=== PATIENT | male | born 1955 | race Caucasian/White ===

== ENCOUNTER 2025-09-23 20:44 | Outpatient (BNV) | payer MEDICARE, MEDICAID, SELFPAY | END 2025-09-26 14:52 | PROVIDERS: Admitting Provider Psychiatry & Neurology Psychiatry; PCP Internal Medicine; Visit Provider Internal Medicine Cardiovascular Disease | DX: Z13.6 Encounter for screening for cardiovascular disorders (principal); Z86.79 Personal history of other diseases of the circulatory system | CPT/HCPCS: 93010 ==

== ENCOUNTER 2025-09-23 20:44 | Outpatient (BNV) | payer MEDICARE, MEDICAID, SELFPAY | END 2025-09-25 08:00 | PROVIDERS: Admitting Provider Psychiatry & Neurology Psychiatry; Visit Provider Radiology Diagnostic Radiology | DX: R09.89 Other specified symptoms and signs involving the circulatory and respiratory systems (principal) | CPT/HCPCS: 71046 ==

== ENCOUNTER 2025-09-23 20:44 | Inpatient (IN) | payer MEDICARE, MEDICAID, SELFPAY ==
--- OUTSIDE RECORDS SUMMARY | 2025-02-27 17:30 | XMS_ITS ---
Author Organization [facility] Address [address] [place], [place] [phone] Care Team Providers Care Blow Machine Tender Starch Spraying Name Role Phone DR Ilya Gusman Primary Care Provider Mitzi Amado, Anit Unavailable [phone] REASON FOR VISIT SS NO PA NEEDED [...] Active Encounters Encounter Location Date Provider Diagnosis [facility] [address] [place], [place] [phone] 02/27/2025 Nataliit Aneudy Hypersomnia, unspecified G47.10 ; [...] Adolfo HANNON JDOB:[birth year] (70 yo M)Acc No.[id number]:02/27/2025 Progress Notes Patient: Adolfo MORIN Provider: Leonel Amado MD, LUIS ARMANDO, FACS :1955 A ge:69 Y S ex:Male Date:02/27/2025 Address:[address] [place] [address] Pcp:DR Ilya Gusman Subjective: * Chief Complaints: [...] Electronic signature of Aaron Amado MD on 09/23/2025 at 09:01 PM EDT Sign off status: Pending * Provider: Leonel Amado MD, LUIS ARMANDO, FACS Date: 0 02/27/2025 Generated for Hialry davis/Ayo/Juanis on: 1 09:01 PM EDT
--- OUTSIDE RECORDS SUMMARY | 2025-05-07 17:30 | XMS_ITS ---
Author Organization [facility] Address [address] [place], [place] [phone] Care Team Providers Care Medical Educator Name Role Phone DR Ilya Gusman Primary Care Provider Aaron Ponce Unavailable [phone] REASON FOR VISIT CPAP INTO BIPAP NO PA NEEDED Encounters Encounter Location Date Provider Diagnosis [facility] [address] [place], [place] [phone] 05/07/2025 Aaron Amado Plan Of Treatment No Information Progress Notes * Adolfo HANNONDOB:[birth year] (70 yo M)Acc No.[id number]:05/07/2025 Progress Notes Patient: Adolfo MORIN Eliza Provider: Leonel Amado MD, LUIS ARMANDO, FACS :1955 A ge:69 Y S ex:Male Date:05/07/2025 Address:[address] [place], [place] [phone] Pcp:DR Ilya Gusman Subjective: * Chief Complaints: * 1 . CPAP INTO BIPAP NO PA NEEDED. * Medical History: Objective: * Vitals: Assessment: Plan: * Treatment: * Images: * Electronic signature of Aaron Amado MD on 09/23/2025 at 08:51 PM EDT Sign off status: Pending * Provider: Leonel Amado MD, LUIS ARMANDO, FACS Date: 0 05/07/2025 Generated for Printi ng/Fachrystalg/eTransmitting on: 1 08:51 PM EDT
--- OUTSIDE RECORDS SUMMARY | 2025-06-18 16:30 | XMS_ITS ---
Author Organization [facility] Address [address] [place], [place] [phone] Care Team Providers Care Airline Transport Pilot Name Role Phone DR Ilya Gusman Primary Care Provider Mitzi Amado, Anit Unavailable [phone] REASON FOR VISIT CPAP INTO BIPAP NO [...] Active Encounters Encounter Location Date Provider Diagnosis [facility] [address] [place], [place] [phone] 06/18/2025 Nataliit Aneuyd Obstructive sleep ap chinyere (adult) (pediatric) G47.33 [...] Adolfo HANNON JDOB:[birth year] (70 yo M)Acc No.[id number]:06/18/2025 Progress Notes Patient: Adolfo MORIN Provider: Leonel Amado MD, LUIS ARMANDO, FACS :1955 A ge:69 Y S ex:Male Date:06/18/2025 Address:[address] [place] [address] Pcp:DR Ilya Gusman Subjective: * Chief Complaints: [...] of Aaron Amado MD on 09/23/2025 at 08:54 PM EDT Sign off status: Pending * Provider: Leonel Amado MD, LUIS ARMANDO, FACS Date: 0 06/18/2025 Generated for Hilary davis/Ayo/Devanitting on: 1 08:54 PM EDT
--- OUTSIDE RECORDS SUMMARY | 2025-07-07 07:10 | XMS_ITS ---
Author Organization [facility] Address [address] [place] [phone] Care Team Providers Care Test Operator Name Role Phone DR Ilya Gusman Primary Care Provider Aaron Ponce Unavailable [phone] REEVES RESULTS Encounters Encounter Location Date Provider Diagnosis [facility] [address] [phone] 07/07/2025 Aaron Amado Plan Of Treatment No Information Progress Notes * Adolfo HANNONDOB:[birth year] (70 yo M)Acc No.[id number]:07/07/2025 Progress Notes Patient: Adolfo MORIN Provider: Leonel Amado MD, LUIS ARMANDO, FACS :1955 A ge:69 Y S ex:Male Date:07/07/2025 Address:[address] [place], [place] [phone] Pcp:DR Ilya Gusman Subjective: * Chief Complaints: * [address] REEVES RESULTS. * Medical History: Objective: * Vitals: Assessment: Plan: * Treatment: * Images: * Electronic signature of Aaron Amado MD on 09/23/2025 at 08:55 PM EDT Sign off status: Pending * Provider: Leonel Amado MD, LUIS ARMANDO, FACS Date: 0 07/07/2025 Generated for Printi ng/Fachrystalg/eTransmitting on: 1 08:55 PM EDT
--- OUTSIDE RECORDS SUMMARY | 2025-08-26 17:30 | XMS_ITS ---
Author Organization [facility] Address [address] [place], [place] [phone] Care Team Providers Care Pca Name Role Phone DR Ilya Gusman Primary Care Provider Mitzi Amado, Anit Unavailable [phone] REASON FOR VISIT ASV SS Encounters Encounter Location Date Provider Diagnosis [facility] [address] [place], [place] [phone] 08/26/2025 Nataliit Aneudy Primary central slee p apnea G47.31 Assessments Encounter Date Diagnosis (ICD Code) Assessment Notes Treatment Notes Treatment Clinical Notes Section Notes 08/26/2025 Primary central sleep apnea (ICD-10 - G47.31) Plan Of Treatment No Information Progress Notes * Adolfo HANNONDOB:[birth year] (70 yo M)Acc No.[id number]:08/26/2025 Progress Notes Patient: [place] ORELLANA Adolfo Kay Provider: Leonel Amado MD, LUIS ARMANDO, FACS :1955 A ge:70 Y S ex:Male Date:08/26/2025 Address:[address] [place] [address] Pcp:DR Ilya Gusman Subjective: * Chief Complaints: * 1 . ASV SS. * Medical History: Objective: * Vitals: Assessment: * Assessment: 1. P rimary central sleep apnea - G47.31 (Primary) Plan: * Treatment: * Procedure Codes: 9 5811 POLYSOMNOGRAPHY W/CPAP, Modifiers: 52 * Images: * Electronic signature of Aaron Amado MD on 09/23/2025 at 08:56 PM EDT Sign off status: Pending * Provider: Leonel Amado MD, LUIS ARMANDO, FACS Date: Generated for Hilary davis/Ayo/Devanitting on: 08:56 PM EDT
--- OUTSIDE RECORDS SUMMARY | 2025-09-08 06:10 | XMS_ITS ---
Author Organization [facility] Address [address] [place], [place] [id number] Care Team Providers Care Security Expert Name Role Phone DR Ilya Gusman Primary Care Provider Mitzi Amado, Anit Unavailable [phone] Allergies Allergen (clinical drug ingredient) Drug/Non Drug [...] 09/08/2025 Encounters Encounter Location Date Provider Diagnosis [facility] [address] [phone] 09/08/2025 Aaron Amado Obstructive sleep apnea (adult) [...] 40.5 I will review with our sleep tanbark laborer if this patient would qualify for remede procedure versus inspire. Dictated by Misael Gill PA-C 09/08/2025 Primary central sleep apnea (ICD-10 - G47.31) The patient's recent ASV titration was Inconclusive as the patient was unable to tolerate the titration. Given the patient had mixed apnea on his original polysomnogram with a central index of 40.5 I will review with our sleep tanbark laborer if this patient would qualify for remede procedure versus inspire. Dictated by Misael Gill PA-C 09/08/2025 Other insomnia (ICD-10 - G47.09) The patient's recent ASV titration was Inconclusive as the patient was unable to tolerate the titration. Given the patient had mixed apnea on his original polysomnogram with a central index of 40.5 I will review with our sleep tanbark laborer if this patient would qualify for remede procedure versus inspire. Dictated by Misael Gill PA-C 09/08/2025 Other heart failure (ICD-10 - I50.89) The patient's recent ASV titration was Inconclusive as the patient was unable to tolerate the titration. Given the patient had mixed apnea on his original polysomnogram with a central index of 40.5 I will review with our sleep tanbark laborer if this patient would qualify for remede procedure versus inspire. Dictated by Misael Jairo PA-C Plan Of Treatment Next Appt Details Follow Up: prn, Reason: Progress Notes * Adolfo HANNON JDOB:[birth year] (70 yo M)Acc No.[id number]:09/08/2025 Progress Notes Patient: Adolfo MORIN Provider: Leonel Amado MD, LUIS ARMANDO, FACS :1955 A ge:70 Y S ex:Male Date:09/08/2025 Address:[address] [place] [address] Pcp:DR Ilya Gusman Subjective: * Chief Complaints: [...] 40.5 I will review with our sleep tanbark laborer if this patient would qualify for [...] FACS Date: Generated for Hilary davis/Ayo/eTransmitting on: 08:54 PM EDT History and Physical Notes * HPI (History [...]
--- OUTSIDE RECORDS SUMMARY | 2025-09-22 10:28 | XMS_ITS | Encounter Summary ---
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 Discontinued Start Date/Time: 09/23/25 1325 Number of Occurrences: Until Specified Order Questions: Select Supplements: Glucerna Shake Vanilla Supplement Frequency 2 times per day at breakfast and lunch Nutrition supplements NSA Magic Cup Vanilla; 1 time per day at dinner: Until Discontinued Frequency: Until Discontinued Start Date/Time: 09/23/25 1326 Number of Occurrences: Until Specified Order Questions: Select Supplements: NSA Magic Cup Vanilla Supplement Frequency 1 time per day at dinner Allergies[1] PMH: Past Medical History[2] Last TPN Order: TPN Medication Recent History (Show up to 1 orders; newest on the left.) None Anthropometrics: Height: 175.3 cm (5' 9.02 ) Actual Weight: 81.6 kg (179 lb 14.3 oz) Weight Method: (unknown method) BMI (Calculated): 26.6 [place] Body Weight (Calc): 72.6 % IBW: 112 % Weight Change: Per EMR, weight down 5.6 kg/6% unintentional weight loss from 03/11/25 to 09/23/25 (6months). Usual Body Weight: (Pt reports was 225 lb (111.3 kg) in 11/2023. Pt reports lost 45 lb, dropping to 180 lb (81.8 kg).) Weight Tax Economist Admission: 0 % Weight (Last 10) 09/22/2025 1004 Weight: 81.6 kg (180 lb) Wt Readings from Last 3 Encounters: 09/23/25 81.6 kg (179 lb 14.3 oz) 09/03/25 81.6 kg (180 lb) 08/16/25 81.6 kg (180 lb) Per EMR 05/04/25: 86.6 kg (190 lb 14.7 oz--hosp admission) 03/11/25: 87.2 kg (190 lb--ED) 09/21/24: 88.5 kg (195 lb--ED) 12/11/23: 102 kg (224 lb--clinical encounter) Per BI OMR: 09/08/20: 93.1 kg (205 lb) Estimated Nutrition Needs: Estimated Energy Needs Energy Equation: kcal/kg (range) Weight Used for Energy Calculation: 81.6 kg (179 lb 14.3 oz) (Actual BW) Calorie Ranges (kcal/kg): 25-30 (weight loss history) Calorie Low End (kcal/day): 2039 Calorie High End (kcal/day): [address] Equation (Overweight or Obese Patients): 1577 Estimated Protein Needs Weight Used for Protein Calculation: 72.8 kg (160 lb 6.9 oz) ([place] BW) Protein Single Value: 1.3 Protein Single Calc (g/day): 95 g/day Fluid Needs Weight Used for Fluid Calculation: 75 kg (165 lb 4.5 oz) (Adjusted BW due to overweight) Fluid Single Value: 30 Fluid Single Calc (mL/day): 2249 Pertinent Labs: Lab Results Component Value Date NA 140 09/23/2025 K 3.5 09/23/2025 CL 108 09/23/2025 CO2 23 (L) 09/23/2025 BUN 16 09/23/2025 CREATININE 0.70 09/23/2025 GLUCOSE 99 09/23/2025 CALCIUM 8.6 09/23/2025 PHOS 3.7 08/17/2025 MG 2.0 09/22/2025 HGBA1C 5.5 09/23/2025 TRIG 86 08/17/2025 Scheduled Medications: Scheduled Meds:Scheduled Medications[3] Continuous Infusions:Infusions Meds[4] PRN Meds:.PRN Medications[5] GI: Last BM Date: 09/22/25 Gastrointestinal (WDL): Within Defined Limits Skin: 09/23/25: No documented pressure injuries on flowsheet. Edema: Peripheral Vascular Peripheral Vascular (WDL): Within Defined Limits Peripheral Vascular (WDL): Within Defined Limits Nutrition History: Diet Recall?: Yes This commercial lines underwriter met with patient at bedside. Pt reports a very poor appetite for greater than a year, some times not eating at all. Pt reports he has been enjoying fruit. Pt reports 45 lb weight loss since November 2023. Pt denies any food allergies. Pt does not add salt to foods. Reports lost 100 lbs several years ago and has been off Metformin for the past 10 years for his diabetes. Reports his mostrecent HGBA1C at 5.5. Pt does not check Glucose at home. Breakfast: skips Lunch: 1 Ensure or Protein drink Snack: peaches, apple, banana Dinner: (will only consume 3-4 times/wk) frozen meal or frozen pizza Beverages: Ensure, water, cranberry juice, does not drink milk Home Nutrition Support?: None Based on diet recall suspect pt's PO intake has met less than 50% of estimated needs for greater than 1 month prior to admission. Inpatient Data: General Intake: Other (Comment) (Incomplete meal data. Pt reports consumed 100% of cheese omelet, Beninese muffin and coffee at breakfast this morning, 09/23.) Dentition: Dentition: Adequate Nutrition Focused Physical Exam: (Per visual finding, remainder of pt's body covered at the time of this commercial lines underwriter's visit.) Muscle Depletion Moravian region (Temporalis muscle): Well Nourished Fat Depletion Orbital Region (Orbital Fat Pads): Well Nourished Cheek Region (Buccal Fat Pads): Well Nourished PES Statement: Diagnosis 1: Problem (1): Predicted inadequate energy intake Related to: acute illness, chronic illness, poor appetite as evidenced by: diet recall/history, other (comment) (Pt reports very poor PO intake for greater than 1 year, some times not eating at all. Suspect pt has met less than 50% of estimated energy needsfor greater than 1 month.) Diagnosis 2: Problem (2): Unintended weight loss Related to: poor appetite, chronic illness as evidenced by: other (comment) (Pt reports poor PO intake with 45 lb weight loss since November 2023.) Diagnosis 3: Interventions and Coordination of Care: Meals and Snacks: Encourage oral intake as able, Encourage high protein/high calorie foods, Other (comment) (Consider adding 2 gram Sodium diet to currrent diet order given hx of CHF. Pt does not addsalt to his foods.) Vitamin and Mineral Recommendations: other (comment) (Pt receiving Iron, Folic Acid, Thiamine and Vitamin D3. Consider MVI with minerals due to very poor PO intake prior to admission.) Coordination of Care: Recommend obtain daily weights, Discussed with nursing Supplements Recommended Oral Nutrition Supplement (1): 237 ml Vanilla Glucerna--10g protein, 100 calories per serving Oral Nutrition Supplement Frequency (1): Lunch, Dinner Recommended Oral Nutrition Supplement (2): Vanilla No Sugar Added Magic Cup ice cream--9g protein, 280 calories per serving Oral Nutrition Supplement Frequency (2): Dinner Recommended Oral Nutrition Supplement (3): Sugar-Free Grape Gelaten--20g protein, 80 calories per serving Oral Nutrition Supplement Frequency (3): Dinner Monitoring/Evaluation: PO intake, supplement intake, weight, skin status, electrolyte and renal profile, glucose, acceptance of supplementation Follow up Date: 09/29/25 Signed by: Pao Lopez RD 09/23/25 1:31 PM [1] Allergies Allergen Reactions Sulfa (Sulfonamide Antibiotics) Hives Bee Venom Protein (Honey Bee) Swelling Fluoxetine Hallucinations and Mental Status Change Identified As: From Prozac Hallucinating Sulfamethoxazole-Trimethoprim Hives and Unknown Venom-Yellow Jacket Swelling [2] Past Medical History: Diagnosis Date Alcohol abuse, uncomplicated 04/19/2021 Atrial fibrillation ([facility]) Bipolar disorder, unspecified ([facility]) 06/27/2021 Cancer ([facility]) PROSTATE Chronic back pain Colitis Colon polyp Coronary artery disease Hemorrhage of anus and rectum 05/10/2024 Hyperlipidemia, unspecified 10/24/2020 Hypertension Opioid dependence with current use ([facility]) 04/18/2021 Opioid dependence, uncomplicated ([facility]) 02/25/2023 Other psychoactive substance use, unspecified with withdrawal, unspecified ([facility]) 01/09/2024 Other pulmonary embolism without acute cor pulmonale ([facility]) 04/06/2024 ICD-10 Qualified Code(s): I26.99 - Other pulmonary embolism without acute cor pulmonale; Acute cor pulmonale presence - without acute cor pulmonale; Chronicity - acute; Pulmonary embolism type - unspecified; Pulmonary edema with congestive heart failure ([facility]) 03/09/2025 RLS (restless legs syndrome) Sleep apnea, unspecified 10/03/2020 Supraventricular tachycardia 10/03/2020 Type 2 diabetes mellitus without complications ([facility]) 09/15/2020 [3] acetaminophen, 650 mg, Oral, Q6H NEDA apixaban, 5 mg, Oral, BID atorvaSTATin, 40 mg, Oral, QHS baclofen, 5 mg, Oral, TID cholecalciferol, 1,000 Units, Oral, Daily diltiazem, 240 mg, Oral, QAM DULoxetine, 60 mg, Oral, BID ferrous sulfate, 325 mg, Oral, Daily with breakfast folic acid, 1 mg, Oral, Daily insulin lispro, 0-10 Units, Subcutaneous, QHS (2200) insulin lispro, 0-12 Units, Subcutaneous, TID (0800,1200,1700) isosorbide mononitrate ER, 30 mg, Oral, Daily lidocaine, 1 patch, Topical, Q24H pantoprazole, 40 mg, Oral, Daily before breakfast sodium chloride, 3 mL, Intravenous, Q12H NEDA QUEtiapine, 200 mg, Oral, BID thiamine, 100 mg, Oral, Daily [4] [5] polyethylene glycol OR bisacodyl OR bisacodyl dextrose oral gel OR dextrose 50% OR dextrose 50% OR glucagon (human recombinant) [] diazePAM FOLLOWED BY diazePAM fluticasone propionate HYDROmorphone HYDROmorphone melatonin naloxone ondansetron OR ondansetron Insert and Maintain Peripheral IV AND sodium chloride AND sodium chloride * Jade Clara [facility] - 09/22/2025 1:15 PM EDTAssociated Order(s): BEHAVIORAL HEALTH CRISIS EVALUATION Behavioral Health Crisis Consult - Initial Assessment Patient: Adolfo Zaragoza : 1955 Admit Date: 09/22/2025 Date of Consult: 09/22/2025 Time of Consult: 1:15 PM Consult Requested by: Kg Mccollum MD Reason for Consult: Reason for Consult: depression and alcohol use Chief Complaint Patient presents with Dizziness History of Present Illness: Patient is a 70 y.o. male with past medical and psychiatric history as listed who presented to the hospital on 09/22/2025 for Dizziness. Behavioral Health is consulted forassessment. Adolfo reports that he came to the hospital because he has been thinking about suicide and because he knows when he needs help. He reports that main precipitant for his distress is the loss of a friend (his cousin's ) to suicide two days ago. This person reportedly ended her life while she was in a hospital in [place] and it was very unexpected. Mahendra goes on to say that he has had [place] otherdeaths in [place] over the last two months. Its hitting me more and more. I have lost a lot of people. Last night, it hit me and took me out of nowhere. Mahendra says he has attempted suicide twice in the past. I am only still here because they have caught me in time. Mahendra says that he has overdosed on meds once and he says that he hung self in a shower in a hospital around 2-3 years ago while medically admitted. When asked about a current plan for suicide, Mahendra says he has so many plans . He says that he was most recently thinking about overdosing. He says he has a lot of pills and could easily end his life. Mahendra reports that alcohol use has not been a recent problem for him and he says that he does not need a detox now. He admits that he has been drinking over the last couple of days since getting the bad news. I didn't drink a lot, but I was drinking. Normally, I don't drink or use drugs now. He says that drinking was a past problem, but not now. Medical History: has a past medical history of Alcohol abuse, uncomplicated (04/19/2021), Atrial fibrillation, Bipolar disorder, unspecified (06/27/2021), Cancer, Chronic back pain, Colitis, Colon polyp, Coronary artery disease, Hemorrhage of anus and rectum (05/10/2024), Hyperlipidemia, unspecified (10/24/2020), Hypertension, Opioid dependence with current use (04/18/2021), Opioid dependence, uncomplicated (02/25/2023), Other psychoactive substance use, unspecified with withdrawal, unspecified(01/09/2024), Other pulmonary embolism without acute cor pulmonale (HCC) (04/06/2024), Pulmonary edema with congestive heart failure (03/09/2025), RLS (restless legs syndrome), Sleep apnea, unspecified (10/03/2020), Supraventricular tachycardia (10/03/2020), and Type 2 diabetes mellitus without complications (HCC) (09/15/2020). has a past surgical history that includes Back surgery (Bilateral); Shoulder surgery; left ankle surgery; Tonsillectomy; Appendectomy; Colonoscopy (07/21/2025); and Brain surgery. Psychiatric History: Adolfo has been diagnosed with PTSD. Adolfo has been hospitalized many times in his life; he says he is not sure how many. Most recenttime was around ten years ago. Mahendra says that he takes Seroquel and Cymbalta prescribed by his psychiatrist at an agency he cannot recall the name of in [place]. He also has therapist, Aleida Willis, at this unknown agency in [place]. Home Medications: Prescriptions Prior to Admission[1] Seroquel and Cymbalta Current Medications: Scheduled Medications[2] Seroquel and Cymbalta Current PRN: PRN Medications[3] None now Allergies: Sulfa (sulfonamide antibiotics), Bee venom protein (honey bee), Fluoxetine, Sulfamethoxazole-trimethoprim, and Venom-yellow jacket Substance Use History Alcohol: Substance and Sexual Activity Alcohol Use Not Currently Alcohol Details Questions Responses Alcohol frequency Past regular use Alcohol method Drink Adolfo reports hx of alcohol dependence. He denies a drinking problem now, though he says that hehas been drinking over the last two days. Tobacco: reports that he has never smoked. He has never used smokeless tobacco. E-Cigarettes/Vaping Questions Responses E-Cigarette/Vaping Use Never User Passive Exposure No Counseling Given No E-Cigarette/Vaping Substances Questions Responses Nicotine No THC No CBD No Flavoring No Other No E-Cigarette/Vaping Devices Questions Responses Disposable No Pre-filled or Refillable Cartridge No Refillable Tank No Pre-filled Pod No Other: reports no history of drug use. Adolfo denies substance use. Prescription Medications: Adolfo denies abuse of prescription medications. Substances: Adolfo denies substance use. Amphetamine Details Questions Responses Amphetamine frequency Never used Barbituate Details Questions Responses Barbiturate frequency Never used Benzodiazepine Details Questions Responses Benzodiazepine frequency Never used Cannabis Details Questions Responses Cannabis frequency Never used Cocaine Details Questions Responses Cocaine frequency Never used Ecstasy Details Questions Responses Ecstasy frequency Never used Hallucinogen Details Questions Responses Hallucinogen frequency Never used Heroin Details Questions Responses Heroin frequency Never used Inhalent Details Questions Responses Inhalant frequency Never used Narcotic Details Questions Responses Narcotic frequency Never used Opiate Details Questions Responses Opiate frequency Never used PCP Details Questions Responses PCP frequency Never used Sedative Details Questions Responses Sedative frequency Never used Other Drug Details Questions Responses Other drug frequency Never used Medical and Psychiatric Consequences: Psychosocial Consequences: Social History: Mahendra lives in [place] by himself. He has no current partner. He says that his of cancer five years ago. Mahendra has two children and four grandchildren; they all live nearby. Mahendra says he is retired and not working now. 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 Mahendra says he graduated high school, and he also did some college. He denies any legal issues. No hx for Mahendra. Socioeconomic History Marital status: Adolfo is presently single. His of cancer five years ago. Employment Status: Retired Adolfo is not working now and says he is retired. History: History status: No No hx for Adolfo. Personal History: has no history on file for sexual activity. Family History: Family History[4] Did not discuss family hx with Mahendra. Physical Exam: Patient Vitals for the past 24 hrs: BP Temp Temp src Pulse Resp SpO2 Height Weight 09/22/25 1230 (!) 174/97 97.8 ??F (36.6 ??C) Oral 78 16 98 % -- -- 09/22/25 1004 (!) 173/105 99.4 ??F (37.4 ??C) Oral (!) 93 18 97 % 1.753 m (5' 9 ) 81.6 kg (180 lb) Mental Status Exam: Mental Status Exam General Appearance: Appears stated age, well-developed, appropriately groomed and no apparent distress. Level of Consciousness: Alert. Orientation: Oriented to person, place, time and situation. Attitude and Behavior: Cooperative and friendly. Eye Contact: Good eye contact. Psychomotor Activity: Normal. Speech: Normal rate, volume, rhythm, coherence and articulation. Language: Normal. Mood: Patient description of mood: depressed. Affect: Full range. Thought Process and Associations: Logical. Thought Content: Positive for suicidal ideation, suicidal plan and suicidal means. No self- injurious ideation, no homicidal ideation and not actively hallucinating. Attention Span: Appropriate. Memory: Intact recall, intact short-term and intact long-term. Fund of Knowledge: Normal. Cognition: Normal. Insight: Poor. Judgment: Poor. Labs, Imaging & Other Studies: Laboratory: Recent lab results have been reviewed by others. Results for orders placed or performed during the hospital encounter of 09/22/25 (from the past 24 hours) Comprehensive Metabolic Panel Result Value Ref Range Sodium 144 135 - 146 mmol/L Potassium 3.6 3.4 - 5.2 mmol/L Chloride 108 98 - 110 mmol/L Total CO2/Bicarbonate 21 (L) 24 - 32 mmol/L Anion Gap 15 2 - 15 mmol/L BUN 10 7 - 24 mg/dL Creatinine, Blood 0.80 0.60 - 1.30 mg/dL Glucose, Blood 117 (H) 50 - 100 mg/dL Calcium 9.5 8.5 - 10.5 mg/dL Total Protein 7.7 6.2 - 8.2 g/dL Albumin, Blood 4.6 3.4 - 5.2 g/dL AST (SGOT) 24 11 - 40 U/L ALT (SGPT) 16 7 - 40 U/L Alkaline Phosphatase 54 40 - 130 U/L Total Bilirubin 0.4 0.2 - 1.2 mg/dL Estimated GFR(CKD-EPI) 96 mL/min/BSA CBC and Differential Result Value Ref Range WBC 4.50 3.90 - 10.80 K/uL RBC 4.69 4.42 - 5.73 M/uL Hemoglobin 14.5 14.0 - 17.3 g/dL Hematocrit 41.7 40.1 - 51.0 % MCH 30.9 25.6 - 32.2 pg MCHC 34.8 32.0 - 36.0 g/dL MCV 89 83 - 96 fL RDW 14.5 (H) 11.5 - 14.0 % Platelet Count 260 154 - 369 K/uL Neutrophil 58.0 % Lymphocyte 29.8 % Monocyte 7.6 % Eosinophil 3.1 % Basophil 1.3 % Immature Granulocyte ([place], Myelo, Promyelocyte) 0.2 % Absolute Neutrophil Count 2.61 1.68 - 7.99 K/uL Absolute Immature Granulocyte ([place], Myelo, Promyelocyte) 0.01 0.00 - 0.09 K/uL Absolute Lymphocyte Count 1.34 0.66 - 4.75 K/uL Absolute Monocyte Count 0.34 0.16 - 1.40 K/uL Absolute Eosinophil Count 0.14 0.00 - 0.60 K/uL Absolute Basophil Count 0.06 0.00 - 0.32 K/uL Gold Top Result Value Ref Range Gold Top Tube Received Magnesium Result Value Ref Range Magnesium, Blood 2.0 1.6 - 2.6 mg/dL Lipase Result Value Ref Range Lipase 18 3 - 68 U/L Troponin (once) Result Value Ref Range Troponin T HS 14 <=19 ng/L NT-proBNP Result Value Ref Range NT-ProBNP 488 <900 pg/mL PT-INR Result Value Ref Range Prothrombin Time 14.0 12.1 - 14.6 s INR 1.0 <5.0 APTT Result Value Ref Range PTT 26 23 - 36 s Ethanol Result Value Ref Range Alcohol 210 (H) <10 mg/dL TSH Result Value Ref Range TSH 0.54 0.30 - 4.50 uIU/mL Beta-Hydroxybutyrate Result Value Ref Range Beta-hydroxybutrate <0.20 0.05 - 6.00 mmol/L Lactic Acid with 3 Hour Reflex Result Value Ref Range Lactic Acid, Venous, Peripheral 2.9 (H) 0.5 - 2.0 mmol/L Covid/Flu/RSV (Rapid) Result Value Ref Range Coronavirus SARS-CoV-2 Negative Negative Influenza A Negative Negative Influenza B Negative Negative RSV by PCR Negative Negative Blood Gas, Venous Result Value Ref Range pH, Venous 7.53 (H) 7.33 - 7.43 pCO2, Venous 26 (L) 38 - 50 mmHg pO2, Venous 47 30 - 50 mmHg HCO3, Venous 22 22 - 29 mmol/L Total CO2, Venous 23 22 - 27 mmol/L O2 Saturation, Venous 82.2 60 - 85 % Base Excess, Venous -0.6 -2.0 - 2.0 mmol/L EKG: No studies were reviewed. C-SSRS Screener and SAFE-T: Management of Suicide Risk: Because the risks of inpatient hospitalization outweighs its benefits, the patient is actively suicidal, and the patient is unwilling to maintain his/her safety in the community, the patient will be further assessed for psychiatric inpatient level of care Assessment: Adolfo is 70yo male who was seen for telehealth assessment in the emergency room at [facility] where he presented due to depression, alcohol use, and +SI with multiple plans and hx of attempts. He reports that recent deaths in his friend [place], along with the suicide of cousin's two days ago, have really made him feel depressed and like he just doesn't want to live any more. Hereports having providers and he reports medication compliance, but these do not seem to be meeting his needs now. Adolfo reports that current mood is depressed. He talks about suicide euphoria and the beautiful terrible feeling that comes when you are about to end your life. He reports wanting to experience that again, and he says he has written about it in a book. Mahendra denies HI now and ever. He denies AH and VH. Mahendra reports recent poor sleep and recent decreased appetite. Adolfo is dressed in hospital clothing and appears clean. He has long hair and facial hair. He isalert and oriented. He appears sad and depressed throughout interaction. He is tearful and cries attimes. Affect is full range. Thought content includes SI with plans. Thought process is clear now. No psychosis reported nor noted. No issues with memory or concentration. Insight is poor. Judgment is impaired. Adolfo meets criteria for Section 12 and requires IPLOC placement for safety and stabilization due to +SI with multiples plans and means. He is aware that plan is for psychiatric placement and is agreeable to the same. Recommendations: Pursue [facility] placement for Mahendra Intervention and Stabilization Services Requested: None now. Disposition Recommendation: [facility] Behavioral Health Diagnosis: F43.10 PTSD Duration: 90 minutes Discussed with Program Specialist: No Discussed with Medical Team: Yes . Dr Chun MD in ED Signed by: ROBERTO Knapp [1] (Not in a hospital admission) [2] [3] [4] Family History Problem Relation Name Age of Onset Colon cancer Neg Hx documented in this encounter ED Notes * Kamilah Smith RN - 09/22/2025 10:02 AM EDT Pt to the ER with c/o dizziness and nausea since yesterday, states its worse today. States feels like the room is spinning. No other complaints * Kg Mccollum MD - 09/22/2025 10:00 AM EDT [facility] ED Provider Note Arrival Date: 09/22/2025 HISTORY OF PRESENT ILLNESS Weak History provided by: Patient physician scribe used: No PAST MEDICAL HISTORY Past Medical History[1] SOCIAL HISTORY Social History[2] FAMILY HISTORY Family History[3] SURGICAL HISTORY Past Surgical History[4] CURRENT MEDICATIONS Patient Medication List Previous Medications APIXABAN (ELIQUIS) 5 MG TAB ATORVASTATIN (LIPITOR) 40 MG TABLET CHOLECALCIFEROL, VITAMIN D3, 25 MCG (1,000 UNIT) CAPSULE DILTIAZEM (CARDIZEM CD) 240 MG 24 HR CAPSULE DULOXETINE (CYMBALTA) [address] CAPSULE FERROUS SULFATE 325 (65 FE) MG TABLET FLUTICASONE PROPIONATE (FLONASE) 50 MCG/ACTUATION NASAL SPRAY FOLIC ACID (FOLVITE) 1 MG TABLET FUROSEMIDE (LASIX) 40 MG TABLET HYDROMORPHONE (DILAUDID) 8 MG TABLET ISOSORBIDE MONONITRATE ER (IMDUR) 30 MG 24 HR TABLET NALOXONE (NARCAN) 4 MG/ACTUATION SPRY NASAL SPRAY OMEPRAZOLE (PRILOSEC) [address] CAPSULE QUETIAPINE (SEROQUEL) 200 MG TABLET SENNOSIDES (SENOKOT) 8.6 MG TABLET THIAMINE (VITAMIN B-1) 100 MG TABLET ALLERGIES Allergies[5] PHYSICAL EXAM ED Triage Vitals [09/22/25 1004] BP Heart Rate Resp Temp SpO2 (!) 173/105 (!) 93 18 99.4 ??F (37.4 ??C) 97 % General: Alert. HEENT: EOMI. Neck: Supple. Respiratory: No Respiratory Distress. Cardiovascular/Chest: Chest non-tender Abdomen: Soft Back: No midline tenderness. Extremity: No edema Neurological: Oriented, without focal deficits Physical Exam Vitals and nursing note reviewed. DATA Labs URINALYSIS WITH URINE CULTURE REFLEX - Abnormal Result Value Ref Range Color, Urine Yellow Yellow Clarity, Urine Clear Clear pH, Urine 7.0 (*) 5.0 - 6.0 Protein, Urine 1+ Negative, 1+ Glucose, Urine Negative Negative Ketone, Urine Negative Negative, Trace Bilirubin, Urine Negative Negative Urobilinogen, Urine Negative 0.2-1.0 mg/dL Blood, Urine Negative Negative Leukocyte Esterase, Urine Negative Negative Nitrite, Urine Negative Negative Specific [place], Urine 1.019 1.005 - 1.030 White Blood Cells, Urine 0-2 <5 cells/HPF Red Blood Cell, Urine 0-2 <2 cells/HPF Bacteria Urine None Seen None Seen Mucous Threads Trace None Seen, Trace COMPREHENSIVE METABOLIC PANEL - Abnormal Sodium 144 135 - 146 mmol/L Potassium 3.6 3.4 - 5.2 mmol/L Comment: Samples tested in serum may exhibit a higher potassium value than those tested on plasma. Our current range is based on plasma testing. Chloride 108 98 - 110 mmol/L Total CO2/Bicarbonate 21 (*) 24 - 32 mmol/L Anion Gap 15 2 - 15 mmol/L BUN 10 7 - 24 mg/dL Creatinine, Blood 0.80 0.60 - 1.30 mg/dL Glucose, Blood 117 (*) 50 - 100 mg/dL Calcium 9.5 8.5 - 10.5 mg/dL Total Protein 7.7 6.2 - 8.2 g/dL Albumin, Blood 4.6 3.4 - 5.2 g/dL AST (SGOT) 24 11 - 40 U/L ALT (SGPT) 16 7 - 40 U/L Alkaline Phosphatase 54 40 - 130 U/L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 Glucose (09/22/2025 6:06 PM EDT) Glucose, POC 82 75 - 140 mg/dL 09/22/2025 6:07 PM EDT [facility] Comment: @Serial Sdwkhl=[id number] @Digital Content Manager [id number] Blood 09/22/2025 6:06 PM EDT 09/22/2025 6:07 PM EDT us Kameron Braswell MD POCT ORDERABLES - DEVICE Final R esult Performing Organization Address [facility] Co de Phone Number [facility] [address] [place] [phone], [place] * Drug Screen, Urine (09/22/2025 5:01 PM EDT) Amphetamines Screen, Urine Negative Negative 09/22/2025 5:44 PM EDT [facility] Barbiturates Screen, Urine Negative Negative 09/22/2025 5:44 PM EDT [facility] Benzodiazepine Screen, Urine Negative Negative 09/22/2025 5:44 PM [facility] Buprenorphine Screen, Urine Negative Negative 09/22/2025 5:44 PM EDT [facility] Cannabinoids Screen, Urine Negative Negative 09/22/2025 5:44 PM [facility] Cocaine Metabolite Screen, Urine Negative Negative 09/22/2025 5:44 PM EDT [facility] Fentanyl Screen, Urine Negative Negative 09/22/2025 5:44 PM EDT [facility] Methadone Screen, Urine Negative Negative 09/22/2025 5:44 PM EDT [facility] Opiates Screen, Urine Negative Negative 09/22/2025 5:44 PM EDT [facility] Oxycodone Screen, Urine Negative Negative 09/22/2025 5:44 PM EDT [facility] Propoxyphene Screen, Urine Negative Negative 09/22/2025 5:44 PM EDT [facility] Tricyclics Screen Negative Negative 025 5:44 PM EDT [facility] Comment 09/22/2025 5:44 PM EDT [facility] Comment: The cut-off concentration for a positive result for each drug is listed below: Drug Cut-off value Amphetamines >1000 ng/mL Barbiturates >200 ng/mL Benzodiazepines >300 ng/mL Buprenorphine >5 ng/mL Cannabinoids >50 ng/mL Cocaine >300 ng/mL Fentanyl >5.0 ng/mL Opiates >300 ng/mL Methadone >300 ng/mL Oxycodone >100 ng/mL This is only a screening; positive results are not confirmed by a second method; The results must be used for medical purposes only. Urine URINE SPECIMEN / Unknown Collection / Unknown 09/22/2025 5:01 PM EDT 09/22/2025 5:05 PM EDT us Kameron Braswell MD URINE ORDERABLES Final Result Performing Organization Address City/[facility] Co de Phone Number [facility] [address] [place] [phone], [place] * hs-Troponin T (09/22/2025 3:39 PM EDT) Troponin T HS 12 <=19 ng/L 09/22/2025 4:18 PM EDT [facility] Blood PERIPHERAL BLOOD SPECIMEN / Unknown Venipuncture / Unknown 09/22/2025 3:39 PM EDT 09/22/2025 3:52 PM EDT us Kameron Braswell MD LAB BLOOD ORDERABLES Final Resul t Performing Organization Address [facility] Co de Phone Number [facility] [address] [place] [phone], * (ABNORMAL) Lactic Acid with 3 Hour Reflex (09/22/2025 3:37 PM EDT) Lactic Acid, Venous, Peripheral 3.4(H) 0.5 - 2.0 mmol/L 09/22/2025 4:16 PM EDT [facility] Blood PERIPHERAL BLOOD SPECIMEN / Unknown Venipuncture / Unknown 09/22/2025 3:37 PM EDT 09/22/2025 3:53 PM EDT Kg Mccollum MD LAB BLOOD ORDERABLES Final Result Performing Organization Address [facility] Co de Phone Number [facility] [address] [place] [address], [place] * (ABNORMAL) Lactic Acid, Reflexed (09/22/2025 1:31 PM EDT) Lactic Acid, Venous, Peripheral 3.2(H) 0.5 - 2.0 mmol/L 09/22/2025 2:08 PM EDT [facility] Blood Venipuncture / Unknown 09/22/2025 1:31 PM EDT 09/22/2025 1:34 PM EDT us Kg Mccollum MD LAB BLOOD ORDERABLES Final Result Performing Organization Address [facility] Phone Number [facility] [address] [place] [phone], [place] * (ABNORMAL) Urinalysis with Reflex to Urine Culture (09/22/2025 1:05 PM EDT) Color, Urine Yellow Yellow 09/22/2025 1:20 PM EDT [facility] Clarity, Urine Clear Clear 09/22/2025 1:20 PM EDT [facility] pH, Urine 7.0(H) 5.0 - 6.0 09/22/2025 1:20 PM EDT [facility] Protein, Urine 1+ Negative, 1+ 09/22/2025 1:20 PM EDT [facility] Glucose, Urine Negative Negative 09/22/2025 1:20 PM EDT [facility] Ketone, Urine Negative Negative, Trace 09/22/2025 1:20 PM T [facility] Bilirubin, Urine Negative Negative 09/22/2025 1:20 PM EDT [facility] Urobilinogen, Urine Negative 0.2-1.0 mg/dL 09/22/2025 1:20 PM EDT [facility] Blood, Urine Negative Negative 09/22/2025 1:20 PM EDT [facility] Leukocyte Esterase, Urine Negative Negative 09/22/2025 1:20 PM EDT [facility] Nitrite, Urine Negative Negative 09/22/2025 1:20 PM EDT [facility] Specific [place], Urine 1.019 1.005 - 1.030 09/22/2025 1:20 PM EDT [facility] White Blood Cells, Urine 0-2 <5 cells/HPF 09/22/2025 1:20 PM EDT [facility] Red Blood Cell, Urine 0-2 <2 cells/HPF 09/22/2025 1:[facility] Bacteria Urine None Seen None Seen 09/22/2025 1:20 PM [facility] Mucous Threads Trace None Seen, Trace 09/22/2025 1:20 PM [facility] Urine MID-STREAM URINE SPECIMEN / Unknown Collection / Unknown 09/22/2025 1:05 PM EDT 09/22/2025 1:12 PM EDT us Kg Mccollum MD URINE ORDERABLES Final Res ult Performing Organization Address City/State/[facility] Co de Phone Number [facility] [address] [place] [phone], [place] * CT Head WO IV Contrast (09/22/2025 11:15 AM EDT) Anatomical Region Laterality Modality Head Computed Tomogra phy 09/22/2025 11:1 5 AM EDT Impressions 09/22/2025 11:18 AM EDT 1. No evidence of acute intracranial pathology. 2. Similar generalized atrophy and chronic small vessel disease. 3. Mild to moderate chronic paranasal sinusitis. Signed By: Hector Figueroa on 09/22/2025 11:18 AM on [id number] Narrative 09/22/2025 11:18 AM EDT EXAM: CT HEAD WO CONTRAST INDICATION: weakness, AMS. TECHNIQUE: Axial CT imaging of the head/brain was performed without intravenous contrast. Coronal and sagittal reformatted images were produced from the axial data set. All CT scans at this facility utilize one or more dose reduction techniques such as automated exposure control, ma/kV adjustment per patient size, or iterative reconstruction technique. COMPARISON: MRI brain dated 08/17/2025. FINDINGS: CEREBRAL PARENCHYMA: No evidence of hemorrhage, mass effect or acute territorial infarction. There is diffuse parenchymal atrophy. Bilateral periventricular and subcortical white matter hypodensities are nonspecific but frequently sequelae of chronic small vessel ischemic change (microangiopathy). CEREBELLUM AND BRAINSTEM: Within normal limits. VENTRICLES: Within normal limits. EXTRA-AXIAL SPACES: No abnormal collection. VISUALIZED PARANASAL SINUSES: There is scattered mucus thickening throughout the paranasal sinuses. No air-fluid levels visualized. MASTOIDS: Predominantly clear. VISUALIZED ORBITS: Within normal limits. CALVARIUM: No evidence of acute fracture. No suspicious lesion. OTHER: Intracranial arterial calcifications are noted. Procedure Note Hector Figueroa MD - 09/22/2025 EXAM: CT HEAD WO CONTRAST INDICATION: weakness, AMS. TECHNIQUE: Axial CT imaging of the head/brain was performed without intravenous contrast. Coronal and sagittal reformatted images were produced from the axial data set. All CT scans at this facility utilize one or more dose reduction techniques such as automated exposure control, ma/kV adjustment per patient size, or iterative reconstruction technique. COMPARISON: MRI brain dated 08/17/2025. FINDINGS: CEREBRAL PARENCHYMA: No evidence of hemorrhage, mass effect or acute territorial infarction. There is diffuse parenchymal atrophy. Bilateral periventricular and subcortical white matter hypodensities are nonspecific but frequently sequelae of chronic small vessel ischemic change (microangiopathy). CEREBELLUM AND BRAINSTEM: Within normal limits. VENTRICLES: Within normal limits. EXTRA-AXIAL SPACES: No abnormal collection. VISUALIZED PARANASAL SINUSES: There is scattered mucus thickening throughout the paranasal sinuses. No air-fluid levels visualized. MASTOIDS: Predominantly clear. VISUALIZED ORBITS: Within normal limits. CALVARIUM: No evidence of acute fracture. No suspicious lesion. OTHER: Intracranial arterial calcifications are noted. IMPRESSION: 1.No evidence of acute intracranial pathology. 2.Similar generalized atrophy and chronic small vessel disease. 3.Mild to moderate chronic paranasal sinusitis. Signed By: Hector Figueroa on 09/22/2025 11:18 AM on [id number] Kg Mccollum MD IMG CT ORDERABLES Final Re sult * (ABNORMAL) Blood Gas, Venous (09/22/2025 10:49 AM EDT) pH, Venous 7.53(H) 7.33 - 7.43 09/22/2025 10:56 AM EDT [facility] pCO2, Venous 26(L) 38 - 50 mmHg 09/22/2025 10:56 AM EDT [facility] pO2, Venous 47 30 - 50 mmHg 09/22/2025 10:56 AM EDT [facility] HCO3, Venous 22 22 - 29 mmol/L 09/22/2025 10:56 AM EDT [facility] Total CO2, Venous 23 22 - 27 mmol/L 09/22/2025 10:56 AM [facility] O2 Saturation, Venous 82.2 60 - 85 % 09/22/2025 10:56 AM [facility] Base Excess, Venous -0.6 -2.0 - 2.0 mmol/L 09/22/2025 10:56 AM [facility] Blood Venipuncture / Unknown 09/22/2025 10:49 AM EDT 09/22/2025 10:53 AM EDT us Kg Mccollum MD LAB BLOOD ORDERABLES Final Result Performing Organization Address City/State/[facility] Co de Phone Number [facility] [address] [place] [address], * Covid/Flu/RSV (Rapid) (09/22/2025 10:49 AM EDT) Coronavirus SARS-CoV-2 Negative Negative 09/22/2025 11:36 AM EDT [facility] Influenza A Negative Negative 09/22/2025 11:36 AM T [facility] Influenza B Negative Negative 09/22/2025 11:36 AM [facility] RSV by PCR Negative Negative 09/22/2025 11:36 AM T [facility] Respiratory NASOPHARYNGEAL SWAB / Unknown Collection / Unknown 09/22/2025 10:49 AM EDT 09/22/2025 10:52 AM EDT Narrative [facility] - 09/22/2025 11:36 AM EDT Test performed with [employer] GeneXpert SARS-CoV-2 PCR assay, which has received emergency use authorization (EUA) by the U.S. Food and Drug Administration. Negative results do not preclude SARS-CoV-2 infection and should not be used as the sole basis for treatment or other patient management decisions. us Kg Mccollum MD BODY FLUIDS AND STOOLS ORD ERABLES Final Result Performing Organization Address [facility] Co de Phone Number [facility] [address] [place] [phone], [place] * (ABNORMAL) Lactic Acid with 3 Hour Reflex (09/22/2025 10:49 AM EDT) Lactic Acid, Venous, Peripheral 2.9(H) 0.5 - 2.0 mmol/L 09/22/2025 11:24 AM EDT [facility] Blood PERIPHERAL BLOOD SPECIMEN / Unknown Venipuncture / Unknown 09/22/2025 10:49 AM EDT 09/22/2025 10:52 AM EDT us Kg Mccollum MD LAB BLOOD ORDERABLES Final Result Performing Organization Address [facility] Co de Phone Number [facility] [address] [place] [phone], [place] * XR Chest 2 Vw (09/22/2025 10:37 AM EDT) Anatomical Region Laterality Modality Chest Digital Radiogra phy 09/22/2025 10:3 9 AM EDT Impressions 09/22/2025 10:47 AM EDT NO ACUTE PROCESS DEMONSTRATED. Signed By: Mayank Dumont on 09/22/2025 10:47 AM on [id number] Narrative 09/22/2025 10:47 AM EDT EXAMINATION: XR CHEST 2 VW CLINICAL HISTORY: Weakness and change mental status COMPARISON: July 23 radiograph, May 06 CT FINDINGS: The lungs are clear. There is no pleural effusion or pneumothorax demonstrated. Mediastinal structures are within normal limits. The osseous structures are intact. There are spinal rods with pedicle screws upper thoracic spine. Procedure Note Mayank Dumont MD - 09/22/2025 EXAMINATION: XR CHEST 2 VW CLINICAL HISTORY: Weakness and change mental status COMPARISON: July 23 radiograph, May 06 CT FINDINGS: The lungs are clear. There is no pleural effusion or pneumothorax demonstrated. Mediastinal structures are within normal limits. The osseous structures are intact. There are spinal rods with pedicle screws upper thoracic spine. IMPRESSION: NO ACUTE PROCESS DEMONSTRATED. Signed By: Mayank Dumont on 09/22/2025 10:47 AM on [id number] Kg Mccollum MD IMG DIAGNOSTIC IMAGING ORD ERABLES Final Result * Salicylate Level (09/22/2025 10:18 AM EDT) Salicylate Level, Blood <1 <30 mg/dL 09/22/2025 2:46 PM EDT [facility] Blood PERIPHERAL BLOOD SPECIMEN / Unknown Venipuncture / Unknown 09/22/2025 10:18 AM EDT 09/22/2025 10:22 AM EDT Kg Mccollum MD LAB BLOOD ORDERABLES Final Result Performing Organization Address [facility] de Phone Number [facility] [address] [place] [phone], * (ABNORMAL) Acetaminophen Level (09/22/2025 10:18 AM EDT) Acetaminophen Result,Blood <5(L) 10 - 30 ug/mL 09/22/2025 2:46 PM EDT [facility] Blood PERIPHERAL BLOOD SPECIMEN / Unknown Venipuncture / Unknown 09/22/2025 10:18 AM EDT 09/22/2025 10:22 AM EDT Kg Mccollum MD LAB BLOOD ORDERABLES Final Result Performing Organization Address [facility] Co de Phone Number [facility] [address] [place] [phone], [place] * Procalcitonin (09/22/2025 10:18 AM EDT) Procalcitonin 0.05 <0.15 ng/mL 09/22/2025 3:04 PM EDT [facility] Blood PERIPHERAL BLOOD SPECIMEN / Unknown Venipuncture / Unknown 09/22/2025 10:18 AM EDT 09/22/2025 10:22 AM EDT us Kg Mccollum MD LAB BLOOD ORDERABLES Final Result Performing Organization Address [facility]/ZIP Co de Phone Number [facility] [address] [place] [phone], [place] * Beta-Hydroxybutyrate (09/22/2025 10:18 AM EDT) Beta-hydroxybu trate <0.20 0.05 - 6.00 mmol/L 09/22/2025 11:31 AM EDT [facility] Blood PERIPHERAL BLOOD SPECIMEN / Unknown Venipuncture / Unknown 09/22/2025 10:18 AM EDT 09/22/2025 10:22 AM EDT us Kg Mccollum MD LAB BLOOD ORDERABLES Final Result Performing Organization Address [facility] Phone Number [facility] [address] [place] [phone], [place] * TSH (09/22/2025 10:18 AM EDT) TSH 0.54 0.30 - 4.50 uIU/mL 09/22/2025 10:56 AM EDT [facility] Blood PERIPHERAL BLOOD SPECIMEN / Unknown Venipuncture / Unknown 09/22/2025 10:18 AM EDT 09/22/2025 10:22 AM EDT Kg Mccollum MD LAB BLOOD ORDERABLES Final Result Performing Organization Address [facility] Co de Phone Number [facility] [address] [place] [phone], [place] * (ABNORMAL) Ethanol (09/22/2025 10:18 AM EDT) Alcohol 210(H) <10 mg/dL 09/22/2025 11:31 AM EDT [facility] Blood PERIPHERAL BLOOD SPECIMEN / Unknown Venipuncture / Unknown 09/22/2025 10:18 AM EDT 09/22/2025 10:22 AM EDT us Kg Mccollum MD LAB BLOOD ORDERABLES Final Result Performing Organization Address [facility] de Phone Number [facility] [address] [place] [phone], [place] * APTT (09/22/2025 10:18 AM EDT) PTT 26 23 - 36 s 09/22/2025 10:36 AM EDT [facility] Comment: Unfractionated heparin therapeutic range for hospitalized patients: [id number] 60 to 80 seconds Blood PERIPHERAL BLOOD SPECIMEN / Unknown Venipuncture / Unknown 09/22/2025 10:18 AM EDT 09/22/2025 10:22 AM EDT us Kg Mccollum MD LAB BLOOD ORDERABLES Final Result Performing Organization Address [facility] Number [facility] [address] [place] [phone], [place] * PT-INR (09/22/2025 10:18 AM EDT) Prothrombin Time 14.0 12.1 - 14.6 s 09/22/2025 10:36 AM EDT [facility] INR 1.0 <5.0 09/22/2025 10:36 AM EDT [facility] Blood PERIPHERAL BLOOD SPECIMEN / Unknown Venipuncture / Unknown 09/22/2025 10:18 AM EDT 09/22/2025 10:22 AM EDT us Kg Mccollum MD LAB BLOOD ORDERABLES Final Result Performing Organization Address [facility] Phone Number [facility] [address] [place] [phone], [place] * NT-proBNP (09/22/2025 10:18 AM EDT) Pathologist [facility] NT-ProBNP 488 <900 pg/mL 09/22/2025 10:56 AM EDT [facility] Blood PERIPHERAL BLOOD SPECIMEN / Unknown Venipuncture / Unknown 09/22/2025 10:18 AM EDT 09/22/2025 10:22 AM EDT Kg Mccollum MD LAB BLOOD ORDERABLES Final Result [facility] [address] [place] [phone], [place] * Troponin (once) (09/22/2025 10:18 AM EDT) [facility] Troponin T HS 14 <=19 ng/L 09/22/2025 10:56 AM EDT [facility] Blood PERIPHERAL BLOOD SPECIMEN / Unknown Venipuncture / Unknown 09/22/2025 10:18 AM EDT 09/22/2025 10:22 AM EDT Kg Mccollum MD LAB BLOOD ORDERABLES Final Result Performing Organization Address [facility]/ZIP Co de Phone Number [facility] [address] [place] [address], [place] * Lipase (09/22/2025 10:18 AM EDT) [facility] Lipase 18 3 - 68 U/L 09/22/2025 11:31 AM EDT [facility] Blood PERIPHERAL BLOOD SPECIMEN / Unknown Venipuncture / Unknown 09/22/2025 10:18 AM EDT 09/22/2025 10:22 AM EDT Kg Mccollum MD LAB BLOOD ORDERABLES Final Result Performing Organization Address City/[facility]/ZIP Co de Phone Number [facility] [address] [place] [phone], [place] * Magnesium (09/22/2025 10:18 AM EDT) Pathologist [facility] Magnesium, Blood 2.0 1.6 - 2.6 mg/dL 09/22/2025 10:56 AM EDT [facility] Blood PERIPHERAL BLOOD SPECIMEN / Unknown Venipuncture / Unknown 09/22/2025 10:18 AM EDT 09/22/2025 10:22 AM EDT us Kg Mccollum MD LAB BLOOD ORDERABLES Final Result [facility] [address] [place] [phone], [place] * Gold Top (09/22/2025 10:18 AM EDT) [facility] Gold Top Tube Received 09/22/2025 11:09 AM EDT [facility] Blood PERIPHERAL BLOOD SPECIMEN / Unknown Venipuncture / Unknown 09/22/2025 10:18 AM EDT 09/22/2025 10:22 AM EDT us Kg Mccollum MD LAB BLOOD ORDERABLES Final Result [facility] [address] [place] [phone], [place] * (ABNORMAL) CBC and Differential (09/22/2025 10:18 AM EDT) [facility] WBC 4.50 3.90 - 10.80 K/uL 09/22/2025 10:27 AM [facility] RBC 4.69 4.42 - 5.73 M/uL 09/22/2025 10:27 AM [facility] Hemoglobin 14.5 14.0 - 17.3 g/dL 09/22/2025 10:27 AM [facility] Hematocrit 41.7 40.1 - 51.0 % 09/22/2025 10:27 AM [facility] MCH 30.9 25.6 - 32.2 pg 09/22/2025 10:27 AM [facility] MCHC 34.8 32.0 - 36.0 g/dL 09/22/2025 10:27 AM [facility] MCV 89 83 - 96 fL 09/22/2025 10:27 AM [facility] RDW 14.5(H) 11.5 - 14.0 % 09/22/2025 10:27 AM [facility] Platelet Count 260 154 - 369 K/uL 09/22/2025 10:27 AM [facility] Neutrophil 58.0 % 09/22/2025 10:27 AM [facility] Lymphocyte 29.8 % 09/22/2025 10:27 AM [facility] Monocyte 7.6 % 09/22/2025 10:27 AM [facility] Eosinophil 3.1 % 09/22/2025 10:27 AM [facility] Basophil 1.3 % 09/22/2025 10:27 AM [facility] Immature Granulocyte ([place], Myelo, Promyelocyte) 0.2 % 09/22/2025 10:27 AM [facility] Absolute Neutrophil Count 2.61 1.68 - 7.99 K/uL 09/22/2025 10:27 AM [facility] Absolute Immature Granulocyte ([place], Myelo, Promyelocyte) 0.01 0.00 - 0.09 K/uL 09/22/2025 10:27 AM [facility] Absolute Lymphocyte Count 1.34 0.66 - 4.75 K/uL 09/22/2025 10:27 AM [facility] Absolute Monocyte Count 0.34 0.16 - 1.40 K/uL 09/22/2025 10:27 AM [facility] Absolute Eosinophil Count 0.14 0.00 - 0.60 K/uL 09/22/2025 10:27 AM [facility] Absolute Basophil Count 0.06 0.00 - 0.32 K/uL 09/22/2025 10:27 AM [facility] Blood PERIPHERAL BLOOD SPECIMEN / Unknown Venipuncture / Unknown 09/22/2025 10:18 AM EDT 09/22/2025 10:22 AM EDT us Kg Mccollum MD LAB BLOOD ORDERABLES Final Result [facility] [address] [place] [address], [place] * (ABNORMAL) Comprehensive Metabolic Panel (09/22/2025 10:18 AM EDT) Sodium 144 135 - 146 mmol/L 09/22/2025 10:56 AM [facility] Potassium 3.6 3.4 - 5.2 mmol/L 09/22/2025 10:56 AM [facility] Comment:Samples tested in se rum may exhibit a higher potassium value than those tested on plasma. Our current range is based on plasma testing. Chloride 108 98 - 110 mmol/L 09/22/2025 10:56 AM [facility] Total CO2/Bicarbonate 21(L) 24 - 32 mmol/L 09/22/2025 10:56 AM [facility] Anion Gap 15 2 - 15 mmol/L 09/22/2025 10:56 AM [facility] BUN 10 7 - 24 mg/dL 09/22/2025 10:56 AM [facility] Creatinine, Blood 0.80 0.60 - 1.30 mg/dL 09/22/2025 10:56 AM [facility] Glucose, Blood 117(H) 50 - 100 mg/dL 09/22/2025 10:56 AM [facility] Calcium 9.5 8.5 - 10.5 mg/dL 09/22/2025 10:56 AM [facility] Total Protein 7.7 6.2 - 8.2 g/dL 09/22/2025 10:56 AM [facility] Albumin, Blood 4.6 3.4 - 5.2 g/dL 09/22/2025 10:56 AM [facility] AST (SGOT) 24 11 - 40 U/L 09/22/2025 10:56 AM [facility] ALT (SGPT) 16 7 - 40 U/L 09/22/2025 10:56 AM [facility] Alkaline Phosphatase 54 40 - 130 U/L 09/22/2025 10:56 AM [facility] Total Bilirubin 0.4 0.2 - 1.2 mg/dL 09/22/2025 10:56 AM EDT [facility] Estimated GFR(CKD-EPI) 96 mL/min/BSA 09/22/2025 10:56 AM EDT [facility] Blood PERIPHERAL BLOOD SPECIMEN / Unknown Venipuncture / Unknown 09/22/2025 10:18 AM EDT 09/22/2025 10:22 AM EDT us Kg Mccollum MD LAB BLOOD ORDERABLES Final Result [facility] [address] [place] [address], documented in this encounter Visit Diagnoses Diagnosis Suicidal ideation- Primary Alcoholic intoxication without complication Weakness Other malaise and fatigue Depression, unspecified depression type Alcohol withdrawal syndrome without complication (CMS-HCC) Suicidal ideation Elevated lactic acid level Post traumatic stress disorder (PTSD) [F43.10] Alcohol use, unspecified with intoxication, unspecified [F10.929] documented in this encounter Admitting Diagnoses Diagnosis Suicidal ideation documented in this encounter Administered Medications Inactive Administered Medications - up to 3 most recent administrations Medication Order MAR Action Action Date Dose Rate Site 0.9% sodium chloride (NS) BOLUS 1,000 mL 1,000 mL, Intravenous, Once, On Emmanuelle 09/22/25 at 1026, For 1 dose, STAT, Administer over 1 Hours New Bag 09/22/2025 11:29 AM EDT 1,000 mL 1000 mL/hr 0.9% sodium chloride (NS) BOLUS 1,000 mL 1,000 mL, Intravenous, Once, On Emmanuelle 09/22/25 at 1417, For 1 dose, STAT, Administer over 1 Hours New Bag 09/22/2025 2:30 PM EDT 1,000 mL 1000 mL/hr 0.9% sodium chloride (NS) BOLUS 1,000 mL 1,000 mL, Intravenous, Once, On Emmanuelle 09/22/25 at 1533, For 1 dose, STAT, Administer over 1 Hours New Bag 09/22/2025 4:21 PM EDT 1,000 mL 1000 mL/hr acetaminophen (TYLENOL) tablet 650 mg 650 mg, Oral, Every 6 hours scheduled, First dose on Emmanuelle 09/22/25 at 1800, Until Discontinued Given 09/23/2025 5:57 PM EDT 650 mg Given 09/23/2025 11:20 AM EDT 650 mg Given 09/23/2025 6:26 AM EDT 650 mg apixaban (ELIQUIS) tablet 5 mg 5 mg, Oral, 2 times daily, First dose on Emmanuelle 09/22/25 at 2100, Indications: NonValvular Atrial FibrillationIndications:NonValvular Atrial Fibrillation Given 09/23/2025 8:17 AM EDT 5 mg Given 09/22/2025 9:58 PM EDT 5 mg atorvaSTATin (LIPITOR) tablet 40 mg 40 mg, Oral, At bedtime, First dose on Emmanuelle 09/22/25 at 2100, Until Discontinued Given 09/22/2025 9:58 PM EDT 40 mg baclofen (LIORESAL) tablet 5 mg 5 mg, Oral, 3 times daily, First dose on Emmanuelle 09/22/25 at 2200, Until Discontinued Given 09/23/2025 3:09 PM EDT 5 mg Given 09/23/2025 8:17 AM EDT 5 mg Given 09/22/2025 9:58 PM EDT 5 mg bisacodyl (DULCOLAX) EC tablet 10 mg 10 mg, Oral, Daily PRN, Starting on Fri09/22/25 at 1558, Until Fri09/23/25 at 2033, constipation, 2nd line; Give 12 hours after polyethylene glycol for unrelieved constipation. bisacodyl (DULCOLAX) suppository 10 mg 10 mg, Rectal, Daily PRN, Starting on Fri09/22/25 at 1558, Until Fri09/23/25 at 2033, constipation, To be used if patient NOT tolerating PO cholecalciferol (VITAMIN D3) tablet 1,000 Units 1,000 Units, Oral, Daily, First dose on Emmanuelle 09/22/25 at 1559, Until Discontinued Given 09/23/2025 8:17 AM EDT 1,000 Units Given 09/22/2025 4:18 PM EDT 1,000 Units dextrose (GLUTOSE) 40 % oral gel 15 g of carbohydrates 15 g of carbohydrates, Oral, Every 15 min PRN, Starting on Fri09/22/25 at 1558, Until Fri09/23/25 at 2033, low blood sugar, Use if patient does NOT have an altered level of consciousness, is tolerating PO, and blood glucose is 70 mg/dL or less. Repeat until blood glucose is above 70 mg/dL, up to two times. If blood glucose remains 70 mg/dL or less, proceed to IV dextrose. May substitute 4 oz of fruit juice/non-diet soda based on patient's preference. dextrose 50% (D50W) injection 12.5 g 25 mL (12.5 g), Intravenous, As needed, Starting on Emmanuelle 09/22/25 at 1558, Until Fri09/23/25 at 2033, Use if patient is NPO, has IV access, does NOT have an altered level of consciousness, and blood glucose is 70 mg/dL or less. Admin every 15 min PRN. Repeat until blood glucose is above 70 mg/dL. dextrose 50% (D50W) injection 25 g 50 mL (25 g), Intravenous, As needed, Starting on Emmanuelle 09/22/25 at 1558, Until Fri09/23/25 at 2033, Use if patient is NPO, has IV access, WITH an altered level of consciousness, and blood glucose is 70 mg/dL or less. Admin every 15 min PRN. Repeat until blood glucose is above 70 mg/dL. diazePAM (VALIUM) tablet 10 mg 10 mg, Oral, Every 2 hour PRN, Starting on Emmanuelle 09/22/25 at 1413, Until Emmanuelle 09/22/25 at 2012, CIWA > 10, Do not give if lethargic, SBP less than 90, MAP less than or equal to 65, or RR less than 10. Given 09/22/2025 5:32 PM EDT 10 mg diazePAM (VALIUM) tablet 10 mg 10 mg, Oral, Every 4 hours PRN, Starting on Emmanuelle 09/22/25 at 2013, Until Fri09/23/25 at 2033, CIWA > 10, Do not give if lethargic, SBP less than 90, MAP less than or equal to 65, or RR less than 10. Given 09/23/2025 3:35 PM EDT 10 mg Given 09/23/2025 6:35 AM EDT 10 mg Given 09/22/2025 9:58 PM EDT 10 mg dilTIAZem (CARDIZEM CD) 24 hr capsule 240 mg 240 mg, Oral, Every morning, First dose on Fri09/22/25 at 1559, Until Discontinued Given 09/23/2025 8:17 AM EDT 240 mg Given 09/22/2025 4:17 PM EDT 240 mg DULoxetine (CYMBALTA) DR capsule 60 mg 60 mg, Oral, 2 times daily, First dose on Fri09/22/25 at 2100, Until Discontinued Given 09/23/2025 8:17 AM EDT 60 mg Given 09/22/2025 9:58 PM EDT 60 mg ferrous sulfate tablet 325 mg 325 mg, Oral, Daily with breakfast, First dose on Fri09/23/25 at 0800, Until Discontinued Given 09/23/2025 8:17 AM EDT 325 mg folic acid (FOLVITE) tablet 1 mg 1 mg, Oral, Daily, First dose on Emmanuelle 09/22/25 at 1559, Until Discontinued Given 09/23/2025 8:17 AM EDT 1 mg Given 09/22/2025 4:17 PM EDT 1 mg glucagon injection 1 mg 1 mg, Intramuscular, As needed, Starting on Emmanuelle 09/22/25 at 1558, Until Fri09/23/25 at 2033, Use if patient is NPO, does NOT have IV access, and blood glucose is 70 mg/dL or less. Admin every 15 min PRN. Repeat until blood glucose is above 70 mg/dL, up to two times. Caution: glucagon can cause nausea and vomiting. Roll patient on their side when administering to prevent aspiration. HYDROmorphone (DILAUDID) injection 0.5 mg 0.5 mg, Intravenous, Every 3 hours PRN, Starting on Emmanuelle 09/22/25 at 1812, Until Fri09/23/25 at 2033, Rescue Pain - same or higher score 60 min after last PRN opioid dose Given 09/23/2025 12:15 PM EDT 0.5 mg Given 09/23/2025 8:23 AM EDT 0.5 mg Given 09/22/2025 9:48 PM EDT 0.5 mg HYDROmorphone (DILAUDID) tablet 8 mg 8 mg, Oral, Every 8 hours PRN, Starting on Emmanuelle 09/22/25 at 1558, Until Fri09/23/25 at 2033, severe (7-10) pain Given 09/23/2025 3:13 PM EDT 8 mg Given 09/23/2025 6:26 AM EDT 8 mg Given 09/22/2025 4:18 PM EDT 8 mg insulin lispro (HUMALOG KWIKPEN) 100 unit/mL pen 0-10 Units 0-10 Units, Subcutaneous, At bedtime (insulin), First dose on Fri09/22/25 at 2200, Until Discontinued insulin lispro (HUMALOG KWIKPEN) 100 unit/mL pen 0-12 Units 0-12 Units, Subcutaneous, 3 times daily (insulin), First dose on Fri09/22/25 at 1700, Until Discontinued Given 09/23/2025 8:23 AM EDT 2 Units isosorbide mononitrate ER (IMDUR) 24 hr tablet 30 mg 30 mg, Oral, Daily, First dose on Fri09/22/25 at 1559, Until Discontinued Given 09/23/2025 8:17 AM EDT 30 mg Given 09/22/2025 6:07 PM EDT 30 mg lidocaine 4 % patch 1 patch 1 patch, Topical, Administer over 12 Hours, Every 24 hours, First dose on Fri09/22/25 at 1551, Patch should be applied for 12 hours on and 12 hours off. Location(s) to be applied to: back Patch Applied 09/22/2025 4:19 PM EDT 1 patc h Back ondansetron (ZOFRAN) injection 4 mg 4 mg, Intravenous, Every 8 hours PRN, nausea, vomiting, if NOT tolerating PO, Starting on Fri09/22/25 at 1558 Given 09/22/2025 6:22 PM EDT 4 mg ondansetron (ZOFRAN-ODT) disintegrating tablet 4 mg 4 mg, Oral, Every 8 hours PRN, Starting on Fri09/22/25 at 1558, Until Fri09/23/25 at 2033, nausea, vomiting, if tolerating PO pantoprazole (PROTONIX) DR tablet 40 mg 40 mg, Oral, Daily before breakfast, First dose on Fri09/23/25 at 0700, Until Discontinued Given 09/23/2025 6:26 AM EDT 40 mg peripheral line: sodium chloride (NS) 0.9% flush 3 mL, Intravenous, Every 12 hours scheduled, First dose on Emmanuelle 09/22/25 at 2100, Until Discontinued Given 09/23/2025 8:18 AM EDT 3 mL Given 09/22/2025 9:51 PM EDT 3 mL peripheral line: sodium chloride 0.9 % (NS) flush 3 mL, Intravenous, Every 1 min PRN, Starting on Emmanuelle 09/22/25 at 1558, Until Fri09/23/25 at 203, line care polyethylene glycol (MIRALAX) packet 17 g 17 g, Oral, Daily PRN, Starting on Emmanuelle 09/22/25 at 1558, Until Fri09/23/25 at 2033, constipation, 1st line potassium chloride ER (Klor-Con M) ER tablet 40 mEq 40 mEq, Oral, Once, 1 dose, On Emmanuelle 09/22/25 at 1605 Given 09/22/2025 4:17 PM EDT 40 mEq QUEtiapine (SEROquel) tablet 200 mg 200 mg, Oral, 2 times daily, First dose on Emmanuelle 09/22/25 at 2100, Until Discontinued Given 09/23/2025 8:17 AM EDT 200 mg Given 09/22/2025 9:58 PM EDT 200 mg thiamine tablet 100 mg 100 mg, Oral, Daily, First dose on Emmanuelle 09/22/25 at 1559, Until Discontinued Given 09/23/2025 8:17 AM EDT 100 mg Given 09/22/2025 4:18 PM EDT 100 mg documented in this encounter Active and Recently Administered Medications Times are shown in EDT. Scheduled Medication Order 09/21/2025 09/22/2025 09/23/2025 0.9% sodium chloride (NS) BOLUS 1,000 mL (COMPLETED) 1,000 mL, Intravenous, Once, On Emmanuelle 09/22/25 at 1026, For 1 dose, STAT, Administer over 1 Hours 1129 (New Bag - Provider: Rhoda Kimble, DOMINGA)1325 (Stopped - Provider: Rhoda Kimble RN) 0.9% sodium chloride (NS) BOLUS 1,000 mL (COMPLETED) 1,000 mL, Intravenous, Once, On Emmanuelle 09/22/25 at 1417, For 1 dose, STAT, Administer over 1 Hours 1430 (New Bag - Provider: Rhoda Kimble RN)1537 (Stopped - Provider: Ilya Cruz RN) 0.9% sodium chloride (NS) BOLUS 1,000 mL (COMPLETED) 1,000 mL, Intravenous, Once, On Emmanuelle 09/22/25 at 1533, For 1 dose, STAT, Administer over 1 Hours 1621 (New Bag - Provider: Ilya Cruz, DOMINGA)1727 (Stopped - Provider: Ilya Cruz RN) acetaminophen (TYLENOL) tablet 650 mg 650 mg, Oral, Every 6 hours scheduled, First dose on Emmanuelle 09/22/25 at 1800, Until Discontinued 1808 (Not Given - Provider: Magnolia Doe RN - Reason: Patient Refused)2334 (Given - Provider: Angela Horvath RN) 0626 (Given - Provider: Angela Horvath RN)1120 (Given - Provider: Magnolia Doe RN)1757 (Given - Provider: Magnolia Doe RN) apixaban (ELIQUIS) tablet 5 mg 5 mg, Oral, 2 times daily, First dose on Fri09/22/25 at 2100, Indications: NonValvular Atrial Fibrillation 2157 (Given - Provider: Angela Horvath RN) 0817 (Given - Provider: Magnolia Doe RN) atorvaSTATin (LIPITOR) tablet 40 mg 40 mg, Oral, At bedtime, First dose on Fri09/22/25 at 2100, Until Discontinued 2157 (Given - Provider: Angela Horvath RN) baclofen (LIORESAL) tablet 5 mg 5 mg, Oral, 3 times daily, First dose on Fri09/22/25 at 2200, Until Discontinued 2157 (Given - Provider: Angela Horvath RN) 0817 (Given - Provider: Magnolia Doe RN)1509 (Given - Provider: Magnolia Doe RN) cholecalciferol (VITAMIN D3) tablet 1,000 Units 1,000 Units, Oral, Daily, First dose on Fri09/22/25 at 1559, Until Discontinued 1618 (Given - Provider: Ilya Cruz RN) 0817 (Given - Provider: Magnolia Doe RN) dilTIAZem (CARDIZEM CD) 24 hr capsule 240 mg 240 mg, Oral, Every morning, First dose on Fri09/22/25 at 1559, Until Discontinued 1616 (Given - Provider: Ilya Cruz RN) 08 (Given - Provider: Magnolia Doe RN) DULoxetine (CYMBALTA) DR capsule 60 mg 60 mg, Oral, 2 times daily, First dose on Fri09/22/25 at 2100, Until Discontinued 2157 (Given - Provider: Angela Horvath RN) 816 (Given - Provider: Magnolia Doe RN) ferrous sulfate tablet 325 mg 325 mg, Oral, Daily with breakfast, First dose on Fri09/23/25 at 0800, Until Discontinued 816 (Given - Provid er: Magnolia Doe RN) folic acid (FOLVITE) tablet 1 mg 1 mg, Oral, Daily, First dose on Fri09/22/25 at 1559, Until Discontinued 1616 (Given - Provider: Ilya Cruz RN) 816 (Given - Provider: Magnolia Doe RN) insulin lispro (HUMALOG KWIKPEN) 100 unit/mL pen 0-10 Units 0-10 Units, Subcutaneous, At bedtime (insulin), First dose on Fri09/22/25 at 2200, Until Discontinued 2158 (Not Given - Provider: Angela Horvath RN - Reason: Order parameters not met) insulin lispro (HUMALOG KWIKPEN) 100 unit/mL pen 0-12 Units 0-12 Units, Subcutaneous, 3 times daily (insulin), First dose on Fri09/22/25 at 1700, Until Discontinued 1807 (Not Given - Provider: Magnolia Doe RN - Reason: Order parameters not met) 0823 (Given - Provider: Magnolia Doe RN)1208 (Not Given - Provider: Magnolia Doe RN - Reason: Order parameters not met)1756 (Not Given - Provider: Magnolia Doe RN - Reason: Order parameters not met) isosorbide mononitrate ER (IMDUR) 24 hr tablet 30 mg 30 mg, Oral, Daily, First dose on Fri09/22/25 at 1559, Until Discontinued 1806 (Given - Provider: Magnolia Doe RN) 08 (Given - Provider: Magnolia Doe RN) lidocaine 4 % patch 1 patch 1 patch, Topical, Administer over 12 Hours, Every 24 hours, First dose on Emmanuelle 09/22/25 at 1551, Patch should be applied for 12 hours on and 12 hours off. Location(s) to be applied to: back 1619 (Patch Applied - Provider: Ilya Cruz RN) 0429 (Patch Removed - Provider: Angela Horvath RN)1517 (Not Given - Provider: Magnolia Doe, DOMINGA - Reason: Patient Refused) pantoprazole (PROTONIX) DR tablet 40 mg 40 mg, Oral, Daily before breakfast, First dose on Fri09/23/25 at 0700, Until Discontinued 06 (Given - Provid er: Angela Horvath RN) peripheral line: sodium chloride (NS) 0.9% flush(Linked Group 1) 3 mL, Intravenous, Every 12 hours scheduled, First dose on Fri09/22/25 at 2100, Until Discontinued 2150 (Given - Provider: Angela Horvath RN) 0818 (Given - Provider: Magnolia Doe, DOMING[place]) potassium chloride ER (Klor-Con M) ER tablet 40 mEq (COMPLETED) 40 mEq, Oral, Once, 1 dose, On Fri09/22/25 at 1605 1617 (Given - Provider: Ilya Cruz RN) QUEtiapine (SEROquel) tablet 200 mg 200 mg, Oral, 2 times daily, First dose on Fri09/22/25 at 2100, Until Discontinued 2157 (Given - Provider: Angela Horvath RN) 0817 (Given - Provider: Magnolia Doe, DOMINGA) thiamine tablet 100 mg 100 mg, Oral, Daily, First dose on Fri09/22/25 at 1559, Until Discontinued 161 (Given - Provider: Ilya Cruz RN) 0817 (Given - Provider: Magnolia Doe, DOMING[place]) PRN Medication Order 09/21/2025 09/22/2025 09/23/2025 bisacodyl (DULCOLAX) EC tablet 10 mg(Linked Group 2) 10 mg, Oral, Daily PRN, Starting on Emmanuelle 09/22/25 at 1558, Until Fri09/23/25 at 2034, constipation, 2nd line; Give 12 hours after polyethylene glycol for unrelieved constipation. bisacodyl (DULCOLAX) suppository 10 mg(Linked Group 2) 10 mg, Rectal, Daily PRN, Starting on Emmanuelle 09/22/25 at 1558, Until Fri09/23/25 at 2033, constipation, To be used if patient NOT tolerating PO dextrose (GLUTOSE) 40 % oral gel 15 g of carbohydrates(Linked Group 3) 15 g of carbohydrates, Oral, Every 15 min PRN, Starting on Emmanuelle 09/22/25 at 1558, Until Fri09/23/25 at 2033, low blood sugar, Use if patient does NOT have an altered level of consciousness, is tolerating PO, and blood glucose is 70 mg/dL or less. Repeat until blood glucose is above 70 mg/dL, up to two times. If blood glucose remains 70 mg/dL or less, proceed to IV dextrose. May substitute 4 oz of fruit juice/non-diet soda based on patient's preference. dextrose 50% (D50W) injection 12.5 g(Linked Group 3) 25 mL (12.5 g), Intravenous, As needed, Starting on Fri09/22/25 at 1558, Until Fri09/23/25 at 2033, Use if patient is NPO, has IV access, does NOT have an altered level of consciousness, and blood glucose is 70 mg/dL or less. Admin every 15 min PRN. Repeat until blood glucose is above 70 mg/dL. dextrose 50% (D50W) injection 25 g(Linked Group 3) 50 mL (25 g), Intravenous, As needed, Starting on Emmanuelle 09/22/25 at 1558, Until Fri09/23/25 at 2033, Use if patient is NPO, has IV access, WITH an altered level of consciousness, and blood glucose is 70 mg/dL or less. Admin every 15 min PRN. Repeat until blood glucose is above 70 mg/dL. diazePAM (VALIUM) tablet 10 mg ()(Linked Group 4) 10 mg, Oral, Every 2 hour PRN, Starting on Fri09/22/25 at 1413, Until Fri09/22/25 at 2011, CIWA > 10, Do not give if lethargic, SBP less than 90, MAP less than or equal to 65, or RR less than 10. 1732 (Given - Provider: Ilya Cruz RN)2221 (Not Given - Provider: Angela Horvath RN - Reason: Other - Indicate below - Comment: duplicate order, given for Q4hr PRN) diazePAM (VALIUM) tablet 10 mg(Linked Group 4) 10 mg, Oral, Every 4 hours PRN, Starting on Emmanuelle 09/22/25 at 2012, Until Fri09/23/25 at 2033, CIWA > 10, Do not give if lethargic, SBP less than 90, MAP less than or equal to 65, or RR less than 10. 2158 (Given - Provider: Angela Horvath RN) 0635 (Given - Provider: Angela Horvath RN)1535 (Given - Provider: Magnolia Doe, DOM[place]) fluticasone propionate (FLONASE) 50 mcg/actuation nasal spray 1 spray 1 spray, Nasal, Daily PRN, Starting on Emmanuelle 09/22/25 at 1558, Until Fri09/23/25 at 2033, allergies glucagon injection 1 mg(Linked Group 3) 1 mg, Intramuscular, As needed, Starting on Emmanuelle 09/22/25 at 1558, Until Fri09/23/25 at 2033, Use if patient is NPO, does NOT have IV access, and blood glucose is 70 mg/dL or less. Admin every 15 min PRN. Repeat until blood glucose is above 70 mg/dL, up to two times. Caution: glucagon can cause nausea and vomiting. Roll patient on their side when administering to prevent aspiration. HYDROmorphone (DILAUDID) injection 0.5 mg 0.5 mg, Intravenous, Every 3 hours PRN, Starting on Emmanuelle 09/22/25 at 1812, Until Fri09/23/25 at 2033, Rescue Pain - same or higher score 60 min after last PRN opioid dose 1821 (Given - Provider: Magnolia Doe RN)2148 (Given - Provider: Angela Horvath RN) 0823 (Given - Provider: Magnolia Doe, DOMINGA)1215 (Given - Provider: Magnolia Doe, DOMING[place]) HYDROmorphone (DILAUDID) tablet 8 mg 8 mg, Oral, Every 8 hours PRN, Starting on Emmanuelle 09/22/25 at 1558, Until Fri09/23/25 at 2033, severe (7-10) pain 1618 (Given - Provider: Ilya Cruz RN) 0626 (Given - Provider: Angela Horvath RN)1513 (Given - Provider: Magnolia Doe, DOM[place]) melatonin tablet 3 mg 3 mg, Oral, At bedtime as needed, Starting on Emmanuelle 09/22/25 at 1558, Until Fri09/23/25 at 2033, insomnia naloxone (NARCAN) nasal spray 4 mg 4 mg, Intranasal, Every 5 min PRN, Starting on Emmanuelle 09/22/25 at 1558, Until Fri09/23/25 at 2033, opioid overdose ondansetron (ZOFRAN) injection 4 mg(Linked Group 5) 4 mg, Intravenous, Every 8 hours PRN, nausea, vomiting, if NOT tolerating PO, Starting on Emmanuelle 09/22/25 at 1558 1822 (Given - Provider: Magnolia Doe, DOMING[place]) ondansetron (ZOFRAN-ODT) disintegrating tablet 4 mg(Linked Group 5) 4 mg, Oral, Every 8 hours PRN, Starting on Emmanuelle 09/22/25 at 1558, Until Fri09/23/25 at 2033, nausea, vomiting, if tolerating PO 1821 (See Alternative - Provider: Magnolia Doe RN) peripheral line: sodium chloride 0.9 % (NS) flush(Linked Group 1) 3 mL, Intravenous, Every 1 min PRN, Starting on Emmanuelle 09/22/25 at 1558, Until Fri09/23/25 at 2033, line care polyethylene glycol (MIRALAX) packet 17 g(Linked Group 2) 17 g, Oral, Daily PRN, Starting on Emmanuelle 09/22/25 at 1558, Until Fri09/23/25 at 2033, constipation, 1st line Linked Groups Order Group 1: Insert and Maintain Peripheral IV (CANCELED) Routine, Continuous, Starting on Emmanuelle 09/22/25 at 1559, Until Specified And peripheral line: sodium chloride (NS) 0.9% flushJump to med 3 mL, Intravenous, Every 12 hours scheduled, First dose on Fri09/22/25 at 2100, Until Discontinued And peripheral line: sodium chloride 0.9 % (NS) flushJump to med 3 mL, Intravenous, Every 1 min PRN, Starting on Emmanuelle 09/22/25 at 1558, Until Fri09/23/25 at 2033, line care Group 2: polyethylene glycol (MIRALAX) packet 17 gJump to med 17 g, Oral, Daily PRN, Starting on Emmanuelle 09/22/25 at 1558, Until Fri09/23/25 at 2033, constipation, 1st line Or bisacodyl (DULCOLAX) EC tablet 10 mgJump to med 10 mg, Oral, Daily PRN, Starting on Emmanuelle 09/22/25 at 1558, Until Fri09/23/25 at 2033, constipation, 2nd line; Give 12 hours after polyethylene glycol for unrelieved constipation. Or bisacodyl (DULCOLAX) suppository 10 mgJump to med 10 mg, Rectal, Daily PRN, Starting on Fri09/22/25 at 1558, Until Fri09/23/25 at 2033, constipation, To be used if patient NOT tolerating PO Group 3: dextrose (GLUTOSE) 40 % oral gel 15 g of carbohydratesJump to med 15 g of carbohydrates, Oral, Every 15 min PRN, Starting on Emmanuelle 09/22/25 at 1558, Until Fri09/23/25 at 2033, low blood sugar, Use if patient does NOT have an altered level of consciousness, is tolerating PO, and blood glucose is 70 mg/dL or less. Repeat until blood glucose is above 70 mg/dL, up to two times. If blood glucose remains 70 mg/dL or less, proceed to IV dextrose. May substitute 4 oz of fruit juice/non-diet soda based on patient's preference. Or dextrose 50% (D50W) injection 12.5 gJump to med 25 mL (12.5 g), Intravenous, As needed, Starting on Emmanuelle 09/22/25 at 1558, Until Fri09/23/25 at 2033, Use if patient is NPO, has IV access, does NOT have an altered level of consciousness, and blood glucose is 70 mg/dL or less. Admin every 15 min PRN. Repeat until blood glucose is above 70 mg/dL. Or dextrose 50% (D50W) injection 25 gJump to med 50 mL (25 g), Intravenous, As needed, Starting on Emmanuelle 09/22/25 at 1558, Until Fri09/23/25 at 2033, Use if patient is NPO, has IV access, WITH an altered level of consciousness, and blood glucose is 70 mg/dL or less. Admin every 15 min PRN. Repeat until blood glucose is above 70 mg/dL. Or glucagon injection 1 mgJump to med 1 mg, Intramuscular, As needed, Starting on Emmanuelle 09/22/25 at 1558, Until Fri09/23/25 at 2033, Use if patient is NPO, does NOT have IV access, and blood glucose is 70 mg/dL or less. Admin every 15 min PRN. Repeat until blood glucose is above 70 mg/dL, up to two times. Caution: glucagon can cause nausea and vomiting. Roll patient on their side when administering to prevent aspiration. Group 4: diazePAM (VALIUM) tablet 10 mg ()Jump to med 10 mg, Oral, Every 2 hour PRN, Starting on Emmanuelle 09/22/25 at 1413, Until Emmanuelle 09/22/25 at 2011, CIWA > 10, Do not give if lethargic, SBP less than 90, MAP less than or equal to 65, or RR less than 10. Followed by diazePAM (VALIUM) tablet 10 mgJump to med 10 mg, Oral, Every 4 hours PRN, Starting on Emmanuelle 09/22/25 at 2013, Until Fri09/23/25 at 2033, CIWA > 10, Do not give if lethargic, SBP less than 90, MAP less than or equal to 65, or RR less than 10. Group 5: ondansetron (ZOFRAN) injection 4 mgJump to med 4 mg, Intravenous, Every 8 hours PRN, nausea, vomiting, if NOT tolerating PO, Starting on Emmanuelle 09/22/25 at 1558 Or ondansetron (ZOFRAN-ODT) disintegrating tablet 4 mgJump to med 4 mg, Oral, Every 8 hours PRN, Starting on Emmanuelle 09/22/25 at 1558, Until Fri09/23/25 at 2033, nausea, vomiting, if tolerating PO documented in this encounter Additional Health Concerns Infection Onset Date Last Indicated Resolved Time Rule-Out Respiratory Virus 09/22/2025 09/22/2025 1 11:36 AM EDT documented as of this encounter Care Teams Insurance Risk Analyst Relationship Specialty Start Date End Date Ilya Gusman MD [address] [place] [phone] PCP - General 02/12/24 documented as of this encounter
--- NOTE | ~2025-09-23 | XR_ITS ---
CLINICAL HISTORY: upper respoiratory congestion 2 view chest x-ray Comparison: None provided Findings: The lungs are clear. Heart size is normal. No acute fracture. Upper thoracic fusion. IMPRESSION: 1. No acute findings. This document has been electronically signed by: Lynn Mcmahan MD on 09/25/2025 08:39:04
--- OUTSIDE RECORDS SUMMARY | 2025-09-23 20:50 | XMS_ITS | Encounter Summary ---
Author Organization [facility] [address] [place] [address] Care Team Providers Care Wastewater Plant Operator Name Role Phone Tc Story MD Unavailable [phone] Ilya Gusman MD Primary Care Provider [phone] Encounter Details Date Type Department Care Team (Late st Contact Info) Description 03/05/2019 Lab Requisition [facility] [address] [place] [phone] Tc Gasca MD [address] [place] [phone] Illness Social History Tobacco Use Types Packs/Day Years Used Date Smoking Tobacco: Passive Smo ke Exposure - Never Smoker Smokeless Tobacco: Never Alcohol Use Standard Drinks/Week Comments Yes 0 (1 standard drink = 0.6 oz pure alcohol) pt unable to answer,ER reports hx etoh Sex and Gender Information Value Date Recorded Sex Assigned at Not on file Legal Sex Male 11:14 AM EST Gender Identity Not on file Sexual Orientation Not on file documented as of this encounter Plan of Treatment Not on file documented as of this encounter Procedures Procedure Name Priority Date/Time Associated Diagnosis Comments COMPREHENSIVE METABOLIC PANEL Routine 03/05/2019 7:18 AM EDT Illness documented in this encounter Results * (ABNORMAL) Comprehensive metabolic panel (03/05/2019 7:18 AM EDT) Sodium 144 137 - 147 mEq/L 03/05/2019 9:35 AM T [facility] Potassium 3.7 3.5 - 5.4 mEq/L 03/05/2019 9:35 AM EDT [facility] Chloride 109(H) 96 - 107 mEq/L 03/05/2019 9:35 AM EDT [facility] CO2 25 24 - 34 mEq/L 03/05/2019 9:35 AM T [facility] Anion Gap 10 4 - 15 mEq/L 03/05/2019 9:35 AM T [facility] Glucose 100 70 - 100 mg/dL 03/05/2019 9:35 AM T [facility] Creatinine 0.96 0.60 - 1.50 mg/dL 03/05/2019 9:35 AM [facility] eGFR >60 60 - 115 mL/min 03/05/2019 9:35 AM [facility] BUN 14 6 - 26 mg/dL 03/05/2019 9:35 AM T [facility] Calcium 8.7 8.7 - 10.5 mg/dL 03/05/2019 9:35 AM [facility] Total Protein 5.9(L) 6.4 - 8.6 g/dL 03/05/2019 9:35 AM [facility] Albumin 3.8 3.4 - 4.8 g/dL 03/05/2019 9:35 AM [facility] A/G Ratio 1.8 1.0 - 2.3 03/05/2019 9:35 AM [facility] Total Bilirubin 0.6 0.2 - 1.2 mg/dL 03/05/2019 9:35 AM [facility] AST 28 0 - 40 U/L 03/05/2019 9:35 AM T [facility] Alkaline Phosphatase 65 40 - 150 IU/L 03/05/2019 9:35 AM [facility] ALT 28 0 - 45 U/L 03/05/2019 9:35 AM [facility] Blood specimen (specimen) Venipuncture / Unknown 03/05/2019 7:18 AM EDT 03/05/2019 8:38 AM EDT us Tc Gasca MD LAB BLOOD ORDERABLES Final Result Performing Organization Address City/State/[facility] Co de Phone Number [facility] [address] [place], [place] documented in this encounter Visit Diagnoses Diagnosis Illness Other unknown and unspecified cause of morbidity or mortality documented in this encounter Care Teams Wastewater Plant Operator Relationship Specialty Start Date End Date Ilya Gusman MD [address] [place] [phone] PCP - General Internal Medicine 03/01/19 Tc Story MD [address] [place] [phone] Physician 04/02/17 documented as of this encounter
--- OUTSIDE RECORDS SUMMARY | 2025-09-23 20:50 | XMS_ITS | Encounter Summary ---
Author Organization [facility] Address [address] [place] [address] Phone Care Team Providers Care Certified Pesticide Applicator Name Role Phone Ilya Gusman MD Primary Care Provider [phone] Encounter Details Date Type Department Care Team (Late st Contact Info) Description 01/02/2023 Orders Only [facility] - Health Information Department [address] [facility] [place] [address] Scan, No Provider Available [address] 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 No / Unsure 12/25/2022 10:08 AM EST documented as of this encounter Plan of Treatment Upcoming Encounters Date Type Department Care Team (Late st Contact Info) Description 10/06/2025 10:45 AM EST Office Visit [facility] - Internal Medicine [address] [place] [phone] Ilya Gusman MD [address] [place] [phone] Christophe Dailey MD [address] [place] [phone] 01/18/2026 1:00 PM EST Office Visit [facility] [address] [place] [phone] Porsha Marsh, CONTRACT FORESTER [address] [place] [phone] 02/22/2026 11:00 AM EDT Office Visit [facility] [address] [place] [address] [address] [place] [phone] Alonso Bae MD [address] [place] [address] [address] [place] [address] 07/17/2026 2:00 PM EDT Office Visit [facility] - Internal Medicine [address] [place] [phone] Ilya Gusman MD [address] [place] [phone] 07/19/2026 11:40 AM EDT Office Visit [facility] [address] [place] [phone] Yesi Perez MD [address] [place] [phone] documented as of this encounter Procedures Procedure Name Priority Date/Time Associated Diagnosis Comments CT ABDOMEN PELVIS W CONTRAST Routine 11/15/2022 XR CHEST 2 VW Routine 11/09/2022 documented in this encounter Results * CT abdomen pelvis with contrast per algorithm (11/15/2022) Anatomical Region Laterality Modality Body Computed Tomogra phy us No Provider Available Scan IMG CT PROCEDURES Fin al Result * X-ray chest 2 views (11/09/2022) Anatomical Region Laterality Modality Body Radiographic Carmelina ging us No Provider Available Scan IMG XR PROCEDURES Fin al Result documented in this encounter Visit Diagnoses Not on filedocumented in this encounter Additional Health Concerns Infection Onset Date Last Indicated Resolved Time C difficile Rule-Out 12/05/2023 12/05/2023 024 10:39 AM EST C difficile Rule-Out 12/20/2023 12/21/2023 024 1:20 PM EST C difficile Rule-Out 11/01/2024 11/02/2024 024 9:43 AM EST Assessment Noted Time PHQ-9 Depression Total Score: 9 06/05/20 20 9:52 AM EDT documented as of this encounter Care Teams Certified Pesticide Applicator Relationship Specialty Start Date End Date Ilya Gusman MD [address] [place] [phone] PCP - General 05/14/17 [facility] 09/01/25 documented as of this encounter
--- OUTSIDE RECORDS SUMMARY | 2025-09-23 20:50 | XMS_ITS | Encounter Summary ---
Author Organization [facility] Address [address] [place] [address] Phone Care Team Providers Care Supervisor Cytogenetic Laboratory Name Role Phone Ilya Gusman MD Primary Care Provider [phone] Reason for Visit * Reason Onset Date Comments Med Refill 11/26/2019 Encounter Details Date Type Department Care Team (Late st Contact Info) Description 11/26/2019 Refill [facility] - Internal Medicine [address] [place] [phone] Christophe Dailey MD [address] [place] [phone] Med Refill Social History Tobacco Use Types Packs/Day Years Used Date Smoking Tobacco: Never Smokeless Tobacco: Never Alcohol Use Standard Drinks/Week Comments No 0 (1 standard drink = 0.6 oz pure alcohol) pt states he normaly does not drink states he atends AA but yesterday drank as a result of his wifes Sex and Gender Information Value Date Recorded Sex Assigned at Not on file Legal Sex Male 9:28 AM EDT Gender Identity Not on file Sexual Orientation Not on file 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 11/12/19 FREQUENCY OF REFILLS? 14 days DATE REFILL IS DUE? 11/26/19 IS THIS AN EARLY REFILL? No CONTROLLED SUBSTANCE AGREEMENT ON FILE? Yes Last UDS: 08/04/19 DATE OF LAST OFFICE VISIT: 11/12/19 DATE OF NEXT OFFICE VISIT: Future Appointments Date Time Provider Department Center 11/27/2019 9:00 AM CC MR CC MRI CC 12/01/2019 2:45 PM Christophe aDiley MD [facility] IM QCY 12/03/2019 1:00 PM Alejandro Lion MD [facility] NEUROSP NEV 12/10/2019 12:00 PM Ilya Gusman MD LNG IM LNG 02/16/2020 12:20 PM Lulu Mata NP LNG IM LNG ELECTRON BEAM OPERATOR reviewed on 11/26/2019 by Ian VELAZQUEZ and no red flags were noted Ian VELAZQUEZ Refill team, [facility] documented in this encounter Plan of Treatment Upcoming Encounters Date Type Department Care Team (Late st Contact Info) Description 10/06/2025 10:45 AM EST Office Visit [facility] - Internal Medicine [address] [place] [phone] Ilya Gusman MD [address] [place] [phone] Christophe Dailey MD [address] [place] [phone] 01/18/2026 1:00 PM EST Office Visit [facility] [address] [place] [phone] Porsha Marsh CNP [address] [place] [address] 02/22/2026 11:00 AM EDT Office Visit [facility] [address] [place] [address] [address] [place] [phone] Alonso Bae MD [address] [place] [address] [address] [place] [address] 07/17/2026 2:00 PM EDT Office Visit [facility] - Internal Medicine [address] [place] [phone] Ilya Gusman MD [address] [place] [phone] 07/19/2026 11:40 AM EDT Office Visit [facility] [address] [place] [phone] Yesi Perez MD [address] [place] [phone] documented as of this encounter Visit Diagnoses Not on filedocumented in this encounter Additional Health Concerns Infection Onset Date Last Indicated Resolved Time Covid Possible 08/21/2021 08/21/2021 08/21/2021 10 :22 PM EDT Covid Possible 05/24/2022 05/24/2022 05/24/2022 4: 21 PM EDT C difficile Rule-Out 10/03/2022 10/03/2022 022 9:20 AM EST Covid Possible 10/30/2022 10/30/2022 10/30/2022 4: 10 PM EST C difficile Rule-Out 10/30/2022 10/30/2022 022 10:46 PM EST Influenza/CINTHYA Rule-Out 10/30/2022 10/30/202210/30 4:15 PM EST Respiratory Virus Rule-Out 10/30/2022 10/30/2022 1 12/31/2021 4:50 PM EST C difficile Rule-Out 12/05/2023 12/05/2023 024 10:39 AM EST C difficile Rule-Out 12/20/2023 12/21/2023 024 1:20 PM EST C difficile Rule-Out 11/01/2024 11/02/2024 024 9:43 AM EST Assessment Noted Time PHQ-9 Depression Total Score: 10 019 3:07 PM EST documented as of this encounter Care Teams Supervisor Cytogenetic Laboratory Relationship Specialty Start Date End Date Ilya Gusman MD [address] [place] [phone] PCP - General 05/14/17 [facility] 09/01/25 documented as of this encounter
--- OUTSIDE RECORDS SUMMARY | 2025-09-23 20:50 | XMS_ITS | Patient Health Record ---
Author Organization [facility] Address [address] [place], [place] [address] Care Team Providers Care Market Maker Name Role Phone DR Ilya Gusman Primary Care Provider Mitzi Amado, Anit Unavailable [phone] Allergies Allergen (clinical drug ingredient) Drug/Non Drug Allergy documented on EMR Reaction Allergy Type Onset Date Status fluoxetine PROzac Unknown Drug Allergy Active fluoxetine Fluoxetine Unknown Drug Allergy Activ e Substance with sulfonamide structure and antibacterial mechanism of action (substance) Sulfa Antibiotics Unknown Drug Allergy Active Reason For Referral No Information Medications Medication SIG (Take, Route, Frequency, Duration) Notes Start Date End Date Status Dilt-XR 180 MG 1 capsule Orally Onc e a day Active traZODone HCl 50 MG 1 tablet at bedtime as needed Orally Once a day Active Fluticasone Propionate 50 MCG/ACT 2 sprays in each nostril Nasally Once a day; Duration: 30 day(s) Active Metoprolol Succinate 25 MG 1 capsule Ora lly Once a day Active DULoxetine HCl 60 MG 1 capsule Orally On ce a day; Duration: 30 day(s) Active QUEtiapine Fumarate 100 MG 1 tablet at b edtime Orally Once a day; Duration: 30 day(s) Active HYDROmorphone HCl 4 MG 1 tablet as neede d Orally every 6 hrs Active Atorvastatin Calcium 40 MG 1 tablet Oral ly Once a day; Duration: 30 day(s) Active Omeprazole 40 MG 1 capsule 1/2 to 1 h our before morning meal Orally Once a day Active Eliquis 5 MG as directed Orally BID Active Problems Problem Type SNOMED Code ICD Code Onset Dates Problem Status W/U Status Risk Notes Problem Insomnia (671626420) Other insomnia (G47.09) Active confirmed Problem Primary central sleep apnea (7762161752270) Primary central sleep apnea (G47.31) Active confirmed Problem Sleep apnea (02614924) Other sleep apnea (G47.39) Active confirmed Problem Impacted cerumen (15193745) Impacted cerumen, bilateral (H61.23) Active confirmed Problem Chronic serous otitis media (59073900) Chronic serous otitis media, left ear (H65.22) Active confirmed Problem Dysfunction of bilateral eustachian tubes (064096017044819 0) Other specified disorders of Eustachian tube, bilateral (H69.83) Active confirmed Problem Conductive hearing loss, bilateral (589421358) Conductive hearing loss, bilateral (H90.0) Active confirmed Problem Bilateral tinnitus (4847488011386) Tinnitus, bilateral (H93.13) Active confirmed Problem Allergic rhinitis caused by pollen (disorder) (05175447) Allergic rhinitis due to pollen (J30.1) Active confirmed Problem Hypertrophy of nasal turbinates (38068297) Hypertrophy of nasal turbinates (J34.3) Active confirmed Problem Heart failure (32020604) Other heart failure (I50.89) Active confirmed Problem Obstructive sleep apnea syndrome (disorder) (15157932) Obstructive sleep apnea (adult) (pediatric) (G47.33) Active confirmed Vital Signs Blood pressure diastolic 78 mm Hg 01/27/2025 Height 69 in 09/08/2025 Blood pressure systolic 128 mm Hg 01/27/2025 Weight 180 lbs 09/08/2025 BMI 26.58 kg/m2 09/08/2025 Procedures Procedure Date Ordered Date Performed Result Body Sit e PSG 01/27/2025 N/A CPAP into BiPAP Titration Study 03/11/2025 N/A ASV Titration Study 07/20/2025 N/A Encounters Encounter Location Date Provider Diagnosis [facility] [address] [place], [place] [id number] 08/26/2025 Anit Amado Primary central slee p apnea G47.31 [facility] [address] [place], [place] [id number] 03/11/2025 Anit Amado Obstructive sleep ap chinyere (adult) (pediatric) G47.33 ; Insomnia, unspecified G47.00 ; Other insomnia G47.09 ; Primary central sleep apnea G47.31 and Other heart failure I50.89 [facility] [address] [place], [place] [id number] 06/18/2025 Anit Amado Obstructive sleep ap chinyere (adult) (pediatric) G47.33 ; Other abnormalities of breathing R06.89 and Snoring R06.83 [facility] [address] [place], [place] [id number] 09/08/2025 Anit Amado Obstructive sleep ap chinyere (adult) (pediatric) G47.33 ; Primary central sleep apnea G47.31 ; Other insomnia G47.09 and Other heart failure I50.89 [facility] [address] [place], [place] [id number] 07/20/2025 Anit Amado Primary central slee p apnea G47.31 ; Other sleep apnea G47.39 and Other heart failure I50.89 [facility] [address] [place], [place] [id number] 01/27/2025 Anit Amado Obstructive sleep ap chinyere (adult) (pediatric) G47.33 ; Snoring R06.83 ; Other insomnia G47.09 ; Hypertrophy of nasal turbinates J34.3 and Edema of larynx J38.4 [facility] [address] [place], [place] [id number] 02/27/2025 Anit Amado Hypersomnia, unspecified G47.10 ; Obstructive sleep apnea (adult) (pediatric) G47.33 and Insomnia, unspecified G47.00 [facility] [address] [place] [phone] 03/16/2025 Anit Amado [facility] [address] [place], [place] [id number] 03/11/2025 Anit Amado Obstructive sleep ap chinyere (adult) (pediatric) G47.33 ; Other insomnia G47.09 ; Other heart failure I50.89 and Primary central sleep apnea G47.31 [facility] [address] [place], [place] [id number] 03/08/2025 Anit Amado [facility] [address] [place], [place] [id number] 02/07/2025 Anit Amado [facility] [address] [place] [id number] 02/01/2025 Anit Amado [facility] [address] [place] [id number] 01/24/2025 Anit Amado [facility] [address] [place] [id number] 09/08/2025 Anit Amado [facility] [address] [place], [place] [id number] 09/06/2025 Anit Amado [facility] [address] [place], [place] [id number] 07/06/2025 Anit Amado [facility] [address] [place], [place] [id number] 03/10/2025 Anit Amado [facility] [address] [place], [place] [id number] 09/01/2025 Anit Amado [facility] [address] [place], [place] [id number] 08/27/2025 Anit Amado [facility] [address] [place], [place] [id number] 07/20/2025 Anit Amado [facility] [address] [place] [id number] 07/06/2025 Anit Amado [facility] [address] [place], [place] [id number] 05/07/2025 Anit Amado [facility] [address] [place], [place] [id number] 05/07/2025 Anit Amado Assessments Encounter Date Diagnosis (ICD Code) Assessment Notes Treatment Notes Treatment Clinical Notes Section Notes 09/08/2025 Obstructive sleep apnea (adult) (pediatric) (ICD-10 - G47.33) The patient's recent ASV titration was Inconclusive as the patient was unable to tolerate the titration. Given the patient had mixed apnea on his original polysomnogram with a central index of 40.5 I will review with our sleep bed laborer if this patient would qualify for remede procedure versus inspire. Dictated by Misael Gill PA-C 07/20/2025 Primary central sleep apnea (ICD-10 - G47.31) The patient's recent overnight CPAP/BiPAP titration was unsuccessful due to persistent central apnea. I did obtain a recent transthoracic echocardiogram from November which reveals that the ejection fraction by visual approximation is 55-60% and adequate for ASV therapy. We will plan on scheduling the patient for an ASV titration in the near future. Dictated by Misael Gill PA-C 07/20/2025 Other sleep apnea (ICD-10 - G47.39) The patient's recent overnight CPAP/BiPAP titration was unsuccessful due to persistent central apnea. I did obtain a recent transthoracic echocardiogram from November which reveals that the ejection fraction by visual approximation is 55-60% and adequate for ASV therapy. We will plan on scheduling the patient for an ASV titration in the near future. Dictated by Misael Gill PA-C 09/08/2025 Primary central sleep apnea (ICD-10 - G47.31) The patient's recent ASV titration was Inconclusive as the patient was unable to tolerate the titration. Given the patient had mixed apnea on his original polysomnogram with a central index of 40.5 I will review with our sleep bed laborer if this patient would qualify for remede procedure versus inspire. Dictated by Misael Gill PA-C 03/11/2025 Other insomnia (ICD-10 - G47.09) 03/11/2025 Obstructive sleep apnea (adult) (pediatric) (ICD-10 - G47.33) 03/11/2025 Insomnia, unspecified (ICD-10 - G47.00) The patient's recent overnight polysomnogram that appears to be consistent with central apnea with a central index of 40.45 and obstructive index of 7.69. I will further clarify this with the sleep lab and consider ASV treatment if indicated. I did obtain a recent transthoracic echocardiogram from November which reveals that the ejection fraction by visual approximation is 55-60% and adequate for ASV therapy. Dictated by Misael Gill PA-C 03/11/2025 Obstructive sleep apnea (adult) (pediatric) (ICD-10 - G47.33) The patient's recent overnight polysomnogram that appears to be consistent with central apnea with a central index of 40.45 and obstructive index of 7.69. I will further clarify this with the sleep lab and consider ASV treatment if indicated. I did obtain a recent transthoracic echocardiogram from November which reveals that the ejection fraction by visual approximation is 55-60% and adequate for ASV therapy. Dictated by Misael Gill PA-C 02/27/2025 Hypersomnia, unspecified (ICD-10 - G47.10) 08/26/2025 Primary central sleep apnea (ICD-10 - G47.31) 06/18/2025 Obstructive sleep apnea (adult) (pediatric) (ICD-10 - G47.33) 01/27/2025 Obstructive sleep apnea (adult) (pediatric) (ICD-10 - G47.33) The patient has had sleep onset and sleep maintenance insomnia since September when he stopped chemotherapy for his prostate cancer. He was recently prescribed trazodone which has helped him in the past and he will start this in the near future. Differential would include sleep fragmentation secondary to obstructive sleep apnea. I will screen him with an overnight polysomnogram. He will follow-up after to discuss the results and formulate a treatment plan if indicated. Dictated by Misael Gill PA-C 01/27/2025 Snoring (ICD-10 - R06.83) The patient has had sleep onset and sleep maintenance insomnia since September when he stopped chemotherapy for his prostate cancer. He was recently prescribed trazodone which has helped him in the past and he will start this in the near future. Differential would include sleep fragmentation secondary to obstructive sleep apnea. I will screen him with an overnight polysomnogram. He will follow-up after to discuss the results and formulate a treatment plan if indicated. Dictated by Misael iGll PA-C 01/27/2025 Other insomnia (ICD-10 - G47.09) The patient has had sleep onset and sleep maintenance insomnia since September when he stopped chemotherapy for his prostate cancer. He was recently prescribed trazodone which has helped him in the past and he will start this in the near future. Differential would include sleep fragmentation secondary to obstructive sleep apnea. I will screen him with an overnight polysomnogram. He will follow-up after to discuss the results and formulate a treatment plan if indicated. Dictated by Misael Gill PA-C 06/18/2025 Other abnormalities of breathing (ICD-10 - R06.89) 02/27/2025 Obstructive sleep apnea (adult) (pediatric) (ICD-10 - G47.33) 09/08/2025 Other insomnia (ICD-10 - G47.09) The patient's recent ASV titration was Inconclusive as the patient was unable to tolerate the titration. Given the patient had mixed apnea on his original polysomnogram with a central index of 40.5 I will review with our sleep bed laborer if this patient would qualify for remede procedure versus inspire. Dictated by Misael Gill PA-C 03/11/2025 Other heart failure (ICD-10 - I50.89) 03/11/2025 Other insomnia (ICD-10 - G47.09) The patient's recent overnight polysomnogram that appears to be consistent with central apnea with a central index of 40.45 and obstructive index of 7.69. I will further clarify this with the sleep lab and consider ASV treatment if indicated. I did obtain a recent transthoracic echocardiogram from November which reveals that the ejection fraction by visual approximation is 55-60% and adequate for ASV therapy. Dictated by Misael Gill PA-C 07/20/2025 Other heart failure (ICD-10 - I50.89) The patient's recent overnight CPAP/BiPAP titration was unsuccessful due to persistent central apnea. I did obtain a recent transthoracic echocardiogram from November which reveals that the ejection fraction by visual approximation is 55-60% and adequate for ASV therapy. We will plan on scheduling the patient for an ASV titration in the near future. Dictated by Misael Gill PA-C 03/11/2025 Primary central sleep apnea (ICD-10 - G47.31) 09/08/2025 Other heart failure (ICD-10 - I50.89) The patient's recent ASV titration was Inconclusive as the patient was unable to tolerate the titration. Given the patient had mixed apnea on his original polysomnogram with a central index of 40.5 I will review with our sleep bed laborer if this patient would qualify for remede procedure versus inspire. Dictated by Misael Gill PA-C 03/11/2025 Primary central sleep apnea (ICD-10 - G47.31) The patient's recent overnight polysomnogram that appears to be consistent with central apnea with a central index of 40.45 and obstructive index of 7.69. I will further clarify this with the sleep lab and consider ASV treatment if indicated. I did obtain a recent transthoracic echocardiogram from November which reveals that the ejection fraction by visual approximation is 55-60% and adequate for ASV therapy. Dictated by Misael Gill PA-C 02/27/2025 Insomnia, unspecified (ICD-10 - G47.00) 06/18/2025 Snoring (ICD-10 - R06.83) 01/27/2025 Hypertrophy of nasal turbinates (ICD-10 - J34.3) The patient has had sleep onset and sleep maintenance insomnia since September when he stopped chemotherapy for his prostate cancer. He was recently prescribed trazodone which has helped him in the past and he will start this in the near future. Differential would include sleep fragmentation secondary to obstructive sleep apnea. I will screen him with an overnight polysomnogram. He will follow-up after to discuss the results and formulate a treatment plan if indicated. Dictated by Misael Gill PA-C 03/11/2025 Other heart failure (ICD-10 - I50.89) The patient's recent overnight polysomnogram that appears to be consistent with central apnea with a central index of 40.45 and obstructive index of 7.69. I will further clarify this with the sleep lab and consider ASV treatment if indicated. I did obtain a recent transthoracic echocardiogram from November which reveals that the ejection fraction by visual approximation is 55-60% and adequate for ASV therapy. Dictated by Misael Gill PA-C 01/27/2025 Edema of larynx (ICD-10 - J38.4) The patient has had sleep onset and sleep maintenance insomnia since September when he stopped chemotherapy for his prostate cancer. He was recently prescribed trazodone which has helped him in the past and he will start this in the near future. Differential would include sleep fragmentation secondary to obstructive sleep apnea. I will screen him with an overnight polysomnogram. He will follow-up after to discuss the results and formulate a treatment plan if indicated. Dictated by Misael Gill PA-C Plan Of Treatment Pending Test Test Name Order Date CPAP into BiPAP Titration Study 03/11/20 25 PSG 01/27/2025 ASV Titration Study 07/20/2025 Insurance Providers Payer Name Payer Address Payer Phone Subscriber Number Group Number Insured Name Patient Relationship to Insured Coverage Start Date Coverage End Date [employer]. [address] [place]VAR[place]O [place]OUG [phone] [id number] Adolfo Zaragoza Self - patient is the insured [place] Medicaid [address] [place] [address] [id number] Adolfo Zaragoza Self - patient is the insured Medical (General) History Medical History History ICD Code heart failure hypercholesterolemia afib Surgical History Surgery Date(Month/Year) many ortho surgeries
--- OUTSIDE RECORDS SUMMARY | 2025-09-23 20:50 | XMS_ITS | Encounter Summary ---
Author Organization [facility] Address [address] [place] [address] Phone Care Team Providers Care Educational Aide Name Role Phone Ilya Gusman MD Primary Care Provider Encounter Details Date Type Department Care Team (Late Contact Info) Description 11/04/2019 Scanned Document [facility] - Health Information Department [address] [place] [address] Scan, No Provider Available [address] [place] [address] [place] [address] <No scans attached> Social History Tobacco Use Types Packs/Day Years [...] Encounters Date Type Department Care Team (Late Contact Info) Description 10/06/2025 10:45 AM EST Office Visit [facility] - Internal Medicine [address] [place] [phone] Ilya Gusman MD [address] [place] [phone] Christophe Dailey MD [address] [place] [phone] 01/18/2026 1:00 PM EST Office Visit [facility] [address] [place] [phone] Porsha Marsh, CEMENT PRODUCTION PLANT OPERATOR [address] [place] [phone] 02/22/2026 11:00 AM EDT Office Visit [facility] [address] [place] [address] [address] [place] [phone] Alonso Bae MD [address] [place] [address] [address] [place] [address] 07/17/2026 2:00 PM EDT Office Visit [facility] - Internal Medicine [address] [place] [phone] Ilya Gusman MD [address] [place] [phone] 07/19/2026 11:40 AM EDT Office Visit [facility] [address] [place] [phone] Yesi Perez MD [address] [place] [phone] documented as of this encounter Visit Diagnoses Not on filedocumented in this encounter Additional Health Concerns Infection Onset Date Last Indicated Resolved Time Covid Possible 08/21/2021 08/21/202108/21/2021 10 :22 PM EDT Covid Possible 05/24/2022 [...] documented as of this encounter Care Teams Educational Aide Relationship Specialty Start Date End Date Ilya Gusman MD [address] [place] [phone] PCP - General 05/14/17 [facility] 09/01/25 documented as of this encounter
--- OUTSIDE RECORDS SUMMARY | 2025-09-23 20:50 | XMS_ITS | Encounter Summary ---
Author Organization [facility] [address] [place] [address] Care Team Providers Care Ct Manager Name Role Phone Tc Story MD Unavailable [phone] Ilya Gusman MD Primary Care Provider [phone] Encounter Details Date Type Department Care Team (Late st Contact Info) Description 06/20/2021 Lab Requisition [address] [phone] Albaro Nelson, LISA [address] [place] [phone] Illness, unspecified Social History Tobacco Use Types Packs/Day Years [...] Procedure Name Priority Date/Time Associated Diagnosis Comments MAGNESIUM Routine 06/20/2021 6:10 AM EDT Illness, unspecified LITHIUM LEVEL Routine 06/20/2021 6:10 AM EDT Illness, unspecified BASIC METABOLIC PANEL Routine 06/20/2021 6:10 AM EDT Illness, unspecified documented in this encounter Results * Magnesium (06/20/2021 6:10 AM EDT) Magnesium 2.3 1.6 - 2.6 mg/dL 06/20/2021 8:49 AM EDT [facility] Blood specimen (specimen) Venipuncture / Unknown 06/20/2021 6:10 AM EDT 06/20/2021 8:02 AM EDT Narrative [facility] - 06/20/2021 8:49 AM EDT Reference range has been changed as of 08/22/2020. Albaro Nelson INSURANCE UNDERWRITER SALES LAB BLOOD ORDERABLES Final Re sult [facility] [address] [place] [address] * (ABNORMAL) Basic metabolic panel (06/20/2021 6:10 AM EDT) Pathologist [facility] Sodium 138 136 - 145 mEq/L 06/20/2021 8:48 AM EDT [facility] Potassium 3.9 3.5 - 5.1 mEq/L 06/20/2021 8:48 AM EDT [facility] Chloride 104 98 - 107 mEq/L 06/20/2021 8:48 AM EDT [facility] CO2 28 20 - 31 mEq/L 06/20/2021 8:48 AM EDT [facility] Anion Gap 6 4 - 15 mEq/L 06/20/2021 8:48 AM EDT [facility] Glucose 85 70 - 100 mg/dL 06/20/2021 8:48 AM EDT [facility] Creatinine 1.30(H) 0.60 - 1.10 mg/dL 06/20/2021 8:48 AM EDT [facility] eGFR 56(L) 60 - 115 mL/min 06/20/2021 8:48 AM EDT [facility] BUN 13 9 - 23 mg/dL 06/20/2021 8:48 AM EDT [facility] Calcium 8.9 8.7 - 10.4 mg/dL 06/20/2021 8:48 AM EDT [facility] Blood specimen (specimen) Venipuncture / Unknown 06/20/2021 6:10 AM EDT 06/20/2021 8:02 AM EDT Narrative [facility] - 06/20/2021 8:48 AM EDT Reference range has been changed as of 08/22/2020. us Melady Genereux INSURANCE UNDERWRITER SALES LAB BLOOD ORDERABLES Final Re sult Performing Organization Address [facility] Co de Phone Number [facility] [address] [place] [phone] * Bloomer level (06/20/2021 6:10 AM EDT) Bloomer 1.19 0.50 - 1.30 mmol/L 06/20/2021 8:46 AM EDT [facility] Blood specimen (specimen) Venipuncture / Unknown 06/20/2021 6:10 AM EDT 06/20/2021 8:02 AM EDT us Melady Genereux INSURANCE UNDERWRITER SALES LAB BLOOD ORDERABLES Final Re sult Performing Organization Address [facility] Co de Phone Number [facility] [address] [place] [phone] documented in this encounter Visit Diagnoses Diagnosis Illness, unspecified documented in this encounter Care Teams Ct Manager Relationship Specialty Start Date End Date Ilya Gusman MD [address] [place] [phone] PCP - General Internal Medicine 03/01/19 Tc Story MD [address] [place] [phone] Physician 04/02/17 documented as of this encounter
--- OUTSIDE RECORDS SUMMARY | 2025-09-23 20:50 | XMS_ITS | Encounter Summary ---
Author Organization [facility] ystem Address [address] [place] [address] Phone Care Team Providers Care Escapement Maker Name Role Phone Ilya Gusman MD Primary Care Provider [phone] Encounter Details Date Type Department Care Team (Late st Contact Info) Description 07/05/2020 Scanned Document [facility] - Health Information Department [address] [place] [address] Scan, No Provider Available [address] [facility] [place] [place] [address] <No scans attached> Social History Tobacco Use [...] Exposure Response Date Recorded In the last month, have you been in contact with someone who was confirmed or suspected to have Coronavirus / COVID-19? No / Unsure 07/06/2020 6:53 AM EDT documented as of this encounter Plan of Treatment Upcoming Encounters Date Type Department Care Team (Late st Contact Info) Description 10/06/2025 10:45 AM EST Office Visit [facility] - Internal Medicine [address] [place] [phone] Ilya Gusman MD [address] [place] [phone] Christophe Dailey MD [address] [place] [phone] 01/18/2026 1:00 PM EST Office Visit [facility] [address] [place] [phone] Porsha Marsh CNP [address] [place] [address] 02/22/2026 11:00 AM EDT Office Visit [facility] [address] [place] [address] [address] [place] [phone] Alonso Bae MD [address] [place] [address] [address] [place] [address] 07/17/2026 2:00 PM EDT Office Visit [facility] - Internal Medicine [address] [place] [phone] Ilya Gusman MD [address] [place] [phone] 07/19/2026 11:40 AM EDT Office Visit [facility] [address] [place] [address] Yesi Perez MD [address] [place] [address] documented as of this encounter Visit Diagnoses [...] Assessment Noted Time PHQ-9 Depression Total Score: 06/05/20 20 9:52 AM EDT documented as of this encounter Care Teams Escapement Maker Relationship Specialty Start Date End Date Ilya Gusman MD [address] [place] [phone] PCP - General 05/14/17 [facility] 09/01/25 documented as of this encounter
--- OUTSIDE RECORDS SUMMARY | 2025-09-23 20:50 | XMS_ITS | Encounter Summary ---
Author Organization [facility] Address [address] [place] [address] Phone Care Team Providers Care Virologist Name Role Phone Ilya Gusman MD Primary Care Provider [phone] Reason for Visit * Reason Onset Date Comments FYI 05/26/2020 Encounter Details Date Type Department Care Team (Late st Contact Info) Description 05/26/2020 Telephone [facility] - Family Medicine [address] [place] [phone] Luly Crawford, RN Social History Tobacco Use Types Packs/Day Years [...] have Coronavirus / COVID-19? No / Unsure 05/29/2020 10:41 AM EDT documented as of this encounter Miscellaneous Notes * Telephone Encounter - Luly Gaming, RN - 05/26/2020 3:09 PM EDT Pt calling states he would like to let MD know he is admitted to [facility], was suppose to be seen for f/u today. FYI sent per pt. Luly Gaming RN, [facility] documented in this encounter Plan of Treatment Upcoming Encounters Date Type Department Care Team (Late st Contact Info) Description 10/06/2025 10:45 AM EST Office Visit [facility] - Internal Medicine [address] [place] [phone] Ilya Gusman MD [address] [place] [phone] Christophe Dailey MD [address] [place] [address] [phone] 01/18/2026 1:00 PM EST Office Visit [facility] 1 [place] [address] Porsha Marsh, CROOK OPERATOR 70 [place] [address] 02/22/2026 11:00 AM EDT Office Visit [facility] [address] [place] [phone] Alonso Bae MD [address] [place] [address] [address] [place] [address] 07/17/2026 2:00 PM EDT Office Visit [facility] - Internal Medicine [address] [place] [phone] Ilya Gusman MD [address] [place] [phone] 07/19/2026 11:40 AM EDT Office Visit [facility] [address] [address] Yesi Perez MD 70 [place] [address] documented as of this encounter Visit Diagnoses [...] Assessment Noted Time PHQ-9 Depression Total Score: 8 04/20/20 20 10:48 AM EDT documented as of this encounter Care Teams Virologist Relationship Specialty Start Date End Date Ilya Gusman MD [address] [place] [phone] PCP - General 05/14/17 [facility] 09/01/25 documented as of this encounter
--- OUTSIDE RECORDS SUMMARY | 2025-09-23 20:50 | XMS_ITS | Encounter Summary ---
[facility] Organization [facility] Address [address] [place] [address] Phone Care Team Providers Care Defense Travel Administrator Name Role Phone Ilya Gusman MD Primary Care Provider [phone] Reason for Visit * Reason Onset Date Comments Med Refill 05/23/2020 Encounter Details Date Type Department Care Team (Late st Contact Info) Description 05/23/2020 Refill [facility] - Internal Medicine [address] [place] [phone] Christophe Dailey MD [address] [place] [phone] Med Refill Social History Tobacco Use [...] have Coronavirus / COVID-19? No / Unsure 05/25/2020 10:06 PM EDT documented as of this encounter Plan of Treatment Upcoming Encounters Date Type Department Care Team (Late st Contact Info) Description 10/06/2025 10:45 AM EST Office Visit [facility] - Internal Medicine [address] [place] [phone] Ilya Gusman MD [address] [place] [address] [phone] Christophe Dailey MD [address] [place] [phone] 01/18/2026 1:00 PM EST Office Visit [facility] [address] [address] Porsha Marsh, PRINT DEVELOPER AUTOMATIC 70 [place] [address] 02/22/2026 11:00 AM EDT Office Visit [facility] [address] [place] [phone] Alonso Bae MD [address] [place] [address] [address] [place] [address] 07/17/2026 2:00 PM EDT Office Visit [facility] - Internal Medicine [address] [place] [phone] Ilya Gusman MD [address] [place] [phone] 07/19/2026 11:40 AM EDT Office Visit [facility] [address] [address] Yesi Perez MD 70 [place] [address] documented as of this encounter Visit Diagnoses [...] documented as of this encounter Care Teams Defense Travel Administrator Relationship Specialty Start Date End Date Ilya Gusman MD [address] [place] [phone] PCP - General 05/14/17 [facility] 09/01/25 documented as of this encounter
--- OUTSIDE RECORDS SUMMARY | 2025-09-23 20:50 | XMS_ITS | Encounter Summary ---
Author Organization [facility] ystem Address [address] [place] [address] Phone Care Team Providers Care Sales Promotion Officer Name Role Phone Ilya Gusman MD Primary Care Provider [phone] Encounter Details Date Type Department Care Team (Late st Contact Info) Description 04/24/2020 Scanned Document [facility] - Health Information Department [address] [place] [address] Scan, No Provider Available [address] [place] [address] <No scans attached> Social History Tobacco Use [...] have Coronavirus / COVID-19? No / Unsure 04/20/2020 10:39 AM EDT documented as of this encounter Plan of Treatment Upcoming Encounters Date Type Department Care Team (Late st Contact Info) Description 10/06/2025 10:45 AM EST Office Visit [facility] - Internal Medicine [address] [place] [phone] Ilya Gusman MD [address] [place] [phone] Christophe Dailey MD [address] [place] [phone] 01/18/2026 1:00 PM EST Office Visit [facility] [address] [place] [address] Porsha Marsh CNP [address] [place] [address] 02/22/2026 11:00 AM EDT Office Visit [facility] [address] [place] [address] [address] [place] [phone] Alonso Bae MD [address] [place] [address] [address] [place] [address] 07/17/2026 2:00 PM EDT Office Visit [facility] - Internal Medicine [address] [place] [phone] Ilya Gusman MD [address] [place] [phone] 07/19/2026 11:40 AM EDT Office Visit [facility] [address] [place] [address] Yesi Perez MD [address] [place] [address] documented as of this encounter Visit Diagnoses [...] documented as of this encounter Care Teams Sales Promotion Officer Relationship Specialty Start Date End Date Ilya Gusman MD [address] [place] [phone] PCP - General 05/14/17 [facility] 09/01/25 documented as of this encounter
--- OUTSIDE RECORDS SUMMARY | 2025-09-23 20:50 | XMS_ITS | Encounter Summary ---
Author Organization [facility] Address [address] [place] [address] Phone Care Team Providers Care Dietetic Tech Name Role Phone Ilya Gusman MD Primary Care Provider [phone] Reason for Visit * Reason Onset Date Comments Med Refill 03/04/2020 Encounter Details Date Type Department Care Team (Late st Contact Info) Description 03/04/2020 Refill [facility] - Internal Medicine [address] [place] [phone] Ilya Gusman MD [address] [place] [phone] Med Refill Social History Tobacco Use [...] have Coronavirus / COVID-19? No / Unsure 02/10/2020 12:58 PM EDT documented as of this encounter Miscellaneous Notes * Telephone Encounter - Sheron Hoover PhT - 03/06/2020 9:11 AM EDT Amlodipine, last written 02/02/20 qty 30 with 0 refills Last BMP Results: Lab Results Component Value Date GLUCOSE 110 (H) 01/31/2020 CALCIUM 9.2 01/31/2020 NA 143 01/31/2020 K 3.9 01/31/2020 CO2 25 01/31/2020 CL 108 01/31/2020 BUN 16.0 01/31/2020 CREAT 0.8 01/31/2020 BP Readings from Last 5 Encounters: 01/31/20 (!) 146/94 01/25/20 151/81 01/05/20 158/85 12/22/19 160/86 12/10/19 (!) 166/92 Last OV with PCP/APC: 01/05/20 Future Appointments Date Time Provider Department Center 03/29/2020 11:40 AM Lulu Mata, LISA [facility]NG IM [facility] 07/25/2020 10:30 AM Alejandro Lion MD [facility] Sheron Hoover [place] Refill Team, [place] documented in this encounter Plan of Treatment Upcoming Encounters Date Type Department Care Team (Late st Contact Info) Description 10/06/2025 10:45 AM EST Office Visit [facility] - Internal Medicine [address] [place] [phone] Ilya Gusman MD [address] [place] [phone] Christophe Dailey MD [address] [place] [phone] 01/18/2026 1:00 PM EST Office Visit [facility] 70 [facility] 1 [place] [address] Porsha Marsh CNP 70 [place] [address] 02/22/2026 11:00 AM EDT Office Visit [facility] [address] [place] [phone] Alonso Bae MD [address] [place] [address] 07/17/2026 2:00 PM EDT Office Visit [facility] - Internal Medicine [address] [place] [phone] Ilya Gusman MD [address] [place] [address] [phone] 07/19/2026 11:40 AM EDT Office Visit [facility] [address] [address] Yesi Perez MD 70 [place] [address] documented as of this encounter Visit Diagnoses [...] documented as of this encounter Care Teams Dietetic Tech Relationship Specialty Start Date End Date Ilya Gusman MD [address] [place] [phone] PCP - General 05/14/17 [facility] 09/01/25 documented as of this encounter
--- OUTSIDE RECORDS SUMMARY | 2025-09-23 20:50 | XMS_ITS | Encounter Summary ---
Author Organization [facility] Address [address] [place] [address] Phone Care Team Providers Care Pilot Boat Captain Name Role Phone Ilya Gusman MD Primary Care Provider [phone] Reason for Visit * Reason Onset Date Comments Med Refill 05/29/2020 Encounter Details Date Type Department Care Team (Late st Contact Info) Description 05/29/2020 Refill [facility] - Internal Medicine [address] [place] [phone] Christophe Dailey MD [address] [place] [phone] Med Refill Social History Tobacco Use [...] have Coronavirus / COVID-19? No / Unsure 06/01/2020 8:02 AM EDT documented as of this encounter Plan of Treatment Upcoming Encounters Date Type Department Care Team (Late st Contact Info) Description 10/06/2025 10:45 AM EST Office Visit [facility] - Internal Medicine [address] [place] [phone] Ilya Gusman MD [address] [place] [address] [phone] Christophe Dailey MD [address] [place] [phone] 01/18/2026 1:00 PM EST Office Visit [facility] [address] [address] Porsha Marsh, READING RECOVERY TEACHER 70 [place] [address] 02/22/2026 11:00 AM EDT Office Visit [facility] [address] [place] [phone] Alonso Bae MD [address] [place] [address] [address] [place] [address] 07/17/2026 2:00 PM EDT Office Visit [facility] - Internal Medicine [address] [place] [phone] Ilya Gusman MD [address] [place] [phone] 07/19/2026 11:40 AM EDT Office Visit [facility] [address] [address] Yesi Perez MD 70 [place] [address] documented as of this encounter Visit Diagnoses [...] documented as of this encounter Care Teams Pilot Boat Captain Relationship Specialty Start Date End Date Ilya Gusman MD [address] [place] [phone] PCP - General 05/14/17 [facility] 09/01/25 documented as of this encounter
--- OUTSIDE RECORDS SUMMARY | 2025-09-23 20:50 | XMS_ITS | Encounter Summary ---
Author Organization [facility] ystem Address [address] [place] [address] Phone Care Team Providers Care Childcare Provider Name Role Phone Ilya Gusman MD Primary Care Provider [phone] Encounter Details Date Type Department Care Team (Late Contact Info) Description 11/01/2019 Scanned Document [facility] - Health Information Department [address] [place] [address] Scan, No Provider Available [address] [place] [address] [place] [address] <No scans attached> Social History Tobacco Use [...] 10:45 AM EST Office Visit [facility] - Internal Medicine [address] [place] [phone] Ilya Gusman MD [address] [place] [phone] Christophe Dailey MD [address] [place] [phone] 01/18/2026 1:00 PM EST Office Visit [facility] [address] [place] [address] Porsha Marsh, CALL CENTER ASSOCIATE [address] [place] [address] 02/22/2026 11:00 AM EDT Office Visit [facility] [address] [place] [address] [address] [place] [phone] Alonso Bae MD [address] [place] [address] [address] [place] [address] 07/17/2026 2:00 PM EDT Office Visit [facility] - Internal Medicine [address] [place] [phone] Ilya Gusman MD [address] [place] [phone] 07/19/2026 11:40 AM EDT Office Visit [facility] [address] [place] [address] Yesi Perez MD [address] [place] [address] documented as of this encounter Visit Diagnoses [...] documented as of this encounter Care Teams Childcare Provider Relationship Specialty Start Date End Date Ilya Gusman MD [address] [place] [phone] PCP - General 05/14/17 [facility] 09/01/25 documented as of this encounter
--- OUTSIDE RECORDS SUMMARY | 2025-09-23 20:50 | XMS_ITS | Encounter Summary ---
Author Organization [facility] Address [address] [place] [address] Phone Care Team Providers Care Gig Tender Name Role Phone Ilya Gusman MD Primary Care Provider [phone] Encounter Details Date Type Department Care Team (Late st Contact Info) Description 06/07/2020 Orders Only [facility] - Internal Medicine [address] [place] [phone] Christophe Dailey MD [address] [place] [phone] Social History Tobacco Use Types Packs/Day Years [...] have Coronavirus / COVID-19? No / Unsure 06/05/2020 7:51 AM EDT documented as of this encounter Plan of Treatment Upcoming Encounters Date Type Department Care Team (Late st Contact Info) Description 10/06/2025 10:45 AM EST Office Visit [facility] - Internal Medicine [address] [place] [phone] Ilya Gusman MD [address] [place] [phone] Christophe Dailey MD [address] [place] [phone] 01/18/2026 1:00 PM EST Office Visit [facility] [address] [place] [address] Porsha Marsh, MICROBIOLOGICAL ANALYST 70 [place] [address] 02/22/2026 11:00 AM EDT Office Visit [facility] [address] [place] [address] [address] [place] [phone] Alonso Bae MD [address] [place] [address] [address] [place] [address] 07/17/2026 2:00 PM EDT Office Visit [facility] - Internal Medicine [address] [place] [phone] Ilya Gusman MD [address] [place] [phone] 07/19/2026 11:40 AM EDT Office Visit [facility] [address] [place] [address] Yesi Perez MD 70 [place] [address] documented as of this encounter Visit Diagnoses [...] documented as of this encounter Care Teams Gig Tender Relationship Specialty Start Date End Date Ilya Gusman MD [address] [place] [phone] PCP - General 05/14/17 [facility] 09/01/25 documented as of this encounter
--- OUTSIDE RECORDS SUMMARY | 2025-09-23 20:50 | XMS_ITS | Encounter Summary ---
Author Organization [facility] ystem Address [address] [place] [address] Phone Care Team Providers Care Wood Gluer Name Role Phone Ilya Gusman MD Primary Care Provider [phone] Encounter Details Date Type Department Care Team (Late st Contact Info) Description 05/08/2020 Scanned Document [facility] - Health Information Department [address] [place] [address] Scan, No Provider Available [address] [facility] [place] [address] <No scans attached> Social History Tobacco Use [...] Description 10/06/2025 10:45 AM EST Office Visit [facility] - Internal Medicine [address] [place] [phone] Ilya Gusman MD [address] [place] [phone] Christophe Dailey MD [address] [place] [phone] 01/18/2026 1:00 PM EST Office Visit [facility] [address] [place] [address] Porsha Marsh CNP [address] [place] [address] 02/22/2026 11:00 AM EDT Office Visit [facility] [address] [place] [address] [address] [place] [phone] Alonso Bae MD [address] [place] [address] [address] [place] [address] 07/17/2026 2:00 PM EDT Office Visit [facility] - Internal Medicine [address] [place] [phone] Ilya Gusman MD [address] [place] [phone] 07/19/2026 11:40 AM EDT Office Visit [facility] [address] [place] [address] Yesi Perez MD [address] [place] [address] documented as of this encounter Visit Diagnoses [...] documented as of this encounter Care Teams Wood Gluer Relationship Specialty Start Date End Date Ilya Gusman MD [address] [place] [phone] PCP - General 05/14/17 [facility] 09/01/25 documented as of this encounter
--- OUTSIDE RECORDS SUMMARY | 2025-09-23 20:50 | XMS_ITS | Encounter Summary ---
Author Organization [facility] ystem Address [address] [place] [address] Phone Care Team Providers Care Charrer Name Role Phone Ilya Gusman MD Primary Care Provider [phone] Encounter Details Date Type Department Care Team (Late st Contact Info) Description 08/19/2025 Scanned Document [facility] - Health Information Department [address] [place], [place] [phone] Scan, No Provider Available [address] [facility] [place] [address] <No scans attached> Social History Tobacco Use Types Packs/Day Years Used Date Smoking Tobacco: Never Smokeless Tobacco: Never Alcohol Use Standard Drinks/Week Comments No 0 (1 standard drink = 0.6 oz pure alcohol) quit 2019; brief relapse 04/2025 x 2 days after a close friend OASIS D0700: Social Isolation Answer Da te Recorded Frequency of experiencing loneliness or isolatio n Never 04/03/2025 OASIS A1250: Transportation Answer Date Recorded Lack of Transportation (Medical) No 04/03/2025 Lack of Transportation (Non-Medical) No 04/03/2025 Patient Unable or Declines to Respond No 04/03/2025 OASIS B1300: Health Literacy Answer Narinder e Recorded Frequency of needing help to read materials from doctor or pharmacy Never 04/03/2025 Sex and Gender Information Value Date Recorded Sex Assigned at Not on file Legal Sex Male 9:28 AM EDT Gender Identity Not on file Sexual Orientation Not on file 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 Answer Date of Assessment Author No 05/20/2025 10:06 AM EDT Roberta Wang MA * Are you blind or do you have serious difficulty seeing, even when wearing glasses? Answer Date of Assessment Author No 05/20/2025 10:06 AM EDT Roberta Wang MA * Do you have serious difficulty walking or climbing stairs? Answer Date of Assessment Author Yes 05/20/2025 10:06 AM EDT Roberta Wang MA * Do you have serious difficulty dressing or bathing? Answer Date of Assessment Author No 05/20/2025 10:06 AM EDT Roberta Wang MA * Because of a physical, mental, or emotional condition, do you have serious difficulty doing errandsalone such as visiting the doctor? Answer Date of Assessment Author No 05/20/2025 10:06 AM EDT Roberta Wang MA documented as of this encounter Mental Status * Because of a physical, mental, or emotional condition, do you have serious difficulty concentrating, remembering, or making decisions? Answer Entry Date Author No 05/20/2025 10:06 AM WALLYT Roberta Wang MA documented in this encounter Plan of Treatment Upcoming Encounters Date Type Department Care Team (Late st Contact Info) Description 10/06/2025 10:45 AM EST Office Visit [facility] - Internal Medicine [address] [place] [phone] Ilya Gusman MD [address] [place] [phone] Christophe Dailey MD [address] [place] [phone] 01/18/2026 1:00 PM EST Office Visit [facility] [address] [address] Porsha Marsh CNP 70 [place] [address] 02/22/2026 11:00 AM EDT Office Visit [facility] [address] [place] [phone] Alonso Bae MD [address] [place] [address] 07/17/2026 2:00 PM EDT Office Visit [facility] - Internal Medicine [address] [place] [phone] Ilya Gusman MD [address] [place] [phone] 07/19/2026 11:40 AM EDT Office Visit [facility] [address] [address] Yesi Perez MD 70 [place] [address] documented as of this encounter Visit Diagnoses Not on filedocumented in this encounter Additional Health Concerns Assessment Noted Time PHQ-9 Depression Total Score: 16 025 11:49 AM EDT documented as of this encounter Care Teams Charrer Relationship Specialty Start Date End Date Ilya Gusman MD [address] [place] [phone] PCP - General 05/14/17 [facility] 09/01/25 documented as of this encounter
--- OUTSIDE RECORDS SUMMARY | 2025-09-23 20:50 | XMS_ITS | Encounter Summary ---
[facility] Address [address] [place] [address] Phone Care Team Providers Care Baker Apprentice Name Role Phone Ilya Gusman MD Primary Care Provider [phone] Reason for Visit * Reason Onset Date Comments Med Refill 01/20/2020 Encounter Details Date Type Department Care Team (Late st Contact Info) Description 01/20/[address] [facility] - Internal Medicine [address] [place] [phone] Christophe Dailey MD [address] [place] [phone] Med Refill Social History Tobacco Use [...] encounter Miscellaneous Notes * Telephone Encounter - Brianna Rosario PhT - 01/21/2020 8:47 AM EST Refill request for Oxycodone Pharmacy: [facility] DATE OF LAST REFILL? 01/07/20 FREQUENCY OF REFILLS? 14 days DATE REFILL IS DUE? 01/21/20 IS THIS AN EARLY REFILL? No CONTROLLED SUBSTANCE AGREEMENT ON FILE? Yes Last UDS: 08/04/19 DATE OF LAST OFFICE VISIT: 01/05/20 DATE OF NEXT OFFICE VISIT: Future Appointments Date Time Provider Department Center 01/25/2020 10:00 AM Alejandro Lion MD NEV NEUROSP NEV 01/31/2020 9:00 AM Christophe Dailey MD QCY IM QCY 02/16/2020 12:20 PM Lulu Mata, LISA LNG IM LNG TRANSCRIPTION TYPIST reviewed on 01/21/2020 by Ian VELAZQUEZ and no red flags were noted Ian VELAZQUEZ Refill team, [facility] documented in this encounter Plan of Treatment Upcoming Encounters Date Type Department Care Team (Late st Contact Info) Description 10/06/2025 10:45 AM EST Office Visit [facility] - Internal Medicine [address] [place] [phone] Ilya Gusman MD [address] [place] [phone] Christophe Dailey MD [address] [place] [phone] 01/18/2026 1:00 PM EST Office Visit [facility] [address] [address] Porsha Marsh, APPLIED EXERCISE PHYSIOLOGIST 70 [place] [address] 02/22/2026 11:00 AM EDT Office Visit [facility] [address] [facility] [address] [place] [phone] Alonso Bae MD [address] [facility] [address] [place] [address] 07/17/2026 2:00 PM EDT Office Visit [facility] - Internal Medicine 143 [place] [phone] Ilya Gusman MD [address] [place] [phone] 07/19/2026 11:40 AM EDT Office Visit [facility] 70 [facility] 1 [place] [address] Yesi Perez MD 70 [place] [address] documented as of this encounter Visit Diagnoses [...] documented as of this encounter Care Teams Baker Apprentice Relationship Specialty Start Date End Date Ilya Gusman MD [address] [place] [phone] PCP - General 05/14/17 [facility] 09/01/25 documented as of this encounter
--- OUTSIDE RECORDS SUMMARY | 2025-09-23 20:50 | XMS_ITS | Encounter Summary ---
[facility] Address [address] [place] [address] Phone Care Team Providers Care Wood Boat Builder Supervisor Name Role Phone Ilya Gusman MD Primary Care Provider Encounter Details Date Type Department Care Team (Late Contact Info) Description 11/11/2019 Procedure [facility] - MR Imaging [address] [place] [phone] Social History Tobacco Use Types Packs/Day Years [...] 10:45 AM EST Office Visit [facility] - Internal Medicine [address] [place] [phone] Ilya Gusman MD [address] [place] [phone] Christophe Dailey MD [address] [place] [phone] 01/18/2026 1:00 PM EST Office Visit [facility] [address] [place] [phone] Porsha Marsh, DEVELOPMENT VICE PRESIDENT 70 [place] [address] 02/22/2026 11:00 AM EDT Office Visit [facility] [address] [place] [address] [address] [place] [phone] Alonso Bae MD [address] [place] [address] [address] [place] [address] 07/17/2026 2:00 PM EDT Office Visit [facility] - Internal Medicine [address] [place] [phone] Ilya Gusman MD [address] [place] [phone] 07/19/2026 11:40 AM EDT Office Visit [facility] [address] [place] [address] Yesi Perez MD [address] [place] [address] documented as of this encounter Visit Diagnoses [...] as of this encounter Care Teams Wood Boat Builder Supervisor Relationship Specialty Start Date End Date Ilya Gusman MD [address] [place] [phone] PCP - General 05/14/17 [facility] 09/01/25 documented as of this encounter
--- OUTSIDE RECORDS SUMMARY | 2025-09-23 20:50 | XMS_ITS | Encounter Summary ---
Author Organization [facility] Address [address] [place] [address] Phone Care Team Providers Care Chucking Machine Operator Name Role Phone Ilya Gusman MD Primary Care Provider [phone] Reason for Visit * Reason Comments Med Refill Encounter Details Date Type Department Care Team (Late st Contact Info) Description 01/15/2020 Refill [facility] - Internal Medicine [address] [place] [phone] Ilya Gusman MD [address] [place] [phone] Med Refill Social History Tobacco Use [...] encounter Miscellaneous Notes * Telephone Encounter - Ifrah Wilhelm PhT - 01/19/2020 9:46 AM EST Refill Amlodipine 5 mg WHEN WAS LAST OFFICE VISIT? 01-05-20 WHEN IS NEXT OFFICE VISIT? Future Appointments Date Time Provider Department Center 01/25/2020 10:00 AM Alejandro Lion MD NEV NEUROSP NEV 01/31/2020 9:00 AM Christophe Dailey MD QCY IM QCY 02/16/2020 12:20 PM Lulu Mata, LISA LNG IM LNG Last BMP Results: Lab Results Component Value Date GLUCOSE 132 (H) 08/15/2019 CALCIUM 8.8 08/15/2019 NA 143 08/15/2019 K 4.1 08/15/2019 CO2 27 08/15/2019 CL 106 08/15/2019 BUN 13 08/15/2019 CREAT 0.8 08/15/2019 BP Readings from Last 5 Encounters: 01/05/20 158/85 12/22/19 160/86 12/10/19 (!) 166/92 12/01/19 126/66 11/12/19 (!) 142/94 DATE OF LAST REFILL? 11-08-19 qty#30 w/ one refill Ifrah Wilhelm, Dredge Master Refill Team documented in this encounter Plan of Treatment Upcoming Encounters Date Type Department Care Team (Late st Contact Info) Description 10/06/2025 10:45 AM EST Office Visit [facility] - Internal Medicine [address] [place] [phone] Ilya Gusman MD [address] [place] [phone] Christophe Dailey MD [address] [place] [phone] 01/18/2026 1:00 PM EST Office Visit [facility] [address] [address] Porsha Marsh, STITCHER STANDARD MACHINE 70 [place] [address] 02/22/2026 11:00 AM EDT Office Visit [facility] [address] [facility] [address] [place] [phone] Alonso Bae MD [address] [facility] [address] [place] [address] 07/17/2026 2:00 PM EDT Office Visit [facility] - Internal Medicine [address] [place] [phone] Ilya Gusman MD 143 [place] [phone] 07/19/2026 11:40 AM EDT Office Visit [facility] [address] [facility] 1 [place] [address] Yesi Perez MD 70 [place] [address] documented as of this encounter Visit Diagnoses [...] documented as of this encounter Care Teams Chucking Machine Operator Relationship Specialty Start Date End Date Ilya Gusman MD [address] [place] [phone] PCP - General 05/14/17 [facility] 09/01/25 documented as of this encounter
--- OUTSIDE RECORDS SUMMARY | 2025-09-23 20:50 | XMS_ITS | Encounter Summary ---
Author Organization [facility] Address [address] [place] [address] Phone Care Team Providers Care Solution Analyst Name Role Phone Ilya Gusman MD Primary Care Provider [phone] Reason for Visit * Reason Onset Date Comments Med Refill Med Refill 06/02/2020 Encounter Details Date Type Department Care Team (Late st Contact Info) Description 05/31/2020 Refill [facility] - Internal Medicine [address] [place] [phone] Ilya Gusman MD [address] [place] [phone] Med Refill; Med Refill Social History Tobacco Use Types [...] Encounter - Luz Elena Ace PhT - 06/02/2020 3:13 PM EDT Carvedilol listed on 05/28/20 on patient chart when patient was hospitalized . Please advise if ok tofill. No medication pended. This medication was listed on chart with a no print status. WHEN WAS LAST OFFICE VISIT? PCP?APC VISIT:05/31/20 WHEN IS NEXT OFFICE VISIT? Future Appointments Date Time Provider Department Center 06/05/2020 8:00 AM BRIDGE PROVIDER [facility] BR[facility] 07/06/2020 7:30 AM William Edwards MD PPK PAIN PPK 07/25/2020 10:30 AM Alejandro Lion MD NEV NEUROSP NEV 10/23/2020 10:40 AM Ilya Gusman MD LNG IM LNG Last BMP Results: Lab Results Component Value Date GLUCOSE 97 05/28/2020 CALCIUM 9.6 05/28/2020 NA 140 05/28/2020 K 4.7 (H) 05/28/2020 CO2 28 05/28/2020 CL 103 05/28/2020 BUN 11 05/28/2020 CREAT 1.0 05/28/2020 BP Readings from Last 5 Encounters: 06/01/20 132/71 05/31/20 112/84 05/28/20 124/77 05/25/20 (!) 54/40 05/15/20 (!) 154/93 Thank you, Luz Elena Ace PhT Refill Team, [facility] documented in this encounter Plan of Treatment Upcoming Encounters Date Type Department Care Team (Late st Contact Info) Description 10/06/2025 10:45 AM EST Office Visit [facility] - Internal Medicine [address] [place] [phone] Ilya Gusman MD [address] [place] [phone] Christophe Dailey MD [address] [place] [phone] 01/18/2026 1:00 PM EST Office Visit [facility] [address] [place] [phone] Porsha Marsh, MOTION PICTURE CAMERA OPERATOR 70 [place] [address] 02/22/2026 11:00 AM EDT Office Visit [facility] [address] [place] [address] [address] [place] [phone] Alonso Bae MD [address] [place] [address] 2 [place] [address] 07/17/2026 2:00 PM EDT Office Visit [facility] - Internal Medicine [address] [place] [phone] Ilya Gusman MD [address] [place] [phone] 07/19/2026 11:40 AM EDT Office Visit [facility] [address] [place] [address] Yesi Perez MD [address] [place] [address] documented as of this encounter Visit Diagnoses Not on filedocumented in this encounter Additional Health Concerns Infection Onset Date Last Indicated Resolved Time Covid Possible 08/21/2021 08/21/2021 08/21/2021 10 :22 PM EDT Covid Possible 05/24/2022 05/24/2022 05/24/2022 4: 21 PM EDT C difficile Rule-Out 10/03/2022 10/03/20222 022 9:20 AM EST Covid Possible 10/30/2022 [...] documented as of this encounter Care Teams Solution Analyst Relationship Specialty Start Date End Date Ilya Gusman MD [address] [place] [phone] PCP - General 05/14/17 [facility] 09/01/25 documented as of this encounter
--- OUTSIDE RECORDS SUMMARY | 2025-09-23 20:50 | XMS_ITS | Encounter Summary ---
[facility] Address [address] [place] [address] Phone Care Team Providers Care Training Manager Name Role Phone Ilya Gusman MD Primary Care Provider [phone] Reason for Visit * Reason Comments Med Refill Encounter Details Date Type Department Care Team (Late st Contact Info) Description 04/25/2020 Refill [facility] - Internal Medicine [address] [place] [phone] Ilya Gusman MD [address] [place] [phone] Med Refill Social History Tobacco Use [...] Description 10/06/2025 10:45 AM EST Office Visit [facility] - Internal Medicine [address] [place] [phone] Ilya Gusman MD [address] [place] [phone] Christophe Dailey MD [address] [place] [phone] 01/18/2026 1:00 PM EST Office Visit [facility] [address] [place] [address] Porsha Marsh, TRUCK DISPATCHER 70 [place] [address] 02/22/2026 11:00 AM EDT Office Visit [facility] [address] [place] [address] [address] [place] [phone] Alonso Bae MD [address] [place] [address] [address] [place] [address] 07/17/2026 2:00 PM EDT Office Visit [facility] - Internal Medicine [address] [place] [phone] Ilya Gusman MD [address] [place] [phone] 07/19/2026 11:40 AM EDT Office Visit [facility] [address] [place] [address] Yesi Perez MD 70 [place] [address] documented as of this encounter Visit Diagnoses [...] documented as of this encounter Care Teams Training Manager Relationship Specialty Start Date End Date Ilya Gusman MD [address] [place] [phone] PCP - General 05/14/17 [facility] 09/01/25 documented as of this encounter
--- OUTSIDE RECORDS SUMMARY | 2025-09-23 20:50 | XMS_ITS | Encounter Summary ---
[facility] Organization [facility] Address [address] [place] [address] Phone Care Team Providers Care Wrecking Mechanic Name Role Phone Ilya Gusman MD Primary Care Provider [phone] Encounter Details Date Type Department Care Team (Late st Contact Info) Description 09/23/2025 Patient Outreach [facility] Management [address] [place] [phone] Deion Woods Social History Tobacco Use Types Packs/Day Years [...] Author No 05/20/2025 10:06 AM EDT Roberta Wagn MA * Because of a physical, mental, [...] Entry Date Author No 05/20/2025 10:06 AM EDT Roberta Wang MA documented in this encounter Progress Notes * Deion Woods - 09/23/2025 9:21 AM EDT [facility] received notification that Pt has admitted to [facility] on 09/22/25. [facility] contacted facility and [facility] for CM dept passing along my contact information for questions, concerns and dc planning needs. Deion Woods RN Nurse Management Intern Population Health documented in this encounter Plan of Treatment Upcoming Encounters Date Type Department Care Team (Late st Contact Info) Description 10/06/2025 10:45 AM EST Office Visit [facility] - Internal Medicine [address] [place] [phone] Ilya Gusman MD [address] [place] [phone] Christophe Dailey MD [address] [place] [phone] 01/18/2026 1:00 PM EST Office Visit [facility] [address] [place] [address] Porsha Marsh, REPRODUCTIVE SURGEON 70 [place] [address] 02/22/2026 11:00 AM EDT Office Visit [facility] [address] [place] [address] [address] [place] [phone] Alonso Bae MD [address] [place] [address] 2 [place] [address] 07/17/2026 2:00 PM EDT Office Visit [facility] - Internal Medicine [address] [place] [phone] Ilya Gusman MD [address] [place] [phone] 07/19/2026 11:40 AM EDT Office Visit [facility] [address] [place] [address] Yesi Perez MD [address] [place] [address] documented as of this encounter Visit Diagnoses Not on filedocumented in this encounter Additional Health Concerns Assessment Noted Time PHQ-9 Depression Total Score: 16 025 11:49 AM EDT documented as of this encounter Care Teams Wrecking Mechanic Relationship Specialty Start Date End Date Ilya Gusman MD [address] [place] [phone] PCP - General 05/14/17 [facility] 09/01/25 documented as of this encounter
--- OUTSIDE RECORDS SUMMARY | 2025-09-23 20:50 | XMS_ITS | Encounter Summary ---
Author Organization [facility] Address [address] [place] [address] Phone Care Team Providers Care Epic Director Name Role Phone Ilya Gusman MD Primary Care Provider [phone] Encounter Details Date Type Department Care Team (Late st Contact Info) Description 09/02/2025 Orders Only [facility] - Health Information Department [address] [place], [place] [phone] Scan, No Provider Available [address] [facility] [place] [address] Social History Tobacco Use Types Packs/Day Years [...] Entry Date Author No 05/20/2025 10:06 AM Roberta Ardon MA documented in this encounter Plan of Treatment Upcoming Encounters Date Type Department Care Team (Late st Contact Info) Description 10/06/2025 10:45 AM EST Office Visit [facility] - Internal Medicine [address] [place] [phone] Ilya Gusman MD [address] [place] [phone] Christophe Dailey MD [address] [place] [phone] 01/18/2026 1:00 PM EST Office Visit [facility] [address] [place] [address] 1 [place] [address] Porsha Marsh CNP 70 [place] [address] 02/22/2026 11:00 AM EDT Office Visit [facility] [address] [place] [address] [address] [place] [phone] Alonso Bae MD [facility] [address] [place] [address] 07/17/2026 2:00 PM EDT Office Visit [facility] - Internal Medicine [address] [place] [phone] Ilya Gusman MD [address] [place] [phone] 07/19/2026 11:40 AM EDT Office Visit [facility] [address] [address] Yesi Perez MD 70 [place] [address] documented as of this encounter Procedures Procedure Name Priority Date/Time Associated Diagnosis Comments DIABETES EYE EXAM Routine 09/01/2025 3:14 PM EDT documented in this encounter Results * Hm Diabetes Eye Exam (09/01/2025 3:14 PM EDT) us No Provider Available Scan [facility] nal Result documented in this encounter Visit Diagnoses Not on filedocumented in this encounter Additional Health Concerns Assessment Noted Time PHQ-9 Depression Total Score: 16 025 11:49 AM EDT documented as of this encounter Care Teams Epic Director Relationship Specialty Start Date End Date Ilya Gusman MD [address] [place] [phone] PCP - General 05/14/17 [facility] 09/01/25 documented as of this encounter
--- OUTSIDE RECORDS SUMMARY | 2025-09-23 20:50 | XMS_ITS | Clinical Summary ---
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 07/03/2025 Scanned Document [facility] Information Department [address] [place] [place] [phone] Scan, No Provider Available <No scans attached> 07/02/2025 Scanned Document [facility] Information Department [address] [place] [place] [phone] Scan, No Provider Available <No scans attached> 07/01/2025 Telephone [facility] [address] [place] [phone] Ilya Gusman MD 06/24/2025 Patient Outreach [facility] Management [address] [place] [phone] Deion Woods Post Hospitalization Follow Up 06/23/2025 Scanned Document [facility] Information Department [address] [place] [phone] Scan, No Provider Available <No scans attached> from Last 3 Months Immunizations Immunization Administration Dates Next Due Hep B, Dialysis 03/02/2014 Hepatitis B 03/27/2018 Influenza TIV (IM) 10/06/2016,08/25/2012 Influenza Vaccine 08/05/2023,08/08/2022,10/20/20 13 Influenza Vaccine 19 yrs and older Quadrivalent PF 07/24/2015 Influenza Vaccine 6 mos-64 y rs Quadrivalent PF 07/11/2020,11/01/2019,08/05/2018 Influenza Vaccine Dose 65 years + PF 08/21/2024, 08/05/2023,08/08/2022 Influenza, Quadrivalent 08/05/2018 Influenza, Unspecified 08/08/2021,2019,11/01/2019,08/05,08/07/2017,09/13/2016,10/20/2013 ,09/25/2003,10/09/2002 Moderna Bivalent Booster Cov id-19 Vaccine 09/05/2022 Moderna Sars-cov-2 Vaccination 03/13/2021,2020 Pneumococcal Conjugate 13-Valent 03/27/2018 Pneumococcal Polysaccharide (Pneumo-23) 01/15/2019,01/15/2013 Shingrix (Recombinant Zoster Vaccine) 11/01/2019 TD Preservative Free 05/17/2016 Tdap 06/09/2019,02/12/2007 Family History Medical History Relation Comments Anxiety disorder Father Bipolar disorder Father Coronary artery disease Father Depression Father Diabetes type II Father Heart attack Father Hyperlipidemia Father Hypertension Father Anxiety disorder Mother Bipolar disorder Mother Depression Mother Breast cancer Neg Hx Colon cancer Neg Hx Kidney cancer Neg Hx Lung cancer Neg Hx Melanoma Neg Hx Ovarian cancer Neg Hx Prostate cancer Neg Hx Stroke Neg Hx Testicular cancer Neg Hx Uterine cancer Neg Hx Relation Status Comments Brother 1 Alive Brother 2 Alive Father Maternal Grandfather Maternal Grandmother Mother Paternal Grandfather Paternal Grandmother Sister 1 Alive Sister 2 Alive Sister 3 Alive Social History Tobacco Use Types Packs/Day Years [...] file Not on file Not on file Last Filed Vital Signs Vital Sign Reading Time Taken Comments Blood Pressure 130/74 08/30/2025 10:22 AM EDT Pulse 76 08/30/2025 10:22 AM EDT Temperature 36.8 C (98.3 F) 08/30/2025 10:22 AM EDT Respiratory Rate 23 08/08/2025 11:05 AM EDT Oxygen Saturation 99% 08/30/2025 10:22 AM EDT Inhaled Oxygen Concentration - - Weight 84.8 kg (187 lb) 08/08/2025 7:20 AM EDT Height 175.3 cm (5' 9 ) 08/08/2025 7:20 AM EDT Body Mass Index 27.62 08/08/2025 7:20 AM EDT Plan of Treatment Upcoming Encounters Date Type Department Care Team (Late st Contact Info) Description 10/06/2025 10:45 AM EST Office Visit [facility] [address] [place] [place] [phone] Ilya Gusman MD [address] [place] [phone] Christophe Dailey MD [address] [place] [phone] 01/18/2026 1:00 PM EST Office Visit [facility] [address] [phone] Porsha Marsh, RED HAT LINUX ENGINEER [address] [place] [address] 02/22/2026 11:00 AM EDT Office Visit [facility] [address] [place] [address] [address] [place] [phone] Alonso Bae MD [address] [place] [address] [address] [place] [address] 07/17/2026 2:00 PM EDT Office Visit [facility] [address] [place] [place] [phone] Ilya Gusman MD [address] [place] [phone] 07/19/2026 11:40 AM EDT Office Visit [facility] [address] [phone] Yesi Perez MD [address] [place] [address] Health Maintenance Due Date Last Done Comments [facility] Topic Shingrix (2 of 2) 12/27/2019 11/01/2019 [facility] Topic Depression Remission 06/04/2025 COVID-19 Vaccine ( season) 2025 08/21/2024, 09/23/2023, 09/05/2022, Additional history exists [facility] Topic Influenza (Flu) Seasonal (#1) 2025 08/21/2024, 08/05/2023, 08/05/2023, Additional history exists [facility] Topic Microalbumin Urine 02/04/2026 02/04/2025, 12/26/2023, 12/14/2021, Additional history exists [facility] Topic A1C Diabetes 02/14/20262024, 08/17/2025, 06/03/2025, Additional history exists [facility] Topic PSA 07/18/2026 07/18/2025, 01/2025, 02/18/2025, Additional history exists [facility] Topic Lipid Profile 08/17/202608/17, 03/26/2025, 03/10/2025, Additional history exists [facility] Diabetic Ophthalmology Exam 09/01/2027 09/01/2025, 06/23/2024, 06/23/2024, Additional history exists [facility] Topic Colonoscopy 07/21/2028 025, 05/11/2024, 05/11/2024, Additional history exists [facility] Topic DTaP/TDAP/TD (4 - Td or Tdap) 06/09/2029 06/09/2019, 05/17/2016, 02/12/2007 [facility] Topic Pneumococcal Vaccine (HEDIS/Adult) Completed 01/15/2019, 03/27/2018, 01/15/2013 [facility] Topic Hepatitis C Screening Completed 06/05/2020 [facility] Topic Advanced Planning Documents Completed 09/23/2025 [facility] RSV (under 20 months) Aged Out No longer eligible based on patient's age to complete this topic [facility] Topic HIB Vaccines Aged Out No longer eligible based on patient's age to complete this topic Medical Devices Implanted Type Area Corporate Webmaster Device Identifier Shelf Expiration Date Model / Serial / Lot \[id number]\ Implanted:Qty : 1 on 06/25/2017 by Alejandro Lion MD at [facility] Explanted:at [facility] (Quantity not on file) N/A: Spine Lumbar NUVASIVE 10/26/2021 [id number] / [id number] / Description:OSTEOCEL,[id number] PRO MEDIUM Screw,[id number] 5,Shank,8.5x5 5 Implanted:Qty : 1 on 06/25/2017 by Alejandro Lion MD at [facility] N/A: Spine Lumbar NUVASIVE [id number] / [id number] / Screw,[id number] 1 Tulip Reline - [id number] Implanted:Qty : 2 on 06/25/2017 by Alejandro Lion MD at [facility] N/A: Spine Lumbar NUVASIVE 06/25/2017 [id number] / / N/A Screw,[id number] 0 Reline Lock - [id number] Implanted:Qty : 4 on 06/25/2017 by Alejandro Lion MD at [facility] N/A: Spine Lumbar NUVASIVE 06/25/2017 [id number] / / N/A Oblique,Tlif [id number] 4deg - [id number] Implanted:Qty : 1 on 06/25/2017 by Alejandro Lion MD at [facility] N/A: Spine Lumbar NUVASIVE 06/25/2017 [id number] / / Screw,[id number] 5,Reline 8.5x55mm - [id number] Implanted:Qty : 1 on 06/25/2017 by Alejandro Lion MD at [facility] N/A: Spine Lumbar NUVASIVE 06/25/2017 [id number] / / Screw,[id number] Reline [id number] - [id number] Implanted:Qty : 1 on 06/25/2017 by Alejandro Lion MD at [facility] N/A: Spine Lumbar NUVASIVE 06/25/2017 [id number] / / Holden,[id number] Prebent 40mm - [id number] Implanted:Qty : 1 on 06/25/2017 by Alejandro Lion MD at [facility] N/A: Spine Lumbar NUVASIVE 06/25/2017 [id number] / / Holden,[id number] 5.5x50 Lordotic Implanted:Qty : 1 on 06/25/2017 by Alejandro Lion MD at [facility] N/A: Spine Lumbar NUVASIVE [id number] / [id number] / Screw,[id number] 0,Shank 8.5x50 Implanted:Qty : 1 on 06/25/2017 by Alejandro Lion MD at [facility] N/A: Spine Lumbar NUVASIVE [id number] / [id number] / [place],[id number] Quick Super Plus - [id number] Implanted:Qty : 2 on 07/29/2018 by Tc Story MD at [facility] 07/24/2019 [id number] / / [id number] [place],201813 Quick Super Plus - [id number] Implanted:Qty : 1 on 07/29/2018 by Tc Story MD at [facility] [id number] 08/23/2019 [id number] / / [id number] Screw,Polyaxi al Reline 4.5x40m - [id number] Implanted:Qty : 4 on 08/09/2019 by Alejandro Lion MD at [facility] [id number] / / Screw,Polyaxi al Reline 4.5x45m - [id number] Implanted:Qty : 3 on 08/09/2019 by Alejandro Lion MD at [facility] [id number] / / Screw,Polyaxi al Reline 4.5x50m - [id number] Implanted:Qty : 1 on 08/09/2019 by Alejandro Lion MD at [facility] [id number] / / Holden,Lordotic Reline 5.4a692iy - [id number] Implanted:Qty : 2 on 08/09/2019 by Alejandro Lion MD at [facility] [id number] / / Screw,[id number] Reline Lock - [id number] Implanted:Qty : 8 on 08/09/2019 by Alejandro Lion MD at [facility] [id number] / / Procedures Procedure Name Priority Date/Time Associated Diagnosis Comments HM DIABETES EYE EXAM Routine 09/01/2025 3:14 PM EDT XR CHEST 2 VW STAT 08/30/2025 10:58 AM EDT Acute bronchitis, unspecified organism POLYSOMNOGRAM Routine 08/26/2025 12:11 PM EDT POCT GLUCOSE METER Routine 08/08/2025 11 :03 AM EDT TISSUE EXAM Routine 08/08/2025 9:48 AM EDT MT FASCT PRTL PALMAR 1 DGT PROX IPHAL JT W/WO RPR 08/08/2025 9:29 AM EDT Right hand Dupuytrens contracture Special Needs ALUMINUM HAND ANESTHESIA PERIPHERAL BLOCK Routine 08/08/2025 8:00 AM EDT US GUIDANCE ANESTHESIA Routine 08/08/2025 6:59 AM EDT XR SHOULDER 2+ VW RIGHT STAT 08/05/2025 12:55 PM EDT Right anterior shoulder pain BASIC METABOLIC PANEL Routine 07/18/2025 11:42 AM EDT History of pulmonary embolus (PE) CBC Routine 07/18/2025 11:42 AM EDT History of pulmonary embolus (PE) PSA Routine 07/18/2025 11:42 AM EDT Prostate cancer (CMS/HCC) ECG 12-LEAD Today 07/18/2025 9:59 AM EDT Essential hypertension HEMOGLOBIN A1C Routine 06/03/2025 1:28 PM EDT Type 2 diabetes mellitus without complication, without long-term current use of insulin (CMS/HCC) LIPID PANEL Add-On 03/26/2025 8:02 AM EDT MICROALBUMIN, URINE, RANDOM Routine 02/04/2025 10:52 AM EDT Type 2 diabetes mellitus without complication, without long-term current use of insulin (CMS/HCC) COLONOSCOPY Routine 05/11/2024 11:59 AM EDT HEPATITIS C ANTIBODY W/ REFL TO HCV RNA, QN, PCR Routine 06/05/2020 8:10 AM EDT Alcohol use disorder, severe, dependence (CMS/HCC) from Last 3 Months or Most Recently Relevant to Health Maintenance Results * Diabetes Eye Exam (09/01/2025 3:14 PM EDT) us No Provider Available Scan HEALTH MAINTENANCE Fi nal Result * X-ray chest 2 views (08/30/2025 10:58 AM EDT) Anatomical Region Laterality Modality Body Computed Radiogr aphy 08/30/2025 10:4 6 AM EDT Impressions 08/30/2025 11:08 AM EDT IMPRESSION: 1. No definite evidence of acute cardiopulmonary process. Narrative 08/30/2025 11:08 AM EDT HISTORY: cough x 2 weeks COMPARISON: Comparison is made to 10/31/2024. TECHNIQUE: AP and lateral radiographs of the chest are provided. In total, 3 views are provided for interpretation. FINDINGS: Tubes and lines: None Heart and mediastinum: Cardiac silhouette and mediastinal contours are unchanged. Lungs and pleura: There is no evidence of confluent airspace opacity to suggest pneumonia. Neither pleural fluid collection nor pneumothorax are identified. Bones and soft tissues: Changes of thoracic spine fusion are again visualized. Hardware appears unchanged. Healed right-sided rib fractures are again visualized. Procedure Note Delvis Box MD - 08/30/2025 HISTORY: cough x 2 weeks COMPARISON: Comparison is made to 10/31/2024. TECHNIQUE: AP and lateral radiographs of the chest are provided. In total,3 views are provided for interpretation. FINDINGS: Tubes and lines: None Heart and mediastinum: Cardiac silhouette and mediastinal contours areunchanged. Lungs and pleura: There is no evidence of confluent airspace opacity tosuggest pneumonia. Neither pleural fluid collection nor pneumothorax are identified. Bones and soft tissues: Changes of thoracic spine fusion are againvisualized. Hardware appears unchanged. Healed right-sided rib fractures are againvisualized. IMPRESSION: 1. No definite evidence of acute cardiopulmonary process. Nito Perez RED HAT LINUX ENGINEER IMG XR PROCEDURES Final Resu lt * Polysomnography (08/26/2025 12:11 PM EDT) us Ilya Gusman MD [facility] ORDERABLES Final R esult * POCT Glucose Meter (08/08/2025 11:03 AM EDT) POC Glucose 93 70 - 100 mg/dL 08/08/2025 11:05 AM EDT [facility] Comment:@Molybdenum Steamer Operator:Pam Lin Blood 08/08/2025 11:0 3 AM EDT 08/08/2025 11:05 AM EDT Tacho Faye MD LAB POCT ORDERABLES - DEVICE Final Result [facility] [address] [place] [address], * Routine Pathology Tissue Exam (08/08/2025 9:48 AM EDT) Case Report Surgical Pathology Case: [id number] Authorizing Provider: Tacho Faye MD Collected: 08/08/2025 0948 Ordering Location: [facility] - Surgery Received: 08/08/2025 1320 Pathologist: Winifred Cosme MD Specimen: Hand, RIGHT HAND DUPUYTRENS 08/10/2025 2:15 PM EDT [facility] Pre-Operative Diagnosis Right hand dupuytren's contracture 08/10/2025 2:15 PM EDT [facility] Post-Operative Diagnosis Right hand dupuytren's contracture 08/10/2025 2:15 PM EDT [facility] Procedures Right hand fasciectomy with excision dupuytren's contracture including small finger proximal interphalangeal joint and first webspace and first metacarpal phalangeal joint - right 08/10/2025 2:15 PM EDT [facility] Final Diagnosis SOFT TISSUE, RIGHT HAND, EXCISION: FIBROADIPOSE TISSUE WITH CELLULAR FIBROBLASTIC PROLIFERATION, CONSISTENT WITH PALMAR FIBROMATOSIS (DUPUYTREN'S CONTRACTURE). 08/10/2025 2:15 PM EDT [facility] at 1415 EDT Gross Description A. Hand. Received in formalin labeled Adolfo Zaragoza and right hand Dupuytren's is a 2.5 x 2.2 x 0.9 cm aggregate of irregular pink-white fibrous tissue fragments admixed with pink-kaur soft tissue. Sectioning reveals an unremarkable cut surface. No discrete lesions or masses grossly identified. Drainage Engineer sections are submitted in A1. AK 08/08/25 08/10/2025 2:15 PM EDT [facility] Tissue (Hand) 08/08/2025 9:4 8 AM EDT 08/08/2025 1:20 PM EDT us Tacho Faye MD LAB PATHOLOGY/CYTOLOGY ORDERA BLES Final Result [facility] [address] [place] [address], * Peripheral Block (08/08/2025 8:00 AM EDT) Narrative William Edwards MD - 08/08/2025 8:00 AM EDT William Edwards MD 08/08/2025 8:21 AM Peripheral Block Performed by: William Edwards MD Authorized by: William Edwards MD Procedure was performed after anesthesia start time, but prior to induction: No Block Start Time: 08/08/2025 8:00 AM Block End Time: 08/08/2025 8:00 AM Peripheral Nerve Block: Laterality: Right Upper Extremity: supraclavicular block Reason for Block: primary anesthetic Anesthesiologist: William Edwards MD patient identified, IV checked, site marked, risks and benefits discussed, surgical consent, monitors and equipment checked, pre-op evaluation, timeout performed and anesthesia consent Technique: Injection Technique: Single-shot Patient Position: Supine Monitoring: quality assurance monitor, continuous pulse ox, continuous capnometry and blood pressure Site Prep/Protection: Chlorhexidine Needle Gauge: 22 G Needle Length: 50 mm Needle Localization: Ultrasound guidance image(s) available in PACS/Epic Sedation: Physical Status during block: Sedated Dosing: Midazolam (VERSED) injection 2mg/2mL - Intravenous 2 mg - 08/08/2025 8:00:00 AM fentaNYL (PF) (SUBLIMAZE) injection 50 mcg/mL - Intravenous 100 mcg - 08/08/2025 8:00:00 AM ropivacaine (NAROPIN) injection 0.5 % - Injection 30 mL - 08/08/2025 8:00:00 AM Assessment: Injection Assessment: divided doses, block aspiration negative, low pressure injection and normal resistance Paresthesia: None Complications: Complications: none us William Edwards MD ANESTHESIA ORDERABLES Final Resu lt * Anesthesia ultrasound guidance (08/08/2025 6:59 AM EDT) Narrative SYSTEMGENERATED, DOCUMENTATION - 08/08/2025 6:59 AM EDT This order does not contain a finalized report and only contains images. This order has been auto-finalized. us Micha Hatch MD IMG US PROCEDURES Final Resul t * X-ray shoulder 2+ views RIGHT (08/05/2025 12:55 PM EDT) Anatomical Region Laterality Modality Upper Extremities, Shoulder Right Comp uted Radiography 08/05/2025 12:4 5 PM EDT Impressions 08/05/2025 1:11 PM EDT IMPRESSION: No evidence for acute osseous process. Narrative 08/05/2025 1:11 PM EDT Right shoulder, 4 views. HISTORY: right anterior shoulder pain s/p fall 2 weeks ago. Hx bilateral RTC repair several years ago COMPARISON: None. FINDINGS: There is no evidence for acute displaced fracture or malalignment. There are moderate degenerative changes of the glenohumeral and acromioclavicular joints. The visualized soft tissues appear unremarkable. Procedure Note Ana Luisa Avina MD - 08/05/2025 Right shoulder, 4 views. HISTORY: right anterior shoulder pain s/p fall 2 weeks ago. Hx bilateralRTC repair several years ago COMPARISON: None. FINDINGS: There is no evidence for acute displaced fracture or malalignment. Thereare moderate degenerative changes of the glenohumeral and acromioclavicular joints. Thevisualized soft tissues appear unremarkable. IMPRESSION: No evidence for acute osseous process. EDT us Nito Perez RED HAT LINUX ENGINEER IMG XR PROCEDURES Final Resu lt * (ABNORMAL) CBC (07/18/2025 11:42 AM EDT) WBC 5.5 4.5 - 10.8 10*3 l 07/18/2025 2:38 PM EDT [facility] RBC 3.51(L) 4.70 - 6.10 10*6 l 07/18/2025 2:38 PM EDT [facility] Hemoglobin 10.5(L) 14.0 - 18.0 g/dL 07/18/2025 2:38 PM EDT [facility] Hematocrit 32.1(L) 42.0 - 52.0 % 07/18/2025 2:38 PM EDT [facility] MCV 92 80 - 95 fL 07/18/2025 2:38 PM EDT [facility] MCH 29.9 25.4 - 39.0 pg 07/18/2025 2:38 PM EDT [facility] MCHC 32.7 31.0 - 37.0 g/dL 07/18/2025 2:38 PM EDT [facility] RDW 17.1(H) 11.5 - 14.5 % 07/18/2025 2:38 PM EDT [facility] Platelets 252 150 - 450 10*3 l 07/18/2025 2:38 PM EDT [facility] MPV 9.8 7.0 - 11.0 fL 07/18/2025 2:38 PM EDT [facility] Anisocytosis Present(A) None Seen 07/18/2025 2:38 PM EDT [facility] Blood Venous blood / Unknown Venipuncture / Unknown 07/18/2025 11:42 AM EDT 07/18/2025 2:33 PM EDT Porsha Marsh CNP LAB BLOOD ORDERABLES Final Result [facility] [address] [place] [address], * PSA (07/18/2025 11:42 AM EDT) PSA <=0.1 0.0 - 4.0 ng/mL 07/18/2025 3:09 PM EDT [facility] Comment:This test is perform ed on the Adan Brianda 8000 analyzer and is an Immunoassay methodology. Patient results determined by assays using different manufacterers for methods may not be comparable. Blood Venous blood / Unknown Venipuncture / Unknown 07/18/2025 11:42 AM EDT 07/18/2025 2:32 PM EDT Alonso Bae MD LAB BLOOD ORDERABLES Fin al Result [facility] [address] [place] [address], [place] [phone] * (ABNORMAL) BASIC METABOLIC PANEL (07/18/2025 11:42 AM EDT) Glucose 119(H) 70 - 100 mg/dL 07/18/2025 3:02 PM EDT [facility] BUN 20(H) 6 - 19 mg/dL 07/18/2025 3:02 PM EDT [facility] Creatinine 0.9 0.4 - 1.2 mg/dL 07/18/2025 3:02 PM EDT [facility] eGFR >60.00 >60.00 mL/min/1.7 3m*2 07/18/2025 3:02 PM EDT [facility] Sodium 137 135 - 145 mmol/L 07/18/2025 3:02 PM EDT [facility] Potassium 4.4 3.4 - 5.1 mmol/L 07/18/2025 3:02 PM EDT [facility] Chloride 101 98 - 109 mmol/L 07/18/2025 3:02 PM EDT [facility] CO2 21(L) 24 - 32 mmol/L 07/18/2025 3:02 PM EDT [facility] Anion Gap 15(H) 6 - 12 mmol/L 07/18/2025 3:02 PM EDT [facility] Calcium 9.4 8.5 - 10.5 mg/dL 07/18/2025 3:02 PM EDT [facility] Estimated Creatinine Clearance 87.2 mL/min 07/18/2025 3:02 PM EDT [facility] Blood Venous blood / Unknown Venipuncture / Unknown 07/18/2025 11:42 AM EDT 07/18/2025 2:32 PM EDT us Porsha Marsh [facility] LAB BLOOD ORDERABLES Final Result [facility] [address] [place] [address], [place] [phone] * ECG (07/18/2025 9:59 AM EDT) 07/18/2025 9:5 9 AM EDT 07/22/2025 9:46 AM EDT Impressions MUSE - 07/22/2025 9:46 AM EDT Test Reason : Reason for Exam:->f/u Blood Pressure : */* mmHG Vent. Rate : 88 BPM Atrial Rate : 88 BPM P-R Int : 176 ms QRS Dur : 98 ms QT Int : 378 ms P-R-T Axes : -1 -27 5 degrees QTc Int : 457 ms Normal sinus rhythm Normal ECG Referred By: Shelli Benoit Confirmed By: Shelli Benoit Narrative Procedure Note Shelli Benoit MD - 07/22/2025 IMPRESSION Test Reason : Reason for Exam:->f/u Blood Pressure : */* mmHG Vent. Rate : 88 BPM Atrial Rate : 88 BPM P-R Int : 176 ms QRS Dur : 98 ms QT Int : 378 ms P-R-T Axes : -1 -27 5 degrees QTc Int : 457 ms Normal sinus rhythm Normal ECG Referred By: Shelli Benoit Confirmed By: Shelli Benoit us Yesi Perez MD ECG ORDERABLES Final Result MUSE * (ABNORMAL) LIPID PANEL (03/26/2025 8:02 AM EDT) Cholesterol 150 120 - 200 mg/dL 03/26/2025 9:43 AM EDT [facility] HDL 94 35 - 100 mg/dL 03/26/2025 9:43 AM EDT [facility] LDL Calculated 43(L) 60 - 130 mg/dL 03/26/2025 9:43 AM EDT [facility] Triglycerides 65 35 - 150 mg/dL 03/26/2025 9:43 AM T [facility] Cholesterol Risk Ratio 1.60 mg/dL 03/26/2025 9:43 AM T [facility] Comment:Less than the averag e risk of developing coronary heart disease. Blood Venous blood / Unknown Venipuncture / Unknown 03/26/2025 8:02 AM EDT 03/26/2025 8:13 AM EDT Jenny Valdez DO LAB BLOOD ORDERABLES Final Resul t Performing Organization Address City/[facility]/ZIP Co de Phone Number [facility] [address] [place] [address], [place] [phone] * Microalbumin, urine, random (02/04/2025 10:52 AM EDT) Microalbumin, Urine <1.2 mg/dL 02/04/2025 2:18 PM EDT [facility] Comment:Reference range not established Micro Alb Ratio 2:18 PM EDT [facility] Comment: Unable to determine A/C ratio due to low Albumin result. Microalbumin/ Creatinine Ration Reference Range <30 Normal to mildly increased 30-300 Moderately increased >300 Severely increased Results of this assay are method-dependent, and should not be compared with results from another laboratory Creatinine, Urine 114.0 mg/dL 02/04/2025 2:18 PM EDT [facility] Comment:Reference range not established Urine Urine specimen obtained by clean catch procedure / Unknown Non-blood Collection / Unknown 02/04/2025 10:52 AM EDT 02/04/2025 12:44 PM EDT us Ilya Gusman MD LAB URINE ORDERABLES Final Resu lt Performing Organization Address [facility]/ZIP Co de Phone Number [facility] [address] [place] [address], [place] [phone] * Hm Colonoscopy (05/11/2024 11:59 AM EDT) No Provider Available Scan HEALTH MAINTENANCE Fi nal Result * Hepatitis C Antibody (06/05/2020 8:10 AM EDT) Hep C Ab Interp Non Reactive Non Reactive 06/05/2020 11:46 AM EDT [facility] Comment: Antibodies to HCV were not detected, this does not exclude the possibility of exposure to HCV. Supplemental testing is not required unless recent infection is suspected or other evidence exists to indicate HCV infection. For supplemental testing, qualitative Hepatitis C Viral RNA by PCR, with Reflexive Quantitation is recommended ([facility] Test #[id number]). Qualitative testing, without reflexive Quantitation is also available ([facility] Test #[id number]). Please note that these tests are available only on an outpatient basis. The result of a sample is given in the form of a cutoff-index (signal sample/cutoff) with a result interpretation of: COI<0.90 Non Reactive COI>1.00 Reactive 0.90<COI>1.00 Borderline Blood Capillary blood specimen / Unknown Venipuncture / Unknown 06/05/2020 8:10 AM EDT 06/05/2020 8:54 AM EDT Jake Gordillo MD LAB BLOOD ORDERABLES Final R esult [facility] [address] [place] [address], from Last 3 Months or Most Recently Relevant to Health Maintenance Insurance [facility] MEDICARE PART A & B GENERIC MOTOR VEHICLE ACCIDENT MEDICARE PART A & B [facility] Advance Directives For more information, please contact: [phone] Documents on File Type Date Recorded Patient Drainage Engineer Expl anation Advance Directives and Living Will 08/07/2019 2:40 PM Health Care Proxy signed 08/07/2019 * Full Code (Latest Code Status on File) Date Activated Date Inactivated Comments 03/26/2025 9:01 AM 03/30/2025 6:32 PM Question Answer Comments Cardiopulmonary Resuscitatio n: for a patient in cardiac or respiratory arrest (Full Code = Attempt Resuscitation, DNR = Do not attempt resuscitation): Full Code Ventilation: for a patient in respiratory distre ss: Intubate and Ventilate * Full Code Date Activated Date Inactivated Comments 10/31/2024 9:27 AM 11/04/2024 4:34 PM Question Answer Comments Cardiopulmonary Resuscitatio n: for a patient in cardiac or respiratory arrest (Full Code = Attempt Resuscitation, DNR = Do not attempt resuscitation): Full Code Ventilation: for a patient in respiratory distre ss: Intubate and Ventilate * Full Code Date Activated Date Inactivated Comments 12/20/2023 7:24 PM 12/21/2023 5:16 PM Question Answer Comments Cardiopulmonary Resuscitatio n: for a patient in cardiac or respiratory arrest (Full Code = Attempt Resuscitation, DNR = Do not attempt resuscitation): Full Code Ventilation: for a patient in respiratory distre ss: Intubate and Ventilate * Full Code Date Activated Date Inactivated Comments 12/12/2023 5:32 AM 12/14/2023 2:39 PM Question Answer Comments Cardiopulmonary Resuscitatio n: for a patient in cardiac or respiratory arrest (Full Code = Attempt Resuscitation, DNR = Do not attempt resuscitation): Full Code Ventilation: for a patient in respiratory distre ss: Intubate and Ventilate * Full Code Date Activated Date Inactivated Comments 12/05/2023 6:12 PM 12/07/2023 7:16 PM Question Answer Comments Cardiopulmonary Resuscitatio n: for a patient in cardiac or respiratory arrest (Full Code = Attempt Resuscitation, DNR = Do not attempt resuscitation): Full Code Ventilation: for a patient in respiratory distre ss: Intubate and Ventilate Healthcare Agents on File Name Relationship Healthcare Agent [facility] p Communication Roxanna Mila Sister Health Care Agent Care Teams Radiology Nurse Relationship Specialty Start Date End Date Ilya Gusman MD [address] [place] [phone] PCP - General 05/14/17 [facility] 09/01/25
--- OUTSIDE RECORDS SUMMARY | 2025-09-23 20:50 | XMS_ITS | Encounter Summary ---
[facility] Address [address] [place] [address] Phone Care Team Providers Care Grades 1 Through 6 Teacher Name Role Phone Ilya Gusman MD Primary Care Provider [phone] Encounter Details Date Type Department Care Team (Late st Contact Info) Description 05/15/2020 Ancillary Orders [facility] [place] [phone] Alejandro Lion MD [facility] [address] [place] [address] Closed fracture of first lumbar vertebra with routine healing, unspecified fracture morphology, subsequent encounter Social History Tobacco Use Types Packs/Day Years [...] have Coronavirus / COVID-19? No / Unsure 05/15/2020 2:28 PM EDT documented as of this encounter Plan of Treatment Upcoming Encounters Date Type Department Care Team (Late st Contact Info) Description 10/06/2025 10:45 AM EST Office Visit [facility] - Internal Medicine [address] [place] [phone] Ilya Gusman MD [address] [place] [phone] Christophe Dailey MD [address] [place] [phone] 01/18/2026 1:00 PM EST Office Visit [facility] [address] [facility] [address] [place] [address] Porsha Marsh, SUPERVISOR WRAPPING ROOM [address] [place] [address] 02/22/2026 11:00 AM EDT Office Visit [facility] [address] [place] [address] [address] [place] [phone] Alonso Bae MD [address] [place] [address] [address] [place] [address] 07/17/2026 2:00 PM EDT Office Visit [facility] - Internal Medicine [address] [place] [phone] Ilya Gusman MD [address] [place] [phone] 07/19/2026 11:40 AM EDT Office Visit [facility] [address] [place] [phone] Yesi Perez MD [address] [place] [address] documented as of this encounter Results * X-ray spine lumbar 2 or 3 views standing (05/15/2020 3:46 PM EDT) Anatomical Region Laterality Modality Spine, L-spine Computed Radiogr aphy 05/15/2020 3:17 PM EDT Impressions 05/15/2020 4:19 PM EDT Impression: Stable postsurgical changes in the lumbar spine. Overall stable appearance of L1 with the fracture line not well seen. Narrative 05/15/2020 4:19 PM EDT Reason for Exam: L/S-spine fusion, follow up L1 fx, L2-3 fusion. Clinical History: Lumbar fusion Comparison: None Technique: 5 views of the lumbar spine, including flexion and extension views. Findings: The L1 vertebral body fracture is not well visualized on radiographs. There is mild loss of height of L1 which appears unchanged from prior exam. L2-3 posterior fusion with intact hardware in stable alignment. There is no spondylolisthesis seen in the neutral position, on flexion or extension. There are multilevel degenerative changes. Procedure Note Luz Maria Green MD - 05/15/2020 Reason for Exam: L/S-spine fusion, follow up L1 fx, L2-3 fusion. Clinical History: Lumbar fusion Comparison: None Technique: 5 views of the lumbar spine, including flexion and extensionviews. Findings: The L1 vertebral body fracture is not well visualized on radiographs.There is mild loss of height of L1 which appears unchanged from prior exam. L2-3 posteriorfusion with intact hardware in stable alignment. There is no spondylolisthesis seen in theneutral position, on flexion or extension. There are multilevel degenerative changes. Impression: Stable postsurgical changes in the lumbar spine. Overall stable appearance of L1 with the fracture line not well seen. Alejandro Lion MD IMG XR PROCEDURES Final Result documented in this encounter Visit Diagnoses Diagnosis Closed fracture of first lumbar vertebra with routine healing, unspecified fracture morphology, subsequent encounter Closed fracture of first lumbar vertebra with routine healing, unspecified fracture morphology, subsequent encounter documented in this encounter Additional Health Concerns [...] documented as of this encounter Care Teams Grades 1 Through 6 Teacher Relationship Specialty Start Date End Date Ilya Gusman MD [address] [place] [phone] PCP - General 05/14/17 [facility] 09/01/25 documented as of this encounter
--- OUTSIDE RECORDS SUMMARY | 2025-09-23 20:50 | XMS_ITS | Encounter Summary ---
Author Organization [facility] [address] [place] [address] Care Team Providers Care Database Support Name Role Phone Tc Story MD Unavailable [phone] Ilya Gusman MD Primary Care Provider [phone] Encounter Details Date Type Department Care Team (Late st Contact Info) Description 06/13/2021 Lab Requisition [address] [phone] Michele Dawkins CRNP [address] [place] [phone] Illness, unspecified Social History Tobacco Use Types [...] Procedure Name Priority Date/Time Associated Diagnosis Comments TSH WITHOUT REFLEX Routine 06/13/2021 6: 10 AM EDT Illness, unspecified VITAMIN D 25 HYDROXY Routine 06/13/2021 6:10 AM EDT Illness, unspecified T4, FREE Routine 06/13/2021 6:10 AM EDT Illness, unspecified VITAMIN B12 Routine 06/13/2021 6:10 AM EDT Illness, unspecified LITHIUM LEVEL Routine 06/13/2021 6:10 AM EDT Illness, unspecified documented in this encounter Results * [place] level (06/13/2021 6:10 AM EDT) [place] 0.70 0.50 - 1.30 mmol/L 06/13/2021 11:53 AM EDT [facility] Blood specimen (specimen) Venipuncture / Unknown 06/13/2021 6:10 AM EDT 06/13/2021 7:26 AM EDT Michele Hailee SANTOSNP LAB BLOOD ORDERABLES Final Res ult Performing Organization Address [facility] de Phone Number [facility] [address] [place] [phone] * (ABNORMAL) Vitamin D 25 Hydroxy (06/13/2021 6:10 AM EDT) Vit D, 25-Hydroxy 17.0(L) 30.0 - 100.0 ng/mL 06/13/2021 7:58 AM EDT [facility] Blood specimen (specimen) Venipuncture / Unknown 06/13/2021 6:10 AM EDT 06/13/2021 7:26 AM EDT Narrative [facility] - 06/13/2021 7:58 AM EDT Vitamin D Reference Ranges: Normal 30-100 ng/mL (Pediatric 20-100) Insufficient 20-30 ng/mL Deficient <20 ng/mL Potentially Toxic >150 ng/mL Reference range has been changed as of 08/22/2020. Michele E Mariza LIMOUSINE RENTAL CLERK LAB BLOOD ORDERABLES Final Res ult Performing Organization Address [facility] de Phone Number [facility] [address] [place] [phone] * Vitamin B12 (06/13/2021 6:10 AM EDT) Vitamin B12 868 211 - 911 pg/mL 06/13/2021 12:08 PM EDT [facility] Blood specimen (specimen) Venipuncture / Unknown 06/13/2021 6:10 AM EDT 06/13/2021 7:26 AM EDT Narrative [facility] - 06/13/2021 12:08 PM EDT Reference range has been changed as of 08/22/2020. us Michele Hailee SANTOSNP LAB BLOOD ORDERABLES Final Res ult Performing Organization Address [facility] Co de Phone Number [facility] [address] [place] [phone] * (ABNORMAL) T4, Free (06/13/2021 6:10 AM EDT) Free T4 0.79(L) 0.89 - 1.76 ng/dL 06/13/2021 7:58 AM EDT [facility] Blood specimen (specimen) Venipuncture / Unknown 06/13/2021 6:10 AM EDT 06/13/2021 7:26 AM EDT us Michele E Mariza LIMOUSINE RENTAL CLERK LAB BLOOD ORDERABLES Final Res ult Performing Organization Address City/[facility] Co de Phone Number [facility] [address] [place] [address] * TSH Without Reflex (06/13/2021 6:10 AM EDT) TSH 2.542 0.340 - 4.820 uIU/mL 06/13/2021 7:58 AM EDT [facility] Blood specimen (specimen) Venipuncture / Unknown 06/13/2021 6:10 AM EDT 06/13/2021 7:26 AM EDT Narrative [facility] - 06/13/2021 7:58 AM EDT Reference range has been changed as of 08/22/2020. us Michele WEBSTER LAB BLOOD ORDERABLES Final Res ult [facility] [address] [place] [address] documented in this encounter Visit Diagnoses Diagnosis Illness, unspecified documented in this encounter Care Teams Database Support Relationship Specialty Start Date End Date Ilya Gusman MD [address] [place] [phone] PCP - General Internal Medicine 03/01/19 Tc Story MD [address] [place] [phone] Physician 04/02/17 documented as of this encounter
--- OUTSIDE RECORDS SUMMARY | 2025-09-23 20:50 | XMS_ITS | Encounter Summary ---
[facility] Address [address] [place] [address] Phone Care Team Providers Care [place]. Representative Name Role Phone Ilya Gusman MD Primary Care Provider [phone] Reason for Visit * Reason Onset Date Comments Med Refill 03/12/2020 Encounter Details Date Type Department Care Team (Late st Contact Info) Description 03/12/2020 Refill [facility] - Internal Medicine [address] [place] [phone] Ilya Gusman MD [address] [place] [phone] Med Refill Social History Tobacco Use [...] have Coronavirus / COVID-19? No / Unsure 03/15/2020 10:40 AM EDT documented as of this encounter Miscellaneous Notes * Telephone Encounter - Jany Daley LPN - 03/13/2020 12:41 PM EDT [facility] last rsx 02/02/20 WHEN WAS LAST OFFICE VISIT? PCP VISIT:01.31.20 WHEN IS NEXT OFFICE VISIT? Future Appointments Date Time Provider Department Center 07/25/2020 10:30 AM Alejandro Lion MD [facility] Last BMP Results: Lab Results Component Value Date GLUCOSE 110 (H) 01/31/2020 CALCIUM 9.2 01/31/2020 NA 143 01/31/2020 K 3.9 01/31/2020 CO2 25 01/31/2020 CL 108 01/31/2020 BUN 16.0 01/31/2020 CREAT 0.8 01/31/2020 BP Readings from Last 5 Encounters: 01/31/20 (!) 146/94 01/25/20 151/81 01/05/20 158/85 12/22/19 160/86 12/10/19 (!) 166/92 Jany Daley LPN Refill Team/LNG MORGAN-Renetta documented in this encounter Plan of Treatment Upcoming Encounters Date Type Department Care Team (Late st Contact Info) Description 10/06/2025 10:45 AM EST Office Visit [facility] - Internal Medicine [address] [place] [phone] Ilya Gusman MD [address] [place] [phone] Christophe Dailey MD [address] [place] [phone] 01/18/2026 1:00 PM EST Office Visit [facility] [address] [facility] 1 [place] [address] Porsha Marsh, COBOL DEVELOPER [address] [place] [address] 02/22/2026 11:00 AM EDT Office Visit [facility] [address] [place] [phone] Alonso Bae MD [address] [place] [address] 07/17/2026 2:00 PM EDT Office Visit [facility] - Internal Medicine [address] [place] [phone] Ilya Gusman MD [address] [place] [phone] 07/19/2026 11:40 AM EDT Office Visit [facility] [address] [facility] 1 [place] [address] Yesi Perez MD [address] [place] [address] documented as of this encounter Visit Diagnoses [...] documented as of this encounter Care Teams U.[place]. Representative Relationship Specialty Start Date End Date Ilya Gusman MD [address] [place] [phone] PCP - General 05/14/17 [facility] 09/01/25 documented as of this encounter
--- OUTSIDE RECORDS SUMMARY | 2025-09-23 20:50 | XMS_ITS | Encounter Summary ---
Author Organization [facility] ystem Address [address] [place] [address] Phone Care Team Providers Care Electric Organ Checker Name Role Phone Ilya Gusman MD Primary Care Provider [phone] Encounter Details Date Type Department Care Team (Late st Contact Info) Description 05/29/2020 Scanned Document [facility] - Health Information Department [address] [place] [address] Scan, No Provider Available [address] [place] [address] <No scans attached> Social History Tobacco Use [...] Description 10/06/2025 10:45 AM EST Office Visit [facility] - Internal Medicine [address] [place] [phone] Ilya Gusman MD [address] [place] [phone] Christophe Dailey MD [address] [place] [phone] 01/18/2026 1:00 PM EST Office Visit [facility] [address] [place] [phone] Porsha Marsh, MARILIA [address] [place] [address] 02/22/2026 11:00 AM EDT Office Visit [facility] [address] [place] [address] [address] [place] [phone] Alonso Bae MD [address] [place] [address] [address] [place] [address] 07/17/2026 2:00 PM EDT Office Visit [facility] - Internal Medicine [address] [place] [phone] Ilya Gusman MD [address] [place] [phone] 07/19/2026 11:40 AM EDT Office Visit [facility] [address] [place] [phone] Yesi Perez MD [address] [place] [address] documented as of this encounter Visit Diagnoses Not on filedocumented in this encounter Additional Health Concerns Infection Onset Date Last Indicated Resolved Time Covid Possible 08/21/2021 08/21/2021 08/21/2021 10 :22 PM EDT Covid Possible 05/24/2022 05/24/2022 05/24/2022 4: 21 PM EDT C difficile Rule-Out 10/03/2022 10/03/2022 022 9:20 AM EST Covid Possible 10/30/2022 10/30/2022 10/30/2022 4 :10 PM EST C difficile Rule-Out 10/30/2022 10/30/2022 [...] documented as of this encounter Care Teams Electric Organ Checker Relationship Specialty Start Date End Date Ilya Gusman MD [address] [place] [phone] PCP - General 05/14/17 [facility] 09/01/25 documented as of this encounter
--- OUTSIDE RECORDS SUMMARY | 2025-09-23 20:50 | XMS_ITS | Encounter Summary ---
[facility] Organization [facility] Address [address] [place] [address] Phone Care Team Providers Care Weathercaster Name Role Phone Ilya Gusman MD Primary Care Provider [phone] Encounter Details Date Type Department Care Team (Late st Contact Info) Description 09/07/2025 Orders Only [facility] - Health Information Department [address] [place] [address] Ilya Gusman MD [address] [place] [phone] Social History Tobacco Use Types Packs/Day [...] [facility] - Internal Medicine [address] [place] [phone] Ilya Gusman MD [address] [place] [phone] Christophe Dailey MD [address] [place] [phone] 01/18/2026 1:00 PM EST Office Visit [facility] [address] [place] [phone] Porsha Marsh CNP [address] [place] [address] 02/22/2026 11:00 AM EDT Office Visit [facility] [address] [place] [phone] Alonso Bae MD [address] [place] [address] [address] [place] [address] 07/17/2026 2:00 PM EDT Office Visit [facility] - Internal Medicine [address] [place] [phone] Ilya Gusman MD [address] [place] [phone] 07/19/2026 11:40 AM EDT Office Visit [facility] [address] [place] [address] Yesi Perez MD [address] [place] [address] documented as of this encounter Procedures Procedure Name Priority Date/Time Associated Diagnosis Comments POLYSOMNOGRAM Routine 08/26/2025 12:11 PM EDT documented in this encounter Results * Polysomnography (08/26/2025 12:11 PM EDT) us Ilya Gusman MD [facility] ORDERABLES Final R esult documented in this encounter Visit Diagnoses Not on filedocumented in this encounter Additional Health Concerns Assessment Noted Time PHQ-9 Depression Total Score: 16 025 11:49 AM EDT documented as of this encounter Care Teams Weathercaster Relationship Specialty Start Date End Date Ilya Gusman MD [address] [place] [phone] PCP - General 05/14/17 [facility] 09/01/25 documented as of this encounter
--- OUTSIDE RECORDS SUMMARY | 2025-09-23 20:50 | XMS_ITS | Encounter Summary ---
Author Organization [facility] ystem Address [address] [place] [address] Phone Care Team Providers Care Second Hand Paper Machine Name Role Phone Ilya Gusman MD Primary Care Provider [phone] Encounter Details Date Type Department Care Team (Late Contact Info) Description 11/08/2019 Orders Only [facility] - Health Information Department [address] [place] [address] Scan, No Provider Available [address] [place] [address] [place] [id number] Social History Tobacco Use Types Packs/Day Years [...] Description 10/06/2025 10:45 AM EST Office Visit [facility] - Internal Medicine [address] [place] [phone] Ilya Gusman MD [address] [place] [phone] Christophe Dailey MD [address] [place] [phone] 01/18/2026 1:00 PM EST Office Visit [facility] [address] [place] [phone] Porsha Marsh CNP [address] [place] [address] 02/22/2026 11:00 AM EDT Office Visit [facility] [address] [place] [address] [address] [place] [phone] Alonso Bae MD [address] [place] [address] [address] [place] [address] 07/17/2026 2:00 PM EDT Office Visit [facility] - Internal Medicine [address] [place] [phone] Ilya Gusman MD [address] [place] [phone] 07/19/2026 11:40 AM EDT Office Visit [facility] [address] [place] [phone] Yesi Perez MD [address] [place] [address] documented as of this encounter Procedures Procedure Name Priority Date/Time Associated Diagnosis Comments TRANSTHORACIC ECHO (TTE) COMPLETE Routine 11/07/2019 documented in this encounter Results * Transthoracic Echo (TTE) (11/07/2019) us No Provider Available Scan CV ECHO PROCEDURES Fi nal Result documented in this encounter Visit [...] documented as of this encounter Care Teams Second Hand Paper Machine Relationship Specialty Start Date End Date Ilya Gusman MD [address] [place] [phone] PCP - General 05/14/17 [facility] 09/01/25 documented as of this encounter
--- OUTSIDE RECORDS SUMMARY | 2025-09-23 20:50 | XMS_ITS | Encounter Summary ---
Author Organization [facility] Address [address] [place] [address] Phone Care Team Providers Care Training And Development Specialist Name Role Phone Ilya Gusman MD Primary Care Provider [phone] Reason for Referral * MRI/CAT/PET Scan - Closed Specialty Diagnoses / Procedures Referred By London blankenship Referred To Contact Radiology Diagnoses Right knee pain Procedures MRI knee right without contrast Tc Story MD [address] [address] Phone: tel: fax: Referral ID Status Reason Start Date Expiration Date Visits Re quested Visits Authorized [id number] Closed 11/11/2019 01/10/2020 1 1 Encounter Details Date Type Department Care Team (Late st Contact Info) Description 11/11/2019 Ancillary Orders [facility] - MR Imaging [address] [place] [phone] Tc Story MD [address] [address] Right knee pain Social History Tobacco Use Types Packs/Day Years [...] Description 10/06/2025 10:45 AM EST Office Visit [facility] - Internal Medicine [address] [place] [phone] Ilya Gusman MD [address] [place] [phone] Christophe Dailey MD [address] [place] [phone] 01/18/2026 1:00 PM EST Office Visit [facility] [address] [address] Porsha Marsh, WOOL HANKER 70 [place] [address] 02/22/2026 11:00 AM EDT Office Visit [facility] [address] [place] [address] Alonso Bae MD [facility] [address] [place] [address] 07/17/2026 2:00 PM EDT Office Visit [facility] - Internal Medicine [address] [place] [phone] Ilya Gusman MD [address] [place] [phone] 07/19/2026 11:40 AM EDT Office Visit [facility] [address] [address] [place] [address] Yesi Perez MD 70 [facility] [place] [address] documented as of this encounter Results * MRI knee right without contrast (11/27/2019 9:13 AM EST) Anatomical Region Laterality Modality Lower Extremities, Knee Right Magnetic Resonance 11/27/2019 8:26 AM EST Impressions 11/29/2019 9:39 AM EST Impression: 1.Status post quadriceps tendon repair. Tendon repair appears intact. 2. Small Aguillon's cyst. Narrative 11/29/2019 9:39 AM EST Study: MRI of the right knee. Indication: Right knee to evaluate tendon repair patient reports prior quadriceps tendon repair status post rupture Comparison: Radiograph 09/24/2019 Technique: Multiplanar, multisequence imaging was performed through the knee without administration of intravenous contrast, per standard department protocol. Findings: Menisci: Intact. ACL:Intact. PCL:Intact. MCL:Intact. LCL complex:Intact. Cartilage:Intact. Marrow signal:No marrow replacing process. Extensor mechanism:The patient is status post quadriceps tendon repair. There is heterogeneous signal within the distal tendon and at its insertion on the patella, compatible with prior surgery without evidence of re-tear. Patellar alignment is unremarkable. Joint effusion: None. Aguillon's cyst:Small. Procedure Note Leobardo Miner MD - 11/29/2019 Study: MRI of the right knee. Indication: Right knee to evaluate tendon repair patient reports priorquadriceps tendon repair status post rupture Comparison: Radiograph 09/24/2019 Technique: Multiplanar, multisequence imaging was performed through theknee without administration of intravenous contrast, per standard departmentprotocol. Findings: Menisci: Intact. ACL:Intact. PCL:Intact. MCL:Intact. LCL complex:Intact. Cartilage:Intact. Marrow signal:No marrow replacing process. Extensor mechanism:The patient is status post quadriceps tendon repair.There is heterogeneous signal within the distal tendon and at its insertion on thepatella, compatible with prior surgery without evidence of re-tear. Patellaralignment is unremarkable. Joint effusion: None. Aguillon's cyst:Small. Impression: 1.Status post quadriceps tendon repair. Tendon repair appears intact. 2. Small Aguillon's cyst. Tc Story MD IMG MRI PROCEDURES Final R esult documented in this encounter Visit Diagnoses Diagnosis Right knee pain Pain in joint, lower leg Right knee pain Pain in joint, lower leg documented in this encounter Additional Health Concerns [...] Noted Time PHQ-9 Depression Total Score: 10 01/15/ 019 3:07 PM EST documented as of this encounter Care Teams Training And Development Specialist Relationship Specialty Start Date End Date Ilya Gusman MD [address] [place] [phone] PCP - General 05/14/17 [facility] 09/01/25 documented as of this encounter
--- OUTSIDE RECORDS SUMMARY | 2025-09-23 20:50 | XMS_ITS | Encounter Summary ---
Author Organization [facility] Address [address] [place] [address] Phone Care Team Providers Care Financial Processing Clerk Name Role Phone Ilya Gusman MD Primary Care Provider [phone] Encounter Details Date Type Department Care Team (Late st Contact Info) Description 08/16/2025 Scanned Document [facility] - Health Information Department [address] [place], [place] [phone] Scan, No Provider Available [address] [facility] [place] [address] <No scans attached> Social History Tobacco Use [...] 10:45 AM EST Office Visit [facility] - Internal Medicine [address] [place] [phone] Ilya Gusman MD [address] [place] [phone] Christophe Dailey MD [address] [place] [phone] 01/18/2026 1:00 PM EST Office Visit [facility] [address] [address] Porsha Marsh CNP 70 [place] [address] 02/22/2026 11:00 AM EDT Office Visit [facility] [address] [place] [phone] Alonso Bae MD [address] [place] [address] 07/17/2026 2:00 PM EDT Office Visit [facility] - Internal Medicine [address] [place] [phone] Ilya Gusman MD [address] [place] [phone] 07/19/2026 11:40 AM EDT Office Visit [facility] [address] [address] Yesi Perez MD 70 [place] [address] documented as of this encounter Visit Diagnoses Not on filedocumented in this encounter Additional Health Concerns Assessment Noted Time PHQ-9 Depression Total Score: 16 025 11:49 AM EDT documented as of this encounter Care Teams Financial Processing Clerk Relationship Specialty Start Date End Date Ilya Gusman MD [address] [place] [phone] PCP - General 05/14/17 [facility] 09/01/25 documented as of this encounter
--- OUTSIDE RECORDS SUMMARY | 2025-09-23 20:51 | XMS_ITS | Encounter Summary ---
Author Organization [facility] Address [address] [place] [address] Phone Care Team Providers Care Marketing Assistant Name Role Phone Ilya Gusman MD Primary Care Provider [phone] Encounter Details Date Type Department Care Team (Late st Contact Info) Description 07/21/2025 Scanned Document [facility] - Health Information Department [address] [place], [place] [phone] Scan, No Provider Available [address] [facility] [place] [address] <No scans attached> Social History Tobacco Use [...] Description 10/06/2025 10:45 AM EST Office Visit [facility] - Internal Medicine [address] [place] [phone] Ilya Gusman MD [address] [place] [phone] Christophe Dailey MD [address] [place] [phone] 01/18/2026 1:00 PM EST Office Visit [facility] [address] [address] Porsha Marsh CNP 70 [place] [address] 02/22/2026 11:00 AM EDT Office Visit [facility] [address] [place] [phone] Alonso Bae MD [address] [place] [address] 07/17/2026 2:00 PM EDT Office Visit [facility] - Internal Medicine [address] [place] [phone] Ilya Gusman MD [address] [place] [phone] 07/19/2026 11:40 AM EDT Office Visit [facility] [address] [address] Yesi Perez MD 70 [place] [address] documented as of this encounter Visit Diagnoses Not on filedocumented in this encounter Additional Health Concerns Assessment Noted Time PHQ-9 Depression Total Score: 16 025 11:49 AM EDT documented as of this encounter Care Teams Marketing Assistant Relationship Specialty Start Date End Date Ilya Gusman MD [address] [place] [phone] PCP - General 05/14/17 [facility] 09/01/25 documented as of this encounter
--- OUTSIDE RECORDS SUMMARY | 2025-09-23 20:51 | XMS_ITS | Encounter Summary ---
Author Organization [facility] Address [address] [place] [address] Phone Care Team Providers Care Textile Finisher Name Role Phone Ilya Gusman MD Primary Care Provider [phone] Reason for Visit * Reason Onset Date Comments Med Refill 07/06/2025 Encounter Details Date Type Department Care Team (Late st Contact Info) Description 07/06/2025 Refill [facility] - Internal Medicine [address] [place] [phone] Christophe Daliey MD [address] [place] [phone] Med Refill Social History Tobacco Use [...] Roberta Wang MA documented in this encounter Miscellaneous Notes * Telephone Encounter - Christophe Dailey MD - 07/06/2025 11:43 AM EDT Will hold off on refill until his hospital follow up * Telephone Encounter - Sheron Hoover Rylee - 07/06/2025 11:27 AM EDT Dilaudid 8mg [facility]acy: [facility] DATE OF LAST REFILL? 06/17/25 FREQUENCY OF REFILLS? 28 days DATE REFILL IS DUE? 07/15/25 IS THIS AN EARLY REFILL? No Last Urine Drug Screen date: 08/06/2021 Last Opioid Treatment Agreement date: 09/25/2018 DATE OF LAST OFFICE VISIT: 06/03/25 DATE OF NEXT OFFICE VISIT: Future Appointments Date Time Provider Department Center 07/14/2025 9:40 AM Flaquita Paige NP LNG IM LNG 07/18/2025 10:40 AM Porsha Marsh CNP [facility] SS Card [facility] 07/18/2025 2:00 PM Porsha Marsh CNP [facility] CARDIO SS Card [facility] 08/24/2025 11:00 AM Alonso Bae MD WEY URO WEY 07/17/2026 2:00 PM Ilya Gusman MD LNG IM LNG INSPECTOR PURCHASED PARTS reviewed on 07/06/2025 by Ian SORIA and no red flags were noted Ian Soria/IN Refill Team, Lo[place] documented in this encounter Plan of Treatment Upcoming Encounters Date Type Department Care Team (Late st Contact Info) Description 10/06/2025 10:45 AM EST Office Visit [facility] - Internal Medicine [address] [place] [phone] Ilya Gusman MD [address] [place] [phone] Christophe Dailey MD [address] [place] [phone] 01/18/2026 1:00 PM EST Office Visit [facility] [address] [address] Porsha Marsh CNP [address] [place] [address] 02/22/2026 11:00 AM EDT Office Visit [facility] [address] [place] [address] [address] [place] [phone] Alonso Bae MD 780 [facility] [address] [place] [address] 07/17/2026 2:00 PM EDT Office Visit [facility] - Internal Medicine 143 [place] [phone] Ilya Gusman MD [address] [place] [phone] 07/19/2026 11:40 AM EDT Office Visit [facility] [address] [address] Yesi Perez MD 70 [place] [address] documented as of this encounter Visit Diagnoses Diagnosis Chronic low back pain, unspecified back pain laterality, unspecified whether sciatica present Chronic pain syndrome documented in this encounter Additional Health Concerns Assessment Noted Time PHQ-9 Depression Total Score: 16 025 11:49 AM EDT documented as of this encounter Care Teams Textile Finisher Relationship Specialty Start Date End Date Ilya Gusman MD [address] [place] [phone] PCP - General 05/14/17 [facility] 09/01/25 documented as of this encounter
--- OUTSIDE RECORDS SUMMARY | 2025-09-23 20:51 | XMS_ITS | Encounter Summary ---
[facility] Address [address] [place] [address] Phone Care Team Providers Care Paring Machine Operator Name Role Phone Ilya Gusman MD Primary Care Provider [phone] Encounter Details Date Type Department Care Team (Late st Contact Info) Description 07/08/2025 Telephone [facility] - Internal Medicine [address] [place] [phone] Ilya Gusman MD [address] [place] [phone] Social History Tobacco Use Types Packs/Day [...] encounter Miscellaneous Notes * Telephone Encounter - Lulu Gan PhT - 07/08/2025 4:18 PM EDT Pt calling for status of 2 antibiotics that he thought were prescribed when he went to the ED at [facility]. Pt is going to call and check the pharmacy and see if they were sent there. Ian Rinaldi Refill Specialist documented in this encounter Plan of Treatment Upcoming Encounters Date Type Department Care Team (Late st Contact Info) Description 10/06/2025 10:45 AM EST Office Visit [facility] - Internal Medicine [address] [place] [phone] Ilya Gusman MD [address] [place] [phone] Christophe Dailey MD [address] [place] [phone] 01/18/2026 1:00 PM EST Office Visit [facility] [address] [place] [address] Porsha Marsh CNP [address] [place] [address] 02/22/2026 11:00 AM EDT Office Visit [facility] [address] [place] [address] [address] [place] [phone] Alonso Bae MD [address] [place] [address] [address] [place] [address] 07/17/2026 2:00 PM EDT Office Visit [facility] - Internal Medicine [address] [place] [phone] Ilya Gsuman MD [address] [place] [phone] 07/19/2026 11:40 AM EDT Office Visit [facility] [address] [place] [address] Yesi Perez MD [address] [place] [address] documented as of this encounter Visit Diagnoses Not on filedocumented in this encounter Additional Health Concerns Assessment Noted Time PHQ-9 Depression Total Score: 16 025 11:49 AM EDT documented as of this encounter Care Teams Paring Machine Operator Relationship Specialty Start Date End Date Ilya Gusman MD [address] [place] [phone] PCP - General 05/14/17 [facility] 09/01/25 documented as of this encounter
--- OUTSIDE RECORDS SUMMARY | 2025-09-23 20:51 | XMS_ITS | Encounter Summary ---
[facility] Organization [facility] Address [address] [place] [address] Phone Care Team Providers Care Cost Control Analyst Name Role Phone Ilya Gusman MD Primary Care Provider [phone] Reason for Referral * Consultation (1 Month) - Closed Specialty Diagnoses / Procedures Referred By London blankenship Referred To Contact Neurology Diagnoses Ilya Toussaint MD [address] [place] [phone] Phone: tel: fax: Ann Quinn [address] [place] [address] Phone: tel: fax: Referral ID Status Reason Start Date Expiration Date V isits Requested Visits Authorized [id number] Closed Specialty Services Required 06/16/2017 06/16/2018 6 6 * Consultation (1 Month) - Closed Specialty Diagnoses / Procedures Referred By London blankenship Referred To Contact Diagnoses Ilya Toussaint MD [address] [place] [phone] Phone: tel: fax: UNKNOWN Referral ID Status Reason Start Date Expiration Date V isits Requested Visits Authorized [id number] Closed Specialty Services Required 06/13/2017 06/14/2018 6 6 Encounter Details Date Type Department Care Team (Late st Contact Info) Description 06/13/2017 Orders Only [address] [phone] Ilya Gusman MD [address] [place] [phone] Tremor (Primary Dx) Social History Tobacco Use Types Packs/Day Years Used Date Smoking Tobacco: Never Smokeless Tobacco: Never Sex and Gender Information Value Date Recorded Sex Assigned at Not on file Legal Sex Male 9:28 AM EDT Gender Identity Not on file Sexual Orientation Not on file documented as of this encounter Plan of Treatment Upcoming Encounters Date Type Department Care Team (Late st Contact Info) Description 10/06/2025 10:45 AM EST Office Visit [facility] - Internal Medicine [address] [place] [phone] Ilya Gusman MD [address] [place] [phone] Christophe Dailey MD [address] [place] [phone] 01/18/2026 1:00 PM EST Office Visit [facility] [address] [facility] 1 [place] [address] Porsha Marsh, MARILIA 70 [place] [address] 02/22/2026 11:00 AM EDT Office Visit [facility] [address] [place] [phone] Alonso Bae MD [address] [facility] [address] [place] [address] 07/17/2026 2:00 PM EDT Office Visit [facility] - Internal Medicine [address] [place] [phone] Ilya Gusman MD [address] [place] [phone] 07/19/2026 11:40 AM EDT Office Visit [facility] [address] [address] Yesi Perez MD 70 [place] [address] Scheduled Referrals Name Type Priority Associated Diagnoses Order Schedule Referral Neurology-Outgoing Outpatient Referral Routine Tremor 1 Occurrences starting 06/13/2017 until 12/14/2017 Referral Neurology[facility]Outgoing -[facility] Outpatient Referral Routine Tremor 1 Occurrences starting 06/18/2017 until 12/19/2017 documented as of this encounter Visit Diagnoses Diagnosis Tremor- Primary Abnormal involuntary movements documented in this encounter Additional Health Concerns [...] Rule-Out 11/01/2024 11/02/2024 024 9:43 AM EST documented as of this encounter Care Teams Cost Control Analyst Relationship Specialty Start Date End Date Ilya Gusman MD [address] [place] [phone] PCP - General 05/14/17 [facility] 09/01/25 documented as of this encounter
--- OUTSIDE RECORDS SUMMARY | 2025-09-23 20:51 | XMS_ITS | Encounter Summary ---
Author Organization [facility] Address [address] [place] [address] Phone Care Team Providers Care Medical Lab Technologist Name Role Phone Ilya Gusman MD Primary Care Provider [phone] Reason for Visit * Reason Comments Med Refill Encounter Details Date Type Department Care Team ([facility] Contact Info) Description 09/05/2022 Refill [facility] - Internal Medicine [address] [place] [phone] Christophe Dailey MD [address] [place] [phone] Med Refill Social History Tobacco Use [...] suspected to have Coronavirus/COVID-19? No / Unsure 08/21/2022 9:58 AM EDT documented as of this encounter Miscellaneous Notes * Telephone Encounter - Suly Walker LPN - 09/06/2022 12:35 PM EDT Called pt, left message to call back Suly Walker LPN [facility] * Telephone Encounter - Lilliam Dejesus CNP - 09/05/2022 1:50 PM EDT Covering provider reviewed chart today. Please advise the patient that he is using this inhaler toooften. If he truly needs a refill, he should schedule an office visit to discuss his shortness of breath. Prior to his upcoming appointment with Dr. Gusman in September. Lilliam Dejesus NP-C, [facility] 09/05/2022 * Telephone Encounter - Ifrah Wilhelm PhT - 09/05/2022 11:54 AM EDT Refill Pro Air inhaler Last rx'd 08-07-22 # one w/ no refills Last Ov 07-16-22 Future Appointments Date Time Provider Department Center 09/10/2022 8:45 AM MD [facility] 10/21/2022 11:00 AM MD EDUARDO [facility] IM LNG Ifrah Wilhelm, Print Cutter Refill Team documented in this encounter Plan of Treatment Upcoming Encounters Date Type Department Care Team (Late st Contact Info) Description 10/06/2025 10:45 AM EST Office Visit [facility] - Internal Medicine [address] [place] [phone] Ilya Gusman MD [address] [place] [phone] Christophe Dailey MD [address] [place] [phone] 01/18/2026 1:00 PM EST Office Visit [facility] [address] [place] [address] Porsha Marsh, PROPERTY MAN 70 [place] [address] 02/22/2026 11:00 AM EDT Office Visit [facility] [address] [place] [address] [address] [place] [phone] Alonso Bae MD [address] [place] [address] [address] [place] [address] 07/17/2026 2:00 PM EDT Office Visit [facility] - Internal Medicine [address] [place] [phone] Ilya Gusman MD [address] [place] [phone] 07/19/2026 11:40 AM EDT Office Visit [facility] [address] [place] [address] Yesi Perez MD 70 [place] [address] documented as of this encounter Visit Diagnoses Not on filedocumented in this encounter Additional Health Concerns Infection Onset Date Last Indicated Resolved Time C difficile Rule-Out 10/03/2022 10/03/2022 022 9:20 [...] documented as of this encounter Care Teams Medical Lab Technologist Relationship Specialty Start Date End Date Ilya Gusman MD [address] [place] [phone] PCP - General 05/14/17 [facility] 09/01/25 documented as of this encounter
--- OUTSIDE RECORDS SUMMARY | 2025-09-23 20:51 | XMS_ITS | Encounter Summary ---
Author Organization [facility] ystem Address [address] [place] [address] Phone Care Team Providers Care Slice Cutting Machine Operator Helper Name Role Phone Ilya Gusman MD Primary Care Provider [phone] Encounter Details Date Type Department Care Team (Late st Contact Info) Description 01/06/2023 Scanned Document [facility] - Health Information Department [address] [place], [place] [phone] Scan, No Provider Available [address] [facility] [place] [address] <No scans attached> Social History Tobacco Use [...] [facility] - Internal Medicine [address] [place] [phone] Ilya Gusman MD [address] [place] [phone] Christophe Dailey MD [address] [place] [phone] 01/18/2026 1:00 PM EST Office Visit [facility] [address] [place] [address] Porsha Marsh, MARILIA [address] [place] [place] [address] 02/22/2026 11:00 AM EDT Office Visit [facility] [address] [place] [address] [address] [place] [phone] Alonso Bae MD [address] [place] [address] [address] [place] [address] 07/17/2026 2:00 PM EDT Office Visit [facility] - Internal Medicine [address] [place] [phone] Ilya Gusman MD [address] [place] [phone] 07/19/2026 11:40 AM EDT Office Visit [facility] [address] [place] [address] Yesi Perez MD [address] [place] [address] documented as of this encounter Visit Diagnoses [...] documented as of this encounter Care Teams Slice Cutting Machine Operator Helper Relationship Specialty Start Date End Date Ilya Gusman MD [address] [place] [phone] PCP - General 05/14/17 [facility] 09/01/25 documented as of this encounter
--- OUTSIDE RECORDS SUMMARY | 2025-09-23 20:51 | XMS_ITS | Encounter Summary ---
Author Organization [facility] ystem Address [address] [place] [address] Phone Care Team Providers Care Local Operator Name Role Phone Ilya Gusman MD Primary Care Provider [phone] Encounter Details Date Type Department Care Team (Late st Contact Info) Description 07/22/2025 Scanned Document [facility] - Health Information Department [address] [place], [place] [id number] Scan, No Provider Available [address] [facility] [place] [address] <No scans attached> Social History Tobacco Use [...] Description 10/06/2025 10:45 AM EST Office Visit [facility] - Internal Medicine [address] [place] [phone] Ilya Gusman MD [address] [place] [phone] Christophe Dailey MD [address] [place] [phone] 01/18/2026 1:00 PM EST Office Visit [facility] [address] [address] Porsha Marsh CNP 70 [place] [address] 02/22/2026 11:00 AM EDT Office Visit [facility] [address] [place] [phone] Alonso Bae MD [address] [place] [address] 07/17/2026 2:00 PM EDT Office Visit [facility] - Internal Medicine [address] [place] [phone] Ilya Gusman MD [address] [place] [phone] 07/19/2026 11:40 AM EDT Office Visit [facility] [address] [address] Yesi Perez MD 70 [place] [address] documented as of this encounter Visit Diagnoses Not on filedocumented in this encounter Additional Health Concerns Assessment Noted Time PHQ-9 Depression Total Score: 16 025 11:49 AM EDT documented as of this encounter Care Teams Local Operator Relationship Specialty Start Date End Date Ilya Gusman MD [address] [place] [phone] PCP - General 05/14/17 [facility] 09/01/25 documented as of this encounter
--- OUTSIDE RECORDS SUMMARY | 2025-09-23 20:51 | XMS_ITS | Encounter Summary ---
Author Organization [facility] ystem Address [address] [place] [address] Phone Care Team Providers Care Health Care Aide Name Role Phone Ilya Gusman MD Primary Care Provider [phone] Encounter Details Date Type Department Care Team (Late st Contact Info) Description 03/07/2023 Orders Only [facility] - Health Information Department [address] [facility] [place] [address] Scan, No Provider Available [address] [facility] [place] [address] Social History Tobacco Use Types Packs/Day Years [...] suspected to have Coronavirus/COVID-19? No / Unsure 02/19/2023 12:58 PM EDT documented as of this encounter Plan of Treatment Upcoming Encounters Date Type Department Care Team (Late st Contact Info) Description 10/06/2025 10:45 AM EST Office Visit [facility] - Internal Medicine [address] [place] [phone] Ilya Gusman MD [address] [place] [phone] Christophe Dailey MD [address] [place] [phone] 01/18/2026 1:00 PM EST Office Visit [facility] [address] [place] [address] Porsha Marsh, DOCK GUARD [address] [place] [address] 02/22/2026 11:00 AM EDT Office Visit [facility] [address] [place] [address] [address] [place] [phone] Alonso Bae MD [address] [place] [address] [address] [place] [address] 07/17/2026 2:00 PM EDT Office Visit [facility] - Internal Medicine [address] [place] [phone] Ilya Gusman MD [address] [place] [phone] 07/19/2026 11:40 AM EDT Office Visit [facility] [address] [place] [address] Yesi Perez MD [address] [place] [phone] documented as of this encounter Procedures Procedure Name Priority Date/Time Associated Diagnosis Comments COVID-19 (EXTERNAL) Routine 02/25/2023 documented in this encounter Results * COVID-19 (External) (02/25/2023) External COVID-19 Negative Not Detected, Negative, Non-reacti ve Nasopharyngeal (Nasopharynx) us Historical Provider LAB MICROBIOLOGY - GENERA L ORDERABLES Final Result documented in this encounter Visit [...] documented as of this encounter Care Teams Health Care Aide Relationship Specialty Start Date End Date Ilya Gusman MD [address] [place] [phone] PCP - General 05/14/17 [facility] 09/01/25 documented as of this encounter
--- OUTSIDE RECORDS SUMMARY | 2025-09-23 20:51 | XMS_ITS | Encounter Summary ---
Author Organization [facility] ystem Address [address] [place] [address] Phone Care Team Providers Care Internet Site Designer Name Role Phone Ilya Gusman MD Primary Care Provider [phone] Encounter Details Date Type Department Care Team (Late st Contact Info) Description 02/26/2023 Scanned Document [facility] - Health Information Department 143 [place], [place] [phone] Scan, No Provider Available [address] [facility] [place] [address] <No scans attached> Social History Tobacco Use [...] 10/06/2025 10:45 AM EST Office Visit [facility] - Internal Medicine [address] [place] [phone] Ilya Gusman MD [address] [place] [phone] Christophe Dailey MD [address] [place] [phone] 01/18/2026 1:00 PM EST Office Visit [facility] [address] [place] [address] Porsha Marsh, MARILIA [address] [place] [address] 02/22/2026 11:00 AM EDT Office Visit [facility] [address] [place] [address] [address] [place] [phone] Alonso Bae MD [address] [place] [address] [address] [place] [address] 07/17/2026 2:00 PM EDT Office Visit [facility] - Internal Medicine [address] [place] [phone] Ilya Gusman MD [address] [place] [phone] 07/19/2026 11:40 AM EDT Office Visit [facility] [address] [place] [address] Yesi Perez MD [address] [place] [address] documented as of this encounter Visit Diagnoses [...] documented as of this encounter Care Teams Internet Site Designer Relationship Specialty Start Date End Date Ilya Gusman MD [address] [place] [phone] PCP - General 05/14/17 [facility] 09/01/25 documented as of this encounter
--- OUTSIDE RECORDS SUMMARY | 2025-09-23 20:51 | XMS_ITS | Encounter Summary ---
Author Organization [facility] ystem Address [address] [place] [address] Phone Care Team Providers Care Adjunct Philosophy Faculty Name Role Phone Ilya Gusman MD Primary Care Provider [phone] Encounter Details Date Type Department Care Team (Late st Contact Info) Description 08/26/2022 Orders Only [facility] - Health Information Department 143 [facility] [place] [address] Scan, No Provider Available [address] [facility] [place] [address] Social History Tobacco Use Types Packs/Day Years [...] Description 10/06/2025 10:45 AM EST Office Visit [facility] - Internal Medicine [address] [place] [phone] Ilya Gusman MD [address] [place] [phone] Christophe Dailey MD [address] [place] [phone] 01/18/2026 1:00 PM EST Office Visit [facility] [address] [place] [address] Porsha Marsh, PROFESSOR OF EARLY CHILDHOOD EDUCATION [address] [place] [address] 02/22/2026 11:00 AM EDT Office Visit [facility] [address] [place] [address] [address] [place] [phone] Alonso Bae MD [address] [place] [address] [address] [place] [address] 07/17/2026 2:00 PM EDT Office Visit [facility] - Internal Medicine [address] [place] [phone] Ilya Gusman MD [address] [place] [phone] 07/19/2026 11:40 AM EDT Office Visit [facility] [address] [place] [address] Yesi Perez MD [address] [place] [address] documented as of this encounter Procedures Procedure Name Priority Date/Time Associated Diagnosis Comments MR INO LABS Routine 03/21/2022 documented in this encounter Results * MR Ino briseno (03/21/2022) us No Provider Available Scan LAB BLOOD ORDERABLES Final Result documented in this encounter [...] documented as of this encounter Care Teams Adjunct Philosophy Faculty Relationship Specialty Start Date End Date Ilya Gusman MD [address] [place] [phone] PCP - General 05/14/17 [facility] 09/01/25 documented as of this encounter
--- OUTSIDE RECORDS SUMMARY | 2025-09-23 20:51 | XMS_ITS | Encounter Summary ---
Author Organization [facility] ystem Address [address] [place] [address] Phone Care Team Providers Care Motion Picture Narrator Name Role Phone Ilya Gusman MD Primary Care Provider [phone] Encounter Details Date Type Department Care Team (Late st Contact Info) Description 12/13/2022 Orders Only [facility] - Health Information Department 143 [place] [address] Scan, No Provider Available [address] [facility] [place] [address] Social History Tobacco Use Types Packs/Day Years [...] suspected to have Coronavirus/COVID-19? No / Unsure 11/14/2022 10:04 AM EST documented as of this encounter Plan of Treatment Upcoming Encounters Date Type Department Care Team (Late st Contact Info) Description 10/06/2025 10:45 AM EST Office Visit [facility] - Internal Medicine [address] [place] [phone] Ilya Gusman MD [address] [place] [phone] Christophe Dailey MD [address] [place] [phone] 01/18/2026 1:00 PM EST Office Visit [facility] [address] [place] [address] Porsha Marsh, ELECTRICAL APPLIANCE MECHANIC [address] [place] [address] 02/22/2026 11:00 AM EDT Office Visit [facility] [address] [place] [address] [address] [place] [phone] Alonso Bae MD [address] [place] [address] [address] [place] [address] 07/17/2026 2:00 PM EDT Office Visit [facility] - Internal Medicine [address] [place] [phone] Ilya Gusman MD [address] [place] [phone] 07/19/2026 11:40 AM EDT Office Visit [facility] [address] [place] [address] Yesi Perez MD [address] [place] [address] documented as of this encounter Procedures Procedure Name Priority Date/Time Associated Diagnosis Comments ECG 12-LEAD Today 12/02/2022 documented in this encounter Results * ECG (12/02/2022) us No Provider Available Scan ECG ORDERABLES Final Result documented in this encounter [...] documented as of this encounter Care Teams Motion Picture Narrator Relationship Specialty Start Date End Date Ilya Gusman MD [address] [place] [phone] PCP - General 05/14/17 [facility] 09/01/25 documented as of this encounter
--- OUTSIDE RECORDS SUMMARY | 2025-09-23 20:51 | XMS_ITS | Encounter Summary ---
Author Organization [facility] Address [address] [place] [address] Phone Care Team Providers Care Missile Tracking Technician Name Role Phone Ilya Gusman MD Primary Care Provider [phone] Encounter Details Date Type Department Care Team (Late Contact Info) Description 08/08/2025 Procedure Pass [facility] 2 [place] [phone] Social History Tobacco Use Types Packs/Day Years [...] 10/06/2025 10:45 AM EST Office Visit [facility] - Internal Medicine [address] [place] [phone] Ilya Gusman MD [address] [place] [phone] Christophe Dailey MD [address] [place] [phone] 01/18/2026 1:00 PM EST Office Visit [facility] 70 [facility] 1 [place] [address] Porsha Marsh CNP 70 [place] [address] 02/22/2026 11:00 AM EDT Office Visit [facility] [address] [place] [address] Alonso Bae MD [address] [place] [address] 07/17/2026 2:00 PM EDT Office Visit [facility] - Internal Medicine [address] [place] [phone] Ilya Gusman MD [address] [place] [phone] 07/19/2026 11:40 AM EDT Office Visit [facility] [address] [facility] 1 [place] [address] Yesi Perez MD 70 [place] [address] documented as of this encounter Visit Diagnoses Not on filedocumented in this encounter Additional Health Concerns Assessment Noted Time PHQ-9 Depression Total Score: 16 025 11:49 AM EDT documented as of this encounter Care Teams Missile Tracking Technician Relationship Specialty Start Date End Date Ilya Gusman MD [address] [place] [phone] PCP - General 05/14/17 [facility] 09/01/25 documented as of this encounter
--- OUTSIDE RECORDS SUMMARY | 2025-09-23 20:51 | XMS_ITS | Encounter Summary ---
Author Organization [facility] ystem Address [address] [place] [address] Phone Care Team Providers Care Emissions Testing Technician Name Role Phone Ilya Gusman MD Primary Care Provider [phone] Encounter Details Date Type Department Care Team (Late st Contact Info) Description 02/25/2023 Scanned Document [facility] - Health Information Department 143 [place], [place] [phone] Scan, No Provider Available [address] [facility] [place] [address] <No scans attached> Social History Tobacco Use [...] Visit [facility] - Internal Medicine [address] [place] [phone] Ilya Gusman MD [address] [place] [phone] Christophe Dailey MD [address] [place] [phone] 01/18/2026 1:00 PM EST Office Visit [facility] [address] [place] [address] Porsha Marsh, MARILIA [address] [place] [address] 02/22/2026 11:00 AM EDT Office Visit [facility] [address] [place] [address] [address] [place] [phone] Alonso Bae MD [address] [place] [address] [address] [place] [address] 07/17/2026 2:00 PM EDT Office Visit [facility] - Internal Medicine [address] [place] [phone] Ilya Gusmna MD [address] [place] [phone] 07/19/2026 11:40 AM EDT Office Visit [facility] [address] [place] [address] Yesi Perez MD [address] [place] [address] documented as of this encounter Visit Diagnoses [...] documented as of this encounter Care Teams Emissions Testing Technician Relationship Specialty Start Date End Date Ilya Gusman MD [address] [place] [phone] PCP - General 05/14/17 [facility] 09/01/25 documented as of this encounter
--- OUTSIDE RECORDS SUMMARY | 2025-09-23 20:51 | XMS_ITS | Encounter Summary ---
Author Organization [facility] ystem Address [address] [place] [address] Phone Care Team Providers Care Contact Lens Polisher Name Role Phone Ilya Gusman MD Primary Care Provider [phone] Encounter Details Date Type Department Care Team (Late st Contact Info) Description 01/30/2023 Scanned Document [facility] - Health Information Department 143 [place], [place] [phone] Scan, No Provider Available [address] [facility] [place] [address] <No scans attached> Social History Tobacco Use [...] suspected to have Coronavirus/COVID-19? No / Unsure 01/21/2023 10:48 AM EST documented as of this encounter Plan of Treatment Upcoming Encounters Date Type Department Care Team (Late st Contact Info) Description 10/06/2025 10:45 AM EST Office Visit [facility] - Internal Medicine [address] [place] [phone] Ilya Gusman MD [address] [place] [phone] Christophe Dailey MD [address] [place] [address] [phone] 01/18/2026 1:00 PM EST Office Visit [facility] [address] [place] [address] Porsha Marsh, MARILIA [address] [place] [address] 02/22/2026 11:00 AM EDT Office Visit [facility] [address] [place] [address] [address] [place] [phone] Alonso Bae MD [address] [place] [address] [address] [place] [address] 07/17/2026 2:00 PM EDT Office Visit [facility] - Internal Medicine [address] [place] [phone] Ilya Gusman MD [address] [place] [phone] 07/19/2026 11:40 AM EDT Office Visit [facility] [address] [place] [address] Yesi Perez MD [address] [place] [address] documented as of this encounter Visit Diagnoses [...] documented as of this encounter Care Teams Contact Lens Polisher Relationship Specialty Start Date End Date Ilya Gusman MD [address] [place] [phone] PCP - General 05/14/17 [facility] 09/01/25 documented as of this encounter
--- OUTSIDE RECORDS SUMMARY | 2025-09-23 20:51 | XMS_ITS | Encounter Summary ---
Author Organization [facility] ystem Address [address] [place] [address] Phone Care Team Providers Care Residential Sales Representative Name Role Phone Ilya Gusman MD Primary Care Provider [phone] Encounter Details Date Type Department Care Team (Late st Contact Info) Description 10/25/2022 Scanned Document [facility] - Health Information Department 143 [place], [place] [phone] Scan, No Provider Available [address] [facility] [place] [address] <No scans attached> Social History Tobacco Use [...] suspected to have Coronavirus/COVID-19? No / Unsure 10/15/2022 10:04 AM EST documented as of this encounter Plan of Treatment Upcoming Encounters Date Type Department Care Team (Late st Contact Info) Description 10/06/2025 10:45 AM EST Office Visit [facility] - Internal Medicine [address] [place] [phone] Ilya Gusman MD [address] [place] [phone] Christophe Dailey MD [address] [place] [phone] 01/18/2026 1:00 PM EST Office Visit [facility] [address] [place] [address] Porsha Marsh, MARILIA [address] [place] [address] 02/22/2026 11:00 AM EDT Office Visit [facility] [address] [place] [address] [address] [place] [phone] Alonso Bae MD [address] [place] [address] [address] [place] [address] 07/17/2026 2:00 PM EDT Office Visit [facility] - Internal Medicine [address] [place] [phone] Ilya Gusman MD [address] [place] [phone] 07/19/2026 11:40 AM EDT Office Visit [facility] [address] [place] [address] Yesi Perez MD [address] [place] [address] documented as of this encounter Visit Diagnoses Not on filedocumented in this encounter Additional Health Concerns Infection Onset Date Last Indicated Resolved Time Covid Possible 10/30/2022 10/30/2022 10/30/2022 4: 10 [...] documented as of this encounter Care Teams Residential Sales Representative Relationship Specialty Start Date End Date Ilya Gusman MD [address] [place] [phone] PCP - General 05/14/17 [facility] 09/01/25 documented as of this encounter
--- OUTSIDE RECORDS SUMMARY | 2025-09-23 20:51 | XMS_ITS | Encounter Summary ---
Author Organization [facility] ystem Address [address] [place] [address] Phone Care Team Providers Care Emerging Solutions Executive Name Role Phone Ilya Gusman MD Primary Care Provider [phone] Encounter Details Date Type Department Care Team (Late st Contact Info) Description 03/06/2023 Orders Only [facility] - Health Information Department 143 [facility] [place] [address] Scan, No Provider Available [address] [facility] [place] [address] Social History Tobacco Use Types Packs/Day Years [...] Description 10/06/2025 10:45 AM EST Office Visit [facility] - Internal Medicine [address] [place] [phone] Ilya Gusman MD [address] [place] [phone] Christophe Dailey MD [address] [place] [phone] 01/18/2026 1:00 PM EST Office Visit [facility] [address] [place] [address] Porsha Marsh, RURAL HEALTH CONSULTANT [address] [place] [address] 02/22/2026 11:00 AM EDT Office Visit [facility] [address] [place] [address] [address] [place] [phone] Alonso Bae MD [address] [place] [address] [address] [place] [address] 07/17/2026 2:00 PM EDT Office Visit [facility] - Internal Medicine [address] [place] [phone] Ilya Gusman MD [address] [place] [phone] 07/19/2026 11:40 AM EDT Office Visit [facility] [address] [place] [address] Yesi Perez MD [address] [place] [address] documented as of this encounter Procedures Procedure Name Priority Date/Time Associated Diagnosis Comments MR INO LABS Routine 02/25/2023 CT ABDOMEN PELVIS W CONTRAST Routine 02/25/2023 XR CHEST 2 VW Routine 02/25/2023 ECG 12-LEAD Today 02/25/2023 documented in this encounter Results * MR Ino briseno (02/25/2023) us No Provider Available Scan LAB BLOOD ORDERABLES Final Result * CT abdomen pelvis with contrast per algorithm (02/25/2023) Anatomical Region Laterality Modality Body Computed Tomogra phy us No Provider Available Scan IMG CT PROCEDURES Fin al Result * X-ray chest 2 views (02/25/2023) Anatomical Region Laterality Modality Body Radiographic Carmelina ging us No Provider Available Scan IMG XR PROCEDURES Fin al Result * ECG (02/25/2023) us No Provider Available Scan ECG ORDERABLES [...] documented as of this encounter Care Teams Emerging Solutions Executive Relationship Specialty Start Date End Date Ilya Gusman MD [address] [place] [phone] PCP - General 05/14/17 [facility] 09/01/25 documented as of this encounter
--- OUTSIDE RECORDS SUMMARY | 2025-09-23 20:51 | XMS_ITS | Encounter Summary ---
Author Organization [facility] Address [address] [place] [address] Phone Care Team Providers Care Technician Assistant Name Role Phone Ilya Gusman MD Primary Care Provider [phone] Encounter Details Date Type Department Care Team (Late st Contact Info) Description 07/01/2025 Telephone [facility] - Internal Medicine [address] [place] [phone] Ilya Gusman MD [address] [place] [phone] Social History Tobacco Use Types Packs/Day [...] encounter Miscellaneous Notes * Telephone Encounter - Kristina Schneider, T - 07/01/2025 4:19 PM EDT [facility] for [facility] Pt. Pt is new to [facility] and wants to make sure he has a current list. Pharm is also going to get a med list from [facility] Which is where Pt has been getting his med. [address] [address] Kristina Schneider Refill Specialist documented in this encounter Plan of Treatment Upcoming Encounters Date Type Department Care Team (Late st Contact Info) Description 10/06/2025 10:45 AM EST Office Visit [facility] - Internal Medicine [address] [place] [phone] Ilya Gusman MD [address] [place] [phone] Christophe Dailey MD [address] [place] [phone] 01/18/2026 1:00 PM EST Office Visit [facility] [address] [place] [address] Porsha Marsh, [address] [address] 02/22/2026 11:00 AM EDT Office Visit [facility] [address] [place] [address] [address] [place] [phone] Alonso Bae MD [address] [place] [address] [address] [place] [address] 07/17/2026 2:00 PM EDT Office Visit [facility] - Internal Medicine [address] [place] [phone] Ilya Gusman MD [address] [place] [phone] 07/19/2026 11:40 AM EDT Office Visit [facility] [address] [place] [address] Yesi Perez MD [address] [place] [address] documented as of this encounter Visit Diagnoses Not on filedocumented in this encounter Additional Health Concerns Assessment Noted Time PHQ-9 Depression Total Score: 16 025 11:49 AM EDT documented as of this encounter Care Teams Technician Assistant Relationship Specialty Start Date End Date Ilya Gusman MD [address] [place] [phone] PCP - General 05/14/17 [facility] 09/01/25 documented as of this encounter
--- OUTSIDE RECORDS SUMMARY | 2025-09-23 20:51 | XMS_ITS | Encounter Summary ---
Author Organization [facility] Address [address] [place] [address] Phone Care Team Providers Care Therapeutic Specialist Name Role Phone Ilya Gusman MD Primary Care Provider [phone] Encounter Details Date Type Department Care Team (Late Contact Info) Description 06/12/2017 Orders Only [facility] - Health Information Department [address] [place] [address] Ilya Gusman MD [address] [place] [phone] Social History Tobacco Use Types Packs/Day Years [...] 10:45 AM EST Office Visit [facility] - Internal Medicine [address] [place] [phone] Ilya Gusman MD [address] [place] [phone] Christophe Dailey MD [address] [place] [phone] 01/18/2026 1:00 PM EST Office Visit [facility] [address] [place] [address] Porsha Marsh, SHIP ENGINEER [address] [place] [address] 02/22/2026 11:00 AM EDT Office Visit [facility] [address] [place] [address] [address] [place] [phone] Alonso Bae MD [address] [place] [address] [address] [place] [address] 07/17/2026 2:00 PM EDT Office Visit [facility] - Internal Medicine [address] [place] [phone] Ilya Gusman MD [address] [place] [phone] 07/19/2026 11:40 AM EDT Office Visit [address] [address] Yesi Perez MD [address] [place] [address] documented as of this encounter Procedures Procedure Name Priority Date/Time Associated Diagnosis Comments [facility] Routine 06/11/2017 documented in this encounter Results * MR [facility] cardiology (06/11/2017) us Ilya Gusman MD CV STRESS PROCEDURES Final Resu lt documented in this encounter Visit Diagnoses Not [...] documented as of this encounter Care Teams Therapeutic Specialist Relationship Specialty Start Date End Date Ilya Gusman MD [address] [place] [phone] PCP - General 05/14/17 [facility] 09/01/25 documented as of this encounter
--- OUTSIDE RECORDS SUMMARY | 2025-09-23 20:51 | XMS_ITS | Encounter Summary ---
Author Organization [facility] Address [address] [place] [address] Phone Care Team Providers Care Automatic Beading Lathe Operator Name Role Phone Ilya Gusman MD Primary Care Provider [phone] Encounter Details Date Type Department Care Team (Late Contact Info) Description 06/16/2017 Scanned Document [facility] [place] [phone] Alejandro Lion MD [facility] at [address] [place] [address] <No scans attached> Social History Tobacco Use [...] Description 10/06/2025 10:45 AM EST Office Visit [facility] - Internal Medicine [address] [place] [phone] Ilya Gusman MD [address] [place] [phone] Christophe Dailey MD [address] [place] [phone] 01/18/2026 1:00 PM EST Office Visit [facility] [address] [place] [address] Porsha Marsh, TUG HAND [address] [place] [address] 02/22/2026 11:00 AM EDT Office Visit [facility] [address] [place] [address] [place] [phone] Alonso Bae MD [address] [place] [address] 07/17/2026 2:00 PM EDT Office Visit [facility] - Internal Medicine [address] [place] [phone] Ilya Gusman MD [address] [place] [phone] 07/19/2026 11:40 AM EDT Office Visit [facility] [address] [place] [address] Yesi Perez MD [address] [place] [address] documented as of this encounter Visit Diagnoses [...] documented as of this encounter Care Teams Automatic Beading Lathe Operator Relationship Specialty Start Date End Date Ilya Gusman MD [address] [place] [phone] PCP - General 05/14/17 [facility] 09/01/25 documented as of this encounter
--- OUTSIDE RECORDS SUMMARY | 2025-09-23 20:51 | XMS_ITS | Encounter Summary ---
Author Organization [facility] Address [address] [place] [address] Phone Care Team Providers Care Change Agent Name Role Phone Ilya Gusman MD Primary Care Provider [phone] Reason for Visit * Reason Onset Date Comments Med Refill 08/07/2022 Encounter Details Date Type Department Care Team (Late Contact Info) Description 08/07/2022 Refill [facility] - Internal Medicine [address] [place] [phone] Mychart, Generic Provider [address] [place], [place] [phone] Med Refill Social History Tobacco Use Types [...] suspected to have Coronavirus/COVID-19? No / Unsure 08/06/2022 3:18 PM EDT documented as of this encounter Plan of Treatment Upcoming Encounters Date Type Department Care Team (Late st Contact Info) Description 10/06/2025 10:45 AM EST Office Visit [facility] - Internal Medicine [address] [place] [phone] Ilya Gusman MD [address] [place] [phone] Christophe Dailey MD [address] [place] [address] [phone] 01/18/2026 1:00 PM EST Office Visit [facility] [address] [place] [address] Porsha Marsh CNP [address] [place] [address] 02/22/2026 11:00 AM EDT Office Visit [facility] [address] [place] [address] [address] [place] [phone] Alonso Bae MD [address] [place] [address] [address] [place] [address] 07/17/2026 2:00 PM EDT Office Visit [facility] - Internal Medicine [address] [place] [phone] Ilya Gusman MD [address] [place] [phone] 07/19/2026 11:40 AM EDT Office Visit [facility] [address] [place] [address] Yesi Perez MD [address] [place] [address] documented as of this encounter Visit Diagnoses Diagnosis PND (paroxysmal nocturnal dyspnea) Other dyspnea and respiratory abnormality documented in this encounter Additional Health Concerns [...] documented as of this encounter Care Teams Change Agent Relationship Specialty Start Date End Date Ilya Gusman MD [address] [place] [phone] PCP - General 05/14/17 [facility] 09/01/25 documented as of this encounter
--- OUTSIDE RECORDS SUMMARY | 2025-09-23 20:51 | XMS_ITS | Encounter Summary ---
Author Organization [facility] Address [address] [place] [address] Phone Care Team Providers Care Golf Course Architect Name Role Phone Ilya Gusman MD Primary Care Provider [phone] Encounter Details Date Type Department Care Team (Late st Contact Info) Description 03/04/2023 Orders Only [facility] - Health Information Department [address] [place] [address] Scan, No Provider Available [address] [facility] [place] [address] Social History Tobacco Use Types Packs/Day Years [...] [facility] - Internal Medicine [address] [place] [phone] Ilya Gusman MD [address] [place] [phone] Christophe Dailey MD [address] [place] [phone] 01/18/2026 1:00 PM EST Office Visit [facility] [address] [place] [address] Porsha Marsh, BROOM BUILDER [address] [place] [address] 02/22/2026 11:00 AM EDT Office Visit [facility] [address] [place] [address] [address] [place] [phone] Alonso Bae MD [address] [place] [address] [address] [place] [address] 07/17/2026 2:00 PM EDT Office Visit [facility] - Internal Medicine [address] [place] [phone] Ilya Gusman MD [address] [place] [phone] 07/19/2026 11:40 AM EDT Office Visit [facility] [address] [place] [address] Yesi Perez MD [address] [place] [address] documented as of this encounter Procedures Procedure Name Priority Date/Time Associated Diagnosis Comments ECG 12-LEAD Today 01/07/2023 ECG 12-LEAD Today 01/06/2023 documented in this encounter Results * ECG (01/07/2023) us No Provider Available Scan ECG ORDERABLES Final Result * ECG (01/06/2023) us No Provider Available Scan ECG ORDERABLES [...] documented as of this encounter Care Teams Golf Course Architect Relationship Specialty Start Date End Date Ilya Gusman MD [address] [place] [phone] PCP - General 05/14/17 [facility] 09/01/25 documented as of this encounter
--- OUTSIDE RECORDS SUMMARY | 2025-09-23 20:51 | XMS_ITS | Encounter Summary ---
Author Organization [facility] Address [address] [place] [address] Phone Care Team Providers Care Compressor Station Engineer Name Role Phone Ilya Gusman MD Primary Care Provider [phone] Reason for Visit * Reason Onset Date Comments Med Refill 11/28/2022 Encounter Details Date Type Department Care Team (Late Contact Info) Description 11/28/2022 Refill [facility] - Internal Medicine [address] [place] [phone] Ilya Gusman MD [address] [place] [phone] Med Refill Social History Tobacco Use [...] AM EST documented as of this encounter Miscellaneous Notes * Telephone Encounter - Renuka Gallegos [place] - 11/28/2022 3:50 PM EST flonase listed hx Loratadine listed hx Albuterol last rx 10/21/22 qty 1 Dilaudid 4mg last qty 168 2 scripts Pharmacy: [facility] DATE OF LAST REFILL? 11/15/22 FREQUENCY OF REFILLS? 14 days DATE REFILL IS DUE? 11/29/2022 IS THIS AN EARLY REFILL? No Last Urine Drug Screen date: 08/06/2021 Last Opioid Treatment Agreement date: 09/25/2018 DATE OF LAST OFFICE VISIT: 10/21/22 DATE OF NEXT OFFICE VISIT: Future Appointments Date Time Provider Department Center 12/19/2022 9:00 AM Alonso Bae MD [facility] [employer] SALVAGE INSPECTOR reviewed on 11/28/2022 by RENUKA GALLEGOS MA and reviewed & no red flags were noted documented in this encounter Plan of Treatment Upcoming Encounters Date Type Department Care Team (Late st Contact Info) Description 10/06/2025 10:45 AM EST Office Visit [facility] - Internal Medicine [address] [place] [phone] Ilya Gusman MD [address] [place] [phone] Christophe Dailey MD [address] [place] [phone] 01/18/2026 1:00 PM EST Office Visit [facility] [address] [address] Porsha Marsh, MACHINE MILKER 70 [place] [address] 02/22/2026 11:00 AM EDT Office Visit [facility] [address] [facility] [address] [place] [phone] Alonso Bae MD [address] [facility] [address] [place] [address] 07/17/2026 2:00 PM EDT Office Visit [facility] - Internal Medicine [address] [place] [phone] Ilya Gusman MD [address] [place] [phone] 07/19/2026 11:40 AM EDT Office Visit [facility] [address] [facility] 1 [place] [address] Yesi Perez MD 70 [place] [address] documented as of this encounter Visit Diagnoses [...] documented as of this encounter Care Teams Compressor Station Engineer Relationship Specialty Start Date End Date Ilya Gusman MD [address] [place] [phone] PCP - General 05/14/17 [facility] 09/01/25 documented as of this encounter
--- OUTSIDE RECORDS SUMMARY | 2025-09-23 20:51 | XMS_ITS | Encounter Summary ---
Author Organization [facility] Address [address] [place] [address] Phone Care Team Providers Care Pipelayer Name Role Phone Ilya Gusman MD Primary Care Provider [phone] Encounter Details Date Type Department Care Team (Late st Contact Info) Description 11/09/2022 Scanned Document [facility] - Health Information Department [address] [place], [place] [phone] Scan, No Provider Available [address] [facility] [place] [address] <No scans attached> Social History Tobacco Use [...] suspected to have Coronavirus/COVID-19? No / Unsure 10/30/2022 12:11 PM EST documented as of this encounter Plan of Treatment Upcoming Encounters Date Type Department Care Team (Late st Contact Info) Description 10/06/2025 10:45 AM EST Office Visit [facility] - Internal Medicine [address] [place] [phone] Ilya Gusman MD [address] [place] [phone] Christophe Dailey MD [address] [place] [phone] 01/18/2026 1:00 PM EST Office Visit [facility] [address] [place] [address] Porsha Marsh, MARILIA [address] [place] [address] 02/22/2026 11:00 AM EDT Office Visit [facility] [address] [place] [address] [address] [place] [phone] Alonso Bae MD [address] [place] [address] [address] [place] [address] 07/17/2026 2:00 PM EDT Office Visit [facility] - Internal Medicine [address] [place] [phone] Ilya Gusman MD [address] [place] [phone] 07/19/2026 11:40 AM EDT Office Visit [facility] [address] [place] [address] Yesi Perez MD [address] [place] [address] documented as of this encounter Visit Diagnoses [...] documented as of this encounter Care Teams Pipelayer Relationship Specialty Start Date End Date Ilya Gusman MD [address] [place] [phone] PCP - General 05/14/17 [facility] 09/01/25 documented as of this encounter
--- OUTSIDE RECORDS SUMMARY | 2025-09-23 20:51 | XMS_ITS | Encounter Summary ---
Author Organization [facility] Address [address] [place] [address] Phone Care Team Providers Care Knitting Teacher Name Role Phone Ilya Gusman MD Primary Care Provider [phone] Encounter Details Date Type Department Care Team (Late st Contact Info) Description 11/30/2022 Scanned Document [facility] - Health Information Department [address] [place], [place] [phone] Scan, No Provider Available [address] [facility] [place] [address] <No scans attached> Social History Tobacco Use [...] 10/06/2025 10:45 AM EST Office Visit [facility] - Internal Medicine [address] [place] [phone] Ilya Gusman MD [address] [place] [phone] Christophe Dailey MD [address] [place] [phone] 01/18/2026 1:00 PM EST Office Visit [facility] [address] [place] [address] Porsha Marhs, MARILIA [address] [place] [address] 02/22/2026 11:00 AM EDT Office Visit [facility] [address] [place] [address] [address] [place] [phone] Alonso Bae MD [address] [place] [address] [address] [place] [address] 07/17/2026 2:00 PM EDT Office Visit [facility] - Internal Medicine [address] [place] [phone] Ilya Gusman MD [address] [place] [phone] 07/19/2026 11:40 AM EDT Office Visit [facility] [address] [place] [address] Yesi Perez MD [address] [place] [address] documented as of this encounter Visit Diagnoses [...] documented as of this encounter Care Teams Knitting Teacher Relationship Specialty Start Date End Date Ilya Gusman MD [address] [place] [phone] PCP - General 05/14/17 [facility] 09/01/25 documented as of this encounter
--- OUTSIDE RECORDS SUMMARY | 2025-09-23 20:51 | XMS_ITS | Encounter Summary ---
Author Organization [facility] Address [address] [place] [address] Phone Care Team Providers Care Bobbin Loose End Finder Name Role Phone Ilya Gusman MD Primary Care Provider [phone] Encounter Details Date Type Department Care Team (Late st Contact Info) Description 06/23/2025 Scanned Document [facility] - Health Information Department [address] [place], [place] [phone] Scan, No Provider Available [address] [facility] [place] [address] <No scans attached> Social History Tobacco Use [...] Description 10/06/2025 10:45 AM EST Office Visit [facility] - Internal Medicine [address] [place] [phone] Ilya Gusman MD [address] [place] [phone] Christophe Dailey MD [address] [place] [phone] 01/18/2026 1:00 PM EST Office Visit [facility] [address] [address] Porsha Marsh CNP 70 [place] [address] 02/22/2026 11:00 AM EDT Office Visit [facility] [address] [place] [phone] Alonso Bae MD [address] [place] [address] 07/17/2026 2:00 PM EDT Office Visit [facility] - Internal Medicine [address] [place] [phone] Ilya Gusman MD [address] [place] [phone] 07/19/2026 11:40 AM EDT Office Visit [facility] [address] [address] Yesi Perez MD 70 [place] [address] documented as of this encounter Visit Diagnoses Not on filedocumented in this encounter Additional Health Concerns Assessment Noted Time PHQ-9 Depression Total Score: 16 025 11:49 AM EDT documented as of this encounter Care Teams Bobbin Loose End Finder Relationship Specialty Start Date End Date Ilya Gusman MD [address] [place] [phone] PCP - General 05/14/17 [facility] 09/01/25 documented as of this encounter
--- OUTSIDE RECORDS SUMMARY | 2025-09-23 20:51 | XMS_ITS | Clinical Summary ---
Author Organization [facility] Address [address] [place] [address] Care Team Providers Care Chest Painting Leader Name Role Phone Tc Story MD Unavailable [phone] Ilya Gusman MD Primary Care Provider [phone] Allergies Active Allergy Reactions Criticality Noted Date Comments Sulfamethoxazole-Trimeth oprim 11/05/2016 Bee Venom 03/29/2018 Fluoxetine Altered Mental Status 04/02/2021 Hallucinating Sulfa Antibiotics Hives Medium 01/30/2007 Medications atorvastatin (LIPITOR) 40 MG tablet Take 40 mg by mouth at bedtime. Active escitalopram (LEXAPRO) 10 MG tablet Take 10 mg by mouth daily. Active carVEDilol (CoREG) 6.25 MG tablet Take 2 tablets (12.5 mg total) by mouth 2 (two) times a day with meals. 120 tablet 0 11/10/2016 Active lidocaine (LIDODERM) 5 % patch Place 1 patch on the skin daily. Remove & Discard patch within 12 hours or as directed by 30 patch 0 11/10/2016 Active folic acid (FOLVITE) 1 MG tablet Take 1 tablet (1 mg total) by mouth daily. 30 tablet 0 11/10/2016 Active thiamine 100 MG tablet Take 1 tablet (100 mg total) by mouth daily. 30 tablet 0 11/10/2016 Active acetaminophen (TYLENOL) 325 MG tablet Take 1 tablet (325 mg total) by mouth every 6 (six) hours as needed (With tramadol 50 mg). 30 tablet 0 04/01/2017 Active lactulose (CHRONULAC) 10 GM/15ML solution Take 30 mL (20 g total) by mouth daily as needed for constipation. 240 mL 04/01/2017 Active chlordiazePOXID E (LIBRIUM) 25 MG capsule Take 1 capsule (25 mg total) by mouth 4 (four) times a day. 4 capsule 0 04/02/2017 Active lisinopril (PRINIVIL,ZESTR IL) 20 MG tablet Take 20 mg by mouth daily. Active amLODIPine (NorVASC) 5 MG tablet Take 10 mg by mouth daily. Active predniSONE (DELTASONE) 20 MG tablet Take 2 tablets (40 mg total) by mouth daily for 5 days. 10 tablet 03/29/2018 Active omeprazole (PriLOSEC) 20 MG delayed release capsule Take 20 mg by mouth daily. 03/27/2018 Active traZODone (DESYREL) 50 MG tablet 12/25/2021 Active HYDROmorphone (DILAUDID) 4 MG tablet Active Active Problems Problem Noted Date Diagnosed Date Acute renal failure, unspecified acute renal braulio lure type 03/29/2017 Drug overdose 11/05/2016 Alcohol abuse 11/05/2016 Immunizations Immunization Administration Dates Next Due Influenza, Adult 10/06/2016 Family History Medical History Relation Name Comments No Known Problems Father No Known Problems Mother Relation Name Status Comments Father Mother Social History Tobacco Use Types Packs/Day Years [...] on file Sexual Orientation Not on file Last Filed Vital Signs Vital Sign Reading Time Taken Comments Blood Pressure 155/94 03/01/2022 4:28 PM EDT Pulse 69 03/01/2022 4:28 PM EDT Temperature 37 C (98.6 F) 03/01/2022 4:28 PM EDT Respiratory Rate 16 03/01/2022 4:28 PM EDT Oxygen Saturation 99% 03/01/2022 4:28 PM EDT Inhaled Oxygen Concentration - - Weight 88.5 kg (195 lb) 03/01/2022 4:28 PM EDT Height 175.3 cm (5' 9 ) 03/01/2022 4:28 PM EDT Body Mass Index 28.8 03/01/2022 4:28 PM EDT Plan of Treatment Health Maintenance Due Date Last Done Comments Hepatitis B Screening 1975 Hepatitis C Screening [address] Colonography 2002 Colonoscopy 2002 Colorectal Cancer Screening 2002 FIT-DNA 2002 FOBT 2002 Sigmoidoscopy 2002 Zoster Standard Vaccine (1 of 2) 2007 11/01/2019 Annual Physical 04/20/2021 04/20/2020, 12/26, 09/24/2017 COVID-19 Vaccine (3 - season) 2025 03/13/2021, 02/13/2021 Influenza Vaccine (#1) 2025 , 07/11/2020, 11/01/2019, Additional history exists DTaP,Tdap,and Td Vaccines (4 - Td or Tdap) 06/09/2029 06/09/2019, 05/17/2016, 02/12/2007 RSV Immunization Patients 60+ years or (1 - 1-dose 75+ series) 2032 Pneumococcal Vaccines 50+ yrs Completed 01/15/2019, 03/27/2018, 01/15/2013 HIB Vaccines Aged Out No longer eligi ble based on patient's age to complete this topic Hepatitis A Vaccine Aged Out No longe r eligible based on patient's age to complete this topic Insurance [facility] Advance Directives For more information, please contact: [phone] * Full Code (Latest Code Status on File) Date Activated Date Inactivated Comments 03/02/2019 12:35 AM 03/01/2022 4:12 PM * Full Code Date Activated Date Inactivated Comments 03/29/2017 12:02 PM 04/02/2017 5:42 PM * Full Code Date Activated Date Inactivated Comments 11/05/2016 2:46 PM 11/10/2016 7:25 PM Care Teams Chest Painting Leader Relationship Specialty Start Date End Date Ilya Gusman MD [address] [place] [address] [phone] PCP - General Internal Medicine 03/01/19 Tc Story MD [address] [place] [phone] Physician 04/02/17
--- OUTSIDE RECORDS SUMMARY | 2025-09-23 20:51 | XMS_ITS | Encounter Summary ---
Author Organization [facility] Address [address] [place] [address] Phone Care Team Providers Care Asbestos Siding Mechanic Name Role Phone Ilya Gusman MD Primary Care Provider [phone] Reason for Visit * Reason Onset Date Comments Med Refill 11/28/2022 Encounter Details Date Type Department Care Team ([facility] Contact Info) Description 11/28/2022 Refill [facility] - Internal Medicine [address] [place] [address] [phone] Christophe Dailey MD [address] [place] [phone] Med Refill Social History Tobacco Use [...] 10/06/2025 10:45 AM EST Office Visit [facility] - Internal Medicine [address] [place] [phone] Ilya Gusman MD [address] [place] [phone] Christophe Dailey MD [address] [place] [phone] 01/18/2026 1:00 PM EST Office Visit [facility] [address] [place] [phone] Porsha Marsh, PACKAGER [address] [place] [address] 02/22/2026 11:00 AM EDT Office Visit [facility] [address] [place] [address] [address] [place] [phone] Alonso Bae MD [address] [place] [address] [address] [place] [address] 07/17/2026 2:00 PM EDT Office Visit [facility] - Internal Medicine [address] [place] [phone] Ilya Gusman MD [address] [place] [phone] 07/19/2026 11:40 AM EDT Office Visit [facility] [address] [place] [address] Yesi Perez MD [address] [place] [address] documented as of this encounter [...] documented as of this encounter Care Teams Asbestos Siding Mechanic Relationship Specialty Start Date End Date Ilya Gusman MD [address] [place] [address] [phone] PCP - General 05/14/17 [facility] 09/01/25 documented as of this encounter
--- OUTSIDE RECORDS SUMMARY | 2025-09-23 20:51 | XMS_ITS | Encounter Summary ---
Author Organization [facility] Address [address] [place] [address] Phone Care Team Providers Care Hydro Station Operator Name Role Phone Ilya Gusman MD Primary Care Provider [phone] Encounter Details Date Type Department Care Team (Late st Contact Info) Description 07/08/2025 Scanned Document [facility] - Health Information Department [address] [place], [place] [phone] Scan, No Provider Available [address] [facility] [place] [address] <No scans attached> Social History Tobacco Use [...] 10:45 AM EST Office Visit [facility] - Internal Medicine [address] [place] [phone] Ilya Gusman MD [address] [place] [phone] Christophe Dailey MD [address] [place] [phone] 01/18/2026 1:00 PM EST Office Visit [facility] [address] [address] Porsha Marsh CNP 70 [place] [address] 02/22/2026 11:00 AM EDT Office Visit [facility] [address] [place] [phone] Alonso Bae MD [address] [place] [address] 07/17/2026 2:00 PM EDT Office Visit [facility] - Internal Medicine [address] [place] [phone] Ilya Gusman MD [address] [place] [phone] 07/19/2026 11:40 AM EDT Office Visit [facility] [address] [address] Yesi Perez MD 70 [place] [address] documented as of this encounter Visit Diagnoses Not on filedocumented in this encounter Additional Health Concerns Assessment Noted Time PHQ-9 Depression Total Score: 16 025 11:49 AM EDT documented as of this encounter Care Teams Hydro Station Operator Relationship Specialty Start Date End Date Ilya Gusman MD [address] [place] [phone] PCP - General 05/14/17 [facility] 09/01/25 documented as of this encounter
--- OUTSIDE RECORDS SUMMARY | 2025-09-23 20:51 | XMS_ITS | Encounter Summary ---
Author Organization [facility] Address [address] [place] [address] Phone Care Team Providers Care Sales And Marketing Associate Name Role Phone Ilya Gusman MD Primary Care Provider [phone] Encounter Details Date Type Department Care Team (Late st Contact Info) Description 07/06/2025 Orders Only [facility] - Health Information Department [address] [place] [phone] Ilya Gusman MD [address] [place] [phone] Social History Tobacco Use Types Packs/Day [...] 10:45 AM EST Office Visit [facility] - Internal Medicine [address] [place] [phone] Ilya Gusman MD [address] [place] [phone] Christophe Dailey MD [address] [place] [phone] 01/18/2026 1:00 PM EST Office Visit [facility] [address] [place] [phone] Porsha Marsh CNP 70 [place] [address] 02/22/2026 11:00 AM EDT Office Visit [facility] [address] [place] [phone] Alonso Bae MD [address] [place] [address] [address] [place] [address] 07/17/2026 2:00 PM EDT Office Visit [facility] - Internal Medicine [address] [place] [phone] Ilya Gusman MD [address] [place] [phone] 07/19/2026 11:40 AM EDT Office Visit [facility] [address] [place] [address] Yesi Perez MD [address] [place] [address] documented as of this encounter Procedures Procedure Name Priority Date/Time Associated Diagnosis Comments POLYSOMNOGRAM Routine 06/18/2025 1:51 PM EDT documented in this encounter Results * Polysomnography (06/18/2025 1:51 PM EDT) us Ilya Gusman MD [facility] ORDERABLES Final R esult documented in this encounter Visit Diagnoses Not on filedocumented in this encounter Additional Health Concerns Assessment Noted Time PHQ-9 Depression Total Score: 16 025 11:49 AM EDT documented as of this encounter Care Teams Sales And Marketing Associate Relationship Specialty Start Date End Date Ilya Gusman MD [address] [place] [phone] PCP - General 05/14/17 [facility] 09/01/25 documented as of this encounter
--- OUTSIDE RECORDS SUMMARY | 2025-09-23 20:51 | XMS_ITS | Encounter Summary ---
Author Organization [facility] Address [address] [place] [address] Phone Care Team Providers Care Cook Barbecue Name Role Phone Ilya Gusman MD Primary Care Provider [phone] Reason for Visit * Reason Comments Med Refill Encounter Details Date Type Department Care Team ([facility] Contact Info) Description 01/17/2023 Refill [facility] - Internal Medicine [address] [place] [address] [phone] Ilya Gusman MD [address] [place] [phone] Med Refill Social History Tobacco Use [...] AM EST Office Visit [facility] - Internal Medicine [address] [place] [phone] Ilya Gusman MD [address] [place] [phone] Christophe Dailey MD [address] [place] [phone] 01/18/2026 1:00 PM EST Office Visit [facility] [address] [place] [phone] Porsha Marsh, SUPERVISOR [employer] 70 [place] [address] 02/22/2026 11:00 AM EDT Office Visit [facility] [address] [place] [address] [address] [place] [phone] Alonso Bae MD [address] [place] [address] [address] [place] [address] 07/17/2026 2:00 PM EDT Office Visit [facility] - Internal Medicine [address] [place] [phone] Ilya Gusman MD [address] [place] [phone] 07/19/2026 11:40 AM EDT Office Visit [facility] [address] [place] [address] Yesi Perez MD [address] [place] [address] documented as of this encounter Visit Diagnoses [...] documented as of this encounter Care Teams Cook Barbecue Relationship Specialty Start Date End Date Ilya Gusman MD [address] [place] [phone] PCP - General 05/14/17 [facility] 09/01/25 documented as of this encounter
--- OUTSIDE RECORDS SUMMARY | 2025-09-23 20:51 | XMS_ITS | Encounter Summary ---
Author Organization [facility] Address [address] [place] [address] Phone Care Team Providers Care Log Processor Operator Name Role Phone Ilya Gusman MD Primary Care Provider [phone] Encounter Details Date Type Department Care Team (Late st Contact Info) Description 08/05/2022 Orders Only [facility] - Health Information Department [address] [facility] [place] [address] Scan, No Provider Available [address] [facility] [place] [address] Social History Tobacco Use Types Packs/Day Years [...] Description 10/06/2025 10:45 AM EST Office Visit [facility] - Internal Medicine [address] [place] [phone] Ilya Gusman MD [address] [place] [address] [phone] Christophe Dailey MD [address] [place] [phone] 01/18/2026 1:00 PM EST Office Visit [facility] [address] [place] [phone] Porsha Marsh, RAILROAD CAR LOADER [address] [place] [address] 02/22/2026 11:00 AM EDT Office Visit [facility] [address] [place] [address] [address] [place] [phone] Alonso Bae MD [address] [place] [address] [address] [place] [address] 07/17/2026 2:00 PM EDT Office Visit [facility] - Internal Medicine [address] [place] [phone] Ilya Gusman MD [address] [place] [phone] 07/19/2026 11:40 AM EDT Office Visit [facility] [address] [place] [address] Yesi Perez MD [address] [place] [address] documented as of this encounter Procedures Procedure Name Priority Date/Time Associated Diagnosis Comments MR INO LABS Routine 07/17/2022 documented in this encounter Results * MR Ino briseno (07/17/2022) us No Provider Available Scan LAB BLOOD [...] documented as of this encounter Care Teams Log Processor Operator Relationship Specialty Start Date End Date Ilya Gusman MD [address] [place] [address] [phone] PCP - General 05/14/17 [facility] 09/01/25 documented as of this encounter
--- OUTSIDE RECORDS SUMMARY | 2025-09-23 20:51 | XMS_ITS | Encounter Summary ---
Author Organization [facility] Address [address] [place] [address] Phone Care Team Providers Care Lithographer Helper Name Role Phone Ilya Gusman MD Primary Care Provider [phone] Reason for Visit * Reason Onset Date Comments Med Refill 07/29/2022 Encounter Details Date Type Department Care Team (Late st Contact Info) Description 07/29/2022 Refill [facility] - Internal Medicine [address] [place] [address] [phone] Christophe Dailey MD [address] [place] [phone] Med Refill Social History Tobacco Use [...] suspected to have Coronavirus/COVID-19? No / Unsure 07/31/2022 11:50 AM EDT documented as of this encounter Plan of Treatment Upcoming Encounters Date Type Department Care Team (Late st Contact Info) Description 10/06/2025 10:45 AM EST Office Visit [facility] - Internal Medicine [address] [place] [phone] Ilya Gusman MD [address] [place] [phone] Christophe Dailey MD [address] [place] [phone] 01/18/2026 1:00 PM EST Office Visit [facility] 70 [facility] [address] [place] [address] Porsha Marsh, MEMBERSHIP MANAGER [address] [place] [address] 02/22/2026 11:00 AM EDT Office Visit [facility] [address] [place] [address] [address] [place] [phone] Alonso Bae MD [address] [place] [address] [address] [place] [address] 07/17/2026 2:00 PM EDT Office Visit [facility] - Internal Medicine [address] [place] [phone] Ilay Gusman MD [address] [place] [phone] 07/19/2026 11:40 AM EDT Office Visit [facility] [address] [address] Yesi Perez MD 70 [place] [address] documented as of this encounter Visit Diagnoses [...] documented as of this encounter Care Teams Lithographer Helper Relationship Specialty Start Date End Date Ilya Gusman MD [address] [place] [address] [phone] PCP - General 05/14/17 [facility] 09/01/25 documented as of this encounter
--- OUTSIDE RECORDS SUMMARY | 2025-09-23 20:51 | XMS_ITS | Encounter Summary ---
Author Organization [facility] Address [address] [place] [address] Phone Care Team Providers Care Director Prison Name Role Phone Ilya Gusman MD Primary Care Provider Encounter Details Date Type Department Care Team (Late st Contact Info) Description 06/25/2017 Procedure Pass [facility] [place] [address] [place] [phone] Social History Tobacco Use Types Packs/Day Years Used Date Smoking Tobacco: Never Smokeless Tobacco: Never Alcohol Use Standard Drinks/Week Comments Yes 0 (1 standard drink = 0.6 oz pur e alcohol) ETOH dependence- last use 03/10 Sex and Gender Information Value Date Recorded Sex Assigned at Not on file Legal Sex Male 9:28 AM EDT Gender Identity Not on file Sexual Orientation Not on file documented as of this encounter Plan of Treatment Upcoming Encounters Date Type Department Care Team (Late Contact Info) Description 10/06/2025 10:45 AM EST Office Visit [facility] - Internal Medicine [address] [place] [phone] Ilya Gusman MD [address] [place] [phone] Christophe Dailey MD [address] [place] [phone] 01/18/2026 1:00 PM EST Office Visit [facility] [address] [place] [address] 1 [place] [address] Porsha Marsh, COOLER TENDER 70 [place] [address] 02/22/2026 11:00 AM EDT Office Visit [facility] [address] [place] [address] [address] [place] [phone] Alonso Bae MD [address] [place] [address] [address] [place] [address] 07/17/2026 2:00 PM EDT Office Visit [facility] - Internal Medicine [address] [place] [phone] Ilya Gusman MD [address] [place] [phone] 07/19/2026 11:40 AM EDT Office Visit [facility] [address] [place] [address] Yesi Perez MD [address] [place] [address] documented as of this encounter Visit Diagnoses [...] documented as of this encounter Care Teams Director Prison Relationship Specialty Start Date End Date Ilya Gusman MD [address] [place] [phone] PCP - General 05/14/17 [facility] 09/01/25 documented as of this encounter
--- OUTSIDE RECORDS SUMMARY | 2025-09-23 20:51 | XMS_ITS | Encounter Summary ---
Author Organization [facility] Address [address] [place] [address] Phone Care Team Providers Care Steaming Cabinet Tender Name Role Phone Ilya Gusman MD Primary Care Provider [phone] Encounter Details Date Type Department Care Team (Late st Contact Info) Description 07/07/2025 Scanned Document [facility] - Health Information Department [address] [place], [place] [phone] Scan, No Provider Available [address] [facility] [place] [address] <No scans attached> Social History Tobacco Use [...] 10:45 AM EST Office Visit [facility] - Internal Medicine [address] [place] [phone] Ilya Gusman MD [address] [place] [phone] Christophe Dailey MD [address] [place] [phone] 01/18/2026 1:00 PM EST Office Visit [facility] [address] [address] Porsha Marsh CNP 70 [place] [address] 02/22/2026 11:00 AM EDT Office Visit [facility] [address] [place] [phone] Alonso Bea MD [address] [place] [address] 07/17/2026 2:00 PM EDT Office Visit [facility] - Internal Medicine [address] [place] [phone] Ilya Gusman MD [address] [place] [phone] 07/19/2026 11:40 AM EDT Office Visit [facility] [address] [address] Yesi Perez MD 70 [place] [address] documented as of this encounter Visit Diagnoses Not on filedocumented in this encounter Additional Health Concerns Assessment Noted Time PHQ-9 Depression Total Score: 16 025 11:49 AM EDT documented as of this encounter Care Teams Steaming Cabinet Tender Relationship Specialty Start Date End Date Ilya Gusman MD [address] [place] [phone] PCP - General 05/14/17 [facility] 09/01/25 documented as of this encounter
--- OUTSIDE RECORDS SUMMARY | 2025-09-23 20:51 | XMS_ITS | Encounter Summary ---
Author Organization [facility] Address [address] [place] [address] Phone Care Team Providers Care Gluing Crew Leader Name Role Phone Ilya Gusman MD Primary Care Provider [phone] Encounter Details Date Type Department Care Team (Late st Contact Info) Description 07/03/2025 Scanned Document [facility] - Health Information Department [address] [place], [place] [phone] Scan, No Provider Available [address] [facility] [place] [address] <No scans attached> Social History Tobacco Use [...] Author Yes 05/20/2025 10:06 AM EDT Roberta Wnag MA * Do you have serious difficulty [...] 10:45 AM EST Office Visit [facility] - Internal Medicine [address] [place] [phone] Ilya Gusman MD [address] [place] [phone] Christophe Dailey MD [address] [place] [phone] 01/18/2026 1:00 PM EST Office Visit [facility] [address] [address] Porsha Marsh CNP 70 [place] [address] 02/22/2026 11:00 AM EDT Office Visit [facility] [address] [place] [phone] Alonso Bae MD [address] [place] [address] 07/17/2026 2:00 PM EDT Office Visit [facility] - Internal Medicine [address] [place] [phone] Ilya Gusman MD [address] [place] [phone] 07/19/2026 11:40 AM EDT Office Visit [facility] [address] [address] Yesi Perez MD 70 [place] [address] documented as of this encounter Visit Diagnoses Not on filedocumented in this encounter Additional Health Concerns Assessment Noted Time PHQ-9 Depression Total Score: 16 025 11:49 AM EDT documented as of this encounter Care Teams Gluing Crew Leader Relationship Specialty Start Date End Date Ilya Gusman MD [address] [place] [phone] PCP - General 05/14/17 [facility] 09/01/25 documented as of this encounter
--- OUTSIDE RECORDS SUMMARY | 2025-09-23 20:51 | XMS_ITS | Encounter Summary ---
[facility] Organization [facility] Address [address] [place] [address] Phone Care Team Providers Care Pipe Finishing Supervisor Name Role Phone Ilya Gusman MD Primary Care Provider [phone] Encounter Details Date Type Department Care Team (Late Contact Info) Description 07/31/2022 Procedure Pass [facility] Endoscopy [address] [place] [address] Social History Tobacco Use Types [...] Description 10/06/2025 10:45 AM EST Office Visit [facility] - Internal Medicine [address] [place] [phone] Ilya Gusman MD [address] [place] [phone] Christophe Dailey MD [address] [place] [phone] 01/18/2026 1:00 PM EST Office Visit [facility] [address] [place] [address] Porsha Marsh, MARILIA [address] [place] [address] 02/22/2026 11:00 AM EDT Office Visit [facility] [address] [place] [address] [address] [place] [phone] Alonso Bae MD [address] [place] [address] [address] [place] [address] 07/17/2026 2:00 PM EDT Office Visit [facility] - Internal Medicine [address] [place] [phone] Ilya Gusman MD [address] [place] [phone] 07/19/2026 11:40 AM EDT Office Visit [facility] [address] [place] [address] Yesi Perez MD [address] [place] [address] documented as of this encounter Visit Diagnoses [...] documented as of this encounter Care Teams Pipe Finishing Supervisor Relationship Specialty Start Date End Date Ilya Gusman MD [address] [place] [phone] PCP - General 05/14/17 [facility] 09/01/25 documented as of this encounter
--- OUTSIDE RECORDS SUMMARY | 2025-09-23 20:51 | XMS_ITS | Encounter Summary ---
Author Organization [facility] Address [address] [place] [address] Phone Care Team Providers Care Cleaning Professional Name Role Phone Ilya Gusman MD Primary Care Provider [phone] Reason for Visit * Reason Onset Date Comments Med Refill 11/28/2022 Encounter Details Date Type Department Care Team ([facility] Contact Info) Description 11/28/2022 Refill [facility] - Internal Medicine [address] [place] [phone] Christophe Dailey MD [address] [place] [phone] Med Refill Social History Tobacco Use [...] 10/06/2025 10:45 AM EST Office Visit [facility] - Internal Medicine [address] [place] [phone] Ilya Gusman MD [address] [place] [phone] Christophe Dailey MD [address] [place] [phone] 01/18/2026 1:00 PM EST Office Visit [facility] [address] [place] [phone] Porsha Marsh, MUSIC CRITIC [address] [place] [address] 02/22/2026 11:00 AM EDT Office Visit [facility] [address] [place] [address] [address] [place] [phone] Alonso Bae MD [address] [place] [address] [address] [place] [address] 07/17/2026 2:00 PM EDT Office Visit [facility] - Internal Medicine [address] [place] [phone] Ilya Gusman MD [address] [place] [phone] 07/19/2026 11:40 AM EDT Office Visit [facility] [address] [place] [address] Yesi Perez MD 70 [place] [address] documented as of this encounter [...] documented as of this encounter Care Teams Cleaning Professional Relationship Specialty Start Date End Date Ilya Gusman MD [address] [place] [phone] PCP - General 05/14/17 [facility] 09/01/25 documented as of this encounter
--- OUTSIDE RECORDS SUMMARY | 2025-09-23 20:51 | XMS_ITS | Encounter Summary ---
Author Organization [facility] Address [address] [place] [address] Phone Care Team Providers Care Oil Laboratory Analyst Name Role Phone Ilya Gusman MD Primary Care Provider [phone] Encounter Details Date Type Department Care Team (Late st Contact Info) Description 01/16/2023 Orders Only [facility] - Health Information Department [address] [place] [address] Scan, No Provider Available 141 [facility]] [place] [address] Social History Tobacco Use Types Packs/Day Years [...] 10:45 AM EST Office Visit [facility] - Internal Medicine [address] [place] [phone] Ilya Gusman MD [address] [place] [phone] Christophe Dailey MD [address] [place] [phone] 01/18/2026 1:00 PM EST Office Visit [facility] [address] [place] [phone] Porsha Marsh, METAL RIVETING MACHINE OPERATOR [address] [place] [address] 02/22/2026 11:00 AM EDT Office Visit [facility] [address] [place] [address] [address] [place] [phone] Alonso Bae MD [address] [place] [address] [address] [place] [address] 07/17/2026 2:00 PM EDT Office Visit [facility] - Internal Medicine [address] [place] [phone] Ilya Gusman MD [address] [place] [phone] 07/19/2026 11:40 AM EDT Office Visit [facility] [address] [place] [address] Yesi Perez MD [address] [place] [address] documented as of this encounter Procedures Procedure Name Priority Date/Time Associated Diagnosis Comments MR INO COX Routine 01/07/2023 XR CHEST 2 VW Routine 01/07/2023 documented in this encounter Results * MR Ino cox (01/07/2023) us No Provider Available Scan LAB BLOOD ORDERABLES Final Result * X-ray chest 2 views (01/07/2023) Anatomical Region Laterality Modality Body Radiographic Carmelina [...] documented as of this encounter Care Teams Oil Laboratory Analyst Relationship Specialty Start Date End Date Ilya Gusman MD [address] [place] [phone] PCP - General 05/14/17 [facility] 09/01/25 documented as of this encounter
--- OUTSIDE RECORDS SUMMARY | 2025-09-23 20:51 | XMS_ITS | Encounter Summary ---
Author Organization [facility] Address [address] [place] [address] Phone Care Team Providers Care Cloth Printing Utility Worker Name Role Phone Ilya Gusman MD Primary Care Provider [phone] Encounter Details Date Type Department Care Team (Late st Contact Info) Description 07/02/2025 Scanned Document [facility] - Health Information Department [address] [place], [place] [id number] Scan, No Provider Available 141 [facility] [place] [address] <No scans attached> Social History Tobacco Use [...] 10/06/2025 10:45 AM EST Office Visit [facility] - Internal Medicine [address] [place] [phone] Ilya Gusman MD [address] [place] [phone] Christophe Dailey MD [address] [place] [phone] 01/18/2026 1:00 PM EST Office Visit [facility] [address] [address] Porsha Marsh CNP 70 [place] [address] 02/22/2026 11:00 AM EDT Office Visit [facility] [address] [place] [phone] Alonso Bae MD [address] [place] [address] 07/17/2026 2:00 PM EDT Office Visit [facility] - Internal Medicine [address] [place] [phone] Ilya Gusman MD [address] [place] [phone] 07/19/2026 11:40 AM EDT Office Visit [facility] [address] [address] Yesi Perez MD 70 [place] [address] documented as of this encounter Visit Diagnoses Not on filedocumented in this encounter Additional Health Concerns Assessment Noted Time PHQ-9 Depression Total Score: 16 025 11:49 AM EDT documented as of this encounter Care Teams Cloth Printing Utility Worker Relationship Specialty Start Date End Date Ilya Gusman MD [address] [place] [phone] PCP - General 05/14/17 [facility] 09/01/25 documented as of this encounter
--- OUTSIDE RECORDS SUMMARY | 2025-09-23 20:51 | XMS_ITS | Encounter Summary ---
Author Organization [facility] Address [address] [place] [address] Phone Care Team Providers Care Chemical Technician Name Role Phone Ilya Gusman MD Primary Care Provider [phone] Encounter Details Date Type Department Care Team (Late st Contact Info) Description 06/21/2025 Scanned Document [facility] - Health Information Department 143 [place], [place] [id number] Scan, No Provider Available 141 [facility] [place] [address] <No scans attached> Social History Tobacco Use [...] 10/06/2025 10:45 AM EST Office Visit [facility] - Internal Medicine [address] [place] [phone] Ilya Gusman MD [address] [place] [phone] Christophe Dailey MD [address] [place] [phone] 01/18/2026 1:00 PM EST Office Visit [facility] [address] [address] Porsha Marsh CNP 70 [place] [address] 02/22/2026 11:00 AM EDT Office Visit [facility] [address] [place] [phone] Alonso Bae MD [address] [place] [address] 07/17/2026 2:00 PM EDT Office Visit [facility] - Internal Medicine [address] [place] [phone] Ilya Gusman MD [address] [place] [phone] 07/19/2026 11:40 AM EDT Office Visit [facility] [address] [address] Yesi Perez MD 70 [place] [address] documented as of this encounter Visit Diagnoses Not on filedocumented in this encounter Additional Health Concerns Assessment Noted Time PHQ-9 Depression Total Score: 16 025 11:49 AM EDT documented as of this encounter Care Teams Chemical Technician Relationship Specialty Start Date End Date Ilya Gusman MD [address] [place] [phone] PCP - General 05/14/17 [facility] 09/01/25 documented as of this encounter
--- OUTSIDE RECORDS SUMMARY | 2025-09-23 20:51 | XMS_ITS | Encounter Summary ---
Author Organization [facility] Address [address] [place] [address] Phone Care Team Providers Care Duplicating Machine Servicer Name Role Phone Ilya Gusman MD Primary Care Provider [phone] Encounter Details Date Type Department Care Team (Late st Contact Info) Description 10/25/2022 Scanned Document [facility] - Health Information Department [address] [place], [place] [phone] Scan, No Provider Available 141 [facility] [place] [address] <No scans attached> Social History Tobacco Use [...] Visit [facility] - Internal Medicine [address] [place] [phone] Ilya Gusman MD [address] [place] [phone] Christophe Dailey MD [address] [place] [phone] 01/18/2026 1:00 PM EST Office Visit [facility] [address] [place] [address] Porsha Marsh, MARILIA [address] [place] [address] 02/22/2026 11:00 AM EDT Office Visit [facility] [address] [place] [address] [address] [place] [phone] Alonso Bae MD [address] [place] [address] [address] [place] [address] 07/17/2026 2:00 PM EDT Office Visit [facility] - Internal Medicine [address] [place] [phone] Ilya Gusman MD [address] [place] [phone] 07/19/2026 11:40 AM EDT Office Visit [facility] [address] [place] [address] Yesi Perez MD [address] [place] [address] documented as of this encounter Visit Diagnoses [...] documented as of this encounter Care Teams Duplicating Machine Servicer Relationship Specialty Start Date End Date Ilya Gusman MD [address] [place] [phone] PCP - General 05/14/17 [facility] 09/01/25 documented as of this encounter
--- OUTSIDE RECORDS SUMMARY | 2025-09-23 20:51 | XMS_ITS | Encounter Summary ---
Author Organization [facility] Address [address] [place] [address] Phone Care Team Providers Care Microsoft Bi Consultant Name Role Phone Ilya Gusman MD Primary Care Provider [phone] Reason for Visit * Reason Onset Date Comments Med Refill 08/07/2022 Encounter Details Date Type Department Care Team ([facility] Contact Info) Description 08/07/2022 Refill [facility] - Internal Medicine [address] [place] [address] [phone] Christophe Dailey MD [address] [place] [phone] Med Refill Social History Tobacco Use [...] Telephone Encounter - Renuka Gallegos MA - 08/07/2022 1:32 PM EDT Pt requesting albuterol refill. Last written 07/03/22 qty 1-0 . Per protocol, asthma refills on albuterol inhalers will be limited to 2 per 6 months. More than 2per 6 months or 3 per calendar year indicate poor asthma control. Last OV 07/16/22 Future Appointments Date Time Provider Department Center 09/10/2022 10:30 AM MD PAOL[facility] 10/21/2022 11:00 AM Ilya Gusman MD [facility] GALLEGOS [place] documented in this encounter Plan of Treatment Upcoming Encounters Date Type Department Care Team (Late st Contact Info) Description 10/06/2025 10:45 AM EST Office Visit [facility] - Internal Medicine [address] [place] [phone] Ilya Gusman MD [address] [place] [phone] Christophe Dailey MD [address] [place] [address] [phone] 01/18/2026 1:00 PM EST Office Visit [facility] 70 [facility] 1 [place] [address] Porsha Marsh, MARILIA 70 [place] [address] 02/22/2026 11:00 AM EDT Office Visit [facility] [address] [place] [address] [address] [place] [address] Alonso Bae MD 780 [facility] [address] [place] [address] 07/17/2026 2:00 PM EDT Office Visit [facility] - Internal Medicine [address] [place] [phone] Ilya Gusman MD [address] [place] [phone] 07/19/2026 11:40 AM EDT Office Visit [facility] [address] [address] Yesi Perez MD 70 [place] [address] documented as of this encounter Visit Diagnoses [...] documented as of this encounter Care Teams Microsoft Bi Consultant Relationship Specialty Start Date End Date Ilya Gusman MD [address] [place] [phone] PCP - General 05/14/17 [facility] 09/01/25 documented as of this encounter
--- OUTSIDE RECORDS SUMMARY | 2025-09-23 20:51 | XMS_ITS | Encounter Summary ---
Author Organization [facility]stem Address [address] [place] [address] Phone Care Team Providers Care Echocardiography Technologist Name Role Phone Ilya Gusman MD Primary Care Provider Encounter Details Date Type Department Care Team (Late st Contact Info) Description 12/19/2022 Orders Only [facility] - Health Information Department 143 [place] [address] Scan, No Provider Available [address] [facility] [address] Social History Tobacco Use Types Packs/Day Years [...] suspected to have Coronavirus/COVID-19? No / Unsure 12/19/2022 8:43 AM EST documented as of this encounter Plan of Treatment Upcoming Encounters Date Type Department Care Team (Late st Contact Info) Description 10/06/2025 10:45 AM EST Office Visit [facility] - Internal Medicine [address] [place] [phone] Ilya Gusman MD [address] [place] [address] [phone] Christophe Dailey MD [address] [place] [phone] 01/18/2026 1:00 PM EST Office Visit [facility] [address] [place] [address] Porsha Marsh, MARILIA [address] [place] [address] 02/22/2026 11:00 AM EDT Office Visit [facility] [address] [place] [address] [address] [place] [phone] Alonso Bae MD [address] [place] [address] [address] [place] [address] 07/17/2026 2:00 PM EDT Office Visit [facility] - Internal Medicine [address] [place] [phone] Ilya Gusman MD [address] [place] [phone] 07/19/2026 11:40 AM EDT Office Visit [facility] [address] [place] [address] Yesi Perez MD [address] [place] [address] documented as of this encounter Procedures Procedure Name Priority Date/Time Associated Diagnosis Comments NM MYOCARDIAL PERFUSION SPEC T (REST AND STRESS) STAT 12/04/2022 MR [facility] Routine 11/30/2022 XR CHEST 1 VW Routine 11/30/2022 ECG 12-LEAD Today 11/30/2022 documented in this encounter Results * Nuclear Medicine myocardial perfusion SPECT (rest and stress) (12/04/2022) Anatomical Region Laterality Modality Body Nuclear Medicine us No Provider Available Scan IMG NM PROCEDURES Fin al Result * MR [facility] (11/30/2022) us No Provider Available Scan LAB BLOOD ORDERABLES Final Result * X-ray chest 1 view (11/30/2022) Anatomical Region Laterality Modality Body Radiographic Carmelina ging us No Provider Available Scan IMG XR PROCEDURES Fin al Result * ECG (11/30/2022) us No Provider Available Scan ECG ORDERABLES [...] documented as of this encounter Care Teams Echocardiography Technologist Relationship Specialty Start Date End Date Ilya Gusman MD [address] [place] [phone] PCP - General 05/14/17 [facility] 09/01/25 documented as of this encounter
--- OUTSIDE RECORDS SUMMARY | 2025-09-23 20:51 | XMS_ITS | Encounter Summary ---
Author Organization [facility]stem Address [address] [place] [address] Phone Care Team Providers Care Dip Stand Loader Name Role Phone Ilya Gusman MD Primary Care Provider [phone] Encounter Details Date Type Department Care Team (Late st Contact Info) Description 12/09/2022 Orders Only [facility] - Health Information Department 143 [facility] [place] [id number] Scan, No Provider Available [address] [facility] [place] [address] Social History Tobacco Use Types Packs/Day Years [...] EST Office Visit [facility] - Internal Medicine [address] [place] [phone] Ilya Gusman MD [address] [place] [address] [phone] Christophe Dailey MD [address] [place] [phone] 01/18/2026 1:00 PM EST Office Visit [facility] [address] [place] [address] Porsha Marsh, WOODWORK TEACHER [address] [place] [address] 02/22/2026 11:00 AM EDT Office Visit [facility] [address] [place] [address] [address] [place] [phone] Alonso Bae MD [address] [place] [address] [address] [place] [address] 07/17/2026 2:00 PM EDT Office Visit [facility] - Internal Medicine [address] [place] [phone] Ilya Gusman MD [address] [place] [phone] 07/19/2026 11:40 AM EDT Office Visit [facility] [address] [place] [phone] Yesi Perez MD [address] [place] [address] documented as of this encounter Procedures Procedure Name Priority Date/Time Associated Diagnosis Comments CT ABDOMEN PELVIS W CONTRAST Routine 11/30/2022 documented in this encounter Results * CT abdomen pelvis with contrast per algorithm (11/30/2022) Anatomical Region Laterality Modality Body Computed Tomogra phy us No Provider Available Scan IMG CT PROCEDURES Fin al Result documented in this [...] documented as of this encounter Care Teams Dip Stand Loader Relationship Specialty Start Date End Date Ilya Gusman MD [address] [place] [address] [phone] PCP - General 05/14/17 [facility] 09/01/25 documented as of this encounter
--- OUTSIDE RECORDS SUMMARY | 2025-09-23 20:51 | XMS_ITS | Encounter Summary ---
Author Organization [facility] ystem Address [address] [place] [address] Phone Care Team Providers Care Oxygen Tank Filler Name Role Phone Ilya Gusman MD Primary Care Provider [phone] Encounter Details Date Type Department Care Team (Late st Contact Info) Description 12/01/2022 Scanned Document [facility] - Health Information Department 143 [place], [place] [phone] Scan, No Provider Available [address] [facility] [address] <No scans attached> Social History Tobacco Use [...] 10:45 AM EST Office Visit [facility] - Internal Medicine [address] [place] [phone] Ilya Gusman MD [address] [place] [phone] Christophe Dailey MD [address] [place] [phone] 01/18/2026 1:00 PM EST Office Visit [facility] [address] [place] [address] Porsha Marsh, MARILIA [address] [place] [address] 02/22/2026 11:00 AM EDT Office Visit [facility] [address] [place] [address] [address] [place] [phone] Alonso Bae MD [address] [place] [address] [address] [place] [address] 07/17/2026 2:00 PM EDT Office Visit [facility] - Internal Medicine [address] [place] [phone] Ilya Gusman MD [address] [place] [phone] 07/19/2026 11:40 AM EDT Office Visit [facility] [address] [place] [address] Yesi Perez MD [address] [place] [address] documented as of this encounter Visit Diagnoses [...] documented as of this encounter Care Teams Oxygen Tank Filler Relationship Specialty Start Date End Date Ilya Gusman MD [address] [place] [phone] PCP - General 05/14/17 [facility] 09/01/25 documented as of this encounter
--- OUTSIDE RECORDS SUMMARY | 2025-09-23 20:51 | XMS_ITS | Encounter Summary ---
[facility] Address [address] [place] [address] Phone Care Team Providers Care Look Out Tower Fire Watcher Name Role Phone Ilya Gusman MD Primary Care Provider [phone] Reason for Visit * Reason Onset Date Comments Med Refill 12/01/2022 Encounter Details Date Type Department Care Team ([facility] Contact Info) Description 12/01/2022 Telephone [facility] - Family Medicine [address] [place] [phone] Sara Richards, DOMINGA Med Refill Social History Tobacco Use Types [...] Telephone Encounter - Christophe Dailey MD - 12/03/2022 9:47 AM EST Script sent * Telephone Encounter - Sara Richards RN - 12/01/2022 12:49 PM EST Patient calling requesting Dilaudid refill states he requested medication on but med was never sent over. Per refill encounter 11/28/22 appears medication was refused. Nursing advised will forward message but controlled substances are not handled over the weekend. Patient verbalizes clear und erstanding. Sara Richards, garden consultant Medicine documented in this encounter Plan of Treatment Upcoming Encounters Date Type Department Care Team (Late st Contact Info) Description 10/06/2025 10:45 AM EST Office Visit [facility] - Internal Medicine [address] [place] [phone] Ilya Gusman MD [address] [place] [phone] Christophe Dailey MD [address] [place] [phone] 01/18/2026 1:00 PM EST Office Visit [facility] 70 [facility] 1 [place] [address] Porsha Marsh, AWS DEVELOPER [address] [place] [address] 02/22/2026 11:00 AM EDT Office Visit [facility] [address] [place] [address] [address] [place] [phone] Alonso Bae MD [address] [place] [address] [address] [place] [address] 07/17/2026 2:00 PM EDT Office Visit [facility] - Internal Medicine [address] [place] [phone] Ilya Gusman MD [address] [place] [phone] 07/19/2026 11:40 AM EDT Office Visit [facility] [address] [address] Yesi Perez MD 70 [place] [address] documented as of this encounter Visit Diagnoses [...] documented as of this encounter Care Teams Look Out Tower Fire Watcher Relationship Specialty Start Date End Date Ilya Gusman MD [address] [place] [phone] PCP - General 05/14/17 [facility] 09/01/25 documented as of this encounter
--- OUTSIDE RECORDS SUMMARY | 2025-09-23 20:52 | XMS_ITS | Encounter Summary ---
Author Organization [facility] Address [address] [place] [address] Phone Care Team Providers Care District Sales Coordinator Name Role Phone Ilya Gusman MD Primary Care Provider [phone] Encounter Details Date Type Department Care Team (Late Contact Info) Description 03/22/2021 Procedure Pass [facility] - MR Imaging [address] [place] [address] Social History Tobacco Use Types [...] or suspected to have Coronavirus / COVID-19? Unable to assess 03/25/2021 12:25 PM EDT documented as of this encounter Plan of Treatment Upcoming Encounters Date Type Department Care Team (Late st Contact Info) Description 10/06/2025 10:45 AM EST Office Visit [facility] - Internal Medicine [address] [place] [phone] Ilya Gusman MD [address] [place] [phone] Christophe Dailey MD [address] [place] [phone] 01/18/2026 1:00 PM EST Office Visit [facility] [address] [place] [address] Porsha Marsh CNP 70 [place] [address] 02/22/2026 11:00 AM EDT Office Visit [facility] [address] [place] [address] [address] [place] [phone] Alonso Bae MD [address] [place] [address] [address] [place] [address] 07/17/2026 2:00 PM EDT Office Visit [facility] - Internal Medicine [address] [place] [phone] Ilya Gusman MD [address] [place] [phone] 07/19/2026 11:40 AM EDT Office Visit [facility] [address] [place] [address] Yesi Perez MD 70 [place] [address] documented as of this encounter Visit Diagnoses [...] documented as of this encounter Care Teams District Sales Coordinator Relationship Specialty Start Date End Date Ilya Gusman MD [address] [place] [phone] PCP - General 05/14/17 [facility] 09/01/25 documented as of this encounter
--- OUTSIDE RECORDS SUMMARY | 2025-09-23 20:52 | XMS_ITS | Encounter Summary ---
Author Organization [facility]stem Address [address] [place] [address] Phone Care Team Providers Care Sports Attorney Name Role Phone Ilya Gusman MD Primary Care Provider [phone] Encounter Details Date Type Department Care Team (Late st Contact Info) Description 03/22/2021 Scanned Document [facility] - Health Information Department [address] [place], [place] [phone] Scan, No Provider Available [address] [facility] [place] [address] <No scans attached> Social History Tobacco Use [...] 10:45 AM EST Office Visit [facility] - Internal Medicine [address] [place] [phone] Ilya Gusman MD [address] [place] [phone] Christophe Dailey MD [address] [place] [phone] 01/18/2026 1:00 PM EST Office Visit [facility] [address] [place] [address] Porsha Marsh, DORMITORY SUPERVISOR [address] [place] [address] 02/22/2026 11:00 AM EDT Office Visit [facility] [address] [place] [address] [address] [place] [phone] Alonso Bae MD [address] [place] [address] [address] [place] [address] 07/17/2026 2:00 PM EDT Office Visit [facility] - Internal Medicine [address] [place] [phone] Ilya Gusman MD [address] [place] [phone] 07/19/2026 11:40 AM EDT Office Visit [facility] [address] [place] [address] Yesi Perez MD [address] [place] [address] documented as of this encounter Visit Diagnoses [...] documented as of this encounter Care Teams Sports Attorney Relationship Specialty Start Date End Date Ilya Gusman MD [address] [place] [phone] PCP - General 05/14/17 [facility] 09/01/25 documented as of this encounter
--- OUTSIDE RECORDS SUMMARY | 2025-09-23 20:52 | XMS_ITS | Encounter Summary ---
[facility] Address [address] [place] [address] Phone Care Team Providers Care Inventory Planner Name Role Phone Ilya Gusman MD Primary Care Provider [phone] Encounter Details Date Type Department Care Team ([facility] Contact Info) Description 09/16/2017 Orders Only [facility] - Internal Medicine [address] [place] [phone] Ilya Gusman MD [address] [place] [phone] Right leg pain (Primary Dx) Social History Tobacco Use Types [...] Upcoming Encounters Date Type Department Care Team ([facility] Contact Info) Description 10/06/2025 10:45 AM EST Office Visit [facility] - Internal Medicine [address] [place] [phone] Ilya Gusman MD [address] [place] [phone] Christophe Dailey MD [address] [place] [phone] 01/18/2026 1:00 PM EST Office Visit [facility] [address] [place] [address] Porsha Marsh, POWDER ROOM ATTENDANT [address] [place] [address] 02/22/2026 11:00 AM EDT Office Visit [facility] [address] [place] [address] [address] [place] [phone] Alonso Bae MD [address] [place] [address] [address] [place] [address] 07/17/2026 2:00 PM EDT Office Visit [facility] - Internal Medicine [address] [place] [phone] Ilya Gusman MD [address] [place] [phone] 07/19/2026 11:40 AM EDT Office Visit [facility] [address] [place] [address] Yesi Perez MD [address] [place] [address] documented as of this encounter Visit Diagnoses Diagnosis Right leg pain- Primary Pain in soft tissues of limb documented in this encounter Additional Health Concerns [...] documented as of this encounter Care Teams Inventory Planner Relationship Specialty Start Date End Date Ilya Gusman MD [address] [place] [phone] PCP - General 05/14/17 [facility] 09/01/25 documented as of this encounter
--- OUTSIDE RECORDS SUMMARY | 2025-09-23 20:52 | XMS_ITS | Encounter Summary ---
Author Organization [facility]stem Address [address] [place] [address] Phone Care Team Providers Care Detective Youth Bureau Name Role Phone Ilya Gusman MD Primary Care Provider [phone] Encounter Details Date Type Department Care Team (Late st Contact Info) Description 10/10/2020 Orders Only [facility] - Health Information Department 143 [place] [address] Scan, No Provider Available [address] [place] [id number] Social History Tobacco Use Types Packs/Day Years [...] have Coronavirus / COVID-19? No / Unsure 10/13/2020 10:15 AM EST documented as of this encounter Plan of Treatment Upcoming Encounters Date Type Department Care Team (Late st Contact Info) Description 10/06/2025 10:45 AM EST Office Visit [facility] - Internal Medicine [address] [place] [phone] Ilya Gusman MD [address] [place] [phone] Christophe Dailey MD [address] [place] [phone] 01/18/2026 1:00 PM EST Office Visit [facility] [address] [place] [address] Porsha Marsh, NUTRITION AIDE [address] [place] [address] 02/22/2026 11:00 AM EDT Office Visit [facility] [address] [place] [address] [address] [place] [phone] Alonso Bae MD [address] [place] [address] [address] [place] [address] 07/17/2026 2:00 PM EDT Office Visit [facility] - Internal Medicine [address] [place] [phone] Ilya Gusman MD [address] [place] [phone] 07/19/2026 11:40 AM EDT Office Visit [facility] [address] [place] [address] Yesi Perez MD [address] [place] [address] documented as of this encounter Procedures Procedure Name Priority Date/Time Associated Diagnosis Comments XR CHEST 1 VW Routine 09/28/2020 documented in this encounter Results * X-ray chest 1 view (09/28/2020) Anatomical Region Laterality Modality Body Radiographic Carmelina [...] documented as of this encounter Care Teams Detective Youth Bureau Relationship Specialty Start Date End Date Ilya Gusman MD [address] [place] [phone] PCP - General 05/14/17 [facility] 09/01/25 documented as of this encounter
--- OUTSIDE RECORDS SUMMARY | 2025-09-23 20:52 | XMS_ITS | Encounter Summary ---
Author Organization [facility] Address [address] [place] [address] Phone Care Team Providers Care Frame Stripper Name Role Phone Ilya Gusman MD Primary Care Provider [phone] Encounter Details Date Type Department Care Team ([facility] Contact Info) Description 09/25/2017 Orders Only [facility] - X-Ray Imaging 55 [place] [address] Osmin Barnes MD 55 [place] [address] Social History Tobacco Use Types Packs/Day Years [...] Upcoming Encounters Date Type Department Care Team ([facility] Contact Info) Description 10/06/2025 10:45 AM EST Office Visit [facility] - Internal Medicine [address] [place] [phone] Ilya Gusman MD [address] [place] [phone] Christophe Dailey MD [address] [place] [phone] 01/18/2026 1:00 PM EST Office Visit [facility] [address] [place] [address] Porsha Marsh, INDUSTRIAL PROPERTY APPRAISER [address] [place] [address] 02/22/2026 11:00 AM EDT Office Visit [facility] [address] [place] [address] [address] [place] [phone] Alonso Bae MD [address] [place] [address] [address] [place] [address] 07/17/2026 2:00 PM EDT Office Visit [facility] - Internal Medicine [address] [place] [phone] Ilya Gusman MD [address] [place] [phone] 07/19/2026 11:40 AM EDT Office Visit [facility] [address] [place] [address] Yesi Perez MD [address] [place] [address] documented as of this encounter Visit Diagnoses [...] documented as of this encounter Care Teams Frame Stripper Relationship Specialty Start Date End Date Ilya Gusman MD [address] [place] [phone] PCP - General 05/14/17 [facility] 09/01/25 documented as of this encounter
--- OUTSIDE RECORDS SUMMARY | 2025-09-23 20:52 | XMS_ITS | Encounter Summary ---
Author Organization [facility] ystem Address [address] [place] [address] Phone Care Team Providers Care Foxing Painter Name Role Phone Ilya Gusman MD Primary Care Provider [phone] Encounter Details Date Type Department Care Team (Late st Contact Info) Description 08/22/2020 Orders Only [facility] - Health Information Department [address] [place] [address] Scan, No Provider Available [address] [facility] [place] [address] Social History Tobacco Use Types Packs/Day Years [...] have Coronavirus / COVID-19? No / Unsure 08/25/2020 8:37 AM EDT documented as of this encounter Plan of Treatment Upcoming Encounters Date Type Department Care Team (Late st Contact Info) Description 10/06/2025 10:45 AM EST Office Visit [facility] - Internal Medicine [address] [place] [phone] Ilya Gusman MD [address] [place] [phone] Christophe Dailey MD [address] [place] [phone] 01/18/2026 1:00 PM EST Office Visit [facility] [address] [place] [address] Porsha Marsh, AGRICULTURAL AND FORESTRY SUPERVISOR [address] [place] [address] 02/22/2026 11:00 AM EDT Office Visit [facility] [address] [place] [address] [address] [place] [phone] Alonso Bae MD [address] [place] [address] [address] [place] [address] 07/17/2026 2:00 PM EDT Office Visit [facility] - Internal Medicine [address] [place] [phone] Ilya Gusman MD [address] [place] [phone] 07/19/2026 11:40 AM EDT Office Visit [facility] [address] [place] [address] Yesi Perez MD [address] [place] [address] documented as of this encounter Procedures Procedure Name Priority Date/Time Associated Diagnosis Comments TRANSTHORACIC ECHO (TTE) COMPLETE Routine 08/15/2020 documented in this encounter Results * Transthoracic Echo (TTE) (08/15/2020) us No Provider Available Scan CV ECHO PROCEDURES Ed ited Result - Final documented in this encounter Visit Diagnoses Not [...] documented as of this encounter Care Teams Foxing Painter Relationship Specialty Start Date End Date Ilya Gusman MD [address] [place] [phone] PCP - General 05/14/17 [facility] 09/01/25 documented as of this encounter
--- OUTSIDE RECORDS SUMMARY | 2025-09-23 20:52 | XMS_ITS | Encounter Summary ---
Author Organization [facility]stem Address [address] [place] [address] Phone Care Team Providers Care Industrial Maintenance Instructor Name Role Phone Ilya Gusman MD Primary Care Provider [phone] Encounter Details Date Type Department Care Team ([facility] Contact Info) Description 11/18/2023 Orders Only [facility] - Health Information Department [address] [place] [address] Scan, No Provider Available [address] [place] [address] [address] [id number] Social History Tobacco Use Types Packs/Day Years [...] Upcoming Encounters Date Type Department Care Team ([facility] Contact Info) Description 10/06/2025 10:45 AM EST Office Visit [facility] - Internal Medicine [address] [place] [phone] Ilya Gusman MD [address] [place] [phone] Christophe Dailey MD [address] [place] [phone] 01/18/2026 1:00 PM EST Office Visit [facility] [address] [place] [address] Porsha Marsh, SALES AND MARKETING REPRESENTATIVE [address] [place] [address] 02/22/2026 11:00 AM EDT Office Visit [facility] [address] [place] [address] [address] [place] [phone] Alonso Bae MD [address] [place] [address] [address] [place] [address] 07/17/2026 2:00 PM EDT Office Visit [facility] - Internal Medicine [address] [place] [phone] Ilya Gusman MD [address] [place] [phone] 07/19/2026 11:40 AM EDT Office Visit [facility] [address] [place] [address] Yesi Perez MD [address] [place] [address] documented as of this encounter Procedures Procedure Name Priority Date/Time Associated Diagnosis Comments DIABETES EYE EXAM Routine 11/12/2023 documented in this encounter Results * Diabetes Eye Exam (11/12/2023) us No Provider Available Scan HEALTH MAINTENANCE Fi nal Result documented in this encounter [...] documented as of this encounter Care Teams Industrial Maintenance Instructor Relationship Specialty Start Date End Date Ilya Gusman MD [address] [place] [phone] PCP - General 05/14/17 [facility] 09/01/25 documented as of this encounter
--- OUTSIDE RECORDS SUMMARY | 2025-09-23 20:52 | XMS_ITS | Encounter Summary ---
[facility] Address [address] [place] [address] Phone Care Team Providers Care Solid Waste Collection Worker Name Role Phone Ilya Gusman MD Primary Care Provider [phone] Encounter Details Date Type Department Care Team (Late Contact Info) Description 07/14/2017 Scanned Document [facility] - Internal Medicine [address] [place] [phone] Ilya Gusman MD [address] [place] [phone] <No scans attached> Social History Tobacco Use [...] Upcoming Encounters Date Type Department Care Team ([facility] Contact Info) Description 10/06/2025 10:45 AM EST Office Visit [facility] - Internal Medicine [address] [place] [phone] Ilya Gusman MD [address] [place] [phone] Christophe Dailey MD [address] [place] [address] [phone] 01/18/2026 1:00 PM EST Office Visit [facility] [address] [place] [address] Porsha Marsh, SPORTSPERSONS [address] [place] [address] 02/22/2026 11:00 AM EDT Office Visit [facility] [address] [place] [address] [address] [place] [phone] Alonso Bae MD [address] [place] [address] [address] [place] [address] 07/17/2026 2:00 PM EDT Office Visit [facility] - Internal Medicine [address] [place] [phone] Ilya Gusman MD [address] [place] [phone] 07/19/2026 11:40 AM EDT Office Visit [facility] [address] [place] [address] Yesi Perez MD [address] [place] [address] documented as of this encounter Visit Diagnoses Not on filedocumented in this encounter Additional Health Concerns Infection Onset Date Last Indicated Resolved Time Covid Possible 08/21/2021 08/21/2021 08/21/2021 10 :22 PM EDT Covid Possible 05/24/2022 05/24/202205/2405/24/2022 4: 21 PM EDT C difficile Rule-Out [...] documented as of this encounter Care Teams Solid Waste Collection Worker Relationship Specialty Start Date End Date Ilya Gusman MD [address] [place] [phone] PCP - General 05/14/17 [facility] 09/01/25 documented as of this encounter
--- OUTSIDE RECORDS SUMMARY | 2025-09-23 20:52 | XMS_ITS | Encounter Summary ---
[facility] Address [address] [place] [address] Phone Care Team Providers Care Aircraft Engine Specialist Name Role Phone Ilya Gusman MD Primary Care Provider [phone] Encounter Details Date Type Department Care Team (Late Contact Info) Description 06/12/2017 Scanned Document [facility] [place] [phone] Alejandro Lion MD [facility] at [address] [place] [address] <No scans attached> Social History Tobacco Use [...] 10:45 AM EST Office Visit [facility] - Internal Medicine [address] [place] [phone] Ilya Gusman MD [address] [place] [phone] Christophe Dailey MD [address] [place] [phone] 01/18/2026 1:00 PM EST Office Visit [facility] [address] [place] [address] Porsha Marsh, RFID ENGINEER [address] [place] [address] 02/22/2026 11:00 AM EDT Office Visit [facility] [address] [place] [address] [place] [phone] Alonso Bae MD [address] [place] [address] 07/17/2026 2:00 PM EDT Office Visit [facility] - Internal Medicine [address] [place] [phone] Ilya Gusman MD [address] [place] [phone] 07/19/2026 11:40 AM EDT Office Visit [facility] [address] [place] [address] Yesi Perez MD [address] [place] [address] documented as of this encounter Visit Diagnoses [...] documented as of this encounter Care Teams Aircraft Engine Specialist Relationship Specialty Start Date End Date Ilya Gusmna MD [address] [place] [phone] PCP - General 05/14/17 [facility] 09/01/25 documented as of this encounter
--- OUTSIDE RECORDS SUMMARY | 2025-09-23 20:52 | XMS_ITS | Encounter Summary ---
[facility] Address [address] [place] [address] Phone Care Team Providers Care Manager Cargo Name Role Phone Ilya Gusman MD Primary Care Provider [phone] Encounter Details Date Type Department Care Team (Late st Contact Info) Description 05/16/2017 Scanned Document [facility] - Health Information Department [address] [place] [address] Scan, No Provider Available [address] [place] [address] [place] [address] <No scans attached> Social History Tobacco Use Types Packs/Day Years Used Date Smoking Tobacco: Never Assessed Sex and Gender Information Value Date Recorded Sex Assigned at Not on file Legal Sex Male 9:28 AM EDT Gender Identity Not on file Sexual Orientation Not on file documented as of this encounter Plan of Treatment Upcoming Encounters Date Type Department Care Team (Late Contact Info) Description 10/06/2025 10:45 AM EST Office Visit [facility] - Internal Medicine [address] [place] [phone] Ilya Gusman MD [address] [place] [address] [phone] Christophe Dailey MD [address] [place] [phone] 01/18/2026 1:00 PM EST Office Visit [facility] [address] [place] [address] 1 [place] [address] Porsha Marsh, ASSISTANT ASSOCIATE PROFESSOR [address] [place] [address] 02/22/2026 11:00 AM EDT Office Visit [facility] [address] [place] [address] [address] [place] [phone] Alonso Bae MD [address] [place] [address] [address] [place] [address] 07/17/2026 2:00 PM EDT Office Visit [facility] - Internal Medicine [address] [place] [phone] Ilya Gusman MD [address] [place] [phone] 07/19/2026 11:40 AM EDT Office Visit [facility] [address] [place] [address] Yesi Perez MD [address] [place] [phone] documented as of this encounter Visit Diagnoses [...] documented as of this encounter Care Teams Manager Cargo Relationship Specialty Start Date End Date Ilya Gusman MD [address] [place] [phone] PCP - General 05/14/17 [facility] 09/01/25 documented as of this encounter
--- OUTSIDE RECORDS SUMMARY | 2025-09-23 20:52 | XMS_ITS | Encounter Summary ---
Author Organization [facility] Address [address] [place] [address] Phone Care Team Providers Care Porter Used Car Lot Name Role Phone Ilya Gusman MD Primary Care Provider [phone] Encounter Details Date Type Department Care Team ([facility] Contact Info) Description 12/19/2023 Orders Only [facility] - Health Information Department [address] [place] [address] Scan, No Provider Available [address] [place] [address] [address]. Eleazar [place] [phone] Social History Tobacco Use Types Packs/Day Years [...] Upcoming Encounters Date Type Department Care Team ([facility] Contact Info) Description 10/06/2025 10:45 AM EST Office Visit [facility] - Internal Medicine [address] [place] [phone] Ilya Gusman MD [address] [place] [phone] Christophe Dailey MD [address] [place] [phone] 01/18/2026 1:00 PM EST Office Visit [address] [address] Porsha Marsh, OFFICE ADMINISTRATION INSTRUCTOR [address] [place] [address] 02/22/2026 11:00 AM EDT Office Visit [facility] [address] [place] [address] [address] [place] [phone] Alonso Bae MD [address] [place] [address] [address] [place] [address] 07/17/2026 2:00 PM EDT Office Visit [facility] - Internal Medicine [address] [place] [phone] Ilya Gusmna MD [address] [place] [phone] 07/19/2026 11:40 AM EDT Office Visit [address] [address] Yesi Perez MD [address] [place] [address] documented as of this encounter Procedures Procedure Name Priority Date/Time Associated Diagnosis Comments COLONOSCOPY Routine 12/03/2023 documented in this encounter Results * Hm Colonoscopy (12/03/2023) us No Provider Available Scan HEALTH MAINTENANCE Fi nal Result documented in this encounter Visit Diagnoses Not on filedocumented in this encounter Additional Health Concerns Infection Onset Date Last Indicated Resolved Time C difficile Rule-Out 12/20/2023 12/21/2023 024 1:20 PM EST C difficile Rule-Out 11/01/2024 11/02/2024 024 9:43 AM EST Assessment Noted Time PHQ-9 Depression Total Score: 06/05/20 20 9:52 AM EDT documented as of this encounter Care Teams Porter Used Car Lot Relationship Specialty Start Date End Date Ilya Gusman MD [address] [place] [phone] PCP - General 05/14/17 [facility] 09/01/25 documented as of this encounter
--- OUTSIDE RECORDS SUMMARY | 2025-09-23 20:52 | XMS_ITS | Encounter Summary ---
Author Organization [facility] y[facility] Address [address] [place] [address] Phone Care Team Providers Care Vertical Roll Operator Name Role Phone Ilya Gusman MD Primary Care Provider [phone] Encounter Details Date Type Department Care Team (Late Contact Info) Description 08/27/2017 Procedure Pass [facility] - MR Imaging [address] [place] [address] Social History Tobacco Use Types [...] Upcoming Encounters Date Type Department Care Team ([facility] Contact Info) Description 10/06/2025 10:45 AM EST Office Visit [facility] - Internal Medicine [address] [place] [phone] Ilya Gusman MD [address] [place] [phone] Christophe Dailey MD [address] [place] [phone] 01/18/2026 1:00 PM EST Office Visit [facility] [address] [place] [address] 1 [place] [address] Porsha Marsh, SAUSAGE MIXER [address] [place] [address] 02/22/2026 11:00 AM EDT Office Visit [facility] [address] [place] [address] [address] [place] [phone] Alonso Bae MD [address] [place] [address] [address] [place] [address] 07/17/2026 2:00 PM EDT Office Visit [facility] - Internal Medicine [address] [place] [phone] Ilya Gusman MD [address] [place] [phone] 07/19/2026 11:40 AM EDT Office Visit [facility] [address] [place] [address] Yesi Perez MD [address] [place] [address] documented as of this encounter Visit Diagnoses [...] documented as of this encounter Care Teams Vertical Roll Operator Relationship Specialty Start Date End Date Ilya Gusman MD [address] [place] [phone] PCP - General 05/14/17 [facility] 09/01/25 documented as of this encounter
--- OUTSIDE RECORDS SUMMARY | 2025-09-23 20:52 | XMS_ITS | Encounter Summary ---
[facility] Address [address] [place] [address] Phone Care Team Providers Care Wool Brusher Name Role Phone Ilya Gusman MD Primary Care Provider [phone] Reason for Visit * Reason Onset Date Comments Med Refill 08/15/2020 Encounter Details Date Type Department Care Team (Late st Contact Info) Description 08/15/2020 Refill [facility] - Internal Medicine [address] [place] [phone] Christophe Dailey MD [address] [place] [phone] Med Refill Social History Tobacco Use [...] have Coronavirus / COVID-19? No / Unsure 08/17/2020 8:43 AM EDT documented as of this encounter Miscellaneous Notes * Telephone Encounter - Mily Lion LPN - 08/16/2020 2:24 PM EDT Pt informed and is agreeable to plan. Pt scheduled the first available appt, but unfortunately it is not for 2 weeks. Please advise if ok to keep that appt or did you want to accommodate an appt sooner. Future Appointments Date Time Provider Department Center 08/21/2020 11:00 AM Alejandro Lion MD [facility] 09/06/2020 2:30 PM Christophe Dailey MD [facility] 10/25/2020 12:00 PM Ilya Gusman MD [facility] Nursing: pt doesn't need to be called back unless an earlier appt is necessary. Pt will plan on keeping the currently scheduled appt unless he hears otherwise. Aziza Soto LPN [facility] * Telephone Encounter - Suly Walker LPN - 08/16/2020 9:31 AM EDT Called pt, left message for pt to call back MIRIAN DicksonGIM * Telephone Encounter - Christophe Dailey MD - 08/16/2020 8:51 AM EDT I will refill the medication now for a week but I do recommend he see me to discuss how we move forward. * Telephone Encounter - Kristina Schneider T - 08/16/2020 7:59 AM EDT Refill Oxycodone 15mg #28 Pharmacy: [facility] DATE OF LAST REFILL? 07/11/20 FREQUENCY OF REFILLS? 28 days DATE REFILL IS DUE? 08/11/20 IS THIS AN EARLY REFILL? No CONTROLLED SUBSTANCE AGREEMENT ON FILE? Yes Last UDS: 06/05/20 DATE OF LAST OFFICE VISIT: 07/11/20 DATE OF NEXT OFFICE VISIT: Future Appointments Date Time Provider Department Center 08/21/2020 11:00 AM Alejandro Lion MD [facility] 10/25/2020 12:00 PM Ilya Gusman MD [facility] COPY HOLDER reviewed on 08/16/2020 by Ian BARNETT and no red flags were noted Kristina Schneider editor in chief Refill Team [employer] documented in this encounter Plan of Treatment Upcoming Encounters Date Type Department Care Team (Late st Contact Info) Description 10/06/2025 10:45 AM EST Office Visit [facility] - Internal Medicine [address] [place] [phone] Ilya Gusman MD [address] [place] [phone] Christophe Dailey MD [address] [place] [address] [phone] 01/18/2026 1:00 PM EST Office Visit [facility] [address] [facility] [facility] 1 [place] [address] Porsha Marsh, ADULT SCHOOL TEACHER 70 [place] [address] 02/22/2026 11:00 AM EDT Office Visit [facility] [address] [place] [address] [address] [place] [phone] Alonso Bae MD [facility] [place] [address] [place] [address] 07/17/2026 2:00 PM EDT Office Visit [facility] - Internal Medicine [address] [place] [phone] Ilya Gusman MD [address] [place] [phone] 07/19/2026 11:40 AM EDT Office Visit [facility] [address] [address] Yesi Perez MD 70 [place] [address] documented as of this encounter Visit Diagnoses [...] documented as of this encounter Care Teams Wool Brusher Relationship Specialty Start Date End Date Ilya Gusman MD [address] [place] [phone] PCP - General 05/14/17 [facility] 09/01/25 documented as of this encounter
--- OUTSIDE RECORDS SUMMARY | 2025-09-23 20:52 | XMS_ITS | Encounter Summary ---
[facility] Organization [facility] Address [address] [place] [address] Phone Care Team Providers Care Alumnae Secretary Name Role Phone Ilya Gusman MD Primary Care Provider [phone] Encounter Details Date Type Department Care Team (Late st Contact Info) Description 06/05/2017 Scanned Document [facility] - Health Information Department [address] [place] [phone] Scan, No Provider Available [address] [place] [address] [place] [address] <No scans attached> Social History Tobacco Use [...] Description 10/06/2025 10:45 AM EST Office Visit [facility] - Internal Medicine [address] [place] [phone] Ilya Gusman MD [address] [place] [phone] Christophe Dailey MD [address] [place] [phone] 01/18/2026 1:00 PM EST Office Visit [facility] 70 [facility] 1 [place] [address] Porsha Marsh, RAILROAD POLICE 70 [place] [address] 02/22/2026 11:00 AM EDT Office Visit [facility] [address] [facility] [address] [place] [phone] Alonso Bae MD [address] [place] [address] [address] [place] [address] 07/17/2026 2:00 PM EDT Office Visit [facility] - Internal Medicine [address] [place] [phone] Ilya Gusman MD [address] [place] [phone] 07/19/2026 11:40 AM EDT Office Visit [facility] [address] [place] [address] Yesi Perez MD [address] [place] [address] documented as of this encounter Visit Diagnoses [...] documented as of this encounter Care Teams Alumnae Secretary Relationship Specialty Start Date End Date Ilya Gusman MD [address] [place] [phone] PCP - General 05/14/17 [facility] 09/01/25 documented as of this encounter
--- OUTSIDE RECORDS SUMMARY | 2025-09-23 20:52 | XMS_ITS | Encounter Summary ---
Author Organization [facility] Address [address] [place] [address] Phone Care Team Providers Care Agricultural Equipment Sales Engineer Name Role Phone Ilya Gusman MD Primary Care Provider [phone] Reason for Visit * Reason Onset Date Comments Med Refill 03/15/2021 Encounter Details Date Type Department Care Team (Late st Contact Info) Description 03/15/2021 Refill [facility] - Internal Medicine [address] [place] [address] [phone] Ilya Gusman MD [address] [place] [phone] Med Refill Social History Tobacco Use [...] Description 10/06/2025 10:45 AM EST Office Visit [facility] - Internal Medicine [address] [place] [phone] Ilay Gusman MD [address] [place] [phone] Christophe Dailey MD [address] [place] [phone] 01/18/2026 1:00 PM EST Office Visit [facility] [address] [place] [address] Porsha Marsh, CARE TRAINER 70 [place] [address] 02/22/2026 11:00 AM EDT Office Visit [facility] [address] [place] [address] [address] [place] [phone] Alonso Bae MD [address] [place] [address] [address] [place] [address] 07/17/2026 2:00 PM EDT Office Visit [facility] - Internal Medicine [address] [place] [phone] Ilya Gusman MD [address] [place] [phone] 07/19/2026 11:40 AM EDT Office Visit [facility] [address] [address] Yesi Perez MD [address] [place] [address] documented as of this encounter Visit Diagnoses [...] documented as of this encounter Care Teams Agricultural Equipment Sales Engineer Relationship Specialty Start Date End Date Ilya Gusman MD [address] [place] [phone] PCP - General 05/14/17 [facility] 09/01/25 documented as of this encounter
--- OUTSIDE RECORDS SUMMARY | 2025-09-23 20:52 | XMS_ITS | Encounter Summary ---
Author Organization [facility] ystem Address [address] [place] [address] Phone Care Team Providers Care Oil Pipeline Dispatcher Name Role Phone Ilya Gusman MD Primary Care Provider [phone] Encounter Details Date Type Department Care Team (Late Contact Info) Description 10/30/2023 Scanned Document [facility] - Health Information Department [address] [place] [address] Scan, No Provider Available [address] [place] [address] [place] [address] <No scans attached> Social History Tobacco Use [...] Upcoming Encounters Date Type Department Care Team ([facility] Contact Info) Description 10/06/2025 10:45 AM EST Office Visit [facility] - Internal Medicine [address] [place] [phone] Ilya Gusman MD [address] [place] [phone] Christophe Dailey MD [address] [place] [phone] 01/18/2026 1:00 PM EST Office Visit [facility] [address] [place] [address] Porsha Marsh, C JAVA DEVELOPER [address] [place] [address] 02/22/2026 11:00 AM EDT Office Visit [facility] [address] [place] [address] [address] [place] [phone] Alonso Bae MD [address] [place] [address] [address] [place] [address] 07/17/2026 2:00 PM EDT Office Visit [facility] - Internal Medicine [address] [place] [phone] Ilya Gusman MD [address] [place] [phone] 07/19/2026 11:40 AM EDT Office Visit [facility] [address] [place] [address] Yesi Perez MD [address] [place] [address] documented as of this encounter Visit Diagnoses [...] as of this encounter Care Teams Oil Pipeline Dispatcher Relationship Specialty Start Date End Date Ilya Gusman MD [address] [place] [phone] PCP - General 05/14/17 [facility] 09/01/25 documented as of this encounter
--- OUTSIDE RECORDS SUMMARY | 2025-09-23 20:52 | XMS_ITS | Encounter Summary ---
[facility] Organization [facility] Address [address] [place] [address] Phone Care Team Providers Care Human Resources Administrator Name Role Phone Ilya Gusman MD Primary Care Provider [phone] Encounter Details Date Type Department Care Team (Late st Contact Info) Description 07/07/2017 Orders Only [address] [phone] Social History Tobacco Use Types Packs/Day Years [...] Description 10/06/2025 10:45 AM EST Office Visit [facility] - Internal Medicine [address] [place] [address] [phone] Ilya Gusman MD [address] [place] [phone] Christophe Dailey MD [address] [place] [phone] 01/18/2026 1:00 PM EST Office Visit [facility] 70 [facility] 1 [place] [address] Porsha Marsh, CORRECTION OFFICER [place] JAIL 70 [place] [address] 02/22/2026 11:00 AM EDT Office Visit [facility] [address] [place] [address] [address] [place] [phone] Alonso Bae MD [address] [place] [address] [address] [place] [address] 07/17/2026 2:00 PM EDT Office Visit [facility] - Internal Medicine [address] [place] [phone] Ilya Gusman MD [address] [place] [phone] 07/19/2026 11:40 AM EDT Office Visit [facility] [address] [place] [address] Yesi Perez MD [address] [place] [address] documented as of this encounter Visit Diagnoses [...] documented as of this encounter Care Teams Human Resources Administrator Relationship Specialty Start Date End Date Ilya Gusman MD [address] [place] [phone] PCP - General 05/14/17 [facility] 09/01/25 documented as of this encounter
--- OUTSIDE RECORDS SUMMARY | 2025-09-23 20:52 | XMS_ITS | Encounter Summary ---
Author Organization [facility] Address [address] [place] [address] Phone Care Team Providers Care Enrollment Management Manager Name Role Phone Ilya Gusman MD Primary Care Provider [phone] Encounter Details Date Type Department Care Team (Late Contact Info) Description 07/04/2017 Scanned Document [facility] [place] [phone] Alejandro Lion MD [facility] at [address] [place] [address] <No scans attached> Social History Tobacco Use [...] 10:45 AM EST Office Visit [facility] - Internal Medicine [address] [place] [phone] Ilya Gusman MD [address] [place] [phone] Christophe Dailey MD [address] [place] [phone] 01/18/2026 1:00 PM EST Office Visit [facility] [address] [place] [address] Porsha Marsh, NAUMKEAG OPERATOR [address] [place] [address] 02/22/2026 11:00 AM EDT Office Visit [facility] [address] [place] [address] [address] [place] [phone] Alonso Bae MD [address] [place] [address] [address] [place] [address] 07/17/2026 2:00 PM EDT Office Visit [facility] - Internal Medicine [address] [place] [phone] Ilya Gusman MD [address] [place] [phone] 07/19/2026 11:40 AM EDT Office Visit [facility] [address] [place] [address] Yesi Perez MD [address] [place] [address] documented as of this encounter Visit Diagnoses [...] documented as of this encounter Care Teams Enrollment Management Manager Relationship Specialty Start Date End Date Ilya Gusman MD [address] [place] [phone] PCP - General 05/14/17 [facility] 09/01/25 documented as of this encounter
--- OUTSIDE RECORDS SUMMARY | 2025-09-23 20:52 | XMS_ITS | Encounter Summary ---
Author Organization [facility] ystem Address [address] [place] [address] Phone Care Team Providers Care Engine Tester Name Role Phone Ilya Gusman MD Primary Care Provider Encounter Details Date Type Department Care Team (Late st Contact Info) Description 10/11/2020 Orders Only [facility] - Health Information Department [address] [place] [address] Scan, No Provider Available [address] [facility] [place] [address] Social History Tobacco Use Types Packs/Day Years [...] 10:45 AM EST Office Visit [facility] - Internal Medicine [address] [place] [phone] Ilya Gusman MD [address] [place] [phone] Christophe Dailey MD [address] [place] [phone] 01/18/2026 1:00 PM EST Office Visit [facility] [address] [place] [address] Porsha Marsh, CHALK CUTTER [address] [place] [address] 02/22/2026 11:00 AM EDT Office Visit [facility] [address] [place] [address] [address] [place] [phone] Alonso Bae MD [address] [place] [address] [address] [place] [address] 07/17/2026 2:00 PM EDT Office Visit [facility] - Internal Medicine [address] [place] [phone] Ilya Gusman MD [address] [place] [phone] 07/19/2026 11:40 AM EDT Office Visit [facility] [address] [place] [address] Yesi Perez MD [address] [place] [address] documented as of this encounter Procedures Procedure Name Priority Date/Time Associated Diagnosis Comments ECG 12-LEAD Today 10/02/2020 ECG 12-LEAD Today 09/28/2020 documented in this encounter Results * ECG (10/02/2020) us No Provider Available Scan ECG ORDERABLES Final Result * ECG (09/28/2020) us No Provider Available Scan ECG ORDERABLES [...] documented as of this encounter Care Teams Engine Tester Relationship Specialty Start Date End Date Ilya Gusman MD [address] [place] [phone] (Skuy) PCP - General 05/14/17 [facility] 09/01/25 documented as of this encounter
--- OUTSIDE RECORDS SUMMARY | 2025-09-23 20:52 | XMS_ITS | Encounter Summary ---
[facility] Address [address] [place] [address] Phone Care Team Providers Care Acrobatic Dancer Name Role Phone Ilya Gusman MD Primary Care Provider [phone] Reason for Referral * Consultation (1 Month) - Closed Specialty Diagnoses / Procedures Referred By London blankenship Referred To Contact Orthopedics Diagnoses Left shoulder pain, unspecified chronicity Ilya Gusman MD [address] [place] [phone] Phone: tel: fax: Tc Story MD [address] [place] [address] [place] [address] Phone: tel: fax: Referral ID Status Reason Start Date Expiration Date V isits Requested Visits Authorized [id number] Closed Specialty Services Required 06/05/2017 06/05/2018 6 6 Encounter Details Date Type Department Care Team ([facility] st Contact Info) Description 06/05/2017 Orders Only [facility] - Internal Medicine [address] [place] [phone] Ilya Gusman MD [address] [place] [phone] Left shoulder pain, unspecified chronicity (Primary Dx) Social History Tobacco Use Types [...] 10/06/2025 10:45 AM EST Office Visit [facility] - Internal Medicine [address] [place] [address] [phone] Ilya Gusman MD [address] [place] [phone] Christophe Dailey MD [address] [place] [phone] 01/18/2026 1:00 PM EST Office Visit [facility] [address] [facility] 1 [place] [address] Porsha Marsh, MULTIMEDIA AUTHOR 70 [place] [address] 02/22/2026 11:00 AM EDT Office Visit [facility] [address] [place] [phone] Alonso Bae MD [facility] [address] [place] [address] 07/17/2026 2:00 PM EDT Office Visit [facility] - Internal Medicine [address] [place] [phone] Ilya Gusman MD [address] [place] [phone] 07/19/2026 11:40 AM EDT Office Visit [facility] [address] [address] Yesi Perez MD 70 [place] [address] Scheduled Referrals Name Type Priority Associated Diagnoses Orde r Schedule Referral Orthopedic-[facility] Outpatient Referral Routine Left shoulder pain, unspecified chronicity 1 Occurrences starting 06/05/2017 until 12/06/2017 documented as of this encounter Visit Diagnoses Diagnosis Left shoulder pain, unspecified chronicity- Primary documented in this encounter Additional Health Concerns [...] documented as of this encounter Care Teams Acrobatic Dancer Relationship Specialty Start Date End Date Ilya Gusman MD [address] [place] [phone] PCP - General 05/14/17 [facility] 09/01/25 documented as of this encounter
--- OUTSIDE RECORDS SUMMARY | 2025-09-23 20:52 | XMS_ITS | Encounter Summary ---
[facility] Address [address] [place] [address] Phone Care Team Providers Care Residential Appraiser Name Role Phone Ilya Gusman MD Primary Care Provider [phone] Reason for Visit * Reason Comments Med Refill Encounter Details Date Type Department Care Team (Late Contact Info) Description 07/08/2017 Refill [facility] - Internal Medicine [address] [place] [phone] Ilya Gusman MD [address] [place] [phone] Med Refill Social History Tobacco Use [...] encounter Miscellaneous Notes * Telephone Encounter - Sarahy Henderson PhT - 07/09/2017 11:36 AM EDT Aungvedilol, 01/29/17 qty 90 w/0 refills. Lipitor, 02/21/17 qty 90 w/3 refills. Last ov 05/05/17 rxs are slightly overdue, meds pending for PCP review. Lab Results Component Value Date GLUCOSE 157 (H) 06/27/2017 CALCIUM 8.6 06/27/2017 NA 137 06/27/2017 K 3.6 06/27/2017 CO2 23 (L) 06/27/2017 CL 103 06/27/2017 BUN 7 06/27/2017 CREAT 0.7 06/27/2017 Lab Results Component Value Date WBC 10.3 06/27/2017 HGB 10.8 (L) 06/27/2017 HCT 31.0 (L) 06/27/2017 PLT 163 06/27/2017 CHOL 191 01/31/2017 TRIG 135 09/19/2016 HDL 56 01/31/2017 LDLDIRECT 116.0 01/31/2017 ALT 31 06/27/2017 AST 42 (H) 06/27/2017 NA 137 06/27/2017 K 3.6 06/27/2017 CL 103 06/27/2017 CREATININE 1.0 01/06/2017 BUN 7 06/27/2017 CO2 23 (L) 06/27/2017 PSA 5.32 (H) 09/19/2016 INR 1.4 06/26/2017 HGBA1C 5.6 06/18/2017 MICROALBUR <5.0 01/31/2017 Ian Pierson Refill Team, Loft documented in this encounter Plan of Treatment Upcoming Encounters Date Type Department Care Team (Late st Contact Info) Description 10/06/2025 10:45 AM EST Office Visit [facility] - Internal Medicine [address] [place] [phone] Ilya Gusman MD [address] [place] [phone] Christophe Dailey MD [address] [place] [phone] 01/18/2026 1:00 PM EST Office Visit [facility] [address] [place] [phone] Porsha Marsh CNP 70 [place] [address] 02/22/2026 11:00 AM EDT Office Visit [facility] [address] [place] [address] [address] [place] [phone] Alonso Bae MD [address] [place] [address] [address] [place] [address] 07/17/2026 2:00 PM EDT Office Visit [facility] - Internal Medicine [address] [place] [phone] Ilya Gusman MD [address] [place] [address] [phone] 07/19/2026 11:40 AM EDT Office Visit [facility] [address] [place] [address] Yesi Perez MD [address] [place] [address] documented as of this encounter Visit Diagnoses [...] as of this encounter Care Teams Residential Appraiser Relationship Specialty Start Date End Date Ilya Gusman MD [address] [place] [address] [phone] PCP - General 05/14/17 [facility] 09/01/25 documented as of this encounter
--- OUTSIDE RECORDS SUMMARY | 2025-09-23 20:52 | XMS_ITS | Encounter Summary ---
[facility] Address [address] [place] [address] Phone Care Team Providers Care Machine Repairman Name Role Phone Ilya Gusman MD Primary Care Provider [phone] Reason for Referral * Consultation (1 Month) - Closed Specialty Diagnoses / Procedures Referred By London blankenship Referred To Contact Neurology Diagnoses Ilya Toussaint MD [address] [place] [phone] Phone: tel: fax: Hector Noyola [address] [place] [address] Phone: tel: fax: Referral ID Status Reason Start Date Expiration Date V isits Requested Visits Authorized [id number] Closed Specialty Services Required 07/14/2017 07/15/2018 6 6 * Surgical (1 Month) - Closed Specialty Diagnoses / Procedures Referred By London blankenship Referred To Contact Neurosurgery Diagnoses Ilya Toussaint MD [address] [place] [phone] Phone: tel: fax: Alejandro Lion MD [facility] [address] [place] [address] Phone: tel: fax: Referral ID Status Reason Start Date Expiration Date V isits Requested Visits Authorized [id number] Closed Specialty Services Required 07/10/2017 07/11/2018 6 6 Encounter Details Date Type Department Care Team (Late st Contact Info) Description 07/10/2017 Orders Only [address] [phone] Ilya Gusman MD [address] [place] [address] [phone] Tremor (Primary Dx) Social History Tobacco Use [...] Description 10/06/2025 10:45 AM EST Office Visit [facility] - Internal Medicine [address] [place] [phone] Ilya Gusman MD [address] [place] [phone] Christophe Dailey MD [address] [place] [phone] 01/18/2026 1:00 PM EST Office Visit [facility] [address] 1 [place] [address] Porsha Marsh, CUTTING TABLE OPERATOR FIRST 70 [place] [address] 02/22/2026 11:00 AM EDT Office Visit [facility] [address] [place] [phone] Alonso Bae MD [address] [place] [address] 07/17/2026 2:00 PM EDT Office Visit [facility] - Internal Medicine 143 [place] [phone] Ilya Gusman MD 143 [place] [phone] 07/19/2026 11:40 AM EDT Office Visit [facility] [address] [facility] 1 [place] [address] Yesi Perez MD 70 [place] [address] Scheduled Referrals Name Type Priority Associated Diagnoses Order Schedule Referral Neurosurgery-[facility] Outpatient Referral Routine Tremor 1 Occurrences starting 07/10/2017 until 01/10/2018 [facility]erral [facility] Outpatient Referral Routine Tremor 1 Occurrences starting 07/14/2017 until 01/14/2018 documented as of this encounter Visit Diagnoses [...] documented as of this encounter Care Teams Machine Repairman Relationship Specialty Start Date End Date Ilya Gusman MD [address] [place] [phone] PCP - General 05/14/17 [facility] 09/01/25 documented as of this encounter
--- OUTSIDE RECORDS SUMMARY | 2025-09-23 20:52 | XMS_ITS | Encounter Summary ---
Author Organization [facility] Address [address] [place] [address] Phone Care Team Providers Care Mine Engineering Superintendent Name Role Phone Ilya Gusman MD Primary Care Provider [phone] Encounter Details Date Type Department Care Team (Late st Contact Info) Description 07/26/2020 Scanned Document [facility] - Health Information Department [address] [place] [address] Scan, No Provider Available [address] [facility] [place] [address] <No scans attached> Social History Tobacco Use [...] 10/06/2025 10:45 AM EST Office Visit [facility] - Internal Medicine [address] [place] [phone] Ilya Gusman MD [address] [place] [phone] Christophe Dailey MD [address] [place] [phone] 01/18/2026 1:00 PM EST [facility] [address] [place] [address] Porsha Marsh CNP [address] [place] [address] 02/22/2026 11:00 AM EDT Office Visit [facility] [address] [place] [address] [address] [place] [phone] Alonso Bae MD [address] [place] [address] [address] [place] [address] 07/17/2026 2:00 PM EDT Office Visit [facility] - Internal Medicine [address] [place] [phone] Ilya Gusman MD [address] [place] [phone] 07/19/2026 11:40 AM EDT Office [facility] [address] [place] [address] Yesi Perez MD [address] [place] [phone] documented as of this encounter Visit Diagnoses [...] documented as of this encounter Care Teams Mine Engineering Superintendent Relationship Specialty Start Date End Date Ilya Gusman MD [address] [place] [phone] PCP - General 05/14/17 [facility] 09/01/25 documented as of this encounter
--- OUTSIDE RECORDS SUMMARY | 2025-09-23 20:52 | XMS_ITS | Encounter Summary ---
[facility] Organization [facility] Address [address] [place] [address] Phone Care Team Providers Care Housekeeping Staff Name Role Phone Ilya Gusman MD Primary Care Provider [phone] Encounter Details Date Type Department Care Team (Late Contact Info) Description 09/16/2017 Scanned Document [facility] - Health Information Department [address] [place] [phone] Scan, No Provider Available [address] [place] [address] [place] [address] <No scans attached> Social History Tobacco Use [...] Upcoming Encounters Date Type Department Care Team ([facility] Contact Info) Description 10/06/2025 10:45 AM EST Office Visit [facility] - Internal Medicine [address] [place] [phone] Ilya Gusman MD [address] [place] [phone] Christophe Dailey MD [address] [place] [phone] 01/18/2026 1:00 PM EST Office Visit [facility] [address] [place] [phone] Porsha Marsh, RECEIVER STOCKER 70 [place] [address] 02/22/2026 11:00 AM EDT Office Visit [facility] [address] [place] [address] [address] [place] [phone] Alonso Bae MD [address] [place] [address] 2 [place] [address] 07/17/2026 2:00 PM EDT Office Visit [facility] - Internal Medicine [address] [place] [phone] Ilya Gusman MD [address] [place] [phone] 07/19/2026 11:40 AM EDT Office Visit [facility] [address] [place] [address] Yesi Perez MD [address] [place] [address] documented as of this encounter Visit Diagnoses [...] documented as of this encounter Care Teams Housekeeping Staff Relationship Specialty Start Date End Date Ilya Gusman MD [address] [place] [address] [phone] PCP - General 05/14/17 [facility] 09/01/25 documented as of this encounter
--- OUTSIDE RECORDS SUMMARY | 2025-09-23 20:52 | XMS_ITS | Encounter Summary ---
Author Organization [facility] Address [address] [place] [address] Phone Care Team Providers Care Wound Care Rn Name Role Phone Ilya Gusman MD Primary Care Provider [phone] Encounter Details Date Type Department Care Team ([facility] Contact Info) Description 08/27/2017 Orders Only [facility] - X-Ray Imaging 55 [place] [phone] Osmin Barnes MD 55 [place] [address] Social History Tobacco Use Types Packs/Day Years [...] Upcoming Encounters Date Type Department Care Team ([facility] Contact Info) Description 10/06/2025 10:45 AM EST Office Visit [facility] - Internal Medicine [address] [place] [phone] Ilya Gusman MD [address] [place] [phone] Christophe Dailey MD [address] [place] [address] [phone] 01/18/2026 1:00 PM EST Office Visit [facility] [address] [place] [address] Porsha Marsh, WIRER [address] [place] [address] 02/22/2026 11:00 AM EDT Office Visit [facility] [address] [place] [address] [address] [place] [phone] Alonso Bae MD [address] [place] [address] [address] [place] [address] 07/17/2026 2:00 PM EDT Office Visit [facility] - Internal Medicine [address] [place] [phone] Ilya Gusman MD [address] [place] [phone] 07/19/2026 11:40 AM EDT Office Visit [facility] [address] [place] [address] Yesi Perez MD [address] [place] [address] documented as of this encounter Visit Diagnoses [...] documented as of this encounter Care Teams Wound Care Rn Relationship Specialty Start Date End Date Ilya Gusman MD [address] [place] [phone] PCP - General 05/14/17 [facility] 09/01/25 documented as of this encounter
--- OUTSIDE RECORDS SUMMARY | 2025-09-23 20:52 | XMS_ITS | Encounter Summary ---
Author Organization [facility] Address [address] [place] [address] Phone Care Team Providers Care Archivist Military History Name Role Phone Ilya Gusman MD Primary Care Provider [phone] Encounter Details Date Type Department Care Team (Late st Contact Info) Description 04/02/2021 Scanned Document [facility] - Health Information Department [address] [place], [place] [phone] Scan, No Provider Available [address] [place] [address] <No scans attached> Social History Tobacco Use [...] have Coronavirus / COVID-19? No / Unsure 04/05/2021 8:38 AM EDT documented as of this encounter Plan of Treatment Upcoming Encounters Date Type Department Care Team (Late st Contact Info) Description 10/06/2025 10:45 AM EST Office Visit [facility] - Internal Medicine [address] [place] [phone] Ilya Gusman MD [address] [place] [phone] Christophe Dailey MD [address] [place] [phone] 01/18/2026 1:00 PM EST Office Visit [facility] [address] [place] [address] Porsha Marsh, ASSURANCE ENGINEER 70 [place] [address] 02/22/2026 11:00 AM EDT Office Visit [facility] [address] [place] [address] [address] [place] [phone] Alonso Bae MD [address] [place] [address] [address] [place] [address] 07/17/2026 2:00 PM EDT Office Visit [facility] - Internal Medicine [address] [place] [phone] Ilya Gusman MD [address] [place] [phone] 07/19/2026 11:40 AM EDT Office Visit [facility] [address] [place] [address] Yesi Perez MD 70 [place] [address] documented as of this encounter Visit Diagnoses [...] documented as of this encounter Care Teams Archivist Military History Relationship Specialty Start Date End Date Ilya Gusman MD [address] [place] [phone] PCP - General 05/14/17 [facility] 09/01/25 documented as of this encounter
--- OUTSIDE RECORDS SUMMARY | 2025-09-23 20:52 | XMS_ITS | Encounter Summary ---
[facility] Address [address] [place] [address] Phone Care Team Providers Care Commercial Helicopter Pilot Name Role Phone Ilya Gusman MD Primary Care Provider [phone] Encounter Details Date Type Department Care Team (Late Contact Info) Description 08/22/2017 Scanned Document [facility] - Health Information Department [address] [place] [phone] Scan, No Provider Available [address] [place] [address] [place] [address] <No scans attached> Social History Tobacco Use [...] [facility] [address] [place] [phone] Ilya Gusman MD [address] [place] [phone] Christophe Dailey MD [address] [place] [phone] 01/18/2026 1:00 PM EST Office Visit [facility] [address] [place] [address] Porsha Marsh, WAYS OPERATOR 70 [place] [address] 02/22/2026 11:00 AM EDT Office Visit [facility] [address] [place] [address] [address] [place] [phone] Alonso Bae MD [address] [place] [address] 2 [place] [address] 07/17/2026 2:00 PM EDT Office Visit [facility] - Internal Medicine [address] [place] [phone] Ilya Gusman MD [address] [place] [phone] 07/19/2026 11:40 AM EDT Office Visit [facility] [address] [place] [address] Yesi Perez MD [address] [place] [address] documented as of this encounter Visit Diagnoses [...] documented as of this encounter Care Teams Commercial Helicopter Pilot Relationship Specialty Start Date End Date Ilya Gusman MD [address] [place] [address] [phone] PCP - General 05/14/17 [facility] 09/01/25 documented as of this encounter
--- OUTSIDE RECORDS SUMMARY | 2025-09-23 20:52 | XMS_ITS | Encounter Summary ---
Author Organization [facility] Address [address] [place] [address] Phone Care Team Providers Care Vein Access Technician Name Role Phone Ilya Gusman MD Primary Care Provider [phone] Encounter Details Date Type Department Care Team (Late st Contact Info) Description 05/30/2017 Scanned Document [facility] - Health Information Department [address] [place] [phone] Scan, No Provider Available [address] [place] [address] [place] [address] <No scans attached> Social History Tobacco Use [...] 10:45 AM EST Office Visit [facility] - Internal Medicine [address] [place] [phone] Ilya Gusman MD [address] [place] [phone] Christophe Dailey MD [address] [place] [phone] 01/18/2026 1:00 PM EST Office Visit [facility] 70 [facility] 1 [place] [address] Porsha Marsh, STOCKHOLDER 70 [place] [address] 02/22/2026 11:00 AM EDT Office Visit [facility] [address] [facility] [address] [place] [phone] Alonso Bae MD [address] [place] [address] [address] [place] [address] 07/17/2026 2:00 PM EDT Office Visit [facility] - Internal Medicine [address] [place] [phone] Ilya Gusman MD [address] [place] [phone] 07/19/2026 11:40 AM EDT Office Visit [facility] [address] [place] [address] Yesi Perez MD [address] [place] [address] documented as of this encounter Visit Diagnoses [...] documented as of this encounter Care Teams Vein Access Technician Relationship Specialty Start Date End Date Ilya Gusman MD [address] [place] [phone] PCP - General 05/14/17 [facility] 09/01/25 documented as of this encounter
--- OUTSIDE RECORDS SUMMARY | 2025-09-23 20:52 | XMS_ITS | Encounter Summary ---
Author Organization [facility] Address [address] [place] [address] Phone Care Team Providers Care Director Plans Name Role Phone Ilya Gusman MD Primary Care Provider [phone] Reason for Visit * Reason Onset Date Comments Med Refill 11/28/2023 Encounter Details Date Type Department Care Team (Late st Contact Info) Description 11/28/2023 Refill [facility] - Internal Medicine [address] [place] [address] [phone] Christophe Dailey MD [address] [place] [phone] Med Refill Social History Tobacco Use [...] Telephone Encounter - Christophe Dailey MD - 11/28/2023 1:24 PM EST Script sent for one week. He should update us as to his response. * Telephone Encounter - Kalani Rosario RN - 11/28/2023 12:36 PM EST Please see pt message regarding dosing Med not pending Pharmacy: [facility] DATE OF LAST REFILL? 11/20/23 FREQUENCY OF REFILLS? 7 days DATE REFILL IS DUE? 11/27/23 IS THIS AN EARLY REFILL? No Last Opioid Treatment Agreement date: 09/25/2018 Last Urine Drug Screen date: 08/06/2021 DATE OF LAST OFFICE VISIT: 11/20/23 DATE OF NEXT OFFICE VISIT: Future Appointments Date Time Provider Department Center 12/04/2023 1:30 PM Alonso Bae MD WE [facility] WE 01/05/2024 8:00 AM ORTHO 2PP [facility]PK [facility] 01/09/2024 1:00 PM ORTHO 2PP PPK [facility] PPK CLASSIFIER OPERATOR reviewed on 11/28/2023 by KALANI ROSARIO RN and no red flags were noted Kalani Davis RNthoracic medicine physician/Refill team documented in this encounter Plan of Treatment Upcoming Encounters Date Type Department Care Team (Late st Contact Info) Description 10/06/2025 10:45 AM EST Office Visit [facility] - Internal Medicine [address] [place] [phone] Ilya Gusman MD [address] [place] [phone] Christophe Dailey MD [address] [place] [phone] 01/18/2026 1:00 PM EST Office Visit [facility] [address] [place] [address] Porsha Marsh, GLOBAL SUPPLY CHAIN DIRECTOR [address] [place] [address] 02/22/2026 11:00 AM EDT Office Visit [facility] [address] [place] [address] [address] [place] [address] Alonso Bae MD [address] [place] [address] 07/17/2026 2:00 PM EDT Office Visit [facility] - Internal Medicine [address] [place] [phone] Ilya Gusman MD [address] [place] [phone] 07/19/2026 11:40 AM EDT Office Visit [facility] [address] [facility] 1 [place] [address] Yesi Perez MD [address] [place] [address] documented as of this encounter Visit Diagnoses [...] as of this encounter Care Teams Director Plans Relationship Specialty Start Date End Date Ilya Gusman MD [address] [place] [phone] PCP - General 05/14/17 [facility] 09/01/25 documented as of this encounter
--- OUTSIDE RECORDS SUMMARY | 2025-09-23 20:52 | XMS_ITS | Encounter Summary ---
Author Organization [facility] Address [address] [place] [address] Phone Care Team Providers Care Leather Production Worker Name Role Phone Ilya Gusman MD Primary Care Provider Encounter Details Date Type Department Care Team (Late st Contact Info) Description 10/12/2020 Orders Only [facility] - Health Information Department [address] [place] [address] Scan, No Provider Available [address] [place] [address] Social History Tobacco Use Types Packs/Day Years [...] 10/06/2025 10:45 AM EST Office Visit [facility] - Internal Medicine [address] [place] [phone] Ilya Gusman MD [address] [place] [phone] Christophe Dailey MD [address] [place] [phone] 01/18/2026 1:00 PM EST Office Visit [facility] [address] [place] [phone] Porsha Marsh, TEST DATA DEVELOPER [address] [place] [address] 02/22/2026 11:00 AM EDT Office Visit [facility] [address] [place] [address] [address] [place] [phone] Alonso Bae MD [address] [place] [address] [address] [place] [address] 07/17/2026 2:00 PM EDT Office Visit [facility] - Internal Medicine [address] [place] [phone] Ilya Gusman MD [address] [place] [phone] 07/19/2026 11:40 AM EDT Office Visit [facility] [address] [place] [address] Yesi Perez MD [address] [place] [address] documented as of this encounter Procedures Procedure Name Priority Date/Time Associated Diagnosis Comments MR INO COX Routine 09/28/2020 documented in this encounter Results * MR nIo cox (09/28/2020) us No Provider Available Scan LAB BLOOD [...] documented as of this encounter Care Teams Leather Production Worker Relationship Specialty Start Date End Date Ilya Gusman MD [address] [place] [phone] PCP - General 05/14/17 [facility] 09/01/25 documented as of this encounter
--- OUTSIDE RECORDS SUMMARY | 2025-09-23 20:52 | XMS_ITS | Encounter Summary ---
Author Organization [facility] ystem Address [address] [place] [address] Phone Care Team Providers Care Band Edger Name Role Phone Ilya Gusman MD Primary Care Provider [phone] Encounter Details Date Type Department Care Team (Late st Contact Info) Description 07/19/2020 Scanned Document [facility] - Health Information Department [address] [place] [address] Scan, No Provider Available [address] [facility] [place] [address] <No scans attached> Social History Tobacco Use [...] AM EST Office Visit [facility] - Internal Medicine [address] [place] [phone] Ilya Gusman MD [address] [place] [phone] Christophe Dailey MD [address] [place] [phone] 01/18/2026 1:00 PM EST Office Visit [facility] [address] [place] [address] Porsha Marsh CNP [address] [place] [phone] 02/22/2026 11:00 AM EDT Office Visit [facility] [address] [place] [address] [address] [place] [phone] Alonso Bae MD [address] [place] [address] [address] [place] [address] 07/17/2026 2:00 PM EDT Office Visit [facility] - Internal Medicine [address] [place] [phone] Ilya Gusman MD [address] [place] [phone] 07/19/2026 11:40 AM EDT Office Visit [facility] [address] [place] [address] Yesi Perez MD [address] [place] [address] documented as of this encounter Visit Diagnoses [...] documented as of this encounter Care Teams Band Edger Relationship Specialty Start Date End Date Ilya Gusman MD [address] [place] [address] [phone] PCP - General 05/14/17 [facility] 09/01/25 documented as of this encounter
--- OUTSIDE RECORDS SUMMARY | 2025-09-23 20:52 | XMS_ITS | Encounter Summary ---
Author Organization [facility] Address [address] [place] [address] Phone Care Team Providers Care Bioprocess Engineer Name Role Phone Ilya Gusman MD Primary Care Provider [phone] Encounter Details Date Type Department Care Team (Late Contact Info) Description 08/14/2017 Orders Only [facility] - Urgent Care [address] [place] [phone] Lynne Da Silva RN Social History Tobacco Use Types Packs/Day [...] [facility] - Internal Medicine [address] [place] [phone] Ilya Gusman MD [address] [place] [phone] Christophe Dailey MD [address] [place] [phone] 01/18/2026 1:00 PM EST Office Visit [facility] [address] [place] [address] 1 [place] [address] Porsha Marsh, PARK ACTIVITIES COORDINATOR 70 [place] [address] 02/22/2026 11:00 AM EDT Office Visit [facility] [address] [place] [address] [address] [place] [phone] Alonso Bae MD [address] [place] [address] [address] [place] [address] 07/17/2026 2:00 PM EDT Office Visit [facility] - Internal Medicine [address] [place] [phone] Ilya Gusman MD [address] [place] [phone] 07/19/2026 11:40 AM EDT Office Visit [facility] [address] [place] [address] Yesi Perez MD [address] [place] [address] documented as of this encounter Visit Diagnoses [...] documented as of this encounter Care Teams Bioprocess Engineer Relationship Specialty Start Date End Date Ilya Gusman MD [address] [place] [phone] PCP - General 05/14/17 [facility] 09/01/25 documented as of this encounter
--- OUTSIDE RECORDS SUMMARY | 2025-09-23 20:52 | XMS_ITS | Encounter Summary ---
Author Organization [facility] Address [address] [place] [address] Phone Care Team Providers Care Talent Acquisition Director Name Role Phone Ilya Gusman MD Primary Care Provider [phone] Reason for Referral * Consultation (1 Month) - Closed Specialty Diagnoses / Procedures Referred By Contac t Referred To Contact Endocrinology Diagnoses Diabetes mellitus without complication ([facility]/HCC) Ilya Gusman MD [address] [place] [phone] Phone: tel: fax: Luz Maria Victor PA-C Phone: tel: fax: Referral ID Status Reason Start Date Expiration Date V isits Requested Visits Authorized [id number] Closed Specialty Services Required 09/18/2017 09/19/2018 6 6 * Consultation (1 Month) - Closed Specialty Diagnoses / Procedures Referred By Contact Referred To Contact Orthopedic / Orthopedics Diagnoses Right leg pain Ilya Gusman MD [address] [place] [phone] Phone: tel: fax: Andres Gandara MD 2 [facility] [address] [place] [address] Phone: tel: fax: Referral ID Status Reason Start Date Expiration Date V isits Requested Visits Authorized [id number] Closed Specialty Services Required 09/16/2017 09/17/2018 6 6 Encounter Details Date Type Department Care Team (Late st Contact Info) Description 09/16/2017 Orders Only [address] [phone] Ilya Gusman MD [address] [place] [address] [phone] Right leg pain (Primary Dx); Diabetes mellitus without complication (CMS/HCC) Social History Tobacco Use Types Packs/Day Years [...] 10/06/2025 10:45 AM EST Office Visit [facility] - Internal Medicine [address] [place] [phone] Ilya Gusman MD [address] [place] [phone] Christophe Dailey MD [address] [place] [phone] 01/18/2026 1:00 PM EST Office Visit [facility] [address] [address] Porsha Marsh, LIFE GUARD 70 [place] [address] 02/22/2026 11:00 AM EDT Office Visit [facility] [address] [place] [phone] Alonso Bae MD [address] [place] [address] 07/17/2026 2:00 PM EDT Office Visit [facility] - Internal Medicine [address] [place] [phone] Ilya Gusman MD [address] [place] [address] [phone] 07/19/2026 11:40 AM EDT Office Visit [facility] [address] [facility] 1 [place] [address] Yesi Perez MD 70 [place] [address] Scheduled Referrals Name Type Priority Associated Diagnoses Orde r Schedule Referral Orthopedic-[facility] Outpatient Referral Routine Right leg pain 1 Occurrences starting 09/16/2017 until 03/17/2018 Referral Endocrinology-I nternal-[facility] Outpatient Referral Routine Diabetes mellitus without complication (CMS/HCC) 1 Occurrences starting 09/18/2017 until 03/19/2018 documented as of this encounter Visit Diagnoses Diagnosis Right leg pain- Primary Pain in soft tissues of limb Diabetes mellitus without complication (CMS/HCC) Type II or unspecified type diabetes mellitus without mention of complication, not stated as uncontrolled documented in this encounter Additional Health Concerns [...] documented as of this encounter Care Teams Talent Acquisition Director Relationship Specialty Start Date End Date Ilya Gusman MD [address] [place] [phone] PCP - General 05/14/17 [facility] 09/01/25 documented as of this encounter
--- OUTSIDE RECORDS SUMMARY | 2025-09-23 20:52 | XMS_ITS | Encounter Summary ---
Author Organization [facility] Address [address] [place] [address] Phone Care Team Providers Care Gummed Tape Press Operator Name Role Phone Ilya Gusman MD Primary Care Provider [phone] Reason for Referral * MRI/CAT/PET Scan (Urgent) - Closed Specialty Diagnoses / Procedures Referred By [place] blankenship Referred To Contact Radiology Diagnoses Lumbar stenosis with neurogenic claudication Lumbar radiculopathy Procedures MRI lumbar spine with and without contrast Leti Welch PA [address] [place] [address] Phone: tel: fax: Referral ID Status Reason Start Date Expiration Date Visits Re quested Visits Authorized [id number] Closed 09/28/2017 12/27/2017 1 1 Encounter Details Date Type Department Care Team (Late st Contact Info) Description 08/19/2017 Orders Only [facility] [address] [place] [address] [address] [place] [phone] Leti Welch PA [address] [facility] [address] [place] [address] Lumbar stenosis with neurogenic claudication (Primary Dx); Lumbar radiculopathy Social History Tobacco Use Types Packs/Day Years [...] Description 10/06/2025 10:45 AM EST [facility] [address] [place] [phone] Ilya Gusman MD [address] [place] [phone] Christophe Dailey MD [address] [place] [phone] 01/18/2026 1:00 PM EST Office Visit [facility] [address] [facility] 1 [place] [address] Porsha Marsh, CLINICAL CARE LEADER 70 [place] [address] 02/22/2026 11:00 AM EDT Office Visit [facility] [address] [place] [phone] Alonso Bae MD [address] [place] [address] 07/17/2026 2:00 PM EDT [facility] [address] [place] [phone] Ilya Gusman MD [address] [place] [phone] 07/19/2026 11:40 AM EDT Office Visit [facility] [address] [address] Yesi Perez MD 70 [place] [address] documented as of this encounter Results * MRI lumbar spine with and without contrast (10/03/2017 7:48 AM EST) Anatomical Region Laterality Modality Spine, L-spine Magnetic Resonan ce 10/03/2017 6:57 AM EST Impressions 10/03/2017 8:56 AM EST Impression: Degenerative and postsurgical changes in the lumbar spine as described above. Narrative 10/03/2017 8:56 AM EST Reason for Exam: Persistent radiculopathy s/p lumbar decompression/fusion. Technique: Multiplanar multisequence T1 and T2-weighted images were acquired through the lumbar spine before and after IV administration of gadolinium contrast. Gadolinium contrast was administered given the patient's surgical history. Comparison: MRI 03/07/2017, CT 05/05/2017 Findings: The vertebral body height is unchanged. The patient is status post posterior transpedicular fusion at L2 and L3. There is normal lumbar lordosis. No current spondylolisthesis is identified. Bone marrow signal is unremarkable. The conus medullaris terminates at T12. At T12-L1: Disc desiccation with a small central disc protrusion resulting in minimal central canal stenosis and no neural foraminal narrowing. At L1-L2: Small central disc protrusion with ligamentum flavum hypertrophy resulting in mild central canal stenosis. No neural foraminal narrowing. At L2-L3: Status post transpedicular posterior fusion. Prominent left-sided facet hypertrophic degenerative changes result in narrowing of the left lateral recess and moderate left neural foraminal narrowing. At L3-L4: There is no disc herniation, spinal canal or neural foraminal narrowing. At L4-L5: Small central disc protrusion with ligamentum flavum hypertrophy and facet arthropathy resulting in minimal central canal stenosis and mild left neural foraminal narrowing. At L5-S1: There is no disc herniation, spinal canal or neural foraminal narrowing. Procedure Note Luz Maria Green MD - 10/03/2017 Reason for Exam: Persistent radiculopathy s/p lumbardecompression/fusion. Technique: Multiplanar multisequence T1 and T2-weighted images wereacquired through the lumbar spine before and after IV administration of gadolinium contrast.Gadolinium contrast was administered given the patient's surgical history. Comparison: MRI 03/07/2017, CT 05/05/2017 Findings: The vertebral body height is unchanged. The patient is statuspost posterior transpedicular fusion at L2 and L3. There is normal lumbar lordosis. Nocurrent spondylolisthesis is identified. Bone marrow signal is unremarkable. The conus medullaris terminates at T12. At T12-L1: Disc desiccation with a small central disc protrusion resultingin minimal central canal stenosis and no neural foraminal narrowing. At L1-L2: Small central disc protrusion with ligamentum flavum hypertrophyresulting in mild central canal stenosis. No neural foraminal narrowing. At L2-L3: Status post transpedicular posterior fusion. Prominentleft-sided facet hypertrophic degenerative changes result in narrowing of the left lateralrecess and moderate left neural foraminal narrowing. At L3-L4: There is no disc herniation, spinal canal or neural foraminalnarrowing. At L4-L5: Small central disc protrusion with ligamentum flavum hypertrophyand facet arthropathy resulting in minimal central canal stenosis and mild leftneural foraminal narrowing. At L5-S1: There is no disc herniation, spinal canal or neural foraminalnarrowing. Impression: Degenerative and postsurgical changes in the lumbar spine as describedabove. us Leti GALARZA IMLauren MRI PROCEDURES Final Result documented in this encounter Visit Diagnoses Diagnosis Lumbar stenosis with neurogenic claudication- Primary Lumbar radiculopathy Thoracic or lumbosacral neuritis or radiculitis, unspecified Lumbar stenosis with neurogenic claudication Lumbar radiculopathy Thoracic or lumbosacral neuritis or radiculitis, unspecified documented in this encounter Additional Health Concerns [...] documented as of this encounter Care Teams Gummed Tape Press Operator Relationship Specialty Start Date End Date Ilya Gusman MD [address] [place] [phone] PCP - General 05/14/17 [facility] 09/01/25 documented as of this encounter
--- OUTSIDE RECORDS SUMMARY | 2025-09-23 20:52 | XMS_ITS | Encounter Summary ---
Author Organization [facility] ystem Address [address] [place] [address] Phone Care Team Providers Care Lens Assistant Name Role Phone Ilya Gusman MD Primary Care Provider [phone] Encounter Details Date Type Department Care Team ([facility] Contact Info) Description 12/17/2023 Orders Only [facility] - Health Information Department [address] [place] [address] Scan, No Provider Available [address] [place] [address] [address] [place] [id number] Social History Tobacco Use Types Packs/Day Years [...] Upcoming Encounters Date Type Department Care Team ([facility] Contact Info) Description 10/06/2025 10:45 AM EST Office Visit [facility] - Internal Medicine [address] [place] [phone] Ilya Gusman MD [address] [place] [phone] Christophe Dailey MD [address] [place] [phone] 01/18/2026 1:00 PM EST Office Visit [address] [address] Porsha Marsh, FINANCIAL ANALYST INTERN [address] [place] [address] 02/22/2026 11:00 AM EDT Office Visit [facility] [address] [place] [address] [address] [place] [phone] Alonso Bae MD [address] [place] [address] [address] [place] [address] 07/17/2026 2:00 PM EDT Office Visit [facility] - Internal Medicine [address] [place] [phone] Ilya Gusman MD [address] [place] [phone] 07/19/2026 11:40 AM EDT Office Visit [address] [address] Yesi Perez MD [address] [place] [address] documented as of this encounter Procedures Procedure Name Priority Date/Time Associated Diagnosis Comments COLONOSCOPY Routine 11/26/2023 documented in this encounter Results * Hm Colonoscopy (11/26/2023) us No Provider Available Scan HEALTH MAINTENANCE [...] documented as of this encounter Care Teams Lens Assistant Relationship Specialty Start Date End Date Ilya Gusman MD [address] [place] [phone] PCP - General 05/14/17 [facility] 09/01/25 documented as of this encounter
--- OUTSIDE RECORDS SUMMARY | 2025-09-23 20:52 | XMS_ITS | Encounter Summary ---
Author Organization [facility] ystem Address [address] [place] [address] Phone Care Team Providers Care Floral Specialist Name Role Phone Ilya Gusman MD Primary Care Provider [phone] Encounter Details Date Type Department Care Team (Late st Contact Info) Description 07/11/2020 Scanned Document [facility] - Health Information Department [address] [place] [address] Scan, No Provider Available [address] [facility] [place] [address] <No scans attached> Social History Tobacco Use [...] Visit [facility] - Internal Medicine [address] [place] [phone] Ilya Gusman MD [address] [place] [phone] Christophe Dailey MD [address] [place] [phone] 01/18/2026 1:00 PM EST Office Visit [facility] [address] [place] [address] Porsha Marsh CNP [address] [place] [address] 02/22/2026 11:00 AM EDT Office Visit [facility] [address] [place] [address] [address] [place] [phone] Alonso Bae MD [address] [place] [address] [address] [place] [address] 07/17/2026 2:00 PM EDT Office Visit [facility] - Internal Medicine [address] [place] [phone] Ilya Gusman MD [address] [place] [phone] 07/19/2026 11:40 AM EDT Office Visit [facility] [address] [place] [address] Yesi Perez MD [address] [place] [address] documented as of this encounter Visit Diagnoses [...] documented as of this encounter Care Teams Floral Specialist Relationship Specialty Start Date End Date Ilya Gusman MD [address] [place] [address] [phone] PCP - General 05/14/17 [facility] 09/01/25 documented as of this encounter
--- OUTSIDE RECORDS SUMMARY | 2025-09-23 20:52 | XMS_ITS | Encounter Summary ---
Author Organization [facility] ystem Address [address] [place] [address] Phone Care Team Providers Care Rn Provider Relations Name Role Phone Ilya Gusman MD Primary Care Provider [phone] Reason for Visit * Reason Comments Med Refill Encounter Details Date Type Department Care Team (Late st Contact Info) Description 08/01/[address] [place] [phone] Franklin Davis MD [address] [place] [address] Med Refill Social History Tobacco Use Types [...] [facility] - [facility] Medicine [address] [place] [phone] Ilya Gusman MD [address] [place] [phone] Christophe Dailey MD [address] [place] [phone] 01/18/2026 1:00 PM EST Office Visit [facility] [address] [place] [address] Porsha Marsh, EMPLOYMENT COUNSELOR [address] [place] [address] 02/22/2026 11:00 AM EDT Office Visit [facility] [address] [place] [address] [address] [place] [phone] Alonso Bae MD [address] [place] [address] [address] [place] [address] 07/17/2026 2:00 PM EDT Office Visit [facility] - [facility] Medicine [address] [place] [phone] Ilya Gusman MD [address] [place] [phone] 07/19/2026 11:40 AM EDT Office Visit [facility] [address] [place] [address] Yesi Perez MD 70 [place] [address] documented as of this encounter Visit Diagnoses [...] documented as of this encounter Care Teams Rn Provider Relations Relationship Specialty Start Date End Date Ilya Gusman MD [address] [place] [phone] PCP - General 05/14/17 [facility] 09/01/25 documented as of this encounter
--- OUTSIDE RECORDS SUMMARY | 2025-09-23 20:52 | XMS_ITS | Encounter Summary ---
Author Organization [facility] ystem Address [address] [place] [address] Phone Care Team Providers Care Employment Service Specialist Name Role Phone Ilya Gusman MD Primary Care Provider [phone] Encounter Details Date Type Department Care Team (Late Contact Info) Description 11/13/2023 Scanned Document [facility] - Health Information Department [address] [place] [address] Scan, No Provider Available [address] [place] [address] [place] [address] <No scans attached> Social History Tobacco Use [...] Upcoming Encounters Date Type Department Care Team ([facility] Contact Info) Description 10/06/2025 10:45 AM EST Office Visit [facility] - Internal Medicine [address] [place] [phone] Ilya Gusman MD [address] [place] [phone] Christophe Dailey MD [address] [place] [address] [phone] 01/18/2026 1:00 PM EST Office Visit [facility] [address] [place] [address] Porsha Marsh, TRIMMING INSPECTOR [address] [place] [address] 02/22/2026 11:00 AM EDT Office Visit [facility] [address] [place] [address] [address] [place] [phone] Alonso Bae MD [address] [place] [address] [address] [place] [address] 07/17/2026 2:00 PM EDT Office Visit [facility] - Internal Medicine [address] [place] [phone] Ilya Gusman MD [address] [place] [phone] 07/19/2026 11:40 AM EDT Office Visit [facility] [address] [place] [address] Yesi Perez MD [address] [place] [address] documented as of this encounter Visit Diagnoses [...] documented as of this encounter Care Teams Employment Service Specialist Relationship Specialty Start Date End Date Ilya Gusman MD [address] [place] [phone] PCP - General 05/14/17 [facility] 09/01/25 documented as of this encounter
--- OUTSIDE RECORDS SUMMARY | 2025-09-23 20:52 | XMS_ITS | Encounter Summary ---
Author Organization [facility] ystem Address [address] [place] [address] Phone Care Team Providers Care Grinder Set Up Operator Gear Tool Name Role Phone Ilya Gusman MD Primary Care Provider [phone] Encounter Details Date Type Department Care Team (Late Contact Info) Description 10/24/2023 Scanned Document [facility] - Health Information Department [address] [place] [phone] Scan, No Provider Available [address] [place] [address] [place] [address] <No scans attached> Social History Tobacco Use [...] Upcoming Encounters Date Type Department Care Team ([facility] Contact Info) Description 10/06/2025 10:45 AM EST Office Visit [facility] - Internal Medicine [address] [place] [phone] Ilya Gusman MD [address] [place] [phone] Christophe Dailey MD [address] [place] [address] [phone] 01/18/2026 1:00 PM EST Office Visit [facility] [address] [place] [address] Porsha Marsh, FIBREGLASS GUN HAND [address] [place] [address] 02/22/2026 11:00 AM EDT Office Visit [facility] [address] [place] [address] [address] [place] [phone] Alonso Bae MD [address] [place] [address] [address] [place] [address] 07/17/2026 2:00 PM EDT Office Visit [facility] - Internal Medicine [address] [place] [phone] Ilya Gusman MD [address] [place] [phone] 07/19/2026 11:40 AM EDT Office Visit [facility] [address] [place] [address] Yesi Perez MD [address] [place] [address] documented as of this encounter Visit Diagnoses [...] documented as of this encounter Care Teams Grinder Set Up Operator Gear Tool Relationship Specialty Start Date End Date Ilya Gusman MD [address] [place] [phone] PCP - General 05/14/17 [facility] 09/01/25 documented as of this encounter
--- OUTSIDE RECORDS SUMMARY | 2025-09-23 20:52 | XMS_ITS | Encounter Summary ---
Author Organization [facility] ystem Address [address] [place] [address] Phone Care Team Providers Care Parts Clerk Name Role Phone Ilya Gusman MD Primary Care Provider [phone] Encounter Details Date Type Department Care Team (Late st Contact Info) Description 10/10/2020 Orders Only [facility] - Health Information Department [address] [place] [address] Scan, No Provider Available [address] [facility] [place] [address] Social History Tobacco Use Types Packs/Day Years [...] [facility] - Internal Medicine [address] [place] [phone] Ilya Gusman MD [address] [place] [phone] Christophe Dailey MD [address] [place] [phone] 01/18/2026 1:00 PM EST Office Visit [facility] [address] [place] [address] Porsha Marsh, MASTER DYER [address] [place] [address] 02/22/2026 11:00 AM EDT Office Visit [facility] [address] [place] [address] [address] [place] [phone] Alonso Bae MD [address] [place] [address] [address] [place] [address] 07/17/2026 2:00 PM EDT Office Visit [facility] - Internal Medicine [address] [place] [phone] Ilya Gusman MD [address] [place] [phone] 07/19/2026 11:40 AM EDT Office Visit [facility] [address] [place] [address] Yesi Perez MD [address] [place] [address] documented as of this encounter Procedures Procedure Name Priority Date/Time Associated Diagnosis Comments XR CHEST 1 VW Routine 09/29/2020 documented in this encounter Results * X-ray chest 1 view (09/29/2020) Anatomical Region Laterality Modality Body Radiographic Carmelina [...] documented as of this encounter Care Teams Parts Clerk Relationship Specialty Start Date End Date Ilya Gusman MD [address] [place] [phone] PCP - General 05/14/17 [facility] 09/01/25 documented as of this encounter
--- OUTSIDE RECORDS SUMMARY | 2025-09-23 20:54 | XMS_ITS | Encounter Summary ---
Author Organization [facility] ystem Address [address] [place] [address] Phone Care Team Providers Care Ruling Technician Name Role Phone Ilya Gusman MD Primary Care Provider [phone] Encounter Details Date Type Department Care Team (Late Contact Info) Description 01/05/2021 Orders Only [facility] - Health Information Department [address] [place] [address] Scan, No Provider Available [address] [facility] [place] [address] Social History Tobacco Use Types Packs/Day Years [...] Description 10/06/2025 10:45 AM EST Office Visit [facility] - Internal Medicine [address] [place] [phone] Ilya Gusman MD [address] [place] [phone] Christophe Dailey MD [address] [place] [phone] 01/18/2026 1:00 PM EST Office Visit [facility] [address] [place] [address] Porsha Marsh CNP [address] [place] [address] 02/22/2026 11:00 AM EDT Office Visit [facility] [address] [place] [address] [address] [place] [phone] Alonso Bae MD [address] [place] [address] [address] [place] [address] 07/17/2026 2:00 PM EDT Office Visit [facility] - Internal Medicine [address] [place] [phone] Ilya Gusman MD [address] [place] [phone] 07/19/2026 11:40 AM EDT Office Visit [facility] [address] [place] [address] Yesi Perez MD [address] [place] [address] documented as of this encounter Procedures Procedure Name Priority Date/Time Associated Diagnosis Comments XR CHEST 1 VW Routine 01/01/2021 documented in this encounter Results * X-ray chest 1 view (01/01/2021) Anatomical Region Laterality Modality Body Radiographic Carmelina [...] documented as of this encounter Care Teams Ruling Technician Relationship Specialty Start Date End Date Ilay Gusman MD [address] [place] [phone] PCP - General 05/14/17 [facility] 09/01/25 documented as of this encounter
--- OUTSIDE RECORDS SUMMARY | 2025-09-23 20:54 | XMS_ITS | Encounter Summary ---
Author Organization [facility] ystem Address [address] [place] [address] Phone Care Team Providers Care Curtain Cutter Hand Name Role Phone Ilya Gusman MD Primary Care Provider [phone] Encounter Details Date Type Department Care Team (Late st Contact Info) Description 09/22/2020 Orders Only [facility] - Health Information Department [address] [place] [address] Scan, No Provider Available [address] [facility] [place] [address] Social History Tobacco Use Types Packs/Day Years [...] 10/06/2025 10:45 AM EST Office Visit [facility] - Internal Medicine [address] [place] [phone] Ilya Gusman MD [address] [place] [phone] Christophe Dailey MD [address] [place] [phone] 01/18/2026 1:00 PM EST Office Visit [facility] [address] [place] [address] Porsha Marsh, ADMINISTRATIVE APPEALS TRIBUNAL MEMBER [address] [place] [address] 02/22/2026 11:00 AM EDT Office Visit [facility] [address] [place] [address] [address] [place] [phone] Alonso Bae MD [address] [place] [address] [address] [place] [address] 07/17/2026 2:00 PM EDT Office Visit [facility] - Internal Medicine [address] [place] [phone] Ilya Gusman MD [address] [place] [phone] 07/19/2026 11:40 AM EDT Office Visit [facility] [address] [place] [address] Yesi Perez MD [address] [place] [address] documented as of this encounter Procedures Procedure Name Priority Date/Time Associated Diagnosis Comments MR MCKINNON PROCEDURES Routine 09/08/2020 documented in this encounter Results * MR Mckinnon Procedures (09/08/2020) us No Provider Available Scan IN CLINIC/BEDSIDE ORD ERABLES Final Result documented in this encounter Visit [...] documented as of this encounter Care Teams Curtain Cutter Hand Relationship Specialty Start Date End Date Ilya Gusman MD [address] [place] [phone] PCP - General 05/14/17 [facility] 09/01/25 documented as of this encounter
--- OUTSIDE RECORDS SUMMARY | 2025-09-23 20:54 | XMS_ITS | Encounter Summary ---
Author Organization [facility] ystem Address [address] [place] [address] Phone Care Team Providers Care Gas Appliance Servicer Name Role Phone Ilya Gusman MD Primary Care Provider [phone] Encounter Details Date Type Department Care Team (Late st Contact Info) Description 10/16/2020 Scanned Document [facility] - Health Information Department [address] [place] [address] Scan, No Provider Available [address] [facility] [place] [address] <No scans attached> Social History Tobacco Use [...] [facility] [address] [place] [phone] Ilya Gusman MD [address] [place] [phone] Christophe Dailey MD [address] [place] [phone] 01/18/2026 1:00 PM EST Office Visit [facility] [address] [place] [address] Porsha Marsh, MARILIA [address] [place] [address] 02/22/2026 11:00 AM EDT Office Visit [facility] [address] [place] [address] [address] [place] [phone] Alonso Bae MD [address] [place] [address] [address] [place] [address] 07/17/2026 2:00 PM EDT Office Visit [facility] - Internal Medicine [address] [place] [phone] Ilya Gusman MD [address] [place] [phone] 07/19/2026 11:40 AM EDT Office Visit [facility] [address] [place] [address] Yesi Perez MD [address] [place] [address] documented as of this encounter Visit Diagnoses [...] documented as of this encounter Care Teams Gas Appliance Servicer Relationship Specialty Start Date End Date Ilya Gusman MD [address] [place] [phone] PCP - General 05/14/17 [facility] 09/01/25 documented as of this encounter
--- OUTSIDE RECORDS SUMMARY | 2025-09-23 20:54 | XMS_ITS | Encounter Summary ---
Author Organization [facility] ystem Address [address] [place] [address] Phone Care Team Providers Care Internal Control Analyst Name Role Phone Ilya Gusman MD Primary Care Provider [phone] Encounter Details Date Type Department Care Team (Late Contact Info) Description 10/03/2020 Orders Only [facility] - Health Information Department [address] [place] [address] Scan, No Provider Available [address] [place] [address] [place] [address] Social History Tobacco Use Types Packs/Day Years [...] [facility] Medicine [address] [place] [phone] Ilya Gusman MD [address] [place] [phone] Christophe Dailey MD [address] [place] [phone] 01/18/2026 1:00 PM EST Office Visit [facility] [address] [place] [address] Porsha Marsh CNP [address] [place] [address] 02/22/2026 11:00 AM EDT Office Visit [facility] [address] [place] [address] [address] [place] [phone] Alonso Bae MD [address] [place] [address] [address] [place] [address] 07/17/2026 2:00 PM EDT Office Visit [facility] - Internal Medicine [address] [place] [address] [phone] Ilya Gusman MD [address] [place] [phone] 07/19/2026 11:40 AM EDT Office Visit [facility] [address] [place] [address] Yesi Perez MD [address] [place] [address] documented as of this encounter Procedures Procedure Name Priority Date/Time Associated Diagnosis Comments ECG 12-LEAD Today 09/14/2020 documented in this encounter Results * ECG (09/14/2020) us No Provider Available Scan ECG ORDERABLES [...] documented as of this encounter Care Teams Internal Control Analyst Relationship Specialty Start Date End Date Ilya Gusman MD [address] [place] [phone] PCP - General 05/14/17 [facility] 09/01/25 documented as of this encounter
--- OUTSIDE RECORDS SUMMARY | 2025-09-23 20:54 | XMS_ITS | Encounter Summary ---
Author Organization [facility] ystem Address [address] [place] [address] Phone Care Team Providers Care Loop Machine Operator Name Role Phone Ilya Gusman MD Primary Care Provider Encounter Details Date Type Department Care Team (Late st Contact Info) Description 09/09/2020 Scanned Document [facility] - Health Information Department [address] [place] [address] Scan, No Provider Available [address] [facility] [place] [address] <No scans attached> Social History Tobacco Use [...] Description 10/06/2025 10:45 AM EST Office Visit [facility] - Internal Medicine [address] [place] [phone] Ilya Gusman MD [address] [place] [phone] Christophe Dailey MD [address] [place] [phone] 01/18/2026 1:00 PM EST Office Visit [facility] [address] [place] [address] Porsha Marsh CNP [address] [place] [address] 02/22/2026 11:00 AM EDT Office Visit [facility] [address] [place] [address] [address] [place] [phone] Alosno Bae MD [address] [place] [address] [address] [place] [address] 07/17/2026 2:00 PM EDT Office Visit [facility] - Internal Medicine [address] [place] [phone] Ilya Gusman MD [address] [place] [phone] 07/19/2026 11:40 AM EDT Office Visit [facility] [address] [place] [address] Yesi Perez MD [address] [place] [address] documented as of this encounter Visit Diagnoses [...] documented as of this encounter Care Teams Loop Machine Operator Relationship Specialty Start Date End Date Ilya Gusman MD [address] [place] [phone] PCP - General 05/14/17 [facility] 09/01/25 documented as of this encounter
--- OUTSIDE RECORDS SUMMARY | 2025-09-23 20:54 | XMS_ITS | Encounter Summary ---
Author Organization [facility] ystem Address [address] [place] [address] Phone Care Team Providers Care Medical Doctor Name Role Phone Ilya Gusman MD Primary Care Provider [phone] Encounter Details Date Type Department Care Team (Late Contact Info) Description 09/28/2020 Scanned Document [facility] - Health Information Department [address] [place] [address] Scan, No Provider Available [address] [place] [address] [place] [address] <No scans attached> Social History Tobacco Use [...] [facility] - Internal Medicine [address] [place] [phone] Ilya Gusman MD [address] [place] [phone] Christophe Dailey MD [address] [place] [phone] 01/18/2026 1:00 PM EST Office Visit [facility] [address] [place] [address] Porsha Marsh, LANDFILL ATTENDANT [address] [place] [address] 02/22/2026 11:00 AM EDT Office Visit [facility] [address] [place] [address] [address] [place] [phone] Alonso Bae MD [address] [place] [address] [address] [place] [address] 07/17/2026 2:00 PM EDT Office Visit [facility] - Internal Medicine [address] [place] [phone] Ilya Gusman MD [address] [place] [phone] 07/19/2026 11:40 AM EDT Office Visit [facility] [address] [place] [address] 110[address] Yesi Perez MD [address] [place] [address] documented as of this encounter Visit Diagnoses [...] as of this encounter Care Teams Medical Doctor Relationship Specialty Start Date End Date Ilya Gusman MD [address] [place] [phone] PCP - General 05/14/17 [facility] 09/01/25 documented as of this encounter
--- OUTSIDE RECORDS SUMMARY | 2025-09-23 20:54 | XMS_ITS | Encounter Summary ---
Author Organization [facility] ystem Address [address] [place] [address] Phone Care Team Providers Care Outpatient Physical Therapist Name Role Phone Ilya Gusman MD Primary Care Provider [phone] Encounter Details Date Type Department Care Team (Late Contact Info) Description 02/13/2021 Orders Only [facility] - Health Information Department [address] [place] [address] Scan, No Provider Available [address] [facility] [place] [address] Social History Tobacco Use Types Packs/Day Years [...] Description 10/06/2025 10:45 AM EST Office Visit [facility] - Internal Medicine [address] [place] [address] [phone] Ilya Gusman MD [address] [place] [phone] Christophe Dailey MD [address] [place] [phone] 01/18/2026 1:00 PM EST Office Visit [facility] [address] [place] [address] Porsha Marsh, MARILIA [address] [place] [address] 02/22/2026 11:00 AM EDT Office Visit [facility] [address] [place] [address] [address] [place] [phone] Alonso Bae MD [address] [place] [address] [address] [place] [address] 07/17/2026 2:00 PM EDT Office Visit [facility] - Internal Medicine [address] [place] [phone] Ilya Gusman MD [address] [place] [phone] 07/19/2026 11:40 AM EDT Office Visit [facility] [address] [place] [address] Yesi Peerz MD [address] [place] [address] documented as of this encounter Procedures Procedure Name Priority Date/Time Associated Diagnosis Comments MR INO LABS Routine 02/01/2021 CT HEAD WO CONTRAST Routine 02/01/2021 ECG 12-LEAD Today 02/01/2021 documented in this encounter Results * MR [facility] labs (02/01/2021) us No Provider Available Scan LAB BLOOD ORDERABLES Final Result * CT head without contrast (02/01/2021) Anatomical Region Laterality Modality Head and Neck Computed Tomogra phy us No Provider Available Scan IMG CT PROCEDURES Fin al Result * ECG (02/01/2021) us No Provider Available Scan ECG ORDERABLES [...] documented as of this encounter Care Teams Outpatient Physical Therapist Relationship Specialty Start Date End Date Ilya Gusman MD [address] [place] [phone] PCP - General 05/14/17 [facility] 09/01/25 documented as of this encounter
--- OUTSIDE RECORDS SUMMARY | 2025-09-23 20:54 | XMS_ITS | Encounter Summary ---
Author Organization [facility] Address [address] [place] [address] Phone Care Team Providers Care Professor Of Exercise Science Name Role Phone Ilya Gusman MD Primary Care Provider [phone] Reason for Visit * Reason Onset Date Comments Med Refill Med Refill 02/19/2021 Encounter Details Date Type Department Care Team ([facility] Contact Info) Description 02/11/2021 Refill [facility] - Internal Medicine [address] [place] [address] [phone] Ilya Gusman MD [address] [place] [phone] Med Refill; Med Refill Social History [...] AM EST Office Visit [facility] - Internal Medicine [address] [place] [phone] Ilya Gusman MD [address] [place] [phone] Christophe Dailey MD [address] [place] [phone] 01/18/2026 1:00 PM EST Office Visit [facility] [address] [place] [address] Porsha Marsh, MARILIA [address] [place] [address] 02/22/2026 11:00 AM EDT Office Visit [facility] [address] [place] [address] [address] [place] [phone] Alonso Bea MD [address] [place] [address] [address] [place] [address] 07/17/2026 2:00 PM EDT Office Visit [facility] - Internal Medicine [address] [place] [phone] Ilya Gusman MD [address] [place] [phone] 07/19/2026 11:40 AM EDT Office Visit [facility] [address] [place] [address] Yesi Perez MD [address] [place] [address] documented as of this encounter Visit Diagnoses [...] documented as of this encounter Care Teams Professor Of Exercise Science Relationship Specialty Start Date End Date Ilya Gusman MD [address] [place] [phone] PCP - General 05/14/17 [facility] 09/01/25 documented as of this encounter
--- OUTSIDE RECORDS SUMMARY | 2025-09-23 20:54 | XMS_ITS | Encounter Summary ---
Author Organization [facility] ystem Address [address] [place] [address] Phone Care Team Providers Care Fire Prevention Captain Name Role Phone Ilya Gusman MD Primary Care Provider [phone] Encounter Details Date Type Department Care Team (Late st Contact Info) Description 11/07/2020 Orders Only [facility] - Health Information Department [address] [place] [address] Scan, No Provider Available [address] [place] [address] Social History Tobacco Use Types Packs/Day Years [...] 10:45 AM EST Office Visit [facility] - Internal Medicine [address] [place] [phone] Ilya Gusman MD [address] [place] [phone] Christophe Dailey MD [address] [place] [phone] 01/18/2026 1:00 PM EST Office Visit [facility] [address] [place] [address] Porsha Marsh, CHIROPRACTIC CARE [address] [place] [address] 02/22/2026 11:00 AM EDT Office Visit [facility] [address] [place] [address] [address] [place] [phone] Alonso Bae MD [address] [place] [address] [address] [place] [address] 07/17/2026 2:00 PM EDT Office Visit [facility] - Internal Medicine [address] [place] [phone] Ilya uGsman MD [address] [place] [phone] 07/19/2026 11:40 AM EDT Office Visit [facility] [address] [place] [address] Yesi Perez MD [address] [place] [address] documented as of this encounter Procedures Procedure Name Priority Date/Time Associated Diagnosis Comments MR INO COX Routine 10/23/2020 documented in this encounter Results * MR Ino cox (10/23/2020) us No Provider Available Scan LAB BLOOD [...] documented as of this encounter Care Teams Fire Prevention Captain Relationship Specialty Start Date End Date Ilya Gusman MD [address] [place] [phone] PCP - General 05/14/17 [facility] 09/01/25 documented as of this encounter
--- OUTSIDE RECORDS SUMMARY | 2025-09-23 20:54 | XMS_ITS | Encounter Summary ---
Author Organization [facility] ystem Address [address] [place] [address] Phone Care Team Providers Care Automobile Body Customizer Name Role Phone Ilya Gusman MD Primary Care Provider [phone] Encounter Details Date Type Department Care Team (Late Contact Info) Description 09/29/2020 Scanned Document [facility] - Health Information Department [address] [place] [address] Scan, No Provider Available [address] [place] [address] [place] [address] <No scans attached> Social History Tobacco Use [...] Description 10/06/2025 10:45 AM EST Office Visit [facility] - Internal Medicine [address] [place] [phone] Ilya Gusman MD [address] [place] [phone] Christophe Dailey MD [address] [place] [phone] 01/18/2026 1:00 PM EST Office Visit [facility] [address] [place] [address] Porsha Marsh, BEHAVIORAL PEDIATRICIAN [address] [place] [address] 02/22/2026 11:00 AM EDT Office Visit [facility] [address] [place] [address] [address] [place] [phone] Alonso Bae MD [address] [place] [address] [address] [place] [address] 07/17/2026 2:00 PM EDT Office Visit [facility] - Internal Medicine [address] [place] [phone] Ilya Gusman MD [address] [place] [phone] 07/19/2026 11:40 AM EDT Office Visit [facility] [address] [place] [address] Yesi Perez MD [address] [place] [address] documented as of this encounter Visit Diagnoses [...] documented as of this encounter Care Teams Automobile Body Customizer Relationship Specialty Start Date End Date Ilya Gusman MD [address] [place] [phone] PCP - General 05/14/17 [facility] 09/01/25 documented as of this encounter
--- OUTSIDE RECORDS SUMMARY | 2025-09-23 20:54 | XMS_ITS | Encounter Summary ---
Author Organization [facility] ystem Address [address] [place] [address] Phone Care Team Providers Care Upholsterer Outside Name Role Phone Ilya Gusman MD Primary Care Provider [phone] Encounter Details Date Type Department Care Team (Late st Contact Info) Description 09/14/2020 Scanned Document [facility] - Health Information Department [address] [place] [address] Scan, No Provider Available [address] [place] [address] <No scans attached> Social History Tobacco Use [...] [facility] - Internal Medicine [address] [place] [phone] Ilya Gusman MD [address] [place] [phone] Christophe Dailey MD [address] [place] [phone] 01/18/2026 1:00 PM EST Office Visit [facility] [address] [place] [address] Porsha Marsh CNP [address] [place] [address] 02/22/2026 11:00 AM EDT Office Visit [facility] [address] [place] [address] [address] [place] [phone] Alonso Bae MD [address] [place] [address] [address] [place] [address] 07/17/2026 2:00 PM EDT Office Visit [facility] - Internal Medicine [address] [place] [phone] Ilya Gusman MD [address] [place] [phone] 07/19/2026 11:40 AM EDT Office Visit [facility] [address] [place] [address] Yesi Perez MD [address] [place] [address] documented as of this encounter Visit Diagnoses [...] documented as of this encounter Care Teams Upholsterer Outside Relationship Specialty Start Date End Date Ilya Gusman MD [address] [place] [address] [phone] PCP - General 05/14/17 [facility] 09/01/25 documented as of this encounter
--- OUTSIDE RECORDS SUMMARY | 2025-09-23 20:54 | XMS_ITS | Encounter Summary ---
Author Organization [facility] Address [address] [place] [address] Phone Care Team Providers Care Fusing Machine Tender Name Role Phone Ilya Gusman MD Primary Care Provider [phone] Reason for Visit * Reason Onset Date Comments Med Refill 01/30/2021 Encounter Details Date Type Department Care Team (Late st Contact Info) Description 01/30/2021 Refill [facility] - Internal Medicine [address] [place] [address] [phone] Christophe Dailey MD [address] [place] [phone] Med Refill Social History Tobacco Use [...] 10/06/2025 10:45 AM EST Office Visit [facility] - Internal Medicine [address] [place] [phone] Ilya Gusman MD [address] [place] [phone] Christophe Dailey MD [address] [place] [phone] 01/18/2026 1:00 PM EST Office Visit [facility] [address] [place] [address] Porsha Marsh, PLYWOOD LAYUP LINE CORE LAYER [address] [place] [address] 02/22/2026 11:00 AM EDT Office Visit [facility] [address] [place] [address] [address] [place] [phone] Alonos Bae MD [address] [place] [address] [address] [place] [address] 07/17/2026 2:00 PM EDT Office Visit [facility] - Internal Medicine [address] [place] [phone] Ilya Gusman MD [address] [place] [address] [phone] 07/19/2026 11:40 AM EDT Office Visit [facility] [address] [address] Yesi Perez MD [address] [place] [address] documented as of this encounter Visit Diagnoses [...] documented as of this encounter Care Teams Fusing Machine Tender Relationship Specialty Start Date End Date Ilya Gusman MD [address] [place] [phone] PCP - General 05/14/17 [facility] 09/01/25 documented as of this encounter
--- OUTSIDE RECORDS SUMMARY | 2025-09-23 20:54 | XMS_ITS | Encounter Summary ---
Author Organization [facility] ystem Address [address] [place] [address] Phone Care Team Providers Care Tunneling Machine Operator Name Role Phone Ilya Gusman MD Primary Care Provider [phone] Encounter Details Date Type Department Care Team (Late Contact Info) Description 01/15/2021 Scanned Document [facility] - Health Information Department [address] [place], [place] [phone] Scan, No Provider Available [address] [place] [address] [place] [address] <No scans attached> Social History Tobacco Use [...] Description 10/06/2025 10:45 AM EST Office Visit [facility] - Internal Medicine [address] [place] [phone] Ilya Gusman MD [address] [place] [phone] Christophe Dailey MD [address] [place] [phone] 01/18/2026 1:00 PM EST Office Visit [facility] [address] [place] [address] Porsha Marsh, MARILIA [address] [place] [address] 02/22/2026 11:00 AM EDT Office Visit [facility] [address] [place] [address] [address] [place] [phone] Alonso Bae MD [address] [place] [address] [address] [place] [address] 07/17/2026 2:00 PM EDT Office Visit [facility] - Internal Medicine [address] [place] [phone] Ilya Gusman MD [address] [place] [phone] 07/19/2026 11:40 AM EDT Office Visit [facility] [address] [place] [address] Yesi Perez MD [address] [place] [address] documented as of this encounter Visit Diagnoses Not on filedocumented in this encounter Additional Health Concerns Infection Onset Date Last Indicated Resolved Time Covid Possible 08/21/2021 08/21/202108/2108/21/2021 10 :22 PM EDT Covid Possible 05/24/2022 [...] documented as of this encounter Care Teams Tunneling Machine Operator Relationship Specialty Start Date End Date Ilya Gusman MD [address] [place] [address] [phone] PCP - General 05/14/17 [facility] 09/01/25 documented as of this encounter
--- OUTSIDE RECORDS SUMMARY | 2025-09-23 20:54 | XMS_ITS | Encounter Summary ---
Author Organization [facility] ystem Address [address] [place] [address] Phone Care Team Providers Care Urologist Name Role Phone Ilya Gusman MD Primary Care Provider [phone] Reason for Visit * Reason Comments Med Refill Encounter Details Date Type Department Care Team (Late Contact Info) Description 10/12/[address] [place] [phone] Franklin Davis MD 55 [place] [address] Med Refill Social History Tobacco Use Types [...] 10:45 AM EST Office Visit [facility] - Internal Medicine [address] [place] [phone] Ilya Gusman MD [address] [place] [phone] Christophe Dailey MD [address] [place] [phone] 01/18/2026 1:00 PM EST Office Visit [facility] [address] [place] [address] Porsha Marsh, PAVING CREW FOREMAN 70 [place] [address] 02/22/2026 11:00 AM EDT Office Visit [facility] [address] [place] [address] [address] [place] [phone] Alonso Bae MD [address] [place] [address] [address] [place] [address] 07/17/2026 2:00 PM EDT Office Visit [facility] - Internal Medicine [address] [place] [phone] Ilya Gusman MD [address] [place] [phone] 07/19/2026 11:40 AM EDT Office Visit [facility] [address] [place] [address] Yesi Perez MD 70 [place] [address] documented as of this encounter Visit Diagnoses [...] documented as of this encounter Care Teams Urologist Relationship Specialty Start Date End Date Ilya Gusman MD [address] [place] [phone] PCP - General 05/14/17 [facility] 09/01/25 documented as of this encounter
--- OUTSIDE RECORDS SUMMARY | 2025-09-23 20:54 | XMS_ITS | Encounter Summary ---
Author Organization [facility] ystem Address [address] [place] [address] Phone Care Team Providers Care Cyber Analyst Name Role Phone Ilya Gusman MD Primary Care Provider [phone] Encounter Details Date Type Department Care Team (Late st Contact Info) Description 10/24/2020 Scanned Document [facility] - Health Information Department 143 [place] [address] Scan, No Provider Available [address] [facility] [place] [address] <No scans attached> Social History Tobacco Use [...] 10:45 AM EST Office Visit [facility] - Internal Medicine [address] [place] [phone] Ilya Gusman MD [address] [place] [phone] Christophe Dailey MD [address] [place] [phone] 01/18/2026 1:00 PM EST Office Visit [facility] [address] [place] [address] Porsha Marsh, MARILIA [address] [place] [address] 02/22/2026 11:00 AM EDT Office Visit [facility] [address] [place] [address] [address] [place] [phone] Alonso Bae MD [address] [place] [address] [address] [place] [address] 07/17/2026 2:00 PM EDT Office Visit [facility] - Internal Medicine [address] [place] [phone] Ilya Gusman MD [address] [place] [phone] 07/19/2026 11:40 AM EDT Office Visit [facility] [address] [place] [address] Yesi Perez MD [address] [place] [address] documented as of this encounter Visit Diagnoses [...] documented as of this encounter Care Teams Cyber Analyst Relationship Specialty Start Date End Date Ilya Gusman MD [address] [place] [phone] PCP - General 05/14/17 [facility] 09/01/25 documented as of this encounter
--- OUTSIDE RECORDS SUMMARY | 2025-09-23 20:54 | XMS_ITS | Encounter Summary ---
Author Organization [facility] Address [address] [place] [address] Phone Care Team Providers Care Ruffler Name Role Phone Ilya Gusman MD Primary Care Provider [phone] Reason for Visit * Reason Comments Med Refill Encounter Details Date Type Department Care Team (Late st Contact Info) Description 12/05/2020 Refill [facility] - Internal Medicine [address] [place] [address] [phone] Christophe Dailey MD [address] [place] [phone] Med Refill Social History Tobacco Use [...] 10/06/2025 10:45 AM EST Office Visit [facility] - Internal Medicine [address] [place] [phone] Ilya Gusman MD [address] [place] [phone] Christophe Dailey MD [address] [place] [phone] 01/18/2026 1:00 PM EST Office Visit [facility] [address] [address] Porsha Marsh CNP 70 [place] [address] 02/22/2026 11:00 AM EDT Office Visit [facility] [address] [place] [address] [address] [place] [phone] Alonso Bae MD [address] [place] [address] [address] [place] [address] 07/17/2026 2:00 PM EDT Office Visit [facility] - Internal Medicine [address] [place] [phone] Ilya Gusman MD [address] [place] [phone] 07/19/2026 11:40 AM EDT Office Visit [facility] [address] [address] Yesi Perez MD 70 [place] [address] documented as of this encounter Visit Diagnoses [...] documented as of this encounter Care Teams Ruffler Relationship Specialty Start Date End Date Ilya Gusman MD [address] [place] [phone] PCP - General 05/14/17 [facility] 09/01/25 documented as of this encounter
--- OUTSIDE RECORDS SUMMARY | 2025-09-23 20:54 | XMS_ITS | Encounter Summary ---
Author Organization [facility] ystem Address [address] [place] [address] Phone Care Team Providers Care Wealth Management Manager Name Role Phone Ilya Gusman MD Primary Care Provider [phone] Encounter Details Date Type Department Care Team (Late Contact Info) Description 09/25/2020 Orders Only [facility] - Health Information Department [address] [place] [address] Scan, No Provider Available [address] [place] [address] [place] [address] Social History Tobacco Use Types Packs/Day Years [...] Visit [facility] - Internal Medicine [address] [place] [address] [phone] Ilya Gusman MD [address] [place] [phone] Christophe Dailey MD [address] [place] [phone] 01/18/2026 1:00 PM EST Office Visit [facility] [address] [place] [address] Porsha Marsh, MARILIA [address] [place] [address] 02/22/2026 11:00 AM EDT Office Visit [facility] [address] [place] [address] [address] [place] [phone] Alonso Bae MD [address] [place] [address] [address] [place] [address] 07/17/2026 2:00 PM EDT Office Visit [facility] - Internal Medicine [address] [place] [phone] Ilya Gusman MD [address] [place] [phone] 07/19/2026 11:40 AM EDT Office Visit [facility] [address] [place] [address] Yesi Perez MD [address] [place] [address] documented as of this encounter Procedures Procedure Name Priority Date/Time Associated Diagnosis Comments CT ANGIOGRAM CHEST W WO CONTRAST Routine 09/14/2020 documented in this encounter Results * CT angiogram chest with contrast (09/14/2020) Anatomical Region Laterality Modality Body Computed Tomogra [...] documented as of this encounter Care Teams Wealth Management Manager Relationship Specialty Start Date End Date Ilya Gusman MD [address] [place] [phone] PCP - General 05/14/17 [facility] 09/01/25 documented as of this encounter
--- OUTSIDE RECORDS SUMMARY | 2025-09-23 20:54 | XMS_ITS | Encounter Summary ---
Author Organization [facility] ystem Address [address] [place] [address] Phone Care Team Providers Care Dyeing Machine Feeder Name Role Phone Ilya Gusman MD Primary Care Provider [phone] Encounter Details Date Type Department Care Team (Late Contact Info) Description 02/14/2021 Orders Only [facility] - Health Information Department [address] [place] [address] Scan, No Provider Available [address] [facility] [place] [address] Social History Tobacco Use Types Packs/Day Years [...] [facility] - Internal Medicine [address] [place] [address] [phone] Ilya Gusman MD [address] [place] [phone] Christophe Dailey MD [address] [place] [phone] 01/18/2026 1:00 PM EST Office Visit [facility] [address] [place] [address] Porsha Marsh CNP [address] [place] [address] 02/22/2026 11:00 AM EDT Office Visit [facility] [address] [place] [address] [address] [place] [phone] Alonso Bae MD [address] [place] [address] [address] [place] [address] 07/17/2026 2:00 PM EDT Office Visit [facility] - Internal Medicine [address] [place] [phone] Ilya Gusman MD [address] [place] [phone] 07/19/2026 11:40 AM EDT Office Visit [facility] [address] [place] [address] Yesi Perez MD [address] [place] [address] documented as of this encounter Procedures Procedure Name Priority Date/Time Associated Diagnosis Comments TRANSTHORACIC ECHO (TTE) COMPLETE Routine 02/12/2021 STRESS TEST ONLY Routine 02/12/2021 documented in this encounter Results * Stress Test (02/12/2021) us No Provider Available Scan CV STRESS PROCEDURES Edited Result - Final * Transthoracic Echo (TTE) (02/12/2021) Narrative Josie Pereira - 02/12/2021 disregard us No Provider Available Scan CV ECHO [...] documented as of this encounter Care Teams Dyeing Machine Feeder Relationship Specialty Start Date End Date Ilya Gusman MD [address] [place] [phone] PCP - General 05/14/17 [facility] 09/01/25 documented as of this encounter
--- OUTSIDE RECORDS SUMMARY | 2025-09-23 20:54 | XMS_ITS | Encounter Summary ---
Author Organization [facility] ystem Address [address] [place] [address] Phone Care Team Providers Care Librarian Assistant Name Role Phone Ilya Gusman MD Primary Care Provider [phone] Encounter Details Date Type Department Care Team (Late Contact Info) Description 02/01/2021 Scanned Document [facility] - Health Information Department [address] [place], [place] [phone] Scan, No Provider Available [address] [place] [address] [place] [address] <No scans attached> Social History Tobacco Use [...] Description 10/06/2025 10:45 AM EST Office Visit [facility] - Internal Medicine [address] [place] [phone] Ilya Gusman MD [address] [place] [phone] Christophe Dailey MD [address] [place] [phone] 01/18/2026 1:00 PM EST Office Visit [facility] [address] [place] [address] Porsha Marsh, MARILIA [address] [place] [address] 02/22/2026 11:00 AM EDT Office Visit [facility] [address] [place] [address] [address] [place] [phone] Alonso Bae MD [address] [place] [address] [address] [place] [address] 07/17/2026 2:00 PM EDT Office Visit [facility] - Internal Medicine [address] [place] [phone] Ilya Gusman MD [address] [place] [phone] 07/19/2026 11:40 AM EDT Office Visit [facility] [address] [place] [address] Yesi Perez MD [address] [place] [address] documented as of this encounter Visit Diagnoses [...] documented as of this encounter Care Teams Librarian Assistant Relationship Specialty Start Date End Date Ilya Gusman MD [address] [place] [address] [phone] PCP - General 05/14/17 [facility] 09/01/25 documented as of this encounter
--- OUTSIDE RECORDS SUMMARY | 2025-09-23 20:54 | XMS_ITS | Encounter Summary ---
Author Organization [facility] ystem Address [address] [place] [address] Phone Care Team Providers Care Piercing Machine Operator Name Role Phone Ilya Gusman MD Primary Care Provider [phone] Encounter Details Date Type Department Care Team (Late st Contact Info) Description 10/23/2020 Scanned Document [facility] - Health Information Department 143 [place] [address] Scan, No Provider Available [address] [facility] [place] [address] <No scans attached> Social History Tobacco Use [...] Visit [facility] - Internal Medicine [address] [place] [phone] Ilya Gusman MD [address] [place] [phone] Christophe Dailey MD [address] [place] [phone] 01/18/2026 1:00 PM EST Office Visit [facility] [address] [place] [phone] Porsha Marsh, MARILIA [address] [place] [address] 02/22/2026 11:00 AM EDT Office Visit [facility] [address] [place] [address] [address] [place] [phone] Alonso Bae MD [address] [place] [address] [address] [place] [address] 07/17/2026 2:00 PM EDT Office Visit [facility] - Internal Medicine [address] [place] [phone] Ilya Gusman MD [address] [place] [phone] 07/19/2026 11:40 AM EDT Office Visit [facility] [address] [place] [address] Yesi Perez MD [address] [place] [address] documented as of this encounter Visit Diagnoses [...] documented as of this encounter Care Teams Piercing Machine Operator Relationship Specialty Start Date End Date Ilya Gusman MD [address] [place] [phone] PCP - General 05/14/17 [facility] 09/01/25 documented as of this encounter
--- OUTSIDE RECORDS SUMMARY | 2025-09-23 20:54 | XMS_ITS | Encounter Summary ---
Author Organization [facility] ystem Address [address] [place] [address] Phone Care Team Providers Care Respiratory Physician Name Role Phone Ilya Gusman MD Primary Care Provider [phone] Encounter Details Date Type Department Care Team (Late st Contact Info) Description 09/09/2020 Scanned Document [facility] - Health Information Department 143 [place] [address] Scan, No Provider Available [address] [facility] [place] [address] <No scans attached> Social History Tobacco Use [...] Description 10/06/2025 10:45 AM EST Office Visit [facility] - Internal Medicine [address] [place] [phone] Ilya Gusman MD [address] [place] [phone] Christophe Dailey MD [address] [place] [phone] 01/18/2026 1:00 PM EST Office Visit [facility] [address] [place] [address] Porsha Marsh CNP [address] [place] [address] 02/22/2026 11:00 AM EDT Office Visit [facility] [address] [place] [address] [address] [place] [phone] Alonso Bae MD [address] [place] [address] [address] [place] [address] 07/17/2026 2:00 PM EDT Office Visit [facility] - Internal Medicine [address] [place] [phone] Ilya Gusman MD [address] [place] [phone] 07/19/2026 11:40 AM EDT Office Visit [facility] [address] [place] [address] Yesi Perez MD [address] [place] [address] documented as of this encounter Visit Diagnoses [...] documented as of this encounter Care Teams Respiratory Physician Relationship Specialty Start Date End Date Ilya Gusman MD [address] [place] [address] [phone] PCP - General 05/14/17 [facility] 09/01/25 documented as of this encounter
--- OUTSIDE RECORDS SUMMARY | 2025-09-23 20:54 | XMS_ITS | Encounter Summary ---
Author Organization [facility] ystem Address [address] [place] [address] Phone Care Team Providers Care Demand Planning Manager Name Role Phone Ilya Gusman MD Primary Care Provider [phone] Encounter Details Date Type Department Care Team (Late Contact Info) Description 01/18/2021 Scanned Document [facility] - Health Information Department 143 [place], [place] [phone] Scan, No Provider Available [address] [place] [address] [place] [address] <No scans attached> Social History Tobacco Use [...] 10/06/2025 10:45 AM EST Office Visit [facility] - Internal Medicine [address] [place] [phone] Ilya Gusman MD [address] [place] [phone] Christophe Dailey MD [address] [place] [phone] 01/18/2026 1:00 PM EST Office Visit [facility] [address] [place] [address] Porsha Marsh, MARILIA [address] [place] [address] 02/22/2026 11:00 AM EDT Office Visit [facility] [address] [place] [address] [address] [place] [phone] Alonso Bae MD [address] [place] [address] [address] [place] [address] 07/17/2026 2:00 PM EDT Office Visit [facility] - Internal Medicine [address] [place] [phone] Ilya Gusman MD [address] [place] [phone] 07/19/2026 11:40 AM EDT Office Visit [facility] [address] [place] [address] Yesi Perez MD [address] [place] [address] documented as of this encounter Visit Diagnoses [...] documented as of this encounter Care Teams Demand Planning Manager Relationship Specialty Start Date End Date Ilya Gusman MD [address] [place] [address] [phone] PCP - General 05/14/17 [facility] 09/01/25 documented as of this encounter
--- OUTSIDE RECORDS SUMMARY | 2025-09-23 20:54 | XMS_ITS | Encounter Summary ---
Author Organization [facility] ystem Address [address] [place] [address] Phone Care Team Providers Care Director Of Accounts Receivable Name Role Phone Ilya Gusman MD Primary Care Provider [phone] Encounter Details Date Type Department Care Team (Late st Contact Info) Description 08/29/2020 Orders Only [facility] - Health Information Department 143 [place] [address] Scan, No Provider Available [address] [facility] [place] [address] Social History Tobacco Use Types Packs/Day Years [...] AM EST Office Visit [facility] - Internal Medicine [address] [place] [phone] Ilya Gusman MD [address] [place] [phone] Christophe Dailey MD [address] [place] [phone] 01/18/2026 1:00 PM EST Office Visit [facility] [address] [place] [phone] Porsha Marsh, DATA ANALYTICS ANALYST [address] [place] [address] 02/22/2026 11:00 AM EDT Office Visit [facility] [address] [place] [address] [address] [place] [phone] Alonso Bae MD [address] [place] [address] [address] [place] [address] 07/17/2026 2:00 PM EDT Office Visit [facility] - Internal Medicine [address] [place] [phone] Ilya Gusman MD [address] [place] [phone] 07/19/2026 11:40 AM EDT Office Visit [facility] [address] [place] [address] Yesi Perez MD [address] [place] [address] documented as of this encounter Procedures Procedure Name Priority Date/Time Associated Diagnosis Comments DIABETES EYE EXAM Routine 08/14/2020 documented in this encounter Results * Diabetes Eye Exam (08/14/2020) us No Provider Available Scan [facility] Fi nal Result documented in this [...] as of this encounter Care Teams Director Of Accounts Receivable Relationship Specialty Start Date End Date Ilya Gusman MD [address] [place] [phone] PCP - General 05/14/17 [facility] 09/01/25 documented as of this encounter
--- OUTSIDE RECORDS SUMMARY | 2025-09-23 20:54 | XMS_ITS | Encounter Summary ---
Author Organization [facility] ystem Address [address] [place] [address] Phone Care Team Providers Care Human Projectile Name Role Phone Ilya Gusman MD Primary Care Provider [phone] Encounter Details Date Type Department Care Team (Late Contact Info) Description 01/05/2021 Orders Only [facility] - Health Information Department 143 [place] [address] Scan, No Provider Available [address] [facility] [place] [address] Social History Tobacco Use Types Packs/Day Years [...] 10:45 AM EST Office Visit [facility] - Internal Medicine [address] [place] [phone] Ilya Gusman MD [address] [place] [phone] Christophe Dailey MD [address] [place] [phone] 01/18/2026 1:00 PM EST Office Visit [facility] [address] [place] [address] Porsha Marsh, MARILIA [address] [place] [address] 02/22/2026 11:00 AM EDT Office Visit [facility] [address] [place] [address] [address] [place] [phone] Alonso Bae MD [address] [place] [address] [address] [place] [address] 07/17/2026 2:00 PM EDT Office Visit [facility] - Internal Medicine [address] [place] [phone] Ilya Gusman MD [address] [place] [phone] 07/19/2026 11:40 AM EDT Office Visit [facility] [address] [place] [address] Yesi Perez MD [address] [place] [address] documented as of this encounter Procedures Procedure Name Priority Date/Time Associated Diagnosis Comments MR INO COX Routine 01/01/2021 documented in this encounter Results * MR Ino cox (01/01/2021) us No Provider Available Scan LAB BLOOD [...] as of this encounter Care Teams Human Projectile Relationship Specialty Start Date End Date Ilya Gusman MD [address] [place] [phone] PCP - General 05/14/17 [facility] 09/01/25 documented as of this encounter
--- OUTSIDE RECORDS SUMMARY | 2025-09-23 20:54 | XMS_ITS | Encounter Summary ---
Author Organization [facility] ystem Address [address] [place] [address] Phone Care Team Providers Care Ad Writer Name Role Phone Ilya Gusman MD Primary Care Provider [phone] Encounter Details Date Type Department Care Team (Late st Contact Info) Description 09/15/2020 Scanned Document [facility] - Health Information Department 143 [place] [address] Scan, No Provider Available [address] [facility] [place] [address] <No scans attached> Social History Tobacco Use [...] Description 10/06/2025 10:45 AM EST Office Visit [facility] - Internal Medicine [address] [place] [phone] Ilya Gusman MD [address] [place] [phone] Christophe Dailey MD [address] [place] [phone] 01/18/2026 1:00 PM EST Office Visit [facility] [address] [place] [address] Porsha Marsh CNP [address] [place] [address] 02/22/2026 11:00 AM EDT Office Visit [facility] [address] [place] [address] [address] [place] [phone] Alonso Bae MD [address] [place] [address] [address] [place] [address] 07/17/2026 2:00 PM EDT Office Visit [facility] - Internal Medicine [address] [place] [phone] Ilya Gusman MD [address] [place] [phone] 07/19/2026 11:40 AM EDT Office Visit [facility] [address] [place] [address] Yesi Perez MD [address] [place] [address] documented as of this encounter Visit Diagnoses [...] documented as of this encounter Care Teams Ad Writer Relationship Specialty Start Date End Date Ilya Gusman MD [address] [place] [address] [phone] PCP - General 05/14/17 [facility] 09/01/25 documented as of this encounter
--- OUTSIDE RECORDS SUMMARY | 2025-09-23 20:54 | XMS_ITS | Encounter Summary ---
Author Organization [facility] ystem Address [address] [place] [address] Phone Care Team Providers Care Optical Store Manager Name Role Phone Ilya Gusman MD Primary Care Provider Encounter Details Date Type Department Care Team (Late Contact Info) Description 01/22/2021 Orders Only [facility] - Health Information Department 143 [place] [address] Scan, No Provider Available [address] [facility] [place] [address] Social History Tobacco Use Types Packs/Day Years [...] 10:45 AM EST Office Visit [facility] - Internal Medicine [address] [place] [address] [phone] Ilya Gusman MD [address] [place] [phone] Christophe Dailey MD [address] [place] [phone] 01/18/2026 1:00 PM EST Office Visit [facility] [address] [place] [address] Porsha Marsh, MARILIA [address] [place] [address] 02/22/2026 11:00 AM EDT Office Visit [facility] [address] [place] [address] [address] [place] [phone] Alonso Bae MD [address] [place] [address] [address] [place] [address] 07/17/2026 2:00 PM EDT Office Visit [facility] - Internal Medicine [address] [place] [phone] Ilya Gusman MD [address] [place] [phone] 07/19/2026 11:40 AM EDT Office Visit [facility] [address] [place] [address] Yesi Perez MD [address] [place] [address] documented as of this encounter Procedures Procedure Name Priority Date/Time Associated Diagnosis Comments ECG 12-LEAD Today 01/01/2021 documented in this encounter Results * ECG (01/01/2021) us No Provider Available Scan ECG ORDERABLES [...] documented as of this encounter Care Teams Optical Store Manager Relationship Specialty Start Date End Date Ilya Gusman MD [address] [place] [phone] PCP - General 05/14/17 [facility] 09/01/25 documented as of this encounter
--- OUTSIDE RECORDS SUMMARY | 2025-09-23 20:54 | XMS_ITS | Encounter Summary ---
Author Organization [facility] ystem Address [address] [place] [address] Phone Care Team Providers Care Fumigator And Sterilizer Name Role Phone Ilya Gusman MD Primary Care Provider [phone] Encounter Details Date Type Department Care Team (Late Contact Info) Description 02/05/2021 Orders Only [facility] - Health Information Department 143 [place] [address] Scan, No Provider Available [address] [facility] [place] [address] Social History Tobacco Use Types Packs/Day Years [...] 10/06/2025 10:45 AM EST Office Visit [facility] - Internal Medicine [address] [place] [address] [phone] Ilya Gusman MD [address] [place] [phone] Christophe Dailey MD [address] [place] [phone] 01/18/2026 1:00 PM EST Office Visit [facility] [address] [place] [address] Porsha Marsh CNP [address] [place] [address] 02/22/2026 11:00 AM EDT Office Visit [facility] [address] [place] [address] [address] [place] [phone] Alonso Bae MD [address] [place] [address] [address] [place] [address] 07/17/2026 2:00 PM EDT Office Visit [facility] - Internal Medicine [address] [place] [phone] Ilya Gusman MD [address] [place] [phone] 07/19/2026 11:40 AM EDT Office Visit [facility] [address] [place] [address] Yesi Perez MD [address] [place] [address] documented as of this encounter Procedures Procedure Name Priority Date/Time Associated Diagnosis Comments XR CHEST 1 VW Routine 02/01/2021 documented in this encounter Results * X-ray chest 1 view (02/01/2021) Anatomical Region Laterality Modality Body Radiographic Carmelina [...] documented as of this encounter Care Teams Fumigator And Sterilizer Relationship Specialty Start Date End Date Ilya Gusman MD [address] [place] [phone] PCP - General 05/14/17 [facility] 09/01/25 documented as of this encounter
--- OUTSIDE RECORDS SUMMARY | 2025-09-23 20:55 | XMS_ITS | Encounter Summary ---
[facility] Address [address] [place] [address] Phone Care Team Providers Care Road Grader Operator Name Role Phone Ilya Gusman MD Primary Care Provider [phone] Reason for Visit * Reason Comments Med Refill Encounter Details Date Type Department Care Team (Late Contact Info) Description 03/19/2018 Refill [facility] - Internal Medicine [address] [place] [phone] Ilya Gusman MD [address] [place] [address] [phone] Med Refill Social History Tobacco Use Types [...] AM EST Office Visit [facility] - Internal Medicine [address] [place] [phone] Ilya Gusman MD [address] [place] [phone] Christophe Dailey MD [address] [place] [phone] 01/18/2026 1:00 PM EST Office Visit [facility] [address] [place] [address] Porsha Marsh, DISPATCH MACHINE RUNNER [address] [place] [address] 02/22/2026 11:00 AM EDT Office Visit [facility] [address] [place] [address] [address] [place] [phone] Alonso Bae MD [address] [place] [address] [address] [place] [address] 07/17/2026 2:00 PM EDT Office Visit [facility] - Internal Medicine [address] [place] [phone] Ilya Gusman MD [address] [place] [phone] 07/19/2026 11:40 AM EDT Office Visit [facility] [address] [place] [address] Yesi Perez MD [address] [place] [address] documented as of this encounter Visit Diagnoses [...] documented as of this encounter Care Teams Road Grader Operator Relationship Specialty Start Date End Date Ilya Gusman MD [address] [place] [phone] PCP - General 05/14/17 [facility] 09/01/25 documented as of this encounter
--- OUTSIDE RECORDS SUMMARY | 2025-09-23 20:55 | XMS_ITS | Encounter Summary ---
[facility] Address [address] [place] [address] Phone Care Team Providers Care Cytogenetics Technologist Name Role Phone Ilya Gusman MD Primary Care Provider [phone] Encounter Details Date Type Department Care Team (Late st Contact Info) Description 05/09/2018 Orders Only [address] [phone] Non-Provider, Historical, RN Social History Tobacco Use Types Packs/Day [...] [facility] - Internal Medicine [address] [place] [phone] Ilya Gusman MD [address] [place] [phone] Christophe Dailey MD [address] [place] [phone] 01/18/2026 1:00 PM EST Office Visit [facility] [address] [place] [address] 1 [place] [address] Porsha Marsh, COMMERCIAL SALES DIRECTOR [address] [place] [address] 02/22/2026 11:00 AM EDT Office Visit [facility] [address] [place] [address] [address] [place] [phone] Alonso Bae MD [address] [place] [address] [address] [place] [address] 07/17/2026 2:00 PM EDT Office Visit [facility] - Internal Medicine [address] [place] [phone] Ilya Gusman MD [address] [place] [phone] 07/19/2026 11:40 AM EDT Office Visit [facility] [address] [place] [address] Yesi Perez MD [address] [place] [phone] documented as of this encounter Procedures Procedure Name Priority Date/Time Associated Diagnosis Comments MR MCKINNON PROCEDURES Routine 01/31/2012 documented in this encounter Results * MR Mckinnon Procedures (01/31/2012) us Historical Non-Provider RN IN CLINIC/BEDSIDE ORD ERABLES Edited Result - Final documented in this encounter [...] documented as of this encounter Care Teams Cytogenetics Technologist Relationship Specialty Start Date End Date Ilya Gusman MD [address] [place] [address] [phone] PCP - General 05/14/17 [facility] 09/01/25 documented as of this encounter
--- OUTSIDE RECORDS SUMMARY | 2025-09-23 20:55 | XMS_ITS | Encounter Summary ---
Author Organization [facility] Address [address] [place], [place] [id number] Care Team Providers Care Incident Response Analyst Name Role Phone Solis Encarnacion MD Unavailable [phone] Ilya Gusman MD Primary Care Provider [phone] Encounter Details Date Type Department Care Team (Late st Contact Info) Description 06/07/2024 Lab [facility] Orders Tc Alvarado MD [address] [place] [address] Social History Tobacco Use Types Packs/Day Years [...] Procedure Name Priority Date/Time Associated Diagnosis Comments CULTURE, STOOL Routine 06/09/2024 9:00 PM EDT SHIGA TOXIN, HEMORRHAGIC E. COLI Routine 06/09/2024 9:00 PM EDT CULTURE, BLOOD Routine 06/07/2024 4:55 PM EDT CULTURE, BLOOD Routine 06/07/2024 4:35 PM EDT documented in this encounter Results * Shiga Toxin, Hemorrhagic E. coli (06/09/2024 9:00 PM EDT) Shiga-toxin I Negative Negative BG 06/12/2024 12:26 AM EDT [facility] Comment:This EIA assay detec ts the most common Shiga toxin produced by E. coli 0157:H7 in addition to other serotypes. Shiga-toxin II Negative Negative BG 06/12/2024 12:26 AM EDT [facility] Comment:This EIA assay detec ts the most common Shiga toxin produced by E. coli 0157:H7 in addition to other serotypes. Stool STOOL SPECIMEN / Unknown 06/09/2024 9:00 PM EDT 06/10/2024 11:14 AM EDT Jeanine Reyna MD MICROBIOLOGY - GENERAL ORDERAB LES Final Result Performing Organization Address City/[facility]/ZIP Co de Phone Number [facility] [address] [place] [address], * Culture, Stool (06/09/2024 9:00 PM EDT) Culture No Salmonella,Shig bella,Campylobac ter,Aeromonas, Plesiomonas Isolated. Normal Stool Camila Present. BG 06/13/2024 7:34 AM EDT [facility] Stool STOOL SPECIMEN / Unknown 06/09/2024 9:00 PM EDT 06/10/2024 11:14 AM EDT Jeanine Reyna MD MICROBIOLOGY - GENERAL ORDERAB LES Final Result Performing Organization Address City/[facility]/ZIP Co de Phone Number [facility] [address] [place] [address], [place] [phone] * Culture, Blood (06/07/2024 4:55 PM EDT) Culture No growth after 5 days BG 06/12/2024 8:01 PM EDT [facility] Blood VENOUS STRUCTURE / Unknown 06/07/2024 4:55 PM EDT 06/07/2024 7:29 PM EDT us Tc Alvarado MD MICROBIOLOGY - GENERAL ORDERABL ES Final Result Performing Organization Address City/[facility]/ZIP Co de Phone Number [facility] [address] [place] [address], [place] [phone] * Culture, Blood (06/07/2024 4:35 PM EDT) Culture No growth after 5 days BG 06/12/2024 8:01 PM EDT [facility] Blood VENOUS STRUCTURE / Unknown 06/07/2024 4:35 PM EDT 06/07/2024 7:29 PM EDT us Tc Alvarado MD MICROBIOLOGY - GENERAL ORDERABL ES Final Result Performing Organization Address [facility] Co de Phone Number [facility] [address] [place] [address], [place] [phone] documented in this encounter Visit Diagnoses Not on filedocumented in this encounter Additional Health Concerns Infection Onset Date Last Indicated Resolved Time Rule-Out Respiratory Virus 03/09/2025 03/09/2025 0 03/09/2025 1:55 PM EDT Rule-Out Respiratory Virus 06/22/2025 06/22/2025 0 06/22/2025 2:14 AM EDT Rule-Out Respiratory Virus 07/02/2025 07/02/2025 0 07/02/2025 9:23 AM EDT Rule-Out Respiratory Virus 09/22/2025 09/22/2025 1 11:36 AM EDT documented as of this encounter Care Teams Incident Response Analyst Relationship Specialty Start Date End Date Ilya Gusman MD [address] [place] [address] PCP - General 02/12/24 Solis Encarnacion MD [address] [facility] 3 [place] [address] Cardiac Electrophysiology 04/24/2402/22 documented as of this encounter
--- OUTSIDE RECORDS SUMMARY | 2025-09-23 20:55 | XMS_ITS | Encounter Summary ---
Author Organization [facility] Address [address] [place] [address] Phone Care Team Providers Care Nurse Infection Control Name Role Phone Ilya Gusman MD Primary Care Provider [phone] Encounter Details Date Type Department Care Team (Late Contact Info) Description 08/10/2018 Scanned Document [facility] - Health Information Department [address] [place] [address] Scan, No Provider Available [address] [place] [address] [place] [address] <No scans attached> Social History Tobacco Use [...] AM EST Office Visit [facility] - Internal Medicine [address] [place] [phone] Ilya Gusman MD [address] [place] [phone] Christophe Dailey MD [address] [place] [phone] 01/18/2026 1:00 PM EST Office Visit [facility] [address] [place] [address] Porsha Marsh, ELECTRICAL SIGN WIRER [address] [place] [address] 02/22/2026 11:00 AM EDT Office Visit [facility] [address] [place] [address] [address] [place] [phone] Alonso Bae MD [address] [place] [address] 2 [place] [address] 07/17/2026 2:00 PM EDT Office Visit [facility] - Internal Medicine [address] [place] [phone] Ilya Gusman MD [address] [place] [phone] 07/19/2026 11:40 AM EDT Office Visit [facility] [address] [place] [address] Yesi Perez MD [address] [place] [address] documented as of this encounter Visit Diagnoses [...] documented as of this encounter Care Teams Nurse Infection Control Relationship Specialty Start Date End Date Ilya Gusman MD [address] [place] [phone] PCP - General 05/14/17 [facility] 09/01/25 documented as of this encounter
--- OUTSIDE RECORDS SUMMARY | 2025-09-23 20:55 | XMS_ITS | Encounter Summary ---
[facility] Organization [facility] Address [address] [place] [address] Phone Care Team Providers Care Grease Man Name Role Phone Ilya Gusman MD Primary Care Provider [phone] Reason for Referral * Consultation (1 Month) - Closed Specialty Diagnoses / Procedures Referred By London blankenship Referred To Contact Ophthalmology Diagnoses Encounter for eye exam Ilya Gusman MD [address] [place] [phone] Phone: tel: fax: Alvaro Estes MD Phone: tel: fax: Referral ID Status Reason Start Date Expiration Date V isits Requested Visits Authorized [id number] Closed Specialty Services Required 04/02/2018 04/02/2019 12 12 Encounter Details Date Type Department Care Team ([facility] st Contact Info) Description 04/12/2018 Orders Only [address] [phone] Ilya Gusman MD [address] [place] [phone] Encounter for eye exam (Primary Dx) Social History Tobacco Use Types [...] Description 10/06/2025 10:45 AM EST Office Visit [facility] - Internal Medicine [address] [place] [phone] Ilya Gusman MD [address] [place] [phone] Christophe Dailey MD [address] [place] [phone] 01/18/2026 1:00 PM EST Office Visit [facility] 1 [place] [address] Porsha Marsh, WOODWIND INSTRUMENTS INSPECTOR [address] [place] [address] 02/22/2026 11:00 AM EDT Office Visit [facility] [address] [place] [phone] Alonso Bae MD [facility] [address] [place] [address] 07/17/2026 2:00 PM EDT Office Visit [facility] - Internal Medicine [address] [place] [phone] Ilya Gusman MD [address] [place] [phone] 07/19/2026 11:40 AM EDT Office Visit [facility] [address] [address] Yesi Perez MD 70 [place] [address] Scheduled Referrals Name Type Priority Associated Diagnoses Orde r Schedule Referral Ophthalmology-[facility] Referral Routine Encounter for eye exam Ordered: 04/12/2018 documented as of this encounter Visit Diagnoses Diagnosis Encounter for eye exam- Primary documented in this encounter Additional Health [...] documented as of this encounter Care Teams Grease Man Relationship Specialty Start Date End Date Ilya Gusman MD [address] [place] [phone] PCP - General 05/14/17 [facility] 09/01/25 documented as of this encounter
--- OUTSIDE RECORDS SUMMARY | 2025-09-23 20:55 | XMS_ITS | Encounter Summary ---
Author Organization [facility] Address [address] [place] [address] Phone Care Team Providers Care Pig Lead Melter Helper Name Role Phone Ilya Gusman MD Primary Care Provider [phone] Reason for Visit * Reason Comments Med Refill Encounter Details Date Type Department Care Team (Late Contact Info) Description 06/23/2023 Refill [facility] - Internal Medicine [address] [place] [phone] Lilliam Dejesus, CHUMMER [address] [place] [address] [phone] Med Refill Social History Tobacco Use Types [...] [facility] - Internal Medicine [address] [place] [phone] Ilya Gusman MD [address] [place] [phone] Christophe Dailey MD [address] [place] [phone] 01/18/2026 1:00 PM EST Office Visit [facility] [address] [place] [address] Porsha Marsh CNP [address] [place] [address] 02/22/2026 11:00 AM EDT Office Visit [facility] [address] [place] [address] [address] [place] [phone] Alonso Bae MD [address] [place] [address] [address] [place] [address] 07/17/2026 2:00 PM EDT Office Visit [facility] - Internal Medicine [address] [place] [phone] Ilya Gusman MD [address] [place] [phone] 07/19/2026 11:40 AM EDT Office Visit [facility] [address] [place] [address] Yesi Perez MD [address] [place] [address] documented as of this encounter Visit Diagnoses Not on filedocumented in this encounter Additional Health Concerns Infection Onset Date Last Indicated Resolved Time C difficile Rule-Out 12/05/2023 12/05/20232 024 10:39 AM EST C difficile Rule-Out 12/20/2023 12/21/2023 024 1:20 PM EST C difficile Rule-Out 11/01/2024 11/02/2024 024 9:43 AM EST Assessment Noted Time PHQ-9 Depression Total Score: 9 06/05/20 20 9:52 AM EDT documented as of this encounter Care Teams Pig Lead Melter Helper Relationship Specialty Start Date End Date Ilya Gusman MD [address] [place] [address] [phone] PCP - General 05/14/17 [facility] 09/01/25 documented as of this encounter
--- OUTSIDE RECORDS SUMMARY | 2025-09-23 20:55 | XMS_ITS | Encounter Summary ---
Author Organization [facility] Address [address] [place] [address] Phone Care Team Providers Care Documentation Improvement Specialist Name Role Phone Ilya Gusman MD Primary Care Provider [phone] Reason for Visit * Reason Onset Date Comments Med Refill 07/18/2023 Encounter Details Date Type Department Care Team ([facility] Contact Info) Description 07/18/2023 Refill [facility] - Internal Medicine [address] [place] [phone] Mango Florez MD [address] [place] [address] [phone] Med Refill Social History Tobacco Use Types [...] [facility] - Internal Medicine [address] [place] [phone] Ilya Gusman MD [address] [place] [phone] Christophe Dailey MD [address] [place] [phone] 01/18/2026 1:00 PM EST Office Visit [facility] [address] [place] [address] Porsha Marsh, RETAIL ADVISOR [address] [place] [address] 02/22/2026 11:00 AM EDT Office Visit [facility] [address] [place] [address] [address] [place] [phone] Alonso Bae MD [address] [place] [address] [address] [place] [address] 07/17/2026 2:00 PM EDT Office Visit [facility] - Internal Medicine [address] [place] [phone] Ilya Gusman MD [address] [place] [phone] 07/19/2026 11:40 AM EDT Office Visit [facility] [address] [place] [address] Yesi Perez MD [address] [place] [address] documented as of this encounter Visit Diagnoses [...] documented as of this encounter Care Teams Documentation Improvement Specialist Relationship Specialty Start Date End Date Ilya Gusman MD [address] [place] [address] [phone] PCP - General 05/14/17 [facility] 09/01/25 documented as of this encounter
--- OUTSIDE RECORDS SUMMARY | 2025-09-23 20:55 | XMS_ITS | Encounter Summary ---
Author Organization [facility] Address [address] [place] [address] Phone Care Team Providers Care Inclusion Manager Name Role Phone Ilya Gusman MD Primary Care Provider [phone] Reason for Visit * Reason Onset Date Comments Med Refill 07/07/2023 Encounter Details Date Type Department Care Team ([facility] Contact Info) Description 07/07/2023 Refill [facility] - Internal Medicine [address] [place] [address] [phone] Christophe Dailey MD [address] [place] [phone] Med Refill Social History Tobacco Use [...] [facility] - Internal Medicine [address] [place] [phone] Ilya Gusman MD [address] [place] [phone] Christophe Dailey MD [address] [place] [phone] 01/18/2026 1:00 PM EST Office Visit [facility] [address] [place] [address] Porsha Marsh, [address] [address] 02/22/2026 11:00 AM EDT Office Visit [facility] [address] [place] [address] [address] [place] [phone] Alonso Bae MD [address] [place] [address] [address] [place] [address] 07/17/2026 2:00 PM EDT Office Visit [facility] - Internal Medicine [address] [place] [phone] Ilya Gusman MD [address] [place] [phone] 07/19/2026 11:40 AM EDT Office Visit [facility] [address] [place] [address] Yesi Perez MD [address] [place] [address] documented as of this encounter Visit Diagnoses [...] documented as of this encounter Care Teams Inclusion Manager Relationship Specialty Start Date End Date Ilya Gusman MD [address] [place] [address] [phone] PCP - General 05/14/17 [facility] 09/01/25 documented as of this encounter
--- OUTSIDE RECORDS SUMMARY | 2025-09-23 20:55 | XMS_ITS | Encounter Summary ---
[facility] Address [address] [place] [address] Phone Care Team Providers Care Net Software Developer Name Role Phone Ilya Gusman MD Primary Care Provider [phone] Encounter Details Date Type Department Care Team (Late Contact Info) Description 07/09/2018 Scanned Document [facility] - Health Information Department [address] [place] [phone] Scan, No Provider Available [address] [place] [address] [place] [address] <No scans attached> Social History Tobacco Use [...] Description 10/06/2025 10:45 AM EST Office Visit [facility] - Internal Medicine [address] [place] [phone] Ilya Gusman MD [address] [place] [phone] Christophe Dailey MD [address] [place] [phone] 01/18/2026 1:00 PM EST Office Visit [facility] [address] [place] [address] Porsha Marsh, APPLICATIONS PACKAGER 70 [place] [address] 02/22/2026 11:00 AM EDT Office Visit [facility] [address] [place] [address] [address] [place] [phone] Alonso Bae MD [address] [place] [address] 2 [place] [address] 07/17/2026 2:00 PM EDT Office Visit [facility] - Internal Medicine [address] [place] [phone] Ilya Gusman MD [address] [place] [phone] 07/19/2026 11:40 AM EDT Office Visit [facility] [address] [place] [address] Yesi Perez MD [address] [place] [address] documented as of this encounter Visit Diagnoses [...] documented as of this encounter Care Teams Net Software Developer Relationship Specialty Start Date End Date Ilya Gusman MD [address] [place] [address] [phone] PCP - General 05/14/17 [facility] 09/01/25 documented as of this encounter
--- OUTSIDE RECORDS SUMMARY | 2025-09-23 20:55 | XMS_ITS | Encounter Summary ---
Author Organization [facility] Address [address] [place] [address] Phone Care Team Providers Care Merchant Banker Name Role Phone Ilya Gusman MD Primary Care Provider [phone] Encounter Details Date Type Department Care Team (Late Contact Info) Description 08/20/2018 Orders Only [facility] - Health Information Department [address] [place] [phone] Scan, No Provider Available [address] [place] [address] [place] [address] Social History Tobacco Use Types Packs/Day Years [...] 10:45 AM EST Office Visit [facility] - Internal Medicine [address] [place] [address] [phone] Ilya Gusman MD [address] [place] [phone] Christophe Dailey MD [address] [place] [phone] 01/18/2026 1:00 PM EST Office Visit [facility] [address] [place] [phone] Porsha Marsh, GLASS MAKER [address] [place] [address] 02/22/2026 11:00 AM EDT Office Visit [facility] [address] [place] [address] [address] [place] [phone] Alonso Bae MD [address] [place] [address] [address] [place] [address] 07/17/2026 2:00 PM EDT Office Visit [facility] - Internal Medicine [address] [place] [phone] Ilya Gusman MD [address] [place] [phone] 07/19/2026 11:40 AM EDT Office Visit [facility] [address] [place] [address] Yesi Perez MD [address] [place] [address] documented as of this encounter Procedures Procedure Name Priority Date/Time Associated Diagnosis Comments XR CHEST 2 VW Routine 01/28/2018 documented in this encounter Results * X-ray chest 2 views (01/28/2018) Anatomical Region Laterality Modality Body Radiographic Carmelina [...] documented as of this encounter Care Teams Merchant Banker Relationship Specialty Start Date End Date Ilya Gusman MD [address] [place] [phone] PCP - General 05/14/17 [facility] 09/01/25 documented as of this encounter
--- OUTSIDE RECORDS SUMMARY | 2025-09-23 20:55 | XMS_ITS | Encounter Summary ---
Author Organization [facility] Address [address] [place] [address] Phone Care Team Providers Care Endoscopy Support Specialist Name Role Phone Ilya Gusman MD Primary Care Provider [phone] Encounter Details Date Type Department Care Team (Late st Contact Info) Description 05/14/2023 Scanned Document [facility] - Health Information Department [address] [place], [place] [phone] Scan, No Provider Available [address] [facility] [place] [address] <No scans attached> Social History Tobacco Use [...] suspected to have Coronavirus/COVID-19? No / Unsure 04/28/2023 1:26 PM EDT documented as of this encounter Plan of Treatment Upcoming Encounters Date Type Department Care Team (Late st Contact Info) Description 10/06/2025 10:45 AM EST Office Visit [facility] - Internal Medicine [address] [place] [phone] Ilya Gusman MD [address] [place] [phone] Christophe Dailey MD [address] [place] [phone] 01/18/2026 1:00 PM EST Office Visit [facility] [address] [place] [address] Porsha Marsh, MARILIA [address] [place] [address] 02/22/2026 11:00 AM EDT Office Visit [facility] [address] [place] [address] [address] [place] [phone] Alonso Bae MD [address] [place] [address] [address] [place] [address] 07/17/2026 2:00 PM EDT Office Visit [facility] - Internal Medicine [address] [place] [phone] Ilya Gusman MD [address] [place] [phone] 07/19/2026 11:40 AM EDT Office Visit [facility] [address] [place] [address] Yesi Perez MD [address] [place] [address] documented as of this encounter Visit Diagnoses [...] documented as of this encounter Care Teams Endoscopy Support Specialist Relationship Specialty Start Date End Date Ilya Gusman MD [address] [place] [phone] PCP - General 05/14/17 [facility] 09/01/25 documented as of this encounter
--- OUTSIDE RECORDS SUMMARY | 2025-09-23 20:55 | XMS_ITS | Encounter Summary ---
Author Organization [facility] Address [address] [place] [address] Phone Care Team Providers Care Discharge Planner Name Role Phone Ilya Gusman MD Primary Care Provider [phone] Reason for Referral * Consultation (1 Month) - Closed Specialty Diagnoses / Procedures Referred By London t Referred To Contact Orthopedics Diagnoses Hand injury, left, initial encounter Ilya Gusman MD [address] [place] [phone] Phone: tel: fax: Tacho Faye MD [address] [place] [address] Phone: tel: fax: Referral ID Status Reason Start Date Expiration Date V isits Requested Visits Authorized [id number] Closed Specialty Services Required 07/13/2018 07/13/2019 12 12 Encounter Details Date Type Department Care Team ([facility] st Contact Info) Description 07/13/2018 Orders Only [address] [phone] Ilya Gusman MD [address] [place] [address] [phone] Hand injury, left, initial encounter (Primary Dx) Social History Tobacco Use Types [...] 10/06/2025 10:45 AM EST Office Visit [facility] - Internal Medicine [address] [place] [phone] Ilya Gusman MD [address] [place] [address] [phone] Christophe Dailey MD [address] [place] [phone] 01/18/2026 1:00 PM EST Office Visit [facility] [address] [address] Porsha Marsh, SHOE DYER 70 [place] [address] 02/22/2026 11:00 AM EDT Office Visit [facility] [address] [place] [phone] Alonso Bae MD [address] [place] [address] [address] [place] [address] 07/17/2026 2:00 PM EDT Office Visit [facility] - Internal Medicine [address] [place] [phone] Ilya Gusman MD [address] [place] [phone] 07/19/2026 11:40 AM EDT Office Visit [facility] [address] [place] [address] Yesi Perez MD 70 [place] [address] Scheduled Referrals Name Type Priority Associated Diagnoses Orde r Schedule Referral [facility] Outpatient Referral Routine Hand injury, left, initial encounter Ordered: 07/13/2018 documented as of this encounter Visit Diagnoses Diagnosis Hand injury, left, initial encounter- Primary documented in this encounter Additional Health [...] documented as of this encounter Care Teams Discharge Planner Relationship Specialty Start Date End Date Ilya Gusman MD [address] [place] [phone] PCP - General 05/14/17 [facility] 09/01/25 documented as of this encounter
--- OUTSIDE RECORDS SUMMARY | 2025-09-23 20:55 | XMS_ITS | Encounter Summary ---
Author Organization [facility] ystem Address [address] [place] [address] Phone Care Team Providers Care Office Receptionist Name Role Phone Ilya Gusman MD Primary Care Provider [phone] Encounter Details Date Type Department Care Team (Late Contact Info) Description 01/01/2021 Scanned Document [facility] - Health Information Department [address] [place], [place] [phone] Scan, No Provider Available [address] [place] [address] [place] [address] <No scans attached> Social History Tobacco Use [...] Office Visit [facility] - Internal Medicine [address] [place] [place] [phone] Ilya Gusman MD [address] [place] [phone] Christophe Dailey MD [address] [place] [phone] 01/18/2026 1:00 PM EST Office Visit [facility] [address] [place] [address] Porsha Marsh, MARILIA [address] [place] [address] 02/22/2026 11:00 AM EDT Office Visit [facility] [address] [place] [address] [address] [place] [phone] Alonso Bae MD [address] [place] [address] [address] [place] [address] 07/17/2026 2:00 PM EDT Office Visit [facility] - Internal Medicine [address] [place] [place] [phone] Ilya Gusman MD [address] [place] [phone] 07/19/2026 11:40 AM EDT Office Visit [facility] [address] [place] [address] Yesi Perez MD [address] [place] [address] documented as of this encounter Visit Diagnoses [...] documented as of this encounter Care Teams Office Receptionist Relationship Specialty Start Date End Date Ilya Gusman MD [address] [place] [address] [phone] PCP - General 05/14/17 [facility] 09/01/25 documented as of this encounter
--- OUTSIDE RECORDS SUMMARY | 2025-09-23 20:55 | XMS_ITS | Encounter Summary ---
Author Organization [facility] ystem Address [address] [place] [address] Phone Care Team Providers Care Travel Freight And Passenger Agent Name Role Phone Ilya Gusman MD Primary Care Provider [phone] Encounter Details Date Type Department Care Team (Late Contact Info) Description 01/02/2021 Scanned Document [facility] - Health Information Department [address] [place], [place] [phone] Scan, No Provider Available [address] [place] [address] [place] [address] <No scans attached> Social History Tobacco Use [...] Description 10/06/2025 10:45 AM EST Office Visit [facility] - Internal Medicine [address] [place] [phone] Ilya Gusman MD [address] [place] [phone] Christophe Dailey MD [address] [place] [phone] 01/18/2026 1:00 PM EST Office Visit [facility] [address] [place] [phone] Porsha Marsh, MARILIA [address] [place] [address] 02/22/2026 11:00 AM EDT Office Visit [facility] [address] [place] [address] [address] [place] [phone] Alonso Bae MD [address] [place] [address] [address] [place] [address] 07/17/2026 2:00 PM EDT Office Visit [facility] - Internal Medicine [address] [place] [phone] Ilya Gusman MD [address] [place] [phone] 07/19/2026 11:40 AM EDT Office Visit [facility] [address] [place] [address] Yesi Perez MD [address] [place] [address] documented as of this encounter Visit Diagnoses [...] documented as of this encounter Care Teams Travel Freight And Passenger Agent Relationship Specialty Start Date End Date Ilya Gusman MD [address] [place] [address] [phone] PCP - General 05/14/17 [facility] 09/01/25 documented as of this encounter
--- OUTSIDE RECORDS SUMMARY | 2025-09-23 20:55 | XMS_ITS | Encounter Summary ---
Author Organization [facility] Address [address] [place] [address] Phone Care Team Providers Care Mechanic Chief Name Role Phone Ilya Gusman MD Primary Care Provider [phone] Reason for Visit * Reason Onset Date Comments Med Refill 03/18/2023 Encounter Details Date Type Department Care Team ([facility] Contact Info) Description 03/18/2023 Refill [facility] - Internal Medicine [address] [place] [address] [phone] Ilya Gusman MD [address] [place] [phone] Med Refill Social History Tobacco Use [...] Telephone Encounter - Sarahy Henderson PhT - 03/18/2023 4:14 PM EDT Albuterol 01/22/23 1w1 Last OV with PCP/APC: 01/23/23 Future Appointments Date Time Provider Department Center 03/24/2023 2:00 PM MD PAOLA Varma PhT REFILL SPECIALIST documented in this encounter Plan of Treatment Upcoming Encounters Date Type Department Care Team (Late st Contact Info) Description 10/06/2025 10:45 AM EST Office Visit [facility] - Internal Medicine [address] [place] [phone] Ilya Gusman MD [address] [place] [phone] Christophe Dailey MD [address] [place] [address] [phone] 01/18/2026 1:00 PM EST Office Visit [facility] 70 [facility] 1 [place] [address] Porsha Marsh, SENIOR AUDITOR [address] [place] [address] 02/22/2026 11:00 AM EDT Office Visit [facility] [address] [place] [address] [address] [place] [phone] Alonso Bae MD [address] [place] [address] [address] [place] [address] 07/17/2026 2:00 PM EDT Office Visit [facility] - Internal Medicine [address] [place] [phone] Ilya Gusman MD [address] [place] [phone] 07/19/2026 11:40 AM EDT Office Visit [facility] [address] [address] Yesi Perez MD 70 [place] [address] documented as of this encounter Visit Diagnoses [...] documented as of this encounter Care Teams Mechanic Chief Relationship Specialty Start Date End Date Ilya Gusman MD [address] [place] [phone] PCP - General 05/14/17 [facility] 09/01/25 documented as of this encounter
--- OUTSIDE RECORDS SUMMARY | 2025-09-23 20:55 | XMS_ITS | Encounter Summary ---
Author Organization [facility] Address [address] [place] [address] Phone Care Team Providers Care Reverser Name Role Phone Ilya Gusman MD Primary Care Provider [phone] Encounter Details Date Type Department Care Team (Late Contact Info) Description 05/19/2018 Scanned Document [facility] - Health Information Department [address] [place] [phone] Scan, No Provider Available [address] [place] [address] [place] [address] <No scans attached> Social History Tobacco Use [...] 10:45 AM EST Office Visit [facility] - Internal Medicine [address] [place] [phone] Ilya Gusman MD [address] [place] [phone] Christophe Dailey MD [address] [place] [phone] 01/18/2026 1:00 PM EST Office Visit [facility] [address] [place] [address] Porsha Marsh, RECREATION ATTENDANT SUPERVISOR 70 [place] [address] 02/22/2026 11:00 AM EDT Office Visit [facility] [address] [place] [address] [address] [place] [phone] Alonso Bae MD [address] [place] [address] 2 [place] [address] 07/17/2026 2:00 PM EDT Office Visit [facility] - Internal Medicine [address] [place] [phone] Ilya Gusman MD [address] [place] [phone] 07/19/2026 11:40 AM EDT Office Visit [facility] [address] [place] [address] Yesi Perez MD [address] [place] [address] documented as of this encounter Visit Diagnoses [...] documented as of this encounter Care Teams Reverser Relationship Specialty Start Date End Date Ilya Gusman MD [address] [place] [address] [phone] PCP - General 05/14/17 [facility] 09/01/25 documented as of this encounter
--- OUTSIDE RECORDS SUMMARY | 2025-09-23 20:55 | XMS_ITS | Encounter Summary ---
Author Organization [facility] Address [address] [place] [address] Phone Care Team Providers Care Insurance Salesperson Name Role Phone Ilya Gusman MD Primary Care Provider [phone] Reason for Visit * Reason Onset Date Comments Med Refill 07/01/2023 Encounter Details Date Type Department Care Team (Late st Contact Info) Description 07/01/2023 Telephone [facility] - Internal Medicine [address] [place] [phone] Ilya Gusman MD [address] [place] [phone] Med Refill Social History Tobacco Use [...] encounter Miscellaneous Notes * Telephone Encounter - Beth Donnelly RN - 07/01/2023 3:08 PM EDT Reviewed message with patient. Pt picked up medication today, was unaware of refill. Beth Donnelly RN [facility] IM * Telephone Encounter - Lilliam Dejesus CNP - 07/01/2023 2:34 PM EDT Please call the patient to see why this is being requested again. Appears it was sent 06/24/[address] Gusman. documented in this encounter Plan of Treatment Upcoming Encounters Date Type Department Care Team (Late st Contact Info) Description 10/06/2025 10:45 AM EST Office Visit [facility] - Internal Medicine [address] [place] [phone] Ilya Gusman MD [address] [place] [address] [phone] Christophe Dailey MD [address] [place] [address] [phone] 01/18/2026 1:00 PM EST Office Visit [facility] [address] [address] Porsha Marsh CNP 70 [place] [address] 02/22/2026 11:00 AM EDT Office Visit [facility] [address] [place] [address] [address] [place] [phone] Alonso Bae MD [address] [place] [address] [address] [place] [address] 07/17/2026 2:00 PM EDT Office Visit [facility] - Internal Medicine [address] [place] [phone] Ilya Gusman MD [address] [place] [phone] 07/19/2026 11:40 AM EDT Office Visit [facility] [address] [address] Yesi Perez MD 70 [place] [address] documented as of this encounter Visit Diagnoses [...] as of this encounter Care Teams Insurance Salesperson Relationship Specialty Start Date End Date Ilya Gusman MD [address] [place] [phone] PCP - General 05/14/17 [facility] 09/01/25 documented as of this encounter
--- OUTSIDE RECORDS SUMMARY | 2025-09-23 20:55 | XMS_ITS | Encounter Summary ---
Author Organization [facility] Address [address] [place] [address] Phone Care Team Providers Care Quarter Supervisor Name Role Phone Ilya Gusman MD Primary Care Provider [phone] Reason for Visit * Reason Onset Date Comments Med Refill 04/13/2023 Encounter Details Date Type Department Care Team ([facility] Contact Info) Description 04/13/2023 Refill [facility] - Internal Medicine [address] [place] [address] [phone] Christophe Dailey MD [address] [place] [phone] Med Refill Social History Tobacco Use [...] suspected to have Coronavirus/COVID-19? No / Unsure 03/29/2023 11:32 AM EDT documented as of this encounter Plan of Treatment Upcoming Encounters Date Type Department Care Team (Late st Contact Info) Description 10/06/2025 10:45 AM EST Office Visit [facility] - Internal Medicine [address] [place] [phone] Ilya Gusman MD [address] [place] [phone] Christophe Dailey MD [address] [place] [phone] 01/18/2026 1:00 PM EST Office Visit [facility] [address] [place] [address] Porsha Marsh, WILDLAND FIRE FIGHTER SPECIALIST 70 [place] [address] 02/22/2026 11:00 AM EDT Office Visit [facility] [address] [place] [address] [address] [place] [phone] Alonso Bae MD [address] [place] [address] [address] [place] [address] 07/17/2026 2:00 PM EDT Office Visit [facility] - Internal Medicine [address] [place] [phone] Ilya Gusman MD [address] [place] [phone] 07/19/2026 11:40 AM EDT Office Visit [facility] [address] [place] [address] Yesi Perez MD 70 [place] [address] documented as of this encounter Visit Diagnoses [...] documented as of this encounter Care Teams Quarter Supervisor Relationship Specialty Start Date End Date Ilya Gusman MD [address] [place] [address] [phone] PCP - General 05/14/17 [facility] 09/01/25 documented as of this encounter
--- OUTSIDE RECORDS SUMMARY | 2025-09-23 20:55 | XMS_ITS | Encounter Summary ---
Author Organization [facility] ystem Address [address] [place] [address] Phone Care Team Providers Care After School Counselor Name Role Phone Ilya Gusman MD Primary Care Provider [phone] Encounter Details Date Type Department Care Team (Late st Contact Info) Description 03/26/2023 Orders Only [facility] - Health Information Department [address] [facility] [address] Scan, No Provider Available [address] [facility] [place] [address] Social History Tobacco Use Types Packs/Day Years [...] 10:45 AM EST Office Visit [facility] - Internal Medicine [address] [place] [phone] Ilya Gusman MD [address] [place] [address] [phone] Christophe Dailey MD [address] [place] [phone] 01/18/2026 1:00 PM EST Office Visit [facility] [address] [place] [phone] Porsha Marsh, CERTIFIED FORKLIFT OPERATOR [address] [place] [address] 02/22/2026 11:00 AM EDT Office Visit [facility] [address] [place] [address] [address] [place] [phone] Alonso Bae MD [address] [place] [address] [address] [place] [address] 07/17/2026 2:00 PM EDT Office Visit [facility] - Internal Medicine [address] [place] [phone] Ilya Gusman MD [address] [place] [phone] 07/19/2026 11:40 AM EDT Office Visit [facility] [address] [place] [address] Yesi Perez MD [address] [place] [address] documented as of this encounter Procedures Procedure Name Priority Date/Time Associated Diagnosis Comments TRANSTHORACIC ECHO (TTE) COMPLETE Routine 03/13/2023 documented in this encounter Results * Transthoracic Echo (TTE) (03/13/2023) us No Provider Available Scan CV ECHO [...] documented as of this encounter Care Teams After School Counselor Relationship Specialty Start Date End Date Ilya Gusman MD [address] [place] [address] [phone] PCP - General 05/14/17 [facility] 09/01/25 documented as of this encounter
--- OUTSIDE RECORDS SUMMARY | 2025-09-23 20:55 | XMS_ITS | Encounter Summary ---
Author Organization [facility] Address [address] [place] [address] Phone Care Team Providers Care Prosthetic Dentist Name Role Phone Ilya Gusman MD Primary Care Provider [phone] Reason for Visit * Reason Comments Med Refill Encounter Details Date Type Department Care Team ([facility] Contact Info) Description 03/31/2023 Refill [facility] - Internal Medicine [address] [place] [address] [phone] Lilliam Dejesus, OCCUPATIONAL THERAPIST ASSISTANTS [address] [place] [address] [phone] Med Refill Social History Tobacco Use Types [...] 10:45 AM EST Office Visit [facility] - Internal Medicine [address] [place] [phone] Ilya Gusman MD [address] [place] [phone] Christophe Dailey MD [address] [place] [phone] 01/18/2026 1:00 PM EST Office Visit [facility] [address] [place] [address] Porsha Marsh, ADMINISTRATIVE SERVICES ASSISTANT [address] [place] [address] 02/22/2026 11:00 AM EDT Office Visit [facility] [address] [place] [address] [address] [place] [phone] Alonso Bae MD [address] [place] [address] [address] [place] [address] 07/17/2026 2:00 PM EDT Office Visit [facility] - Internal Medicine [address] [place] [phone] Ilya Gusman MD [address] [place] [phone] 07/19/2026 11:40 AM EDT Office Visit [facility] [address] [place] [address] Yesi Perez MD [address] [place] [address] documented as of this encounter Visit Diagnoses [...] documented as of this encounter Care Teams Prosthetic Dentist Relationship Specialty Start Date End Date Ilya Gusman MD [address] [place] [phone] PCP - General 05/14/17 [facility] 09/01/25 documented as of this encounter
--- OUTSIDE RECORDS SUMMARY | 2025-09-23 20:55 | XMS_ITS | Encounter Summary ---
Author Organization [facility] Address [address] [place] [address] Phone Care Team Providers Care Machine Operator General Name Role Phone Ilya Gusman MD Primary Care Provider Reason for Visit * Reason Onset Date Comments Med Refill 06/09/2023 Encounter Details Date Type Department Care Team (Late Contact Info) Description 06/09/2023 Refill [facility] - Internal Medicine [address] [place] [address] [phone] Christophe Dailey MD [address] [place] [phone] Med Refill Social History Tobacco Use [...] encounter Miscellaneous Notes * Telephone Encounter - Jama Patterson RN - 06/09/2023 12:39 PM EDT Incoming call from pt checking on status of refill Routing to PCP as prescribing provider is OOO. Jama Patterson RN LNG IM documented in this encounter Plan of Treatment Upcoming Encounters Date Type Department Care Team (Late st Contact Info) Description 10/06/2025 10:45 AM EST Office Visit [facility] - Internal Medicine [address] [place] [phone] Ilya Gusman MD [address] [place] [phone] Christophe Dailey MD [address] [place] [address] [phone] 01/18/2026 1:00 PM EST Office Visit [facility] 70 [facility] 1 [place] [address] Porsha Marsh, FARM MECHANIC 70 [place] [address] 02/22/2026 11:00 AM EDT Office Visit [facility] [address] [place] [address] [address] [place] [phone] Alonso Bae MD [address] [place] [address] [address] [place] [address] 07/17/2026 2:00 PM EDT Office Visit [facility] - Internal Medicine [address] [place] [phone] Ilya Gusman MD [address] [place] [address] [phone] 07/19/2026 11:40 AM EDT Office Visit [facility] [address] [address] Yesi Perez MD 70 [place] [address] documented as of this encounter Visit Diagnoses [...] as of this encounter Care Teams Machine Operator General Relationship Specialty Start Date End Date Ilya Gusman MD [address] [place] [address] [phone] PCP - General 05/14/17 [facility] 09/01/25 documented as of this encounter
--- OUTSIDE RECORDS SUMMARY | 2025-09-23 20:55 | XMS_ITS | Encounter Summary ---
Author Organization [facility] Address [address] [place] [address] Phone Care Team Providers Care Double Needle Operator Lockstitch Name Role Phone Ilya Gusman MD Primary Care Provider [phone] Reason for Visit * Reason Onset Date Comments Med Refill 07/18/2023 Encounter Details Date Type Department Care Team (Late st Contact Info) Description 07/18/2023 Refill [facility] - Internal Medicine [address] [place] [address] [phone] Ilya Gusman MD [address] [place] [phone] Med Refill Social History Tobacco Use [...] encounter Miscellaneous Notes * Telephone Encounter - Suha Rendon PhT - 07/18/2023 1:22 PM EDT Flonase last rx 11/28/22 qty 16 g w/ 3 refills Albuterol inhl last rx 06/24/23 qty 1 w/ 0 refills Last OV with PCP/APC: 04/16/23 Future Appointments Date Time Provider Department Center 08/01/2023 1:30 PM Star Miranda MD [facility] Ian CABRERA Refill Specialist documented in this encounter Plan of Treatment Upcoming Encounters Date Type Department Care Team (Late st Contact Info) Description 10/06/2025 10:45 AM EST Office Visit [facility] - Internal Medicine [address] [place] [phone] Ilya Gusman MD [address] [place] [address] [phone] Christophe Dailey MD [address] [place] [address] [phone] 01/18/2026 1:00 PM EST Office Visit [facility] 70 [facility] 1 [place] [address] Porsha Marsh, WORKPLACE TRAINER AND ASSESSOR 70 [place] [address] 02/22/2026 11:00 AM EDT Office Visit [facility] [address] [place] [address] [address] [place] [phone] Alonso Bae MD [address] [place] [address] [address] [place] [address] 07/17/2026 2:00 PM EDT Office Visit [facility] - Internal Medicine [address] [place] [phone] Ilya Gusman MD [address] [place] [phone] 07/19/2026 11:40 AM EDT Office Visit [facility] [address] [address] Yesi Perez MD 70 [place] [address] documented as of this encounter Visit Diagnoses [...] documented as of this encounter Care Teams Double Needle Operator Lockstitch Relationship Specialty Start Date End Date Ilya Gusman MD [address] [place] [address] [phone] PCP - General 05/14/17 [facility] 09/01/25 documented as of this encounter
--- OUTSIDE RECORDS SUMMARY | 2025-09-23 20:55 | XMS_ITS | Encounter Summary ---
Author Organization [facility] ystem Address [address] [place] [address] Phone Care Team Providers Care Pattern Keeper Name Role Phone Ilya Gusman MD Primary Care Provider [phone] Encounter Details Date Type Department Care Team (Late Contact Info) Description 08/02/2023 Scanned Document [facility] - Health Information Department [address] [place] [address] Scan, No Provider Available [address] [place] [address] [place] [address] <No scans attached> Social History Tobacco Use [...] Upcoming Encounters Date Type Department Care Team ([facility] Contact Info) Description 10/06/2025 10:45 AM EST Office Visit [facility] - Internal Medicine [address] [place] [phone] Ilya Gusman MD [address] [place] [phone] Christophe Dailey MD [address] [place] [address] [phone] 01/18/2026 1:00 PM EST Office Visit [facility] [address] [place] [address] Porsha Marsh, MECHANICAL TECHNICIAN [address] [place] [address] 02/22/2026 11:00 AM EDT Office Visit [facility] [address] [place] [address] [address] [place] [phone] Alonso Bae MD [address] [place] [address] [address] [place] [address] 07/17/2026 2:00 PM EDT Office Visit [facility] - Internal Medicine [address] [place] [phone] Ilya Gusman MD [address] [place] [phone] 07/19/2026 11:40 AM EDT Office Visit [facility] [address] [place] [address] Yesi Perez MD [address] [place] [address] documented as of this encounter Visit Diagnoses [...] documented as of this encounter Care Teams Pattern Keeper Relationship Specialty Start Date End Date Ilya Gusman MD [address] [place] [phone] PCP - General 05/14/17 [facility] 09/01/25 documented as of this encounter
--- OUTSIDE RECORDS SUMMARY | 2025-09-23 20:55 | XMS_ITS | Encounter Summary ---
Author Organization [facility] Address [address] [place] [address] Phone Care Team Providers Care Central Office Repairer Supervisor Name Role Phone Ilya Gusman MD Primary Care Provider [phone] Reason for Visit * Reason Onset Date Comments Med Refill 07/11/2024 Encounter Details Date Type Department Care Team (Late Contact Info) Description 07/11/2024 Refill [facility] - Internal Medicine [address] [place] [address] [phone] Christophe Dailey MD [address] [place] [phone] Med Refill Social History Tobacco Use [...] Telephone Encounter - Sarahy Henderson PhT - 07/12/2024 11:40 AM EDT [facility] DATE OF LAST REFILL? 06/29 FREQUENCY OF REFILLS? 14 days DATE REFILL IS DUE? 07/13 IS THIS AN EARLY REFILL? No Last Urine Drug Screen date: 08/06/2021 Last Opioid Treatment Agreement date: 09/25/2018 DATE OF LAST OFFICE VISIT: 07/09/24 DATE OF NEXT OFFICE VISIT: Future Appointments Date Time Provider Department Center 08/09/2024 11:15 AM Alonso Bae MD [facility] 11/04/2024 1:00 PM Flaquita Paige, SECURITY SYSTEMS TECHNICIAN LNG IM LNG HOLE DIGGER OPERATOR reviewed on 07/12/2024 by Ian PICKETT and no red flags were noted Ian Pierson REFILL SPECIALIST documented in this encounter Plan of Treatment Upcoming Encounters Date Type Department Care Team (Late st Contact Info) Description 10/06/2025 10:45 AM EST Office Visit [facility] - Internal Medicine [address] [place] [phone] Ilya Gusman MD [address] [place] [phone] Christophe Dailey MD [address] [place] [phone] 01/18/2026 1:00 PM EST Office Visit [facility] [address] [facility] 1 [place] [address] Porsha Marsh, DIVEMASTER [address] [place] [address] 02/22/2026 11:00 AM EDT Office Visit [facility] [address] [place] [address] [address] [place] [address] Alonso Bae MD [address] [facility] [address] [place] [address] 07/17/2026 2:00 PM EDT Office Visit [facility] - Internal Medicine [address] [place] [phone] Ilya Gusman MD [address] [place] [phone] 07/19/2026 11:40 AM EDT Office Visit [facility] [address] [address] Yesi Perez MD 70 [place] [address] documented as of this encounter Visit Diagnoses Not on filedocumented in this encounter Additional Health Concerns Infection Onset Date Last Indicated Resolved Time C difficile Rule-Out 11/01/2024 11/02/2024 024 9:43 AM EST Assessment Noted Time PHQ-9 Depression Total Score: 6 04/28/20 24 1:53 PM EDT documented as of this encounter Care Teams Central Office Repairer Supervisor Relationship Specialty Start Date End Date Ilya Gusman MD [address] [place] [phone] PCP - General 05/14/17 [facility] 09/01/25 documented as of this encounter
--- OUTSIDE RECORDS SUMMARY | 2025-09-23 20:55 | XMS_ITS | Encounter Summary ---
Author Organization [facility] ystem Address [address] [place] [address] Phone Care Team Providers Care Manager Publishing Name Role Phone Ilya Gusman MD Primary Care Provider [phone] Encounter Details Date Type Department Care Team (Late st Contact Info) Description 03/10/2018 Procedure Pass [facility]oscopy [address] [place] [address] Social History Tobacco Use Types [...] [facility] [address] [place] [phone] Ilya Gusman MD [address] [place] [phone] Christophe Dailey MD [address] [place] [phone] 01/18/2026 1:00 PM EST Office Visit [facility] 70 [facility] 1 [place] [address] Porsha Marsh, TANK WELDER 70 [place] [address] 02/22/2026 11:00 AM EDT Office Visit [facility] [address] [place] [address] [address] [place] [phone] Alonso Bae MD [address] [place] [address] [address] [place] [address] 07/17/2026 2:00 PM EDT Office Visit [facility] - Internal Medicine [address] [place] [phone] Ilya Gusman MD [address] [place] [phone] 07/19/2026 11:40 AM EDT Office Visit [facility] [address] [place] [address] Yesi Perez MD [address] [place] [address] documented as of this encounter Visit Diagnoses [...] as of this encounter Care Teams Manager Publishing Relationship Specialty Start Date End Date Ilya Gusman MD [address] [place] [phone] PCP - General 05/14/17 [facility] 09/01/25 documented as of this encounter
--- OUTSIDE RECORDS SUMMARY | 2025-09-23 20:55 | XMS_ITS | Encounter Summary ---
Author Organization [facility] Address [address] [place] [address] Phone Care Team Providers Care Game Master Name Role Phone Ilya Gusman MD Primary Care Provider [phone] Reason for Visit * Reason Onset Date Comments VNA Service Delay 07/15/2024 Encounter Details Date Type Department Care Team ([facility] Contact Info) Description 07/15/2024 Telephone [facility] - Family Medicine [address] [place] [phone] Ana Mcallister LPN VNA Service Delay Social History Tobacco Use Types Packs/Day Years [...] encounter Miscellaneous Notes * Telephone Encounter - Ana Mcallister LPN - 07/15/2024 11:43 AM EDT Received voicemail from [facility]. Calling to report that order was faxed to [phone] for patient can receive services. Once orderis signed by PCP, please fax back to [facility]. Routing to secretaries for assistance. Ana Mcallister LPN documented in this encounter Plan of Treatment Upcoming Encounters Date Type Department Care Team (Late st Contact Info) Description 10/06/2025 10:45 AM EST Office Visit [facility] - Internal Medicine [address] [place] [phone] Ilya Gusman MD [address] [place] [phone] Christophe Dailey MD [address] [place] [phone] 01/18/2026 1:00 PM EST Office Visit [facility] [address] [facility] 1 [place] [address] Porsha Marsh, WEARING APPAREL SHAKER 70 [place] [address] 02/22/2026 11:00 AM EDT Office Visit [facility] [address] [place] [address] [address] [place] [phone] Alonso Bae MD [address] [place] [address] [address] [place] [address] 07/17/2026 2:00 PM EDT Office Visit [facility] - Internal Medicine [address] [place] [phone] Ilya Gusman MD [address] [place] [phone] 07/19/2026 11:40 AM EDT Office Visit [facility] [address] [address] Yesi Perez MD 70 [place] [address] documented as of this encounter Visit Diagnoses Not on filedocumented in this encounter Additional Health Concerns Infection Onset Date Last Indicated Resolved Time C difficile Rule-Out 11/01/2024 11/02/2024 024 9:43 AM EST Assessment Noted Time PHQ-9 Depression Total Score: 6 04/28/20 24 1:53 PM EDT documented as of this encounter Care Teams Game Master Relationship Specialty Start Date End Date Ilya Gusman MD [address] [place] [phone] PCP - General 05/14/17 [facility] 09/01/25 documented as of this encounter
--- OUTSIDE RECORDS SUMMARY | 2025-09-23 20:55 | XMS_ITS | Encounter Summary ---
Author Organization [facility] ystem Address [address] [place] [address] Phone Care Team Providers Care Rod And Tube Straightener Name Role Phone Ilya Gusman MD Primary Care Provider [phone] Encounter Details Date Type Department Care Team ([facility] Contact Info) Description 08/12/2023 Orders Only [facility] - Health Information Department [address] [place] [phone] Scan, No Provider Available [address] [place] [address] [place] [phone] Social History Tobacco Use Types Packs/Day Years [...] Upcoming Encounters Date Type Department Care Team ([facility] Contact Info) Description 10/06/2025 10:45 AM EST Office Visit [facility] - Internal Medicine [address] [place] [phone] Ilya Gusman MD [address] [place] [phone] Christophe Dailey MD [address] [place] [phone] 01/18/2026 1:00 PM EST Office Visit [facility] [address] [place] [address] Porsha Marsh, DIRECTOR OF CODING [address] [place] [address] 02/22/2026 11:00 AM EDT Office Visit [facility] [address] [place] [address] [address] [place] [address] Alonso Bae MD [address] [place] [address] [address] [place] [address] 07/17/2026 2:00 PM EDT Office Visit [facility] - Internal Medicine [address] [place] [phone] Ilya Gusman MD [address] [place] [phone] 07/19/2026 11:40 AM EDT Office Visit [facility] [address] [place] [address] Yesi Perez MD [address] [place] [address] documented as of this encounter Procedures Procedure Name Priority Date/Time Associated Diagnosis Comments ECG 12-LEAD Today 08/02/2023 documented in this encounter Results * ECG (08/02/2023) us No Provider Available Scan ECG ORDERABLES [...] documented as of this encounter Care Teams Rod And Tube Straightener Relationship Specialty Start Date End Date Ilya Gusman MD [address] [place] [phone] PCP - General 05/14/17 [facility] 09/01/25 documented as of this encounter
--- OUTSIDE RECORDS SUMMARY | 2025-09-23 20:55 | XMS_ITS | Encounter Summary ---
Author Organization [facility] Address [address] [place] [address] Phone Care Team Providers Care Roll Forming Machine Set Up Operator Name Role Phone Ilya Gusman MD Primary Care Provider [phone] Reason for Visit * Reason Onset Date Comments Med Refill 08/01/2023 Encounter Details Date Type Department Care Team (Late st Contact Info) Description 08/01/2023 Refill [facility] - Internal Medicine [address] [place] [phone] Ilya Gusman MD [address] [place] [phone] Med Refill Social History Tobacco Use [...] Notes * Telephone Encounter - Kristina Schneider, PhT - 08/01/2023 9:46 AM EDT Secretaries: Please schedule PE due now. Thanks Pt requesting Quetiapine. Only written as Historic. Med not pending. Please advise Last OV on 04/18/22 Future Appointments Date Time Provider Department Center 08/01/2023 10:30 AM Greer Ayala, GEOVANNI Schneider Refill Specialist documented in this encounter Plan of Treatment Upcoming Encounters Date Type Department Care Team (Late st Contact Info) Description 10/06/2025 10:45 AM EST Office Visit [facility] - Internal Medicine [address] [place] [phone] Ilya Gusman MD [address] [place] [phone] Christophe Dailey MD [address] [place] [address] [phone] 01/18/2026 1:00 PM EST Office Visit [facility] 70 [facility] 1 [place] [address] Porsha Marsh, CONSUMER SALES REPRESENTATIVE 70 [place] [address] 02/22/2026 11:00 AM EDT Office Visit [facility] [address] [place] [address] [address] [place] [phone] Alonso Bae MD [address] [place] [address] [address] [place] [address] 07/17/2026 2:00 PM EDT Office Visit [facility] - Internal Medicine [address] [place] [phone] Ilya Gusman MD [address] [place] [phone] 07/19/2026 11:40 AM EDT Office Visit [facility] [address] [address] Yesi Perez MD 70 [place] [address] documented as of this encounter Visit Diagnoses [...] documented as of this encounter Care Teams Roll Forming Machine Set Up Operator Relationship Specialty Start Date End Date Ilya Gusman MD [address] [place] [phone] PCP - General 05/14/17 [facility] 09/01/25 documented as of this encounter
--- OUTSIDE RECORDS SUMMARY | 2025-09-23 20:55 | XMS_ITS | Encounter Summary ---
Author Organization [facility] Address [address] [place] [address] Phone Care Team Providers Care Garbage Depot Worker Name Role Phone Ilya Gusman MD Primary Care Provider [phone] Reason for Visit * Reason Onset Date Comments Med Refill 07/17/2018 Encounter Details Date Type Department Care Team (Late st Contact Info) Description 07/17/2018 Refill [facility] - Internal Medicine [address] [place] [address] [phone] Sondra Chandra MD [address] [place] [phone] Med Refill Social History Tobacco Use [...] Telephone Encounter - Jany Daley LPN - 07/20/2018 9:16 AM EDT Oxycodone 5 mg Pharmacy: [facility] DATE OF LAST REFILL? 07/07/18 FREQUENCY OF REFILLS? 14 days DATE REFILL IS DUE? 07/21 IS THIS AN EARLY REFILL? No CONTROLLED SUBSTANCE AGREEMENT ON FILE? Yes Last UDS: 11/18/17 DATE OF LAST OFFICE VISIT: 05/29/18 DATE OF NEXT OFFICE VISIT: Future Appointments Date Time Provider Department Center 07/20/2018 10:30 AM ORTHO 2PP PPK [facility] PPK 07/24/2018 9:30 AM Alejandro Lion MD NEV NEUROSP NEV 08/13/2018 8:00 AM Lulu Mata NP LNG IM LNG 09/09/2018 8:00 AM MOLLY SAWANT K[facility] LAB KIN 09/17/2018 8:00 AM Luz Maria Victor PA-C KIN ENC KIN 09/25/2018 8:20 AM Ilya Gusman MD LNG IM LNG PRODUCT SUPPORT MANAGER reviewed on 07/20/2018 by JANY DALEY LPN and no red flags were noted Jany Daley LPN Refill Team/[facility] IM-Loft * Telephone Encounter - Jany Daley LPN - 07/20/2018 9:05 AM EDTFrom: Adolfo Zaragoza To: Sondra Chandra MD Sent: 07/17/2018 4:07 PM EDT Subject: Medication Renewal Request Original authorizing provider: MD Adolfo PENA would like a refill of the following medications: oxyCODONE (ROXICODONE) 5 MG immediate release tablet [SONDRA CHANDRA MD] Preferred pharmacy: [id number] - [place], [place] - [address] [facility] Delivery method: Pickup Comment: documented in this encounter Plan of Treatment Upcoming Encounters Date Type Department Care Team (Late st Contact Info) Description 10/06/2025 10:45 AM EST Office Visit [facility] - Internal Medicine [address] [place] [phone] Ilya Gusman MD [address] [place] [phone] Sondra Chandra MD [address] [place] [phone] 01/18/2026 1:00 PM EST Office Visit [facility] [address] [place] [address] Porsha Marsh, CREPE LAMINATOR OPERATOR 70 [place] [address] 02/22/2026 11:00 AM EDT Office Visit [facility] [address] [place] [address] [address] [place] [phone] Alonso Bae MD [address] [place] [address] [address] [place] [address] 07/17/2026 2:00 PM EDT Office Visit [facility] - Internal Medicine [address] [place] [phone] Ilya Gusman MD [address] [place] [phone] 07/19/2026 11:40 AM EDT Office Visit [facility] [address] [place] [address] Yesi Perez MD [address] [place] [address] documented as of this encounter Visit Diagnoses [...] documented as of this encounter Care Teams Garbage Depot Worker Relationship Specialty Start Date End Date Ilya Gusman MD [address] [place] [phone] PCP - General 05/14/17 [facility] 09/01/25 documented as of this encounter
--- OUTSIDE RECORDS SUMMARY | 2025-09-23 20:55 | XMS_ITS | Encounter Summary ---
Author Organization [facility] Address [address] [place] [address] Phone Care Team Providers Care Admissions Representative Name Role Phone Ilya Gusman MD Primary Care Provider [phone] Reason for Visit * Reason Onset Date Comments Med Refill 05/29/2023 Encounter Details Date Type Department Care Team ([facility] Contact Info) Description 05/29/2023 Refill [facility] - Internal Medicine [address] [place] [phone] Ilya Gusman MD [address] [place] [phone] Med Refill Social History Tobacco Use [...] 10:45 AM EST Office Visit [facility] - Internal Medicine [address] [place] [phone] Ilya Gusman MD [address] [place] [phone] Christophe Dailey MD [address] [place] [phone] 01/18/2026 1:00 PM EST Office Visit [facility] [address] [place] [address] Porsha Marsh, [address] [address] 02/22/2026 11:00 AM EDT Office Visit [facility] [address] [place] [address] [address] [place] [phone] Alonso Bae MD [address] [place] [address] [address] [place] [address] 07/17/2026 2:00 PM EDT Office Visit [facility] - Internal Medicine [address] [place] [phone] Ilya Gusman MD [address] [place] [phone] 07/19/2026 11:40 AM EDT Office Visit [facility] [address] [place] [address] Yesi Perez MD [address] [place] [address] documented as of this encounter Visit Diagnoses [...] documented as of this encounter Care Teams Admissions Representative Relationship Specialty Start Date End Date Ilya Gusman MD [address] [place] [address] [phone] PCP - General 05/14/17 [facility] 09/01/25 documented as of this encounter
--- OUTSIDE RECORDS SUMMARY | 2025-09-23 20:55 | XMS_ITS | Encounter Summary ---
Author Organization [facility] ystem Address [address] [place] [address] Phone Care Team Providers Care Magistrate Name Role Phone Ilya Gusman MD Primary Care Provider [phone] Encounter Details Date Type Department Care Team (Late Contact Info) Description 06/03/2023 Scanned Document [facility] - Health Information Department [address] [place] [address] Scan, No Provider Available [address] [place] [address] [place] [address] <No scans attached> Social History Tobacco Use [...] Upcoming Encounters Date Type Department Care Team ([facility] Contact Info) Description 10/06/2025 10:45 AM EST Office Visit [facility] - Internal Medicine [address] [place] [phone] Ilya Gusman MD [address] [place] [phone] Christophe Dailey MD [address] [place] [address] [phone] 01/18/2026 1:00 PM EST Office Visit [facility] [address] [place] [address] Porsha Marsh, FORECLOSURE SPECIALIST [address] [place] [address] 02/22/2026 11:00 AM EDT Office Visit [facility] [address] [place] [address] [address] [place] [phone] Alonso Bae MD [address] [place] [address] [address] [place] [address] 07/17/2026 2:00 PM EDT Office Visit [facility] - Internal Medicine [address] [place] [phone] Ilya Gusman MD [address] [place] [phone] 07/19/2026 11:40 AM EDT Office Visit [facility] [address] [place] [address] Yesi Perez MD [address] [place] [address] documented as of this encounter Visit Diagnoses [...] documented as of this encounter Care Teams Magistrate Relationship Specialty Start Date End Date Ilya Gusman MD [address] [place] [phone] PCP - General 05/14/17 [facility] 09/01/25 documented as of this encounter
--- OUTSIDE RECORDS SUMMARY | 2025-09-23 20:55 | XMS_ITS | Encounter Summary ---
Author Organization [facility] ystem Address [address] [place] [address] Phone Care Team Providers Care Pattern Cutter Name Role Phone Ilya Gusman MD Primary Care Provider [phone] Encounter Details Date Type Department Care Team (Late st Contact Info) Description 04/07/2018 Procedure Pass [facility] Endoscopy [address] [place] [phone] Social History Tobacco Use Types [...] [facility] - Internal Medicine [address] [place] [phone] Ilya Gusman MD [address] [place] [phone] Christophe Dailey MD [address] [place] [phone] 01/18/2026 1:00 PM EST Office Visit [facility] 70 [facility] 1 [place] [address] Porsha Marsh, COMPUTER PATTERNMAKER 70 [place] [address] 02/22/2026 11:00 AM EDT Office Visit [facility] [address] [place] [address] [address] [place] [phone] Alonso Bae MD [address] [place] [address] [address] [place] [address] 07/17/2026 2:00 PM EDT Office Visit [facility] - Internal Medicine [address] [place] [phone] Ilya Gusman MD [address] [place] [phone] 07/19/2026 11:40 AM EDT Office Visit [facility] [address] [place] [address] Yesi Perez MD [address] [place] [address] documented as of this encounter Visit Diagnoses [...] as of this encounter Care Teams Pattern Cutter Relationship Specialty Start Date End Date Ilya Gusman MD [address] [place] [phone] PCP - General 05/14/17 [facility] 09/01/25 documented as of this encounter
--- OUTSIDE RECORDS SUMMARY | 2025-09-23 20:55 | XMS_ITS | Encounter Summary ---
Author Organization [facility] Address [address] [place] [address] Phone Care Team Providers Care Synthetic Chemist Name Role Phone Ilya Gusman MD Primary Care Provider [phone] Reason for Visit * Reason Onset Date Comments Med Refill 06/06/2023 Encounter Details Date Type Department Care Team (Late st Contact Info) Description 06/06/2023 Refill [facility] - Internal Medicine [address] [place] [address] [phone] Christophe Dailey MD [address] [place] [phone] Med Refill Social History Tobacco Use [...] Telephone Encounter - Renuka Gallegos MA - 06/06/2023 11:57 AM EDT Dilaudid qty 112 [facility]acy: [email or web address] DATE OF LAST REFILL? 05/26/23 FREQUENCY OF REFILLS? 14 days DATE REFILL IS DUE? 06/09/23 IS THIS AN EARLY REFILL? No Last Urine Drug Screen date: 08/06/2021 Last Opioid Treatment Agreement date: 09/25/2018 DATE OF LAST OFFICE VISIT: 04/16/23 DATE OF NEXT OFFICE VISIT: Future Appointments Date Time Provider Department Center 07/02/2023 1:45 PM Alonso Bae MD [facility] 07/16/2023 12:15 PM Christophe Dailey MD [facility] PERSONAL SECURITY SPECIALIST reviewed on 06/06/2023 by RENUKA GALLEGOS MA and reviewed & no red flags were noted documented in this encounter Plan of Treatment Upcoming Encounters Date Type Department Care Team (Late st Contact Info) Description 10/06/2025 10:45 AM EST Office Visit [facility] - Internal Medicine [address] [place] [address] [phone] Ilya Gusman MD [address] [place] [phone] Christophe Dailey MD [address] [place] [address] [phone] 01/18/2026 1:00 PM EST Office Visit [facility] 70 [facility] 1 [place] [address] Porsha Marsh, MARILIA 70 [place] [address] 02/22/2026 11:00 AM EDT Office Visit [facility] [address] [place] [address] [place] [phone] Alonso Bae MD [address] [facility] [address] [place] [address] 07/17/2026 2:00 PM EDT Office Visit [facility] - Internal Medicine [address] [place] [address] Ilya Gusman MD [address] [place] [phone] 07/19/2026 11:40 AM EDT Office Visit [facility] [address] [address] Yesi Perez MD 70 [place] [address] documented as of this encounter Visit Diagnoses [...] documented as of this encounter Care Teams Synthetic Chemist Relationship Specialty Start Date End Date Ilya Gusman MD [address] [place] [address] [phone] PCP - General 05/14/17 [facility] 09/01/25 documented as of this encounter
--- OUTSIDE RECORDS SUMMARY | 2025-09-23 20:55 | XMS_ITS | Encounter Summary ---
Author Organization [facility] Address [address] [place] [address] Phone Care Team Providers Care Movie Operator Name Role Phone Ilya Gusman MD Primary Care Provider [phone] Encounter Details Date Type Department Care Team (Late Contact Info) Description 08/20/2018 Scanned Document [facility] - Health Information Department [address] [place] [address] Scan, No Provider Available [address] [place] [address] [place] [address] <No scans attached> Social History Tobacco Use [...] [facility] [address] [place] [phone] Ilya Gusman MD [address] [place] [phone] Christophe Dailey MD [address] [place] [phone] 01/18/2026 1:00 PM EST Office Visit [facility] [address] [place] [address] Porsha Marsh, STRIKE PLANNING APPLICATIONS 70 [place] [address] 02/22/2026 11:00 AM EDT Office Visit [facility] [address] [place] [address] [address] [place] [phone] Alonso Bae MD [address] [place] [address] 2 [place] [address] 07/17/2026 2:00 PM EDT Office Visit [facility] - Internal Medicine [address] [place] [phone] Ilya Gusman MD [address] [place] [phone] 07/19/2026 11:40 AM EDT Office Visit [facility] [address] [place] [address] Yesi Perez MD [address] [place] [address] documented as of this encounter Visit Diagnoses [...] documented as of this encounter Care Teams Movie Operator Relationship Specialty Start Date End Date Ilya Gusman MD [address] [place] [address] [phone] PCP - General 05/14/17 [facility] 09/01/25 documented as of this encounter
--- OUTSIDE RECORDS SUMMARY | 2025-09-23 20:55 | XMS_ITS | Encounter Summary ---
Author Organization [facility] Address [address] [place] [address] Phone Care Team Providers Care Sofa Cover Inspector Name Role Phone Ilya Gusman MD Primary Care Provider [phone] Encounter Details Date Type Department Care Team ([facility] Contact Info) Description 09/01/2023 Orders Only [facility] - Health Information Department [address] [place] [address] Scan, No Provider Available [address] [place] [address] Dr. Bush [place] [id number] Social History Tobacco Use Types Packs/Day Years [...] Upcoming Encounters Date Type Department Care Team ([facility] Contact Info) Description 10/06/2025 10:45 AM EST Office Visit [facility] - Internal Medicine [address] [place] [phone] Ilya Gusman MD [address] [place] [phone] Christophe Dailey MD [address] [place] [phone] 01/18/2026 1:00 PM EST Office Visit [facility] [address] [place] [phone] Porsha Marsh, SOLUTIONS SALES EXECUTIVE [address] [place] [address] [phone] 02/22/2026 11:00 AM EDT Office Visit [facility] [address] [place] [address] [address] [place] [phone] Alonso Bae MD [address] [place] [address] [address] [place] [address] 07/17/2026 2:00 PM EDT Office Visit [facility] - Internal Medicine [address] [place] [phone] Ilya Gusman MD [address] [place] [phone] 07/19/2026 11:40 AM EDT Office Visit [facility] [address] [place] [address] Yesi Perez MD [address] [place] [address] documented as of this encounter Procedures Procedure Name Priority Date/Time Associated Diagnosis Comments MR NIO COX Routine 08/24/2023 documented in this encounter Results * MR Ino cox (08/24/2023) us No Provider Available Scan LAB BLOOD [...] documented as of this encounter Care Teams Sofa Cover Inspector Relationship Specialty Start Date End Date Ilya Gusman MD [address] [place] [address] [phone] PCP - General 05/14/17 [facility] 09/01/25 documented as of this encounter
--- OUTSIDE RECORDS SUMMARY | 2025-09-23 20:55 | XMS_ITS | Encounter Summary ---
Author Organization [facility] Address [address] [place] [address] Phone Care Team Providers Care Delivery Recruiter Name Role Phone Ilya Gusman MD Primary Care Provider [phone] Encounter Details Date Type Department Care Team (Late Contact Info) Description 04/09/2018 Orders Only [facility] - Health Information Department [address] [place] [phone] Scan, No Provider Available [address] [place] [address] [place] [address] Social History Tobacco Use Types Packs/Day Years [...] Description 10/06/2025 10:45 AM EST Office Visit [facility] - Internal Medicine [address] [place] [phone] Ilya Gusman MD [address] [place] [phone] Christophe Dailey MD [address] [place] [phone] 01/18/2026 1:00 PM EST Office Visit [facility] [address] [place] [address] Porsha Marsh, DIRECTOR RADIO NEWS 70 [place] [address] 02/22/2026 11:00 AM EDT Office Visit [facility] [address] [place] [address] [address] [place] [phone] Alonso Bae MD [address] [place] [address] [address] [place] [address] 07/17/2026 2:00 PM EDT Office Visit [facility] - Internal Medicine [address] [place] [phone] Ilya Gusman MD [address] [place] [phone] 07/19/2026 11:40 AM EDT Office Visit [facility] [address] [place] [address] Yesi Perez MD [address] [place] [address] documented as of this encounter Procedures Procedure Name Priority Date/Time Associated Diagnosis Comments DIABETES EYE EXAM Routine 04/02/2018 documented in this encounter Results * Diabetes Eye Exam (04/02/2018) us No Provider Available [facility] nal Result documented in this encounter Visit [...] documented as of this encounter Care Teams Delivery Recruiter Relationship Specialty Start Date End Date Ilya Gusman MD [address] [place] [phone] PCP - General 05/14/17 [facility] 09/01/25 documented as of this encounter
--- OUTSIDE RECORDS SUMMARY | 2025-09-23 20:55 | XMS_ITS | Encounter Summary ---
Author Organization [facility] Address [address] [place] [address] Phone Care Team Providers Care Speech/Language Therapist Name Role Phone Ilya Gusman MD Primary Care Provider [phone] Encounter Details Date Type Department Care Team ([facility] Contact Info) Description 08/14/2023 Orders Only [facility] - Health Information Department [address] [place] [phone] Scan, No Provider Available [address] [place] [address] Dr. Bush [place] [id number] Social History Tobacco Use Types Packs/Day Years [...] Upcoming Encounters Date Type Department Care Team ([facility] Contact Info) Description 10/06/2025 10:45 AM EST Office Visit [facility] - Internal Medicine [address] [place] [phone] Ilya Gusman MD [address] [place] [phone] Christophe Dailey MD [address] [place] [phone] 01/18/2026 1:00 PM EST Office Visit [facility] [address] [place] [address] Porsha Marsh, REGIONAL PRODUCTION MANAGER [address] [place] [address] [phone] 02/22/2026 11:00 AM EDT Office Visit [facility] [address] [place] [address] [address] [place] [phone] Alonso Bae MD [address] [place] [address] [address] [place] [address] 07/17/2026 2:00 PM EDT Office Visit [facility] - Internal Medicine [address] [place] [phone] Ilya Gusman MD [address] [place] [phone] 07/19/2026 11:40 AM EDT Office Visit [facility] [address] [place] [address] Yesi Perez MD [address] [place] [address] documented as of this encounter Procedures Procedure Name Priority Date/Time Associated Diagnosis Comments MR INO COX Routine 2023 documented in this encounter Results * MR Ino cox (2023) us No Provider Available Scan LAB BLOOD [...] documented as of this encounter Care Teams Speech/Language Therapist Relationship Specialty Start Date End Date Ilya Gusman MD [address] [place] [address] [phone] PCP - General 05/14/17 [facility] 09/01/25 documented as of this encounter
--- OUTSIDE RECORDS SUMMARY | 2025-09-23 20:55 | XMS_ITS | Encounter Summary ---
Author Organization [facility] Address [address] [place] [address] Phone Care Team Providers Care Truck Cleaner Name Role Phone Ilya Gusman MD Primary Care Provider [phone] Encounter Details Date Type Department Care Team (Late Contact Info) Description 01/02/2021 Scanned Document [facility] - Health Information Department [address] [place], [place] [phone] Scan, No Provider Available [address] [place] [address] [place] [address] <No scans attached> Social History Tobacco Use [...] Description 10/06/2025 10:45 AM EST Office Visit [facility] - Internal Medicine [address] [place] [phone] Ilya Gusman MD [address] [place] [phone] Christophe Dailey MD [address] [place] [phone] 01/18/2026 1:00 PM EST Office Visit [facility] [address] [place] [address] Porsha Marsh, MARILIA [address] [place] [address] 02/22/2026 11:00 AM EDT Office Visit [facility] [address] [place] [address] [address] [place] [phone] Alonso Bae MD [address] [place] [address] [address] [place] [address] 07/17/2026 2:00 PM EDT Office Visit [facility] - Internal Medicine [address] [place] [phone] Ilya Gusman MD [address] [place] [phone] 07/19/2026 11:40 AM EDT Office Visit [facility] [address] [place] [address] Yesi Perez MD [address] [place] [address] documented as of this encounter Visit Diagnoses [...] documented as of this encounter Care Teams Truck Cleaner Relationship Specialty Start Date End Date Ilya Gusman MD [address] [place] [address] [phone] PCP - General 05/14/17 [facility] 09/01/25 documented as of this encounter
--- OUTSIDE RECORDS SUMMARY | 2025-09-23 20:55 | XMS_ITS | Encounter Summary ---
Author Organization [facility] Address [address] [place] [address] Phone Care Team Providers Care Facs Teacher Name Role Phone Ilya Gusman MD Primary Care Provider Encounter Details Date Type Department Care Team ([facility] Contact Info) Description 08/05/2023 Orders Only [facility] - Health Information Department [address] [place] [address] Scan, No Provider Available [address] [place] [address] [address] Bush [place] [id number] Social History Tobacco Use Types Packs/Day Years [...] Upcoming Encounters Date Type Department Care Team ([facility] Contact Info) Description 10/06/2025 10:45 AM EST Office Visit [facility] - Internal Medicine [address] [place] [phone] Ilya Gusman MD [address] [place] [phone] Christophe Dailey MD [address] [place] [phone] 01/18/2026 1:00 PM EST Office Visit [facility] [address] [place] [address] Porsha Marsh, SLIP COVER SEWER [address] [place] [address] 02/22/2026 11:00 AM EDT Office Visit [facility] [address] [place] [address] [address] [place] [phone] Alonso Bae MD [address] [place] [address] [address] [place] [address] 07/17/2026 2:00 PM EDT Office Visit [facility] - Internal Medicine [address] [place] [phone] Ilya Gusman MD [address] [place] [phone] 07/19/2026 11:40 AM EDT Office Visit [address] [address] Yesi Perez MD [address] [place] [address] documented as of this encounter Procedures Procedure Name Priority Date/Time Associated Diagnosis Comments XR CHEST 1 VW Routine 08/02/2023 documented in this encounter Results * X-ray chest 1 view (08/02/2023) Anatomical Region Laterality Modality Body Radiographic Carmelina [...] documented as of this encounter Care Teams Facs Teacher Relationship Specialty Start Date End Date Ilya Gusman MD [address] [place] [phone] PCP - General 05/14/17 [facility] 09/01/25 documented as of this encounter
--- OUTSIDE RECORDS SUMMARY | 2025-09-23 20:55 | XMS_ITS | Encounter Summary ---
Author Organization [facility] Address [address] [place] [address] Phone Care Team Providers Care Concrete Stone Fabricator Name Role Phone Ilya Gusman MD Primary Care Provider [phone] Reason for Visit * Reason Onset Date Comments Med Refill 06/27/2023 Encounter Details Date Type Department Care Team ([facility] Contact Info) Description 06/27/2023 Refill [facility] - Internal Medicine [address] [place] [phone] Ilya Gusman MD [address] [place] [phone] Med Refill Social History Tobacco Use [...] [facility] - Internal Medicine [address] [place] [phone] Ilya Gusman MD [address] [place] [phone] Christophe Dailey MD [address] [place] [phone] 01/18/2026 1:00 PM EST Office Visit [facility] [address] [place] [address] Porsha Marsh, MARILIA 70 [place] [address] 02/22/2026 11:00 AM EDT Office Visit [facility] [address] [place] [address] [address] [place] [address] Alonso Bae MD [address] [place] [address] 2 [place] [address] 07/17/2026 2:00 PM EDT Office Visit [facility] - Internal Medicine [address] [place] [phone] Ilya Gusman MD [address] [place] [phone] 07/19/2026 11:40 AM EDT Office Visit [facility] [address] [place] [address] Yesi Perez MD 70 [place] [address] documented as of this encounter [...] documented as of this encounter Care Teams Concrete Stone Fabricator Relationship Specialty Start Date End Date Ilya Gusman MD [address] [place] [phone] PCP - General 05/14/17 [facility] 09/01/25 documented as of this encounter
--- OUTSIDE RECORDS SUMMARY | 2025-09-23 20:55 | XMS_ITS | Encounter Summary ---
Author Organization [facility] Address [address] [place] [address] Phone Care Team Providers Care Card Cutter Helper Name Role Phone Ilya Gusman MD Primary Care Provider [phone] Encounter Details Date Type Department Care Team (Late Contact Info) Description 06/04/2018 Scanned Document [facility] - Health Information Department [address] [place] [address] Scan, No Provider Available [address] [place] [address] [place] [address] <No scans attached> Social History Tobacco Use [...] 10:45 AM EST Office Visit [facility] - Internal Medicine [address] [place] [phone] Ilya Gusman MD [address] [place] [phone] Christophe Dailey MD [address] [place] [phone] 01/18/2026 1:00 PM EST Office Visit [facility] [address] [place] [address] Porsha Marsh, FIBERGLASS GRINDER 70 [place] [address] 02/22/2026 11:00 AM EDT Office Visit [facility] [address] [place] [address] [address] [place] [phone] Alonso Bae MD [address] [place] [address] 2 [place] [address] 07/17/2026 2:00 PM EDT Office Visit [facility] - Internal Medicine [address] [place] [phone] Ilya Gusman MD [address] [place] [phone] 07/19/2026 11:40 AM EDT Office Visit [facility] [address] [place] [address] Yesi Perez MD [address] [place] [address] documented as of this encounter Visit Diagnoses [...] documented as of this encounter Care Teams Card Cutter Helper Relationship Specialty Start Date End Date Ilya Gusman MD [address] [place] [address] [phone] PCP - General 05/14/17 [facility] 09/01/25 documented as of this encounter
--- OUTSIDE RECORDS SUMMARY | 2025-09-23 20:55 | XMS_ITS | Encounter Summary ---
Author Organization [facility] Address [address] [place] [address] Phone Care Team Providers Care Patternmaker Bench Name Role Phone Ilya Gusman MD Primary Care Provider [phone] Encounter Details Date Type Department Care Team (Late Contact Info) Description 05/25/2018 Scanned Document [facility] - Health Information Department [address] [place] [address] Scan, No Provider Available [address] [place] [address] [place] [address] <No scans attached> Social History Tobacco Use [...] Visit [facility] - Internal Medicine [address] [place] [phone] Ilya Gusman MD [address] [place] [phone] Christophe Dailey MD [address] [place] [phone] 01/18/2026 1:00 PM EST Office Visit [facility] [address] [place] [address] Porsha Marsh, SENIOR MECHANICAL DESIGN ENGINEER 70 [place] [address] 02/22/2026 11:00 AM EDT Office Visit [facility] [address] [place] [address] [address] [place] [phone] Alonso Bae MD [address] [place] [address] 2 [place] [address] 07/17/2026 2:00 PM EDT Office Visit [facility] - Internal Medicine [address] [place] [phone] Ilya Gsuman MD [address] [place] [phone] 07/19/2026 11:40 AM EDT Office Visit [facility] [address] [place] [address] Yesi Perez MD [address] [place] [address] 11447 documented as of this encounter Visit Diagnoses [...] documented as of this encounter Care Teams Patternmaker Bench Relationship Specialty Start Date End Date Ilya Gusman MD [address] [place] [address] [phone] PCP - General 05/14/17 [facility] 09/01/25 documented as of this encounter
--- OUTSIDE RECORDS SUMMARY | 2025-09-23 20:55 | XMS_ITS | Encounter Summary ---
Author [facility] Address [address] [place] [address] Phone Care Team Providers Care Tow Truck Dispatcher Name Role Phone Ilya Gusman MD Primary Care Provider [phone] Encounter Details Date Type Department Care Team (Late Contact Info) Description 07/13/[address] [facility] - Health Information Department [address] [place] [phone] Scan, No Provider Available [address] [place] [address] [place] [address] <No scans attached> Social History Tobacco Use [...] 10/06/2025 10:45 AM EST Office Visit [facility] - Internal Medicine [address] [place] [phone] Ilya Gusman MD [address] [place] [phone] Christophe Dailey MD [address] [place] [phone] 01/18/2026 1:00 PM EST Office Visit [facility] [address] [place] [address] Porsha Marsh, ESTHETICIAN SPA [address] [place] [address] 02/22/2026 11:00 AM EDT Office Visit [facility] [address] [place] [address] [address] [place] [phone] Alonso Bae MD [address] [place] [address] 2 [place] [address] 07/17/2026 2:00 PM EDT Office Visit [facility] - Internal Medicine [address] [place] [phone] Ilya Gusman MD [address] [place] [phone] 07/19/2026 11:40 AM EDT Office Visit [facility] [address] [place] [address] Yesi Perez MD [address] [place] [address] documented as of this encounter Visit Diagnoses [...] documented as of this encounter Care Teams Tow Truck Dispatcher Relationship Specialty Start Date End Date Ilya Gusman MD [address] [place] [address] [phone] PCP - General 05/14/17 [facility] 09/01/25 documented as of this encounter
--- OUTSIDE RECORDS SUMMARY | 2025-09-23 20:55 | XMS_ITS | Encounter Summary ---
[facility] Address [address] [place] [address] Phone Care Team Providers Care Corporate Compliance Manager Name Role Phone Ilya Gusman MD Primary Care Provider [phone] Encounter Details Date Type Department Care Team (Late Contact Info) Description 08/05/2018 Scanned Document [facility] - Health Information Department [address] [place] [address] Scan, No Provider Available [address] [place] [address] [place] [address] <No scans attached> Social History Tobacco Use [...] [facility] - Internal Medicine [address] [place] [phone] Ilya Gusman MD [address] [place] [phone] Christophe Dailey MD [address] [place] [phone] 01/18/2026 1:00 PM EST Office Visit [facility] [address] [place] [address] Porsha Marsh, SOFTWARE REQUIREMENTS ENGINEER [address] [place] [address] 02/22/2026 11:00 AM EDT Office Visit [facility] [address] [place] [address] [address] [place] [phone] Alonso Bae MD [address] [place] [address] 2 [place] [address] 07/17/2026 2:00 PM EDT Office Visit [facility] - Internal Medicine [address] [place] [phone] Ilya Gusman MD [address] [place] [phone] 07/19/2026 11:40 AM EDT Office Visit [facility] [address] [place] [address] Yesi Perez MD [address] [place] [address] documented as of this encounter Visit Diagnoses [...] documented as of this encounter Care Teams Corporate Compliance Manager Relationship Specialty Start Date End Date Ilya Gusman MD [address] [place] [address] [phone] PCP - General 05/14/17 [facility] 09/01/25 documented as of this encounter
--- OUTSIDE RECORDS SUMMARY | 2025-09-23 20:55 | XMS_ITS | Encounter Summary ---
Author Organization [facility] ystem Address [address] [place] [address] Phone Care Team Providers Care Asphalt Heater Operator Name Role Phone Ilya Gusman MD Primary Care Provider [phone] Encounter Details Date Type Department Care Team (Late Contact Info) Description 07/10/2024 Procedure Pass [facility] - MR Imaging [address] [place] [address] Social History Tobacco Use Types [...] [facility] - Internal Medicine [address] [place] [phone] Ilya Gusman MD [address] [place] [phone] Christophe Dailey MD [address] [place] [phone] 01/18/2026 1:00 PM EST Office Visit [facility] [address] [place] [address] Porsha Marsh, [place] LO DRIVER [address] [place] [address] 02/22/2026 11:00 AM EDT Office Visit [facility] [address] [place] [address] [address] [place] [phone] Alonso Bae MD [address] [place] [address] [address] [place] [address] 07/17/2026 2:00 PM EDT Office Visit [facility] - Internal Medicine [address] [place] [phone] Ilya Gusman MD [address] [place] [phone] 07/19/2026 11:40 AM EDT Office Visit [facility] [address] [place] [address] Yesi Perez MD [address] [place] [address] documented as of this encounter Visit Diagnoses Not on filedocumented in this encounter Additional Health Concerns Infection Onset Date Last Indicated Resolved Time C difficile Rule-Out 11/01/2024 11/02/2024 024 9:43 AM EST Assessment Noted Time PHQ-9 Depression Total Score: 6 04/28/20 24 1:53 PM EDT documented as of this encounter Care Teams Asphalt Heater Operator Relationship Specialty Start Date End Date Ilya Gusman MD [address] [place] [phone] PCP - General 05/14/17 [facility] 09/01/25 documented as of this encounter
--- OUTSIDE RECORDS SUMMARY | 2025-09-23 20:56 | XMS_ITS | Encounter Summary ---
Author Organization [facility] ystem Address [address] [place] [address] Phone Care Team Providers Care Photo Optics Technician Name Role Phone Ilya Gusman MD Primary Care Provider [phone] Encounter Details Date Type Department Care Team ([facility] Contact Info) Description 06/11/2024 Orders Only [facility] - Health Information Department [address] [place] [address] Scan, No Provider Available [address] [place] [address] Dr. Eleazar [place] [phone] Social History Tobacco Use Types Packs/Day Years [...] Upcoming Encounters Date Type Department Care Team ([facility] Contact Info) Description 10/06/2025 10:45 AM EST Office Visit [facility] - Internal Medicine [address] [place] [phone] Ilya Gusman MD [address] [place] [phone] Christophe Dailey MD [address] [place] [phone] 01/18/2026 1:00 PM EST Office Visit [facility] [address] [place] [address] Porsha Marsh, SENIOR PROCESS ENGINEER [address] [place] [address] 02/22/2026 11:00 AM EDT Office Visit [facility] [address] [place] [address] [address] [place] [phone] Alonso Bae MD [address] [place] [address] [address] [place] [address] 07/17/2026 2:00 PM EDT Office Visit [facility] - Internal Medicine [address] [place] [phone] Ilya Gusman MD [address] [place] [phone] 07/19/2026 11:40 AM EDT Office Visit [facility] [address] [place] [address] Yesi Perez MD [address] [place] [address] documented as of this encounter Procedures Procedure Name Priority Date/Time Associated Diagnosis Comments ECG 12-LEAD Today 06/07/2024 2:36 PM EDT documented in this encounter Results * ECG (06/07/2024 2:36 PM EDT) No Provider Available Scan ECG ORDERABLES Final Result documented in this encounter Visit Diagnoses Not on filedocumented in this encounter Additional Health Concerns Infection Onset Date Last Indicated Resolved Time C difficile Rule-Out 11/01/2024 11/02/2024 024 9:43 AM EST Assessment Noted Time PHQ-9 Depression Total Score: 6 04/28/20 24 1:53 PM EDT documented as of this encounter Care Teams Photo Optics Technician Relationship Specialty Start Date End Date Ilya Gusman MD [address] [place] [phone] PCP - General 05/14/17 [facility] 09/01/25 documented as of this encounter
--- OUTSIDE RECORDS SUMMARY | 2025-09-23 20:56 | XMS_ITS | Encounter Summary ---
Author Organization [facility] ystem Address [address] [place] [address] Phone Care Team Providers Care Non Destructive Testing Technician Name Role Phone Ilya Gusman MD Primary Care Provider [phone] Encounter Details Date Type Department Care Team (Late Contact Info) Description 06/02/2024 Scanned Document [facility] - Health Information Department [address] [place] [address] Scan, No Provider Available [address] [place] [address] [place] [address] <No scans attached> Social History Tobacco Use [...] [facility] - Internal Medicine [address] [place] [phone] Ilya Gusman MD [address] [place] [phone] Christophe Dailey MD [address] [place] [phone] 01/18/2026 1:00 PM EST Office Visit [facility] [address] [place] [address] Porsha Marsh, MITER OPERATOR [address] [place] [address] 02/22/2026 11:00 AM EDT Office Visit [facility] [address] [place] [address] [address] [place] [phone] Alonso Bea MD [address] [place] [address] [address] [place] [address] 07/17/2026 2:00 PM EDT Office Visit [facility] - Internal Medicine [address] [place] [phone] Ilya Gusman MD [address] [place] [phone] 07/19/2026 11:40 AM EDT Office Visit [facility] [address] [place] [address] Yesi Perez MD [address] [place] [address] documented as of this encounter Visit Diagnoses Not on filedocumented in this encounter Additional Health Concerns Infection Onset Date Last Indicated Resolved Time C difficile Rule-Out 11/01/2024 11/02/2024 024 9:43 AM EST Assessment Noted Time PHQ-9 Depression Total Score: 6 04/28/20 24 1:53 PM EDT documented as of this encounter Care Teams Non Destructive Testing Technician Relationship Specialty Start Date End Date Ilya Gusman MD [address] [place] [address] [phone] PCP - General 05/14/17 [facility] 09/01/25 documented as of this encounter
--- OUTSIDE RECORDS SUMMARY | 2025-09-23 20:56 | XMS_ITS | Encounter Summary ---
Author Organization [facility] ystem Address [address] [place] [address] Phone Care Team Providers Care Manager Coding Name Role Phone Ilya Gusman MD Primary Care Provider [phone] Encounter Details Date Type Department Care Team ([facility] Contact Info) Description 08/11/2024 Orders Only [facility] [place] [facility] - Health Information Department [address] [place] [address] Scan, No Provider Available [address] [place] [address] Dr. Eleazar [place] [phone] Social History Tobacco Use Types Packs/Day Years [...] Upcoming Encounters Date Type Department Care Team ([facility] Contact Info) Description 10/06/2025 10:45 AM EST Office Visit [facility] - Internal Medicine [address] [place] [phone] Ilya Gusman MD [address] [place] [phone] Christophe Dailey MD [address] [place] [phone] 01/18/2026 1:00 PM EST Office Visit [facility] [address] [place] [address] Porsha Marsh, LANDFILL ATTENDANT [address] [place] [address] 02/22/2026 11:00 AM EDT Office Visit [facility] [address] [place] [address] [address] [place] [phone] Alonso Bae MD [address] [place] [address] [address] [place] [address] 07/17/2026 2:00 PM EDT Office Visit [facility] - Internal Medicine [address] [place] [address] [phone] Ilya Gusman MD [address] [place] [phone] 07/19/2026 11:40 AM EDT Office Visit [address] [address] Yesi Perez MD [address] [place] [place] [address] documented as of this encounter Procedures Procedure Name Priority Date/Time Associated Diagnosis Comments MR INO COX Routine 08/11/2024 5:31 PM EDT documented in this encounter Results * MR Ino cox (08/11/2024 5:31 PM EDT) us No Provider Available Scan LAB BLOOD ORDERABLES Final Result documented in this encounter Visit Diagnoses Not on filedocumented in this encounter Additional Health Concerns Infection Onset Date Last Indicated Resolved Time C difficile Rule-Out 11/01/2024 11/02/2024 024 9:43 AM EST Assessment Noted Time PHQ-9 Depression Total Score: 6 04/28/20 24 1:53 PM EDT documented as of this encounter Care Teams Manager Coding Relationship Specialty Start Date End Date Ilya Gusman MD [address] [place] [address] [phone] PCP - General 05/14/17 [facility] 09/01/25 documented as of this encounter
--- OUTSIDE RECORDS SUMMARY | 2025-09-23 20:56 | XMS_ITS | Encounter Summary ---
Author Organization [facility]stem Address [address] [place] [address] Phone Care Team Providers Care Lead Driver Name Role Phone Ilya Gusman MD Primary Care Provider [phone] Encounter Details Date Type Department Care Team (Late st Contact Info) Description 06/07/2021 Telephone [facility] 5 [address] [place] [phone] Marla Renee, RN Social History Tobacco Use Types Packs/Day [...] have Coronavirus / COVID-19? No / Unsure 05/25/2021 12:06 PM EDT documented as of this encounter Plan of Treatment Upcoming Encounters Date Type Department Care Team (Late st Contact Info) Description 10/06/2025 10:45 AM EST Office Visit [facility] - Internal Medicine [address] [place] [phone] Ilya Gusman MD [address] [place] [phone] Christophe Dailey MD [address] [place] [phone] 01/18/2026 1:00 PM EST Office Visit [facility] [address] [place] [address] Porsha Marsh CNP [address] [place] [address] 02/22/2026 11:00 AM EDT Office Visit [facility] [address] [place] [address] [address] [place] [phone] Alonso Bae MD [address] [place] [address] [address] [place] [address] 07/17/2026 2:00 PM EDT Office Visit [facility] - Internal Medicine [address] [place] [phone] Ilya Gusman MD [address] [place] [phone] 07/19/2026 11:40 AM EDT Office Visit [facility] [address] [place] [address] 269[address] Yesi Perez MD [address] [place] [address] documented as of this encounter Visit Diagnoses [...] documented as of this encounter Care Teams Lead Driver Relationship Specialty Start Date End Date Ilya Gusman MD [address] [place] [phone] PCP - General 05/14/17 [facility] 09/01/25 documented as of this encounter
--- OUTSIDE RECORDS SUMMARY | 2025-09-23 20:56 | XMS_ITS | Encounter Summary ---
Author Organization [facility] Address [address] [place] [address] Phone Care Team Providers Care Rn Access Name Role Phone Ilya Gusman MD Primary Care Provider [phone] Encounter Details Date Type Department Care Team ([facility] Contact Info) Description 06/09/2024 Orders Only [facility] - Health Information Department [address] [place] [address] Scan, No Provider Available [address] [place] [address] Dr. Eleazar [place] [phone] Social History Tobacco Use Types Packs/Day Years [...] Upcoming Encounters Date Type Department Care Team ([facility] Contact Info) Description 10/06/2025 10:45 AM EST Office Visit [facility] - Internal Medicine [address] [place] [address] [phone] Ilya Gusman MD [address] [place] [phone] Christophe Dailey MD [address] [place] [address] [phone] 01/18/2026 1:00 PM EST Office Visit [facility] [address] [place] [address] Porsha Marsh, PIN DRAFTER OPERATOR [address] [place] [address] 02/22/2026 11:00 AM EDT Office Visit [facility] [address] [place] [address] [address] [place] [phone] Alonso Bae MD [address] [place] [address] [address] [place] [address] 07/17/2026 2:00 PM EDT Office Visit [facility] - Internal Medicine [address] [place] [address] [phone] Ilya Gusman MD [address] [place] [phone] 07/19/2026 11:40 AM EDT Office Visit [facility] [address] [place] [address] Yesi Perez MD [address] [place] [address] documented as of this encounter Procedures Procedure Name Priority Date/Time Associated Diagnosis Comments MR INO IMAGING Routine 06/08/2024 12:[address] ABDOMEN PELVIS W CONTRAST Routine 06/07/2024 12:41 PM EDT documented in this encounter Results * MR Ino imaging (06/08/2024 12:57 PM EDT) Anatomical Region Laterality Modality Other us No Provider Available Scan LAB CHG PERFORMABLES Final Result * CT abdomen pelvis with contrast per algorithm (06/07/2024 12:41 PM EDT) Anatomical Region Laterality Modality Body Computed Tomogra [...] as of this encounter Care Teams Rn Access Relationship Specialty Start Date End Date Ilya Gusman MD [address] [place] [phone] PCP - General 05/14/17 [facility] 09/01/25 documented as of this encounter
--- OUTSIDE RECORDS SUMMARY | 2025-09-23 20:56 | XMS_ITS | Encounter Summary ---
Author Organization [facility] ystem Address [address] [place] [address] Phone Care Team Providers Care Centerless Grinder Operator Name Role Phone Ilya Gusman MD Primary Care Provider [phone] Encounter Details Date Type Department Care Team (Late st Contact Info) Description 06/21/2021 Scanned Document [facility] - Health Information Department [address] [place], [place] [phone] Scan, No Provider Available [address] [place] [address] <No scans attached> Social History Tobacco Use [...] have Coronavirus / COVID-19? No / Unsure 06/19/2021 11:19 AM EDT documented as of this encounter Plan of Treatment Upcoming Encounters Date Type Department Care Team (Late st Contact Info) Description 10/06/2025 10:45 AM EST Office Visit [facility] - Internal Medicine [address] [place] [phone] Ilya Gusman MD [address] [place] [phone] Christophe Dailey MD [address] [place] [phone] 01/18/2026 1:00 PM EST Office Visit [facility] [address] [place] [address] Porsha Marsh, TILE EDGER [address] [place] [address] 02/22/2026 11:00 AM EDT Office Visit [facility] [address] [place] [address] [address] [place] [phone] Alonso Bae MD [address] [place] [address] [address] [place] [address] 07/17/2026 2:00 PM EDT Office Visit [facility] - Internal Medicine [address] [place] [phone] Ilya Gusman MD [address] [place] [phone] 07/19/2026 11:40 AM EDT Office Visit [facility] [address] [place] [address] Yesi Perez MD [address] [place] [address] documented as of this encounter Visit Diagnoses [...] documented as of this encounter Care Teams Centerless Grinder Operator Relationship Specialty Start Date End Date Ilya Gusman MD [address] [place] [address] [phone] PCP - General 05/14/17 [facility] 09/01/25 documented as of this encounter
--- OUTSIDE RECORDS SUMMARY | 2025-09-23 20:56 | XMS_ITS | Encounter Summary ---
Author Organization [facility] Address [address] [place] [address] Phone Care Team Providers Care Tattoo Identifier Name Role Phone Ilya Gusman MD Primary Care Provider [phone] Encounter Details Date Type Department Care Team (Late Contact Info) Description 09/16/2018 Orders Only [facility] - Internal Medicine [address] [place] [phone] Ilya Gusman MD [address] [place] [phone] Abnormal drug screen (Primary Dx) Social History Tobacco Use Types [...] Visit [facility] - Internal Medicine [address] [place] [phone] Ilya Gusman MD [address] [place] [phone] Christophe Dailey MD [address] [place] [phone] 01/18/2026 1:00 PM EST Office Visit [facility] [address] [place] [address] Porsha Marsh, PSYCHOLOGIST MILITARY PERSONNEL [address] [place] [address] 02/22/2026 11:00 AM EDT Office Visit [facility] [address] [place] [address] [address] [place] [phone] Alonso Bae MD [address] [place] [address] [address] [place] [address] 07/17/2026 2:00 PM EDT Office Visit [facility] - Internal Medicine [address] [place] [address] [phone] Ilya Gusman MD [address] [place] [phone] 07/19/2026 11:40 AM EDT Office Visit [facility] [address] [place] [address] Yesi Perez MD [address] [place] [address] documented as of this encounter Results * Benzodiazepines, Quant, GC/MS, Urine (SEND OUT) (09/16/2018 2:32 PM EDT) [facility] Chain Of Custody NO 09/20/20 18 10:23 AM EDT [facility] Comment: * These results are for medical treatment only. * * Analysis was performed as non-forensic testing. * Oxazepam NONE DETECTED ng/mL 09/20/2018 10:23 AM EDT [facility] Nordiazepam NONE DETECTED ng/mL 09/20/2018 10:23 AM EDT [facility] Lorazepam NONE DETECTED ng/mL 09/20/2018 10:23 AM EDT [facility] Temazepam NONE DETECTED ng/mL 09/20/2018 10:23 AM EDT [facility] Alphahydroxyalprazolam NONE DETECTED ng/mL 09/20/2018 10:23 AM EDT [facility] Alphahydroxytriazolam NONE DETECTED ng/mL 09/20/2018 10:23 AM EDT [facility] (Always Message) SEE COMMENT 018 10:23 AM EDT [facility] Comment: Drug Cutoff Oxazepam 50 Nordiazepam 50 Lorazepam 50 Temazepam 50 Alphahydroxyalprazolam 50 Alphahydroxytriazolam 50 This test was performed by GC/MS only. Immunoassay screen, if ordered, was performed and reported under a separate test code. Urine Urine specimen obtained by clean catch procedure / Unknown Non-blood Collection / Unknown 09/16/2018 2:32 PM EDT 09/16/2018 2:32 PM EDT Narrative [facility] - 09/20/2018 10:23 AM EDT Performing Organization Information: Site ID: [id number] Name: [employer] [facility] Address: [address] [place] [address], [place] [address] Director: Pa Ramey us Ilya Gusman MD LAB URINE ORDERABLES Final Resu lt [facility] [address] [place] [address] documented in this encounter Visit Diagnoses Diagnosis Abnormal drug screen- Primary documented in this encounter Additional Health [...] documented as of this encounter Care Teams Tattoo Identifier Relationship Specialty Start Date End Date Ilya Gusman MD [address] [place] [address] [phone] PCP - General 05/14/17 [facility] 09/01/25 documented as of this encounter
--- OUTSIDE RECORDS SUMMARY | 2025-09-23 20:56 | XMS_ITS | Encounter Summary ---
Author Organization [facility] Address [address] [place] [address] Phone Care Team Providers Care Bondactor Machine Operator Name Role Phone Ilya Gusman MD Primary Care Provider [phone] Encounter Details Date Type Department Care Team (Late Contact Info) Description 07/29/2018 Scanned Document [facility] - Health Information Department [address] [place] [address] Scan, No Provider Available [address] [place] [address] [place] [address] <No scans attached> Social History Tobacco Use [...] [facility] - Internal Medicine [address] [place] [phone] Ilya Gusman MD [address] [place] [phone] Christophe Dailey MD [address] [place] [phone] 01/18/2026 1:00 PM EST Office Visit [facility] [address] [place] [address] Porsha Marsh, ORACLE PROGRAMMER ANALYST [address] [place] [address] 02/22/2026 11:00 AM EDT Office Visit [facility] [address] [place] [address] [address] [place] [phone] Alonso Bae MD [address] [place] [address] 2 [place] [address] 07/17/2026 2:00 PM EDT Office Visit [facility] - Internal Medicine [address] [place] [phone] Ilya Gusman MD [address] [place] [phone] 07/19/2026 11:40 AM EDT Office Visit [facility] [address] [place] [address] Yesi Perez MD [address] [place] [address] documented as of this encounter Visit Diagnoses [...] documented as of this encounter Care Teams Bondactor Machine Operator Relationship Specialty Start Date End Date Ilya Gusman MD [address] [place] [address] [phone] PCP - General 05/14/17 [facility] 09/01/25 documented as of this encounter
--- OUTSIDE RECORDS SUMMARY | 2025-09-23 20:56 | XMS_ITS | Encounter Summary ---
Author Organization [facility] ystem Address [address] [place] [address] Phone Care Team Providers Care Global Sales Director Name Role Phone Ilya Gusman MD Primary Care Provider [phone] Encounter Details Date Type Department Care Team (Late st Contact Info) Description 06/26/2021 Orders Only [facility] - Health Information Department [address] [place] [address] Scan, No Provider Available [address] [facility] [place] [address] Social History Tobacco Use Types Packs/Day Years [...] 10/06/2025 10:45 AM EST Office Visit [facility] - Internal Medicine [address] [place] [phone] Ilya Gusman MD [address] [place] [phone] Christophe Dailey MD [address] [place] [phone] 01/18/2026 1:00 PM EST Office Visit [facility] [address] [place] [address] Porsha Marsh, DAY LIGHT RELIEF OPERATOR [address] [place] [address] 02/22/2026 11:00 AM EDT Office Visit [facility] [address] [place] [address] [address] [place] [phone] Alonso Bae MD [address] [place] [address] [address] [place] [address] 07/17/2026 2:00 PM EDT Office Visit [facility] - Internal Medicine [address] [place] [phone] Ilya Gusman MD [address] [place] [phone] 07/19/2026 11:40 AM EDT Office Visit [facility] [address] [place] [address] Yesi Perez MD [address] [place] [address] documented as of this encounter Procedures Procedure Name Priority Date/Time Associated Diagnosis Comments MR INO COX Routine 06/21/2021 CT ABDOMEN PELVIS W CONTRAST Routine 06/21/2021 CT HEAD WO CONTRAST Routine 06/21/2021 ECG 12-LEAD Today 06/21/2021 documented in this encounter Results * MR Ino cox (06/21/2021) us No Provider Available Scan LAB BLOOD ORDERABLES Final Result * CT head without contrast (06/21/2021) Anatomical Region Laterality Modality Head and Neck Computed Tomogra phy us No Provider Available Scan IMG CT PROCEDURES Fin al Result * CT abdomen pelvis with contrast (06/21/2021) Anatomical Region Laterality Modality Body Computed Tomogra phy us No Provider Available Scan IMG CT PROCEDURES Fin al Result * ECG (06/21/2021) us No Provider Available Scan ECG ORDERABLES [...] documented as of this encounter Care Teams Global Sales Director Relationship Specialty Start Date End Date Ilya Gusman MD [address] [place] [address] [phone] PCP - General 05/14/17 [facility] 09/01/25 documented as of this encounter
--- OUTSIDE RECORDS SUMMARY | 2025-09-23 20:56 | XMS_ITS | Encounter Summary ---
Author Organization [facility] Address [address] [place] [address] Phone Care Team Providers Care Automobile Service Advisor Name Role Phone Ilya Gusman MD Primary Care Provider [phone] Reason for Visit * Reason Onset Date Comments Med Refill 10/22/2018 Encounter Details Date Type Department Care Team (Late st Contact Info) Description 10/22/2018 Refill [facility] - Internal Medicine [address] [place] [phone] Ilya Gusman MD [address] [place] [phone] Med Refill Social History Tobacco Use [...] encounter Miscellaneous Notes * Telephone Encounter - BeatrizSarahy alves PhT - 10/22/2018 8:35 AM EST Oxycodone [facility]acy: [facility] DATE OF LAST REFILL? 10/08/18 FREQUENCY OF REFILLS? 13 DATE REFILL IS DUE? 10/21/18 IS THIS AN EARLY REFILL? No CONTROLLED SUBSTANCE AGREEMENT ON FILE? No Last UDS: 09/16/18 DATE OF LAST OFFICE VISIT: 09/25/18 DATE OF NEXT OFFICE VISIT: Future Appointments Date Time Provider Department Center 10/23/2018 9:30 AM Bethanie Zepeda NP PPK PAIN PPK 01/13/2019 2:40 PM Lulu Mata NP LNG IM LNG 03/18/2019 8:00 AM Luz Maria Victor PA-C [address]IN E[address] LIGHT INSPECTOR reviewed on 10/22/2018 by Ian PICKETT and no red flags were noted Ian Pierson Refill Team, Loft documented in this encounter Plan of Treatment Upcoming Encounters Date Type Department Care Team (Late st Contact Info) Description 10/06/2025 10:45 AM EST Office Visit [facility] - Internal Medicine [address] [place] [phone] Ilya Gusman MD [address] [place] [phone] Christophe Dailey MD [address] [place] [address] [phone] 01/18/2026 1:00 PM EST Office Visit [facility] [address] [address] Porsha Marsh, NATIONAL ACCOUNT EXECUTIVE [address] [place] [address] 02/22/2026 11:00 AM EDT Office Visit [facility] [address] [facility] [address] [place] [phone] Alonso Bae MD 780 [facility] [address] [place] [address] 07/17/2026 2:00 PM EDT Office Visit [facility] - Internal Medicine [address] [place] [phone] Ilya Gusman MD [address] [place] [phone] 07/19/2026 11:40 AM EDT Office Visit [facility] 70 [facility] 1 [place] [address] Yesi Perez MD 70 [place] [address] documented as of this encounter Visit Diagnoses [...] 10:39 AM EST C difficile Rule-Out 12/20/2023 12/21/202328/2 024 1:20 PM EST C difficile Rule-Out 11/01/2024 11/02/2024 024 9:43 AM EST documented as of this encounter Care Teams Automobile Service Advisor Relationship Specialty Start Date End Date Ilya Gusman MD [address] [place] [phone] PCP - General 05/14/17 [facility] 09/01/25 documented as of this encounter
--- OUTSIDE RECORDS SUMMARY | 2025-09-23 20:56 | XMS_ITS | Encounter Summary ---
Author Organization [facility] Address [address] [place] [address] Phone Care Team Providers Care Director Of Music Name Role Phone Ilya Gusman MD Primary Care Provider [phone] Reason for Visit * Reason Onset Date Comments Med Refill 10/07/2018 Encounter Details Date Type Department Care Team (Late st Contact Info) Description 10/07/2018 Refill [facility] - Internal Medicine [address] [place] [address] [phone] Sondra Chandra MD [address] [place] [phone] Med Refill Social History Tobacco Use [...] encounter Miscellaneous Notes * Telephone Encounter - StudSheron brown PhT - 10/07/2018 10:43 AM EST Oxycodone 10mg Pharmacy: [facility] DATE OF LAST REFILL? 09/24/18 FREQUENCY OF REFILLS? 14 days DATE REFILL IS DUE? 10/08/18 IS THIS AN EARLY REFILL? No CONTROLLED SUBSTANCE AGREEMENT ON FILE? Yes Last UDS: 09/16/18 DATE OF LAST OFFICE VISIT: 09/25/18 DATE OF NEXT OFFICE VISIT: Future Appointments Date Time Provider Department Center 01/13/2019 2:40 PM Lulu Mata NP LNG IM LNG 03/18/2019 8:00 AM Luz Maria Victor PA-C KIN ENC KIN THREAD PULLER reviewed on 10/07/2018 by Ian SORIA and no red flags were noted Ian Soria/CO Refill Team, Loft * Telephone Encounter - Sheron Hoover PhT - 10/07/2018 10:43 AM ESTFrom: Adolfo Zaragoza To: Sondra Chandra MD Sent: 10/07/2018 8:22 AM EST Subject: Medication Renewal Request Original authorizing provider: MD Adolfo PENA would like a refill of the following medications: oxyCODONE (ROXICODONE) 10 MG tablet [SONDRA CHANDRA MD] Preferred pharmacy: [id number] - [address] Delivery method: Pickup Preferred pick-up date and time: 10/07/2018 Comment: documented in this encounter Plan of Treatment Upcoming Encounters Date Type Department Care Team (Late st Contact Info) Description 10/06/2025 10:45 AM EST Office Visit [facility] - Internal Medicine [address] [place] [address] [phone] Ilya Gusman MD [address] [place] [phone] Sondra Chandra MD [address] [place] [phone] 01/18/2026 1:00 PM EST Office Visit [facility] 70 [facility] 1 [place] [address] Porsha Marsh, ALTITUDE CHAMBER TECHNICIAN [address] [place] [address] 02/22/2026 11:00 AM EDT Office Visit [facility] [address] [facility] [address] [place] [phone] Alonso Bae MD [address] [place] [address] [address] [place] [address] 07/17/2026 2:00 PM EDT Office Visit [facility] - Internal Medicine [address] [place] [address] [phone] Ilya Gusman MD [address] [place] [phone] 07/19/2026 11:40 AM EDT Office Visit [facility] [address] [place] [address] Yesi Perez MD [address] [place] [address] documented as of this encounter Visit Diagnoses [...] of this encounter Care Teams Director Of Music Relationship Specialty Start Date End Date Ilya Gusman MD [address] [place] [phone] PCP - General 05/14/17 [facility] 09/01/25 documented as of this encounter
--- OUTSIDE RECORDS SUMMARY | 2025-09-23 20:56 | XMS_ITS | Encounter Summary ---
Author Organization [facility] Address [address] [place] [address] Phone Care Team Providers Care Investigation Division Lieutenant Name Role Phone Ilya Gusman MD Primary Care Provider [phone] Encounter Details Date Type Department Care Team ([facility] Contact Info) Description 06/03/2024 Orders Only [facility] - Health Information Department [address] [place] [phone] Scan, No Provider Available [address] [place] [address] [address]. [place]azar [place] [phone] Social History Tobacco Use Types Packs/Day Years [...] Upcoming Encounters Date Type Department Care Team ([facility] Contact Info) Description 10/06/2025 10:45 AM EST Office Visit [facility] - Internal Medicine [address] [place] [phone] Ilya Gusman MD [address] [place] [phone] Christophe Dailey MD [address] [place] [phone] 01/18/2026 1:00 PM EST Office Visit [facility] [address] [place] [address] Porsha Marsh, CALENDER LET OFF OPERATOR [address] [place] [address] 02/22/2026 11:00 AM EDT Office Visit [facility] [address] [place] [address] [address] [place] [phone] Alonso Bae MD [address] [place] [address] [address] [place] [address] 07/17/2026 2:00 PM EDT Office Visit [facility] - Internal Medicine [address] [place] [phone] Ilya Gusman MD [address] [place] [phone] 07/19/2026 11:40 AM EDT Office Visit [facility] [address] [place] [address] Yesi Perez MD [address] [place] [address] documented as of this encounter Procedures Procedure Name Priority Date/Time Associated Diagnosis Comments ECG 12-LEAD Today 06/02/2024 3:04 PM EDT MR INO LABS Routine 06/02/2024 10:50 AM EDT XR CHEST 2 VW Routine 06/02/2024 10:32 AM EDT documented in this encounter Results * ECG (06/02/2024 3:04 PM EDT) us No Provider Available Scan ECG ORDERABLES Final Result * MR [facility] (06/02/2024 10:50 AM EDT) us No Provider Available Scan LAB BLOOD ORDERABLES Final Result * X-ray chest 2 views (06/02/2024 10:32 AM EDT) Anatomical Region Laterality Modality Body Radiographic Carmelina [...] documented as of this encounter Care Teams Investigation Division Lieutenant Relationship Specialty Start Date End Date Ilya Gusman MD [address] [place] [phone] PCP - General 05/14/17 [facility] 09/01/25 documented as of this encounter
--- OUTSIDE RECORDS SUMMARY | 2025-09-23 20:56 | XMS_ITS | Encounter Summary ---
Author Organization [facility] Address [address] [place] [address] Phone Care Team Providers Care Ship Propeller Finisher Name Role Phone Ilya Gusman MD Primary Care Provider [phone] Encounter Details Date Type Department Care Team ([facility] Contact Info) Description 06/25/2024 Orders Only [facility] - Health Information Department [address] [place] [phone] Scan, No Provider Available [address] [place] [address] Dr. [place]azar [place] [phone] Social History Tobacco Use Types Packs/Day Years [...] Upcoming Encounters Date Type Department Care Team ([facility] Contact Info) Description 10/06/2025 10:45 AM EST Office Visit [facility] - Internal Medicine [address] [place] [phone] Ilya Gusman MD [address] [place] [phone] Christophe Dailey MD [address] [place] [phone] 01/18/2026 1:00 PM EST Office Visit [facility] [address] [place] [address] Porsha Marsh, [employer] [address] [place] [address] 02/22/2026 11:00 AM EDT Office Visit [facility] [address] [place] [address] [address] [place] [phone] Alonso Bae MD [address] [place] [address] [address] [place] [address] 07/17/2026 2:00 PM EDT Office Visit [facility] - Internal Medicine [address] [place] [phone] Ilya Gusman MD [address] [place] [phone] 07/19/2026 11:40 AM EDT Office Visit [address] [address] Yesi Perez MD [address] [place] [address] documented as of this encounter Procedures Procedure Name Priority Date/Time Associated Diagnosis Comments DIABETES EYE EXAM Routine 06/23/2024 2:43 PM EDT documented in this encounter Results * Hm Diabetes Eye Exam (06/23/2024 2:43 PM EDT) us No Provider Available Scan HEALTH MAINTENANCE Fi nal Result documented in this encounter Visit Diagnoses Not on filedocumented in this encounter Additional Health Concerns Infection Onset Date Last Indicated Resolved Time C difficile Rule-Out 11/01/2024 11/02/2024 024 9:43 AM EST Assessment Noted Time PHQ-9 Depression Total Score: 6 04/28/20 24 1:53 PM EDT documented as of this encounter Care Teams Ship Propeller Finisher Relationship Specialty Start Date End Date Ilya Gusman MD [address] [place] [phone] PCP - General 05/14/17 [facility] 09/01/25 documented as of this encounter
--- OUTSIDE RECORDS SUMMARY | 2025-09-23 20:56 | XMS_ITS | Encounter Summary ---
Author Organization [facility] ystem Address [address] [place] [address] Phone Care Team Providers Care Aircraft Skin Burnisher Name Role Phone Ilya Gusman MD Primary Care Provider [phone] Encounter Details Date Type Department Care Team (Late st Contact Info) Description 06/27/2021 Orders Only [facility] - Health Information Department [address] [place] [address] Scan, No Provider Available [address] [facility] [place] [address] Social History Tobacco Use Types Packs/Day Years [...] 10:45 AM EST Office Visit [facility] - Internal Medicine [address] [place] [phone] Ilya Gusman MD [address] [place] [phone] Christophe Dailey MD [address] [place] [phone] 01/18/2026 1:00 PM EST Office Visit [facility] [address] [place] [address] Porsha Marsh, WEB COORDINATOR [address] [place] [address] 02/22/2026 11:00 AM EDT Office Visit [facility] [address] [place] [address] [address] [place] [phone] Alonso Bae MD [address] [place] [address] [address] [place] [address] 07/17/2026 2:00 PM EDT Office Visit [facility] - Internal Medicine [address] [place] [phone] Ilya Gusman MD [address] [place] [phone] 07/19/2026 11:40 AM EDT Office Visit [facility] [address] [place] [address] Yesi Perez MD [address] [place] [address] documented as of this encounter Procedures Procedure Name Priority Date/Time Associated Diagnosis Comments ECG 12-LEAD Today 04/18/2021 documented in this encounter Results * ECG (04/18/2021) us No Provider Available Scan ECG ORDERABLES [...] as of this encounter Care Teams Aircraft Skin Burnisher Relationship Specialty Start Date End Date Ilya Gusman MD [address] [place] [phone] PCP - General 05/14/17 [facility] 09/01/25 documented as of this encounter
--- OUTSIDE RECORDS SUMMARY | 2025-09-23 20:56 | XMS_ITS | Encounter Summary ---
Author Organization [facility]stem Address [address] [place] [address] Phone Care Team Providers Care Graphic Illustrator Name Role Phone Ilya Gusman MD Primary Care Provider [phone] Encounter Details Date Type Department Care Team (Late Contact Info) Description 06/07/2024 Scanned Document [facility] - Health Information Department [address] [place] [phone] Scan, No Provider Available [address] [place] [address] [place] [address] <No scans attached> Social History Tobacco Use [...] Upcoming Encounters Date Type Department Care Team ([facility] Contact Info) Description 10/06/2025 10:45 AM EST Office Visit [facility] - Internal Medicine [address] [place] [phone] Ilya Gusman MD [address] [place] [phone] Christophe Dailey MD [address] [place] [address] [phone] 01/18/2026 1:00 PM EST Office Visit [facility] [address] [place] [address] Porsha Marsh, BIGHT MAKER [address] [place] [address] 02/22/2026 11:00 AM EDT Office Visit [facility] [address] [place] [address] [address] [place] [phone] Alonso Bae MD [address] [place] [address] [address] [place] [address] 07/17/2026 2:00 PM EDT Office Visit [facility] - Internal Medicine [address] [place] [phone] Ilya Gusman MD [address] [place] [phone] 07/19/2026 11:40 AM EDT Office Visit [facility] [address] [place] [address] Yesi Perez MD [address] [place] [address] documented as of this encounter Visit Diagnoses Not on filedocumented in this encounter Additional Health Concerns Infection Onset Date Last Indicated Resolved Time C difficile Rule-Out 11/01/2024 11/02/2024 024 9:43 AM EST Assessment Noted Time PHQ-9 Depression Total Score: 6 04/28/20 24 1:53 PM EDT documented as of this encounter Care Teams Graphic Illustrator Relationship Specialty Start Date End Date Ilya Gusman MD [address] [place] [phone] PCP - General 05/14/17 [facility] 09/01/25 documented as of this encounter
--- OUTSIDE RECORDS SUMMARY | 2025-09-23 20:56 | XMS_ITS | Encounter Summary ---
Author Organization [facility]stem Address [address] [place] [address] Phone Care Team Providers Care Fibrous Plasterer Name Role Phone Ilya Gusman MD Primary Care Provider [phone] Encounter Details Date Type Department Care Team (Late Contact Info) Description 10/19/2018 Scanned Document [facility] - Health Information Department [address] [place] [phone] Scan, No Provider Available [address] [place] [address] [facility] [address] <No scans attached> Social History Tobacco Use [...] Upcoming Encounters Date Type Department Care Team ([facility] Contact Info) Description 10/06/2025 10:45 AM EST Office Visit [facility] - Internal Medicine [address] [place] [phone] Ilya Gusman MD [address] [place] [phone] Christophe Dailey MD [address] [place] [phone] 01/18/2026 1:00 PM EST Office Visit [facility] [address] [place] [address] Porsha Marsh, FELT HAT STEAMER [address] [place] [address] 02/22/2026 11:00 AM EDT Office Visit [facility] [address] [place] [address] [address] [place] [phone] Alonso Bae MD [address] [place] [address] [address] [place] [address] 07/17/2026 2:00 PM EDT Office Visit [facility] - Internal Medicine [address] [place] [phone] Ilya Gusman MD [address] [place] [phone] 07/19/2026 11:40 AM EDT Office Visit [facility] [address] [place] [address] Yesi Perez MD [address] [place] [address] documented as of this encounter Visit Diagnoses [...] documented as of this encounter Care Teams Fibrous Plasterer Relationship Specialty Start Date End Date Ilya Gusman MD [address] [place] [phone] PCP - General 05/14/17 [facility] 09/01/25 documented as of this encounter
--- OUTSIDE RECORDS SUMMARY | 2025-09-23 20:56 | XMS_ITS | Encounter Summary ---
Author Organization [facility] Address [address] [place] [address] Care Team Providers Care Customer Engagement Analyst Name Role Phone Solis Encarnacion MD Unavailable [phone] Ilya Gusman MD Primary Care Provider [phone] Encounter Details Date Type Department Care Team (Late st Contact Info) Description 03/23/2024 Lab [facility] Orders Flaquita Jackson MD [address] [place] [phone] Social History Tobacco Use Types Packs/Day Years [...] Name Priority Date/Time Associated Diagnosis Comments CULTURE, BLOOD Routine 03/23/2024 8:46 AM EDT CULTURE, BLOOD Routine 03/23/2024 8:36 AM EDT documented in this encounter Results * Culture, Blood (03/23/2024 8:46 AM EDT) Culture No growth after 5 days BG 03/28/2024 12:01 PM EDT [facility] Blood VENOUS STRUCTURE / Unknown 03/23/2024 8:46 AM EDT 03/23/2024 11:47 AM EDT us Flaquita Jackson MD MICROBIOLOGY - GENERAL ORDER CLEMENT Final Result Performing Organization Address [facility] Co de Phone Number [facility] [address] [place] [address], [place] [phone] * Culture, Blood (03/23/2024 8:36 AM EDT) Culture No growth after 5 days BG 03/28/2024 12:01 PM EDT [facility] Blood VENOUS STRUCTURE / Unknown 03/23/2024 8:36 AM EDT 03/23/2024 11:47 AM EDT us Flaquita Jackson MD MICROBIOLOGY - GENERAL ORDER CLEMENT Final Result Performing Organization Address [facility] de Phone Number [facility] [address] [place] [address], [place] [phone] documented in this encounter Visit Diagnoses Not [...] documented as of this encounter Care Teams Customer Engagement Analyst Relationship Specialty Start Date End Date Ilya Gusman MD [address] [place] [address] PCP - General 02/12/24 Solis Encarnacion MD [address] [place] [address] Cardiac Electrophysiology 04/24/2402/22 documented as of this encounter
--- OUTSIDE RECORDS SUMMARY | 2025-09-23 20:56 | XMS_ITS | Encounter Summary ---
Author Organization [facility] ystem Address [address] [place] [address] Phone Care Team Providers Care Logistics Director Name Role Phone Ilya Gusman MD Primary Care Provider [phone] Encounter Details Date Type Department Care Team (Late Contact Info) Description 06/13/2024 Scanned Document [facility] - Health Information Department [address] [place] [address] Scan, No Provider Available [address] [place] [address] [place] [address] <No scans attached> Social History Tobacco Use [...] Upcoming Encounters Date Type Department Care Team ([facility] Contact Info) Description 10/06/2025 10:45 AM EST Office Visit [facility] - Internal Medicine [address] [place] [phone] Ilya Gusman MD [address] [place] [phone] Christophe Dailey MD [address] [place] [address] [phone] 01/18/2026 1:00 PM EST Office Visit [facility] [address] [place] [address] Porsha Marsh, PADDER CUSHION [address] [place] [address] 02/22/2026 11:00 AM EDT Office Visit [facility] [address] [place] [address] [address] [place] [phone] Alonso Bae MD [address] [place] [address] [address] [place] [address] 07/17/2026 2:00 PM EDT Office Visit [facility] - Internal Medicine [address] [place] [phone] Ilya Gusman MD [address] [place] [phone] 07/19/2026 11:40 AM EDT Office Visit [facility] [address] [place] [address] Yesi Perez MD [address] [place] [address] documented as of this encounter Visit Diagnoses Not on filedocumented in this encounter Additional Health Concerns Infection Onset Date Last Indicated Resolved Time C difficile Rule-Out 11/01/2024 11/02/2024 024 9:43 AM EST Assessment Noted Time PHQ-9 Depression Total Score: 6 04/28/20 24 1:53 PM EDT documented as of this encounter Care Teams Logistics Director Relationship Specialty Start Date End Date Ilya Gusman MD [address] [place] [address] [phone] PCP - General 05/14/17 [facility] 09/01/25 documented as of this encounter
--- OUTSIDE RECORDS SUMMARY | 2025-09-23 20:56 | XMS_ITS | Encounter Summary ---
Author Organization [facility] ystem Address [address] [place] [address] Phone Care Team Providers Care Foreign Law Consultant Name Role Phone Ilya Gusman MD Primary Care Provider [phone] Encounter Details Date Type Department Care Team (Late Contact Info) Description 09/29/2018 Scanned Document [facility] - Health Information Department [address] [place] [address] Scan, No Provider Available [address] [place] [address] [facility] [place] [address] <No scans attached> Social History Tobacco Use [...] Upcoming Encounters Date Type Department Care Team ([facility] Contact Info) Description 10/06/2025 10:45 AM EST Office Visit [facility] - Internal Medicine [address] [place] [phone] Ilya Gusman MD [address] [place] [phone] Christophe Dailey MD [address] [place] [phone] 01/18/2026 1:00 PM EST Office Visit [facility] [address] [place] [address] Porsha Marsh, MARKETING EDITOR [address] [place] [address] 02/22/2026 11:00 AM EDT Office Visit [facility] [address] [place] [address] [address] [place] [phone] Alonso Bae MD [address] [place] [address] [address] [place] [address] 07/17/2026 2:00 PM EDT Office Visit [facility] - Internal Medicine [address] [place] [phone] Ilya Gusman MD [address] [place] [phone] 07/19/2026 11:40 AM EDT Office Visit [facility] [address] [place] [address] Yesi Perez MD [address] [place] [address] documented as of this encounter Visit Diagnoses [...] documented as of this encounter Care Teams Foreign Law Consultant Relationship Specialty Start Date End Date Ilya Gusman MD [address] [place] [phone] PCP - General 05/14/17 [facility] 09/01/25 documented as of this encounter
--- OUTSIDE RECORDS SUMMARY | 2025-09-23 20:56 | XMS_ITS | Encounter Summary ---
Author Organization [facility] ystem Address [address] [place] [address] Phone Care Team Providers Care Banquet Bartender Name Role Phone Ilya Gusman MD Primary Care Provider [phone] Encounter Details Date Type Department Care Team (Late Contact Info) Description 06/04/2024 Scanned Document [facility] - Health Information Department [address] [place] [address] Scan, No Provider Available [address] [place] [address] [place] [address] <No scans attached> Social History Tobacco Use [...] Upcoming Encounters Date Type Department Care Team ([facility] Contact Info) Description 10/06/2025 10:45 AM EST Office Visit [facility] - Internal Medicine [address] [place] [phone] Ilya Gusman MD [address] [place] [phone] Christophe Dailey MD [address] [place] [address] [phone] 01/18/2026 1:00 PM EST Office Visit [facility] [address] [place] [address] Porsha Marsh, MANAGER WOUND [address] [place] [address] 02/22/2026 11:00 AM EDT Office Visit [facility] [address] [place] [address] [address] [place] [phone] Alonso Bae MD [address] [place] [address] [address] [place] [address] 07/17/2026 2:00 PM EDT Office Visit [facility] - Internal Medicine [address] [place] [phone] Ilya Gusman MD [address] [place] [phone] 07/19/2026 11:40 AM EDT Office Visit [facility] [address] [place] [address] Yesi Perez MD [address] [place] [address] documented as of this encounter Visit Diagnoses Not on filedocumented in this encounter Additional Health Concerns Infection Onset Date Last Indicated Resolved Time C difficile Rule-Out 11/01/2024 11/02/2024 024 9:43 AM EST Assessment Noted Time PHQ-9 Depression Total Score: 6 04/28/20 24 1:53 PM EDT documented as of this encounter Care Teams Banquet Bartender Relationship Specialty Start Date End Date Ilya Gusman MD [address] [place] [address] [phone] PCP - General 05/14/17 [facility] 09/01/25 documented as of this encounter
--- OUTSIDE RECORDS SUMMARY | 2025-09-23 20:56 | XMS_ITS | Encounter Summary ---
Author Organization [facility] ystem Address [address] [place] [address] Phone Care Team Providers Care Igniter Capper Name Role Phone Ilya Gusman MD Primary Care Provider [phone] Encounter Details Date Type Department Care Team (Late st Contact Info) Description 07/01/2021 Scanned Document [facility] - Health Information Department [address] [place], [place] [phone] Scan, No Provider Available [address] [place] [address] <No scans attached> Social History Tobacco Use [...] Visit [facility] - Internal Medicine [address] [place] [phone] Ilya Gusman MD [address] [place] [phone] Christophe Dailey MD [address] [place] [phone] 01/18/2026 1:00 PM EST Office Visit [facility] [address] [place] [address] Porsha Marsh, MORTGAGE ADVISOR [address] [place] [address] 02/22/2026 11:00 AM EDT Office Visit [facility] [address] [place] [address] [address] [place] [phone] Alonso Bae MD [address] [place] [address] [address] [place] [address] 07/17/2026 2:00 PM EDT Office Visit [facility] - Internal Medicine [address] [place] [phone] Ilya Gusman MD [address] [place] [phone] 07/19/2026 11:40 AM EDT Office Visit [facility] [address] [place] [address] Yesi Perez MD [address] [place] [address] documented as of this encounter Visit Diagnoses [...] documented as of this encounter Care Teams Igniter Capper Relationship Specialty Start Date End Date Ilya Gusman MD [address] [place] [address] [phone] PCP - General 05/14/17 [facility] 09/01/25 documented as of this encounter
--- OUTSIDE RECORDS SUMMARY | 2025-09-23 20:56 | XMS_ITS | Encounter Summary ---
Author Organization [facility] Address [address] [place] [address] Phone Care Team Providers Care Director Loss Prevention Name Role Phone Ilya Gusman MD Primary Care Provider [phone] Reason for Referral * Consultation (1 Month) - Closed Specialty Diagnoses / Procedures Referred By [place] blankenship Referred To Contact Orthopedics Diagnoses Left knee injury, initial encounter Ilya Gusman MD [address] [place] [phone] Phone: tel: fax: Tc Story MD [address] [place] [address] Phone: tel: fax: Referral ID Status Reason Start Date Expiration Date V isits Requested Visits Authorized [id number] Closed Specialty Services Required 02/23/2018 02/24/2019 12 12 Encounter Details Date Type Department Care Team (Late st Contact Info) Description 02/23/2018 Orders Only [address] [phone] Ilya Gusman MD [address] [place] [phone] Left knee injury, initial encounter (Primary Dx) Social History Tobacco [...] Description 10/06/2025 10:45 AM EST Office Visit [facility] - Internal Medicine [address] [place] [phone] Ilya Gusman MD [address] [place] [phone] Christophe Dailey MD [address] [place] [phone] 01/18/2026 1:00 PM EST Office Visit [facility] [address] [address] Porsha Marsh, POLICY ADVISER [address] [place] [address] 02/22/2026 11:00 AM EDT Office Visit [facility] [address] [place] [phone] Alonso Bae MD [facility] [address] [place] [address] 07/17/2026 2:00 PM EDT Office Visit [facility] - Internal Medicine [address] [place] [phone] Ilya Gusman MD [address] [place] [phone] 07/19/2026 11:40 AM EDT Office Visit [facility] [address] [address] Yesi Perez MD 70 [place] [address] Scheduled Referrals Name Type Priority Associated Diagnoses Orde r Schedule Referral Orthopedic-Outgo [facility] Outpatient Referral Routine Left knee injury, initial encounter Ordered: 02/23/2018 documented as of this encounter Visit Diagnoses Diagnosis Left knee injury, initial encounter- Primary documented in this encounter [...] as of this encounter Care Teams Director Loss Prevention Relationship Specialty Start Date End Date Ilya Gusman MD [address] [place] [phone] PCP - General 05/14/17 [facility] 09/01/25 documented as of this encounter
--- OUTSIDE RECORDS SUMMARY | 2025-09-23 20:56 | XMS_ITS | Encounter Summary ---
Author Organization [facility] ystem Address [address] [place] [address] Phone Care Team Providers Care Metal Building Assembler Name Role Phone Ilya Gusman MD Primary Care Provider [phone] Encounter Details Date Type Department Care Team (Late Contact Info) Description 06/08/2024 Scanned Document [facility] - Health Information Department [address] [place] [address] Scan, No Provider Available [address] [place] [address] [place] [address] <No scans attached> Social History Tobacco Use [...] Upcoming Encounters Date Type Department Care Team ([facility] Contact Info) Description 10/06/2025 10:45 AM EST Office Visit [facility] - Internal Medicine [address] [place] [phone] Ilya Gusman MD [address] [place] [phone] Christophe Dailey MD [address] [place] [address] [phone] 01/18/2026 1:00 PM EST Office Visit [facility] [address] [place] [address] Porsha Marsh, MOVERS [address] [place] [address] 02/22/2026 11:00 AM EDT Office Visit [facility] [address] [place] [address] [address] [place] [phone] Alonso Bae MD [address] [place] [address] [address] [place] [address] 07/17/2026 2:00 PM EDT Office Visit [facility] - Internal Medicine [address] [place] [phone] Ilya Gusman MD [address] [place] [phone] 07/19/2026 11:40 AM EDT Office Visit [facility] [address] [place] [address] Yesi Perez MD [address] [place] [address] 8[address] documented as of this encounter Visit Diagnoses Not on filedocumented in this encounter Additional Health Concerns Infection Onset Date Last Indicated Resolved Time C difficile Rule-Out 11/01/2024 11/02/2024 024 9:43 AM EST Assessment Noted Time PHQ-9 Depression Total Score: 6 04/28/20 24 1:53 PM EDT documented as of this encounter Care Teams Metal Building Assembler Relationship Specialty Start Date End Date Ilya Gusman MD [address] [place] [address] [phone] PCP - General 05/14/17 [facility] 09/01/25 documented as of this encounter
--- OUTSIDE RECORDS SUMMARY | 2025-09-23 20:56 | XMS_ITS | Encounter Summary ---
Author Organization [facility] ystem Address [address] [place] [address] Phone Care Team Providers Care Front End Assistant Name Role Phone Ilya Gusman MD Primary Care Provider [phone] Encounter Details Date Type Department Care Team ([facility] Contact Info) Description 06/07/2024 Orders Only [facility] - Health Information Department [address] [place] [address] Scan, No Provider Available [address] [place] [address] Dr. Eleazar [place] [phone] Social History Tobacco Use Types Packs/Day Years [...] Office Visit [facility] - Internal Medicine [address] [place] [phone] Ilya Gusman MD [address] [place] [phone] Christophe Dailey MD [address] [place] [phone] 01/18/2026 1:00 PM EST Office Visit [facility] [address] [place] [address] Porsha Marsh, ACCOUNT EXECUTIVE HEALTHCARE [address] [place] [address] [phone] 02/22/2026 11:00 AM EDT Office Visit [facility] [address] [place] [address] [address] [place] [phone] Alonso Bae MD [address] [place] [address] [address] [place] [address] 07/17/2026 2:00 PM EDT Office Visit [facility] - Internal Medicine [address] [place] [phone] Ilya Gusman MD [address] [place] [phone] 07/19/2026 11:40 AM EDT Office Visit [facility] [address] [place] [address] Yesi Perez MD [address] [place] [address] documented as of this encounter Procedures Procedure Name Priority Date/Time Associated Diagnosis Comments MR [facility] Routine 06/04/2024 12:21 PM EDT XR CHEST 2 VW Routine 06/04/2024 12:17 PM EDT COVID-19 (EXTERNAL) Routine 06/04/2024 documented in this encounter Results * MR [facility] labs (06/04/2024 12:21 PM EDT) us No Provider Available Scan LAB BLOOD ORDERABLES Final Result * X-ray chest 2 views (06/04/2024 12:17 PM EDT) Anatomical Region Laterality Modality Body Radiographic Carmelina ging us No Provider Available Scan IMG XR PROCEDURES Fin al Result * COVID-19 (External) (06/04/2024) External COVID-19 Negative Not Detected, Negative, Non-reacti ve [facility] Nasopharyngeal (Nasopharynx) Historical Provider LAB MICROBIOLOGY - GENERA L ORDERABLES Final Result Performing Organization Address City/State/[facility] Co de Phone Number [facility] [address] [place] [address], [place] [phone] documented in this encounter Visit Diagnoses Not on filedocumented in this encounter Additional Health Concerns Infection Onset Date Last Indicated Resolved Time C difficile Rule-Out 11/01/2024 11/02/2024 024 9:43 AM EST Assessment Noted Time PHQ-9 Depression Total Score: 6 04/28/20 24 1:53 PM EDT documented as of this encounter Care Teams Front End Assistant Relationship Specialty Start Date End Date Ilya Gusman MD [address] [place] [address] [phone] PCP - General 05/14/17 [facility] 09/01/25 documented as of this encounter
--- OUTSIDE RECORDS SUMMARY | 2025-09-23 20:56 | XMS_ITS | Encounter Summary ---
Author Organization [facility] ystem Address [address] [place] [address] Phone Care Team Providers Care Car Groomer Name Role Phone Ilya Gusman MD Primary Care Provider [phone] Encounter Details Date Type Department Care Team (Late Contact Info) Description 10/14/2018 Scanned Document [facility] - Health Information Department [address] [place] [address] Scan, No Provider Available [address] [place] [address] [facility] [place] [address] <No scans attached> Social History Tobacco Use [...] [facility] - Internal Medicine [address] [place] [phone] Ilya Gusman MD [address] [place] [phone] Christophe Dailey MD [address] [place] [phone] 01/18/2026 1:00 PM EST Office Visit [facility] [address] [place] [address] Porsha Marsh, CARTOGRAPHY/MAPPING TECHNICIAN [address] [place] [address] 02/22/2026 11:00 AM EDT Office Visit [facility] [address] [place] [address] [address] [place] [phone] Alonso Bae MD [address] [place] [address] [address] [place] [address] 07/17/2026 2:00 PM EDT Office Visit [facility] - Internal Medicine [address] [place] [phone] Ilya Gusman MD [address] [place] [phone] 07/19/2026 11:40 AM EDT Office Visit [facility] [address] [place] [address] 157[address] Yesi Perez MD [address] [place] [address] documented as of this encounter Visit Diagnoses [...] documented as of this encounter Care Teams Car Groomer Relationship Specialty Start Date End Date Ilya Gusman MD [address] [place] [phone] PCP - General 05/14/17 [facility] 09/01/25 documented as of this encounter
--- OUTSIDE RECORDS SUMMARY | 2025-09-23 20:56 | XMS_ITS | Encounter Summary ---
Author Organization [facility] ystem Address [address] [place] [address] Phone Care Team Providers Care Ticket Worker Name Role Phone Ilya Gusman MD Primary Care Provider [phone] Encounter Details Date Type Department Care Team (Late Contact Info) Description 07/16/2024 Scanned Document [facility] - Health Information Department [address] [place] [address] Scan, No Provider Available [address] [place] [address] [place] [address] <No scans attached> Social History Tobacco Use [...] Upcoming Encounters Date Type Department Care Team ([facility] Contact Info) Description 10/06/2025 10:45 AM EST Office Visit [facility] - Internal Medicine [address] [place] [phone] Ilya Gusman MD [address] [place] [phone] Christophe Dailey MD [address] [place] [address] [phone] 01/18/2026 1:00 PM EST Office Visit [facility] [address] [place] [address] Porsha Marsh, RIVER TRANSPORTATION WORKER [address] [place] [address] 02/22/2026 11:00 AM EDT Office Visit [facility] [address] [place] [address] [address] [place] [phone] Alonso Bae MD [address] [place] [address] [address] [place] [address] 07/17/2026 2:00 PM EDT Office Visit [facility] - Internal Medicine [address] [place] [phone] Ilya Gusman MD [address] [place] [phone] 07/19/2026 11:40 AM EDT Office Visit [facility] [address] [place] [address] Yesi Perez MD [address] [place] [address] documented as of this encounter Visit Diagnoses Not on filedocumented in this encounter Additional Health Concerns Infection Onset Date Last Indicated Resolved Time C difficile Rule-Out 11/01/2024 11/02/2024 024 9:43 AM EST Assessment Noted Time PHQ-9 Depression Total Score: 6 04/28/20 24 1:53 PM EDT documented as of this encounter Care Teams Ticket Worker Relationship Specialty Start Date End Date Ilya Gusman MD [address] [place] [address] [phone] PCP - General 05/14/17 [facility] 09/01/25 documented as of this encounter
--- OUTSIDE RECORDS SUMMARY | 2025-09-23 20:56 | XMS_ITS | Encounter Summary ---
Author Organization [facility] ystem Address [address] [place] [address] Phone Care Team Providers Care Industrial Engineering Professor Name Role Phone Ilya Gusman MD Primary Care Provider Encounter Details Date Type Department Care Team ([facility] Contact Info) Description 06/08/2024 Orders Only [facility] - Health Information Department [address] [place] [address] Scan, No Provider Available [address] [place] [address] Dr. Eleazar [place] [phone] Social History Tobacco Use Types Packs/Day Years [...] Care Team ([facility] Contact Info) Description 10/06/2025 10:45 AM EST Office Visit [facility] - Internal Medicine [address] [place] [phone] Ilya Gusman MD [address] [place] [phone] Christophe Dailey MD [address] [place] [phone] 01/18/2026 1:00 PM EST Office Visit [facility] [address] [place] [address] Porsha Marsh, HEAD HOUSEKEEPER [address] [place] [address] 02/22/2026 11:00 AM EDT Office Visit [facility] [address] [place] [address] [address] [place] [phone] Alonso Bae MD [address] [place] [address] [address] [place] [address] 07/17/2026 2:00 PM EDT Office Visit [facility] - Internal Medicine [address] [place] [phone] Ilya Gusman MD [address] [place] [phone] 07/19/2026 11:40 AM EDT Office Visit [facility] [address] [place] [address] Yesi Perez MD [address] [place] [address] documented as of this encounter Procedures Procedure Name Priority Date/Time Associated Diagnosis Comments XR CHEST 1 VW Routine 06/07/2024 10:13 AM EDT documented in this encounter Results * X-ray chest 1 view (06/07/2024 10:13 AM EDT) Anatomical Region Laterality Modality Body [...] as of this encounter Care Teams Industrial Engineering Professor Relationship Specialty Start Date End Date Ilya Gusman MD [address] [place] [phone] PCP - General 05/14/17 [facility] 09/01/25 documented as of this encounter
--- OUTSIDE RECORDS SUMMARY | 2025-09-23 20:56 | XMS_ITS | Encounter Summary ---
[facility] Address [address] [place] [address] Phone Care Team Providers Care Cashier Receptionist Name Role Phone Ilya Gusman MD Primary Care Provider [phone] Encounter Details Date Type Department Care Team ([facility] Contact Info) Description 08/04/[address] [facility] - Health Information Department [address] [place] [phone] Scan, No Provider Available [address] [place] [address] Dr. Eleazar [place] [phone] Social History Tobacco Use Types Packs/Day Years [...] Upcoming Encounters Date Type Department Care Team ([facility] Contact Info) Description 10/06/2025 10:45 AM EST Office Visit [facility] - Internal Medicine [address] [place] [phone] Ilya Gusman MD [address] [place] [phone] Christophe Dailey MD [address] [place] [phone] 01/18/2026 1:00 PM EST Office Visit [facility] [address] [place] [address] Porsha Marsh, ANTHROPOLOGY PROFESSOR [address] [place] [address] 02/22/2026 11:00 AM EDT Office Visit [facility] [address] [place] [address] [address] [place] [phone] Alonso Bae MD [address] [place] [address] [address] [place] [address] 07/17/2026 2:00 PM EDT Office Visit [facility] - Internal Medicine [address] [place] [phone] Ilya Gusman MD [address] [place] [phone] 07/19/2026 11:40 AM EDT Office Visit [facility] [address] [place] [address] Yesi Perez MD [address] [place] [address] documented as of this encounter Procedures Procedure Name Priority Date/Time Associated Diagnosis Comments ECG 12-LEAD Today 04/09/2024 12:37 PM EDT documented in this encounter Results * ECG (04/09/2024 12:37 PM EDT) No Provider Available Scan ECG ORDERABLES Final Result documented in this encounter Visit Diagnoses Not on filedocumented in this encounter Additional Health Concerns Infection Onset Date Last Indicated Resolved Time C difficile Rule-Out 11/01/2024 11/02/2024 024 9:43 AM EST Assessment Noted Time PHQ-9 Depression Total Score: 6 04/28/20 24 1:53 PM EDT documented as of this encounter Care Teams Cashier Receptionist Relationship Specialty Start Date End Date Ilya Gusman MD [address] [place] [phone] PCP - General 05/14/17 [facility] 09/01/25 documented as of this encounter
--- OUTSIDE RECORDS SUMMARY | 2025-09-23 20:56 | XMS_ITS | Encounter Summary ---
Author Organization [facility]stem Address [address] [place] [address] Phone Care Team Providers Care Compressor Operator Portable Name Role Phone Ilya Gusman MD Primary Care Provider [phone] Encounter Details Date Type Department Care Team (Late Contact Info) Description 06/04/2024 Scanned Document [facility] - Health Information Department [address] [place] [phone] Scan, No Provider Available [address] [place] [address] [place] [address] <No scans attached> Social History Tobacco Use [...] Encounters Date Type Department Care Team ([facility] Contact Info) Description 10/06/2025 10:45 AM EST Office Visit [facility] - Internal Medicine [address] [place] [phone] Ilya Gusman MD [address] [place] [phone] Christophe Dailey MD [address] [place] [phone] 01/18/2026 1:00 PM EST Office Visit [facility] [address] [place] [phone] Porsha Marsh, CLINIC LPN [address] [place] [address] 02/22/2026 11:00 AM EDT Office Visit [facility] [address] [place] [address] [address] [place] [phone] Alonso Bae MD [address] [place] [address] [address] [place] [address] 07/17/2026 2:00 PM EDT Office Visit [facility] - Internal Medicine [address] [place] [phone] Ilya Gusman MD [address] [place] [phone] 07/19/2026 11:40 AM EDT Office Visit [facility] [address] [place] [address] Yesi Perez MD [address] [place] [address] documented as of this encounter Visit Diagnoses Not on filedocumented in this encounter Additional Health Concerns Infection Onset Date Last Indicated Resolved Time C difficile Rule-Out 11/01/2024 11/02/2024 024 9:43 AM EST Assessment Noted Time PHQ-9 Depression Total Score: 6 04/28/20 24 1:53 PM EDT documented as of this encounter Care Teams Compressor Operator Portable Relationship Specialty Start Date End Date Ilya Gusman MD [address] [place] [phone] PCP - General 05/14/17 [facility] 09/01/25 documented as of this encounter
--- OUTSIDE RECORDS SUMMARY | 2025-09-23 20:56 | XMS_ITS | Encounter Summary ---
Author Organization [facility]stem Address [address] [place] [address] Phone Care Team Providers Care Flower Pot Press Operator Name Role Phone Ilya Gusman MD Primary Care Provider [phone] Encounter Details Date Type Department Care Team (Late Contact Info) Description 10/29/2018 Scanned Document [facility] - Health Information Department [address] [place] [phone] Scan, No Provider Available [address] [place] [address] [facility] [place] [address] <No scans attached> Social History Tobacco Use [...] Upcoming Encounters Date Type Department Care Team ([facility] [address] Contact Info) Description 10/06/2025 10:45 AM EST Office Visit [facility] - Internal Medicine [address] [place] [phone] Ilya Gusman MD [address] [place] [phone] Christophe Dailey MD [address] [place] [phone] 01/18/2026 1:00 PM EST Office Visit [facility] [address] [place] [address] Porsha Marsh, WATERPROOFING MACHINE OPERATOR [address] [place] [address] 02/22/2026 11:00 AM EDT Office Visit [facility] [address] [place] [address] [address] [place] [phone] Alonso Bae MD [address] [place] [address] [address] [place] [address] 07/17/2026 2:00 PM EDT Office Visit [facility] - Internal Medicine [address] [place] [phone] Ilya Gusman MD [address] [place] [phone] 07/19/2026 11:40 AM EDT Office Visit [facility] [address] [place] [address] Yesi Perez MD [address] [place] [address] documented as of this encounter Visit Diagnoses [...] documented as of this encounter Care Teams Flower Pot Press Operator Relationship Specialty Start Date End Date Ilya Gusman MD [address] [place] [phone] PCP - General 05/14/17 [facility] 09/01/25 documented as of this encounter
--- OUTSIDE RECORDS SUMMARY | 2025-09-23 20:56 | XMS_ITS | Encounter Summary ---
Author Organization [facility] Address [address] [place] [address] Phone Care Team Providers Care Switch Operators Supervisor Name Role Phone Ilya Gusman MD Primary Care Provider [phone] Encounter Details Date Type Department Care Team ([facility] Contact Info) Description 2024 Orders Only [facility] - Health Information Department [address] [place] [phone] Scan, No Provider Available [address] [place] [address] Dr. Eleazar [place] [phone] Social History Tobacco Use Types Packs/Day Years [...] Upcoming Encounters Date Type Department Care Team ([facility] Contact Info) Description 10/06/2025 10:45 AM EST Office Visit [facility] - Internal Medicine [address] [place] [phone] Ilya Gusman MD [address] [place] [phone] Christophe Dailey MD [address] [place] [phone] 01/18/2026 1:00 PM EST Office Visit [facility] [address] [place] [address] Porsha Marsh, INDUSTRIAL ENGINEERING TECHNICIAN [address] [place] [address] 02/22/2026 11:00 AM EDT Office Visit [facility] [address] [place] [address] [address] [place] [phone] Alonso Bae MD [address] [place] [address] [address] [place] [address] 07/17/2026 2:00 PM EDT Office Visit [facility] - Internal Medicine [address] [place] [phone] Ilya Gusman MD [address] [place] [phone] 07/19/2026 11:40 AM EDT Office Visit [facility] [address] [place] [address] Yesi Perez MD [address] [place] [address] documented as of this encounter Procedures Procedure Name Priority Date/Time Associated Diagnosis Comments ECG 12-LEAD Today 05/13/2024 9:25 AM EDT documented in this encounter Results * ECG (05/13/2024 9:25 AM EDT) No Provider Available Scan ECG ORDERABLES Final Result documented in this encounter Visit Diagnoses Not on filedocumented in this encounter Additional Health Concerns Infection Onset Date Last Indicated Resolved Time C difficile Rule-Out 11/01/2024 11/02/2024 024 9:43 AM EST Assessment Noted Time PHQ-9 Depression Total Score: 6 04/28/20 24 1:53 PM EDT documented as of this encounter Care Teams Switch Operators Supervisor Relationship Specialty Start Date End Date Ilya Gusman MD [address] [place] [phone] PCP - General 05/14/17 [facility] 09/01/25 documented as of this encounter
--- OUTSIDE RECORDS SUMMARY | 2025-09-23 20:56 | XMS_ITS | Encounter Summary ---
Author Organization [facility] ystem Address [address] [place] [address] Phone Care Team Providers Care Shell Sieve Operator Name Role Phone Ilya Gusman MD Primary Care Provider [phone] Encounter Details Date Type Department Care Team (Late st Contact Info) Description 07/17/2021 Orders Only [facility] - Health Information Department [address] [place] [address] Scan, No Provider Available [address] [facility] [place] [address] Social History Tobacco Use Types Packs/Day Years [...] have Coronavirus / COVID-19? Unable to assess 07/18/2021 12:09 PM EDT documented as of this encounter Plan of Treatment Upcoming Encounters Date Type Department Care Team (Late st Contact Info) Description 10/06/2025 10:45 AM EST Office Visit [facility] - Internal Medicine [address] [place] [phone] Ilya Gusman MD [address] [place] [phone] Christophe Dailey MD [address] [place] [phone] 01/18/2026 1:00 PM EST Office Visit [facility] [address] [place] [address] Porsha Marsh, MARILIA [address] [place] [address] 02/22/2026 11:00 AM EDT Office Visit [facility] [address] [place] [address] [address] [place] [phone] Alonso Bae MD [address] [place] [address] [address] [place] [address] 07/17/2026 2:00 PM EDT Office Visit [facility] - Internal Medicine [address] [place] [phone] Ilya Gusman MD [address] [place] [phone] 07/19/2026 11:40 AM EDT Office Visit [facility] [address] [place] [address] Yesi Perez MD [address] [place] [address] documented as of this encounter Procedures Procedure Name Priority Date/Time Associated Diagnosis Comments XR CHEST 2 VW Routine 06/21/2021 CT CERVICAL SPINE WO CONTRAST Routine 04/18/2021 CT HEAD WO CONTRAST Routine 04/18/2021 MR INO COX Routine 04/07/2021 XR CHEST 2 VW Routine 04/07/2021 ECG 12-LEAD Today 04/07/2021 MR INO COX Routine 04/02/2021 US DOPPLER VENOUS LEGS BILATERAL Routine 04/02/2021 XR CHEST 2 VW Routine 04/02/2021 documented in this encounter Results * X-ray chest 2 views (06/21/2021) Anatomical Region Laterality Modality Body Radiographic Carmelina ging us No Provider Available Scan IMG XR PROCEDURES Fin al Result * CT cervical spine without contrast (04/18/2021) Anatomical Region Laterality Modality Spine, C-spine Computed Tomogra phy us No Provider Available Scan IMG CT PROCEDURES Fin al Result * CT head without contrast (04/18/2021) Anatomical Region Laterality Modality Head and Neck Computed Tomogra phy us No Provider Available Scan IMG CT PROCEDURES Fin al Result * MR Ino cox (04/07/2021) us No Provider Available Scan LAB BLOOD ORDERABLES Final Result * X-ray chest 2 views (04/07/2021) Anatomical Region Laterality Modality Body Radiographic Carmelina ging us No Provider Available Scan IMG XR PROCEDURES Fin al Result * ECG (04/07/2021) us No Provider Available Scan ECG ORDERABLES Final Result * MR Ino cox (04/02/2021) us No Provider Available Scan LAB BLOOD ORDERABLES Final Result * US Venous Duplex LEG Bilateral (R/O DVT) (04/02/2021) Anatomical Region Laterality Modality Ultrasound us No Provider Available Scan CV VASCULAR PROCEDURE S Final Result * X-ray chest 2 views (04/02/2021) Anatomical Region Laterality Modality Body Radiographic Carmelina [...] documented as of this encounter Care Teams Shell Sieve Operator Relationship Specialty Start Date End Date Ilya Gusman MD [address] [place] [phone] PCP - General 05/14/17 [facility] 09/01/25 documented as of this encounter
--- OUTSIDE RECORDS SUMMARY | 2025-09-23 20:56 | XMS_ITS | Encounter Summary ---
Author Organization [facility] ystem Address [address] [place] [address] Phone Care Team Providers Care Motion Picture Operator Name Role Phone Ilya Gusman MD Primary Care Provider [phone] Encounter Details Date Type Department Care Team (Late Contact Info) Description 07/05/2024 Scanned Document [facility] - Health Information Department [address] [place] [phone] Scan, No Provider Available [address] [place] [address] [place] [address] <No scans attached> Social History Tobacco Use [...] Upcoming Encounters Date Type Department Care Team ([facility] Contact Info) Description 10/06/2025 10:45 AM EST Office Visit [facility] - Internal Medicine [address] [place] [phone] Ilya Gusman MD [address] [place] [phone] Christophe Dailey MD [address] [place] [phone] 01/18/2026 1:00 PM EST Office Visit [facility] [address] [place] [address] Porsha Marsh, SENIOR SUPPORT ENGINEER [address] [place] [address] 02/22/2026 11:00 AM EDT Office Visit [facility] [address] [place] [address] [address] [place] [phone] Alonso Bae MD [address] [place] [address] [address] [place] [address] 07/17/2026 2:00 PM EDT Office Visit [facility] - Internal Medicine [address] [place] [phone] Ilya Gusman MD [address] [place] [phone] 07/19/2026 11:40 AM EDT Office Visit [facility] [address] [place] [address] Yesi Perez MD [address] [place] [address] documented as of this encounter Visit Diagnoses Not on filedocumented in this encounter Additional Health Concerns Infection Onset Date Last Indicated Resolved Time C difficile Rule-Out 11/01/2024 11/02/2024 024 9:43 AM EST Assessment Noted Time PHQ-9 Depression Total Score: 6 04/28/20 24 1:53 PM EDT documented as of this encounter Care Teams Motion Picture Operator Relationship Specialty Start Date End Date Ilya Gusman MD [address] [place] [address] [phone] PCP - General 05/14/17 [facility] 09/01/25 documented as of this encounter
--- OUTSIDE RECORDS SUMMARY | 2025-09-23 20:56 | XMS_ITS | Encounter Summary ---
Author Organization [facility]stem Address [address] [place] [address] Phone Care Team Providers Care Traveling Repair Accountant Name Role Phone Ilya Gusman MD Primary Care Provider [phone] Encounter Details Date Type Department Care Team (Late Contact Info) Description 07/19/2024 Scanned Document [facility] - Health Information Department [address] [place] [address] Scan, No Provider Available [address] [place] [address] [place] [address] <No scans attached> Social History Tobacco Use [...] Care Team ([facility] Contact Info) Description 10/06/2025 10:45 AM EST Office Visit [facility] - Internal Medicine [address] [place] [phone] Ilya Gusman MD [address] [place] [phone] Christophe Dailey MD [address] [place] [address] [phone] 01/18/2026 1:00 PM EST Office Visit [facility] [address] [place] [address] Porsha Marsh, FIELD MARKETING TEAM LEADER [address] [place] [address] 02/22/2026 11:00 AM EDT Office Visit [facility] [address] [place] [address] [address] [place] [phone] Alonso Bae MD [address] [place] [address] [address] [place] [address] 07/17/2026 2:00 PM EDT Office Visit [facility] - Internal Medicine [address] [place] [phone] Ilya Gusman MD [address] [place] [phone] 07/19/2026 11:40 AM EDT Office Visit [facility] [address] [place] [address] Yesi Perez MD [address] [place] [address] documented as of this encounter Visit Diagnoses Not on filedocumented in this encounter Additional Health Concerns Infection Onset Date Last Indicated Resolved Time C difficile Rule-Out 11/01/2024 11/02/2024 024 9:43 AM EST Assessment Noted Time PHQ-9 Depression Total Score: 6 04/28/20 24 1:53 PM EDT documented as of this encounter Care Teams Traveling Repair Accountant Relationship Specialty Start Date End Date Ilya Gusman MD [address] [place] [address] [phone] PCP - General 05/14/17 [facility] 09/01/25 documented as of this encounter
--- OUTSIDE RECORDS SUMMARY | 2025-09-23 20:56 | XMS_ITS | Encounter Summary ---
Author Organization [facility] Address [address] [place] [address] Phone Care Team Providers Care Roundhouse Firer/Fireman Name Role Phone Ilya Gusman MD Primary Care Provider [phone] Reason for Visit * Reason Comments Med Refill Encounter Details Date Type Department Care Team (Late Contact Info) Description 06/05/2024 Refill [facility] - Internal Medicine [address] [place] [phone] Ilya Gusman MD [address] [place] [phone] Med Refill Social History Tobacco Use [...] 10:45 AM EST Office Visit [facility] - Internal Medicine [address] [place] [phone] Ilya Gusman MD [address] [place] [phone] Christophe Dailey MD [address] [place] [phone] 01/18/2026 1:00 PM EST Office Visit [facility] [address] [place] [address] Porsha Marsh, MARILIA [address] [place] [address] 02/22/2026 11:00 AM EDT Office Visit [facility] [address] [place] [address] [address] [place] [phone] Alonso Bae MD [address] [place] [address] [address] [place] [address] 07/17/2026 2:00 PM EDT Office Visit [facility] - Internal Medicine [address] [place] [phone] Ilya Gusman MD [address] [place] [phone] 07/19/2026 11:40 AM EDT Office Visit [facility] [address] [place] [address] Yesi Perez MD [address] [place] [address] documented as of this encounter Visit Diagnoses Not on filedocumented in this encounter Additional Health Concerns Infection Onset Date Last Indicated Resolved Time C difficile Rule-Out 11/01/2024 11/02/202410/2 024 9:43 AM EST Assessment Noted Time PHQ-9 Depression Total Score: 6 04/28/20 24 1:53 PM EDT documented as of this encounter Care Teams Roundhouse Firer/Fireman Relationship Specialty Start Date End Date Ilya Gusman MD [address] [place] [phone] PCP - General 05/14/17 [facility] 09/01/25 documented as of this encounter
--- OUTSIDE RECORDS SUMMARY | 2025-09-23 20:56 | XMS_ITS | Encounter Summary ---
Author Organization [facility] ystem Address [address] [place] [address] Phone Care Team Providers Care 8Th Grade Teacher Name Role Phone Ilya Gusman MD Primary Care Provider [phone] Encounter Details Date Type Department Care Team (Late st Contact Info) Description 06/22/2021 Scanned Document [facility] - Health Information Department [address] [place], [place] [phone] Scan, No Provider Available [address] [facility] [place] [address] <No scans attached> Social History Tobacco Use [...] Description 10/06/2025 10:45 AM EST Office Visit [facility] - Internal Medicine [address] [place] [phone] Ilya Gusman MD [address] [place] [phone] Christophe Dailey MD [address] [place] [phone] 01/18/2026 1:00 PM EST Office Visit [facility] [address] [place] [address] Porsha Marsh, EMERGENCY SPECIALIST [address] [place] [address] 02/22/2026 11:00 AM EDT Office Visit [facility] [address] [place] [address] [address] [place] [phone] Alonso Bae MD [address] [place] [address] [address] [place] [address] 07/17/2026 2:00 PM EDT Office Visit [facility] - Internal Medicine [address] [place] [phone] Ilya Gusman MD [address] [place] [phone] 07/19/2026 11:40 AM EDT Office Visit [facility] [address] [place] [address] Yesi Perez MD [address] [place] [address] documented as of this encounter Visit Diagnoses [...] documented as of this encounter Care Teams 8Th Grade Teacher Relationship Specialty Start Date End Date Ilya Gusman MD [address] [place] [address] [phone] PCP - General 05/14/17 [facility] 09/01/25 documented as of this encounter
--- OUTSIDE RECORDS SUMMARY | 2025-09-23 20:56 | XMS_ITS | Encounter Summary ---
Author Organization [facility] ystem Address [address] [place] [address] Phone Care Team Providers Care Gear Repairer Name Role Phone Ilya Gusman MD Primary Care Provider [phone] Encounter Details Date Type Department Care Team ([facility] Contact Info) Description 11/03/2018 Orders Only [facility] - Health Information Department [address] [place] [phone] Scan, No Provider Available [address] [place] [address] Dr. [place] [id number] Social History Tobacco Use Types Packs/Day Years [...] Upcoming Encounters Date Type Department Care Team ([facility] Contact Info) Description 10/06/2025 10:45 AM EST Office Visit [facility] - Internal Medicine [address] [place] [phone] Ilya Gusman MD [address] [place] [phone] Christophe Dailey MD [address] [place] [phone] 01/18/2026 1:00 PM EST Office Visit [facility] [address] [place] [address] Porsha Marsh, TERRITORY ACCOUNT REPRESENTATIVE [address] [place] [address] 02/22/2026 11:00 AM EDT Office Visit [facility] [address] [place] [address] [address] [place] [phone] Alonso Bae MD [address] [place] [address] [address] [place] [address] 07/17/2026 2:00 PM EDT Office Visit [facility] - Internal Medicine [address] [place] [phone] Ilya Gusman MD [address] [place] [phone] 07/19/2026 11:40 AM EDT Office Visit [facility] [address] [place] [address] Yesi Perez MD [address] [place] [address] documented as of this encounter Procedures Procedure Name Priority Date/Time Associated Diagnosis Comments TRANSTHORACIC ECHO (TTE) COMPLETE Routine 10/14/2018 documented in this encounter Results * Transthoracic Echo (TTE) (10/14/2018) us No Provider Available Scan CV ECHO [...] documented as of this encounter Care Teams Gear Repairer Relationship Specialty Start Date End Date Ilya Gusman MD [address] [place] [phone] PCP - General 05/14/17 [facility] 09/01/25 documented as of this encounter
--- OUTSIDE RECORDS SUMMARY | 2025-09-23 20:56 | XMS_ITS | Encounter Summary ---
Author Organization [facility] ystem Address [address] [place] [address] Phone Care Team Providers Care Buffing Wheel Presser Name Role Phone Ilya Gusman MD Primary Care Provider [phone] Encounter Details Date Type Department Care Team ([facility] Contact Info) Description 08/12/2024 Orders Only [facility] - Health Information Department [address] [place] [address] Scan, No Provider Available [address] [place] [address] Dr. Eleazar [place] [phone] Social History Tobacco Use Types Packs/Day Years [...] Upcoming Encounters Date Type Department Care Team ([facility] Contact Info) Description 10/06/2025 10:45 AM EST Office Visit [facility] - Internal Medicine [address] [place] [phone] Ilya Gusman MD [address] [place] [phone] Christophe Dailey MD [address] [place] [phone] 01/18/2026 1:00 PM EST Office Visit [facility] [address] [place] [address] Porsha Marsh, LABORATORY HELPER [address] [place] [address] 02/22/2026 11:00 AM EDT Office Visit [facility] [address] [place] [address] [address] [place] [phone] Alonso Bae MD [address] [place] [address] [address] [place] [address] 07/17/2026 2:00 PM EDT Office Visit [facility] - Internal Medicine [address] [place] [phone] Ilya Gusman MD [address] [place] [phone] 07/19/2026 11:40 AM EDT Office Visit [facility] [address] [place] [address] Yesi Perez MD [address] [place] [address] documented as of this encounter Procedures Procedure Name Priority Date/Time Associated Diagnosis Comments ECG 12-LEAD Today 08/09/2024 11:03 AM EDT documented in this encounter Results * ECG (08/09/2024 11:03 AM EDT) No Provider Available Scan ECG ORDERABLES Final Result documented in this encounter Visit Diagnoses Not on filedocumented in this encounter Additional Health Concerns Infection Onset Date Last Indicated Resolved Time C difficile Rule-Out 11/01/2024 11/02/2024 024 9:43 AM EST Assessment Noted Time PHQ-9 Depression Total Score: 6 04/28/20 24 1:53 PM EDT documented as of this encounter Care Teams Buffing Wheel Presser Relationship Specialty Start Date End Date Ilya Gusman MD [address] [place] [address] [phone] PCP - General 05/14/17 [facility] 09/01/25 documented as of this encounter
--- OUTSIDE RECORDS SUMMARY | 2025-09-23 20:56 | XMS_ITS | Encounter Summary ---
Author Organization [facility] ystem Address [address] [place] [address] Phone Care Team Providers Care Offline Cutter Name Role Phone Ilya Gusman MD Primary Care Provider [phone] Encounter Details Date Type Department Care Team (Late Contact Info) Description 08/11/2024 Scanned Document [facility] - Health Information Department [address] [place] [address] Scan, No Provider Available [address] [place] [address] [place] [address] <No scans attached> Social History Tobacco Use [...] Visit [facility] - Internal Medicine [address] [place] [phone] Ilya Gusman MD [address] [place] [phone] Christophe Dailey MD [address] [place] [address] [phone] 01/18/2026 1:00 PM EST Office Visit [facility] [address] [place] [address] Porsha Marsh, ROLLING MACHINE OPERATOR AUTOMATIC [address] [place] [address] 02/22/2026 11:00 AM EDT Office Visit [facility] [address] [place] [address] [address] [place] [phone] Alonso Bae MD [address] [place] [address] [address] [place] [address] 07/17/2026 2:00 PM EDT Office Visit [facility] - Internal Medicine [address] [place] [phone] Ilya Gusman MD [address] [place] [phone] 07/19/2026 11:40 AM EDT Office Visit [facility] [address] [place] [address] Yesi Perez MD [address] [place] [address] documented as of this encounter Visit Diagnoses Not on filedocumented in this encounter Additional Health Concerns Infection Onset Date Last Indicated Resolved Time C difficile Rule-Out 11/01/2024 11/02/2024 024 9:43 AM EST Assessment Noted Time PHQ-9 Depression Total Score: 6 04/28/20 24 1:53 PM EDT documented as of this encounter Care Teams Offline Cutter Relationship Specialty Start Date End Date Ilya Gusman MD [address] [place] [address] [phone] PCP - General 05/14/17 [facility] 09/01/25 documented as of this encounter
--- OUTSIDE RECORDS SUMMARY | 2025-09-23 20:56 | XMS_ITS | Encounter Summary ---
Author Organization [facility] Address [address] [place] [address] Care Team Providers Care Improvement Analyst Name Role Phone Solis Encarnacion MD Unavailable [phone] Ilya Gusman MD Primary Care Provider [phone] Encounter Details Date Type Department Care Team (Late st Contact Info) Description 12/01/2022 [facility] One Orders Abou Moris Carrasco MD [address] [place] [address] Social History Tobacco Use Types Packs/Day Years [...] Date/Time Associated Diagnosis Comments CULTURE, STOOL Routine 12/01/2022 2:47 AM EST SHIGA TOXIN, HEMORRHAGIC E. COLI Routine 12/01/2022 2:47 AM EST documented in this encounter Results * Shiga Toxin, Hemorrhagic E. coli (12/01/2022 2:47 AM EST) Shiga-toxin I Negative Negative BG 12/03/2022 4:29 AM EST [facility] Comment:This EIA assay detec ts the most common Shiga toxin produced by E. coli 0157:H7 in addition to other serotypes. Shiga-toxin II Negative Negative BG 12/03/2022 4:29 AM EST [facility] Comment:This EIA assay detec ts the most common Shiga toxin produced by E. coli 0157:H7 in addition to other serotypes. Stool STOOL SPECIMEN / Unknown 12/01/2022 2:47 AM EST 12/01/2022 1:27 PM EST Moris Carrasco MD MICROBIOLOGY - GENERAL OR DERABLES Final Result Performing Organization Address City/[facility]/ZIP Co de Phone Number [facility] [address] [place] [address], [place] [phone] * Culture, Stool (12/01/2022 2:47 AM EST) Culture No Salmonella,Shig bella,Campylobac ter,Aeromonas, Plesiomonas Isolated. Normal Stool Camila Present. BG 12/04/2022 7:11 AM EST [facility] Stool STOOL SPECIMEN / Unknown 12/01/2022 2:47 AM EST 12/01/2022 1:27 PM EST Moris Carrasco MD MICROBIOLOGY - GENERAL OR DERABLES Final Result Performing Organization Address [facility] Co de Phone Number [facility] [address] [place] [address], [place] [phone] documented in this encounter Visit Diagnoses Not [...] documented as of this encounter Care Teams Improvement Analyst Relationship Specialty Start Date End Date Ilya Gusman MD [address] [place] [address] PCP - General 02/12/24 Solis Encarnacion MD 70 [facility] 3 [place] [address] Cardiac Electrophysiology 04/24/2402/22 documented as of this encounter
--- OUTSIDE RECORDS SUMMARY | 2025-09-23 20:56 | XMS_ITS | Encounter Summary ---
Author Organization [facility] Address [address] [place] [address] Phone Care Team Providers Care Hogshead Inspector Name Role Phone Ilya Gusman MD Primary Care Provider [phone] Reason for Visit * Reason Onset Date Comments Med Refill 08/02/2018 Encounter Details Date Type Department Care Team (Late st Contact Info) Description 08/02/2018 Refill [facility] - Orthopedics [address] [place] [address] [phone] Roseanne Cruz, GEOVANNI [address] [place] [address] Med Refill Social History Tobacco Use Types [...] [facility] - Internal Medicine [address] [place] [phone] Ilya Gusman MD [address] [place] [phone] Christophe Dailey MD [address] [place] [phone] 01/18/2026 1:00 PM EST Office Visit [facility] [address] [place] [address] Porsha Marsh, COMMUNITY ARTS OFFICER [address] [place] [address] 02/22/2026 11:00 AM EDT Office Visit [facility] [address] [place] [address] [address] [place] [phone] Alonso Bae MD [address] [place] [address] [address] [place] [address] 07/17/2026 2:00 PM EDT Office Visit [facility] - Internal Medicine [address] [place] [phone] Ilya Gusman MD [address] [place] [phone] 07/19/2026 11:40 AM EDT Office Visit [facility] [address] [place] [address] Yesi Perez MD [address] [place] [address] documented as of this encounter Visit Diagnoses [...] documented as of this encounter Care Teams Hogshead Inspector Relationship Specialty Start Date End Date Ilya Gusman MD [address] [place] [phone] PCP - General 05/14/17 [facility] 09/01/25 documented as of this encounter
--- OUTSIDE RECORDS SUMMARY | 2025-09-23 20:56 | XMS_ITS | Encounter Summary ---
Author Organization [facility] ystem Address [address] [place] [address] Phone Care Team Providers Care Spotter Name Role Phone Ilya Gusman MD Primary Care Provider [phone] Encounter Details Date Type Department Care Team (Late st Contact Info) Description 06/20/2021 Scanned Document [facility] - Health Information Department [address] [place], [place] [phone] Scan, No Provider Available [address] [facility] [place] [address] <No scans attached> Social History Tobacco Use [...] 10/06/2025 10:45 AM EST Office Visit [facility] - Internal Medicine [address] [place] [phone] Ilya Gusman MD [address] [place] [phone] Christophe Dailey MD [address] [place] [phone] 01/18/2026 1:00 PM EST Office Visit [facility] [address] [place] [address] Porsha Marsh, METAL WORKER [address] [place] [address] 02/22/2026 11:00 AM EDT Office Visit [facility] [address] [place] [address] [address] [place] [phone] Alonso Bae MD [address] [place] [address] [address] [place] [address] 07/17/2026 2:00 PM EDT Office Visit [facility] - Internal Medicine [address] [place] [phone] Ilya Gusman MD [address] [place] [phone] 07/19/2026 11:40 AM EDT Office Visit [facility] [address] [place] [address] Yesi Perez MD 70 [place] [address] documented as of this encounter Visit Diagnoses [...] documented as of this encounter Care Teams Spotter Relationship Specialty Start Date End Date Ilya Gusman MD [address] [place] [address] [phone] PCP - General 05/14/17 [facility] 09/01/25 documented as of this encounter
--- OUTSIDE RECORDS SUMMARY | 2025-09-23 20:56 | XMS_ITS | Encounter Summary ---
Author Organization [facility] ystem Address [address] [place] [address] Phone Care Team Providers Care Cereal Supervisor Name Role Phone Ilya Gusman MD Primary Care Provider [phone] Encounter Details Date Type Department Care Team (Late st Contact Info) Description 07/16/2021 Scanned Document [facility] - Health Information Department [address] [place], [place] [phone] Scan, No Provider Available [address] [facility] [place] [address] <No scans attached> Social History Tobacco Use [...] Visit [facility] - Internal Medicine [address] [place] [place] [phone] Ilya Gusman MD [address] [place] [phone] Christophe Dailey MD [address] [place] [phone] 01/18/2026 1:00 PM EST Office Visit [facility] [address] [place] [address] Porsha Marsh, SUPERVISOR SCREEN PRINTING [address] [place] [address] 02/22/2026 11:00 AM EDT Office Visit [facility] [address] [place] [address] [address] [place] [phone] Alonso Bae MD [address] [place] [address] [address] [place] [address] 07/17/2026 2:00 PM EDT Office Visit [facility] - Internal Medicine [address] [place] [phone] Ilya Gusman MD [address] [place] [phone] 07/19/2026 11:40 AM EDT Office Visit [facility] [address] [place] [address] Yesi Perez MD [address] [place] [address] documented as of this encounter Visit Diagnoses [...] documented as of this encounter Care Teams Cereal Supervisor Relationship Specialty Start Date End Date Ilya Gusman MD [address] [place] [phone] PCP - General 05/14/17 [facility] 09/01/25 documented as of this encounter
--- OUTSIDE RECORDS SUMMARY | 2025-09-23 20:56 | XMS_ITS | Encounter Summary ---
[facility] Address [address] [place] [address] Phone Care Team Providers Care Supervisor Mechanic Boilermaking Name Role Phone Ilya Gusman MD Primary Care Provider [phone] Reason for Visit * Reason Comments Med Refill Encounter Details Date Type Department Care Team (Late st Contact Info) Description 10/03/2018 Refill [facility] - Endocrinology [address] [place] [address] [phone] Luz Maria Victor, FARRAH [address] [place] [address] Med Refill Social History Tobacco Use Types [...] encounter Miscellaneous Notes * Telephone Encounter - Franny Luque [place] - 10/05/2018 9:52 AM EST Rx refill request for Atorvastatin Future Appointments Date Time Provider Department Center 01/13/2019 2:40 PM Lulu Mata, LISA [facility] 03/18/2019 8:00 AM [facility] Lab Results Component Value Date LDLCALC 70 11/18/2017 Med pending, thank you Aziza Luque MA-Endocrinology documented in this encounter Plan of Treatment Upcoming Encounters Date Type Department Care Team (Late st Contact Info) Description 10/06/2025 10:45 AM EST Office Visit [facility] - Internal Medicine [address] [place] [phone] Ilya Gusman MD [address] [place] [address] [phone] Christophe Dailey MD [address] [place] [address] [phone] 01/18/2026 1:00 PM EST Office Visit [facility] [address] [facility] 1 [place] [address] Porsha Marsh, COMPUTER ENGINEERING TECHNOLOGIST [address] [place] [address] 02/22/2026 11:00 AM EDT Office Visit [facility] [address] [place] [address] [address] [place] [phone] Alonso Bae MD [address] [place] [address] [address] [place] [address] 07/17/2026 2:00 PM EDT Office Visit [facility] - Internal Medicine [address] [place] [phone] Ilya Gusman MD [address] [place] [address] [phone] 07/19/2026 11:40 AM EDT Office Visit [facility] [address] [address] Yesi Perez MD 70 [place] [address] documented as of this encounter Visit Diagnoses [...] as of this encounter Care Teams Supervisor Mechanic Boilermaking Relationship Specialty Start Date End Date Ilya Gusman MD [address] [place] [phone] PCP - General 05/14/17 [facility] 09/01/25 documented as of this encounter
--- OUTSIDE RECORDS SUMMARY | 2025-09-23 20:56 | XMS_ITS | Encounter Summary ---
Author Organization [facility] ystem Address [address] [place] [address] Phone Care Team Providers Care Solar System Installer Name Role Phone Ilya Gusman MD Primary Care Provider [phone] Encounter Details Date Type Department Care Team (Late Contact Info) Description 08/09/2024 Scanned Document [facility] - Health Information Department [address] [place] [address] Scan, No Provider Available [address] [place] [address] [place] [address] <No scans attached> Social History Tobacco Use [...] Upcoming Encounters Date Type Department Care Team ([facility] Contact Info) Description 10/06/2025 10:45 AM EST Office Visit [facility] - Internal Medicine [address] [place] [phone] Ilya Gusman MD [address] [place] [phone] Christophe Dailey MD [address] [place] [address] [phone] 01/18/2026 1:00 PM EST Office Visit [facility] [address] [place] [address] Porsha Marsh, LIQUOR BRIDGE OPERATOR [address] [place] [address] 02/22/2026 11:00 AM EDT Office Visit [facility] [address] [place] [address] [address] [place] [phone] Alonso Bae MD [address] [place] [address] [address] [place] [address] 07/17/2026 2:00 PM EDT Office Visit [facility] - Internal Medicine [address] [place] [phone] Ilya Gusman MD [address] [place] [phone] 07/19/2026 11:40 AM EDT Office Visit [facility] [address] [place] [address] Yesi Perez MD [address] [place] [address] documented as of this encounter Visit Diagnoses Not on filedocumented in this encounter Additional Health Concerns Infection Onset Date Last Indicated Resolved Time C difficile Rule-Out 11/01/2024 11/02/2024 024 9:43 AM EST Assessment Noted Time PHQ-9 Depression Total Score: 6 04/28/20 24 1:53 PM EDT documented as of this encounter Care Teams Solar System Installer Relationship Specialty Start Date End Date Ilya Gusman MD [address] [place] [address] [phone] PCP - General 05/14/17 [facility] 09/01/25 documented as of this encounter
--- OUTSIDE RECORDS SUMMARY | 2025-09-23 20:56 | XMS_ITS | Encounter Summary ---
[facility] Address [address] [place] [address] Phone Care Team Providers Care Fish Warden Name Role Phone Ilya Gusman MD Primary Care Provider [phone] Encounter Details Date Type Department Care Team (Late st Contact Info) Description 07/29/2018 Procedure [facility] - Day Surgery 2 [place] [phone] Social History Tobacco Use Types Packs/Day Years [...] Visit [facility] - Internal Medicine [address] [place] [phone] Ilya Gusman MD [address] [place] [phone] Christophe Dailey MD [address] [place] [phone] 01/18/2026 1:00 PM EST Office Visit [facility] 70 [facility] 1 [place] [address] Porsha Marsh, CUSHION PADDER 70 [place] [address] 02/22/2026 11:00 AM EDT Office Visit [facility] [address] [place] [address] [address] [place] [phone] Alonso Bae MD [address] [place] [address] [address] [place] [address] 07/17/2026 2:00 PM EDT Office Visit [facility] - Internal Medicine [address] [place] [phone] Ilya Gusman MD [address] [place] [phone] 07/19/2026 11:40 AM EDT Office Visit [facility] [address] [place] [address] Yesi Perez MD [address] [place] [address] documented as of this encounter Visit Diagnoses [...] documented as of this encounter Care Teams Fish Warden Relationship Specialty Start Date End Date Ilya Gusman MD [address] [place] [phone] PCP - General 05/14/17 [facility] 09/01/25 documented as of this encounter
--- OUTSIDE RECORDS SUMMARY | 2025-09-23 20:56 | XMS_ITS | Encounter Summary ---
Author Organization [facility] ystem Address [address] [place] [address] Phone Care Team Providers Care Bursar Name Role Phone Ilya Gusman MD Primary Care Provider Encounter Details Date Type Department Care Team ([facility] Contact Info) Description 06/14/2024 Orders Only [facility] - Health Information Department [address] [place] [phone] Scan, No Provider Available [address] [place] [address] Dr. Eleazar [place] [phone] Social History Tobacco Use Types Packs/Day Years [...] Encounters Date Type Department Care Team ([facility] Contact Info) Description 10/06/2025 10:45 AM EST Office Visit [facility] - Internal Medicine [address] [place] [phone] Ilya Gusman MD [address] [place] [phone] Chrisotphe Dailey MD [address] [place] [phone] 01/18/2026 1:00 PM EST Office Visit [facility] [address] [place] [address] Porsha Marsh, RN HEMODIALYSIS CHARGE [address] [place] [address] 02/22/2026 11:00 AM EDT Office Visit [facility] [address] [place] [address] [address] [place] [phone] Alonso Bae MD [address] [place] [address] [address] [place] [address] 07/17/2026 2:00 PM EDT Office Visit [facility] - Internal Medicine [address] [place] [phone] Ilya Gusman MD [address] [place] [phone] 07/19/2026 11:40 AM EDT Office Visit [address] [address] Yesi Perez MD [address] [place] [address] documented as of this encounter Procedures Procedure Name Priority Date/Time Associated Diagnosis Comments CT ABDOMEN PELVIS WO CONTRAST Routine 06/12/2024 3:07 PM EDT documented in this encounter Results * CT abdomen pelvis without contrast (06/12/2024 3:07 PM EDT) Anatomical Region Laterality Modality Body [...] documented as of this encounter Care Teams Bursar Relationship Specialty Start Date End Date Ilya Gusman MD [address] [place] [phone] PCP - General 05/14/17 [facility] 09/01/25 documented as of this encounter
--- OUTSIDE RECORDS SUMMARY | 2025-09-23 20:57 | XMS_ITS | Encounter Summary ---
Author Organization [facility] ystem Address [address] [place] [address] Phone Care Team Providers Care Long Lines Operator Name Role Phone Ilya Gusman MD Primary Care Provider [phone] Encounter Details Date Type Department Care Team (Late Contact Info) Description 01/08/2024 Scanned Document [facility] - Health Information Department [address] [place] [address] Scan, No Provider Available [address] [place] [address] [place] [address] <No scans attached> Social History Tobacco Use [...] Upcoming Encounters Date Type Department Care Team ([facility] Contact Info) Description 10/06/2025 10:45 AM EST Office Visit [facility] - Internal Medicine [address] [place] [phone] lIya Gusman MD [address] [place] [phone] Christophe Dailey MD [address] [place] [phone] 01/18/2026 1:00 PM EST Office Visit [facility] [address] [place] [address] Porsha Marsh, FENCE SUPERVISOR [address] [place] [address] 02/22/2026 11:00 AM EDT Office Visit [facility] [address] [place] [address] [address] [place] [phone] Alonso Bae MD [address] [place] [address] [address] [place] [address] 07/17/2026 2:00 PM EDT Office Visit [facility] - Internal Medicine [address] [place] [phone] Ilya Gusman MD [address] [place] [phone] 07/19/2026 11:40 AM EDT Office Visit [facility] [address] [place] [address] Yesi Perez MD [address] [place] [address] documented as of this encounter Visit Diagnoses Not on filedocumented in this encounter Additional Health Concerns Infection Onset Date Last Indicated Resolved Time C difficile Rule-Out 11/01/2024 11/02/2024 024 9:43 AM EST Assessment Noted Time PHQ-9 Depression Total Score: 9 06/05/20 20 9:52 AM EDT documented as of this encounter Care Teams Long Lines Operator Relationship Specialty Start Date End Date Ilya Gusman MD [address] [place] [phone] PCP - General 05/14/17 [facility] 09/01/25 documented as of this encounter
--- OUTSIDE RECORDS SUMMARY | 2025-09-23 20:57 | XMS_ITS | Encounter Summary ---
Author Organization [facility] ystem Address [address] [place] [address] Phone Care Team Providers Care Furniture Repairer Name Role Phone Ilya Gusman MD Primary Care Provider [phone] Encounter Details Date Type Department Care Team (Late st Contact Info) Description 12/05/2021 Orders Only [facility] - Health Information Department [address] [place] [address] Scan, No Provider Available [address] [facility] [place] [address] Social History Tobacco Use Types Packs/Day Years [...] have Coronavirus / COVID-19? No / Unsure 11/27/2021 11:14 AM EST documented as of this encounter Plan of Treatment Upcoming Encounters Date Type Department Care Team (Late st Contact Info) Description 10/06/2025 10:45 AM EST Office Visit [facility] - Internal Medicine [address] [place] [phone] Ilya Gusman MD [address] [place] [phone] Christophe Dailey MD [address] [place] [phone] 01/18/2026 1:00 PM EST Office Visit [facility] [address] [place] [address] Porsha Marsh, PACU NURSE [address] [place] [address] 02/22/2026 11:00 AM EDT Office Visit [facility] [address] [place] [address] [address] [place] [phone] Alonso Bae MD [address] [place] [address] [address] [place] [address] 07/17/2026 2:00 PM EDT Office Visit [facility] - Internal Medicine [address] [place] [phone] Ilya Gusman MD [address] [place] [phone] 07/19/2026 11:40 AM EDT Office Visit [facility] [address] [place] [address] Yesi Perez MD [address] [place] [address] documented as of this encounter Procedures Procedure Name Priority Date/Time Associated Diagnosis Comments MRI BRAIN WO CONTRAST Routine 06/27/2021 documented in this encounter Results * MRI brain without contrast (06/27/2021) Anatomical Region Laterality Modality Head and Neck Magnetic Resonan ce us No Provider Available Scan IMG MRI PROCEDURES Fi nal Result documented in this encounter Visit Diagnoses Not on filedocumented in this encounter Additional Health Concerns Infection Onset Date Last Indicated Resolved Time Covid Possible 05/24/2022 05/24/2022 05/24/2022 4: 21 [...] documented as of this encounter Care Teams Furniture Repairer Relationship Specialty Start Date End Date Ilya Gusman MD [address] [place] [phone] PCP - General 05/14/17 [facility] 09/01/25 documented as of this encounter
--- OUTSIDE RECORDS SUMMARY | 2025-09-23 20:57 | XMS_ITS | Encounter Summary ---
Author Organization [facility] ystem Address [address] [place] [address] Phone Care Team Providers Care Mold Polisher Name Role Phone Ilya Gusman MD Primary Care Provider [phone] Encounter Details Date Type Department Care Team (Late st Contact Info) Description 12/07/2021 Orders Only [facility] - Health Information Department [address] [place] [address] Scan, No Provider Available [address] [place] [address] Social History Tobacco Use Types Packs/Day Years [...] [facility] - Internal Medicine [address] [place] [phone] Ilya Gusman MD [address] [place] [phone] Christophe Dailey MD [address] [place] [phone] 01/18/2026 1:00 PM EST Office Visit [facility] [address] [place] [address] Porsha Marsh, COURT SECURITY OFFICER [address] [place] [address] 02/22/2026 11:00 AM EDT Office Visit [facility] [address] [place] [address] [address] [place] [phone] Alonso Bae MD [address] [place] [address] [address] [place] [address] 07/17/2026 2:00 PM EDT Office Visit [facility] - Internal Medicine [address] [place] [phone] Ilya Gusman MD [address] [place] [phone] 07/19/2026 11:40 AM EDT Office Visit [facility] [address] [place] [address] Yesi Perez MD [address] [place] [address] documented as of this encounter Procedures Procedure Name Priority Date/Time Associated Diagnosis Comments XR CHEST 1 VW Routine 04/18/2021 documented in this encounter Results * X-ray chest 1 view (04/18/2021) Anatomical Region Laterality Modality Body Radiographic Carmelina [...] documented as of this encounter Care Teams Mold Polisher Relationship Specialty Start Date End Date Ilya Gusman MD [address] [place] [phone] PCP - General 05/14/17 [facility] 09/01/25 documented as of this encounter
--- OUTSIDE RECORDS SUMMARY | 2025-09-23 20:57 | XMS_ITS | Encounter Summary ---
Author Organization [facility] Address [address] [place] [address] Phone Care Team Providers Care Patrol Police Lieutenant Name Role Phone Ilya Gusman MD Primary Care Provider [phone] Reason for Visit * Reason Onset Date Comments Med Refill 08/08/2021 Encounter Details Date Type Department Care Team (Late st Contact Info) Description 08/08/2021 Refill [facility] - Internal Medicine [address] [place] [phone] Ilya Gusman MD [address] [place] [phone] Med Refill Social History Tobacco Use [...] have Coronavirus / COVID-19? No / Unsure 08/09/2021 12:59 PM EDT documented as of this encounter Miscellaneous Notes * Telephone Encounter - Suha Rendon PhT - 08/08/2021 8:02 AM EDT Trazodone last rx 07/13/21 qty 60 w/ 0 refills Last OV with PCP/APC: 07/19/21 Future Appointments Date Time Provider Department Center 08/09/2021 1:00 PM [facility]THO [facility] 08/14/2021 11:30 AM Christophe Dailey MD [facility] 01/21/2022 11:20 AM Ilya Gusamn MD [facility] Ramos Refill Team, Loft documented in this encounter Plan of Treatment Upcoming Encounters Date Type Department Care Team (Late st Contact Info) Description 10/06/2025 10:45 AM EST Office Visit [facility] - Internal Medicine [address] [place] [phone] Ilya Gusman MD [address] [place] [phone] Christophe Dailey MD [address] [place] [phone] 01/18/2026 1:00 PM EST Office Visit [facility] [address] [address] Porsha Marsh, RECTIFYING ATTENDANT [address] [place] [address] 02/22/2026 11:00 AM EDT Office Visit [facility] [address] [place] [address] [address] [place] [address] Alonso Bae MD [address] [facility] [address] [place] [address] 07/17/2026 2:00 PM EDT Office Visit [facility] - Internal Medicine [address] [place] [phone] Ilya Gusman MD [address] [place] [phone] 07/19/2026 11:40 AM EDT Office Visit [facility] 70 [facility] 1 [place] [address] Yesi Perez MD 70 [place] [address] documented as of this encounter Visit Diagnoses [...] documented as of this encounter Care Teams Patrol Police Lieutenant Relationship Specialty Start Date End Date Ilya Gusman MD [address] [place] [phone] PCP - General 05/14/17 [facility] 09/01/25 documented as of this encounter
--- OUTSIDE RECORDS SUMMARY | 2025-09-23 20:57 | XMS_ITS | Encounter Summary ---
Author Organization [facility] Address [address] [place] [address] Phone Care Team Providers Care Chemical Treatment Operator Name Role Phone Ilya Gusman MD Primary Care Provider [phone] Reason for Visit * Reason Onset Date Comments Med Refill 09/11/2021 Encounter Details Date Type Department Care Team (Late Contact Info) Description 09/11/2021 Refill [facility] - Internal Medicine [address] [place] [phone] Christophe Dailey MD [address] [place] [phone] Med Refill Social History Tobacco Use [...] have Coronavirus / COVID-19? No / Unsure 08/21/2021 4:20 PM EDT documented as of this encounter Miscellaneous Notes * Telephone Encounter - Jany Daley LPN - 09/12/2021 10:13 AM EDT Dilaudid- pt asking to go to 2 week rx. Please advise Pharmacy: [facility] DATE OF LAST REFILL? 09/06 FREQUENCY OF REFILLS? 7 days DATE REFILL IS DUE? 09/12 IS THIS AN EARLY REFILL? No Last Urine Drug Screen date: 08/06/2021 Last Opioid Treatment Agreement date: 09/25/2018 DATE OF LAST OFFICE VISIT: 09/03/21 DATE OF NEXT OFFICE VISIT: Future Appointments Date Time Provider Department Center 10/05/2021 11:15 AM Arthur Meneses MD [facility] 01/21/2022 11:20 AM Ilya Gusman MD [facility] NOVELTY CANDY MAKER reviewed on 09/12/2021 by JANY DALEY LPN and no red flags were noted documented in this encounter Plan of Treatment Upcoming Encounters Date Type Department Care Team (Late st Contact Info) Description 10/06/2025 10:45 AM EST Office Visit [facility] - Internal Medicine [address] [place] [phone] Ilya Gusman MD [address] [place] [phone] Christophe Dailey MD [address] [place] [phone] 01/18/2026 1:00 PM EST Office Visit [facility] [address] [address] Porsha Marsh, EAR PULL MACHINE OPERATOR 70 [place] [address] 02/22/2026 11:00 AM EDT Office Visit [facility] [address] [facility] [address] [place] [address] Alonso Bae MD [address] [place] [address] 07/17/2026 2:00 PM EDT Office Visit [facility] - Internal Medicine [address] [place] [phone] Ilya Gusman MD [address] [place] [phone] 07/19/2026 11:40 AM EDT Office Visit [facility] 70 [facility] 1 [place] [address] Yesi Perez MD 70 [place] [address] documented as of this encounter Visit Diagnoses [...] as of this encounter Care Teams Chemical Treatment Operator Relationship Specialty Start Date End Date Ilya Gusman MD [address] [place] [address] [phone] PCP - General 05/14/17 [facility] 09/01/25 documented as of this encounter
--- OUTSIDE RECORDS SUMMARY | 2025-09-23 20:57 | XMS_ITS | Encounter Summary ---
Author Organization [facility] ystem Address [address] [place] [address] Phone Care Team Providers Care Traffic Engineering Director Name Role Phone Ilya Gusman MD Primary Care Provider [phone] Encounter Details Date Type Department Care Team ([facility] Contact Info) Description 03/09/2024 Orders Only [facility] - Health Information Department [address] [place] [phone] Scan, No Provider Available [address] [place] [address] Dr. Eleazar [place] [phone] Social History Tobacco Use Types Packs/Day Years [...] Upcoming Encounters Date Type Department Care Team ([facility] Contact Info) Description 10/06/2025 10:45 AM EST Office Visit [facility] - Internal Medicine [address] [place] [address] [phone] Ilya Gusman MD [address] [place] [phone] Christophe Dailey MD [address] [place] [phone] 01/18/2026 1:00 PM EST Office Visit [facility] [address] [place] [address] Porsha Marsh, KNIFE CUTTER [address] [place] [address] 02/22/2026 11:00 AM EDT Office Visit [facility] [address] [place] [address] [address] [place] [phone] Alonso Bae MD [address] [place] [address] [address] [place] [address] 07/17/2026 2:00 PM EDT Office Visit [facility] - Internal Medicine [address] [place] [address] [phone] Ilya Gusman MD [address] [place] [phone] 07/19/2026 11:40 AM EDT Office Visit [facility] [address] [place] [address] Yesi Perez MD [address] [place] [address] documented as of this encounter Procedures Procedure Name Priority Date/Time Associated Diagnosis Comments XR CHEST 1 VW Routine 03/08/2024 10:42 AM EDT MR INO LABS Routine 03/06/2024 11:48 AM EDT XR CHEST 1 VW Routine 03/06/2024 10:34 AM EDT ECG 12-LEAD Today 03/06/2024 9:38 AM EDT documented in this encounter Results * X-ray chest 1 view (03/08/2024 10:42 AM EDT) Anatomical Region Laterality Modality Body Radiographic Carmelina ging us No Provider Available Scan IMG XR PROCEDURES Fin al Result * MR [facility] (03/06/2024 11:48 AM EDT) us No Provider Available Scan LAB BLOOD ORDERABLES Final Result * X-ray chest 1 view (03/06/2024 10:34 AM EDT) Anatomical Region Laterality Modality Body Radiographic Carmelina ging us No Provider Available Scan IMG XR PROCEDURES Fin al Result * ECG (03/06/2024 9:38 AM EDT) us No Provider Available Scan ECG ORDERABLES Final Result documented in this encounter Visit Diagnoses Not on filedocumented in this encounter Additional Health Concerns Infection Onset Date Last Indicated Resolved Time C difficile Rule-Out 11/01/2024 11/02/2024 024 9:43 AM EST Assessment Noted Time PHQ-9 Depression Total Score: 9 06/05/20 20 9:52 AM EDT documented as of this encounter Care Teams Traffic Engineering Director Relationship Specialty Start Date End Date Ilya Gusman MD [address] [place] [phone] PCP - General 05/14/17 [facility] 09/01/25 documented as of this encounter
--- OUTSIDE RECORDS SUMMARY | 2025-09-23 20:57 | XMS_ITS | Encounter Summary ---
Author Organization [facility] ystem Address [address] [place] [address] Phone Care Team Providers Care Edger Saw Operator Name Role Phone Ilya Gusman MD Primary Care Provider [phone] Encounter Details Date Type Department Care Team (Late st Contact Info) Description 06/01/2021 Procedure Pass [facility] - MR Imaging [address] [place] [phone] Social History Tobacco Use Types [...] Health [facility] - Internal Medicine [address] [place] [address] [phone] Ilya Gusman MD [address] [place] [address] [phone] Christophe Dailey MD [address] [place] [phone] 01/18/2026 1:00 PM EST Office Visit [facility] [address] [address] Porsha Marsh CNP 70 [place] [address] 02/22/2026 11:00 AM EDT Office Visit [facility] [address] [facility] [address] [place] [phone] Alonso Bae MD [address] [place] [address] [address] [place] [address] 07/17/2026 2:00 PM EDT Office Visit [facility] - Internal Medicine [address] [place] [phone] Ilya Gusman MD [address] [place] [phone] 07/19/2026 11:40 AM EDT Office Visit [facility] [address] [address] Yesi Perez MD 70 [place] [address] documented as of this encounter [...] documented as of this encounter Care Teams Edger Saw Operator Relationship Specialty Start Date End Date Ilya Gusman MD [address] [place] [phone] PCP - General 05/14/17 [facility] 09/01/25 documented as of this encounter
--- OUTSIDE RECORDS SUMMARY | 2025-09-23 20:57 | XMS_ITS | Encounter Summary ---
Author Organization [facility] ystem Address [address] [place] [address] Phone Care Team Providers Care Metal Sprayer Machined Parts Name Role Phone Ilya Gusman MD Primary Care Provider [phone] Encounter Details Date Type Department Care Team (Late Contact Info) Description 01/07/2024 Scanned Document [facility] - Health Information Department [address] [place] [address] Scan, No Provider Available [address] [place] [address] [place] [address] <No scans attached> Social History Tobacco Use [...] [facility] Contact Info) Description 10/06/2025 10:45 AM EST Office Visit [facility] - Internal Medicine [address] [place] [phone] Ilya Gusman MD [address] [place] [phone] Christophe Dailey MD [address] [place] [address] [phone] 01/18/2026 1:00 PM EST Office Visit [facility] [address] [place] [address] Porsha Marsh, NITROGLYCERIN DISTRIBUTOR [address] [place] [address] 02/22/2026 11:00 AM EDT Office Visit [facility] [address] [place] [address] [address] [place] [phone] Alonso Bae MD [address] [place] [address] [address] [place] [address] 07/17/2026 2:00 PM EDT Office Visit [facility] - Internal Medicine [address] [place] [phone] Ilya Gusman MD [address] [place] [phone] 07/19/2026 11:40 AM EDT Office Visit [facility] [address] [place] [address] Yesi Perez MD [address] [place] [address] documented as of this encounter Visit Diagnoses Not on filedocumented in this encounter Additional Health Concerns Infection Onset Date Last Indicated Resolved Time C difficile Rule-Out 11/01/2024 11/02/2024 024 9:43 AM EST Assessment Noted Time PHQ-9 Depression Total Score: 9 06/05/20 20 9:52 AM EDT documented as of this encounter Care Teams Metal Sprayer Machined Parts Relationship Specialty Start Date End Date Ilya Gusman MD [address] [place] [phone] PCP - General 05/14/17 [facility] 09/01/25 documented as of this encounter
--- OUTSIDE RECORDS SUMMARY | 2025-09-23 20:57 | XMS_ITS | Encounter Summary ---
Author Organization [facility] ystem Address [address] [place] [address] Phone Care Team Providers Care Sample Sewer Name Role Phone Ilya Gusman MD Primary Care Provider Encounter Details Date Type Department Care Team (Late Contact Info) Description 03/23/2024 Scanned Document [facility] - Health Information Department [address] [place] [phone] Scan, No Provider Available [address] [place] [address] [place] [address] <No scans attached> Social History Tobacco Use [...] 10/06/2025 10:45 AM EST Office Visit [facility] - Internal Medicine [address] [place] [phone] Ilya Gusman MD [address] [place] [phone] Christophe Dailey MD [address] [place] [phone] 01/18/2026 1:00 PM EST Office Visit [facility] [address] [place] [address] Porsha Marsh, ASSEMBLER 1ST SHIFT [address] [place] [address] 02/22/2026 11:00 AM EDT Office Visit [facility] [address] [place] [address] [address] [place] [phone] Alonso Bae MD [address] [place] [address] [address] [place] [address] 07/17/2026 2:00 PM EDT Office Visit [facility] - Internal Medicine [address] [place] [phone] Ilya Gusman MD [address] [place] [phone] 07/19/2026 11:40 AM EDT Office Visit [facility] [address] [place] [address] Yesi Perez MD [address] [place] [address] documented as of this encounter Visit Diagnoses Not on filedocumented in this encounter Additional Health Concerns Infection Onset Date Last Indicated Resolved Time C difficile Rule-Out 11/01/2024 11/02/2024 024 9:43 AM EST Assessment Noted Time PHQ-9 Depression Total Score: 9 06/05/20 20 9:52 AM EDT documented as of this encounter Care Teams Sample Sewer Relationship Specialty Start Date End Date Ilya Gusman MD [address] [place] [phone] PCP - General 05/14/17 [facility] 09/01/25 documented as of this encounter
--- OUTSIDE RECORDS SUMMARY | 2025-09-23 20:57 | XMS_ITS | Encounter Summary ---
Author Organization [facility] Address [address] [place] [address] Phone Care Team Providers Care Management Lead Name Role Phone Ilya Gusman MD Primary Care Provider [phone] Reason for Visit * Reason Onset Date Comments Med Refill 07/24/2021 Encounter Details Date Type Department Care Team (Late st Contact Info) Description 07/24/2021 Refill [facility] - Internal Medicine [address] [place] [address] [phone] Ilya Gusman MD [address] [place] [phone] Med Refill Social History Tobacco Use [...] Telephone Encounter - Sarahy Henderson PhT - 07/25/2021 11:13 AM EDT Dilaudid Pharmacy: [facility] DATE OF LAST REFILL? 07/13 FREQUENCY OF REFILLS? 14 days DATE REFILL IS DUE? 07/27 IS THIS AN EARLY REFILL? No Last Urine Drug Screen date: 06/05/2020 Last Opioid Treatment Agreement date: 09/25/2018 DATE OF LAST OFFICE VISIT: 07/19/21 DATE OF NEXT OFFICE VISIT: Future Appointments Date Time Provider Department Center 2021 8:00 AM Bethanie Zepeda NP PPK PAIN PPK 08/09/2021 1:00 PM ORTHO SSH PPK [facility]G PPK 08/14/2021 11:30 AM Christophe Dailey MD LNG IM LNG 01/21/2022 11:20 AM Ilya Gusman MD LNG IM LNG MANUFACTURING LAB TECHNICIAN reviewed on 07/25/2021 by Ian PICKETT and no red flags were noted Ian Pierson Refill Team, Loft documented in this encounter Plan of Treatment Upcoming Encounters Date Type Department Care Team (Late st Contact Info) Description 10/06/2025 10:45 AM EST Office Visit [facility] - Internal Medicine [address] [place] [phone] Ilya Gusman MD [address] [place] [phone] Christophe Dailey MD [address] [place] [phone] 01/18/2026 1:00 PM EST Office Visit [facility] [address] [place] [address] Porsha Marsh CNP 70 [place] [address] 02/22/2026 11:00 AM EDT Office Visit [facility] [address] [place] [phone] Alonso Bae MD [address] [place] [address] [address] [place] [address] 07/17/2026 2:00 PM EDT Office Visit [facility] - Internal Medicine [address] [place] [address] [phone] Ilya Gusman MD [address] [place] [phone] 07/19/2026 11:40 AM EDT Office Visit [facility] [address] [address] Yesi Perez MD 70 [place] [address] documented as of this encounter Visit Diagnoses [...] documented as of this encounter Care Teams Management Lead Relationship Specialty Start Date End Date Ilya Gusman MD [address] [place] [address] [phone] PCP - General 05/14/17 [facility] 09/01/25 documented as of this encounter
--- OUTSIDE RECORDS SUMMARY | 2025-09-23 20:57 | XMS_ITS | Encounter Summary ---
Author Organization [facility] ystem Address [address] [place] [address] Phone Care Team Providers Care Dishwasher Preparer Name Role Phone Ilya Gusman MD Primary Care Provider [phone] Encounter Details Date Type Department Care Team (Late st Contact Info) Description 08/23/[address] [facility] - Health Information Department [address] [place] [address] Scan, No Provider Available [address] [facility] [place] [address] Social History Tobacco Use Types Packs/Day Years [...] [facility] - Internal Medicine [address] [place] [phone] Ilya Gusman MD [address] [place] [phone] Christophe Dailey MD [address] [place] [phone] 01/18/2026 1:00 PM EST Office Visit [facility] [address] [place] [address] Porsha Marsh, MARILIA [address] [place] [address] 02/22/2026 11:00 AM EDT Office Visit [facility] [address] [place] [address] [address] [place] [phone] Alonso Bae MD [address] [place] [address] [address] [place] [address] 07/17/2026 2:00 PM EDT Office Visit [facility] - Internal Medicine [address] [place] [phone] Ilya Gusman MD [address] [place] [phone] 07/19/2026 11:40 AM EDT Office Visit [facility] [address] [place] [address] Yesi Perez MD [address] [place] [address] documented as of this encounter Procedures Procedure Name Priority Date/Time Associated Diagnosis Comments DIABETES EYE EXAM Routine 08/22/2021 documented in this encounter Results * Diabetes Eye Exam (08/22/2021) No Provider Available Scan HEALTH MAINTENANCE Fi [...] Rule-Out 10/30/2022 10/30/2022 022 10:46 PM EST Influenza/CITNHYA Rule-Out 10/30/2022 10/30/202210/30 4:15 PM EST Respiratory Virus Rule-Out 10/30/2022 10/30/2022 1 12/31/2021 4:50 PM EST C difficile Rule-Out 12/05/2023 12/05/2023 024 10:39 AM EST C difficile Rule-Out 12/20/2023 12/21/2023 024 1:20 PM EST C difficile Rule-Out 11/01/2024 11/02/2024 024 9:43 AM EST Assessment Noted Time PHQ-9 Depression Total Score: 9 06/05/20 20 9:52 AM EDT documented as of this encounter Care Teams Dishwasher Preparer Relationship Specialty Start Date End Date Ilya Gusman MD [address] [place] [phone] PCP - General 05/14/17 [facility] 09/01/25 documented as of this encounter
--- OUTSIDE RECORDS SUMMARY | 2025-09-23 20:57 | XMS_ITS | Encounter Summary ---
Author Organization [facility] ystem Address [address] [place] [address] Phone Care Team Providers Care Nursing Agency Manager Name Role Phone Ilya Gusman MD Primary Care Provider [phone] Encounter Details Date Type Department Care Team ([facility] Contact Info) Description 02/04/2024 Orders Only [facility] - Health Information Department [address] [place] [address] Scan, No Provider Available [address] [place] [address] Dr. Eleazar [place] [phone] Social History Tobacco Use Types Packs/Day Years [...] Upcoming Encounters Date Type Department Care Team ([facility] Contact Info) Description 10/06/2025 10:45 AM EST Office Visit [facility] - Internal Medicine [address] [place] [phone] Ilya Gusman MD [address] [place] [phone] Christophe Dailey MD [address] [place] [phone] 01/18/2026 1:00 PM EST Office Visit [facility] [address] [place] [address] Porsha Marsh, OCC THER [address] [place], [place] [phone] 02/22/2026 11:00 AM EDT Office Visit [facility] [address] [place] [address] [address] [place] [phone] Alonso Bae MD [address] [place] [address] [address] [place] [address] 07/17/2026 2:00 PM EDT Office Visit [facility] - Internal Medicine [address] [place] [phone] Ilya Gusman MD [address] [place] [phone] 07/19/2026 11:40 AM EDT Office Visit [facility] [address] [place] [address] Yesi Perez MD [address] [place] [address] documented as of this encounter Procedures Procedure Name Priority Date/Time Associated Diagnosis Comments COVID-19 (EXTERNAL) Routine 02/01/2024 MR INO LABS Routine 02/01/2024 MR INO LABS Routine 02/01/2024 XR CHEST 1 VW Routine 02/01/2024 CT ABDOMEN PELVIS W CONTRAST Routine 02/01/2024 ECG 12-LEAD Today 02/01/2024 documented in this encounter Results * COVID-19 (External) (02/01/2024) External COVID-19 Negative Not Detected, Negative, Non-reacti ve ACC: [facility] Nasopharyngeal (Nasopharynx) us Historical Provider LAB MICROBIOLOGY - GENERA L ORDERABLES Final Result ACC: [address] [address], [place] [phone] * MR Ino briseno (02/01/2024) us No Provider Available Scan LAB BLOOD ORDERABLES Final Result * MR Ino briseno (02/01/2024) us No Provider Available Scan LAB BLOOD ORDERABLES Final Result * X-ray chest 1 view (02/01/2024) Anatomical Region Laterality Modality Body Radiographic Carmelina ging us No Provider Available Scan IMG XR PROCEDURES Fin al Result * CT abdomen pelvis with contrast per algorithm (02/01/2024) Anatomical Region Laterality Modality Body Computed Tomogra phy us No Provider Available Scan IMG CT PROCEDURES Fin al Result * ECG (02/01/2024) us No Provider Available Scan ECG ORDERABLES Final Result documented in this encounter Visit Diagnoses Not on filedocumented in this encounter Additional Health Concerns Infection Onset Date Last Indicated Resolved Time C difficile Rule-Out 11/01/2024 11/02/2024 024 9:43 AM EST Assessment Noted Time PHQ-9 Depression Total Score: 9 06/05/20 20 9:52 AM EDT documented as of this encounter Care Teams Nursing Agency Manager Relationship Specialty Start Date End Date Ilya Gusman MD [address] [place] [phone] PCP - General 05/14/17 [facility] 09/01/25 documented as of this encounter
--- OUTSIDE RECORDS SUMMARY | 2025-09-23 20:57 | XMS_ITS | Encounter Summary ---
Author Organization [facility] Address [address] [place] [address] Phone Care Team Providers Care Forester Silviculture Name Role Phone Ilya Gusman MD Primary Care Provider [phone] Reason for Visit * Reason Comments Med Refill Encounter Details Date Type Department Care Team (Late Contact Info) Description 11/11/2017 Refill [facility] - Internal Medicine [address] [place] [phone] Ilya Gusman MD [address] [place] [phone] Med Refill Social History Tobacco Use [...] Telephone Encounter - Suha Rendon PhT - 11/14/2017 9:32 AM EST Wingol, 07/09/17 qty 180 w/0 refills. Atorvastatin 40 mg, last written 02/22/16 Qty 90 w/ 3 refills ?? Last ov 09/24/17 Lab Results Component Value Date WBC 7.7 08/20/2017 HGB 13.6 (L) 08/20/2017 HCT 39.5 (L) 08/20/2017 PLT 253 08/20/2017 CHOL 191 01/31/2017 TRIG 135 09/19/2016 HDL 56 01/31/2017 LDLDIRECT 116.0 01/31/2017 ALT 19 08/20/2017 AST 21 08/20/2017 NA 142 08/20/2017 K 3.6 08/20/2017 CL 103 08/20/2017 CREATININE 1.0 01/06/2017 BUN 12 08/20/2017 CO2 23 (L) 08/20/2017 PSA 3.62 08/14/2017 INR 1.4 06/26/2017 HGBA1C 5.6 06/18/2017 MICROALBUR <5.0 01/31/2017 Future Appointments Date Time Provider Department Center 11/18/2017 8:30 AM William Edwards MD PPK PAIN PPK 01/15/2018 10:00 AM GEOVANNI Alcantara NEV NEUROSP NEV 03/19/2018 9:00 AM GEOVANNI Sloan KIN ENC KIN 03/27/2018 10:20 AM Ninoska Powell NP LNG IM LNG Ian HANCOCK documented in this encounter Plan of Treatment Upcoming Encounters Date Type Department Care Team (Late st Contact Info) Description 10/06/2025 10:45 AM EST Office Visit [facility] - Internal Medicine [address] [place] [phone] Ilya Gusman MD [address] [place] [phone] Christophe Dailey MD [address] [place] [phone] 01/18/2026 1:00 PM EST Office Visit [facility] 70 [facility] 1 [place] [address] Porsha Marsh CNP 70 [place] [address] 02/22/2026 11:00 AM EDT Office Visit [facility] [address] [place] [address] [address] [place] [phone] Alonso Bae MD [address] [place] [address] [address] [place] [address] 07/17/2026 2:00 PM EDT Office Visit [facility] - Internal Medicine [address] [place] [phone] Ilya Gusman MD [address] [place] [phone] 07/19/2026 11:40 AM EDT Office Visit [facility] [address] [address] Yesi Perez MD 70 [place] [address] documented as of this encounter Visit Diagnoses [...] documented as of this encounter Care Teams Forester Silviculture Relationship Specialty Start Date End Date Ilya Gusman MD [address] [place] [phone] PCP - General 05/14/17 [facility] 09/01/25 documented as of this encounter
--- OUTSIDE RECORDS SUMMARY | 2025-09-23 20:57 | XMS_ITS | Encounter Summary ---
Author Organization [facility] ystem Address [address] [place] [address] Phone Care Team Providers Care Knit Goods Cutter Hand Name Role Phone Ilya Gusman MD Primary Care Provider [phone] Encounter Details Date Type Department Care Team (Late Contact Info) Description 03/22/2024 Procedure Pass [facility] Endoscopy [address] [place] [phone] Social History Tobacco Use Types [...] Upcoming Encounters Date Type Department Care Team ([facility] Contact Info) Description 10/06/2025 10:45 AM EST Office Visit [facility] - Internal Medicine [address] [place] [phone] Ilya Gusman MD [address] [place] [phone] Christophe Dailey MD [address] [place] [phone] 01/18/2026 1:00 PM EST Office Visit [facility] [address] [place] [address] Porsha Marsh, HEAD PACKAGER [address] [place] [address] 02/22/2026 11:00 AM EDT Office Visit [facility] [address] [place] [address] [address] [place] [phone] Alonso Bae MD [address] [place] [address] 2 [place] [address] 07/17/2026 2:00 PM EDT Office Visit [facility] - Internal Medicine [address] [place] [phone] Ilya uGsman MD [address] [place] [phone] 07/19/2026 11:40 AM EDT Office Visit [facility] [address] [place] [address] Yesi Perez MD [address] [place] [address] documented as of this encounter Visit Diagnoses Not on filedocumented in this encounter Additional Health Concerns Infection Onset Date Last Indicated Resolved Time C difficile Rule-Out 11/01/2024 11/02/2024 024 9:43 AM EST Assessment Noted Time PHQ-9 Depression Total Score: 9 06/05/20 20 9:52 AM EDT documented as of this encounter Care Teams Knit Goods Cutter Hand Relationship Specialty Start Date End Date Ilya uGsman MD [address] [place] [phone] PCP - General 05/14/17 [facility] 09/01/25 documented as of this encounter
--- OUTSIDE RECORDS SUMMARY | 2025-09-23 20:57 | XMS_ITS | Encounter Summary ---
Author Organization [facility] Address [address] [place] [address] Phone Care Team Providers Care Tip Fixer Name Role Phone Ilya Gusman MD Primary Care Provider [phone] Reason for Visit * Reason Onset Date Comments Med Refill 08/06/2021 Encounter Details Date Type Department Care Team (Late st Contact Info) Description 08/06/2021 Refill [facility] - Internal Medicine [address] [place] [phone] Ilya Gusman MD [address] [place] [phone] Med Refill Social History Tobacco Use [...] encounter Miscellaneous Notes * Telephone Encounter - Lynsey Hutton RN - 08/07/2021 5:50 PM EDT Pt calling to f/u on refill request Lynsey Hutton LIGHTING FIXTURES DECORATOR LNG/IM * Telephone Encounter - Sheron Hoover PhT - 08/06/2021 8:42 AM EDT Dilaudid 4mg Pharmacy: [facility] DATE OF LAST REFILL? 07/25/21 FREQUENCY OF REFILLS? 7 days DATE REFILL IS DUE? 08/01/21 IS THIS AN EARLY REFILL? No Last Urine Drug Screen date: 06/05/2020 Last Opioid Treatment Agreement date: 09/25/2018 DATE OF LAST OFFICE VISIT: 07/19/21 DATE OF NEXT OFFICE VISIT: Future Appointments Date Time Provider Department Center 08/09/2021 1:00 PM ORTHO SSH PPK [facility]G PPK 08/14/2021 11:30 AM Christophe Dailey MD LNG IM LNG 01/21/2022 11:20 AM Ilya Gusman MD LNG IM LNG SMALL STOCK FACER reviewed on 08/06/2021 by Ian SORIA and no red flags were noted Ian Soria/LÓPEZ Refill TeamRenetta documented in this encounter Plan of Treatment Upcoming Encounters Date Type Department Care Team (Late st Contact Info) Description 10/06/2025 10:45 AM EST Office Visit [facility] - Internal Medicine [address] [place] [phone] Ilya Gusman MD [address] [place] [phone] Christophe Dailey MD [address] [place] [phone] 01/18/2026 1:00 PM EST Office Visit [facility] [address] [place] [address] Porsha Marsh, PICKER / PACKER 70 [place] [address] 02/22/2026 11:00 AM EDT Office Visit [facility] [address] [place] [address] [address] [place] [phone] Alonso Bae MD [address] [place] [address] 2 [place] [address] 07/17/2026 2:00 PM EDT Office Visit [facility] - Internal Medicine [address] [place] [phone] Ilya Gusman MD [address] [place] [phone] 07/19/2026 11:40 AM EDT Office Visit [facility] [address] [place] [address] Yesi Perez MD [address] [place] [address] documented as of this encounter Visit Diagnoses [...] documented as of this encounter Care Teams Tip Fixer Relationship Specialty Start Date End Date Ilya Gusman MD [address] [place] [phone] PCP - General 05/14/17 [facility] 09/01/25 documented as of this encounter
--- OUTSIDE RECORDS SUMMARY | 2025-09-23 20:57 | XMS_ITS | Encounter Summary ---
Author Organization [facility] ystem Address [address] [place] [address] Phone Care Team Providers Care Die Cutter Diamond Name Role Phone Ilya Gusman MD Primary Care Provider [phone] Encounter Details Date Type Department Care Team (Late Contact Info) Description 02/02/2024 Scanned Document [facility] - Health Information Department [address] [place] [phone] Scan, No Provider Available [address] [place] [address] [place] [address] <No scans attached> Social History Tobacco Use [...] [facility] - [facility] Medicine [address] [place] [phone] Ilya Gusman MD [address] [place] [phone] Christophe Dailey MD [address] [place] [address] [phone] 01/18/2026 1:00 PM EST Office Visit [facility] [address] [place] [address] Porsha Marsh, ELECTRO WINNING OPERATOR [address] [place] [address] 02/22/2026 11:00 AM EDT Office Visit [facility] [address] [place] [address] [address] [place] [phone] Alonso Bae MD [address] [place] [address] [address] [place] [address] 07/17/2026 2:00 PM EDT Office Visit [facility] - Internal Medicine [address] [place] [phone] Ilya Gusman MD [address] [place] [phone] 07/19/2026 11:40 AM EDT Office Visit [facility] [address] [place] [address] Yesi Perez MD [address] [place] [address] documented as of this encounter Visit Diagnoses Not on filedocumented in this encounter Additional Health Concerns Infection Onset Date Last Indicated Resolved Time C difficile Rule-Out 11/01/2024 11/02/2024 024 9:43 AM EST Assessment Noted Time PHQ-9 Depression Total Score: 9 06/05/20 20 9:52 AM EDT documented as of this encounter Care Teams Die Cutter Diamond Relationship Specialty Start Date End Date Ilya Gusman MD [address] [place] [address] [phone] PCP - General 05/14/17 [facility] 09/01/25 documented as of this encounter
--- OUTSIDE RECORDS SUMMARY | 2025-09-23 20:57 | XMS_ITS | Encounter Summary ---
Author Organization [facility] Address [address] [place] [address] Phone Care Team Providers Care Linux Consultant Name Role Phone Ilya Gusman MD Primary Care Provider [phone] Reason for Visit * Reason Onset Date Comments Med Refill 08/13/2021 Encounter Details Date Type Department Care Team (Late st Contact Info) Description 08/13/2021 Refill [facility] - Internal Medicine [address] [place] [phone] Ilya Gusman MD [address] [place] [phone] Med Refill Social History Tobacco Use [...] have Coronavirus / COVID-19? No / Unsure 08/15/2021 7:47 AM EDT documented as of this encounter Miscellaneous Notes * Telephone Encounter - Sarahy Henderson PhT - 08/14/2021 12:48 PM EDT daniele 07/13/21 [id number] Future Appointments Date Time Provider Department Center 10/05/2021 11:15 AM MD PATTY [facility] 01/21/2022 11:20 AM Ilya Gusman MD LNG IM LNG 07/19/21 ov Ian Pierson Refill Team, Loft documented in this encounter Plan of Treatment Upcoming Encounters Date Type Department Care Team (Late st Contact Info) Description 10/06/2025 10:45 AM EST Office Visit [facility] - Internal Medicine [address] [place] [phone] lIya Gusman MD [address] [place] [phone] Christophe Dailey MD [address] [place] [address] [phone] 01/18/2026 1:00 PM EST Office Visit [facility] [address] [facility] 1 [place] [address] Porsha Marsh, MARILIA [address] [place] [address] 02/22/2026 11:00 AM EDT Office Visit [facility] [address] [place] [address] [address] [place] [phone] Alonso Bae MD [address] [facility] [address] [place] [address] 07/17/2026 2:00 PM EDT Office Visit [facility] - Internal Medicine [address] [place] [phone] Ilya Gusman MD [address] [place] [address] [phone] 07/19/2026 11:40 AM EDT Office Visit [facility] [address] [address] Yesi Perez MD 70 [place] [address] documented as of this encounter Visit Diagnoses [...] documented as of this encounter Care Teams Linux Consultant Relationship Specialty Start Date End Date Ilya Gusman MD [address] [place] [address] [phone] PCP - General 05/14/17 [facility] 09/01/25 documented as of this encounter
--- OUTSIDE RECORDS SUMMARY | 2025-09-23 20:57 | XMS_ITS | Encounter Summary ---
[facility] Organization [facility] Address [address] [place] [address] Phone Care Team Providers Care Consulting Software Engineer Name Role Phone Ilya Gusman MD Primary Care Provider [phone] Encounter Details Date Type Department Care Team (Late Contact Info) Description 12/12/2017 Scanned Document [facility] - Health Information Department [address] [place] [address] Scan, No Provider Available [address] [place] [address] [place] [address] <No scans attached> Social History Tobacco Use [...] 10:45 AM EST Office Visit [facility] - Internal Medicine [address] [place] [phone] Ilya Gusman MD [address] [place] [phone] Christophe Dailey MD [address] [place] [phone] 01/18/2026 1:00 PM EST Office Visit [facility] [address] [place] [address] Porsha Marsh, LEARNING AND DEVELOPMENT COORDINATOR [address] [place] [address] 02/22/2026 11:00 AM EDT Office Visit [facility] [address] [place] [address] [address] [place] [phone] Alonso Bae MD [address] [place] [address] 2 [place] [address] 07/17/2026 2:00 PM EDT Office Visit [facility] - Internal Medicine [address] [place] [phone] Ilya Gusman MD [address] [place] [phone] 07/19/2026 11:40 AM EDT Office Visit [facility] [address] [place] [address] Yesi Perez MD [address] [place] [address] documented as of this encounter Visit Diagnoses [...] documented as of this encounter Care Teams Consulting Software Engineer Relationship Specialty Start Date End Date Ilya Gusman MD [address] [place] [address] [phone] PCP - General 05/14/17 [facility] 09/01/25 documented as of this encounter
--- OUTSIDE RECORDS SUMMARY | 2025-09-23 20:57 | XMS_ITS | Encounter Summary ---
Author Organization [facility] Address [address] [place] [address] Phone Care Team Providers Care Director Toxicology Name Role Phone Ilya Gusman MD Primary Care Provider [phone] Encounter Details Date Type Department Care Team (Late Contact Info) Description 01/06/2024 Scanned Document [facility] - Health Information Department [address] [place] [phone] Scan, No Provider Available [address] [place] [address] [place] [address] <No scans attached> Social History Tobacco Use [...] Department Care Team ([facility] Contact Info) Description 10/06/2025 10:45 AM EST Office Visit [facility] - Internal Medicine [address] [place] [phone] Ilya Gusman MD [address] [place] [phone] Christophe Dailey MD [address] [place] [address] [phone] 01/18/2026 1:00 PM EST Office Visit [facility] [address] [place] [address] Porsha Marsh, PYRIDINE OPERATOR [address] [place] [address] 02/22/2026 11:00 AM EDT Office Visit [facility] [address] [place] [address] [address] [place] [phone] Alonso Bae MD [address] [place] [address] [address] [place] [address] 07/17/2026 2:00 PM EDT Office Visit [facility] - Internal Medicine [address] [place] [phone] Ilya Gusman MD [address] [place] [phone] 07/19/2026 11:40 AM EDT Office Visit [facility] [address] [place] [address] Yesi Perez MD [address] [place] [address] documented as of this encounter Visit Diagnoses Not on filedocumented in this encounter Additional Health Concerns Infection Onset Date Last Indicated Resolved Time C difficile Rule-Out 11/01/2024 11/02/2024 024 9:43 AM EST Assessment Noted Time PHQ-9 Depression Total Score: 9 06/05/20 20 9:52 AM EDT documented as of this encounter Care Teams Director Toxicology Relationship Specialty Start Date End Date Ilya Gusman MD [address] [place] [address] [phone] PCP - General 05/14/17 [facility] 09/01/25 documented as of this encounter
--- OUTSIDE RECORDS SUMMARY | 2025-09-23 20:57 | XMS_ITS | Encounter Summary ---
Author Organization [facility] Address [address] [place] [address] Phone Care Team Providers Care Rfid Analyst Name Role Phone Ilya Gusman MD Primary Care Provider [phone] Encounter Details Date Type Department Care Team (Late Contact Info) Description 03/06/2024 Scanned Document [facility] - Health Information Department [address] [place] [address] Scan, No Provider Available [address] [place] [address] [place] [address] <No scans attached> Social History Tobacco Use [...] Visit [facility] - Internal Medicine [address] [place] [phone] Ilya Gusman MD [address] [place] [phone] Christophe Dailey MD [address] [place] [address] [phone] 01/18/2026 1:00 PM EST Office Visit [facility] [address] [place] [address] Porsha Marsh, MODELING INSTRUCTOR [address] [place] [address] 02/22/2026 11:00 AM EDT Office Visit [facility] [address] [place] [address] [address] [place] [phone] Alonso Bae MD [address] [place] [address] [address] [place] [address] 07/17/2026 2:00 PM EDT Office Visit [facility] - Internal Medicine [address] [place] [phone] Ilya Gusman MD [address] [place] [phone] 07/19/2026 11:40 AM EDT Office Visit [facility] [address] [place] [address] Yesi Perez MD [address] [place] [address] documented as of this encounter Visit Diagnoses Not on filedocumented in this encounter Additional Health Concerns Infection Onset Date Last Indicated Resolved Time C difficile Rule-Out 11/01/2024 11/02/2024 024 9:43 AM EST Assessment Noted Time PHQ-9 Depression Total Score: 9 06/05/20 20 9:52 AM EDT documented as of this encounter Care Teams Rfid Analyst Relationship Specialty Start Date End Date Ilya Gusman MD [address] [place] [address] [phone] PCP - General 05/14/17 [facility] 09/01/25 documented as of this encounter
--- OUTSIDE RECORDS SUMMARY | 2025-09-23 20:57 | XMS_ITS | Encounter Summary ---
Author Organization [facility] Address [address] [place] [address] Phone Care Team Providers Care Dragline Engineer Name Role Phone Ilya Gusman MD Primary Care Provider [phone] Encounter Details Date Type Department Care Team (Late st Contact Info) Description 12/14/2021 Scanned Document [facility] - Health Information Department [address] [place], [place] [phone] Scan, No Provider Available [address] [facility] [place] [address] <No scans attached> Social History Tobacco Use [...] Office Visit [facility] - Internal Medicine [address] [place] [phone] Ilya Gusman MD [address] [place] [phone] Christophe Dailey MD [address] [place] [phone] 01/18/2026 1:00 PM EST Office Visit [facility] [address] [place] [address] Porsha Marsh, STONE SETTER APPRENTICE [address] [place] [address] 02/22/2026 11:00 AM EDT Office Visit [facility] [address] [place] [address] [address] [place] [phone] Alonso Bae MD [address] [place] [address] [address] [place] [address] 07/17/2026 2:00 PM EDT Office Visit [facility] - Internal Medicine [address] [place] [phone] Ilya Gusman MD [address] [place] [phone] 07/19/2026 11:40 AM EDT Office Visit [facility] [address] [place] [address] Yesi Perez MD [address] [place] [address] documented as of this encounter Visit Diagnoses [...] documented as of this encounter Care Teams Dragline Engineer Relationship Specialty Start Date End Date Ilya Gusman MD [address] [place] [phone] PCP - General 05/14/17 [facility] 09/01/25 documented as of this encounter
--- OUTSIDE RECORDS SUMMARY | 2025-09-23 20:57 | XMS_ITS | Encounter Summary ---
Author Organization [facility] Address [address] [place] [address] Phone Care Team Providers Care Skirt Clipper Name Role Phone Ilya Gusman MD Primary Care Provider [phone] Encounter Details Date Type Department Care Team ([facility] Contact Info) Description 02/06/2024 Orders Only [facility] - Health Information Department [address] [place] [address] Scan, No Provider Available [address] [place] [address] Dr. Eleazar [place] [phone] Social History Tobacco Use Types Packs/Day Years [...] Upcoming Encounters Date Type Department Care Team ([facility] Contact Info) Description 10/06/2025 10:45 AM EST Office Visit [facility] - Internal Medicine [address] [place] [phone] Ilya Gusman MD [address] [place] [phone] Christophe Dailey MD [address] [place] [phone] 01/18/2026 1:00 PM EST Office Visit [facility] [address] [place] [address] Porsha Marsh, MARINE SAFETY OFFICER [address] [place] [address] 02/22/2026 11:00 AM EDT Office Visit [facility] [address] [place] [address] [address] [place] [phone] Alonso Bae MD [address] [place] [address] [address] [place] [address] 07/17/2026 2:00 PM EDT Office Visit [facility] - Internal Medicine [address] [place] [phone] Ilya Gusman MD [address] [place] [phone] 07/19/2026 11:40 AM EDT Office Visit [facility] [address] [place] [address] Yesi Perez MD [address] [place] [address] documented as of this encounter Procedures Procedure Name Priority Date/Time Associated Diagnosis Comments HIST FINAL PATHOLOGY REPORT Routine 01/30/2024 documented in this encounter Results * Final Pathology Report (01/30/2024) Blood Venous blood / Unknown us No Provider Available Scan LAB BLOOD ORDERABLES Final Result documented in this encounter Visit Diagnoses Not on filedocumented in this encounter Additional Health Concerns Infection Onset Date Last Indicated Resolved Time C difficile Rule-Out 11/01/2024 11/02/2024 024 9:43 AM EST Assessment Noted Time PHQ-9 Depression Total Score: 06/05/20 20 9:52 AM EDT documented as of this encounter Care Teams Skirt Clipper Relationship Specialty Start Date End Date Ilya Gusman MD [address] [place] [phone] PCP - General 05/14/17 [facility] 09/01/25 documented as of this encounter
--- OUTSIDE RECORDS SUMMARY | 2025-09-23 20:57 | XMS_ITS | Encounter Summary ---
Author Organization [facility] Address [address] [place] [address] Phone Care Team Providers Care Rn Imcu Name Role Phone Ilya Gusman MD Primary Care Provider [phone] Encounter Details Date Type Department Care Team ([facility] Contact Info) Description 01/08/2024 Orders Only [facility] - Health Information Department [address] [place] [address] Scan, No Provider Available [address] [place] [address] Dr[place] Eleazar [place] [phone] Social History Tobacco Use Types Packs/Day Years [...] Upcoming Encounters Date Type Department Care Team ([facility] Contact Info) Description 10/06/2025 10:45 AM EST Office Visit [facility] - Internal Medicine [address] [place] [phone] Ilya Gusman MD [address] [place] [phone] Christophe Dailey MD [address] [place] [phone] 01/18/2026 1:00 PM EST Office Visit [address] [address] Porsha Marsh, TEACHER DANCING [address] [place] [address] 02/22/2026 11:00 AM EDT Office Visit [facility] [address] [place] [address] [address] [place] [phone] Alonso Bae MD [address] [place] [address] [address] [place] [address] 07/17/2026 2:00 PM EDT Office Visit [facility] - Internal Medicine [address] [place] [phone] Ilya Gusman MD [address] [place] [phone] 07/19/2026 11:40 AM EDT Office Visit [address] [address] Yesi Perez MD [address] [place] [address] documented as of this encounter Procedures Procedure Name Priority Date/Time Associated Diagnosis Comments MRI BRAIN WO CONTRAST Routine 01/07/2024 EEG Routine 01/06/2024 documented in this encounter Results * MRI brain without contrast (01/07/2024) Anatomical Region Laterality Modality Head and Neck Magnetic Resonan ce us No Provider Available Scan IMG MRI PROCEDURES Fi nal Result * EEG (01/06/2024) us No Provider Available Scan NEUROLOGY ORDERABLES Final Result documented in this encounter Visit Diagnoses Not on filedocumented in this encounter Additional Health Concerns Infection Onset Date Last Indicated Resolved Time C difficile Rule-Out 11/01/2024 11/02/2024 024 9:43 AM EST Assessment Noted Time PHQ-9 Depression Total Score: 9 06/05/20 20 9:52 AM EDT documented as of this encounter Care Teams Rn Imcu Relationship Specialty Start Date End Date Ilya Gusman MD [address] [place] [phone] PCP - General 05/14/17 [facility] 09/01/25 documented as of this encounter
--- OUTSIDE RECORDS SUMMARY | 2025-09-23 20:57 | XMS_ITS | Encounter Summary ---
Author Organization [facility] Address [address] [place] [address] Phone Care Team Providers Care Dental Laboratory Assistant Name Role Phone Ilya Gusman MD Primary Care Provider [phone] Encounter Details Date Type Department Care Team ([facility] Contact Info) Description 03/24/2024 Orders Only [facility] - Health Information Department [address] [place] [address] Scan, No Provider Available [address] [place] [address] Dr. Eleazar [place] [phone] Social History Tobacco Use Types Packs/Day Years [...] Visit [facility] - Internal Medicine [address] [place] [phone] Ilya Gusman MD [address] [place] [phone] Christophe Dailey MD [address] [place] [phone] 01/18/2026 1:00 PM EST Office Visit [facility] [address] [place] [address] Porsha Marsh, LABORATORY ENGINEER [address] [place] [address] 02/22/2026 11:00 AM EDT Office Visit [facility] [address] [place] [address] [address] [place] [phone] Alonso Bae MD [address] [place] [address] [address] [place] [address] 07/17/2026 2:00 PM EDT Office Visit [facility] - Internal Medicine [address] [place] [phone] Ilya Gusman MD [address] [place] [phone] 07/19/2026 11:40 AM EDT Office Visit [address] [address] Yesi Perez MD [address] [place] [address] documented as of this encounter Procedures Procedure Name Priority Date/Time Associated Diagnosis Comments XR CHEST 1 VW Routine 03/23/2024 4:41 PM EDT documented in this encounter Results * X-ray chest 1 view (03/23/2024 4:41 PM EDT) Anatomical Region Laterality Modality Body [...] documented as of this encounter Care Teams Dental Laboratory Assistant Relationship Specialty Start Date End Date Ilya Gusman MD [address] [place] [phone] PCP - General 05/14/17 [facility] 09/01/25 documented as of this encounter
--- OUTSIDE RECORDS SUMMARY | 2025-09-23 20:57 | XMS_ITS | Encounter Summary ---
Author Organization [facility] Address [address] [place] [address] Phone Care Team Providers Care Inspector And Adjuster Golf Club Head Name Role Phone Ilya Gusman MD Primary Care Provider [phone] Encounter Details Date Type Department Care Team (Late st Contact Info) Description 11/30/2017 Orders Only [address] [phone] Non-Provider, Historical, RN Social History [...] Description 10/06/2025 10:45 AM EST Office Visit [facility] - Internal Medicine [address] [place] [phone] Ilya Gusman MD [address] [place] [phone] Christophe Dailey MD [address] [place] [phone] 01/18/2026 1:00 PM EST Office Visit [facility] [address] [place] [address] 1 [place] [address] Porsha Marsh, SPREADER BOX OPERATOR [address] [place] [address] 02/22/2026 11:00 AM EDT Office Visit [facility] [address] [place] [address] [address] [place] [phone] Alonso Bae MD [address] [place] [address] [address] [place] [address] 07/17/2026 2:00 PM EDT Office Visit [facility] - Internal Medicine [address] [place] [phone] Ilya Gusman MD [address] [place] [phone] 07/19/2026 11:40 AM EDT Office Visit [facility] [address] [place] [address] Yesi Perez MD [address] [place] [address] documented as of this encounter Procedures Procedure Name Priority Date/Time Associated Diagnosis Comments COLONOSCOPY Routine 01/31/2012 documented in this encounter Results * Colonoscopy (01/31/2012) us Historical Non-Provider RN HEALTH MAINTENANCE Fi nal Result documented in [...] documented as of this encounter Care Teams Inspector And Adjuster Golf Club Head Relationship Specialty Start Date End Date Ilya Gusman MD [address] [place] [phone] PCP - General 05/14/17 [facility] 09/01/25 documented as of this encounter
--- OUTSIDE RECORDS SUMMARY | 2025-09-23 20:57 | XMS_ITS | Encounter Summary ---
Author Organization [facility] Address [address] [place] [address] Phone Care Team Providers Care Toy Painter Name Role Phone Ilya Gusman MD Primary Care Provider [phone] Encounter Details Date Type Department Care Team ([facility] Contact Info) Description 01/07/2024 Orders Only [facility] - Health Information Department [address] [place] [address] Scan, No Provider Available [address] [place] [address] Dr. Eleazar [place] [phone] Social History Tobacco Use Types Packs/Day Years [...] Upcoming Encounters Date Type Department Care Team ([facility] Contact Info) Description 10/06/2025 10:45 AM EST Office Visit [facility] - Internal Medicine [address] [place] [phone] Ilya Gusman MD [address] [place] [phone] Christophe Dialey MD [address] [place] [phone] 01/18/2026 1:00 PM EST Office Visit [facility] [address] [place] [address] Porsha Marsh, PIPELINE OPERATOR [address] [place] [address] [phone] 02/22/2026 11:00 AM EDT Office Visit [facility] [address] [place] [address] [address] [place] [phone] Alonso Bae MD [address] [place] [address] [address] [place] [address] 07/17/2026 2:00 PM EDT Office Visit [facility] - Internal Medicine [address] [place] [phone] Ilya Gusman MD [address] [place] [phone] 07/19/2026 11:40 AM EDT Office Visit [facility] [address] [place] [address] Yesi Perez MD [address] [place] [address] documented as of this encounter Procedures Procedure Name Priority Date/Time Associated Diagnosis Comments COVID-19 (EXTERNAL) Routine 01/06/2024 MR [facility] Routine 01/06/2024 XR CHEST 1 VW Routine 01/06/2024 CT HEAD WO CONTRAST Routine 01/06/2024 documented in this encounter Results * COVID-19 (External) (01/06/2024) External COVID-19 Negative Not Detected, Negative, Non-reacti ve [facility] Nasopharyngeal (Nasopharynx) us Historical Provider MD LAB MICROBIOLOGY - GENERA L ORDERABLES Final Result [facility] [address] [place] [address], [place] [phone] * MR Kirk briseno (01/06/2024) us No Provider Available Scan LAB BLOOD ORDERABLES Final Result * CT head without contrast (01/06/2024) Anatomical Region Laterality Modality Head and Neck Computed Tomogra phy us No Provider Available Scan IMG CT PROCEDURES Fin al Result * X-ray chest 1 view (01/06/2024) Anatomical Region Laterality Modality Body Radiographic Carmelina [...] documented as of this encounter Care Teams Toy Painter Relationship Specialty Start Date End Date Ilya Gusman MD [address] [place] [phone] PCP - General 05/14/17 [facility] 09/01/25 documented as of this encounter
--- OUTSIDE RECORDS SUMMARY | 2025-09-23 20:57 | XMS_ITS | Encounter Summary ---
Author Organization [facility] Address [address] [place] [address] Phone Care Team Providers Care Welfare Case Worker Name Role Phone Ilya Gusman MD Primary Care Provider [phone] Encounter Details Date Type Department Care Team (Late st Contact Info) Description 08/01/2021 Scanned Document [facility] - Health Information Department [address] [place], [place] [phone] Scan, No Provider Available [address] [facility] [place] [address] <No scans attached> Social History Tobacco Use [...] Visit [facility] - Internal Medicine [address] [place] [phone] Ilya Gusman MD [address] [place] [phone] Christophe Dailey MD [address] [place] [phone] 01/18/2026 1:00 PM EST Office Visit [facility] [address] [place] [address] Porsha Marsh, FIRER RETORT [address] [place] [address] 02/22/2026 11:00 AM EDT Office Visit [facility] [address] [place] [address] [address] [place] [phone] Alonso Bae MD [address] [place] [address] [address] [place] [address] 07/17/2026 2:00 PM EDT Office Visit [facility] - Internal Medicine [address] [place] [phone] Ilya Gusman MD [address] [place] [phone] 07/19/2026 11:40 AM EDT Office Visit [facility] [address] [place] [address] Yesi Perez MD [address] [place] [address] documented as of this encounter Visit Diagnoses [...] documented as of this encounter Care Teams Welfare Case Worker Relationship Specialty Start Date End Date Ilya Gusman MD [address] [place] [phone] PCP - General 05/14/17 [facility] 09/01/25 documented as of this encounter
--- OUTSIDE RECORDS SUMMARY | 2025-09-23 20:57 | XMS_ITS | Encounter Summary ---
Author Organization [facility] ystem Address [address] [place] [address] Phone Care Team Providers Care Major League Baseball Player Name Role Phone Ilya Gusman MD Primary Care Provider [phone] Encounter Details Date Type Department Care Team (Late Contact Info) Description 03/23/2024 Scanned Document [facility] - Health Information Department [address] [place] [phone] Scan, No Provider Available [address] [place] [address] [place] [address] <No scans attached> Social History Tobacco Use [...] Encounters Date Type Department Care Team ([facility] Contact Info) Description 10/06/2025 10:45 AM EST Office Visit [facility] - Internal Medicine [address] [place] [phone] Ilya Gusman MD [address] [place] [phone] Christophe Dailey MD [address] [place] [phone] 01/18/2026 1:00 PM EST Office Visit [facility] [address] [place] [address] Porsha Marsh, LAPEL PADDER [address] [place] [address] 02/22/2026 11:00 AM EDT Office Visit [facility] [address] [place] [address] [address] [place] [phone] Alonso Bae MD [address] [place] [address] [address] [place] [address] 07/17/2026 2:00 PM EDT Office Visit [facility] - Internal Medicine [address] [place] [phone] Ilya Gusman MD [address] [place] [phone] 07/19/2026 11:40 AM EDT Office Visit [facility] [address] [place] [address] Yesi Perez MD [address] [place] [phone] documented as of this encounter Visit Diagnoses Not on filedocumented in this encounter Additional Health Concerns Infection Onset Date Last Indicated Resolved Time C difficile Rule-Out 11/01/2024 11/02/2024 024 9:43 AM EST Assessment Noted Time PHQ-9 Depression Total Score: 9 06/05/20 20 9:52 AM EDT documented as of this encounter Care Teams Major League Baseball Player Relationship Specialty Start Date End Date Ilya Gusman MD [address] [place] [address] [phone] PCP - General 05/14/17 [facility] 09/01/25 documented as of this encounter
--- OUTSIDE RECORDS SUMMARY | 2025-09-23 20:57 | XMS_ITS | Encounter Summary ---
[facility] Organization [facility] Address [address] [place] [address] Phone Care Team Providers Care Hand Candy Molder Name Role Phone Ilya Gusman MD Primary Care Provider [phone] Encounter Details Date Type Department Care Team (Late Contact Info) Description 01/13/2018 Scanned Document [facility] - Health Information Department [address] [place] [address] Scan, No Provider Available [address] [place] [address] [place] [address] <No scans attached> Social History Tobacco Use [...] [facility] [address] [place] [phone] Ilya Gusman MD [address] [place] [phone] Christophe Dailey MD [address] [place] [phone] 01/18/2026 1:00 PM EST Office Visit [facility] [address] [place] [address] Porsha Marsh, PLANT RELIABILITY ENGINEER [address] [place] [address] 02/22/2026 11:00 AM EDT Office Visit [facility] [address] [place] [address] [address] [place] [phone] Alonso Bae MD [address] [place] [address] 2 [place] [address] 07/17/2026 2:00 PM EDT Office Visit [facility] - Internal Medicine [address] [place] [phone] Ilya Gusman MD [address] [place] [phone] 07/19/2026 11:40 AM EDT Office Visit [facility] [address] [place] [address] Yesi Perez MD [address] [place] [address] documented as of this encounter Visit Diagnoses [...] documented as of this encounter Care Teams Hand Candy Molder Relationship Specialty Start Date End Date Ilya Gusman MD [address] [place] [address] [phone] PCP - General 05/14/17 [facility] 09/01/25 documented as of this encounter
--- OUTSIDE RECORDS SUMMARY | 2025-09-23 20:57 | XMS_ITS | Encounter Summary ---
Author Organization [facility] ystem Address [address] [place] [address] Phone Care Team Providers Care Cover Cutter Machine Name Role Phone Ilya Gusman MD Primary Care Provider [phone] Encounter Details Date Type Department Care Team (Late st Contact Info) Description 08/08/2021 Scanned Document [facility] - Health Information Department [address] [place], [place] [phone] Scan, No Provider Available [address] [facility] [place] [address] <No scans attached> Social History Tobacco Use [...] 10:45 AM EST Office Visit [facility] - Internal Medicine [address] [place] [phone] Ilya Gusman MD [address] [place] [phone] Christophe Dailey MD [address] [place] [phone] 01/18/2026 1:00 PM EST Office Visit [facility] [address] [place] [phone] Porsha Marsh, PRESCHOOL PRINCIPAL 70 [place] [address] 02/22/2026 11:00 AM EDT Office Visit [facility] [address] [place] [address] [address] [place] [phone] Alonso Bae MD [address] [place] [address] [address] [place] [address] 07/17/2026 2:00 PM EDT Office Visit [facility] - Internal Medicine [address] [place] [phone] Ilya Gusman MD [address] [place] [phone] 07/19/2026 11:40 AM EDT Office Visit [facility] [address] [place] [address] Yesi Perez MD [address] [place] [address] documented as of this encounter Visit Diagnoses [...] documented as of this encounter Care Teams Cover Cutter Machine Relationship Specialty Start Date End Date Ilya Gusman MD [address] [place] [address] [phone] PCP - General 05/14/17 [facility] 09/01/25 documented as of this encounter
--- OUTSIDE RECORDS SUMMARY | 2025-09-23 20:57 | XMS_ITS | Encounter Summary ---
Author Organization [facility] ystem Address [address] [place] [address] Phone Care Team Providers Care Medium Cycle Salesperson Name Role Phone Ilya Gusman MD Primary Care Provider Encounter Details Date Type Department Care Team (Late st Contact Info) Description 11/06/2021 Scanned Document [facility] - Health Information Department [address] [place], [place] [phone] Scan, No Provider Available [address] [place] [address] <No scans attached> Social History Tobacco Use [...] have Coronavirus / COVID-19? No / Unsure 10/10/2021 11:23 AM EST documented as of this encounter Plan of Treatment Upcoming Encounters Date Type Department Care Team (Late st Contact Info) Description 10/06/2025 10:45 AM EST Office Visit [facility] - Internal Medicine [address] [place] [phone] Ilya Gusman MD [address] [place] [phone] Christophe Dailey MD [address] [place] [phone] 01/18/2026 1:00 PM EST Office Visit [facility] [address] [place] [address] Porsha Marsh, FAMILY COURT COUNSELLOR [address] [place] [address] 02/22/2026 11:00 AM EDT Office Visit [facility] [address] [place] [address] [address] [place] [phone] Alonso Bae MD [address] [place] [address] [address] [place] [address] 07/17/2026 2:00 PM EDT Office Visit [facility] - Internal Medicine [address] [place] [phone] Ilya Gusman MD [address] [place] [phone] 07/19/2026 11:40 AM EDT Office Visit [facility] [address] [place] [address] Yesi Perez MD [address] [place] [address] documented as of this encounter Visit Diagnoses [...] documented as of this encounter Care Teams Medium Cycle Salesperson Relationship Specialty Start Date End Date Ilya Gusman MD [address] [place] [phone] PCP - General 05/14/17 [facility] 09/01/25 documented as of this encounter
--- OUTSIDE RECORDS SUMMARY | 2025-09-23 20:57 | XMS_ITS | Encounter Summary ---
Author Organization [facility] Address [address] [place], [place] [phone] Care Team Providers Care Pug Machine Operator Name Role Phone Ilya Gusman MD Primary Care Provider [phone] Encounter Details Date Type Department Care Team (Latest Contact Info) Description 09/22/2025 Travel Social History Tobacco Use Types Packs/Day Years [...] and Family Not on file 09/23/2025 Attends [employer] Not on file 09/23 Active Member [...] any time in the past 12 m [facility], were you homeless or living in a jail (including now)? No 09/23/2025 [facility] Utilities Answer Date Recorded In the past 12 months has th e [employer], gas, oil, or water company threatened to shut off services in your [...] Entry Date Author No 09/22/2025 10:05 AM EDT Amita Marie documented in this encounter Plan of Treatment Not on file documented as of this encounter Visit Diagnoses Not on filedocumented in this encounter Additional Health Concerns Infection Onset Date Last Indicated Resolved Time Rule-Out Respiratory Virus 09/22/2025 09/22/2025 1 11:36 AM EDT documented as of this encounter Care Teams Pug Machine Operator Relationship Specialty Start Date End Date Ilya Gusman MD [address] [place] [address] PCP - General 02/12/24 documented as of this encounter
--- OUTSIDE RECORDS SUMMARY | 2025-09-23 20:57 | XMS_ITS | Encounter Summary ---
Author Organization [facility] ystem Address [address] [place] [address] Phone Care Team Providers Care Hydroelectric Operator Name Role Phone Ilya Gusman MD Primary Care Provider Encounter Details Date Type Department Care Team (Late st Contact Info) Description 07/25/2021 Scanned Document [facility] - Health Information Department [address] [place], [place] [phone] Scan, No Provider Available [address] [facility] [place] [address] <No scans attached> Social History Tobacco Use [...] Visit [facility] - Internal Medicine [address] [place] [phone] Ilya Gusman MD [address] [place] [phone] Christophe Dailey MD [address] [place] [phone] 01/18/2026 1:00 PM EST Office Visit [facility] [address] [place] [address] Porsha Marsh, CAREER AND GUIDANCE COUNSELOR [address] [place] [address] 02/22/2026 11:00 AM EDT Office Visit [facility] [address] [place] [address] [address] [place] [phone] Alonso Bae MD [address] [place] [address] [address] [place] [address] 07/17/2026 2:00 PM EDT Office Visit [facility] - Internal Medicine [address] [place] [phone] Ilya Gusman MD [address] [place] [phone] 07/19/2026 11:40 AM EDT Office Visit [facility] [address] [place] [address] Yesi Perez MD [address] [place] [address] documented as of this encounter Visit Diagnoses [...] documented as of this encounter Care Teams Hydroelectric Operator Relationship Specialty Start Date End Date Ilya Gusman MD [address] [place] [phone] PCP - General 05/14/17 [facility] 09/01/25 documented as of this encounter
--- OUTSIDE RECORDS SUMMARY | 2025-09-23 20:57 | XMS_ITS | Encounter Summary ---
Author Organization [facility] Address [address] [place] [address] Phone Care Team Providers Care Wastewater Manager Name Role Phone Ilya Gusman MD Primary Care Provider [phone] Encounter Details Date Type Department Care Team ([facility] Contact Info) Description 08/15/2021 Procedure [facility] [address] [place] [phone] Social History Tobacco Use Types Packs/Day Years [...] Visit [facility] - Internal Medicine [address] [place] [phone] Ilya Gusman MD [address] [place] [address] [phone] Christophe Dailey MD [address] [place] [phone] 01/18/2026 1:00 PM EST Office Visit [facility] [address] [place] [address] Porsha Marsh CNP 70 [place] [address] 02/22/2026 11:00 AM EDT Office Visit [facility] [address] [place] [address] [address] [place] [phone] Alonso Bae MD [address] [place] [address] [address] [place] [address] 07/17/2026 2:00 PM EDT Office Visit [facility] - Internal Medicine [address] [place] [phone] Ilya Gusman MD [address] [place] [phone] 07/19/2026 11:40 AM EDT Office Visit [facility] [address] [place] [address] Yesi Perez MD 70 [place] [address] documented as of this encounter Visit Diagnoses [...] documented as of this encounter Care Teams Wastewater Manager Relationship Specialty Start Date End Date Ilya Gusman MD [address] [place] [phone] PCP - General 05/14/17 [facility] 09/01/25 documented as of this encounter
--- OUTSIDE RECORDS SUMMARY | 2025-09-23 20:57 | XMS_ITS | Encounter Summary ---
Author Organization [facility] Address [address] [place] [address] Care Team Providers Care Cinder Crew Worker Name Role Phone Ilya Gusman MD Primary Care Provider [phone] Encounter Details Date Type Department Care Team ([facility] st Contact Info) Description 07/22/2025 Results Follow-Up [facility] [address] [place] [address] [address] [place] [address] Verito Villareal MD [address] [place] [address] 201 [place] [address] Surgical Pathology Tissue Exam Social History Tobacco Use Types Packs/Day Years Used Date Smoking Tobacco: Never Smokeless Tobacco: Never Alcohol Use Standard Drinks/Week Comments Not Currently 0 (1 standard drink = 0.6 oz pur e alcohol) Humiliation, Afraid, Rape, and Kick questionnair e Answer Date Recorded Within the last year, have y ou been afraid of your partner or ex-partner? No 09/22/2025 Emotionally Abused Not on file 09/22/2025 Physically Abused Not on file 09/22/2025 Sexually Abused Not on file 09/22/2025 AUDIT-C Answer Date Recorded Q1: How often do you have a drink containing alcohol? Patient unable to answer 05/07/2025 Q2: How many drinks containi ng alcohol do you have on a typical day when you are drinking? Patient unable to answer Q3: How often do you have si x or more drinks on one occasion? Patient unable to answer 05/07/2025 Overall Financial Resource Strain (CARDIA) Answe r Date Recorded How hard is it for you to pa y for the very basics like food, housing, medical care, and heating? Not very hard 09/22/2025 Hunger Vital Sign Answer Date Recorded Within the past 12 months, y ou worried that your food would run out before you got the money to buy more. Never true 09/22/20 25 Ran Out of Food in the Last Year Not on file 09/22/2025 PRAPARE - Transportation Answer Date Re corded In the past 12 months, has l ack of transportation kept you from medical appointments or from getting medications? No 08/26 In the past 12 months, has l ack of transportation kept you from meetings, work, or from getting things needed for daily living? No 09/22/2025 Housing Stability Vital Sign Answer Narinder e Recorded In the last 12 months, was t here a time when you were not able to pay the mortgage or rent on time? No 09/22/2025 Number of Times Moved in the Last Year Not on fi le 09/22/2025 At any time in the past [address] [facility], were you homeless or living in a longterm (including now)? No 09/22/2025 [facility] Utilities Answer Date Recorded In the past 12 months has th e [employer], gas, oil, or water [employer] threatened to shut off services in your home? No 09/22/2025 Food Insecurity Answer Date Recorded Within the past 12 months, y ou worried that your food would run out before you got the money to buy more. Never true 09/22/20 25 Ran Out of Food in the Last Year Not on file 09/22/2025 Intimate Partner Violence Answer Date R ecorded Within the last year, have y ou been humiliated or emotionally abused in other ways by your partner or ex-partner? Patient unable to answer 09/22/2025 Within the last year, have y ou been afraid of your partner or ex-partner? No 09/22/2025 Within the last year, have y ou been kicked, hit, slapped, or otherwise physically hurt by your partner or ex-partner? Patient unable to answer 09/22/2025 Within the last year, have y ou been raped or forced to have any kind of sexual activity by your partner or ex-partner? Patient unable to answer 09/22/2025 Housing Stability Answer Date Recorded Unstable Housing in the Last Year Not on file 09/22/2025 In the last 12 months, was t here a time when you were not able to pay the mortgage or rent on time? No 09/22/2025 [address] Lived in the Last Year Not on f ile 09/22/2025 AUDIT C Answer Date Recorded How often [...] occasion, in the past year? 0 09/22/2025 Sex and Gender Information Value Date Recorded Sex Assigned at Male 09/21/2024 2:15 PM EDT Legal Sex Male 10:58 AM EST Gender Identity Male 12/22/2023 8:44 PM EST Sexual Orientation Not on file documented as of this encounter Functional Status * Are you deaf or do you have serious difficulty hearing? Answer Date of Assessment Author No 07/07/2025 4:46 PM EDT Susan Greene RN * Are you blind or do you have serious difficulty seeing, even when wearing glasses? Answer Date of Assessment Author No 07/07/2025 4:46 PM EDT Susan Greene, DOMINGA * Do you have serious difficulty walking or climbing stairs? Answer Date of Assessment Author No 07/07/2025 4:46 PM EDT Susan Greene RN * Do you have difficulty dressing or bathing? Answer Date of Assessment Author No 07/07/2025 4:46 PM EDT Susan Greene RN * Because of a physical, mental, or emotional condition, do you have difficulty doing errands alone such as visiting the doctor? Answer Date of Assessment Author No 07/07/2025 4:46 PM EDT Susan Greene RN documented as of this encounter Mental Status * Because of a physical, mental, or emotional condition, do you have serious difficulty concentrating, remembering, or making decisions? Answer Entry Date Author No 07/07/2025 4:46 PM EDT Susan Greene RN documented in this encounter Plan of Treatment Not on file documented as of this encounter Visit Diagnoses Not on filedocumented in this encounter Care Teams Cinder Crew Worker Relationship Specialty Start Date End Date Ilya Gusman MD [address] [place] [address] PCP - General 02/12/24 documented as of this encounter
--- OUTSIDE RECORDS SUMMARY | 2025-09-23 20:57 | XMS_ITS | Encounter Summary ---
Author Organization [facility] ystem Address [address] [place] [address] Phone Care Team Providers Care Scraper Meat Name Role Phone Ilya Gusman MD Primary Care Provider [phone] Encounter Details Date Type Department Care Team (Late Contact Info) Description 03/10/2024 Scanned Document [facility] - Health Information Department [address] [place] [phone] Scan, No Provider Available [address] [place] [address] [place] [address] <No scans attached> Social History Tobacco Use [...] [facility] - Internal Medicine [address] [place] [phone] Ilya Gusman MD [address] [place] [phone] Christophe Dailey MD [address] [place] [address] [phone] 01/18/2026 1:00 PM EST Office Visit [facility] [address] [place] [address] Porsha Marsh, LDR RN [address] [place] [address] 02/22/2026 11:00 AM EDT Office Visit [facility] [address] [place] [address] [address] [place] [phone] Alonso Bae MD [address] [place] [address] [address] [place] [address] 07/17/2026 2:00 PM EDT Office Visit [facility] - Internal Medicine [address] [place] [phone] Ilya Gusman MD [address] [place] [phone] 07/19/2026 11:40 AM EDT Office Visit [facility] [address] [place] [address] Yesi Perez MD [address] [place] [address] documented as of this encounter Visit Diagnoses Not on filedocumented in this encounter Additional Health Concerns Infection Onset Date Last Indicated Resolved Time C difficile Rule-Out 11/01/2024 11/02/2024 024 9:43 AM EST Assessment Noted Time PHQ-9 Depression Total Score: 9 06/05/20 20 9:52 AM EDT documented as of this encounter Care Teams Scraper Meat Relationship Specialty Start Date End Date Ilya Gusman MD [address] [place] [address] [phone] PCP - General 05/14/17 [facility] 09/01/25 documented as of this encounter
--- OUTSIDE RECORDS SUMMARY | 2025-09-23 20:58 | XMS_ITS | Encounter Summary ---
Author Organization [facility] Address [address] [place] [address] Phone Care Team Providers Care Software Security Consultant Name Role Phone Ilya Gusman MD Primary Care Provider [phone] Reason for Referral * Consultation (1 Month) - Closed Specialty Diagnoses / Procedures Referred By Contac t Referred To Contact Cardiology Diagnoses Chronic atrial fibrillation (CMS/HCC) Cardiomyopathy, unspecified type (CMS/HCC) Primary hypertension Ilya Gusman MD [address] [place] [phone] Phone: tel: fax: Yesi Perez MD [address] [place] [address] Phone: tel: fax: Referral ID Status Reason Start Date Expiration Date V isits Requested Visits Authorized [id number] Closed Specialty Services Required 01/13/2018 01/13/2019 3 3 Encounter Details Date Type Department Care Team ([facility] Contact Info) Description 01/15/2018 Orders Only [address] [phone] Ilya Gusman MD [address] [place] [phone] Chronic atrial fibrillation (CMS/HCC) (Primary Dx); Cardiomyopathy, unspecified type (CMS/HCC); Primary hypertension Social History Tobacco Use Types Packs/Day Years [...] Visit [facility] - Internal Medicine [address] [place] [phone] Ilya Gusman MD [address] [place] [phone] Christophe Dailey MD [address] [place] [phone] 01/18/2026 1:00 PM EST Office Visit [facility] [address] [address] Porsha Marsh, SUPERVISOR PHOTOCOMPOSITION 70 [place] [address] 02/22/2026 11:00 AM EDT Office Visit [facility] [address] [place] [phone] Alonso Bae MD [address] [place] [address] [address] [place] [address] 07/17/2026 2:00 PM EDT Office Visit [facility] - Internal Medicine [address] [place] [phone] Ilya Gusman MD [address] [place] [phone] 07/19/2026 11:40 AM EDT Office Visit [facility] [address] [address] Yesi Perez MD 70 [place] [address] Scheduled Referrals Name Type Priority Associated Diagnoses Orde r Schedule Referral Cardiology-Outgoing -[facility] Outpatient Referral Routine Chronic atrial fibrillation (CMS/HCC) Cardiomyopathy, unspecified type (CMS/HCC) Primary hypertension Ordered: 01/15/2018 documented as of this encounter Visit Diagnoses Diagnosis Chronic atrial fibrillation (CMS/HCC)- Primary Atrial fibrillation Cardiomyopathy, unspecified type (CMS/HCC) Primary hypertension Unspecified essential hypertension documented in this encounter Additional Health Concerns [...] documented as of this encounter Care Teams Software Security Consultant Relationship Specialty Start Date End Date Ilya Gusman MD [address] [place] [address] [phone] PCP - General 05/14/17 [facility] 09/01/25 documented as of this encounter
--- OUTSIDE RECORDS SUMMARY | 2025-09-23 20:58 | XMS_ITS | Encounter Summary ---
Author Organization [facility] ystem Address [address] [place] [address] Phone Care Team Providers Care Ethical Hacker Name Role Phone Ilya Gusman MD Primary Care Provider [phone] Encounter Details Date Type Department Care Team (Late Contact Info) Description 04/23/[address] [facility] - Health Information Department [address] [place] [phone] Scan, No Provider Available [address] [place] [address] [place] [address] <No scans attached> Social History Tobacco Use [...] [facility] - Internal Medicine [address] [place] [phone] Ilya Gusman MD [address] [place] [phone] Christophe Dailey MD [address] [place] [phone] 01/18/2026 1:00 PM EST Office Visit [facility] [address] [place] [address] Porsha Marsh, BUSINESS SUPPORT COORDINATOR [address] [place] [address] 02/22/2026 11:00 AM EDT Office Visit [facility] [address] [place] [address] [address] [place] [phone] Alonso Bae MD [address] [place] [address] [address] [place] [address] 07/17/2026 2:00 PM EDT Office Visit [facility] - Internal Medicine [address] [place] [phone] Ilya Gusman MD [address] [place] [phone] 07/19/2026 11:40 AM EDT Office Visit [facility] [address] [place] [address] Yesi Perez MD [address] [place] [address] documented as of this encounter Visit Diagnoses Not on filedocumented in this encounter Additional Health Concerns Infection Onset Date Last Indicated Resolved Time C difficile Rule-Out 11/01/2024 11/02/2024 024 9:43 AM EST Assessment Noted Time PHQ-9 Depression Total Score: 9 06/05/20 20 9:52 AM EDT documented as of this encounter Care Teams Ethical Hacker Relationship Specialty Start Date End Date Ilya Gusman MD [address] [place] [phone] PCP - General 05/14/17 [facility] 09/01/25 documented as of this encounter
--- OUTSIDE RECORDS SUMMARY | 2025-09-23 20:58 | XMS_ITS | Encounter Summary ---
Author Organization [facility] ystem Address [address] [place] [address] Phone Care Team Providers Care Furniture Painter Name Role Phone Ilya Gusman MD Primary Care Provider Encounter Details Date Type Department Care Team (Late Contact Info) Description 01/13/2024 Procedure Pass [facility] [place] [address] [place] [phone] Social History Tobacco Use Types Packs/Day Years [...] [facility] - Internal Medicine [address] [place] [phone] Ilya Gusman MD [address] [place] [phone] Christophe Dailey MD [address] [place] [phone] 01/18/2026 1:00 PM EST Office Visit [facility] [address] [place] [address] Porsha Marsh, SPECIAL SERVICES DIRECTOR [address] [place] [address] 02/22/2026 11:00 AM EDT Office Visit [facility] [address] [place] [address] [address] [place] [phone] Alonso Bae MD [address] [place] [address] [address] [place] [address] 07/17/2026 2:00 PM EDT Office Visit [facility] - Internal Medicine [address] [place] [phone] Ilya Gusman MD [address] [place] [phone] 07/19/2026 11:40 AM EDT Office Visit [facility] [address] [place] [address] Yesi Perez MD 70 [place] [address] documented as of this encounter Visit Diagnoses Not on filedocumented in this encounter Additional Health Concerns Infection Onset Date Last Indicated Resolved Time C difficile Rule-Out 11/01/2024 11/02/2024 024 9:43 AM EST Assessment Noted Time PHQ-9 Depression Total Score: 9 06/05/20 20 9:52 AM EDT documented as of this encounter Care Teams Furniture Painter Relationship Specialty Start Date End Date Ilya Gusman MD [address] [place] [phone] PCP - General 05/14/17 [facility] 09/01/25 documented as of this encounter
--- OUTSIDE RECORDS SUMMARY | 2025-09-23 20:58 | XMS_ITS | Encounter Summary ---
Author Organization [facility] ystem Address [address] [place] [address] Phone Care Team Providers Care Teacher Kindergarten Name Role Phone Ilya Gusman MD Primary Care Provider [phone] Encounter Details Date Type Department Care Team (Late st Contact Info) Description 05/23/2021 Scanned Document [facility] - Health Information Department [address] [place], [place] [phone] Scan, No Provider Available [address] [facility] [place] [address] <No scans attached> Social History Tobacco Use [...] 10:45 AM EST Office Visit [facility] - Internal Medicine [address] [place] [phone] Ilya Gusman MD [address] [place] [phone] Christophe Dailey MD [address] [place] [phone] 01/18/2026 1:00 PM EST Office Visit [facility] [address] [place] [address] Porsha Marsh, FIELD TEST ENGINEER [address] [place] [address] 02/22/2026 11:00 AM EDT Office Visit [facility] [address] [place] [address] [address] [place] [phone] Alonso Bae MD [address] [place] [address] [address] [place] [address] 07/17/2026 2:00 PM EDT Office Visit [facility] - Internal Medicine [address] [place] [phone] Ilya Gusman MD [address] [place] [phone] 07/19/2026 11:40 AM EDT Office Visit [facility] [address] [place] [phone] Yesi Perez MD [address] [place] [address] documented as of this encounter Visit Diagnoses [...] documented as of this encounter Care Teams Teacher Kindergarten Relationship Specialty Start Date End Date Ilya Gusman MD [address] [place] [address] [phone] PCP - General 05/14/17 [facility] 09/01/25 documented as of this encounter
--- OUTSIDE RECORDS SUMMARY | 2025-09-23 20:58 | XMS_ITS | Encounter Summary ---
Author Organization [facility] ystem Address [address] [place] [address] Phone Care Team Providers Care Procedure Analyst Name Role Phone Ilya Gusman MD Primary Care Provider [phone] Encounter Details Date Type Department Care Team (Late Contact Info) Description 01/30/2024 Scanned Document [facility] - Health Information Department [address] [place] [phone] Scan, No Provider Available [address] [place] [address] [place] [address] <No scans attached> Social History Tobacco Use [...] Upcoming Encounters Date Type Department Care Team ([facility] Contact Info) Description 10/06/2025 10:45 AM EST Office Visit [facility] - Internal Medicine [address] [place] [phone] Ilya Gusman MD [address] [place] [phone] Christophe Dailey MD [address] [place] [address] [phone] 01/18/2026 1:00 PM EST Office Visit [facility] [address] [place] [address] Porsha Marsh, COST ESTIMATING CLERK [address] [place] [address] 02/22/2026 11:00 AM EDT Office Visit [facility] [address] [place] [address] [address] [place] [phone] Alonso Bae MD [address] [place] [address] [address] [place] [address] 07/17/2026 2:00 PM EDT Office Visit [facility] - Internal Medicine [address] [place] [phone] Ilya Gusman MD [address] [place] [phone] 07/19/2026 11:40 AM EDT Office Visit [facility] [address] [place] [address] Yesi Perez MD [address] [place] [address] documented as of this encounter Visit Diagnoses Not on filedocumented in this encounter Additional Health Concerns Infection Onset Date Last Indicated Resolved Time C difficile Rule-Out 11/01/2024 11/02/2024 024 9:43 AM EST Assessment Noted Time PHQ-9 Depression Total Score: 9 06/05/20 20 9:52 AM EDT documented as of this encounter Care Teams Procedure Analyst Relationship Specialty Start Date End Date Ilya Gusman MD [address] [place] [address] [phone] PCP - General 05/14/17 [facility] 09/01/25 documented as of this encounter
--- OUTSIDE RECORDS SUMMARY | 2025-09-23 20:58 | XMS_ITS | Encounter Summary ---
Author Organization [facility] ystem Address [address] [place] [address] Phone Care Team Providers Care Appraiser Oil [employer] Name Role Phone Ilya Gusman MD Primary Care Provider [phone] Encounter Details Date Type Department Care Team ([facility] Contact Info) Description 04/02/2024 Orders Only [facility] - Health Information Department [address] [place] [phone] Scan, No Provider Available [address] [place] [address] [address] [place] [phone] Social History Tobacco Use Types Packs/Day Years [...] Upcoming Encounters Date Type Department Care Team ([facility] Contact Info) Description 10/06/2025 10:45 AM EST Office Visit [facility] - Internal Medicine [address] [place] [phone] Ilya Gusman MD [address] [place] [phone] Christophe Dailey MD [address] [place] [phone] 01/18/2026 1:00 PM EST Office Visit [facility] [address] [place] [phone] Porsha Marsh, MACHINE FILLER [address] [place] [address] 02/22/2026 11:00 AM EDT Office Visit [facility] [address] [place] [address] [address] [place] [phone] Alonso Bae MD [address] [place] [address] [address] [place] [address] 07/17/2026 2:00 PM EDT Office Visit [facility] - Internal Medicine [address] [place] [phone] Ilya Gusman MD [address] [place] [phone] 07/19/2026 11:40 AM EDT Office Visit [facility] [address] [place] [address] Yesi Perez MD [address] [place] [address] documented as of this encounter Procedures Procedure Name Priority Date/Time Associated Diagnosis Comments ECG 12-LEAD Today 03/23/2024 9:16 AM EDT documented in this encounter Results * ECG (03/23/2024 9:16 AM EDT) No Provider Available Scan ECG ORDERABLES Final Result documented in this encounter Visit Diagnoses Not on filedocumented in this encounter Additional Health Concerns Infection Onset Date Last Indicated Resolved Time C difficile Rule-Out 11/01/2024 11/02/2024 024 9:43 AM EST Assessment Noted Time PHQ-9 Depression Total Score: 9 06/05/20 20 9:52 AM EDT documented as of this encounter Care Teams Appraiser Oil [employer] Relationship Specialty Start Date End Date Ilya Gusman MD [address] [place] [address] [phone] PCP - General 05/14/17 [facility] 09/01/25 documented as of this encounter
--- OUTSIDE RECORDS SUMMARY | 2025-09-23 20:58 | XMS_ITS | Encounter Summary ---
Author Organization [facility] ystem Address [address] [place] [address] Phone Care Team Providers Care Looper Operator Name Role Phone Ilya Gusman MD Primary Care Provider [phone] Encounter Details Date Type Department Care Team (Late st Contact Info) Description 04/25/2021 Orders Only [facility] - Health Information Department [address] [place] [address] Scan, No Provider Available [address] [facility] [place] [address] Social History Tobacco Use Types Packs/Day Years [...] have Coronavirus / COVID-19? Unable to assess 04/16/2021 9:44 AM EDT documented as of this encounter Plan of Treatment Upcoming Encounters Date Type Department Care Team (Late st Contact Info) Description 10/06/2025 10:45 AM EST Office Visit [facility] - Internal Medicine [address] [place] [phone] Ilya Gusman MD [address] [place] [phone] Christophe Dailey MD [address] [place] [phone] 01/18/2026 1:00 PM EST Office Visit [facility] [address] [place] [address] Porsha Marsh, MARILIA [address] [place] [address] 02/22/2026 11:00 AM EDT Office Visit [facility] [address] [place] [address] [address] [place] [phone] Alonso Bae MD [address] [place] [address] [address] [place] [address] 07/17/2026 2:00 PM EDT Office Visit [facility] - Internal Medicine [address] [place] [phone] Ilya Gusman MD [address] [place] [phone] 07/19/2026 11:40 AM EDT Office Visit [facility] [address] [place] [address] Yesi Perez MD [address] [place] [address] documented as of this encounter Procedures Procedure Name Priority Date/Time Associated Diagnosis Comments MR INO COX Routine 04/18/2021 documented in this encounter Results * MR Ino cox (04/18/2021) No Provider Available Scan LAB BLOOD ORDERABLES Edited Result - Final documented in this [...] documented as of this encounter Care Teams Looper Operator Relationship Specialty Start Date End Date Ilya Gusman MD [address] [place] [phone] PCP - General 05/14/17 [facility] 09/01/25 documented as of this encounter
--- OUTSIDE RECORDS SUMMARY | 2025-09-23 20:58 | XMS_ITS | Clinical Summary ---
Author Organization [facility]en [facility] [place] Address [address] [place] [id number] Care Team Providers Care Chartered Accountant Name Role Phone Ilya Gusman MD Primary Care Provider [phone] Allergies Active Allergy Reactions Criticality Noted Date Comments Bee Venom Protein (Honey Bee) Swelling 06/02/2024 Fluoxetine Hallucinations,Menta l Status Change 04/02/2021 Identified As: From Prozac Hallucinating Sulfa (Sulfonamide Antibiotics) Hives Medium 01/30/2007 Sulfamethoxazole-Trime thoprim Hives,Unknown 07/26/2016 Venom-Yellow Jacket Swelling 03/29/2018 Medications atorvaSTATin (LIPITOR) 40 MG tablet Take 1 tablet (40 mg total) by mouth at bedtime. 01/01/20 21 Active fluticasone propionate (FLONASE) 50 mcg/actuation nasal spray 1 spray into each nostril daily as needed for rhinitis or allergies. 11/30/19 23 Active omeprazole (PriLOSEC) [address] capsule Take 1 capsule (20 mg total) by mouth daily before breakfast. 02/26/20 23 Active apixaban (ELIQUIS) 5 mg Tab Take 1 tablet (5 mg total) by mouth in the morning and 1 tablet (5 mg total) before bedtime. Active DULoxetine (CYMBALTA) [address] capsule Take 1 capsule (60 mg total) by mouth in the morning and 1 capsule (60 mg total) before bedtime. Active QUEtiapine (SEROquel) 200 MG tablet Take 1 tablet (200 mg total) by mouth in the morning and 1 tablet (200 mg total) before bedtime. Active sennosides (SENOKOT) 8.6 mg tablet Take 2 tablets (17.2 mg total) by mouth at bedtime as needed for constipation. 03/30/20 25 Active furosemide (LASIX) 40 MG tablet Take 1 tablet (40 mg total) by mouth daily as needed (edema/ weight gain/ shortness of breath). Active diltiazem (CARDIZEM CD) 240 MG 24 hr capsule Take 1 capsule (240 mg total) by mouth every morning. 05/05/20 25 Active ferrous sulfate 325 (65 FE) MG tablet Take 1 tablet (325 mg total) by mouth daily with breakfast. 06/03/20 25 Active naloxone (NARCAN) 4 mg/actuation Iyanbito nasal spray 1 spray (4 mg total) by Intranasal route every 5 minutes as needed (opioid overdose) for up to 2 doses. as needed for opioid overdose. Give CPR and contact 911. May give 2nd dose 2-3 minutes later with the second device into the other nostril if no or minimal response. 2 each 06/23/20 25 Active cholecalciferol , vitamin D3, 25 mcg (1,000 unit) capsule Take 1 capsule (1,000 Units total) by mouth daily for 30 days. 30 capsule 07/04/20 25 Active HYDROmorphone (DILAUDID) 8 MG tablet Take 1 tablet (8 mg total) by mouth every 8 hours as needed for pain. 06/17/20 25 Active thiamine (vitamin B-1) 100 MG tablet Take 1 tablet (100 mg total) by mouth in the morning. Active folic acid (FOLVITE) 1 MG tablet Take 1 tablet (1 mg total) by mouth in the morning. 09/23/20 25 Active isosorbide mononitrate ER (IMDUR) 30 MG 24 hr tablet Take 1 tablet (30 mg total) by mouth in the morning. 09/23/20 25 Active isosorbide mononitrate ER (IMDUR) 30 MG 24 hr tablet Take 1 tablet (30 mg total) by mouth daily. 30 tablet 05/06/20 25 025 Discontinued folic acid (FOLVITE) 1 MG tablet Take 1 tablet (1 mg total) by mouth daily. 90 tablet 05/10/20 25 025 Discontinued Active Problems Problem Noted Date Diagnosed Date Dupuytren contracture 08/17/2025 AMS (altered mental status) 08/16/2025 Colitis 07/07/2025 Syncope and collapse 07/03/2025 Generalized weakness 06/22/2025 Hypophosphatemia 06/22/2025 Hypokalemia 05/05/2025 Hypomagnesemia 05/05/2025 Demand ischemia 05/05/2025 Diverticulitis 05/02/2025 Pulmonary edema with congestive heart failure Bradycardia 10/19/2024 Iron deficiency 10/18/2024 Chest pain 10/16/2024 Demand ischemia 09/25/2024 Immunocompromised state due to drug therapy 12/2023 A-fib 07/16/2024 Dyspnea, unspecified 07/16/2024 Chest pain, unspecified 07/16/2024 Dorsalgia, unspecified 07/05/2024 Other chronic pain 06/13/2024 Acidosis, unspecified 06/07/2024 Nausea with vomiting, unspecified 06/07/2024 Tremor, unspecified 06/04/2024 Essential (primary) hypertension 06/02/2024 Hemorrhage of anus and rectum 05/10/2024 Dyspnea, unspecified 05/08/2024 Weakness 05/08/2024 Hemorrhage of anus and rectum 04/12/2024 Dyspnea, unspecified 04/07/2024 Other pulmonary embolism without acute cor pulmo nale 04/06/2024 Overview (08/11/2024): ICD-10 Qualified Code(s): I26.99 - Other pulmonary embolism without acute cor pulmonale; Acute cor pulmonale presence - without acute cor pulmonale; Chronicity - acute; Pulmonary embolism type - unspecified; Unspecified atrial fibrillation 04/06/2024 Other chest pain 04/06/2024 Opioid use, unspecified with withdrawal 03/23/20 Other persistent atrial fibrillation 03/23/2024 Systemic inflammatory respon se syndrome (sirs) of non-infectious origin without acute organ dysfunction 03/23/2024 Unspecified atrial fibrillation 03/06/2024 Postprocedural fever 02/03/2024 Other psychoactive substance use, unspecified with withdrawal, unspecified 01/09/2024 Gastrointestinal hemorrhage, unspecified 024 Essential (primary) hypertension 01/06/2024 Tremor, unspecified 01/06/2024 Chills (without fever) 01/06/2024 Headache, unspecified 01/06/2024 Abnormal findings on diagnos tic imaging of other specified body structures 01/06/2024 Low back pain, unspecified 08/02/2023 Overview (08/11/2024): Add'l ICD-10 Code(s): G89.29 - Other chronic pain; Vomiting, unspecified 08/02/2023 Overview (08/11/2024): ICD-10 Qualified Code(s): R11.2 - Nausea with vomiting, unspecified; Nausea presence - with nausea; Vomiting type - unspecified; Opioid dependence, uncomplicated 02/25/2023 Essential (primary) hypertension 02/25/2023 Overview (08/11/2024): ICD-10 Qualified Code(s): I10 - Essential (primary) hypertension; Hypertension type - unspecified; Unspecified abdominal pain 02/25/2023 Nausea with vomiting, unspecified 02/25/2023 Abnormal electrocardiogram (ECG) (EKG) 3 Acute bronchospasm 12/30/2022 Opioid use, unspecified, uncomplicated Nausea with vomiting, unspecified 12/01/2022 Eosinophilia, unspecified 01/06/2022 Pneumonia, unspecified organism 01/05/2022 Overview (08/11/2024): ICD-10 Qualified Code(s): J18.9 - Pneumonia, unspecified organism; Pneumonia type - due to unspecified organism; Vomiting, unspecified 07/01/2021 Bipolar disorder, unspecified 06/27/2021 Adverse effect of other anti psychotics and neuroleptics, initial encounter 06/21/2021 Alcohol abuse, uncomplicated 04/19/2021 Opioid dependence with current use 04/18/2021 Alcohol use, unspecified with intoxication, unsp ecified 04/18/2021 Dorsalgia, unspecified 04/18/2021 Overview (08/11/2024): Add'l ICD-10 Code(s): G89.29 - Other chronic pain; Suicidal ideation 04/18/2021 Other injury of unspecified body region, initial encounter 04/18/2021 Unspecified fall, initial encounter 04/18/2021 Ventricular premature depolarization 01/02/2021 Sigmoiditis 01/02/2021 Chest pain, unspecified 01/01/2021 Hyperlipidemia, unspecified 10/24/2020 Hypomagnesemia 10/24/2020 Hypokalemia 10/24/2020 Essential (primary) hypertension 10/24/2020 Chronic diastolic (congestive) heart failure 11/2019 Palpitations 10/24/2020 Chest pain, unspecified 10/24/2020 Other specified postprocedural states 10/24/2020 Precordial pain 10/23/2020 Sleep apnea, unspecified 10/03/2020 Supraventricular tachycardia 10/03/2020 Unspecified atrial flutter 10/03/2020 Pyuria 10/03/2020 Other specified postprocedural states 10/03/2020 Type 2 diabetes mellitus without complications 1 Essential (primary) hypertension 09/15/2020 Overview (08/11/2024): ICD-10 Qualified Code(s): I10 - Essential (primary) hypertension; Hypertension type - unspecified; Chronic atrial fibrillation, unspecified 020 Muscle spasm of back 09/15/2020 [facility] (current) use of anticoagulants 2019 Dorsalgia, unspecified 09/14/2020 Other specified abnormalities of plasma proteins 09/14/2020 Resolved Problems Problem Noted Date Diagnosed Date Resolved Date Nausea & vomiting 05/06/2025 05/09/2025 Hypertensive urgency 05/05/2025 025 Alcohol withdrawal delirium 05/02/2025 05/05/2025 Hypokalemia 12/21/2024 12/21/2024 Gastroenteritis 12/19/2024 12/21/2024 SULEMA (acute kidney injury) 11/19/2024 Syncope 11/19/2024 11/21/2024 Intractable nausea and vomiting 09/22/2024 09/25/2024 Hypokalemia 06/07/2024 09/25/2024 Acute on chronic back pain 01/06/2024 0 05/05/2025 Overview (08/11/2024): Add'l ICD-10 Code(s): G89.29 - Other chronic pain; Hypotension 07/01/2021 12/21/2024 Dehydration 01/01/2021 11/21/2024 Atrial fibrillation with rap id ventricular response 10/24/2020 09/25/2024 Overview (08/11/2024): Add'l ICD-10 Code(s): I48.92 - Unspecified atrial flutter; Encounters Date Type Department Care Team Description 09/22/2025 10:28 AM EDT - 09/23/2025 6:33 PM EDT Hospital Encounter [address] [address] Kg Mccollum MD Sen, Rohan, MD Garcia, Antonio, DO Alcoholic intoxication without complication (Primary Dx); Weakness; Depression, unspecified depression type; Alcohol withdrawal syndrome without complication (CMS-HCC); Suicidal ideation; Elevated lactic acid level; Post traumatic stress disorder (PTSD) [F43.10]; Alcohol use, unspecified with intoxication, unspecified [F10.929] Discharge Disposition: [facility] ([facility] 09/22/2025 Travel 09/03/2025 5:34 AM EDT - 09/03/2025 8:52 AM EDT Emergency [facility] Emergency Department [address] [place] [phone] Syed Fox MD Hypertension, unspecified type (Primary Dx); Palpitations Discharge Disposition: Home or Self Care 09/03/2025 Travel 08/16/2025 12:40 PM EDT - 08/17/2025 3:56 PM EDT Hospital Encounter [facility] Clinical Decision Unit [address] [place] [address] Syed Fox MD Newcomb, Mark, MD Abou Rjeily, Charbel, MD Nachiappan, Arun Chakravarthy, MD Ammous, Ahmad H, MD Expressive aphasia (Primary Dx); Altered mental status, unspecified altered mental status type; Dupuytren contracture; Wound infection after surgery Discharge Disposition: Home-Health Care Svc 08/16/2025 Travel 07/23/2025 3:33 PM EDT - 07/24/2025 12:58 AM EDT Emergency [facility] Emergency Department [address] [place] [address] Pita Moore DO Treut, Peter W, MD Hypertension, unspecified type (Primary Dx) Discharge Disposition: Home or Self Care 07/23/2025 Travel 07/22/2025 Results Follow-Up BID [facility] [address] [place] [address] [place] [address] Verito Villareal MD Surgical Pathology Tissue Exam 07/21/2025 2:04 PM EDT Anesthesia Event [facility] Endoscopy [address] [place] [address] 1st [place] [address] Rojas Fabian MD Novak, Lisa C, GROUP HOME PARAPROFESSIONAL 07/21/2025 1:37 PM EDT - 07/21/2025 11:59 PM EDT Hospital Encounter [facility] Endoscopy [address] [place] [address] Floor [place] [address] Verito Villareal MD Matthes, Kai, MD Novak, Lisa C, Roberta Lemus, DOMINGA , [place] Abnormal CT scan, colon (Primary Dx); Proctitis Discharge Disposition: Home or Self Care 07/18/2025 Telephone BID [facility] [address] [place] [address] [place] [phone] Jany Chavez MA medication question 07/07/2025 8:38 AM EDT - 07/08/2025 2:55 PM EDT Hospital Encounter [place] [address] [place] [address] 2nd [place] [address] Phillip Moore MD Ammous, Ahmad H, MD Abdominal pain, unspecified abdominal location (Primary Dx); Atrial fibrillation, unspecified type Discharge Disposition: Home-Health Care Svc 07/06/2025 10:01 PM EDT - 07/07/2025 3:16 AM EDT Emergency [facility] Emergency Department [address] [place] [address] Tiago Haider MD Abdominal pain, unspecified abdominal location (Primary Dx); Abnormal CT of the abdomen Discharge Disposition: Home or Self Care 07/06/2025 Travel 07/04/2025 Telephone BID [facility] [address] [place] [address] Tisha Coyne MA Colonoscopy 07/02/2025 9:48 PM EDT - 07/04/2025 3:27 PM EDT Hospital Encounter [address] 3rd [place] [address] Tiago Haider MD Islam, MD Valerie Mcdonnell Shruti, MD Hypovolemic shock (Primary Dx); Hypokalemia; Orthostatic syncope; Left hip pain; Contusion of head, unspecified part of head, initial encounter; Neck pain; Chronic back pain, unspecified back location, unspecified back pain laterality; Left arm pain; Syncope, unspecified syncope type; Weakness Discharge Disposition: Home-Health Care Svc 07/02/2025 6:27 AM EDT - 07/02/2025 12:51 PM EDT Emergency [facility] Emergency Department [address] [place] [phone] Syed Fxo MD Nausea and vomiting, unspecified vomiting type (Primary Dx); Hypomagnesemia; Dehydration Discharge Disposition: Home or Self Care 07/02/2025 Travel 06/21/2025 2:54 PM EDT - 06/23/2025 12:17 PM EDT Hospital Encounter [facility] Decision [facility] [address] [place] [address] Chai Cullen MD Du, Guyu, MD Pathy, Sumit, MD Qasem, Vinny Mendez MD Gait instability (Primary Dx); Dizziness; Hypokalemia; Weakness Discharge Disposition: Home-Health Care Svc from Last 3 Months Immunizations Immunization Administration Dates Next Due COVID-19 Vaccine (MODERNA) 10/11/2021,03/13/2021,02/13/2021 Covid-19 vaccine (SPIKEVAX) (Moderna) 12 yrs+ 09/23/2023 Hepatitis B 03/27/2018 Influenza Vaccine - EGG FREE MDCK - SDV (FLUCELVAX) 11/01/2019 Influenza Vaccine - HIGH DOS E (FLUZONE HD) 08/08/2022 Influenza Vaccine - QUAD ADJ UVANTED (FLUAD QUAD) 08/05/2023 Influenza Vaccine - STANDARD - MDV (FLUZONE/AFLURIA) 08/05/2018,08/25/2012 Influenza Vaccine - STANDARD - PF (FLUZONE/FLUARIX/FLULAVAL/AFLURIA) 09/13/2016 Influenza Vaccine - STANDARD - SDV (FLUZONE/FLUARIX/FLULAVAL/AFLURIA) 08/08/2021,07/12/2020,08/08/2017,07/24 Pneumococcal Conjugate Vacci ne 13-Valent, (PCV13/PREVNAR 13) 03/27/2018 Pneumococcal polysaccharide vaccine 23-valent (PPSV23/[id number]) 01/15/2019,01/15/2013 TD (TENIVAC/TDVAX) 05/17/2016 Tdap Vaccine (BOOSTRIX/ADACEL) 02/12/2007 Zoster Vaccine Recombinant (Shingrix) 11/01/2019 Family History Medical History Relation Comments Colon cancer Neg Hx Social History Tobacco Use Types Packs/Day Years Used Date Smoking Tobacco: Never Smokeless Tobacco: Never Tobacco Cessation:Counseling Given: Not Answered Alcohol Use Standard Drinks/Week Comments Not Currently [...] and Family Not on file 09/23/2025 Attends Muslim Services Not on file 09/23 Active Member [...] were you homeless or living in a detention (including now)? No 09/23/2025 [facility] Utilities Answer Date Recorded In the past 12 months has th e electric, gas, oil, or water company threatened to [...] PM EST Sexual Orientation Not on file Last Filed [...] Mass Index 26.55 09/23/2025 12:47 PM EDT Plan of Treatment Health Maintenance Due Date Last Done Comments SDM 1957 Depression Screening 1961 Diabetic Eye Exam 1975 Hepatitis C Screening 1975 CT Colonography 2002 FIT 2002 Multitarget Stool DNA (Cologuard) 2002 Sigmoidoscopy 2002 Zoster Vaccine (2 of 2) 12/27/2019 11/01/2019, 11/01 Medicare Initial AWV [id number] 07/25/2023 Pneumococcal Vaccine: 50+ Years (3 of 3 - PCV20 or PCV21) 01/15/2024 01/15/2019, 03/27/2018, 01/15/2013 COVID-19 Vaccine ( season) 2025 09/23/2023, 10/11/2021, 03/13/2021, Additional history exists Influenza Vaccine (#1) 2025 , 08/05/2023, 08/05/2023, Additional history exists FOBT 10/31/2025 10/31/2024 Urine Microalbumin 02/04/2026 02/04/2025, 12/26/2023 Hemoglobin A1c 02/14/2026 09/23/2025, 07/26, 06/03/2025, Additional history exists Lipid Panel 08/17/2026 08/17/2025, 05/0 01/2025, 03/10/2025, Additional history exists Blood Pressure 09/23/2026 09/23/2025 PSA 07/18/2027 07/18/2025, 05/0 01/2025, 02/18/2025, Additional history exists Prostate Cancer Screening 07/18/2027 Colonoscopy 07/20/2028 07/21/2025 Colorectal Cancer Screening 07/20/2028 DTaP,Tdap,and Td Vaccines (4 - Td or Tdap) 06/09/2029 06/09/2019, 05/17/2016, 02/12/2007 Meningococcal B Vaccines Aged Out No longer eligible based on patient's age to complete this topic Meningococcal Vaccines Aged Out No lo nger eligible based on patient's age to complete this topic Procedures Procedure Name Priority Date/Time Associated Diagnosis [...] CONTRAST STAT 09/22/2025 1 1:15 AM EDT BLOOD GAS, VENOUS STAT 09/22/2025 10: 49 AM EDT SARS COV2/INFLUENZA A/B AND RSV STAT 09/22/2025 10:49 AM EDT LACTIC ACID WITH REFLEX STAT 09/22/2025 10:49 AM EDT XR CHEST 2 VW STAT 09/22/2025 10:37 AM EDT CBC AND DIFFERENTIAL STAT 09/22/2025 10:18 AM EDT SALICYLATE LEVEL STAT 09/22/2025 10:1 8 AM EDT ACETAMINOPHEN LEVEL STAT 09/22/2025 1 0:18 AM EDT PROCALCITONIN Routine 09/22/2025 10:18 AM EDT BETA-HYDROXYBUTYRATE Routine 09/22/2025 10:18 AM EDT TSH Routine 09/22/2025 10:18 AM EDT ETHANOL, BLOOD Routine 09/22/2025 10:18 AM EDT APTT Routine 09/22/2025 10:18 AM EDT PROTIME-INR Routine 09/22/2025 10:18 AM EDT NT-PROBNP Routine 09/22/2025 10:18 AM EDT TROPONIN (ALL) Routine 09/22/2025 10:18 AM EDT LIPASE Routine 09/22/2025 10:18 AM EDT MAGNESIUM Routine 09/22/2025 10:18 AM EDT YELLOW TOP STAT 09/22/2025 10:18 AM EDT CBC AND DIFFERENTIAL STAT 09/22/2025 10:18 AM EDT COMPREHENSIVE METABOLIC PANEL STAT 09/22/2025 10:18 AM EDT ECG 12-LEAD STAT 09/22/2025 10:17 AM EDT Procedure Note - 09/22/2025 10:17 AM EDTThis note is in progress. SINUS RHYTHM LEFT AXIS DEVIATION [QRS AXIS < -30] POSSIBLE LATERAL MYOCARDIAL INFARCTION , PROBABLY OLD [30 ms Q WAVE INI/aVL/V5/V6] ABNORMAL ECG TROPONIN (ALL) STAT 09/03/2025 7:53 AM EDT RAINBOW DRAW STAT 09/03/2025 6:21 AM EDT CBC AND DIFFERENTIAL STAT 09/03/2025 6:21 AM EDT TROPONIN (ALL) STAT 09/03/2025 6:21 AM EDT YELLOW TOP STAT 09/03/2025 6:21 AM EDT LIGHT BLUE TOP STAT 09/03/2025 6:21 AM EDT CBC AND DIFFERENTIAL STAT 09/03/2025 6:21 AM EDT MAGNESIUM STAT 09/03/2025 6:21 AM EDT COMPREHENSIVE METABOLIC PANEL STAT 09/03/2025 6:21 AM EDT ECG 12-LEAD STAT 09/03/2025 5:28 AM EDT MRI BRAIN WO CONTRAST STAT 08/17/2025 10:54 AM EDT DRUG SCREEN, URINE Routine 08/17/2025 6: 12 AM EDT LIPID PANEL Routine 08/17/2025 4:59 AM EDT TSH Routine 08/17/2025 4:59 AM EDT PHOSPHORUS Routine 08/17/2025 4:59 AM EDT MAGNESIUM Routine 08/17/2025 4:59 AM EDT BASIC METABOLIC PANEL Routine 08/17/2025 4:59 AM EDT CBC Routine 08/17/2025 4:59 AM EDT HEMOGLOBIN A1C Routine 08/17/2025 4:59 AM EDT CULTURE, AEROBIC (INCL GRAM) Routine 08/17/2025 12:11 AM EDT CULTURE, AEROBIC (INCL GRAM) Routine 08/17/2025 12:11 AM EDT URINALYSIS WITH URINE CULTURE REFLEX STAT 08/16/2025 10:08 PM EDT CK (CREATINE KINASE) Routine 08/16/2025 6:55 PM EDT AMMONIA STAT 08/16/2025 6:55 PM EDT ETHANOL, BLOOD STAT 08/16/2025 6:55 PM EDT CTA HEAD/NECK STAT 08/16/2025 3:[address] HEAD WO CONTRAST STAT 08/16/2025 3 :56 PM EDT ECG 12-LEAD STAT 08/16/2025 1:44 PM EDT APTT STAT 08/16/2025 1:36 PM EDT PROTIME-INR STAT 08/16/2025 1:36 PM EDT RAINBOW DRAW STAT 08/16/2025 1:35 PM EDT CBC AND DIFFERENTIAL STAT 08/16/2025 1:35 PM EDT SEDIMENTATION RATE, AUTOMATED STAT 08/16/2025 1:35 PM EDT ETHANOL, BLOOD STAT 08/16/2025 1:35 PM EDT MAGNESIUM STAT 08/16/2025 1:35 PM EDT YELLOW TOP STAT 08/16/2025 1:35 PM EDT CBC AND DIFFERENTIAL STAT 08/16/2025 1:35 PM EDT COMPREHENSIVE METABOLIC PANEL STAT 08/16/2025 1:35 PM EDT TYPE AND SCREEN STAT 08/16/2025 1:32 PM EDT URINALYSIS WITH URINE CULTURE REFLEX STAT 07/23/2025 10:47 PM EDT TROPONIN (ALL) STAT 07/23/2025 10:41 PM EDT HS-TROPONIN 3 HOUR STAT 07/23/2025 6: 18 PM EDT XR PORTABLE CHEST 1 VW STAT 07/23/2025 5:30 PM EDT CBC AND DIFFERENTIAL STAT 07/23/2025 3:27 PM EDT RAINBOW DRAW STAT 07/23/2025 3:27 PM EDT HS TROPONIN T (REFLEX 1HR, 3HR) Routine 07/23/2025 3:27 PM EDT CBC AND DIFFERENTIAL STAT 07/23/2025 3:27 PM EDT YELLOW TOP STAT 07/23/2025 3:27 PM EDT LIGHT BLUE TOP STAT 07/23/2025 3:27 PM EDT COMPREHENSIVE METABOLIC PANEL STAT 07/23/2025 3:27 PM EDT ECG 12-LEAD STAT 07/23/2025 3:24 PM EDT COLONOSCOPY Routine 07/21/2025 2:[address] scan, colon Proctitis SURGICAL PATHOLOGY TISSUE EXAM Routine 07/21/2025 2:[address] scan, colon Proctitis MAGNESIUM Routine 07/08/2025 7:25 AM EDT COMPREHENSIVE METABOLIC PANEL Routine 07/08/2025 7:25 AM EDT CBC Routine 07/08/2025 7:25 AM EDT URINALYSIS WITH URINE CULTURE REFLEX STAT 07/07/2025 2:27 PM EDT ECG 12-LEAD STAT 07/07/2025 8:33 AM EDT RAINBOW DRAW STAT 07/07/2025 8:30 AM EDT CBC AND DIFFERENTIAL STAT 07/07/2025 8:30 AM EDT YELLOW TOP STAT 07/07/2025 8:30 AM EDT LIGHT BLUE TOP STAT 07/07/2025 8:30 AM EDT CBC AND DIFFERENTIAL STAT 07/07/2025 8:30 AM EDT COMPREHENSIVE METABOLIC PANEL STAT 07/07/2025 8:30 AM EDT URINALYSIS WITH URINE CULTURE REFLEX STAT 07/07/2025 12:[address] ABDOMEN AND PELVIS W CONTRAST STAT 07/06/2025 11:44 PM EDT CBC AND DIFFERENTIAL STAT 07/06/2025 8:44 PM EDT LIPASE Routine 07/06/2025 8:44 PM EDT CBC AND DIFFERENTIAL STAT 07/06/2025 8:44 PM EDT COMPREHENSIVE METABOLIC PANEL STAT 07/06/2025 8:44 PM EDT ECG 12-LEAD STAT 07/06/2025 8:41 PM EDT LABELS FOR EXTRA TUBES Routine 07/04/2025 8:27 AM EDT LIPASE Routine 07/04/2025 8:27 AM EDT LAVENDER TOP Routine 07/04/2025 8:27 AM EDT C-REACTIVE PROTEIN Routine 07/04/2025 8 :27 AM EDT FOLATE Routine 07/04/2025 8:27 AM EDT VITAMIN B12 Routine 07/04/2025 8:27 AM EDT IRON PROFILE Routine 07/04/2025 8:27 AM EDT MAGNESIUM Routine 07/04/2025 8:27 AM EDT COMPREHENSIVE METABOLIC PANEL Routine 07/04/2025 8:[address] ABDOMEN AND PELVIS W CONTRAST STAT 07/03/2025 2:02 PM EDT PROCALCITONIN Routine 07/03/2025 5:33 AM EDT HS TROPONIN T Routine 07/03/2025 5:33 AM EDT VITAMIN D,25OH Routine 07/03/2025 5:33 AM EDT PROTIME-INR Routine 07/03/2025 5:33 AM EDT PHOSPHORUS Routine 07/03/2025 5:33 AM EDT MAGNESIUM Routine 07/03/2025 5:33 AM EDT COMPREHENSIVE METABOLIC PANEL Routine 07/03/2025 5:33 AM EDT CBC Routine 07/03/2025 5:33 AM EDT XR HIP LEFT 2 OR MORE VWS W AP PELVIS STAT 07/03/2025 12:52 AM EDT XR WRIST 3+ VW LEFT STAT 07/03/2025 1 2:52 AM EDT XR FOREARM 2 VW LEFT STAT 07/03/2025 12:[address] CERVICAL SPINE WO CONTRAST STAT 07/02/2025 11:[address] HEAD WO CONTRAST STAT 07/02/2025 1 1:46 PM EDT RAINBOW DRAW STAT 07/02/2025 10:16 PM EDT CBC AND DIFFERENTIAL STAT 07/02/2025 10:16 PM EDT YELLOW TOP STAT 07/02/2025 10:16 PM EDT LIGHT BLUE TOP STAT 07/02/2025 10:16 PM EDT CBC AND DIFFERENTIAL STAT 07/02/2025 10:16 PM EDT TROPONIN (ALL) STAT 07/02/2025 10:16 PM EDT MAGNESIUM STAT 07/02/2025 10:16 PM EDT BASIC METABOLIC PANEL STAT 07/02/2025 10:16 PM EDT ECG 12-LEAD STAT 07/02/2025 10:06 PM EDT SARS COV2/INFLUENZA A/B AND RSV STAT 07/02/2025 8:13 AM EDT ECG 12-LEAD STAT 07/02/2025 7:21 AM EDT XR PORTABLE CHEST 1 VW STAT 07/02/2025 7:04 AM EDT CBC AND DIFFERENTIAL STAT 07/02/2025 6:55 AM EDT HEPATIC FUNCTION PANEL STAT 07/02/2025 6:55 AM EDT MAGNESIUM Routine 07/02/2025 6:55 AM EDT CBC AND DIFFERENTIAL STAT 07/02/2025 6:55 AM EDT LIPASE STAT 07/02/2025 6:55 AM EDT BASIC METABOLIC PANEL STAT 07/02/2025 6:55 AM EDT MANUAL DIFFERENTIAL Routine 06/23/2025 6 :36 AM EDT CBC AND DIFFERENTIAL Timed 06/23/2025 6:36 AM EDT CBC AND DIFFERENTIAL Timed 06/23/2025 6:36 AM EDT MAGNESIUM Timed 06/23/2025 6:36 AM EDT COMPREHENSIVE METABOLIC PANEL Timed 06/23/2025 6:36 AM EDT from Last 3 Months Results * POCT Glucose (09/23/2025 5:55 PM EDT) Only the most recent of5 resultswithin the time period is included. Glucose, POC 131 75 - 140 mg/dL 09/23/2025 5:56 PM EDT [facility] Comment: @Serial Qymruq=[id number] @Education Department Registrar [id number] Blood 09/23/2025 5:55 PM EDT 09/23/2025 5:56 PM EDT us Paulie Jimenez DO POCT ORDERABLES - DEVICE Final Result Performing Organization Address [facility] Co de Phone Number [facility] [address] [place] [id number], [place] * Lactic Acid with 3 Hour Reflex (09/23/2025 10:12 AM EDT) Only the most recent of3 resultswithin the time period is included. [facility] Lactic Acid, Venous, Peripheral 0.9 0.5 - 2.0 mmol/L 09/23/2025 11:04 AM EDT [facility] [facility] Blood PERIPHERAL BLOOD SPECIMEN / Unknown Venipuncture / Unknown 09/23/2025 10:12 AM EDT 09/23/2025 10:24 AM EDT Paulie Jimenez DO LAB BLOOD ORDERABLES Final Res ult Performing Organization Address [facility] Co de Phone Number [address] [address], [place] * Alcohol (09/23/2025 7:46 AM EDT) Only the most recent of4 resultswithin the time period is included. Pathologist [facility] Alcohol <10 <10 mg/dL 09/23/2025 9:37 AM EDT [facility] Blood PERIPHERAL BLOOD SPECIMEN / Unknown Venipuncture / Unknown 09/23/2025 7:46 AM EDT 09/23/2025 8:06 AM EDT us Paulie Jimenez DO LAB BLOOD ORDERABLES Final Res ult [facility] [address] [place] [address], * (ABNORMAL) Basic Metabolic Panel (09/23/2025 7:46 AM EDT) Only the most recent of4 resultswithin the time period is included. Sodium 140 135 - 146 mmol/L 09/23/2025 8:35 AM [facility] Potassium 3.5 3.4 - 5.2 mmol/L 09/23/2025 8:35 AM [facility] Chloride 108 98 - 110 mmol/L 09/23/2025 8:35 AM [facility] Total CO2/Bicarbonat e 23(L) 24 - 32 mmol/L 09/23/2025 8:35 AM [facility] Anion Gap 10 2 - 15 mmol/L 09/23/2025 8:35 AM [facility] BUN 16 7 - 24 mg/dL 09/23/2025 8:35 AM [facility] Creatinine, Blood 0.70 0.60 - 1.30 mg/dL 09/23/2025 8:35 AM [facility] Glucose, Blood 99 50 - 100 mg/dL 09/23/2025 8:35 AM [facility] Calcium 8.6 8.5 - 10.5 mg/dL 09/23/2025 8:35 AM [facility] Estimated GFR(CKD-EPI) 100 mL/min/BSA 09/23/2025 8:35 AM [facility] Blood PERIPHERAL BLOOD SPECIMEN / Unknown Venipuncture / Unknown 09/23/2025 7:46 AM EDT 09/23/2025 8:06 AM EDT us Kameron Braswell MD LAB BLOOD ORDERABLES Final Resul t [facility] [address] [place] [address], * (ABNORMAL) CBC and Differential (09/23/2025 7:45 AM EDT) Only the most recent of10 resultswithin the time period is included. WBC 3.69(L) 3.90 - 10.80 K/uL 09/23/2025 8:19 AM [facility] RBC 3.70(L) 4.42 - 5.73 M/uL 09/23/2025 8:19 AM [facility] Hemoglobin 11.4(L) 14.0 - 17.3 g/dL 09/23/2025 8:19 AM [facility] Hematocrit 33.8(L) 40.1 - 51.0 % 09/23/2025 8:19 AM [facility] MCH 30.8 25.6 - 32.2 pg 09/23/2025 8:19 AM [facility] MCHC 33.7 32.0 - 36.0 g/dL 09/23/2025 8:19 AM [facility] MCV 91 83 - 96 fL 09/23/2025 8:19 AM [facility] RDW 14.6(H) 11.5 - 14.0 % 09/23/2025 8:19 AM [facility] Platelet Count 196 154 - 369 K/uL 09/23/2025 8:19 AM [facility] Neutrophil 49.8 % 09/23/2025 8:19 AM [facility] Lymphocyte 29.8 % 09/23/2025 8:19 AM [facility] Monocyte 11.1 % 09/23/2025 8:19 AM [facility] Eosinophil 7.6 % 09/23/2025 8:19 AM [facility] Basophil 1.4 % 09/23/2025 8:19 AM [facility] Immature Granulocyte (Cary, Myelo, Promyelocyte) 0.3 % 09/23/2025 8:19 AM EDT [facility] Absolute Neutrophil Count 1.84 1.68 - 7.99 K/uL 09/23/2025 8:19 AM [facility] Absolute Immature Granulocyte (Cary, Myelo, Promyelocyte) 0.01 0.00 - 0.09 K/uL 09/23/2025 8:19 AM [facility] Absolute Lymphocyte Count 1.10 0.66 - 4.75 K/uL 09/23/2025 8:19 AM [facility] Absolute Monocyte Count 0.41 0.16 - 1.40 K/uL 09/23/2025 8:19 AM [facility] Absolute Eosinophil Count 0.28 0.00 - 0.60 K/uL 09/23/2025 8:19 AM [facility] Absolute Basophil Count 0.05 0.00 - 0.32 K/uL 09/23/2025 8:19 AM [facility] Blood PERIPHERAL BLOOD SPECIMEN / Unknown Venipuncture / Unknown 09/23/2025 7:45 AM EDT 09/23/2025 8:06 AM EDT us Kameron Braswell MD LAB BLOOD ORDERABLES Final Resul t [facility] [address] [place] [id number], * Hemoglobin A1C (09/23/2025 7:45 AM EDT) Only the most recent of2 resultswithin the time period is included. Hemoglobin A1C 5.5 4.6 - 5.6 % 09/23/2025 1:21 PM EDT [facility] Estimated Average Glucose 111 mg/dL 09/23/2025 1:21 PM [facility] Estimated Average Glucose 112 mg/dL 09/23/2025 1:21 PM T [facility] Blood PERIPHERAL BLOOD SPECIMEN / Unknown Venipuncture / Unknown 09/23/2025 7:45 AM EDT 09/23/2025 8:06 AM EDT us Kameron Braswell MD LAB BLOOD ORDERABLES Final Resul t Performing Organization Address City/[facility]/ZIP Co de Phone Number [facility] [address] [place] [phone], [place] * (ABNORMAL) Lactic Acid, Reflexed (09/22/2025 6:52 PM EDT) Only the most recent of2 resultswithin the time period is included. Lactic Acid, Venous, Peripheral 3.9(H) 0.5 - 2.0 mmol/L 09/22/2025 7:25 PM EDT [facility] Blood Venipuncture / Unknown 09/22/2025 6:52 PM EDT 09/22/2025 7:04 PM EDT us Kg Mccollum MD LAB BLOOD ORDERABLES Final Result Performing Organization Address [facility] Co de Phone Number [facility] [address] [place] [phone], [place] * Drug Screen, Urine (09/22/2025 5:01 PM EDT) Only the most recent of2 resultswithin the time period is included. Amphetamines Screen, Urine Negative Negative [facility]/22[facility]2025 [facility] Barbiturates Screen, Urine Negative Negative 09/22/2025 5:44 [facility] Benzodiazepine Screen, Urine Negative Negative 09/22/2025 5:44 [facility] Buprenorphine Screen, Urine Negative Negative 09/22/2025 5:44 PM [facility] Cannabinoids Screen, Urine Negative Negative 09/22/2025 5:44 PM [facility] Cocaine Metabolite Screen, Urine Negative Negative 09/22/2025 5:44 [facility] Fentanyl Screen, Urine Negative Negative 09/22/2025 5:44 PM [facility] Methadone Screen, Urine Negative Negative 09/22/2025 5:44 [facility] Opiates Screen, Urine Negative Negative 09/22/2025 5:44 [facility] Oxycodone Screen, Urine Negative Negative 09/22/2025 5:44 PM EDT [facility] Propoxyphene Screen, Urine Negative Negative 09/22/2025 5:44 PM EDT [facility] Tricyclics Screen Negative Negative 025 5:44 PM EDT [facility] Comment 09/22/2025 5:44 PM EDT [facility] Comment: The cut-off concentration for a [...] URINE ORDERABLES Final Result Performing Organization Address [facility] Co de Phone Number [facility] [address] [place] [phone], * hs-Troponin T (09/22/2025 3:39 PM EDT) Only the most recent of2 resultswithin the time period is included. Troponin T HS 12 <=19 ng/L 09/22/2025 4:18 PM EDT [facility] Blood PERIPHERAL BLOOD SPECIMEN / Unknown Venipuncture / Unknown 09/22/2025 3:39 PM EDT 09/22/2025 3:52 PM EDT us Kameron Braswell MD LAB BLOOD ORDERABLES Final Resul t Performing Organization Address [facility] Co de Phone Number [facility] [address] [place] [phone], * (ABNORMAL) Urinalysis with Reflex to Urine Culture (09/22/2025 1:05 PM EDT) Only the most recent of5 resultswithin the time period is included. Color, Urine Yellow Yellow 09/22/2025 1:20 PM [facility] Clarity, Urine Clear Clear 09/22/2025 1:20 PM [facility] pH, Urine 7.0(H) 5.0 - 6.0 09/22/2025 1:20 PM [facility] Protein, Urine 1+ Negative, 1+ 09/22/2025 1:20 PM [facility] Glucose, Urine Negative Negative 09/22/2025 1:20 PM [facility] Ketone, Urine Negative Negative, Trace 09/22/2025 1:20 PM [facility] Bilirubin, Urine Negative Negative 09/22/2025 1:20 PM [facility] Urobilinogen, Urine Negative 0.2-1.0 mg/dL 09/22/2025 1:20 PM [facility] Blood, Urine Negative Negative 09/22/2025 1:20 PM [facility] Leukocyte Esterase, Urine Negative Negative 09/22/2025 1:20 PM [facility] Nitrite, Urine Negative Negative 09/22/2025 1:20 PM [facility] Specific Union, Urine 1.019 1.005 - 1.030 09/22/2025 1:20 PM [facility] White Blood Cells, Urine 0-2 <5 cells/HPF 09/22/2025 1:20 PM [facility] Red Blood Cell, Urine 0-2 <2 cells/HPF 09/22/2025 1:20 PM [facility] Bacteria Urine None Seen None Seen 09/22/2025 1:20 PM [facility] Mucous Threads Trace None Seen, Trace 09/22/2025 1:20 PM [facility] Urine MID-STREAM URINE SPECIMEN / Unknown Collection / Unknown 09/22/2025 1:05 PM EDT 09/22/2025 1:12 PM EDT us Kg Mccollum MD URINE ORDERABLES Final Res ult [facility] [address] [place] [address], [place] * CT Head WO IV Contrast (09/22/2025 11:15 AM EDT) Only the most recent of3 resultswithin the time period is included. Anatomical Region Laterality Modality Head Computed Tomogra phy 09/22/2025 11:1 5 AM EDT Impressions 09/22/2025 11:18 AM EDT 1. No evidence of acute intracranial pathology. 2. Similar generalized atrophy and chronic small vessel disease. 3. Mild to moderate chronic paranasal sinusitis. Signed By: Hector Figueroa on 09/22/2025 11:18 AM on [id number] Narrative 09/22/2025 11:18 AM EDT EXAM: CT [...] Hector Figueroa on 09/22/2025 11:18 AM on [id number] us Kg Mccollum MD IMG CT ORDERABLES Final Re sult * Covid/Flu/RSV (Rapid) (09/22/2025 10:49 AM EDT) Only the most recent of2 resultswithin the time period is included. Coronavirus SARS-CoV-2 Negative Negative 09/22/2025 11:36 AM EDT [facility] Influenza A Negative Negative 09/22/2025 11:36 AM EDT [facility] Influenza B Negative Negative 09/22/2025 11:36 AM EDT [facility] RSV by PCR Negative Negative 09/22/2025 11:36 AM EDT [facility] Respiratory NASOPHARYNGEAL SWAB / Unknown Collection / Unknown 09/22/2025 10:49 AM EDT 09/22/2025 10:52 AM EDT [facility] - 09/22/2025 11:36 AM EDT Test performed with [employer] GeneXpert SARS-CoV-2 PCR assay, which has received emergency use authorization (EUA) by the U.S. Food and Drug Administration. Negative results do not preclude SARS-CoV-2 infection and should not be used as the sole basis for treatment or other patient management decisions. us Kg Mccollum MD BODY FLUIDS AND STOOLS ORD ERABLES Final Result Performing Organization Address [facility] Co de Phone Number [facility] [address] [place] [address], [place] * (ABNORMAL) Blood Gas, Venous (09/22/2025 10:49 AM EDT) pH, Venous 7.53(H) 7.33 - 7.43 09/22/2025 10:56 AM EDT [facility] pCO2, Venous 26(L) 38 - 50 mmHg 09/22/2025 10:56 AM EDT [facility] pO2, Venous 47 30 - 50 mmHg 09/22/2025 10:56 AM EDT [facility] HCO3, Venous 22 22 - 29 mmol/L 09/22/2025 10:56 AM EDT [facility] Total CO2, Venous 23 22 - 27 mmol/L 09/22/2025 10:56 AM T [facility] O2 Saturation, Venous 82.2 60 - 85 % 09/22/2025 10:56 AM EDT [facility] Base Excess, Venous -0.6 -2.0 - 2.0 mmol/L 09/22/2025 10:56 AM EDT [facility] Blood Venipuncture / Unknown 09/22/2025 10:49 AM EDT 09/22/2025 10:53 AM EDT us Kg Mccollum MD LAB BLOOD ORDERABLES Final Result Performing Organization Address [facility] Co de Phone Number [facility] [address] [place] [address], [place] * XR Chest 2 Vw (09/22/2025 [...] Mayank Dumont on 09/22/2025 10:47 AM on [id number] Kg Mccollum MD IMG DIAGNOSTIC IMAGING ORD ERABLES Final Result * Troponin (once) (09/22/2025 10:18 AM EDT) Only the most recent of5 resultswithin the time period is included. Troponin T HS 14 <=19 ng/L 09/22/2025 10:56 AM EDT [facility] Blood PERIPHERAL BLOOD SPECIMEN / Unknown Venipuncture / Unknown 09/22/2025 10:18 AM EDT 09/22/2025 10:22 AM EDT Kg Mccollum MD LAB BLOOD ORDERABLES Final Result [facility] [address] [place] [id number], * Procalcitonin (09/22/2025 10:18 AM EDT) Only the most recent of2 resultswithin the time period is included. Procalcitonin 0.05 <0.15 ng/mL 09/22/2025 3:04 PM EDT [facility] Blood PERIPHERAL BLOOD SPECIMEN / Unknown Venipuncture / Unknown 09/22/2025 10:18 AM EDT 09/22/2025 10:22 AM EDT us Kg Mccollum MD LAB BLOOD ORDERABLES Final Result Performing Organization Address City/[facility]/ZIP Co de Phone Number [facility] [address] [place] [phone], [place] * NT-proBNP (09/22/2025 10:18 AM EDT) NT-ProBNP 488 <900 pg/mL 09/22/2025 10:56 AM EDT [facility] Blood PERIPHERAL BLOOD SPECIMEN / Unknown Venipuncture / Unknown 09/22/2025 10:18 AM EDT 09/22/2025 10:22 AM EDT Kg Mccollum MD LAB BLOOD ORDERABLES Final Result Performing Organization Address [facility] Co de Phone Number [facility] [address] [place] [phone], [place] * Beta-Hydroxybutyrate (09/22/2025 10:18 AM EDT) Beta-hydroxybu trate <0.20 0.05 - 6.00 mmol/L 09/22/2025 11:31 AM EDT [facility] Blood PERIPHERAL BLOOD SPECIMEN / Unknown Venipuncture / Unknown 09/22/2025 10:18 AM EDT 09/22/2025 10:22 AM EDT us Kg Mccollum MD LAB BLOOD ORDERABLES Final Result Performing Organization Address [facility]/ZIP Co de Phone Number [facility] [address] [place] [phone], [place] * Gold Top (09/22/2025 10:18 AM EDT) Only the most recent of6 resultswithin the time period is included. Gold Top Tube Received 09/22/2025 11:09 AM EDT [facility] Blood PERIPHERAL BLOOD SPECIMEN / Unknown Venipuncture / Unknown 09/22/2025 10:18 AM EDT 09/22/2025 10:22 AM EDT us Kg Mccollum MD LAB BLOOD ORDERABLES Final Result Performing Organization Address [facility] Co de Phone Number [facility] [address] [place] [phone], [place] * APTT (09/22/2025 10:18 AM EDT) Only the most recent of2 resultswithin the time period is included. PTT 26 23 - 36 s 09/22/2025 10:36 AM EDT [facility] Comment: Unfractionated heparin therapeutic range for hospitalized patients: [id number] 60 to 80 seconds Blood PERIPHERAL BLOOD SPECIMEN / Unknown Venipuncture / Unknown 09/22/2025 10:18 AM EDT 09/22/2025 10:22 AM EDT us Kg Mccollum MD LAB BLOOD ORDERABLES Final Result Performing Organization Address [facility] de Phone Number [facility] [address] [place] [phone], [place] * PT-INR (09/22/2025 10:18 AM EDT) Only the most recent of3 resultswithin the time period is included. Prothrombin Time 14.0 12.1 - 14.6 s 09/22/2025 10:36 AM EDT [facility] INR 1.0 <5.0 09/22/2025 10:36 AM EDT [facility] Blood PERIPHERAL BLOOD SPECIMEN / Unknown Venipuncture / Unknown 09/22/2025 10:18 AM EDT 09/22/2025 10:22 AM EDT us Kg Mccollum MD LAB BLOOD ORDERABLES Final Result Performing Organization Address [facility] de Phone Number [facility] [address] [place] [phone], [place] * TSH (09/22/2025 10:18 AM EDT) Only the most recent of2 resultswithin the time period is included. TSH 0.54 0.30 - 4.50 uIU/mL 09/22/2025 10:56 AM EDT [facility] Blood PERIPHERAL BLOOD SPECIMEN / Unknown Venipuncture / Unknown 09/22/2025 10:18 AM EDT 09/22/2025 10:22 AM EDT Kg Mccollum MD LAB BLOOD ORDERABLES Final Result Performing Organization Address [facility] Co de Phone Number [facility] [address] [place] [phone], [place] * Magnesium (09/22/2025 10:18 AM EDT) Only the most recent of10 resultswithin the time period is included. Magnesium, Blood 2.0 1.6 - 2.6 mg/dL 09/22/2025 10:56 AM EDT [facility] Blood PERIPHERAL BLOOD SPECIMEN / Unknown Venipuncture / Unknown 09/22/2025 10:18 AM EDT 09/22/2025 10:22 AM EDT Kg Mccollum MD LAB BLOOD ORDERABLES Final Result Performing Organization Address [facility] Phone Number [facility] [address] [place] [phone], [place] * Lipase (09/22/2025 10:18 AM EDT) Only the most recent of4 resultswithin the time period is included. Lipase 18 3 - 68 U/L 09/22/2025 11:31 AM EDT [facility] Blood PERIPHERAL BLOOD SPECIMEN / Unknown Venipuncture / Unknown 09/22/2025 10:18 AM EDT 09/22/2025 10:22 AM EDT Kg Mccollum MD LAB BLOOD ORDERABLES Final Result Performing Organization Address [facility] de Phone Number [facility] [address] [place] [phone], [place] * (ABNORMAL) Acetaminophen Level (09/22/2025 10:18 AM EDT) Acetaminophen Result,Blood <5(L) 10 - 30 ug/mL 09/22/2025 2:46 PM EDT [facility] Blood PERIPHERAL BLOOD SPECIMEN / Unknown Venipuncture / Unknown 09/22/2025 10:18 AM EDT 09/22/2025 10:22 AM EDT us Kg Mccollum MD LAB BLOOD ORDERABLES Final Result Performing Organization Address City/[facility]/ZIP Co de Phone Number [facility] [address] [place] [address], [place] * Salicylate Level (09/22/2025 10:18 AM EDT) Salicylate Level, Blood <1 <30 mg/dL 09/22/2025 2:46 PM EDT [facility] Blood PERIPHERAL BLOOD SPECIMEN / Unknown Venipuncture / Unknown 09/22/2025 10:18 AM EDT 09/22/2025 10:22 AM EDT us Kg Mccollum MD LAB BLOOD ORDERABLES Final Result Performing Organization Address [facility] Co de Phone Number [facility] [address] [place] [phone], [place] * (ABNORMAL) Comprehensive Metabolic Panel (09/22/2025 10:18 AM EDT) Only the most recent of10 resultswithin the time period is included. Sodium 144 135 - 146 mmol/L 09/22/2025 10:56 AM [facility] Potassium 3.6 3.4 - 5.2 mmol/L 09/22/2025 10:56 AM [facility] Comment:Samples tested in se rum may exhibit a higher potassium value than those tested on plasma. Our current range is based on plasma testing. Chloride 108 98 - 110 mmol/L 09/22/2025 10:56 AM T [facility] Total CO2/Bicarbonate 21(L) 24 - 32 mmol/L 09/22/2025 10:56 AM [facility] Anion Gap 15 2 - 15 mmol/L 09/22/2025 10:56 AM [facility] BUN 10 7 - 24 mg/dL 09/22/2025 10:56 AM [facility] Creatinine, Blood 0.80 0.60 - 1.30 mg/dL 09/22/2025 10:56 AM [facility] Glucose, Blood 117(H) 50 - 100 mg/dL 09/22/2025 10:56 AM [facility] Calcium 9.5 8.5 - 10.5 mg/dL 09/22/2025 10:56 AM [facility] Total Protein 7.7 6.2 - 8.2 g/dL 09/22/2025 10:56 AM [facility] Albumin, Blood 4.6 3.4 - 5.2 g/dL 09/22/2025 10:56 AM [facility] AST (SGOT) 24 11 - 40 U/L 09/22/2025 10:56 AM [facility] ALT (SGPT) 16 7 - 40 U/L 09/22/2025 10:56 AM [facility] Alkaline Phosphatase 54 40 - 130 U/L 09/22/2025 10:56 AM [facility] Total Bilirubin 0.4 0.2 - 1.2 mg/dL 09/22/2025 10:56 AM [facility] Estimated GFR(CKD-EPI) 96 mL/min/BSA 09/22/2025 10:56 AM [facility] Blood PERIPHERAL BLOOD SPECIMEN / Unknown Venipuncture / Unknown 09/22/2025 10:18 AM EDT 09/22/2025 10:22 AM EDT us Kg Mccollum MD LAB BLOOD ORDERABLES Final Result [facility] [address] [place] [address], [place] * Blue Top (09/03/2025 6:21 AM EDT) Only the most recent of4 resultswithin the time period is included. Blue Top Tube Received 09/03/2025 8:02 AM EDT [facility] Blood PERIPHERAL BLOOD SPECIMEN / Unknown Venipuncture / Unknown 09/03/2025 6:21 AM EDT 09/03/2025 6:24 AM EDT us Syed Fox MD LAB BLOOD ORDERABLES Final Res ult Performing Organization Address City/[facility]/ZIP Co de Phone Number [facility] [address] [place] [address], [place] * ECG 12 lead (09/03/2025 5:28 AM EDT) Only the most recent of7 resultswithin the time period is included. Ventricular Heart Rate 89 BPM EKG B[facility] MUSE WA Interval 171 ms EKG B[facility] MUSE QRSD Interval 102 ms EKG [facility] MUSE QT Interval 364 ms EKG [facility] MUSE QTC Interval 445 ms EKG [facility] MUSE P [place] 54 degrees EKG BUR MUSE R [place] -30 degrees EKG [facility] MUSE T Wave [place] 18 degrees EKG BUR MUSE 09/03/2025 5:28 AM EDT 09/03/2025 10:04 AM EDT Narrative EKG BUR MUSE - 09/03/2025 10:04 AM EDT SINUS RHYTHM Baseline artifact BORDERLINE LEFT AXIS DEVIATION [QRS AXIS < -20] BORDERLINE ECG Confirmed by Tc Paredes ([id number]) on 09/03/2025 10:04:01 AM Procedure Note Tc Paredes MD - 09/03/2025 SINUS RHYTHM Baseline artifact BORDERLINE LEFT AXIS DEVIATION [QRS AXIS < -20] BORDERLINE ECG Confirmed by Tc Paredes ([id number]) on 09/03/2025 10:04:01 AM us Syed Fox MD ECG ORDERABLES Final Result Performing Organization Address City/[facility] Co de Phone Number EKG BUR MUSE [address] [place] [phone] * MRI Brain Without Contrast (08/17/2025 10:54 AM EDT) Anatomical Region Laterality Modality Head Magnetic Resonan ce 08/17/2025 11:1 5 AM EDT Impressions 08/17/2025 11:18 AM EDT 1. No acute intracranial abnormality identified. 2. Additional chronic findings as above. Signed By: Celestino Rome on 08/17/2025 11:18 AM on [id number] Narrative 08/17/2025 11:18 AM EDT MRI HEAD WITHOUT CONTRAST HISTORY: speech difficulty TECHNIQUE: Magnetic resonance imaging of the brain was performed with T-1 FLAIR sagittal and diffusion weighted, fast FLAIR, fast T-2, and susceptibility weighted axial images. IV CONTRAST: None COMPARISON: CT and CTA of the head dated 08/16/2025. FINDINGS: HEMORRHAGE: No hemorrhage is identified. VENTRICLES: The ventricles are mildly dilated consistent with central atrophy. SULCI: The sulci are prominent consistent with mild atrophy. CEREBRUM: There are mild small rounded and patchy areas of increased T2 signal in the subcortical and periventricular white matter consistent with small vessel disease. No subacute infarct or mass effect is identified. BRAINSTEM: Unremarkable. CEREBELLUM: Unremarkable. THALAMI: Unremarkable. BASAL GANGLIA: The basal ganglia are symmetrical in signal. VESSELS: There are flow voids in the visualized internal carotid and basilar arteries. PITUITARY: Unremarkable. CRANIOCERVICAL JUNCTION: Unremarkable. SKULL: Unremarkable. SCALP: Unremarkable. PARANASAL SINUSES: The paranasal sinuses are clear. MASTOID AIR CELLS: Unremarkable. ADDITIONAL FINDINGS: None. Procedure Note Celestino Rome MD - 08/17/2025 MRI HEAD WITHOUT CONTRAST HISTORY: speech difficulty TECHNIQUE: Magnetic resonance imaging of the brain was performed with T-1 FLAIR sagittal and diffusion weighted, fast FLAIR, fast T-2, and susceptibility weighted axial images. IV CONTRAST: None COMPARISON: CT and CTA of the head dated 08/16/2025. FINDINGS: HEMORRHAGE: No hemorrhage is identified. VENTRICLES: The ventricles are mildly dilated consistent with central atrophy. SULCI: The sulci are prominent consistent with mild atrophy. CEREBRUM: There are mild small rounded and patchy areas of increased T2 signal in the subcortical and periventricular white matter consistent with small vessel disease. No subacute infarct or mass effect is identified. BRAINSTEM: Unremarkable. CEREBELLUM: Unremarkable. THALAMI: Unremarkable. BASAL GANGLIA: The basal ganglia are symmetrical in signal. VESSELS: There are flow voids in the visualized internal carotid and basilar arteries. PITUITARY: Unremarkable. CRANIOCERVICAL JUNCTION: Unremarkable. SKULL: Unremarkable. SCALP: Unremarkable. PARANASAL SINUSES: The paranasal sinuses are clear. MASTOID AIR CELLS: Unremarkable. ADDITIONAL FINDINGS: None. IMPRESSION: 1.No acute intracranial abnormality identified. 2.Additional chronic findings as above. Signed By: Celestino Rome on 08/17/2025 11:18 AM on [id number] Moris Carrasco MD IM MRI ORDERABLES Final Result * (ABNORMAL) CBC (08/17/2025 4:59 AM EDT) Only the most recent of3 resultswithin the time period is included. WBC 2.47(L) 3.90 - 10.80 K/uL 08/17/2025 5:50 AM [facility] RBC 3.33(L) 4.42 - 5.73 M/uL 08/17/2025 5:50 AM [facility] Hemoglobin 10.1(L) 14.0 - 17.3 g/dL 08/17/2025 5:50 AM [facility] Hematocrit 31.1(L) 40.1 - 51.0 % 08/17/2025 5:50 AM [facility] MCH 30.3 25.6 - 32.2 pg 08/17/2025 5:50 AM [facility] MCHC 32.5 32.0 - 36.0 g/dL 08/17/2025 5:50 AM [facility] MCV 93 83 - 96 fL 08/17/2025 5:50 AM [facility] RDW 15.7(H) 11.5 - 14.0 % 08/17/2025 5:50 AM [facility] Platelet Count 146(L) 154 - 369 K/uL 08/17/2025 5:50 AM [facility] Blood PERIPHERAL BLOOD SPECIMEN / Unknown Venipuncture / Unknown 08/17/2025 4:59 AM EDT 08/17/2025 5:44 AM EDT Moris Carrasco MD LAB BLOOD ORDERABLES Fatmata l Result Performing Organization Address City/[facility]/ZIP Co de Phone Number [facility] [address] [place] [phone], [place] * Phosphorus (08/17/2025 4:59 AM EDT) Only the most recent of2 resultswithin the time period is included. Phosphorus 3.7 2.3 - 4.6 mg/dL 08/17/2025 6:15 AM EDT [facility] Blood PERIPHERAL BLOOD SPECIMEN / Unknown Venipuncture / Unknown 08/17/2025 4:59 AM EDT 08/17/2025 5:45 AM EDT Moris Carrasco MD LAB BLOOD ORDERABLES Fatmata l Result Performing Organization Address [facility] Co de Phone Number [facility] [address] [place] [phone], [place] * (ABNORMAL) Lipid Panel (08/17/2025 4:59 AM EDT) Cholesterol 143 125 - 200 mg/dL 08/17/2025 6:15 AM EDT [facility] Triglycerides 86 55 - 150 mg/dL 08/17/2025 6:15 AM EDT [facility] HDL Cholesterol 74(H) 40 - 65 mg/dL 08/17/2025 6:15 AM EDT [facility] LDL Cholesterol 52 <=130 mg/dL 08/17/2025 6:15 AM EDT [facility] Blood PERIPHERAL BLOOD SPECIMEN / Unknown Venipuncture / Unknown 08/17/2025 4:59 AM EDT 08/17/2025 5:45 AM EDT Moris Carrasco MD LAB BLOOD ORDERABLES Fatmata l Result Performing Organization Address City/[facility]/ZIP Co de Phone Number [facility] [address] [place] [phone], [place] * Culture, Aerobic (Incl Gram) (08/17/2025 12:11 AM EDT) Only the most recent of2 resultswithin the time period is included. Culture Normal yue BG 08/19/2025 10:25 AM EDT [facility] Smear,Gram Stain No neutrophils seen 08/19/2025 10:25 AM EDT [facility] Smear,Gram Stain Rare Gram positive cocci in pairs 08/19/2025 10:25 AM EDT [facility] xOther HAND STRUCTURE / Unknown 08/17/2025 12:11 AM EDT 08/17/2025 12:11 AM EDT Moris Carrasco MD MICROBIOLOGY - GENERAL OR DERABLES Final Result Performing Organization Address City/[facility]/ZIP Co de Phone Number [facility] [phone] [place] [address], * CK (Creatine Kinase) (08/16/2025 6:55 PM EDT) Creatine Kinase Total (CK) 107 30 - 194 U/L 08/16/2025 7:27 PM EDT [facility] Blood PERIPHERAL BLOOD SPECIMEN / Unknown Venipuncture / Unknown 08/16/2025 6:55 PM EDT 08/16/2025 6:58 PM EDT Moris Carrasco MD LAB BLOOD ORDERABLES Fatmata l Result Performing Organization Address City/[facility]/ZIP Co de Phone Number [facility] [address] [place] [address], [place] * Ammonia (08/16/2025 6:55 PM EDT) Ammonia umol/L 10 10 - 42 umol/L 08/16/2025 7:27 PM EDT [facility] Blood PERIPHERAL BLOOD SPECIMEN / Unknown Venipuncture / Unknown 08/16/2025 6:55 PM EDT 08/16/2025 6:58 PM EDT Moris Carrasco MD LAB BLOOD ORDERABLES Fatmata l Result [facility] [address] [place] [address], [place] * CT Angiogram Head Neck : Arteriogram (08/16/2025 3:56 PM EDT) Anatomical Region Laterality Modality Computed Tomogra phy 08/16/2025 4:11 PM EDT Impressions 08/16/2025 4:18 PM EDT 1. No acute intracranial abnormality. If there remains clinical concern for recent infarct, consider MRI. 2. No acute large vessel occlusion, critical stenosis, or dissection. Signed By: Ilya Jane on 08/16/2025 4:18 PM on [id number] Narrative 08/16/2025 4:[address] HEAD, CTA HEAD AND NECK: 08/16/2025 INDICATION: altered mental status, difficulty with speech TECHNIQUE: Contiguous axial images of the vertex to the skull base without IV contrast. Contiguous axial images of the aortic arch to the vertex with IV contrast. Three-dimensional reformatted images were generated on dedicated workstation. This report is based on interpretation of all of these images. COMPARISON: 07/02/2025 FINDINGS: CT HEAD: Limited evaluation of the posterior fossa due to artifact. Within this limitation: There is no mass, hemorrhage or acute territorial infarct detected. Sulci, ventricles and cisterns are within normal limits. Orbits are unremarkable. Paranasal sinuses and mastoids are clear. No skull fracture or extracranial soft tissue swelling is detected. CTA NECK: The visualized portions of the arch as well as right common carotid, right subclavian, left common carotid and left subclavian arteries are normal caliber. The common carotid arteries and bifurcations are normal caliber. Mild stenosis in the bilateral extracranial internal carotid arteries, which are otherwise patent. Extracranial internal carotid artery stenosis estimates are based on use of distal ICA as the denominator as follows: MILD: Less than 50% narrowing MODERATE: 50-69% narrowing SEVERE: greater than 70% narrowing The vertebral arteries are codominant and unremarkable from origins to the level of skull base. Posterior fixation hardware noted in the included thoracic spine. CTA HEAD: Mild stenosis in the bilateral carotid siphons. Bilateral MCAs and ACAs are normal caliber. The right intracranial vertebral artery appears slightly hypoplastic. The basilar artery and bilateral boom tender are unremarkable. No intracranial aneurysm is detected. Venous enhancement is within normal limits for this technique. Procedure Note Ilya Jane MD - 08/16/2025 CT HEAD, CTA HEAD AND NECK: 08/16/2025 INDICATION: altered mental status, difficulty with speech TECHNIQUE: Contiguous axial images of the vertex to the skull base without IV contrast. Contiguous axial images of the aortic arch to the vertex with IV contrast. Three-dimensional reformatted images were generated on dedicated workstation. This report is based on interpretation of all of these images. COMPARISON: 07/02/2025 FINDINGS: CT HEAD: Limited evaluation of the posterior fossa due to artifact. Within this limitation: There is no mass, hemorrhage or acute territorial infarct detected. Sulci, ventricles and cisterns are within normal limits. Orbits are unremarkable. Paranasal sinuses and mastoids are clear. No skull fracture or extracranial soft tissue swelling is detected. CTA NECK: The visualized portions of the arch as well as right common carotid, right subclavian, left common carotid and left subclavian arteries are normal caliber. The common carotid arteries and bifurcations are normal caliber. Mild stenosis in the bilateral extracranial internal carotid arteries, which are otherwise patent. Extracranial internal carotid artery stenosis estimates are based on use of distal ICA as the denominator as follows: MILD: Less than 50% narrowing MODERATE: 50-69% narrowing SEVERE: greater than 70% narrowing The vertebral arteries are codominant and unremarkable from origins to the level of skull base. Posterior fixation hardware noted in the included thoracic spine. CTA HEAD: Mild stenosis in the bilateral carotid siphons. Bilateral MCAs and ACAs are normal caliber. The right intracranial vertebral artery appears slightly hypoplastic. The basilar artery and bilateral boom tender are unremarkable. No intracranial aneurysm is detected. Venous enhancement is within normal limits for this technique. IMPRESSION: 1.No acute intracranial abnormality. If there remains clinical concern for recent infarct, consider MRI. 2.No acute large vessel occlusion, critical stenosis, or dissection. Signed By: Ilya Jane on 08/16/2025 4:18 PM on [id number] Syed Fox MD IM CT ORDERABLES Final Result * Sedimentation Rate, Automated (08/16/2025 1:35 PM EDT) Pathologist [facility] Erythrocyte Sedimentation Rate (ESR) 16 1 - 17 mm/hr 08/16/2025 7:16 PM EDT [facility] Blood PERIPHERAL BLOOD SPECIMEN / Unknown Venipuncture / Unknown 08/16/2025 1:35 PM EDT 08/16/2025 1:38 PM EDT us Moris Carrasco MD LAB BLOOD ORDERABLES Fatmata l Result Performing Organization Address [facility] Co de Phone Number [facility] [address] [place] [address], [place] * Type and Screen (08/16/2025 1:32 PM EDT) Pathologist [facility] ABO and Rh A NEG 08/16/2025 2:47 PM EDT [facility] Antibody Screen NEG 2:47 PM EDT [facility] TS Expiration Date 08/19/2025 23:59 08/16/2025 2:47 PM EDT [facility] Blood Venipuncture / Unknown 08/16/2025 1:32 PM EDT 08/16/2025 1:40 PM EDT us Syed Fox MD BLOOD BANK TEST ORDERABLES Fin al Result Performing Organization Address [facility] Phone Number [facility] [address] [place] [phone], [place] * hs-Troponin T, 3hr (07/23/2025 6:18 PM EDT) [facility] Troponin T HS 16 <=19 ng/L 07/23/2025 7:00 PM EDT [facility] Blood PERIPHERAL BLOOD SPECIMEN / Unknown Venipuncture / Unknown 07/23/2025 6:18 PM EDT 07/23/2025 6:28 PM EDT us Pita Moore DO LAB BLOOD ORDERABLES Final Resu lt Performing Organization Address [facility]/ZIP Co de Phone Number [facility] [address] [place] [address], [place] * XR Chest 1 Vw Portable (07/23/2025 5:30 PM EDT) Only the most recent of2 resultswithin the time period is included. Anatomical Region Laterality Modality Chest Digital Radiogra phy 07/23/2025 10:5 1 PM EDT Impressions 07/23/2025 10:52 PM EDT Lungs/Pleura: No airspace consolidations. No pleural effusion or pneumothorax. Mediastinum: The cardiomediastinal contour is preserved. Osseous Structures: No acute displaced fracture or traumatic malalignment. Fixation hardware overlying the upper and lower spine. Signed By: Ilya Jane on 07/23/2025 10:52 PM on [id number] Narrative 07/23/2025 10:52 PM EDT CHEST 1 VIEW INDICATION: SOB COMPARISON: 07/02/2025 FINDINGS / Procedure Note Ilya Jane MD - 07/23/2025 CHEST 1 VIEW INDICATION: SOB COMPARISON: 07/02/2025 FINDINGS / IMPRESSION: Lungs/Pleura: No airspace consolidations. No pleural effusion or pneumothorax. Mediastinum: The cardiomediastinal contour is preserved. Osseous Structures: No acute displaced fracture or traumatic malalignment. Fixation hardware overlying the upper and lower spine. Signed By: Ilya Jane on 07/23/2025 10:52 PM on [id number] us Pita Moore DO IMG DIAGNOSTIC IMAGING ORDERABL ES Final Result * Hs-Troponin (with reflex 0, 1, +/-3 hours) (07/23/2025 3:27 PM EDT) Troponin T HS 17 <=19 ng/L 07/23/2025 5:39 PM EDT [facility] Blood PERIPHERAL BLOOD SPECIMEN / Unknown Venipuncture / Unknown 07/23/2025 3:27 PM EDT 07/23/2025 3:30 PM EDT us Pita Moore DO LAB BLOOD ORDERABLES Final Resu lt [facility] [address] [place] [phone], * Colonoscopy (07/21/2025 2:21 PM EDT) Anatomical Region Laterality Modality Endoscopy Narrative 07/21/2025 2:26 PM EDT Table formatting from the original result was not included. Impression Normal. 2 subcentimeter polyps Mild diverticulosis in the sigmoid colon and rectosigmoid Hemorrhoids Small seeds clogged the scope multiple time. Few areas with solid residue, couldn't clear completely . Small or flat polyps may have been missed. Recommendation Await pathology results Follow up with Referring Provider Repeat colonoscopy in 3 years, due: 07/20/2028 Continue medications Hold anticoagulation/antiplatelet for one day. Ok to resume tomorrow. Indication Abnormal CT scan, colon Proctitis Staff Staff Role Verito Villareal MD Proceduralist Rojas Fabian MD Anesthesiologist Medications See Anesthesia Record. Preprocedure A history and physical has been performed, and patient medication allergies have been reviewed. The patient's tolerance of previous anesthesia has been reviewed. The risks and benefits of the procedure and the sedation options and risks were discussed with the patient. All questions were answered and informed consent obtained. Details of the Procedure The patient underwent monitored anesthesia care, which was administered by an anesthesia professional. The patient's blood pressure, ECG, ETCO2, heart rate, oxygen, respirations and level of consciousness were monitored throughout the procedure. A digital rectal exam was performed. The scope was introduced through the anus and advanced to the cecum. Retroflexion was performed in the rectum. The quality of bowel preparation was evaluated using the [place] Bowel Preparation Scale with scores of: right colon = 2, transverse colon = 2, left colon = 2. The total BBPS score was 6. Bowel prep was adequate. The patient experienced no blood loss. The procedure was not difficult. The patient tolerated the procedure well. There were no apparent adverse events. Small seeds clogged the scope multiple time. Few areas with solid residue, couldn't clear and small or flat polyps may have been missed. Events Procedure Events Event Event Time ENDO SCOPE IN TIME 07/21/2025 2:07 PM ENDO CECUM REACHED 07/21/2025 2:11 PM ENDO SCOPE OUT TIME 07/21/2025 2:21 PM Findings Mucosa grossly normal through out. Scarring from previous ablation and radiation therapy noted in the rectum 5 mm polyp in the ascending colon; performed cold snare with complete en bloc removal and retrieved specimen One 2 mm polyp in the descending colon; performed cold forceps biopsy with complete en bloc removal Mild diverticulosis with small diverticula in the sigmoid colon and rectosigmoid Hemorrhoids Specimens ID Type Source Tests Collected by Time A : polyp Tissue Large Intestine, Right/Ascending Colon SURGICAL PATHOLOGY TISSUE EXAM Verito Villareal MD 07/21/2025 1410 B : polyp Tissue Large Intestine, Left/Descending Colon SURGICAL PATHOLOGY TISSUE EXAM Verito Villareal MD 07/21/2025 1419 Scopes [id number] us Trice Shaikh NP GI PROCEDURE ORDERABLES Final Result * Surgical Pathology Tissue Exam (07/21/2025 2:10 PM EDT) Case Report Surgical Pathology Report Case: [id number] Authorizing Provider: Verito Villareal MD Collected: 07/21/2025 02:10 PM Ordering Location: [facility] Received: 07/21/2025 03:13 PM Endoscopy Pathologist: Alton Weiner MD Specimens: A) - Large Intestine, Right/Ascendi ng Colon, polyp B) - Large Intestine, Left/Descendi ng Colon, polyp 07/22/2025 3:08 PM EDT [facility] Final Diagnosis A. Specimen designated ascending colon polyp : TUBULAR ADENOMA, fragments of. Diagnostic features of high-grade dysplasia are not present. The specimen includes non-adenomato us colonic mucosa. B. Specimen designated descending colon polyp : TUBULAR ADENOMA. Diagnostic features of high-grade dysplasia are not present. The specimen includes non-adenomato us colonic mucosa. 07/22/2025 3:08 PM EDT [facility] at 1508 EDT Clinical Information Diagnosis: R93.3-Abnorma l CT scan, colon K62.89-Procti tis 07/22/2025 3:08 PM EDT [facility] Gross Description A. Large Intestine, Right/Ascendi ng Colon, polyp Specimen is received fixed in formalin labeled with the patient's name Adolfo Zaragoza , medical record number and ascending colon polyp . Specimen consists of multiple kaur fragments of soft tissue and fecal material measuring measuring up to 0.8 cm in total aggregate. No stalks or bases are grossly identifiable. Specimen is entirely submitted in cassette A1. B. Large Intestine, Left/Descendi ng Colon, polyp Specimen is received fixed in formalin labeled the patient's name Adolfo Zaragoza , medical record number and descending colon polyp . Specimen consists of 2 pale-kaur fragments of soft tissue measuring 0.2 and 0.1 cm in greatest dimensions. No stalk or base is grossly identifiable. Specimen is entirely submitted in cassette B1. 07/22/2025 3:08 PM EDT [facility] Tissue ASCENDING COLON STRUCTURE / Unknown 07/21/2025 2:10 PM EDT 07/21/2025 3:13 PM EDT Tissue specimen (specimen) DESCENDING COLON STRUCTURE / Unknown 07/21/2025 2:19 PM EDT 07/21/2025 3:13 PM EDT us Verito Villareal MD PATHOLOGY/CYTOLOGY ORDERABLE S Final Result Performing Organization Address City/State/[facility] Co de Phone Number [facility] [address] [place] [phone], [place] * CT Abdomen Pelvis With Contrast (07/06/2025 11:44 PM EDT) Only the most recent of2 resultswithin the time period is included. Anatomical Region Laterality Modality Abdomen, Pelvis Computed Tomogra phy 07/06/2025 11:3 8 PM EDT Impressions 07/07/2025 12:28 AM EDT 1. There is still mild wall thickening of the distal colon and rectum probably representing a colitis and proctitis is may be slightly improved compared to the prior study. Colonic diverticulosis again seen without obvious acute diverticulitis. No free air or abscess. 2. Other findings as described. THIS DOCUMENT HAS BEEN ELECTRONICALLY SIGNED BY [facility] RADIOLOGIST VANITA LANDON MD Narrative 07/07/2025 12:28 AM EDT PROCEDURE INFORMATION: Exam: CT Abdomen And Pelvis With Contrast Exam date and time: 07/06/2025 11:38 PM Age: 69 years old Clinical indication: Other: Worsening abdominal pain, HX divertic; Prior surgery; Surgery date: 6+ months; Surgery type: Back SX TECHNIQUE: Imaging protocol: Computed tomography of the abdomen and pelvis with contrast. Radiation optimization: All CT scans at this facility use at least one of these dose optimization techniques: automated exposure control; mA and/or kV adjustment per patient size (includes targeted exams where dose is matched to clinical indication); or iterative reconstruction. Contrast material: IOHEXOL 350 MG IODINE/ML INTRAVENOUS SOLUTION; Contrast volume: 100 ml; Contrast route: IV; COMPARISON: CT ABDOMEN PELVIS W CONTRAST 07/03/2025 1:59 PM FINDINGS: Lungs: Minimal scattered subsegmental atelectasis or scar in the lung bases. Liver: Normal. No mass. Gallbladder and biliary ducts: Normal. No calcified stones. No ductal dilation. Pancreas: Normal. No ductal dilation. Spleen: Normal. No splenomegaly. Adrenal glands: Normal. No mass. Kidneys and ureters: Normal. No hydronephrosis. Stomach and bowel: Suggestion of mild rectal wall thickening again seen may be slightly improved.Colonic diverticulosis. Distal colon nondistended and mild distal colonic wall thickening again suggested may be slightly improved.No evidence of bowel obstruction. Appendix: No evidence of appendicitis. Intraperitoneal space: Unremarkable. No free air. No significant fluid collection. Vasculature: Minimal aortoiliac atherosclerotic disease without aneurysm. Lymph nodes: Unremarkable. No enlarged lymph nodes. Urinary bladder: Unremarkable as visualized. Reproductive: Brachytherapy prostate seeds. Bones/joints: Degenerative changes of the spine. Posterior interbody fusion hardware L2-L3. Soft tissues: Small fat-containing umbilical hernia. Procedure Note Vanita Burch MD - 07/07/2025 PROCEDURE INFORMATION: Exam: CT Abdomen And Pelvis With Contrast Exam date and time: 07/06/2025 11:38 PM Age: 69 years old Clinical indication: Other: Worsening abdominal pain, HX divertic; Prior surgery; Surgery date: 6+ months; Surgery type: Back SX TECHNIQUE: Imaging protocol: Computed tomography of the abdomen and pelvis withcontrast. Radiation optimization: All CT scans at this facility use at least one ofthese dose optimization techniques: automated exposure control; mA and/or kV adjustment per patient size (includes targeted exams where dose is matchedto clinical indication); or iterative reconstruction. Contrast material: IOHEXOL 350 MG IODINE/ML INTRAVENOUS SOLUTION; Contrast volume: 100 ml; Contrast route: IV; COMPARISON: CT ABDOMEN PELVIS W CONTRAST 07/03/2025 1:59 PM FINDINGS: Lungs: Minimal scattered subsegmental atelectasis or scar in the lungbases. Liver: Normal. No mass. Gallbladder and biliary ducts: Normal. No calcified stones. No ductaldilation. Pancreas: Normal. No ductal dilation. Spleen: Normal. No splenomegaly. Adrenal glands: Normal. No mass. Kidneys and ureters: Normal. No hydronephrosis. Stomach and bowel: Suggestion of mild rectal wall thickening again seenmay be slightly improved.Colonic diverticulosis. Distal colon nondistended andmild distal colonic wall thickening again suggested may be slightly improved.No evidence of bowel obstruction. Appendix: No evidence of appendicitis. Intraperitoneal space: Unremarkable. No free air. No significant fluid collection. Vasculature: Minimal aortoiliac atherosclerotic disease without aneurysm. Lymph nodes: Unremarkable. No enlarged lymph nodes. Urinary bladder: Unremarkable as visualized. Reproductive: Brachytherapy prostate seeds. Bones/joints: Degenerative changes of the spine. Posterior interbodyfusion hardware L2-L3. Soft tissues: Small fat-containing umbilical hernia. IMPRESSION: 1. There is still mild wall thickening of the distal colon and rectum probably representing a colitis and proctitis is may be slightly improved compared to the prior study. Colonic diverticulosis again seen withoutobvious acute diverticulitis. No free air or abscess. 2. Other findings as described. THIS DOCUMENT HAS BEEN ELECTRONICALLY SIGNED BY [facility] RADIOLOGIST MD WALLY Shantel Gao NP IM CT ORDERABLES Final Resu lt * (ABNORMAL) Iron Profile (07/04/2025 8:27 AM EDT) Iron,Serum/Plasm a 45(L) 50 - 170 ug/dL 07/04/2025 10:16 AM [facility] Transferrin 199 175 - 340 mg/dL 07/04/2025 10:16 AM [facility] TIBC, Calculated 279 250 - 430 ug/dL 07/04/2025 10:16 AM [facility] Iron Saturation % 16 15 - 50 % 07/04/2025 10:16 AM EDT [facility] Ferritin 61 41 - 306 ng/mL 07/04/2025 10:16 AM EDT [facility] Unsaturated Iron Binding Capacity 234 112 - 347 ug/dL 07/04/2025 10:16 AM EDT [facility] Blood PERIPHERAL BLOOD SPECIMEN / Unknown Venipuncture / Unknown 07/04/2025 8:27 AM EDT 07/04/2025 8:42 AM EDT Fallon Padilla MD LAB BLOOD ORDERABLES Final Resul t Performing Organization Address City/[facility]/ZIP Co de Phone Number [facility] [address] [place] [phone], [place] * Lavender Top (07/04/2025 8:27 AM EDT) Lav Top Tube Received 07/04/2025 10:02 AM EDT [facility] Blood PERIPHERAL BLOOD SPECIMEN / Unknown Venipuncture / Unknown 07/04/2025 8:27 AM EDT 07/04/2025 8:43 AM EDT Fallon Padilla MD LAB BLOOD ORDERABLES Final Resul t Performing Organization Address [facility] Co de Phone Number [facility] [address] [place] [phone], [place] * (ABNORMAL) C-Reactive Protein (07/04/2025 8:27 AM EDT) C-Reactive Protein (CRP) 8.0(H) <5.0 mg/L 07/04/2025 10:16 AM EDT [facility] Blood PERIPHERAL BLOOD SPECIMEN / Unknown Venipuncture / Unknown 07/04/2025 8:27 AM EDT 07/04/2025 8:42 AM EDT Fallon Padilla MD LAB BLOOD ORDERABLES Final Resul t Performing Organization Address City/[facility] Co de Phone Number [facility] [address] [place] [phone], [place] * (ABNORMAL) Folate (07/04/2025 8:27 AM EDT) Folate >20.0(H) 2.8 - 20.0 ng/mL 07/04/2025 10:16 AM EDT [facility] Blood PERIPHERAL BLOOD SPECIMEN / Unknown Venipuncture / Unknown 07/04/2025 8:27 AM EDT 07/04/2025 8:42 AM EDT Fallon Padilla MD LAB BLOOD ORDERABLES Final Resul t Performing Organization Address [facility] Co de Phone Number [facility] [address] [place] [address], * (ABNORMAL) Vitamin B12 (07/04/2025 8:27 AM EDT) Vitamin B12 Level 281(L) 300 - 2,000 pg/mL 07/04/2025 10:16 AM EDT [facility] Blood PERIPHERAL BLOOD SPECIMEN / Unknown Venipuncture / Unknown 07/04/2025 8:27 AM EDT 07/04/2025 8:42 AM EDT Fallon Padilla MD LAB BLOOD ORDERABLES Final Resul t Performing Organization Address [facility] [place] [address], * (ABNORMAL) Vitamin D, 25-OH (07/03/2025 5:33 AM EDT) `Vitamin D 25-OH Level 8(L) 30 - 60 ng/mL 07/03/2025 10:26 AM EDT [facility] Comment: Deficient: <20 ng/ml Borderline: 20-29 ng/ml Sufficient: 30-100 ng/ml Potential for Toxicity: >100 ng/ml Blood PERIPHERAL BLOOD SPECIMEN / Unknown Venipuncture / Unknown 07/03/2025 5:33 AM EDT 07/03/2025 5:56 AM EDT Fallon Padilla MD LAB BLOOD ORDERABLES Final Resul t [facility] [address] [place] [address], [place] * XR Hip Left 1 or 2 VW With AP Pelvis (07/03/2025 12:52 AM EDT) Anatomical Region Laterality Modality Pelvis, Hip Left Digital Radiogra phy 07/03/2025 7:21 AM EDT Impressions 07/03/2025 7:23 AM EDT No acute osseous abnormality. Signed By: Alonso Marie on 07/03/2025 7:23 AM on [id number] Narrative 07/03/2025 7:23 AM EDT XR HIP LEFT 1 OR 2 VW W AP PELVIS HISTORY: pain sp fall COMPARISON: Multiple prior radiograph and CTs. FINDINGS: The bones, soft tissues and articulations maintain an age-appropriate appearance. No fracture is identified. Mild, symmetric joint space narrowing at both hips. Multiple enthesophytes, most notable at left greater trochanter. Lower lumbar degenerative changes and transitional lumbosacral vertebral architecture. Soft tissue anchors and fiducial markers again noted. Procedure Note Alonso Marie MD - 07/03/2025 XR HIP LEFT 1 OR 2 VW W AP PELVIS HISTORY: pain sp fall COMPARISON: Multiple prior radiograph and CTs. FINDINGS: The bones, soft tissues and articulations maintain an age-appropriate appearance. No fracture is identified. Mild, symmetric joint space narrowing at both hips. Multiple enthesophytes, most notable at left greater trochanter. Lower lumbar degenerative changes and transitional lumbosacral vertebral architecture. Soft tissue anchors and fiducial markers again noted. IMPRESSION: No acute osseous abnormality. Signed By: Alonso Marie on 07/03/2025 7:23 AM on [id number] us Tiago Haider MD IMG DIAGNOSTIC IMAGING ORDERABL ES Final Result * XR Wrist 3+ VW Left (07/03/2025 12:52 AM EDT) Anatomical Region Laterality Modality Wrist Left Digital Radiogra phy 07/03/2025 7:21 AM EDT Impressions 07/03/2025 7:23 AM EDT No displaced fractures. Fragmented olecranon spur of unknown acuity. Focused examination recommended to exclude acute process. Signed By: Alonso Marie on 07/03/2025 7:23 AM on [id number] Narrative 07/03/2025 7:23 AM EDT XR WRIST 3+ VW LEFT, XR FOREARM 2 VW LEFT HISTORY: pain sp fall COMPARISON: None. FINDINGS: LEFT WRIST 4 VIEWS The bones, soft tissues and articulations maintain an age-appropriate appearance. LEFT FOREARM 2 VIEWS The bones, soft tissues and articulations maintain an age-appropriate appearance. There is a fragmented olecranon spur of unknown acuity. Procedure Note Alonso Marie MD - 07/03/2025 XR WRIST 3+ VW LEFT, XR FOREARM 2 VW LEFT HISTORY: pain sp fall COMPARISON: None. FINDINGS: LEFT WRIST 4 VIEWS The bones, soft tissues and articulations maintain an age-appropriate appearance. LEFT FOREARM 2 VIEWS The bones, soft tissues and articulations maintain an age-appropriate appearance. There is a fragmented olecranon spur of unknown acuity. IMPRESSION: No displaced fractures. Fragmented olecranon spur of unknown acuity. Focused examination recommended to exclude acute process. Signed By: Alonso Marie on 07/03/2025 7:23 AM on [id number] Tiago Haider MD IMG DIAGNOSTIC IMAGING ORDERABL ES Final Result * XR Forearm 2 VW Left (07/03/2025 12:52 AM EDT) Anatomical Region Laterality Modality Forearm Left Digital Radiogra phy 07/03/2025 7:21 AM EDT Impressions 07/03/2025 7:23 AM EDT No displaced fractures. Fragmented olecranon spur of unknown acuity. Focused examination recommended to exclude acute process. Signed By: Alonso Marie on 07/03/2025 7:23 AM on [id number] Narrative 07/03/2025 7:23 AM EDT XR WRIST 3+ VW LEFT, XR FOREARM 2 VW LEFT HISTORY: pain sp fall COMPARISON: None. FINDINGS: LEFT WRIST 4 VIEWS The bones, soft tissues and articulations maintain an age-appropriate appearance. LEFT FOREARM 2 VIEWS The bones, soft tissues and articulations maintain an age-appropriate appearance. There is a fragmented olecranon spur of unknown acuity. Procedure Note Alonso Marie MD - 07/03/2025 XR WRIST 3+ VW LEFT, XR FOREARM 2 VW LEFT HISTORY: pain sp fall COMPARISON: None. FINDINGS: LEFT WRIST 4 VIEWS The bones, soft tissues and articulations maintain an age-appropriate appearance. LEFT FOREARM 2 VIEWS The bones, soft tissues and articulations maintain an age-appropriate appearance. There is a fragmented olecranon spur of unknown acuity. IMPRESSION: No displaced fractures. Fragmented olecranon spur of unknown acuity. Focused examination recommended to exclude acute process. Signed By: Alonso Marie on 07/03/2025 7:23 AM on [id number] us Tiago Haider MD IMG DIAGNOSTIC IMAGING ORDERABL ES Final Result * CT Cervical Spine Without Contrast (07/02/2025 11:46 PM EDT) Anatomical Region Laterality Modality Cervical Spine Computed Tomogra phy 07/02/2025 11:4 0 PM EDT Impressions 07/02/2025 11:54 PM EDT 1. No acute fracture. 2. Degenerative changes of the spine. THIS DOCUMENT HAS BEEN ELECTRONICALLY SIGNED BY [facility] RADIOLOGIST JUAN ONEAL MD Narrative 07/02/2025 11:54 PM EDT PROCEDURE INFORMATION: Exam: CT Cervical Spine Without Contrast Exam date and time: 07/02/2025 11:40 PM Age: 69 years old Clinical indication: Injury or trauma; Fall; Fracture, traumatic injury; Prior surgery TECHNIQUE: Imaging protocol: Computed tomography of the cervical spine without contrast. Radiation optimization: All CT scans at this facility use at least one of these dose optimization techniques: automated exposure control; mA and/or kV adjustment per patient size (includes targeted exams where dose is matched to clinical indication); or iterative reconstruction. COMPARISON: CT CERVICAL SPINE WO CONTRAST 02/10/2025 10:27 AM FINDINGS: Bones: No acute fracture. Normal alignment. There is degenerative changes of the cervical spine. Although limited, no evidence for significant central canal stenosis. Severe left neural foraminal stenosis at C2-C3 and C3-C4. Moderate left neural foraminal stenosis at C4-C5. Lungs: No focal consolidation of the lung apices. Soft tissues: No prevertebral soft tissue swelling. Procedure Note Juan Oneal MD - 07/02/2025 PROCEDURE INFORMATION: Exam: CT Cervical Spine Without Contrast Exam date and time: 07/02/2025 11:40 PM Age: 69 years old Clinical indication: Injury or trauma; Fall; Fracture, traumatic injury;Prior surgery TECHNIQUE: Imaging protocol: Computed tomography of the cervical spine withoutcontrast. Radiation optimization: All CT scans at this facility use at least one ofthese dose optimization techniques: automated exposure control; mA and/or kV adjustment per patient size (includes targeted exams where dose is matchedto clinical indication); or iterative reconstruction. COMPARISON: CT CERVICAL SPINE WO CONTRAST 02/10/2025 10:27 AM FINDINGS: Bones: No acute fracture. Normal alignment. There is degenerative changesof the cervical spine. Although limited, no evidence for significant centralcanal stenosis. Severe left neural foraminal stenosis at C2-C3 and C3-C4.Moderate left neural foraminal stenosis at C4-C5. Lungs: No focal consolidation of the lung apices. Soft tissues: No prevertebral soft tissue swelling. IMPRESSION: 1. No acute fracture. 2. Degenerative changes of the spine. THIS DOCUMENT HAS BEEN ELECTRONICALLY SIGNED BY [facility] RADIOLOGIST MD PHILLY Tiago Haider MD IM CT ORDERABLES Final Result * Hepatic Function Panel (07/02/2025 6:55 AM EDT) Total Protein 8.2 6.2 - 8.2 g/dL 07/02/2025 7:39 AM [facility] Albumin, Blood 4.8 3.4 - 5.2 g/dL 07/02/2025 7:39 AM [facility] Globulin Result 3.4 2.0 - 4.0 g/dL 07/02/2025 7:39 AM [facility] Total Bilirubin 1.1 0.2 - 1.2 mg/dL 07/02/2025 7:39 AM [facility] Direct Bilirubin 0.4 0.1 - 0.5 mg/dL 07/02/2025 7:39 AM [facility] Alkaline Phosphatase 71 40 - 130 U/L 07/02/2025 7:39 AM [facility] AST (SGOT) 33 11 - 40 U/L 07/02/2025 7:39 AM [facility] ALT (SGPT) 24 7 - 40 U/L 07/02/2025 7:39 AM [facility] Blood PERIPHERAL BLOOD SPECIMEN / Unknown Venipuncture / Unknown 07/02/2025 6:55 AM EDT 07/02/2025 6:55 AM EDT us Syed Fox MD LAB BLOOD ORDERABLES Final Res ult [facility] [address] [place] [address], * (ABNORMAL) Differential (06/23/2025 6:36 AM EDT) WBC 3.09(L) 3.90 - 10.80 K/uL 06/23/2025 8:16 AM [facility] Neutrophil 49 % 06/23/2025 8:16 AM [facility] Lymphocyte 26 % 06/23/2025 8:16 AM [facility] Monocyte 8 % 06/23/2025 8:16 AM [facility] Eosinophil 13 % 06/23/2025 8:16 AM [facility] Basophil 1 0 - 3 % 06/23/2025 8:16 AM [facility] Atypical Lymphocyte 3 0 - 5 % 06/23/2025 8:16 AM [facility] Prolymphocyte 06/23/2025 8:16 AM [facility] Absolute Neutrophil Count 1.51(L) 1.68 - 7.99 K/uL 06/23/2025 8:16 AM [facility] Absolute Lymphocyte Count 0.90 0.66 - 4.75 K/uL 06/23/2025 8:16 AM [facility] Absolute Monocyte Count 0.25 0.16 - 1.40 K/uL 06/23/2025 8:16 AM [facility] Absolute Eosinophil Count 0.40 0.00 - 0.60 K/uL 06/23/2025 8:16 AM EDT [facility] Absolute Basophil Count 0.03 0.00 - 0.32 K/uL 06/23/2025 8:16 AM EDT [facility] Blood PERIPHERAL BLOOD SPECIMEN / Unknown Venipuncture / Unknown 06/23/2025 6:36 AM EDT 06/23/2025 6:56 AM EDT us Vinny Rodas MD LAB BLOOD ORDERABLES Fatmata l Result [facility] [address] [place] [address], [place] from Last 3 Months Insurance MEDICARE [facility] MEDICARE [facility] MEDICARE [facility] Advance Directives Documents on File Type Date Recorded Patient Data Entry Expl anation Health Care Proxy 09/23/2024 10:18 AM Roxanna lozano Health Care Proxy 07/02/2021 7:01 AM Health Care Proxy * Full Code (Latest Code Status on File) Date Activated Date Inactivated Comments 09/22/2025 3:58 PM Question Answer Comments Discussed with/per: Patient * Full Code Date Activated Date Inactivated Comments 08/16/2025 6:31 PM 09/03/2025 5:17 AM Question Answer Comments Discussed with/per: Patient * Full Code Date Activated Date Inactivated Comments 07/07/2025 2:31 PM 07/23/2025 3:04 PM Question Answer Comments Discussed with/per: Patient * Full Code Date Activated Date Inactivated Comments 07/03/2025 3:27 AM 07/06/2025 7:50 PM Question Answer Comments Discussed with/per: Patient * Full Code Date Activated Date Inactivated Comments 06/22/2025 12:06 AM 07/02/2025 6:18 AM Question Answer Comments Discussed with/per: Patient Healthcare Agents on File Name Relationship Healthcare Agent Relationsak p Communication Roxanna Zaragoza [facility] Care Agent [facility] Care Agent - Alternat e Care Teams Chartered Accountant Relationship Specialty Start Date End Date Ilya Gusman MD [address] [place] [phone] PCP - General 02/12/24
--- OUTSIDE RECORDS SUMMARY | 2025-09-23 20:58 | XMS_ITS | Encounter Summary ---
Author Organization [facility] Address [address] [place] [address] Phone Care Team Providers Care Record Tester Name Role Phone Zehra Galarza MD Primary Care Provider [phone] Reason for Visit * Reason Onset Date Comments Med Refill 05/27/2024 Encounter Details Date Type Department Care Team (Late st Contact Info) Description 05/27/[address] [facility] - Internal Medicine [address] [place] [phone] Zehra Galarza MD [address] [place] [phone] Med Refill Social History Tobacco Use [...] encounter Miscellaneous Notes * Telephone Encounter - Patricia Gallegos MA - 05/28/2024 1:24 PM EDT Lisinopril 2.5mg bid prescribed in recent hosp 15 for 7 days, Adivise if continue Pt is not at goal (BP's under 140/90) Last OV with PCP/APC: 05/17/24 pcp Future Appointments Date Time Provider Department Center 06/22/2024 11:15 AM Gaetano Bach MD [facility] 11/04/2024 1:00 PM Flaquita Paige, LISA [facility]NG IM [facility] Last BMP Results: Lab Results Component Value Date GLUCOSE 105 (H) 12/21/2023 CALCIUM 9.1 12/21/2023 NA 144 12/21/2023 K 4.4 12/26/2023 CO2 25 12/21/2023 CL 109 12/21/2023 BUN 14 12/21/2023 CREAT 0.9 12/26/2023 BP Readings from Last 5 Encounters: 05/17/24 (!) 110/58 04/28/24 102/78 04/21/24 124/78 03/22/24 (!) 173/122 12/26/23 (!) 152/86 Med not pended Naomi Gallegos/refill specialist * Telephone Encounter - Patricia Gallegos MA - 05/28/2024 1:24 PM EDTFrom: Adolfo Zaragoza To: Office of ZEHRA GALARZA Sent: 05/27/2024 5:00 PM EDT Subject: Medication Renewal Request Refills have been requested for the following medications: Other - lisinopril Preferred pharmacy: [facility] - [place], [place] - [address] [facility] Medication renewals requested in this message routed separately: HYDROmorphone (DILAUDID) 4 MG tablet [Ileana De Dios] documented in this encounter Plan of Treatment Upcoming Encounters Date Type Department Care Team (Late st Contact Info) Description 10/06/2025 10:45 AM EST Office Visit [facility] - Internal Medicine [address] [place] [phone] Zehra Galarza MD [address] [place] [phone] Christophe Dailey MD [address] [place] [phone] 01/18/2026 1:00 PM EST Office Visit [facility] [address] [place] [phone] Porsha Marsh, MARILIA [address] [place] [phone] 02/22/2026 11:00 AM EDT Office Visit [facility] [address] [place] [address] [address] [place] [phone] Alonso Bae MD [address] [place] [address] [address] [place] [address] 07/17/2026 2:00 PM EDT Office Visit [facility] - Internal Medicine [address] [place] [phone] Zehra Galarza MD [address] [place] [phone] 07/19/2026 11:40 AM EDT Office Visit [facility] [address] [place] [phone] Yesi Perez MD [address] [place] [phone] documented as of this encounter Visit Diagnoses Not on filedocumented in this encounter Additional Health Concerns Infection Onset Date Last Indicated Resolved Time C difficile Rule-Out 11/01/2024 11/02/2024 024 9:43 AM EST Assessment Noted Time PHQ-9 Depression Total Score: 6 04/28/20 24 1:53 PM EDT documented as of this encounter Care Teams Record Tester Relationship Specialty Start Date End Date Zehra Galarza MD [address] [place] [phone] PCP - General 05/14/17 [facility] 09/01/25 documented as of this encounter
--- OUTSIDE RECORDS SUMMARY | 2025-09-23 20:58 | XMS_ITS | Encounter Summary ---
Author Organization [facility] Address [address] [place] [address] Phone Care Team Providers Care Demolition Expert Name Role Phone Ilya Gusman MD Primary Care Provider [phone] Encounter Details Date Type Department Care Team (Late Contact Info) Description 04/06/2024 Scanned Document [facility] - Health Information Department [address] [place] [phone] Scan, No Provider Available [address] [place] [address] [place] [address] <No scans attached> Social History Tobacco Use [...] Visit [facility] - Internal Medicine [address] [place] [phone] Ilya Gusman MD [address] [place] [phone] Christophe Dailey MD [address] [place] [phone] 01/18/2026 1:00 PM EST Office Visit [facility] [address] [place] [phone] Porsha Marsh, WELDING MACHINE OPERATOR [employer] [address] [place] [phone] 02/22/2026 11:00 AM EDT Office Visit [facility] [address] [place] [address] [address] [place] [phone] Alonso Bae MD [address] [place] [address] [address] [place] [address] 07/17/2026 2:00 PM EDT Office Visit [facility] - Internal Medicine [address] [place] [phone] Ilya Gusman MD [address] [place] [phone] 07/19/2026 11:40 AM EDT Office Visit [facility] [address] [place] [phone] Yesi Perez MD [address] [place] [phone] documented as of this encounter Visit Diagnoses Not on filedocumented in this encounter Additional Health Concerns Infection Onset Date Last Indicated Resolved Time C difficile Rule-Out 11/01/2024 11/02/2024 024 9:43 AM EST Assessment Noted Time PHQ-9 Depression Total Score: 9 06/05/20 20 9:52 AM EDT documented as of this encounter Care Teams Demolition Expert Relationship Specialty Start Date End Date Ilya Gusman MD [address] [place] [address] [phone] PCP - General 05/14/17 [facility] 09/01/25 documented as of this encounter
--- OUTSIDE RECORDS SUMMARY | 2025-09-23 20:58 | XMS_ITS | Encounter Summary ---
Author Organization [facility] Address [address] [place] [address] Phone Care Team Providers Care Weight Loss Sales Consultant Name Role Phone Ilya Gusman MD Primary Care Provider [phone] Encounter Details Date Type Department Care Team (Late st Contact Info) Description 04/19/2021 Scanned Document [facility] - Health Information Department [address] [place], [place] [phone] Scan, No Provider Available [address] [facility] [place] [address] <No scans attached> Social History Tobacco Use [...] [facility] - Internal Medicine [address] [place] [phone] Ilya Gusman MD [address] [place] [phone] Christophe Dailey MD [address] [place] [phone] 01/18/2026 1:00 PM EST Office Visit [facility] [address] [place] [phone] Porsha Marsh, TUMBLE TAILSTOCK TURRET LATHE OPERATOR [address] [place] [phone] 02/22/2026 11:00 AM EDT Office Visit [facility] [address] [place] [address] [address] [place] [phone] Alonso Bae MD [address] [place] [address] [address] [place] [address] 07/17/2026 2:00 PM EDT Office Visit [facility] - Internal Medicine [address] [place] [phone] Ilya Gusman MD [address] [place] [phone] 07/19/2026 11:40 AM EDT Office Visit [facility] [address] [place] [phone] Yesi ePrez MD [address] [place] [phone] documented as of this encounter Visit Diagnoses [...] documented as of this encounter Care Teams Weight Loss Sales Consultant Relationship Specialty Start Date End Date Ilya Gusman MD [address] [place] [phone] PCP - General 05/14/17 [facility] 09/01/25 documented as of this encounter
--- OUTSIDE RECORDS SUMMARY | 2025-09-23 20:58 | XMS_ITS | Encounter Summary ---
Author Organization [facility] ystem Address [address] [place] [address] Phone Care Team Providers Care Pastoral Ministries Professor Name Role Phone Ilya Gusman MD Primary Care Provider [phone] Encounter Details Date Type Department Care Team (Late Contact Info) Description 05/09/[address] [facility] - Health Information Department [address] [place] [phone] Scan, No Provider Available [address] [place] [address] [place] [address] <No scans attached> Social History Tobacco Use [...] Upcoming Encounters Date Type Department Care Team ([facility] Contact Info) Description 10/06/2025 10:45 AM EST Office Visit [facility] - Internal Medicine [address] [place] [phone] Ilya Gusman MD [address] [place] [phone] Christophe Dailey MD [address] [place] [address] [phone] 01/18/2026 1:00 PM EST Office Visit [facility] [address] [place] [address] Porsha Marsh, BALER [address] [place] [address] 02/22/2026 11:00 AM EDT Office Visit [facility] [address] [place] [address] [address] [place] [phone] Alonso Bae MD [address] [place] [address] [address] [place] [address] 07/17/2026 2:00 PM EDT Office Visit [facility] - Internal Medicine [address] [place] [phone] Ilya Gusman MD [address] [place] [phone] 07/19/2026 11:40 AM EDT Office Visit [facility] [address] [place] [address] Yesi Perez MD [address] [place] [address] documented as of this encounter Visit Diagnoses Not on filedocumented in this encounter Additional Health Concerns Infection Onset Date Last Indicated Resolved Time C difficile Rule-Out 11/01/2024 11/02/2024 024 9:43 AM EST Assessment Noted Time PHQ-9 Depression Total Score: 6 04/28/20 24 1:53 PM EDT documented as of this encounter Care Teams Pastoral Ministries Professor Relationship Specialty Start Date End Date Ilya Gusman MD [address] [place] [address] [phone] PCP - General 05/14/17 [facility] 09/01/25 documented as of this encounter
--- OUTSIDE RECORDS SUMMARY | 2025-09-23 20:58 | XMS_ITS | Encounter Summary ---
Author Organization [facility] Address [address] [place] [address] Phone Care Team Providers Care It Coordinator Name Role Phone Ilya Gusman MD Primary Care Provider [phone] Encounter Details Date Type Department Care Team ([facility] Contact Info) Description 03/25/2024 Orders Only [facility] - Health Information Department [address] [place] [phone] Scan, No Provider Available [address] [place] [address] Dr. Eleazar [place] [phone] Social History Tobacco Use Types Packs/Day Years [...] 10:45 AM EST Office Visit [facility] - Internal Medicine [address] [place] [phone] Ilya Gusman MD [address] [place] [phone] Christophe Dailey MD [address] [place] [phone] 01/18/2026 1:00 PM EST Office Visit [facility] [address] [place] [address] Porsha Marsh, REEFER ENGINEER [address] [place] [address] 02/22/2026 11:00 AM EDT Office Visit [facility] [address] [place] [address] [address] [place] [phone] Alonso Bae MD [address] [place] [address] [address] [place] [address] 07/17/2026 2:00 PM EDT Office Visit [facility] - Internal Medicine [address] [place] [phone] Ilya Gusman MD [address] [place] [phone] 07/19/2026 11:40 AM EDT Office Visit [address] [address] Yesi Perez MD [address] [place] [phone] documented as of this encounter Procedures Procedure Name Priority Date/Time Associated Diagnosis Comments CT ABDOMEN PELVIS W CONTRAST Routine 03/23/2024 9:25 AM EDT documented in this encounter Results * CT abdomen pelvis with contrast per algorithm (03/23/2024 9:25 AM EDT) Anatomical Region Laterality Modality Body [...] documented as of this encounter Care Teams It Coordinator Relationship Specialty Start Date End Date Ilya Gusman MD [address] [place] [phone] PCP - General 05/14/17 [facility] 09/01/25 documented as of this encounter
--- OUTSIDE RECORDS SUMMARY | 2025-09-23 20:58 | XMS_ITS | Encounter Summary ---
Author Organization [facility] ystem Address [address] [place] [address] Phone Care Team Providers Care Rubber Tire And Tubes Supervisor Name Role Phone Ilya Gusman MD Primary Care Provider [phone] Encounter Details Date Type Department Care Team ([facility] Contact Info) Description 05/14/2024 Orders Only [facility] - Health Information Department [address] [place] [phone] Scan, No Provider Available [address] [place] [address] Dr. Bush [place] [phone] Social History Tobacco Use Types Packs/Day Years [...] Encounters Date Type Department Care Team ([facility] Contact Info) Description 10/06/2025 10:45 AM EST Office Visit [facility] - Internal Medicine [address] [place] [address] [phone] Ilya Gusman MD [address] [place] [phone] Christophe Dailey MD [address] [place] [phone] 01/18/2026 1:00 PM EST Office Visit [address] [address] Porsha Marsh, CERAMIC SPRAYER [address] [place] [address] 02/22/2026 11:00 AM EDT Office Visit [facility] [address] [place] [address] [address] [place] [phone] Alonso Bae MD [address] [place] [address] [address] [place] [address] 07/17/2026 2:00 PM EDT Office Visit [facility] - Internal Medicine [address] [place] [address] [phone] Ilya Gusman MD [address] [place] [phone] 07/19/2026 11:40 AM EDT Office Visit [address] [address] Yesi Perez MD [address] [place] [address] documented as of this encounter Procedures Procedure Name Priority Date/Time Associated Diagnosis Comments HM COLONOSCOPY Routine 05/11/2024 11:59 AM EDT documented in this encounter Results * Hm Colonoscopy (05/11/2024 11:59 AM EDT) [...] documented as of this encounter Care Teams Rubber Tire And Tubes Supervisor Relationship Specialty Start Date End Date Ilya Gusman MD [address] [place] [address] [phone] PCP - General 05/14/17 [facility] 09/01/25 documented as of this encounter
--- OUTSIDE RECORDS SUMMARY | 2025-09-23 20:58 | XMS_ITS | Encounter Summary ---
Author Organization [facility] ystem Address [address] [place] [address] Phone Care Team Providers Care Waste Treatment Operator Name Role Phone Ilya Gusman MD Primary Care Provider [phone] Encounter Details Date Type Department Care Team ([facility] Contact Info) Description 04/08/2024 Orders Only [facility] - Health Information Department [address] [place] [phone] Scan, No Provider Available [address] [place] [address] Dr. Eleazar [place] [phone] Social History Tobacco Use Types Packs/Day Years [...] Upcoming Encounters Date Type Department Care Team ([facility] Contact Info) Description 10/06/2025 10:45 AM EST Office Visit [facility] - Internal Medicine [address] [place] [phone] Ilya Gusman MD [address] [place] [phone] Christophe Dailey MD [address] [place] [address] [phone] 01/18/2026 1:00 PM EST Office Visit [facility] [address] [place] [address] Porsha Marsh, ANIMAL HUSBANDRY MANAGER [address] [place] [address] 02/22/2026 11:00 AM EDT Office Visit [facility] [address] [place] [address] [address] [place] [phone] Alonso Bae MD [address] [place] [address] [address] [place] [address] 07/17/2026 2:00 PM EDT Office Visit [facility] - Internal Medicine [address] [place] [address] [phone] Ilya Gusman MD [address] [place] [phone] 07/19/2026 11:40 AM EDT Office Visit [facility] [address] [place] [address] Yesi Perez MD [address] [place] [address] documented as of this encounter Procedures Procedure Name Priority Date/Time Associated Diagnosis Comments CT ANGIOGRAM CHEST PULMONARY EMBOLISM W CONTRAST Routine 04/06/2024 9:57 AM EDT documented in this encounter Results * CT angiogram chest pulmonary embolism with contrast per algorithm (04/06/2024 9:57 AM EDT) Anatomical Region Laterality Modality Body [...] documented as of this encounter Care Teams Waste Treatment Operator Relationship Specialty Start Date End Date Ilya Gusman MD [address] [place] [phone] PCP - General 05/14/17 [facility] 09/01/25 documented as of this encounter
--- OUTSIDE RECORDS SUMMARY | 2025-09-23 20:58 | XMS_ITS | Encounter Summary ---
Author Organization [facility] ystem Address [address] [place] [address] Phone Care Team Providers Care Hand Bander Name Role Phone Ilya Gusman MD Primary Care Provider [phone] Encounter Details Date Type Department Care Team ([facility] Contact Info) Description 04/07/2024 Orders Only [facility] - Health Information Department [address] [place] [phone] Scan, No Provider Available [address] [place] [address] Dr. Eleazar [place] [phone] Social History Tobacco Use Types Packs/Day Years [...] 10:45 AM EST Office Visit [facility] - Internal Medicine [address] [place] [phone] Ilya Gusman MD [address] [place] [phone] Christophe Dailey MD [address] [place] [phone] 01/18/2026 1:00 PM EST Office Visit [facility] [address] [place] [address] Porsha Marsh, WATERPROOF BAG SEWER [address] [place] [address] 02/22/2026 11:00 AM EDT Office Visit [facility] [address] [place] [address] [address] [place] [phone] Alonso Bae MD [address] [place] [address] [address] [place] [address] 07/17/2026 2:00 PM EDT Office Visit [facility] - Internal Medicine [address] [place] [phone] Ilya Gusman MD [address] [place] [phone] 07/19/2026 11:40 AM EDT Office Visit [facility] [address] [place] [address] Yesi Perez MD [address] [place] [phone] documented as of this encounter Procedures Procedure Name Priority Date/Time Associated Diagnosis Comments XR CHEST 2 VW Routine 04/06/2024 3:27 PM EDT MR INO LABS Routine 04/06/2024 1:33 PM EDT COVID-19 (EXTERNAL) Routine 04/06/2024 documented in this encounter Results * X-ray chest 2 views (04/06/2024 3:27 PM EDT) Anatomical Region Laterality Modality Body Radiographic Carmelina ging us No Provider Available Scan IMG XR PROCEDURES Fin al Result * MR [facility] labs (04/06/2024 1:33 PM EDT) us No Provider Available Scan LAB BLOOD ORDERABLES Final Result * COVID-19 (External) (04/06/2024) External COVID-19 Negative Not Detected, Negative, Non-reacti ve [facility] Nasopharyngeal (Nasopharynx) Historical Provider LAB MICROBIOLOGY - GENERA L ORDERABLES Final Result Performing Organization Address City/State/[facility] Co de Phone Number [facility] [address] [place] [address], [place] [phone] documented in this encounter Visit Diagnoses Not on filedocumented in this encounter Additional Health Concerns Infection Onset Date Last Indicated Resolved Time C difficile Rule-Out 11/01/2024 11/02/2024 024 9:43 AM EST Assessment Noted Time PHQ-9 Depression Total Score: 9 06/05/20 20 9:52 AM EDT documented as of this encounter Care Teams Hand Bander Relationship Specialty Start Date End Date Ilya Gusman MD [address] [place] [address] [phone] PCP - General 05/14/17 [facility] 09/01/25 documented as of this encounter
--- OUTSIDE RECORDS SUMMARY | 2025-09-23 20:58 | XMS_ITS | Encounter Summary ---
Author Organization [facility] ystem Address [address] [place] [address] Phone Care Team Providers Care Miller Head Wet Process Name Role Phone Ilya Gusman MD Primary Care Provider [phone] Encounter Details Date Type Department Care Team (Late Contact Info) Description 01/22/2024 Scanned Document [facility] - Health Information Department [address] [place] [phone] Scan, No Provider Available [address] [place] [address] [place] [address] <No scans attached> Social History Tobacco Use [...] Description 10/06/2025 10:45 AM EST Office Visit [facility] - Internal Medicine [address] [place] [phone] Ilya Gusman MD [address] [place] [phone] Christophe Dailey MD [address] [place] [address] [phone] 01/18/2026 1:00 PM EST Office Visit [facility] [address] [place] [address] Porsha Marsh, CREDIT SUPPORT SPECIALIST [address] [place] [address] 02/22/2026 11:00 AM EDT Office Visit [facility] [address] [place] [address] [address] [place] [phone] Alonso Bae MD [address] [place] [address] [address] [place] [address] 07/17/2026 2:00 PM EDT Office Visit [facility] - Internal Medicine [address] [place] [phone] Ilya Gusman MD [address] [place] [phone] 07/19/2026 11:40 AM EDT Office Visit [facility] [address] [place] [address] 289[address] Yesi Perez MD [address] [place] [address] documented as of this encounter Visit Diagnoses Not on filedocumented in this encounter Additional Health Concerns Infection Onset Date Last Indicated Resolved Time C difficile Rule-Out 11/01/2024 11/02/2024 024 9:43 AM EST Assessment Noted Time PHQ-9 Depression Total Score: 9 06/05/20 20 9:52 AM EDT documented as of this encounter Care Teams Miller Head Wet Process Relationship Specialty Start Date End Date Ilya Gusman MD [address] [place] [address] [phone] PCP - General 05/14/17 [facility] 09/01/25 documented as of this encounter
--- OUTSIDE RECORDS SUMMARY | 2025-09-23 20:58 | XMS_ITS | Encounter Summary ---
Author Organization [facility] ystem Address [address] [place] [address] Phone Care Team Providers Care Fire Control Technician G Name Role Phone Ilya Gusman MD Primary Care Provider [phone] Encounter Details Date Type Department Care Team (Late Contact Info) Description 05/13/2024 Scanned Document [facility] - Health Information Department [address] [place] [phone] Scan, No Provider Available [address] [place] [address] [place] [address] <No scans attached> Social History Tobacco Use [...] 10/06/2025 10:45 AM EST Office Visit [facility] - Internal Medicine [address] [place] [phone] Ilya Gusman MD [address] [place] [phone] Christophe Dailey MD [address] [place] [address] [phone] 01/18/2026 1:00 PM EST Office Visit [facility] [address] [place] [address] Porsha Marsh, DATABASE ADMIN [address] [place] [address] 02/22/2026 11:00 AM EDT Office Visit [facility] [address] [place] [address] [address] [place] [phone] lAonso Bae MD [address] [place] [address] [address] [place] [address] 07/17/2026 2:00 PM EDT Office Visit [facility] - Internal Medicine [address] [place] [phone] Ilya Gusman MD [address] [place] [phone] 07/19/2026 11:40 AM EDT Office Visit [facility] [address] [place] [address] Yesi Perez MD [address] [place] [address] documented as of this encounter Visit Diagnoses Not on filedocumented in this encounter Additional Health Concerns Infection Onset Date Last Indicated Resolved Time C difficile Rule-Out 11/01/2024 11/02/2024 024 9:43 AM EST Assessment Noted Time PHQ-9 Depression Total Score: 6 04/28/20 24 1:53 PM EDT documented as of this encounter Care Teams Fire Control Technician G Relationship Specialty Start Date End Date Ilya Gusman MD [address] [place] [address] [phone] PCP - General 05/14/17 [facility] 09/01/25 documented as of this encounter
--- OUTSIDE RECORDS SUMMARY | 2025-09-23 20:58 | XMS_ITS | Encounter Summary ---
Author Organization [facility] ystem Address [address] [place] [address] Phone Care Team Providers Care Presser Automatic Name Role Phone Ilya Gusman MD Primary Care Provider [phone] Encounter Details Date Type Department Care Team (Late Contact Info) Description 04/11/2024 Scanned Document [facility] - Health Information Department [address] [place] [phone] Scan, No Provider Available [address] [place] [address] [place] [address] <No scans attached> Social History Tobacco Use [...] Health [facility] - Internal Medicine [address] [place] [phone] Ilya Gusman MD [address] [place] [phone] Christophe Dailey MD [address] [place] [address] [phone] 01/18/2026 1:00 PM EST Office Visit [facility] [address] [place] [address] Porsha Marsh, FISH FARM MANAGER [address] [place] [address] 02/22/2026 11:00 AM EDT Office Visit [facility] [address] [place] [address] [address] [place] [phone] Alonso Bae MD [address] [place] [address] [address] [place] [address] 07/17/2026 2:00 PM EDT Office Visit [facility] - Internal Medicine [address] [place] [phone] Ilya Gusman MD [address] [place] [phone] 07/19/2026 11:40 AM EDT Office Visit [facility] [address] [place] [address] Yesi Perez MD [address] [place] [address] documented as of this encounter Visit Diagnoses Not on filedocumented in this encounter Additional Health Concerns Infection Onset Date Last Indicated Resolved Time C difficile Rule-Out 11/01/2024 11/02/2024 024 9:43 AM EST Assessment Noted Time PHQ-9 Depression Total Score: 9 06/05/20 20 9:52 AM EDT documented as of this encounter Care Teams Presser Automatic Relationship Specialty Start Date End Date Ilya Gusman MD [address] [place] [address] [phone] PCP - General 05/14/17 [facility] 09/01/25 documented as of this encounter
--- OUTSIDE RECORDS SUMMARY | 2025-09-23 20:58 | XMS_ITS | Encounter Summary ---
Author Organization [facility] ystem Address [address] [place] [address] Phone Care Team Providers Care Rotary Derrick Operator Name Role Phone Ilya Gusman MD Primary Care Provider Encounter Details Date Type Department Care Team (Late Contact Info) Description 05/08/2024 Scanned Document [facility] - Health Information Department [address] [place] [phone] Scan, No Provider Available [address] [place] [address] [place] [address] <No scans attached> Social History Tobacco Use [...] Upcoming Encounters Date Type Department Care Team ([facility] Contact Info) Description 10/06/2025 10:45 AM EST Office Visit [facility] - Internal Medicine [address] [place] [phone] Ilya Gusman MD [address] [place] [phone] Christophe Dailey MD [address] [place] [address] [phone] 01/18/2026 1:00 PM EST Office Visit [facility] [address] [place] [address] Porsha Marsh, VASC TECH [address] [place] [address] 02/22/2026 11:00 AM EDT Office Visit [facility] [address] [place] [address] [address] [place] [phone] Alonso Bae MD [address] [place] [address] [address] [place] [address] 07/17/2026 2:00 PM EDT Office Visit [facility] - Internal Medicine [address] [place] [phone] Ilya Gusman MD [address] [place] [phone] 07/19/2026 11:40 AM EDT Office Visit [facility] [address] [place] [address] Yesi Perez MD [address] [place] [address] documented as of this encounter Visit Diagnoses Not on filedocumented in this encounter Additional Health Concerns Infection Onset Date Last Indicated Resolved Time C difficile Rule-Out 11/01/2024 11/02/2024 024 9:43 AM EST Assessment Noted Time PHQ-9 Depression Total Score: 6 04/28/20 24 1:53 PM EDT documented as of this encounter Care Teams Rotary Derrick Operator Relationship Specialty Start Date End Date Ilya Gusman MD [address] [place] [address] [phone] PCP - General 05/14/17 [facility] 09/01/25 documented as of this encounter
--- OUTSIDE RECORDS SUMMARY | 2025-09-23 20:58 | XMS_ITS | Encounter Summary ---
Author Organization [facility] ystem Address [address] [place] [address] Phone Care Team Providers Care Secretary Receptionist Name Role Phone Ilya Gusman MD Primary Care Provider [phone] Encounter Details Date Type Department Care Team (Late Contact Info) Description 01/09/2024 Scanned Document [facility] - Health Information Department [address] [place] [address] Scan, No Provider Available [address] [place] [address] [place] [address] <No scans attached> Social History Tobacco Use [...] Encounters Date Type Department Care Team ([facility] Contact Info) Description 10/06/2025 10:45 AM EST Office Visit [facility] - Internal Medicine [address] [place] [phone] Ilya Gusman MD [address] [place] [phone] Christophe Dailey MD [address] [place] [address] [phone] 01/18/2026 1:00 PM EST Office Visit [facility] [address] [place] [address] Porsha Marsh, CHEMICAL COMPOUNDER HELPER [address] [place] [address] 02/22/2026 11:00 AM EDT Office Visit [facility] [address] [place] [address] [address] [place] [phone] Alonso Bae MD [address] [place] [address] [address] [place] [address] 07/17/2026 2:00 PM EDT Office Visit [facility] - Internal Medicine [address] [place] [phone] Ilya Gusman MD [address] [place] [phone] 07/19/2026 11:40 AM EDT Office Visit [facility] [address] [place] [address] Yesi Perez MD [address] [place] [phone] documented as of this encounter Visit Diagnoses Not on filedocumented in this encounter Additional Health Concerns Infection Onset Date Last Indicated Resolved Time C difficile Rule-Out 11/01/2024 11/02/2024 024 9:43 AM EST Assessment Noted Time PHQ-9 Depression Total Score: 9 06/05/20 20 9:52 AM EDT documented as of this encounter Care Teams Secretary Receptionist Relationship Specialty Start Date End Date Ilya Gusman MD [address] [place] [address] [phone] PCP - General 05/14/17 [facility] 09/01/25 documented as of this encounter
--- OUTSIDE RECORDS SUMMARY | 2025-09-23 20:58 | XMS_ITS | Encounter Summary ---
Author Organization [facility] ystem Address [address] [place] [address] Phone Care Team Providers Care Fashion Photographer Name Role Phone Ilya Gusman MD Primary Care Provider Encounter Details Date Type Department Care Team (Late Contact Info) Description 05/08/2024 Scanned Document [facility] - Health Information Department [address] [place] [address] [phone] Scan, No Provider Available [address] [place] [address] [place] [address] <No scans attached> Social History Tobacco Use [...] Upcoming Encounters Date Type Department Care Team ([facility] Contact Info) Description 10/06/2025 10:45 AM EST Office Visit [facility] - Internal Medicine [address] [place] [phone] Ilya Gusman MD [address] [place] [phone] Christophe Dailey MD [address] [place] [address] [phone] 01/18/2026 1:00 PM EST Office Visit [facility] [address] [place] [address] Porsha Marsh, MILL ROLL OPERATOR [address] [place] [address] 02/22/2026 11:00 AM EDT Office Visit [facility] [address] [place] [address] [address] [place] [phone] Alonso Bae MD [address] [place] [address] [address] [place] [address] 07/17/2026 2:00 PM EDT Office Visit [facility] - Internal Medicine [address] [place] [phone] Ilya Gusman MD [address] [place] [phone] 07/19/2026 11:40 AM EDT Office Visit [facility] [address] [place] [address] Yesi Perez MD [address] [place] [address] documented as of this encounter Visit Diagnoses Not on filedocumented in this encounter Additional Health Concerns Infection Onset Date Last Indicated Resolved Time C difficile Rule-Out 11/01/2024 11/02/2024 024 9:43 AM EST Assessment Noted Time PHQ-9 Depression Total Score: 6 04/28/20 24 1:53 PM EDT documented as of this encounter Care Teams Fashion Photographer Relationship Specialty Start Date End Date Ilya Gusman MD [address] [place] [address] [phone] PCP - General 05/14/17 [facility] 09/01/25 documented as of this encounter
--- OUTSIDE RECORDS SUMMARY | 2025-09-23 20:58 | XMS_ITS | Encounter Summary ---
Author Organization [facility] ystem Address [address] [place] [address] Phone Care Team Providers Care Security Patrol Officer Name Role Phone Ilya Gusman MD Primary Care Provider [phone] Encounter Details Date Type Department Care Team (Late Contact Info) Description 03/25/2024 Scanned Document [facility] - Health Information Department [address] [place] [address] Scan, No Provider Available [address] [place] [address] [place] [address] <No scans attached> Social History Tobacco Use [...] Upcoming Encounters Date Type Department Care Team ([facility] Contact Info) Description 10/06/2025 10:45 AM EST Office Visit [facility] - Internal Medicine [address] [place] [phone] Ilya Gusman MD [address] [place] [phone] Christophe Dailey MD [address] [place] [address] [phone] 01/18/2026 1:00 PM EST Office Visit [facility] [address] [place] [address] Porsha Marsh, FORMING FIXER [address] [place] [address] 02/22/2026 11:00 AM EDT Office Visit [facility] [address] [place] [address] [address] [place] [phone] Alonso Bae MD [address] [place] [address] [address] [place] [address] 07/17/2026 2:00 PM EDT Office Visit [facility] - Internal Medicine [address] [place] [phone] Ilya Gusman MD [address] [place] [phone] 07/19/2026 11:40 AM EDT Office Visit [facility] [address] [place] [address] Yesi Perez MD [address] [place] [address] documented as of this encounter Visit Diagnoses Not on filedocumented in this encounter Additional Health Concerns Infection Onset Date Last Indicated Resolved Time C difficile Rule-Out 11/01/2024 11/02/2024 024 9:43 AM EST Assessment Noted Time PHQ-9 Depression Total Score: 9 06/05/20 20 9:52 AM EDT documented as of this encounter Care Teams Security Patrol Officer Relationship Specialty Start Date End Date Ilya Gusman MD [address] [place] [address] [phone] PCP - General 05/14/17 [facility] 09/01/25 documented as of this encounter
--- OUTSIDE RECORDS SUMMARY | 2025-09-23 20:58 | XMS_ITS | Encounter Summary ---
Author Organization [facility] ystem Address [address] [place] [address] Phone Care Team Providers Care Woodworking Shop Laborer Name Role Phone Ilya Gusman MD Primary Care Provider [phone] Encounter Details Date Type Department Care Team (Late Contact Info) Description 02/01/2024 Scanned Document [facility] - Health Information Department [address] [place] [phone] Scan, No Provider Available [address] [place] [address] [place] [address] <No scans attached> Social History Tobacco Use [...] [facility] - Internal Medicine [address] [place] [phone] Ilya Gusman MD [address] [place] [phone] Christophe Dailey MD [address] [place] [address] [phone] 01/18/2026 1:00 PM EST Office Visit [facility] [address] [place] [address] Porsha Marsh, DETACHER [address] [place] [address] 02/22/2026 11:00 AM EDT Office Visit [facility] [address] [place] [address] [address] [place] [phone] Alonso Bae MD [address] [place] [place] [address] [address] [place] [address] 07/17/2026 2:00 PM EDT Office Visit [facility] - Internal Medicine [address] [place] [phone] Ilya Gusman MD [address] [place] [phone] 07/19/2026 11:40 AM EDT Office Visit [facility] [address] [place] [address] Yesi Perez MD [address] [place] [address] documented as of this encounter Visit Diagnoses Not on filedocumented in this encounter Additional Health Concerns Infection Onset Date Last Indicated Resolved Time C difficile Rule-Out 11/01/2024 11/02/2024 024 9:43 AM EST Assessment Noted Time PHQ-9 Depression Total Score: 9 06/05/20 20 9:52 AM EDT documented as of this encounter Care Teams Woodworking Shop Laborer Relationship Specialty Start Date End Date Ilya Gusman MD [address] [place] [address] [phone] PCP - General 05/14/17 [facility] 09/01/25 documented as of this encounter
--- OUTSIDE RECORDS SUMMARY | 2025-09-23 20:58 | XMS_ITS | Encounter Summary ---
Author Organization [facility] ystem Address [address] [place] [address] Phone Care Team Providers Care Insurance Salesman Name Role Phone Ilya Gusman MD Primary Care Provider [phone] Encounter Details Date Type Department Care Team ([facility] Contact Info) Description 05/18/2024 Orders Only [facility] - Health Information Department [address] [place] [address] Scan, No Provider Available [address] [place] [address] Dr. Eleazar [place] [phone] Social History Tobacco Use Types Packs/Day Years [...] Upcoming Encounters Date Type Department Care Team ([facility] Contact Info) Description 10/06/2025 10:45 AM EST Office Visit [facility] - Internal Medicine [address] [place] [phone] lIya Gusman MD [address] [place] [phone] Christpohe Dailey MD [address] [place] [phone] 01/18/2026 1:00 PM EST Office Visit [facility] [address] [place] [address] Porsha Marsh, FLY MAKER [address] [place] [address] 02/22/2026 11:00 AM EDT Office Visit [facility] [address] [place] [address] [address] [place] [phone] Alonso Bae MD [address] [place] [address] [address] [place] [address] 07/17/2026 2:00 PM EDT Office Visit [facility] - Internal Medicine [address] [place] [address] [phone] Ilya uGsman MD [address] [place] [phone] 07/19/2026 11:40 AM EDT Office Visit [facility] [address] [place] [address] Yesi Perez MD [address] [place] [address] documented as of this encounter Procedures Procedure Name Priority Date/Time Associated Diagnosis Comments MR INO COX Routine 05/13/2024 10:59 AM EDT STRESS TEST WITH MYOCARDIAL PERFUSION STAT 05/10/2024 11:33 AM EDT documented in this encounter Results * MR Ino cox (05/13/2024 10:59 AM EDT) us No Provider Available Scan LAB BLOOD ORDERABLES Final Result * Stress Test With Myocardial Perfusion (05/10/2024 11:33 AM EDT) us No Provider Available Scan CV STRESS PROCEDURES Final Result documented in this encounter Visit Diagnoses Not on filedocumented in this encounter Additional Health Concerns Infection Onset Date Last Indicated Resolved Time C difficile Rule-Out 11/01/2024 11/02/2024 024 9:43 AM EST Assessment Noted Time PHQ-9 Depression Total Score: 6 04/28/20 24 1:53 PM EDT documented as of this encounter Care Teams Insurance Salesman Relationship Specialty Start Date End Date Ilya Gusman MD [address] [place] [address] [phone] PCP - General 05/14/17 [facility] 09/01/25 documented as of this encounter
--- OUTSIDE RECORDS SUMMARY | 2025-09-23 20:58 | XMS_ITS | Encounter Summary ---
Author Organization [facility] ystem Address [address] [place] [address] Phone Care Team Providers Care Tooth Cutter Pinion Name Role Phone Ilya Gusman MD Primary Care Provider [phone] Encounter Details Date Type Department Care Team ([facility] Contact Info) Description 01/22/2024 Orders Only [facility] - Health Information Department [address] [place] [phone] Scan, No Provider Available [address] [place] [address] Dr. Eleazar [place] [phone] Social History Tobacco Use Types Packs/Day Years [...] 10/06/2025 10:45 AM EST Office Visit [facility] - Internal Medicine [address] [place] [phone] Ilya Gusman MD [address] [place] [phone] Christophe Dailey MD [address] [place] [phone] 01/18/2026 1:00 PM EST Office Visit [facility] [address] [place] [address] Porsha Mrash, MEDICAL SECRETARY RECEPTIONIST [address] [place] [address] 02/22/2026 11:00 AM EDT Office Visit [facility] [address] [place] [address] [address] [place] [phone] Alonso Bae MD [address] [place] [address] [address] [place] [address] 07/17/2026 2:00 PM EDT Office Visit [facility] - Internal Medicine [address] [place] [phone] Ilya Gusman MD [address] [place] [phone] 07/19/2026 11:40 AM EDT Office Visit [facility] [address] [place] [address] Yesi Perez MD [address] [place] [address] documented as of this encounter Procedures Procedure Name Priority Date/Time Associated Diagnosis Comments ECG 12-LEAD Today 01/06/2024 documented in this encounter Results * ECG (01/06/2024) us No Provider Available Scan ECG ORDERABLES Final Result documented in this encounter Visit Diagnoses Not on filedocumented in this encounter Additional Health Concerns Infection Onset Date Last Indicated Resolved Time C difficile Rule-Out 11/01/2024 11/02/2024 024 9:43 AM EST Assessment Noted Time PHQ-9 Depression Total Score: 9 06/05/20 20 9:52 AM EDT documented as of this encounter Care Teams Tooth Cutter Pinion Relationship Specialty Start Date End Date Ilya Gusman MD [address] [place] [phone] PCP - General 05/14/17 [facility] 09/01/25 documented as of this encounter
--- OUTSIDE RECORDS SUMMARY | 2025-09-23 20:58 | XMS_ITS | Encounter Summary ---
Author Organization [facility] ystem Address [address] [place] [address] Phone Care Team Providers Care Impregnator Electrolytic Capacitors Name Role Phone Ilya Gusman MD Primary Care Provider [phone] Encounter Details Date Type Department Care Team ([facility] Contact Info) Description 05/12/2024 Orders Only [facility] - Health Information Department [address] [place] [address] Scan, No Provider Available [address] [place] [address] Dr. Eleazar [place] [phone] Social History Tobacco Use Types Packs/Day Years [...] [facility] Contact Info) Description 10/06/2025 10:45 AM EST Office Visit [facility] - Internal Medicine [address] [place] [phone] Ilya Gusman MD [address] [place] [phone] Christophe Dailey MD [address] [place] [phone] 01/18/2026 1:00 PM EST Office Visit [facility] [address] [place] [address] Porsha Marsh, LIFE SCIENCES INSTRUCTOR [address] [place] [address] 02/22/2026 11:00 AM EDT Office Visit [facility] [address] [place] [address] [address] [place] [phone] Alonso Bae MD [address] [place] [address] [address] [place] [address] 07/17/2026 2:00 PM EDT Office Visit [facility] - Internal Medicine [address] [place] [phone] Ilya Gusman MD [address] [place] [phone] 07/19/2026 11:40 AM EDT Office Visit [facility] [address] [place] [address] Yesi Perez MD [address] [place] [address] documented as of this encounter Procedures Procedure Name Priority Date/Time Associated Diagnosis Comments NM MYOCARDIAL PERFUSION SPECT (REST AND STRESS) STAT 05/10/2024 12:32 PM EDT ECG 12-LEAD Today 05/09/2024 12:[address] ABDOMEN PELVIS W CONTRAST Routine 05/09/2024 12:27 PM EDT ECG 12-LEAD Today 05/08/2024 12:[address] ANGIOGRAM CHEST PULMONARY EMBOLISM W CONTRAST Routine 05/08/2024 11:20 AM EDT MR INO COX Routine 05/08/2024 11:18 AM EDT XR CHEST 1 VW Routine 05/08/2024 11:17 AM EDT documented in this encounter Results * Nuclear Medicine myocardial perfusion SPECT (rest and stress) (05/10/2024 12:32 PM EDT) Anatomical Region Laterality Modality Body Nuclear Medicine us No Provider Available Scan IMG NM PROCEDURES Fin al Result * ECG (05/09/2024 12:30 PM EDT) us No Provider Available Scan ECG ORDERABLES Final Result * CT abdomen pelvis with contrast per algorithm (05/09/2024 12:27 PM EDT) Anatomical Region Laterality Modality Body Computed Tomogra phy us No Provider Available Scan IMG CT PROCEDURES Fin al Result * ECG (05/08/2024 12:29 PM EDT) us No Provider Available Scan ECG ORDERABLES Final Result * CT angiogram chest pulmonary embolism with contrast per algorithm (05/08/2024 11:20 AM EDT) Anatomical Region Laterality Modality Body Computed Tomogra phy us No Provider Available Scan IMG CT PROCEDURES Fin al Result * MR Ino cox (05/08/2024 11:18 AM EDT) us No Provider Available Scan LAB BLOOD ORDERABLES Final Result * X-ray chest 1 view (05/08/2024 11:17 AM EDT) Anatomical Region Laterality Modality Body [...] documented as of this encounter Care Teams Impregnator Electrolytic Capacitors Relationship Specialty Start Date End Date Ilya Gusman MD [address] [place] [phone] PCP - General 05/14/17 [facility] 09/01/25 documented as of this encounter
--- OUTSIDE RECORDS SUMMARY | 2025-09-23 20:58 | XMS_ITS | Encounter Summary ---
Author Organization [facility] ystem Address [address] [place] [address] Phone Care Team Providers Care Data Entry Clerk Name Role Phone Ilya Gusman MD Primary Care Provider Encounter Details Date Type Department Care Team (Late Contact Info) Description 05/10/[address] [facility] - Health Information Department [address] [place] [address] Scan, No Provider Available [address] [place] [address] [place] [address] <No scans attached> Social History Tobacco Use [...] Visit [facility] - Internal Medicine [address] [place] [phone] Ilya Gusman MD [address] [place] [phone] Christophe Dailey MD [address] [place] [address] [phone] 01/18/2026 1:00 PM EST Office Visit [facility] [address] [place] [address] Porsha Marsh, SAFETY TRAINER [address] [place] [address] 02/22/2026 11:00 AM EDT Office Visit [facility] [address] [place] [address] [address] [place] [phone] Alonso Bae MD [address] [place] [address] [address] [place] [address] 07/17/2026 2:00 PM EDT Office Visit [facility] - Internal Medicine [address] [place] [phone] Ilya Gusman MD [address] [place] [phone] 07/19/2026 11:40 AM EDT Office Visit [facility] [address] [place] [address] Yesi Perez MD [address] [place] [address] [phone] documented as of this encounter Visit Diagnoses Not on filedocumented in this encounter Additional Health Concerns Infection Onset Date Last Indicated Resolved Time C difficile Rule-Out 11/01/2024 11/02/2024 024 9:43 AM EST Assessment Noted Time PHQ-9 Depression Total Score: 6 04/28/20 24 1:53 PM EDT documented as of this encounter Care Teams Data Entry Clerk Relationship Specialty Start Date End Date Ilya Gusman MD [address] [place] [address] [phone] PCP - General 05/14/17 [facility] 09/01/25 documented as of this encounter
--- OUTSIDE RECORDS SUMMARY | 2025-09-23 20:58 | XMS_ITS | Encounter Summary ---
Author Organization [facility] ystem Address [address] [place] [address] Phone Care Team Providers Care Experienced Truck Driver Name Role Phone Ilya Gusman MD Primary Care Provider Encounter Details Date Type Department Care Team (Late Contact Info) Description 04/12/2024 Scanned Document [facility] - Health Information Department [address] [place] [address] Scan, No Provider Available [address] [place] [address] [place] [address] <No scans attached> Social History Tobacco Use [...] Care Team ([facility] Contact Info) Description 10/06/2025 10:45 AM EST Office Visit [facility] - Internal Medicine [address] [place] [phone] Ilya Gusman MD [address] [place] [phone] Christophe Dailey MD [address] [place] [address] [phone] 01/18/2026 1:00 PM EST Office Visit [facility] [address] [place] [address] Porsha Marsh, MOTOR VEHICLE OR CARAVAN SALESPERSON [address] [place] [address] 20[address] 02/22/2026 11:00 AM EDT Office Visit [facility] [address] [place] [address] [address] [place] [phone] Alonso Bae MD [address] [place] [address] [address] [place] [address] 07/17/2026 2:00 PM EDT Office Visit [facility] - Internal Medicine [address] [place] [phone] Ilya Gusman MD [address] [place] [phone] 07/19/2026 11:40 AM EDT Office Visit [facility] [address] [place] [address] Yesi Perez MD [address] [place] [address] 5[address] documented as of this encounter Visit Diagnoses Not on filedocumented in this encounter Additional Health Concerns Infection Onset Date Last Indicated Resolved Time C difficile Rule-Out 11/01/2024 11/02/2024 024 9:43 AM EST Assessment Noted Time PHQ-9 Depression Total Score: 9 06/05/20 20 9:52 AM EDT documented as of this encounter Care Teams Experienced Truck Driver Relationship Specialty Start Date End Date Ilya Gusman MD [address] [place] [address] [phone] PCP - General 05/14/17 [facility] 09/01/25 documented as of this encounter
--- OUTSIDE RECORDS SUMMARY | 2025-09-23 20:58 | XMS_ITS | Encounter Summary ---
Author Organization [facility] ystem Address [address] [place] [address] Phone Care Team Providers Care Toe Trimmer Name Role Phone Ilya Gusman MD Primary Care Provider [phone] Encounter Details Date Type Department Care Team (Late st Contact Info) Description 04/24/2021 Scanned Document [facility] - Health Information Department [address] [place], [place] [phone] Scan, No Provider Available [address] [facility] [place] [address] <No scans attached> Social History Tobacco Use [...] AM EST Office Visit [facility] - Internal Medicine [address] [place] [phone] Ilya Gusman MD [address] [place] [phone] Christophe Dailey MD [address] [place] [phone] 01/18/2026 1:00 PM EST Office Visit [facility] [address] [place] [address] Porsha Marsh, MOBILE SECURITY SPECIALIST [address] [place] [address] 02/22/2026 11:00 AM EDT Office Visit [facility] [address] [place] [address] [address] [place] [phone] Alonso Bae MD [address] [place] [address] [address] [place] [address] 07/17/2026 2:00 PM EDT Office Visit [facility] - Internal Medicine [address] [place] [phone] Ilya Gusman MD [address] [place] [phone] 07/19/2026 11:40 AM EDT Office Visit [facility] [address] [place] [address] Yesi Perez MD [address] [place] [address] 293[address] documented as of this encounter Visit Diagnoses [...] documented as of this encounter Care Teams Toe Trimmer Relationship Specialty Start Date End Date Ilya Gusman MD [address] [place] [phone] PCP - General 05/14/17 [facility] 09/01/25 documented as of this encounter
--- OUTSIDE RECORDS SUMMARY | 2025-09-23 20:59 | XMS_ITS | Encounter Summary ---
Author Organization [facility] Address [address] [place] [address] Phone Care Team Providers Care Senior Sql Database Developer Name Role Phone Ilya Gusman MD Primary Care Provider [phone] Reason for Visit * Reason Onset Date Comments Med Refill 04/26/2019 Med Refill 04/27/2019 Encounter Details Date Type Department Care Team ([facility] Contact Info) Description 04/26/2019 Telephone [facility] - Internal Medicine [address] [place] [phone] Ilya Gusman MD [address] [place] [phone] Med Refill; Med Refill Social History Tobacco Use Types Packs/Day Years Used Date Smoking Tobacco: Never Smokeless Tobacco: Never Alcohol Use Standard Drinks/Week Comments No 0 (1 standard drink = 0.6 oz pure alcohol) ETOH dependence- last use 10/2018 Sex and Gender Information Value Date Recorded Sex Assigned at Not on file Legal Sex Male 9:28 AM EDT Gender Identity Not on file Sexual Orientation Not on file 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 Delio Hannah LPN LNG IM triage * Telephone Encounter - Saritha Terrazas RN - 04/30/2019 10:14 AM EDT Called pt and left voicemail to call office back. Saritha Terrazas RNbeer cooler * Telephone Encounter - Suly Walker LPN - 04/29/2019 8:51 AM EDT Called pt, left message for pt to call back Suly Walker LPN LNGIM * Telephone Encounter - Samuel Cross RN - 04/28/2019 6:27 PM EDT Pharm has no record of med. Pt called [facility] to find out what pharm he got med from. SAMUEL CROSS RN * Telephone Encounter - Ilya Gusman MD - 04/28/2019 6:14 PM EDT Please confirm dose with pharmacy. We have it listed as 5 mg (1/2 tab) daily. * Telephone Encounter - Tanvir Quevedo RN - 04/28/2019 9:25 AM EDT Call to patient, patient states he was out in [place] for a few months and found psych who wrote it for him, states it was a psych doctor. States that psych doctor will not write this for him anymore, she switched offices per patient. States he is in the process of finding a new prescriber for this med, states he does not have anyone at this time. States is actively looking for a new psych prescriber, does have referral to our here. Transferred to secretaries to book appt, but wondering ifPCP could write this med for him so he can continue it. Please advise. Tanvir Quevedo RN LNGIM * Telephone Encounter - Samuel Cross RN - 04/27/2019 2:07 PM EDT [facility]. SAMUEL CROSS RN * Telephone Encounter - Ilya Gusman MD - 04/27/2019 12:59 PM EDT I have never prescribed this for him. Should be sent to previous prescriber. The pharmacy should know better. Does he have a prescriber for this medication? * Telephone Encounter - Kristina Schneider PhT - 04/27/2019 8:58 AM EDT Pharmacy requesting a refill of Abilify 10mg Last written as a Historic Med No med is pending. Please advise if ok to fill or if it should be sent to Outside Provider Last OV on 04/05/19. Please review Future Appointments Date Time Provider Department Center 07/16/2019 9:20 AM MD SHALA Wen IM SHALA Schneider [facility] Refill Team [facility] documented in this encounter Plan of Treatment Upcoming Encounters Date Type Department Care Team (Late st Contact Info) Description 10/06/2025 10:45 AM EST Office Visit [facility] - Internal Medicine [address] [place] [phone] Ilya Gusman MD [address] [place] [phone] Christophe Dailey MD [address] [place] [phone] 01/18/2026 1:00 PM EST Office Visit [facility] [address] [place] [address] Porsha Marsh, DIGITAL MEDIA DESIGNER [address] [place] [address] 02/22/2026 11:00 AM EDT Office Visit [facility] [address] [place] [address] [address] [place] [phone] Alonso Bae MD [address] [place] [address] [address] [place] [address] 07/17/2026 2:00 PM EDT Office Visit [facility] - Internal Medicine [address] [place] [phone] Ilya Gusman MD [address] [place] [phone] 07/19/2026 11:40 AM EDT Office Visit [facility] [address] [place] [address] Yesi Perez MD [address] [place] [address] documented as of this encounter Visit Diagnoses [...] documented as of this encounter Care Teams Senior Sql Database Developer Relationship Specialty Start Date End Date Ilya Gusman MD [address] [place] [phone] PCP - General 05/14/17 [facility] 09/01/25 documented as of this encounter
--- OUTSIDE RECORDS SUMMARY | 2025-09-23 20:59 | XMS_ITS | Encounter Summary ---
Author Organization [facility] Address [address] [place] [address] Phone Care Team Providers Care Blow Down Helper Name Role Phone Ilya Gusman MD Primary Care Provider Encounter Details Date Type Department Care Team (Late Contact Info) Description 03/11/2019 Scanned Document [facility] - Health Information Department [address] [place] [address] Scan, No Provider Available [address] [place] [address] [place] [address] <No scans attached> Social History Tobacco Use [...] Visit [facility] - Internal Medicine [address] [place] [phone] Ilya Gusman MD [address] [place] [phone] Christophe Dailey MD [address] [place] [phone] 01/18/2026 1:00 PM EST Office Visit [facility] [address] [place] [address] Porsha Marsh, FOSTER CARE WORKER [address] [place] [address] 02/22/2026 11:00 AM EDT Office Visit [facility] [address] [place] [address] [address] [place] [phone] Alonso Bae MD [address] [place] [address] [address] [place] [address] 07/17/2026 2:00 PM EDT Office Visit [facility] - Internal Medicine [address] [place] [phone] Ilya Gusman MD [address] [place] [phone] 07/19/2026 11:40 AM EDT Office Visit [facility] [address] [place] [address] Yesi Perez MD [address] [place] [address] documented as of this encounter Visit Diagnoses [...] documented as of this encounter Care Teams Blow Down Helper Relationship Specialty Start Date End Date Ilya Gusman MD [address] [place] [phone] PCP - General 05/14/17 [facility] 09/01/25 documented as of this encounter
--- OUTSIDE RECORDS SUMMARY | 2025-09-23 20:59 | XMS_ITS | Encounter Summary ---
Author Organization [facility] Address [address] [place] [address] Phone Care Team Providers Care Artificial Intelligence Specialist Name Role Phone Ilya Gusman MD Primary Care Provider [phone] Encounter Details Date Type Department Care Team (Late Contact Info) Description 04/14/2024 Scanned Document [facility] - Health Information Department [address] [place] [address] Scan, No Provider Available [address] [place] [address] [place] [address] <No scans attached> Social History Tobacco Use [...] Upcoming Encounters Date Type Department Care Team ([facility] Contact Info) Description 10/06/2025 10:45 AM EST Office Visit [facility] - Internal Medicine [address] [place] [phone] Ilya Gusman MD [address] [place] [phone] Christophe Dailey MD [address] [place] [phone] 01/18/2026 1:00 PM EST Office Visit [facility] [address] [place] [address] Porsha Marsh, REGISTERED VASCULAR TECHNOLOGIST (RVT) [address] [place] [address] 02/22/2026 11:00 AM EDT Office Visit [facility] [address] [place] [address] [address] [place] [phone] Alonso Bae MD [address] [place] [address] [address] [place] [address] 07/17/2026 2:00 PM EDT Office Visit [facility] - Internal Medicine [address] [place] [phone] Ilya Gusman MD [address] [place] [phone] 07/19/2026 11:40 AM EDT Office Visit [facility] [address] [place] [address] Yesi Perez MD [address] [place] [address] documented as of this encounter Visit Diagnoses Not on filedocumented in this encounter Additional Health Concerns Infection Onset Date Last Indicated Resolved Time C difficile Rule-Out 11/01/2024 11/02/2024 024 9:43 AM EST Assessment Noted Time PHQ-9 Depression Total Score: 9 06/05/20 20 9:52 AM EDT documented as of this encounter Care Teams Artificial Intelligence Specialist Relationship Specialty Start Date End Date Ilya Gusman MD [address] [place] [phone] PCP - General 05/14/17 [facility] 09/01/25 documented as of this encounter
--- OUTSIDE RECORDS SUMMARY | 2025-09-23 20:59 | XMS_ITS | Encounter Summary ---
Author Organization [facility] Address [address] [place] [address] Phone Care Team Providers Care Manager Mail Name Role Phone Ilya Gusman MD Primary Care Provider [phone] Encounter Details Date Type Department Care Team (Late Contact Info) Description 03/26/2025 Procedure Pass [facility] - MR Imaging [address] [place] [phone] Social History Tobacco Use Types [...] [facility] [address] [place] [phone] Ilya Gusman MD [address] [place] [phone] Christophe Dailey MD [address] [place] [phone] 01/18/2026 1:00 PM EST Office Visit [facility] [address] [place] [address] Porsha Marsh, GOLF CART MAKER [address] [place] [address] 02/22/2026 11:00 AM EDT Office Visit [facility] [address] [place] [address] [address] [place] [phone] Alonso Bae MD [address] [place] [address] 2 [place] [address] 07/17/2026 2:00 PM EDT Office Visit [facility] - [facility] Medicine [address] [place] [phone] Ilya Gusman MD [address] [place] [phone] 07/19/2026 11:40 AM EDT Office Visit [facility] [address] [place] [address] Yesi Perez MD [address] [place] [address] documented as of this encounter Visit Diagnoses Not on filedocumented in this encounter Additional Health Concerns Assessment Noted Time PHQ-9 Depression Total Score: 6 04/28/20 24 1:53 PM EDT documented as of this encounter Care Teams Manager Mail Relationship Specialty Start Date End Date Ilya Gusman MD [address] [place] [phone] PCP - General 05/14/17 [facility] 09/01/25 documented as of this encounter
--- OUTSIDE RECORDS SUMMARY | 2025-09-23 20:59 | XMS_ITS | Encounter Summary ---
[facility] Organization [facility] Address [address] [place] [address] Phone Care Team Providers Care Personnel Quality Assurance Auditor Name Role Phone Ilya Gusman MD Primary Care Provider [phone] Encounter Details Date Type Department Care Team (Late Contact Info) Description 04/15/2024 Ancillary Orders [facility] - Central Scheduling [address] [place] [phone] Yesi Perez MD [address] [place] [address] Atrial fibrillation, unspecified type (CMS/HCC) (Primary Dx) Social History Tobacco Use Types [...] Description 10/06/2025 10:45 AM EST Office Visit [facility] - Internal Medicine [address] [place] [phone] Ilya Gusman MD [address] [place] [phone] Christophe Dailey MD [address] [place] [phone] 01/18/2026 1:00 PM EST Office Visit [facility] [address] [place] [address] Porsha Marsh, MARILIA [address] [place] [address] 02/22/2026 11:00 AM EDT Office Visit [facility] [address] [place] [address] [address] [place] [phone] Alonso Bae MD [address] [place] [address] [address] [place] [address] 07/17/2026 2:00 PM EDT Office Visit [facility] - Internal Medicine [address] [place] [phone] Ilya Gusman MD [address] [place] [phone] 07/19/2026 11:40 AM EDT Office Visit [facility] [address] [place] [address] Yesi Perez MD [address] [place] [address] documented as of this encounter Visit Diagnoses Diagnosis Atrial fibrillation, unspecified type (CMS/HCC)- Primary documented in this encounter Additional Health Concerns Infection Onset Date Last Indicated Resolved Time C difficile Rule-Out 11/01/2024 11/02/2024 024 9:43 AM EST Assessment Noted Time PHQ-9 Depression Total Score: 9 06/05/20 20 9:52 AM EDT documented as of this encounter Care Teams Personnel Quality Assurance Auditor Relationship Specialty Start Date End Date Ilya Gusman MD [address] [place] [phone] PCP - General 05/14/17 [facility] 09/01/25 documented as of this encounter
--- OUTSIDE RECORDS SUMMARY | 2025-09-23 20:59 | XMS_ITS | Encounter Summary ---
Author Organization [facility] Address [address] [place] [address] Phone Care Team Providers Care Chemical Handler Name Role Phone Ilya Gusman MD Primary Care Provider [phone] Encounter Details Date Type Department Care Team ([facility] Contact Info) Description 06/10/2019 Orders Only [facility] - Health Information Department [address] [place] [phone] Scan, No Provider Available [address] [place] [address] [place] [id number] Social History Tobacco Use Types Packs/Day Years [...] 10:45 AM EST Office Visit [facility] - Internal Medicine [address] [place] [phone] Ilya Gusman MD [address] [place] [phone] Christophe Dailey MD [address] [place] [phone] 01/18/2026 1:00 PM EST Office Visit [facility] [address] [place] [address] Porsha Marsh, EXHAUST EMISSIONS AUTOMOTIVE TECHNICIAN [address] [place] [address] 02/22/2026 11:00 AM EDT Office Visit [facility] [address] [place] [address] [address] [place] [phone] Alonso Bae MD [address] [place] [address] [address] [place] [address] 07/17/2026 2:00 PM EDT Office Visit [facility] - Internal Medicine [address] [place] [phone] Ilya Gusman MD [address] [place] [phone] 07/19/2026 11:40 AM EDT Office Visit [facility] [address] [place] [address] Yesi Perez MD [address] [place] [address] documented as of this encounter Procedures Procedure Name Priority Date/Time Associated Diagnosis Comments DIABETES EYE EXAM Routine 06/07/2019 documented in this encounter Results * Diabetes Eye Exam (06/07/2019) us No Provider Available Scan HEALTH MAINTENANCE [...] as of this encounter Care Teams Chemical Handler Relationship Specialty Start Date End Date Ilya Gusman MD [address] [place] [address] [phone] PCP - General 05/14/17 [facility] 09/01/25 documented as of this encounter
--- OUTSIDE RECORDS SUMMARY | 2025-09-23 20:59 | XMS_ITS | Encounter Summary ---
Author Organization [facility] Address [address] [place] [address] Phone Care Team Providers Care Senior Animal Trainer Name Role Phone Ilya Gusman MD Primary Care Provider [phone] Reason for Visit * Reason Onset Date Comments Med Refill 05/26/2019 Encounter Details Date Type Department Care Team (Late st Contact Info) Description 05/26/2019 Refill [facility] - Internal Medicine [address] [place] [phone] Christophe Dailey MD [address] [place] [phone] Med Refill Social History Tobacco Use [...] encounter Miscellaneous Notes * Telephone Encounter - Ilya Gusman MD - 05/26/2019 1:18 PM EDT Stopped oxycodone in October. On 03/01/2019 ED visit, Patient denies taking any medications at all today. * Telephone Encounter - Kristina Schneider PhT - 05/26/2019 12:54 PM EDT Med not pending. Please review UDS notes below Refill Oxycodone 15mg #42 Pharmacy: [facility] DATE OF LAST REFILL? 05/12/19 FREQUENCY OF REFILLS? 14 days DATE REFILL IS DUE? 05/26/19 IS THIS AN EARLY REFILL? No CONTROLLED SUBSTANCE AGREEMENT ON FILE? Yes Last UDS: On 12/10/18. Negative for all On 03/01/19: Toxicology Screen [facility]: Negative for all DATE OF LAST OFFICE VISIT: 05/12/19 DATE OF NEXT OFFICE VISIT: Future Appointments Date Time Provider Department Center 06/01/2019 9:15 AM Maria De Jesus Leigh MD [facility] 07/16/2019 9:20 AM Ilya Gusman MD LNG IM LNG VIDEO PLAYER MECHANIC reviewed on 05/26/2019 by Ian BARNETT and no red flags were noted Kristina Schneider radio maintainer Refill Team [facility] documented in this encounter Plan of Treatment Upcoming Encounters Date Type Department Care Team (Late st Contact Info) Description 10/06/2025 10:45 AM EST Office Visit [facility] - Internal Medicine [address] [place] [phone] Ilya Gusman MD [address] [place] [phone] Christophe Dailey MD [address] [place] [phone] 01/18/2026 1:00 PM EST Office Visit [facility] [address] [address] Porsha Marsh CNP 70 [place] [address] 02/22/2026 11:00 AM EDT Office Visit [facility] [address] [place] [address] [address] [place] [phone] Alonso Bae MD [address] [place] [address] [address] [place] [address] 07/17/2026 2:00 PM EDT Office Visit [facility] - Internal Medicine [address] [place] [phone] Ilya Gusman MD [address] [place] [phone] 07/19/2026 11:40 AM EDT Office Visit [facility] [address] [address] Yesi Perez MD [address] [place] [address] documented as of this encounter Visit Diagnoses [...] as of this encounter Care Teams Senior Animal Trainer Relationship Specialty Start Date End Date Ilya Gusman MD [address] [place] [address] [phone] PCP - General 05/14/17 [facility] 09/01/25 documented as of this encounter
--- OUTSIDE RECORDS SUMMARY | 2025-09-23 20:59 | XMS_ITS | Encounter Summary ---
Author Organization [facility] Address [address] [place] [address] Phone Care Team Providers Care Process Controls Technician Name Role Phone Ilya Gusman MD Primary Care Provider [phone] Encounter Details Date Type Department Care Team ([facility] Contact Info) Description 04/13/2024 Orders Only [facility] - Health Information Department [address] [place] [phone] Scan, No Provider Available [address] [place] [address] Dr. [place] [id number] Social History Tobacco Use Types Packs/Day Years [...] Type Department Care Team ([facility] Contact Info) Description 10/06/2025 10:45 AM EST Office Visit [facility] - Internal Medicine [address] [place] [phone] Ilya Gusman MD [address] [place] [phone] Christophe Dailey MD [address] [place] [phone] 01/18/2026 1:00 PM EST Office Visit [facility] [address] [place] [address] Porsha Marsh, SEAM FINISHER [address] [place] [address] 02/22/2026 11:00 AM EDT Office Visit [facility] [address] [place] [place] [address] [address] [place] [phone] Alonso Bae MD [address] [place] [address] [address] [place] [address] 07/17/2026 2:00 PM EDT Office Visit [facility] - Internal Medicine [address] [place] [phone] Ilya Gusman MD [address] [place] [phone] 07/19/2026 11:40 AM EDT Office Visit [facility] [address] [place] [address] Yesi Perez MD [address] [place] [address] documented as of this encounter Procedures Procedure Name Priority Date/Time Associated Diagnosis Comments TRANSTHORACIC ECHO (TTE) COMPLETE Routine 04/11/2024 2:20 PM EDT documented in this encounter Results * Transthoracic Echo (TTE) (04/11/2024 2:20 PM EDT) us No Provider Available Scan CV ECHO PROCEDURES Fi nal Result documented in this encounter Visit Diagnoses Not on filedocumented in this encounter Additional Health Concerns Infection Onset Date Last Indicated Resolved Time C difficile Rule-Out 11/01/2024 11/02/2024 024 9:43 AM EST Assessment Noted Time PHQ-9 Depression Total Score: 06/05/20 20 9:52 AM EDT documented as of this encounter Care Teams Process Controls Technician Relationship Specialty Start Date End Date Ilya Gusman MD [address] [place] [phone] PCP - General 05/14/17 [facility] 09/01/25 documented as of this encounter
--- OUTSIDE RECORDS SUMMARY | 2025-09-23 20:59 | XMS_ITS | Encounter Summary ---
Author Organization [facility] Address [address] [place] [address] Phone Care Team Providers Care Boot Liner Maker Name Role Phone Ilya Gusman MD Primary Care Provider [phone] Encounter Details Date Type Department Care Team (Late Contact Info) Description 03/26/2025 Procedure Pass [facility] - MR Imaging [address] [place] [address] Social History Tobacco Use Types [...] Visit [facility] - Internal Medicine [address] [place] [phone] Ilya Gusman MD [address] [place] [phone] Christophe Dailey MD [address] [place] [phone] 01/18/2026 1:00 PM EST Office Visit [facility] [address] [place] [address] Porsha Marsh, MANAGER PHOTOGRAPHY [address] [place] [address] 02/22/2026 11:00 AM EDT Office Visit [facility] [address] [place] [address] [address] [place] [phone] Alonso Bae MD [address] [place] [address] 2 [place] [address] 07/17/2026 2:00 PM EDT Office Visit [facility] - Internal Medicine [address] [place] [phone] Ilya Gusman MD [address] [place] [phone] 07/19/2026 11:40 AM EDT Office Visit [facility] [address] [place] [address] Yesi Perez MD [address] [place] [address] documented as of this encounter Visit Diagnoses Not on filedocumented in this encounter Additional Health Concerns Assessment Noted Time PHQ-9 Depression Total Score: 6 04/28/20 24 1:53 PM EDT documented as of this encounter Care Teams Boot Liner Maker Relationship Specialty Start Date End Date Ilya Gusman MD [address] [place] [phone] PCP - General 05/14/17 [facility] 09/01/25 documented as of this encounter
--- OUTSIDE RECORDS SUMMARY | 2025-09-23 20:59 | XMS_ITS | Encounter Summary ---
Author Organization [facility] ystem Address [address] [place] [address] Phone Care Team Providers Care Fly Frame Tender Name Role Phone Ilya Gusman MD Primary Care Provider [phone] Encounter Details Date Type Department Care Team (Late Contact Info) Description 03/09/2025 Scanned Document [facility] - Health Information Department [address] [place] [address] Scan, No Provider Available [address] [place] [address] [place] [address] <No scans attached> Social History Tobacco Use [...] [facility] - Internal Medicine [address] [place] [phone] Ilya Gusman MD [address] [place] [phone] Christophe Dailey MD [address] [place] [phone] 01/18/2026 1:00 PM EST Office Visit [facility] [address] [place] [address] Porsha Marsh, SKELP PROCESSOR [address] [place] [address] 02/22/2026 11:00 AM EDT Office Visit [facility] [address] [place] [address] [address] [place] [phone] Alonso Bae MD [address] [place] [address] [address] [place] [address] 07/17/2026 2:00 PM EDT Office Visit [facility] - Internal Medicine [address] [place] [phone] Ilya Gusman MD [address] [place] [phone] 07/19/2026 11:40 AM EDT Office Visit [facility] [address] [place] [address] Yesi Perez MD [address] [place] [address] documented as of this encounter Visit Diagnoses Not on filedocumented in this encounter Additional Health Concerns Assessment Noted Time PHQ-9 Depression Total Score: 6 04/28/20 24 1:53 PM EDT documented as of this encounter Care Teams Fly Frame Tender Relationship Specialty Start Date End Date Ilya Gusman MD [address] [place] [phone] PCP - General 05/14/17 [facility] 09/01/25 documented as of this encounter
--- OUTSIDE RECORDS SUMMARY | 2025-09-23 20:59 | XMS_ITS | Encounter Summary ---
Author Organization [facility] ystem Address [address] [place] [address] Phone Care Team Providers Care Career Development Engineer Name Role Phone Ilya Gusman MD Primary Care Provider [phone] Encounter Details Date Type Department Care Team (Late st Contact Info) Description 04/07/2021 Scanned Document [facility] - Health Information Department [address] [place], [place] [phone] Scan, No Provider Available [address] [facility] [place] [address] <No scans attached> Social History Tobacco Use [...] have Coronavirus / COVID-19? No / Unsure 04/10/2021 6:10 PM EDT documented as of this encounter Plan of Treatment Upcoming Encounters Date Type Department Care Team (Late st Contact Info) Description 10/06/2025 10:45 AM EST Office Visit [facility] - Internal Medicine [address] [place] [phone] Ilya Gusman MD [address] [place] [phone] Christophe Dailey MD [address] [place] [phone] 01/18/2026 1:00 PM EST Office Visit [facility] [address] [place] [address] Porsha Marsh, CREW MANAGER [address] [place] [address] 02/22/2026 11:00 AM EDT Office Visit [facility] [address] [place] [address] [address] [place] [phone] Alonso Bae MD [address] [place] [address] [address] [place] [address] 07/17/2026 2:00 PM EDT Office Visit [facility] - Internal Medicine [address] [place] [phone] Ilya Gusman MD [address] [place] [phone] 07/19/2026 11:40 AM EDT Office Visit [facility] [address] [place] [address] Yesi Perez MD [address] [place] [address] documented as of this encounter Visit Diagnoses [...] documented as of this encounter Care Teams Career Development Engineer Relationship Specialty Start Date End Date Ilya Gusman MD [address] [place] [phone] PCP - General 05/14/17 [facility] 09/01/25 documented as of this encounter
--- OUTSIDE RECORDS SUMMARY | 2025-09-23 20:59 | XMS_ITS | Encounter Summary ---
Author Organization [facility] ystem Address [address] [place] [address] Phone Care Team Providers Care Manager Multicultural Name Role Phone Ilya Gusman MD Primary Care Provider [phone] Encounter Details Date Type Department Care Team ([facility] Contact Info) Description 04/14/2024 Orders Only [facility] - Health Information Department [address] [place] [address] Scan, No Provider Available [address] [place] [address] [address] [phone] Social History Tobacco Use Types Packs/Day Years [...] Description 10/06/2025 10:45 AM EST Office Visit [facility] - Internal Medicine [address] [place] [phone] Ilya Gusman MD [address] [place] [phone] Christophe Dailey MD [address] [place] [phone] 01/18/2026 1:00 PM EST Office Visit [facility] [address] [place] [address] Porsha Marsh, MANAGER SUPPLY CHAIN PLANNING [address] [place] [address] 02/22/2026 11:00 AM EDT Office Visit [facility] [address] [place] [address] [address] [place] [phone] Alonso Bae MD [address] [place] [address] [address] [place] [address] 07/17/2026 2:00 PM EDT Office Visit [facility] - Internal Medicine [address] [place] [phone] Ilya Gusman MD [address] [place] [phone] 07/19/2026 11:40 AM EDT Office Visit [facility] [address] [place] [address] Yesi Perez MD [address] [place] [phone] documented as of this encounter Procedures Procedure Name Priority Date/Time Associated Diagnosis Comments ECG 12-LEAD Today 04/06/2024 2:43 PM EDT documented in this encounter Results * ECG (04/06/2024 2:43 PM EDT) No Provider Available Scan ECG ORDERABLES Final Result documented in this encounter Visit Diagnoses Not on filedocumented in this encounter Additional Health Concerns Infection Onset Date Last Indicated Resolved Time C difficile Rule-Out 11/01/2024 11/02/2024 024 9:43 AM EST Assessment Noted Time PHQ-9 Depression Total Score: 9 06/05/20 20 9:52 AM EDT documented as of this encounter Care Teams Manager Multicultural Relationship Specialty Start Date End Date Ilya Gusman MD [address] [place] [address] [phone] PCP - General 05/14/17 [facility] 09/01/25 documented as of this encounter
--- OUTSIDE RECORDS SUMMARY | 2025-09-23 20:59 | XMS_ITS | Encounter Summary ---
Author Organization [facility] ystem Address [address] [place] [address] Phone Care Team Providers Care Mortuary Technician Name Role Phone Ilya Gusman MD Primary Care Provider [phone] Encounter Details Date Type Department Care Team (Late Contact Info) Description 03/25/2025 Procedure Pass [facility] - MR Imaging [address] [place] [address] Social History Tobacco Use Types [...] [facility] - Internal Medicine [address] [place] [phone] Ilya Gusman MD [address] [place] [phone] Christophe Dailey MD [address] [place] [phone] 01/18/2026 1:00 PM EST Office Visit [facility] [address] [place] [address] Porsha Marsh, LICENSED LIFE AND HEALTH AGENT [address] [place] [address] 02/22/2026 11:00 AM EDT Office Visit [facility] [address] [place] [address] [address] [place] [phone] Alonso Bae MD [address] [place] [address] 2 [place] [address] 07/17/2026 2:00 PM EDT Office Visit [facility] - Internal Medicine [address] [place] [phone] Ilya Gusman MD [address] [place] [phone] 07/19/2026 11:40 AM EDT Office Visit [facility] [address] [place] [address] Yesi Perez MD [address] [place] [address] documented as of this encounter Visit Diagnoses Not on filedocumented in this encounter Additional Health Concerns Assessment Noted Time PHQ-9 Depression Total Score: 6 04/28/20 24 1:53 PM EDT documented as of this encounter Care Teams Mortuary Technician Relationship Specialty Start Date End Date Ilya Gusman MD [address] [place] [phone] PCP - General 05/14/17 [facility] 09/01/25 documented as of this encounter
--- OUTSIDE RECORDS SUMMARY | 2025-09-23 20:59 | XMS_ITS | Encounter Summary ---
Author Organization [facility] ystem Address [address] [place] [address] Phone Care Team Providers Care Canvas Worker Apprentice Name Role Phone Ilya Gusman MD Primary Care Provider [phone] Encounter Details Date Type Department Care Team (Late Contact Info) Description 03/11/2025 Scanned Document [facility] - Health Information Department [address] [place] [address] Scan, No Provider Available [address] [place] [address] [place] [address] <No scans attached> Social History Tobacco Use [...] [facility] - Internal Medicine [address] [place] [phone] Ilya Gusman MD [address] [place] [phone] Christophe Dailey MD [address] [place] [address] [phone] 01/18/2026 1:00 PM EST Office Visit [facility] [address] [place] [address] Porsha Marsh, BRACER [address] [place] [address] 02/22/2026 11:00 AM EDT Office Visit [facility] [address] [place] [address] [address] [place] [phone] Alonso Bae MD [address] [place] [address] [address] [place] [address] 07/17/2026 2:00 PM EDT Office Visit [facility] - Internal Medicine [address] [place] [phone] Ilya Gusman MD [address] [place] [phone] 07/19/2026 11:40 AM EDT Office Visit [facility] [address] [place] [address] Yesi Perez MD [address] [place] [address] documented as of this encounter Visit Diagnoses Not on filedocumented in this encounter Additional Health Concerns Assessment Noted Time PHQ-9 Depression Total Score: 6 04/28/20 24 1:53 PM EDT documented as of this encounter Care Teams Canvas Worker Apprentice Relationship Specialty Start Date End Date Ilya Gusman MD [address] [place] [phone] PCP - General 05/14/17 [facility] 09/01/25 documented as of this encounter
--- OUTSIDE RECORDS SUMMARY | 2025-09-23 20:59 | XMS_ITS | Encounter Summary ---
Author Organization [facility] ystem Address [address] [place] [address] Phone Care Team Providers Care Door Repairer Bus Name Role Phone Ilya Gusman MD Primary Care Provider Encounter Details Date Type Department Care Team (Late Contact Info) Description 04/04/2019 Scanned Document [facility] - Health Information Department [address] [place] [address] Scan, No Provider Available [address] [place] [address] [facility] [place] [address] <No scans attached> Social History Tobacco Use [...] [facility] - Internal Medicine [address] [place] [phone] Ilya Gusman MD [address] [place] [phone] Christophe Dailey MD [address] [place] [phone] 01/18/2026 1:00 PM EST Office Visit [facility] [address] [place] [address] Porsha Marsh, BUSINESS ANALYSIS ANALYST [address] [place] [address] 02/22/2026 11:00 AM EDT Office Visit [facility] [address] [place] [address] [address] [place] [phone] Alonso Bae MD [address] [place] [address] [address] [place] [address] 07/17/2026 2:00 PM EDT Office Visit [facility] - Internal Medicine [address] [place] [phone] Ilya Gusman MD [address] [place] [phone] 07/19/2026 11:40 AM EDT Office Visit [facility] [address] [place] [address] Yesi Perez MD [address] [place] [address] documented as of this encounter Visit Diagnoses [...] documented as of this encounter Care Teams Door Repairer Bus Relationship Specialty Start Date End Date Ilya Gusman MD [address] [place] [phone] PCP - General 05/14/17 [facility] 09/01/25 documented as of this encounter
--- OUTSIDE RECORDS SUMMARY | 2025-09-23 20:59 | XMS_ITS | Encounter Summary ---
Author Organization [facility] ystem Address [address] [place] [address] Phone Care Team Providers Care Military Source Operations Officer Name Role Phone Ilya Gusman MD Primary Care Provider [phone] Encounter Details Date Type Department Care Team (Late st Contact Info) Description 04/18/2021 Scanned Document [facility] - Health Information Department [address] [place], [place] [phone] Scan, No Provider Available [address] [facility] [place] [address] <No scans attached> Social History Tobacco Use [...] AM EST Office Visit [facility] - Internal Medicine [address] [place] [phone] Ilya Gusman MD [address] [place] [phone] Christophe Dailey MD [address] [place] [phone] 01/18/2026 1:00 PM EST Office Visit [facility] [address] [place] [address] Porsha Marsh, EDITOR CONTINUITY AND SCRIPT [address] [place] [address] 02/22/2026 11:00 AM EDT Office Visit [facility] [address] [place] [address] [address] [place] [phone] Alonso Bae MD [address] [place] [address] [address] [place] [address] 07/17/2026 2:00 PM EDT Office Visit [facility] - Internal Medicine [address] [place] [phone] Ilya Gusman MD [address] [place] [phone] 07/19/2026 11:40 AM EDT Office Visit [facility] [address] [place] [address] Yesi Perez MD [address] [place] [address] documented as of this encounter Visit Diagnoses [...] documented as of this encounter Care Teams Military Source Operations Officer Relationship Specialty Start Date End Date Ilya Gusman MD [address] [place] [phone] PCP - General 05/14/17 [facility] 09/01/25 documented as of this encounter
--- OUTSIDE RECORDS SUMMARY | 2025-09-23 20:59 | XMS_ITS | Encounter Summary ---
Author Organization [facility] ystem Address [address] [place] [address] Phone Care Team Providers Care Rn Provider Relations Name Role Phone Ilya Gusman MD Primary Care Provider [phone] Encounter Details Date Type Department Care Team (Late Contact Info) Description 04/15/2024 Scanned Document [facility] - Health Information Department [address] [place] [address] Scan, No Provider Available [address] [place] [address] [place] [address] <No scans attached> Social History Tobacco Use [...] [facility] - Internal Medicine [address] [place] [phone] Ilya Gusman MD [address] [place] [phone] Christophe Dailey MD [address] [place] [address] [phone] 01/18/2026 1:00 PM EST Office Visit [facility] [address] [place] [address] Porsha Marsh, SATELLITE PROJECT SITE MONITOR [address] [place] [address] 02/22/2026 11:00 AM EDT Office Visit [facility] [address] [place] [address] [address] [place] [phone] Alonso Bae MD [address] [place] [address] [address] [place] [address] 07/17/2026 2:00 PM EDT Office Visit [facility] - Internal Medicine [address] [place] [phone] Ilya Gusman MD [address] [place] [phone] 07/19/2026 11:40 AM EDT Office Visit [facility] [address] [place] [address] Yesi Perez MD [address] [place] [address] documented as of this encounter Visit Diagnoses [...] Date End Date Ilya Gusman MD [address] [place] [address] [phone] PCP - General 05/14/17 [facility] 09/01/25 documented as of this encounter
--- OUTSIDE RECORDS SUMMARY | 2025-09-23 20:59 | XMS_ITS | Encounter Summary ---
Author Organization [facility] ystem Address [address] [place] [address] Phone Care Team Providers Care Activity Therapist Name Role Phone Ilya Gusman MD Primary Care Provider [phone] Encounter Details Date Type Department Care Team (Late Contact Info) Description 04/13/2024 Scanned Document [facility] - Health Information Department [address] [place] [address] Scan, No Provider Available [address] [place] [address] [place] [address] <No scans attached> Social History Tobacco Use [...] Upcoming Encounters Date Type Department Care Team ([facility] Contact Info) Description 10/06/2025 10:45 AM EST Office Visit [facility] - Internal Medicine [address] [place] [phone] Ilya Gusman MD [address] [place] [phone] Christophe Dailey MD [address] [place] [address] [phone] 01/18/2026 1:00 PM EST Office Visit [facility] [address] [place] [address] Porsha Marsh, CANINE DEPUTY [address] [place] [address] 02/22/2026 11:00 AM EDT Office Visit [facility] [address] [place] [address] [address] [place] [phone] Alonso Bae MD [address] [place] [address] [address] [place] [address] 07/17/2026 2:00 PM EDT Office Visit [facility] - Internal Medicine [address] [place] [phone] Ilya Gusman MD [address] [place] [phone] 07/19/2026 11:40 AM EDT Office Visit [facility] [address] [place] [address] Yesi Perez MD [address] [place] [address] documented as of this encounter Visit Diagnoses Not on filedocumented in this encounter Additional Health Concerns Infection Onset Date Last Indicated Resolved Time C difficile Rule-Out 11/01/2024 11/02/2024 024 9:43 AM EST Assessment Noted Time PHQ-9 Depression Total Score: 9 06/05/20 20 9:52 AM EDT documented as of this encounter Care Teams Activity Therapist Relationship Specialty Start Date End Date Ilya Gusman MD [address] [place] [address] [phone] PCP - General 05/14/17 [facility] 09/01/25 documented as of this encounter
--- OUTSIDE RECORDS SUMMARY | 2025-09-23 20:59 | XMS_ITS | Encounter Summary ---
Author Organization [facility] Address [address] [place] [address] Phone Care Team Providers Care Stamp Mounter Name Role Phone Ilya Gusman MD Primary Care Provider [phone] Reason for Visit * Reason Onset Date Comments Med Refill 02/23/2025 Encounter Details Date Type Department Care Team (Late st Contact Info) Description 02/23/2025 Refill [facility] - Internal Medicine [address] [place] [phone] Christophe Dailey MD [address] [place] [phone] Med Refill Social History Tobacco Use [...] encounter Miscellaneous Notes * Telephone Encounter - Ember Martinez PhT - 02/23/2025 3:05 PM EDT Dilaudid 4mg Pharmacy: [facility] DATE OF LAST REFILL? 02/12/24 FREQUENCY OF REFILLS? 14 days DATE REFILL IS DUE? 02/25/25 IS THIS AN EARLY REFILL? No DATE OF LAST OFFICE VISIT: 02/04/25 DATE OF NEXT OFFICE VISIT: Future Appointments Date Time Provider Department Center 05/20/2025 10:00 AM Ilya Gusman MD [facility] 07/14/2025 2:00 PM Yesi Perez MD [facility] Card [facility] 08/24/2025 11:00 AM Alonso Bae MD [facility] ORNAMENTAL IRON WORKER APPRENTICE reviewed on 02/23/2025 by Ian Muñoz and no red flags were noted Ian Muñoz Refill Team documented in this encounter Plan of Treatment Upcoming Encounters Date Type Department Care Team (Late st Contact Info) Description 10/06/2025 10:45 AM EST Office Visit [facility] - Internal Medicine [address] [place] [phone] Ilya Gusman MD [address] [place] [address] [phone] Christophe Dailey MD [address] [place] [address] [phone] 01/18/2026 1:00 PM EST Office Visit [facility] [address] [facility] 1 [place] [address] Porsha Marsh, MARILIA [address] [place] [address] 02/22/2026 11:00 AM EDT Office Visit [facility] [address] [place] [address] [address] [place] [phone] Alonso Bae MD [address] [place] [address] [address] [place] [address] 07/17/2026 2:00 PM EDT Office Visit [facility] - Internal Medicine [address] [place] [address] Ilya Gusman MD [address] [place] [phone] 07/19/2026 11:40 AM EDT Office Visit [facility] [address] [address] Yesi Perez MD 70 [place] [address] documented as of this encounter Visit Diagnoses Not on filedocumented in this encounter Additional Health Concerns Assessment Noted Time PHQ-9 Depression Total Score: 6 04/28/20 24 1:53 PM EDT documented as of this encounter Care Teams Stamp Mounter Relationship Specialty Start Date End Date Ilya Gusman MD [address] [place] [address] [phone] PCP - General 05/14/17 [facility] 09/01/25 documented as of this encounter
--- OUTSIDE RECORDS SUMMARY | 2025-09-23 20:59 | XMS_ITS | Encounter Summary ---
Author Organization [facility] ystem Address [address] [place] [address] Phone Care Team Providers Care Signals Intelligence Analyst Name Role Phone Ilya Gusman MD Primary Care Provider Encounter Details Date Type Department Care Team (Late Contact Info) Description 08/09/2019 Procedure Pass [facility] [place] [address] [place] [phone] Social History Tobacco Use Types [...] [facility] - Internal Medicine [address] [place] [phone] Ilya Gusman MD [address] [place] [phone] Christophe Dailey MD [address] [place] [phone] 01/18/2026 1:00 PM EST Office Visit [facility] [address] [place] [address] Porsha Marsh, COMPOSING ROOM MACHINIST [address] [place] [address] 02/22/2026 11:00 AM EDT Office Visit [facility] [address] [place] [address] [address] [place] [address] Alonso Bae MD [address] [place] [address] [address] [place] [address] 07/17/2026 2:00 PM EDT Office Visit [facility] - Internal Medicine [address] [place] [phone] Ilya Gusman MD [address] [place] [phone] 07/19/2026 11:40 AM EDT Office Visit [facility] [address] [place] [address] Yesi Perez MD [address] [place] [address] documented as of this encounter Visit Diagnoses [...] documented as of this encounter Care Teams Signals Intelligence Analyst Relationship Specialty Start Date End Date Ilya Gusman MD [address] [place] [phone] PCP - General 05/14/17 [facility] 09/01/25 documented as of this encounter
--- OUTSIDE RECORDS SUMMARY | 2025-09-23 20:59 | XMS_ITS | Encounter Summary ---
Author Organization [facility] ystem Address [address] [place] [address] Phone Care Team Providers Care Tier And Detonator Name Role Phone Ilya Gusman MD Primary Care Provider Encounter Details Date Type Department Care Team (Late Contact Info) Description 07/12/2019 Scanned Document [facility] - Health Information Department [address] [place] [phone] Scan, No Provider Available [address] [place] [address] [facility] [place] [address] <No scans attached> Social History Tobacco Use [...] 10:45 AM EST Office Visit [facility] - Internal Medicine [address] [place] [phone] Ilya Gusman MD [address] [place] [phone] Christophe Dailey MD [address] [place] [phone] 01/18/2026 1:00 PM EST Office Visit [facility] [address] [place] [phone] Porsha Marsh, COPPER MINER BLASTING [address] [place] [address] 02/22/2026 11:00 AM EDT Office Visit [facility] [address] [place] [address] [address] [place] [phone] Alonso Bae MD [address] [place] [address] [address] [place] [address] 07/17/2026 2:00 PM EDT Office Visit [facility] - Internal Medicine [address] [place] [phone] Ilya Gusman MD [address] [place] [phone] 07/19/2026 11:40 AM EDT Office Visit [facility] [address] [place] [phone] Yesi Perez MD [address] [place] [phone] documented as of this encounter Visit Diagnoses [...] documented as of this encounter Care Teams Tier And Detonator Relationship Specialty Start Date End Date Ilya Gusman MD [address] [place] [phone] PCP - General 05/14/17 [facility] 09/01/25 documented as of this encounter
--- OUTSIDE RECORDS SUMMARY | 2025-09-23 20:59 | XMS_ITS | Encounter Summary ---
Author Organization [facility] ystem Address [address] [place] [address] Phone Care Team Providers Care Respiratory Care Assistant Name Role Phone Ilya Gusman MD Primary Care Provider [phone] Encounter Details Date Type Department Care Team (Late Contact Info) Description 03/26/2025 Procedure Pass [facility] [place] - MR Imaging [address] [place] [address] Social History Tobacco Use Types [...] [facility] - Internal Medicine [address] [place] [phone] Ilya Gusman MD [address] [place] [phone] Christophe Dailey MD [address] [place] [phone] 01/18/2026 1:00 PM EST Office Visit [facility] [address] [place] [address] Porsha Marsh, VEGETABLE LOADER 70 [place] [address] 02/22/2026 11:00 AM EDT Office Visit [facility] [address] [place] [address] [address] [place] [phone] Alonso Bae MD [address] [place] [address] 2 [place] [address] 07/17/2026 2:00 PM EDT Office Visit [facility] - Internal Medicine [address] [place] [phone] Ilya Gusman MD [address] [place] [phone] 07/19/2026 11:40 AM EDT Office Visit [facility] [address] [place] [address] Yesi Perez MD [address] [place] [address] documented as of this encounter Visit Diagnoses Not on filedocumented in this encounter Additional Health Concerns Assessment Noted Time PHQ-9 Depression Total Score: 6 04/28/20 24 1:53 PM EDT documented as of this encounter Care Teams Respiratory Care Assistant Relationship Specialty Start Date End Date Ilya Gusman MD [address] [place] [phone] PCP - General 05/14/17 [facility] 09/01/25 documented as of this encounter
--- OUTSIDE RECORDS SUMMARY | 2025-09-23 20:59 | XMS_ITS | Encounter Summary ---
Author Organization [facility] ystem Address [address] [place] [address] Phone Care Team Providers Care Dry Transfer Worker Name Role Phone Ilya Gusman MD Primary Care Provider [phone] Encounter Details Date Type Department Care Team (Late st Contact Info) Description 08/04/2019 Procedure Pass [facility] - MR Imaging [address] [place] [address] Social History Tobacco Use Types [...] Sign Reading Time Taken Comments Blood Pressure - - Pulse - - Temperature - - Respiratory Rate - - Oxygen Saturation - - Inhaled Oxygen Concentration - - Weight 86.2 kg (190 lb) 08/04/2019 3:15 AM EDT Height 175.3 cm (5' 9 ) 08/04/2019 3:15 AM EDT Body Mass Index 28.06 08/04/2019 3:15 AM EDT documented in this encounter Plan of Treatment Upcoming Encounters Date Type Department Care Team (Late st Contact Info) Description 10/06/2025 10:45 AM EST Office Visit [facility] - Internal Medicine [address] [place] [phone] Ilya Gusman MD [address] [place] [phone] Christophe Dailey MD [address] [place] [phone] 01/18/2026 1:00 PM EST Office Visit [facility] [address] [place] [address] Porsha Marsh, IMPORT COORDINATOR 70 [place] [address] 02/22/2026 11:00 AM EDT Office Visit [facility] [address] [place] [address] [address] [place] [phone] Alonso Bae MD [address] [place] [address] [address] [place] [address] 07/17/2026 2:00 PM EDT Office Visit [facility] - Internal Medicine [address] [place] [phone] Ilya Gusman MD [address] [place] [phone] 07/19/2026 11:40 AM EDT Office Visit [facility] [address] [place] [address] Yesi Perez MD 70 [place] [address] documented as of this encounter Visit Diagnoses [...] documented as of this encounter Care Teams Dry Transfer Worker Relationship Specialty Start Date End Date Ilya Gusman MD [address] [place] [address] [phone] PCP - General 05/14/17 [facility] 09/01/25 documented as of this encounter
--- OUTSIDE RECORDS SUMMARY | 2025-09-23 20:59 | XMS_ITS | Encounter Summary ---
Author Organization [facility] ystem Address [address] [place] [address] Phone Care Team Providers Care Dexigraph Operator Name Role Phone Ilya Gusman MD Primary Care Provider [phone] Encounter Details Date Type Department Care Team (Late Contact Info) Description 03/02/2019 Scanned Document [facility] - Health Information Department [address] [place] [phone] Scan, No Provider Available [address] [place] [address] [facility] [place] [address] <No scans attached> Social History Tobacco Use [...] Description 10/06/2025 10:45 AM EST Office Visit [facility] - Internal Medicine [address] [place] [phone] Ilya Gusman MD [address] [place] [phone] Christophe Dailey MD [address] [place] [phone] 01/18/2026 1:00 PM EST Office Visit [facility] [address] [place] [address] Porsha Marsh, ORDER PACKER OR PACKAGER [address] [place] [address] 02/22/2026 11:00 AM EDT Office Visit [facility] [address] [place] [address] [address] [place] [phone] Alonso Bae MD [address] [place] [address] [address] [place] [address] 07/17/2026 2:00 PM EDT Office Visit [facility] - Internal Medicine [address] [place] [phone] Ilya Gusman MD [address] [place] [phone] 07/19/2026 11:40 AM EDT Office Visit [facility] [address] [place] [address] Yesi Perez MD [address] [place] [address] documented as of this encounter Visit Diagnoses [...] documented as of this encounter Care Teams Dexigraph Operator Relationship Specialty Start Date End Date Ilya Gusman MD [address] [place] [phone] PCP - General 05/14/17 [facility] 09/01/25 documented as of this encounter
--- OUTSIDE RECORDS SUMMARY | 2025-09-23 21:01 | XMS_ITS | Encounter Summary ---
Author Organization [facility] ystem Address [address] [place] [address] Phone Care Team Providers Care Sourcing Manager Name Role Phone Ilya Gusman MD Primary Care Provider [phone] Encounter Details Date Type Department Care Team (Late Contact Info) Description 07/07/2019 Scanned Document [facility] - Health Information Department [address] [place] [address] Scan, No Provider Available [address] [place] [address] [place] [address] <No scans attached> Social History Tobacco Use [...] [facility] - Internal Medicine [address] [place] [phone] Ilya Gusman MD [address] [place] [phone] Christophe Dailey MD [address] [place] [phone] 01/18/2026 1:00 PM EST Office Visit [facility] [address] [place] [phone] Porsha Marsh, PIPING DESIGN SPECIALIST [address] [place] [address] 02/22/2026 11:00 AM EDT Office Visit [facility] [address] [place] [address] [address] [place] [phone] Alonso Bae MD [address] [place] [address] [address] [place] [address] 07/17/2026 2:00 PM EDT Office Visit [facility] - Internal Medicine [address] [place] [phone] Ilya Gusman MD [address] [place] [phone] 07/19/2026 11:40 AM EDT Office Visit [facility] [address] [place] [address] Yesi Perez MD [address] [place] [address] documented as of this encounter Visit Diagnoses [...] documented as of this encounter Care Teams Sourcing Manager Relationship Specialty Start Date End Date Ilya Gusman MD [address] [place] [phone] PCP - General 05/14/17 [facility] 09/01/25 documented as of this encounter
--- OUTSIDE RECORDS SUMMARY | 2025-09-23 21:01 | XMS_ITS | Encounter Summary ---
Author Organization [facility] ystem Address [address] [place] [address] Phone Care Team Providers Care Top Distribution Executive Name Role Phone Ilya Gusman MD Primary Care Provider [phone] Encounter Details Date Type Department Care Team (Late Contact Info) Description 09/03/2019 Scanned Document [facility] - Health Information Department [address] [place] [address] Scan, No Provider Available [address] [place] [address] [facility] [place] [address] <No scans attached> Social History Tobacco Use [...] 10/06/2025 10:45 AM EST Office Visit [facility] - Internal Medicine [address] [place] [phone] Ilya Gusman MD [address] [place] [phone] Christophe Dailey MD [address] [place] [phone] 01/18/2026 1:00 PM EST Office Visit [facility] [address] [place] [address] Porsha Marsh, JOB SITE SUPERINTENDENT [address] [place] [address] 02/22/2026 11:00 AM EDT Office Visit [facility] [address] [place] [address] [address] [place] [phone] Alonso Bae MD [address] [place] [address] [address] [place] [address] 07/17/2026 2:00 PM EDT Office Visit [facility] - Internal Medicine [address] [place] [phone] Ilya Gusman MD [address] [place] [phone] 07/19/2026 11:40 AM EDT Office Visit [facility] [address] [place] [address] Yesi Perez MD [address] [place] [address] documented as of this encounter Visit Diagnoses [...] documented as of this encounter Care Teams Top Distribution Executive Relationship Specialty Start Date End Date Ilya Gusman MD [address] [place] [address] [phone] PCP - General 05/14/17 [facility] 09/01/25 documented as of this encounter
--- OUTSIDE RECORDS SUMMARY | 2025-09-23 21:01 | XMS_ITS | Encounter Summary ---
[facility] Organization [facility] Address [address] [place] [address] Phone Care Team Providers Care Hand Leather Trimmer Name Role Phone Ilya Gusman MD Primary Care Provider [phone] Reason for Visit * Reason Onset Date Comments Med Refill 09/27/2019 Encounter Details Date Type Department Care Team (Late st Contact Info) Description 09/27/2019 Refill [facility] - Internal Medicine [address] [place] [phone] Christophe Dailey MD [address] [place] [phone] Med Refill Social History Tobacco Use [...] Telephone Encounter - Sheron Hoover PhT - 09/28/2019 11:35 AM EST Oxycodone 10mg Pharmacy: DATE OF LAST REFILL? 09/21/19 FREQUENCY OF REFILLS? 7 days DATE REFILL IS DUE? 09/28/19 IS THIS AN EARLY REFILL? No CONTROLLED SUBSTANCE AGREEMENT ON FILE? Yes Last UDS: 08/04/19 DATE OF LAST OFFICE VISIT: 09/08/19 DATE OF NEXT OFFICE VISIT: Future Appointments Date Time Provider Department Center 10/06/2019 10:30 AM Christophe Dailey MD [facility] IM [facility] 11/08/2019 12:40 PM Ilya Gusman MD [facility] IM [facility] 12/02/2019 10:00 AM Alejandro Lion MD NEV NEUROSP NEV SOFTWARE ENGINEER INTERN reviewed on 09/28/2019 by Ian SORIA and no red flags were noted Ian Soria/MS Refill Team, Lo documented in this encounter Plan of Treatment Upcoming Encounters Date Type Department Care Team (Late st Contact Info) Description 10/06/2025 10:45 AM EST Office Visit [facility] - Internal Medicine [address] [place] [phone] Ilya Gusman MD [address] [place] [address] [phone] Christophe Dailey MD [address] [place] [phone] 01/18/2026 1:00 PM EST Office Visit [facility] [address] [address] Porsha Marsh, BEHAVIOR ANALYST 70 [place] [address] 02/22/2026 11:00 AM EDT Office Visit [facility] [address] [facility] [address] [place] [phone] Alonso Bae MD [address] [facility] [address] [place] [address] 07/17/2026 2:00 PM EDT Office Visit [facility] - Internal Medicine [address] [place] [phone] Ilya Gusman MD [address] [place] [phone] 07/19/2026 11:40 AM EDT Office Visit [facility] 70 [facility] 1 [place] [address] Yesi Perez MD 70 [place] [address] documented as of this encounter Visit Diagnoses [...] as of this encounter Care Teams Hand Leather Trimmer Relationship Specialty Start Date End Date Ilya Gusman MD [address] [place] [phone] PCP - General 05/14/17 [facility] 09/01/25 documented as of this encounter
--- OUTSIDE RECORDS SUMMARY | 2025-09-23 21:01 | XMS_ITS | Encounter Summary ---
[facility] Address [address] [place] [address] Phone Care Team Providers Care Acquisition Marketing Manager Name Role Phone Ilya Gusman MD Primary Care Provider [phone] Reason for Visit * Reason Onset Date Comments Med Refill 10/04/2019 Encounter Details Date Type Department Care Team (Late st Contact Info) Description 10/04/2019 Refill [facility] - Internal Medicine [address] [place] [phone] Ilya Gusman MD [address] [place] [phone] Med Refill Social History Tobacco Use [...] Miscellaneous Notes * Telephone Encounter - Kristina Schneider PhT - 10/05/2019 8:17 AM EST Refill Oxycodone 10mg #21 Pharmacy: [facility] DATE OF LAST REFILL? 09/29/19 FREQUENCY OF REFILLS? 7 days DATE REFILL IS DUE? 10/06/19. Pt has appt w/ Dr Dailey tomorrow. Med not pending in case changes are to be made IS THIS AN EARLY REFILL? No CONTROLLED SUBSTANCE AGREEMENT ON FILE? Yes Last UDS: 08/04/19 DATE OF LAST OFFICE VISIT: 09/17/19 DATE OF NEXT OFFICE VISIT: Future Appointments Date Time Provider Department Center 10/06/2019 10:30 AM Christophe Dailey MD Q[facility] IM QCY 11/08/2019 12:40 PM Ilya Gusman MD LNG IM LNG 12/02/2019 10:00 AM Alejandro Lion MD NEV NEUROSP NEV POND TENDER reviewed on 10/05/2019 by Ian BARNETT and no red flags were noted Kristina Schneider [facility] Refill Team [employer] documented in this encounter Plan of Treatment Upcoming Encounters Date Type Department Care Team (Late st Contact Info) Description 10/06/2025 10:45 AM EST Office Visit [facility] - Internal Medicine [address] [place] [phone] Ilya Gusman MD [address] [place] [phone] Christophe Dailey MD [address] [place] [address] [phone] 01/18/2026 1:00 PM EST Office Visit [facility] [address] [address] Porsha Marsh, ACCOUNTING MANAGER [address] [place] [address] 02/22/2026 11:00 AM EDT Office Visit [facility] [address] [facility] [address] [place] [phone] Alonso Bae MD 780 [facility] [address] [place] [address] 07/17/2026 2:00 PM EDT Office Visit [facility] - Internal Medicine [address] [place] [phone] Ilya Gusman MD [address] [place] [address] [phone] 07/19/2026 11:40 AM EDT Office Visit [facility] 70 [facility] 1 [place] [address] Yesi Perez MD 70 [place] [address] documented as of this encounter Visit Diagnoses [...] documented as of this encounter Care Teams Acquisition Marketing Manager Relationship Specialty Start Date End Date Ilya Gusman MD [address] [place] [address] [phone] PCP - General 05/14/17 [facility] 09/01/25 documented as of this encounter
--- OUTSIDE RECORDS SUMMARY | 2025-09-23 21:01 | XMS_ITS | Encounter Summary ---
Author Organization [facility] ystem Address [address] [place] [address] Phone Care Team Providers Care Reconciliation Coordinator Name Role Phone Ilya Gusman MD Primary Care Provider [phone] Encounter Details Date Type Department Care Team (Late st Contact Info) Description 05/05/2025 Scanned Document [facility] - Health Information Department [address] [place], [place] [phone] Scan, No Provider Available [address] [place] [address] [place] [address] <No scans attached> Social History Tobacco Use Types Packs/Day Years Used Date Smoking Tobacco: Never Smokeless Tobacco: Never Alcohol Use Standard Drinks/Week Comments No 0 (1 standard drink = 0.6 oz pur e alcohol) 2019 sober OASIS D0700: Social Isolation Answer Da te [...] Visit [facility] - Internal Medicine [address] [place] [phone] Ilya Gusman MD [address] [place] [phone] Christophe Dailey MD [address] [place] [phone] 01/18/2026 1:00 PM EST Office Visit [facility] [address] [address] Porsha Marsh, LEASING COORDINATOR 70 [place] [address] 02/22/2026 11:00 AM EDT Office Visit [facility] [address] [place] [address] [address] [place] [phone] Alonso Bae MD [address] [place] [address] [address] [place] [address] 07/17/2026 2:00 PM EDT Office Visit [facility] - Internal Medicine [address] [place] [phone] Ilya Gusman MD [address] [place] [phone] 07/19/2026 11:40 AM EDT Office Visit [facility] [address] [place] [address] Yesi Perez MD 70 [place] [address] documented as of this encounter Visit Diagnoses Not on filedocumented in this encounter Additional Health Concerns Assessment Noted Time PHQ-9 Depression Total Score: 6 04/28/20 24 1:53 PM EDT documented as of this encounter Care Teams Reconciliation Coordinator Relationship Specialty Start Date End Date Ilya Gusman MD [address] [place] [address] [phone] PCP - General 05/14/17 [facility] 09/01/25 documented as of this encounter
--- OUTSIDE RECORDS SUMMARY | 2025-09-23 21:01 | XMS_ITS | Encounter Summary ---
Author Organization [facility] ystem Address [address] [place] [address] Phone Care Team Providers Care De Alcholizer Name Role Phone Ilya Gusman MD Primary Care Provider [phone] Encounter Details Date Type Department Care Team (Late st Contact Info) Description 05/23/2025 Scanned Document [facility] - Health Information Department [address] [place], [place] [phone] Scan, No Provider Available [address] [facility] [place] [address] <No scans attached> Social History Tobacco Use [...] [facility] - Internal Medicine [address] [place] [phone] Ilya Gusman MD [address] [place] [phone] Christophe Dailey MD [address] [place] [phone] 01/18/2026 1:00 PM EST Office Visit [facility] [address] [address] Porsha Marsh CNP 70 [place] [address] 02/22/2026 11:00 AM EDT Office Visit [facility] [address] [place] [phone] Alonso Bae MD [address] [place] [address] 07/17/2026 2:00 PM EDT Office Visit [facility] - Internal Medicine [address] [place] [phone] Ilya Gusman MD [address] [place] [phone] 07/19/2026 11:40 AM EDT Office Visit [facility] [address] [address] Yesi Perez MD 70 [place] [address] documented as of this encounter Visit Diagnoses Not on filedocumented in this encounter Additional Health Concerns Assessment Noted Time PHQ-9 Depression Total Score: 14 025 9:49 AM EDT documented as of this encounter Care Teams De Alcholizer Relationship Specialty Start Date End Date Ilya Gusman MD [address] [place] [phone] PCP - General 05/14/17 [facility] 09/01/25 documented as of this encounter
--- OUTSIDE RECORDS SUMMARY | 2025-09-23 21:01 | XMS_ITS | Encounter Summary ---
Author Organization [facility] Address [address] [place] [address] Phone Care Team Providers Care Cilnical Scientist Name Role Phone Ilya Gusman MD Primary Care Provider [phone] Reason for Visit * Reason Onset Date Comments Med Refill 12/16/2018 Encounter Details Date Type Department Care Team ([facility] Contact Info) Description 12/16/2018 Refill [facility] - Internal Medicine [address] [place] [phone] Christophe Dailey MD [address] [place] [phone] Med Refill Social History Tobacco Use [...] [facility] [address] [place] [phone] Ilya Gusman MD [address] [place] [phone] Christophe Dailey MD [address] [place] [phone] 01/18/2026 1:00 PM EST Office Visit [facility] [address] [place] [address] Porsha Marsh, [address] [address] 02/22/2026 11:00 AM EDT Office Visit [facility] [address] [place] [address] [address] [place] [phone] Alonso Bae MD [address] [place] [address] [address] [place] [address] 07/17/2026 2:00 PM EDT Office Visit [facility] - Internal Medicine [address] [place] [phone] Ilya Gusman MD [address] [place] [phone] 07/19/2026 11:40 AM EDT Office Visit [facility] [address] [place] [address] Yesi Perez MD [address] [place] [address] documented as of this encounter Visit Diagnoses [...] documented as of this encounter Care Teams Cilnical Scientist Relationship Specialty Start Date End Date Ilya Gusman MD [address] [place] [address] [phone] PCP - General 05/14/17 [facility] 09/01/25 documented as of this encounter
--- OUTSIDE RECORDS SUMMARY | 2025-09-23 21:01 | XMS_ITS | Encounter Summary ---
Author Organization [facility] ystem Address [address] [place] [address] Phone Care Team Providers Care Surgical Scrub Technologist Name Role Phone Ilya Gusman MD Primary Care Provider [phone] Encounter Details Date Type Department Care Team (Late st Contact Info) Description 04/11/2025 Scanned Document [facility] - Health Information Department [address] [place], [place] [id number] Scan, No Provider Available [address] [place] [address] [place] [address] <No scans attached> Social History Tobacco Use [...] [facility] - Internal Medicine [address] [place] [phone] Iyla Gusman MD [address] [place] [phone] Christophe Dailey MD [address] [place] [phone] 01/18/2026 1:00 PM EST Office Visit [facility] [address] [address] Porsha Marsh, SALES AGENT CASUALTY INSURANCE 70 [place] [address] 02/22/2026 11:00 AM EDT Office Visit [facility] [address] [place] [address] [address] [place] [phone] Alonso Bae MD [address] [place] [address] [address] [place] [address] 07/17/2026 2:00 PM EDT Office Visit [facility] - Internal Medicine [address] [place] [phone] Ilya Gusman MD [address] [place] [address] [phone] 07/19/2026 11:40 AM EDT Office Visit [facility] [address] [place] [phone] Yesi Perez MD 70 [place] [address] documented as of this encounter Visit Diagnoses Not on filedocumented in this encounter Additional Health Concerns Assessment Noted Time PHQ-9 Depression Total Score: 6 04/28/20 24 1:53 PM EDT documented as of this encounter Care Teams Surgical Scrub Technologist Relationship Specialty Start Date End Date Ilya Gusman MD [address] [place] [address] [phone] PCP - General 05/14/17 [facility] 09/01/25 documented as of this encounter
--- OUTSIDE RECORDS SUMMARY | 2025-09-23 21:01 | XMS_ITS | Encounter Summary ---
Author Organization [facility] Address [address] [place] [address] Phone Care Team Providers Care Director Of Enrollment Name Role Phone Ilya Gusman MD Primary Care Provider [phone] Reason for Visit * Reason Onset Date Comments Med Refill 05/19/2025 Encounter Details Date Type Department Care Team (Late Contact Info) Description 05/19/[address] [facility] - Internal Medicine [address] [place] [phone] Christophe Dailey MD [address] [place] [phone] Med Refill Social History Tobacco Use [...] Telephone Encounter - Christophe Dailey MD - 05/23/2025 11:57 AM EDT Patient should schedule a med check with me. * Telephone Encounter - Sarahy Henderson PhT - 05/23/2025 11:52 AM EDT Pt calling out of med, pending to provider that writes rx thank you Ian Pierson REFILL SPECIALIST * Telephone Encounter - Ember Martinez PhT - 05/19/2025 4:49 PM EDT Dilaudid 4mg Pharmacy: [facility] DATE OF LAST REFILL? 05/06/25 FREQUENCY OF REFILLS? 14 days DATE REFILL IS DUE? 05/20/25 IS THIS AN EARLY REFILL? No Last Urine Drug Screen date: 08/06/2021 Last Opioid Treatment Agreement date: 09/25/2018 DATE OF LAST OFFICE VISIT: 03/18/25 DATE OF NEXT OFFICE VISIT: Future Appointments Date Time Provider Department Center 05/20/2025 10:00 AM Ilya Gusman MD [facility] 07/18/2025 10:40 AM Porsha Marsh CNP [facility] C[facility]IO SS Card [facility] 07/18/2025 2:00 PM Porsha Marsh CNP WEY CARDIO SS Card Wejose daniel 08/24/2025 11:00 AM Alonso Bae MD WE[facility] URO WEY IT OPERATIONS SPECIALIST reviewed on 05/19/2025 by Ian Muñoz and no red flags were noted Ember Martinez PhT Refill Team documented in this encounter Plan of Treatment Upcoming Encounters Date Type Department Care Team (Late st Contact Info) Description 10/06/2025 10:45 AM EST Office Visit [facility] - Internal Medicine [address] [place] [phone] Ilya Gusman MD [address] [place] [phone] Christophe Dailey MD [address] [place] [phone] 01/18/2026 1:00 PM EST Office Visit [facility] [address] [place] [address] Porsha Marsh, GREEN HOUSE MANAGER 70 [place] [address] 02/22/2026 11:00 AM EDT Office Visit [facility] [address] [place] [address] [address] [place] [phone] Alonso Bae MD [address] [place] [address] [address] [place] [address] 07/17/2026 2:00 PM EDT Office Visit [facility] - Internal Medicine [address] [place] [phone] Ilya Gusman MD [address] [place] [phone] 07/19/2026 11:40 AM EDT Office Visit [facility] [address] [place] [address] Yesi Perez MD 70 [place] [address] documented as of this encounter Visit Diagnoses Diagnosis Chronic low back pain, unspecified back pain laterality, unspecified whether sciatica present- Primary Chronic pain syndrome documented in this encounter Additional Health Concerns Assessment Noted Time PHQ-9 Depression Total Score: 6 04/28/20 24 1:53 PM EDT documented as of this encounter Care Teams Director Of Enrollment Relationship Specialty Start Date End Date Ilya Gusman MD [address] [place] [phone] PCP - General 05/14/17 [facility] 09/01/25 documented as of this encounter
--- OUTSIDE RECORDS SUMMARY | 2025-09-23 21:01 | XMS_ITS | Encounter Summary ---
Author Organization [facility] ystem Address [address] [place] [address] Phone Care Team Providers Care Medical Genetics Director Name Role Phone Ilya Gusman MD Primary Care Provider [phone] Encounter Details Date Type Department Care Team (Late Contact Info) Description 09/24/2019 Scanned Document [facility] - Health Information Department 143 [place] [address] Scan, No Provider Available [address] [place] [address] [place] [address] <No scans attached> Social History Tobacco Use [...] [facility] - Internal Medicine [address] [place] [phone] Ilya Gusman MD [address] [place] [phone] Christophe Dailey MD [address] [place] [phone] 01/18/2026 1:00 PM EST Office Visit [facility] [address] [place] [address] Porsha Marsh, DESIGN MANAGER [address] [place] [address] 02/22/2026 11:00 AM EDT Office Visit [facility] [address] [place] [address] [address] [place] [phone] Alonso Bae MD [address] [place] [address] [address] [place] [address] 07/17/2026 2:00 PM EDT Office Visit [facility] - Internal Medicine [address] [place] [phone] Ilya Gusman MD [address] [place] [phone] 07/19/2026 11:40 AM EDT Office Visit [facility] [address] [place] [address] Yesi Perez MD [address] [place] [address] documented as of this encounter Visit Diagnoses [...] as of this encounter Care Teams Medical Genetics Director Relationship Specialty Start Date End Date Ilya Gusman MD [address] [place] [address] [phone] PCP - General 05/14/17 [facility] 09/01/25 documented as of this encounter
--- OUTSIDE RECORDS SUMMARY | 2025-09-23 21:01 | XMS_ITS | Encounter Summary ---
Author Organization [facility] ystem Address [address] [place] [address] Phone Care Team Providers Care Subscription Agent Name Role Phone Ilya Gusman MD Primary Care Provider [phone] Encounter Details Date Type Department Care Team (Late st Contact Info) Description 04/08/2025 Scanned Document [facility] - Health Information Department 143 [place], [place] [phone] Scan, No Provider Available [address] [facility] [place] [address] <No scans attached> Social History Tobacco Use [...] 10:45 AM EST Office Visit [facility] - Internal Medicine [address] [place] [phone] Ilya Gusman MD [address] [place] [phone] Christophe Dailey MD [address] [place] [phone] 01/18/2026 1:00 PM EST Office Visit [facility] [address] [address] Porsha Marsh, SENIOR ASSOCIATE 70 [place] [address] 02/22/2026 11:00 AM EDT Office Visit [facility] [address] [place] [place] [address] [address] [place] [phone] Alonso Bae MD [address] [place] [address] [address] [place] [address] 07/17/2026 2:00 PM EDT Office Visit [facility] - Internal Medicine [address] [place] [phone] Ilya Gusman MD [address] [place] [address] [phone] 07/19/2026 11:40 AM EDT Office Visit [facility] [address] [place] [address] Yesi Perez MD 70 [place] [address] documented as of this encounter Visit Diagnoses Not on filedocumented in this encounter Additional Health Concerns Assessment Noted Time PHQ-9 Depression Total Score: 6 04/28/20 24 1:53 PM EDT documented as of this encounter Care Teams Subscription Agent Relationship Specialty Start Date End Date Ilya Gusman MD [address] [place] [address] [phone] PCP - General 05/14/17 [facility] 09/01/25 documented as of this encounter
--- OUTSIDE RECORDS SUMMARY | 2025-09-23 21:01 | XMS_ITS | Encounter Summary ---
Author Organization [facility] ystem Address [address] [place] [address] Phone Care Team Providers Care Frame Sample And Pattern Supervisor Name Role Phone Ilya Gusman MD Primary Care Provider [phone] Encounter Details Date Type Department Care Team (Late st Contact Info) Description 04/07/2025 Scanned Document [facility] - Health Information Department 143 [place], [place] [phone] Scan, No Provider Available [address] [place] [address] [place] [address] <No scans attached> Social History Tobacco Use [...] [facility] - Internal Medicine [address] [place] [phone] Ilya Gusman MD [address] [place] [phone] Christophe Dailey MD [address] [place] [phone] 01/18/2026 1:00 PM EST Office Visit [facility] [address] [address] Porsha Marsh, QUALITY ASSURANCE PROJECT MANAGER 70 [place] [address] 02/22/2026 11:00 AM EDT Office Visit [facility] [address] [place] [address] [address] [place] [phone] Alonso Bae MD [address] [place] [address] [address] [place] [address] 07/17/2026 2:00 PM EDT Office Visit [facility] - Internal Medicine [address] [place] [phone] lIya Gusman MD [address] [place] [address] [phone] 07/19/2026 11:40 AM EDT Office Visit [facility] [address] [place] [address] Yesi Perez MD 70 [place] [address] documented as of this encounter Visit Diagnoses Not on filedocumented in this encounter Additional Health Concerns Assessment Noted Time PHQ-9 Depression Total Score: 6 04/28/20 24 1:53 PM EDT documented as of this encounter Care Teams Frame Sample And Pattern Supervisor Relationship Specialty Start Date End Date Ilya Gusman MD [address] [place] [address] [phone] PCP - General 05/14/17 [facility] 09/01/25 documented as of this encounter
--- OUTSIDE RECORDS SUMMARY | 2025-09-23 21:01 | XMS_ITS | Encounter Summary ---
Author Organization [facility] ystem Address [address] [place] [address] Phone Care Team Providers Care Photographic Enlarger Operator Name Role Phone Ilya Gusman MD Primary Care Provider [phone] Encounter Details Date Type Department Care Team (Late Contact Info) Description 08/28/2019 Scanned Document [facility] - Health Information Department 143 [place] [address] Scan, No Provider Available [address] [place] [address] [facility] [place] [address] <No scans attached> Social History Tobacco Use [...] 10/06/2025 10:45 AM EST Office Visit [facility] - Internal Medicine [address] [place] [phone] Ilya Gusman MD [address] [place] [phone] Christophe Dailey MD [address] [place] [phone] 01/18/2026 1:00 PM EST Office Visit [facility] [address] [place] [address] Porsha Marsh, PIPE THREADER [address] [place] [address] 02/22/2026 11:00 AM EDT Office Visit [facility] [address] [place] [address] [address] [place] [phone] Alosno Bae MD [address] [place] [address] [address] [place] [address] 07/17/2026 2:00 PM EDT Office Visit [facility] - Internal Medicine [address] [place] [address] [phone] Ilya Gusman MD [address] [place] [phone] 07/19/2026 11:40 AM EDT Office Visit [facility] [address] [place] [address] Yesi Perez MD [address] [place] [address] documented as of this encounter Visit Diagnoses [...] documented as of this encounter Care Teams Photographic Enlarger Operator Relationship Specialty Start Date End Date Ilya Gusman MD [address] [place] [address] [phone] PCP - General 05/14/17 [facility] 09/01/25 documented as of this encounter
--- OUTSIDE RECORDS SUMMARY | 2025-09-23 21:01 | XMS_ITS | Encounter Summary ---
Author Organization [facility] ystem Address [address] [place] [address] Phone Care Team Providers Care Special Education Administrator Name Role Phone Ilya Gusman MD Primary Care Provider [phone] Encounter Details Date Type Department Care Team (Late Contact Info) Description 10/20/2019 Scanned Document [facility] - Health Information Department 143 [place] [address] Scan, No Provider Available [address] [place] [address] [place] [address] <No scans attached> Social History Tobacco Use [...] 10/06/2025 10:45 AM EST Office Visit [facility] - Internal Medicine [address] [place] [phone] Ilya Gusman MD [address] [place] [phone] Christophe Dailey MD [address] [place] [phone] 01/18/2026 1:00 PM EST Office Visit [facility] [address] [place] [address] Porsha Marsh, UNION ORGANISER [address] [place] [address] 02/22/2026 11:00 AM EDT Office Visit [facility] [address] [place] [address] [address] [place] [phone] Alonso Bae MD [address] [place] [address] [address] [place] [address] 07/17/2026 2:00 PM EDT Office Visit [facility] - Internal Medicine [address] [place] [address] [phone] Ilya Gusman MD [address] [place] [phone] 07/19/2026 11:40 AM EDT Office Visit [facility] [address] [place] [address] Yesi Perez MD [address] [place] [address] documented as of this encounter Visit Diagnoses [...] documented as of this encounter Care Teams Special Education Administrator Relationship Specialty Start Date End Date Ilya Gusman MD [address] [place] [address] [phone] PCP - General 05/14/17 [facility] 09/01/25 documented as of this encounter
--- OUTSIDE RECORDS SUMMARY | 2025-09-23 21:01 | XMS_ITS | Encounter Summary ---
Author Organization [facility] Address [address] [place] [address] Phone Care Team Providers Care Composition Worker Name Role Phone Ilya Gusman MD Primary Care Provider [phone] Encounter Details Date Type Department Care Team (Late Contact Info) Description 11/28/2018 Orders Only [facility] Care [address] [place] [phone] Miracle Verma [place] Fever, unspecified fever cause (Primary Dx); Cough Social History Tobacco Use Types Packs/Day Years [...] [facility] - Internal Medicine [address] [place] [phone] Ilya Gusman MD [address] [place] [phone] Christophe Dailey MD [address] [place] [phone] 01/18/2026 1:00 PM EST Office Visit [facility] [address] [place] [address] Porsha Marsh, BODY TRIMMER UPHOLSTERER [address] [place] [address] 02/22/2026 11:00 AM EDT Office Visit [facility] [address] [place] [address] [address] [place] [phone] Alonso Bae MD [address] [place] [address] [address] [place] [address] 07/17/2026 2:00 PM EDT Office Visit [facility] - Internal Medicine [address] [place] [phone] Ilya Gusman MD [address] [place] [phone] 07/19/2026 11:40 AM EDT Office Visit [facility] [address] [place] [address] Yesi Perez MD [address] [place] [address] Scheduled Orders Name Type Priority Associated Diagnoses Orde r Schedule Rapid Influenza A and B Antigen Microbiology Routine Fever, unspecified fever cause Cough 1 Occurrences starting 11/28/2018 until 11/28/2019 documented as of this encounter Visit Diagnoses Diagnosis Fever, unspecified fever cause- Primary Cough documented in this encounter Additional Health Concerns [...] documented as of this encounter Care Teams Composition Worker Relationship Specialty Start Date End Date Ilya Gusman MD [address] [place] [phone] PCP - General 05/14/17 [facility] 09/01/25 documented as of this encounter
--- OUTSIDE RECORDS SUMMARY | 2025-09-23 21:01 | XMS_ITS | Encounter Summary ---
Author Organization [facility] Address [address] [place] [address] Phone Care Team Providers Care Telephony Engineer Name Role Phone lIya Gusman MD Primary Care Provider [phone] Encounter Details Date Type Department Care Team (Late Contact Info) Description 08/30/2019 Ancillary Orders [facility] - Internal Medicine [address] [place] [phone] Christophe Dailey MD [address] [place] [phone] Rib pain on left side Social History Tobacco Use Types Packs/Day Years [...] Visit [facility] Medicine [address] [place] [phone] Ilya Gusman MD [address] [place] [phone] Christophe Dailey MD [address] [place] [phone] 01/18/2026 1:00 PM EST Office Visit [facility] [address] [place] [address] Porsha Marsh, CONCRETE BUSTER OPERATOR 70 [place] [address] 02/22/2026 11:00 AM EDT Office Visit [facility] [address] [place] [address] [address] [place] [phone] Alonso Bae MD [address] [place] [address] [address] [place] [address] 07/17/2026 2:00 PM EDT Office Visit [facility] Medicine [address] [place] [phone] Ilya Gusman MD [address] [place] [phone] 07/19/2026 11:40 AM EDT Office Visit [facility] [address] [place] [address] Yesi Perez MD 70 [place] [address] documented as of this encounter Results * X-ray ribs left 3+ views with PA chest (08/30/2019 11:32 AM EDT) Anatomical Region Laterality Modality Body Left Computed Radiogr aphy 08/30/2019 11:0 8 AM EDT Impressions 08/30/2019 11:40 AM EDT Impression: No acute cardiopulmonary disease. Incidentally noted right fifth rib fracture with mild displacement. Narrative 08/30/2019 11:40 AM EDT Reason for exam: Cough. left rib pain s/p fall Technique: PA chest radiographs, with 4 additional views of the left ribs. Findings: Lines and Tubes: None Lungs and Pleura: The lungs are clear without lobar consolidation, pleural effusion, pneumothorax, or colt pulmonary edema. Cardiac Silhouette: Grossly within normal limits. There is a mildly displaced right fifth rib fracture. No evidence for left-sided acute displaced rib fractures. The patient is status post upper to mid thoracic spinal fusion. Procedure Note Josr Hernandez MD - 08/30/2019 Reason for exam: Cough. left rib pain s/p fall Technique: PA chest radiographs, with 4 additional views of the left ribs. Findings: Lines and Tubes: None Lungs and Pleura: The lungs are clear without lobar consolidation, pleuraleffusion, pneumothorax, or colt pulmonary edema. Cardiac Silhouette: Grossly within normal limits. There is a mildly displaced right fifth rib fracture. No evidence forleft-sided acute displaced rib fractures. The patient is status post upper to mid thoracicspinal fusion. Impression: No acute cardiopulmonary disease. Incidentally noted right fifth rib fracture with mild displacement. Christophe Dailey MD IMG XR PROCEDURES Final Resul t documented in this encounter Visit Diagnoses Diagnosis Rib pain on left side Rib pain on left side documented in this encounter Additional Health Concerns [...] documented as of this encounter Care Teams Telephony Engineer Relationship Specialty Start Date End Date Ilya Gusman MD [address] [place] [phone] PCP - General 05/14/17 [facility] 09/01/25 documented as of this encounter
--- OUTSIDE RECORDS SUMMARY | 2025-09-23 21:01 | XMS_ITS | Encounter Summary ---
Author Organization [facility] Address [address] [place] [address] Phone Care Team Providers Care Cad Drafter Name Role Phone Ilya Gusman MD Primary Care Provider [phone] Encounter Details Date Type Department Care Team (Late Contact Info) Description 11/25/2018 Orders Only [facility] - Internal Medicine [address] [place] [phone] Diana Blas [place] Social History Tobacco Use Types Packs/Day Years [...] Visit [facility] - Internal Medicine [address] [place] [phone] Ilya Gusman MD [address] [place] [phone] Christophe Dailey MD [address] [place] [phone] 01/18/2026 1:00 PM EST Office Visit [facility] [address] [place] [address] Porsha Marsh, PRODUCTION TEAM LEADER 70 [place] [address] 02/22/2026 11:00 AM EDT Office Visit [facility] [address] [place] [address] [address] [place] [phone] Alonso Bae MD [address] [place] [address] 2 [place] [address] 07/17/2026 2:00 PM EDT Office Visit [facility] - Internal Medicine [address] [place] [phone] Ilya Gusman MD [address] [place] [phone] 07/19/2026 11:40 AM EDT Office Visit [facility] [address] [place] [address] Yesi Perez MD [address] [place] [address] documented as of this encounter Visit Diagnoses [...] documented as of this encounter Care Teams Cad Drafter Relationship Specialty Start Date End Date Ilya Gusman MD [address] [place] [address] [phone] PCP - General 05/14/17 [facility] 09/01/25 documented as of this encounter
--- OUTSIDE RECORDS SUMMARY | 2025-09-23 21:01 | XMS_ITS | Encounter Summary ---
Author Organization [facility] Address [address] [place] [address] Phone Care Team Providers Care Arch Cushion Press Operator Name Role Phone Ilya Gusman MD Primary Care Provider [phone] Reason for Visit * Reason Onset Date Comments Med Refill 12/25/2018 Encounter Details Date Type Department Care Team (Late st Contact Info) Description 12/25/2018 Refill [facility] - Internal Medicine [address] [place] [phone] Christophe Dailey MD [address] [place] [phone] Med Refill Social History Tobacco Use [...] Telephone Encounter - Jany Daley LPN - 01/01/2019 9:29 AM EST Pt requesting rx. Pending for review. Jany Daley LPN Refill Team/[facility] IM-[facility] * Telephone Encounter - Christophe Dailey MD - 12/28/2018 9:51 AM EST Refill can return to pcp. Going to a 14 day supply will be at his discretion. * Telephone Encounter - Roberta Gauthier RN - 12/28/2018 9:43 AM EST Refill request for oxycodone 10mg. Pt requesting a 14 day supply. Please advise, thank you! Pharmacy: [facility] DATE OF LAST REFILL? 12/17/18 FREQUENCY OF REFILLS? 7 days DATE REFILL IS DUE? 12/24/18 IS THIS AN EARLY REFILL? No CONTROLLED SUBSTANCE AGREEMENT ON FILE? Yes Last UDS: 12/10/18 DATE OF LAST OFFICE VISIT: 12/10/18 DATE OF NEXT OFFICE VISIT: Future Appointments Date Time Provider Department Center 01/13/2019 2:40 PM Lulu Mata NP [facility] 03/18/2019 8:00 AM Luz Maria Victor PA-C KIN ENC KIN CARDROOM SUPERVISOR reviewed on 12/28/2018 by ROBERTA GAUTHIER Rylee and no red flags were noted Roberta Gauthier [facility] Refill Team [facility] documented in this encounter Plan of Treatment Upcoming Encounters Date Type Department Care Team (Late st Contact Info) Description 10/06/2025 10:45 AM EST Office Visit [facility] - Internal Medicine [address] [place] [phone] Ilya Gusman MD [address] [place] [phone] Christophe Dailey MD [address] [place] [phone] 01/18/2026 1:00 PM EST Office Visit [facility] 70 [facility] 1 [place] [address] Porsha Marsh, STRANDING MACHINE OPERATOR HELPER 70 [place] [address] 02/22/2026 11:00 AM EDT Office Visit [facility] [address] [place] [address] [address] [place] [phone] Alonso Bae MD [address] [place] [address] [address] [place] [address] 07/17/2026 2:00 PM EDT Office Visit [facility] - Internal Medicine [address] [place] [phone] Ilya Gusman MD [address] [place] [phone] 07/19/2026 11:40 AM EDT Office Visit [facility] [address] [place] [phone] Yesi Perez MD [address] [place] [phone] documented as of this encounter Visit Diagnoses [...] documented as of this encounter Care Teams Arch Cushion Press Operator Relationship Specialty Start Date End Date Ilya Gusman MD [address] [place] [phone] PCP - General 05/14/17 [facility] 09/01/25 documented as of this encounter
--- OUTSIDE RECORDS SUMMARY | 2025-09-23 21:01 | XMS_ITS | Encounter Summary ---
Author Organization [facility] Address [address] [place] [address] Phone Care Team Providers Care Station Helper Name Role Phone Ilya Gusman MD Primary Care Provider Encounter Details Date Type Department Care Team (Late st Contact Info) Description 05/09/2025 Scanned Document [facility] - Health Information Department [address] [place], [place] [phone] Scan, No Provider Available [address] [place] [address] <No scans attached> Social History Tobacco Use [...] [facility] - Internal Medicine [address] [place] [phone] Ilya Gusman MD [address] [place] [phone] Christophe Dailey MD [address] [place] [phone] 01/18/2026 1:00 PM EST Office Visit [facility] [address] [address] Porsha Marsh, HUMAN RESOURCE OFFICER 70 [place] [address] 02/22/2026 11:00 AM EDT Office Visit [facility] [address] [place] [address] [address] [place] [phone] Alonso Bae MD [address] [place] [address] [address] [place] [address] 07/17/2026 2:00 PM EDT Office Visit [facility] - Internal Medicine [address] [place] [phone] Ilya Gusman MD [address] [place] [phone] 07/19/2026 11:40 AM EDT Office Visit [facility] [address] [place] [address] Yesi Perez MD 70 [place] [address] documented as of this encounter Visit Diagnoses Not on filedocumented in this encounter Additional Health Concerns Assessment Noted Time PHQ-9 Depression Total Score: 6 04/28/20 24 1:53 PM EDT documented as of this encounter Care Teams Station Helper Relationship Specialty Start Date End Date Ilya Gusman MD [address] [place] [address] [phone] PCP - General 05/14/17 [facility] 09/01/25 documented as of this encounter
--- OUTSIDE RECORDS SUMMARY | 2025-09-23 21:01 | XMS_ITS | Encounter Summary ---
Author Organization [facility] y[facility] Address [address] [place] [address] Phone Care Team Providers Care Competitive Shopper Name Role Phone Ilya Gusman MD Primary Care Provider [phone] Encounter Details Date Type Department Care Team (Late st Contact Info) Description 05/02/2025 Scanned Document [facility] - Health Information Department [address] [place], [place] [phone] Scan, No Provider Available [address] [place] [address] [place] [address] <No scans attached> Social History Tobacco Use [...] Office Visit [facility] - Internal Medicine [address] [place] [phone] Ilya Gusman MD [address] [place] [phone] Christophe Dailey MD [address] [place] [phone] 01/18/2026 1:00 PM EST Office Visit [facility] [address] [address] Porsha Marsh, SEAMSTRESS FITTER 70 [place] [address] 02/22/2026 11:00 AM EDT Office Visit [facility] [address] [place] [address] [address] [place] [phone] Alonso Bae MD [address] [place] [address] [address] [place] [address] 07/17/2026 2:00 PM EDT Office Visit [facility] - Internal Medicine [address] [place] [phone] Ilya Gusman MD [address] [place] [phone] 07/19/2026 11:40 AM EDT Office Visit [facility] [address] [place] [phone] Yesi Perez MD 70 [place] [address] documented as of this encounter Visit Diagnoses Not on filedocumented in this encounter Additional Health Concerns Assessment Noted Time PHQ-9 Depression Total Score: 6 04/28/20 24 1:53 PM EDT documented as of this encounter Care Teams Competitive Shopper Relationship Specialty Start Date End Date Ilya Gusman MD [address] [place] [address] [phone] PCP - General 05/14/17 [facility] 09/01/25 documented as of this encounter
--- OUTSIDE RECORDS SUMMARY | 2025-09-23 21:01 | XMS_ITS | Encounter Summary ---
Author Organization [facility] Address [address] [place] [address] Phone Care Team Providers Care Resource Development Director Name Role Phone Ilya Gusman MD Primary Care Provider [phone] Reason for Visit * Reason Onset Date Comments Med Refill 07/06/2019 Encounter Details Date Type Department Care Team (Late st Contact Info) Description 07/06/2019 Refill [facility] - Internal Medicine [address] [place] [phone] Ilya Gusman MD [address] [place] [phone] Med Refill Social History Tobacco Use [...] Telephone Encounter - Kristina Schneider, PhT - 07/07/2019 12:01 PM EDT I called and spoke to Gloria . 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 She does not know why it is not in [facility]. Pt does not need Rx at this time. Also, Oxycodone prescription requests will now go to Dr Dailey for authorization. Thanks for clarifying for The Refill Team going forward. Kristina Schneider [facility] Refill Team [facility] * Telephone Encounter - Ilya Gusman MD - 07/07/2019 11:40 AM EDT Typically reills go to PCP (me) unless Specialist deems otherwise, as in Dr. Dailey's 05/12 OV note: - will increase the oxycodone to 15 mg tid prn - counseled on potential risks and side effects - sole skiver reviewed - he will update me as to his response Also, please determine whether [facility] dispensed 06/10 refill. * Telephone Encounter - Kristina Schneider, PhT - 07/07/2019 10:40 AM EDT Images from the original note were not included. Pending to PCP for authorization. Please make a notation if PCP or Dr Dailey should be prescribing this med. Chart review shows both MDs have prescribed. Pt is seeing both MDs in office. Med not pending. Please review [facility] below. Oxycodone 15mg #42 Pharmacy: [facility] DATE OF LAST REFILL? 06/10/19.. This prescription is not listed in [facility] as processed. FREQUENCY OF REFILLS? 14 days DATE REFILL IS DUE? 06/24/19 IS THIS AN EARLY REFILL? No CONTROLLED SUBSTANCE AGREEMENT ON FILE? Yes Last UDS: 03/01/19 DATE OF LAST OFFICE VISIT: With PCP on 01/15/[address] Dailey on 06/19/19 DATE OF NEXT OFFICE VISIT: Future Appointments Date Time Provider Department Center 07/09/2019 10:40 AM Ilya Gusman MD [facility] IM [facility] 07/16/2019 9:20 AM MD EDUARDO [facility] IM LNG Please review [facility] below. Med not pending Kristina Schneider hematology technologist Refill Team [facility] documented in this encounter Plan of Treatment Upcoming Encounters Date Type Department Care Team (Late st Contact Info) Description 10/06/2025 10:45 AM EST Office Visit [facility] - Internal Medicine [address] [place] [phone] Ilya Gusman MD [address] [place] [phone] Christophe Dailey MD [address] [place] [phone] 01/18/2026 1:00 PM EST Office Visit [facility] 70 [facility] 1 [place] [address] Porsha Marsh, GUEST RELATIONS REPRESENTATIVE 70 [place] [address] 02/22/2026 11:00 AM EDT Office Visit [facility] [address] [place] [phone] Alonso Bae MD [facility] [address] [place] [address] 07/17/2026 2:00 PM EDT Office Visit [facility] - Internal Medicine [address] [place] [phone] Ilya Gusman MD [address] [place] [phone] 07/19/2026 11:40 AM EDT Office Visit [facility] [address] [address] Yesi Perez MD 70 [place] [address] documented as of this encounter Visit Diagnoses Diagnosis Essential hypertension Unspecified essential hypertension documented in this [...] documented as of this encounter Care Teams Resource Development Director Relationship Specialty Start Date End Date Ilya Gusman MD [address] [place] [address] [phone] PCP - General 05/14/17 [facility] 09/01/25 documented as of this encounter
--- OUTSIDE RECORDS SUMMARY | 2025-09-23 21:02 | XMS_ITS | Encounter Summary ---
Author Organization [facility] ystem Address [address] [place] [address] Phone Care Team Providers Care Cash Management Associate Name Role Phone Ilya Gusman MD Primary Care Provider [phone] Encounter Details Date Type Department Care Team (Late Contact Info) Description 08/24/2024 Scanned Document [facility] - Health Information Department [address] [place] [phone] Scan, No Provider Available [address] [place] [address] [place] [address] <No scans attached> Social History Tobacco Use [...] Encounters Date Type Department Care Team ([facility] Contact Info) Description 10/06/2025 10:45 AM EST Office Visit [facility] - Internal Medicine [address] [place] [phone] Ilay Gusman MD [address] [place] [phone] Christophe Dailey MD [address] [place] [address] [phone] 01/18/2026 1:00 PM EST Office Visit [facility] [address] [place] [address] Porsha Marsh, ADMINISTRATIVE UNDERWRITER [address] [place] [address] 02/22/2026 11:00 AM EDT Office Visit [facility] [address] [place] [address] [address] [place] [phone] Alonso Bae MD [address] [place] [address] [address] [place] [address] 07/17/2026 2:00 PM EDT Office Visit [facility] - Internal Medicine [address] [place] [phone] Ilya Gusman MD [address] [place] [phone] 07/19/2026 11:40 AM EDT Office Visit [facility] [address] [place] [address] Yesi Perez MD [address] [place] [phone] documented as of this encounter Visit Diagnoses Not on filedocumented in this encounter Additional Health Concerns Infection Onset Date Last Indicated Resolved Time C difficile Rule-Out 11/01/2024 11/02/2024 024 9:43 AM EST Assessment Noted Time PHQ-9 Depression Total Score: 6 04/28/20 24 1:53 PM EDT documented as of this encounter Care Teams Cash Management Associate Relationship Specialty Start Date End Date Ilya Gusman MD [address] [place] [address] [phone] PCP - General 05/14/17 [facility] 09/01/25 documented as of this encounter
--- OUTSIDE RECORDS SUMMARY | 2025-09-23 21:02 | XMS_ITS | Encounter Summary ---
Author Organization [facility] Address [address] [place] [address] Phone Care Team Providers Care Continuing Education Instructor Name Role Phone Ilya Gusman MD Primary Care Provider [phone] Reason for Referral * Diagnostic Imaging - Closed Specialty Diagnoses / Procedures Referred By [place] blankenship Referred To Contact Radiology Diagnoses Left hip pain Procedures Fluoroscopy guided intra articular steroid injection left hip Tc Story MD [address] [place] [address] Phone: tel: fax: Referral ID Status Reason Start Date Expiration Date Visits Re quested Visits Authorized [id number] Closed 01/01/2019 04/04/2020 1 1 Encounter Details Date Type Department Care Team (Late Contact Info) Description 01/01/2019 Ancillary Orders [facility] [place] - [facility] 2 [place] [phone] Tc Story MD [address] [place] [phone] Left hip pain Social History Tobacco Use Types Packs/Day [...] Visit [facility] - Internal Medicine [address] [place] [phone] Ilya Gusman MD [address] [place] [phone] Christophe Dailey MD [address] [place] [phone] 01/18/2026 1:00 PM EST Office Visit [facility] [address] [address] Porsha Marsh, INSURANCE FOLLOW UP REP 70 [place] [address] 02/22/2026 11:00 AM EDT Office [facility] [address] [place] [phone] Alonso Bae MD [facility] [address] [place] [address] 07/17/2026 2:00 PM EDT Office Visit [facility] - Internal Medicine [address] [place] [phone] Ilya Gusman MD [address] [place] [phone] 07/19/2026 11:40 AM EDT Office Visit [facility] [address] [address] Yesi Perez MD 70 [place] [address] documented as of this encounter Results * Fluoroscopy guided intra articular steroid injection left hip (01/13/2019 9:04 AM EST) Anatomical Region Laterality Modality Body, Hip Computed Radiogr aphy 01/13/2019 7:57 AM EST Impressions 01/13/2019 1:05 PM EST Impression: Fluoroscopically guided left hip joint injection. Narrative 01/13/2019 1:05 PM EST FL GUIDED INTRA ARTICULAR STEROID INJ LT HIP History: LEFT HIP PAIN Fluoro Time: 18 seconds Technique: The risks, benefits, and alternatives of the procedure were explained to the patient. After a detailed discussion, informed written consent was obtained. A pre-procedure timeout per departmental protocol was performed. The patient was placed in a supine position on the fluoroscopy table. Limited preprocedure imaging of the left hip joint was performed. An appropriate position for the joint injection was chosen. The site was marked. The site was prepped and draped in the usual sterile fashion. 1% lidocaine was administered to the subcutaneous and deep tissues for local anesthetic effect. Under continuous fluoroscopic guidance, a 20 gauge spinal needle was introduced into the joint. Approximately 2 cc of iodinated contrast was injected, confirming intra-articular placement. 80 mg of Depo-Medrol solution was injected into the joint, followed by 4 cc of 0.5% ropivacaine. All needles were removed. A dry sterile dressing was applied. The procedure was tolerated well and there were no immediate post-procedural complications. Procedure Note Gustabo Sofia MD - 01/13/2019 FL GUIDED INTRA ARTICULAR STEROID INJ LT HIP History: LEFT HIP PAIN Fluoro Time: 18 seconds Technique: The risks, benefits, and alternatives of the procedure were explained tothe patient. After a detailed discussion, informed written consent was obtained. Apre- procedure timeout per departmental protocol was performed. The patient was placed in a supine position on the fluoroscopy table.Limited preprocedure imaging of the left hip joint was performed. An appropriate position forthe joint injection was chosen. The site was marked. The site was prepped anddraped in the usual sterile fashion. 1% lidocaine was administered to the subcutaneous anddeep tissues for local anesthetic effect. Under continuous fluoroscopic guidance, a 20 gauge spinal needle wasintroduced into the joint. Approximately 2 cc of iodinated contrast was injected, confirmingintra-articular placement. 80 mg of Depo-Medrol solution was injected into the joint,followed by 4 cc of 0.5% ropivacaine. All needles were removed. A dry sterile dressing wasapplied. The procedure was tolerated well and there were no immediatepost-procedural complications. Impression: Fluoroscopically guided left hip joint injection. Tc Story MD IMG FLUOROSCOPY PROCEDURES Final Result documented in this encounter Visit Diagnoses Diagnosis Left hip pain Pain in joint, pelvic region and thigh Left hip pain Pain in joint, pelvic region and thigh documented in this encounter Additional Health Concerns [...] documented as of this encounter Care Teams Continuing Education Instructor Relationship Specialty Start Date End Date Ilya Gusman MD [address] [place] [phone] PCP - General 05/14/17 [facility] 09/01/25 documented as of this encounter
--- OUTSIDE RECORDS SUMMARY | 2025-09-23 21:02 | XMS_ITS | Encounter Summary ---
Author Organization [facility] Address [address] [place] [address] Phone Care Team Providers Care Machine Stone Polisher Apprentice Name Role Phone Ilya Gusman MD Primary Care Provider [phone] Reason for Visit * Reason Onset Date Comments Med Refill 01/13/2019 Encounter Details Date Type Department Care Team (Late st Contact Info) Description 01/13/[address] [facility] - Internal Medicine [address] [place] [address] [phone] Ilya Gusman MD [address] [place] [phone] Med Refill Social History Tobacco Use [...] Telephone Encounter - Suha Rendon PhT - 01/14/2019 9:47 AM EST Oxycodone 10mg ?? Pharmacy: [facility] DATE OF LAST REFILL? 01/01/19 FREQUENCY OF REFILLS? 14 days DATE REFILL IS DUE? 01/15/19 IS THIS AN EARLY REFILL? No CONTROLLED SUBSTANCE AGREEMENT ON FILE? Yes ?? Last UDS: 12/10/18 ?? DATE OF LAST OFFICE VISIT: 12/10/18 Future Appointments Date Time Provider Department Center 01/15/2019 8:40 AM Ilya Gusman MD [facility] IM [facility] 02/22/2019 7:45 AM Maria De Jesus Leigh MD [facility] 03/18/2019 8:00 AM Luz Maria Victor PA-C KIN ENC KIN VACUUM FORM OPERATOR reviewed on 01/14/2019 by Ian HANCOCK and reviewed & no red flags were noted Ian HANCOCK documented in this encounter Plan of Treatment Upcoming Encounters Date Type Department Care Team (Late st Contact Info) Description 10/06/2025 10:45 AM EST Office Visit [facility] - Internal Medicine [address] [place] [phone] Ilya Gusman MD [address] [place] [address] [phone] Christophe Dailey MD [address] [place] [address] [phone] 01/18/2026 1:00 PM EST Office Visit [facility] [address] [address] Porsha Marsh CNP 70 [place] [address] 02/22/2026 11:00 AM EDT Office Visit [facility] [address] [place] [address] [address] [place] [phone] Alonso Bae MD [address] [facility] [address] [place] [address] 07/17/2026 2:00 PM EDT Office Visit [facility] - Internal Medicine [address] [place] [phone] Ilya Gusman MD [address] [place] [phone] 07/19/2026 11:40 AM EDT Office Visit [facility] 70 [facility] 1 [place] [address] Yesi Perez MD 70 [place] [address] documented as of this encounter Visit Diagnoses [...] as of this encounter Care Teams Machine Stone Polisher Apprentice Relationship Specialty Start Date End Date Ilya Gusman MD [address] [place] [phone] PCP - General 05/14/17 [facility] 09/01/25 documented as of this encounter
--- OUTSIDE RECORDS SUMMARY | 2025-09-23 21:02 | XMS_ITS | Encounter Summary ---
Author Organization [facility] Address [address] [place] [address] Phone Care Team Providers Care Centrifuge Separator Tender Name Role Phone Ilya Gusman MD Primary Care Provider [phone] Reason for Referral * MRI/CAT/PET Scan - Closed Specialty Diagnoses / Procedures Referred By Contac t Referred To Contact Radiology Diagnoses Prostate cancer (CMS/HCC) Procedures CT chest with contrast CT chest with and without contrast Lee Nava MD [address] [place] [address] Phone: tel: fax: Referral ID Status Reason Start Date Expiration Date Visits Re quested Visits Authorized [id number] Closed 04/26/2022 10/23/2022 1 1 * MRI/CAT/PET Scan - Closed Specialty Diagnoses / Procedures Referred By Contac t Referred To Contact Radiology Diagnoses Prostate cancer ([facility]/HCC) Procedures CT abdomen pelvis with contrast Lee Nava MD [address] [place] [address] Phone: tel: fax: Referral ID Status Reason Start Date Expiration Date Visits Re quested Visits Authorized [id number] Closed 04/26/2022 10/23/2022 1 1 * MRI/CAT/PET Scan - Closed Specialty Diagnoses / Procedures Referred By Contdavid t Referred To Contact Radiology Diagnoses Prostate cancer ([facility]/HCC) Procedures Nuclear Medicine bone scan whole body Lee Nava MD [address] [place] [address] Phone: tel: fax: Referral ID Status Reason Start Date Expiration Date Visits Re quested Visits Authorized [id number] Closed 04/26/2022 07/29/2023 2 2 Encounter Details Date Type Department Care Team (Late Contact Info) Description 04/26/2022 Ancillary Orders [facility] - Central Scheduling [address] [place] [address] Lee Nava MD [address] [place] [phone] Prostate cancer ([facility]/HCC) Social History Tobacco Use Types Packs/Day Years [...] suspected to have Coronavirus/COVID-19? No / Unsure 04/12/2022 8:43 AM EDT documented as of this encounter Plan of Treatment Upcoming Encounters Date Type Department Care Team (Late Contact Info) Description 10/06/2025 10:45 AM EST Office Visit [facility] - Internal Medicine [address] [place] [phone] Ilya Gusman MD [address] [place] [phone] Christophe Dailey MD [address] [place] [phone] 01/18/2026 1:00 PM EST Office Visit [facility] [address] [place] [address] Porsha Marsh, MANAGER RFID [address] [place] [address] 02/22/2026 11:00 AM EDT Office Visit [facility] [address] [place] [address] [address] [place] [phone] Alonso Bae MD [address] [place] [address] [address] [place] [address] 07/17/2026 2:00 PM EDT Office Visit [facility] - Internal Medicine [address] [place] [phone] Ilya Gusman MD [address] [place] [phone] 07/19/2026 11:40 AM EDT Office Visit [facility] [address] [place] [phone] Yesi Perez MD [address] [place] [phone] documented as of this encounter Results * Nuclear Medicine bone scan whole body (05/14/2022 3:50 PM EDT) Anatomical Region Laterality Modality Nuclear Medicine 05/14/2022 11:5 6 AM EDT Impressions 05/15/2022 7:57 AM EDT Impression: 1. There is multifocal probable posttraumatic and arthritic-degenerative change. There is more focal uptake within the right femoral head which may be due to subchondral fracture is identified on the recent CT study. No site of abnormal uptake is identified to indicate bony metastatic disease. Narrative 05/15/2022 7:57 AM EDT History: Prostate cancer (CMS/HCC) restaging. Technique: Following the intravenous administration of 24.5 mCi technetium-99 m MDP anterior and posterior whole body images were obtained. SPECT imaging was performed of the chest. Comparison: CT studies of the chest, abdomen, and pelvis of 05/14/2022 Findings: There is a long segment of abnormal uptake within the left posterior sixth rib and the right posterior sixth rib which is likely due to remote fracture deformity. A small sclerotic focus in the left lateral ninth rib identified on the CT study is below the resolution of scintigraphy and may represent a bone island. There is heterogeneous uptake in the thoracic and lumbar spine which is likely due to posttraumatic and degenerative changes. There is increased uptake in the shoulders, elbows, wrists, hips, knees, ankles, and feet bilaterally compatible with arthritic-degenerative change. There is more focal uptake within the right femoral head which may be due to subchondral fracture is identified on the recent CT study. No abnormal uptake is identified to indicate bony metastatic disease. Both kidneys are visualized. Procedure Note Ilya Chen MD - 05/15/2022 History: Prostate cancer (CMS/HCC) restaging. Technique: Following the intravenous administration of 24.5 mCitechnetium-99 m MDP anterior and posterior whole body images were obtained. SPECT imaging wasperformed of the chest. Comparison: CT studies of the chest, abdomen, and pelvis of 05/14/2022 Findings: There is a long segment of abnormal uptake within the leftposterior sixth rib and the right posterior sixth rib which is likely due to remote fracturedeformity. A small sclerotic focus in the left lateral ninth rib identified on the CTstudy is below the resolution of scintigraphy and may represent a bone island. There is heterogeneous uptake in the thoracic and lumbar spine which islikely due to posttraumatic and degenerative changes. There is increased uptake in the shoulders, elbows, wrists, hips, knees,ankles, and feet bilaterally compatible with arthritic-degenerative change. There is morefocal uptake within the right femoral head which may be due to subchondral fracture isidentified on the recent CT study. No abnormal uptake is identified to indicate bony metastatic disease. Both kidneys are visualized. Impression: 1. There is multifocal probable posttraumatic and arthritic-degenerativechange. There is more focal uptake within the right femoral head which may be due tosubchondral fracture is identified on the recent CT study. No site of abnormal uptake isidentified to indicate bony metastatic disease. Lee Nava MD IMG NM PROCEDURES Final Result * CT chest with contrast (05/14/2022 12:36 PM EDT) Anatomical Region Laterality Modality Body Computed Tomogra phy 05/14/2022 11:5 6 AM EDT Impressions 05/14/2022 2:00 PM EDT IMPRESSION: 1. Stable chest. No specific evidence for metastatic disease in the chest. 2. A 5 mm pulmonary nodule superior segment right lower lobe is stable when compared to prior studies dating back to 02/12/2010 and given long-term stability is consistent with a benign finding. Narrative 05/14/2022 2:00 PM EDT TECHNIQUE: CT of the chest was performed according to departmental protocol. Direct axial images were obtained and sagittal and coronal reformatted images were obtained and reviewed. Intravenous contrast was not administered. Iterative reconstruction technique was utilized for radiation dose reduction CONTRAST: iohexol (OMNIPAQUE) 350 MG/ML 90mL HISTORY: Prostate cancer. COMPARISON: 08/21/2021, 08/04/2019 and 02/12/2010. FINDINGS: LUNGS/PLEURA: A 5 mm pulmonary nodule is noted in the superior segment of the right lower lobe (S14, 115). This finding is stable when compared to prior studies dating back to 02/12/2010. Given long-term stability this suggests a benign finding. No new or enlarging pulmonary nodules are identified. HEART/MEDIASTINUM: No mediastinal or hilar adenopathy is noted. There is no mediastinal fluid. UPPER ABDOMEN: An abdominal CT was performed at the same time and is being dictated separately. OSSEOUS STRUCTURES: There is a small sclerotic focus noted laterally in the left ninth rib. This finding is stable when compared to prior studies and suggests a small bone island. There is deformity involving the right anterior lateral fourth, fifth, sixth, and seventh ribs compatible with old healed rib fractures. There has been prior fusion of the thoracic spine. Multilevel degenerative change is present. On sagittal reformatted images, there is osseous deformity involving the sternum compatible with an old healed sternal fracture. No suspicious osseous lesions are noted. Procedure Note Lilliam Mackay MD - 05/14/2022 TECHNIQUE: CT of the chest was performed according to departmentalprotocol. Direct axial images were obtained and sagittal and coronal reformatted images wereobtained and reviewed. Intravenous contrast was not administered. Iterativereconstruction technique was utilized for radiation dose reduction CONTRAST: iohexol (OMNIPAQUE) 350 MG/ML 90mL HISTORY: Prostate cancer. COMPARISON: 08/21/2021, 08/04/2019 and 02/12/2010. FINDINGS: LUNGS/PLEURA: A 5 mm pulmonary nodule is noted in the superior segment ofthe right lower lobe (S14, 115). This finding is stable when compared to prior studiesdating back to 02/12/2010. Given long-term stability this suggests a benign finding. Nonew or enlarging pulmonary nodules are identified. HEART/MEDIASTINUM: No mediastinal or hilar adenopathy is noted. There isno mediastinal fluid. UPPER ABDOMEN: An abdominal CT was performed at the same time and isbeing dictated separately. OSSEOUS STRUCTURES: There is a small sclerotic focus noted laterally inthe left ninth rib. This finding is stable when compared to prior studies and suggests asmall bone island. There is deformity involving the right anterior lateral fourth,fifth, sixth, and seventh ribs compatible with old healed rib fractures. There has beenprior fusion of the thoracic spine. Multilevel degenerative change is present. On sagittalreformatted images, there is osseous deformity involving the sternum compatible with an oldhealed sternal fracture. No suspicious osseous lesions are noted. IMPRESSION: 1. Stable chest. No specific evidence for metastatic disease in thechest. 2. A 5 mm pulmonary nodule superior segment right lower lobe is stablewhen compared to prior studies dating back to 02/12/2010 and given long-term stability isconsistent with a benign finding. Lee Nava MD IMG CT PROCEDURES Final Result * CT abdomen pelvis with contrast (05/14/2022 12:36 PM EDT) Anatomical Region Laterality Modality Body Computed Tomogra phy 05/14/2022 11:5 6 AM EDT Impressions 05/14/2022 2:00 PM EDT IMPRESSION: 1. Stable exam. No specific evidence to suggest metastatic disease in the abdomen or pelvis. 2. Chronic appearing subchondral fracture identified anteriorly in the right femoral head. Degenerative changes in the hips bilaterally. Postoperative changes in the lumbar spine, stable. 3. Diverticulosis involving the sigmoid colon without evidence for diverticulitis. Narrative 05/14/2022 2:00 PM EDT HISTORY: Prostate cancer. TECHNIQUE: CT scan of the abdomen and pelvis was performed according to standard departmental protocol. Direct axial images were acquired and both sagittal and coronal reformatted images were obtained and reviewed. Intravenous contrast was administered. Oral contrast material was administered. Iterative reconstruction technique was utilized for radiation dose reduction. IV CONTRAST: Iohexol (OMNIPAQUE) 350 MG/ML 90 mL. COMPARISON: Abdominal CT 06/21/2021. Comparison is also made to abdomen and pelvic CT 06/26/2017. FINDINGS: LUNG BASES: A chest CT was performed at the same time and is being dictated separately. HEPATOBILIARY: The liver enhances homogeneously without focal lesion. The gallbladder is unremarkable. No biliary ductal dilatation is noted. PANCREAS: The pancreas is normal. SPLEEN: The spleen is normal. KIDNEYS: Kidneys are normal in appearance. ADRENALS: The adrenal glands are normal. GI TRACT: Stomach is unremarkable. Small bowel loops are normal in caliber. The appendix is normal in appearance. The colon is normal in caliber. Diverticula are noted in the sigmoid colon without evidence for diverticulitis. RETROPERITONEUM: The aorta is normal in caliber. There is no retroperitoneal adenopathy. PELVIS: Prostate gland is unremarkable. Bladder is normal in contour and appearance. No pelvic adenopathy is noted. BONES: There has been prior posterior instrumented fusion at the L2/3 level. Findings are stable. Degenerative changes are noted throughout the lumbar spine. Degenerative changes are present in the hips bilaterally. There is a chronic appearing subchondral fracture identified anteriorly involving the right femoral head with mild subchondral collapse. A small rounded sclerotic focus is noted in the left lateral ninth rib, a stable finding when compared to prior study from 06/26/2017 and suggests a bone island. Procedure Note Lilliam Mackay MD - 05/14/2022 HISTORY: Prostate cancer. TECHNIQUE: CT scan of the abdomen and pelvis was performed according [facility] departmental protocol. Direct axial images were acquired and both sagittaland coronal reformatted images were obtained and reviewed. Intravenous contrast wasadministered. Oral contrast material was administered. Iterative reconstruction technique wasutilized for radiation dose reduction. IV CONTRAST: Iohexol (OMNIPAQUE) 350 MG/ML 90 mL. COMPARISON: Abdominal CT 06/21/2021. Comparison is also made to abdomen andpelvic CT 06/26/2017. FINDINGS: LUNG BASES: A chest CT was performed at the same time and is beingdictated separately. HEPATOBILIARY: The liver enhances homogeneously without focal lesion.The gallbladder is unremarkable. No biliary ductal dilatation is noted. PANCREAS: The pancreas is normal. SPLEEN: The spleen is normal. KIDNEYS: Kidneys are normal in appearance. ADRENALS: The adrenal glands are normal. GI TRACT: Stomach is unremarkable. Small bowel loops are normal incaliber. The appendix is normal in appearance. The colon is normal in caliber.Diverticula are noted in the sigmoid colon without evidence for diverticulitis. RETROPERITONEUM: The aorta is normal in caliber. There is noretroperitoneal adenopathy. PELVIS: Prostate gland is unremarkable. Bladder is normal in contour andappearance. No pelvic adenopathy is noted. BONES: There has been prior posterior instrumented fusion at the L2/3level. Findings are stable. Degenerative changes are noted throughout the lumbar spine.Degenerative changes are present in the hips bilaterally. There is a chronic appearingsubchondral fracture identified anteriorly involving the right femoral head with mildsubchondral collapse. A small rounded sclerotic focus is noted in the left lateral ninth rib, astable finding when compared to prior study from 06/26/2017 and suggests a bone island. IMPRESSION: 1. Stable exam. No specific evidence to suggest metastatic disease in theabdomen or pelvis. 2. Chronic appearing subchondral fracture identified anteriorly in theright femoral head. Degenerative changes in the hips bilaterally. Postoperative changes in thelumbar spine, stable. 3. Diverticulosis involving the sigmoid colon without evidence fordiverticulitis. Lee Nava MD IMG CT PROCEDURES Final Result documented in this encounter Visit Diagnoses Diagnosis Prostate cancer (CMS/HCC) Malignant neoplasm of prostate Prostate cancer (CMS/HCC) Malignant neoplasm of prostate Prostate cancer (CMS/HCC) Malignant neoplasm of prostate documented in this encounter Additional Health Concerns [...] documented as of this encounter Care Teams Centrifuge Separator Tender Relationship Specialty Start Date End Date Ilya Gusman MD [address] [place] [address] [phone] PCP - General 05/14/17 [facility] 09/01/25 documented as of this encounter
--- OUTSIDE RECORDS SUMMARY | 2025-09-23 21:02 | XMS_ITS | Encounter Summary ---
Author Organization [facility] Address [address] [place] [address] Phone Care Team Providers Care Optical Engineering Technician Name Role Phone Ilya Gusman MD Primary Care Provider [phone] Encounter Details Date Type Department Care Team (Late Contact Info) Description 11/13/2018 Scanned Document [facility] - Health Information Department [address] [place] [phone] Scan, No Provider Available [address] [place] [address] [place] [address] <No scans attached> Social History Tobacco Use [...] Upcoming Encounters Date Type Department Care Team ([facility] Contact Info) Description 10/06/2025 10:45 AM EST Office Visit [facility] - Internal Medicine [address] [place] [phone] Ilya Gusman MD [address] [place] [phone] Christophe Dailey MD [address] [place] [phone] 01/18/2026 1:00 PM EST Office Visit [facility] [address] [place] [address] Porsha Marsh, SHRIMPING BOAT CAPTAIN [address] [place] [address] 02/22/2026 11:00 AM EDT Office Visit [facility] [address] [place] [address] [address] [place] [phone] Alonso Bae MD [address] [place] [address] [address] [place] [address] 07/17/2026 2:00 PM EDT Office Visit [facility] - Internal Medicine [address] [place] [phone] Ilya Gusman MD [address] [place] [phone] 07/19/2026 11:40 AM EDT Office Visit [facility] [address] [place] [address] Yesi Perez MD [address] [place] [address] documented as of this encounter Visit Diagnoses [...] as of this encounter Care Teams Optical Engineering Technician Relationship Specialty Start Date End Date Ilya Gusman MD [address] [place] [phone] PCP - General 05/14/17 [facility] 09/01/25 documented as of this encounter
--- OUTSIDE RECORDS SUMMARY | 2025-09-23 21:02 | XMS_ITS | Encounter Summary ---
Author Organization [facility] Address [address] [place] [address] Phone Care Team Providers Care Brick Wheeler Name Role Phone Ilya Gusman MD Primary Care Provider [phone] Encounter Details Date Type Department Care Team (Late Contact Info) Description 11/21/2024 Scanned Document [facility] - Health Information Department [address] [place] [address] Scan, No Provider Available [address] [place] [address] [place] [address] <No scans attached> Social History Tobacco Use [...] Upcoming Encounters Date Type Department Care Team ([facility] Contact Info) Description 10/06/2025 10:45 AM EST Office Visit [facility] - Internal Medicine [address] [place] [phone] Ilya Gusman MD [address] [place] [phone] Christophe Dailey MD [address] [place] [address] [phone] 01/18/2026 1:00 PM EST Office Visit [facility] [address] [place] [address] Porsha Marsh, STUDY ABROAD ADVISOR [address] [place] [address] 02/22/2026 11:00 AM EDT Office Visit [facility] [address] [place] [address] [address] [place] [phone] Alonso Bae MD [address] [place] [address] [address] [place] [address] 07/17/2026 2:00 PM EDT Office Visit [facility] - Internal Medicine [address] [place] [phone] Ilya Gusamn MD [address] [place] [phone] 07/19/2026 11:40 AM EDT Office Visit [facility] [address] [place] [address] Yesi Perez MD [address] [place] [address] documented as of this encounter Visit Diagnoses Not on filedocumented in this encounter Additional Health Concerns Assessment Noted Time PHQ-9 Depression Total Score: 6 04/28/20 24 1:53 PM EDT documented as of this encounter Care Teams Brick Wheeler Relationship Specialty Start Date End Date Ilya Gusman MD [address] [place] [phone] PCP - General 05/14/17 [facility] 09/01/25 documented as of this encounter
--- OUTSIDE RECORDS SUMMARY | 2025-09-23 21:02 | XMS_ITS | Encounter Summary ---
Author Organization [facility] Address [address] [place] [address] Phone Care Team Providers Care Agriculture Laboratory Technician Name Role Phone Ilya Gusman MD Primary Care Provider [phone] Encounter Details Date Type Department Care Team (Late Contact Info) Description 08/16/2024 Procedure [facility]oscopy [address] [place] [address] Social History Tobacco Use Types [...] Care Team ([facility] Contact Info) Description 10/06/2025 10:45 AM EST Office Visit [facility] - Internal Medicine [address] [place] [phone] Ilya Gusman MD [address] [place] [phone] Christophe Dailey MD [address] [place] [phone] 01/18/2026 1:00 PM EST Office Visit [facility] [address] [place] [address] Porsha Marsh, MACHINE MOLDER [address] [place] [address] 02/22/2026 11:00 AM EDT Office Visit [facility] [address] [place] [address] [address] [place] [phone] Alonso Bae MD [address] [place] [address] [address] [place] [address] 07/17/2026 2:00 PM EDT Office Visit [facility] - Internal Medicine [address] [place] [phone] Ilya Gusman MD [address] [place] [phone] 07/19/2026 11:40 AM EDT Office Visit [facility] [address] [place] [address] Yesi Perez MD [address] [place] [address] documented as of this encounter Visit Diagnoses Not on filedocumented in this encounter Additional Health Concerns Infection Onset Date Last Indicated Resolved Time C difficile Rule-Out 11/01/2024 11/02/2024 024 9:43 AM EST Assessment Noted Time PHQ-9 Depression Total Score: 6 04/28/20 24 1:53 PM EDT documented as of this encounter Care Teams Agriculture Laboratory Technician Relationship Specialty Start Date End Date Ilya Gusman MD [address] [place] [phone] PCP - General 05/14/17 [facility] 09/01/25 documented as of this encounter
--- OUTSIDE RECORDS SUMMARY | 2025-09-23 21:02 | XMS_ITS | Encounter Summary ---
Author Organization [facility] Address [address] [place] [address] Phone Care Team Providers Care Motor Coach Tour Operator Name Role Phone Ilya Gusman MD Primary Care Provider [phone] Encounter Details Date Type Department Care Team ([facility] Contact Info) Description 03/19/2022 Procedure Pass [facility] Surgery [address] [place] [address] Social History Tobacco Use Types Packs/Day Years [...] Recorded In the last 10 days, have chuck u been in contact with someone who was confirmed or suspected to have Coronavirus/COVID-19? No / Unsure 03/19/2022 7:43 AM EDT documented as of this encounter Plan of Treatment Upcoming Encounters Date Type Department Care Team (Late st Contact Info) Description 10/06/2025 10:45 AM EST Office Visit [facility] - Internal Medicine [address] [place] [phone] Ilya Gusman MD [address] [place] [address] [phone] Christophe Dailey MD [address] [place] [phone] 01/18/2026 1:00 PM EST Office Visit [facility] [address] [address] Porsha Marsh CNP 70 [place] [address] 02/22/2026 11:00 AM EDT Office Visit [facility] [address] [place] [address] [address] [place] [phone] Alonso Bae MD [address] [place] [address] [address] [place] [address] 07/17/2026 2:00 PM EDT Office Visit [facility] - Internal Medicine [address] [place] [phone] Ilya Gusman MD [address] [place] [phone] 07/19/2026 11:40 AM EDT Office Visit [facility] [address] [address] Yesi Perez MD 70 [place] [address] documented as of this encounter [...] documented as of this encounter Care Teams Motor Coach Tour Operator Relationship Specialty Start Date End Date Ilya Gusman MD [address] [place] [phone] PCP - General 05/14/17 [facility] 09/01/25 documented as of this encounter
--- OUTSIDE RECORDS SUMMARY | 2025-09-23 21:02 | XMS_ITS | Encounter Summary ---
Author Organization [facility] Address [address] [place] [address] Phone Care Team Providers Care Petroleum Engineering Professor Name Role Phone Ilya Gusman MD Primary Care Provider [phone] Reason for Visit * Reason Onset Date Comments Med Refill 12/31/2018 Encounter Details Date Type Department Care Team ([facility] Contact Info) Description 12/31/2018 Refill [facility] - Internal Medicine [address] [place] [phone] Christophe Dailey MD [address] [place] [phone] Med Refill Social History Tobacco Use [...] [facility] - Internal Medicine [address] [place] [phone] Ilya Gusman MD [address] [place] [phone] Christophe Dailey MD [address] [place] [phone] 01/18/2026 1:00 PM EST Office Visit [facility] [address] [place] [address] Porsha Marsh, [address] [address] 02/22/2026 11:00 AM EDT Office Visit [facility] [address] [place] [address] [address] [place] [address] Alonso Bae MD [address] [place] [address] [address] [place] [address] 07/17/2026 2:00 PM EDT Office Visit [facility] - Internal Medicine [address] [place] [phone] Ilya Gusman MD [address] [place] [phone] 07/19/2026 11:40 AM EDT Office Visit [facility] [address] [place] [address] Yesi Perez MD [address] [place] [address] documented as of this encounter Visit Diagnoses [...] documented as of this encounter Care Teams Petroleum Engineering Professor Relationship Specialty Start Date End Date Ilya Gusman MD [address] [place] [address] [phone] PCP - General 05/14/17 [facility] 09/01/25 documented as of this encounter
--- OUTSIDE RECORDS SUMMARY | 2025-09-23 21:02 | XMS_ITS | Encounter Summary ---
Author Organization [facility] ystem Address [address] [place] [address] Phone Care Team Providers Care Spring Fitter Helper Name Role Phone Ilya Gusman MD Primary Care Provider [phone] Encounter Details Date Type Department Care Team (Late Contact Info) Description 09/25/2024 Scanned Document [facility] - Health Information Department [address] [place] [address] Scan, No Provider Available [address] [place] [address] [place] [address] <No scans attached> Social History Tobacco Use [...] Type Department Care Team ([facility] Contact Info) Description 10/06/2025 10:45 AM EST Office Visit [facility] - Internal Medicine [address] [place] [phone] Ilya Gusman MD [address] [place] [phone] Christophe Dailey MD [address] [place] [address] [phone] 01/18/2026 1:00 PM EST Office Visit [facility] [address] [place] [address] Porsha Marsh, RAIL OPERATIONS CONTROLLER [address] [place] [address] 02/22/2026 11:00 AM EDT Office Visit [facility] [address] [place] [address] [address] [place] [phone] Alonso Bae MD [address] [place] [address] [address] [place] [address] 07/17/2026 2:00 PM EDT Office Visit [facility] - Internal Medicine [address] [place] [phone] Ilya Gusman MD [address] [place] [phone] 07/19/2026 11:40 AM EDT Office Visit [facility] [address] [place] [address] Yesi Perez MD [address] [place] [address] documented as of this encounter Visit Diagnoses Not on filedocumented in this encounter Additional Health Concerns Infection Onset Date Last Indicated Resolved Time C difficile Rule-Out 11/01/2024 11/02/2024 024 9:43 AM EST Assessment Noted Time PHQ-9 Depression Total Score: 6 04/28/20 24 1:53 PM EDT documented as of this encounter Care Teams Spring Fitter Helper Relationship Specialty Start Date End Date Ilya Gusman MD [address] [place] [address] [phone] PCP - General 05/14/17 [facility] 09/01/25 documented as of this encounter
--- OUTSIDE RECORDS SUMMARY | 2025-09-23 21:02 | XMS_ITS | Encounter Summary ---
Author Organization [facility] Address [address] [place] [address] Phone Care Team Providers Care Barber Tool Sharpener Name Role Phone Ilya Gusman MD Primary Care Provider [phone] Reason for Visit * Reason Onset Date Comments Med Refill 05/17/2022 Encounter Details Date Type Department Care Team (Late st Contact Info) Description 05/17/2022 Refill [facility] - Internal Medicine [address] [place] [address] [phone] Christophe Dailey MD [address] [place] [phone] Med Refill Social History Tobacco Use [...] suspected to have Coronavirus/COVID-19? No / Unsure 05/20/2022 11:18 AM EDT documented as of this encounter Plan of Treatment Upcoming Encounters Date Type Department Care Team (Late st Contact Info) Description 10/06/2025 10:45 AM EST Office Visit [facility] - Internal Medicine [address] [place] [phone] Ilya Gusman MD [address] [place] [phone] Christophe Dailey MD [address] [place] [phone] 01/18/2026 1:00 PM EST Office Visit [facility] 70 [facility] 1 [place] [address] Porsha Marsh, CONFIGURATION MANAGEMENT ADMINISTRATOR [address] [place] [address] 02/22/2026 11:00 AM EDT Office Visit [facility] [address] [place] [address] [address] [place] [phone] Alonso Bae MD [address] [place] [address] [address] [place] [address] 07/17/2026 2:00 PM EDT Office Visit [facility] - Internal Medicine [address] [place] [phone] Ilya Gusman MD [address] [place] [phone] 07/19/2026 11:40 AM EDT Office Visit [facility] [address] [address] Yesi Perez MD 70 [place] [address] documented as of this encounter Visit Diagnoses [...] documented as of this encounter Care Teams Barber Tool Sharpener Relationship Specialty Start Date End Date Ilya Gusman MD [address] [place] [phone] PCP - General 05/14/17 [facility] 09/01/25 documented as of this encounter
--- OUTSIDE RECORDS SUMMARY | 2025-09-23 21:02 | XMS_ITS | Encounter Summary ---
Author Organization [facility] Address [address] [place] [address] Phone Care Team Providers Care Casting Cleaner Name Role Phone Ilya Gusman MD Primary Care Provider [phone] Encounter Details Date Type Department Care Team (Late st Contact Info) Description 05/16/2022 Scanned Document [facility] - Health Information Department [address] [place], [place] [phone] Scan, No Provider Available [address] [facility] [address] <No scans attached> Social History Tobacco Use [...] suspected to have Coronavirus/COVID-19? No / Unsure 05/14/2022 11:56 AM EDT documented as of this encounter Plan of Treatment Upcoming Encounters Date Type Department Care Team (Late st Contact Info) Description 10/06/2025 10:45 AM EST Office Visit [facility] - Internal Medicine [address] [place] [phone] Ilya Gusman MD [address] [place] [phone] Christophe Dailey MD [address] [place] [phone] 01/18/2026 1:00 PM EST Office Visit [facility] [address] [place] [address] Porsha Marsh, PRESS CLIPPINGS CUTTER AND PASTER [address] [place] [address] 02/22/2026 11:00 AM EDT Office Visit [facility] [address] [place] [address] [address] [place] [phone] Alonso Bae MD [address] [place] [address] [address] [place] [address] 07/17/2026 2:00 PM EDT Office Visit [facility] - Internal Medicine [address] [place] [phone] Ilya Gusman MD [address] [place] [phone] 07/19/2026 11:40 AM EDT Office Visit [facility] [address] [place] [address] Yesi Perez MD [address] [place] [address] documented as of this encounter Visit Diagnoses [...] documented as of this encounter Care Teams Casting Cleaner Relationship Specialty Start Date End Date Ilya Gusman MD [address] [place] [phone] PCP - General 05/14/17 [facility] 09/01/25 documented as of this encounter
--- OUTSIDE RECORDS SUMMARY | 2025-09-23 21:02 | XMS_ITS | Encounter Summary ---
Author Organization [facility] Address [address] [place] [address] Phone Care Team Providers Care Hydraulic Pile Hammer Operator Name Role Phone Ilya Gusman MD Primary Care Provider [phone] Encounter Details Date Type Department Care Team (Late st Contact Info) Description 05/02/2022 Scanned Document [facility] - Health Information Department [address] [place], [place] [phone] Scan, No Provider Available [address] [facility] [place] [address] <No scans attached> Social History Tobacco Use [...] [facility] - Internal Medicine [address] [place] [phone] Ilya Gusamn MD [address] [place] [phone] Christophe Dailey MD [address] [place] [phone] 01/18/2026 1:00 PM EST Office Visit [facility] [address] [place] [address] Porsha Marsh, PAINTER ROUGH [address] [place] [address] 02/22/2026 11:00 AM EDT Office Visit [facility] [address] [place] [address] [address] [place] [phone] Alonso Bae MD [address] [place] [address] [address] [place] [address] 07/17/2026 2:00 PM EDT Office Visit [facility] - Internal Medicine [address] [place] [phone] Ilya Gusman MD [address] [place] [phone] 07/19/2026 11:40 AM EDT Office Visit [facility] [address] [place] [address] Yesi Perez MD [address] [place] [address] documented as of this encounter Visit Diagnoses [...] documented as of this encounter Care Teams Hydraulic Pile Hammer Operator Relationship Specialty Start Date End Date Ilya Gusman MD [address] [place] [phone] PCP - General 05/14/17 [facility] 09/01/25 documented as of this encounter
--- OUTSIDE RECORDS SUMMARY | 2025-09-23 21:02 | XMS_ITS | Encounter Summary ---
Author Organization [facility] Address [address] [place] [address] Phone Care Team Providers Care Organic Preparation Technician Name Role Phone Ilya Gusman MD Primary Care Provider [phone] Encounter Details Date Type Department Care Team (Late Contact Info) Description 09/22/[address] [facility] - Health Information Department [address] [place] [address] Scan, No Provider Available [address] [place] [address] [place] [address] <No scans attached> Social History Tobacco Use [...] [facility] [address] [place] [phone] Ilya Gusman MD [address] [place] [phone] Christophe Dailey MD [address] [place] [address] [phone] 01/18/2026 1:00 PM EST Office Visit [facility] [address] [place] [address] Porsha Marsh, AUTOMOTIVE MANUFACTURER [address] [place] [address] 02/22/2026 11:00 AM EDT Office Visit [facility] [address] [place] [address] [address] [place] [phone] Alonso Bae MD [address] [place] [address] [address] [place] [address] 07/17/2026 2:00 PM EDT Office Visit [facility] - Internal Medicine [address] [place] [phone] Ilya Gusman MD [address] [place] [phone] 07/19/2026 11:40 AM EDT Office Visit [facility] [address] [place] [address] Yesi Perez MD [address] [place] [address] documented as of this encounter Visit Diagnoses Not on filedocumented in this encounter Additional Health Concerns Infection Onset Date Last Indicated Resolved Time C difficile Rule-Out 11/01/2024 11/02/2024 024 9:43 AM EST Assessment Noted Time PHQ-9 Depression Total Score: 6 04/28/20 24 1:53 PM EDT documented as of this encounter Care Teams Organic Preparation Technician Relationship Specialty Start Date End Date Ilya Gusman MD [address] [place] [phone] PCP - General 05/14/17 [facility] 09/01/25 documented as of this encounter
--- OUTSIDE RECORDS SUMMARY | 2025-09-23 21:02 | XMS_ITS | Encounter Summary ---
Author Organization [facility]stem Address [address] [place] [address] Phone Care Team Providers Care Property Claims Manager Name Role Phone Ilya Gusman MD Primary Care Provider Encounter Details Date Type Department Care Team (Late Contact Info) Description 12/17/2024 Scanned Document [facility] - Health Information Department [address] [place] [phone] Scan, No Provider Available [address] [place] [address] [place] [address] <No scans attached> Social History Tobacco Use [...] Upcoming Encounters Date Type Department Care Team ([facility] Contact Info) Description 10/06/2025 10:45 AM EST Office Visit [facility] - Internal Medicine [address] [place] [phone] Ilya Gusman MD [address] [place] [phone] Christophe Dailey MD [address] [place] [address] [phone] 01/18/2026 1:00 PM EST Office Visit [facility] [address] [place] [address] Porsha Marsh, AIR EXPORT COORDINATOR [address] [place] [address] 02/22/2026 11:00 AM EDT Office Visit [facility] [address] [place] [address] [address] [place] [phone] Alonso Bae MD [address] [place] [address] [address] [place] [address] 07/17/2026 2:00 PM EDT Office Visit [facility] - Internal Medicine [address] [place] [phone] Ilya Gusman MD [address] [place] [phone] 07/19/2026 11:40 AM EDT Office Visit [facility] [address] [place] [address] Yesi Perez MD [address] [place] [address] documented as of this encounter Visit Diagnoses Not on filedocumented in this encounter Additional Health Concerns Assessment Noted Time PHQ-9 Depression Total Score: 6 04/28/20 24 1:53 PM EDT documented as of this encounter Care Teams Property Claims Manager Relationship Specialty Start Date End Date Ilya Gusman MD [address] [place] [phone] PCP - General 05/14/17 [facility] 09/01/25 documented as of this encounter
--- OUTSIDE RECORDS SUMMARY | 2025-09-23 21:02 | XMS_ITS | Encounter Summary ---
Author Organization [facility] Address [address] [place] [address] Phone Care Team Providers Care Talcer Name Role Phone Ilya Gusman MD Primary Care Provider [phone] Encounter Details Date Type Department Care Team (Late Contact Info) Description 11/10/2018 Procedure Pass [facility] - Day Surgery 2 [place] [address] Social History Tobacco Use Types [...] Visit [facility] - Internal Medicine [address] [place] [phone] Ilya Gusman MD [address] [place] [phone] Christophe Dailey MD [address] [place] [phone] 01/18/2026 1:00 PM EST Office Visit [facility] [address] [place] [address] Porsha Marsh, MACHINE I COREMAKER [address] [place] [address] 02/22/2026 11:00 AM EDT Office Visit [facility] [address] [place] [address] [address] [place] [phone] Alonso Bae MD [address] [place] [address] [address] [place] [address] 07/17/2026 2:00 PM EDT Office Visit [facility] - Internal Medicine [address] [place] [phone] Ilya Gusman MD [address] [place] [phone] 07/19/2026 11:40 AM EDT Office Visit [facility] [address] [place] [address] Yesi Perez MD [address] [place] [address] documented as of this encounter Visit Diagnoses Not on filedocumented in this encounter Additional Health Concerns Infection Onset Date Last Indicated Resolved Time Covid Possible 08/21/2021 08/21/2021 08/21/2021 10 :22 PM EDT Covid Possible 05/24/2022 05/24/2022 05/24/2022 4: 21 PM EDT C difficile Rule-Out 10/03/2022 10/03/202210/04/2 022 9:20 AM EST Covid Possible 10/30/2022 [...] documented as of this encounter Care Teams Talcer Relationship Specialty Start Date End Date Ilya Gusman MD [address] [place] [address] [phone] PCP - General 05/14/17 [facility] 09/01/25 documented as of this encounter
--- OUTSIDE RECORDS SUMMARY | 2025-09-23 21:02 | XMS_ITS | Encounter Summary ---
Author Organization [facility] Address [address] [place] [address] Phone Care Team Providers Care Dev Manager Name Role Phone Ilya Gusman MD Primary Care Provider [phone] Reason for Visit * Reason Comments Med Refill Encounter Details Date Type Department Care Team (Late Contact Info) Description 11/15/[address] [facility] - Internal Medicine [address] [place] [phone] Ilya Gusman MD [address] [place] [phone] Med Refill Social History Tobacco Use [...] [facility] - Internal Medicine [address] [place] [phone] Ilya Gusman MD [address] [place] [phone] Christophe Dailey MD [address] [place] [phone] 01/18/2026 1:00 PM EST Office Visit [facility] [address] [place] [address] Porsha Marsh, MARILIA [address] [place] [address] 02/22/2026 11:00 AM EDT Office Visit [facility] [address] [place] [address] [address] [place] [phone] Alonso Bae MD [address] [place] [address] [address] [place] [address] 07/17/2026 2:00 PM EDT Office Visit [facility] - Internal Medicine [address] [place] [phone] Ilya Gusman MD [address] [place] [phone] 07/19/2026 11:40 AM EDT Office Visit [facility] [address] [place] [address] Yesi Perez MD [address] [place] [address] documented as of this encounter Visit Diagnoses Not on filedocumented in this encounter Additional Health Concerns Assessment Noted Time PHQ-9 Depression Total Score: 6 04/28/20 24 1:53 PM EDT documented as of this encounter Care Teams Dev Manager Relationship Specialty Start Date End Date Ilya Gusman MD [address] [place] [phone] PCP - General 05/14/17 [facility] 09/01/25 documented as of this encounter
--- OUTSIDE RECORDS SUMMARY | 2025-09-23 21:02 | XMS_ITS | Encounter Summary ---
Author Organization [facility]stem Address [address] [place] [address] Phone Care Team Providers Care Recordist Chief Name Role Phone Ilya Gusman MD Primary Care Provider [phone] Encounter Details Date Type Department Care Team (Late Contact Info) Description 11/03/2024 Procedure Pass [facility] Endoscopy [address] [place] [phone] Social History Tobacco Use Types [...] Encounters Date Type Department Care Team ([facility] Contact Info) Description 10/06/2025 10:45 AM EST Office Visit [facility] - Internal Medicine [address] [place] [phone] Ilya Gusman MD [address] [place] [phone] Christophe Dailey MD [address] [place] [phone] 01/18/2026 1:00 PM EST Office Visit [facility] [address] [place] [address] Porsha Marsh, SURVEY ASSOCIATE [address] [place] [address] 02/22/2026 11:00 AM EDT Office Visit [facility] [address] [place] [address] [address] [place] [phone] Alonso Bae MD [address] [place] [address] 2 [place] [address] 07/17/2026 2:00 PM EDT Office Visit [facility] - Internal Medicine [address] [place] [phone] Ilya Gusman MD [address] [place] [phone] 07/19/2026 11:40 AM EDT Office Visit [facility] [address] [place] [address] Yesi Perez MD [address] [place] [address] documented as of this encounter Visit Diagnoses Not on filedocumented in this encounter Additional Health Concerns Assessment Noted Time PHQ-9 Depression Total Score: 6 04/28/20 24 1:53 PM EDT documented as of this encounter Care Teams Recordist Chief Relationship Specialty Start Date End Date Ilya Gusman MD [address] [place] [phone] PCP - General 05/14/17 [facility] 09/01/25 documented as of this encounter
--- OUTSIDE RECORDS SUMMARY | 2025-09-23 21:02 | XMS_ITS | Encounter Summary ---
Author Organization [facility] Address [address] [place] [address] Phone Care Team Providers Care Water Carter Name Role Phone Ilya Gusman MD Primary Care Provider [phone] Reason for Visit * Reason Onset Date Comments Med Refill 07/01/2022 Encounter Details Date Type Department Care Team (Late st Contact Info) Description 07/01/2022 Refill [facility] - Internal Medicine [address] [place] [address] [phone] Ilya Gusman MD [address] [place] [phone] Med Refill Social History Tobacco Use [...] suspected to have Coronavirus/COVID-19? No / Unsure 07/02/2022 1:45 PM EDT documented as of this encounter Plan of Treatment Upcoming Encounters Date Type Department Care Team (Late st Contact Info) Description 10/06/2025 10:45 AM EST Office Visit [facility] - Internal Medicine [address] [place] [phone] Ilya Gusman MD [address] [place] [phone] Christophe Dailey MD [address] [place] [phone] 01/18/2026 1:00 PM EST [facility] [address] [facility] Noah [address] [place] [address] Porsha Marsh, GOVERNMENT AUDITOR [address] [place] [address] 02/22/2026 11:00 AM EDT Office [facility] [address] [place] [address] [address] [place] [phone] Alonso Bae MD [address] [place] [address] [address] [place] [address] 07/17/2026 2:00 PM EDT Office Visit [facility] - Internal Medicine [address] [place] [phone] Ilya Gusman MD [address] [place] [phone] 07/19/2026 11:40 AM EDT Office Visit [facility] [address] [address] Yesi Perez MD 70 [place] [address] documented as of this encounter Visit Diagnoses [...] documented as of this encounter Care Teams Water Carter Relationship Specialty Start Date End Date Ilya Gusman MD [address] [place] [address] [phone] PCP - General 05/14/17 [facility] 09/01/25 documented as of this encounter
--- OUTSIDE RECORDS SUMMARY | 2025-09-23 21:02 | XMS_ITS | Encounter Summary ---
Author Organization [facility] Address [address] [place] [address] Phone Care Team Providers Care What Job Titles Mean Name Role Phone Ilya Gusman MD Primary Care Provider [phone] Encounter Details Date Type Department Care Team (Late Contact Info) Description 11/03/2024 Scanned Document [facility] - Health Information Department [address] [place] [phone] Scan, No Provider Available [address] [place] [address] [place] [address] <No scans attached> Social History Tobacco Use [...] Upcoming Encounters Date Type Department Care Team ([facility] Contact Info) Description 10/06/2025 10:45 AM EST Office Visit [facility] - Internal Medicine [address] [place] [phone] Ilya Gusman MD [address] [place] [phone] Christophe Dailey MD [address] [place] [address] [phone] 01/18/2026 1:00 PM EST Office Visit [facility] [address] [place] [address] Porsha Marsh, NET FINISHER [address] [place] [address] 02/22/2026 11:00 AM EDT Office Visit [facility] [address] [place] [address] [address] [place] [phone] Alonso Bae MD [address] [place] [address] [address] [place] [address] 07/17/2026 2:00 PM EDT Office Visit [facility] - Internal Medicine [address] [place] [phone] Ilya Gusman MD [address] [place] [phone] 07/19/2026 11:40 AM EDT Office Visit [facility] [address] [place] [address] Yesi Perez MD [address] [place] [address] documented as of this encounter Visit Diagnoses Not on filedocumented in this encounter Additional Health Concerns Assessment Noted Time PHQ-9 Depression Total Score: 6 04/28/20 24 1:53 PM EDT documented as of this encounter Care Teams What Job Titles Mean Relationship Specialty Start Date End Date Ilya Gusman MD [address] [place] [phone] PCP - General 05/14/17 [facility] 09/01/25 documented as of this encounter
--- OUTSIDE RECORDS SUMMARY | 2025-09-23 21:02 | XMS_ITS | Encounter Summary ---
Author Organization [facility] Address [address] [place] [address] Phone Care Team Providers Care Office Services Manager Name Role Phone Ilya Gusman MD Primary Care Provider [phone] Encounter Details Date Type Department Care Team (Late Contact Info) Description 08/12/2024 Scanned Document [facility] - Health Information Department [address] [place] [phone] Scan, No Provider Available [address] [place] [address] [place] [address] <No scans attached> Social History Tobacco Use [...] Department Care Team ([facility] Contact Info) Description 10/06/2025 10:45 AM EST Office Visit [facility] - Internal Medicine [address] [place] [phone] Ilya Gusman MD [address] [place] [phone] Christophe Dailey MD [address] [place] [address] [phone] 01/18/2026 1:00 PM EST Office Visit [facility] [address] [place] [address] Porsha Marsh, ELECTRICIAN SUPERVISOR [address] [place] [address] 02/22/2026 11:00 AM EDT Office Visit [facility] [address] [place] [address] [address] [place] [phone] Alonso Bae MD [address] [place] [address] [address] [place] [address] 07/17/2026 2:00 PM EDT Office Visit [facility] - Internal Medicine [address] [place] [phone] Ilya Gusman MD [address] [place] [phone] 07/19/2026 11:40 AM EDT Office Visit [facility] [address] [place] [address] Yesi Perez MD [address] [place] [address] documented as of this encounter Visit Diagnoses Not on filedocumented in this encounter Additional Health Concerns Infection Onset Date Last Indicated Resolved Time C difficile Rule-Out 11/01/2024 11/02/2024 024 9:43 AM EST Assessment Noted Time PHQ-9 Depression Total Score: 6 04/28/20 24 1:53 PM EDT documented as of this encounter Care Teams Office Services Manager Relationship Specialty Start Date End Date Ilya Gusman MD [address] [place] [address] [phone] PCP - General 05/14/17 [facility] 09/01/25 documented as of this encounter
--- OUTSIDE RECORDS SUMMARY | 2025-09-23 21:02 | XMS_ITS | Encounter Summary ---
Author Organization [facility] Address [address] [place] [address] Phone Care Team Providers Care Construction Management Instructor Name Role Phone Ilya Gusman MD Primary Care Provider [phone] Reason for Referral * Ultrasound - Closed Specialty Diagnoses / Procedures Referred By [place] t Referred To Contact Radiology Diagnoses Prostate cancer (CMS/HCC) Procedures Urology ultrasound prostate marker placement Alonso Bae MD [address] [place] [address] [address] [place] [address] Phone: tel: fax: Referral ID Status Reason Start Date Expiration Date Visits Re quested Visits Authorized [id number] Closed 06/12/2022 09/14/2023 1 1 Encounter Details Date Type Department Care Team ([facility] Contact Info) Description 06/12/2022 Orders Only [facility] [address] [place] [phone] Anjelica Rosario [place] Prostate cancer (CMS/HCC) (Primary Dx) Social History Tobacco Use [...] In the last 10 days, have chuck chandler been in contact with someone who was confirmed or suspected to have Coronavirus/COVID-19? No / Unsure 05/22/2022 2:42 PM EDT documented as of this encounter Plan of Treatment Upcoming Encounters Date Type Department Care Team ([facility] st Contact Info) Description 10/06/2025 10:45 AM EST Office Visit [facility] - Internal Medicine [address] [place] [phone] Ilya Gusman MD [address] [place] [phone] Christophe Dailey MD [address] [place] [address] [phone] 01/18/2026 1:00 PM EST Office Visit [facility] [address] [address] Porsha Marsh, DRAMA PROFESSOR 70 [place] [address] 02/22/2026 11:00 AM EDT Office Visit [facility] [address] [place] [phone] Alonso Bae MD [address] [place] [address] [address] [place] [address] 07/17/2026 2:00 PM EDT Office Visit [facility] - Internal Medicine [address] [place] [address] [phone] Ilya Gusman MD [address] [place] [phone] 07/19/2026 11:40 AM EDT Office Visit [facility] [address] [address] Yesi ePrez MD 70 [place] [address] documented as of this encounter Results * Urology ultrasound prostate marker placement (07/15/2022 11:45 AM EDT) Anatomical Region Laterality Modality Body Ultrasound Narrative 07/15/2022 1:06 PM EDT Prostate Channel Supervisor Implantation - 24013, 30384, 64152, [id number] The patient was brought to the ultrasound suite and the risks, benefits and some of the possible complications of the procedure were discussed with him in detail including the risk of bacteremia, sepsis, dysuria, fever, chills, hematuria, blood in the bowel movements and hematospermia. All questions were answered fully and informed consent was given for the procedure. The patient confirmed that he had taken his pre-procedure antibiotic as directed. The patient was placed in a comfortable left lateral decubitus position. 10cc of 1% Lidocaine was instilled using ultrasound guidance into the junction of each seminal vesicle of the prostate. Gold markers were placed into the prostate using the standard template and ultrasound guidance. Accurate placement of the markers was confirmed. The patient was instructed that he might have blood in his urine, blood in his bowel movement and blood in his semen in the post-procedure period. He was also instructed to take the remaining antibiotics over the next eight days. Prostatic ultrasound with successful dress marker placement was well tolerated by the patient. The patient was given strict instructions to call for fever, nausea, vomiting, flank pain, difficulties urinating, urinary frequency, or other illness. He will proceed with radiation therapy treatments as planned. us Alonso Bae MD [facility] US PROCEDURES Final Result documented in this encounter Visit Diagnoses Diagnosis Prostate cancer (CMS/HCC)- Primary Malignant neoplasm of prostate Prostate cancer (CMS/HCC) [...] documented as of this encounter Care Teams Construction Management Instructor Relationship Specialty Start Date End Date Ilya Gusman MD [address] [place] [address] [phone] PCP - General 05/14/17 [facility] 09/01/25 documented as of this encounter
--- OUTSIDE RECORDS SUMMARY | 2025-09-23 21:02 | XMS_ITS | Encounter Summary ---
Author Organization [facility] Address [address] [place] [address] Phone Care Team Providers Care Base Cloth Inspector Name Role Phone Ilya Gusman MD Primary Care Provider [phone] Encounter Details Date Type Department Care Team (Late Contact Info) Description 10/16/2024 Scanned Document [facility] - Health Information Department [address] [place] [phone] Scan, No Provider Available [address] [place] [address] [place] [address] <No scans attached> Social History Tobacco Use [...] Date Type Department Care Team ([facility] Contact Info) Description 10/06/2025 10:45 AM EST Office Visit [facility] - Internal Medicine [address] [place] [phone] Ilya Gusman MD [address] [place] [phone] Christophe Dailey MD [address] [place] [address] [phone] 01/18/2026 1:00 PM EST Office Visit [facility] [address] [place] [address] Porsha Marsh, AUTOMATIC TELLER MACHINE SERVICER [address] [place] [address] 02/22/2026 11:00 AM EDT Office Visit [facility] [address] [place] [address] [address] [place] [phone] Alonso Bae MD [address] [place] [address] [address] [place] [address] 07/17/2026 2:00 PM EDT Office Visit [facility] - Internal Medicine [address] [place] [phone] Ilya Gusman MD [address] [place] [phone] 07/19/2026 11:40 AM EDT Office Visit [facility] [address] [place] [address] Yesi Perez MD [address] [place] [address] documented as of this encounter Visit Diagnoses Not on filedocumented in this encounter Additional Health Concerns Infection Onset Date Last Indicated Resolved Time C difficile Rule-Out 11/01/2024 11/02/2024 024 9:43 AM EST Assessment Noted Time PHQ-9 Depression Total Score: 6 04/28/20 24 1:53 PM EDT documented as of this encounter Care Teams Base Cloth Inspector Relationship Specialty Start Date End Date Ilya Gusman MD [address] [place] [address] [phone] PCP - General 05/14/17 [facility] 09/01/25 documented as of this encounter
--- OUTSIDE RECORDS SUMMARY | 2025-09-23 21:02 | XMS_ITS | Encounter Summary ---
Author Organization [facility] Address [address] [place] [address] Phone Care Team Providers Care Stave Inspector Name Role Phone Ilya Gusman MD Primary Care Provider [phone] Reason for Visit * Reason Onset Date Comments Med Refill 05/06/2022 Encounter Details Date Type Department Care Team (Late st Contact Info) Description 05/06/2022 Refill [facility] - Internal Medicine [address] [place] [address] [phone] Christophe Dailey MD [address] [place] [phone] Med Refill Social History Tobacco Use [...] Telephone Encounter - Kristina Schneider, PhT - 05/08/2022 1:57 PM EDT Pt calling to check on the status of this request for Hydromorphone due today. Med was denied but no reason for me to give Pt. Please contact Pt to let him know why this was denied. Thanks Kristina Schneider [facility] Refill Team [facility] * Telephone Encounter - Kristina Schneider, PhT - 05/07/2022 8:12 AM EDT Refill Hydromorphone 4mg #84 DRUG COUNSELOR LOCATION: [facility] DATE OF LAST REFILL? 04/24/22 FREQUENCY OF REFILLS? 14 days DATE REFILL IS DUE? 05/08/22 IS THIS AN EARLY REFILL? (Requests made within 72hrs of refill date are not considered early, this allows for processing time) No CONTROLLED SUBSTANCE AGREEMENT ON FILE? Yes Last UDS on 08/06/21 Last OV on 04/18/22 Future Appointments Date Time Provider Department Center 05/14/2022 11:30 AM SSH NM INJECTION CHAIR H NUC [facility] 05/14/2022 12:[address] 05/14/2022 2:45 PM SSH NM 3 SSH NUC H 10/21/2022 11:00 AM Ilya Gusman MD LNG IM LNG HEALTH PLAN MANAGER reviewed on 05/07/2022 by Ian BARNETT and no red flags were noted documented in this encounter Plan of Treatment Upcoming Encounters Date Type Department Care Team (Late st Contact Info) Description 10/06/2025 10:45 AM EST Office Visit [facility] - Internal Medicine [address] [place] [phone] Ilya Gusman MD [address] [place] [phone] Christophe Dailey MD [address] [place] [phone] 01/18/2026 1:00 PM EST Office Visit [facility] [address] [place] [address] Porsha Marsh CNP [address] [place] [address] 02/22/2026 11:00 AM EDT Office Visit [facility] [address] [place] [address] [address] [place] [phone] Alonso Bae MD [address] [place] [address] [address] [place] [address] 07/17/2026 2:00 PM EDT Office Visit [facility] - Internal Medicine [address] [place] [phone] Ilya Gusman MD [address] [place] [phone] 07/19/2026 11:40 AM EDT Office Visit [facility] [address] [place] [address] Yesi Perez MD [address] [place] [address] documented as of this encounter Visit Diagnoses [...] documented as of this encounter Care Teams Stave Inspector Relationship Specialty Start Date End Date Ilya Gusman MD [address] [place] [phone] PCP - General 05/14/17 [facility] 09/01/25 documented as of this encounter
--- OUTSIDE RECORDS SUMMARY | 2025-09-23 21:02 | XMS_ITS | Encounter Summary ---
Author Organization [facility] Address [address] [place] [address] Phone Care Team Providers Care Cruise Director Name Role Phone Ilya Gusman MD Primary Care Provider [phone] Encounter Details Date Type Department Care Team (Late Contact Info) Description 06/24/2022 Scanned Document [facility] - Health Information Department [address] [place], [place] [phone] Scan, No Provider Available [address] [place] [address] [place] [address] <No scans attached> Social History Tobacco Use [...] Office Visit [facility] - Internal Medicine [address] [place] [phone] Ilya Gusman MD [address] [place] [phone] Christophe Dailey MD [address] [place] [phone] 01/18/2026 1:00 PM EST Office Visit [facility] [address] [place] [address] Porsha Marsh, MARILIA [address] [place] [address] 02/22/2026 11:00 AM EDT Office Visit [facility] [address] [place] [address] [address] [place] [phone] Alonso Bae MD [address] [place] [address] [address] [place] [address] 07/17/2026 2:00 PM EDT Office Visit [facility] - Internal Medicine [address] [place] [phone] Ilya Gusman MD [address] [place] [phone] 07/19/2026 11:40 AM EDT Office Visit [facility] [address] [place] [address] Yesi Perez MD [address] [place] [address] documented as of this encounter Visit Diagnoses [...] documented as of this encounter Care Teams Cruise Director Relationship Specialty Start Date End Date Ilya Gusman MD [address] [place] [phone] PCP - General 05/14/17 [facility] 09/01/25 documented as of this encounter
--- OUTSIDE RECORDS SUMMARY | 2025-09-23 21:02 | XMS_ITS | Encounter Summary ---
Author Organization [facility] Address [address] [place] [address] Phone Care Team Providers Care Machine Set Up Technician Name Role Phone Ilya Gusman MD Primary Care Provider [phone] Reason for Visit * Reason Onset Date Comments Med Refill 12/25/2018 Encounter Details Date Type Department Care Team ([facility] Contact Info) Description 12/25/2018 Refill [facility] - Internal Medicine [address] [place] [phone] Ilya Gusman MD [address] [place] [phone] Med Refill Social History Tobacco Use [...] [facility] - Internal Medicine [address] [place] [phone] Ilya Gusman MD [address] [place] [phone] Christophe Dailey MD [address] [place] [phone] 01/18/2026 1:00 PM EST Office Visit [facility] [address] [place] [address] Porsha Marsh, [address] [address] 02/22/2026 11:00 AM EDT Office Visit [facility] [address] [place] [address] [address] [place] [phone] Alonso Bae MD [address] [place] [address] [address] [place] [address] 07/17/2026 2:00 PM EDT Office Visit [facility] - Internal Medicine [address] [place] [phone] Ilya Gusman MD [address] [place] [phone] 07/19/2026 11:40 AM EDT Office Visit [facility] [address] [place] [address] Yesi Perez MD [address] [place] [address] documented as of this encounter Visit Diagnoses [...] as of this encounter Care Teams Machine Set Up Technician Relationship Specialty Start Date End Date Ilya Gusman MD [address] [place] [address] [phone] PCP - General 05/14/17 [facility] 09/01/25 documented as of this encounter
--- OUTSIDE RECORDS SUMMARY | 2025-09-23 21:02 | XMS_ITS | Encounter Summary ---
Author Organization [facility] Address [address] [place] [address] Phone Care Team Providers Care Principal Gifts Officer Name Role Phone Ilya Gusman MD Primary Care Provider [phone] Encounter Details Date Type Department Care Team (Late st Contact Info) Description 05/16/2022 Abstract [facility] [address] [place] [address] [address] [place] [phone] Alejandro Lion MD [facility] at [address] [place] [address] Social History Tobacco Use Types Packs/Day Years [...] Office Visit [facility] - Internal Medicine [address] [place] [phone] Ilya Gusman MD [address] [place] [phone] Christophe Dailey MD [address] [place] [phone] 01/18/2026 1:00 PM EST Office Visit [facility] [address] [address] Porsha Marsh, COMPUTER ANIMATOR 70 [place] [address] 02/22/2026 11:00 AM EDT Office Visit [facility] [address] [place] [address] [address] [place] [phone] Alonso Bae MD [address] [place] [address] [address] [place] [address] 07/17/2026 2:00 PM EDT Office Visit [facility] - Internal Medicine [address] [place] [phone] Ilya Gusman MD [address] [place] [phone] 07/19/2026 11:40 AM EDT Office Visit [facility] [address] [place] [address] Yesi Perez MD [address] [place] [address] documented as of this encounter Visit Diagnoses [...] documented as of this encounter Care Teams Principal Gifts Officer Relationship Specialty Start Date End Date Ilya Gusman MD [address] [place] [phone] PCP - General 05/14/17 [facility] 09/01/25 documented as of this encounter
--- OUTSIDE RECORDS SUMMARY | 2025-09-23 21:02 | XMS_ITS | Encounter Summary ---
Author Organization [facility] ystem Address [address] [place] [address] Phone Care Team Providers Care Neckties Painter Name Role Phone Ilya Gusman MD Primary Care Provider [phone] Encounter Details Date Type Department Care Team (Late Contact Info) Description 10/19/2024 Scanned Document [facility] - Health Information Department [address] [place] [phone] Scan, No Provider Available [address] [place] [address] [place] [address] <No scans attached> Social History Tobacco Use [...] Encounters Date Type Department Care Team ([facility] Contact Info) Description 10/06/2025 10:45 AM EST Office Visit [facility] - Internal Medicine [address] [place] [phone] Ilya Gusman MD [address] [place] [phone] Christophe Dailey MD [address] [place] [address] [phone] 01/18/2026 1:00 PM EST Office Visit [facility] [address] [place] [address] Porsha Marsh, IT RISK AND ASSURANCE SENIOR MANAGER [address] [place] [address] 02/22/2026 11:00 AM EDT Office Visit [facility] [address] [place] [address] [address] [place] [phone] Alonso Bae MD [address] [place] [address] [address] [place] [address] 07/17/2026 2:00 PM EDT Office Visit [facility] - Internal Medicine [address] [place] [phone] Ilya Gusman MD [address] [place] [phone] 07/19/2026 11:40 AM EDT Office Visit [facility] [address] [place] [address] Yesi Perez MD [address] [place] [address] documented as of this encounter Visit Diagnoses Not on filedocumented in this encounter Additional Health Concerns Infection Onset Date Last Indicated Resolved Time C difficile Rule-Out 11/01/2024 11/02/2024 024 9:43 AM EST Assessment Noted Time PHQ-9 Depression Total Score: 6 04/28/20 24 1:53 PM EDT documented as of this encounter Care Teams Neckties Painter Relationship Specialty Start Date End Date Ilya Gusman MD [address] [place] [address] [phone] PCP - General 05/14/17 [facility] 09/01/25 documented as of this encounter
--- OUTSIDE RECORDS SUMMARY | 2025-09-23 21:02 | XMS_ITS | Encounter Summary ---
Author Organization [facility] Address [address] [place] [address] Phone Care Team Providers Care Aerospace Project Engineer Name Role Phone Ilya Gusman MD Primary Care Provider [phone] Reason for Visit * Reason Comments Med Refill Encounter Details Date Type Department Care Team (Late Contact Info) Description 11/04/2024 Refill [facility] - Internal Medicine [address] [place] [phone] Ilya Gusman MD [address] [place] [phone] Med Refill Social History Tobacco Use [...] Telephone Encounter - Ilya Gusman MD - 11/05/2024 7:21 PM EST dup documented in this encounter Plan of Treatment Upcoming Encounters Date Type Department Care Team (Late st Contact Info) Description 10/06/2025 10:45 AM EST Office Visit [facility] - Internal Medicine [address] [place] [phone] Ilya Gusman MD [address] [place] [phone] Christophe Dailey MD [address] [place] [phone] 01/18/2026 1:00 PM EST Office Visit [facility] [address] [place] [address] Porsha Marsh, OXYGEN PLANT OPERATOR [address] [place] [address] 02/22/2026 11:00 AM EDT Office Visit [facility] [address] [place] [address] [address] [place] [phone] Alonso Bae MD [address] [place] [address] [address] [place] [address] 07/17/2026 2:00 PM EDT Office Visit [facility] - Internal Medicine [address] [place] [phone] Ilya Gusman MD [address] [place] [phone] 07/19/2026 11:40 AM EDT Office Visit [facility] [address] [place] [phone] Yesi Perez MD 70 [place] [address] documented as of this encounter Visit Diagnoses Not on filedocumented in this encounter Additional Health Concerns Assessment Noted Time PHQ-9 Depression Total Score: 6 04/28/20 24 1:53 PM EDT documented as of this encounter Care Teams Aerospace Project Engineer Relationship Specialty Start Date End Date Ilya Gusman MD [address] [place] [phone] PCP - General 05/14/17 [facility] 09/01/25 documented as of this encounter
--- OUTSIDE RECORDS SUMMARY | 2025-09-23 21:02 | XMS_ITS | Encounter Summary ---
Author Organization [facility] ystem Address [address] [place] [address] Phone Care Team Providers Care Radiator Core Tester Name Role Phone Ilya Gusman MD Primary Care Provider [phone] Encounter Details Date Type Department Care Team ([facility] Contact Info) Description 08/27/2024 Orders Only [facility] - Health Information Department [address] [place] [phone] Scan, No Provider Available [address] [place] [address] Dr[place] Eleazar [place] [phone] Social History Tobacco Use Types Packs/Day Years [...] Upcoming Encounters Date Type Department Care Team ([facility] Contact Info) Description 10/06/2025 10:45 AM EST Office Visit [facility] - Internal Medicine [address] [place] [address] [phone] Ilya Gusman MD [address] [place] [phone] Christophe Dailey MD [address] [place] [address] [phone] 01/18/2026 1:00 PM EST Office Visit [facility] [address] [place] [address] Porsha Marsh, NEUROSURGERY RESEARCH DIRECTOR [address] [place] [address] 02/22/2026 11:00 AM EDT Office Visit [facility] [address] [place] [address] [address] [place] [phone] Alonso Bae MD [address] [place] [address] [address] [place] [address] 07/17/2026 2:00 PM EDT Office Visit [facility] - Internal Medicine [address] [place] [phone] Ilya Gusman MD [address] [place] [address] [phone] 07/19/2026 11:40 AM EDT Office Visit [facility] [address] [place] [address] Yesi Perez MD [address] [place] [address] documented as of this encounter Procedures Procedure Name Priority Date/Time Associated Diagnosis Comments MR INO COX Routine 08/24/2024 11:55 AM EDT documented in this encounter Results * MR Ino cox (08/24/2024 11:55 AM EDT) us No Provider Available Scan LAB BLOOD ORDERABLES Final Result documented in this encounter Visit Diagnoses Not on filedocumented in this encounter Additional Health Concerns Infection Onset Date Last Indicated Resolved Time C difficile Rule-Out 11/01/2024 11/02/2024 024 9:43 AM EST Assessment Noted Time PHQ-9 Depression Total Score: 6 04/28/20 24 1:53 PM EDT documented as of this encounter Care Teams Radiator Core Tester Relationship Specialty Start Date End Date Ilya Gusman MD [address] [place] [address] [phone] PCP - General 05/14/17 [facility] 09/01/25 documented as of this encounter
--- OUTSIDE RECORDS SUMMARY | 2025-09-23 21:02 | XMS_ITS ---
Author Organization [facility] Address [address] [place], [place] [phone] Care Team Providers Care Canvas Shrinker Name Role Phone Ilya Gusman MD Primary Care Provider [phone] Care Transitions Status:Enrolled (Active) Start date:10/11/2024 Enrollment date:10/11/2024 Enrollment reason:Referred by provider Current support & services provided:MTH Related social drivers of health:Social Connections, Alcohol Use, Tobacco Use, Financial Resource Strain, Depression, Stress, Physical Activity, Food Insecurity, Transportation Needs, Housing Stability, Health Literacy, Utilities, Depression Overview Pulled from legacy reports Continued Care and Services Coordination
--- OUTSIDE RECORDS SUMMARY | 2025-09-23 21:02 | XMS_ITS | Encounter Summary ---
[facility] Organization [facility] Address [address] [place] [address] Phone Care Team Providers Care Community Center Worker Name Role Phone Ilya Gusman MD Primary Care Provider [phone] Reason for Referral * MRI/CAT/PET Scan - Closed Specialty Diagnoses / Procedures Referred By London t Referred To Contact Radiology Procedures CT transfer of outside films Required, No Pcp/Pcp Not [address] [place] [address] Referral ID Status Reason Start Date Expiration Date Visits Re quested Visits Authorized [id number] Closed 05/10/2022 05/11/2023 1 1 * MRI/CAT/PET Scan - Closed Specialty Diagnoses / Procedures Referred By London blankenship Referred To Contact Radiology Procedures CT transfer of outside films Required, No Pcp/Pcp Not [address] [place] [address] Referral ID Status Reason Start Date Expiration Date Visits Re quested Visits Authorized [id number] Closed 05/10/2022 05/11/2023 1 1 Encounter Details Date Type Department Care Team ([facility] Contact Info) Description 05/10/2022 Ancillary Orders [facility] - X-Ray Imaging [address] [place] [phone] Required, No Pcp/Pcp Not [address] [place] [address] Social History Tobacco Use Types Packs/Day Years [...] Visit [facility] - Internal Medicine [address] [place] [phone] Ilya Gusman MD [address] [place] [phone] Christophe Dailey MD [address] [place] [address] [phone] 01/18/2026 1:00 PM EST Office Visit [facility] 70 [facility] 1 [place] [address] Porsha Marsh, MARILIA [address] [place] [address] 02/22/2026 11:00 AM EDT Office Visit [facility] [address] [place] [phone] Alonso Bae MD [address] [facility] [address] [place] [address] 07/17/2026 2:00 PM EDT Office Visit [facility] - Internal Medicine [address] [place] [phone] Ilya Gusman MD [address] [place] [phone] 07/19/2026 11:40 AM EDT Office Visit [facility] [address] [address] Yesi Perez MD 70 [place] [address] documented as of this encounter Results * CT transfer of outside films (05/10/2022 2:02 PM EDT) Narrative [facility] - 05/10/2022 2:02 PM EDT This order contains outside images and has been auto-finalized. us No Pcp/Pcp Not Required IMG CT PROCEDURES Final Result Performing Organization Address [facility] Co de Phone Number [facility] [address] [place] [address], [place] * CT transfer of outside films (05/10/2022 2:00 PM EDT) Narrative [facility] - 05/10/2022 2:00 PM EDT This order contains outside images and has been auto-finalized. us No Pcp/Pcp Not Required IMG CT PROCEDURES Final Result Performing Organization Address [facility]/ZIP Co de Phone Number [facility] [address] [place] [address], documented in this encounter Visit Diagnoses Not [...] documented as of this encounter Care Teams Community Center Worker Relationship Specialty Start Date End Date Ilya Gusman MD [address] [place] [phone] PCP - General 05/14/17 [facility] 09/01/25 documented as of this encounter
--- OUTSIDE RECORDS SUMMARY | 2025-09-23 21:02 | XMS_ITS | Encounter Summary ---
Author Organization [facility] ystem Address [address] [place] [address] Phone Care Team Providers Care Pruner Name Role Phone Ilya Gusman MD Primary Care Provider [phone] Encounter Details Date Type Department Care Team (Late Contact Info) Description 01/19/2019 Scanned Document [facility] - Health Information Department [address] [place] [phone] Scan, No Provider Available [address] [place] [address] [facility] [address] <No scans attached> Social History Tobacco Use [...] 10:45 AM EST Office Visit [facility] - Internal Medicine [address] [place] [phone] Ilya Gusman MD [address] [place] [phone] Christophe Dailey MD [address] [place] [phone] 01/18/2026 1:00 PM EST Office Visit [facility] [address] [place] [address] Porsha Marsh, GEM TECHNICIAN [address] [place] [address] 02/22/2026 11:00 AM EDT Office Visit [facility] [address] [place] [address] [address] [place] [phone] Alonso Bae MD [address] [place] [address] [address] [place] [address] 07/17/2026 2:00 PM EDT Office Visit [facility] - Internal Medicine [address] [place] [phone] Ilya Gusman MD [address] [place] [phone] 07/19/2026 11:40 AM EDT Office Visit [facility] [address] [place] [address] Yesi Perez MD [address] [place] [address] documented as of this encounter Visit Diagnoses [...] documented as of this encounter Care Teams Pruner Relationship Specialty Start Date End Date Ilya Gusman MD [address] [place] [phone] PCP - General 05/14/17 [facility] 09/01/25 documented as of this encounter
--- OUTSIDE RECORDS SUMMARY | 2025-09-23 21:02 | XMS_ITS | Encounter Summary ---
Author Organization [facility] ystem Address [address] [place] [address] Phone Care Team Providers Care Knock Up Assembler Name Role Phone Ilya Gusman MD Primary Care Provider [phone] Encounter Details Date Type Department Care Team (Late Contact Info) Description 11/19/2024 Scanned Document [facility] - Health Information Department [address] [place] [phone] Scan, No Provider Available [address] [place] [address] [place] [id number] <No scans attached> Social History Tobacco Use [...] [facility] Contact Info) Description 10/06/2025 10:45 AM EST Office Visit [facility] - Internal Medicine [address] [place] [phone] Ilya Gusman MD [address] [place] [phone] Christophe Dailey MD [address] [place] [address] [phone] 01/18/2026 1:00 PM EST Office Visit [facility] [address] [place] [address] Porsha Marsh, CONDITIONING MACHINE OPERATOR [address] [place] [address] 02/22/2026 11:00 AM EDT Office Visit [facility] [address] [place] [address] [address] [place] [phone] Alonso Bae MD [address] [place] [address] [address] [place] [address] 07/17/2026 2:00 PM EDT Office Visit [facility] - Internal Medicine [address] [place] [phone] Ilya Gusman MD [address] [place] [phone] 07/19/2026 11:40 AM EDT Office Visit [facility] [address] [place] [address] Yesi Perez MD [address] [place] [address] documented as of this encounter Visit Diagnoses Not on filedocumented in this encounter Additional Health Concerns Assessment Noted Time PHQ-9 Depression Total Score: 6 04/28/20 24 1:53 PM EDT documented as of this encounter Care Teams Knock Up Assembler Relationship Specialty Start Date End Date Ilya Gusman MD [address] [place] [phone] PCP - General 05/14/17 [facility] 09/01/25 documented as of this encounter
--- OUTSIDE RECORDS SUMMARY | 2025-09-23 21:02 | XMS_ITS | Encounter Summary ---
Author Organization [facility] Address [address] [place] [address] Phone Care Team Providers Care Sustainability Specialist Name Role Phone Ilya Gusman MD Primary Care Provider [phone] Reason for Visit * Reason Onset Date Comments Med Refill 02/01/2019 Encounter Details Date Type Department Care Team (Late st Contact Info) Description 02/01/2019 Refill [facility] - Internal Medicine [address] [place] [phone] Ilya Gusman MD [address] [place] [phone] Med Refill Social History Tobacco Use [...] Telephone Encounter - Ilya Gusman MD - 02/02/2019 2:45 PM EDT He should be getting this from his outside prescriber, as indicated on Rx details. * Telephone Encounter - Luz Elena Ace PhT - 02/02/2019 9:56 AM EDT Lamotrigine last written historically. Please advise if ok to fill. Last ov with pcp/apc 01/15/19 Future Appointments Date Time Provider Department Center 02/22/2019 7:45 AM Maria De Jesus Leigh MD PPK PAIN PPK 03/18/2019 8:00 AM Luz Maria Victor PA-C KIN ENC KIN 07/16/2019 9:20 AM Ilya Gusman MD LNG IM LNG Luz Elena Sosa/LÓPEZ Refill Team, Loft documented in this encounter Plan of Treatment Upcoming Encounters Date Type Department Care Team (Late st Contact Info) Description 10/06/2025 10:45 AM EST Office Visit [facility] - Internal Medicine [address] [place] [phone] Ilya Gusman MD [address] [place] [address] [phone] Christophe Dailey MD [address] [place] [address] [phone] 01/18/2026 1:00 PM EST Office Visit [facility] 70 [facility] 1 [place] [address] Porsha Marsh, ULTRASONIC WELDING MACHINE OPERATOR 70 [place] [address] 02/22/2026 11:00 AM EDT Office Visit [facility] [address] [place] [address] [place] [phone] Alonso Bae MD 780 [facility] [address] [place] [address] 07/17/2026 2:00 PM EDT Office Visit [facility] - Internal Medicine [address] [place] [phone] Ilya Gusman MD [address] [place] [address] [phone] 07/19/2026 11:40 AM EDT Office Visit [facility] [address] [address] Yesi Perez MD 70 [place] [address] documented as of this encounter Visit Diagnoses [...] documented as of this encounter Care Teams Sustainability Specialist Relationship Specialty Start Date End Date Ilya Gusman MD [address] [place] [phone] PCP - General 05/14/17 [facility] 09/01/25 documented as of this encounter
--- OUTSIDE RECORDS SUMMARY | 2025-09-23 21:02 | XMS_ITS | Encounter Summary ---
Author Organization [facility] Address [address] [place] [address] Phone Care Team Providers Care Physical Meteorologist Name Role Phone Ilya Gusman MD Primary Care Provider [phone] Reason for Visit * Reason Onset Date Comments Med Refill 02/01/2019 Encounter Details Date Type Department Care Team (Late st Contact Info) Description 02/01/2019 Refill [facility] - Internal Medicine [address] [place] [phone] Ilya Gusman MD [address] [place] [phone] Med Refill Social History Tobacco Use [...] - Luz Elena Ace PhT - 02/02/2019 10:06 AM EDT [facility] DATE OF LAST REFILL? 01/15/19 FREQUENCY OF REFILLS? 19 days DATE REFILL IS DUE? 02/03/19 IS THIS AN EARLY REFILL? No CONTROLLED SUBSTANCE AGREEMENT ON FILE? Yes Last UDS: 12/10/18 DATE OF LAST OFFICE VISIT: 01/15/19 DATE OF NEXT OFFICE VISIT: Future Appointments Date Time Provider Department Center 02/22/2019 7:45 AM Maria De Jesus Leigh MD PPK PAIN PPK 03/18/2019 8:00 AM Luz Maria Victor PA-C KIN ENC KIN 07/16/2019 9:20 AM Ilya Gusman MD LNG IM LNG CORK WIRER reviewed on 02/02/2019 by Ian BRUMFIELD and no red flags were noted Luz Elena Sosa/[place] Refill Team, Loft documented in this encounter Plan of Treatment Upcoming Encounters Date Type Department Care Team (Late st Contact Info) Description 10/06/2025 10:45 AM EST Office Visit [facility] - Internal Medicine [address] [place] [phone] Ilya Gusman MD [address] [place] [phone] Christophe Dailey MD [address] [place] [address] [phone] 01/18/2026 1:00 PM EST Office Visit [facility] 70 [facility] 1 [place] [address] Porsha Marsh, MEDICAL DOCTOR MD/MEDICAL DIRECTOR [address] [place] [address] 02/22/2026 11:00 AM EDT Office Visit [facility] [address] [place] [address] [address] [place] [phone] Alonso Bae MD 780 [facility] [address] [place] [address] 07/17/2026 2:00 PM EDT Office Visit [facility] - Internal Medicine [address] [place] [phone] Ilya Gsuman MD [address] [place] [address] [phone] 07/19/2026 11:40 AM EDT Office Visit [facility] [address] [address] Yesi Perez MD 70 [place] [address] documented as of this encounter Visit Diagnoses [...] documented as of this encounter Care Teams Physical Meteorologist Relationship Specialty Start Date End Date Ilya Gusman MD [address] [place] [phone] PCP - General 05/14/17 [facility] 09/01/25 documented as of this encounter
--- OUTSIDE RECORDS SUMMARY | 2025-09-23 21:02 | XMS_ITS | Encounter Summary ---
Author Organization [facility] Address [address] [place] [address] Phone Care Team Providers Care Yarn Washer Name Role Phone Ilya Gusman MD Primary Care Provider [phone] Encounter Details Date Type Department Care Team (Late Contact Info) Description 06/25/2022 Telephone [facility] [address] [place] [phone] Janae Cody RN Social History Tobacco Use Types Packs/Day [...] [facility] - Internal Medicine [address] [place] [phone] Ilya Gusman MD [address] [place] [phone] Christophe Dailey MD [address] [place] [address] [phone] 01/18/2026 1:00 PM EST Office Visit [facility] [address] [place] [address] Porsha Marsh, GLOBE MOUNTER 70 [place] [address] 02/22/2026 11:00 AM EDT Office Visit [facility] [address] [place] [address] [address] [place] [phone] Alonso Bae MD [address] [place] [address] [address] [place] [address] 07/17/2026 2:00 PM EDT Office Visit [facility] - Internal Medicine [address] [place] [phone] Ilya Gusman MD [address] [place] [address] [phone] 07/19/2026 11:40 AM EDT Office Visit [facility] [address] [place] [address] Yesi Perez MD [address] [place] [address] documented as of this encounter Visit Diagnoses [...] documented as of this encounter Care Teams Yarn Washer Relationship Specialty Start Date End Date Ilya Gusman MD [address] [place] [address] [phone] PCP - General 05/14/17 [facility] 09/01/25 documented as of this encounter
--- OUTSIDE RECORDS SUMMARY | 2025-09-23 21:02 | XMS_ITS | Encounter Summary ---
Author Organization [facility] Address [address] [place] [address] Phone Care Team Providers Care Oil And Gas Recruiter Name Role Phone Ilya Gusman MD Primary Care Provider [phone] Reason for Visit * Reason Onset Date Comments Med Refill 10/05/2024 Encounter Details Date Type Department Care Team (Late Contact Info) Description 10/05/2024 Refill [facility] - Internal Medicine [address] [place] [phone] Sondra Chandra MD [address] [place] [phone] Med Refill Social History Tobacco Use [...] encounter Miscellaneous Notes * Telephone Encounter - Nida Mtz RN - 10/06/2024 1:13 PM EST Incoming call from pt, reports he is returning a missed call. Chart reviewed, no recent documented outreach or request for callback. This nurse unsure if call was related to current pending medication request - routing to involved clinical staff. Pt has post-discharge OV today w/ PCP - pt receives pain medication from alternate IM provider. Future Appointments Date Time Provider Department Center 10/06/2024 2:30 PM Ilya Gusman MD [facility] 11/04/2024 1:00 PM Flaquita Paige NP [facility] 12/08/2024 1:00 PM [facility]i [facility] MD [facility] 02/22/2025 9:45 AM Alonso Bae MD [facility] Pat BSN, care taker Medicine [facility] * Telephone Encounter - Sondra Chandra MD - 10/06/2024 1:11 PM EST We will need to discuss the issue directly before any dose changes. * Telephone Encounter - Jany Daley LPN - 10/06/2024 1:04 PM EST Routing to Dr. Chandra- also please review pt's message about dose increase and advise HYDROmorphone (DILAUDID) 4 MG tablet [SONDRA CHANDRA] Patient Comment: need to change to 2 -4ml every 6 hours due to high tolerance over time. * Telephone Encounter - Kristina Schneider Rylee - 10/05/2024 4:30 PM EST Refill Hydromorphone DATE OF LAST REFILL? 09/23/24 FREQUENCY OF REFILLS? 14 days DATE REFILL IS DUE? 10/07/24 CONTROLLED SUBSTANCE AGREEMENT ON FILE? Yes Last UDS on 09/08/24 Last OV on 07/09/24 Future Appointments Date Time Provider Department Center 10/06/2024 2:30 PM Ilya Gusman MD [facility] 11/04/2024 1:00 PM Flaquita Paige NP [facility] 12/08/2024 1:00 PM Yesi Preez MD WEY CARDIO SS Card Wey 02/22/2025 9:45 AM Alonso Bae MD WEY URO WEY MASTER STEAM YACHT reviewed on 10/05/2024 by Ian BARNETT and no red flags were noted documented in this encounter Plan of Treatment Upcoming Encounters Date Type Department Care Team (Late st Contact Info) Description 10/06/2025 10:45 AM EST Office Visit [facility] - Internal Medicine [address] [place] [phone] Ilya Gusman MD [address] [place] [phone] Sondra Chandra MD [address] [place] [phone] 01/18/2026 1:00 PM EST Office Visit [facility] [address] [address] Porsha Marsh, DIVISION CHIEF [address] [place] [address] 02/22/2026 11:00 AM EDT Office Visit [facility] [address] [place] [address] [address] [place] [phone] Alonso Bae MD [address] [place] [address] [address] [place] [address] 07/17/2026 2:00 PM EDT Office Visit [facility] - Internal Medicine [address] [place] [phone] Ilya Gusman MD [address] [place] [phone] 07/19/2026 11:40 AM EDT Office Visit [facility] [address] [address] Yesi Perez MD 70 [place] [address] documented as of this encounter Visit Diagnoses Not on filedocumented in this encounter Additional Health Concerns Infection Onset Date Last Indicated Resolved Time C difficile Rule-Out 11/01/2024 11/02/2024 024 9:43 AM EST Assessment Noted Time PHQ-9 Depression Total Score: 6 04/28/20 24 1:53 PM EDT documented as of this encounter Care Teams Oil And Gas Recruiter Relationship Specialty Start Date End Date Ilya Gusman MD [address] [place] [phone] PCP - General 05/14/17 [facility] 09/01/25 documented as of this encounter
--- OUTSIDE RECORDS SUMMARY | 2025-09-23 21:02 | XMS_ITS | Encounter Summary ---
Author Organization [facility]stem Address [address] [place] [address] Phone Care Team Providers Care Auditor/Quality Name Role Phone Ilya Gusman MD Primary Care Provider [phone] Encounter Details Date Type Department Care Team ([facility] Contact Info) Description 08/16/2024 Orders Only [facility] - Health Information Department [address] [place] [phone] Scan, No Provider Available [address] [place] [address] Dr. [place] [phone] Social History Tobacco Use Types Packs/Day Years [...] Office Visit [facility] - Internal Medicine [address] [place] [phone] Ilya Gusman MD [address] [place] [phone] Christophe Dailey MD [address] [place] [phone] 01/18/2026 1:00 PM EST Office Visit [facility] [address] [place] [phone] Porsha Marsh, WET WASH ASSEMBLER [address] [place] [address] 02/22/2026 11:00 AM EDT Office Visit [facility] [address] [place] [address] [address] [place] [phone] Alonso Bae MD [address] [place] [address] [address] [place] [address] 07/17/2026 2:00 PM EDT Office Visit [facility] - Internal Medicine [address] [place] [phone] Ilya Gusman MD [address] [place] [phone] 07/19/2026 11:40 AM EDT Office Visit [facility] [address] [place] [address] Yesi Perez MD [address] [place] [address] documented as of this encounter Procedures Procedure Name Priority Date/Time Associated Diagnosis Comments ECG 12-LEAD Today 08/11/2024 12:53 PM EDT documented in this encounter Results * ECG (08/11/2024 12:53 PM EDT) No Provider Available Scan ECG ORDERABLES Final Result documented in this encounter Visit Diagnoses Not on filedocumented in this encounter Additional Health Concerns Infection Onset Date Last Indicated Resolved Time C difficile Rule-Out 11/01/2024 11/02/2024 024 9:43 AM EST Assessment Noted Time PHQ-9 Depression Total Score: 6 04/28/20 24 1:53 PM EDT documented as of this encounter Care Teams Auditor/Quality Relationship Specialty Start Date End Date Ilya Gusman MD [address] [place] [phone] PCP - General 05/14/17 [facility] 09/01/25 documented as of this encounter
--- OUTSIDE RECORDS SUMMARY | 2025-09-23 21:02 | XMS_ITS | Encounter Summary ---
Author Organization [facility] Address [address] [place] [address] Phone Care Team Providers Care Chemical Processing Supervisor Name Role Phone Ilya Gusman MD Primary Care Provider [phone] Encounter Details Date Type Department Care Team (Late st Contact Info) Description 02/11/2022 Orders Only [facility] [address] [place] [address] [address] [place] [phone] Trisha Naidu [place] Social History Tobacco Use Types Packs/Day [...] suspected to have Coronavirus/COVID-19? No / Unsure 02/12/2022 8:42 AM EDT documented as of this encounter Plan of Treatment Upcoming Encounters Date Type Department Care Team (Late st Contact Info) Description 10/06/2025 10:45 AM EST Office Visit [facility] - Internal Medicine [address] [place] [phone] Ilya Gusman MD [address] [place] [phone] Christophe Dailey MD [address] [place] [phone] 01/18/2026 1:00 PM EST Office Visit [facility] [address] [address] Porsha Marsh CNP 70 [place] [address] 02/22/2026 11:00 AM EDT Office Visit [facility] [address] [place] [address] [address] [place] [phone] Alonso Bae MD [address] [place] [address] [address] [place] [address] 07/17/2026 2:00 PM EDT Office Visit [facility] - Internal Medicine [address] [place] [phone] Ilya Gusman MD [address] [place] [phone] 07/19/2026 11:40 AM EDT Office Visit [facility] [address] [address] Yesi Perez MD 70 [place] [address] documented as of this encounter Visit Diagnoses [...] as of this encounter Care Teams Chemical Processing Supervisor Relationship Specialty Start Date End Date Ilya Gusman MD [address] [place] [phone] PCP - General 05/14/17 [facility] 09/01/25 documented as of this encounter
--- OUTSIDE RECORDS SUMMARY | 2025-09-23 21:02 | XMS_ITS | Encounter Summary ---
Author Organization [facility] ystem Address [address] [place] [address] Phone Care Team Providers Care Director Of Corporate Real Estate Name Role Phone Ilya Gusman MD Primary Care Provider [phone] Encounter Details Date Type Department Care Team (Late st Contact Info) Description 07/17/2022 Scanned Document [facility] - Health Information Department [address] [place], [place] [phone] Scan, No Provider Available [address] [facility] [place] [address] <No scans attached> Social History Tobacco Use [...] suspected to have Coronavirus/COVID-19? No / Unsure 07/15/2022 10:28 AM EDT documented as of this encounter Plan of Treatment Upcoming Encounters Date Type Department Care Team (Late st Contact Info) Description 10/06/2025 10:45 AM EST Office Visit [facility] - Internal Medicine [address] [place] [phone] Ilya Gusman MD [address] [place] [phone] Christophe Dailey MD [address] [place] [phone] 01/18/2026 1:00 PM EST Office Visit [facility] [address] [place] [address] Porsha Marsh, LEAD TECHNICIAN [address] [place] [address] 02/22/2026 11:00 AM EDT Office Visit [facility] [address] [place] [address] [address] [place] [phone] Alonso Bae MD [address] [place] [address] [address] [place] [address] 07/17/2026 2:00 PM EDT Office Visit [facility] - Internal Medicine [address] [place] [phone] Ilya Gusman MD [address] [place] [phone] 07/19/2026 11:40 AM EDT Office Visit [facility] [address] [place] [address] Yesi Perez MD [address] [place] [address] documented as of this encounter Visit Diagnoses [...] of this encounter Care Teams Director Of Corporate Real Estate Relationship Specialty Start Date End Date Ilya Gusman MD [address] [place] [phone] PCP - General 05/14/17 [facility] 09/01/25 documented as of this encounter
--- OUTSIDE RECORDS SUMMARY | 2025-09-23 21:02 | XMS_ITS | Encounter Summary ---
Author Organization [facility] Address [address] [place] [address] Phone Care Team Providers Care Laboratory Miller Name Role Phone Ilya Gusman MD Primary Care Provider [phone] Reason for Visit * Reason Onset Date Comments Med Refill 11/08/2018 Med Refill 11/10/2018 Encounter Details Date Type Department Care Team ([facility] Contact Info) Description 11/08/2018 Refill [facility] - Internal Medicine [address] [place] [phone] Ilya Gusman MD [address] [place] [phone] Med Refill; Med Refill Social History [...] [facility] - Internal Medicine [address] [place] [phone] Ilya Gusman MD [address] [place] [address] [phone] Christophe Dailey MD [address] [place] [phone] 01/18/2026 1:00 PM EST Office Visit [facility] [address] [address] Porsha Marsh CNP 70 [place] [address] 02/22/2026 11:00 AM EDT Office Visit [facility] [address] [place] [address] [address] [place] [phone] Alonso Bae MD [address] [place] [address] [address] [place] [address] 07/17/2026 2:00 PM EDT Office Visit [facility] - Internal Medicine [address] [place] [phone] Ilya Gusman MD [address] [place] [phone] 07/19/2026 11:40 AM EDT Office Visit [facility] [address] [address] Yesi Perez MD 70 [place] [address] documented as of this encounter Visit Diagnoses [...] documented as of this encounter Care Teams Laboratory Miller Relationship Specialty Start Date End Date Ilya Gusman MD [address] [place] [phone] PCP - General 05/14/17 [facility] 09/01/25 documented as of this encounter
--- OUTSIDE RECORDS SUMMARY | 2025-09-23 21:03 | XMS_ITS | Encounter Summary ---
Author Organization [facility] Address [address] [place] [address] Phone Care Team Providers Care Program Schedule Clerk Name Role Phone Ilya Gusman MD Primary Care Provider [phone] Encounter Details Date Type Department Care Team (Late st Contact Info) Description 01/18/2022 Scanned Document [facility] - Health Information Department [address] [place], [place] [phone] Scan, No Provider Available [address] [facility] [place] [address] <No scans attached> Social History Tobacco Use [...] suspected to have Coronavirus/COVID-19? No / Unsure 01/17/2022 3:50 PM EST documented as of this encounter Plan of Treatment Upcoming Encounters Date Type Department Care Team (Late st Contact Info) Description 10/06/2025 10:45 AM EST Office Visit [facility] - Internal Medicine [address] [place] [phone] Ilya Gusman MD [address] [place] [phone] Christophe Dailey MD [address] [place] [phone] 01/18/2026 1:00 PM EST Office Visit [facility] [address] [place] [address] Porsha Marsh, PUMP SERVICER HELPER [address] [place] [address] 02/22/2026 11:00 AM EDT Office Visit [facility] [address] [place] [address] [address] [place] [phone] Alonso Bae MD [address] [place] [address] [address] [place] [address] 07/17/2026 2:00 PM EDT Office Visit [facility] - Internal Medicine [address] [place] [phone] Ilya Gusman MD [address] [place] [phone] 07/19/2026 11:40 AM EDT Office Visit [facility] [address] [place] [address] Yesi Perez MD [address] [place] [address] documented as of this encounter Visit Diagnoses [...] documented as of this encounter Care Teams Program Schedule Clerk Relationship Specialty Start Date End Date Ilya Gusman MD [address] [place] [phone] PCP - General 05/14/17 [facility] 09/01/25 documented as of this encounter
--- OUTSIDE RECORDS SUMMARY | 2025-09-23 21:03 | XMS_ITS | Encounter Summary ---
Author Organization [facility] Address [address] [place] [address] Phone Care Team Providers Care Travel Freight And Passenger Agent Name Role Phone Ilya Gusman MD Primary Care Provider [phone] Reason for Visit * Reason Onset Date Comments Med Refill 01/28/2022 Encounter Details Date Type Department Care Team (Late st Contact Info) Description 01/28/2022 Refill [facility] - Internal Medicine [address] [place] [phone] Ilya Gusman MD [address] [place] [phone] Med Refill Social History Tobacco Use [...] Visit [facility] - Internal Medicine [address] [place] [phone] Ilya Gusman MD [address] [place] [phone] Christophe Dailey MD [address] [place] [phone] 01/18/2026 1:00 PM EST Office Visit [facility] 70 [facility] [address] [place] [address] Porsha Marsh, WATCH SUPERVISOR [address] [place] [address] 02/22/2026 11:00 AM EDT Office Visit [facility] [address] [place] [phone] Alonso Bae MD [facility] [address] [place] [address] [place] [address] 07/17/2026 2:00 PM EDT Office Visit [facility] - Internal Medicine [address] [place] [phone] Ilya Gusman MD [address] [place] [phone] 07/19/2026 11:40 AM EDT Office Visit [facility] [address] [address] Yesi Perez MD 70 [place] [address] documented as of this encounter Visit Diagnoses [...] Date End Date Ilya Gusman MD [address] [place] [phone] PCP - General 05/14/17 [facility] 09/01/25 documented as of this encounter
--- OUTSIDE RECORDS SUMMARY | 2025-09-23 21:03 | XMS_ITS | Encounter Summary ---
Author Organization [facility] Address [address] [place] [address] Phone Care Team Providers Care Rig Hand Name Role Phone Ilya Gusman MD Primary Care Provider [phone] Reason for Visit * Reason Comments Med Refill Encounter Details Date Type Department Care Team (Late Contact Info) Description 01/28/2025 Refill [facility] - Internal Medicine [address] [place] [address] [phone] Ilya Gusman MD [address] [place] [phone] Med Refill Social History Tobacco Use [...] encounter Miscellaneous Notes * Telephone Encounter - Hever Hackett PhT - 01/30/2025 6:17 AM EDT Pharm requesting, not on current med list. Please advise. Ian William documented in this encounter Plan of Treatment Upcoming Encounters Date Type Department Care Team (Late st Contact Info) Description 10/06/2025 10:45 AM EST Office Visit [facility] - Internal Medicine [address] [place] [phone] Ilya Gusman MD [address] [place] [phone] Christophe Dailey MD [address] [place] [phone] 01/18/2026 1:00 PM EST Office Visit [facility] [address] [place] [address] Porsha Marsh, VP [address] [place] [address] 02/22/2026 11:00 AM EDT Office Visit [facility] [address] [place] [address] [address] [place] [phone] Alonso Bae MD [address] [place] [address] [address] [place] [address] 07/17/2026 2:00 PM EDT Office Visit [facility] - Internal Medicine [address] [place] [phone] Ilya Gusman MD [address] [place] [phone] 07/19/2026 11:40 AM EDT Office Visit [facility] [address] [address] eYsi Perez MD 70 [place] [address] documented as of this encounter Visit Diagnoses Not on filedocumented in this encounter Additional Health Concerns Assessment Noted Time PHQ-9 Depression Total Score: 6 04/28/20 24 1:53 PM EDT documented as of this encounter Care Teams Rig Hand Relationship Specialty Start Date End Date Ilya Gusman MD [address] [place] [phone] PCP - General 05/14/17 [facility] 09/01/25 documented as of this encounter
--- OUTSIDE RECORDS SUMMARY | 2025-09-23 21:03 | XMS_ITS | Encounter Summary ---
Author Organization [facility] ystem Address [address] [place] [address] Phone Care Team Providers Care Tower Director Name Role Phone Ilya Gusman MD Primary Care Provider [phone] Encounter Details Date Type Department Care Team (Late st Contact Info) Description 02/14/2022 Scanned Document [facility] - Health Information Department [address] [place], [place] [phone] Scan, No Provider Available [address] [place] [address] <No scans attached> Social History Tobacco Use [...] [facility] - Internal Medicine [address] [place] [phone] Ilya Gusman MD [address] [place] [phone] Christophe Dailey MD [address] [place] [phone] 01/18/2026 1:00 PM EST Office Visit [facility] [address] [place] [address] Porsha Marsh, LADLE WATCHER [address] [place] [address] 02/22/2026 11:00 AM EDT Office Visit [facility] [address] [place] [address] [address] [place] [phone] Alonso Bae MD [address] [place] [address] [address] [place] [address] 07/17/2026 2:00 PM EDT Office Visit [facility] - Internal Medicine [address] [place] [phone] Ilya Gusman MD [address] [place] [phone] 07/19/2026 11:40 AM EDT Office Visit [facility] [address] [place] [address] Yesi Perez MD [address] [place] [address] documented as of this encounter Visit Diagnoses [...] documented as of this encounter Care Teams Tower Director Relationship Specialty Start Date End Date Ilya Gusman MD [address] [place] [phone] PCP - General 05/14/17 [facility] 09/01/25 documented as of this encounter
--- OUTSIDE RECORDS SUMMARY | 2025-09-23 21:03 | XMS_ITS | Encounter Summary ---
Author Organization [facility]stem Address [address] [place] [address] Phone Care Team Providers Care Chute Loader Name Role Phone Ilya Gusman MD Primary Care Provider [phone] Encounter Details Date Type Department Care Team (Late Contact Info) Description 12/19/2024 Scanned Document [facility] - Health Information Department [address] [place] [address] Scan, No Provider Available [address] [place] [address] [place] [address] <No scans attached> Social History Tobacco Use [...] Type Department Care Team ([facility] Contact Info) Description 10/06/2025 10:45 AM EST Office Visit [facility] - Internal Medicine [address] [place] [phone] Ilya Gusman MD [address] [place] [phone] Christophe Dailey MD [address] [place] [phone] 01/18/2026 1:00 PM EST Office Visit [facility] [address] [place] [address] Porsha Marsh, GENERAL I FARMWORKER [address] [place] [address] 02/22/2026 11:00 AM EDT Office Visit [facility] [address] [place] [address] [address] [place] [phone] Alonso Bae MD [address] [place] [address] [address] [place] [address] 07/17/2026 2:00 PM EDT Office Visit [facility] - Internal Medicine [address] [place] [phone] Ilya Gusman MD [address] [place] [phone] 07/19/2026 11:40 AM EDT Office Visit [facility] [address] [place] [address] Yesi Perez MD [address] [place] [address] documented as of this encounter Visit Diagnoses Not on filedocumented in this encounter Additional Health Concerns Assessment Noted Time PHQ-9 Depression Total Score: 6 04/28/20 24 1:53 PM EDT documented as of this encounter Care Teams Chute Loader Relationship Specialty Start Date End Date Ilya Gusman MD [address] [place] [phone] PCP - General 05/14/17 [facility] 09/01/25 documented as of this encounter
--- OUTSIDE RECORDS SUMMARY | 2025-09-23 21:03 | XMS_ITS | Encounter Summary ---
[facility] Organization [facility] Address [address] [place] [address] Phone Care Team Providers Care Motor And Generator Brush Maker Name Role Phone Ilya Gusman MD Primary Care Provider [phone] Reason for Visit * Reason Comments Med Refill Encounter Details Date Type Department Care Team (Late Contact Info) Description 01/27/2025 Refill [facility] - Internal Medicine [address] [place] [address] [phone] Ilya Gusman MD [address] [place] [phone] Med Refill Social History Tobacco Use [...] Telephone Encounter - Ilya Gusman MD - 01/27/2025 5:55 PM EST Will clarify c pt on upcoming OV next week. * Telephone Encounter - Kristina Schneider, PhT - 01/27/2025 10:28 AM EST Pharmacist calling for the following refills. None are pending Gabapentin last written 07/09/24 for 90 w/ 2 Omeprazole last written 11/04/24 for 90 w/ 1 change of pharm Requesting Lisinopril. Pharm states he has been filling this regularly for pt. However, chart review shows it was d/c by PhT on 10/31/24. Re:Pt no longer taking This is not pending. Please advise if Pt is to continue. Last OV: 10/06/24 Future Appointments Date Time Provider Department Center 02/04/2025 10:00 AM Ilya Gusman MD [facility] IM [facility] 02/08/2025 2:00 PM Valentine Swartz, RUBBER GOODS REPAIRER [facility] SS Card [facility] 02/09/2025 10:00 AM WEY HOLTER [facility] SS Card [facility] 02/22/2025 9:45 AM Alonso Bae MD WEY URO WEY 07/14/2025 2:00 PM Yesi Perez MD [facility] SS Card Wey Last BMP Results: Lab Results Component Value Date GLUCOSE 105 (H) 11/04/2024 CALCIUM 8.6 11/04/2024 NA 142 11/04/2024 K 3.9 11/04/2024 CO2 23 (L) 11/04/2024 CL 108 11/04/2024 BUN 8 11/04/2024 CREAT 1.1 11/04/2024 BP Readings from Last 5 Encounters: 12/08/24 130/78 11/04/24 148/79 10/06/24 (!) 160/88 07/10/24 136/78 07/09/24 138/76 Kristina Schneider Refill Specialist documented in this encounter Plan of Treatment Upcoming Encounters Date Type Department Care Team (Late st Contact Info) Description 10/06/2025 10:45 AM EST Office Visit [facility] - Internal Medicine [address] [place] [phone] Ilya Gusman MD [address] [place] [phone] Christophe Dailey MD [address] [place] [phone] 01/18/2026 1:00 PM EST Office Visit [facility] [address] [place] [address] Porsha Marsh CNP [address] [place] [address] 02/22/2026 11:00 AM EDT Office Visit [facility] [address] [place] [address] [address] [place] [phone] Alonso Bae MD [address] [place] [address] [address] [place] [address] 07/17/2026 2:00 PM EDT Office Visit [facility] - Internal Medicine [address] [place] [phone] Ilya Gusman MD [address] [place] [address] [phone] 07/19/2026 11:40 AM EDT Office Visit [facility] [address] [place] [address] Yesi Perez MD [address] [place] [address] documented as of this encounter Visit Diagnoses Not on filedocumented in this encounter Additional Health Concerns Assessment Noted Time PHQ-9 Depression Total Score: 6 04/28/20 24 1:53 PM EDT documented as of this encounter Care Teams Motor And Generator Brush Maker Relationship Specialty Start Date End Date Ilya Gusman MD [address] [place] [address] [phone] PCP - General 05/14/17 [facility] 09/01/25 documented as of this encounter
--- OUTSIDE RECORDS SUMMARY | 2025-09-23 21:03 | XMS_ITS | Encounter Summary ---
Author Organization [facility] Address [address] [place] [address] Phone Care Team Providers Care Market Reporter Name Role Phone Ilya Gusman MD Primary Care Provider [phone] Encounter Details Date Type Department Care Team (Late st Contact Info) Description 01/24/2022 Orders Only [facility] [address] [place] [phone] Alonso Bae MD [address] [place] [address] Elevated PSA Social History Tobacco Use Types Packs/Day Years [...] 10:45 AM EST Office Visit [facility] - Internal Medicine [address] [place] [phone] Ilya Gusman MD [address] [place] [phone] Christophe Dailey MD [address] [place] [phone] 01/18/2026 1:00 PM EST Office Visit [facility] [address] [place] [address] Porsha Marsh, LOCKER ROOM ATTENDANT [address] [place] [address] 02/22/2026 11:00 AM EDT Office Visit [facility] [address] [place] [address] [address] [place] [phone] Alonso Bae MD [address] [place] [address] [address] [place] [address] 07/17/2026 2:00 PM EDT Office Visit [facility] - Internal Medicine [address] [place] [phone] Ilya Gusman MD [address] [place] [phone] 07/19/2026 11:40 AM EDT Office Visit [facility] [address] [place] [address] Yesi Perez MD [address] [place] [address] documented as of this encounter Procedures Procedure Name Priority Date/Time Associated Diagnosis Comments MRI PROSTATE W WO CONTRAST Routine 01/24/2022 4:07 PM EST Elevated PSA documented in this encounter Results * MRI prostate with and without contrast - [facility] - External (01/24/2022 4:07 PM EST) Anatomical Region Laterality Modality Body Magnetic Resonan ce Alonso Bae MD [facility] MRI PROCEDURES Final Result documented in this encounter Visit Diagnoses Diagnosis Elevated PSA Elevated prostate specific antigen (PSA) documented in this encounter Additional Health Concerns [...] documented as of this encounter Care Teams Market Reporter Relationship Specialty Start Date End Date Ilya Gusman MD [address] [place] [phone] PCP - General 05/14/17 [facility] 09/01/25 documented as of this encounter
--- OUTSIDE RECORDS SUMMARY | 2025-09-23 21:03 | XMS_ITS | Encounter Summary ---
Author Organization [facility] Address [address] [place] [address] Phone Care Team Providers Care Economic Adviser Name Role Phone Ilya Gusman MD Primary Care Provider [phone] Encounter Details Date Type Department Care Team (Late Contact Info) Description 01/09/2022 Orders Only [facility] - Health Information Department [address] [place] [address] Scan, No Provider Available [address] [facility] [place] [address] Social History Tobacco Use Types Packs/Day Years [...] Office Visit [facility] - Internal Medicine [address] [place] [address] [phone] Ilya Gusman MD [address] [place] [phone] Christophe Dailey MD [address] [place] [phone] 01/18/2026 1:00 PM EST Office Visit [facility] [address] [place] [address] Porsha Marsh, MARILIA [address] [place] [address] 02/22/2026 11:00 AM EDT Office Visit [facility] [address] [place] [address] [address] [place] [phone] Alonso Bae MD [address] [place] [address] [address] [place] [address] 07/17/2026 2:00 PM EDT Office Visit [facility] - Internal Medicine [address] [place] [phone] Ilya Gusman MD [address] [place] [phone] 07/19/2026 11:40 AM EDT Office Visit [facility] [address] [place] [address] Yesi Perez MD [address] [place] [address] documented as of this encounter Procedures Procedure Name Priority Date/Time Associated Diagnosis Comments COVID-19 (EXTERNAL) Routine 01/05/2022 MR INO COX Routine 01/05/2022 XR CHEST 1 VW Routine 01/05/2022 ECG 12-LEAD Today 01/05/2022 documented in this encounter Results * MR Ino cox (01/05/2022) us No Provider Available Scan LAB BLOOD ORDERABLES Final Result * COVID-19 (External) (01/05/2022) External COVID-19 Negative Not Detected, Negative, Non-reacti ve ACC: [facility] Nasopharyngeal (Nasopharynx) Historical Provider MD LAB MICROBIOLOGY - GENERA L ORDERABLES Final Result ACC: [address] [address], [place] [phone] * X-ray chest 1 view (01/05/2022) Anatomical Region Laterality Modality Body Radiographic Carmelina ging us No Provider Available Scan IMG XR PROCEDURES Fin al Result * ECG (01/05/2022) us No Provider Available Scan ECG ORDERABLES [...] documented as of this encounter Care Teams Economic Adviser Relationship Specialty Start Date End Date Ilya Gusman MD [address] [place] [phone] PCP - General 05/14/17 [facility] 09/01/25 documented as of this encounter
--- OUTSIDE RECORDS SUMMARY | 2025-09-23 21:03 | XMS_ITS | Encounter Summary ---
Author Organization [facility] Address [address] [place] [address] Phone Care Team Providers Care Analytical Clerk Name Role Phone Ilya Gusman MD Primary Care Provider [phone] Reason for Visit * Reason Onset Date Comments Med Refill 01/11/2025 Encounter Details Date Type Department Care Team (Late st Contact Info) Description 01/11/2025 Refill [facility] - Internal Medicine [address] [place] [address] [phone] Christophe Gil MD [address] [place] [phone] Med Refill Social History Tobacco Use [...] Telephone Encounter - Patricia Gallegos MA - 01/13/2025 1:40 PM EST Pt looking for med told him has refill of 01/[address] gil fills [address] dr madelyn Villanueva, refill specialist * Telephone Encounter - Sarahy Henderson PhT - 01/12/2025 10:55 AM EST Dilaudid Pharmacy: DATE OF LAST REFILL? 12/31 FREQUENCY OF REFILLS? 14 days DATE REFILL IS DUE? 01/14 IS THIS AN EARLY REFILL? No Last Urine Drug Screen date: 08/06/2021 Last Opioid Treatment Agreement date: 09/25/2018 DATE OF LAST OFFICE VISIT: 10/06/24 DATE OF NEXT OFFICE VISIT: Future Appointments Date Time Provider Department Center 02/08/2025 2:00 PM Valentine Swartz CNP [facility] SS Card We 02/09/2025 10:00 AM PAOLA WOLFE [facility] C[facility]IO SS Card Wey 02/22/2025 9:45 AM Alonso Bae MD WEY URO WEJose Daniel 07/14/2025 2:00 PM Yesi Perez MD WEY CARDIO SS Card Wejose daniel FISHING VESSEL OPERATOR reviewed on 01/12/2025 by Ian PICKETT and no red flags were noted Ian Pierson REFILL SPECIALIST documented in this encounter Plan of Treatment Upcoming Encounters Date Type Department Care Team (Late st Contact Info) Description 10/06/2025 10:45 AM EST Office Visit [facility] - Internal Medicine [address] [place] [phone] Ilya Gusman MD [address] [place] [address] [phone] Christophe Gil MD [address] [place] [address] [phone] 01/18/2026 1:00 PM EST Office Visit [facility] [address] [facility] 1 [place] [address] Maximo GraceMarieJany, CARTON FILLER 70 [place] [address] 02/22/2026 11:00 AM EDT Office Visit [facility] [address] [place] [address] Alonso Bae MD [address] [facility] [address] [place] [address] 07/17/2026 2:00 PM EDT Office Visit [facility] - Internal Medicine [address] [place] [address] [phone] Ilya Gusman MD [address] [place] [address] [phone] 07/19/2026 11:40 AM EDT Office Visit [facility] [address] [place] [address] Yesi Perez MD [address] [place] [address] documented as of this encounter Visit Diagnoses Not on filedocumented in this encounter Additional Health Concerns Assessment Noted Time PHQ-9 Depression Total Score: 6 04/28/20 24 1:53 PM EDT documented as of this encounter Care Teams Analytical Clerk Relationship Specialty Start Date End Date Ilya Gusman MD [address] [place] [address] [phone] PCP - General 05/14/17 [facility] 09/01/25 documented as of this encounter
--- OUTSIDE RECORDS SUMMARY | 2025-09-23 21:03 | XMS_ITS | Encounter Summary ---
Author Organization [facility] Address [address] [place] [address] Phone Care Team Providers Care Golf Cart Repairer Name Role Phone Ilya Gusman MD Primary Care Provider [phone] Encounter Details Date Type Department Care Team (Late Contact Info) Description 01/10/2022 Scanned Document [facility] - Health Information Department [address] [place], [place] [id number] Scan, No Provider Available [address] [place] [address] [place] [address] <No scans attached> Social History Tobacco Use [...] Visit [facility] - Internal Medicine [address] [place] [phone] Ilya Gusman MD [address] [place] [phone] Christophe Dailey MD [address] [place] [phone] 01/18/2026 1:00 PM EST Office Visit [facility] [address] [place] [address] Porsha Marsh, MARILIA [address] [place] [address] 02/22/2026 11:00 AM EDT Office Visit [facility] [address] [place] [address] [address] [place] [phone] Alonso Bae MD [address] [place] [address] [address] [place] [address] 07/17/2026 2:00 PM EDT Office Visit [facility] - Internal Medicine [address] [place] [phone] Ilya Gusman MD [address] [place] [phone] 07/19/2026 11:40 AM EDT Office Visit [facility] [address] [place] [address] Yesi Perez MD [address] [place] [address] documented as of this encounter Visit Diagnoses Not on filedocumented in this encounter Additional Health Concerns Infection Onset Date Last Indicated Resolved Time Covid Possible 05/24/2022 05/24/202205/2405/24/2022 4: 21 PM [...] as of this encounter Care Teams Golf Cart Repairer Relationship Specialty Start Date End Date Ilya Gusman MD [address] [place] [phone] PCP - General 05/14/17 [facility] 09/01/25 documented as of this encounter
--- OUTSIDE RECORDS SUMMARY | 2025-09-23 21:03 | XMS_ITS | Encounter Summary ---
Author Organization [facility] Address [address] [place] [address] Phone Care Team Providers Care 2 Year Olds Preschool Teacher Name Role Phone Ilya Gusman MD Primary Care Provider [phone] Encounter Details Date Type Department Care Team (Late Contact Info) Description 01/06/2022 Scanned Document [facility] - Health Information Department [address] [place], [place] [phone] Scan, No Provider Available [address] [place] [address] [place] [address] <No scans attached> Social History Tobacco Use [...] [facility] - Internal Medicine [address] [place] [phone] Ilya Gusman MD [address] [place] [phone] Christophe Dailey MD [address] [place] [phone] 01/18/2026 1:00 PM EST Office Visit [facility] [address] [place] [address] Porsha Marsh, MARILIA [address] [place] [address] 02/22/2026 11:00 AM EDT Office Visit [facility] [address] [place] [address] [address] [place] [phone] Alonso Bae MD [address] [place] [address] [address] [place] [address] 07/17/2026 2:00 PM EDT Office Visit [facility] - Internal Medicine [address] [place] [phone] Ilya Gusman MD [address] [place] [phone] 07/19/2026 11:40 AM EDT Office Visit [facility] [address] [place] [address] Yesi Perez MD [address] [place] [address] documented as of this encounter Visit Diagnoses [...] documented as of this encounter Care Teams 4 Year Olds Preschool Teacher Relationship Specialty Start Date End Date Ilya Gusman MD [address] [place] [phone] PCP - General 05/14/17 [facility] 09/01/25 documented as of this encounter
--- OUTSIDE RECORDS SUMMARY | 2025-09-23 21:03 | XMS_ITS | Encounter Summary ---
Author Organization [facility] Address [address] [place] [address] Phone Care Team Providers Care Bottom Painter Name Role Phone Ilya Gusman MD Primary Care Provider [phone] Encounter Details Date Type Department Care Team (Late Contact Info) Description 01/05/[address] [facility] - Health Information Department [address] [place], [place] [phone] Scan, No Provider Available [address] [place] [address] [place] [address] <No scans attached> Social History Tobacco Use [...] Visit [facility] - Internal Medicine [address] [place] [phone] Ilya Gusman MD [address] [place] [phone] Christophe Dailey MD [address] [place] [phone] 01/18/2026 1:00 PM EST Office Visit [facility] [address] [place] [address] Porsha Marsh, MARILIA [address] [place] [address] 02/22/2026 11:00 AM EDT Office Visit [facility] [address] [place] [address] [address] [place] [phone] Alonso Bae MD [address] [place] [address] [address] [place] [address] 07/17/2026 2:00 PM EDT Office Visit [facility] - Internal Medicine [address] [place] [phone] Ilya Gusman MD [address] [place] [phone] 07/19/2026 11:40 AM EDT Office Visit [facility] [address] [place] [address] Yesi Perez MD [address] [place] [address] documented as of this encounter Visit Diagnoses [...] documented as of this encounter Care Teams Bottom Painter Relationship Specialty Start Date End Date Ilya Gusman MD [address] [place] [phone] PCP - General 05/14/17 [facility] 09/01/25 documented as of this encounter
--- OUTSIDE RECORDS SUMMARY | 2025-09-23 21:03 | XMS_ITS | Encounter Summary ---
Author [facility] Address [address] [place] [address] Phone Care Team Providers Care Truck Caterer Name Role Phone Ilya Gusman MD Primary Care Provider [phone] Reason for Visit * Reason Comments Med Refill Encounter Details Date Type Department Care Team (Late Contact Info) Description 02/15/2025 Refill [facility] - Internal Medicine [address] [place] [address] [phone] Christophe Dailey MD [address] [place] [phone] Med Refill Social History Tobacco Use [...] Telephone Encounter - Ember Martinez PhT - 02/16/2025 9:17 AM EDT documented in this encounter Plan of Treatment Upcoming Encounters Date Type Department Care Team (Late st Contact Info) Description 10/06/2025 10:45 AM EST Office Visit [facility] - Internal Medicine [address] [place] [phone] Ilya Gusman MD [address] [place] [phone] Christophe Dailey MD [address] [place] [phone] 01/18/2026 1:00 PM EST Office Visit [facility] [address] [place] [address] Porsha Marsh, RELIGIOUS EDUCATION TEACHER 70 [place] [address] 02/22/2026 11:00 AM EDT Office Visit [facility] [address] [place] [address] [address] [place] [phone] Alonso Bae MD [address] [place] [address] [address] [place] [address] 07/17/2026 2:00 PM EDT Office Visit [facility] - Internal Medicine [address] [place] [phone] Ilya Gusamn MD [address] [place] [phone] 07/19/2026 11:40 AM EDT Office Visit [facility] [address] [place] [address] Yesi Perez MD [address] [place] [address] documented as of this encounter Visit Diagnoses Not on filedocumented in this encounter Additional Health Concerns Assessment Noted Time PHQ-9 Depression Total Score: 6 04/28/20 24 1:53 PM EDT documented as of this encounter Care Teams Truck Caterer Relationship Specialty Start Date End Date Ilya Gusman MD [address] [place] [phone] PCP - General 05/14/17 [facility] 09/01/25 documented as of this encounter
--- OUTSIDE RECORDS SUMMARY | 2025-09-23 21:03 | XMS_ITS | Encounter Summary ---
Author Organization [facility] Address [address] [place] [address] Phone Care Team Providers Care Bondactor Machine Operator Name Role Phone Ilya Gusman MD Primary Care Provider [phone] Reason for Visit * Reason Comments Med Refill Encounter Details Date Type Department Care Team (Late Contact Info) Description 01/19/2025 Refill [facility] - Internal Medicine [address] [place] [phone] Ilya Gusman MD [address] [place] [phone] Med Refill Social History Tobacco Use [...] [facility] - Internal Medicine [address] [place] [phone] Ilya Gusman MD [address] [place] [phone] Christophe Dailey MD [address] [place] [phone] 01/18/2026 1:00 PM EST Office Visit [facility] [address] [place] [address] Porsha Marsh, MARILIA [address] [place] [address] 02/22/2026 11:00 AM EDT Office Visit [facility] [address] [place] [address] [address] [place] [phone] Alonso Bae MD [address] [place] [address] [address] [place] [address] 07/17/2026 2:00 PM EDT Office Visit [facility] - Internal Medicine [address] [place] [address] [phone] Ilya Gusman MD [address] [place] [phone] 07/19/2026 11:40 AM EDT Office Visit [facility] [address] [place] [address] Yesi Perez MD [address] [place] [address] documented as of this encounter Visit Diagnoses Not on filedocumented in this encounter Additional Health Concerns Assessment Noted Time PHQ-9 Depression Total Score: 6 04/28/20 24 1:53 PM EDT documented as of this encounter Care Teams Bondactor Machine Operator Relationship Specialty Start Date End Date Ilya Gusman MD [address] [place] [phone] PCP - General 05/14/17 [facility] 09/01/25 documented as of this encounter
--- OUTSIDE RECORDS SUMMARY | 2025-09-23 21:03 | XMS_ITS | Encounter Summary ---
Author Organization [facility] ystem Address [address] [place] [address] Phone Care Team Providers Care Turning Machine Operator Name Role Phone Ilya Gusman MD Primary Care Provider [phone] Encounter Details Date Type Department Care Team (Late st Contact Info) Description 03/04/2022 Scanned Document [facility] - Health Information Department [address] [place], [place] [phone] Scan, No Provider Available [address] [facility] [address] <No scans attached> Social History Tobacco Use [...] Visit [facility] - Internal Medicine [address] [place] [phone] Ilya Gusman MD [address] [place] [phone] Christophe Dailey MD [address] [place] [phone] 01/18/2026 1:00 PM EST Office Visit [facility] [address] [place] [address] Porsha Marsh, SUPERVISOR LENS GENERATING [address] [place] [address] 02/22/2026 11:00 AM EDT Office Visit [facility] [address] [place] [address] [address] [place] [phone] Alonso Bae MD [address] [place] [address] [address] [place] [address] 07/17/2026 2:00 PM EDT Office Visit [facility] - Internal Medicine [address] [place] [phone] Ilya Gusman MD [address] [place] [phone] 07/19/2026 11:40 AM EDT Office Visit [facility] [address] [place] [address] Yesi Perez MD [address] [place] [address] documented as of this encounter Visit Diagnoses [...] documented as of this encounter Care Teams Turning Machine Operator Relationship Specialty Start Date End Date Ilya Gusman MD [address] [place] [phone] PCP - General 05/14/17 [facility] 09/01/25 documented as of this encounter
--- OUTSIDE RECORDS SUMMARY | 2025-09-23 21:03 | XMS_ITS | Encounter Summary ---
Author Organization [facility] ystem Address [address] [place] [address] Phone Care Team Providers Care Research Project Coordinator Name Role Phone Ilya Gusman MD Primary Care Provider [phone] Encounter Details Date Type Department Care Team (Late Contact Info) Description 02/10/2025 Scanned Document [facility] - Health Information Department [address] [place] [phone] Scan, No Provider Available [address] [place] [address] [place] [address] <No scans attached> Social History Tobacco Use [...] Upcoming Encounters Date Type Department Care Team ([facility] Contact Info) Description 10/06/2025 10:45 AM EST Office Visit [facility] - Internal Medicine [address] [place] [phone] Ilya Gusman MD [address] [place] [phone] Christophe Dailey MD [address] [place] [phone] 01/18/2026 1:00 PM EST Office Visit [facility] [address] [place] [phone] Porsha Marsh, BELT LINE FEEDER [address] [place] [phone] 02/22/2026 11:00 AM EDT Office Visit [facility] [address] [place] [address] [address] [place] [phone] Alonso Bae MD [address] [place] [address] [address] [place] [address] 07/17/2026 2:00 PM EDT Office Visit [facility] - Internal Medicine [address] [place] [phone] Ilya Gusman MD [address] [place] [phone] 07/19/2026 11:40 AM EDT Office Visit [facility] [address] [place] [phone] Yesi Perez MD [address] [place] [phone] documented as of this encounter Visit Diagnoses Not on filedocumented in this encounter Additional Health Concerns Assessment Noted Time PHQ-9 Depression Total Score: 6 04/28/20 24 1:53 PM EDT documented as of this encounter Care Teams Research Project Coordinator Relationship Specialty Start Date End Date Ilya Gusman MD [address] [place] [phone] PCP - General 05/14/17 [facility] 09/01/25 documented as of this encounter
--- OUTSIDE RECORDS SUMMARY | 2025-09-23 21:03 | XMS_ITS | Encounter Summary ---
Author Organization [facility] Address [address] [place] [address] Phone Care Team Providers Care Drilling Engineer Name Role Phone Ilya Gusman MD Primary Care Provider [phone] Reason for Visit * Reason Onset Date Comments Med Refill 01/01/2022 Med Refill 01/03/2022 Encounter Details Date Type Department Care Team (Late st Contact Info) Description 01/01/2022 Refill [facility] - Internal Medicine [address] [place] [phone] Christophe Dailey MD [address] [place] [phone] Med Refill; Med Refill Social History [...] Telephone Encounter - Christophe Dailey MD - 01/03/2022 11:12 AM EST Script sent * Telephone Encounter - Kristina Schneider PhT - 01/03/2022 11:06 AM EST Pt calling to check on the status of this request. This med has been refused. I could not find reason to give to Pt. Please contact Pt to let him know why this med was refused. Thanks Kristina Schneider [facility] Refill Team [employer] [facility] * Telephone Encounter - Kristina Schneider PhT - 01/02/2022 8:45 AM EST Refill Hydromorphone 4mg #84 TICKET MARKER LOCATION: [facility] DATE OF LAST REFILL? 12/19/21 FREQUENCY OF REFILLS? 14 days DATE REFILL IS DUE? 01/02/22 IS THIS AN EARLY REFILL? (Requests made within 72hrs of refill date are not considered early, this allows for processing time) No CONTROLLED SUBSTANCE AGREEMENT ON FILE? Yes Last UDS on 08/06/21 Last OV on 12/15/20 Future Appointments Date Time Provider Department Center 01/21/2022 11:15 AM Ilya Gusman MD [facility]NG TRAFFIC TECHNICIAN reviewed on 01/02/2022 by Ian BARNETT and no red flags were noted documented in this encounter Plan of Treatment Upcoming Encounters Date Type Department Care Team (Late st Contact Info) Description 10/06/2025 10:45 AM EST Office Visit [facility] - Internal Medicine [address] [place] [phone] Iyla Gusman MD [address] [place] [phone] Christophe Dailey MD [address] [place] [phone] 01/18/2026 1:00 PM EST Office Visit [facility] [address] [place] [phone] Porsha Marsh, CREDIT BALANCE SPECIALIST [address] [place] [address] 02/22/2026 11:00 AM EDT Office Visit [facility] [address] [place] [address] [address] [place] [phone] Alonso Bae MD [address] [place] [address] [address] [place] [address] 07/17/2026 2:00 PM EDT Office Visit [facility] - Internal Medicine [address] [place] [phone] Ilya Gusman MD [address] [place] [phone] 07/19/2026 11:40 AM EDT Office Visit [facility] [address] [place] [phone] Yesi Perez MD [address] [place] [address] documented as of this encounter Visit Diagnoses [...] documented as of this encounter Care Teams Drilling Engineer Relationship Specialty Start Date End Date Ilya Gusman MD [address] [place] [phone] PCP - General 05/14/17 [facility] 09/01/25 documented as of this encounter
--- OUTSIDE RECORDS SUMMARY | 2025-09-23 21:03 | XMS_ITS | Encounter Summary ---
Author Organization [facility] Address [address] [place] [address] Phone Care Team Providers Care K 12 Principal Name Role Phone Ilya Gusman MD Primary Care Provider [phone] Reason for Visit * Reason Comments Med Refill Encounter Details Date Type Department Care Team (Late Contact Info) Description 01/27/2025 Refill [facility] - Internal Medicine [address] [place] [phone] Christophe Dailey MD [address] [place] [phone] Med Refill Social History Tobacco Use [...] AM EST Office Visit [facility] - Internal Medicine [address] [place] [phone] Ilya Gusman MD [address] [place] [phone] Christophe Dailey MD [address] [place] [phone] 01/18/2026 1:00 PM EST Office Visit [facility] [address] [place] [phone] Porsha Marsh, MARILIA [address] [place] [address] 02/22/2026 11:00 AM EDT Office Visit [facility] [address] [place] [address] [address] [place] [phone] Alonso Bae MD [address] [place] [address] [address] [place] [address] 07/17/2026 2:00 PM EDT Office Visit [facility] - Internal Medicine [address] [place] [phone] Ilya Gusman MD [address] [place] [phone] 07/19/2026 11:40 AM EDT Office Visit [facility] [address] [place] [phone] Yesi Perez MD [address] [place] [address] documented as of this encounter Visit Diagnoses Not on filedocumented in this encounter Additional Health Concerns Assessment Noted Time PHQ-9 Depression Total Score: 6 04/28/20 24 1:53 PM EDT documented as of this encounter Care Teams K 12 Principal Relationship Specialty Start Date End Date Ilya Gusman MD [address] [place] [phone] PCP - General 05/14/17 [facility] 09/01/25 documented as of this encounter
--- OUTSIDE RECORDS SUMMARY | 2025-09-23 21:03 | XMS_ITS | Encounter Summary ---
Author Organization [facility] ystem Address [address] [place] [address] Phone Care Team Providers Care [employer] Glazer Name Role Phone Ilya Gusman MD Primary Care Provider [phone] Encounter Details Date Type Department Care Team (Late Contact Info) Description 12/21/2024 Scanned Document [facility] - Health Information Department [address] [place] [phone] Scan, No Provider Available [address] [place] [address] [place] [address] <No scans attached> Social History Tobacco Use [...] Upcoming Encounters Date Type Department Care Team ([facility] Contact Info) Description 10/06/2025 10:45 AM EST Office Visit [facility] - Internal Medicine [address] [place] [phone] Ilya Gusman MD [address] [place] [phone] Christophe Dailey MD [address] [place] [address] [phone] 01/18/2026 1:00 PM EST Office Visit [facility] [address] [place] [phone] Porsha Marsh, TECHNICAL SUPPORT SPECIALIST [address] [place] [address] 02/22/2026 11:00 AM EDT Office Visit [facility] [address] [place] [address] [address] [place] [phone] Alonso Bae MD [address] [place] [address] [address] [place] [address] 07/17/2026 2:00 PM EDT Office Visit [facility] - Internal Medicine [address] [place] [phone] Ilya Gusman MD [address] [place] [phone] 07/19/2026 11:40 AM EDT Office Visit [facility] [address] [place] [phone] Yesi Perez MD [address] [place] [phone] documented as of this encounter Visit Diagnoses Not on filedocumented in this encounter Additional Health Concerns Assessment Noted Time PHQ-9 Depression Total Score: 6 04/28/20 24 1:53 PM EDT documented as of this encounter Care Teams [employer] Glazer Relationship Specialty Start Date End Date Ilya Gusman MD [address] [place] [phone] PCP - General 05/14/17 [facility] 09/01/25 documented as of this encounter
[2025-09-23 21:07] VITALS: BP 122/66; PULSE 92; RESP 18; TEMP 36.7; O2SAT 98
[2025-09-23 21:09] VITALS: BMI 27.9
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
[2025-09-24 08:53] VITALS: BP 131/69; PULSE 65; RESP 16; TEMP 36.3; O2SAT 96
[2025-09-24] MEDS: Ferrous Sulfate 324 MG TABLET.DR PO (08:57)
[2025-09-24] MEDS: dilTIAZem HCL CD 240 MG CAP.ER.DEG PO (08:58)
--- NOTE | 2025-09-24 17:05 | HO.PSYCHPN ---
Subjective Subjective Date of Service: 09/24/25 Reason For Visit: PTSD Diagnostics Vital Signs (24Hr): Vital Signs - 24 hr 09/23/25 21:07 09/24/25 08:53 Temperature 98.1 F 97.3 F Pulse Rate 92 65 Respiratory Rate 18 16 Blood Pressure 122/66 131/69 Pulse Oximetry 98 96 Oxygen Delivery Method Room Air Room Air BMI result Body Mass Index 27.9 Medications Medications Current Medications Acetaminophen (Acetaminophen 325 Mg Tablet) 650 mg PO Q6H PRN PRN Reason: Headache/Pain, Scale 1-10 Al Hydroxide/Mg Hydroxide (Magnesium Hydrox/Alum Hydrox 30 Ml Oral.Susp) 30 ml PO Q6H PRN PRN Reason: Heartburn/Nausea Apixaban (Apixaban 5 Mg Tablet) 5 mg PO BID [facility] Last Admin: 09/24/25 08:58 Dose: 5 mg Atorvastatin Calcium (Atorvastatin Calcium 40 Mg Tablet) 40 mg PO BEDTIME [facility] Last Admin: 09/23/25 22:18 Dose: 40 mg Diltiazem HCl (Diltiazem Hcl Cd 240 Mg Cap.Er.Deg) 240 mg PO DAILY [facility]; Protocol Last Admin: 09/24/25 08:58 Dose: 240 mg Duloxetine HCl (Duloxetine Hcl 60 Mg Capsule.Dr) 60 mg PO BID [facility] Last Admin: 09/24/25 08:57 Dose: 60 mg Ferrous Sulfate (Ferrous Sulfate 324 Mg Tablet.Dr) 324 mg PO DAILY [facility] Last Admin: 09/24/25 08:57 Dose: 324 mg Fluticasone Propionate (Fluticasone Propionate Nasal 16 Gm [place]) 1 spray NOSTRIL-B DAILY PRN PRN Reason: Allergy Symptoms Folic Acid (Folic Acid 1 Mg Tablet) 1 mg PO DAILY [facility] Last Admin: 09/24/25 08:58 Dose: 1 mg Furosemide (Furosemide 40 Mg Tablet) 40 mg PO DAILY PRN; Protocol PRN Reason: Edema Hydromorphone HCl (Hydromorphone Hcl 2 Mg Tablet) 8 mg PO TID PRN PRN Reason: Pain, Severe Last Admin: 09/24/25 08:57 Dose: 8 mg Isosorbide Mononitrate (Isosorbide Mononitrate 30 Mg Tab.Er.24h) 30 mg PO DAILY [facility]; Protocol Last Admin: 09/24/25 08:57 Dose: 30 mg Magnesium Hydroxide (Milk Of Magnesia 30 Ml Oral.Susp) 30 ml PO DAILY PRN PRN Reason: Constipation Nicotine (Nicotine 21 Mg Patch.Td24) 21 mg TRANSDERMA DAILY PRN PRN Reason: smoking cessation Olanzapine (Olanzapine 2.5 Mg Tablet) 2.5 mg PO TID PRN PRN Reason: agitation Omeprazole (Omeprazole 20 Mg Capsule.Dr) 20 mg PO DAILY@0630 [facility] Last Admin: 09/24/25 08:56 Dose: 20 mg Quetiapine Fumarate (Quetiapine Fumarate 200 Mg Tablet) 200 mg PO BID [facility] Last Admin: 09/24/25 08:58 Dose: 200 mg Senna (Sennosides 8.6 Mg Tablet) 17.2 mg PO DAILY PRN PRN Reason: Constipation Thiamine HCl (Thiamine Hcl 100 Mg Tablet) 100 mg PO DAILY [facility] Last Admin: 09/24/25 08:58 Dose: 100 mg Trazodone HCl (Trazodone Hcl 50 Mg Tablet) 50 mg PO BEDTIME MRX1 PRN PRN Reason: Insomnia Vitamin D (Cholecalciferol (Vitamin D3) 25 Mcg Tablet) 25 mcg PO DAILY [facility] Last Admin: 09/24/25 08:58 Dose: 25 mcg Allergies Allergies Allergy/AdvReac Type Severity Reaction Status Date / Time bee venom protein (honey bee) Allergy Swelling Verified 09/23/25 21:49 Sulfa (Sulfonamide Allergy Hives Verified 09/23/25 21:49 Antibiotics) fluoxetine AdvReac Hallucinati Verified 09/23/25 21:49 ons Assessment & Plan Time Spent With Patient Time: Total time managing care of this patient today ____ minutes.
[2025-09-24 20:00] VITALS: BP 124/70; PULSE 66; RESP 16; TEMP 36.6; O2SAT 97
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
[2025-09-25 08:50] LABS: Alanine Aminotransferase 17 U/L (0-40); Albumin Level 3.9 g/dL (3.5-5.0); Alkaline Phosphatase 46 U/L (39-117); Anion Gap 12 (12-20); Aspartate Amino Transferase 26 U/L (5-37); Blood Urea Nitrogen 16 mg/dL (9-16); Calcium 9.0 mg/dL (8.4-10.2); Carbon Dioxide 23 mmol/L (22-29); Chloride 110 mmol/L (96-108); Cholesterol 141 mg/dL (<200); Creatinine Clr Calc Pharmacy 81.6; Estimated Glomerular Filt Rate > 60; HDL Cholesterol 58 mg/dL (>40); Iron 96 mcg/dL (45-160); Percent Iron Saturation 37 % (15-50); Potassium 3.9 mmol/L (3.3-5.1); Sodium 141 mmol/L (135-145); Total Iron Binding Capacity 257 mcg/dL (228-428); Total Protein 6.4 g/dL (6.5-8.0); Triglycerides 108 mg/dL (<150); Unsaturated Iron Binding 161 ug/dL
[2025-09-25 08:54] LABS: NT Pro B Type Natriuretic Pept 118.0 pg/mL (<300)
[2025-09-25 08:56] VITALS: BP 128/75; PULSE 63; RESP 18; TEMP 36.3; O2SAT 97
[2025-09-25] MEDS: dilTIAZem HCL CD 240 MG CAP.ER.DEG PO (08:58)
[2025-09-25] MEDS: Ferrous Sulfate 324 MG TABLET.DR PO (08:58)
[2025-09-25 10:30] LABS: Resp Syncy Virus RNA Qual PCR NEGATIVE (Negative); SARS COV2 PCR INHOUSE NEGATIVE (Negative)
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
--- NOTE | 2025-09-25 18:09 | PC.NURSE ---
Adolfo signed a 3 Day Notice, which will be up 09/28/25.
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
[2025-09-25 20:00] VITALS: BP 129/70; PULSE 62; RESP 16; TEMP 36.3; O2SAT 98
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
--- NOTE | 2025-09-26 | ECG_ITS ---
Test Reason : HX AFIB Blood Pressure : */* mmHG Vent. Rate : 64 BPM Atrial Rate : 64 BPM P-R Int : 206 ms QRS Dur : 104 ms QT Int : 456 ms P-R-T Axes : 59 -20 27 degrees QTcB Int : 470 ms Normal sinus rhythm Low voltage QRS Borderline ECG No previous ECGs available Referred By: Corie Morelos Electronically Signed By: Duthc Lomas
[2025-09-26 08:00] VITALS: BP 123/59; PULSE 70; RESP 14; TEMP 36.6; O2SAT 94
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
[2025-09-26 09:11] VITALS: BP 123/59
[2025-09-26] MEDS: dilTIAZem HCL CD 240 MG CAP.ER.DEG PO (09:11)
[2025-09-26] MEDS: Ferrous Sulfate 324 MG TABLET.DR PO (09:13)
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
[2025-09-26 19:59] VITALS: BP 111/52; PULSE 82; RESP 15; TEMP 36.1; O2SAT 95
[2025-09-27 08:00] VITALS: BP 132/61; PULSE 66; RESP 19; TEMP 36.5; O2SAT 95
[2025-09-27] MEDS: Ferrous Sulfate 324 MG TABLET.DR PO (08:14)
[2025-09-27] MEDS: dilTIAZem HCL CD 240 MG CAP.ER.DEG PO (08:15)
--- NOTE | 2025-09-27 09:51 | MHC.CLN ---
NUTRITION DIET CHANGED TO REGULAR TO PROMOTE PO INTAKE.
[2025-09-27 19:46] VITALS: BP 110/55; PULSE 67; RESP 16; TEMP 36.6; O2SAT 96
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
[2025-09-28 08:01] VITALS: BP 125/71; PULSE 59; RESP 17; TEMP 36.3; O2SAT 96
[2025-09-28 08:15] VITALS: PULSE 68
[2025-09-28] MEDS: dilTIAZem HCL CD 240 MG CAP.ER.DEG PO (08:15)
[2025-09-28] MEDS: Ferrous Sulfate 324 MG TABLET.DR PO (08:17)
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
[2025-09-28 20:00] VITALS: BP 144/72; PULSE 60; RESP 16; TEMP 36.3; O2SAT 97
[2025-09-29 07:53] VITALS: BP 127/73; PULSE 78; RESP 15; TEMP 36; O2SAT 93
[2025-09-29] MEDS: Ferrous Sulfate 324 MG TABLET.DR PO (08:29)
[2025-09-29] MEDS: dilTIAZem HCL CD 240 MG CAP.ER.DEG PO (08:29)
[2025-09-29 14:19] VITALS: BMI 29.0
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
--- NOTE | 2025-09-29 15:49 | PC.NURSE ---
Patient's pharmacy is [facility], [address] [place] [address], [id number]. Phone number is [phone].
[2025-09-29 20:00] VITALS: BP 137/61; PULSE 59; TEMP 36.9; O2SAT 95
[2025-09-29 20:13] VITALS: BP 137/61; PULSE 59; RESP 16; TEMP 36.9; O2SAT 95
[2025-09-30 08:00] VITALS: BP 121/64; PULSE 74; TEMP 36.3; O2SAT 96
[2025-09-30 08:19] LABS: Lithium 0.11 mmol/L (0.60-1.20)
[2025-09-30 08:28] LABS: Alanine Aminotransferase 16 U/L (0-40); Albumin Level 3.7 g/dL (3.5-5.0); Alkaline Phosphatase 43 U/L (39-117); Anion Gap 11 (12-20); Aspartate Amino Transferase 19 U/L (5-37); Blood Urea Nitrogen 8 mg/dL (9-16); Calcium 9.3 mg/dL (8.4-10.2); Carbon Dioxide 29 mmol/L (22-29); Chloride 106 mmol/L (96-108); Creatinine Clr Calc Pharmacy 74.3; Estimated Glomerular Filt Rate > 60; Potassium 4.7 mmol/L (3.3-5.1); Sodium 141 mmol/L (135-145); Total Protein 6.1 g/dL (6.5-8.0)
[2025-09-30] MEDS: dilTIAZem HCL CD 240 MG CAP.ER.DEG PO (08:30)
[2025-09-30] MEDS: Ferrous Sulfate 324 MG TABLET.DR PO (08:30)
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
== END 2025-09-30 11:25 | disposition home or self-care (01) | DRG 881 ==
PROVIDERS: Nurse Practitioner Family; Psychiatry & Neurology Psychiatry; Social Worker; Admitting Provider Psychiatry & Neurology Psychiatry; PCP Internal Medicine; Visit Provider Psychiatry & Neurology Psychiatry
DX: F32.9 Major depressive disorder, single episode, unspecified (principal); I50.30 Unspecified diastolic (congestive) heart failure; F43.10 Post-traumatic stress disorder, unspecified; I11.0 Hypertensive heart disease with heart failure; I25.5 Ischemic cardiomyopathy; I48.91 Unspecified atrial fibrillation; G89.21 Chronic pain due to trauma; D50.9 Iron deficiency anemia, unspecified; V89.2XXS Person injured in unspecified motor-vehicle accident, traffic, sequela; F10.90 Alcohol use, unspecified, uncomplicated; E78.5 Hyperlipidemia, unspecified; Z20.822 Contact with and (suspected) exposure to COVID-19; Z86.711 Personal history of pulmonary embolism; Z79.01 Long term (current) use of anticoagulants; Z79.899 Other long term (current) drug therapy
CPT/HCPCS: 36415; 71046; 80053; 80061; 80178; 83036; 83540; 83880; 84443; 87637; 93005

== ENCOUNTER → 2025-09-23 20:44 | Outpatient (BNV) | payer MEDICARE, MEDICAID, SELFPAY | PROVIDERS: Admitting Provider Psychiatry & Neurology Psychiatry; Visit Provider Nurse Practitioner Family | DX: I50.32 Chronic diastolic (congestive) heart failure (principal) | CPT/HCPCS: 99223; 99231 ==

== ENCOUNTER → 2025-09-23 20:44 | Outpatient (BNV) | payer MEDICARE, MEDICAID, SELFPAY | PROVIDERS: Admitting Provider Psychiatry & Neurology Psychiatry; Visit Provider Psychiatry & Neurology Psychiatry | DX: F32.2 Major depressive disorder, single episode, severe without psychotic features (principal); F43.11 Post-traumatic stress disorder, acute; I50.32 Chronic diastolic (congestive) heart failure; I10 Essential (primary) hypertension; I48.0 Paroxysmal atrial fibrillation | CPT/HCPCS: 90792; 99231; 99232; 99239; 99499 ==

== ENCOUNTER 2025-10-06 22:11 | Inpatient (IN) | payer MEDICARE, MEDICAID, SELFPAY ==
--- OUTSIDE RECORDS SUMMARY | 2025-02-27 16:30 | XMS_ITS ---
Author Organization [facility] Address [address], [place] [address] Care Team Providers Care Envelope Cutter Name Role Phone DR Ilya Gusman Primary Care Provider Mitzi Amado, Anit Unavailable [phone] REASON FOR VISIT SS NO PA NEEDED Medications Medication SIG (Take, Route, Frequency, Duration) Notes Start Date End Date Status HYDROmorphone HCl 4 MG 1 tablet as neede d Orally every 6 hrs Active Atorvastatin Calcium 40 MG 1 tablet Oral ly Once a day; Duration: 30 day(s) Active DULoxetine HCl 60 MG 1 capsule Orally On ce a day; Duration: 30 day(s) Active traZODone HCl 50 MG 1 tablet at bedtime as needed Orally Once a day Active Fluticasone Propionate 50 MCG/ACT 2 sprays in each nostril Nasally Once a day; Duration: 30 day(s) Active QUEtiapine Fumarate 100 MG 1 tablet at b edtime Orally Once a day; Duration: 30 day(s) Active Omeprazole 40 MG 1 capsule 1/2 to 1 h our before morning meal Orally Once a day Active Eliquis 5 MG as directed Orally BID Active Dilt-XR 180 MG 1 capsule Orally Onc e a day Active Metoprolol Succinate 25 MG 1 capsule Ora lly Once a day Active Encounters Encounter Location Date Provider Diagnosis [facility] [address] [place], [place] [phone] 02/27/2025 Nataliit Aneudy Hypersomnia, unspecified G47.10 ; Obstructive sleep apnea (adult) (pediatric) G47.33 and Insomnia, unspecified G47.00 Assessments Encounter Date Diagnosis (ICD Code) Assessment Notes Treatment Notes Treatment Clinical Notes Section Notes 02/27/2025 Hypersomnia, unspecified (ICD-10 - G47.10) 02/27/2025 Obstructive sleep apnea (adult) (pediatric) (ICD-10 - G47.33) 02/27/2025 Insomnia, unspecified (ICD-10 - G47.00) Plan Of Treatment No Information Progress Notes * Adolfo HANNON JDOB:[birth year] (70 yo M)Acc No.[id number]:02/27/2025 Progress Notes Patient: Adolfo MORIN Provider: Leonel Amado MD, LUIS ARMANDO, FACS :1955 A ge:69 Y S ex:Male Date:02/27/2025 Address:[address] [place] [address] Pcp:DR Ilya Gusman Subjective: * Chief Complaints: * 1 . SS NO PA NEEDED. * Medical History: * Medications: T aking Metoprolol Succinate 25 MG Capsule ER 24 Hour Sprinkle 1 capsule Orally Once a day , Taking Dilt-XR 180 MG Capsule Extended Release 24 Hour 1 capsule Orally Once a day , Taking Eliquis 5 MG Tablet as directed Orally , Notes to Pharmacist: BID, Taking Omeprazole 40 MG Capsule Delayed Release 1 capsule 1/2 to 1 hour before morning meal Orally Once a day , Taking QUEtiapine Fumarate 100 MG Tablet 1 tablet at bedtime Orally Once a day , Taking DULoxetine HCl 60 MG Capsule Delayed Release Particles 1 capsule Orally Once a day , Taking Atorvastatin Calcium 40 MG Tablet 1 tablet Orally Once a day , Taking HYDROmorphone HCl 4 MG Tablet 1 tablet as needed Orally every 6 hrs , Taking Fluticasone Propionate 50 MCG/ACT Suspension 2 sprays in each nostril Nasally Once a day , Taking traZODone HCl 50 MG Tablet 1 tablet at bedtime as needed Orally Once a day Objective: * Vitals: Assessment: * Assessment: 1. H ypersomnia, unspecified - G47.10 2 . O bstructive sleep apnea (adult) (pediatric) - G47.33 3 . I nsomnia, unspecified - G47.00 Plan: * Treatment: * Procedure Codes: 9 5810 POLYSOMNOGRAPHY, 4 OR MORE * Images: * Electronic signature of Aaron Amado MD on 10/06/2025 at 10:28 PM EST Sign off status: Pending * Provider: Leonel Amado MD, LUIS ARMANDO, FACS Date: 0 02/27/2025 Generated for Hilary davis/Ayo/Juanis on: 1 12/06/2024 10:28 PM EST
--- OUTSIDE RECORDS SUMMARY | 2025-05-07 16:30 | XMS_ITS ---
Author Organization [facility] Address [address] [place], [place] [phone] Care Team Providers Care Automotive Service Writer Name Role Phone DR Ilya Gusman Primary Care Provider Aaron Ponce Unavailable [phone] REASON FOR VISIT CPAP INTO BIPAP NO PA NEEDED Encounters Encounter Location Date Provider Diagnosis [facility] [address] [place], [place] [phone] 05/07/2025 Aaron Amado Plan Of Treatment No Information Progress Notes * Adolfo HANNONDOB:[birth year] (70 yo M)Acc No.[id number]:05/07/2025 Progress Notes Patient: Adolfo MORIN Eliza Provider: Leonel Amado MD, LUIS ARMANDO, FACS :1955 A ge:69 Y S ex:Male Date:05/07/2025 Address:[address] [place], [place] [phone] Pcp:DR Ilya Gusman Subjective: * Chief Complaints: * 1 . CPAP INTO BIPAP NO PA NEEDED. * Medical History: Objective: * Vitals: Assessment: Plan: * Treatment: * Images: * Electronic signature of Aaron Amado MD on 10/06/2025 at 10:21 PM EST Sign off status: Pending * Provider: Leonel Amado MD, LUIS ARMANDO, FACS Date: 0 05/07/2025 Generated for Juniori ng/Ayo/eTransmitting on: 1 12/06/2024 10:21 PM EST
--- OUTSIDE RECORDS SUMMARY | 2025-06-18 15:30 | XMS_ITS ---
Author Organization [facility] Address [address] [place], [place] [phone] Care Team Providers Care Rack Worker Name Role Phone DR Ilya Gusman Primary Care Provider Mitzi Amado, Anit Unavailable [phone] REASON FOR VISIT CPAP INTO BIPAP NO PA NEEDED Medications Medication SIG (Take, Route, Frequency, Duration) Notes Start Date End Date Status HYDROmorphone HCl 4 MG 1 tablet as neede d Orally every 6 hrs Active Atorvastatin Calcium 40 MG 1 tablet Oral ly Once a day; Duration: 30 day(s) Active Metoprolol Succinate 25 MG 1 capsule Ora lly Once a day Active traZODone HCl 50 MG 1 tablet [...] capsule Orally Onc e a day Active DULoxetine HCl 60 MG 1 capsule Orally On ce a day; Duration: 30 day(s) Active Encounters Encounter Location Date Provider Diagnosis [facility] [address] [place], [place] [phone] 06/18/2025 Nataliit Aneudy Obstructive sleep ap chinyere (adult) (pediatric) G47.33 ; Other abnormalities of breathing R06.89 and Snoring R06.83 Assessments Encounter Date Diagnosis (ICD Code) Assessment Notes Treatment Notes Treatment Clinical Notes Section Notes 06/18/2025 Obstructive sleep apnea (adult) (pediatric) (ICD-10 - G47.33) 06/18/2025 Other abnormalities of breathing (ICD-10 - R06.89) 06/18/2025 Snoring (ICD-10 - R06.83) Plan Of Treatment No Information Progress Notes * Adolfo HANNON JDOB:[birth year] (70 yo M)Acc No.[id number]:06/18/2025 Progress Notes Patient: Adolfo MORIN Provider: Leonel Amado MD, LUIS ARMANDO, FACS :1955 A ge:69 Y S ex:Male Date:06/18/2025 Address:[address] [place] [address] Pcp:DR Ilya Gusman Subjective: * Chief Complaints: * 1 . CPAP INTO BIPAP NO PA NEEDED. * Medical History: * [...] Objective: * Vitals: Assessment: * Assessment: 1. O bstructive sleep apnea (adult) (pediatric) - G47.33 2 . O ther abnormalities of breathing - R06.89 3 . S noring - R06.83 Plan: * Treatment: * Procedure Codes: 9 5811 POLYSOMNOGRAPHY W/CPAP * Images: * Electronic signature of Aaron Amado MD on 10/06/2025 at 10:24 PM EST Sign off status: Pending * Provider: Leonel Amado MD, LUIS ARMANDO, FACS Date: 0 06/18/2025 Generated for Hilary davis/Ayo/Juanis on: 1 12/06/2024 10:24 PM EST
--- OUTSIDE RECORDS SUMMARY | 2025-07-07 06:10 | XMS_ITS ---
Author Organization [facility] Address [address] [place] [phone] Care Team Providers Care Punch Machine Operator Name Role Phone DR Ilya Gusman Primary Care Provider Aaron Ponce Unavailable [phone] REEVES RESULTS Encounters Encounter Location Date Provider Diagnosis [facility] [address] [phone] 07/07/2025 Aaron Amado Plan Of Treatment No Information Progress Notes * Adolfo HANNONDOB:[birth year] (70 yo M)Acc No.[id number]:07/07/2025 Progress Notes Patient: Adolfo MORIN Provider: Leonel Amado MD, LUIS ARMANDO, FACS :1955 A ge:69 Y S ex:Male Date:07/07/2025 Address:[address] [place], [place] [phone] Pcp:DR Ilya Gusman Subjective: * Chief Complaints: * [address] REEVES RESULTS. * Medical History: Objective: * Vitals: Assessment: Plan: * Treatment: * Images: * Electronic signature of Aaron Amado MD on 10/06/2025 at 10:24 PM EST Sign off status: Pending * Provider: Leonel Amado MD, LUIS ARMANDO, FACS Date: 0 07/07/2025 Generated for Hilary davis/Ayo/eTransmitting on: 1 12/06/2024 10:24 PM EST
--- OUTSIDE RECORDS SUMMARY | 2025-08-26 16:30 | XMS_ITS ---
Author Organization [facility] Address [address] [place], [place] [phone] Care Team Providers Care Quality Control Manager Name Role Phone DR Ilya Gusman Primary Care Provider Mitzi Amado, Anit Unavailable [phone] REASON FOR VISIT ASV SS Encounters Encounter Location Date Provider Diagnosis [facility] [address] [place], [place] [phone] 08/26/2025 aNtaliit Aneudy Primary central slee p apnea G47.31 Assessments Encounter Date Diagnosis (ICD Code) Assessment Notes Treatment Notes Treatment Clinical Notes Section Notes 08/26/2025 Primary central sleep apnea (ICD-10 - G47.31) Plan Of Treatment No Information Progress Notes * Adolfo HANNONDOB:[birth year] (70 yo M)Acc No.[id number]:08/26/2025 Progress Notes Patient: [place] ORELLANA Adolfo Kay Provider: Leonel Amado MD, LUIS ARMANDO, FACS :1955 A ge:70 Y S ex:Male Date:08/26/2025 Address:[address] [place] [address] Pcp:DR Ilya Gusman Subjective: * Chief Complaints: * 1 . ASV SS. * Medical History: Objective: * Vitals: Assessment: * Assessment: 1. P rimary central sleep apnea - G47.31 (Primary) Plan: * Treatment: * Procedure Codes: 9 5811 POLYSOMNOGRAPHY W/CPAP, Modifiers: 52 * Images: * Electronic signature of Aaron Amado MD on 10/06/2025 at 10:26 PM EST Sign off status: Pending * Provider: Leonel Amado MD, LUIS ARMANDO, FACS Date: Generated for Hilary davis/Ayo/Juanis on: 1 12/06/2024 10:26 PM EST
--- OUTSIDE RECORDS SUMMARY | 2025-09-08 05:10 | XMS_ITS ---
Author Organization [facility] Address [address] [place], [place] [address] Care Team Providers Care Job Interviewer Name Role Phone DR Ilya Gusman Primary Care Provider Mitzi Amado, Anit Unavailable [phone] Allergies Allergen (clinical drug ingredient) Drug/Non Drug Allergy documented on EMR Reaction Allergy Type Onset Date Status fluoxetine PROzac Unknown Drug Allergy Active fluoxetine Fluoxetine Unknown Drug Allergy Activ e Substance with sulfonamide structure and antibacterial mechanism of action (substance) Sulfa Antibiotics Unknown Drug Allergy Active REASON FOR VISIT DR/DINORAV TITRATION RS Medications Medication SIG (Take, Route, Frequency, Duration) Notes Start Date End Date Status traZODone HCl 50 MG 1 tablet at bedtime as needed Orally Once a day Active Fluticasone Propionate 50 MCG/ACT 2 sprays in each nostril Nasally Once a day; Duration: 30 day(s) Active DULoxetine HCl 60 MG 1 capsule Orally On ce a day; Duration: 30 day(s) Active HYDROmorphone HCl 4 MG 1 tablet as neede d Orally every 6 hrs Active Atorvastatin Calcium 40 MG 1 tablet Oral ly Once a day; Duration: 30 day(s) Active Dilt-XR 180 MG 1 capsule Orally Onc e a day Active Metoprolol Succinate 25 MG 1 capsule Ora lly Once a day Active QUEtiapine Fumarate 100 MG 1 tablet at b edtime Orally Once a day; Duration: 30 day(s) Active Omeprazole 40 MG 1 capsule 1/2 to 1 h our before morning meal Orally Once a day Active Eliquis 5 MG as directed Orally BID Active Vital Signs Height 69 in 09/08/2025 Weight 180 lbs 09/08/2025 BMI 26.58 kg/m2 09/08/2025 Encounters Encounter Location Date Provider Diagnosis [facility] [address] [phone] 09/08/2025 Aaron Amado Obstructive sleep apnea (adult) (pediatric) G47.33 ; Primary central sleep apnea G47.31 ; Other insomnia G47.09 and Other heart failure I50.89 Assessments Encounter Date Diagnosis (ICD Code) Assessment Notes Treatment Notes Treatment Clinical Notes Section Notes 09/08/2025 Obstructive sleep apnea (adult) (pediatric) (ICD-10 - G47.33) The patient's recent ASV titration was Inconclusive as the patient was unable to tolerate the titration. Given the patient had mixed apnea on his original polysomnogram with a central index of 40.5 I will review with our sleep chemical processing laborer if this patient would qualify for remede procedure versus inspire. Dictated by Misael Gill PA-C 09/08/2025 Primary central sleep apnea (ICD-10 - G47.31) The patient's recent ASV titration was Inconclusive as the patient was unable to tolerate the titration. Given the patient had mixed apnea on his original polysomnogram with a central index of 40.5 I will review with our sleep chemical processing laborer if this patient would qualify for remede procedure versus inspire. Dictated by Misael Gill PA-C 09/08/2025 Other insomnia (ICD-10 - G47.09) The patient's recent ASV titration was Inconclusive as the patient was unable to tolerate the titration. Given the patient had mixed apnea on his original polysomnogram with a central index of 40.5 I will review with our sleep chemical processing laborer if this patient would qualify for remede procedure versus inspire. Dictated by Misael Gill PA-C 09/08/2025 Other heart failure (ICD-10 - I50.89) The patient's recent ASV titration was Inconclusive as the patient was unable to tolerate the titration. Given the patient had mixed apnea on his original polysomnogram with a central index of 40.5 I will review with our sleep chemical processing laborer if this patient would qualify for remede procedure versus inspire. Dictated by Misael Jairo PA-C Plan Of Treatment Next Appt Details Follow Up: prn, Reason: Progress Notes * Adolfo HANNON JDOB:[birth year] (70 yo M)Acc No.[id number]:09/08/2025 Progress Notes Patient: Adolfo MORIN Provider: Leonel Amado MD, LUIS ARMANDO, FACS :1955 A ge:70 Y S ex:Male Date:09/08/2025 Address:[address] [place] [address] Pcp:DR Ilya Gusman Subjective: * Chief Complaints: * [address] DR/ASV TITRATION RS. * HPI: A udiometric history: The patient returns today To discuss the results of his recent overnight ASV titration study. The patient's previous overnight polysomnogram appears to be consistent with central apnea with a central index of 40.45 and obstructive index of 7.69. I did obtain a recent transthoracic echocardiogram from November which reveals that the ejection fraction by visual approximation is 55-60% and adequate for ASV therapy. After discussing with the sleep lab the patient did have to undergo CPAP/BiPAP and show failure prior to proceeding with an ASV titration. The patient's recent overnight CPAP/BiPAP titration was unsuccessful due to persistent central apnea. The patient's recent ASV titration was Inconclusive as the patient was unable to tolerate the titration. * Medical History: H eart failure, Hypercholesterolemia, Afib. * Surgical History: m any ortho surgeries . * Family History: denies Fhx. * Social History: d enies smoking. * Medications: T aking Metoprolol Succinate 25 [...] bedtime as needed Orally Once a day , Medication List reviewed and reconciled with the patient * Allergies: S ulfa Antibiotics, PROzac, Fluoxetine. Objective: * Vitals: H t: 69 in, Wt:180lbs, BMI:26.58Index, Wt-k.65 kg. Assessment: * Assessment: 1. P rimary central sleep apnea - G47.31 2 . O bstructive sleep apnea (adult) (pediatric) - G47.33 (Primary) 3 . O ther insomnia - G47.09 4 . O ther heart failure - I50.89 The patient's recent ASV tit ration was Inconclusive as the patient was unable to tolerate the titration. Given the patient had mixed apnea on his original polysomnogram with a central index of 40.5 I will review with our sleep chemical processing laborer if this patient would qualify for remede procedure versus inspire. Dictated by Misael Gill PA-C Plan: * Treatment: * Procedure Codes: 9 9213 Office Visit, Est Pt., Level 3 (15 min), G8427 DOC MEDS VERIFIED W/PT OR RE * Follow Up: p rn * Images: * Electronic signature of Aaron Amado MD on 10/06/2025 at 10:22 PM EST Sign off status: Pending * Provider: Leonel Amado MD, LUIS ARMANDO, FACS Date: Generated for Hilary davis/Ayo/eTransmitting on: 12/06/2024 10:22 PM EST History and Physical Notes * HPI (History of Present Illness) Category Sub-Category Detail Notes Category Not es Audiometric history The kim ent returns today To discuss the results of his recent overnight ASV titration study. The patient's previous overnight polysomnogram appears to be consistent with central apnea with a central index of 40.45 and obstructive index of 7.69. I did obtain a recent transthoracic echocardiogram from November which reveals that the ejection fraction by visual approximation is 55-60% and adequate for ASV therapy. After discussing with the sleep lab the patient did have to undergo CPAP/BiPAP and show failure prior to proceeding with an ASV titration. The patient's recent overnight CPAP/BiPAP titration was unsuccessful due to persistent central apnea. The patient's recent ASV titration was Inconclusive as the patient was unable to tolerate the titration.
--- OUTSIDE RECORDS SUMMARY | 2025-10-05 11:00 | XMS_ITS | Encounter Summary ---
Author Organization [facility] Address [address] [place] [address] Phone Care Team Providers Care Laundrette Owner Name Role Phone Ilya Gusman MD Primary Care Provider [phone] Reason for Visit * Reason Comments Hospital Follow-Up [facility] er Encounter Details Date Type Department Care Team ([facility] Contact Info) Description 10/05/2025 11:00 AM EST Office Visit [facility] - Internal Medicine [address] [place] [phone] Ilya Gusman MD [address] [place] [phone] Severe major depression without psychotic features (CMS/HCC) (Primary Dx); Posttraumatic stress disorder; Suicidal ideation; Acute bilateral low back pain without sciatica; Muscle spasm Social History Tobacco Use Types Packs/Day Years [...] Sign Reading Time Taken Comments Blood Pressure 140/74 10/05/2025 10:50 AM EST Pulse 105 10/05/2025 10:50 AM EST Temperature - - Respiratory Rate - - Oxygen Saturation 97% 10/05/2025 10:50 AM EST Inhaled Oxygen Concentration - - Weight 85.3 kg (188 lb) 10/05/2025 10:50 AM EST Height 175.3 cm (5' 9 ) 10/05/2025 10:50 AM EST Body Mass Index 27.76 10/05/2025 10:50 AM EST documented in this encounter Functional Status * Are you deaf or do you have serious difficulty hearing? Answer Date of Assessment Author No 05/20/2025 10:06 AM Roberta Ardon MA * Are you blind or do you have serious difficulty seeing, even when wearing glasses? Answer Date of Assessment Author No 05/20/2025 10:06 AM Roberta Ardon MA * Do you have serious difficulty walking or climbing stairs? Answer Date of Assessment Author Yes 05/20/2025 10:06 AM Roberta Ardon MA * Do you have serious difficulty dressing or bathing? Answer Date of Assessment Author No 05/20/2025 10:06 AM Roberta Ardon MA * Because of a physical, mental, or emotional condition, do you have serious difficulty doing errandsalone such as visiting the doctor? Answer Date of Assessment Author No 05/20/2025 10:06 AM Roberta Ardon MA documented as of this encounter Mental Status * Because of a physical, mental, or emotional condition, do you have serious difficulty concentrating, remembering, or making decisions? Answer Entry Date Author No 05/20/2025 10:06 AM EDT Roberta Wang MA documented in this encounter Plan of Treatment Upcoming Encounters Date Type Department Care Team (Late st Contact Info) Description 10/10/2025 10:30 AM EST Office Visit [facility] - Internal Medicine [address] [place] [phone] Ilya Gusman MD [address] [place] [phone] Christophe Dailey MD [address] [place] [phone] 01/18/2026 1:00 PM EST Office Visit [facility] [address] [place] [phone] Porsha Marsh, STRUCTURAL WORKER [address] [place] [address] 02/22/2026 11:00 AM EDT Office Visit [facility] [address] [place] [address] [address] [place] [phone] Alonso Bae MD [address] [place] [address] [address] [place] [address] 07/17/2026 2:00 PM EDT Office Visit [facility] - Internal Medicine [address] [place] [phone] Ilya Gusman MD [address] [place] [phone] 07/19/2026 11:40 AM EDT Office Visit [facility] [address] [place] [phone] Yesi Perez MD [address] [place] [phone] documented as of this encounter Visit Diagnoses Diagnosis Severe major depression without psychotic features (CMS/HCC)- Primary Major depressive disorder, single episode, severe, without mention of psychotic behavior Posttraumatic stress disorder Suicidal ideation Acute bilateral low back pain without sciatica Muscle spasm Spasm of muscle documented in this encounter Additional Health Concerns Assessment Noted Time PHQ-9 Depression Total Score: 16 025 11:49 AM EDT documented as of this encounter Care Teams Laundrette Owner Relationship Specialty Start Date End Date Ilya Gusman MD [address] [place] [phone] PCP - General 05/14/17 [facility] 09/01/25 documented as of this encounter
--- OUTSIDE RECORDS SUMMARY | 2025-10-05 21:25 | XMS_ITS | Encounter Summary ---
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 [facility] pH, Urine 7.0(H) 5.0 - 6.0 10/06/2025 9:59 AM [facility] Protein, Urine Negative Negative, 1+ 10/06/2025 9:59 AM [facility] Glucose, Urine Negative Negative 10/06/2025 9:59 AM [facility] Ketone, Urine Negative Negative, Trace 10/06/2025 9:59 AM [facility] Bilirubin, Urine Negative Negative 10/06/2025 9:59 AM [facility] Urobilinogen, Urine Negative 0.2-1.0 mg/dL 10/06/2025 9:59 AM [facility] Blood, Urine Negative Negative 10/06/2025 9:59 AM [facility] Leukocyte Esterase, Urine Negative Negative 10/06/2025 9:59 AM [facility] Nitrite, Urine Negative Negative 10/06/2025 9:59 AM [facility] Specific [place], Urine 1.013 1.005 - 1.030 10/06/2025 9:59 AM [facility] White Blood Cells, Urine 0-2 <5 cells/HPF 10/06/2025 9:59 AM [facility] Red Blood Cell, Urine None Seen <2 cells/HPF 10/06/2025 9:59 AM [facility] Bacteria Urine None Seen None Seen 10/06/2025 9:59 AM [facility] Mucous Threads Trace None Seen, Trace 10/06/2025 9:59 AM [facility] Urine MID-STREAM URINE SPECIMEN / Unknown Collection / Unknown 10/06/2025 9:41 AM EST 10/06/2025 9:45 AM EST us Kg Mccollum MD URINE ORDERABLES Final Res ult [facility] [address] [place] [phone], * (ABNORMAL) Drug Screen, Urine (10/06/2025 9:41 AM EST) Amphetamines Screen, Urine Negative Negative 10/06/2025 1:17 PM [facility] Barbiturates Screen, Urine Negative Negative 10/06/2025 1:17 PM [facility] Benzodiazepine Screen, Urine Positive(A) Negative 10/06/2025 1:17 PM [facility] Buprenorphine Screen, Urine Negative Negative 10/06/2025 1:17 PM [facility] Cannabinoids Screen, Urine Negative Negative 10/06/2025 1:17 PM [facility] Cocaine Metabolite Screen, Urine Negative Negative 10/06/2025 1:17 PM [facility] Fentanyl Screen, Urine Negative Negative 10/06/2025 1:17 PM [facility] Methadone Screen, Urine Negative Negative 10/06/2025 1:17 PM [facility] Opiates Screen, Urine Positive(A) Negative 10/06/2025 1:17 PM [facility] Oxycodone Screen, Urine Negative Negative 10/06/2025 1:17 PM [facility] Propoxyphene Screen, Urine Negative Negative 10/06/2025 1:17 PM [facility] Tricyclics Screen Positive(A) Negative 2024 1:17 PM [facility] Comment 10/06/2025 1:17 PM [facility] Comment: The cut-off concentration for a [...] URINE SPECIMEN / Unknown Collection / Unknown 10/06/2025 9:41 AM EST 10/06/2025 9:44 AM EST us Kg Mccollum MD URINE ORDERABLES Final Res ult [facility] [address] [place] [address], [place] * XR Chest 1 VW Portable (10/05/2025 10:24 PM EST) Anatomical Region Laterality Modality Chest Digital Radiogra phy 10/06/2025 9:15 AM EST Impressions 10/06/2025 9:18 AM EST NO ACUTE OR ACTIVE PROCESS DEMONSTRATED. Signed By: Mayank Dumont on 10/06/2025 9:18 AM on [id number] Narrative 10/06/2025 9:18 AM EST EXAMINATION: XR CHEST 1 VW PORTABLE CLINICAL HISTORY: weakness COMPARISON: September 22 radiograph FINDINGS: The lungs are clear with slightly limited inspiration. No pleural effusion or pneumothorax is seen. Cardiac silhouette is mildly enlarged. Aorta is tortuous. Bony structures are intact. There are bilateral spinal rods with fixation screws in the thoracic spine and lower lumbar spine. Procedure Note Mayank Dumont MD - 10/06/2025 EXAMINATION: XR CHEST 1 VW PORTABLE CLINICAL HISTORY: weakness COMPARISON: September 22 radiograph FINDINGS: The lungs are clear with slightly limited inspiration. No pleural effusion or pneumothorax is seen. Cardiac silhouette is mildly enlarged. Aorta is tortuous. Bony structures are intact. There are bilateral spinal rods with fixation screws in the thoracic spine and lower lumbar spine. IMPRESSION: NO ACUTE OR ACTIVE PROCESS DEMONSTRATED. Signed By: Mayank Dumont on 10/06/2025 9:18 AM on [id number] Kg Mccollum MD IMG DIAGNOSTIC IMAGING ORD ERABLES Final Result * (ABNORMAL) CBC and Differential (10/05/2025 10:19 PM EST) WBC 7.18 3.90 - 10.80 K/uL 10/05/2025 10:30 PM [facility] RBC 3.51(L) 4.42 - 5.73 M/uL 10/05/2025 10:30 PM [facility] Hemoglobin 10.9(L) 14.0 - 17.3 g/dL 10/05/2025 10:30 PM [facility] Hematocrit 32.0(L) 40.1 - 51.0 % 10/05/2025 10:30 PM [facility] MCH 31.1 25.6 - 32.2 pg 10/05/2025 10:30 PM [facility] MCHC 34.1 32.0 - 36.0 g/dL 10/05/2025 10:30 PM [facility] MCV 91 83 - 96 fL 10/05/2025 10:30 PM [facility] RDW 13.9 11.5 - 14.0 % 10/05/2025 10:30 PM [facility] Platelet Count 184 154 - 369 K/uL 10/05/2025 10:30 PM [facility] Neutrophil 70.5 % 10/05/2025 10:30 PM [facility] Lymphocyte 18.7 % 10/05/2025 10:30 PM [facility] Monocyte 7.2 % 10/05/2025 10:30 PM [facility] Eosinophil 2.4 % 10/05/2025 10:30 PM [facility] Basophil 1.1 % 10/05/2025 10:30 PM [facility] Immature Granulocyte ([place], Myelo, Promyelocyte) 0.1 % 10/05/2025 10:30 PM [facility] Absolute Neutrophil Count 5.06 1.68 - 7.99 K/uL 10/05/2025 10:30 PM [facility] Absolute Immature Granulocyte ([place], Myelo, Promyelocyte) 0.01 0.00 - 0.09 K/uL 10/05/2025 10:30 PM [facility] Absolute Lymphocyte Count 1.34 0.66 - 4.75 K/uL 10/05/2025 10:30 PM [facility] Absolute Monocyte Count 0.52 0.16 - 1.40 K/uL 10/05/2025 10:30 PM [facility] Absolute Eosinophil Count 0.17 0.00 - 0.60 K/uL 10/05/2025 10:30 PM [facility] Absolute Basophil Count 0.08 0.00 - 0.32 K/uL 10/05/2025 10:30 PM [facility] Blood PERIPHERAL BLOOD SPECIMEN / Unknown Venipuncture / Unknown 10/05/2025 10:19 PM EST 10/05/2025 10:27 PM EST us Kg Mccollum MD LAB BLOOD ORDERABLES Final Result [facility] [address] [place] [address], * TSH (10/05/2025 10:19 PM EST) TSH 3.44 0.30 - 4.50 uIU/mL 10/05/2025 10:58 PM EST [facility] Blood PERIPHERAL BLOOD SPECIMEN / Unknown Venipuncture / Unknown 10/05/2025 10:19 PM EST 10/05/2025 10:27 PM EST Kg Mccollum MD LAB BLOOD ORDERABLES Final Result Performing Organization Address [facility] Co de Phone Number [facility] [address] [place] [phone], [place] * Ethanol (10/05/2025 10:19 PM EST) Alcohol <10 <10 mg/dL 10/05/2025 10:58 PM EST [facility] Blood PERIPHERAL BLOOD SPECIMEN / Unknown Venipuncture / Unknown 10/05/2025 10:19 PM EST 10/05/2025 10:27 PM EST Kg Mccollum MD LAB BLOOD ORDERABLES Final Result Performing Organization Address [facility] Phone Number [facility] [address] [place] [phone], [place] * APTT (10/05/2025 10:19 PM EST) Pathologist [facility] PTT 30 23 - 36 s 10/05/2025 10:56 PM EST [facility] Comment: Unfractionated heparin therapeutic range for hospitalized patients: [id number] 60 to 80 seconds Blood PERIPHERAL BLOOD SPECIMEN / Unknown Venipuncture / Unknown 10/05/2025 10:19 PM EST 10/05/2025 10:27 PM EST Kg Mccollum MD LAB BLOOD ORDERABLES Final Result Performing Organization Address [facility] de Phone Number [facility] [address] [place] [phone], [place] * (ABNORMAL) PT-INR (10/05/2025 10:19 PM EST) Prothrombin Time 16.0(H) 12.1 - 14.6 s 10/05/2025 10:56 PM [facility] INR 1.2 <5.0 10/05/2025 10:56 PM [facility] Blood PERIPHERAL BLOOD SPECIMEN / Unknown Venipuncture / Unknown 10/05/2025 10:19 PM EST 10/05/2025 10:27 PM EST us Kg Mccollum MD LAB BLOOD ORDERABLES Final Result Performing Organization Address [facility]/ZIP Co de Phone Number [facility] [address] [place] [phone], [place] * Troponin (once) (10/05/2025 10:19 PM EST) Pathologist [facility] Troponin T HS 10 <=19 ng/L 10/05/2025 10:58 PM [facility] Blood PERIPHERAL BLOOD SPECIMEN / Unknown Venipuncture / Unknown 10/05/2025 10:19 PM EST 10/05/2025 10:27 PM EST us Kg Mccollum MD LAB BLOOD ORDERABLES Final Result Performing Organization Address [facility] de Phone Number [facility] [address] [place] [phone], [place] * (ABNORMAL) Plasma Toxicology Screen (10/05/2025 10:19 PM EST) Pathologist [facility] Acetaminophen Result,Blood <5(L) 10 - 30 ug/mL 10/05/2025 11:06 PM [facility] Alcohol <10 <10 mg/dL 10/05/2025 11:06 PM [facility] Salicylate Level, Blood <1 <30 mg/dL 10/05/2025 11:06 PM [facility] Blood PERIPHERAL BLOOD SPECIMEN / Unknown Venipuncture / Unknown 10/05/2025 10:19 PM EST 10/05/2025 10:27 PM EST Kg Mccollum MD LAB BLOOD ORDERABLES Final Result Performing Organization Address [facility]/ZIP Co de Phone Number [facility] [address] [place] [phone], [place] * (ABNORMAL) [place] Level (10/05/2025 10:19 PM EST) [place] 0.2(L) 0.5 - 1.5 mmol/L 10/05/2025 10:52 PM [facility] Blood PERIPHERAL BLOOD SPECIMEN / Unknown Venipuncture / Unknown 10/05/2025 10:19 PM EST 10/05/2025 10:27 PM EST Kg Mccollum MD LAB BLOOD ORDERABLES Final Result Performing Organization Address [facility]/ZIP Co de Phone Number [facility] [address] [place] [address], * Magnesium (10/05/2025 10:19 PM EST) Pathologist [facility] Magnesium, Blood 1.8 1.6 - 2.6 mg/dL 10/05/2025 10:58 PM [facility] Blood PERIPHERAL BLOOD SPECIMEN / Unknown Venipuncture / Unknown 10/05/2025 10:19 PM EST 10/05/2025 10:27 PM EST Kg Mccollum MD LAB BLOOD ORDERABLES Final Result Performing Organization Address [facility]/ZIP Co de Phone Number [facility] [address] [place] [phone], * (ABNORMAL) Comprehensive Metabolic Panel (10/05/2025 10:19 PM EST) Pathologist [facility] Sodium 135 135 - 146 mmol/L 10/05/2025 10:58 PM [facility] Potassium 3.5 3.4 - 5.2 mmol/L 10/05/2025 10:58 PM [facility] Comment:Samples tested in se rum may exhibit a higher potassium value than those tested on plasma. Our current range is based on plasma testing. Chloride 102 98 - 110 mmol/L 10/05/2025 10:58 PM [facility] Total CO2/Bicarbonate 21(L) 24 - 32 mmol/L 10/05/2025 10:58 PM [facility] Anion Gap 12 2 - 15 mmol/L 10/05/2025 10:58 PM [facility] BUN 21 7 - 24 mg/dL 10/05/2025 10:58 PM [facility] Creatinine, Blood 1.00 0.60 - 1.30 mg/dL 10/05/2025 10:58 PM [facility] Glucose, Blood 168(H) 50 - 100 mg/dL 10/05/2025 10:58 PM [facility] Calcium 8.5 8.5 - 10.5 mg/dL 10/05/2025 10:58 PM [facility] Total Protein 6.2 6.2 - 8.2 g/dL 10/05/2025 10:58 PM [facility] Albumin, Blood 3.7 3.4 - 5.2 g/dL 10/05/2025 10:58 PM [facility] AST (SGOT) 33 11 - 40 U/L 10/05/2025 10:58 PM [facility] ALT (SGPT) 22 7 - 40 U/L 10/05/2025 10:58 PM [facility] Alkaline Phosphatase 43 40 - 130 U/L 10/05/2025 10:58 PM [facility] Total Bilirubin 0.7 0.2 - 1.2 mg/dL 10/05/2025 10:58 PM [facility] Estimated GFR(CKD-EPI) 82 mL/min/BSA 10/05/2025 10:58 PM [facility] Blood PERIPHERAL BLOOD SPECIMEN / Unknown Venipuncture / Unknown 10/05/2025 10:19 PM EST 10/05/2025 10:27 PM EST us Kg Mccollum MD LAB BLOOD ORDERABLES Final Result [facility] [address] [place] [phone], * Covid/Flu/RSV (Rapid) (10/05/2025 10:15 PM EST) Coronavirus SARS-CoV-2 Negative Negative 10/05/2025 11:12 PM [facility] Influenza A Negative Negative 10/05/2025 11:12 PM EST [facility] Influenza B Negative Negative 10/05/2025 11:12 PM EST [facility] RSV by PCR Negative Negative 10/05/2025 11:12 PM EST [facility] Respiratory NASOPHARYNGEAL SWAB / Unknown Collection / Unknown 10/05/2025 10:15 PM EST 10/05/2025 10:27 PM EST [facility] - 10/05/2025 11:12 PM EST Test performed with [employer] GeneXpert SARS-CoV-2 PCR assay, which has received emergency use authorization (EUA) by the U.S. Food and Drug Administration. Negative results do not preclude SARS-CoV-2 infection and should not be used as the sole basis for treatment or other patient management decisions. us Kg Mccollum MD BODY FLUIDS AND STOOLS ORD ERABLES Final Result [facility] [address] [place] [phone], documented in this encounter Visit Diagnoses Diagnosis Hallucination- Primary Hallucinations Bipolar affective disorder, remission status unspecified (CMS-HCC) PTSD (post-traumatic stress disorder) Posttraumatic stress disorder Weakness Other malaise and fatigue [place] adverse reaction Other psychotropic agents causing adverse effect in therapeutic use documented in this encounter Administered Medications Inactive Administered Medications - up to 3 most recent administrations Medication Order MAR Action Action Date Dose Rate Site 0.9% sodium chloride (NS) BOLUS 1,000 mL 1,000 mL, Intravenous, Once, On Fri10/05/25 at 2211, For 1 dose, STAT, Administer over 1 Hours New Bag 10/05/2025 10:21 PM EST 1,000 mL 1000 mL/hr atorvaSTATin (LIPITOR) tablet 40 mg 40 mg, Oral, At bedtime, First dose on Fri10/06/25 at 2100, Until Discontinued Given 10/06/2025 8:00 PM EST 40 mg dilTIAZem (CARDIZEM CD) 24 hr capsule 240 mg 240 mg, Oral, Every morning, First dose on Fri10/06/25 at 1735, Until Discontinued Given 10/06/2025 6:34 PM EST 240 mg DULoxetine (CYMBALTA) DR capsule 60 mg 60 mg, Oral, 2 times daily, First dose on Fri10/06/25 at 2100, Until Discontinued Given 10/06/2025 8:00 PM EST 60 mg HYDROmorphone (DILAUDID) injection 1 mg 1 mg, Intravenous, Once, 1 dose, On Fri10/06/25 at 1702 Given 10/06/2025 6:40 PM EST 1 mg HYDROmorphone (DILAUDID) tablet 8 mg 8 mg, Oral, Once, 1 dose, On Fri10/06/25 at 0544 Given 10/06/2025 5:45 AM EST 8 mg HYDROmorphone (DILAUDID) tablet 8 mg 8 mg, Oral, Every 8 hours PRN, Starting on Fri10/06/25 at 1734, Until Fri10/06/25 at 2201, severe (7-10) pain Given 10/06/2025 7:41 PM EST 8 mg documented in this encounter Active and Recently Administered Medications Times are shown in EST. Scheduled Medication Order 10/04/2025 10/05/2025 10/06/2025 0.9% sodium chloride (NS) BOLUS 1,000 mL (COMPLETED) 1,000 mL, Intravenous, Once, On Fri10/05/25 at 221, For 1 dose, STAT, Administer over 1 Hours 2220 (New Bag - Provider: Reyna Grey RN)2324 (Stopped - Provider: Reyna Grey RN) apixaban (ELIQUIS) tablet 5 mg 5 mg, Oral, 2 times daily, First dose on Fri10/06/25 at 2100, Indications: NonValvular Atrial Fibrillation 2099 (Canceled Entry - Provider: Automatic Discharge Provider - Comment: Automatically canceled at discontinue of medication order) atorvaSTATin (LIPITOR) tablet 40 mg 40 mg, Oral, At bedtime, First dose on Fri10/06/25 at 2100, Until Discontinued 1999 (Given - Provid er: Antoine Tony RN - Comment: [facility]) dilTIAZem (CARDIZEM CD) 24 hr capsule 240 mg 240 mg, Oral, Every morning, First dose on Fri10/06/25 at 1735, Until Discontinued 183 (Given - Provid er: Nichole Arellano RN) DULoxetine (CYMBALTA) DR capsule 60 mg 60 mg, Oral, 2 times daily, First dose on Emmanuelle 10/06/25 at 2100, Until Discontinued 1999 (Given - Provid er: Antoine Tony RN - Comment: [facility]) HYDROmorphone (DILAUDID) injection 1 mg (COMPLETED) 1 mg, Intravenous, Once, 1 dose, On Emmanuelle 10/06/25 at 1702 1840 (Given - Provid er: Nichole Arellano RN) HYDROmorphone (DILAUDID) tablet 8 mg (COMPLETED) 8 mg, Oral, Once, 1 dose, On Fri10/06/25 at 0544 0545 (Given - Provid er: Reyna Grey RN) QUEtiapine (SEROquel) tablet 200 mg 200 mg, Oral, Daily, First dose on Fri10/07/25 at 0900, Until Discontinued PRN Medication Order 10/04/2025 10/05/2025 10/06/2025 furosemide (LASIX) tablet 40 mg 40 mg, Oral, Daily PRN, Starting on Fri10/06/25 at 1734, Until Fri10/06/25 at 2201, edema/ weight gain/ shortness of breath HYDROmorphone (DILAUDID) tablet 8 mg 8 mg, Oral, Every 8 hours PRN, Starting on Fri10/06/25 at 1734, Until Emmanuelle 10/06/25 at 2201, severe (7-10) pain 194 (Given - Provid er: Antoine Tony RN) documented in this encounter Additional Health Concerns Infection Onset Date Last Indicated Resolved Time Rule-Out Respiratory Virus 10/05/2025 10/05/2025 1 12/05/2024 11:12 PM EST documented as of this encounter Care Teams Machine Adjuster Helper Relationship Specialty Start Date End Date Ilya Gusman MD [address] [place] [address] PCP - General 02/12/24 documented as of this encounter
--- OUTSIDE RECORDS SUMMARY | 2025-10-06 22:19 | XMS_ITS | Encounter Summary ---
[facility] Address [address] [place] [address] Phone Care Team Providers Care Instrument Repairer Steam Plant Name Role Phone Ilya Gusman MD Primary Care Provider [phone] Reason for Visit * Reason Onset Date Comments FYI 05/26/2020 Encounter Details Date Type Department Care Team (Late st Contact Info) Description 05/26/2020 Telephone [facility] - Family Medicine [address] [place] [phone] Luly Crawford, RN Social History Tobacco [...] let MD know he is admitted to [facility], was suppose to be seen for f/u today. FYI sent per pt. Luly Gaming RN, [facility] documented in this encounter Plan of Treatment Upcoming Encounters Date Type Department Care Team (Late st Contact Info) Description 10/10/2025 10:30 AM EST Office Visit [facility] - Internal Medicine [address] [place] [phone] Ilya Gusman MD [address] [place] [phone] Christophe Dailey MD [address] [place] [phone] 01/18/2026 1:00 PM EST Office Visit [facility] [address] [facility] [address] [place] [address] Porsha Marsh, [employer]ONEY POSITION OFFICER [address] [place] [address] 02/22/2026 11:00 AM EDT Office Visit [facility] [address] [place] [phone] Alonso Bae MD [address] [place] [address] [address] [place] [address] 07/17/2026 2:00 PM EDT Office Visit [facility] - Internal Medicine [address] [place] [phone] Ilya Gusman MD [address] [place] [phone] 07/19/2026 11:40 AM EDT Office Visit [facility] [address] [phone] Yesi Perez MD [address] [place] [address] documented as of this encounter Visit Diagnoses [...] documented as of this encounter Care Teams Instrument Repairer Steam Plant Relationship Specialty Start Date End Date Ilya Gusman MD [address] [place] [phone] PCP - General 05/14/17 [facility] 09/01/25 documented as of this encounter
--- OUTSIDE RECORDS SUMMARY | 2025-10-06 22:19 | XMS_ITS | Encounter Summary ---
Author Organization [facility] ystem Address [address] [place] [address] Phone Care Team Providers Care Functional Manager Name Role Phone Ilya Gusman MD Primary Care Provider Encounter Details Date Type Department Care Team (Late st Contact Info) Description 05/29/2020 Scanned Document [facility] - Health Information Department [address] [place] [address] Scan, No Provider Available [address] [facility] [place] [address] <No scans attached> Social History Tobacco Use [...] 10:30 AM EST Office Visit [facility] - Internal Medicine [address] [place] [phone] Ilya Gusman MD [address] [place] [phone] Christophe Dailey MD [address] [place] [phone] 01/18/2026 1:00 PM EST Office Visit [facility] [address] [place] [phone] Porsha Marsh, MARILIA [address] [place] [address] 02/22/2026 11:00 AM EDT Office Visit [facility] [address] [place] [address] [address] [place] [phone] Alonso Bae MD [address] [place] [address] [address] [place] [address] 07/17/2026 2:00 PM EDT Office Visit [facility] - Internal Medicine [address] [place] [phone] Ilya Gusman MD [address] [place] [phone] 07/19/2026 11:40 AM EDT Office Visit [facility] [address] [place] [phone] Yesi Perez MD [address] [place] [address] documented as of this encounter Visit Diagnoses [...] documented as of this encounter Care Teams Functional Manager Relationship Specialty Start Date End Date Ilya Gusman MD [address] [place] [phone] PCP - General 05/14/17 [facility] 09/01/25 documented as of this encounter
--- OUTSIDE RECORDS SUMMARY | 2025-10-06 22:19 | XMS_ITS | Encounter Summary ---
Author Organization [facility] Address [address] [place] [address] Phone Care Team Providers Care Marketing Sales Manager Name Role Phone Ilya Gusman MD Primary Care Provider [phone] Reason for Visit * Reason Onset Date Comments Med Refill 05/29/2020 Encounter Details Date Type Department Care Team (Late st Contact Info) Description 05/29/2020 Refill [facility] - Internal Medicine [address] [place] [phone] Christophe Dailey MD [address] [place] [phone] Med Refill Social History Tobacco Use [...] 10:30 AM EST Office Visit [facility] - Internal Medicine [address] [place] [phone] Ilya Gusman MD [address] [place] [phone] Christophe Dailey MD [address] [place] [phone] 01/18/2026 1:00 PM EST Office Visit [facility] [address] [address] Porsha Marsh, LABORATORY SECRETARY 70 [place] [address] 02/22/2026 11:00 AM EDT Office Visit [facility] [address] [place] [phone] Alonso Bae MD [address] [place] [address] [address] [place] [address] 07/17/2026 2:00 PM EDT Office Visit [facility] - Internal Medicine [address] [place] [phone] Ilya Gusman MD [address] [place] [phone] 07/19/2026 11:40 AM EDT Office Visit [facility] [address] [address] Yesi Perez MD 70 [place] [address] documented as of this encounter Visit Diagnoses [...] as of this encounter Care Teams Marketing Sales Manager Relationship Specialty Start Date End Date Ilya Gusman MD [address] [place] [phone] PCP - General 05/14/17 [facility] 09/01/25 documented as of this encounter
--- OUTSIDE RECORDS SUMMARY | 2025-10-06 22:20 | XMS_ITS | Encounter Summary ---
Author Organization [facility] Address [address] [place] [address] Phone Care Team Providers Care Wood Tool Maker Name Role Phone Ilya Gusman MD Primary Care Provider [phone] Reason for Referral * MRI/CAT/PET Scan - Closed Specialty Diagnoses / Procedures Referred By [place] blankenship Referred To Contact Radiology Diagnoses Right knee pain Procedures MRI knee right without contrast Tc Story MD [address] [address] Phone: tel: fax: Referral ID Status Reason Start Date Expiration Date Visits Re quested Visits Authorized [id number] Closed 11/11/2019 01/10/2020 1 1 Encounter Details Date Type Department Care Team (Late st Contact Info) Description 11/11/2019 Ancillary Orders [facility] - MR Imaging [address] [place] [phone] Tc Story MD [address] [address] Right knee pain Social History [...] Description 10/10/2025 10:30 AM EST Office Visit [facility] - Internal Medicine [address] [place] [phone] Ilya Gusman MD [address] [place] [phone] Christophe Dailey MD [address] [place] [phone] 01/18/2026 1:00 PM EST Office Visit [facility] [address] [address] Porsha Marsh, COMMERCIAL ESCROW OFFICER 70 [place] [address] 02/22/2026 11:00 AM EDT Office Visit [facility] [address] [place] [phone] Alonso Bae MD [facility] [address] [place] [address] 07/17/2026 2:00 PM EDT Office Visit [facility] - Internal Medicine [address] [place] [phone] Ilya Gusman MD [address] [place] [phone] 07/19/2026 11:40 AM EDT Office Visit [facility] [address] [place] [address] [place] [address] Yesi Perez MD 70 [facility] [place] [address] documented as of this encounter Results * [...] as of this encounter Care Teams Wood Tool Maker Relationship Specialty Start Date End Date Ilya Gusman MD [address] [place] [phone] PCP - General 05/14/17 [facility] 09/01/25 documented as of this encounter
--- OUTSIDE RECORDS SUMMARY | 2025-10-06 22:20 | XMS_ITS | Encounter Summary ---
Author Organization [facility] ystem Address [address] [place] [address] Phone Care Team Providers Care Web Graphic Designer Name Role Phone Ilya Gusman MD Primary Care Provider [phone] Encounter Details Date Type Department Care Team (Late Contact Info) Description 11/04/2019 Scanned Document [facility] - Health Information Department [address] [place] [address] Scan, No Provider Available [address] [place] [address] [place] [address] <No scans attached> Social History Tobacco Use [...] Department Care Team (Late Contact Info) Description 10/10/2025 10:30 AM EST Office Visit [facility] - Internal Medicine [address] [place] [phone] Ilya Gusman MD [address] [place] [phone] Christophe Dailey MD [address] [place] [phone] 01/18/2026 1:00 PM EST Office Visit [facility] [address] [place] [phone] Porsha Marsh, VESSEL SPECIALIST [address] [place] [address] 02/22/2026 11:00 AM EDT Office Visit [facility] [address] [place] [address] [address] [place] [phone] Alonso Bae MD [address] [place] [address] [address] [place] [address] 07/17/2026 2:00 PM EDT Office Visit [facility] - Internal Medicine [address] [place] [phone] Ilya Gusman MD [address] [place] [phone] 07/19/2026 11:40 AM EDT Office Visit [facility] [address] [place] [address] Yesi Perez MD [address] [place] [address] documented as of this encounter Visit Diagnoses [...] documented as of this encounter Care Teams Web Graphic Designer Relationship Specialty Start Date End Date Ilya Gusman MD [address] [place] [phone] PCP - General 05/14/17 [facility] 09/01/25 documented as of this encounter
--- OUTSIDE RECORDS SUMMARY | 2025-10-06 22:20 | XMS_ITS | Encounter Summary ---
Author Organization [facility] Address [address] [place] [address] Phone Care Team Providers Care Fruit Grower Name Role Phone Ilya Gusman MD Primary Care Provider [phone] Reason for Visit * Reason Comments Med Refill Encounter Details Date Type Department Care Team (Late st Contact Info) Description 01/15/2020 Refill [facility] - Internal Medicine [address] [place] [phone] Ilya Gusman MD [address] [place] [phone] Med Refill Social History Tobacco Use [...] 11-08-19 qty#30 w/ one refill Ifrah Wilhelm, Family Services Manager Refill Team documented in this encounter Plan of Treatment Upcoming Encounters Date Type Department Care Team (Late st Contact Info) Description 10/10/2025 10:30 AM EST Office Visit [facility] - Internal Medicine [address] [place] [phone] Ilya Gusman MD [address] [place] [phone] Christophe Dailey MD [address] [place] [phone] 01/18/2026 1:00 PM EST Office Visit [facility] [address] [address] Porsha Marsh, CORPORATE TRAVEL AGENT 70 [place] [address] 02/22/2026 11:00 AM EDT Office Visit [facility] [address] [facility] [address] [place] [phone] Alonso Bae MD [address] [facility] [address] [place] [address] 07/17/2026 2:00 PM EDT Office Visit [facility] - Internal Medicine [address] [place] [phone] Ilya Gusman MD 143 [place] [phone] 07/19/2026 11:40 AM EDT Office Visit [facility] [address] [facility] 1 [place] [address] Yesi Perez MD 70 [place] [address] documented as of this encounter Visit Diagnoses [...] documented as of this encounter Care Teams Fruit Grower Relationship Specialty Start Date End Date Ilya Gusman MD [address] [place] [phone] PCP - General 05/14/17 [facility] 09/01/25 documented as of this encounter
--- OUTSIDE RECORDS SUMMARY | 2025-10-06 22:20 | XMS_ITS | Encounter Summary ---
Author Organization [facility] [address] [place] [address] Care Team Providers Care Manager Park Name Role Phone Tc Story MD Unavailable [phone] Ilya Gusman MD Primary Care Provider [phone] Encounter Details Date Type Department Care Team (Late st Contact Info) Description 06/13/2021 Lab Requisition [address] [phone] Michele Dawkins CRNP [address] [place] [address] Illness, unspecified Social History Tobacco Use Types [...] unspecified documented in this encounter Results * [place] level (06/13/2021 6:10 AM EDT) [place] 0.70 0.50 - 1.30 mmol/L 06/13/2021 11:53 AM EDT [facility] Blood specimen (specimen) Venipuncture / Unknown 06/13/2021 6:10 AM EDT 06/13/2021 7:26 AM EDT Michele Hailee SANTOSNP LAB BLOOD ORDERABLES Final Res ult Performing Organization Address [facility] de Phone Number [facility] [address] [place] [address] * (ABNORMAL) Vitamin D 25 Hydroxy (06/13/2021 6:10 AM EDT) Vit D, 25-Hydroxy 17.0(L) 30.0 - 100.0 ng/mL 06/13/2021 7:58 AM EDT [facility] Blood specimen (specimen) Venipuncture / Unknown 06/13/2021 6:10 AM EDT 06/13/2021 7:26 AM EDT Narrative [facility] - 06/13/2021 7:58 AM EDT Vitamin D Reference Ranges: Normal 30-100 ng/mL (Pediatric 20-100) Insufficient 20-30 ng/mL Deficient <20 ng/mL Potentially Toxic >150 ng/mL Reference range has been changed as of 08/22/2020. Michele E Mariza DIE CAST ENGINEER LAB BLOOD ORDERABLES Final Res ult Performing Organization Address [facility] de Phone Number [facility] [address] [place] [phone] * Vitamin B12 (06/13/2021 6:10 AM EDT) Vitamin B12 868 211 - 911 pg/mL 06/13/2021 12:08 PM EDT [facility] Blood specimen (specimen) Venipuncture / Unknown 06/13/2021 6:10 AM EDT 06/13/2021 7:26 AM EDT Narrative [facility] - 06/13/2021 12:08 PM EDT Reference range has been changed as of 08/22/2020. us Michele Hailee SANTOSNP LAB BLOOD ORDERABLES Final Res ult Performing Organization Address [facility] Co de Phone Number [facility] [address] [place] [address] * (ABNORMAL) T4, Free (06/13/2021 6:10 AM EDT) Free T4 0.79(L) 0.89 - 1.76 ng/dL 06/13/2021 7:58 AM EDT [facility] Blood specimen (specimen) Venipuncture / Unknown 06/13/2021 6:10 AM EDT 06/13/2021 7:26 AM EDT us Michele E Mariza DIE CAST ENGINEER LAB BLOOD ORDERABLES Final Res ult Performing Organization Address City/[facility] Co de Phone Number [facility] [address] [place] [phone] * TSH Without Reflex (06/13/2021 6:10 AM EDT) TSH 2.542 0.340 - 4.820 uIU/mL 06/13/2021 7:58 AM EDT [facility] Blood specimen (specimen) Venipuncture / Unknown 06/13/2021 6:10 AM EDT 06/13/2021 7:26 AM EDT Narrative [facility] - 06/13/2021 7:58 AM EDT Reference range has been changed as of 08/22/2020. us Michele WEBSTER LAB BLOOD ORDERABLES Final Res ult [facility] [address] [place] [address] documented in this encounter Visit Diagnoses Diagnosis Illness, unspecified documented in this encounter Care Teams Manager Park Relationship Specialty Start Date End Date Ilya Gusman MD [address] [place] [phone] PCP - General Internal Medicine 03/01/19 Tc Story MD [address] [place] [phone] Physician 04/02/17 documented as of this encounter
--- OUTSIDE RECORDS SUMMARY | 2025-10-06 22:20 | XMS_ITS | Encounter Summary ---
Author Organization [facility] Address [address] [place] [address] Phone Care Team Providers Care Internet Webmaster Name Role Phone Ilya Gusman MD Primary Care Provider [phone] Encounter Details Date Type Department Care Team (Late st Contact Info) Description 06/07/2020 Orders Only [facility] - Internal Medicine [address] [place] [phone] Christophe Dailey MD [address] [place] [phone] Social History Tobacco Use Types Packs/Day [...] Description 10/10/2025 10:30 AM EST Office Visit [facility] - Internal Medicine [address] [place] [phone] Ilya Gusman MD [address] [place] [phone] Christophe Dailey MD [address] [place] [phone] 01/18/2026 1:00 PM EST Office Visit [facility] [address] [place] [phone] Porsha Marsh, COLLEGE OR UNIVERSITY FACULTY MEMBER 70 [place] [address] 02/22/2026 11:00 AM EDT Office Visit [facility] [address] [place] [address] [address] [place] [phone] Alonso Bae MD [address] [place] [address] [address] [place] [address] 07/17/2026 2:00 PM EDT Office Visit [facility] - Internal Medicine [address] [place] [phone] Ilya Gusman MD [address] [place] [phone] 07/19/2026 11:40 AM EDT Office Visit [facility] [address] [place] [address] Yesi Perez MD 70 [place] [address] documented as of this encounter Visit Diagnoses [...] as of this encounter Care Teams Internet Webmaster Relationship Specialty Start Date End Date Ilya Gusman MD [address] [place] [phone] PCP - General 05/14/17 [facility] 09/01/25 documented as of this encounter
--- OUTSIDE RECORDS SUMMARY | 2025-10-06 22:20 | XMS_ITS | Encounter Summary ---
Author Organization [facility] [address] [place] [address] Care Team Providers Care Die Operator Name Role Phone Tc Story MD Unavailable [phone] Ilya Gusman MD Primary Care Provider [phone] Encounter Details Date Type Department Care Team (Late st Contact Info) Description 03/05/2019 Lab Requisition [facility] [address] [place] [phone] Tc Gasca MD [address] [place] [address] Illness Social History Tobacco Use Types Packs/Day [...] - 147 mEq/L 03/05/2019 9:35 AM T [facility] Potassium 3.7 3.5 - 5.4 mEq/L 03/05/2019 9:35 AM EDT [facility] Chloride 109(H) 96 - 107 mEq/L 03/05/2019 9:35 AM EDT [facility] CO2 25 24 - 34 mEq/L 03/05/2019 9:35 AM T [facility] Anion Gap 10 4 - 15 mEq/L 03/05/2019 9:35 AM T [facility] Glucose 100 70 - 100 mg/dL 03/05/2019 9:35 AM T [facility] Creatinine 0.96 0.60 - 1.50 mg/dL 03/05/2019 9:35 AM [facility] eGFR >60 60 - 115 mL/min 03/05/2019 9:35 AM [facility] BUN 14 6 - 26 mg/dL 03/05/2019 9:35 AM T [facility] Calcium 8.7 8.7 - 10.5 mg/dL 03/05/2019 9:35 AM [facility] Total Protein 5.9(L) 6.4 - 8.6 g/dL 03/05/2019 9:35 AM [facility] Albumin 3.8 3.4 - 4.8 g/dL 03/05/2019 9:35 AM [facility] A/G Ratio 1.8 1.0 - 2.3 03/05/2019 9:35 AM [facility] Total Bilirubin 0.6 0.2 - 1.2 mg/dL 03/05/2019 9:35 AM [facility] AST 28 0 - 40 U/L 03/05/2019 9:35 AM T [facility] Alkaline Phosphatase 65 40 - 150 IU/L 03/05/2019 9:35 AM [facility] ALT 28 0 - 45 U/L 03/05/2019 9:35 AM [facility] Blood specimen (specimen) Venipuncture / Unknown 03/05/2019 7:18 AM EDT 03/05/2019 8:38 AM EDT us Tc Gasca MD LAB BLOOD ORDERABLES Final Result Performing Organization Address City/State/[facility] Co de Phone Number [facility] [address] [place], [place] documented in this encounter Visit Diagnoses Diagnosis Illness Other unknown and unspecified cause of morbidity or mortality documented in this encounter Care Teams Die Operator Relationship Specialty Start Date End Date Ilya Gusman MD [address] [place] [phone] PCP - General Internal Medicine 03/01/19 Tc Story MD [address] [place] [phone] Physician 04/02/17 documented as of this encounter
--- OUTSIDE RECORDS SUMMARY | 2025-10-06 22:20 | XMS_ITS | Clinical Summary ---
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 90 tablet 1 09/05/20 25 Active lithium 150 MG capsule Take 150 mg by mouth nightly 10/03/20 25 Active Naloxone HCl (NARCAN) 4 MG/0.1ML liquid SMARTSI [place](s) Both Nares PRN Active traZODone (DESYREL) 50 MG tablet Take 50 mg by mouth nightly as needed 09/30/20 25 Active tiZANidine (ZANAFLEX) 4 MG tablet Take 1 tablet (4 mg) by mouth every eight hours as needed for muscle spasms Use caution driving. May be sedating 30 tablet 10/05/20 Active HYDROmorphone (DILAUDID) 8 MG tabletIndicatio ns:Chronic low back pain, unspecified back pain laterality, unspecified whether sciatica present,Chronic pain syndrome Take 1 tablet (8 mg) by mouth every eight hours as needed (for pain) Dx code M54.50 G89.4 Fill date 10.07.25 84 tablet 10/07/20 25 Active oxyCODONE (ROXICODONE) 5 MG immediate release tabletIndicatio ns:Dupuytren contracture of right hand Take 1 tablet (5 mg) by mouth every six hours as needed (for pain) 10 tablet 08/08/20 25 025 Discontinued HYDROmorphone (DILAUDID) 8 MG tabletIndicatio ns:Chronic low back pain, unspecified back pain laterality, unspecified whether sciatica present,Chronic pain syndrome Take 1 tablet (8 mg) by mouth every eight hours as needed (for pain) Dx code M54.50 G89.4 Fill date 08/12/25 84 tablet 08/12/20 25 025 Discontinued(R eorder) doxycycline (VIBRAMYCIN) 100 MG capsuleIndicati ons:Acute bronchitis, unspecified organism Take 1 capsule (100 mg) by mouth two times a day for 7 days 14 capsule 08/30/20 25 025 HYDROmorphone (DILAUDID) 8 MG tabletIndicatio ns:Chronic low back pain, unspecified back pain laterality, unspecified whether sciatica present,Chronic pain syndrome Take 1 tablet (8 mg) by mouth every eight hours as needed (for pain) Dx code M54.50 G89.4 Fill date 09/09/25 84 tablet 09/09/20 025 Discontinued(R eorder) Active Problems Problem Noted Date Diagnosed Date [...] nonepileptic seizure 06/02/2017 Overview (01/15/2019): Evaluated at [facility] in 2016. Essential hypertension 05/30/2017 [...] depression without psychotic featur es 12/06/2016 Overview (10/05/2025): S/p hospitalization [place] 09/2025 for SI. Li and traazodone added to cymbalta and seroquel Followed by Dr. 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 [place] to be severely depressed, tx to psych for dual diagnosis Alcohol dependence, episodic 09/25/2007 10/02/2019 Depression 01/16/2007 09/16/2018 Assessment & Plan (05/16/2018 1:54 PM EDT): Continue Lexapro 20 mg oral daily COPD (chronic obstructive pulmonary disease) 05/20/2025 Encounters Date Type Department Care Team Description 10/06/2025 Refill [facility] - Internal Medicine [address] [place] [phone] Ilya Gusman MD Med Refill 10/06/2025 Patient Outreach [facility] - Care Management [address] [place] [phone] Deion Woods 10/05/2025 11:00 AM EST Office Visit [facility] [address] [place] [phone] Ilya Gusman MD Severe major depression without psychotic features (CMS/HCC) (Primary Dx); Posttraumatic stress disorder; Suicidal ideation; Acute bilateral low back pain without sciatica; Muscle spasm 10/05/2025 Telephone [facility] [address] [place] [phone] Ilya Gusman MD 2-memory/cognitive concerns 10/04/2025 Orders Only [facility] Information Department [address] [place] [phone] Scan, No Provider Available 09/30/2025 Scanned Document [address] [address] Scan, No Provider Available <No scans attached> 09/24/2025 Scanned Document [facility] Information [address] [address] Scan, No Provider Available <No scans attached> 09/23/2025 Patient Outreach [address] [phone] Deion Woods 09/22/2025 Scanned Document [address] [address] Scan, No Provider Available <No scans attached> 09/10/2025 Refill [facility] [address] [place] [phone] Ilya Gusman MD Med Refill 09/07/2025 Orders Only [address] [address] Ilya Gusman MD 09/07/2025 Patient Outreach [address] [phone] Leobardo Gongora Post Hospitalization Follow Up 09/06/2025 Refill [facility] [address] [place] [phone] Christophe Dailey MD Med Refill 09/03/2025 Refill [facility] [address] [place] [phone] Ilya Gusman MD Med Refill 09/02/2025 Orders Only [facility] Information Department [address] [place] [phone] Scan, No Provider Available 08/30/2025 10:46 AM EDT - 08/30/2025 11:59 PM EDT Hospital Encounter [facility] - Radiology [address] [place] [address] Nito Perez, MARILIA Acute bronchitis, unspecified organism Discharge Disposition: Home / Self Care 08/30/2025 10:15 AM EDT Office Visit [facility] - Urgent Care [address] [place] [phone] Nito Perez, GENERAL MAINTENANCE ENGINEER Acute bronchitis, unspecified organism (Primary Dx) 08/24/2025 11:00 AM EDT Office Visit [facility] [address] [place] [address] [address] [place] [address] Alonso Bae MD Prostate cancer ([facility]) (Primary Dx) 08/19/2025 Scanned Document [facility] Information Department [address] [place] [phone] Scan, No Provider Available <No scans attached> 08/18/2025 Patient Outreach [address] [phone] Deion Woods Post Hospitalization Follow Up 08/17/2025 Refill [facility] [address] [place] [phone] Ilya Gusman MD Med Refill 08/17/2025 Patient Outreach [address] [phone] Deion Woods 08/16/2025 Scanned Document [facility] Health Information Department [address] [place] [id number] Scan, No Provider Available <No scans attached> 08/16/2025 Patient Outreach [address] [phone] Deion Woods Population Health Elevator Adjuster 08/09/2025 Refill [facility] [address] [place] [phone] Christophe Dailey MD Med Refill 08/08/2025 9:40 AM EDT Anesthesia Event [facility] [address] [place] [address] William Edwards MD Canning, Mark D., MD 08/08/2025 9:00 AM EDT - 08/08/2025 10:23 AM EDT Surgery [address] [phone] Tacho Faye MD RIGHT HAND FASCIECTOMY WITH EXCISION DUPUYTREN'S CONTRACTURE INCLUDING SMALL FINGER PROXIMAL INTERPHALANGEAL JOINT AND FIRST WEBSPACE AND FIRST METACARPAL PHALANGEAL JOINT [30069 (CPT )] 08/08/2025 6:59 AM EDT - 08/08/2025 11:59 PM EDT Hospital Encounter [facility] - Radiology External Films [address] [place] [address] Micha Hatch MD Discharge Disposition: Home / Self Care 08/08/2025 6:56 AM EDT - 08/08/2025 11:53 AM EDT Hospital Encounter [facility] [address] [place] [address] Tacho Faye MD Dupuytren contracture of right hand (Primary Dx); Dupuytren contracture of left hand Discharge Disposition: Home / Self Care 08/08/2025 Travel 08/08/2025 Procedure Pass [facility] [address] [place] [address] 08/05/2025 12:45 PM EDT - 08/05/2025 11:59 PM EDT Hospital Encounter [facility] - Radiology [address] [place] [phone] Nito Perez, MARILIA Right anterior shoulder pain Discharge Disposition: Home / Self Care 08/05/2025 12:30 PM EDT Office Visit [facility] [address] [place] [phone] Nito Perez, MARILIA Right anterior shoulder pain (Primary Dx); Tremor of both hands 08/05/2025 Telephone [facility] [address] [place] [phone] Ilya Gusman MD Shoulder Injury; Tremors 08/04/2025 Telephone [facility] [address] [place] [address] Brianna Rosario RN Anticoagulation (Med hold for 48 hours ) 2025 11:00 AM EDT Pre-Admission Testing [facility] [address] [place] [phone] 2025 Travel 08/02/2025 4:20 PM EDT Office Visit [facility] [address] [place] [phone] Adrienne Ortega NP Hospital discharge follow-up (Primary Dx); Chronic heart failure with preserved ejection fraction (CMS/HCC); Essential hypertension; Type 2 diabetes mellitus without complication, without long-term current use of insulin (CMS/HCC); Normocytic anemia; History of atrial fibrillation; Dupuytren's contracture 07/29/2025 Refill [facility] [address] [place] [phone] Shelli Benoit MD Med Refill 07/27/2025 Patient Outreach [facility] Care Management [address] [place] [phone] Deion Woods Post Hospitalization Follow Up 07/26/2025 Patient Outreach [facility] - Care Management [address] [place] [phone] Deion Woods Post Hospitalization Follow Up 07/22/2025 Scanned Document [facility] Health Information Department [address] [place] [id number] Scan, No Provider Available <No scans attached> 07/21/2025 Scanned Document [facility] Information Department [address] [place] [phone] Scan, No Provider Available <No scans attached> 07/18/2025 11:45 AM EDT Lab [facility] - Lab Outpatient Draw [address] [place] [phone] Prostate cancer (CMS/HCC); History of pulmonary embolus (PE) 07/18/2025 10:40 AM EDT Office Visit [facility] [address] [address] Porsha Marsh CNP History of atrial fibrillation (Primary Dx); Essential hypertension; History of pulmonary embolus (PE) 07/14/2025 9:40 AM EDT Office Visit [facility] Medicine [address] [place] [phone] Flaquita Paige NP Essential hypertension (Primary Dx); Colitis 07/13/2025 Refill [facility] [address] [place] [phone] Christophe Dailey MD Med Refill 07/12/2025 Patient Outreach [address] [phone] Leobardo Gongora Post Hospitalization Follow Up 07/11/2025 Patient Outreach [address] [phone] Leobardo Gongora Post Hospitalization Follow Up 07/08/2025 Scanned Document [facility] Health Information Department [address] [place] [address] Scan, No Provider Available <No scans attached> 07/08/2025 Telephone [facility] [address] [place] [phone] Ilya Gusman MD 07/07/2025 Scanned Document [facility] Information Department [address] [place] [phone] Scan, No Provider Available <No scans attached> 07/06/2025 Orders Only [facility] Information Department [address] [place] [phone] Ilya Gusman MD 07/06/2025 Patient Outreach [address] [phone] Deion Woods Post Hospitalization Follow Up 07/06/2025 Refill [facility] [address] [place] [address] Christophe Dailey MD Med Refill from Last 3 Months Immunizations Immunization Administration [...] Pulse 105 10/05/2025 10:50 AM EST Temperature 36.8 C (98.3 F) 08/30/2025 10:22 AM EDT Respiratory Rate 23 08/08/2025 11:05 AM EDT Oxygen Saturation 97% 10/05/2025 10:50 AM EST Inhaled Oxygen Concentration - - Weight 85.3 kg (188 lb) 10/05/2025 10:50 AM EST Height 175.3 cm (5' 9 ) 10/05/2025 10:50 AM EST Body Mass Index 27.76 10/05/2025 10:50 AM EST Plan of Treatment Upcoming Encounters Date Type Department Care Team (Late st Contact Info) Description 10/10/2025 10:30 AM EST Office Visit [facility] [address] [place] [phone] Ilya Gusman MD [address] [place] [phone] Christophe Dailey MD [address] [place] [phone] 01/18/2026 1:00 PM EST Office Visit [facility] [address] [place] [phone] Porsha Marsh, GENERAL MAINTENANCE ENGINEER [address] [place] [address] 02/22/2026 11:00 AM EDT Office Visit [facility] [address] [place] [address] [address] [place] [phone] Alonso Bae MD [address] [place] [address] [address] [place] [address] 07/17/2026 2:00 PM EDT Office Visit [facility] [address] [place] [phone] Ilya Gusman MD [address] [place] [phone] 07/19/2026 11:40 AM EDT Office Visit [facility] [address] [place] [phone] Yesi Perez MD [address] [place] [address] Health Maintenance Due Date Last Done Comments [facility] Topic Shingrix (2 of 2) 12/27/2019 11/01/2019 [facility] Topic Pneumococcal Vaccine (HEDIS/Adult) (3 of 3 - PCV20 or PCV21) 01/15/2024 01/15/2019, 03/27/2018, 01/15/2013 [facility] Topic Depression Remission 06/04/2025 COVID-19 Vaccine ( season) 2025 08/21/2024, 09/23/2023, 09/05/2022, Additional history exists [facility] Topic Influenza (Flu) Seasonal (#1) 2025 08/21/2024, 08/05/2023, 08/05/2023, Additional history exists [facility] Topic Microalbumin Urine 02/04/2026 02/04/2025, 12/26/2023, 12/14/2021, Additional history exists [facility] Topic A1C Diabetes 03/23/20262024, 09/23/2025, 08/17/2025, Additional history exists [facility] Topic PSA 07/18/2026 07/18/2025, 01/2025, 02/18/2025, Additional history exists [facility] Topic Lipid Profile 08/17/202608/17, 03/26/2025, 03/10/2025, Additional history exists [facility] Diabetic Ophthalmology Exam 09/01/2027 09/01/2025, 06/23/2024, 06/23/2024, Additional history exists [facility] Topic Colonoscopy 07/21/2028 025, 05/11/2024, 05/11/2024, Additional history exists [facility] Topic DTaP/TDAP/TD (4 - Td or Tdap) 06/09/2029 06/09/2019, 05/17/2016, 02/12/2007 [facility] Topic Hepatitis C Screening Completed 06/05/2020 [facility] Topic Advanced Planning Documents Completed 10/06/2025 [facility] AMB RSV (under 20 months) Aged Out No longer eligible based on patient's age to complete this topic [facility] Topic HIB Vaccines Aged Out No longer eligible based on patient's age to complete this topic Medical Devices Implanted Type Area Hinging Machine Operator Device Identifier Shelf Expiration Date Model / Serial / Lot \[id number] Implanted:Qty : 1 on 06/25/2017 by Alejandor Lion MD at [facility] Explanted:at [facility] (Quantity not on file) N/A: Spine Lumbar NUVASIVE 10/26/2021 [id number] / [id number] / Description:OSTEOCEL,[id number] PRO MEDIUM Screw,[id number] 5,Shank,8.5x5 5 Implanted:Qty : 1 on 06/25/2017 by Alejandro Lion MD at [facility] N/A: Spine Lumbar NUVASIVE [id number] / [id number] / Screw,[id number] 1 Tulip Reline - [id number] Implanted:Qty : 2 on 06/25/2017 by Alejandro Lion MD at [facility] N/A: Spine Lumbar NUVASIVE 06/25/2017 [id number] / / N/A Screw,[id number] 0 Reline Lock - [id number] Implanted:Qty : 4 on 06/25/2017 by Alejandro Lion MD at [facility] N/A: Spine Lumbar NUVASIVE 06/25/2017 [id number] / / N/A Oblique,Tlif [id number] 4deg - [id number] Implanted:Qty : 1 on 06/25/2017 by Alejandro Lion MD at [facility] N/A: Spine Lumbar NUVASIVE 06/25/2017 [id number] / / Screw,[id number] 5,Reline 8.5x55mm - [id number] Implanted:Qty : 1 on 06/25/2017 by Alejandro Lion MD at [facility] N/A: Spine Lumbar NUVASIVE 06/25/2017 [id number] / / Screw,[id number] 0 Reline [id number] - [id number] Implanted:Qty : 1 on 06/25/2017 by Alejandro Lion MD at [facility] N/A: Spine Lumbar NUVASIVE 06/25/2017 [id number] / / Holden,[id number] Prebent 40mm - [id number] Implanted:Qty : 1 on 06/25/2017 by Alejandro Lion MD at [facility] N/A: Spine Lumbar NUVASIVE 06/25/2017 [id number] / / Holden,[id number] 5.5x50 Lordotic Implanted:Qty : 1 on 06/25/2017 by Alejandro Lion MD at [facility] N/A: Spine Lumbar NUVASIVE [id number] / [id number] / Screw,[id number] 0,Shank 8.5x50 Implanted:Qty : 1 on 06/25/2017 by Alejandro Lion MD at [facility] N/A: Spine Lumbar NUVASIVE [id number] / [id number] / Erie,[id number] Quick Super Plus - [id number] Implanted:Qty : 2 on 07/29/2018 by Tc Story MD at [facility] 07/24/2019 [id number] / / [id number] Erie,[id number] Quick Super Plus - [id number] Implanted:Qty : 1 on 07/29/2018 by Tc Story MD at [facility] [id number] 08/23/2019 [id number] / / [id number] Screw,Polyaxi al Reline 4.5x40m - [id number] Implanted:Qty : 4 on 08/09/2019 by Alejandro Lion MD at [facility] [id number] / / Screw,Polyaxi al Reline 4.5x45m - [id number] Implanted:Qty : 3 on 08/09/2019 by Alejandro Lion MD at [facility] [id number] / / Screw,Polyaxi al Reline 4.5x50m - [id number] Implanted:Qty : 1 on 08/09/2019 by Alejandro Lion MD at [facility] [id number] / / Holden,Lordotic Reline 5.0o467ie - [id number] Implanted:Qty : 2 on 08/09/2019 by Alejandro Lion MD at [facility] [id number] / / Screw,[id number] Reline Lock - [id number] Implanted:Qty : 8 on 08/09/2019 by Alejandro Lion MD at [facility] [id number] / / Procedures Procedure Name Priority Date/Time Associated Diagnosis Comments ECG 12-LEAD Today 09/26/2025 9:28 AM EST XR CHEST 2 VW Routine 09/25/2025 10:13 AM EST HM DIABETES EYE EXAM Routine 09/01/2025 3:14 PM EDT XR CHEST 2 VW STAT 08/30/2025 10:58 AM EDT Acute bronchitis, unspecified organism POLYSOMNOGRAM Routine 08/26/2025 12:11 PM EDT POCT GLUCOSE METER Routine 08/08/2025 11 :03 AM EDT TISSUE EXAM Routine 08/08/2025 9:48 AM EDT OH FASCT PRTL PALMAR 1 DGT PROX IPHAL [...] without long-term current use of insulin (CMS/HCC) HM COLONOSCOPY Routine 05/11/2024 11:59 AM EDT HEPATITIS C ANTIBODY W/ REFL TO HCV RNA, QN, PCR Routine 06/05/2020 8:10 AM EDT Alcohol use disorder, severe, dependence (CMS/HCC) from Last 3 Months or Most Recently Relevant to Health Maintenance Results * ECG (09/26/2025 9:28 AM EST) Only the most recent of2 resultswithin the time period is included. us No Provider Available Scan ECG ORDERABLES Final Result * X-ray chest 2 views (09/25/2025 10:13 AM EST) Only the most recent of2 resultswithin the time period is included. Anatomical Region Laterality Modality Body Radiographic Carmelina ging us No Provider Available Scan IMG XR PROCEDURES Fin al Result * Hm Diabetes Eye Exam (09/01/2025 3:14 PM EDT) us No Provider Available Scan HEALTH MAINTENANCE Fi nal Result * Polysomnography (08/26/2025 12:11 PM EDT) us Ilya Gusman MD [facility] ORDERABLES Final R esult * POCT Glucose Meter (08/08/2025 11:03 AM EDT) POC Glucose 93 70 - 100 mg/dL 08/08/2025 11:05 AM EDT [facility] Comment:@Nail Welter:Pam Lin Blood 08/08/2025 11:0 3 AM EDT 08/08/2025 11:05 AM EDT us Tacho Faye MD LAB POCT ORDERABLES - DEVICE Final Result [facility] [address] [place] [address], [place] [phone] * Routine Pathology Tissue Exam (08/08/2025 9:48 AM EDT) Case Report Surgical Pathology Case: [id number] Authorizing Provider: Tacho Faye MD Collected: 08/08/2025 0919 Ordering Location: [facility] Surgery Received: 08/08/2025 1320 Pathologist: Winifred Cosme MD Specimen: Hand, RIGHT HAND DUPUYTRENS 08/10/2025 2:15 PM EDT [facility] Pre-Operative Diagnosis Right hand dupuytren's contracture 08/10/2025 2:15 PM EDT [facility] Post-Operative Diagnosis Right hand dupuytren's contracture 08/10/2025 2:15 PM EDT [facility] Procedures Right hand fasciectomy with excision dupuytren's contracture including small finger proximal interphalangeal joint and first webspace and first metacarpal phalangeal joint - right 08/10/2025 2:15 PM EDT [facility] Final Diagnosis SOFT TISSUE, RIGHT HAND, EXCISION: FIBROADIPOSE TISSUE WITH CELLULAR FIBROBLASTIC PROLIFERATION, CONSISTENT WITH PALMAR FIBROMATOSIS (DUPUYTREN'S CONTRACTURE). 08/10/2025 2:15 PM EDT [facility] at 1415 EDT Gross Description A. Hand. Received in formalin labeled Adolfo Zaragoza and right hand Dupuytren's is a 2.5 x 2.2 x 0.9 cm aggregate of irregular pink-white fibrous tissue fragments admixed with pink-kaur soft tissue. Sectioning reveals an unremarkable cut surface. No discrete lesions or masses grossly identified. Telephone Operator sections are submitted in A1. AK 08/08/25 08/10/2025 2:15 PM EDT [facility] Tissue (Hand) 08/08/2025 9:4 8 AM EDT 08/08/2025 1:20 PM EDT us Tacho Faye MD LAB PATHOLOGY/CYTOLOGY ORDERA BLES Final Result [facility] [address] [place] [address], * Peripheral Block (08/08/2025 8:00 AM EDT) [...] Injection Technique: Single-shot Patient Position: Supine Monitoring: hospital monitor, continuous pulse ox, continuous capnometry and [...] No evidence for acute osseous process. EDT Nito Perez [facility] IMG XR PROCEDURES Final Resu lt * (ABNORMAL) CBC (07/18/2025 11:42 AM EDT) WBC 5.5 4.5 - 10.8 10*3 l 07/18/2025 2:38 PM EDT [facility] RBC 3.51(L) 4.70 - 6.10 10*6 l 07/18/2025 2:38 PM EDT [facility] Hemoglobin 10.5(L) 14.0 - 18.0 g/dL 07/18/2025 2:38 PM EDT [facility] Hematocrit 32.1(L) 42.0 - 52.0 % 07/18/2025 2:38 PM EDT [facility] MCV 92 80 - 95 fL 07/18/2025 2:38 PM EDT [facility] MCH 29.9 25.4 - 39.0 pg 07/18/2025 2:38 PM EDT [facility] MCHC 32.7 31.0 - 37.0 g/dL 07/18/2025 2:38 PM EDT [facility] RDW 17.1(H) 11.5 - 14.5 % 07/18/2025 2:38 PM EDT [facility] Platelets 252 150 - 450 10*3 l 07/18/2025 2:38 PM EDT [facility] MPV 9.8 7.0 - 11.0 fL 07/18/2025 2:38 PM EDT [facility] Anisocytosis Present(A) None Seen 07/18/2025 2:38 PM EDT [facility] Blood Venous blood / Unknown Venipuncture / Unknown 07/18/2025 11:42 AM EDT 07/18/2025 2:33 PM EDT Porsha Marsh CNP LAB BLOOD ORDERABLES Final Result [facility] [address] [place] [address], [place] [phone] * PSA (07/18/2025 11:42 AM EDT) PSA <=0.1 0.0 - 4.0 ng/mL 07/18/2025 3:09 PM EDT [facility] Comment:This test is perform ed on the Adan Brianda 8000 analyzer and is an Immunoassay methodology. Patient results determined by assays using different manufacterers for methods may not be comparable. Blood Venous blood / Unknown Venipuncture / Unknown 07/18/2025 11:42 AM EDT 07/18/2025 2:32 PM EDT Alonso Bae MD LAB BLOOD ORDERABLES Fin al Result [facility] [address] [place] [address], [place] [phone] * (ABNORMAL) BASIC METABOLIC PANEL (07/18/2025 11:42 AM EDT) Glucose 119(H) 70 - 100 mg/dL 07/18/2025 3:02 PM EDT [facility] BUN 20(H) 6 - 19 mg/dL 07/18/2025 3:02 PM EDT [facility] Creatinine 0.9 0.4 - 1.2 mg/dL 07/18/2025 3:02 PM EDT [facility] eGFR >60.00 >60.00 mL/min/1.7 3m*2 07/18/2025 3:02 PM EDT [facility] Sodium 137 135 - 145 mmol/L 07/18/2025 3:02 PM EDT [facility] Potassium 4.4 3.4 - 5.1 mmol/L 07/18/2025 3:02 PM EDT [facility] Chloride 101 98 - 109 mmol/L 07/18/2025 3:02 PM EDT [facility] CO2 21(L) 24 - 32 mmol/L 07/18/2025 3:02 PM EDT [facility] Anion Gap 15(H) 6 - 12 mmol/L 07/18/2025 3:02 PM EDT [facility] Calcium 9.4 8.5 - 10.5 mg/dL 07/18/2025 3:02 PM EDT [facility] Estimated Creatinine Clearance 87.2 mL/min 07/18/2025 3:02 PM T [facility] Blood Venous blood / Unknown Venipuncture / Unknown 07/18/2025 11:42 AM EDT 07/18/2025 2:32 PM EDT us Porsha Marsh GENERAL MAINTENANCE ENGINEER LAB BLOOD ORDERABLES Final Result [facility] [address] [place] [address], * (ABNORMAL) LIPID PANEL (03/26/2025 8:02 AM EDT) Cholesterol 150 120 - 200 mg/dL 03/26/2025 9:43 AM EDT [facility] HDL 94 35 - 100 mg/dL 03/26/2025 9:43 AM EDT [facility] LDL Calculated 43(L) 60 - 130 mg/dL 03/26/2025 9:43 AM EDT [facility] Triglycerides 65 35 - 150 mg/dL 03/26/2025 9:43 AM EDT [facility] Cholesterol Risk Ratio 1.60 mg/dL 03/26/2025 9:43 AM EDT [facility] Comment:Less than the averag e risk of developing coronary heart disease. Blood Venous blood / Unknown Venipuncture / Unknown 03/26/2025 8:02 AM EDT 03/26/2025 8:13 AM EDT Jenny Valdez DO LAB BLOOD ORDERABLES Final Resul t [facility] [address] [place] [address], [place] [phone] * Microalbumin, urine, random (02/04/2025 10:52 AM EDT) Microalbumin, Urine <1.2 mg/dL 02/04/2025 2:18 PM EDT [facility] Comment:Reference range not established Micro Alb Ratio 2:18 PM EDT [facility] Comment: Unable to determine A/C ratio due to low Albumin result. Microalbumin/ Creatinine Ration Reference Range <30 Normal to mildly increased 30-300 Moderately increased >300 Severely increased Results of this assay are method-dependent, and should not be compared with results from another laboratory Creatinine, Urine 114.0 mg/dL 02/04/2025 2:18 PM EDT [facility] Comment:Reference range not established Urine Urine specimen obtained by clean catch procedure / Unknown Non-blood Collection / Unknown 02/04/2025 10:52 AM EDT 02/04/2025 12:44 PM EDT us Ilya Gusman MD LAB URINE ORDERABLES Final Resu lt [facility] [address] [place] [address], [place] [phone] * Hm Colonoscopy (05/11/2024 11:59 AM EDT) No Provider Available Scan HEALTH MAINTENANCE Fi nal Result * Hepatitis C Antibody (06/05/2020 8:10 AM EDT) Hep C Ab Interp Non Reactive Non Reactive 06/05/2020 11:46 AM EDT [facility] Comment: Antibodies to HCV were not detected, this does not exclude the possibility of exposure to HCV. Supplemental testing is not required unless recent infection is suspected or other evidence exists to indicate HCV infection. For supplemental testing, qualitative Hepatitis C Viral RNA by PCR, with Reflexive Quantitation is recommended ([facility] Test #[id number]). Qualitative testing, without reflexive Quantitation is also available ([facility] Test #[id number]). Please note that these tests are available [...] MD LAB BLOOD ORDERABLES Final R esult [facility] [address] [place] [address], from Last 3 Months or Most Recently Relevant to Health Maintenance Insurance [facility] MEDIC[facility] PART A & B GENERIC [employer]HICLE ACCIDENT MEDICARE PART A & B [facility] Member Subscriber Plan / Payer (Ef fective 2022-Present) Name:Adolfo Zaragoza Relation to Subscriber:Self Name:Adolfo Zaragoza Eliza Payer ID:[id number] Group ID:Not on file Type:Medicaid Address: [facility] [address] [place] [address] Advance Directives For more information, please contact: [phone] Documents on File Type Date Recorded Patient Telephone Operator Expl anation Advance Directives and Living Will [...] Agents on File Name Relationship Healthcare Agent [facility] Communication Roxanna Zaragoza [facility] Care Agent [id number] (Mobile) Care Teams Wood Milling Machine Tender Relationship Specialty Start Date End Date Ilya Gusman MD [address] [place] [phone] PCP - General 05/14/17 [facility] 09/01/25
--- OUTSIDE RECORDS SUMMARY | 2025-10-06 22:20 | XMS_ITS | Encounter Summary ---
[facility] Address [address] [place] [address] Phone Care Team Providers Care Piano Accompanist Name Role Phone Ilya Gusman MD Primary Care Provider [phone] Reason for Visit * Reason Onset Date Comments Med Refill 05/23/2020 Encounter Details Date Type Department Care Team (Late st Contact Info) Description 05/23/2020 Refill [facility] - Internal Medicine [address] [place] [phone] Christophe Dailey MD [address] [place] [phone] Med Refill Social History Tobacco Use [...] PM EDT documented as of this encounter Functional Status * How often do you have a drink containing alcohol? Answer Date of Assessment Author 0 05/25/2020 10:15 PM EDT Eulalia Nunez RN * How many standard drinks containing alcohol do you have on a typical day? Answer Date of Assessment Author 0 05/25/2020 10:15 PM EDT Eulalia Nunez RN * How often do you have six or more drinks on one occasion? Answer Date of Assessment Author 0 05/25/2020 10:15 PM EDT Eulalia Nunez RN * Audit-C Score Answer Date of Assessment Author 0 05/25/2020 10:15 PM EDT Eulalia Nunez RN documented as of this encounter Plan of Treatment Upcoming Encounters Date Type Department Care Team (Late st Contact Info) Description 10/10/2025 10:30 AM EST Office Visit [facility] - Internal Medicine [address] [place] [phone] Ilya Gusman MD [address] [place] [phone] Christophe Dailey MD [address] [place] [phone] 01/18/2026 1:00 PM EST Office Visit [facility] [address] [facility] 1 [place] [address] Porsha Marsh, BINDER CUTTER HAND [address] [place] [address] 02/22/2026 11:00 AM EDT Office Visit [facility] [address] [place] [address] [address] [place] [phone] Alonso Bae MD [address] [place] [address] [address] [place] [address] 07/17/2026 2:00 PM EDT Office Visit [facility] - Internal Medicine [address] [place] [phone] Ilya Gusman MD [address] [place] [phone] 07/19/2026 11:40 AM EDT Office Visit [facility] [address] [address] Yesi Perez MD 70 [place] [address] documented as of this encounter Visit Diagnoses [...] documented as of this encounter Care Teams Piano Accompanist Relationship Specialty Start Date End Date Ilya Gusman MD [address] [place] [phone] PCP - General 05/14/17 [facility] 09/01/25 documented as of this encounter
--- OUTSIDE RECORDS SUMMARY | 2025-10-06 22:20 | XMS_ITS | Encounter Summary ---
Author Organization [facility] Address [address] [place] [address] Phone Care Team Providers Care General Labor Name Role Phone Ilya Gusman MD Primary Care Provider [phone] Encounter Details Date Type Department Care Team (Late st Contact Info) Description 08/19/2025 Scanned Document [facility] - Health Information Department [address] [place], [place] [phone] Scan, No Provider Available [address] [facility] [place] [address] <No scans attached> Social History Tobacco Use [...] Description 10/10/2025 10:30 AM EST Office Visit [facility] - Internal Medicine [address] [place] [phone] Ilya Gusman MD [address] [place] [phone] Christophe Dailey MD [address] [place] [phone] 01/18/2026 1:00 PM EST Office Visit [facility] [address] [address] Porsha Marsh CNP 70 [place] [address] 02/22/2026 11:00 AM EDT Office Visit [facility] [address] [place] [phone] Alonso Bae MD [address] [place] [address] 07/17/2026 2:00 PM EDT Office Visit [facility] - Internal Medicine [address] [place] [phone] Ilya Gusman MD [address] [place] [phone] 07/19/2026 11:40 AM EDT Office Visit [facility] [address] [address] Yesi Perez MD 70 [place] [address] documented as of this encounter Visit Diagnoses Not on filedocumented in this encounter Additional Health Concerns Assessment Noted Time PHQ-9 Depression Total Score: 16 025 11:49 AM EDT documented as of this encounter Care Teams General Labor Relationship Specialty Start Date End Date Ilya Gusman MD [address] [place] [phone] PCP - General 05/14/17 [facility] 09/01/25 documented as of this encounter
--- OUTSIDE RECORDS SUMMARY | 2025-10-06 22:20 | XMS_ITS | Encounter Summary ---
[facility] [address] [place] [address] Phone Care Team Providers Care Photographer Name Role Phone Ilya Gusman MD Primary Care Provider [phone] Reason for Visit * Reason Onset Date Comments Med Refill 11/26/2019 Encounter Details Date Type Department Care Team (Late st Contact Info) Description 11/26/2019 Refill [facility] - Internal Medicine [address] [place] [phone] Christophe Dailey MD [address] [place] [phone] Med Refill Social History Tobacco Use [...] refill status Thank you, Luz Elena Ace Rylee/MD Refill Team, [facility] * Telephone Encounter - [...] CC MRI CC 12/01/2019 2:45 PM Christophe Dailey MD QCY IM QCY 12/03/2019 1:00 PM Alejandro Lion MD NEV NEUROSP NEV 12/10/2019 12:00 PM Ilya Gusman MD LNG IM LNG 02/16/2020 12:20 PM Lulu Mata NP LNG IM LNG CO CHAIRMAN reviewed on 11/26/2019 by Ian VELAZQUEZ and no red flags were noted Ian VELAZQUEZ Refill team, [facility] documented in this encounter Plan of Treatment Upcoming Encounters Date Type Department Care Team (Late st Contact Info) Description 10/10/2025 10:30 AM EST Office Visit [facility] - Internal Medicine [address] [place] [phone] Ilya Gusman MD [address] [place] [phone] Christophe Dailey MD [address] [place] [phone] 01/18/2026 1:00 PM EST Office Visit [facility] [address] [place] [phone] Porsha Marsh CNP 70 [place] [address] 02/22/2026 11:00 AM EDT Office Visit [facility] [address] [place] [address] [address] [place] [phone] Alonso Bae MD [address] [place] [address] [address] [place] [address] 07/17/2026 2:00 PM EDT Office Visit [facility] - Internal Medicine [address] [place] [phone] Ilya Gusman MD [address] [place] [phone] 07/19/2026 11:40 AM EDT Office Visit [facility] [address] [place] [address] Yesi Perez MD [address] [place] [address] documented as of this encounter Visit Diagnoses [...] documented as of this encounter Care Teams Photographer Relationship Specialty Start Date End Date Ilya Gusman MD [address] [place] [phone] PCP - General 05/14/17 [facility] 09/01/25 documented as of this encounter
--- OUTSIDE RECORDS SUMMARY | 2025-10-06 22:20 | XMS_ITS | Encounter Summary ---
[facility] Address [address] [place] [address] Phone Care Team Providers Care Returns Supervisor Name Role Phone Ilya Gusman MD Primary Care Provider [phone] Encounter Details Date Type Department Care Team (Late st Contact Info) Description 05/15/2020 [facility]illary Orders [facility] [place] [phone] Alejandro Lion MD [facility] at [address] [place] [address] Closed fracture of first lumbar vertebra with [...] Description 10/10/2025 10:30 AM EST Office Visit [facility] - Internal Medicine [address] [place] [phone] Ilya Gusman MD [address] [place] [phone] Christophe Dailey MD [address] [place] [phone] 01/18/2026 1:00 PM EST Office Visit [facility] 70 [facility] 1 [place] [address] Porsha Marsh, METALLURGICAL INSPECTOR [address] [place] [address] 02/22/2026 11:00 AM EDT Office Visit [facility] [address] [place] [address] [address] [place] [phone] Alonso Bae MD [address] [place] [address] [address] [place] [address] 07/17/2026 2:00 PM EDT Office Visit [facility] - Internal Medicine [address] [place] [phone] Ilya Gusman MD [address] [place] [phone] 07/19/2026 11:40 AM EDT Office Visit [facility] [address] [place] [phone] Yesi Perez MD 70 [place] [address] documented as of this encounter Results * [...] documented as of this encounter Care Teams Returns Supervisor Relationship Specialty Start Date End Date Ilya Gusman MD [address] [place] [phone] PCP - General 05/14/17 [facility] 09/01/25 documented as of this encounter
--- OUTSIDE RECORDS SUMMARY | 2025-10-06 22:20 | XMS_ITS | Encounter Summary ---
[facility] [address] [place] [address] Phone Care Team Providers Care Operations Manager Name Role Phone Ilya Gusman MD Primary Care Provider [phone] Reason for Visit * Reason Onset Date Comments Med Refill 01/20/2020 Encounter Details Date Type Department Care Team (Late st Contact Info) Description 01/20/2020 Refill [facility] - Internal Medicine [address] [place] [phone] Christophe Dailey MD [address] [place] [phone] Med Refill Social History Tobacco Use [...] AM EST [facility] DATE OF [facility]ST REFILL? 01/07/20 FREQUENCY OF [...] PM Lulu Mata, LISA LNG IM LNG DIRECTOR PRODUCT DEVELOPMENT reviewed on 01/21/2020 by Ian VELAZQUEZ and no red flags were noted Ian VELAZQUEZ Refill team, [facility] documented in this encounter Plan of Treatment Upcoming Encounters Date Type Department Care Team (Late st Contact Info) Description 10/10/2025 10:30 AM EST Office Visit [facility] - Internal Medicine [address] [place] [phone] Ilya Gusman MD [address] [place] [phone] Christophe Dailey MD [address] [place] [phone] 01/18/2026 1:00 PM EST Office [facility] [address] [address] Porsha Marsh, ELECTRIC METER INSPECTOR 70 [place] [address] 02/22/2026 11:00 AM EDT Office Visit [facility] [address] [facility] [address] [place] [phone] Alonso Bae MD [address] [facility] [address] [place] [address] 07/17/2026 2:00 PM EDT Office Visit [facility] - Internal Medicine 143 [place] [phone] Ilya Gusman MD [address] [place] [phone] 07/19/2026 11:40 AM EDT Office Visit [facility] 70 [facility] 1 [place] [address] Yesi Perez MD 70 [place] [address] documented as of this encounter Visit Diagnoses [...] documented as of this encounter Care Teams Operations Manager Relationship Specialty Start Date End Date Ilya Gusman MD [address] [place] [phone] PCP - General 05/14/17 [facility] 09/01/25 documented as of this encounter
--- OUTSIDE RECORDS SUMMARY | 2025-10-06 22:20 | XMS_ITS | Encounter Summary ---
Author Organization [facility] Address [address] [place] [address] Phone Care Team Providers Care Relocation Commissioner Name Role Phone Ilya Gusman MD Primary Care Provider [phone] Reason for Visit * Reason Onset Date Comments Med Refill Med Refill 06/02/2020 Encounter Details Date Type Department Care Team (Late st Contact Info) Description 05/31/2020 Refill [facility] - Internal Medicine [address] [place] [phone] Ilya Gusman MD [address] [place] [phone] Med Refill; Med Refill Social History [...] Department Center 06/05/2020 8:00 AM BRIDGE PROVIDER [facility] BRIDGE [facility] 07/06/2020 7:30 AM William Edwards [...] Description 10/10/2025 10:30 AM EST Office Visit [facility] - Internal Medicine [address] [place] [phone] Ilya Gusman MD [address] [place] [phone] Christophe Dailey MD [address] [place] [phone] 01/18/2026 1:00 PM EST Office Visit [facility] [address] [place] [phone] Porsha Marsh, HOSPITAL TRAY SERVICE WORKER 70 [place] [address] 02/22/2026 11:00 AM EDT Office Visit [facility] [address] [place] [address] [address] [place] [phone] Alonso Bae MD [address] [place] [address] 2 [place] [address] 07/17/2026 2:00 PM EDT Office Visit [facility] - Internal Medicine [address] [place] [phone] Ilya Gusman MD [address] [place] [phone] 07/19/2026 11:40 AM EDT Office Visit [facility] [address] [place] [address] Yesi Perez MD [address] [place] [phone] documented as of this encounter Visit Diagnoses [...] documented as of this encounter Care Teams Relocation Commissioner Relationship Specialty Start Date End Date Ilya Gusman MD [address] [place] [phone] PCP - General 05/14/17 [facility] 09/01/25 documented as of this encounter
--- OUTSIDE RECORDS SUMMARY | 2025-10-06 22:20 | XMS_ITS | Encounter Summary ---
Author Organization [facility]stem Address [address] [place] [address] Phone Care Team Providers Care Roustabout Hand Name Role Phone Ilya Gusman MD Primary Care Provider [phone] Encounter Details Date Type Department Care Team (Late st Contact Info) Description 09/02/2025 Orders Only [facility] - Health Information Department [address] [place], [place] [phone] Scan, No Provider Available [address] [facility] [place] [address] Social History Tobacco Use Types Packs/Day Years [...] Description 10/10/2025 10:30 AM EST Office Visit [facility] - Internal Medicine [address] [place] [phone] Ilya Gusman MD [address] [place] [phone] Christophe Dailey MD [address] [place] [phone] 01/18/2026 1:00 PM EST Office Visit [facility] [address] [place] [address] 1 [place] [address] Porsha Marsh CNP 70 [place] [address] 02/22/2026 11:00 AM EDT Office Visit [facility] [address] [place] [address] [address] [place] [phone] Alonso Bae MD [facility] [address] [place] [address] 07/17/2026 2:00 PM EDT Office Visit [facility] - Internal Medicine [address] [place] [phone] Iyla Gusman MD [address] [place] [phone] 07/19/2026 11:40 AM EDT Office Visit [facility] [address] [address] Yesi Perez MD 70 [place] [address] documented as of this encounter Procedures Procedure Name Priority Date/Time Associated Diagnosis Comments DIABETES EYE EXAM Routine 09/01/2025 3:14 PM EDT documented in this encounter Results * Hm Diabetes Eye Exam (09/01/2025 3:14 PM EDT) us No Provider Available Scan [facility] nal Result documented in this encounter Visit Diagnoses Not on filedocumented in this encounter Additional Health Concerns Assessment Noted Time PHQ-9 Depression Total Score: 16 025 11:49 AM EDT documented as of this encounter Care Teams Roustabout Hand Relationship Specialty Start Date End Date Ilya Gusman MD [address] [place] [phone] PCP - General 05/14/17 [facility] 09/01/25 documented as of this encounter
--- OUTSIDE RECORDS SUMMARY | 2025-10-06 22:20 | XMS_ITS | Patient Health Record ---
Author Organization [facility] Address [address] [place], [place] [address] Care Team Providers Care Cooking Teacher Name Role Phone DR Ilya Gusman Primary Care Provider Mitzi Amado, Anit Unavailable [phone] Allergies Allergen (clinical drug ingredient) Drug/Non Drug [...] Status W/U Status Risk Notes Problem Insomnia (074510686) Other insomnia (G47.09) Active confirmed Problem Primary central sleep apnea (8958813028086) Primary central sleep apnea (G47.31) Active confirmed Problem Sleep apnea (06371997) Other sleep apnea (G47.39) Active confirmed Problem Impacted cerumen (37159376) Impacted cerumen, bilateral (H61.23) Active confirmed Problem Chronic serous otitis media (15609945) Chronic serous otitis media, left ear (H65.22) Active confirmed Problem Dysfunction of bilateral eustachian tubes (858375876639929 0) Other specified disorders of Eustachian tube, bilateral (H69.83) Active confirmed Problem Conductive hearing loss, bilateral (472220470) Conductive hearing loss, bilateral (H90.0) Active confirmed Problem Bilateral tinnitus (1144708311430) Tinnitus, bilateral (H93.13) Active confirmed Problem Allergic rhinitis caused by pollen (disorder) (26541501) Allergic rhinitis due to pollen (J30.1) Active confirmed Problem Hypertrophy of nasal turbinates (59914812) Hypertrophy of nasal turbinates (J34.3) Active confirmed Problem Heart failure (10069285) Other heart failure (I50.89) Active confirmed Problem Obstructive sleep apnea syndrome (disorder) (87145775) Obstructive sleep apnea (adult) (pediatric) (G47.33) Active [...] N/A Encounters Encounter Location Date Provider Diagnosis [facility] [address] [place], [place] [id number] 08/26/2025 Anit Amado Primary central slee p apnea G47.31 [facility] [address] [place], [place] [id number] 03/11/2025 Anit Amado Obstructive sleep ap chinyere (adult) (pediatric) G47.33 ; Insomnia, unspecified G47.00 ; Other insomnia G47.09 ; Primary central sleep apnea G47.31 and Other heart failure I50.89 [facility] [address] [place], [place] [id number] 06/18/2025 Anit Amado Obstructive sleep ap chinyere (adult) (pediatric) G47.33 ; Other abnormalities of breathing R06.89 and Snoring R06.83 [facility] [address] [place], [place] [id number] 09/08/2025 Anit Amado Obstructive sleep ap chinyere (adult) (pediatric) G47.33 ; Primary central sleep apnea G47.31 ; Other insomnia G47.09 and Other heart failure I50.89 [facility] [address] [place], [place] [id number] 07/20/2025 Anit Amado Primary central slee p apnea G47.31 ; Other sleep apnea G47.39 and Other heart failure I50.89 [facility] [address] [place], [place] [id number] 01/27/2025 Anit Amado Obstructive sleep ap chinyere (adult) (pediatric) G47.33 ; Snoring R06.83 ; Other insomnia G47.09 ; Hypertrophy of nasal turbinates J34.3 and Edema of larynx J38.4 [facility] [address] [place], [place] [id number] 02/27/2025 Anit Amado Hypersomnia, unspecified G47.10 ; Obstructive sleep apnea (adult) (pediatric) G47.33 and Insomnia, unspecified G47.00 [facility] [address] [place] [id number] 03/16/2025 Anit Amado [facility] [address] [place], [place] [id number] 03/11/2025 Anit Amado Obstructive sleep ap chinyere (adult) (pediatric) G47.33 ; Other insomnia G47.09 ; Other heart failure I50.89 and Primary central sleep apnea G47.31 [facility] [address] [place], [place] [id number] 03/08/2025 Anit Amado [facility] [address] [place], [place] [id number] 02/07/2025 Anit Amado [facility] [address] [place] [id number] 02/01/2025 Anit Amado [facility] [address] [place], [place] [id number] 01/24/2025 Anit Amado [facility] [address] [place], [place] [id number] 09/08/2025 Anit Amado [facility] [address] [place], [place] [id number] 09/06/2025 Anit Amado [facility] [address] [place], [place] [id number] 07/06/2025 Anit Amado [facility] [address] [place], [place] [id number] 03/10/2025 Anit Amado [facility] [address] [place], [place] [id number] 09/01/2025 Anit Amado [facility] [address] [place], [place] [id number] 08/27/2025 Anit Amado [facility] [address] [place], [place] [id number] 07/20/2025 Anit Amado [facility] [address] [place], [place] [id number] 07/06/2025 Anit Amado [facility] [address] [place], [place] [id number] 05/07/2025 Anit Amado [facility] [address] [place], [place] [id number] 05/07/2025 Anit Amado Assessments Encounter Date Diagnosis (ICD Code) Assessment Notes Treatment Notes Treatment Clinical Notes Section Notes 01/27/2025 Obstructive sleep apnea (adult) (pediatric) (ICD-10 [...] indicated. Dictated by Misael Gill PA-C 03/11/2025 Insomnia, unspecified (ICD-10 - G47.00) The [...] PA-C 02/27/2025 Hypersomnia, unspecified (ICD-10 - G47.10) 03/11/2025 Obstructive sleep apnea (adult) (pediatric) (ICD-10 [...] therapy. Dictated by Misael Gill PA-C 03/11/2025 Other insomnia (ICD-10 - G47.09) 03/11/2025 Obstructive sleep apnea (adult) (pediatric) (ICD-10 - G47.33) 06/18/2025 Obstructive sleep apnea (adult) (pediatric) (ICD-10 - G47.33) 07/20/2025 Primary central sleep apnea (ICD-10 - [...] near future. Dictated by Misael Gill PA-C 08/26/2025 Primary central sleep apnea (ICD-10 - G47.31) 09/08/2025 Primary central sleep apnea (ICD-10 - G47.31) The patient's recent ASV titration was Inconclusive as the patient was unable to tolerate the titration. Given the patient had mixed apnea on his original polysomnogram with a central index of 40.5 I will review with our sleep qc lab technician if this patient would qualify for remede procedure versus inspire. Dictated by Misael Gill PA-C 09/08/2025 Obstructive sleep apnea (adult) (pediatric) (ICD-10 - G47.33) The patient's recent ASV titration was Inconclusive as the patient was unable to tolerate the titration. Given the patient had mixed apnea on his original polysomnogram with a central index of 40.5 I will review with our sleep qc lab technician if this patient would qualify for remede procedure versus inspire. Dictated by Misael Gill PA-C 09/08/2025 Other insomnia (ICD-10 - G47.09) The patient's recent ASV titration was Inconclusive as the patient was unable to tolerate the titration. Given the patient had mixed apnea on his original polysomnogram with a central index of 40.5 I will review with our sleep qc lab technician if this patient would qualify for remede procedure versus inspire. Dictated by Misael Gill PA-C 07/20/2025 Other [...] near future. Dictated by Misael Gill PA-C 06/18/2025 Other abnormalities of breathing (ICD-10 - R06.89) 03/11/2025 Other heart failure (ICD-10 - I50.89) 02/27/2025 Obstructive sleep apnea (adult) (pediatric) (ICD-10 - G47.33) 03/11/2025 Other insomnia (ICD-10 - G47.09) The [...] therapy. Dictated by Misael Gill PA-C 01/27/2025 Other insomnia (ICD-10 - G47.09) [...] indicated. Dictated by Misael Gill PA-C 03/11/2025 Primary [...] therapy. Dictated by Misael Gill PA-C 03/11/2025 Primary central sleep apnea (ICD-10 - G47.31) 02/27/2025 Insomnia, unspecified (ICD-10 - G47.00) 06/18/2025 Snoring (ICD-10 - R06.83) 09/08/2025 Other heart failure (ICD-10 - I50.89) The patient's recent ASV titration was Inconclusive as the patient was unable to tolerate the titration. Given the patient had mixed apnea on his original polysomnogram with a central index of 40.5 I will review with our sleep qc lab technician if this patient would qualify for remede [...] therapy. Dictated by Misael Gill PA-C 01/27/2025 Hypertrophy of nasal turbinates (ICD-10 - [...] indicated. Dictated by Misael Gill PA-C 01/27/2025 Edema [...] Insured Coverage Start Date Coverage End Date [employer]. [address] OTONIEL ALVARADO DOUG [phone] [id number] Adolfo Zaragoza Self - patient is the insured [place] Medicaid [address] [place] [id number] Adolfo Zaragoza Self - patient is the insured Medical (General) History Medical History History ICD Code heart failure hypercholesterolemia afib Surgical History Surgery Date(Month/Year) many ortho surgeries
--- OUTSIDE RECORDS SUMMARY | 2025-10-06 22:20 | XMS_ITS | Encounter Summary ---
Author Organization [facility] Address [address] [place] [address] Phone Care Team Providers Care Office Service Coordinator Name Role Phone Ilya Gusman MD Primary Care Provider Encounter Details Date Type Department Care Team (Late Contact Info) Description 11/11/2019 Procedure [facility] - MR Imaging [address] [place] [address] Social History Tobacco Use Types [...] Description 10/10/2025 10:30 AM EST Office Visit [facility] - Internal Medicine [address] [place] [phone] Ilya Gusman MD [address] [place] [phone] Christophe Dailey MD [address] [place] [phone] 01/18/2026 1:00 PM EST Office Visit [facility] [address] [place] [phone] Porsha Marsh, FIRE MANAGEMENT OFFICER [address] [place] [address] 02/22/2026 11:00 AM EDT Office Visit [facility] [address] [place] [address] [address] [place] [phone] Alonso Bea MD [address] [place] [address] [address] [place] [address] 07/17/2026 2:00 PM EDT Office Visit [facility] - Internal Medicine [address] [place] [phone] Ilya Gusman MD [address] [place] [phone] 07/19/2026 11:40 AM EDT Office Visit [facility] [address] [place] [address] Yesi Perez MD [address] [place] [address] documented as of this encounter Visit Diagnoses [...] as of this encounter Care Teams Office Service Coordinator Relationship Specialty Start Date End Date Ilya Gusman MD [address] [place] [phone] PCP - General 05/14/17 [facility] 09/01/25 documented as of this encounter
--- OUTSIDE RECORDS SUMMARY | 2025-10-06 22:20 | XMS_ITS | Encounter Summary ---
Author Organization [facility] Address [address] [place], [place] [id number] Care Team Providers Care Strategic Planning Analyst Name Role Phone Ilya Gusman MD Primary Care Provider [phone] Encounter Details Date Type Department Care Team (Latest Contact Info) Description 10/05/2025 Travel Social History Tobacco Use Types Packs/Day [...] and Family Not on file 09/23/2025 Attends [employer] Not on file 09/23 Active Member [...] any time in the past 12 m [facility] [place], were you homeless or living in a senior living (including now)? No 10/05/2025 [facility] Utilities Answer Date Recorded In the past 12 months has th e [employer], gas, oil, or water company threatened to [...] of Assessment Author No 09/22/2025 10:05 AM Aimta Mercedes * Do you have serious difficulty [...] documented as of this encounter Care Teams Strategic Planning Analyst Relationship Specialty Start Date End Date Ilya Gusman MD [address] [place] [address] PCP - General 02/12/24 documented as of this encounter
--- OUTSIDE RECORDS SUMMARY | 2025-10-06 22:20 | XMS_ITS | Encounter Summary ---
Author Organization [facility] Address [address] [place] [address] Phone Care Team Providers Care Chemical Engineering Professor Name Role Phone Ilya Gusman MD Primary Care Provider [phone] Encounter Details Date Type Department Care Team (Late st Contact Info) Description 07/05/2020 Scanned Document [facility] - Health Information Department [address] [place] [address] Scan, No Provider Available [address] [place] [address] <No scans attached> Social History Tobacco Use [...] Description 10/10/2025 10:30 AM EST Office Visit [facility] - Internal Medicine [address] [place] [phone] Ilya Gusman MD [address] [place] [phone] Christophe Dailey MD [address] [place] [phone] 01/18/2026 1:00 PM EST Office Visit [facility] [address] [place] [phone] Porsha Marsh CNP [address] [place] [address] 02/22/2026 11:00 AM EDT Office Visit [facility] [address] [place] [address] [address] [place] [phone] Alonso Bae MD [address] [place] [address] [address] [place] [address] 07/17/2026 2:00 PM EDT Office Visit [facility] - Internal Medicine [address] [place] [phone] Ilya Gusman MD [address] [place] [phone] 07/19/2026 11:40 AM EDT Office Visit [facility] [address] [place] [address] Yesi Perez MD [address] [place] [address] documented as of this encounter Visit Diagnoses [...] as of this encounter Care Teams Chemical Engineering Professor Relationship Specialty Start Date End Date Ilya Gusman MD [address] [place] [phone] PCP - General 05/14/17 [facility] 09/01/25 documented as of this encounter
--- OUTSIDE RECORDS SUMMARY | 2025-10-06 22:20 | XMS_ITS | Encounter Summary ---
Author Organization [facility] Address [address] [place] [address] Phone Care Team Providers Care Assembler Brazer Name Role Phone Ilya Gusman MD Primary Care Provider [phone] Encounter Details Date Type Department Care Team (Late Contact Info) Description 11/08/2019 Orders Only [facility] - Health Information Department [address] [place] [address] Scan, No Provider Available [address] [place] [address] [place] [address] Social History Tobacco Use Types Packs/Day Years [...] Visit [facility] - Internal Medicine [address] [place] [phone] Ilya Gusman MD [address] [place] [phone] Christophe Dailey MD [address] [place] [phone] 01/18/2026 1:00 PM EST Office Visit [facility] [address] [place] [phone] Porsha Marsh CNP [address] [place] [address] 02/22/2026 11:00 AM EDT Office Visit [facility] [address] [place] [address] [address] [place] [phone] Alonso Bae MD [address] [place] [address] [address] [place] [address] 07/17/2026 2:00 PM EDT Office Visit [facility] - Internal Medicine [address] [place] [phone] Ilya Gusman MD [address] [place] [phone] 07/19/2026 11:40 AM EDT Office Visit [facility] [address] [place] [address] Yesi Perez MD [address] [place] [address] documented as of this encounter Procedures Procedure [...] documented as of this encounter Care Teams Assembler Brazer Relationship Specialty Start Date End Date Ilya Gusman MD [address] [place] [phone] PCP - General 05/14/17 [facility] 09/01/25 documented as of this encounter
--- OUTSIDE RECORDS SUMMARY | 2025-10-06 22:20 | XMS_ITS | Encounter Summary ---
Author Organization [facility] Address [address] [place] [address] Phone Care Team Providers Care Social Media Content Specialist Name Role Phone Ilya Gusman MD Primary Care Provider [phone] Encounter Details Date Type Department Care Team (Late st Contact Info) Description 09/07/2025 Orders Only [facility] - Health Information Department [address] [place] [address] Ilya Gusman MD [address] [place] [phone] Social History Tobacco Use Types Packs/Day [...] [facility] [address] [place] [phone] Ilya Gusman MD [address] [place] [phone] Christophe Dailey MD [address] [place] [phone] 01/18/2026 1:00 PM EST Office Visit [facility] [address] [place] [phone] Porsha Marsh CNP [address] [place] [address] 02/22/2026 11:00 AM EDT Office Visit [facility] [address] [place] [phone] Alonso Bae MD [address] [place] [address] [address] [place] [address] 07/17/2026 2:00 PM EDT Office Visit [facility] - Internal Medicine [address] [place] [phone] Ilya Gusman MD [address] [place] [phone] 07/19/2026 11:40 AM EDT Office Visit [facility] [address] [place] [address] Yesi Perez MD [address] [place] [address] documented as of this encounter Procedures Procedure [...] documented as of this encounter Care Teams Social Media Content Specialist Relationship Specialty Start Date End Date Ilya Gusman MD [address] [place] [phone] PCP - General 05/14/17 [facility] 09/01/25 documented as of this encounter
--- OUTSIDE RECORDS SUMMARY | 2025-10-06 22:20 | XMS_ITS | Encounter Summary ---
Author Organization [facility] Address [address] [place] [address] Phone Care Team Providers Care Mess Attendant Name Role Phone Ilya Gusman MD Primary Care Provider [phone] Encounter Details Date Type Department Care Team (Late st Contact Info) Description 08/16/2025 Scanned Document [facility] - Health Information Department [address] [place], [place] [phone] Scan, No Provider Available [address] [place] [address] <No scans attached> Social History Tobacco Use [...] Health [facility] - Internal Medicine [address] [place] [phone] Ilya Gusman MD [address] [place] [phone] Christophe Dailey MD [address] [place] [phone] 01/18/2026 1:00 PM EST Office Visit [facility] [address] [address] Porsha Marsh CNP [address] [place] [address] 02/22/2026 11:00 AM EDT Office Visit [facility] [address] [place] [phone] Alonso Bae MD [address] [place] [address] 07/17/2026 2:00 PM EDT Office Visit [facility] - Internal Medicine [address] [place] [phone] Ilya Gusman MD [address] [place] [phone] 07/19/2026 11:40 AM EDT Office Visit [facility] [address] [address] Yesi Perez MD [address] [place] [address] documented as of this encounter Visit Diagnoses Not on filedocumented in this encounter Additional Health Concerns Assessment Noted Time PHQ-9 Depression Total Score: 16 025 11:49 AM EDT documented as of this encounter Care Teams Mess Attendant Relationship Specialty Start Date End Date Ilya Gusman MD [address] [place] [phone] PCP - General 05/14/17 [facility] 09/01/25 documented as of this encounter
--- OUTSIDE RECORDS SUMMARY | 2025-10-06 22:20 | XMS_ITS | Encounter Summary ---
Author Organization [facility] Address [address] [place] [address] Phone Care Team Providers Care Hospice Fellow Name Role Phone Ilya Gusman MD Primary Care Provider [phone] Encounter Details Date Type Department Care Team (Late Contact Info) Description 11/01/2019 Scanned Document [facility] - Health Information Department [address] [place] [address] Scan, No Provider Available [address] [place] [address] [place] [address] <No scans attached> Social History Tobacco Use [...] Description 10/10/2025 10:30 AM EST Office Visit [facility] - Internal Medicine [address] [place] [phone] Ilya Gusman MD [address] [place] [phone] Christophe Dailey MD [address] [place] [phone] 01/18/2026 1:00 PM EST Office Visit [facility] [address] [place] [phone] Porsha Marsh, STAFF TRAINER [address] [place] [address] 02/22/2026 11:00 AM EDT Office Visit [facility] [address] [place] [address] [address] [place] [phone] Alonso Bae MD [address] [place] [address] [address] [place] [address] 07/17/2026 2:00 PM EDT Office Visit [facility] - Internal Medicine [address] [place] [phone] Ilya Gusman MD [address] [place] [phone] 07/19/2026 11:40 AM EDT Office Visit [facility] [address] [place] [phone] Yesi Perez MD [address] [place] [address] documented as of this encounter Visit Diagnoses [...] documented as of this encounter Care Teams Hospice Fellow Relationship Specialty Start Date End Date Ilya Gusman MD [address] [place] [phone] PCP - General 05/14/17 [facility] 09/01/25 documented as of this encounter"
--- OUTSIDE RECORDS SUMMARY | 2025-10-06 22:20 | XMS_ITS | Encounter Summary ---
Author Organization [facility] [address] [place] [address] Care Team Providers Care Staffing Assistant Name Role Phone Tc Story MD Unavailable [phone] Ilya Gusman MD Primary Care Provider [phone] Encounter Details Date Type Department Care Team (Late st Contact Info) Description 06/20/2021 Lab Requisition [address] [phone] Albaro Nelson, LISA [address] [place] [phone] Illness, unspecified Social History Tobacco Use Types [...] - 2.6 mg/dL 06/20/2021 8:49 AM EDT [facility] Blood specimen (specimen) Venipuncture / Unknown 06/20/2021 6:10 AM EDT 06/20/2021 8:02 AM EDT Narrative [facility] - 06/20/2021 8:49 AM EDT Reference range has been changed as of 08/22/2020. Albaro Nelson ORGANIZATIONAL PSYCHOLOGIST LAB BLOOD ORDERABLES Final Re sult [facility] [address] [place] [address] * (ABNORMAL) Basic metabolic panel (06/20/2021 6:10 AM EDT) Pathologist [facility] Sodium 138 136 - 145 mEq/L 06/20/2021 8:48 AM EDT [facility] Potassium 3.9 3.5 - 5.1 mEq/L 06/20/2021 8:48 AM EDT [facility] Chloride 104 98 - 107 mEq/L 06/20/2021 8:48 AM EDT [facility] CO2 28 20 - 31 mEq/L 06/20/2021 8:48 AM EDT [facility] Anion Gap 6 4 - 15 mEq/L 06/20/2021 8:48 AM EDT [facility] Glucose 85 70 - 100 mg/dL 06/20/2021 8:48 AM EDT [facility] Creatinine 1.30(H) 0.60 - 1.10 mg/dL 06/20/2021 8:48 AM EDT [facility] eGFR 56(L) 60 - 115 mL/min 06/20/2021 8:48 AM EDT [facility] BUN 13 9 - 23 mg/dL 06/20/2021 8:48 AM EDT [facility] Calcium 8.9 8.7 - 10.4 mg/dL 06/20/2021 8:48 AM EDT [facility] Blood specimen (specimen) Venipuncture / Unknown 06/20/2021 6:10 AM EDT 06/20/2021 8:02 AM EDT Narrative [facility] - 06/20/2021 8:48 AM EDT Reference range has been changed as of 08/22/2020. us Melady Genereux ORGANIZATIONAL PSYCHOLOGIST LAB BLOOD ORDERABLES Final Re sult Performing Organization Address [facility] Co de Phone Number [facility] [address] [place] [phone] * [place] level (06/20/2021 6:10 AM EDT) [place] 1.19 0.50 - 1.30 mmol/L 06/20/2021 8:46 AM EDT [facility] Blood specimen (specimen) Venipuncture / Unknown 06/20/2021 6:10 AM EDT 06/20/2021 8:02 AM EDT us Melady Genereux ORGANIZATIONAL PSYCHOLOGIST LAB BLOOD ORDERABLES Final Re sult Performing Organization Address [facility] Co de Phone Number [facility] [address] [place] [phone] documented in this encounter Visit Diagnoses Diagnosis Illness, unspecified documented in this encounter Care Teams Staffing Assistant Relationship Specialty Start Date End Date Ilya Gusman MD [address] [place] [phone] PCP - General Internal Medicine 03/01/19 Tc Story MD [address] [place] [phone] Physician 04/02/17 documented as of this encounter
--- OUTSIDE RECORDS SUMMARY | 2025-10-06 22:21 | XMS_ITS | Encounter Summary ---
Author Organization [facility] ystem Address [address] [place] [address] Phone Care Team Providers Care Overhauler Bus Truck Name Role Phone Ilya Gusman MD Primary Care Provider [phone] Encounter Details Date Type Department Care Team (Late st Contact Info) Description 10/25/2022 Scanned Document [facility] - Health Information Department [address] [place], [place] [phone] Scan, No Provider Available [address] [facility] [place] [address] <No scans attached> Social History Tobacco Use [...] Description 10/10/2025 10:30 AM EST Office Visit [facility] - Internal Medicine [address] [place] [phone] Ilya Gusman MD [address] [place] [phone] Christophe Dailey MD [address] [place] [phone] 01/18/2026 1:00 PM EST Office Visit [facility] [address] [place] [phone] Porsha Marsh, MARILIA [address] [place] [address] 02/22/2026 11:00 AM EDT Office Visit [facility] [address] [place] [address] [address] [place] [phone] Alonso Bae MD [address] [place] [address] [address] [place] [address] 07/17/2026 2:00 PM EDT Office Visit [facility] - Internal Medicine [address] [place] [phone] Ilya Gusman MD [address] [place] [phone] 07/19/2026 11:40 AM EDT Office Visit [facility] [address] [place] [address] Yesi Perez MD [address] [place] [address] documented as of this encounter Visit Diagnoses [...] documented as of this encounter Care Teams Overhauler Bus Truck Relationship Specialty Start Date End Date Ilya Gusman MD [address] [place] [phone] PCP - General 05/14/17 [facility] 09/01/25 documented as of this encounter
--- OUTSIDE RECORDS SUMMARY | 2025-10-06 22:21 | XMS_ITS | Encounter Summary ---
Author Organization [facility] ystem Address [address] [place] [address] Phone Care Team Providers Care Infection Control Rn Name Role Phone Ilya Gusman MD Primary Care Provider [phone] Encounter Details Date Type Department Care Team (Late st Contact Info) Description 06/23/2025 Scanned Document [facility] - Health Information Department [address] [place], [place] [phone] Scan, No Provider Available [address] [facility] [place] [address] <No scans attached> Social History Tobacco Use [...] Description 10/10/2025 10:30 AM EST Office Visit [facility] - Internal Medicine [address] [place] [phone] Ilya Gusman MD [address] [place] [phone] Christophe Dailey MD [address] [place] [phone] 01/18/2026 1:00 PM EST Office Visit [facility] [address] [address] Porsha Marsh CNP 70 [place] [address] 02/22/2026 11:00 AM EDT Office Visit [facility] [address] [place] [phone] Alonso Bae MD [address] [place] [address] 07/17/2026 2:00 PM EDT Office Visit [facility] - Internal Medicine [address] [place] [phone] Ilya Gusman MD [address] [place] [phone] 07/19/2026 11:40 AM EDT Office Visit [facility] [address] [address] Yesi Perez MD 70 [place] [address] documented as of this encounter Visit Diagnoses Not on filedocumented in this encounter Additional Health Concerns Assessment Noted Time PHQ-9 Depression Total Score: 16 025 11:49 AM EDT documented as of this encounter Care Teams Infection Control Rn Relationship Specialty Start Date End Date Ilya Gusman MD [address] [place] [phone] PCP - General 05/14/17 [facility] 09/01/25 documented as of this encounter
--- OUTSIDE RECORDS SUMMARY | 2025-10-06 22:21 | XMS_ITS | Encounter Summary ---
Author Organization [facility] ystem Address [address] [place] [address] Phone Care Team Providers Care Mortgage Originator Name Role Phone Ilya Gusman MD Primary Care Provider [phone] Encounter Details Date Type Department Care Team (Late st Contact Info) Description 05/08/2020 Scanned Document [facility] - Health Information Department [address] [place] [address] Scan, No Provider Available [address] [facility] [place] [address] <No scans attached> Social History Tobacco Use [...] 10/10/2025 10:30 AM EST Office Visit [facility] - Internal Medicine [address] [place] [phone] Ilya Gusman MD [address] [place] [phone] Christophe Dailey MD [address] [place] [phone] 01/18/2026 1:00 PM EST Office Visit [facility] [address] [place] [phone] Porsha Marsh, MARILIA [address] [place] [address] 02/22/2026 11:00 AM EDT Office Visit [facility] [address] [place] [address] [address] [place] [phone] Alonso Bae MD [address] [place] [address] [address] [place] [address] 07/17/2026 2:00 PM EDT Office Visit [facility] - Internal Medicine [address] [place] [phone] Ilya Gusman MD [address] [place] [phone] 07/19/2026 11:40 AM EDT Office Visit [facility] [address] [place] [phone] Yesi Perez MD [address] [place] [address] documented as of this encounter Visit Diagnoses [...] documented as of this encounter Care Teams Mortgage Originator Relationship Specialty Start Date End Date Ilya Gusman MD [address] [place] [phone] PCP - General 05/14/17 [facility] 09/01/25 documented as of this encounter
--- OUTSIDE RECORDS SUMMARY | 2025-10-06 22:21 | XMS_ITS | Encounter Summary ---
Author Organization [facility] Address [address] [place] [address] Phone Care Team Providers Care Or First Assist Registered Nurse Name Role Phone Ilya Gusman MD Primary Care Provider [phone] Reason for Visit * Reason Comments Med Refill Encounter Details Date Type Department Care Team ([facility] Contact Info) Description 09/05/2022 Refill [facility] - Internal Medicine [address] [place] [phone] Christophe Dailey MD [address] [place] [phone] Med Refill Social History Tobacco Use [...] upcoming appointment with Dr. Gusman in September. TWAN DeviC, SHALA IM 09/05/2022 * Telephone Encounter - Ifrah Wilhelm PhT - 09/05/2022 11:54 AM EDT Refill Pro Air inhaler Last rx'd 08-07-22 # one w/ no refills Last Ov 07-16-22 Future Appointments Date Time Provider Department Center 09/10/2022 8:45 AM MD [facility] P[facility] 10/21/2022 11:00 AM MD EDUARDO WenG IM LNG Ifrah Wilhelm, Hadoop Developer Refill Team documented in this encounter Plan of Treatment Upcoming Encounters Date Type Department Care Team (Late st Contact Info) Description 10/10/2025 10:30 AM EST Office Visit [facility] - Internal Medicine [address] [place] [phone] Ilya Gusman MD [address] [place] [phone] Christophe Dailey MD [address] [place] [phone] 01/18/2026 1:00 PM EST Office Visit [facility] [address] [place] [phone] Porsha Marsh, BOX OFFICE ATTENDANT 70 [place] [address] 02/22/2026 11:00 AM EDT Office Visit [facility] [address] [place] [address] [address] [place] [phone] Alonso Bae MD [address] [place] [address] [address] [place] [address] 07/17/2026 2:00 PM EDT Office Visit [facility] - Internal Medicine [address] [place] [phone] Ilya Gusman MD [address] [place] [address] [phone] 07/19/2026 11:40 AM EDT Office Visit [facility] [address] [place] [address] Yesi Perez MD 70 [place] [address] documented as of this encounter Visit Diagnoses [...] documented as of this encounter Care Teams Or First Assist Registered Nurse Relationship Specialty Start Date End Date Ilya Gusman MD [address] [place] [phone] PCP - General 05/14/17 [facility] 09/01/25 documented as of this encounter
--- OUTSIDE RECORDS SUMMARY | 2025-10-06 22:21 | XMS_ITS | Encounter Summary ---
Author Organization [facility] ystem Address [address] [place] [address] Phone Care Team Providers Care Manager Convention Name Role Phone Ilya Gusman MD Primary Care Provider [phone] Encounter Details Date Type Department Care Team (Late st Contact Info) Description 03/06/2023 Orders Only [facility] - Health Information Department [address] [facility] [place] [address] Scan, No Provider Available [address] [facility] [place] [address] Social History Tobacco Use Types Packs/Day Years [...] Description 10/10/2025 10:30 AM EST Office Visit [facility] - Internal Medicine [address] [place] [phone] Ilya Gusman MD [address] [place] [address] [phone] Christophe Dailey MD [address] [place] [phone] 01/18/2026 1:00 PM EST Office Visit [facility] [address] [place] [address] Porsha Marsh, NUTRIENT MANAGEMENT SPECIALIST [address] [place] [address] 02/22/2026 11:00 AM EDT Office Visit [facility] [address] [place] [address] [address] [place] [phone] Alonso Bae MD [address] [place] [address] [address] [place] [address] 07/17/2026 2:00 PM EDT Office Visit [facility] - Internal Medicine [address] [place] [phone] Ilya Gusman MD [address] [place] [phone] 07/19/2026 11:40 AM EDT Office Visit [facility] [address] [place] [address] Yesi Perez MD [address] [place] [place] [address] documented as of this encounter Procedures Procedure [...] as of this encounter Care Teams Manager Convention Relationship Specialty Start Date End Date Ilya Gusman MD [address] [place] [phone] PCP - General 05/14/17 [facility] 09/01/25 documented as of this encounter
--- OUTSIDE RECORDS SUMMARY | 2025-10-06 22:21 | XMS_ITS | Encounter Summary ---
Author Organization [facility] ystem Address [address] [place] [address] Phone Care Team Providers Care Manager Supply Chain Planning Name Role Phone Ilya Gusman MD Primary Care Provider [phone] Encounter Details Date Type Department Care Team (Late st Contact Info) Description 07/21/2025 Scanned Document [facility] - Health Information Department [address] [place], [place] [phone] Scan, No Provider Available [address] [facility] [place] [address] <No scans attached> Social History Tobacco Use [...] 10:30 AM EST Office Visit [facility] - Internal Medicine [address] [place] [phone] Ilya Gusman MD [address] [place] [phone] Christophe Dailey MD [address] [place] [phone] 01/18/2026 1:00 PM EST Office Visit [facility] [address] [address] Porsha Marsh CNP 70 [place] [address] 02/22/2026 11:00 AM EDT Office Visit [facility] [address] [place] [phone] Alonso Bae MD [address] [place] [address] 07/17/2026 2:00 PM EDT Office Visit [facility] - Internal Medicine [address] [place] [phone] Ilya Gusman MD [address] [place] [phone] 07/19/2026 11:40 AM EDT Office Visit [facility] [address] [address] Yesi Perez MD 70 [place] [address] documented as of this encounter Visit Diagnoses Not on filedocumented in this encounter Additional Health Concerns Assessment Noted Time PHQ-9 Depression Total Score: 16 025 11:49 AM EDT documented as of this encounter Care Teams Manager Supply Chain Planning Relationship Specialty Start Date End Date Ilya Gusman MD [address] [place] [phone] PCP - General 05/14/17 [facility] 09/01/25 documented as of this encounter
--- OUTSIDE RECORDS SUMMARY | 2025-10-06 22:21 | XMS_ITS | Encounter Summary ---
Author Organization [facility] ystem Address [address] [place] [address] Phone Care Team Providers Care Philatelic Consultant Name Role Phone Ilya Gusman MD Primary Care Provider [phone] Encounter Details Date Type Department Care Team (Late st Contact Info) Description 01/16/2023 Orders Only [facility] - Health Information Department 143 [facility] [place] [address] Scan, No Provider Available [address] [facility] [place] [address] Social History Tobacco Use Types Packs/Day Years [...] Description 10/10/2025 10:30 AM EST Office Visit [facility] - Internal Medicine [address] [place] [phone] Ilya Gusman MD [address] [place] [phone] Christophe Dailey MD [address] [place] [phone] 01/18/2026 1:00 PM EST Office Visit [facility] [address] [place] [phone] Porsha Marsh, SYSTEMS PROGRAMMER [address] [place] [address] 02/22/2026 11:00 AM EDT Office Visit [facility] [address] [place] [address] [address] [place] [phone] Alonso Bae MD [address] [place] [address] [address] [place] [address] 07/17/2026 2:00 PM EDT Office Visit [facility] - Internal Medicine [address] [place] [phone] Ilya Gusman MD [address] [place] [phone] 07/19/2026 11:40 AM EDT Office Visit [facility] [address] [place] [address] Yesi Perez MD [address] [place] [address] documented as of this encounter Procedures Procedure [...] documented as of this encounter Care Teams Philatelic Consultant Relationship Specialty Start Date End Date Ilya Gusman MD [address] [place] [phone] PCP - General 05/14/17 [facility] 09/01/25 documented as of this encounter
--- OUTSIDE RECORDS SUMMARY | 2025-10-06 22:21 | XMS_ITS | Encounter Summary ---
Author Organization [facility] Address [address] [place] [address] Phone Care Team Providers Care Industrial Machine System Technician Name Role Phone Ilya Gusman MD Primary Care Provider Reason for Visit * Reason Onset Date Comments Med Refill 07/06/2025 Encounter Details Date Type Department Care Team (Late st Contact Info) Description 07/06/2025 Refill [facility] - Internal Medicine [address] [place] [phone] Christophe Dailey MD [address] [place] [phone] Med Refill Social History Tobacco Use [...] 07/06/2025 11:27 AM EDT Dilaudid 8mg Pharmacy: [facility] DATE OF LAST REFILL? 06/17/25 FREQUENCY OF [...] PM Ilya Gusman MD LNG IM LNG COUNT TEAM MEMBER reviewed on 07/06/2025 by Ian SORIA and no red flags were noted Ian Soria/[place] Refill Team, Loft documented in this encounter Plan of Treatment Upcoming Encounters Date Type Department Care Team (Late st Contact Info) Description 10/10/2025 10:30 AM EST Office Visit [facility] - Internal Medicine [address] [place] [phone] Ilya Gusman MD [address] [place] [phone] Christophe Dailey MD [address] [place] [address] [phone] 01/18/2026 1:00 PM EST Office Visit [facility] [address] [address] Porsha Marsh CNP [address] [place] [address] 02/22/2026 11:00 AM EDT Office Visit [facility] [address] [place] [address] [address] [place] [phone] Alonso Bae MD [address] [facility] [address] [place] [address] 07/17/2026 2:00 PM EDT Office Visit [facility] - Internal Medicine [address] [place] [phone] Ilya Gusman MD [address] [place] [phone] 07/19/2026 11:40 AM EDT Office Visit [facility] [address] [address] Yesi Perez MD 70 [place] [address] documented as of this encounter Visit Diagnoses Diagnosis Chronic low back pain, unspecified back pain laterality, unspecified whether sciatica present Chronic pain syndrome documented in this encounter Additional Health Concerns Assessment Noted Time PHQ-9 Depression Total Score: 16 025 11:49 AM EDT documented as of this encounter Care Teams Industrial Machine System Technician Relationship Specialty Start Date End Date Ilya Gusman MD [address] [place] [phone] PCP - General 05/14/17 [facility] 09/01/25 documented as of this encounter
--- OUTSIDE RECORDS SUMMARY | 2025-10-06 22:21 | XMS_ITS | Encounter Summary ---
Author Organization [facility] ystem Address [address] [place] [address] Phone Care Team Providers Care Facilities Technician Name Role Phone Ilya Gusman MD Primary Care Provider [phone] Encounter Details Date Type Department Care Team (Late st Contact Info) Description 06/21/2025 Scanned Document [facility] - Health Information Department [address] [place], [place] [phone] Scan, No Provider Available [address] [facility] [place] [address] <No scans attached> Social History Tobacco Use [...] Description 10/10/2025 10:30 AM EST Office Visit [facility] - Internal Medicine [address] [place] [phone] Ilya Gusman MD [address] [place] [phone] Christophe Dailey MD [address] [place] [phone] 01/18/2026 1:00 PM EST Office Visit [facility] [address] [address] Porsha Marsh CNP 70 [place] [address] 02/22/2026 11:00 AM EDT Office Visit [facility] [address] [place] [phone] Alonso Bae MD [address] [place] [address] 07/17/2026 2:00 PM EDT Office Visit [facility] - Internal Medicine [address] [place] [phone] Ilya Gusman MD [address] [place] [phone] 07/19/2026 11:40 AM EDT Office Visit [facility] [address] [address] Yesi Perez MD 70 [place] [address] documented as of this encounter Visit Diagnoses Not on filedocumented in this encounter Additional Health Concerns Assessment Noted Time PHQ-9 Depression Total Score: 16 025 11:49 AM EDT documented as of this encounter Care Teams Facilities Technician Relationship Specialty Start Date End Date Ilya Gusman MD [address] [place] [phone] PCP - General 05/14/17 [facility] 09/01/25 documented as of this encounter
--- OUTSIDE RECORDS SUMMARY | 2025-10-06 22:21 | XMS_ITS | Encounter Summary ---
Author Organization [facility] ystem Address [address] [place] [address] Phone Care Team Providers Care Major Account Representative Name Role Phone Ilya Gusman MD Primary Care Provider [phone] Encounter Details Date Type Department Care Team (Late st Contact Info) Description 07/22/2025 Scanned Document [facility] - Health Information Department [address] [place], [place] [phone] Scan, No Provider Available [address] [facility] [place] [address] <No scans attached> Social History Tobacco Use [...] Visit [facility] - Internal Medicine [address] [place] [phone] Ilya Gusman MD [address] [place] [phone] Christophe Dailey MD [address] [place] [phone] 01/18/2026 1:00 PM EST Office Visit [facility] [address] [address] Porsha Marsh CNP 70 [place] [address] 02/22/2026 11:00 AM EDT Office Visit [facility] [address] [place] [phone] Alonso Bae MD [address] [place] [address] 07/17/2026 2:00 PM EDT Office Visit [facility] - Internal Medicine [address] [place] [phone] Ilya Gusman MD [address] [place] [phone] 07/19/2026 11:40 AM EDT Office Visit [facility] [address] [address] Yesi Perez MD 70 [place] [address] documented as of this encounter Visit Diagnoses Not on filedocumented in this encounter Additional Health Concerns Assessment Noted Time PHQ-9 Depression Total Score: 16 025 11:49 AM EDT documented as of this encounter Care Teams Major Account Representative Relationship Specialty Start Date End Date Ilya Gusman MD [address] [place] [phone] PCP - General 05/14/17 [facility] 09/01/25 documented as of this encounter
--- OUTSIDE RECORDS SUMMARY | 2025-10-06 22:21 | XMS_ITS | Encounter Summary ---
[facility] Organization [facility] Address [address] [place] [address] Phone Care Team Providers Care Cable Engineer Name Role Phone Ilya Gusman MD Primary Care Provider [phone] Reason for Visit * Reason Onset Date Comments Med Refill 08/07/2022 Encounter Details Date Type Department Care Team (Late Contact Info) Description 08/07/2022 Refill [facility] - Internal Medicine [address] [place] [phone] Mychart, Generic Provider [address] [place], [place] [phone] Med Refill Social History Tobacco Use Types [...] 10:30 AM EST Office Visit [facility] - Internal Medicine [address] [place] [phone] Ilya Gusman MD [address] [place] [phone] Christophe Dailey MD [address] [place] [phone] 01/18/2026 1:00 PM EST Office Visit [facility] [address] [place] [address] Porsha Marsh CNP [address] [place] [address] 02/22/2026 11:00 AM EDT Office Visit [facility] [address] [place] [address] [address] [place] [phone] Alonso Bae MD [address] [place] [address] [address] [place] [address] 07/17/2026 2:00 PM EDT Office Visit [facility] - Internal Medicine [address] [place] [phone] Ilya Gusman MD [address] [place] [phone] 07/19/2026 11:40 AM EDT Office Visit [facility] [address] [place] [address] Yesi Perez MD [address] [place] [address] documented as of this encounter Visit Diagnoses [...] documented as of this encounter Care Teams Cable Engineer Relationship Specialty Start Date End Date Ilya Gusman MD [address] [place] [phone] PCP - General 05/14/17 [facility] 09/01/25 documented as of this encounter
--- OUTSIDE RECORDS SUMMARY | 2025-10-06 22:21 | XMS_ITS | Encounter Summary ---
[facility] Address [address] [place] [address] Phone Care Team Providers Care Graphic Engineer Name Role Phone Ilya Gusman MD Primary Care Provider [phone] Encounter Details Date Type Department Care Team (Late st Contact Info) Description 07/06/2025 Orders Only [facility] - Health Information Department [address] [place] [address] Ilya Gusman MD [address] [place] [phone] Social History Tobacco Use Types Packs/Day [...] Description 10/10/2025 10:30 AM EST Office Visit [facility] - Internal Medicine [address] [place] [phone] Ilya Gusman MD [address] [place] [phone] Christophe Dailey MD [address] [place] [phone] 01/18/2026 1:00 PM EST Office Visit [facility] [address] [place] [address] Porsha Marsh CNP 70 [place] [address] 02/22/2026 11:00 AM EDT [facility] [address] [place] [phone] Alonso Bae MD [address] [place] [address] [address] [place] [address] 07/17/2026 2:00 PM EDT Office Visit [facility] - Internal Medicine [address] [place] [phone] Ilya Gusman MD [address] [place] [phone] 07/19/2026 11:40 AM EDT Office Visit [facility] [address] [place] [address] Yesi Perez MD [address] [place] [address] documented as of this encounter Procedures Procedure [...] as of this encounter Care Teams Graphic Engineer Relationship Specialty Start Date End Date Ilya Gusman MD [address] [place] [phone] PCP - General 05/14/17 [facility] 09/01/25 documented as of this encounter
--- OUTSIDE RECORDS SUMMARY | 2025-10-06 22:21 | XMS_ITS | Encounter Summary ---
Author Organization [facility] Address [address] [place] [address] Phone Care Team Providers Care Underground Truck Operator Name Role Phone Ilya Gusman MD Primary Care Provider [phone] Reason for Visit * Reason Onset Date Comments Med Refill 07/29/2022 Encounter Details Date Type Department Care Team (Late st Contact Info) Description 07/29/2022 Refill [facility] - Internal Medicine [address] [place] [address] [phone] Christophe Dailey MD [address] [place] [phone] Med Refill Social History Tobacco Use [...] 10:30 AM EST Office Visit [facility] - Internal Medicine [address] [place] [phone] Ilya uGsman MD [address] [place] [phone] Christophe Dailey MD [address] [place] [phone] 01/18/2026 1:00 PM EST Office Visit [facility] 70 [facility] 1 [place] [address] Porsha Marsh, HEALTH AND SAFETY COORDINATOR [address] [place] [address] 02/22/2026 11:00 AM EDT Office Visit [facility] [address] [place] [address] [address] [place] [address] Alonso Bae MD [address] [place] [address] [address] [place] [address] 07/17/2026 2:00 PM EDT Office Visit [facility] - Internal Medicine [address] [place] [phone] Ilya Gusman MD [address] [place] [phone] 07/19/2026 11:40 AM EDT Office Visit [facility] [address] [address] Yesi Perez MD 70 [place] [address] documented as of this encounter Visit Diagnoses [...] documented as of this encounter Care Teams Underground Truck Operator Relationship Specialty Start Date End Date Ilya Gusman MD [address] [place] [phone] PCP - General 05/14/17 [facility] 09/01/25 documented as of this encounter
--- OUTSIDE RECORDS SUMMARY | 2025-10-06 22:21 | XMS_ITS | Encounter Summary ---
Author Organization [facility] ystem Address [address] [place] [address] Phone Care Team Providers Care Heating Plant Superintendent Name Role Phone Ilya Gusman MD Primary Care Provider Encounter Details Date Type Department Care Team (Late st Contact Info) Description 08/05/2022 Orders Only [facility] - Health Information Department 143 [facility] [place] [address] Scan, No Provider Available [address] [facility] [place] [address] Social History Tobacco Use Types Packs/Day Years [...] Description 10/10/2025 10:30 AM EST Office Visit [facility] - Internal Medicine [address] [place] [phone] Ilya Gusman MD [address] [place] [phone] Christophe Dailey MD [address] [place] [phone] 01/18/2026 1:00 PM EST Office Visit [facility] [address] [place] [address] Porsha Marsh, MULTI SITE LEASING CONSULTANT [address] [place] [address] 02/22/2026 11:00 AM EDT Office Visit [facility] [address] [place] [address] [address] [place] [address] Alonso Bae MD [address] [place] [address] [address] [place] [address] 07/17/2026 2:00 PM EDT Office Visit [facility] - Internal Medicine [address] [place] [phone] Ilya Gusman MD [address] [place] [phone] 07/19/2026 11:40 AM EDT Office Visit [facility] [address] [place] [address] Yesi Perez MD [address] [place] [address] documented as of this encounter Procedures Procedure [...] documented as of this encounter Care Teams Heating Plant Superintendent Relationship Specialty Start Date End Date Ilya Gusman MD [address] [place] [phone] PCP - General 05/14/17 [facility] 09/01/25 documented as of this encounter
--- OUTSIDE RECORDS SUMMARY | 2025-10-06 22:21 | XMS_ITS | Encounter Summary ---
Author Organization [facility] Address [address] [place] [address] Phone Care Team Providers Care Justice Professor Name Role Phone Ilya Gusman MD Primary Care Provider [phone] Reason for Visit * Reason Onset Date Comments Med Refill 03/04/2020 Encounter Details Date Type Department Care Team (Late st Contact Info) Description 03/04/2020 Refill [facility] - Internal Medicine [address] [place] [phone] Ilya Gusman MD [address] [place] [phone] Med Refill Social History Tobacco Use [...] Department Center 03/29/2020 11:40 AM Lulu Mata, LIAS LNG IM LNG 07/25/2020 10:30 AM Alejandro Lion MD NEV NEUROSP NEV Sheron Hoover Rylee/[place] Refill Team, Loft documented in this encounter Plan of Treatment Upcoming Encounters Date Type Department Care Team (Late st Contact Info) Description 10/10/2025 10:30 AM EST Office Visit [facility] - Internal Medicine [address] [place] [phone] Ilya Gusman MD [address] [place] [phone] Christophe Dailey MD [address] [place] [phone] 01/18/2026 1:00 PM EST Office Visit [facility] 70 [facility] 1 [place] [address] Porsha Marsh CNP 70 [place] [address] 02/22/2026 11:00 AM EDT Office Visit [facility] [address] [place] [phone] Alonso Bae MD [address] [place] [address] 07/17/2026 2:00 PM EDT Office Visit [facility] - Internal Medicine [address] [place] [phone] Ilya Gusman MD [address] [place] [address] [phone] 07/19/2026 11:40 AM EDT Office Visit [facility] [address] [address] Yesi Perez MD 70 [place] [address] documented as of this encounter Visit Diagnoses [...] documented as of this encounter Care Teams Justice Professor Relationship Specialty Start Date End Date Ilya Gusman MD [address] [place] [address] [phone] PCP - General 05/14/17 [facility] 09/01/25 documented as of this encounter
--- OUTSIDE RECORDS SUMMARY | 2025-10-06 22:21 | XMS_ITS | Encounter Summary ---
Author Organization [facility]stem Address [address] [place] [address] Phone Care Team Providers Care Enamel Dipper Name Role Phone Ilya Gusman MD Primary Care Provider [phone] Encounter Details Date Type Department Care Team (Late st Contact Info) Description 10/25/2022 Scanned Document [facility] - Health Information Department 143 [place], [place] [phone] Scan, No Provider Available [address] [facility] [place] [address] <No scans attached> Social History Tobacco Use [...] Description 10/10/2025 10:30 AM EST Office Visit [facility] - Internal Medicine [address] [place] [phone] Ilya Gusman MD [address] [place] [phone] Christophe Dailey MD [address] [place] [phone] 01/18/2026 1:00 PM EST Office Visit [facility] [address] [place] [address] Porsha Marsh, MARILIA [address] [place] [address] 02/22/2026 11:00 AM EDT Office Visit [facility] [address] [place] [address] [address] [place] [phone] Alonso Bae MD [address] [place] [address] [address] [place] [address] 07/17/2026 2:00 PM EDT Office Visit [facility] - Internal Medicine [address] [place] [phone] Ilya Gusman MD [address] [place] [phone] 07/19/2026 11:40 AM EDT Office Visit [facility] [address] [place] [address] Yesi Perez MD [address] [place] [address] documented as of this encounter Visit Diagnoses [...] documented as of this encounter Care Teams Enamel Dipper Relationship Specialty Start Date End Date Ilya Gusman MD [address] [place] [phone] PCP - General 05/14/17 [facility] 09/01/25 documented as of this encounter
--- OUTSIDE RECORDS SUMMARY | 2025-10-06 22:21 | XMS_ITS | Encounter Summary ---
Author Organization [facility] Address [address] [place] [address] Phone Care Team Providers Care Wash Mill Operator Name Role Phone Ilya Gusman MD Primary Care Provider [phone] Reason for Visit * Reason Onset Date Comments Med Refill 08/07/2022 Encounter Details Date Type Department Care Team ([facility] Contact Info) Description 08/07/2022 Refill [facility] - Internal Medicine [address] [place] [address] [phone] Christophe Daliey MD [address] [place] [phone] Med Refill Social History Tobacco Use [...] [facility] Medicine [address] [place] [phone] Ilya Gusman MD [address] [place] [phone] Christophe Dailey MD [address] [place] [address] [phone] 01/18/2026 1:00 PM EST Office Visit [facility] 70 [facility] 1 [place] [address] Porsha Marsh, MARILIA 70 [place] [address] 02/22/2026 11:00 AM EDT Office Visit [facility] [address] [place] [address] [address] [place] [address] Alonso Bae MD [address] [facility] [address] [place] [address] 07/17/2026 2:00 PM EDT Office Visit [facility] - Internal Medicine 143 [place] [phone] Ilya Gusman MD [address] [place] [phone] 07/19/2026 11:40 AM EDT Office Visit [facility] [address] [address] Yesi Perez MD 70 [place] [address] documented as of this encounter Visit Diagnoses [...] documented as of this encounter Care Teams Wash Mill Operator Relationship Specialty Start Date End Date Ilya Gusman MD [address] [place] [phone] PCP - General 05/14/17 [facility] 09/01/25 documented as of this encounter
--- OUTSIDE RECORDS SUMMARY | 2025-10-06 22:21 | XMS_ITS | Encounter Summary ---
[facility] Address [address] [place] [address] Phone Care Team Providers Care Roll Dough Divider Name Role Phone Ilya Gusman MD Primary Care Provider [phone] Reason for Visit * Reason Onset Date Comments Med Refill 03/12/2020 Encounter Details Date Type Department Care Team (Late st Contact Info) Description 03/12/2020 Refill [facility] - Internal Medicine [address] [place] [address] [phone] Ilya Gusman MD [address] [place] [phone] Med Refill Social History Tobacco Use [...] Description 10/10/2025 10:30 AM EST Office Visit [facility] - Internal Medicine [address] [place] [phone] Ilya Gusman MD [address] [place] [phone] Christophe Dailey MD [address] [place] [phone] 01/18/2026 1:00 PM EST Office Visit [facility] 70 [facility] 1 [place] [address] Porsha Marsh, TELEHEALTH DIRECTOR 70 [place] [address] 02/22/2026 11:00 AM EDT Office Visit [facility] [address] [facility] [address] [place] [phone] Alonso Bae MD [address] [place] [address] 07/17/2026 2:00 PM EDT Office Visit [facility] - Internal Medicine [address] [place] [phone] Ilya Gusman MD [address] [place] [phone] 07/19/2026 11:40 AM EDT Office Visit [facility] [address] [facility] 1 [place] [address] Yesi Perez MD 70 [place] [address] documented as of this encounter Visit Diagnoses [...] as of this encounter Care Teams Roll Dough Divider Relationship Specialty Start Date End Date Ilya Gusman MD [address] [place] [phone] PCP - General 05/14/17 [facility] 09/01/25 documented as of this encounter
--- OUTSIDE RECORDS SUMMARY | 2025-10-06 22:21 | XMS_ITS | Encounter Summary ---
[facility] Organization [facility] Address [address] [place] [address] Phone Care Team Providers Care Bus Driver Name Role Phone Ilya Gusman MD Primary Care Provider [phone] Encounter Details Date Type Department Care Team (Late st Contact Info) Description 07/08/2025 Telephone [facility] - Internal Medicine [address] [place] [phone] Ilya Gusman MD [address] [place] [phone] Social History Tobacco Use Types Packs/Day [...] when he went to the ED at [facility]. Pt is going to call and check the pharmacy and see if they were sent there. Ian Rinaldi Refill Specialist documented in this encounter Plan of Treatment Upcoming Encounters Date Type Department Care Team (Late st Contact Info) Description 10/10/2025 10:30 AM EST Office Visit [facility] - Internal Medicine [address] [place] [phone] Ilya Gusman MD [address] [place] [phone] Christophe Dailey MD [address] [place] [phone] 01/18/2026 1:00 PM EST Office Visit [facility] [address] [place] [address] Porsha Marsh CNP [address] [place] [address] 02/22/2026 11:00 AM EDT Office Visit [facility] [address] [place] [address] [address] [place] [phone] Alonso Bae MD [address] [place] [address] [address] [place] [address] 07/17/2026 2:00 PM EDT Office Visit [facility] - Internal Medicine [address] [place] [phone] Ilya Gusman MD [address] [place] [phone] 07/19/2026 11:40 AM EDT Office Visit [facility] [address] [place] [address] Yesi Perez MD [address] [place] [address] documented as of this encounter Visit Diagnoses Not on filedocumented in this encounter Additional Health Concerns Assessment Noted Time PHQ-9 Depression Total Score: 16 025 11:49 AM EDT documented as of this encounter Care Teams Bus Driver Relationship Specialty Start Date End Date Ilya Gusman MD [address] [place] [phone] PCP - General 05/14/17 [facility] 09/01/25 documented as of this encounter
--- OUTSIDE RECORDS SUMMARY | 2025-10-06 22:21 | XMS_ITS | Encounter Summary ---
Author Organization [facility]stem Address [address] [place] [address] Phone Care Team Providers Care Exhaust Machine Operator Name Role Phone Ilya Gusman MD Primary Care Provider [phone] Encounter Details Date Type Department Care Team (Late st Contact Info) Description 03/07/2023 Orders Only [facility] - Health Information Department 143 [place] [address] Scan, No Provider Available [address] [facility] [place] [address] Social History Tobacco Use Types Packs/Day Years [...] 10:30 AM EST Office Visit [facility] - Internal Medicine [address] [place] [phone] Ilya Gusman MD [address] [place] [phone] Christophe Dailey MD [address] [place] [phone] 01/18/2026 1:00 PM EST Office Visit [facility] [address] [place] [address] Porsha Marsh, CONCRETE ANALYST [address] [place] [address] 02/22/2026 11:00 AM EDT Office Visit [facility] [address] [place] [address] [address] [place] [phone] Alonso Bae MD [address] [place] [address] [address] [place] [address] 07/17/2026 2:00 PM EDT Office Visit [facility] - Internal Medicine [address] [place] [phone] Ilya Gusman MD [address] [place] [phone] 07/19/2026 11:40 AM EDT Office Visit [facility] [address] [place] [address] Yesi Perez MD [address] [place] [address] documented as of this encounter Procedures Procedure [...] documented as of this encounter Care Teams Exhaust Machine Operator Relationship Specialty Start Date End Date Ilya Gusman MD [address] [place] [phone] PCP - General 05/14/17 [facility] 09/01/25 documented as of this encounter
--- OUTSIDE RECORDS SUMMARY | 2025-10-06 22:21 | XMS_ITS | Encounter Summary ---
Author Organization [facility] Address [address] [place] [address] Phone Care Team Providers Care Inclusion Paraeducator Name Role Phone Ilya Gusman MD Primary Care Provider [phone] Encounter Details Date Type Department Care Team (Late Contact Info) Description 08/08/2025 Procedure Pass [facility] 2 [place] [phone] Social History Tobacco Use Types Packs/Day Years [...] Author No 05/20/2025 10:06 AM EDT Roberta aWng MA * Do you have serious difficulty [...] [place] [facility] - Internal Medicine [address] [place] [phone] Ilya Gusman MD [address] [place] [phone] Christophe Dailey MD [address] [place] [phone] 01/18/2026 1:00 PM EST Office Visit [facility] 70 [facility] 1 [place] [address] Porsha Marsh CNP 70 [place] [address] 02/22/2026 11:00 AM EDT Office Visit [facility] [address] [place] [address] Alonso Bae MD [address] [place] [address] 07/17/2026 2:00 PM EDT Office Visit [facility] - Internal Medicine [address] [place] [phone] Ilya Gusman MD [address] [place] [phone] 07/19/2026 11:40 AM EDT Office Visit [facility] 70 [facility] 1 [place] [address] Yesi Perez MD 70 [place] [address] documented as of this encounter Visit Diagnoses Not on filedocumented in this encounter Additional Health Concerns Assessment Noted Time PHQ-9 Depression Total Score: 16 025 11:49 AM EDT documented as of this encounter Care Teams Inclusion Paraeducator Relationship Specialty Start Date End Date Ilya Gumsan MD [address] [place] [phone] PCP - General 05/14/17 [facility] 09/01/25 documented as of this encounter
--- OUTSIDE RECORDS SUMMARY | 2025-10-06 22:21 | XMS_ITS | Encounter Summary ---
Author Organization [facility] ystem Address [address] [place] [address] Phone Care Team Providers Care Assistant Chief Train Dispatcher Name Role Phone Ilya Gusman MD Primary Care Provider [phone] Encounter Details Date Type Department Care Team (Late st Contact Info) Description 07/02/2025 Scanned Document [facility] - Health Information Department 143 [place], [place] [id number] Scan, No Provider Available [address] [facility] [place] [address] <No scans attached> Social History Tobacco Use [...] 10:30 AM EST Office Visit [facility] - Internal Medicine [address] [place] [phone] Ilya Gusman MD [address] [place] [phone] Christophe Dailey MD [address] [place] [phone] 01/18/2026 1:00 PM EST Office Visit [facility] [address] [address] Porsha Marsh CNP 70 [place] [address] 02/22/2026 11:00 AM EDT Office Visit [facility] [address] [place] [phone] Alonso Bae MD [address] [place] [address] 07/17/2026 2:00 PM EDT Office Visit [facility] - Internal Medicine [address] [place] [phone] Ilya Gusman MD [address] [place] [phone] 07/19/2026 11:40 AM EDT Office Visit [facility] [address] [address] Yesi Perez MD 70 [place] [address] documented as of this encounter Visit Diagnoses Not on filedocumented in this encounter Additional Health Concerns Assessment Noted Time PHQ-9 Depression Total Score: 16 025 11:49 AM EDT documented as of this encounter Care Teams Assistant Chief Train Dispatcher Relationship Specialty Start Date End Date Ilya Gusman MD [address] [place] [phone] PCP - General 05/14/17 [facility] 09/01/25 documented as of this encounter
--- OUTSIDE RECORDS SUMMARY | 2025-10-06 22:21 | XMS_ITS | Encounter Summary ---
Author Organization [facility] ystem Address [address] [place] [address] Phone Care Team Providers Care Traffic Maintenance Officer Name Role Phone Ilya Gusman MD Primary Care Provider [phone] Encounter Details Date Type Department Care Team (Late st Contact Info) Description 01/06/2023 Scanned Document [facility] - Health Information Department 143 [place], [place] [id number] Scan, No Provider Available [address] [facility] [place] [address] <No scans attached> Social History Tobacco Use [...] 10/10/2025 10:30 AM EST Office Visit [facility] - Internal Medicine [address] [place] [phone] Ilya Gusman MD [address] [place] [phone] Christophe Dailey MD [address] [place] [phone] 01/18/2026 1:00 PM EST Office Visit [facility] [address] [place] [address] Porsha Marsh, MARILIA [address] [place] [address] 02/22/2026 11:00 AM EDT Office Visit [facility] [address] [place] [address] [address] [place] [address] Alonso Bae MD [address] [place] [address] [address] [place] [address] 07/17/2026 2:00 PM EDT Office Visit [facility] - Internal Medicine [address] [place] [phone] Ilya Gusman MD [address] [place] [phone] 07/19/2026 11:40 AM EDT Office Visit [facility] [address] [place] [address] Yesi Perez MD [address] [place] [address] documented as of this encounter Visit Diagnoses [...] as of this encounter Care Teams Traffic Maintenance Officer Relationship Specialty Start Date End Date Ilya Gusman MD [address] [place] [phone] PCP - General 05/14/17 [facility] 09/01/25 documented as of this encounter
--- OUTSIDE RECORDS SUMMARY | 2025-10-06 22:21 | XMS_ITS | Encounter Summary ---
Author Organization [facility] Address [address] [place] [address] Phone Care Team Providers Care Wax Specialist Name Role Phone Ilya Gusman MD Primary Care Provider [phone] Encounter Details Date Type Department Care Team (Late Contact Info) Description 07/31/2022 Procedure Pass [facility] Endoscopy [address] [place] [address] Social History Tobacco Use Types [...] Description 10/10/2025 10:30 AM EST Office Visit [facility] - Internal Medicine [address] [place] [phone] Ilya Gusman MD [address] [place] [phone] Christophe Dailey MD [address] [place] [phone] 01/18/2026 1:00 PM EST Office Visit [facility] [address] [place] [address] Porsha Marsh, MARILIA [address] [place] [address] 02/22/2026 11:00 AM EDT Office Visit [facility] [address] [place] [address] [address] [place] [phone] Alonso Bae MD [address] [place] [address] [address] [place] [address] 07/17/2026 2:00 PM EDT Office Visit [facility] - Internal Medicine [address] [place] [phone] Ilya Gusman MD [address] [place] [phone] 07/19/2026 11:40 AM EDT Office Visit [facility] [address] [place] [address] Yesi Perez MD [address] [place] [address] documented as of this encounter Visit Diagnoses [...] documented as of this encounter Care Teams Wax Specialist Relationship Specialty Start Date End Date Ilya Gusman MD [address] [place] [phone] PCP - General 05/14/17 [facility] 09/01/25 documented as of this encounter
--- OUTSIDE RECORDS SUMMARY | 2025-10-06 22:21 | XMS_ITS | Encounter Summary ---
Author Organization [facility] ystem Address [address] [place] [address] Phone Care Team Providers Care Conference Translator Name Role Phone Ilya Gusman MD Primary Care Provider [phone] Encounter Details Date Type Department Care Team (Late st Contact Info) Description 12/13/2022 Orders Only [facility] - Health Information Department 143 [place] [address] Scan, No Provider Available [address] [facility] [place] [address] Social History Tobacco Use Types Packs/Day Years [...] Description 10/10/2025 10:30 AM EST Office Visit [facility] - Internal Medicine [address] [place] [phone] Ilya Gusman MD [address] [place] [phone] Christophe Dailey MD [address] [place] [phone] 01/18/2026 1:00 PM EST Office Visit [facility] [address] [place] [address] Porsha Marsh, INTERIOR MECHANIC [address] [place] [address] 02/22/2026 11:00 AM EDT Office Visit [facility] [address] [place] [address] [address] [place] [address] Alonso Bae MD [address] [place] [address] [address] [place] [address] 07/17/2026 2:00 PM EDT Office Visit [facility] - Internal Medicine [address] [place] [phone] Ilya Gusman MD [address] [place] [phone] 07/19/2026 11:40 AM EDT Office Visit [facility] [address] [place] [address] Yesi Perez MD [address] [place] [address] documented as of this encounter Procedures Procedure [...] documented as of this encounter Care Teams Conference Translator Relationship Specialty Start Date End Date Ilya Gusman MD [address] [place] [phone] PCP - General 05/14/17 [facility] 09/01/25 documented as of this encounter
--- OUTSIDE RECORDS SUMMARY | 2025-10-06 22:21 | XMS_ITS | Encounter Summary ---
Author Organization [facility] ystem Address [address] [place] [address] Phone Care Team Providers Care Fabric Worker Name Role Phone Ilya Gusman MD Primary Care Provider Encounter Details Date Type Department Care Team (Late st Contact Info) Description 01/30/2023 Scanned Document [facility] - Health Information Department 143 [place], [place] [phone] Scan, No Provider Available [address] [facility] [place] [address] <No scans attached> Social History Tobacco Use [...] 10:30 AM EST Office Visit [facility] - Internal Medicine [address] [place] [phone] Ilya Gusman MD [address] [place] [phone] Christophe Dailey MD [address] [place] [phone] 01/18/2026 1:00 PM EST Office Visit [facility] [address] [place] [address] Porsha Marsh, MARILIA [address] [place] [address] 02/22/2026 11:00 AM EDT Office Visit [facility] [address] [place] [address] [address] [place] [phone] Alonso Bae MD [address] [place] [address] [address] [place] [address] 07/17/2026 2:00 PM EDT Office Visit [facility] - Internal Medicine [address] [place] [phone] Ilya Gusman MD [address] [place] [phone] 07/19/2026 11:40 AM EDT Office Visit [facility] [address] [place] [address] Yesi Perez MD [address] [place] [address] documented as of this encounter Visit Diagnoses [...] documented as of this encounter Care Teams Fabric Worker Relationship Specialty Start Date End Date Ilya Gusman MD [address] [place] [phone] PCP - General 05/14/17 [facility] 09/01/25 documented as of this encounter
--- OUTSIDE RECORDS SUMMARY | 2025-10-06 22:21 | XMS_ITS | Encounter Summary ---
Author Organization [facility] ystem Address [address] [place] [address] Phone Care Team Providers Care Tile Helper Name Role Phone Ilya Gusman MD Primary Care Provider [phone] Encounter Details Date Type Department Care Team (Late st Contact Info) Description 02/26/2023 Scanned Document [facility] - Health Information Department 143 [place], [place] [phone] Scan, No Provider Available [address] [facility] [place] [address] <No scans attached> Social History Tobacco Use [...] 10/10/2025 10:30 AM EST Office Visit [facility] - Internal Medicine [address] [place] [phone] Ilya Gusman MD [address] [place] [phone] Christophe Dailey MD [address] [place] [address] [phone] 01/18/2026 1:00 PM EST Office Visit [facility] [address] [place] [address] Porsha Mrash, MARILIA [address] [place] [address] 02/22/2026 11:00 AM EDT Office Visit [facility] [address] [place] [address] [address] [place] [phone] Alonso Bae MD [address] [place] [address] [address] [place] [address] 07/17/2026 2:00 PM EDT Office Visit [facility] - Internal Medicine [address] [place] [phone] Ilya Gusman MD [address] [place] [phone] 07/19/2026 11:40 AM EDT Office Visit [facility] [address] [place] [address] Yesi Perez MD [address] [place] [address] documented as of this encounter Visit Diagnoses [...] documented as of this encounter Care Teams Tile Helper Relationship Specialty Start Date End Date Ilya Gusman MD [address] [place] [phone] PCP - General 05/14/17 [facility] 09/01/25 documented as of this encounter
--- OUTSIDE RECORDS SUMMARY | 2025-10-06 22:21 | XMS_ITS | Encounter Summary ---
Author Organization [facility] ystem Address [address] [place] [address] Phone Care Team Providers Care Stencil Printer Name Role Phone Ilya Gusman MD Primary Care Provider [phone] Encounter Details Date Type Department Care Team (Late st Contact Info) Description 07/07/2025 Scanned Document [facility] - Health Information Department 143 [place], [place] [phone] Scan, No Provider Available [address] [facility] [place] [address] <No scans attached> Social History Tobacco Use [...] [facility] - Internal Medicine [address] [place] [phone] Ilya Gusman MD [address] [place] [phone] Christophe Dailey MD [address] [place] [phone] 01/18/2026 1:00 PM EST Office Visit [facility] [address] [address] Porsha Marsh CNP 70 [place] [address] 02/22/2026 11:00 AM EDT Office Visit [facility] [address] [place] [phone] Alonso Bae MD [address] [place] [address] 07/17/2026 2:00 PM EDT Office Visit [facility] - Internal Medicine [address] [place] [phone] Ilya Gusman MD [address] [place] [phone] 07/19/2026 11:40 AM EDT Office Visit [facility] [address] [address] Yesi Perez MD 70 [place] [address] documented as of this encounter Visit Diagnoses Not on filedocumented in this encounter Additional Health Concerns Assessment Noted Time PHQ-9 Depression Total Score: 16 025 11:49 AM EDT documented as of this encounter Care Teams Stencil Printer Relationship Specialty Start Date End Date Ilya Gusman MD [address] [place] [phone] PCP - General 05/14/17 [facility] 09/01/25 documented as of this encounter
--- OUTSIDE RECORDS SUMMARY | 2025-10-06 22:21 | XMS_ITS | Encounter Summary ---
Author Organization [facility] Address [address] [place] [address] Phone Care Team Providers Care Geospatial Extractor Analysis Name Role Phone Ilya Gusman MD Primary Care Provider Encounter Details Date Type Department Care Team (Late st Contact Info) Description 07/01/2025 Telephone [facility] - Internal Medicine [address] [place] [phone] Ilya Gusman MD [address] [place] [phone] Social History Tobacco Use Types Packs/Day [...] - 07/01/2025 4:19 PM EDT Pharmacist at [facility] Has asked for a med list for this Pt. Pt is new to [facility] and wants to make sure he has a current list. Pharm is also going to get a med list from [facility] Which is where Pt has been getting his med. [address] [address] Kristina Schneider Refill Specialist documented in this encounter Plan of Treatment Upcoming Encounters Date Type Department Care Team (Late st Contact Info) Description 10/10/2025 10:30 AM EST Office Visit [facility] - Internal Medicine [address] [place] [phone] Ilya Gusman MD [address] [place] [phone] Christohpe Dailey MD [address] [place] [phone] 01/18/2026 1:00 PM EST Office Visit [facility] [address] [place] [address] Porsha Marsh, [address] [address] 02/22/2026 11:00 AM EDT Office Visit [facility] [address] [place] [address] [address] [place] [phone] Alonso Bae MD [address] [place] [address] [address] [place] [address] 07/17/2026 2:00 PM EDT Office Visit [facility] - Internal Medicine [address] [place] [phone] Ilya Gusman MD [address] [place] [phone] 07/19/2026 11:40 AM EDT Office Visit [facility] [address] [place] [address] Yesi Perez MD [address] [place] [address] documented as of this encounter Visit Diagnoses Not on filedocumented in this encounter Additional Health Concerns Assessment Noted Time PHQ-9 Depression Total Score: 16 025 11:49 AM EDT documented as of this encounter Care Teams Geospatial Extractor Analysis Relationship Specialty Start Date End Date Ilya Gusman MD [address] [place] [phone] PCP - General 05/14/17 [facility] 09/01/25 documented as of this encounter
--- OUTSIDE RECORDS SUMMARY | 2025-10-06 22:21 | XMS_ITS | Encounter Summary ---
Author Organization [facility] ystem Address [address] [place] [address] Phone Care Team Providers Care Registered Respiratory Technician Name Role Phone Ilya Gusman MD Primary Care Provider [phone] Encounter Details Date Type Department Care Team (Late st Contact Info) Description 03/04/2023 Orders Only [facility] - Health Information Department 143 [place] [address] Scan, No Provider Available [address] [facility] [place] [address] Social History Tobacco Use Types Packs/Day Years [...] 10/10/2025 10:30 AM EST Office Visit [facility] - Internal Medicine [address] [place] [phone] Ilya Gusman MD [address] [place] [address] [phone] Christophe Dailey MD [address] [place] [phone] 01/18/2026 1:00 PM EST Office Visit [facility] [address] [place] [address] Porsha Marsh, LEAD ADVISOR 70 [place] [address] 02/22/2026 11:00 AM EDT Office Visit [facility] [address] [place] [address] [address] [place] [phone] Alonso Bae MD [address] [place] [address] [address] [place] [address] 07/17/2026 2:00 PM EDT Office Visit [facility] - Internal Medicine [address] [place] [phone] Ilya Gusman MD [address] [place] [phone] 07/19/2026 11:40 AM EDT Office Visit [facility] [address] [place] [address] Yesi Perez MD 70 [place] [address] documented as of this encounter Procedures Procedure [...] documented as of this encounter Care Teams Registered Respiratory Technician Relationship Specialty Start Date End Date Ilya Gusman MD [address] [place] [phone] PCP - General 05/14/17 [facility] 09/01/25 documented as of this encounter
--- OUTSIDE RECORDS SUMMARY | 2025-10-06 22:21 | XMS_ITS | Encounter Summary ---
Author Organization [facility] ystem Address [address] [place] [address] Phone Care Team Providers Care Lockstitch Waistband Setter Name Role Phone Iyla Gusman MD Primary Care Provider [phone] Encounter Details Date Type Department Care Team (Late st Contact Info) Description 01/02/2023 Orders Only [facility] - Health Information Department 143 [facility] [place] [address] Scan, No Provider Available [address] [facility] [place] [address] Social History Tobacco Use Types Packs/Day Years [...] 10:30 AM EST Office Visit [facility] - Internal Medicine [address] [place] [phone] Ilya Gusman MD [address] [place] [phone] Christophe Dailey MD [address] [place] [phone] 01/18/2026 1:00 PM EST Office Visit [facility] [address] [place] [address] Porsha Marsh, BUSINESS MANAGEMENT PROFESSOR [address] [place] [address] 02/22/2026 11:00 AM EDT Office Visit [facility] [address] [place] [address] [address] [place] [phone] Alonso Bae MD [address] [place] [address] [address] [place] [address] 07/17/2026 2:00 PM EDT Office Visit [facility] - Internal Medicine [address] [place] [phone] Ilya Gusman MD [address] [place] [phone] 07/19/2026 11:40 AM EDT Office Visit [facility] [address] [place] [address] Yesi Perez MD [address] [place] [address] documented as of this encounter Procedures Procedure [...] documented as of this encounter Care Teams Lockstitch Waistband Setter Relationship Specialty Start Date End Date Ilya Gusman MD [address] [place] [phone] PCP - General 05/14/17 [facility] 09/01/25 documented as of this encounter
--- OUTSIDE RECORDS SUMMARY | 2025-10-06 22:21 | XMS_ITS | Encounter Summary ---
Author Organization [facility] ystem Address [address] [place] [address] Phone Care Team Providers Care Cobol Application Developer Name Role Phone Ilya Gusman MD Primary Care Provider [phone] Encounter Details Date Type Department Care Team (Late st Contact Info) Description 07/03/2025 Scanned Document [facility] - Health Information Department 143 [place], [place] [id number] Scan, No Provider Available [address] [facility] [place] [address] <No scans attached> Social History Tobacco Use [...] 10:30 AM EST Office Visit [facility] - Internal Medicine [address] [place] [phone] Ilya Gusman MD [address] [place] [phone] Christophe Dailey MD [address] [place] [phone] 01/18/2026 1:00 PM EST Office Visit [facility] [address] [address] Porsha Marsh CNP 70 [place] [address] 02/22/2026 11:00 AM EDT Office Visit [facility] [address] [place] [phone] Alonso Bae MD [address] [place] [address] 07/17/2026 2:00 PM EDT Office Visit [facility] - Internal Medicine [address] [place] [phone] Ilya Gusman MD [address] [place] [phone] 07/19/2026 11:40 AM EDT Office Visit [facility] [address] [address] Yesi Perez MD 70 [place] [address] documented as of this encounter Visit Diagnoses Not on filedocumented in this encounter Additional Health Concerns Assessment Noted Time PHQ-9 Depression Total Score: 16 025 11:49 AM EDT documented as of this encounter Care Teams Cobol Application Developer Relationship Specialty Start Date End Date Ilya Gusman MD [address] [place] [phone] PCP - General 05/14/17 [facility] 09/01/25 documented as of this encounter
--- OUTSIDE RECORDS SUMMARY | 2025-10-06 22:21 | XMS_ITS | Encounter Summary ---
Author Organization [facility] ystem Address [address] [place] [address] Phone Care Team Providers Care Soaker Helper Name Role Phone Ilya Gusman MD Primary Care Provider [phone] Encounter Details Date Type Department Care Team (Late st Contact Info) Description 02/25/2023 Scanned Document [facility] - Health Information Department 143 [place], [place] [id number] Scan, No Provider Available [address] [facility] [place] [address] <No scans attached> Social History Tobacco Use [...] Description 10/10/2025 10:30 AM EST Office Visit [facility] - Internal Medicine [address] [place] [phone] Ilya Gusman MD [address] [place] [phone] Christophe Dailey MD [address] [place] [address] [phone] 01/18/2026 1:00 PM EST Office Visit [facility] [address] [place] [address] Porsha Marsh, MARILIA [address] [place] [address] 02/22/2026 11:00 AM EDT Office Visit [facility] [address] [place] [address] [address] [place] [phone] Alonso Bae MD [address] [place] [address] [address] [place] [address] 07/17/2026 2:00 PM EDT Office Visit [facility] - Internal Medicine [address] [place] [phone] Ilya Gusman MD [address] [place] [phone] 07/19/2026 11:40 AM EDT Office Visit [facility] [address] [place] [address] Yesi Perez MD [address] [place] [address] documented as of this encounter Visit Diagnoses [...] documented as of this encounter Care Teams Soaker Helper Relationship Specialty Start Date End Date Ilya Gusman MD [address] [place] [phone] PCP - General 05/14/17 [facility] 09/01/25 documented as of this encounter
--- OUTSIDE RECORDS SUMMARY | 2025-10-06 22:21 | XMS_ITS | Encounter Summary ---
[facility] Address [address] [place] [address] Phone Care Team Providers Care Secondary School Teacher Librarian Name Role Phone Ilya Gusman MD Primary Care Provider [phone] Reason for Visit * Reason Comments Med Refill Encounter Details Date Type Department Care Team (Late st Contact Info) Description 04/25/2020 Refill [facility] - Internal Medicine [address] [place] [phone] Ilya Gusman MD [address] [place] [phone] Med Refill Social History Tobacco Use [...] [facility] - Internal Medicine [address] [place] [phone] Ilya Gusman MD [address] [place] [phone] Christophe Dailey MD [address] [place] [phone] 01/18/2026 1:00 PM EST Office Visit [facility] [address] [place] [address] Porsha Marsh, SOFA INSPECTOR [address] [place] [address] 02/22/2026 11:00 AM EDT Office Visit [facility] [address] [place] [address] [address] [place] [phone] Alonso Bae MD [address] [place] [address] [address] [place] [address] 07/17/2026 2:00 PM EDT Office Visit [facility] - Internal Medicine [address] [place] [phone] Ilya Gusman MD [address] [place] [phone] 07/19/2026 11:40 AM EDT Office Visit [facility] [address] [place] [address] Yesi Perez MD [address] [place] [address] documented as of this encounter Visit Diagnoses [...] documented as of this encounter Care Teams Secondary School Teacher Librarian Relationship Specialty Start Date End Date Ilya Gusman MD [address] [place] [phone] PCP - General 05/14/17 [facility] 09/01/25 documented as of this encounter
--- OUTSIDE RECORDS SUMMARY | 2025-10-06 22:21 | XMS_ITS | Encounter Summary ---
Author Organization [facility] Address [address] [place] [address] Phone Care Team Providers Care Canvas Goods Fabricator Name Role Phone Ilya Gusman MD Primary Care Provider [phone] Encounter Details Date Type Department Care Team (Late st Contact Info) Description 12/09/2022 Orders Only [facility] - Health Information Department 143 [facility] [place] [address] Scan, No Provider Available [address] [facility] [place] [address] Social History Tobacco Use Types Packs/Day Years [...] Description 10/10/2025 10:30 AM EST Office Visit [facility] - Internal Medicine [address] [place] [phone] Ilya Gusman MD [address] [place] [phone] Christophe Dailey MD [address] [place] [phone] 01/18/2026 1:00 PM EST Office Visit [facility] [address] [place] [address] Porsha Marsh, MEDICAL INSURANCE CLAIMS SPECIALIST [address] [place] [address] 02/22/2026 11:00 AM EDT Office Visit [facility] [address] [place] [address] [address] [place] [address] Alonso Bae MD [address] [place] [address] [address] [place] [address] 07/17/2026 2:00 PM EDT Office Visit [facility] - Internal Medicine [address] [place] [phone] Ilya Gusman MD [address] [place] [phone] 07/19/2026 11:40 AM EDT Office Visit [facility] [address] [place] [address] Yesi Perez MD [address] [place] [address] documented as of this encounter Procedures Procedure [...] as of this encounter Care Teams Canvas Goods Fabricator Relationship Specialty Start Date End Date Ilya Gusman MD [address] [place] [address] [phone] PCP - General 05/14/17 [facility] 09/01/25 documented as of this encounter
--- OUTSIDE RECORDS SUMMARY | 2025-10-06 22:21 | XMS_ITS | Encounter Summary ---
Author Organization [facility]stem Address [address] [place] [address] Phone Care Team Providers Care Log Pond Worker Name Role Phone Ilya Gusman MD Primary Care Provider [phone] Encounter Details Date Type Department Care Team (Late st Contact Info) Description 04/24/2020 Scanned Document [facility] - Health Information Department 143 [place] [address] Scan, No Provider Available [address] [facility] [place] [address] <No scans attached> Social History Tobacco Use [...] 10:30 AM EST Office Visit [facility] - Internal Medicine [address] [place] [phone] Ilya Gusman MD [address] [place] [phone] Christophe Dailey MD [address] [place] [phone] 01/18/2026 1:00 PM EST Office Visit [facility] [address] [place] [address] Porsha Marsh, MARILIA [address] [place] [address] 02/22/2026 11:00 AM EDT Office Visit [facility] [address] [place] [address] [address] [place] [phone] Alonso Bae MD [address] [place] [address] [address] [place] [address] 07/17/2026 2:00 PM EDT Office Visit [facility] - Internal Medicine [address] [place] [phone] Ilya Gusman MD [address] [place] [phone] 07/19/2026 11:40 AM EDT Office Visit [facility] [address] [place] [address] Yesi Perez MD [address] [place] [address] documented as of this encounter Visit Diagnoses [...] as of this encounter Care Teams Log Pond Worker Relationship Specialty Start Date End Date Ilya Gusman MD [address] [place] [phone] PCP - General 05/14/17 [facility] 09/01/25 documented as of this encounter
--- OUTSIDE RECORDS SUMMARY | 2025-10-06 22:21 | XMS_ITS | Clinical Summary ---
Author Organization [facility] Address [address] [place] [address] Care Team Providers Care Public Relations Specialist Name Role Phone Tc Story MD Unavailable [phone] Ilya Gusman MD Primary Care Provider [phone] Allergies Active Allergy Reactions Criticality Noted Date [...] patient's age to complete this topic Insurance [facility] [facility] [employer] Advance Directives For more information, please contact: [phone] * Full Code (Latest Code Status on File) Date Activated Date Inactivated Comments 03/02/2019 12:35 AM 03/01/2022 4:12 PM * Full Code Date Activated Date Inactivated Comments 03/29/2017 12:02 PM 04/02/2017 5:42 PM * Full Code Date Activated Date Inactivated Comments 11/05/2016 2:46 PM 11/10/2016 7:25 PM Care Teams Public Relations Specialist Relationship Specialty Start Date End Date Ilya Gusman MD [address] [place] [phone] PCP - General Internal Medicine 03/01/19 Tc Story MD [address] [place] [phone] Physician 04/02/17
--- OUTSIDE RECORDS SUMMARY | 2025-10-06 22:21 | XMS_ITS | Encounter Summary ---
Author Organization [facility] Address [address] [place] [address] Phone Care Team Providers Care Laminating Machine Tender Name Role Phone Ilya Gusman MD Primary Care Provider [phone] Encounter Details Date Type Department Care Team (Late st Contact Info) Description 07/08/2025 Scanned Document [facility] - Health Information Department 143 [place], [place] [id number] Scan, No Provider Available [address] [facility] [place] [address] <No scans attached> Social History Tobacco Use [...] Description 10/10/2025 10:30 AM EST Office Visit [facility] - Internal Medicine [address] [place] [phone] Ilya Gusman MD [address] [place] [phone] Christophe Dailey MD [address] [place] [phone] 01/18/2026 1:00 PM EST Office Visit [facility] [address] [address] Porsha Marsh CNP 70 [place] [address] 02/22/2026 11:00 AM EDT Office Visit [facility] [address] [place] [phone] Alonso Bae MD [address] [place] [address] 07/17/2026 2:00 PM EDT Office Visit [facility] - Internal Medicine [address] [place] [phone] Ilya Gusman MD [address] [place] [phone] 07/19/2026 11:40 AM EDT Office Visit [facility] [address] [address] Yesi Perez MD 70 [place] [address] documented as of this encounter Visit Diagnoses Not on filedocumented in this encounter Additional Health Concerns Assessment Noted Time PHQ-9 Depression Total Score: 16 025 11:49 AM EDT documented as of this encounter Care Teams Laminating Machine Tender Relationship Specialty Start Date End Date Ilya Gusman MD [address] [place] [phone] PCP - General 05/14/17 [facility] 09/01/25 documented as of this encounter
--- OUTSIDE RECORDS SUMMARY | 2025-10-06 22:21 | XMS_ITS | Encounter Summary ---
Author Organization [facility] Address [address] [place] [address] Phone Care Team Providers Care Hunter Trapper Name Role Phone Ilya Gusman MD Primary Care Provider [phone] Reason for Visit * Reason Comments Med Refill Encounter Details Date Type Department Care Team ([facility] Contact Info) Description 01/17/2023 Refill [facility] - Internal Medicine [address] [place] [address] [phone] Ilya Gusman MD [address] [place] [phone] Med Refill Social History Tobacco Use [...] 10/10/2025 10:30 AM EST Office Visit [facility] - Internal Medicine [address] [place] [phone] Ilya Gusman MD [address] [place] [phone] Christophe Dailey MD [address] [place] [phone] 01/18/2026 1:00 PM EST Office Visit [facility] [address] [place] [address] Porsha Marsh, WILDLIFE CONTROL OPERATOR [address] [place] [address] 02/22/2026 11:00 AM EDT Office Visit [facility] [address] [place] [address] [address] [place] [phone] Alonso Bae MD [address] [place] [address] [address] [place] [address] 07/17/2026 2:00 PM EDT Office Visit [facility] - Internal Medicine [address] [place] [phone] Ilya Gusman MD [address] [place] [phone] 07/19/2026 11:40 AM EDT Office Visit [facility] [address] [place] [address] Yesi Perez MD [address] [place] [address] documented as of this encounter Visit Diagnoses [...] documented as of this encounter Care Teams Hunter Trapper Relationship Specialty Start Date End Date Ilya Gusman MD [address] [place] [phone] PCP - General 05/14/17 [facility] 09/01/25 documented as of this encounter
--- OUTSIDE RECORDS SUMMARY | 2025-10-06 22:21 | XMS_ITS | Encounter Summary ---
Author Organization [facility] Address [address] [place] [address] Phone Care Team Providers Care Inspector And Tester Name Role Phone Ilya Gusamn MD Primary Care Provider [phone] Encounter Details Date Type Department Care Team (Late st Contact Info) Description 08/26/2022 Orders Only [facility] - Health Information Department 143 [facility] [place] [address] Scan, No Provider Available [address] [facility] [place] [address] Social History Tobacco Use Types Packs/Day Years [...] 10:30 AM EST Office Visit [facility] - Internal Medicine [address] [place] [phone] Ilya Gusman MD [address] [place] [address] [phone] Christophe Dailey MD [address] [place] [phone] 01/18/2026 1:00 PM EST Office Visit [facility] [address] [place] [address] Porsha Marsh, CUSTOMS COMPLIANCE DIRECTOR [address] [place] [address] 02/22/2026 11:00 AM EDT Office Visit [facility] [address] [place] [address] [address] [place] [phone] Alonso Bae MD [address] [place] [address] [address] [place] [address] 07/17/2026 2:00 PM EDT Office Visit [facility] - Internal Medicine [address] [place] [phone] Ilya Gusman MD [address] [place] [phone] 07/19/2026 11:40 AM EDT Office Visit [facility] [address] [place] [address] Yesi Perez MD [address] [place] [address] documented as of this encounter Procedures Procedure [...] of this encounter Care Teams Inspector And Tester Relationship Specialty Start Date End Date Ilya Gusman MD [address] [place] [address] [phone] PCP - General 05/14/17 [facility] 09/01/25 documented as of this encounter
--- OUTSIDE RECORDS SUMMARY | 2025-10-06 22:21 | XMS_ITS | Encounter Summary ---
Author Organization [facility]stem Address [address] [place] [address] Phone Care Team Providers Care Category Development Manager Name Role Phone Ilya Gusman MD Primary Care Provider [phone] Encounter Details Date Type Department Care Team (Late st Contact Info) Description 12/19/2022 Orders Only [facility] - Health Information Department 143 [place] [address] Scan, No Provider Available [address] [facility] [place] [address] Social History Tobacco Use Types Packs/Day Years [...] 10:30 AM EST Office Visit [facility] - Internal Medicine [address] [place] [phone] Ilya Gusman MD [address] [place] [address] [phone] Christophe Dailey MD [address] [place] [phone] 01/18/2026 1:00 PM EST Office Visit [facility] [address] [place] [address] Porsha Marsh, MARILIA [address] [place] [address] 02/22/2026 11:00 AM EDT Office Visit [facility] [address] [place] [address] [address] [place] [phone] Alonso Bae MD [address] [place] [address] [address] [place] [address] 07/17/2026 2:00 PM EDT Office Visit [facility] - Internal Medicine [address] [place] [phone] Ilya Gusman MD [address] [place] [phone] 07/19/2026 11:40 AM EDT Office Visit [facility] [address] [place] [address] Yesi Perez MD [address] [place] [address] documented as of this encounter Procedures Procedure [...] documented as of this encounter Care Teams Category Development Manager Relationship Specialty Start Date End Date Ilya Gusman MD [address] [place] [phone] PCP - General 05/14/17 [facility] 09/01/25 documented as of this encounter
--- OUTSIDE RECORDS SUMMARY | 2025-10-06 22:22 | XMS_ITS | Encounter Summary ---
[facility] Organization [facility] Address [address] [place] [address] Phone Care Team Providers Care Cattle And Wheat Farmer Name Role Phone Ilya Gusman MD Primary Care Provider [phone] Encounter Details Date Type Department Care Team (Late Contact Info) Description 08/22/2017 Scanned Document [facility] - Health Information Department [address] [place] [address] Scan, No Provider Available [address] [place] [address] [place] [address] <No scans attached> Social History Tobacco Use [...] 10:30 AM EST Office Visit [facility] - Internal Medicine [address] [place] [phone] Ilya Gusman MD [address] [place] [phone] Christophe Dailey MD [address] [place] [phone] 01/18/2026 1:00 PM EST Office Visit [facility] [address] [place] [address] Porsha Marsh, WEIGHT ANALYST 70 [place] [address] 02/22/2026 11:00 AM EDT Office Visit [facility] [address] [place] [address] [address] [place] [phone] Alonso Bae MD [address] [place] [address] 2 [place] [address] 07/17/2026 2:00 PM EDT Office Visit [facility] - Internal Medicine [address] [place] [phone] Ilya Gusman MD [address] [place] [phone] 07/19/2026 11:40 AM EDT Office Visit [facility] [address] [place] [address] Yesi Perez MD [address] [place] [address] documented as of this encounter Visit Diagnoses [...] documented as of this encounter Care Teams Cattle And Wheat Farmer Relationship Specialty Start Date End Date Ilya Gusman MD [address] [place] [address] [phone] PCP - General 05/14/17 [facility] 09/01/25 documented as of this encounter
--- OUTSIDE RECORDS SUMMARY | 2025-10-06 22:22 | XMS_ITS | Encounter Summary ---
Author Organization [facility] Address [address] [place] [address] Phone Care Team Providers Care Decaler Name Role Phone Ilya Gusman MD Primary Care Provider [phone] Encounter Details Date Type Department Care Team (Late st Contact Info) Description 04/02/2021 Scanned Document [facility] - Health Information Department 143 [place], [place] [id number] Scan, No Provider Available [address] [facility] [place] [address] <No scans attached> Social History Tobacco Use [...] 10/10/2025 10:30 AM EST Office Visit [facility] - Internal Medicine [address] [place] [phone] Ilya Gusman MD [address] [place] [phone] Christophe Dailey MD [address] [place] [phone] 01/18/2026 1:00 PM EST Office Visit [facility] [address] [place] [address] Porsha Marsh, DEPARTMENT HEAD [address] [place] [address] 02/22/2026 11:00 AM EDT Office Visit [facility] [address] [place] [address] [address] [place] [phone] Alonso Bae MD [address] [place] [address] [address] [place] [address] 07/17/2026 2:00 PM EDT Office Visit [facility] - Internal Medicine [address] [place] [phone] Ilya Gusman MD [address] [place] [phone] 07/19/2026 11:40 AM EDT Office Visit [facility] [address] [place] [address] Yesi Perez MD [address] [place] [address] documented as of this encounter Visit Diagnoses [...] documented as of this encounter Care Teams Decaler Relationship Specialty Start Date End Date Ilya Gusman MD [address] [place] [address] [phone] PCP - General 05/14/17 [facility] 09/01/25 documented as of this encounter
--- OUTSIDE RECORDS SUMMARY | 2025-10-06 22:22 | XMS_ITS | Encounter Summary ---
[facility] Address [address] [place] [address] Phone Care Team Providers Care Leaded Glass Installer Name Role Phone Ilya Gusman MD Primary Care Provider [phone] Encounter Details Date Type Department Care Team (Late st Contact Info) Description 07/07/2017 Orders Only [address] [phone] Social History Tobacco Use Types [...] 10/10/2025 10:30 AM EST Office Visit [facility] - Internal Medicine [address] [place] [phone] Ilya Gusman MD [address] [place] [phone] Christophe Dailey MD [address] [place] [phone] 01/18/2026 1:00 PM EST Office Visit [facility] 70 [facility] 1 [place] [address] Porsha Marsh, RAILROAD INSPECTOR 70 [place] [address] 02/22/2026 11:00 AM EDT Office Visit [facility] [address] [place] [address] [address] [place] [phone] Alonso Bae MD [address] [place] [address] [address] [place] [address] 07/17/2026 2:00 PM EDT Office Visit [facility] - Internal Medicine [address] [place] [phone] Ilya Gusman MD [address] [place] [phone] 07/19/2026 11:40 AM EDT Office Visit [facility] [address] [place] [address] Yesi Perez MD [address] [place] [address] documented as of this encounter Visit Diagnoses [...] documented as of this encounter Care Teams Leaded Glass Installer Relationship Specialty Start Date End Date Ilya Gusman MD [address] [place] [phone] PCP - General 05/14/17 [facility] 09/01/25 documented as of this encounter
--- OUTSIDE RECORDS SUMMARY | 2025-10-06 22:22 | XMS_ITS | Encounter Summary ---
Author Organization [facility] ystem Address [address] [place] [address] Phone Care Team Providers Care Manufacturing Management Associate Name Role Phone Ilya Gusman MD Primary Care Provider [phone] Encounter Details Date Type Department Care Team ([facility] Contact Info) Description 11/18/2023 Orders Only [facility] - Health Information Department [address] [place] [address] Scan, No Provider Available [address] [place] [address] [address] [place] [phone] Social History Tobacco Use Types Packs/Day Years [...] Date Type Department Care Team ([facility] Contact Info) Description 10/10/2025 10:30 AM EST Office Visit [facility] - Internal Medicine [address] [place] [phone] Ilya Gusman MD [address] [place] [phone] Christophe Dailey MD [address] [place] [phone] 01/18/2026 1:00 PM EST Office Visit [facility] [address] [place] [address] Porsha Marsh, EXTRACT WRINGER [address] [place] [address] 02/22/2026 11:00 AM EDT Office Visit [facility] [address] [place] [address] [address] [place] [phone] Alonso Bae MD [address] [place] [address] [address] [place] [address] 07/17/2026 2:00 PM EDT Office Visit [facility] - Internal Medicine [address] [place] [phone] lIya Gusman MD [address] [place] [phone] 07/19/2026 11:40 AM EDT Office Visit [facility] [address] [place] [address] Yesi Perez MD [address] [place] [address] documented as of this encounter Procedures Procedure [...] documented as of this encounter Care Teams Manufacturing Management Associate Relationship Specialty Start Date End Date Ilya Gusman MD [address] [place] [phone] PCP - General 05/14/17 [facility] 09/01/25 documented as of this encounter
--- OUTSIDE RECORDS SUMMARY | 2025-10-06 22:22 | XMS_ITS | Encounter Summary ---
Author Organization [facility] ystem Address [address] [place] [address] Phone Care Team Providers Care Ship'S Pilot Name Role Phone Ilya Gusman MD Primary Care Provider [phone] Encounter Details Date Type Department Care Team (Late st Contact Info) Description 06/25/2017 Procedure Pass [facility] [address] [place] [address] Social History Tobacco Use Types [...] alcohol? Answer Date of Assessment Author 0 06/25/2017 5:29 PM Sabrina Vasquez RN * How many standard drinks containing alcohol do you have on a typical day? Answer Date of Assessment Author 0 06/25/2017 5:29 PM Sabrina Vasquez RN * How often do you have six or more drinks on one occasion? Answer Date of Assessment Author 0 06/25/2017 5:29 PM EDT Sabrina Marin, DOMINGA * Audit-C Score Answer Date of Assessment Author 0 06/25/2017 5:29 PM EDT Sabrina Marin RN documented as of this encounter Plan of Treatment Upcoming Encounters Date Type Department Care Team (Late st Contact Info) Description 10/10/2025 10:30 AM EST Office Visit [facility] - Internal Medicine [address] [place] [phone] Ilya Gusman MD [address] [place] [phone] Christophe Dailey MD [address] [place] [address] [phone] 01/18/2026 1:00 PM EST Office Visit [facility] 1 [place] [address] Porsha Marsh, AOC AADC OPERATIONS STAFF OFFICER 70 [place] [address] 02/22/2026 11:00 AM EDT Office Visit [facility] [address] [place] [address] [address] [place] [address] Alonso Bae MD [address] [place] [address] [address] [place] [address] 07/17/2026 2:00 PM EDT Office Visit [facility] [address] [place] [phone] Ilya Gusman MD [address] [place] [phone] 07/19/2026 11:40 AM EDT Office Visit [facility] [address] [place] [address] Yesi Perez MD 70 [place] [address] documented as of this encounter Visit Diagnoses [...] documented as of this encounter Care Teams Ship'S Pilot Relationship Specialty Start Date End Date Ilya Gusman MD [address] [place] [phone] PCP - General 05/14/17 [facility] 09/01/25 documented as of this encounter
--- OUTSIDE RECORDS SUMMARY | 2025-10-06 22:22 | XMS_ITS | Encounter Summary ---
[facility] Address [address] [place] [address] Phone Care Team Providers Care Glue Mounter Operator Name Role Phone lIya Gusman MD Primary Care Provider [phone] Encounter Details Date Type Department Care Team (Late st Contact Info) Description 05/16/2017 Scanned Document [facility] - Health Information Department [address] [place] [phone] Scan, No Provider Available [address] [place] [address] [facility] [place] [address] <No scans attached> Social History Tobacco Use [...] 10/10/2025 10:30 AM EST Office Visit [facility] - Internal Medicine [address] [place] [phone] Ilya Gusman MD [address] [place] [address] [phone] Christophe Dailey MD [address] [place] [phone] 01/18/2026 1:00 PM EST Office Visit [facility] [address] [place] [address] 1 [place] [address] Porsha Marsh, CAD DRAFTER 70 [place] [address] 02/22/2026 11:00 AM EDT Office Visit [facility] [address] [place] [address] [address] [place] [phone] Alonso Bae MD [address] [place] [address] [address] [place] [address] 07/17/2026 2:00 PM EDT Office Visit [facility] - [facility] Medicine [address] [place] [phone] Ilya Gusmna MD [address] [place] [phone] 07/19/2026 11:40 AM EDT Office Visit [facility] [address] [place] [address] Yesi Perez MD [address] [place] [address] documented as of this encounter Visit Diagnoses [...] documented as of this encounter Care Teams Glue Mounter Operator Relationship Specialty Start Date End Date Ilya Gusman MD [address] [place] [phone] PCP - General 05/14/17 [facility] 09/01/25 documented as of this encounter
--- OUTSIDE RECORDS SUMMARY | 2025-10-06 22:22 | XMS_ITS | Encounter Summary ---
Author Organization [facility] ystem Address [address] [place] [address] Phone Care Team Providers Care Commercial Real Estate Appraiser Name Role Phone Ilya Gusman MD Primary Care Provider [phone] Encounter Details Date Type Department Care Team (Late st Contact Info) Description 11/30/2022 Scanned Document [facility] - Health Information Department [address] [place], [place] [phone] Scan, No Provider Available [address] [facility] [place] [address] <No scans attached> Social History Tobacco Use [...] [facility] - Internal Medicine [address] [place] [phone] Ilya Gusman MD [address] [place] [phone] Christophe Dailey MD [address] [place] [phone] 01/18/2026 1:00 PM EST Office Visit [facility] [address] [place] [address] Porsha Marsh, MARILIA [address] [place] [address] 02/22/2026 11:00 AM EDT Office Visit [facility] [address] [place] [address] [address] [place] [phone] Alonso Bae MD [address] [place] [address] [address] [place] [address] 07/17/2026 2:00 PM EDT Office Visit [facility] - Internal Medicine [address] [place] [phone] Ilya Gusman MD [address] [place] [phone] 07/19/2026 11:40 AM EDT Office Visit [facility] [address] [place] [address] Yesi Perez MD [address] [place] [address] documented as of this encounter Visit Diagnoses [...] as of this encounter Care Teams Commercial Real Estate Appraiser Relationship Specialty Start Date End Date Ilya Gusman MD [address] [place] [phone] PCP - General 05/14/17 [facility] 09/01/25 documented as of this encounter
--- OUTSIDE RECORDS SUMMARY | 2025-10-06 22:22 | XMS_ITS | Encounter Summary ---
Author Organization [facility] ystem Address [address] [place] [address] Phone Care Team Providers Care Bar Captain Name Role Phone Ilya Gusman MD Primary Care Provider [phone] Encounter Details Date Type Department Care Team (Late Contact Info) Description 08/27/2017 Orders Only [facility] - X-Ray Imaging 55 [place] [address] Osmin Barnes MD 55 [place] [address] Social History Tobacco Use Types Packs/Day Years [...] [facility] Medicine [address] [place] [phone] Ilya Gusman MD [address] [place] [phone] Christophe Dailey MD [address] [place] [address] [phone] 01/18/2026 1:00 PM EST Office Visit [facility] [address] [place] [address] Porsha Marsh, CUFF STITCHER [address] [place] [address] 02/22/2026 11:00 AM EDT Office Visit [facility] [address] [place] [address] [address] [place] [phone] Alonso Bae MD [address] [place] [address] [address] [place] [address] 07/17/2026 2:00 PM EDT Office Visit [facility] - Internal Medicine [address] [place] [phone] Ilya Gusman MD [address] [place] [phone] 07/19/2026 11:40 AM EDT Office Visit [facility] [address] [place] [address] Yesi Perez MD [address] [place] [address] documented as of this encounter Visit Diagnoses Not on filedocumented in this encounter Additional Health Concerns Infection Onset Date Last Indicated Resolved Time Covid Possible 08/21/2021 08/21/2021 08/21/2021 10 :22 PM EDT Covid Possible 05/24/2022 05/24/202205/24/2022 4: 21 PM EDT C difficile Rule-Out [...] documented as of this encounter Care Teams Bar Captain Relationship Specialty Start Date End Date Ilya Gusman MD [address] [place] [phone] PCP - General 05/14/17 [facility] 09/01/25 documented as of this encounter
--- OUTSIDE RECORDS SUMMARY | 2025-10-06 22:22 | XMS_ITS | Encounter Summary ---
[facility] Address [address] [place] [address] Phone Care Team Providers Care Ceramic Tile Installation Helper Name Role Phone Ilya Gusman MD Primary Care Provider Reason for Referral * Consultation (1 Month) - Closed Specialty Diagnoses / Procedures Referred By Contac t Referred To Contact Endocrinology Diagnoses Diabetes mellitus without complication ([facility]) Ilya Gusman MD [address] [place] [phone] Phone: tel: fax: Luz Maria Victor PA-C Phone: tel: fax: Referral ID Status Reason Start Date Expiration Date V isits Requested Visits Authorized [id number] Closed Specialty Services Required 09/18/2017 09/19/2018 6 6 * Consultation (1 Month) - Closed Specialty Diagnoses / Procedures Referred By Contact Referred To Contact Orthopedic / Orthopedics Diagnoses Right leg pain Ilya Gusman MD [address] [place] [phone] Phone: tel: fax: Andres Gandara MD [facility] [address] [place] [address] Phone: tel: fax: Referral ID Status Reason Start Date Expiration Date V isits Requested Visits Authorized [id number] Closed Specialty Services Required 09/16/2017 09/17/2018 6 6 Encounter Details Date Type Department Care Team (Late st Contact Info) Description 09/16/2017 Orders Only [address] [phone] Ilya Gusman MD [address] [place] [address] [phone] Right leg pain (Primary Dx); Diabetes mellitus [...] 10/10/2025 10:30 AM EST Office Visit [facility] - Internal Medicine [address] [place] [address] [phone] Ilya Gusman MD [address] [place] [phone] Christophe Dailey MD [address] [place] [address] [phone] 01/18/2026 1:00 PM EST Office Visit [facility] [address] [address] Porsha Marsh, HOSPICE COORDINATOR 70 [place] [address] 02/22/2026 11:00 AM EDT Office Visit [facility] [address] [place] [address] Alonso Bae MD [address] [place] [address] 07/17/2026 2:00 PM EDT Office Visit [facility] - [facility] Medicine [address] [place] [phone] Ilya Gusman MD [address] [place] [address] [phone] 07/19/2026 11:40 AM EDT Office Visit [facility] 70 [facility] 1 [place] [address] Yesi Perez MD 70 [place] [address] Scheduled Referrals Name Type Priority Associated Diagnoses Orde r Schedule Referral Orthopedic-Outg [facility] Outpatient Referral Routine Right leg pain 1 Occurrences starting 09/16/2017 until 03/17/2018 Referral Endocrinology-I [facility]ternal-[facility] Outpatient Referral Routine Diabetes mellitus without complication [...] documented as of this encounter Care Teams Ceramic Tile Installation Helper Relationship Specialty Start Date End Date Ilya Gusman MD [address] [place] [phone] PCP - General 05/14/17 [facility] 09/01/25 documented as of this encounter
--- OUTSIDE RECORDS SUMMARY | 2025-10-06 22:22 | XMS_ITS | Encounter Summary ---
Author Organization [facility] ystem Address [address] [place] [address] Phone Care Team Providers Care Administration Assistant Name Role Phone Ilya Gusman MD Primary Care Provider [phone] Encounter Details Date Type Department Care Team (Late Contact Info) Description 11/13/2023 Scanned Document [facility] - Health Information Department [address] [place] [address] Scan, No Provider Available [address] [place] [address] [place] [address] <No scans attached> Social History Tobacco Use [...] ([facility] Contact Info) Description 10/10/2025 10:30 AM EST Office Visit [facility] - Internal Medicine [address] [place] [phone] Ilya Gusman MD [address] [place] [phone] Christophe Dailey MD [address] [place] [address] [phone] 01/18/2026 1:00 PM EST Office Visit [facility] [address] [place] [address] Porsha Marsh, SUPERANNUATION CLERK [address] [place] [address] 02/22/2026 11:00 AM EDT Office Visit [facility] [address] [place] [address] [address] [place] [phone] Alonso Bae MD [address] [place] [address] [address] [place] [address] 07/17/2026 2:00 PM EDT Office Visit [facility] - Internal Medicine [address] [place] [phone] Ilya Gusman MD [address] [place] [phone] 07/19/2026 11:40 AM EDT Office Visit [facility] [address] [place] [address] Yesi Perez MD [address] [place] [address] documented as of this encounter Visit Diagnoses [...] documented as of this encounter Care Teams Administration Assistant Relationship Specialty Start Date End Date Ilya Gusman MD [address] [place] [phone] PCP - General 05/14/17 [facility] 09/01/25 documented as of this encounter
--- OUTSIDE RECORDS SUMMARY | 2025-10-06 22:22 | XMS_ITS | Encounter Summary ---
[facility] [address] [place] [address] Phone Care Team Providers Care Pipe Layer Name Role Phone Ilya Gusman MD Primary Care Provider [phone] Encounter Details Date Type Department Care Team (Late Contact Info) Description 06/12/2017 Scanned Document [facility] [place] [phone] Alejandro Lion MD [facility] at [address] [place] [address] <No scans attached> Social History Tobacco Use [...] 10/10/2025 10:30 AM EST Office Visit [facility] - Internal Medicine [address] [place] [phone] Ilya Gusman MD [address] [place] [phone] Christophe Dailey MD [address] [place] [phone] 01/18/2026 1:00 PM EST Office Visit [facility] [address] [place] [address] Porsha Marsh, HOOKER OPERATOR 70 [place] [address] 02/22/2026 11:00 AM EDT Office Visit [facility] [address] [place] [address] [place] [phone] Alonso Bae MD [address] [place] [address] 07/17/2026 2:00 PM EDT Office Visit [facility] - [facility] Medicine [address] [place] [address] [phone] Ilya Gusman MD [address] [place] [phone] 07/19/2026 11:40 AM EDT Office Visit [facility] [address] [place] [address] Yesi Perez MD [address] [place] [address] documented as of this encounter Visit Diagnoses [...] as of this encounter Care Teams Pipe Layer Relationship Specialty Start Date End Date Ilya Gusman MD [address] [place] [address] [phone] PCP - General 05/14/17 [facility] 09/01/25 documented as of this encounter
--- OUTSIDE RECORDS SUMMARY | 2025-10-06 22:22 | XMS_ITS | Encounter Summary ---
Author Organization [facility] ystem Address [address] [place] [address] Phone Care Team Providers Care Crank Hand Name Role Phone Ilya Gusman MD Primary Care Provider [phone] Encounter Details Date Type Department Care Team (Late Contact Info) Description 08/27/2017 Procedure Pass [facility] - MR Imaging 55 [place] [address] Social History Tobacco Use Types [...] Upcoming Encounters Date Type Department Care Team ([facility] Contact Info) Description 10/10/2025 10:30 AM EST Office Visit [facility] - Internal Medicine [address] [place] [phone] Ilya Gusman MD [address] [place] [phone] Christophe Dailey MD [address] [place] [phone] 01/18/2026 1:00 PM EST Office Visit [facility] [address] [place] [address] 1 [place] [address] Porsha Marsh, MARINE CARGO SURVEYOR 70 [place] [address] 02/22/2026 11:00 AM EDT Office Visit [facility] [address] [place] [address] [address] [place] [phone] Alonso Bae MD [address] [place] [address] [address] [place] [address] 07/17/2026 2:00 PM EDT Office Visit [facility] - Internal Medicine [address] [place] [phone] Ilya Gusman MD [address] [place] [phone] 07/19/2026 11:40 AM EDT Office Visit [facility] [address] [place] [address] Yesi Perez MD [address] [place] [address] documented as of this encounter Visit Diagnoses [...] documented as of this encounter Care Teams Crank Hand Relationship Specialty Start Date End Date Ilya Gusman MD [address] [place] [phone] PCP - General 05/14/17 [facility] 09/01/25 documented as of this encounter
--- OUTSIDE RECORDS SUMMARY | 2025-10-06 22:22 | XMS_ITS | Encounter Summary ---
Author Organization [facility] ystem Address [address] [place] [address] Phone Care Team Providers Care Telecommunications Line Mechanic Name Role Phone Ilya Gusman MD Primary Care Provider [phone] Encounter Details Date Type Department Care Team (Late st Contact Info) Description 03/22/2021 Scanned Document [facility] - Health Information Department [address] [place], [place] [phone] Scan, No Provider Available [address] [facility] [place] [id number] <No scans attached> Social History Tobacco Use [...] alcohol? Answer Date of Assessment Author 0 03/22/2021 10:08 PM EDT Carolyn Cordoba RN * How many standard drinks containing alcohol do you have on a typical day? Answer Date of Assessment Author 0 03/22/2021 10:08 PM EDT Carolyn Cordoba RN * How often do you have six or more drinks on one occasion? Answer Date of Assessment Author 0 03/22/2021 10:08 PM EDT Carolyn Cordoba RN * Audit-C Score Answer Date of Assessment Author 0 03/22/2021 10:08 PM EDT Carolyn Cordoba RN documented as of this encounter Plan of Treatment Upcoming Encounters Date Type Department Care Team (Late st Contact Info) Description 10/10/2025 10:30 AM EST Office Visit [facility] - Internal Medicine [address] [place] [phone] Ilya Gusman MD [address] [place] [phone] Christophe Dailey MD [address] [place] [address] [phone] 01/18/2026 1:00 PM EST Office Visit [facility] 70 [facility] 1 [place] [address] Porsha Marsh, OFFENDER JOB RETENTION SPECIALIST 70 [place] [address] 02/22/2026 11:00 AM EDT Office Visit [facility] [address] [place] [address] [address] [place] [phone] Alonso Bae MD [address] [place] [address] [address] [place] [address] 07/17/2026 2:00 PM EDT Office Visit [facility] - Internal Medicine [address] [place] [phone] Ilya Gusman MD 143 [place] [phone] 07/19/2026 11:40 AM EDT Office Visit [facility] [address] [address] Yesi Perez MD 70 [place] [address] documented as of this encounter Visit Diagnoses [...] documented as of this encounter Care Teams Telecommunications Line Mechanic Relationship Specialty Start Date End Date Ilya Gusman MD [address] [place] [phone] PCP - General 05/14/17 [facility] 09/01/25 documented as of this encounter
--- OUTSIDE RECORDS SUMMARY | 2025-10-06 22:22 | XMS_ITS | Encounter Summary ---
[facility] Address [address] [place] [address] Phone Care Team Providers Care Rack Washer Name Role Phone Ilya Gusman MD Primary Care Provider [phone] Encounter Details Date Type Department Care Team (Late Contact Info) Description 08/14/2017 Orders Only [facility] Care [address] [place] [phone] Lynne Da Silva RN Social History Tobacco [...] [facility] [address] [place] [phone] Iyla Gusman MD [address] [place] [phone] Christophe Dailey MD [address] [place] [phone] 01/18/2026 1:00 PM EST Office Visit [facility] [address] [place] [address] 1 [place] [address] Porsha Marsh, CARBONATION EQUIPMENT TENDER 70 [place] [address] 02/22/2026 11:00 AM EDT Office Visit [facility] [address] [place] [address] [address] [place] [phone] Alonso Bae MD [address] [place] [address] [address] [place] [address] 07/17/2026 2:00 PM EDT Office Visit [facility] - Internal Medicine [address] [place] [phone] Ilya Gusman MD [address] [place] [phone] 07/19/2026 11:40 AM EDT Office Visit [facility] [address] [place] [address] Yesi Perez MD [address] [place] [address] documented as of this encounter Visit Diagnoses [...] documented as of this encounter Care Teams Rack Washer Relationship Specialty Start Date End Date Ilya Gusman MD [address] [place] [phone] PCP - General 05/14/17 [facility] 09/01/25 documented as of this encounter
--- OUTSIDE RECORDS SUMMARY | 2025-10-06 22:22 | XMS_ITS | Encounter Summary ---
Author Organization [facility] Address [address] [place] [address] Phone Care Team Providers Care Signs Cleaner Name Role Phone Ilya Gusman MD Primary Care Provider [phone] Reason for Visit * Reason Comments Med Refill Encounter Details Date Type Department Care Team (Late Contact Info) Description 07/08/2017 Refill [facility] - Internal Medicine [address] [place] [address] [phone] Ilya Gusman MD [address] [place] [phone] Med Refill Social History Tobacco Use [...] 10/10/2025 10:30 AM EST Office Visit [facility] - Internal Medicine [address] [place] [phone] Ilya Gusman MD [address] [place] [phone] Christophe Dailey MD [address] [place] [phone] 01/18/2026 1:00 PM EST Office Visit [facility] [address] [place] [address] Porsha Marsh CNP 70 [place] [address] 02/22/2026 11:00 AM EDT Office Visit [facility] [address] [place] [address] [address] [place] [phone] Alonso Bae MD [address] [place] [address] [address] [place] [address] 07/17/2026 2:00 PM EDT Office Visit [facility] - Internal Medicine [address] [place] [phone] Ilya Gusman MD [address] [place] [address] [phone] 07/19/2026 11:40 AM EDT Office Visit [facility] [address] [place] [address] Yesi Perez MD [address] [place] [address] documented as of this encounter Visit Diagnoses [...] documented as of this encounter Care Teams Signs Cleaner Relationship Specialty Start Date End Date Ilya Gusman MD [address] [place] [phone] PCP - General 05/14/17 [facility] 09/01/25 documented as of this encounter
--- OUTSIDE RECORDS SUMMARY | 2025-10-06 22:22 | XMS_ITS | Encounter Summary ---
[facility] Address [address] [place] [address] Phone Care Team Providers Care Set Designer Name Role Phone Ilya Gusman MD Primary Care Provider [phone] Encounter Details Date Type Department Care Team (Late Contact Info) Description 09/16/2017 Scanned Document [facility] - Health Information Department [address] [place] [phone] Scan, No Provider Available [address] [place] [address] [place] [address] <No scans attached> Social History Tobacco Use [...] 10:30 AM EST Office Visit [facility] - Internal Medicine [address] [place] [phone] Ilya Gusman MD [address] [place] [phone] Christophe Dailey MD [address] [place] [phone] 01/18/2026 1:00 PM EST Office Visit [facility] [address] [place] [address] Porsha Marsh, SALES MERCHANDISER 70 [place] [address] 02/22/2026 11:00 AM EDT Office Visit [facility] [address] [place] [address] [address] [place] [phone] Alonso Bae MD [address] [place] [address] 2 [place] [address] 07/17/2026 2:00 PM EDT Office Visit [facility] - Internal Medicine [address] [place] [phone] Ilya Gusman MD [address] [place] [phone] 07/19/2026 11:40 AM EDT Office Visit [facility] [address] [place] [address] Yesi Perez MD [address] [place] [address] documented as of this encounter Visit Diagnoses [...] documented as of this encounter Care Teams Set Designer Relationship Specialty Start Date End Date Ilya Gusman MD [address] [place] [address] [phone] PCP - General 05/14/17 [facility] 09/01/25 documented as of this encounter
--- OUTSIDE RECORDS SUMMARY | 2025-10-06 22:22 | XMS_ITS | Encounter Summary ---
[facility] Address [address] [place] [address] Phone Care Team Providers Care Automation And Controls Supervisor Name Role Phone Ilya Gusman MD Primary Care Provider [phone] Reason for Visit * Reason Onset Date Comments Med Refill 12/01/2022 Encounter Details Date Type Department Care Team ([facility] Contact Info) Description 12/01/2022 Telephone [facility] - Family Medicine [address] [place] [phone] Sara Richards, DOMINGA Med Refill Social [...] Patient verbalizes clear und erstanding. Sara Richards, meter reader Medicine documented in this encounter Plan of Treatment Upcoming Encounters Date Type Department Care Team (Late st Contact Info) Description 10/10/2025 10:30 AM EST Office Visit [facility] - Internal Medicine [address] [place] [phone] Ilya Gusman MD [address] [place] [phone] Christophe Dailey MD [address] [place] [phone] 01/18/2026 1:00 PM EST Office Visit [facility] 70 [facility] 1 [place] [address] Porsha Marsh, TYPEWRITER ALIGNER [address] [place] [address] 02/22/2026 11:00 AM EDT Office Visit [facility] [address] [place] [address] [address] [place] [phone] Alonso Bae MD [address] [place] [address] [address] [place] [address] 07/17/2026 2:00 PM EDT Office Visit [facility] - Internal Medicine 143 [place] [phone] Ilya Gusman MD [address] [place] [phone] 07/19/2026 11:40 AM EDT Office Visit [facility] [address] [address] Yesi Perez MD 70 [place] [address] documented as of this encounter Visit Diagnoses [...] documented as of this encounter Care Teams Automation And Controls Supervisor Relationship Specialty Start Date End Date Ilya Gusman MD [address] [place] [phone] PCP - General 05/14/17 [facility] 09/01/25 documented as of this encounter
--- OUTSIDE RECORDS SUMMARY | 2025-10-06 22:22 | XMS_ITS | Encounter Summary ---
Author Organization [facility] Address [address] [place] [address] Phone Care Team Providers Care Spray Gun Repairer Helper Name Role Phone Ilya Gusman MD Primary Care Provider [phone] Encounter Details Date Type Department Care Team (Late st Contact Info) Description 06/05/2017 Scanned Document [facility] - Health Information Department [address] [place] [address] Scan, No Provider Available [address] [place] [address] [place] [address] <No scans attached> Social History Tobacco Use [...] Description 10/10/2025 10:30 AM EST Office Visit [facility] - Internal Medicine [address] [place] [phone] Ilya Gusman MD [address] [place] [phone] Christophe Dailey MD [address] [place] [phone] 01/18/2026 1:00 PM EST Office Visit [facility] 70 [facility] 1 [place] [address] Porsha Marsh, COURT OFFICER 70 [place] [address] 02/22/2026 11:00 AM EDT Office Visit [facility] [address] [facility] [address] [place] [phone] Alonso Bae MD [address] [place] [address] [address] [place] [address] 07/17/2026 2:00 PM EDT Office Visit [facility] - Internal Medicine [address] [place] [phone] Ilya Gusman MD [address] [place] [phone] 07/19/2026 11:40 AM EDT Office Visit [facility] [address] [place] [address] Yesi Perez MD [address] [place] [address] documented as of this encounter Visit Diagnoses [...] documented as of this encounter Care Teams Spray Gun Repairer Helper Relationship Specialty Start Date End Date Ilya Gusman MD [address] [place] [phone] PCP - General 05/14/17 [facility] 09/01/25 documented as of this encounter
--- OUTSIDE RECORDS SUMMARY | 2025-10-06 22:22 | XMS_ITS | Encounter Summary ---
Author Organization [facility] Address [address] [place] [address] Phone Care Team Providers Care Warehouse Associate Name Role Phone Ilya Gusman MD Primary Care Provider [phone] Reason for Visit * Reason Onset Date Comments Med Refill 11/28/2022 Encounter Details Date Type Department Care Team (Late Contact Info) Description 11/28/2022 Refill [facility] - Internal Medicine [address] [place] [address] [phone] Ilya Gusman MD [address] [place] [phone] Med Refill Social History Tobacco Use [...] 4mg last qty 168 [address]: [facility] DATE OF LAST REFILL? 11/15/22 FREQUENCY OF REFILLS? 14 days DATE REFILL IS DUE? 11/29/2022 IS THIS AN EARLY REFILL? No Last Urine Drug Screen date: 08/06/2021 Last Opioid Treatment Agreement date: 09/25/2018 DATE OF LAST OFFICE VISIT: 10/21/22 DATE OF NEXT OFFICE VISIT: Future Appointments Date Time Provider Department Center 12/19/2022 9:00 AM Alonso Bae MD [facility] WE[facility] ADVERTISING MANAGER reviewed on 11/28/2022 by RENUKA GALLEGOS [place] and reviewed & no red flags were noted documented in this encounter Plan of Treatment Upcoming Encounters Date Type Department Care Team (Late st Contact Info) Description 10/10/2025 10:30 AM EST Office Visit [facility] - Internal Medicine [address] [place] [phone] Ilya Gusman MD [address] [place] [phone] Christophe Dailey MD [address] [place] [phone] 01/18/2026 1:00 PM EST Office Visit [facility] [address] [address] Porsha Marsh, INSURANCE PROFESSIONAL 70 [place] [address] 02/22/2026 11:00 AM EDT Office Visit [facility] [address] [facility] [address] [place] [phone] Alonso Bae MD 780 [facility] [address] [place] [address] 07/17/2026 2:00 PM EDT Office Visit [facility] - Internal Medicine 143 [place] [phone] Ilya Gusman MD [address] [place] [phone] 07/19/2026 11:40 AM EDT Office Visit [facility] 70 [facility] 1 [place] [address] Yesi Perez MD 70 [place] [address] documented as of this encounter Visit Diagnoses [...] documented as of this encounter Care Teams Warehouse Associate Relationship Specialty Start Date End Date Ilya Gusman MD [address] [place] [phone] PCP - General 05/14/17 [facility] 09/01/25 documented as of this encounter
--- OUTSIDE RECORDS SUMMARY | 2025-10-06 22:22 | XMS_ITS | Encounter Summary ---
Author Organization [facility] Address [address] [place] [address] Phone Care Team Providers Care Punch Machine Hand Name Role Phone Ilya Gusman MD Primary Care Provider [phone] Encounter Details Date Type Department Care Team (Late st Contact Info) Description 03/22/2021 Procedure Pass [facility] - MR Imaging 55 [place] [phone] Social History Tobacco Use Types [...] Health [facility] - Internal Medicine [address] [place] [phone] Ilya Gusman MD [address] [place] [phone] Christophe Dailey MD [address] [place] [address] [phone] 01/18/2026 1:00 PM EST Office Visit [facility] 70 [facility] 1 [place] [address] Porsha Marsh, HEEL BURNISHER 70 [place] [address] 02/22/2026 11:00 AM EDT Office Visit [facility] [address] [place] [address] [address] [place] [phone] Alonso Bae MD [address] [place] [address] [address] [place] [address] 07/17/2026 2:00 PM EDT Office Visit [facility] - Internal Medicine [address] [place] [phone] Ilya Gusman MD [address] [place] [phone] 07/19/2026 11:40 AM EDT Office Visit [facility] [address] [address] Yesi Perez MD 70 [place] [address] documented as of this encounter Visit Diagnoses [...] documented as of this encounter Care Teams Punch Machine Hand Relationship Specialty Start Date End Date Ilya Gusman MD [address] [place] [phone] PCP - General 05/14/17 [facility] 09/01/25 documented as of this encounter
--- OUTSIDE RECORDS SUMMARY | 2025-10-06 22:22 | XMS_ITS | Encounter Summary ---
Author Organization [facility] Address [address] [place] [address] Phone Care Team Providers Care Shelving Supervisor Name Role Phone Ilya Gusman MD Primary Care Provider [phone] Reason for Visit * Reason Onset Date Comments Med Refill 11/28/2023 Encounter Details Date Type Department Care Team (Late st Contact Info) Description 11/28/2023 Refill [facility] - Internal Medicine [address] [place] [place] [phone] Christophe Dailey MD [address] [place] [phone] Med Refill Social History Tobacco Use [...] 1:00 PM ORTHO 2PP PPK PRESURG PPK HUMAN RESOURCES OPERATIONS COORDINATOR reviewed on 11/28/2023 by KALANI ROSARIO RN and no red flags were noted Kalani Davis RNchinese medicine practitioner/Refill team documented in this encounter Plan of Treatment Upcoming Encounters Date Type Department Care Team (Late st Contact Info) Description 10/10/2025 10:30 AM EST Office Visit [facility] - Internal Medicine [address] [place] [place] [phone] Ilya Gusman MD [address] [place] [phone] Christophe Dailey MD [address] [place] [phone] 01/18/2026 1:00 PM EST Office Visit [facility] [address] [place] [address] Porsha Marsh, MEDICAL DIRECTOR OF HOSPICE 70 [place] [address] 02/22/2026 11:00 AM EDT Office Visit [facility] [address] [place] [address] [address] [place] [phone] Alonso Bae MD 780 [facility] [address] [place] [address] 07/17/2026 2:00 PM EDT Office Visit [facility] - Internal Medicine [address] [place] [place] [phone] Ilya Gusman MD [address] [place] [phone] 07/19/2026 11:40 AM EDT Office Visit [facility] 70 [facility] 1 [place] [address] Yesi Perez MD 70 [place] [address] documented as of this encounter Visit Diagnoses [...] documented as of this encounter Care Teams Shelving Supervisor Relationship Specialty Start Date End Date Ilya Gusman MD [address] [place] [phone] PCP - General 05/14/17 [facility] 09/01/25 documented as of this encounter
--- OUTSIDE RECORDS SUMMARY | 2025-10-06 22:22 | XMS_ITS | Encounter Summary ---
Author Organization [facility] Address [address] [place] [address] Phone Care Team Providers Care Rod Buster Helper Name Role Phone Ilya Gusman MD Primary Care Provider [phone] Encounter Details Date Type Department Care Team (Late Contact Info) Description 12/19/2023 Orders Only [facility] - Health Information Department [address] [place] [address] Scan, No Provider Available [address] [place] [address] [place] [address] Social History Tobacco Use Types Packs/Day Years [...] documented as of this encounter Functional Status documented as of this encounter Plan of Treatment Upcoming Encounters Date Type Department Care Team (Late Contact Info) Description 10/10/2025 10:30 AM EST Office Visit [facility] - Internal Medicine [address] [place] [phone] Ilya Gusman MD [address] [place] [phone] Christophe Dailey MD [address] [place] [address] [phone] 01/18/2026 1:00 PM EST Office Visit [address] [address] Porsha Marsh, MOLDER [address] [place] [address] 02/22/2026 11:00 AM EDT Office Visit [facility] [address] [place] [address] [address] [place] [phone] Alonso Bae MD [address] [place] [address] [address] [place] [address] 07/17/2026 2:00 PM EDT Office Visit [facility] - Internal Medicine [address] [place] [phone] Ilya Gusman MD [address] [place] [phone] 07/19/2026 11:40 AM EDT Office Visit [address] [address] Yesi Perez MD [address] [place] [address] documented as of this encounter Procedures Procedure Name Priority Date/Time Associated Diagnosis Comments HM COLONOSCOPY Routine 12/03/2023 documented in this encounter [...] as of this encounter Care Teams Rod Buster Helper Relationship Specialty Start Date End Date Ilya Gusman MD [address] [place] [phone] PCP - General 05/14/17 [facility] 09/01/25 documented as of this encounter
--- OUTSIDE RECORDS SUMMARY | 2025-10-06 22:22 | XMS_ITS | Encounter Summary ---
[facility] Address [address] [place] [address] Phone Care Team Providers Care Hand Profiler Name Role Phone Ilya Gusman MD Primary Care Provider [phone] Encounter Details Date Type Department Care Team (Late Contact Info) Description 06/12/2017 Orders Only [facility] - Health Information Department [address] [place] [address] Ilya Gusman MD [address] [place] [phone] Social History Tobacco Use Types Packs/Day Years [...] 10:30 AM EST Office Visit [facility] - Internal Medicine [address] [place] [phone] Ilya Gusman MD [address] [place] [phone] Christophe Dailey MD [address] [place] [phone] 01/18/2026 1:00 PM EST Office Visit [facility] [address] [place] [address] Porsha Marsh, BODY FINISHER 70 [place] [address] 02/22/2026 11:00 AM EDT Office Visit [facility] [address] [place] [address] [address] [place] [phone] Alonso Bae MD [address] [place] [address] [address] [place] [address] 07/17/2026 2:00 PM EDT Office Visit [facility] - Internal Medicine [address] [place] [phone] Ilya Gusman MD [address] [place] [phone] 07/19/2026 11:40 AM EDT Office Visit [address] [address] Yesi Perez MD [address] [place] [address] documented as of this encounter Procedures Procedure [...] as of this encounter Care Teams Hand Profiler Relationship Specialty Start Date End Date Ilya Gusman MD [address] [place] [phone] PCP - General 05/14/17 [facility] 09/01/25 documented as of this encounter
--- OUTSIDE RECORDS SUMMARY | 2025-10-06 22:22 | XMS_ITS | Encounter Summary ---
[facility] [address] [place] [address] Phone Care Team Providers Care Supervisor Estimator And Drafter Name Role Phone Ilya Gusman MD Primary Care Provider [phone] Encounter Details Date Type Department Care Team (Late Contact Info) Description 09/16/2017 Orders Only [facility] - Internal Medicine [address] [place] [phone] Ilya Gusman MD [address] [place] [phone] Right leg pain (Primary Dx) Social [...] Upcoming Encounters Date Type Department Care Team ([facility] Contact Info) Description 10/10/2025 10:30 AM EST Office Visit [facility] - Internal Medicine [address] [place] [phone] Ilya Gusman MD [address] [place] [phone] Christophe Dailey MD [address] [place] [address] [phone] 01/18/2026 1:00 PM EST Office Visit [facility] [address] [place] [address] Porsha Marsh, QUALITY CONTROL LAB TECHNICIAN [address] [place] [address] 02/22/2026 11:00 AM EDT Office Visit [facility] [address] [place] [address] [address] [place] [phone] Alonso Bae MD [address] [place] [address] [address] [place] [address] 07/17/2026 2:00 PM EDT Office Visit [facility] - Internal Medicine [address] [place] [phone] Ilya Gusman MD [address] [place] [phone] 07/19/2026 11:40 AM EDT Office Visit [facility] [address] [place] [address] Yesi Perez MD [address] [place] [address] documented as of this encounter Visit Diagnoses [...] as of this encounter Care Teams Supervisor Estimator And Drafter Relationship Specialty Start Date End Date Ilya Gusman MD [address] [place] [phone] PCP - General 05/14/17 [facility] 09/01/25 documented as of this encounter
--- OUTSIDE RECORDS SUMMARY | 2025-10-06 22:22 | XMS_ITS | Encounter Summary ---
[facility] Address [address] [place] [address] Phone Care Team Providers Care Milliner Helper Name Role Phone Ilya Gusman MD Primary Care Provider [phone] Reason for Referral * Consultation (1 Month) - Closed Specialty Diagnoses / Procedures Referred By [place] blankenship Referred To Contact Orthopedics Diagnoses Left shoulder pain, unspecified chronicity Ilya Gusman MD [address] [place] [phone] Phone: tel: fax: Tc Story MD [address] [place] [address] [place] [address] Phone: tel: fax: Referral ID Status Reason Start Date Expiration Date V isits Requested Visits Authorized [id number] Closed Specialty Services Required 06/05/2017 06/05/2018 6 6 Encounter Details Date Type Department Care Team ([facility] st Contact Info) Description 06/05/2017 Orders Only [facility] - Internal Medicine [address] [place] [phone] Ilya Gusman MD [address] [place] [phone] Left shoulder pain, unspecified chronicity (Primary Dx) [...] Description 10/10/2025 10:30 AM EST Office Visit [facility] - Internal Medicine [address] [place] [phone] Ilya Gusman MD [address] [place] [address] [phone] Christophe Dailey MD [address] [place] [phone] 01/18/2026 1:00 PM EST Office Visit [facility] 70 [facility] 1 [place] [address] Porsha Marsh, NATURAL RESOURCES EXTENSION EDUCATOR 70 [place] [address] 02/22/2026 11:00 AM EDT Office Visit [facility] [address] [place] [phone] Alonso Bae MD [facility] [address] [place] [address] 07/17/2026 2:00 PM EDT Office Visit [facility] - Internal Medicine [address] [place] [phone] Ilya Gusman MD [address] [place] [phone] 07/19/2026 11:40 AM EDT Office Visit [facility] [address] [address] Yesi Perez MD 70 [place] [address] Scheduled Referrals Name Type Priority Associated Diagnoses Orde r Schedule Referral [facility] Outpatient Referral Routine Left shoulder pain, unspecified [...] documented as of this encounter Care Teams Milliner Helper Relationship Specialty Start Date End Date Ilya Gusman MD [address] [place] [phone] PCP - General 05/14/17 [facility] 09/01/25 documented as of this encounter
--- OUTSIDE RECORDS SUMMARY | 2025-10-06 22:22 | XMS_ITS | Encounter Summary ---
Author Organization [facility] Address [address] [place] [address] Phone Care Team Providers Care Insecticide Expert Name Role Phone Ilya Gusman MD Primary Care Provider [phone] Reason for Visit * Reason Onset Date Comments Med Refill 11/28/2022 Encounter Details Date Type Department Care Team ([facility] Contact Info) Description 11/28/2022 Refill [facility] - Internal Medicine [address] [place] [phone] Christophe Dailey MD [address] [place] [phone] Med Refill Social History Tobacco Use [...] Description 10/10/2025 10:30 AM EST Office Visit [facility] - Internal Medicine [address] [place] [phone] Ilya Gusman MD [address] [place] [phone] Christophe Dailey MD [address] [place] [phone] 01/18/2026 1:00 PM EST Office Visit [facility] [address] [place] [address] Porsha Marsh, COMPLIANCE ANALYST 70 [place] [address] 02/22/2026 11:00 AM EDT Office Visit [facility] [address] [place] [address] [address] [place] [phone] Alonso Bae MD [address] [place] [address] [address] [place] [address] 07/17/2026 2:00 PM EDT Office Visit [facility] - Internal Medicine [address] [place] [phone] Ilya Gusman MD [address] [place] [phone] 07/19/2026 11:40 AM EDT Office Visit [facility] [address] [place] [address] Yesi Perez MD 70 [place] [address] documented as of this encounter [...] documented as of this encounter Care Teams Insecticide Expert Relationship Specialty Start Date End Date Ilya Gusman MD [address] [place] [address] [phone] PCP - General 05/14/17 [facility] 09/01/25 documented as of this encounter
--- OUTSIDE RECORDS SUMMARY | 2025-10-06 22:22 | XMS_ITS | Encounter Summary ---
Author Organization [facility] ystem Address [address] [place] [address] Phone Care Team Providers Care Clinical Statistics Manager Name Role Phone Ilya Gusman MD Primary Care Provider [phone] Reason for Referral * MRI/CAT/PET Scan (Urgent) - Closed Specialty Diagnoses / Procedures Referred By London blankenship Referred To Contact Radiology Diagnoses Lumbar stenosis with neurogenic claudication Lumbar radiculopathy Procedures MRI lumbar spine with and without contrast Leti Welch PA [address] [place] [address] Phone: tel: fax: Referral ID Status Reason Start Date Expiration Date Visits Re quested Visits Authorized [id number] Closed 09/28/2017 12/27/2017 1 1 Encounter Details Date Type Department Care Team (Late st Contact Info) Description 08/19/2017 Orders Only [facility] [address] [place] [address] [address] [place] [address] Leti Welch PA [address] [facility] [address] [place] [address] Lumbar stenosis with neurogenic claudication (Primary Dx); [...] 10/10/2025 10:30 AM EST Office Visit [facility] - Internal Medicine [address] [place] [phone] Ilya Gusman MD [address] [place] [address] [phone] Christophe Dailey MD [address] [place] [phone] 01/18/2026 1:00 PM EST Office Visit [facility] [address] [facility] 1 [place] [address] Porsha Marsh, ASSISTANT ACCOUNT MANAGER 70 [place] [address] 02/22/2026 11:00 AM EDT Office Visit [facility] [address] [place] [address] Alonso Bae MD [address] [place] [address] 07/17/2026 2:00 PM EDT Office Visit [facility] - Internal Medicine [address] [place] [phone] Ilya Gusman MD [address] [place] [phone] 07/19/2026 11:40 AM EDT Office Visit [facility] [address] [address] Yesi Perez MD 70 [place] [address] documented as of this encounter Results * [...] documented as of this encounter Care Teams Clinical Statistics Manager Relationship Specialty Start Date End Date Ilya Gusman MD [address] [place] [address] [phone] PCP - General 05/14/17 [facility] 09/01/25 documented as of this encounter
--- OUTSIDE RECORDS SUMMARY | 2025-10-06 22:22 | XMS_ITS | Encounter Summary ---
[facility] Organization [facility] Address [address] [place] [address] Phone Care Team Providers Care Principal Bioinformatics Specialist Name Role Phone Ilya Gusman MD Primary Care Provider [phone] Reason for Referral * Consultation (1 Month) - Closed Specialty Diagnoses / Procedures Referred By London blankenship Referred To Contact Neurology Diagnoses Ilya Toussaint MD [address] [place] [phone] Phone: tel: fax: Hector Noyola [address] [place] [address] Phone: tel: fax: Referral ID Status Reason Start Date Expiration Date V isits Requested Visits Authorized [id number] Closed Specialty Services Required 07/14/2017 07/15/2018 6 6 * Surgical (1 Month) - Closed Specialty Diagnoses / Procedures Referred By London blankenship Referred To Contact Neurosurgery Diagnoses Ilya Toussaint MD [address] [place] [phone] Phone: tel: fax: Alejandro Lion MD [facility] [address] [place] [address] Phone: tel: fax: Referral ID Status Reason Start Date Expiration Date V isits Requested Visits Authorized [id number] Closed Specialty Services Required 07/10/2017 07/11/2018 6 6 Encounter Details Date Type Department Care Team (Late st Contact Info) Description 07/10/2017 Orders Only [address] [phone] Ilya Gusman MD [address] [place] [address] [phone] Tremor (Primary Dx) Social History Tobacco Use [...] Description 10/10/2025 10:30 AM EST Office Visit [facility] - Internal Medicine [address] [place] [phone] Ilya Gusman MD [address] [place] [phone] Christophe Dailey MD [address] [place] [phone] 01/18/2026 1:00 PM EST Office Visit [facility] [address] 1 [place] [address] Porsha Marsh, FAST FOOD SERVER 70 [place] [address] 02/22/2026 11:00 AM EDT Office Visit [facility] [address] [place] [phone] Alonso Bae MD [address] [place] [address] 07/17/2026 2:00 PM EDT Office Visit [facility] - Internal Medicine [address] [place] [phone] Ilya Gusman MD [address] [place] [phone] 07/19/2026 11:40 AM EDT Office Visit [facility] [address] [facility] 1 [place] [address] Yesi Perez MD 70 [place] [address] Scheduled Referrals Name Type Priority Associated Diagnoses Order Schedule Referral Neurosurgery-[facility] Outpatient Referral Routine Tremor 1 Occurrences starting 07/10/2017 until 01/10/2018 [facility]erral [facility] Outpatient Referral Routine Tremor 1 Occurrences [...] as of this encounter Care Teams Principal Bioinformatics Specialist Relationship Specialty Start Date End Date Ilya Gusman MD [address] [place] [phone] PCP - General 05/14/17 [facility] 09/01/25 documented as of this encounter
--- OUTSIDE RECORDS SUMMARY | 2025-10-06 22:22 | XMS_ITS | Encounter Summary ---
Author Organization [facility] Address [address] [place] [address] Phone Care Team Providers Care Payroll Clerk Name Role Phone Ilya Gusman MD Primary Care Provider [phone] Reason for Visit * Reason Onset Date Comments Med Refill 03/15/2021 Encounter Details Date Type Department Care Team (Late st Contact Info) Description 03/15/2021 Refill [facility] - Internal Medicine [address] [place] [address] [phone] Ilya Gusman MD [address] [place] [phone] Med Refill Social History Tobacco Use [...] [facility] [address] [place] [phone] Ilya Gusman MD [address] [place] [phone] Christophe Dailey MD [address] [place] [phone] 01/18/2026 1:00 PM EST Office Visit [facility] [address] [place] [address] Porsha Marsh, TEXTILE MACHINERY SALES REPRESENTATIVE 70 [place] [address] 02/22/2026 11:00 AM EDT Office Visit [facility] [address] [place] [address] [address] [place] [address] Alonso Bae MD [address] [place] [address] [address] [place] [address] 07/17/2026 2:00 PM EDT Office Visit [facility] - Internal Medicine [address] [place] [phone] Ilya Gusman MD [address] [place] [phone] 07/19/2026 11:40 AM EDT Office Visit [facility] [address] [address] Yesi Perez MD [address] [place] [address] documented as of this encounter Visit Diagnoses [...] documented as of this encounter Care Teams Payroll Clerk Relationship Specialty Start Date End Date Ilya Gusman MD [address] [place] [phone] PCP - General 05/14/17 [facility] 09/01/25 documented as of this encounter
--- OUTSIDE RECORDS SUMMARY | 2025-10-06 22:22 | XMS_ITS | Encounter Summary ---
[facility] Organization [facility] Address [address] [place] [address] Phone Care Team Providers Care Governor Assembler Hydraulic Name Role Phone Ilya Gusman MD Primary Care Provider [phone] Encounter Details Date Type Department Care Team (Late Contact Info) Description 06/16/2017 Scanned Document [facility] [place] [phone] Alejandro Lion MD [facility] at [address] [place] [address] <No scans attached> Social History Tobacco Use [...] 10:30 AM EST Office Visit [facility] - Internal Medicine [address] [place] [phone] Ilya Gusman MD [address] [place] [phone] Christophe Dailey MD [address] [place] [phone] 01/18/2026 1:00 PM EST Office Visit [facility] [address] [place] [address] Porsha Marsh, FIRE WATCHMAN 70 [place] [address] 02/22/2026 11:00 AM EDT Office Visit [facility] [address] [place] [address] [place] [phone] Alonso Bae MD [address] [place] [address] 07/17/2026 2:00 PM EDT Office Visit [facility] - Internal Medicine [address] [place] [phone] Ilya Gusman MD [address] [place] [phone] 07/19/2026 11:40 AM EDT Office Visit [facility] [address] [place] [address] Yesi Perez MD [address] [place] [address] documented as of this encounter Visit Diagnoses [...] documented as of this encounter Care Teams Governor Assembler Hydraulic Relationship Specialty Start Date End Date Ilya Gusman MD [address] [place] [address] [phone] PCP - General 05/14/17 [facility] 09/01/25 documented as of this encounter
--- OUTSIDE RECORDS SUMMARY | 2025-10-06 22:22 | XMS_ITS | Encounter Summary ---
[facility] Organization [facility] Address [address] [place] [address] Phone Care Team Providers Care Title Clerk Name Role Phone Ilya Gusman MD Primary Care Provider [phone] Encounter Details Date Type Department Care Team (Late Contact Info) Description 07/04/2017 Scanned Document [facility] [place] [address] Alejandro Lion MD [facility] at [address] [place] [address] <No scans attached> Social History Tobacco Use [...] Description 10/10/2025 10:30 AM EST Office Visit [facility] - Internal Medicine [address] [place] [phone] Ilya Gusman MD [address] [place] [phone] Christophe Dailey MD [address] [place] [phone] 01/18/2026 1:00 PM EST Office Visit [facility] [address] [place] [phone] Porsha Marsh, SHEEP STICKER [address] [place] [address] 02/22/2026 11:00 AM EDT Office Visit [facility] [address] [place] [address] [address] [place] [address] Alonso Bae MD [address] [place] [address] [address] [place] [address] 07/17/2026 2:00 PM EDT Office Visit [facility] - Internal Medicine [address] [place] [phone] Ilya Gusman MD [address] [place] [phone] 07/19/2026 11:40 AM EDT Office Visit [facility] [address] [place] [address] Yesi Perez MD [address] [place] [address] documented as of this encounter Visit Diagnoses [...] documented as of this encounter Care Teams Title Clerk Relationship Specialty Start Date End Date Ilya Gusman MD [address] [place] [phone] PCP - General 05/14/17 [facility] 09/01/25 documented as of this encounter
--- OUTSIDE RECORDS SUMMARY | 2025-10-06 22:22 | XMS_ITS | Encounter Summary ---
Author Organization [facility] ystem Address [address] [place] [address] Phone Care Team Providers Care Communications Field Technician Name Role Phone Ilya Gusman MD Primary Care Provider [phone] Encounter Details Date Type Department Care Team (Late Contact Info) Description 09/25/2017 Orders Only [facility] - X-Ray Imaging 55 [place] [address] Osmin Barnes MD 55 [place] [address] Social History Tobacco Use Types Packs/Day Years [...] 10:30 AM EST Office Visit [facility] - Internal Medicine [address] [place] [phone] Ilya Gusman MD [address] [place] [phone] Christophe Dailey MD [address] [place] [address] [phone] 01/18/2026 1:00 PM EST Office Visit [facility] [address] [place] [address] Porsha Marsh, PRESERVATIONIST [address] [place] [address] 02/22/2026 11:00 AM EDT Office Visit [facility] [address] [place] [address] [address] [place] [phone] Alonso Bae MD [address] [place] [address] [address] [place] [address] 07/17/2026 2:00 PM EDT Office Visit [facility] - Internal Medicine [address] [place] [phone] Ilya Gusman MD [address] [place] [phone] 07/19/2026 11:40 AM EDT Office Visit [facility] [address] [place] [address] Yesi Perez MD [address] [place] [address] documented as of this encounter Visit Diagnoses [...] documented as of this encounter Care Teams Communications Field Technician Relationship Specialty Start Date End Date Ilya Gusman MD [address] [place] [phone] PCP - General 05/14/17 [facility] 09/01/25 documented as of this encounter
--- OUTSIDE RECORDS SUMMARY | 2025-10-06 22:22 | XMS_ITS | Encounter Summary ---
Author Organization [facility] ystem Address [address] [place] [address] Phone Care Team Providers Care Light Bulb Assembler Name Role Phone Ilya Gusman MD Primary Care Provider [phone] Encounter Details Date Type Department Care Team (Late Contact Info) Description 12/17/[address] [facility] - Health Information Department [address] [place] [address] Scan, No Provider Available [address] [place] [address] [place] [address] Social History Tobacco Use Types Packs/Day Years [...] Description 10/10/2025 10:30 AM EST Office Visit [facility] - Internal Medicine [address] [place] [phone] Ilya Gusman MD [address] [place] [phone] Christophe Dailey MD [address] [place] [address] [phone] 01/18/2026 1:00 PM EST Office Visit [address] [address] Porsha Marsh, RADIO TIME SALESPERSON [address] [place] [address] 02/22/2026 11:00 AM EDT Office Visit [facility] [address] [place] [address] [address] [place] [phone] Alonso Bae MD [address] [place] [address] [address] [place] [address] 07/17/2026 2:00 PM EDT Office Visit [facility] - Internal Medicine [address] [place] [phone] Ilya Gusman MD [address] [place] [phone] 07/19/2026 11:40 AM EDT Office Visit [address] [address] Yesi Perez MD [address] [place] [address] documented as of this encounter Procedures Procedure Name Priority Date/Time Associated Diagnosis Comments HM COLONOSCOPY Routine 11/26/2023 documented in this encounter [...] documented as of this encounter Care Teams Light Bulb Assembler Relationship Specialty Start Date End Date Ilya Gusman MD [address] [place] [phone] PCP - General 05/14/17 [facility] 09/01/25 documented as of this encounter
--- OUTSIDE RECORDS SUMMARY | 2025-10-06 22:22 | XMS_ITS | Encounter Summary ---
Author Organization [facility] ystem Address [address] [place] [address] Phone Care Team Providers Care Psychiatric Tech Name Role Phone Ilya Gusman MD Primary Care Provider [phone] Encounter Details Date Type Department Care Team (Late Contact Info) Description 10/30/2023 Scanned Document [facility] - Health Information Department [address] [place] [address] Scan, No Provider Available [address] [place] [address] [place] [address] <No scans attached> Social History Tobacco Use [...] Encounters Date Type Department Care Team ([facility] Contact Info) Description 10/10/2025 10:30 AM EST Office Visit [facility] - Internal Medicine [address] [place] [phone] Ilya Gusman MD [address] [place] [phone] Christophe Dailey MD [address] [place] [address] [phone] 01/18/2026 1:00 PM EST Office Visit [facility] [address] [place] [address] Porsha Marsh, LUMBER DRIVER [address] [place] [address] 02/22/2026 11:00 AM EDT Office Visit [facility] [address] [place] [address] [address] [place] [phone] Alonso Bae MD [address] [place] [address] [address] [place] [address] 07/17/2026 2:00 PM EDT Office Visit [facility] - Internal Medicine [address] [place] [phone] Ilya Gusman MD [address] [place] [phone] 07/19/2026 11:40 AM EDT Office Visit [facility] [address] [place] [address] Yesi Perez MD [address] [place] [address] documented as of this encounter Visit Diagnoses [...] documented as of this encounter Care Teams Psychiatric Tech Relationship Specialty Start Date End Date Ilya Gusman MD [address] [place] [phone] PCP - General 05/14/17 [facility] 09/01/25 documented as of this encounter
--- OUTSIDE RECORDS SUMMARY | 2025-10-06 22:22 | XMS_ITS | Encounter Summary ---
Author Organization [facility] ystem Address [address] [place] [address] Phone Care Team Providers Care Support Director Name Role Phone Ilya Gusman MD Primary Care Provider Encounter Details Date Type Department Care Team (Late st Contact Info) Description 08/22/2020 Orders Only [facility] - Health Information Department [address] [place] [address] Scan, No Provider Available [address] [facility] [place] [address] Social History Tobacco Use Types Packs/Day Years [...] [facility] - Internal Medicine [address] [place] [phone] Ilya Gusman MD [address] [place] [phone] Christophe Dailey MD [address] [place] [phone] 01/18/2026 1:00 PM EST Office Visit [facility] [address] [place] [address] Porsha Marsh, PATHOLOGY ASSISTANT [address] [place] [address] 02/22/2026 11:00 AM EDT Office Visit [facility] [address] [place] [address] [address] [place] [phone] Alonso Bae MD [address] [place] [address] [address] [place] [address] 07/17/2026 2:00 PM EDT Office Visit [facility] - Internal Medicine [address] [place] [phone] Ilya Gusman MD [address] [place] [phone] 07/19/2026 11:40 AM EDT Office Visit [facility] [address] [place] [address] Yesi Perez MD [address] [place] [address] documented as of this encounter Procedures Procedure [...] documented as of this encounter Care Teams Support Director Relationship Specialty Start Date End Date Ilya Gusman MD [address] [place] [phone] PCP - General 05/14/17 [facility] 09/01/25 documented as of this encounter
--- OUTSIDE RECORDS SUMMARY | 2025-10-06 22:22 | XMS_ITS | Encounter Summary ---
Author Organization [facility] Address [address] [place] [address] Phone Care Team Providers Care Carpenter Ship Name Role Phone Ilya Gusman MD Primary Care Provider Reason for Visit * Reason Onset Date Comments Med Refill 11/28/2022 Encounter Details Date Type Department Care Team ([facility] Contact Info) Description 11/28/2022 Refill [facility] - Internal Medicine [address] [place] [address] [phone] Christophe Dailey MD [address] [place] [phone] Med Refill Social History Tobacco Use [...] 10:30 AM EST Office Visit [facility] - Internal Medicine [address] [place] [phone] Ilya Gusman MD [address] [place] [phone] Christophe Dailey MD [address] [place] [phone] 01/18/2026 1:00 PM EST Office Visit [facility] [address] [place] [address] Porsha Marsh, DIRECTOR CLINICAL RESEARCH 70 [place] [address] 02/22/2026 11:00 AM EDT Office Visit [facility] [address] [place] [address] [address] [place] [phone] Alonso Bae MD [address] [place] [address] [address] [place] [address] 07/17/2026 2:00 PM EDT Office Visit [facility] - Internal Medicine [address] [place] [phone] Ilya Gusman MD [address] [place] [phone] 07/19/2026 11:40 AM EDT Office Visit [facility] [address] [place] [address] Yesi Perez MD 70 [place] [address] documented as of this encounter [...] documented as of this encounter Care Teams Carpenter Ship Relationship Specialty Start Date End Date Ilya Gusman MD [address] [place] [address] [phone] PCP - General 05/14/17 [facility] 09/01/25 documented as of this encounter
--- OUTSIDE RECORDS SUMMARY | 2025-10-06 22:22 | XMS_ITS | Encounter Summary ---
Author Organization [facility]stem Address [address] [place] [address] Phone Care Team Providers Care Ship Keeper Name Role Phone Ilya Gusman MD Primary Care Provider [phone] Encounter Details Date Type Department Care Team (Late st Contact Info) Description 11/09/2022 Scanned Document [facility] - Health Information Department [address] [place], [place] [phone] Scan, No Provider Available [address] [facility] [place] [address] <No scans attached> Social History Tobacco Use [...] 10:30 AM EST Office Visit [facility] - Internal Medicine [address] [place] [phone] Ilya Gusman MD [address] [place] [phone] Christophe Dailey MD [address] [place] [phone] 01/18/2026 1:00 PM EST Office Visit [facility] [address] [place] [address] Porsha Marsh, MARILIA [address] [place] [address] 02/22/2026 11:00 AM EDT Office Visit [facility] [address] [place] [address] [address] [place] [phone] Alonso Bae MD [address] [place] [address] [address] [place] [address] 07/17/2026 2:00 PM EDT Office Visit [facility] - Internal Medicine [address] [place] [phone] Ilya Gusman MD [address] [place] [phone] 07/19/2026 11:40 AM EDT Office Visit [facility] [address] [place] [address] Yesi Perez MD [address] [place] [address] documented as of this encounter Visit Diagnoses [...] as of this encounter Care Teams Ship Keeper Relationship Specialty Start Date End Date Ilya Gusman MD [address] [place] [phone] PCP - General 05/14/17 [facility] 09/01/25 documented as of this encounter
--- OUTSIDE RECORDS SUMMARY | 2025-10-06 22:22 | XMS_ITS | Encounter Summary ---
Author Organization [facility] ystem Address [address] [place] [address] Phone Care Team Providers Care Cutting Machine Tender Name Role Phone Ilya Gusman MD Primary Care Provider [phone] Encounter Details Date Type Department Care Team (Late st Contact Info) Description 12/01/2022 Scanned Document [facility] - Health Information Department [address] [place], [place] [phone] Scan, No Provider Available [address] [facility] [place] [address] <No scans attached> Social History Tobacco Use [...] 10:30 AM EST Office Visit [facility] - Internal Medicine [address] [place] [phone] Ilya Gusman MD [address] [place] [phone] Christophe Dailey MD [address] [place] [phone] 01/18/2026 1:00 PM EST Office Visit [facility] [address] [place] [address] Porsha Marsh, MARILIA [address] [place] [address] 02/22/2026 11:00 AM EDT Office Visit [facility] [address] [place] [address] [address] [place] [address] Alonso Bae MD [address] [place] [address] [address] [place] [address] 07/17/2026 2:00 PM EDT Office Visit [facility] - Internal Medicine [address] [place] [phone] Ilya Gusman MD [address] [place] [phone] 07/19/2026 11:40 AM EDT Office Visit [facility] [address] [place] [address] Yesi Perez MD [address] [place] [address] documented as of this encounter Visit Diagnoses [...] documented as of this encounter Care Teams Cutting Machine Tender Relationship Specialty Start Date End Date Ilya Gusman MD [address] [place] [phone] PCP - General 05/14/17 [facility] 09/01/25 documented as of this encounter
--- OUTSIDE RECORDS SUMMARY | 2025-10-06 22:22 | XMS_ITS | Encounter Summary ---
Author Organization [facility] Address [address] [place] [address] Phone Care Team Providers Care Nuclear Medicine Pet Ct Technologist Name Role Phone Ilya Gusman MD Primary Care Provider [phone] Reason for Visit * Reason Onset Date Comments Med Refill 08/15/2020 Encounter Details Date Type Department Care Team (Late st Contact Info) Description 08/15/2020 Refill [facility] - Internal Medicine [address] [place] [address] [phone] Christophe Dailey MD [address] [place] [phone] Med Refill Social History Tobacco Use [...] Center 08/21/2020 11:00 AM Alejandro Lion MD [facility] 09/06/2020 2:30 PM Christophe Dailey MD LNG [...] AM EDT Refill Oxycodone 15mg #28 Pharmacy: [facility] DATE OF LAST REFILL? 07/11/20 FREQUENCY [...] PM Ilya Gusman MD LNG IM LNG DIRECTOR CORPORATE COMPLIANCE reviewed on 08/16/2020 by Ian BARNETT and no red flags were noted Kristina Schneider process machine operator Refill Team [employer] documented in this encounter Plan of Treatment Upcoming Encounters Date Type Department Care Team (Late st Contact Info) Description 10/10/2025 10:30 AM EST Office Visit [facility] - Internal Medicine [address] [place] [phone] Ilya Gusman MD [address] [place] [address] [phone] Christophe Dailey MD [address] [place] [address] [phone] 01/18/2026 1:00 PM EST Office Visit [facility] 1 [place] [address] Porsha Marsh, DESIGN INSERTER 70 [place] [address] 02/22/2026 11:00 AM EDT Office Visit [facility] [address] [place] [address] [address] [place] [phone] Alonso Bae MD [facility] [address] [place] [address] 07/17/2026 2:00 PM EDT Office Visit [facility] - Internal Medicine 143 [place] [phone] Ilya Gusman MD 143 [place] [phone] 07/19/2026 11:40 AM EDT Office Visit [facility] [address] [address] Yesi Perez MD 70 [place] [address] documented as of this encounter Visit Diagnoses [...] documented as of this encounter Care Teams Nuclear Medicine Pet Ct Technologist Relationship Specialty Start Date End Date Ilya Gusman MD [address] [place] [address] [phone] PCP - General 05/14/17 [facility] 09/01/25 documented as of this encounter
--- OUTSIDE RECORDS SUMMARY | 2025-10-06 22:22 | XMS_ITS | Encounter Summary ---
[facility] Address [address] [place] [address] Phone Care Team Providers Care Perinatal Breastfeeding Assistant Name Role Phone Ilya Gusman MD Primary Care Provider [phone] Reason for Referral * Consultation (1 Month) - Closed Specialty Diagnoses / Procedures Referred By London blankenship Referred To Contact Neurology Diagnoses Ilya Toussaint MD [address] [place] [phone] Phone: tel: fax: Ann Quinn [address] [place] [address] Phone: tel: fax: Referral ID Status Reason Start Date Expiration Date V isits Requested Visits Authorized [id number] Closed Specialty Services Required 06/16/2017 06/16/2018 6 6 * Consultation (1 Month) - Closed Specialty Diagnoses / Procedures Referred By London blankenship Referred To Contact Diagnoses Ilya Toussaint MD [address] [place] [phone] Phone: tel: fax: UNKNOWN Referral ID Status Reason Start Date Expiration Date V isits Requested Visits Authorized [id number] Closed Specialty Services Required 06/13/2017 06/14/2018 6 6 Encounter Details Date Type Department Care Team (Late st Contact Info) Description 06/13/2017 Orders Only [address] [phone] Ilya Gusman MD [address] [place] [phone] Tremor (Primary Dx) Social History Tobacco Use [...] System - [place] - Internal Medicine [address] [place] [phone] Ilya Gusman MD [address] [place] [phone] Christophe Dailey MD [address] [place] [phone] 01/18/2026 1:00 PM EST Office Visit [facility] [address] [facility] 1 [place] [address] Porsha Marsh, MARILIA 70 [place] [address] 02/22/2026 11:00 AM EDT Office Visit [facility] [place] [facility] [address] [place] [address] [place] [address] Alonso Bae MD [address] [facility] [address] [place] [address] 07/17/2026 2:00 PM EDT Office Visit [facility] Internal Medicine 143 [place] [phone] Ilya Gusman MD [address] [place] [phone] 07/19/2026 11:40 AM EDT Office Visit [facility] [address] [address] Yesi Perez MD 70 [place] [address] Scheduled Referrals Name Type Priority Associated Diagnoses Order Schedule Referral Neurology-Outgoing Outpatient Referral Routine Tremor 1 Occurrences starting 06/13/2017 until 12/14/2017 Referral Neurology-Outgoing -[facility] Outpatient Referral Routine Tremor 1 Occurrences [...] documented as of this encounter Care Teams Perinatal Breastfeeding Assistant Relationship Specialty Start Date End Date Ilya Gusman MD [address] [place] [phone] PCP - General 05/14/17 [facility] 09/01/25 documented as of this encounter
--- OUTSIDE RECORDS SUMMARY | 2025-10-06 22:22 | XMS_ITS | Encounter Summary ---
Author Organization [facility] ystem Address [address] [place] [address] Phone Care Team Providers Care Teacher Resource Name Role Phone Ilya Gusman MD Primary Care Provider [phone] Encounter Details Date Type Department Care Team (Late st Contact Info) Description 05/30/2017 Scanned Document [facility] - Health Information Department [address] [place] [phone] Scan, No Provider Available [address] [place] [address] [place] [address] <No scans attached> Social History Tobacco Use [...] 10:30 AM EST Office Visit [facility] - Internal Medicine [address] [place] [phone] Ilya Gusman MD [address] [place] [phone] Christophe Dailey MD [address] [place] [phone] 01/18/2026 1:00 PM EST Office Visit [facility] 70 [facility] 1 [place] [address] Porsha Marsh, QUALITY RN 70 [place] [address] 02/22/2026 11:00 AM EDT Office Visit [facility] [address] [facility] [address] [place] [phone] Alonso Bae MD [address] [place] [address] [address] [place] [address] 07/17/2026 2:00 PM EDT Office Visit [facility] - Internal Medicine [address] [place] [phone] Ilya Gusman MD [address] [place] [phone] 07/19/2026 11:40 AM EDT Office Visit [facility] [address] [place] [address] Yesi Perez MD [address] [place] [address] documented as of this encounter Visit Diagnoses [...] as of this encounter Care Teams Teacher Resource Relationship Specialty Start Date End Date Ilya Gusman MD [address] [place] [phone] PCP - General 05/14/17 [facility] 09/01/25 documented as of this encounter
--- OUTSIDE RECORDS SUMMARY | 2025-10-06 22:22 | XMS_ITS | Encounter Summary ---
[facility] Address [address] [place] [address] Phone Care Team Providers Care Inside Sales Trainer Name Role Phone Ilya Gusman MD Primary Care Provider [phone] Encounter Details Date Type Department Care Team (Late Contact Info) Description 07/14/2017 Scanned Document [facility] - Internal Medicine [address] [place] [phone] Ilya Gusman MD [address] [place] [address] [phone] <No scans attached> Social History Tobacco Use [...] Upcoming Encounters Date Type Department Care Team ([facility] Contact Info) Description 10/10/2025 10:30 AM EST Office Visit [facility] - Internal Medicine [address] [place] [phone] Ilya Gusman MD [address] [place] [phone] Christophe Dailey MD [address] [place] [address] [phone] 01/18/2026 1:00 PM EST Office Visit [facility] [address] [place] [address] Porsha Marsh, LABOR TRAINING MANAGER [address] [place] [address] 02/22/2026 11:00 AM EDT Office Visit [facility] [address] [place] [address] [address] [place] [phone] Alonso Bae MD [address] [place] [address] [address] [place] [address] 07/17/2026 2:00 PM EDT Office Visit [facility] - Internal Medicine [address] [place] [phone] Ilya Gusman MD [address] [place] [phone] 07/19/2026 11:40 AM EDT Office Visit [facility] [address] [place] [address] Yesi Perez MD [address] [place] [address] documented as of this encounter Visit Diagnoses [...] documented as of this encounter Care Teams Inside Sales Trainer Relationship Specialty Start Date End Date Ilya Gusman MD [address] [place] [phone] PCP - General 05/14/17 [facility] 09/01/25 documented as of this encounter
--- OUTSIDE RECORDS SUMMARY | 2025-10-06 22:23 | XMS_ITS | Encounter Summary ---
Author Organization [facility] ystem Address [address] [place] [address] Phone Care Team Providers Care Concrete Mixing Plant Laborer Name Role Phone Ilya Gusman MD Primary Care Provider [phone] Encounter Details Date Type Department Care Team (Late Contact Info) Description 02/14/2021 Orders Only [facility] - Health Information Department 143 [place] [address] Scan, No Provider Available [address] [facility] [place] [address] Social History Tobacco Use Types Packs/Day Years [...] 10:30 AM EST Office Visit [facility] - Internal Medicine [address] [place] [phone] Ilya Gusman MD [address] [place] [phone] Christophe Dailey MD [address] [place] [phone] 01/18/2026 1:00 PM EST Office Visit [facility] [address] [place] [address] Porsha Marsh, MARILIA [address] [place] [address] 02/22/2026 11:00 AM EDT Office Visit [facility] [address] [place] [address] [address] [place] [phone] Alonso Bae MD [address] [place] [address] [address] [place] [address] 07/17/2026 2:00 PM EDT Office Visit [facility] - Internal Medicine [address] [place] [phone] Ilya Gusman MD [address] [place] [phone] 07/19/2026 11:40 AM EDT Office Visit [facility] [address] [place] [address] Yesi Perez MD [address] [place] [address] documented as of this encounter Procedures Procedure [...] as of this encounter Care Teams Concrete Mixing Plant Laborer Relationship Specialty Start Date End Date Ilya Gusman MD [address] [place] [phone] PCP - General 05/14/17 [facility] 09/01/25 documented as of this encounter
--- OUTSIDE RECORDS SUMMARY | 2025-10-06 22:23 | XMS_ITS | Encounter Summary ---
Author Organization [facility] ystem Address [address] [place] [address] Phone Care Team Providers Care Mining Machinery Assembler Name Role Phone Ilya Gusman MD Primary Care Provider [phone] Encounter Details Date Type Department Care Team (Late Contact Info) Description 01/22/2021 Orders Only [facility] - Health Information Department 143 [place] [address] Scan, No Provider Available [address] [facility] [place] [address] Social History Tobacco Use Types Packs/Day Years [...] Description 10/10/2025 10:30 AM EST Office Visit [facility] - Internal Medicine [address] [place] [address] [phone] Ilya Gusman MD [address] [place] [phone] Christophe Dailey MD [address] [place] [phone] 01/18/2026 1:00 PM EST Office Visit [facility] [address] [place] [address] Porsha Marsh, MARILIA 70 [place] [address] 02/22/2026 11:00 AM EDT Office Visit [facility] [address] [place] [address] [address] [place] [phone] Alonso Bae MD [address] [place] [address] [address] [place] [address] 07/17/2026 2:00 PM EDT Office Visit [facility] - Internal Medicine [address] [place] [phone] Ilya Gusman MD [address] [place] [phone] 07/19/2026 11:40 AM EDT Office Visit [facility] [address] [place] [address] Yesi Perez MD [address] [place] [address] documented as of this encounter Procedures [...] documented as of this encounter Care Teams Mining Machinery Assembler Relationship Specialty Start Date End Date Ilya Gusman MD [address] [place] [phone] PCP - General 05/14/17 [facility] 09/01/25 documented as of this encounter
--- OUTSIDE RECORDS SUMMARY | 2025-10-06 22:23 | XMS_ITS | Encounter Summary ---
Author Organization [facility] ystem Address [address] [place] [address] Phone Care Team Providers Care Director Digital Analytics Name Role Phone Ilya Gusman MD Primary Care Provider [phone] Encounter Details Date Type Department Care Team (Late st Contact Info) Description 10/24/2020 Scanned Document [facility] - Health Information Department 143 [place] [address] Scan, No Provider Available [address] [facility] [place] [address] <No scans attached> Social History Tobacco Use [...] Description 10/10/2025 10:30 AM EST Office Visit [facility] - Internal Medicine [address] [place] [phone] Ilya Gusman MD [address] [place] [phone] Christophe Dailey MD [address] [place] [phone] 01/18/2026 1:00 PM EST Office Visit [facility] [address] [place] [address] Porsha Marsh, MARILIA [address] [place] [address] 02/22/2026 11:00 AM EDT Office Visit [facility] [address] [place] [address] [address] [place] [phone] Alonso Bae MD [address] [place] [address] [address] [place] [address] 07/17/2026 2:00 PM EDT Office Visit [facility] - Internal Medicine [address] [place] [phone] Ilya Gusman MD [address] [place] [phone] 07/19/2026 11:40 AM EDT Office Visit [facility] [address] [place] [address] Yesi Perez MD [address] [place] [address] documented as of this encounter Visit Diagnoses [...] as of this encounter Care Teams Director Digital Analytics Relationship Specialty Start Date End Date Ilya Gusman MD [address] [place] [phone] PCP - General 05/14/17 [facility] 09/01/25 documented as of this encounter
--- OUTSIDE RECORDS SUMMARY | 2025-10-06 22:23 | XMS_ITS | Encounter Summary ---
Author Organization [facility] ystem Address [address] [place] [address] Phone Care Team Providers Care Field Sales Engineer Name Role Phone Ilya Gusman MD Primary Care Provider Encounter Details Date Type Department Care Team (Late st Contact Info) Description 10/10/2020 Orders Only [facility] - Health Information Department 143 [place] [address] Scan, No Provider Available [address] [place] [address] Social History Tobacco Use Types Packs/Day Years [...] [facility] - Internal Medicine [address] [place] [phone] Ilya Gusman MD [address] [place] [phone] Christophe Dailey MD [address] [place] [phone] 01/18/2026 1:00 PM EST Office Visit [facility] [address] [place] [address] Porsha Marsh, ANESTHESIOLOGY MEDICAL DOCTOR [address] [place] [address] 02/22/2026 11:00 AM EDT Office Visit [facility] [address] [place] [address] [address] [place] [phone] Alonso Bae MD [address] [place] [address] [address] [place] [address] 07/17/2026 2:00 PM EDT Office Visit [facility] - Internal Medicine [address] [place] [phone] Ilya Gusman MD [address] [place] [phone] 07/19/2026 11:40 AM EDT Office Visit [facility] [address] [place] [address] Yesi Perez MD [address] [place] [address] documented as of this encounter Procedures Procedure [...] documented as of this encounter Care Teams Field Sales Engineer Relationship Specialty Start Date End Date Ilya Gusman MD [address] [place] [phone] PCP - General 05/14/17 [facility] 09/01/25 documented as of this encounter
--- OUTSIDE RECORDS SUMMARY | 2025-10-06 22:23 | XMS_ITS | Encounter Summary ---
Author Organization [facility] ystem Address [address] [place] [address] Phone Care Team Providers Care Clam Shucking Machine Tender Name Role Phone Ilya Gusman MD Primary Care Provider [phone] Encounter Details Date Type Department Care Team (Late st Contact Info) Description 11/07/2020 Orders Only [facility] - Health Information Department 143 [place] [address] Scan, No Provider Available [address] [facility] [place] [address] Social History Tobacco Use Types Packs/Day Years [...] 10:30 AM EST Office Visit [facility] - Internal Medicine [address] [place] [phone] Ilya Gusman MD [address] [place] [phone] Christophe Dailey MD [address] [place] [phone] 01/18/2026 1:00 PM EST Office Visit [facility] [address] [place] [address] Porsha Marsh, INVOICE CLERK [address] [place] [address] 02/22/2026 11:00 AM EDT Office Visit [facility] [address] [place] [address] [address] [place] [phone] Alonso Bae MD [address] [place] [address] [address] [place] [address] 07/17/2026 2:00 PM EDT Office Visit [facility] - Internal Medicine [address] [place] [phone] Ilya Gusman MD [address] [place] [phone] 07/19/2026 11:40 AM EDT Office Visit [facility] [address] [place] [address] Yesi Perez MD [address] [place] [address] documented as of this encounter Procedures Procedure [...] documented as of this encounter Care Teams Clam Shucking Machine Tender Relationship Specialty Start Date End Date Ilya Gusman MD [address] [place] [phone] PCP - General 05/14/17 [facility] 09/01/25 documented as of this encounter
--- OUTSIDE RECORDS SUMMARY | 2025-10-06 22:23 | XMS_ITS | Encounter Summary ---
Author Organization [facility] Address [address] [place] [address] Phone Care Team Providers Care Merry Go Round Attendant Name Role Phone Ilya Gusman MD Primary Care Provider [phone] Reason for Visit * Reason Onset Date Comments Med Refill Med Refill 02/19/2021 Encounter Details Date Type Department Care Team ([facility] Contact Info) Description 02/11/2021 Refill [facility] - Internal Medicine [address] [place] [address] [phone] Ilya Gusman MD [address] [place] [phone] Med Refill; Med Refill Social History [...] [facility] [address] [place] [phone] Ilya Gusman MD [address] [place] [phone] Christophe Dailey MD [address] [place] [phone] 01/18/2026 1:00 PM EST Office Visit [facility] [address] [place] [address] Porsha Marsh, MARILIA [address] [place] [address] 02/22/2026 11:00 AM EDT Office Visit [facility] [address] [place] [address] [address] [place] [phone] Alonso Bae MD [address] [place] [address] [address] [place] [address] 07/17/2026 2:00 PM EDT Office Visit [facility] - Internal Medicine [address] [place] [phone] Ilya Gusman MD [address] [place] [phone] 07/19/2026 11:40 AM EDT Office Visit [facility] [address] [place] [address] Yesi Perez MD [address] [place] [address] documented as of this encounter Visit Diagnoses [...] documented as of this encounter Care Teams Merry Go Round Attendant Relationship Specialty Start Date End Date Ilya Gusman MD [address] [place] [phone] PCP - General 05/14/17 [facility] 09/01/25 documented as of this encounter
--- OUTSIDE RECORDS SUMMARY | 2025-10-06 22:23 | XMS_ITS | Encounter Summary ---
Author Organization [employer] ystem Address [address] [place] [address] Phone Care Team Providers Care Aquatics Group Fitness Instructor Name Role Phone Ilya Gusman MD Primary Care Provider [phone] Encounter Details Date Type Department Care Team (Late st Contact Info) Description 09/09/2020 Scanned Document [facility] - Health Information Department [address] [place] [address] Scan, No Provider Available [address] [facility] [place] [address] <No scans attached> Social History Tobacco Use [...] Description 10/10/2025 10:30 AM EST Office Visit [facility] - Internal Medicine [address] [place] [phone] Ilya Gusman MD [address] [place] [phone] Christophe Dailey MD [address] [place] [phone] 01/18/2026 1:00 PM EST Office Visit [facility] [address] [place] [address] Porsha Marsh CNP [address] [place] [address] 02/22/2026 11:00 AM EDT Office Visit [facility] [address] [place] [address] [address] [place] [phone] Alonso Bae MD [address] [place] [address] [address] [place] [address] 07/17/2026 2:00 PM EDT Office Visit [facility] - Internal Medicine [address] [place] [phone] Ilya Gusman MD [address] [place] [phone] 07/19/2026 11:40 AM EDT Office Visit [facility] [address] [place] [address] Yesi Perez MD [address] [place] [address] documented as of this encounter Visit Diagnoses [...] documented as of this encounter Care Teams Aquatics Group Fitness Instructor Relationship Specialty Start Date End Date Ilya Gusman MD [address] [place] [phone] PCP - General 05/14/17 [facility] 09/01/25 documented as of this encounter
--- OUTSIDE RECORDS SUMMARY | 2025-10-06 22:23 | XMS_ITS | Encounter Summary ---
Author Organization [facility] ystem Address [address] [place] [address] Phone Care Team Providers Care Air Cargo Specialist Supervisor Name Role Phone Ilya Gusman MD Primary Care Provider [phone] Encounter Details Date Type Department Care Team (Late st Contact Info) Description 10/12/2020 Orders Only [facility] - Health Information Department 143 [place] [address] Scan, No Provider Available [address] [facility] [place] [address] Social History Tobacco Use Types Packs/Day Years [...] Visit [facility] - Internal Medicine [address] [place] [phone] Ilya Gusman MD [address] [place] [phone] Christophe Dailey MD [address] [place] [phone] 01/18/2026 1:00 PM EST Office Visit [facility] [address] [place] [address] Porsha Marsh, TEXTURE ARTIST [address] [place] [address] 02/22/2026 11:00 AM EDT Office Visit [facility] [address] [place] [address] [address] [place] [phone] Alonso Bae MD [address] [place] [address] [address] [place] [address] 07/17/2026 2:00 PM EDT Office Visit [facility] - Internal Medicine [address] [place] [phone] Ilya Gusman MD [address] [place] [phone] 07/19/2026 11:40 AM EDT Office Visit [facility] [address] [place] [address] Yesi Perez MD [address] [place] [address] documented as of this encounter Procedures Procedure Name Priority Date/Time Associated Diagnosis Comments MR INO COX Routine 09/28/2020 documented in this encounter Results * MR Ino cox (09/28/2020) us No Provider Available Scan [...] documented as of this encounter Care Teams Air Cargo Specialist Supervisor Relationship Specialty Start Date End Date Ilya Gusman MD [address] [place] [phone] PCP - General 05/14/17 [facility] 09/01/25 documented as of this encounter
--- OUTSIDE RECORDS SUMMARY | 2025-10-06 22:23 | XMS_ITS | Encounter Summary ---
Author Organization [facility] ystem Address [address] [place] [address] Phone Care Team Providers Care Coil Inspector Name Role Phone Ilya Gusman MD Primary Care Provider [phone] Encounter Details Date Type Department Care Team (Late st Contact Info) Description 10/16/2020 Scanned Document [facility] - Health Information Department 143 [place] [address] Scan, No Provider Available [address] [facility] [place] [address] <No scans attached> Social History Tobacco Use [...] 10:30 AM EST Office Visit [facility] - Internal Medicine [address] [place] [phone] Ilya Gusman MD [address] [place] [phone] Christophe Dailey MD [address] [place] [phone] 01/18/2026 1:00 PM EST Office Visit [facility] [address] [place] [address] Porsha Marsh, MARILIA [address] [place] [address] 02/22/2026 11:00 AM EDT Office Visit [facility] [address] [place] [address] [address] [place] [phone] Alonso Bae MD [address] [place] [address] [address] [place] [address] 07/17/2026 2:00 PM EDT Office Visit [facility] - Internal Medicine [address] [place] [phone] Ilya Gusman MD [address] [place] [phone] 07/19/2026 11:40 AM EDT Office Visit [facility] [address] [place] [address] Yesi Perez MD [address] [place] [address] documented as of this encounter Visit Diagnoses [...] documented as of this encounter Care Teams Coil Inspector Relationship Specialty Start Date End Date Ilya Gusman MD [address] [place] [phone] PCP - General 05/14/17 [facility] 09/01/25 documented as of this encounter
--- OUTSIDE RECORDS SUMMARY | 2025-10-06 22:23 | XMS_ITS | Encounter Summary ---
Author Organization [facility] ystem Address [address] [place] [address] Phone Care Team Providers Care Public Relations Counselor Name Role Phone Ilya Gusman MD Primary Care Provider [phone] Reason for Visit * Reason Comments Med Refill Encounter Details Date Type Department Care Team (Late Contact Info) Description 10/12/[address] 55 [place] [phone] Franklin Davis MD [address] [place] [address] Med Refill Social History Tobacco Use Types [...] Description 10/10/2025 10:30 AM EST Office Visit [facility] - Internal Medicine [address] [place] [phone] Ilya Gusman MD [address] [place] [phone] Christophe Dailey MD [address] [place] [address] [phone] 01/18/2026 1:00 PM EST Office Visit [facility] [address] [place] [phone] Porsha Marsh, CHART CALCULATOR [address] [place] [address] 02/22/2026 11:00 AM EDT Office Visit [facility] [address] [place] [address] [address] [place] [phone] Alonso Bae MD [address] [place] [address] [address] [place] [address] 07/17/2026 2:00 PM EDT Office Visit [facility] - Internal Medicine [address] [place] [phone] Ilya Gusman MD [address] [place] [phone] 07/19/2026 11:40 AM EDT Office Visit [facility] [address] [place] [address] Yesi Perez MD 70 [place] [address] documented as of this encounter Visit Diagnoses [...] documented as of this encounter Care Teams Public Relations Counselor Relationship Specialty Start Date End Date Ilya Gusman MD [address] [place] [phone] PCP - General 05/14/17 [facility] 09/01/25 documented as of this encounter
--- OUTSIDE RECORDS SUMMARY | 2025-10-06 22:23 | XMS_ITS | Encounter Summary ---
Author Organization [facility] ystem Address [address] [place] [address] Phone Care Team Providers Care Carver And Checkerer Specials Name Role Phone Ilya Gusman MD Primary Care Provider [phone] Encounter Details Date Type Department Care Team (Late st Contact Info) Description 10/11/2020 Orders Only [facility] - Health Information Department 143 [place] [address] Scan, No Provider Available 141 [facility] [place] [address] Social History Tobacco Use Types Packs/Day Years [...] 10:30 AM EST Office Visit [facility] - Internal Medicine [address] [place] [phone] Ilya Gusman MD [address] [place] [phone] Christophe Dailey MD [address] [place] [phone] 01/18/2026 1:00 PM EST Office Visit [facility] [address] [place] [phone] Porsha Marsh, SOFTWARE SYSTEMS ARCHITECT [address] [place] [address] 02/22/2026 11:00 AM EDT Office Visit [facility] [address] [place] [address] [address] [place] [phone] Alonso Bae MD [address] [place] [address] [address] [place] [address] 07/17/2026 2:00 PM EDT Office Visit [facility] - Internal Medicine [address] [place] [phone] Ilya Gusman MD [address] [place] [phone] 07/19/2026 11:40 AM EDT Office Visit [facility] [address] [place] [address] Yesi Perez MD [address] [place] [address] documented as of this encounter Procedures Procedure [...] documented as of this encounter Care Teams Carver And Checkerer Specials Relationship Specialty Start Date End Date Ilya Gusman MD [address] [place] [phone] ([place]) PCP - General 05/14/17 [facility] 09/01/25 documented as of this encounter
--- OUTSIDE RECORDS SUMMARY | 2025-10-06 22:23 | XMS_ITS | Encounter Summary ---
Author Organization [facility] ystem Address [address] [place] [address] Phone Care Team Providers Care Skin Care Therapist Name Role Phone Ilya Gusman MD Primary Care Provider Encounter Details Date Type Department Care Team (Late st Contact Info) Description 09/14/2020 Scanned Document [facility] - Health Information Department 143 [place] [address] Scan, No Provider Available [address] [facility] [place] [address] <No scans attached> Social History Tobacco Use [...] 10:30 AM EST Office Visit [facility] - Internal Medicine [address] [place] [phone] Ilya Gusman MD [address] [place] [phone] Christophe Dailey MD [address] [place] [phone] 01/18/2026 1:00 PM EST Office Visit [facility] [address] [place] [address] Porsha Marsh CNP [address] [place] [address] 02/22/2026 11:00 AM EDT Office Visit [facility] [address] [place] [address] [address] [place] [phone] Alonso Bae MD [address] [place] [address] [address] [place] [address] 07/17/2026 2:00 PM EDT Office Visit [facility] - Internal Medicine [address] [place] [phone] Ilya Gusman MD [address] [place] [phone] 07/19/2026 11:40 AM EDT Office Visit [facility] [address] [place] [address] Yesi Perez MD [address] [place] [address] documented as of this encounter Visit Diagnoses [...] documented as of this encounter Care Teams Skin Care Therapist Relationship Specialty Start Date End Date Ilya Gusman MD [address] [place] [address] [phone] PCP - General 05/14/17 [facility] 09/01/25 documented as of this encounter
--- OUTSIDE RECORDS SUMMARY | 2025-10-06 22:23 | XMS_ITS | Encounter Summary ---
Author Organization [facility] ystem Address [address] [place] [address] Phone Care Team Providers Care Disability Liaison Officer Name Role Phone Ilya Gusman MD Primary Care Provider [phone] Encounter Details Date Type Department Care Team (Late Contact Info) Description 02/01/2021 Scanned Document [facility] - Health Information Department 143 [place], [place] [id number] Scan, No Provider Available [address] [place] [address] [place] [address] <No scans attached> Social History Tobacco Use [...] Description 10/10/2025 10:30 AM EST Office Visit [facility] - Internal Medicine [address] [place] [phone] Ilya Gusman MD [address] [place] [phone] Christophe Dailey MD [address] [place] [phone] 01/18/2026 1:00 PM EST Office Visit [facility] [address] [place] [address] Porsha Marsh, MARILIA [address] [place] [address] 02/22/2026 11:00 AM EDT Office Visit [facility] [address] [place] [address] [address] [place] [phone] Alonso Bae MD [address] [place] [address] [address] [place] [address] 07/17/2026 2:00 PM EDT Office Visit [facility] - Internal Medicine [address] [place] [phone] Ilya Gusman MD [address] [place] [phone] 07/19/2026 11:40 AM EDT Office Visit [facility] [address] [place] [address] Yesi Perez MD [address] [place] [address] documented as of this encounter Visit Diagnoses [...] documented as of this encounter Care Teams Disability Liaison Officer Relationship Specialty Start Date End Date Ilya Gusman MD [address] [place] [address] [phone] PCP - General 05/14/17 [facility] 09/01/25 documented as of this encounter
--- OUTSIDE RECORDS SUMMARY | 2025-10-06 22:23 | XMS_ITS | Encounter Summary ---
Author Organization [facility] ystem Address [address] [place] [address] Phone Care Team Providers Care Electrical Technician Instructor Name Role Phone Ilya Gusman MD Primary Care Provider [phone] Encounter Details Date Type Department Care Team (Late Contact Info) Description 10/03/2020 Orders Only [facility] - Health Information Department 143 [place] [address] Scan, No Provider Available [address] [place] [address] [place] [address] Social History Tobacco Use Types Packs/Day Years [...] [facility] - Internal Medicine [address] [place] [phone] Ilya Gusman MD [address] [place] [phone] Christophe Dailey MD [address] [place] [phone] 01/18/2026 1:00 PM EST Office Visit [facility] [address] [place] [address] Porsha Marsh, MARILIA [address] [place] [address] 02/22/2026 11:00 AM EDT Office Visit [facility] [address] [place] [address] [address] [place] [phone] Alonso Bae MD [address] [place] [address] [address] [place] [address] 07/17/2026 2:00 PM EDT Office Visit [facility] - Internal Medicine [address] [place] [phone] Ilya Gusman MD [address] [place] [phone] 07/19/2026 11:40 AM EDT Office Visit [facility] [address] [place] [address] Yesi Perez MD [address] [place] [address] documented as of this encounter Procedures [...] documented as of this encounter Care Teams Electrical Technician Instructor Relationship Specialty Start Date End Date Ilya Gusman MD [address] [place] [phone] PCP - General 05/14/17 [facility] 09/01/25 documented as of this encounter
--- OUTSIDE RECORDS SUMMARY | 2025-10-06 22:23 | XMS_ITS | Encounter Summary ---
Author Organization [facility] ystem Address [address] [place] [address] Phone Care Team Providers Care Lapeler Name Role Phone Ilya Gusman MD Primary Care Provider [phone] Encounter Details Date Type Department Care Team (Late Contact Info) Description 09/29/2020 Scanned Document [facility] - Health Information Department 143 [place] [address] Scan, No Provider Available [address] [place] [address] [facility] [place] [address] <No scans attached> Social History Tobacco Use [...] [facility] - Internal Medicine [address] [place] [phone] Ilya Gusman MD [address] [place] [phone] Christophe Dailey MD [address] [place] [phone] 01/18/2026 1:00 PM EST Office Visit [facility] [address] [place] [phone] Porsha Marsh, RADIOLOGICAL HEALTH SPECIALIST [address] [place] [address] 02/22/2026 11:00 AM EDT Office Visit [facility] [address] [place] [address] [address] [place] [address] Alonso Bae MD [address] [place] [address] [address] [place] [address] 07/17/2026 2:00 PM EDT Office Visit [facility] - Internal Medicine [address] [place] [phone] Ilya Gusman MD [address] [place] [phone] 07/19/2026 11:40 AM EDT Office Visit [facility] [address] [place] [address] Yesi Perez MD [address] [place] [address] 8[address] documented as of this encounter Visit Diagnoses [...] documented as of this encounter Care Teams Lapeler Relationship Specialty Start Date End Date Ilya Gusman MD [address] [place] [phone] PCP - General 05/14/17 [facility] 09/01/25 documented as of this encounter
--- OUTSIDE RECORDS SUMMARY | 2025-10-06 22:23 | XMS_ITS | Encounter Summary ---
Author Organization [facility] ystem Address [address] [place] [address] Phone Care Team Providers Care Loss Prevention Manager Name Role Phone Ilya Gusman MD Primary Care Provider [phone] Encounter Details Date Type Department Care Team (Late Contact Info) Description 02/05/2021 Orders Only [facility] - Health Information Department [address] [place] [address] Scan, No Provider Available [address] [place] [address] Social History Tobacco Use Types Packs/Day Years [...] [facility] - Internal Medicine [address] [place] [phone] Ilya Gusman MD [address] [place] [phone] Christophe Dailey MD [address] [place] [phone] 01/18/2026 1:00 PM EST Office Visit [facility] [address] [place] [address] Porsha Marsh CNP [address] [place] [address] 02/22/2026 11:00 AM EDT Office Visit [facility] [address] [place] [address] [address] [place] [phone] Alonso Bae MD [address] [place] [address] [address] [place] [address] 07/17/2026 2:00 PM EDT Office Visit [facility] - Internal Medicine [address] [place] [phone] Ilya Gusman MD [address] [place] [phone] 07/19/2026 11:40 AM EDT Office Visit [facility] [address] [place] [address] Yesi Perez MD [address] [place] [address] documented as of this encounter Procedures Procedure [...] documented as of this encounter Care Teams Loss Prevention Manager Relationship Specialty Start Date End Date Ilya Gusman MD [address] [place] [phone] PCP - General 05/14/17 [facility] 09/01/25 documented as of this encounter
--- OUTSIDE RECORDS SUMMARY | 2025-10-06 22:23 | XMS_ITS | Encounter Summary ---
Author Organization [facility] ystem Address [address] [place] [address] Phone Care Team Providers Care C++ Quant Developer Name Role Phone Ilya Gusman MD Primary Care Provider [phone] Encounter Details Date Type Department Care Team (Late st Contact Info) Description 07/11/2020 Scanned Document [facility] - Health Information Department 143 [place] [address] Scan, No Provider Available [address] [facility] [address] <No scans attached> Social History Tobacco Use [...] [facility] Internal Medicine [address] [place] [phone] Ilya Gusman MD [address] [place] [phone] Christophe Dailey MD [address] [place] [phone] 01/18/2026 1:00 PM EST Office Visit [facility] [address] [place] [address] Porsha Marsh CNP [address] [place] [address] 02/22/2026 11:00 AM EDT Office Visit [facility] [address] [place] [address] [address] [place] [phone] Alonso Bae MD [address] [place] [address] [address] [place] [address] 07/17/2026 2:00 PM EDT Office Visit [facility] - Internal Medicine [address] [place] [phone] Ilya Gusman MD [address] [place] [phone] 07/19/2026 11:40 AM EDT Office Visit [facility] [address] [place] [address] Yesi Perez MD [address] [place] [address] documented as of this encounter Visit Diagnoses [...] documented as of this encounter Care Teams C++ Quant Developer Relationship Specialty Start Date End Date Ilya Gusman MD [address] [place] [address] [phone] PCP - General 05/14/17 [facility] 09/01/25 documented as of this encounter
--- OUTSIDE RECORDS SUMMARY | 2025-10-06 22:23 | XMS_ITS | Encounter Summary ---
Author Organization [facility] ystem Address [address] [place] [address] Phone Care Team Providers Care Automotive Manager Name Role Phone Ilya Gusman MD Primary Care Provider [phone] Encounter Details Date Type Department Care Team (Late Contact Info) Description 01/18/2021 Scanned Document [facility] - Health Information Department 143 [place], [place] [id number] Scan, No Provider Available [address] [place] [address] [place] [address] <No scans attached> Social History Tobacco Use [...] [facility] - Internal Medicine [address] [place] [phone] Ilya Gusman MD [address] [place] [phone] Christophe Dailey MD [address] [place] [phone] 01/18/2026 1:00 PM EST Office Visit [facility] [address] [place] [address] Porsha Marsh, MARILIA [address] [place] [address] 02/22/2026 11:00 AM EDT Office Visit [facility] [address] [place] [address] [address] [place] [phone] Alonso Bae MD [address] [place] [address] [address] [place] [address] 07/17/2026 2:00 PM EDT Office Visit [facility] - Internal Medicine [address] [place] [address] [phone] Ilya Gusman MD [address] [place] [phone] 07/19/2026 11:40 AM EDT Office Visit [facility] [address] [place] [address] Yesi Perez MD [address] [place] [address] documented as of this encounter Visit Diagnoses [...] documented as of this encounter Care Teams Automotive Manager Relationship Specialty Start Date End Date Ilya Gusman MD [address] [place] [address] [phone] PCP - General 05/14/17 [facility] 09/01/25 documented as of this encounter
--- OUTSIDE RECORDS SUMMARY | 2025-10-06 22:23 | XMS_ITS | Encounter Summary ---
Author Organization [facility] ystem Address [address] [place] [address] Phone Care Team Providers Care Punch Hand Name Role Phone Ilya Gusman MD Primary Care Provider [phone] Encounter Details Date Type Department Care Team (Late Contact Info) Description 09/28/2020 Scanned Document [facility] - Health Information Department [address] [place] [address] Scan, No Provider Available [address] [place] [address] [place] [address] <No scans attached> Social History Tobacco Use [...] Visit [facility] - Internal Medicine [address] [place] [phone] Ilya Gusman MD [address] [place] [phone] Christophe Dailey MD [address] [place] [phone] 01/18/2026 1:00 PM EST Office Visit [facility] [address] [place] [address] Porsha Marsh, DISTILLERY WORKER GENERAL [address] [place] [address] 02/22/2026 11:00 AM EDT Office Visit [facility] [address] [place] [address] [address] [place] [phone] Alonso Bae MD [address] [place] [address] [address] [place] [address] 07/17/2026 2:00 PM EDT Office Visit [facility] - Internal Medicine [address] [place] [address] [phone] Ilya Gusman MD [address] [place] [phone] 07/19/2026 11:40 AM EDT Office Visit [facility] [address] [place] [address] Yesi Perez MD [address] [place] [address] documented as of this encounter Visit Diagnoses [...] as of this encounter Care Teams Punch Hand Relationship Specialty Start Date End Date Ilya Gusman MD [address] [place] [phone] PCP - General 05/14/17 [facility] 09/01/25 documented as of this encounter
--- OUTSIDE RECORDS SUMMARY | 2025-10-06 22:23 | XMS_ITS | Encounter Summary ---
Author Organization [facility] ystem Address [address] [place] [address] Phone Care Team Providers Care Civil Lawyer Name Role Phone Ilya Gusman MD Primary Care Provider [phone] Encounter Details Date Type Department Care Team (Late Contact Info) Description 02/13/2021 Orders Only [facility] - Health Information Department 143 [place] [address] Scan, No Provider Available [address] [facility] [place] [address] Social History Tobacco Use Types Packs/Day Years [...] [facility] - Internal Medicine [address] [place] [phone] Ilya Gusman MD [address] [place] [phone] Christophe Dailey MD [address] [place] [phone] 01/18/2026 1:00 PM EST Office Visit [facility] [address] [place] [address] Porsha Marsh, MARILIA [address] [place] [address] 02/22/2026 11:00 AM EDT Office Visit [facility] [address] [place] [address] [address] [place] [phone] Alonso Bae MD [address] [place] [address] [address] [place] [address] 07/17/2026 2:00 PM EDT Office Visit [facility] - Internal Medicine [address] [place] [phone] Ilya Gusman MD [address] [place] [phone] 07/19/2026 11:40 AM EDT Office Visit [facility] [address] [place] [address] Yesi Perez MD [address] [place] [address] documented as of this encounter Procedures Procedure [...] documented as of this encounter Care Teams Civil Lawyer Relationship Specialty Start Date End Date Ilya Gusman MD 143 [place] [phone] PCP - General 05/14/17 [facility] 09/01/25 documented as of this encounter
--- OUTSIDE RECORDS SUMMARY | 2025-10-06 22:23 | XMS_ITS | Encounter Summary ---
Author Organization [facility] ystem Address [address] [place] [address] Phone Care Team Providers Care Manufacturing Electrician Name Role Phone Ilya Gusman MD Primary Care Provider [phone] Encounter Details Date Type Department Care Team (Late st Contact Info) Description 08/29/2020 Orders Only [facility] - Health Information Department [address] [place] [address] Scan, No Provider Available [address] [facility] [place] [address] Social History Tobacco Use Types Packs/Day Years [...] [facility] - Internal Medicine [address] [place] [phone] Ilya Gusman MD [address] [place] [phone] Christophe Dailey MD [address] [place] [phone] 01/18/2026 1:00 PM EST Office Visit [facility] [address] [place] [address] Porsha Marsh, PATIENT SUPPORT REPRESENTATIVE [address] [place] [address] 02/22/2026 11:00 AM EDT Office Visit [facility] [address] [place] [address] [address] [place] [phone] Alonso Bae MD [address] [place] [address] [address] [place] [address] 07/17/2026 2:00 PM EDT Office Visit [facility] - Internal Medicine [address] [place] [phone] Ilya Gusman MD [address] [place] [phone] 07/19/2026 11:40 AM EDT Office Visit [facility] [address] [place] [address] Yesi Perez MD [address] [place] [address] documented as of this encounter Procedures Procedure Name Priority Date/Time Associated Diagnosis Comments DIABETES EYE EXAM Routine 08/14/2020 documented in this encounter Results * Diabetes Eye Exam (08/14/2020) us No Provider Available Scan [facility] Fi nal Result documented in [...] as of this encounter Care Teams Manufacturing Electrician Relationship Specialty Start Date End Date Ilya Gusman MD [address] [place] [phone] PCP - General 05/14/17 [facility] 09/01/25 documented as of this encounter
--- OUTSIDE RECORDS SUMMARY | 2025-10-06 22:23 | XMS_ITS | Encounter Summary ---
Author Organization [facility] Address [address] [place] [address] Phone Care Team Providers Care Etcher Aircraft Name Role Phone Ilya Gusman MD Primary Care Provider [phone] Reason for Visit * Reason Comments Med Refill Encounter Details Date Type Department Care Team (Late st Contact Info) Description 12/05/2020 Refill [facility] - Internal Medicine [address] [place] [phone] Christophe Dailey MD [address] [place] [phone] Med Refill Social History Tobacco Use [...] Description 10/10/2025 10:30 AM EST Office Visit [facility] - Internal Medicine [address] [place] [phone] Ilya Gusman MD [address] [place] [phone] Christophe Dailey MD [address] [place] [address] [phone] 01/18/2026 1:00 PM EST Office Visit [facility] [address] [address] Porsha Marsh CNP 70 [place] [address] 02/22/2026 11:00 AM EDT Office Visit [facility] [address] [place] [address] [address] [place] [phone] Alonso Bae MD [address] [place] [address] [address] [place] [address] 07/17/2026 2:00 PM EDT Office Visit [facility] - Internal Medicine [address] [place] [phone] Ilya Gusman MD [address] [place] [phone] 07/19/2026 11:40 AM EDT Office Visit [facility] [address] [address] Yesi Perez MD 70 [place] [address] documented as of this encounter Visit Diagnoses [...] documented as of this encounter Care Teams Etcher Aircraft Relationship Specialty Start Date End Date Ilya Gusman MD [address] [place] [phone] PCP - General 05/14/17 [facility] 09/01/25 documented as of this encounter
--- OUTSIDE RECORDS SUMMARY | 2025-10-06 22:23 | XMS_ITS | Encounter Summary ---
Author Organization [facility] ystem Address [address] [place] [address] Phone Care Team Providers Care Um Rn Name Role Phone Ilya Gusman MD Primary Care Provider [phone] Encounter Details Date Type Department Care Team (Late st Contact Info) Description 10/23/2020 Scanned Document [facility] - Health Information Department 143 [place] [address] Scan, No Provider Available [address] [place] [address] <No scans attached> Social History Tobacco Use [...] 10:30 AM EST Office Visit [facility] - Internal Medicine [address] [place] [phone] Ilya Gusman MD [address] [place] [phone] Christophe Dailey MD [address] [place] [phone] 01/18/2026 1:00 PM EST Office Visit [facility] [address] [place] [address] Porsha Marsh, MARILIA [address] [place] [address] 02/22/2026 11:00 AM EDT Office Visit [facility] [address] [place] [address] [address] [place] [phone] Alonso Bae MD [address] [place] [address] [address] [place] [address] 07/17/2026 2:00 PM EDT Office Visit [facility] - Internal Medicine [address] [place] [phone] Ilya Gusman MD [address] [place] [phone] 07/19/2026 11:40 AM EDT Office Visit [facility] [address] [place] [address] Yesi Perez MD [address] [place] [address] documented as of this encounter Visit Diagnoses [...] documented as of this encounter Care Teams Um Rn Relationship Specialty Start Date End Date Ilya Gusman MD [address] [place] [phone] PCP - General 05/14/17 [facility] 09/01/25 documented as of this encounter
--- OUTSIDE RECORDS SUMMARY | 2025-10-06 22:23 | XMS_ITS | Encounter Summary ---
Author Organization [facility] ystem Address [address] [place] [address] Phone Care Team Providers Care Vice President Planning Name Role Phone Ilya Gusman MD Primary Care Provider [phone] Encounter Details Date Type Department Care Team (Late Contact Info) Description 09/25/2020 Orders Only [facility] - Health Information Department 143 [place] [address] Scan, No Provider Available [address] [place] [address] [place] [address] Social History Tobacco Use Types Packs/Day Years [...] [facility] - Internal Medicine [address] [place] [phone] Ilya Gusman MD [address] [place] [phone] Christophe Dailey MD [address] [place] [phone] 01/18/2026 1:00 PM EST Office Visit [facility] [address] [place] [address] Porsha Marsh, MARILIA [address] [place] [address] 02/22/2026 11:00 AM EDT Office Visit [facility] [address] [place] [address] [address] [place] [phone] Alonso Bae MD [address] [place] [address] [address] [place] [address] 07/17/2026 2:00 PM EDT Office Visit [facility] - Internal Medicine [address] [place] [phone] Ilya Gusman MD [address] [place] [phone] 07/19/2026 11:40 AM EDT Office Visit [facility] [address] [place] [address] Yesi Perez MD [address] [place] [address] documented as of this encounter Procedures Procedure [...] documented as of this encounter Care Teams Vice President Planning Relationship Specialty Start Date End Date Ilya Gusman MD [address] [place] [phone] PCP - General 05/14/17 [facility] 09/01/25 documented as of this encounter
--- OUTSIDE RECORDS SUMMARY | 2025-10-06 22:23 | XMS_ITS | Encounter Summary ---
Author Organization [facility] ystem Address [address] [place] [address] Phone Care Team Providers Care Order Worker Name Role Phone Ilya Gusman MD Primary Care Provider [phone] Encounter Details Date Type Department Care Team (Late st Contact Info) Description 09/15/2020 Scanned Document [facility] - Health Information Department 143 [place] [address] Scan, No Provider Available [address] [facility] [place] [address] <No scans attached> Social History Tobacco Use [...] Visit [facility] - Internal Medicine [address] [place] [phone] Ilya Gusman MD [address] [place] [phone] Christophe Dailey MD [address] [place] [phone] 01/18/2026 1:00 PM EST Office Visit [facility] [address] [place] [address] Porsha Marsh CNP [address] [place] [address] 02/22/2026 11:00 AM EDT Office Visit [facility] [address] [place] [address] [address] [place] [phone] Alonso Bae MD [address] [place] [address] [address] [place] [address] 07/17/2026 2:00 PM EDT Office Visit [facility] - Internal Medicine [address] [place] [phone] Ilya Gumsan MD [address] [place] [phone] 07/19/2026 11:40 AM EDT Office Visit [facility] [address] [place] [address] Yesi Perez MD [address] [place] [address] documented as of this encounter Visit Diagnoses [...] documented as of this encounter Care Teams Order Worker Relationship Specialty Start Date End Date Ilya Gusman MD [address] [place] [address] [phone] PCP - General 05/14/17 [facility] 09/01/25 documented as of this encounter
--- OUTSIDE RECORDS SUMMARY | 2025-10-06 22:23 | XMS_ITS | Encounter Summary ---
Author Organization [facility] ystem Address [address] [place] [address] Phone Care Team Providers Care Collection Teller Name Role Phone Ilya Gusman MD Primary Care Provider [phone] Encounter Details Date Type Department Care Team (Late st Contact Info) Description 09/09/[address] [facility] - Health Information Department 143 [place] [address] Scan, No Provider Available [address] [facility] [place] [address] <No scans attached> Social History Tobacco Use [...] [facility] [address] [place] [phone] Ilya Gusman MD [address] [place] [phone] Christophe Dailey MD [address] [place] [phone] 01/18/2026 1:00 PM EST Office Visit [facility] [address] [place] [address] Porsha Marsh CNP [address] [place] [address] 02/22/2026 11:00 AM EDT Office Visit [facility] [address] [place] [address] [address] [place] [phone] Alonso Bae MD [address] [place] [address] [address] [place] [address] 07/17/2026 2:00 PM EDT Office Visit [facility] - Internal Medicine [address] [place] [phone] Ilya Gusman MD [address] [place] [phone] 07/19/2026 11:40 AM EDT Office Visit [facility] [address] [place] [address] Yesi Perez MD [address] [place] [address] documented as of this encounter Visit Diagnoses [...] documented as of this encounter Care Teams Collection Teller Relationship Specialty Start Date End Date Ilya Gusman MD [address] [place] [address] [phone] PCP - General 05/14/17 [facility] 09/01/25 documented as of this encounter
--- OUTSIDE RECORDS SUMMARY | 2025-10-06 22:23 | XMS_ITS | Encounter Summary ---
Author Organization [facility] ystem Address [address] [place] [address] Phone Care Team Providers Care Seam Stay Stitcher Name Role Phone Ilya Gusman MD Primary Care Provider [phone] Encounter Details Date Type Department Care Team (Late st Contact Info) Description 07/19/2020 Scanned Document [facility] - Health Information Department 143 [place] [address] Scan, No Provider Available [address] [facility] [place] [address] <No scans attached> Social History Tobacco Use [...] Description 10/10/2025 10:30 AM EST Office Visit [facility] - Internal Medicine [address] [place] [phone] Ilya Gusman MD [address] [place] [phone] Christophe Dailey MD [address] [place] [phone] 01/18/2026 1:00 PM EST Office Visit [facility] [address] [place] [address] Porsha Marsh CNP [address] [place] [address] 02/22/2026 11:00 AM EDT Office Visit [facility] [address] [place] [address] [address] [place] [phone] Alonso Bae MD [address] [place] [address] [address] [place] [address] 07/17/2026 2:00 PM EDT Office Visit [facility] - Internal Medicine [address] [place] [phone] Ilya Gusman MD [address] [place] [phone] 07/19/2026 11:40 AM EDT Office Visit [facility] [address] [place] [address] Yesi Perez MD [address] [place] [address] documented as of this encounter Visit Diagnoses [...] documented as of this encounter Care Teams Seam Stay Stitcher Relationship Specialty Start Date End Date Ilya Gusman MD [address] [place] [address] [phone] PCP - General 05/14/17 [facility] 09/01/25 documented as of this encounter
--- OUTSIDE RECORDS SUMMARY | 2025-10-06 22:23 | XMS_ITS | Encounter Summary ---
Author Organization [facility] ystem Address [address] [place] [address] Phone Care Team Providers Care Construction Grip Name Role Phone Ilya Gusman MD Primary Care Provider [phone] Encounter Details Date Type Department Care Team (Late Contact Info) Description 10/03/2020 Scanned Document [facility] - Health Information Department 143 [place] [address] Scan, No Provider Available [address] [place] [address] [place] [address] <No scans attached> Social History Tobacco Use [...] 10:30 AM EST Office Visit [facility] - Internal Medicine [address] [place] [phone] Ilya Gusman MD [address] [place] [phone] Christophe Dailey MD [address] [place] [phone] 01/18/2026 1:00 PM EST Office Visit [facility] [address] [place] [address] Porsha Marsh, ALLOY WEIGHER [address] [place] [address] 02/22/2026 11:00 AM EDT Office Visit [facility] [address] [place] [address] [address] [place] [phone] Alonso Bae MD [address] [place] [address] [address] [place] [address] 07/17/2026 2:00 PM EDT Office Visit [facility] - Internal Medicine [address] [place] [address] [phone] Ilya Gusman MD [address] [place] [phone] 07/19/2026 11:40 AM EDT Office Visit [facility] [address] [place] [address] Yesi Perez MD [address] [place] [address] documented as of this encounter Visit Diagnoses [...] as of this encounter Care Teams Construction Grip Relationship Specialty Start Date End Date Ilya Gusman MD [address] [place] [phone] PCP - General 05/14/17 [facility] 09/01/25 documented as of this encounter
--- OUTSIDE RECORDS SUMMARY | 2025-10-06 22:23 | XMS_ITS | Encounter Summary ---
Author Organization [facility] ystem Address [address] [place] [address] Phone Care Team Providers Care Aerial Lineman Name Role Phone Ilya Gusman MD Primary Care Provider [phone] Encounter Details Date Type Department Care Team (Late st Contact Info) Description 10/10/2020 Orders Only [facility] - Health Information Department 143 [place] [address] Scan, No Provider Available [address] [facility] [place] [address] Social History Tobacco Use Types Packs/Day Years [...] Description 10/10/2025 10:30 AM EST Office Visit [facility] - Internal Medicine [address] [place] [phone] Ilya Gusman MD [address] [place] [phone] Christophe Dailey MD [address] [place] [phone] 01/18/2026 1:00 PM EST Office Visit [facility] [address] [place] [address] Porsha Marsh, DICTATING MACHINE MECHANIC [address] [place] [address] 02/22/2026 11:00 AM EDT Office Visit [facility] [address] [place] [address] [address] [place] [phone] Alonso Bae MD [address] [place] [address] [address] [place] [address] 07/17/2026 2:00 PM EDT Office Visit [facility] - Internal Medicine [address] [place] [phone] Ilya Gusman MD [address] [place] [phone] 07/19/2026 11:40 AM EDT Office Visit [facility] [address] [place] [address] Yesi Perez MD [address] [place] [address] documented as of this encounter Procedures Procedure [...] documented as of this encounter Care Teams Aerial Lineman Relationship Specialty Start Date End Date Ilya Gusman MD [address] [place] [phone] PCP - General 05/14/17 [facility] 09/01/25 documented as of this encounter
--- OUTSIDE RECORDS SUMMARY | 2025-10-06 22:23 | XMS_ITS | Encounter Summary ---
Author Organization [facility] ystem Address [address] [place] [address] Phone Care Team Providers Care Ios Software Engineer Name Role Phone Ilya Gusman MD Primary Care Provider [phone] Encounter Details Date Type Department Care Team (Late st Contact Info) Description 07/26/2020 Scanned Document [facility] - Health Information Department 143 [place] [address] Scan, No Provider Available [address] [facility] [place] [address] <No scans attached> Social History Tobacco Use [...] Description 10/10/2025 10:30 AM EST Office Visit [facility] - Internal Medicine [address] [place] [phone] Ilya Gusman MD [address] [place] [phone] Christophe Dailey MD [address] [place] [phone] 01/18/2026 1:00 PM EST Office Visit [facility] [address] [place] [phone] Porsha Marsh CNP [address] [place] [address] 02/22/2026 11:00 AM EDT Office Visit [facility] [address] [place] [address] [address] [place] [phone] Alonso Bae MD [address] [place] [address] [address] [place] [address] 07/17/2026 2:00 PM EDT Office Visit [facility] - Internal Medicine [address] [place] [phone] Ilya Gusman MD [address] [place] [phone] 07/19/2026 11:40 AM EDT Office Visit [facility] [address] [place] [address] Yesi Perez MD [address] [place] [address] documented as of this encounter Visit Diagnoses [...] documented as of this encounter Care Teams Ios Software Engineer Relationship Specialty Start Date End Date Ilya Gusman MD [address] [place] [address] [phone] PCP - General 05/14/17 [facility] 09/01/25 documented as of this encounter
--- OUTSIDE RECORDS SUMMARY | 2025-10-06 22:23 | XMS_ITS | Encounter Summary ---
Author Organization [facility] ystem Address [address] [place] [address] Phone Care Team Providers Care Brick Shader Name Role Phone Ilya Gusman MD Primary Care Provider [phone] Encounter Details Date Type Department Care Team (Late st Contact Info) Description 09/22/2020 Orders Only [facility] - Health Information Department [address] [place] [address] Scan, No Provider Available [address] [facility] [place] [address] Social History Tobacco Use Types Packs/Day Years [...] Visit [facility] - Internal Medicine [address] [place] [phone] Ilya Gusman MD [address] [place] [phone] Christophe Dailey MD [address] [place] [phone] 01/18/2026 1:00 PM EST Office Visit [facility] [address] [place] [address] Porsha Marsh, ICE CREAM CHEF [address] [place] [address] 02/22/2026 11:00 AM EDT Office Visit [facility] [address] [place] [address] [address] [place] [phone] Alonso Bae MD [address] [place] [address] [address] [place] [address] 07/17/2026 2:00 PM EDT Office Visit [facility] - Internal Medicine [address] [place] [phone] Ilya Gusman MD [address] [place] [phone] 07/19/2026 11:40 AM EDT Office Visit [facility] [address] [place] [address] Yesi Perez MD [address] [place] [address] documented as of this encounter Procedures Procedure [...] as of this encounter Care Teams Brick Shader Relationship Specialty Start Date End Date Ilya Gusman MD [address] [place] [phone] PCP - General 05/14/17 [facility] 09/01/25 documented as of this encounter
--- OUTSIDE RECORDS SUMMARY | 2025-10-06 22:23 | XMS_ITS | Encounter Summary ---
Author Organization [facility] ystem Address [address] [place] [address] Phone Care Team Providers Care Project Consultant Name Role Phone Ilya Gusman MD Primary Care Provider [phone] Encounter Details Date Type Department Care Team (Late Contact Info) Description 10/24/2023 Scanned Document [facility] - Health Information Department [address] [place] [address] Scan, No Provider Available [address] [place] [address] [place] [address] <No scans attached> Social History Tobacco [...] Upcoming Encounters Date Type Department Care Team ([facility] Contact Info) Description 10/10/2025 10:30 AM EST Office Visit [facility] - Internal Medicine [address] [place] [phone] Ilya Gusman MD [address] [place] [phone] Christophe Dailey MD [address] [place] [address] [phone] 01/18/2026 1:00 PM EST Office Visit [facility] [address] [place] [address] Porsha Marsh, REPAIR SUPERVISOR [address] [place] [address] 02/22/2026 11:00 AM EDT Office Visit [facility] [address] [place] [address] [address] [place] [phone] Alonso Bae MD [address] [place] [address] [address] [place] [address] 07/17/2026 2:00 PM EDT Office Visit [facility] - Internal Medicine [address] [place] [phone] Ilya Gusman MD [address] [place] [phone] 07/19/2026 11:40 AM EDT Office Visit [facility] [address] [place] [address] Yesi Perez MD [address] [place] [address] documented as of this encounter Visit Diagnoses [...] documented as of this encounter Care Teams Project Consultant Relationship Specialty Start Date End Date Ilya Gusman MD [address] [place] [phone] PCP - General 05/14/17 [facility] 09/01/25 documented as of this encounter
--- OUTSIDE RECORDS SUMMARY | 2025-10-06 22:23 | XMS_ITS | Encounter Summary ---
Author Organization [facility] ystem Address [address] [place] [address] Phone Care Team Providers Care Location Manager Name Role Phone Ilya Gusman MD Primary Care Provider [phone] Encounter Details Date Type Department Care Team (Late Contact Info) Description 01/15/2021 Scanned Document [facility] - Health Information Department [address] [place], [place] [phone] Scan, No Provider Available [address] [place] [address] [place] [address] <No scans attached> Social History Tobacco Use [...] 10:30 AM EST Office Visit [facility] - Internal Medicine [address] [place] [phone] Ilya Gusman MD [address] [place] [phone] Christophe Dailey MD [address] [place] [phone] 01/18/2026 1:00 PM EST Office Visit [facility] [address] [place] [address] Porsha Marsh, MARILIA [address] [place] [address] 02/22/2026 11:00 AM EDT Office Visit [facility] [address] [place] [address] [address] [place] [address] Alonso Bae MD [address] [place] [address] [address] [place] [address] 07/17/2026 2:00 PM EDT Office Visit [facility] - Internal Medicine [address] [place] [phone] Ilya Gusman MD [address] [place] [phone] 07/19/2026 11:40 AM EDT Office Visit [facility] [address] [place] [address] Yesi Perez MD [address] [place] [address] documented as of this encounter Visit Diagnoses [...] documented as of this encounter Care Teams Location Manager Relationship Specialty Start Date End Date Ilya Gusman MD [address] [place] [address] [phone] PCP - General 05/14/17 [facility] 09/01/25 documented as of this encounter
--- OUTSIDE RECORDS SUMMARY | 2025-10-06 22:23 | XMS_ITS | Encounter Summary ---
Author Organization [facility] ystem Address [address] [place] [address] Phone Care Team Providers Care Tare Man Name Role Phone Ilya Gusman MD Primary Care Provider [phone] Reason for Visit * Reason Comments Med Refill Encounter Details Date Type Department Care Team (Late st Contact Info) Description 08/01/[address] [place] [phone] Franklin Davis MD 55 [place] [address] Med Refill Social History Tobacco Use Types [...] [facility] - Internal Medicine [address] [place] [phone] Ilya Gusman MD [address] [place] [phone] Christophe Dailey MD [address] [place] [phone] 01/18/2026 1:00 PM EST Office Visit [facility] [address] [place] [address] Porsha Marsh, REFINING SUPERVISOR [address] [place] [address] 02/22/2026 11:00 AM EDT Office Visit [facility] [address] [place] [address] [address] [place] [phone] Alonso Bae MD [address] [place] [address] [address] [place] [address] 07/17/2026 2:00 PM EDT Office Visit [facility] - Internal Medicine [address] [place] [phone] Ilya Gusman MD [address] [place] [phone] 07/19/2026 11:40 AM EDT Office Visit [facility] [address] [place] [address] Yesi Perez MD 70 [place] [address] documented as of this encounter Visit Diagnoses [...] documented as of this encounter Care Teams Tare Man Relationship Specialty Start Date End Date Ilya Gusman MD [address] [place] [phone] PCP - General 05/14/17 [facility] 09/01/25 documented as of this encounter
--- OUTSIDE RECORDS SUMMARY | 2025-10-06 22:23 | XMS_ITS | Encounter Summary ---
Author Organization [facility] Address [address] [place] [address] Phone Care Team Providers Care Risk Analyst Name Role Phone Ilya Gusman MD Primary Care Provider [phone] Reason for Visit * Reason Onset Date Comments Med Refill 01/30/2021 Encounter Details Date Type Department Care Team (Late st Contact Info) Description 01/30/2021 Refill [facility] - Internal Medicine [address] [place] [address] [phone] Christophe Dailey MD [address] [place] [phone] Med Refill Social History Tobacco Use [...] Description 10/10/2025 10:30 AM EST Office Visit [facility] - Internal Medicine [address] [place] [phone] Ilya Gusman MD [address] [place] [phone] Christophe Dailey MD [address] [place] [phone] 01/18/2026 1:00 PM EST Office Visit [facility] [address] [place] [address] Porsha Marsh, FOREST MANAGEMENT PROFESSOR 70 [place] [address] 02/22/2026 11:00 AM EDT Office Visit [facility] [address] [place] [address] [address] [place] [phone] Alonso Bae MD [address] [place] [address] [address] [place] [address] 07/17/2026 2:00 PM EDT Office Visit [facility] - Internal Medicine [address] [place] [phone] Ilya Gusman MD [address] [place] [phone] 07/19/2026 11:40 AM EDT Office Visit [facility] [address] [address] Yesi Perez MD [address] [place] [address] documented as of this encounter Visit Diagnoses [...] documented as of this encounter Care Teams Risk Analyst Relationship Specialty Start Date End Date Ilya Gusman MD [address] [place] [phone] PCP - General 05/14/17 [facility] 09/01/25 documented as of this encounter
--- OUTSIDE RECORDS SUMMARY | 2025-10-06 22:24 | XMS_ITS | Encounter Summary ---
Author Organization [facility] ystem Address [address] [place] [address] Phone Care Team Providers Care Mirror Inspector Name Role Phone Ilya Gusman MD Primary Care Provider [phone] Encounter Details Date Type Department Care Team ([facility] Contact Info) Description 09/01/2023 Orders Only [facility] - Health Information Department [address] [place] [address] Scan, No Provider Available [address] [place] [address] Dr. Eleazar [place] [id number] Social History Tobacco Use Types Packs/Day Years [...] Upcoming Encounters Date Type Department Care Team ([facility] Contact Info) Description 10/10/2025 10:30 AM EST Office Visit [facility] - Internal Medicine [address] [place] [phone] Ilya Gusman MD [address] [place] [phone] Christophe Dailey MD [address] [place] [phone] 01/18/2026 1:00 PM EST Office Visit [facility] [address] [place] [address] Porsha Marsh, FRONT END SOFTWARE DEVELOPER [address] [place] [address] [phone] 02/22/2026 11:00 AM EDT Office Visit [facility] [address] [place] [address] [address] [place] [phone] Alonso Bae MD [address] [place] [address] [address] [place] [address] 07/17/2026 2:00 PM EDT Office Visit [facility] - Internal Medicine [address] [place] [phone] Ilya Gusman MD [address] [place] [phone] 07/19/2026 11:40 AM EDT Office Visit [facility] [address] [place] [address] Yesi Perez MD [address] [place] [address] documented as of this encounter Procedures Procedure Name Priority Date/Time Associated Diagnosis Comments MR INO COX Routine 08/24/2023 documented in this encounter [...] documented as of this encounter Care Teams Mirror Inspector Relationship Specialty Start Date End Date Ilya Gusman MD [address] [place] [address] [phone] PCP - General 05/14/17 [facility] 09/01/25 documented as of this encounter
--- OUTSIDE RECORDS SUMMARY | 2025-10-06 22:24 | XMS_ITS | Encounter Summary ---
Author Organization [facility] Address [address] [place] [address] Phone Care Team Providers Care Cloth Edge Singer Name Role Phone Ilya Gusman MD Primary Care Provider [phone] Reason for Visit * Reason Comments Med Refill Encounter Details Date Type Department Care Team (Late Contact Info) Description 06/23/2023 Refill [facility] - Internal Medicine [address] [place] [phone] Lilliam Dejesus, BILINGUAL BRANCH MANAGER [address] [place], [place] [phone] Med Refill Social History Tobacco Use Types [...] [facility] [address] [place] [phone] Ilya Gusman MD [address] [place] [phone] Christophe Dailey MD [address] [place] [phone] 01/18/2026 1:00 PM EST Office Visit [facility] [address] [place] [address] Porsha Marsh CNP [address] [place] [address] 02/22/2026 11:00 AM EDT Office Visit [facility] [address] [place] [address] [address] [place] [phone] Alonso Bae MD [address] [place] [address] [address] [place] [address] 07/17/2026 2:00 PM EDT Office Visit [facility] - Internal Medicine [address] [place] [phone] Ilya Gusman MD [address] [place] [phone] 07/19/2026 11:40 AM EDT Office Visit [facility] [address] [place] [address] Yesi Perez MD [address] [place] [address] documented as of this encounter Visit Diagnoses [...] as of this encounter Care Teams Cloth Edge Singer Relationship Specialty Start Date End Date Ilya Gusman MD [address] [place] [address] [phone] PCP - General 05/14/17 [facility] 09/01/25 documented as of this encounter
--- OUTSIDE RECORDS SUMMARY | 2025-10-06 22:24 | XMS_ITS | Encounter Summary ---
Author Organization [facility] ystem Address [address] [place] [address] Phone Care Team Providers Care Armature Bander Name Role Phone Ilya Gusman MD Primary Care Provider [phone] Encounter Details Date Type Department Care Team (Late Contact Info) Description 06/03/2023 Scanned Document [facility] - Health Information Department [address] [place] [phone] Scan, No Provider Available [address] [place] [address] [place] [address] <No scans attached> Social History Tobacco Use [...] Encounters Date Type Department Care Team ([facility] Contact Info) Description 10/10/2025 10:30 AM EST Office Visit [facility] - Internal Medicine [address] [place] [phone] Ilya Gusman MD [address] [place] [phone] Christophe Dailey MD [address] [place] [address] [phone] 01/18/2026 1:00 PM EST Office Visit [facility] [address] [place] [address] Porsha Marsh, BOILER CONTROL ROOM OPERATOR [address] [place] [address] 02/22/2026 11:00 AM EDT Office Visit [facility] [address] [place] [address] [address] [place] [phone] Alonso Bae MD [address] [place] [address] [address] [place] [address] 07/17/2026 2:00 PM EDT Office Visit [facility] - Internal Medicine [address] [place] [phone] Ilya Gusman MD [address] [place] [phone] 07/19/2026 11:40 AM EDT Office Visit [facility] [address] [place] [address] Yesi Perez MD [address] [place] [address] documented as of this encounter Visit Diagnoses [...] documented as of this encounter Care Teams Armature Bander Relationship Specialty Start Date End Date Ilya Gusman MD [address] [place] [phone] PCP - General 05/14/17 [facility] 09/01/25 documented as of this encounter
--- OUTSIDE RECORDS SUMMARY | 2025-10-06 22:24 | XMS_ITS | Encounter Summary ---
Author Organization [facility] ystem Address [address] [place] [address] Phone Care Team Providers Care Loom Setter Fourdrinier Name Role Phone Ilya Gusman MD Primary Care Provider Encounter Details Date Type Department Care Team (Late st Contact Info) Description 03/26/2023 Orders Only [facility] - Health Information Department [address] [facility] [address] Scan, No Provider Available [address] [facility] [address] Social History Tobacco Use Types Packs/Day Years [...] [facility] - Internal Medicine [address] [place] [phone] Ilya Gusman MD [address] [place] [phone] Christophe Dailey MD [address] [place] [phone] 01/18/2026 1:00 PM EST Office Visit [facility] [address] [place] [address] Porsha Marsh, ASSISTANT COMMISSIONER [address] [place] [address] 02/22/2026 11:00 AM EDT Office Visit [facility] [address] [place] [address] [address] [place] [address] Alonso Bae MD [address] [place] [address] [address] [place] [address] 07/17/2026 2:00 PM EDT Office Visit [facility] - Internal Medicine [address] [place] [phone] Ilya Gusman MD [address] [place] [phone] 07/19/2026 11:40 AM EDT Office Visit [facility] [address] [place] [address] Yesi Perez MD [address] [place] [address] documented as of this encounter Procedures Procedure [...] documented as of this encounter Care Teams Loom Setter Fourdrinier Relationship Specialty Start Date End Date Ilya Gusman MD [address] [place] [address] [phone] PCP - General 05/14/17 [facility] 09/01/25 documented as of this encounter
--- OUTSIDE RECORDS SUMMARY | 2025-10-06 22:24 | XMS_ITS | Encounter Summary ---
Author Organization [facility] ystem Address [address] [place] [address] Phone Care Team Providers Care Drupal Php Developer Name Role Phone Ilya Gusman MD Primary Care Provider Encounter Details Date Type Department Care Team (Late Contact Info) Description 08/02/2023 Scanned Document [facility] - Health Information Department [address] [place] [address] Scan, No Provider Available [address] [place] [address] [place] [address] <No scans attached> Social History Tobacco Use [...] Team ([facility] Contact Info) Description 10/10/2025 10:30 AM EST Office Visit [facility] - Internal Medicine [address] [place] [phone] Ilya Gusman MD [address] [place] [phone] Christophe Dailey MD [address] [place] [address] [phone] 01/18/2026 1:00 PM EST Office Visit [facility] [address] [place] [address] Porsha Marsh, BUSINESS INTEGRATION MANAGER [address] [place] [address] 02/22/2026 11:00 AM EDT Office Visit [facility] [address] [place] [address] [address] [place] [phone] Alonso Bae MD [address] [place] [address] [address] [place] [address] 07/17/2026 2:00 PM EDT Office Visit [facility] - Internal Medicine [address] [place] [phone] Ilya Gusman MD [address] [place] [phone] 07/19/2026 11:40 AM EDT Office Visit [facility] [address] [place] [address] Yesi Perez MD [address] [place] [address] documented as of this encounter Visit Diagnoses [...] documented as of this encounter Care Teams Drupal Php Developer Relationship Specialty Start Date End Date Ilya Gusman MD [address] [place] [phone] PCP - General 05/14/17 [facility] 09/01/25 documented as of this encounter
--- OUTSIDE RECORDS SUMMARY | 2025-10-06 22:24 | XMS_ITS | Encounter Summary ---
Author Organization [facility] ystem Address [address] [place] [address] Phone Care Team Providers Care Supervisor Steffen House Name Role Phone Ilya Gusman MD Primary Care Provider [phone] Encounter Details Date Type Department Care Team ([facility] Contact Info) Description 08/05/2023 Orders Only [facility] - Health Information Department [address] [place] [address] Scan, No Provider Available [address] [place] [address] Dr. Eleazar [place] [id number] Social History Tobacco Use Types Packs/Day Years [...] [facility] Contact Info) Description 10/10/2025 10:30 AM EST Office Visit [facility] - Internal Medicine [address] [place] [phone] Ilya Gusman MD [address] [place] [phone] Christophe Dailey MD [address] [place] [phone] 01/18/2026 1:00 PM EST Office Visit [facility] [address] [place] [address] Porsha Marsh, SPREAD CUTTER [address] [place] [address] 02/22/2026 11:00 AM EDT Office Visit [facility] [address] [place] [address] [address] [place] [phone] Alonso Bae MD [address] [place] [address] [address] [place] [address] 07/17/2026 2:00 PM EDT Office Visit [facility] - Internal Medicine [address] [place] [phone] Ilya Gusman MD [address] [place] [phone] 07/19/2026 11:40 AM EDT Office Visit [address] [address] Yesi Perez MD [address] [place] [address] documented as of this encounter Procedures Procedure [...] as of this encounter Care Teams Supervisor Steffen House Relationship Specialty Start Date End Date Ilya Gusman MD [address] [place] [phone] PCP - General 05/14/17 [facility] 09/01/25 documented as of this encounter
--- OUTSIDE RECORDS SUMMARY | 2025-10-06 22:24 | XMS_ITS | Encounter Summary ---
Author Organization [facility] Address [address] [place] [address] Phone Care Team Providers Care Monogram Technician Name Role Phone Ilya Gusman MD Primary Care Provider [phone] Reason for Visit * Reason Onset Date Comments Med Refill 08/01/2023 Encounter Details Date Type Department Care Team (Late st Contact Info) Description 08/01/2023 Refill [facility] - Internal Medicine [address] [place] [address] [phone] Ilya Gusman MD [address] [place] [phone] Med Refill Social History Tobacco Use [...] 10/10/2025 10:30 AM EST Office Visit [facility] - Internal Medicine [address] [place] [phone] Ilya Gusman MD [address] [place] [address] [phone] Christophe Dailey MD [address] [place] [address] [phone] 01/18/2026 1:00 PM EST Office Visit [facility] 70 [facility] 1 [place] [address] Porsha Marsh, GEOGRAPHICAL HISTORIAN 70 [place] [address] 02/22/2026 11:00 AM EDT Office Visit [facility] [address] [place] [address] [address] [place] [phone] Alonso Bae MD [address] [place] [address] [address] [place] [address] 07/17/2026 2:00 PM EDT Office Visit [facility] - Internal Medicine [address] [place] [phone] Ilya Gusman MD [address] [place] [address] [phone] 07/19/2026 11:40 AM EDT Office Visit [facility] [address] [address] Yesi Perez MD 70 [place] [address] documented as of this encounter Visit Diagnoses [...] documented as of this encounter Care Teams Monogram Technician Relationship Specialty Start Date End Date Ilya Gusman MD [address] [place] [phone] PCP - General 05/14/17 [facility] 09/01/25 documented as of this encounter
--- OUTSIDE RECORDS SUMMARY | 2025-10-06 22:24 | XMS_ITS | Encounter Summary ---
Author Organization [facility] Address [address] [place] [address] Phone Care Team Providers Care Circular Knitter Helper Name Role Phone Ilya Gusman MD Primary Care Provider [phone] Reason for Visit * Reason Onset Date Comments Med Refill 06/27/2023 Encounter Details Date Type Department Care Team ([facility] Contact Info) Description 06/27/2023 Refill [facility] - [facility] Medicine [address] [place] [address] [phone] Ilya Gusman MD [address] [place] [phone] Med Refill Social History Tobacco Use [...] 10/10/2025 10:30 AM EST Office Visit [facility] - Internal Medicine [address] [place] [phone] Ilya Gusman MD [address] [place] [address] [phone] Christophe Dailey MD [address] [place] [phone] 01/18/2026 1:00 PM EST Office Visit [facility] [address] [place] [phone] Porsha Marsh, MANAGER HYDRAULIC [address] [place] [address] 02/22/2026 11:00 AM EDT Office Visit [facility] [address] [place] [address] [address] [place] [phone] Alonso Bae MD [address] [place] [address] 2 [place] [address] 07/17/2026 2:00 PM EDT Office Visit [facility] - Internal Medicine [address] [place] [phone] Ilya Gusman MD [address] [place] [phone] 07/19/2026 11:40 AM EDT Office Visit [facility] [address] [place] [address] Yesi Perez MD [address] [place] [address] documented as of this encounter Visit [...] documented as of this encounter Care Teams Circular Knitter Helper Relationship Specialty Start Date End Date Ilya Gusman MD [address] [place] [phone] PCP - General 05/14/17 [facility] 09/01/25 documented as of this encounter
--- OUTSIDE RECORDS SUMMARY | 2025-10-06 22:24 | XMS_ITS | Encounter Summary ---
Author Organization [facility] Address [address] [place] [address] Phone Care Team Providers Care Loom Fixer Supervisor Name Role Phone Ilya Gusman MD Primary Care Provider [phone] Reason for Visit * Reason Onset Date Comments Med Refill 05/29/2023 Encounter Details Date Type Department Care Team ([facility] Contact Info) Description 05/29/2023 Refill [facility] - Internal Medicine [address] [place] [phone] Ilya Gusman MD [address] [place] [phone] Med Refill Social History Tobacco Use [...] 10:30 AM EST Office Visit [facility] - Internal Medicine [address] [place] [place] [phone] Ilya Gusman MD [address] [place] [phone] Christophe Dailey MD [address] [place] [phone] 01/18/2026 1:00 PM EST Office Visit [facility] [address] [place] [address] Porsha Marsh, [address] [address] 02/22/2026 11:00 AM EDT Office Visit [facility] [address] [place] [address] [address] [place] [address] Alonso Bae MD [address] [place] [address] [address] [place] [address] 07/17/2026 2:00 PM EDT Office Visit [facility] - Internal Medicine [address] [place] [phone] Ilya Gusman MD [address] [place] [phone] 07/19/2026 11:40 AM EDT Office Visit [facility] [address] [place] [address] Yesi Perez MD [address] [place] [address] documented as of this encounter Visit Diagnoses [...] as of this encounter Care Teams Loom Fixer Supervisor Relationship Specialty Start Date End Date Ilya Gusman MD [address] [place] [phone] PCP - General 05/14/17 [facility] 09/01/25 documented as of this encounter
--- OUTSIDE RECORDS SUMMARY | 2025-10-06 22:24 | XMS_ITS | Encounter Summary ---
Author Organization [facility] Address [address] [place] [address] Phone Care Team Providers Care Predatory Animal Hunter Name Role Phone Ilya Gusman MD Primary Care Provider [phone] Reason for Visit * Reason Onset Date Comments Med Refill 07/18/2023 Encounter Details Date Type Department Care Team (Late st Contact Info) Description 07/18/2023 Refill [facility] - Internal Medicine [address] [place] [address] [phone] Ilya Gusman MD [address] [place] [phone] Med Refill Social History Tobacco Use [...] Visit [facility] - Internal Medicine [address] [place] [phone] Ilya Gusman MD [address] [place] [phone] Christophe Dailey MD [address] [place] [address] [phone] 01/18/2026 1:00 PM EST Office Visit [facility] 70 [facility] 1 [place] [address] Porsha Marsh, DOOR PERSON 70 [place] [address] 02/22/2026 11:00 AM EDT Office Visit [facility] [address] [place] [address] [address] [place] [phone] Alonso Bae MD [address] [place] [address] [address] [place] [address] 07/17/2026 2:00 PM EDT Office Visit [facility] - Internal Medicine [address] [place] [phone] Ilya Gusman MD [address] [place] [phone] 07/19/2026 11:40 AM EDT Office Visit [facility] [address] [address] Yesi Perez MD 70 [place] [address] documented as of this encounter Visit Diagnoses [...] documented as of this encounter Care Teams Predatory Animal Hunter Relationship Specialty Start Date End Date Ilya Gusman MD [address] [place] [phone] PCP - General 05/14/17 [facility] 09/01/25 documented as of this encounter
--- OUTSIDE RECORDS SUMMARY | 2025-10-06 22:24 | XMS_ITS | Encounter Summary ---
Author Organization [facility] Address [address] [place] [address] Phone Care Team Providers Care Clinical Recruiter Name Role Phone Ilya Gusman MD Primary Care Provider [phone] Encounter Details Date Type Department Care Team (Late Contact Info) Description 01/02/2021 Scanned Document [facility] - Health Information Department [address] [place], [place] [phone] Scan, No Provider Available [address] [place] [address] [place] [address] <No scans attached> Social History Tobacco Use [...] 10/10/2025 10:30 AM EST Office Visit [facility] - Internal Medicine [address] [place] [phone] Ilya Gusman MD [address] [place] [phone] Christophe Dailey MD [address] [place] [phone] 01/18/2026 1:00 PM EST Office Visit [facility] [address] [place] [address] Porsha Marsh, MARILIA [address] [place] [address] 02/22/2026 11:00 AM EDT Office Visit [facility] [address] [place] [address] [address] [place] [address] Alonso Bae MD [address] [place] [address] [address] [place] [address] 07/17/2026 2:00 PM EDT Office Visit [facility] - Internal Medicine [address] [place] [address] [phone] Ilya Gusman MD [address] [place] [phone] 07/19/2026 11:40 AM EDT Office Visit [facility] [address] [place] [address] Yesi Perez MD [address] [place] [address] documented as of this encounter Visit Diagnoses [...] as of this encounter Care Teams Clinical Recruiter Relationship Specialty Start Date End Date Ilya Gusman MD [address] [place] [address] [phone] PCP - General 05/14/17 [facility] 09/01/25 documented as of this encounter
--- OUTSIDE RECORDS SUMMARY | 2025-10-06 22:24 | XMS_ITS | Encounter Summary ---
Author Organization [facility] Address [address] [place] [address] Phone Care Team Providers Care Tar Distillation Supervisor Name Role Phone Ilya Gsuman MD Primary Care Provider [phone] Encounter Details Date Type Department Care Team (Late Contact Info) Description 01/05/2021 Orders Only [facility] - Health Information Department 143 [place] [address] Scan, No Provider Available [address] [facility] [place] [address] Social History Tobacco Use Types Packs/Day Years [...] 10:30 AM EST Office Visit [facility] - Internal Medicine [address] [place] [phone] Ilya Gusman MD [address] [place] [phone] Christophe Dailey MD [address] [place] [phone] 01/18/2026 1:00 PM EST Office Visit [facility] [address] [place] [address] Porsha Marsh, MARILIA [address] [place] [address] 02/22/2026 11:00 AM EDT Office Visit [facility] [address] [place] [address] [address] [place] [phone] Alonso Bae MD [address] [place] [address] [address] [place] [address] 07/17/2026 2:00 PM EDT Office Visit [facility] - Internal Medicine [address] [place] [phone] Ilya Gusman MD [address] [place] [phone] 07/19/2026 11:40 AM EDT Office Visit [facility] [address] [place] [address] Yesi Perez MD [address] [place] [address] documented as of this encounter Procedures Procedure [...] documented as of this encounter Care Teams Tar Distillation Supervisor Relationship Specialty Start Date End Date Ilya Gusman MD [address] [place] [phone] PCP - General 05/14/17 [facility] 09/01/25 documented as of this encounter
--- OUTSIDE RECORDS SUMMARY | 2025-10-06 22:24 | XMS_ITS | Encounter Summary ---
Author Organization [facility] Address [address] [place] [address] Phone Care Team Providers Care Canned Food Reconditioning Inspector Name Role Phone Ilya Gusman MD Primary Care Provider [phone] Encounter Details Date Type Department Care Team ([facility] Contact Info) Description 08/14/2023 Orders Only [facility] - Health Information Department [address] [place] [address] Scan, No Provider Available [address] [place] [address] Dr. Eleazar [place] [phone] Social History Tobacco Use Types Packs/Day Years [...] Upcoming Encounters Date Type Department Care Team ([facility] Contact Info) Description 10/10/2025 10:30 AM EST Office Visit [facility] - Internal Medicine [address] [place] [phone] Ilya Gusman MD [address] [place] [phone] Christophe Dailey MD [address] [place] [phone] 01/18/2026 1:00 PM EST Office Visit [facility] [address] [place] [address] Porsha Marsh, STANDARD MACHINE STITCHER [address] [place] [address] [phone] 02/22/2026 11:00 AM EDT Office Visit [facility] [address] [place] [address] [address] [place] [phone] Alonso Bae MD [address] [place] [address] [address] [place] [address] 07/17/2026 2:00 PM EDT Office Visit [facility] - Internal Medicine [address] [place] [phone] Ilya Gusman MD [address] [place] [phone] 07/19/2026 11:40 AM EDT Office Visit [facility] [address] [place] [address] Yesi Perez MD [address] [place] [address] documented as of this encounter Procedures Procedure [...] documented as of this encounter Care Teams Canned Food Reconditioning Inspector Relationship Specialty Start Date End Date Ilya Gusman MD [address] [place] [address] [phone] PCP - General 05/14/17 [facility] 09/01/25 documented as of this encounter
--- OUTSIDE RECORDS SUMMARY | 2025-10-06 22:24 | XMS_ITS | Encounter Summary ---
Author Organization [facility] Address [address] [place] [address] Phone Care Team Providers Care Escalator Mechanic Name Role Phone Ilya Gusman MD Primary Care Provider [phone] Reason for Visit * Reason Onset Date Comments Med Refill 07/07/2023 Encounter Details Date Type Department Care Team ([facility] Contact Info) Description 07/07/2023 Refill [facility] - Internal Medicine [address] [place] [address] [phone] Christophe Dailey MD [address] [place] [phone] Med Refill Social History Tobacco Use [...] Visit [facility] - Internal Medicine [address] [place] [phone] Ilya Gusman MD [address] [place] [phone] Christophe Dailey MD [address] [place] [phone] 01/18/2026 1:00 PM EST Office Visit [facility] [address] [place] [address] Porsha Masrh, [address] [address] 02/22/2026 11:00 AM EDT Office Visit [facility] [address] [place] [address] [address] [place] [phone] Alonso Bae MD [address] [place] [address] [address] [place] [address] 07/17/2026 2:00 PM EDT Office Visit [facility] - Internal Medicine [address] [place] [phone] Ilya Gusman MD [address] [place] [phone] 07/19/2026 11:40 AM EDT Office Visit [facility] [address] [place] [address] Yesi Perez MD [address] [place] [address] documented as of this encounter Visit Diagnoses [...] documented as of this encounter Care Teams Escalator Mechanic Relationship Specialty Start Date End Date Ilya Gusman MD [address] [place] [address] [phone] PCP - General 05/14/17 [facility] 09/01/25 documented as of this encounter
--- OUTSIDE RECORDS SUMMARY | 2025-10-06 22:24 | XMS_ITS | Encounter Summary ---
Author Organization [facility] Address [address] [place] [address] Phone Care Team Providers Care Linux Security Administrator Name Role Phone Ilya Gusman MD Primary Care Provider [phone] Encounter Details Date Type Department Care Team (Late Contact Info) Description 01/02/2021 Scanned Document [facility] - Health Information Department 143 [place], [place] [phone] Scan, No Provider Available [address] [place] [address] [place] [address] <No scans attached> Social History Tobacco Use [...] Description 10/10/2025 10:30 AM EST [facility] - Internal Medicine [address] [place] [phone] Ilya Gusman MD [address] [place] [phone] Christophe Dailey MD [address] [place] [phone] 01/18/2026 1:00 PM EST Office Visit [facility] [address] [place] [address] Porsha Marsh, MARILIA [address] [place] [address] 02/22/2026 11:00 AM EDT Office Visit [facility] [address] [place] [address] [address] [place] [phone] Alonso Bae MD [address] [place] [address] [address] [place] [address] 07/17/2026 2:00 PM EDT Office [facility] Medicine [address] [place] [address] [phone] Ilya Gusman MD [address] [place] [phone] 07/19/2026 11:40 AM EDT Office Visit [facility] [address] [place] [address] Yesi Perez MD [address] [place] [address] documented as of this encounter Visit Diagnoses [...] as of this encounter Care Teams Linux Security Administrator Relationship Specialty Start Date End Date Ilya Gusman MD [address] [place] [address] [phone] PCP - General 05/14/17 [facility] 09/01/25 documented as of this encounter
--- OUTSIDE RECORDS SUMMARY | 2025-10-06 22:24 | XMS_ITS | Encounter Summary ---
Author Organization [facility] Address [address] [place] [address] Phone Care Team Providers Care Lead Java Programmer Name Role Phone Ilya Gusman MD Primary Care Provider [phone] Reason for Visit * Reason Comments Med Refill Encounter Details Date Type Department Care Team ([facility] Contact Info) Description 03/31/2023 Refill [facility] - Internal Medicine [address] [place] [address] [phone] Lilliam Dejesus, OPTICAL ENGINEER [address] [place], [place] [phone] Med Refill Social History Tobacco Use Types [...] 10/10/2025 10:30 AM EST Office Visit [facility] - Internal Medicine [address] [place] [phone] Ilya Gusman MD [address] [place] [phone] Christophe Dailey MD [address] [place] [phone] 01/18/2026 1:00 PM EST Office Visit [facility] [address] [place] [address] Porsha Marsh, COBBLER MCKAY [address] [place] [address] 02/22/2026 11:00 AM EDT Office Visit [facility] [address] [place] [address] [address] [place] [phone] Alonso Bae MD [address] [place] [address] [address] [place] [address] 07/17/2026 2:00 PM EDT Office Visit [facility] - Internal Medicine [address] [place] [phone] Ilya Gusman MD [address] [place] [phone] 07/19/2026 11:40 AM EDT Office Visit [facility] [address] [place] [address] Yesi Perez MD [address] [place] [address] documented as of this encounter Visit Diagnoses [...] as of this encounter Care Teams Lead Java Programmer Relationship Specialty Start Date End Date Ilya Gusman MD [address] [place] [phone] PCP - General 05/14/17 [facility] 09/01/25 documented as of this encounter
--- OUTSIDE RECORDS SUMMARY | 2025-10-06 22:24 | XMS_ITS | Encounter Summary ---
Author Organization [facility] Address [address] [place] [address] Phone Care Team Providers Care Out And Out Cigar Maker Hand Name Role Phone Ilya Gusman MD Primary Care Provider [phone] Encounter Details Date Type Department Care Team (Late Contact Info) Description 01/01/2021 Scanned Document [facility] - Health Information Department 143 [place], [place] [phone] Scan, No Provider Available [address] [place] [address] [place] [address] <No scans attached> Social History Tobacco Use [...] Visit [facility] - Internal Medicine [address] [place] [phone] Ilya Gusman MD [address] [place] [phone] Christophe Dailey MD [address] [place] [phone] 01/18/2026 1:00 PM EST Office Visit [facility] [address] [place] [address] Porsha Marsh, MARILIA [address] [place] [address] 02/22/2026 11:00 AM EDT Office Visit [facility] [address] [place] [address] [address] [place] [address] Alonso Bae MD [address] [place] [address] [address] [place] [address] 07/17/2026 2:00 PM EDT Office Visit [facility] - Internal Medicine [address] [place] [address] [phone] Ilya Gusman MD [address] [place] [phone] 07/19/2026 11:40 AM EDT Office Visit [facility] [address] [place] [address] Yesi Perez MD [address] [place] [address] 137[address] documented as of this encounter Visit Diagnoses [...] documented as of this encounter Care Teams Out And Out Cigar Maker Hand Relationship Specialty Start Date End Date Ilya Gusman MD [address] [place] [address] [phone] PCP - General 05/14/17 [facility] 09/01/25 documented as of this encounter
--- OUTSIDE RECORDS SUMMARY | 2025-10-06 22:24 | XMS_ITS | Encounter Summary ---
Author Organization [facility] Address [address] [place] [address] Phone Care Team Providers Care Outsole Molder Name Role Phone Ilya Gusman MD Primary Care Provider [phone] Reason for Visit * Reason Onset Date Comments Med Refill 06/06/2023 Encounter Details Date Type Department Care Team (Late st Contact Info) Description 06/06/2023 Refill [facility] - Internal Medicine [address] [place] [address] [phone] Christophe Dailey MD [address] [place] [phone] Med Refill Social History Tobacco Use [...] 11:57 AM EDT Dilaudid qty 112 [facility]: [facility] DATE OF LAST REFILL? 05/26/23 FREQUENCY OF [...] PM Christophe Dailey MD LNG IM LNG SHOE CEMENTER reviewed on 06/06/2023 by RENUKA GALLEGOS MA and reviewed & no red flags were noted documented in this encounter Plan of Treatment Upcoming Encounters Date Type Department Care Team (Late st Contact Info) Description 10/10/2025 10:30 AM EST Office Visit [facility] - Internal Medicine [address] [place] [address] [phone] Ilya Gusman MD [address] [place] [address] [phone] Christophe Dailey MD [address] [place] [address] [phone] 01/18/2026 1:00 PM EST Office Visit [facility] 70 [facility] 1 [place] [address] Porsha Marsh, MARILIA 70 [place] [address] 02/22/2026 11:00 AM EDT Office Visit [facility] [address] [place] [address] [place] [phone] Alonso Bae MD [address] [facility] [address] [place] [address] 07/17/2026 2:00 PM EDT Office Visit [facility] - Internal Medicine 143 [place] [address] Ilya Gusman MD [address] [place] [phone] 07/19/2026 11:40 AM EDT Office Visit [facility] [address] [address] Yesi Perez MD 70 [place] [address] documented as of this encounter Visit Diagnoses [...] documented as of this encounter Care Teams Outsole Molder Relationship Specialty Start Date End Date Ilya Gusman MD [address] [place] [address] [phone] PCP - General 05/14/17 [facility] 09/01/25 documented as of this encounter
--- OUTSIDE RECORDS SUMMARY | 2025-10-06 22:24 | XMS_ITS | Encounter Summary ---
Author Organization [facility] Address [address] [place] [address] Phone Care Team Providers Care Java Web Engineer Name Role Phone Ilya Gusman MD Primary Care Provider [phone] Reason for Visit * Reason Onset Date Comments Med Refill 07/01/2023 Encounter Details Date Type Department Care Team (Late st Contact Info) Description 07/01/2023 Telephone [facility] - Internal Medicine [address] [place] [phone] Ilya Gusman MD [address] [place] [phone] Med Refill Social History Tobacco Use [...] [facility] - Internal Medicine [address] [place] [phone] Ilya Gusman MD [address] [place] [address] [phone] Christophe Dailey MD [address] [place] [address] [phone] 01/18/2026 1:00 PM EST Office Visit [facility] [address] [address] Porsha Marsh CNP 70 [place] [address] 02/22/2026 11:00 AM EDT Office Visit [facility] [address] [place] [address] [address] [place] [phone] Alonso Bae MD [address] [place] [address] [address] [place] [address] 07/17/2026 2:00 PM EDT Office Visit [facility] - Internal Medicine 143 [place] [address] Ilya Gusman MD [address] [place] [phone] 07/19/2026 11:40 AM EDT Office Visit [facility] [address] [address] Yesi Perez MD 70 [place] [address] documented as of this encounter Visit Diagnoses [...] documented as of this encounter Care Teams Java Web Engineer Relationship Specialty Start Date End Date Ilya Gusman MD [address] [place] [address] [phone] PCP - General 05/14/17 [facility] 09/01/25 documented as of this encounter
--- OUTSIDE RECORDS SUMMARY | 2025-10-06 22:24 | XMS_ITS | Encounter Summary ---
Author Organization [facility] Address [address] [place] [address] Phone Care Team Providers Care Livestock Brands Inspector Name Role Phone Ilya Gusman MD Primary Care Provider [phone] Reason for Visit * Reason Onset Date Comments Med Refill 04/13/2023 Encounter Details Date Type Department Care Team ([facility] Contact Info) Description 04/13/2023 Refill [facility] - Internal Medicine [address] [place] [address] [phone] Christophe Dailey MD [address] [place] [phone] Med Refill Social History Tobacco Use [...] [facility] Medicine [address] [place] [phone] Ilya Gusman MD [address] [place] [phone] Christophe Dailey MD [address] [place] [phone] 01/18/2026 1:00 PM EST Office Visit [facility] [address] [place] [address] Porsha Marsh, PRICING SUPERVISOR [address] [place] [address] 02/22/2026 11:00 AM EDT Office Visit [facility] [address] [place] [address] [address] [place] [phone] Alonso Bae MD [address] [place] [address] [address] [place] [address] 07/17/2026 2:00 PM EDT Office Visit [facility] - Internal Medicine [address] [place] [phone] Ilya Gusman MD [address] [place] [phone] 07/19/2026 11:40 AM EDT Office Visit [facility] [address] [place] [address] Yesi Perez MD 70 [place] [address] documented as of this encounter Visit Diagnoses [...] documented as of this encounter Care Teams Livestock Brands Inspector Relationship Specialty Start Date End Date Ilya Gusman MD [address] [place] [address] [phone] PCP - General 05/14/17 [facility] 09/01/25 documented as of this encounter
--- OUTSIDE RECORDS SUMMARY | 2025-10-06 22:24 | XMS_ITS | Encounter Summary ---
Author Organization [facility] Address [address] [place] [address] Phone Care Team Providers Care Worm Picker Name Role Phone Ilya Gusman MD Primary Care Provider [phone] Encounter Details Date Type Department Care Team (Late st Contact Info) Description 05/14/2023 Scanned Document [facility] - Health Information Department [address] [place], [place] [phone] Scan, No Provider Available [address] [place] [address] <No scans attached> Social History Tobacco Use [...] [facility] - Internal Medicine [address] [place] [phone] Ilya Gusman MD [address] [place] [phone] Christophe Dailey MD [address] [place] [address] [phone] 01/18/2026 1:00 PM EST Office Visit [facility] [address] [place] [address] Porsha Marsh, MARILIA [address] [place] [address] 02/22/2026 11:00 AM EDT Office Visit [facility] [address] [place] [address] [address] [place] [phone] Alonso Bae MD [address] [place] [address] [address] [place] [address] 07/17/2026 2:00 PM EDT Office Visit [facility] - Internal Medicine [address] [place] [phone] Ilya Gusman MD [address] [place] [phone] 07/19/2026 11:40 AM EDT Office Visit [facility] [address] [place] [address] Yesi Perez MD [address] [place] [address] documented as of this encounter Visit Diagnoses [...] documented as of this encounter Care Teams Worm Picker Relationship Specialty Start Date End Date Ilya Gusman MD [address] [place] [phone] PCP - General 05/14/17 [facility] 09/01/25 documented as of this encounter
--- OUTSIDE RECORDS SUMMARY | 2025-10-06 22:24 | XMS_ITS | Encounter Summary ---
Author Organization [facility] Address [address] [place] [address] Phone Care Team Providers Care Quarry Plant Crusher Operator Name Role Phone Ilya Gusman MD Primary Care Provider [phone] Reason for Visit * Reason Onset Date Comments Med Refill 06/09/2023 Encounter Details Date Type Department Care Team (Late Contact Info) Description 06/09/2023 Refill [facility] - Internal Medicine [address] [place] [address] [phone] Christophe Dailey MD [address] [place] [phone] Med Refill Social History Tobacco Use [...] Visit [facility] - Internal Medicine [address] [place] [phone] Ilya Gusman MD [address] [place] [phone] Christophe Dailey MD [address] [place] [address] [phone] 01/18/2026 1:00 PM EST Office Visit [facility] 70 [facility] 1 [place] [address] Porsha Marsh, SHIPPING SUPPORT CLERK 70 [place] [address] 02/22/2026 11:00 AM EDT Office Visit [facility] [address] [place] [address] [address] [place] [phone] Alonso Bae MD [address] [place] [address] [address] [place] [address] 07/17/2026 2:00 PM EDT Office Visit [facility] - Internal Medicine [address] [place] [phone] Ilya Gusman MD [address] [place] [phone] 07/19/2026 11:40 AM EDT Office Visit [facility] [address] [address] Yesi Perez MD 70 [place] [address] documented as of this encounter Visit Diagnoses [...] documented as of this encounter Care Teams Quarry Plant Crusher Operator Relationship Specialty Start Date End Date Ilya Gusman MD [address] [place] [address] [phone] PCP - General 05/14/17 [facility] 09/01/25 documented as of this encounter
--- OUTSIDE RECORDS SUMMARY | 2025-10-06 22:24 | XMS_ITS | Encounter Summary ---
Author Organization [facility] Address [address] [place] [address] Phone Care Team Providers Care Clinical Provider Trainer Name Role Phone Ilya Gusman MD Primary Care Provider [phone] Reason for Visit * Reason Onset Date Comments Med Refill 07/18/2023 Encounter Details Date Type Department Care Team ([facility] Contact Info) Description 07/18/2023 Refill [facility] - Internal Medicine [address] [place] [address] [phone] Mango Florez MD [address] [place] [address] [phone] Med Refill Social History Tobacco Use Types [...] Office Visit [facility] - Internal Medicine [address] [place] [phone] Ilya Gusman MD [address] [place] [phone] Christophe Dailey MD [address] [place] [phone] 01/18/2026 1:00 PM EST Office Visit [facility] [address] [place] [address] Porsha Marsh, LADLE REPAIRMAN [address] [place] [address] 02/22/2026 11:00 AM EDT Office Visit [facility] [address] [place] [address] [address] [place] [phone] Alonso Bae MD [address] [place] [address] [address] [place] [address] 07/17/2026 2:00 PM EDT Office Visit [facility] - Internal Medicine [address] [place] [phone] Ilya Gusman MD [address] [place] [phone] 07/19/2026 11:40 AM EDT Office Visit [facility] [address] [place] [address] 24[address] Yesi Perez MD [address] [place] [address] documented as of this encounter Visit Diagnoses [...] as of this encounter Care Teams Clinical Provider Trainer Relationship Specialty Start Date End Date Ilya Gusman MD [address] [place] [address] [phone] PCP - General 05/14/17 [facility] 09/01/25 documented as of this encounter
--- OUTSIDE RECORDS SUMMARY | 2025-10-06 22:24 | XMS_ITS | Encounter Summary ---
Author Organization [facility] Address [address] [place] [address] Phone Care Team Providers Care Sql Report Writer Name Role Phone Ilya Gusman MD Primary Care Provider [phone] Encounter Details Date Type Department Care Team (Late Contact Info) Description 01/05/2021 Orders Only [facility] - Health Information Department [address] [place] [address] Scan, No Provider Available [address] [facility] [place] [address] Social History Tobacco Use Types Packs/Day Years [...] [facility] - Internal Medicine [address] [place] [phone] Ilya Gusman MD [address] [place] [phone] Christophe Dailey MD [address] [place] [phone] 01/18/2026 1:00 PM EST Office Visit [facility] [address] [place] [address] Porsha Marsh CNP [address] [place] [address] 02/22/2026 11:00 AM EDT Office Visit [facility] [address] [place] [address] [address] [place] [phone] Alonso Bae MD [address] [place] [address] [address] [place] [address] 07/17/2026 2:00 PM EDT Office Visit [facility] - Internal Medicine [address] [place] [phone] Ilya Gusman MD [address] [place] [phone] 07/19/2026 11:40 AM EDT Office Visit [facility] [address] [place] [address] Yesi ePrez MD [address] [place] [address] documented as of this encounter Procedures [...] documented as of this encounter Care Teams Sql Report Writer Relationship Specialty Start Date End Date Ilya Gusman MD [address] [place] [phone] PCP - General 05/14/17 [facility] 09/01/25 documented as of this encounter
--- OUTSIDE RECORDS SUMMARY | 2025-10-06 22:24 | XMS_ITS | Encounter Summary ---
Author Organization [facility] Address [address] [place] [address] Phone Care Team Providers Care Patrol Conductor Name Role Phone Ilya Gusman MD Primary Care Provider [phone] Reason for Visit * Reason Onset Date Comments Med Refill 03/18/2023 Encounter Details Date Type Department Care Team ([facility] Contact Info) Description 03/18/2023 Refill [facility] - Internal Medicine [address] [place] [address] [phone] Ilya Gusman MD [address] [place] [phone] Med Refill Social History Tobacco Use [...] 10/10/2025 10:30 AM EST Office Visit [facility] - Internal Medicine [address] [place] [address] [phone] Ilya Gusman MD [address] [place] [address] [phone] Christophe Dailey MD [address] [place] [address] [phone] 01/18/2026 1:00 PM EST Office Visit [facility] 70 [facility] 1 [place] [address] Porsha Marsh, DIAMOND EXPERT [address] [place] [address] 02/22/2026 11:00 AM EDT Office Visit [facility] [address] [place] [address] [address] [place] [phone] Alonso Bae MD [address] [place] [address] [address] [place] [address] 07/17/2026 2:00 PM EDT Office Visit [facility] - Internal Medicine 143 [place] [phone] Ilya Gusman MD [address] [place] [phone] 07/19/2026 11:40 AM EDT Office Visit [facility] [address] [address] Yesi Perez MD 70 [place] [address] documented as of this encounter Visit Diagnoses [...] as of this encounter Care Teams Patrol Conductor Relationship Specialty Start Date End Date Ilya Gusman MD [address] [place] [phone] PCP - General 05/14/17 [facility] 09/01/25 documented as of this encounter
--- OUTSIDE RECORDS SUMMARY | 2025-10-06 22:25 | XMS_ITS | Encounter Summary ---
Author Organization [facility] ystem Address [address] [place] [address] Phone Care Team Providers Care Crime Laboratory Analyst Name Role Phone Ilya Gusman MD Primary Care Provider Encounter Details Date Type Department Care Team ([facility] Contact Info) Description 06/03/2024 Orders Only [facility] - Health Information Department [address] [place] [address] Scan, No Provider Available [address] [place] [address] Dr. [place] [phone] Social History Tobacco Use Types Packs/Day Years [...] Upcoming Encounters Date Type Department Care Team ([facility] Contact Info) Description 10/10/2025 10:30 AM EST Office Visit [facility] - Internal Medicine [address] [place] [phone] Ilya Gusman MD [address] [place] [phone] Christophe Dailey MD [address] [place] [phone] 01/18/2026 1:00 PM EST Office Visit [facility] [address] [place] [address] Porsha Marsh, INTELLIGENCE MANAGER [address] [place] [address] 02/22/2026 11:00 AM EDT Office Visit [facility] [address] [place] [address] [address] [place] [phone] Alonso Bae MD [address] [place] [address] [address] [place] [address] 07/17/2026 2:00 PM EDT Office Visit [facility] - Internal Medicine [address] [place] [phone] Ilya Gusman MD [address] [place] [phone] 07/19/2026 11:40 AM EDT Office Visit [facility] [address] [place] [address] 8[address] Yesi Perez MD [address] [place] [address] documented as of this encounter Procedures Procedure [...] documented as of this encounter Care Teams Crime Laboratory Analyst Relationship Specialty Start Date End Date Ilya Gusman MD [address] [place] [phone] PCP - General 05/14/17 [facility] 09/01/25 documented as of this encounter
--- OUTSIDE RECORDS SUMMARY | 2025-10-06 22:25 | XMS_ITS | Encounter Summary ---
Author Organization [facility] Address [address] [place] [address] Phone Care Team Providers Care Jumpbasting Armhole Baster Name Role Phone Ilya Gusman MD Primary Care Provider [phone] Encounter Details Date Type Department Care Team (Late st Contact Info) Description 07/29/2018 Procedure [facility] - Day Surgery 2 [place] [phone] Social History Tobacco Use Types Packs/Day Years [...] 10:30 AM EST Office Visit [facility] - Internal Medicine [address] [place] [phone] Ilya Gusman MD [address] [place] [phone] Christophe Dailey MD [address] [place] [phone] 01/18/2026 1:00 PM EST Office Visit [facility] 70 [facility] 1 [place] [address] Porsha Marsh, WOODWIND INSTRUMENTS INSPECTOR 70 [place] [address] 02/22/2026 11:00 AM EDT Office Visit [facility] [address] [place] [address] [address] [place] [phone] Alonso Bae MD [address] [place] [address] [address] [place] [address] 07/17/2026 2:00 PM EDT Office Visit [facility] - Internal Medicine [address] [place] [phone] Ilya Gusman MD [address] [place] [phone] 07/19/2026 11:40 AM EDT Office Visit [facility] [address] [place] [address] Yesi Perez MD [address] [place] [address] documented as of this encounter Visit Diagnoses [...] documented as of this encounter Care Teams Jumpbasting Armhole Baster Relationship Specialty Start Date End Date Ilya Gusman MD [address] [place] [phone] PCP - General 05/14/17 [facility] 09/01/25 documented as of this encounter
--- OUTSIDE RECORDS SUMMARY | 2025-10-06 22:25 | XMS_ITS | Encounter Summary ---
Author Organization [facility] ystem Address [address] [place] [address] Phone Care Team Providers Care Welder Metal Fab Name Role Phone Ilya Gusman MD Primary Care Provider [phone] Encounter Details Date Type Department Care Team (Late Contact Info) Description 10/29/2018 Scanned Document [facility] - Health Information Department [address] [place] [address] Scan, No Provider Available [address] [place] [address] [place] [address] <No scans attached> Social History Tobacco Use [...] Upcoming Encounters Date Type Department Care Team ([facility] Contact Info) Description 10/10/2025 10:30 AM EST Office Visit [facility] - Internal Medicine [address] [place] [phone] Ilya Gusman MD [address] [place] [phone] Christophe Dailey MD [address] [place] [phone] 01/18/2026 1:00 PM EST Office Visit [facility] [address] [place] [address] Porsha Marsh, LABORER VEGETABLE FARM [address] [place] [address] 02/22/2026 11:00 AM EDT Office Visit [facility] [address] [place] [address] [address] [place] [phone] Alonso Bae MD [address] [place] [address] [address] [place] [address] 07/17/2026 2:00 PM EDT Office Visit [facility] - Internal Medicine [address] [place] [phone] Ilya Gusman MD [address] [place] [phone] 07/19/2026 11:40 AM EDT Office Visit [facility] [address] [place] [address] Yesi Perez MD [address] [place] [address] documented as of this encounter Visit Diagnoses [...] documented as of this encounter Care Teams Welder Metal Fab Relationship Specialty Start Date End Date Ilya Gusman MD [address] [place] [phone] PCP - General 05/14/17 [facility] 09/01/25 documented as of this encounter
--- OUTSIDE RECORDS SUMMARY | 2025-10-06 22:25 | XMS_ITS | Encounter Summary ---
[facility] Organization [facility] Address [address] [place] [address] Phone Care Team Providers Care Website Designer Name Role Phone Ilya Gusman MD Primary Care Provider [phone] Reason for Visit * Reason Comments Med Refill Encounter Details Date Type Department Care Team (Late Contact Info) Description 03/19/2018 Refill [facility] - Internal Medicine [address] [place] [phone] Ilya Gusman MD [address] [place] [address] [phone] Med Refill Social History Tobacco Use Types [...] [facility] - Internal Medicine [address] [place] [phone] Ilya Gusman MD [address] [place] [phone] Christophe Dailey MD [address] [place] [phone] 01/18/2026 1:00 PM EST Office Visit [facility] [address] [place] [address] Porsha Marsh, OUTSIDE PROPERTY AGENT [address] [place] [address] 02/22/2026 11:00 AM EDT Office Visit [facility] [address] [place] [address] [address] [place] [phone] Alonso Bae MD [address] [place] [address] [address] [place] [address] 07/17/2026 2:00 PM EDT Office Visit [facility] - Internal Medicine [address] [place] [phone] Ilya Gusman MD [address] [place] [phone] 07/19/2026 11:40 AM EDT Office Visit [facility] [address] [place] [address] Yesi Perez MD [address] [place] [address] 13[address] documented as of this encounter Visit Diagnoses [...] documented as of this encounter Care Teams Website Designer Relationship Specialty Start Date End Date Ilya Gusman MD [address] [place] [phone] PCP - General 05/14/17 [facility] 09/01/25 documented as of this encounter
--- OUTSIDE RECORDS SUMMARY | 2025-10-06 22:25 | XMS_ITS | Encounter Summary ---
Author Organization [facility]stem Address [address] [place] [address] Phone Care Team Providers Care Brake [address] Freight Name Role Phone Ilya Gusman MD Primary Care Provider [phone] Encounter Details Date Type Department Care Team (Late Contact Info) Description 08/11/2024 Scanned Document [facility] - Health Information Department [address] [place] [phone] Scan, No Provider Available [address] [place] [address] [place] [address] <No scans attached> Social History Tobacco Use [...] Team ([facility] Contact Info) Description 10/10/2025 10:30 AM EST Office Visit [facility] - Internal Medicine [address] [place] [phone] Ilya Gusman MD [address] [place] [phone] Christophe Dailey MD [address] [place] [address] [phone] 01/18/2026 1:00 PM EST Office Visit [facility] [address] [place] [address] Porsha Marsh, PROPELLER DRIVEN AIRPLANE MECHANIC [address] [place] [address] 02/22/2026 11:00 AM EDT Office Visit [facility] [address] [place] [address] [address] [place] [phone] Alonso Bae MD [address] [place] [address] [address] [place] [address] 07/17/2026 2:00 PM EDT Office Visit [facility] - Internal Medicine [address] [place] [phone] Ilya Gusman MD [address] [place] [phone] 07/19/2026 11:40 AM EDT Office Visit [facility] [address] [place] [address] Yesi Perez MD [address] [place] [address] documented as of this encounter Visit Diagnoses Not on filedocumented in this encounter Additional Health Concerns Infection Onset Date Last Indicated Resolved Time C difficile Rule-Out 11/01/2024 11/02/2024 024 9:43 AM EST Assessment Noted Time PHQ-9 Depression Total Score: 6 04/28/20 24 1:53 PM EDT documented as of this encounter Care Teams Brake [address] Freight Relationship Specialty Start Date End Date Ilya Gusman MD [address] [place] [address] [phone] PCP - General 05/14/17 [facility] 09/01/25 documented as of this encounter
--- OUTSIDE RECORDS SUMMARY | 2025-10-06 22:25 | XMS_ITS | Encounter Summary ---
Author Organization [facility] Address [address] [place] [address] Phone Care Team Providers Care Psych Tech Name Role Phone Ilya Gusman MD Primary Care Provider [phone] Encounter Details Date Type Department Care Team (Late st Contact Info) Description 05/09/2018 Orders Only [address] [phone] Non-Provider, Historical, RN Social History [...] [facility] - Internal Medicine [address] [place] [phone] Ilya Gusman MD [address] [place] [phone] Christophe Dailey MD [address] [place] [phone] 01/18/2026 1:00 PM EST Office Visit [facility] [address] [place] [address] 1 [place] [address] Porsha Marsh, STREET OPENINGS INSPECTOR 70 [place] [address] 02/22/2026 11:00 AM EDT Office Visit [facility] [address] [place] [address] [address] [place] [phone] Alonso Bae MD [address] [place] [address] [address] [place] [address] 07/17/2026 2:00 PM EDT Office Visit [facility] - Internal Medicine [address] [place] [phone] Ilya Gusman MD [address] [place] [phone] 07/19/2026 11:40 AM EDT Office Visit [facility] [address] [place] [address] Yesi Perez MD [address] [place] [address] documented as of this encounter Procedures Procedure [...] documented as of this encounter Care Teams Psych Tech Relationship Specialty Start Date End Date Ilya Gusman MD [address] [place] [address] [phone] PCP - General 05/14/17 [facility] 09/01/25 documented as of this encounter
--- OUTSIDE RECORDS SUMMARY | 2025-10-06 22:25 | XMS_ITS | Encounter Summary ---
Author Organization [facility] ystem Address [address] [place] [address] Phone Care Team Providers Care Deputy Attorney General Name Role Phone Ilya Gusman MD Primary Care Provider [phone] Encounter Details Date Type Department Care Team (Late Contact Info) Description 07/19/2024 Scanned Document [facility] - Health Information Department [address] [place] [phone] Scan, No Provider Available [address] [place] [address] [place] [address] <No scans attached> Social History Tobacco Use [...] [facility] Contact Info) Description 10/10/2025 10:30 AM EST Office Visit [facility] - Internal Medicine [address] [place] [phone] Ilya Gusman MD [address] [place] [phone] Christophe Dailey MD [address] [place] [address] [phone] 01/18/2026 1:00 PM EST Office Visit [facility] [address] [place] [address] Porsha Marsh, NURSING OFFICER [address] [place] [address] 02/22/2026 11:00 AM EDT Office Visit [facility] [address] [place] [address] [address] [place] [phone] Alonso Bae MD [address] [place] [address] [address] [place] [address] 07/17/2026 2:00 PM EDT Office Visit [facility] - Internal Medicine [address] [place] [phone] Ilya Gusman MD [address] [place] [phone] 07/19/2026 11:40 AM EDT Office Visit [facility] [address] [place] [address] Yesi Perez MD [address] [place] [address] documented as of this encounter Visit Diagnoses Not on filedocumented in this encounter Additional Health Concerns Infection Onset Date Last Indicated Resolved Time C difficile Rule-Out 11/01/2024 11/02/2024 024 9:43 AM EST Assessment Noted Time PHQ-9 Depression Total Score: 6 04/28/20 24 1:53 PM EDT documented as of this encounter Care Teams Deputy Attorney General Relationship Specialty Start Date End Date Ilya Gusman MD [address] [place] [address] [phone] PCP - General 05/14/17 [facility] 09/01/25 documented as of this encounter
--- OUTSIDE RECORDS SUMMARY | 2025-10-06 22:25 | XMS_ITS | Encounter Summary ---
Author Organization [facility] ystem Address [address] [place] [address] Phone Care Team Providers Care Dispatcher Tow Truck Name Role Phone Ilya Gusman MD Primary Care Provider [phone] Encounter Details Date Type Department Care Team (Late st Contact Info) Description 04/07/2018 Procedure Pass [facility] Endoscopy [address] [place] [address] Social History Tobacco Use Types [...] 10:30 AM EST Office Visit [facility] - Internal Medicine [address] [place] [phone] Ilya Gusman MD [address] [place] [phone] Christophe Dailey MD [address] [place] [phone] 01/18/2026 1:00 PM EST Office Visit [facility] [address] [facility] 1 [place] [address] Porsha Marsh, ICU TECH 70 [place] [address] 02/22/2026 11:00 AM EDT Office Visit [facility] [address] [place] [address] [address] [place] [phone] Alonso Bae MD [address] [place] [address] [address] [place] [address] 07/17/2026 2:00 PM EDT Office Visit [facility] - Internal Medicine [address] [place] [phone] Ilya Gusman MD [address] [place] [phone] 07/19/2026 11:40 AM EDT Office Visit [facility] [address] [place] [address] Yesi Perez MD [address] [place] [address] documented as of this encounter Visit Diagnoses [...] documented as of this encounter Care Teams Dispatcher Tow Truck Relationship Specialty Start Date End Date Ilya Gusman MD [address] [place] [phone] PCP - General 05/14/17 [facility] 09/01/25 documented as of this encounter
--- OUTSIDE RECORDS SUMMARY | 2025-10-06 22:25 | XMS_ITS | Encounter Summary ---
Author Organization [facility] Address [address] [place] [address] Phone Care Team Providers Care Warehouse Hand Name Role Phone Ilya Gusman MD Primary Care Provider [phone] Reason for Visit * Reason Onset Date Comments Med Refill 10/07/2018 Encounter Details Date Type Department Care Team (Late st Contact Info) Description 10/07/2018 Refill [facility] - Internal Medicine [address] [place] [address] [phone] Sondra Chandra MD [address] [place] [phone] Med Refill Social History Tobacco Use [...] 10/07/2018 10:43 AM EST Oxycodone 10mg Pharmacy: [facility] DATE OF LAST REFILL? 09/24/18 FREQUENCY OF [...] Luz Maria Victor PA-C KIN ENC KIN LOCATION DIRECTOR reviewed on 10/07/2018 by Ian SORIA and no red flags were noted Ian Soria/[place] Refill Team, Loft * Telephone Encounter - Sheron Hoover PhT - 10/07/2018 10:43 AM ESTFrom: Adolfo Zaragoza To: Sondra Chandra MD Sent: 10/07/2018 8:22 AM EST Subject: Medication Renewal Request Original authorizing provider: MD Adolfo PENA would like a refill of the following medications: oxyCODONE (ROXICODONE) 10 MG tablet [SONDRA CHANDRA MD] Preferred pharmacy: [id number] - [address] Delivery method: Pickup Preferred pick-up date and time: 10/07/2018 Comment: documented in this encounter Plan of Treatment Upcoming Encounters Date Type Department Care Team (Late st Contact Info) Description 10/10/2025 10:30 AM EST Office Visit [facility] - Internal Medicine [address] [place] [address] [phone] Ilya Gusman MD [address] [place] [phone] Sondra Chandra MD [address] [place] [phone] 01/18/2026 1:00 PM EST Office Visit [facility] 1 [place] [address] Porsha Marsh, LOOM DOFFER 70 [place] [address] 02/22/2026 11:00 AM EDT Office Visit [facility] [address] [place] [phone] Alonso Bae MD [address] [place] [address] [address] [place] [address] 07/17/2026 2:00 PM EDT Office Visit [facility] - Internal Medicine [address] [place] [address] [phone] Ilya Gusman MD [address] [place] [phone] 07/19/2026 11:40 AM EDT Office Visit [facility] [address] [place] [address] Yesi Perez MD [address] [place] [address] documented as of this encounter Visit Diagnoses [...] as of this encounter Care Teams Warehouse Hand Relationship Specialty Start Date End Date Ilya Gusman MD [address] [place] [phone] PCP - General 05/14/17 [facility] 09/01/25 documented as of this encounter
--- OUTSIDE RECORDS SUMMARY | 2025-10-06 22:25 | XMS_ITS | Encounter Summary ---
Author Organization [facility] ystem Address [address] [place] [address] Phone Care Team Providers Care Supervisor Drilling And Shooting Name Role Phone Ilya Gusman MD Primary Care Provider [phone] Encounter Details Date Type Department Care Team (Late Contact Info) Description 06/02/2024 Scanned Document [facility] - Health Information Department [address] [place] [phone] Scan, No Provider Available [address] [place] [address] [place] [address] <No scans attached> Social History Tobacco Use [...] [facility]) Description 10/10/2025 10:30 AM EST Office Visit [facility] - Internal Medicine [address] [place] [phone] Ilya Gusman MD [address] [place] [phone] Christophe Dailey MD [address] [place] [address] [phone] 01/18/2026 1:00 PM EST Office Visit [facility] [address] [place] [address] Porsha Marsh, SECURITY SOLUTIONS ARCHITECT [address] [place] [address] 02/22/2026 11:00 AM EDT Office Visit [facility] [address] [place] [address] [address] [place] [phone] Alonso Bae MD [address] [place] [address] [address] [place] [address] 07/17/2026 2:00 PM EDT Office Visit [facility] - Internal Medicine [address] [place] [phone] Ilya Gusman MD [address] [place] [phone] 07/19/2026 11:40 AM EDT Office Visit [facility] [address] [place] [address] Yesi Perez MD [address] [place] [address] documented as of this encounter Visit Diagnoses Not on filedocumented in this encounter Additional Health Concerns Infection Onset Date Last Indicated Resolved Time C difficile Rule-Out 11/01/2024 11/02/2024 024 9:43 AM EST Assessment Noted Time PHQ-9 Depression Total Score: 6 04/28/20 24 1:53 PM EDT documented as of this encounter Care Teams Supervisor Drilling And Shooting Relationship Specialty Start Date End Date Ilya Gusman MD [address] [place] [address] [phone] PCP - General 05/14/17 [facility] 09/01/25 documented as of this encounter
--- OUTSIDE RECORDS SUMMARY | 2025-10-06 22:25 | XMS_ITS | Encounter Summary ---
Author Organization [facility] ystem Address [address] [place] [address] Phone Care Team Providers Care Ware Finisher Name Role Phone Ilya Gusman MD Primary Care Provider [phone] Encounter Details Date Type Department Care Team ([facility] Contact Info) Description 08/11/2024 Orders Only [facility] - Health Information Department [address] [place] [address] Scan, No Provider Available [address] [place] [address] Dr. Eleazar [place] [phone] Social History Tobacco Use Types Packs/Day Years [...] Upcoming Encounters Date Type Department Care Team ([facility] Contact Info) Description 10/10/2025 10:30 AM EST Office Visit [facility] - Internal Medicine [address] [place] [phone] Ilya Gusman MD [address] [place] [phone] Christophe Dailey MD [address] [place] [phone] 01/18/2026 1:00 PM EST Office Visit [facility] [address] [place] [address] Porsha Marsh, REFERENCE ARCHIVIST [address] [place] [address] 02/22/2026 11:00 AM EDT Office Visit [facility] [address] [place] [address] [address] [place] [phone] Alonso Bae MD [address] [place] [address] [address] [place] [address] 07/17/2026 2:00 PM EDT Office Visit [facility] - Internal Medicine [address] [place] [address] [phone] Ilya Gusman MD [address] [place] [phone] 07/19/2026 11:40 AM EDT Office Visit [address] [address] Yesi Perez MD [address] [place] [address] documented as of this encounter Procedures Procedure [...] documented as of this encounter Care Teams Ware Finisher Relationship Specialty Start Date End Date Ilya Gusman MD [address] [place] [address] [phone] PCP - General 05/14/17 [facility] 09/01/25 documented as of this encounter
--- OUTSIDE RECORDS SUMMARY | 2025-10-06 22:25 | XMS_ITS | Encounter Summary ---
Author Organization [facility] Address [address] [place] [address] Phone Care Team Providers Care Food Prep Worker Name Role Phone Ilya Gusman MD Primary Care Provider [phone] Encounter Details Date Type Department Care Team (Late Contact Info) Description 08/05/2018 Scanned Document [facility] - Health Information Department [address] [place] [address] Scan, No Provider Available [address] [place] [address] [place] [address] <No scans attached> Social History Tobacco Use [...] Description 10/10/2025 10:30 AM EST Office Visit [facility] - Internal Medicine [address] [place] [phone] Ilya Gusman MD [address] [place] [phone] Christophe Dailey MD [address] [place] [phone] 01/18/2026 1:00 PM EST Office Visit [facility] [address] [place] [address] Porsha Marsh, HOLE DIGGER TRUCK DRIVER 70 [place] [address] 02/22/2026 11:00 AM EDT Office Visit [facility] [address] [place] [address] [address] [place] [phone] Alonso Bae MD [address] [place] [address] 2 [place] [address] 07/17/2026 2:00 PM EDT Office Visit [facility] - Internal Medicine [address] [place] [phone] Ilya Gusman MD [address] [place] [phone] 07/19/2026 11:40 AM EDT Office Visit [facility] [address] [place] [address] Yesi Perez MD [address] [place] [address] documented as of this encounter Visit Diagnoses [...] documented as of this encounter Care Teams Food Prep Worker Relationship Specialty Start Date End Date Ilya Gusman MD [address] [place] [address] [phone] PCP - General 05/14/17 [facility] 09/01/25 documented as of this encounter
--- OUTSIDE RECORDS SUMMARY | 2025-10-06 22:25 | XMS_ITS | Encounter Summary ---
Author Organization [facility] ystem Address [address] [place] [address] Phone Care Team Providers Care Deputy Of Counter Intelligence Name Role Phone Ilya Gusman MD Primary Care Provider [phone] Encounter Details Date Type Department Care Team (Late Contact Info) Description 10/19/2018 Scanned Document [facility] - Health Information Department [address] [place] [phone] Scan, No Provider Available [address] [place] [address] [place] [address] <No scans attached> Social History Tobacco Use [...] [facility] Contact Info) Description 10/10/2025 10:30 AM EST Office Visit [facility] - Internal Medicine [address] [place] [phone] Ilya Gusman MD [address] [place] [phone] Christophe Dailey MD [address] [place] [phone] 01/18/2026 1:00 PM EST Office Visit [facility] [address] [place] [address] Porsha Marsh, GLOBAL DIRECTOR AIR AND CLIMATE CHANGE [address] [place] [address] 02/22/2026 11:00 AM EDT Office Visit [facility] [address] [place] [address] [address] [place] [phone] Alonso Bae MD [address] [place] [address] [address] [place] [address] 07/17/2026 2:00 PM EDT Office Visit [facility] - Internal Medicine [address] [place] [phone] Ilya Gusman MD [address] [place] [phone] 07/19/2026 11:40 AM EDT Office Visit [facility] [address] [place] [address] Yesi Perez MD [address] [place] [address] documented as of this encounter Visit Diagnoses [...] as of this encounter Care Teams Deputy Of Counter Intelligence Relationship Specialty Start Date End Date Ilya Gusman MD [address] [place] [phone] PCP - General 05/14/17 [facility] 09/01/25 documented as of this encounter
--- OUTSIDE RECORDS SUMMARY | 2025-10-06 22:25 | XMS_ITS | Encounter Summary ---
Author Organization [facility] Address [address] [place] [address] Phone Care Team Providers Care J2Ee Application Developer Name Role Phone Ilya Gusman MD Primary Care Provider [phone] Encounter Details Date Type Department Care Team (Late Contact Info) Description 06/04/2018 Scanned Document [facility] - Health Information Department [address] [place] [phone] Scan, No Provider Available [address] [place] [address] [place] [address] <No scans attached> Social History Tobacco Use [...] [facility] [address] [place] [phone] Ilya Gusman MD [address] [place] [phone] Christophe Dailey MD [address] [place] [phone] 01/18/2026 1:00 PM EST Office Visit [facility] [address] [place] [address] Porsha Marsh, EARTH SCIENCE TECHNICIAN 70 [place] [address] 02/22/2026 11:00 AM EDT Office Visit [facility] [address] [place] [address] [address] [place] [phone] Alonso Bae MD [address] [place] [address] 2 [place] [address] 07/17/2026 2:00 PM EDT Office Visit [facility] - Internal Medicine [address] [place] [phone] Ilya Gusman MD [address] [place] [phone] 07/19/2026 11:40 AM EDT Office Visit [facility] [address] [place] [address] Yesi Perez MD [address] [place] [address] documented as of this encounter Visit Diagnoses [...] documented as of this encounter Care Teams J2Ee Application Developer Relationship Specialty Start Date End Date Ilya Gusman MD [address] [place] [address] [phone] PCP - General 05/14/17 [facility] 09/01/25 documented as of this encounter
--- OUTSIDE RECORDS SUMMARY | 2025-10-06 22:25 | XMS_ITS | Encounter Summary ---
[facility] Address [address] [place] [address] Phone Care Team Providers Care Retail Sales Associate Bilingual Name Role Phone Ilya Gusman MD Primary Care Provider [phone] Reason for Visit * Reason Onset Date Comments VNA Service Delay 07/15/2024 Encounter Details Date Type Department Care Team ([facility] Contact Info) Description 07/15/2024 Telephone [facility] [address] [place] [phone] Ana Mcallister LPN VNA Service Delay [...] 07/15/2024 11:43 AM EDT Received voicemail from [facility]. Calling to report that order was faxed to [phone] for patient can receive services. Once orderis signed by PCP, please fax back to [facility]. Routing to secretaries for assistance. Ana Mcallister LPN documented in this encounter Plan of Treatment Upcoming Encounters Date Type Department Care Team (Late st Contact Info) Description 10/10/2025 10:30 AM EST Office Visit [facility] - Internal Medicine [address] [place] [phone] Ilya Gusman MD [address] [place] [phone] Christophe Dailey MD [address] [place] [phone] 01/18/2026 1:00 PM EST Office Visit [facility] [address] [facility] 1 [place] [address] Porsha Marsh, ELECTRIC ORGAN CHECKER 70 [place] [address] 02/22/2026 11:00 AM EDT Office Visit [facility] [address] [place] [address] [address] [place] [phone] Alonso Bae MD [address] [place] [address] [address] [place] [address] 07/17/2026 2:00 PM EDT Office Visit [facility] - Internal Medicine [address] [place] [phone] Ilya Gusman MD [address] [place] [phone] 07/19/2026 11:40 AM EDT Office Visit [facility] [address] [address] Yesi Perez MD 70 [place] [address] documented as of this encounter Visit Diagnoses Not on filedocumented in this encounter Additional Health Concerns Infection Onset Date Last Indicated Resolved Time C difficile Rule-Out 11/01/2024 11/02/2024 024 9:43 AM EST Assessment Noted Time PHQ-9 Depression Total Score: 6 04/28/20 24 1:53 PM EDT documented as of this encounter Care Teams Retail Sales Associate Bilingual Relationship Specialty Start Date End Date Ilya Gusman MD [address] [place] [phone] PCP - General 05/14/17 [facility] 09/01/25 documented as of this encounter
--- OUTSIDE RECORDS SUMMARY | 2025-10-06 22:25 | XMS_ITS | Encounter Summary ---
Author Organization [facility] ystem Address [address] [place] [address] Phone Care Team Providers Care Food Handler Name Role Phone Ilya Gusman MD Primary Care Provider [phone] Encounter Details Date Type Department Care Team ([facility] Contact Info) Description 11/03/2018 Orders Only [facility] - Health Information Department [address] [place] [address] [phone] Scan, No Provider Available [address] [place] [address] [place]. [place] [phone] Social History Tobacco Use Types Packs/Day Years [...] Team ([facility] Contact Info) Description 10/10/2025 10:30 AM EST Office Visit [facility] - Internal Medicine [address] [place] [phone] Ilya Gusman MD [address] [place] [phone] Christophe Dailey MD [address] [place] [phone] 01/18/2026 1:00 PM EST Office Visit [facility] [address] [place] [address] Porsha Marsh, CORRECTIONS CADET [address] [place] [address] 02/22/2026 11:00 AM EDT Office Visit [facility] [address] [place] [address] [address] [place] [phone] Alonso Bae MD [address] [place] [address] [address] [place] [address] 07/17/2026 2:00 PM EDT Office Visit [facility] - Internal Medicine [address] [place] [phone] Ilya Gusman MD [address] [place] [phone] 07/19/2026 11:40 AM EDT Office Visit [facility] [address] [place] [address] Yesi Perez MD [address] [place] [address] documented as of this encounter Procedures Procedure [...] as of this encounter Care Teams Food Handler Relationship Specialty Start Date End Date Ilya Gusman MD [address] [place] [phone] PCP - General 05/14/17 [facility] 09/01/25 documented as of this encounter
--- OUTSIDE RECORDS SUMMARY | 2025-10-06 22:25 | XMS_ITS | Encounter Summary ---
[facility] Address [address] [place] [address] Phone Care Team Providers Care Therapy Technician Name Role Phone Ilya Gusman MD Primary Care Provider [phone] Encounter Details Date Type Department Care Team (Late Contact Info) Description 08/10/2018 Scanned Document [facility] - Health Information Department [address] [place] [address] Scan, No Provider Available [address] [place] [address] [place] [address] <No scans attached> Social History Tobacco Use [...] Description 10/10/2025 10:30 AM EST Office Visit [facility] - Internal Medicine [address] [place] [phone] Ilya Gusman MD [address] [place] [phone] Christophe Dailey MD [address] [place] [phone] 01/18/2026 1:00 PM EST Office Visit [facility] [address] [place] [address] Porsha Marsh, SEAFOOD CLERK 70 [place] [address] 02/22/2026 11:00 AM EDT Office Visit [facility] [address] [place] [address] [address] [place] [phone] Alonso Bae MD [address] [place] [address] 2 [place] [address] 07/17/2026 2:00 PM EDT Office Visit [facility] - Internal Medicine [address] [place] [phone] Ilya Gusman MD [address] [place] [phone] 07/19/2026 11:40 AM EDT Office Visit [facility] [address] [place] [address] Yesi Perez MD [address] [place] [address] documented as of this encounter Visit Diagnoses [...] documented as of this encounter Care Teams Therapy Technician Relationship Specialty Start Date End Date Ilya Gusman MD [address] [place] [address] [phone] PCP - General 05/14/17 [facility] 09/01/25 documented as of this encounter
--- OUTSIDE RECORDS SUMMARY | 2025-10-06 22:25 | XMS_ITS | Encounter Summary ---
Author Organization [facility] Address [address] [place] [address] Phone Care Team Providers Care Aeronautics Commission Director Name Role Phone Ilya Gusman MD Primary Care Provider [phone] Reason for Visit * Reason Onset Date Comments Med Refill 07/11/2024 Encounter Details Date Type Department Care Team (Late Contact Info) Description 07/11/2024 Refill [facility] - Internal Medicine [address] [place] [address] [phone] Christophe Dailey MD [address] [place] [phone] Med Refill Social History Tobacco Use [...] URO WEY 11/04/2024 1:00 PM Flaquita Paige, DUST MIXER LNG IM LNG MUSIC EDUCATION ADJUNCT PROFESSOR reviewed on 07/12/2024 by Ian PICKETT and no red flags were noted Ian Pierson REFILL SPECIALIST documented in this encounter Plan of Treatment Upcoming Encounters Date Type Department Care Team (Late st Contact Info) Description 10/10/2025 10:30 AM EST Office Visit [facility] [place] [facility] - Internal Medicine [address] [place] [phone] Ilya Gusman MD [address] [place] [phone] Christophe Dailey MD [address] [place] [address] [phone] 01/18/2026 1:00 PM EST Office Visit [facility] [address] [facility] 1 [place] [address] Porsha Marsh, CALL CENTER COORDINATOR [address] [place] [address] 02/22/2026 11:00 AM EDT Office Visit [facility] [address] [place] [address] [address] [place] [phone] Alonso Bae MD [address] [facility] [address] [place] [address] 07/17/2026 2:00 PM EDT Office Visit [facility] [place] [facility] - Internal Medicine [address] [place] [address] [phone] Ilya Gusman MD [address] [place] [phone] 07/19/2026 11:40 AM EDT Office Visit [facility] [address] [address] Yesi Perez MD 70 [place] [address] documented as of this encounter Visit Diagnoses Not on filedocumented in this encounter Additional Health Concerns Infection Onset Date Last Indicated Resolved Time C difficile Rule-Out 11/01/2024 11/02/2024 024 9:43 AM EST Assessment Noted Time PHQ-9 Depression Total Score: 6 04/28/20 24 1:53 PM EDT documented as of this encounter Care Teams Aeronautics Commission Director Relationship Specialty Start Date End Date Ilya Gusman MD [address] [place] [phone] PCP - General 05/14/17 [facility] 09/01/25 documented as of this encounter
--- OUTSIDE RECORDS SUMMARY | 2025-10-06 22:25 | XMS_ITS | Encounter Summary ---
Author Organization [facility] Address [address] [place] [address] Phone Care Team Providers Care Post Anesthesia Nurse Name Role Phone Ilya Gusman MD Primary Care Provider [phone] Encounter Details Date Type Department Care Team (Late Contact Info) Description 07/09/2018 Scanned Document [facility] - Health Information Department [address] [place] [phone] Scan, No Provider Available [address] [place] [address] [place] [address] <No scans attached> Social History Tobacco Use [...] 10:30 AM EST Office Visit [facility] - Internal Medicine [address] [place] [phone] Ilya Gusman MD [address] [place] [phone] Christophe Dailey MD [address] [place] [phone] 01/18/2026 1:00 PM EST Office Visit [facility] [address] [place] [address] Porsha Marsh, ELECTRICAL ENGINEERING DRAFTSPERSON 70 [place] [address] 02/22/2026 11:00 AM EDT Office Visit [facility] [address] [place] [address] [address] [place] [phone] Alonso Bae MD [address] [place] [address] 2 [place] [address] 07/17/2026 2:00 PM EDT Office Visit [facility] - Internal Medicine [address] [place] [phone] Ilya Gusman MD [address] [place] [phone] 07/19/2026 11:40 AM EDT Office Visit [facility] [address] [place] [address] Yesi Perez MD [address] [place] [address] documented as of this encounter Visit Diagnoses [...] documented as of this encounter Care Teams Post Anesthesia Nurse Relationship Specialty Start Date End Date Ilya Gsuman MD [address] [place] [address] [phone] PCP - General 05/14/17 [facility] 09/01/25 documented as of this encounter
--- OUTSIDE RECORDS SUMMARY | 2025-10-06 22:25 | XMS_ITS | Encounter Summary ---
Author Organization [facility] Address [address] [place] [address] Phone Care Team Providers Care Training Director Name Role Phone Ilya Gusman MD Primary Care Provider [phone] Reason for Visit * Reason Onset Date Comments Med Refill 07/17/2018 Encounter Details Date Type Department Care Team (Late st Contact Info) Description 07/17/2018 Refill [facility] - Internal Medicine [address] [place] [address] [phone] Sondra Chandra MD [address] [place] [phone] Med Refill Social History Tobacco Use [...] 9:16 AM EDT Oxycodone 5 mg Pharmacy: [facility] DATE OF LAST REFILL? 07/07/18 FREQUENCY OF [...] AM Ilya Gusman MD LNG IM LNG REEL SLITTER reviewed on 07/20/2018 by JANY DALEY LPN [...] release tablet [SONDRA CHANDRA MD] Preferred pharmacy: [id number] - [place], [place] - [address] [facility] Delivery method: Pickup Comment: documented in this encounter Plan of Treatment Upcoming Encounters Date Type Department Care Team (Late st Contact Info) Description 10/10/2025 10:30 AM EST Office Visit [facility] - Internal Medicine [address] [place] [phone] Ilya Gusman MD [address] [place] [phone] Sondra Chandra MD [address] [place] [phone] 01/18/2026 1:00 PM EST Office Visit [facility] [address] [place] [address] Porsha Marsh, DRIER AND GRINDER TENDER 70 [place] [address] 02/22/2026 11:00 AM EDT Office Visit [facility] [address] [place] [address] [address] [place] [phone] Alonso Bae MD [address] [place] [address] [address] [place] [address] 07/17/2026 2:00 PM EDT Office Visit [facility] - Internal Medicine [address] [place] [phone] Ilya Gusman MD [address] [place] [phone] 07/19/2026 11:40 AM EDT Office Visit [facility] [address] [place] [address] Yesi Perez MD [address] [place] [phone] documented as of this encounter Visit Diagnoses [...] as of this encounter Care Teams Training Director Relationship Specialty Start Date End Date Ilya Gusman MD [address] [place] [phone] PCP - General 05/14/17 [facility] 09/01/25 documented as of this encounter
--- OUTSIDE RECORDS SUMMARY | 2025-10-06 22:25 | XMS_ITS | Encounter Summary ---
Author Organization [facility] Address [address] [place] [address] Phone Care Team Providers Care Toll Booth Operator Name Role Phone Ilya Gusman MD Primary Care Provider [phone] Encounter Details Date Type Department Care Team (Late Contact Info) Description 05/19/2018 Scanned Document [facility] - Health Information Department [address] [place] [address] Scan, No Provider Available [address] [place] [address] [place] [address] <No scans attached> Social History Tobacco Use [...] Description 10/10/2025 10:30 AM EST Office Visit [facility] - Internal Medicine [address] [place] [phone] Ilya Gusman MD [address] [place] [phone] Christophe Dailey MD [address] [place] [phone] 01/18/2026 1:00 PM EST Office Visit [facility] [address] [place] [address] Porsha Marsh, MANAGER ROOFING 70 [place] [address] 02/22/2026 11:00 AM EDT Office Visit [facility] [address] [place] [address] [address] [place] [phone] Alonso Bae MD [address] [place] [address] 2 [place] [address] 07/17/2026 2:00 PM EDT Office Visit [facility] - Internal Medicine [address] [place] [phone] Ilya Gusman MD [address] [place] [phone] 07/19/2026 11:40 AM EDT Office Visit [facility] [address] [place] [address] Yesi Perez MD [address] [place] [address] documented as of this encounter Visit Diagnoses [...] documented as of this encounter Care Teams Toll Booth Operator Relationship Specialty Start Date End Date Ilya Gusman MD [address] [place] [address] [phone] PCP - General 05/14/17 [facility] 09/01/25 documented as of this encounter
--- OUTSIDE RECORDS SUMMARY | 2025-10-06 22:25 | XMS_ITS | Encounter Summary ---
Author Organization [facility] Address [address] [place] [address] Phone Care Team Providers Care Facility Maintenance Mechanic Name Role Phone Ilya Gusman MD Primary Care Provider [phone] Reason for Referral * Consultation (1 Month) - Closed Specialty Diagnoses / Procedures Referred By London blankenship Referred To Contact Ophthalmology Diagnoses Encounter for eye exam Ilya Gusman MD [address] [place] [phone] Phone: tel: fax: Alvaro Estes MD Phone: tel: fax: Referral ID Status Reason Start Date Expiration Date V isits Requested Visits Authorized [id number] Closed Specialty Services Required 04/02/2018 04/02/2019 12 12 Encounter Details Date Type Department Care Team ([facility] st Contact Info) Description 04/12/2018 Orders Only [address] [phone] Ilya Gusman MD [address] [place] [address] [phone] Encounter for eye exam (Primary Dx) Social [...] [facility] - Internal Medicine [address] [place] [phone] Ilya Gusman MD [address] [place] [phone] Christophe Dailey MD [address] [place] [address] [phone] 01/18/2026 1:00 PM EST Office Visit [facility] [address] [facility] 1 [place] [address] Porsha Marsh, GEAR SETTER [address] [place] [address] 02/22/2026 11:00 AM EDT Office Visit [facility] [address] [place] [phone] Alonso Bae MD [facility] [address] [place] [address] 07/17/2026 2:00 PM EDT Office Visit [facility] - Internal Medicine [address] [place] [phone] Ilya Gusman MD [address] [place] [phone] 07/19/2026 11:40 AM EDT Office Visit [facility] [address] [address] Yesi Perez MD 70 [place] [address] Scheduled Referrals Name Type Priority Associated Diagnoses [...] documented as of this encounter Care Teams Facility Maintenance Mechanic Relationship Specialty Start Date End Date Ilya Gusman MD [address] [place] [phone] PCP - General 05/14/17 [facility] 09/01/25 documented as of this encounter
--- OUTSIDE RECORDS SUMMARY | 2025-10-06 22:25 | XMS_ITS | Encounter Summary ---
Author Organization [facility] Address [address] [place] [address] Phone Care Team Providers Care Collision Estimator Name Role Phone Ilya Gusman MD Primary Care Provider [phone] Encounter Details Date Type Department Care Team ([facility] Contact Info) Description 08/04/20[address] Orders [address] [facility] - Health Information Department [address] [place] [phone] Scan, No Provider Available [address] [place] [address] Dr. Eleazar [place] [phone] Social History Tobacco Use Types Packs/Day Years [...] ([facility] Contact Info) Description 10/10/2025 10:30 AM EST Office [facility] - Internal Medicine [address] [place] [phone] Ilya Gusman MD [address] [place] [phone] Christophe Dailey MD [address] [place] [phone] 01/18/2026 1:00 PM EST Office Visit [facility] [address] [place] [address] Porsha Marsh, GEOTHERMAL FIELD TECHNICIAN [address] [place] [address] 02/22/2026 11:00 AM EDT Office Visit [facility] [address] [place] [address] [address] [place] [phone] Alonso Bae MD [address] [place] [address] [address] [place] [address] 07/17/2026 2:00 PM EDT Office Visit [facility] - Internal Medicine [address] [place] [phone] Ilya Gusman MD [address] [place] [phone] 07/19/2026 11:40 AM EDT Office Visit [facility] [address] [place] [address] Yesi Perez MD [address] [place] [address] documented as of this encounter Procedures Procedure [...] documented as of this encounter Care Teams Collision Estimator Relationship Specialty Start Date End Date Ilya Gusman MD [address] [place] [address] [phone] PCP - General 05/14/17 [facility] 09/01/25 documented as of this encounter
--- OUTSIDE RECORDS SUMMARY | 2025-10-06 22:25 | XMS_ITS | Encounter Summary ---
Author Organization [facility] Address [address] [place] [address] Phone Care Team Providers Care Elementary Assistant Principal Name Role Phone Ilya Gusman MD Primary Care Provider [phone] Encounter Details Date Type Department Care Team (Late Contact Info) Description 05/25/2018 Scanned Document [facility] - Health Information Department [address] [place] [phone] Scan, No Provider Available [address] [place] [address] [place] [address] <No scans attached> Social History Tobacco Use [...] 10/10/2025 10:30 AM EST Office Visit [facility] - Internal Medicine [address] [place] [phone] Ilya Gusman MD [address] [place] [phone] Christophe Dailey MD [address] [place] [phone] 01/18/2026 1:00 PM EST Office Visit [facility] [address] [place] [address] Porsha Marsh, ESTIMATOR LUMBER 70 [place] [address] 02/22/2026 11:00 AM EDT Office Visit [facility] [address] [place] [address] [address] [place] [phone] Alonso Bae MD [address] [place] [address] 2 [place] [address] 07/17/2026 2:00 PM EDT Office Visit [facility] - Internal Medicine [address] [place] [phone] Ilya Gusman MD [address] [place] [phone] 07/19/2026 11:40 AM EDT Office Visit [facility] [address] [place] [address] Yesi Perez MD [address] [place] [address] documented as of this encounter Visit Diagnoses [...] documented as of this encounter Care Teams Elementary Assistant Principal Relationship Specialty Start Date End Date Ilya Gusman MD [address] [place] [address] [phone] PCP - General 05/14/17 [facility] 09/01/25 documented as of this encounter
--- OUTSIDE RECORDS SUMMARY | 2025-10-06 22:25 | XMS_ITS | Encounter Summary ---
Author Organization [facility] Address [address] [place] [address] Phone Care Team Providers Care Chemist Enzymes Name Role Phone Ilya Gusman MD Primary Care Provider [phone] Encounter Details Date Type Department Care Team ([facility] Contact Info) Description 08/12/2023 Orders Only [facility] - Health Information Department [address] [place] [address] Scan, No Provider Available [address] [place] [address] Dr. Eleazar [place] [phone] Social History Tobacco Use Types Packs/Day Years [...] Upcoming Encounters Date Type Department Care Team ([facility] Contact Info) Description 10/10/2025 10:30 AM EST Office Visit [facility] - Internal Medicine [address] [place] [phone] Ilya Gusman MD [address] [place] [phone] Christophe Dailey MD [address] [place] [phone] 01/18/2026 1:00 PM EST Office Visit [facility] [address] [place] [address] Porsha Marsh, ACCOUNTING BOOKKEEPER [address] [place] [address] 02/22/2026 11:00 AM EDT Office Visit [facility] [address] [place] [address] [address] [place] [phone] Alonso Bae MD [address] [place] [address] [address] [place] [address] 07/17/2026 2:00 PM EDT Office Visit [facility] - Internal Medicine [address] [place] [phone] Ilya Gusman MD [address] [place] [phone] 07/19/2026 11:40 AM EDT Office Visit [facility] [address] [place] [address] Yesi Perez MD [address] [place] [address] documented as of this encounter Procedures [...] documented as of this encounter Care Teams Chemist Enzymes Relationship Specialty Start Date End Date Ilya Gusman MD [address] [place] [phone] PCP - General 05/14/17 [facility] 09/01/25 documented as of this encounter
--- OUTSIDE RECORDS SUMMARY | 2025-10-06 22:25 | XMS_ITS | Encounter Summary ---
Author Organization [facility] Address [address] [place] [address] Phone Care Team Providers Care Whizzer Name Role Phone Ilya Gusman MD Primary Care Provider [phone] Encounter Details Date Type Department Care Team (Late Contact Info) Description 07/10/2024 Procedure Pass [facility] - MR Imaging [address] [place] [address] Social History Tobacco Use Types [...] Description 10/10/2025 10:30 AM EST Office Visit [facility] - Internal Medicine [address] [place] [phone] Ilya Gusman MD [address] [place] [phone] Christophe Dailey MD [address] [place] [address] [phone] 01/18/2026 1:00 PM EST Office Visit [facility] [address] [place] [address] Porsha Marsh, DOCTOR OSTEOPATHIC 70 [place] [address] 02/22/2026 11:00 AM EDT Office Visit [facility] [address] [place] [address] [address] [place] [phone] Alonso Bae MD [address] [place] [address] 2 [place] [address] 07/17/2026 2:00 PM EDT Office Visit [facility] - Internal Medicine [address] [place] [phone] Ilya Gusman MD [address] [place] [phone] 07/19/2026 11:40 AM EDT Office Visit [address] [address] Yesi Perez MD [address] [place] [address] documented as of this encounter Visit Diagnoses Not on filedocumented in this encounter Additional Health Concerns Infection Onset Date Last Indicated Resolved Time C difficile Rule-Out 11/01/2024 11/02/2024 024 9:43 AM EST Assessment Noted Time PHQ-9 Depression Total Score: 6 04/28/20 24 1:53 PM EDT documented as of this encounter Care Teams Whizzer Relationship Specialty Start Date End Date Ilya Gusman MD [address] [place] [phone] PCP - General 05/14/17 [facility] 09/01/25 documented as of this encounter
--- OUTSIDE RECORDS SUMMARY | 2025-10-06 22:25 | XMS_ITS | Encounter Summary ---
Author Organization [facility] Address [address] [place], [place] [phone] Care Team Providers Care Diathermy Equipment Repairer Name Role Phone Solis Encarnacion MD Unavailable [phone] Ilya Gusman MD Primary Care Provider [phone] Encounter Details Date Type Department Care Team (Late st Contact Info) Description 06/07/2024 Lab [facility] Orders Tc Alvarado MD [address] [place] [phone] Social History Tobacco Use Types Packs/Day Years [...] Negative Negative BG 06/12/2024 12:26 AM EDT [facility] Comment:This EIA assay detec ts the most common Shiga toxin produced by E. coli 0157:H7 in addition to other serotypes. Shiga-toxin II Negative Negative BG 06/12/2024 12:26 AM EDT [facility] Comment:This EIA assay detec ts the most common Shiga toxin produced by E. coli 0157:H7 in addition to other serotypes. Stool STOOL SPECIMEN / Unknown 06/09/2024 9:00 PM EDT 06/10/2024 11:14 AM EDT Jeanine Reyna MD MICROBIOLOGY - GENERAL ORDERAB LES Final Result Performing Organization Address City/[facility]/ZIP Co de Phone Number [facility] [address] [place] [address], * Culture, Stool (06/09/2024 9:00 PM EDT) Culture No Salmonella,Shig bella,Campylobac ter,Aeromonas, Plesiomonas Isolated. Normal Stool Camila Present. BG 06/13/2024 7:34 AM EDT [facility] Stool STOOL SPECIMEN / Unknown 06/09/2024 9:00 PM EDT 06/10/2024 11:14 AM EDT Jeanine Reyna MD MICROBIOLOGY - GENERAL ORDERAB LES Final Result Performing Organization Address City/[facility]/ZIP Co de Phone Number [facility] [address] [place] [address], [place] [phone] * Culture, Blood (06/07/2024 4:55 PM EDT) Culture No growth after 5 days BG 06/12/2024 8:01 PM EDT [facility] Blood VENOUS STRUCTURE / Unknown 06/07/2024 4:55 PM EDT 06/07/2024 7:29 PM EDT us Tc Alvarado MD MICROBIOLOGY - GENERAL ORDERABL ES Final Result Performing Organization Address City/[facility]/ZIP Co de Phone Number [facility] [address] [place] [address], [place] [phone] * Culture, Blood (06/07/2024 4:35 PM EDT) Culture No growth after 5 days BG 06/12/2024 8:01 PM EDT [facility] Blood VENOUS STRUCTURE / Unknown 06/07/2024 4:35 PM EDT 06/07/2024 7:29 PM EDT Tc Alvarado MD MICROBIOLOGY - GENERAL ORDERABL ES Final Result Performing Organization Address [facility] de Phone Number [facility] [address] [place] [address], [place] [phone] documented in this encounter Visit Diagnoses Not on filedocumented in this encounter Additional Health Concerns Infection Onset Date Last Indicated Resolved Time Rule-Out Respiratory Virus 03/09/2025 03/09/2025 0 03/09/2025 1:55 PM EDT Rule-Out Respiratory Virus 06/22/2025 06/22/2025 0 06/22/2025 2:14 AM EDT Rule-Out Respiratory Virus 07/02/2025 07/02/2025 0 07/02/2025 9:23 AM EDT Rule-Out Respiratory Virus 09/22/2025 09/22/2025 1 11:36 AM EDT Rule-Out Respiratory Virus 10/05/2025 10/05/2025 1 12/05/2024 11:12 PM EST documented as of this encounter Care Teams Diathermy Equipment Repairer Relationship Specialty Start Date End Date Ilya Gusman MD [address] [place] [address] PCP - General 02/12/24 Solis Encarnacion MD [address] [place] [address] Cardiac Electrophysiology 04/24/2402/22 documented as of this encounter
--- OUTSIDE RECORDS SUMMARY | 2025-10-06 22:25 | XMS_ITS | Encounter Summary ---
Author Organization [facility] Address [address] [place] [address] Phone Care Team Providers Care Bonding Agent Name Role Phone Ilya Gusman MD Primary Care Provider [phone] Encounter Details Date Type Department Care Team (Late Contact Info) Description 08/20/2018 Scanned Document [facility] - Health Information Department [address] [place] [address] Scan, No Provider Available [address] [place] [address] [place] [id number] <No scans attached> Social History Tobacco Use [...] [facility] Internal Medicine [address] [place] [phone] Ilya Gusman MD [address] [place] [phone] Christophe Dailey MD [address] [place] [phone] 01/18/2026 1:00 PM EST Office Visit [facility] [address] [place] [address] Porsha Marsh, MAGNETIC RESONANCE TECHNOLOGIST 70 [place] [address] 02/22/2026 11:00 AM EDT Office Visit [facility] [address] [place] [address] [address] [place] [phone] Alonso Bae MD [address] [place] [address] 2 [place] [address] 07/17/2026 2:00 PM EDT Office Visit [facility] - Internal Medicine [address] [place] [phone] Ilya Gusman MD [address] [place] [phone] 07/19/2026 11:40 AM EDT Office Visit [facility] [address] [place] [address] Yesi Perez MD [address] [place] [address] documented as of this encounter Visit Diagnoses [...] documented as of this encounter Care Teams Bonding Agent Relationship Specialty Start Date End Date Ilya Gusman MD [address] [place] [address] [phone] PCP - General 05/14/17 [facility] 09/01/25 documented as of this encounter
--- OUTSIDE RECORDS SUMMARY | 2025-10-06 22:25 | XMS_ITS | Encounter Summary ---
Author Organization [facility] ystem Address [address] [place] [address] Phone Care Team Providers Care Breading Machine Tender Name Role Phone Ilya Gusman MD Primary Care Provider [phone] Encounter Details Date Type Department Care Team ([facility] Contact Info) Description 08/12/2024 Orders Only [facility] - Health Information Department [address] [place] [address] 215[address] Scan, No Provider Available [address] [place] [address] Dr. Eleazar [place] [phone] Social History Tobacco Use Types Packs/Day Years [...] Upcoming Encounters Date Type Department Care Team ([facility] Contact Info) Description 10/10/2025 10:30 AM EST Office Visit [facility] - Internal Medicine [address] [place] [phone] Ilya Gusman MD [address] [place] [phone] Christophe Dailey MD [address] [place] [phone] 01/18/2026 1:00 PM EST Office Visit [facility] [address] [place] [address] Porsha Marsh, PAPER FOLDING MACHINE OPERATOR [address] [place] [address] 02/22/2026 11:00 AM EDT Office Visit [facility] [address] [place] [address] [address] [place] [phone] Alonso Bae MD [address] [place] [address] [address] [place] [address] 07/17/2026 2:00 PM EDT Office Visit [facility] - Internal Medicine [address] [place] [address] [phone] Ilya Gusman MD [address] [place] [phone] 07/19/2026 11:40 AM EDT Office Visit [facility] [address] [place] [address] Yesi Perez MD [address] [place] [address] documented as of this encounter Procedures Procedure [...] documented as of this encounter Care Teams Breading Machine Tender Relationship Specialty Start Date End Date Ilya Gusman MD [address] [place] [address] [phone] PCP - General 05/14/17 [facility] 09/01/25 documented as of this encounter
--- OUTSIDE RECORDS SUMMARY | 2025-10-06 22:25 | XMS_ITS | Encounter Summary ---
Author Organization [facility] ystem Address [address] [place] [address] Phone Care Team Providers Care Intake Man Name Role Phone Ilya Gusman MD Primary Care Provider [phone] Encounter Details Date Type Department Care Team (Late Contact Info) Description 08/09/2024 Scanned Document [facility] - Health Information Department [address] [place] [address] Scan, No Provider Available [address] [place] [address] [place] [id number] <No scans attached> Social History Tobacco Use [...] Upcoming Encounters Date Type Department Care Team ([facility] Contact Info) Description 10/10/2025 10:30 AM EST Office Visit [facility] - Internal Medicine [address] [place] [phone] Ilya Gusman MD [address] [place] [phone] Christophe Dailey MD [address] [place] [address] [phone] 01/18/2026 1:00 PM EST Office Visit [facility] [address] [place] [address] Porsha Marsh, GENERAL MAINTENANCE HELPER [address] [place] [address] 02/22/2026 11:00 AM EDT Office Visit [facility] [address] [place] [address] [address] [place] [phone] Alonso Bae MD [address] [place] [address] [address] [place] [address] 07/17/2026 2:00 PM EDT Office Visit [facility] - Internal Medicine [address] [place] [phone] Ilya Gusman MD [address] [place] [phone] 07/19/2026 11:40 AM EDT Office Visit [facility] [address] [place] [address] Yesi Perez MD [address] [place] [address] documented as of this encounter Visit Diagnoses Not on filedocumented in this encounter Additional Health Concerns Infection Onset Date Last Indicated Resolved Time C difficile Rule-Out 11/01/2024 11/02/2024 024 9:43 AM EST Assessment Noted Time PHQ-9 Depression Total Score: 6 04/28/20 24 1:53 PM EDT documented as of this encounter Care Teams Intake Man Relationship Specialty Start Date End Date Ilya Gusman MD [address] [place] [address] [phone] PCP - General 05/14/17 [facility] 09/01/25 documented as of this encounter
--- OUTSIDE RECORDS SUMMARY | 2025-10-06 22:25 | XMS_ITS | Encounter Summary ---
Author Organization [facility] ystem Address [address] [place] [address] Phone Care Team Providers Care Calibration Checker Name Role Phone Ilya Gusman MD Primary Care Provider [phone] Encounter Details Date Type Department Care Team (Late st Contact Info) Description 03/10/2018 Procedure Pass [facility] Endoscopy [address] [place] [address] Social History Tobacco Use Types [...] 10/10/2025 10:30 AM EST Office Visit [facility] - Internal Medicine [address] [place] [phone] Ilya Gusman MD [address] [place] [phone] Christophe Dailey MD [address] [place] [phone] 01/18/2026 1:00 PM EST Office Visit [facility] 70 [facility] 1 [place] [address] Porsha Marsh, SHIP CONSTRUCTION TEACHER 70 [place] [address] 02/22/2026 11:00 AM EDT Office Visit [facility] [address] [place] [address] [address] [place] [phone] Alonso Bae MD [address] [place] [address] [address] [place] [address] 07/17/2026 2:00 PM EDT Office Visit [facility] - Internal Medicine [address] [place] [phone] Ilya Gusman MD [address] [place] [phone] 07/19/2026 11:40 AM EDT Office Visit [facility] [address] [place] [address] Yesi Perez MD [address] [place] [address] documented as of this encounter Visit Diagnoses [...] documented as of this encounter Care Teams Calibration Checker Relationship Specialty Start Date End Date Ilya Gusman MD [address] [place] [phone] PCP - General 05/14/17 [facility] 09/01/25 documented as of this encounter
--- OUTSIDE RECORDS SUMMARY | 2025-10-06 22:25 | XMS_ITS | Encounter Summary ---
Author Organization [facility] ystem Address [address] [place] [address] Phone Care Team Providers Care Bulk Pallet Builder Name Role Phone Ilya Gusman MD Primary Care Provider [phone] Encounter Details Date Type Department Care Team ([facility] Contact Info) Description 2024 Orders Only [facility] - Health Information Department [address] [place] [address] Scan, No Provider Available [address] [place] [address] Dr. Eleazar [place] [phone] Social History Tobacco Use Types Packs/Day Years [...] 10/10/2025 10:30 AM EST Office Visit [facility] - Internal Medicine [address] [place] [phone] Ilya Gusman MD [address] [place] [phone] Christophe Dailey MD [address] [place] [phone] 01/18/2026 1:00 PM EST Office Visit [facility] [address] [place] [address] Porsha Marsh, LATH HAND [address] [place] [address] 02/22/2026 11:00 AM EDT Office Visit [facility] [address] [place] [address] [address] [place] [phone] Alonso Bae MD [address] [place] [address] [address] [place] [address] 07/17/2026 2:00 PM EDT Office Visit [facility] - Internal Medicine [address] [place] [phone] Ilya Gusman MD [address] [place] [phone] 07/19/2026 11:40 AM EDT Office Visit [facility] [address] [place] [address] Yesi Perez MD [address] [place] [address] documented as of this encounter Procedures Procedure [...] documented as of this encounter Care Teams Bulk Pallet Builder Relationship Specialty Start Date End Date Ilya Gusman MD [address] [place] [address] [phone] PCP - General 05/14/17 [facility] 09/01/25 documented as of this encounter
--- OUTSIDE RECORDS SUMMARY | 2025-10-06 22:25 | XMS_ITS | Encounter Summary ---
Author Organization [facility] Address [address] [place] [address] Phone Care Team Providers Care Director University Name Role Phone Ilya Gusman MD Primary Care Provider [phone] Reason for Referral * Consultation (1 Month) - Closed Specialty Diagnoses / Procedures Referred By [place] t Referred To Contact Orthopedics Diagnoses Hand injury, left, initial encounter Ilya Gusman MD [address] [place] [phone] Phone: tel: fax: Tacho Faye MD [address] [place] [address] Phone: tel: fax: Referral ID Status Reason Start Date Expiration Date V isits Requested Visits Authorized [id number] Closed Specialty Services Required 07/13/2018 07/13/2019 12 12 Encounter Details Date Type Department Care Team ([facility] st Contact Info) Description 07/13/2018 Orders Only [address] [phone] Ilya Gusman MD [address] [place] [phone] Hand injury, left, initial encounter (Primary Dx) [...] Description 10/10/2025 10:30 AM EST Office Visit [facility] - Internal Medicine [address] [place] [phone] Ilya Gusman MD [address] [place] [phone] Christophe Dailey MD [address] [place] [phone] 01/18/2026 1:00 PM EST Office Visit [facility] [address] [address] Porsha Marsh, EPIC ANALYST 70 [place] [address] 02/22/2026 11:00 AM EDT Office Visit [facility] [address] [place] [phone] Alonso Bae MD [address] [place] [address] [address] [place] [address] 07/17/2026 2:00 PM EDT Office Visit [facility] - Internal Medicine [address] [place] [phone] Ilya Gusman MD [address] [place] [phone] 07/19/2026 11:40 AM EDT Office Visit [facility] [address] [place] [address] Yesi Perez MD 70 [place] [address] Scheduled Referrals Name Type Priority Associated Diagnoses Orde r Schedule Referral Orthopedic-[facility] Outpatient Referral Routine Hand injury, left, [...] as of this encounter Care Teams Director University Relationship Specialty Start Date End Date Ilya Gusman MD [address] [place] [phone] PCP - General 05/14/17 [facility] 09/01/25 documented as of this encounter
--- OUTSIDE RECORDS SUMMARY | 2025-10-06 22:25 | XMS_ITS | Encounter Summary ---
Author Organization [facility] Address [address] [place] [address] Care Team Providers Care Meteorologist In Charge Name Role Phone Solis Encarnacion MD Unavailable [phone] Ilya Gusman MD Primary Care Provider [phone] Encounter Details Date Type Department Care Team (Late st Contact Info) Description 12/01/2022 Lab [facility] One Orders Abou Moris Carrasco MD [address] [place] [address] Social History Tobacco Use Types Packs/Day Years [...] Negative Negative BG 12/03/2022 4:29 AM EST [facility] Comment:This EIA assay detec ts the most common Shiga toxin produced by E. coli 0157:H7 in addition to other serotypes. Stool STOOL SPECIMEN / Unknown 12/01/2022 2:47 AM EST 12/01/2022 1:27 PM EST Moris Carrasco MD MICROBIOLOGY - GENERAL OR DERABLES Final Result Performing Organization Address City/[facility]/ZIP Co de Phone Number [facility] [address] [place] [address], [place] [phone] * Culture, Stool (12/01/2022 2:47 AM EST) Culture No Salmonella,Shig bella,Campylobac ter,Aeromonas, Plesiomonas Isolated. Normal Stool Camila Present. BG 12/04/2022 7:11 AM EST [facility] Stool STOOL SPECIMEN / Unknown 12/01/2022 2:47 AM EST 12/01/2022 1:27 PM EST Moris Carrasco MD MICROBIOLOGY - GENERAL OR DERABLES Final Result Performing Organization Address [facility] Co de Phone Number [facility] [address] [place] [address], [place] [phone] documented in this encounter Visit Diagnoses Not [...] documented as of this encounter Care Teams Meteorologist In Charge Relationship Specialty Start Date End Date Ilya Gusman MD [address] [place] [address] PCP - General 02/12/24 Solis Encarnacion MD 70 [facility] 3 [place] [address] Cardiac Electrophysiology 04/24/2402/22 documented as of this encounter
--- OUTSIDE RECORDS SUMMARY | 2025-10-06 22:25 | XMS_ITS | Encounter Summary ---
Author Organization [facility] Address [address] [place] [address] Phone Care Team Providers Care Bar Helper Name Role Phone Ilya Gusman MD Primary Care Provider [phone] Reason for Visit * Reason Onset Date Comments Med Refill 10/22/2018 Encounter Details Date Type Department Care Team (Late st Contact Info) Description 10/22/2018 Refill [facility] - Internal Medicine [address] [place] [address] [phone] Ilya Gusman MD [address] [place] [phone] Med Refill Social History Tobacco Use [...] 10/22/2018 8:35 AM EST Oxycodone Pharmacy: [facility] DATE OF LAST REFILL? 10/08/18 FREQUENCY OF [...] Luz Maria Victor PA-C KIN ENC KIN PRESIDENT [employer] CEO [employer] reviewed on 10/22/2018 by Ian PICKETT and no red flags were noted Ian Pierson Refill Team, Lo[place] documented in this encounter Plan of Treatment Upcoming Encounters Date Type Department Care Team (Late st Contact Info) Description 10/10/2025 10:30 AM EST Office Visit [facility] - Internal Medicine [address] [place] [phone] Ilya Gusman MD [address] [place] [phone] Christophe Dailey MD [address] [place] [phone] 01/18/2026 1:00 PM EST Office Visit [facility] [address] [address] Porsha Marsh, TELECOMMUNICATION EQUIPMENT REPAIRER 70 [place] [address] 02/22/2026 11:00 AM EDT Office Visit [facility] [address] [facility] [address] [place] [address] Alonso Bae MD [address] [facility] [address] [place] [address] 07/17/2026 2:00 PM EDT Office Visit [facility] - Internal Medicine [address] [place] [phone] Ilya Gusman MD [address] [place] [phone] 07/19/2026 11:40 AM EDT Office Visit [facility] 70 [facility] 1 [place] [address] Yesi Perez MD 70 [place] [address] documented as of this encounter Visit Diagnoses [...] as of this encounter Care Teams Bar Helper Relationship Specialty Start Date End Date Ilya Gusman MD [address] [place] [phone] PCP - General 05/14/17 [facility] 09/01/25 documented as of this encounter
--- OUTSIDE RECORDS SUMMARY | 2025-10-06 22:25 | XMS_ITS | Encounter Summary ---
Author Organization [facility] ystem Address [address] [place] [address] Phone Care Team Providers Care Inside Sales Person Name Role Phone Ilya Gusman MD Primary Care Provider [phone] Encounter Details Date Type Department Care Team (Late Contact Info) Description 10/14/2018 Scanned Document [facility] - Health Information Department [address] [place] [address] Scan, No Provider Available [address] [place] [address] [place] [address] <No scans attached> Social History Tobacco Use [...] ([facility] Contact Info) Description 10/10/2025 10:30 AM EST Office Visit [facility] - Internal Medicine [address] [place] [phone] Ilya Gusman MD [address] [place] [phone] Christophe Dailey MD [address] [place] [phone] 01/18/2026 1:00 PM EST Office Visit [facility] [address] [place] [address] Porsha Marsh, DRIVE IN WAITER/WAITRESS [address] [place] [address] 02/22/2026 11:00 AM EDT Office Visit [facility] [address] [place] [address] [address] [place] [phone] Alonso Bae MD [address] [place] [address] [address] [place] [address] 07/17/2026 2:00 PM EDT Office Visit [facility] - Internal Medicine [address] [place] [phone] Ilya Gusman MD [address] [place] [phone] 07/19/2026 11:40 AM EDT Office Visit [facility] [address] [place] [address] Yesi Perez MD [address] [place] [address] documented as of this encounter Visit Diagnoses [...] of this encounter Care Teams Inside Sales Person Relationship Specialty Start Date End Date Ilya Gusman MD [address] [place] [phone] PCP - General 05/14/17 [facility] 09/01/25 documented as of this encounter
--- OUTSIDE RECORDS SUMMARY | 2025-10-06 22:25 | XMS_ITS | Encounter Summary ---
Author Organization [facility] ystem Address [address] [place] [address] Phone Care Team Providers Care Information And Data Architect Analyst Name Role Phone Ilya Gusman MD Primary Care Provider [phone] Encounter Details Date Type Department Care Team (Late Contact Info) Description 04/09/2018 Orders Only [facility] - Health Information Department [address] [place] [address] Scan, No Provider Available [address] [place] [address] [place] [address] Social History Tobacco Use Types Packs/Day Years [...] Visit [facility] - Internal Medicine [address] [place] [address] [phone] Ilya Gusman MD [address] [place] [phone] Christophe Dailey MD [address] [place] [phone] 01/18/2026 1:00 PM EST Office Visit [facility] [address] [place] [address] Porsha Marsh, SATELLITE COMMUNICATIONS ENGINEER 70 [place] [address] 02/22/2026 11:00 AM EDT Office Visit [facility] [address] [place] [address] [address] [place] [phone] Alonso Bae MD [address] [place] [address] [address] [place] [address] 07/17/2026 2:00 PM EDT Office Visit [facility] - Internal Medicine [address] [place] [phone] Ilya Gusman MD [address] [place] [phone] 07/19/2026 11:40 AM EDT Office Visit [facility] [address] [place] [address] Yesi Perez MD [address] [place] [address] documented as of this encounter Procedures Procedure Name Priority Date/Time Associated Diagnosis Comments DIABETES EYE EXAM Routine 04/02/2018 documented in this encounter Results * Diabetes Eye Exam (04/02/2018) us No Provider Available [facility] nal Result documented in this encounter Visit [...] documented as of this encounter Care Teams Information And Data Architect Analyst Relationship Specialty Start Date End Date Ilya Gusman MD [address] [place] [phone] PCP - General 05/14/17 [facility] 09/01/25 documented as of this encounter
--- OUTSIDE RECORDS SUMMARY | 2025-10-06 22:25 | XMS_ITS | Encounter Summary ---
Author Organization [facility] Address [address] [place] [address] Phone Care Team Providers Care Inserter Operator Name Role Phone Ilya Gusman MD Primary Care Provider [phone] Reason for Visit * Reason Comments Med Refill Encounter Details Date Type Department Care Team (Late Contact Info) Description 06/05/2024 Refill [facility] - Internal Medicine [address] [place] [address] [phone] Ilya Gusman MD [address] [place] [phone] Med Refill Social History Tobacco Use [...] [facility] [address] [place] [phone] Ilya Gusman MD [address] [place] [phone] Christophe Dailey MD [address] [place] [phone] 01/18/2026 1:00 PM EST Office Visit [facility] [address] [place] [address] Porsha Marsh, MARILIA [address] [place] [address] 02/22/2026 11:00 AM EDT Office Visit [facility] [address] [place] [address] [address] [place] [phone] Alonso Bae MD [address] [place] [address] [address] [place] [address] 07/17/2026 2:00 PM EDT Office Visit [facility] - Internal Medicine [address] [place] [phone] Ilya Gusman MD [address] [place] [phone] 07/19/2026 11:40 AM EDT Office Visit [facility] [address] [place] [address] Yesi Perez MD [address] [place] [address] documented as of this encounter Visit Diagnoses Not on filedocumented in this encounter Additional Health Concerns Infection Onset Date Last Indicated Resolved Time C difficile Rule-Out 11/01/2024 11/02/202410/2 024 9:43 AM EST Assessment Noted Time PHQ-9 Depression Total Score: 6 04/28/20 24 1:53 PM EDT documented as of this encounter Care Teams Inserter Operator Relationship Specialty Start Date End Date Ilya Gusman MD [address] [place] [phone] PCP - General 05/14/17 [facility] 09/01/25 documented as of this encounter
--- OUTSIDE RECORDS SUMMARY | 2025-10-06 22:25 | XMS_ITS | Encounter Summary ---
Author Organization [facility] ystem Address [address] [place] [address] Phone Care Team Providers Care Loan Documentation Specialist Name Role Phone Ilya Gusman MD Primary Care Provider [phone] Encounter Details Date Type Department Care Team (Late Contact Info) Description 07/16/2024 Scanned Document [facility] - Health Information Department [address] [place] [address] Scan, No Provider Available [address] [place] [address] [place] [address] <No scans attached> Social History Tobacco Use [...] Encounters Date Type Department Care Team ([facility] Contact Info) Description 10/10/2025 10:30 AM EST Office Visit [facility] - Internal Medicine [address] [place] [phone] Ilya Gusman MD [address] [place] [phone] Christophe Dailey MD [address] [place] [address] [phone] 01/18/2026 1:00 PM EST Office Visit [facility] [address] [place] [address] Porsha Marsh, BRICK CATCHER [address] [place] [address] 02/22/2026 11:00 AM EDT Office Visit [facility] [address] [place] [address] [address] [place] [phone] Alonso Bae MD [address] [place] [address] [address] [place] [address] 07/17/2026 2:00 PM EDT Office Visit [facility] - Internal Medicine [address] [place] [phone] Ilya Gusman MD [address] [place] [phone] 07/19/2026 11:40 AM EDT Office Visit [facility] [address] [place] [address] Yesi Perez MD [address] [place] [address] documented as of this encounter Visit Diagnoses Not on filedocumented in this encounter Additional Health Concerns Infection Onset Date Last Indicated Resolved Time C difficile Rule-Out 11/01/2024 11/02/2024 024 9:43 AM EST Assessment Noted Time PHQ-9 Depression Total Score: 6 04/28/20 24 1:53 PM EDT documented as of this encounter Care Teams Loan Documentation Specialist Relationship Specialty Start Date End Date Ilya Gusman MD [address] [place] [phone] PCP - General 05/14/17 [facility] 09/01/25 documented as of this encounter
--- OUTSIDE RECORDS SUMMARY | 2025-10-06 22:25 | XMS_ITS | Encounter Summary ---
Author Organization [facility] ystem Address [address] [place] [address] Phone Care Team Providers Care Sap Pi Architect Name Role Phone Ilya Gusman MD Primary Care Provider [phone] Encounter Details Date Type Department Care Team (Late Contact Info) Description 06/04/2024 Scanned Document [facility] - Health Information Department [address] [place] [address] Scan, No Provider Available [address] [place] [address] [place] [address] <No scans attached> Social History Tobacco Use [...] 10/10/2025 10:30 AM EST Office Visit [facility] - Internal Medicine [address] [place] [phone] Ilya Gusman MD [address] [place] [phone] Christophe Dailey MD [address] [place] [address] [phone] 01/18/2026 1:00 PM EST Office Visit [facility] [address] [place] [address] Porsha Marsh, FUR PULLER [address] [place] [address] 02/22/2026 11:00 AM EDT Office Visit [facility] [address] [place] [address] [address] [place] [phone] Alonso Bae MD [address] [place] [address] [address] [place] [address] 07/17/2026 2:00 PM EDT Office Visit [facility] - Internal Medicine [address] [place] [phone] Ilya Gusman MD [address] [place] [phone] 07/19/2026 11:40 AM EDT Office Visit [facility] [address] [place] [address] Yesi Perez MD [address] [place] [address] documented as of this encounter Visit Diagnoses Not on filedocumented in this encounter Additional Health Concerns Infection Onset Date Last Indicated Resolved Time C difficile Rule-Out 11/01/2024 11/02/2024 024 9:43 AM EST Assessment Noted Time PHQ-9 Depression Total Score: 6 04/28/20 24 1:53 PM EDT documented as of this encounter Care Teams Sap Pi Architect Relationship Specialty Start Date End Date Ilya Gusman MD [address] [place] [address] [phone] PCP - General 05/14/17 [facility] 09/01/25 documented as of this encounter
--- OUTSIDE RECORDS SUMMARY | 2025-10-06 22:25 | XMS_ITS | Encounter Summary ---
[facility] Organization [facility] Address [address] [place] [address] Phone Care Team Providers Care Automotive Refinish Technician Name Role Phone Ilya Gusman MD Primary Care Provider [phone] Encounter Details Date Type Department Care Team (Late Contact Info) Description 07/29/2018 Scanned Document [facility] - Health Information Department [address] [place] [place] [address] Scan, No Provider Available [address] [place] [address] [place] [address] <No scans attached> Social History Tobacco Use [...] [facility] - Internal Medicine [address] [place] [phone] Ilya Gusman MD [address] [place] [phone] Christophe Dailey MD [address] [place] [phone] 01/18/2026 1:00 PM EST Office Visit [facility] [address] [place] [address] Porsha Marsh, EXTRUSION PRESS SUPERVISOR [address] [place] [address] 02/22/2026 11:00 AM EDT Office Visit [facility] [address] [place] [address] [address] [place] [phone] Alonso Bae MD [address] [place] [address] 2 [place] [address] 07/17/2026 2:00 PM EDT Office Visit [facility] - Internal Medicine [address] [place] [phone] Ilya Gusman MD [address] [place] [phone] 07/19/2026 11:40 AM EDT Office Visit [facility] [address] [place] [address] Yesi Perez MD [address] [place] [address] documented as of this encounter Visit Diagnoses [...] as of this encounter Care Teams Automotive Refinish Technician Relationship Specialty Start Date End Date Ilya Gusman MD [address] [place] [address] [phone] PCP - General 05/14/17 [facility] 09/01/25 documented as of this encounter
--- OUTSIDE RECORDS SUMMARY | 2025-10-06 22:25 | XMS_ITS | Encounter Summary ---
Author Organization [facility] Address [address] [place] [address] Phone Care Team Providers Care Four Roll Calender Operator Name Role Phone Ilya Gusman MD Primary Care Provider [phone] Reason for Visit * Reason Onset Date Comments Med Refill 08/02/2018 Encounter Details Date Type Department Care Team (Late st Contact Info) Description 08/02/2018 Refill [facility] - Orthopedics [address] [place] [address] [phone] Roseanne Cruz, GEOVANNI [address] [place] [address] Med Refill Social History Tobacco Use Types [...] [facility] - Internal Medicine [address] [place] [phone] Ilya Gusman MD [address] [place] [phone] Christophe Dailey MD [address] [place] [phone] 01/18/2026 1:00 PM EST Office Visit [facility] [address] [place] [address] Porsha Marsh, HOB MILL OPERATOR [address] [place] [address] 02/22/2026 11:00 AM EDT Office Visit [facility] [address] [place] [address] [address] [place] [phone] Alonso Bae MD [address] [place] [address] [address] [place] [address] 07/17/2026 2:00 PM EDT Office Visit [facility] - Internal Medicine [address] [place] [phone] Ilya Gusman MD [address] [place] [phone] 07/19/2026 11:40 AM EDT Office Visit [facility] [address] [place] [address] Yesi Perez MD [address] [place] [address] documented as of this encounter Visit Diagnoses [...] documented as of this encounter Care Teams Four Roll Calender Operator Relationship Specialty Start Date End Date Ilya Gusman MD [address] [place] [phone] PCP - General 05/14/17 [facility] 09/01/25 documented as of this encounter
--- OUTSIDE RECORDS SUMMARY | 2025-10-06 22:25 | XMS_ITS | Encounter Summary ---
Author Organization [facility] ystem Address [address] [place] [address] Phone Care Team Providers Care Electrical Instrumentation Technician Name Role Phone Ilya Gusman MD Primary Care Provider [phone] Encounter Details Date Type Department Care Team (Late Contact Info) Description 06/04/2024 Scanned Document [facility] - Health Information Department [address] [place] [address] Scan, No Provider Available [address] [place] [address] [place] [address] <No scans attached> Social History Tobacco Use [...] Upcoming Encounters Date Type Department Care Team ([facility] Contact Info) Description 10/10/2025 10:30 AM EST Office Visit [facility] - Internal Medicine [address] [place] [phone] Ilya Gusman MD [address] [place] [phone] Christophe Dailey MD [address] [place] [address] [phone] 01/18/2026 1:00 PM EST Office Visit [facility] [address] [place] [address] Porsha Marsh, PRE K TEACHER [address] [place] [address] 02/22/2026 11:00 AM EDT Office Visit [facility] [address] [place] [address] [address] [place] [phone] Alonso Bae MD [address] [place] [address] [address] [place] [address] 07/17/2026 2:00 PM EDT Office Visit [facility] - Internal Medicine [address] [place] [phone] Ilya Gusman MD [address] [place] [phone] 07/19/2026 11:40 AM EDT Office Visit [facility] [address] [place] [address] Yesi Perez MD [address] [place] [address] 20012 documented as of this encounter Visit Diagnoses Not on filedocumented in this encounter Additional Health Concerns Infection Onset Date Last Indicated Resolved Time C difficile Rule-Out 11/01/2024 11/02/2024 024 9:43 AM EST Assessment Noted Time PHQ-9 Depression Total Score: 6 04/28/20 24 1:53 PM EDT documented as of this encounter Care Teams Electrical Instrumentation Technician Relationship Specialty Start Date End Date Ilya Gusman MD [address] [place] [address] [phone] PCP - General 05/14/17 [facility] 09/01/25 documented as of this encounter
--- OUTSIDE RECORDS SUMMARY | 2025-10-06 22:25 | XMS_ITS | Encounter Summary ---
Author Organization [facility] ystem Address [address] [place] [address] Phone Care Team Providers Care Gravel Inspector Name Role Phone Ilya Gusman MD Primary Care Provider [phone] Encounter Details Date Type Department Care Team (Late Contact Info) Description 08/20/2018 Orders Only [facility] - Health Information Department [address] [place] [address] Scan, No Provider Available [address] [place] [address] [place] [address] Social History Tobacco Use Types Packs/Day Years [...] 10:30 AM EST Office Visit [facility] - Internal Medicine [address] [place] [phone] Ilya Gusman MD [address] [place] [phone] Christophe Dailey MD [address] [place] [phone] 01/18/2026 1:00 PM EST Office Visit [facility] [address] [place] [address] Porsha Marsh, HAND SPINNER [address] [place] [address] 02/22/2026 11:00 AM EDT Office Visit [facility] [address] [place] [address] [address] [place] [phone] Alonso Bae MD [address] [place] [address] [address] [place] [address] 07/17/2026 2:00 PM EDT Office Visit [facility] - Internal Medicine [address] [place] [phone] Ilya Gusman MD [address] [place] [phone] 07/19/2026 11:40 AM EDT Office Visit [facility] [address] [place] [address] Yesi Perez MD [address] [place] [address] documented as of this encounter Procedures Procedure [...] documented as of this encounter Care Teams Gravel Inspector Relationship Specialty Start Date End Date Ilya Gusman MD [address] [place] [phone] PCP - General 05/14/17 [facility] 09/01/25 documented as of this encounter
--- OUTSIDE RECORDS SUMMARY | 2025-10-06 22:25 | XMS_ITS | Encounter Summary ---
Author Organization [facility] Address [address] [place] [address] Phone Care Team Providers Care Union Carpenter Name Role Phone Ilya Gusman MD Primary Care Provider [phone] Encounter Details Date Type Department Care Team (Late Contact Info) Description 07/13/2018 Scanned Document [facility] - Health Information Department [address] [place] [address] Scan, No Provider Available [address] [place] [address] [place] [address] <No scans attached> Social History Tobacco Use [...] Visit [facility] - Internal Medicine [address] [place] [phone] Ilya Gusman MD [address] [place] [phone] Christophe Dailey MD [address] [place] [phone] 01/18/2026 1:00 PM EST Office Visit [facility] [address] [place] [address] Porsha Marsh, CHIEF HOSPITAL ADMINISTRATOR [address] [place] [address] 02/22/2026 11:00 AM EDT Office Visit [facility] [address] [place] [address] [address] [place] [phone] Alonso Bae MD [address] [place] [address] 2 [place] [address] 07/17/2026 2:00 PM EDT Office Visit [facility] - Internal Medicine [address] [place] [phone] Ilya Gusman MD [address] [place] [phone] 07/19/2026 11:40 AM EDT Office Visit [facility] [address] [place] [address] Yesi Perez MD [address] [place] [address] 58718 documented as of this encounter Visit Diagnoses [...] documented as of this encounter Care Teams Union Carpenter Relationship Specialty Start Date End Date Ilya Gusman MD [address] [place] [address] [phone] PCP - General 05/14/17 [facility] 09/01/25 documented as of this encounter
--- OUTSIDE RECORDS SUMMARY | 2025-10-06 22:26 | XMS_ITS | Encounter Summary ---
Author Organization [facility] ystem Address [address] [place] [address] Phone Care Team Providers Care Stretcher And Drier Name Role Phone Ilya Gusman MD Primary Care Provider [phone] Encounter Details Date Type Department Care Team ([facility] Contact Info) Description 06/07/2024 Orders Only [facility] [address] [place] [address] Scan, No Provider Available [address] [place] [address] Dr. Eleazar [place] [phone] Social History Tobacco Use Types Packs/Day Years [...] Team ([facility] Contact Info) Description 10/10/2025 10:30 AM EST [facility] [address] [place] [phone] Ilya Gusman MD [address] [place] [phone] Christophe Dailey MD [address] [place] [phone] 01/18/2026 1:00 PM EST Office Visit [facility] [address] [place] [address] Porsha Marsh, REPAIR TECHNICIAN [address] [place] [address] [phone] 02/22/2026 11:00 AM EDT Office Visit [facility] [address] [place] [address] [address] [place] [phone] Alonso Bae MD [address] [place] [address] [address] [place] [address] 07/17/2026 2:00 PM EDT [facility] [address] [place] [phone] Ilya Gusman MD [address] [place] [phone] 07/19/2026 11:40 AM EDT Office Visit [facility] [address] [place] [address] Yesi Perez MD [address] [place] [address] documented as of this encounter Procedures Procedure [...] Negative Not Detected, Negative, Non-reacti ve [facility]: [facility] Nasopharyngeal (Nasopharynx) Historical Provider LAB MICROBIOLOGY - GENERA L ORDERABLES Final Result Performing Organization Address City/State/[facility] Co de Phone Number [facility]: [facility] [address] [place] [address], [place] [phone] documented in this encounter Visit Diagnoses Not on filedocumented in this encounter Additional Health Concerns Infection Onset Date Last Indicated Resolved Time C difficile Rule-Out 11/01/2024 11/02/2024 024 9:43 AM EST Assessment Noted Time PHQ-9 Depression Total Score: 6 04/28/20 24 1:53 PM EDT documented as of this encounter Care Teams Stretcher And Drier Relationship Specialty Start Date End Date Ilya Gusman MD [address] [place] [address] [phone] PCP - General 05/14/17 [facility] 09/01/25 documented as of this encounter
--- OUTSIDE RECORDS SUMMARY | 2025-10-06 22:26 | XMS_ITS | Encounter Summary ---
Author Organization [facility] ystem Address [address] [place] [address] Phone Care Team Providers Care Supervisor Line Department Name Role Phone Ilya Gusman MD Primary Care Provider [phone] Encounter Details Date Type Department Care Team ([facility] Contact Info) Description 06/14/[address] [facility] - Health Information Department [address] [place] [address] 620[address] Scan, No Provider Available [address] [place] [address] [address] Eleazar [place] [phone] Social History Tobacco Use Types Packs/Day Years [...] Encounters Date Type Department Care Team ([facility] Contact Info) Description 10/10/2025 10:30 AM EST Office Visit [facility] - Internal Medicine [address] [place] [phone] Ilya Gusman MD [address] [place] [phone] Christophe Dailey MD [address] [place] [phone] 01/18/2026 1:00 PM EST Office Visit [facility] [address] [place] [address] Porsha Marsh, FLOOR MOLDER [address] [place] [address] 02/22/2026 11:00 AM EDT Office Visit [facility] [address] [place] [address] [address] [place] [phone] Alonso Bae MD [address] [place] [address] [address] [place] [address] 07/17/2026 2:00 PM EDT Office Visit [facility] - Internal Medicine [address] [place] [phone] Ilya Gusman MD [address] [place] [phone] 07/19/2026 11:40 AM EDT Office Visit [address] [address] Yesi Perez MD [address] [place] [address]21 documented as of this encounter Procedures Procedure [...] as of this encounter Care Teams Supervisor Line Department Relationship Specialty Start Date End Date Ilya Gusman MD [address] [place] [phone] PCP - General 05/14/17 [facility] 09/01/25 documented as of this encounter
--- OUTSIDE RECORDS SUMMARY | 2025-10-06 22:26 | XMS_ITS | Encounter Summary ---
Author Organization [facility] ystem Address [address] [place] [address] Phone Care Team Providers Care Casting House Worker Name Role Phone Ilya Gusman MD Primary Care Provider [phone] Encounter Details Date Type Department Care Team ([facility] Contact Info) Description 06/25/2024 Orders Only [facility] - Health Information Department [address] [place] [address] 9[address] Scan, No Provider Available [address] [place] [address] [address]. Eleazar [place] [phone] Social History Tobacco Use Types Packs/Day Years [...] Upcoming Encounters Date Type Department Care Team ([facility] Contact Info) Description 10/10/2025 10:30 AM EST Office Visit [facility] - Internal Medicine [address] [place] [phone] Ilya Gusman MD [address] [place] [phone] Christophe Dailey MD [address] [place] [phone] 01/18/2026 1:00 PM EST Office Visit [facility] [address] [place] [address] Porsha Marsh, WOOL HANDLER [address] [place] [address] 02/22/2026 11:00 AM EDT Office Visit [facility] [address] [place] [address] [address] [place] [phone] Alonso Bae MD [address] [place] [address] [address] [place] [address] 07/17/2026 2:00 PM EDT Office Visit [facility] - Internal Medicine [address] [place] [address] [phone] Ilya Gusman MD [address] [place] [phone] 07/19/2026 11:40 AM EDT Office Visit [address] [address] Yesi Perez MD [address] [place] [address] documented as of this encounter Procedures Procedure [...] as of this encounter Care Teams Casting House Worker Relationship Specialty Start Date End Date Ilya Gusman MD [address] [place] [address] [phone] PCP - General 05/14/17 [facility] 09/01/25 documented as of this encounter
--- OUTSIDE RECORDS SUMMARY | 2025-10-06 22:26 | XMS_ITS | Encounter Summary ---
Author Organization [facility] ystem Address [address] [place] [address] Phone Care Team Providers Care Patient Services Rep Name Role Phone Ilya Gusman MD Primary Care Provider Encounter Details Date Type Department Care Team (Late st Contact Info) Description 07/16/2021 Scanned Document [facility] - Health Information Department [address] [place], [place] [phone] Scan, No Provider Available [address] [facility] [place] [address] <No scans attached> Social History Tobacco Use [...] [facility] - Internal Medicine [address] [place] [phone] Ilya Gusman MD [address] [place] [phone] Christophe Dailey MD [address] [place] [phone] 01/18/2026 1:00 PM EST Office Visit [facility] [address] [place] [address] Porsha Marsh, STEAMFITTER APPRENTICE [address] [place] [address] 02/22/2026 11:00 AM EDT Office Visit [facility] [address] [place] [address] [address] [place] [phone] Alonso Bae MD [address] [place] [address] [address] [place] [address] 07/17/2026 2:00 PM EDT Office Visit [facility] - Internal Medicine [address] [place] [phone] Ilya Gusman MD [address] [place] [phone] 07/19/2026 11:40 AM EDT Office Visit [facility] [address] [place] [address] Yesi Perez MD [address] [place] [address] documented as of this encounter Visit Diagnoses [...] documented as of this encounter Care Teams Patient Services Rep Relationship Specialty Start Date End Date Ilya Gusman MD [address] [place] [phone] PCP - General 05/14/17 [facility] 09/01/25 documented as of this encounter
--- OUTSIDE RECORDS SUMMARY | 2025-10-06 22:26 | XMS_ITS | Encounter Summary ---
Author Organization [facility] ystem Address [address] [place] [address] Phone Care Team Providers Care High School Assistant Football Coach Name Role Phone Ilya Gusman MD Primary Care Provider [phone] Encounter Details Date Type Department Care Team (Late st Contact Info) Description 06/22/2021 Scanned Document [facility] - Health Information Department [address] [place], [place] [phone] Scan, No Provider Available [address] [facility] [place] [address] <No scans attached> Social History Tobacco Use [...] 10/10/2025 10:30 AM EST Office Visit [facility] - Internal Medicine [address] [place] [phone] Ilya Gusman MD [address] [place] [phone] Christophe Dailey MD [address] [place] [phone] 01/18/2026 1:00 PM EST Office Visit [facility] [address] [place] [address] Porsha Marsh, ELECTRONIC PREPRESS OPERATOR [address] [place] [address] 02/22/2026 11:00 AM EDT Office Visit [facility] [address] [place] [address] [address] [place] [phone] Alonso Bae MD [address] [place] [address] [address] [place] [address] 07/17/2026 2:00 PM EDT Office Visit [facility] - Internal Medicine [address] [place] [phone] Ilya Gusman MD [address] [place] [phone] 07/19/2026 11:40 AM EDT Office Visit [facility] [address] [place] [address] Yesi Perez MD 70 [place] [address] documented as of this encounter Visit Diagnoses [...] documented as of this encounter Care Teams High School Assistant Football Coach Relationship Specialty Start Date End Date Ilya Gusman MD [address] [place] [address] [phone] PCP - General 05/14/17 [facility] 09/01/25 documented as of this encounter
--- OUTSIDE RECORDS SUMMARY | 2025-10-06 22:26 | XMS_ITS | Encounter Summary ---
Author Organization [facility] ystem Address [address] [place] [address] Phone Care Team Providers Care Sound Assistant Name Role Phone Ilya Gusman MD Primary Care Provider [phone] Encounter Details Date Type Department Care Team (Late Contact Info) Description 07/05/2024 Scanned Document [facility] - Health Information Department [address] [place] [phone] Scan, No Provider Available [address] [place] [address] [place] [address] <No scans attached> Social History Tobacco Use [...] Upcoming Encounters Date Type Department Care Team ([facility] Contact Info) Description 10/10/2025 10:30 AM EST Office Visit [facility] - Internal Medicine [address] [place] [phone] Ilya Gusman MD [address] [place] [phone] Christophe Dailey MD [address] [place] [address] [phone] 01/18/2026 1:00 PM EST Office Visit [facility] [address] [place] [address] Porsha Marsh, HEEL TRIMMER [address] [place] [address] 02/22/2026 11:00 AM EDT Office Visit [facility] [address] [place] [address] [address] [place] [phone] Alonso Bae MD [address] [place] [address] [address] [place] [address] 07/17/2026 2:00 PM EDT Office Visit [facility] - Internal Medicine [address] [place] [phone] Ilya Gusman MD [address] [place] [phone] 07/19/2026 11:40 AM EDT Office Visit [facility] [address] [place] [address] Yesi Perez MD [address] [place] [address] documented as of this encounter Visit Diagnoses Not on filedocumented in this encounter Additional Health Concerns Infection Onset Date Last Indicated Resolved Time C difficile Rule-Out 11/01/2024 11/02/2024 024 9:43 AM EST Assessment Noted Time PHQ-9 Depression Total Score: 6 04/28/20 24 1:53 PM EDT documented as of this encounter Care Teams Sound Assistant Relationship Specialty Start Date End Date Ilya Gusman MD [address] [place] [address] [phone] PCP - General 05/14/17 [facility] 09/01/25 documented as of this encounter
--- OUTSIDE RECORDS SUMMARY | 2025-10-06 22:26 | XMS_ITS | Encounter Summary ---
Author Organization [facility] ystem Address [address] [place] [address] Phone Care Team Providers Care Company Tanker Truck Driver Name Role Phone Ilya Gusman MD Primary Care Provider [phone] Encounter Details Date Type Department Care Team ([facility] Contact Info) Description 06/09/2024 Orders Only [facility] - Health Information Department [address] [place] [phone] Scan, No Provider Available [address] [place] [address] [place] [phone] Social History Tobacco Use Types Packs/Day Years [...] [facility] [address] [place] [address] [phone] Ilya Gusman MD [address] [place] [phone] Christophe Dailey MD [address] [place] [address] [phone] 01/18/2026 1:00 PM EST Office Visit [facility] [address] [place] [address] Porsha Marsh, SALES PROFESSIONAL BILINGUAL [address] [place] [address] 02/22/2026 11:00 AM EDT Office Visit [facility] [address] [place] [address] [address] [place] [phone] Alonso Bae MD [address] [place] [address] [address] [place] [address] 07/17/2026 2:00 PM EDT Office Visit [facility] - Internal Medicine [address] [place] [address] [phone] Ilya Gusman MD [address] [place] [phone] 07/19/2026 11:40 AM EDT Office Visit [facility] [address] [place] [address] Yesi Perez MD [address] [place] [address] documented as of this encounter Procedures Procedure [...] documented as of this encounter Care Teams Company Tanker Truck Driver Relationship Specialty Start Date End Date Ilya Gusman MD [address] [place] [phone] PCP - General 05/14/17 [facility] 09/01/25 documented as of this encounter
--- OUTSIDE RECORDS SUMMARY | 2025-10-06 22:26 | XMS_ITS | Encounter Summary ---
[facility] Organization [facility] Address [address] [place] [address] Phone Care Team Providers Care Manual Equipment Mechanic Name Role Phone Ilya Gusman MD Primary Care Provider [phone] Reason for Referral * Consultation (1 Month) - Closed Specialty Diagnoses / Procedures Referred By London blankenship Referred To Contact Orthopedics Diagnoses Left knee injury, initial encounter Ilya Gusman MD [address] [place] [phone] Phone: tel: fax: Tc Story MD [address] [place] [address] Phone: tel: fax: Referral ID Status Reason Start Date Expiration Date V isits Requested Visits Authorized [id number] Closed Specialty Services Required 02/23/2018 02/24/2019 12 12 Encounter Details Date Type Department Care Team (Late st Contact Info) Description 02/23/2018 Orders Only [address] [phone] Ilya Gusman MD [address] [place] [phone] Left knee injury, initial encounter (Primary Dx) [...] 10:30 AM EST Office Visit [facility] - Internal Medicine [address] [place] [phone] Ilya Gusman MD [address] [place] [phone] Christophe Dailey MD [address] [place] [address] [phone] 01/18/2026 1:00 PM EST Office Visit [facility] [address] [address] Porsha Marsh, FILLING STATION EQUIPMENT MECHANIC 70 [place] [address] 02/22/2026 11:00 AM EDT Office Visit [facility] [address] [place] [phone] Alonso Bae MD [facility] [address] [place] [address] 07/17/2026 2:00 PM EDT Office Visit [facility] - Internal Medicine [address] [place] [phone] Ilya Gusman MD [address] [place] [phone] 07/19/2026 11:40 AM EDT Office Visit [facility] [address] [address] Yesi Perez MD 70 [place] [address] Scheduled Referrals Name Type Priority Associated Diagnoses Orde r Schedule Referral Orthopedic-[facility] Outpatient Referral Routine Left knee injury, initial [...] documented as of this encounter Care Teams Manual Equipment Mechanic Relationship Specialty Start Date End Date Ilya Gusman MD [address] [place] [phone] PCP - General 05/14/17 [facility] 09/01/25 documented as of this encounter
--- OUTSIDE RECORDS SUMMARY | 2025-10-06 22:26 | XMS_ITS | Encounter Summary ---
Author Organization [facility] Address [address] [place] [address] Phone Care Team Providers Care Delivery Technician Name Role Phone Ilya Gusman MD Primary Care Provider [phone] Reason for Visit * Reason Comments Med Refill Encounter Details Date Type Department Care Team (Late st Contact Info) Description 10/03/2018 Refill [facility] - Endocrinology [address] [place] [phone] Luz Maria Victor, FARRAH [address] [place] [phone] Med Refill Social History Tobacco Use Types [...] Visit [facility] - Internal Medicine [address] [place] [phone] Ilya Gusman MD [address] [place] [address] [phone] Christophe Dailey MD [address] [place] [address] [phone] 01/18/2026 1:00 PM EST Office Visit [facility] [address] [facility] [address] [place] [address] Porsha Marsh, DROP PRESS HAND [address] [place] [address] 02/22/2026 11:00 AM EDT Office Visit [facility] [address] [place] [address] [address] [place] [phone] Alonso Bae MD [address] [place] [address] [address] [place] [address] 07/17/2026 2:00 PM EDT Office Visit [facility] - Internal Medicine [address] [place] [phone] Ilya Gusman MD [address] [place] [address] [phone] 07/19/2026 11:40 AM EDT Office Visit [facility] [address] [address] Yesi Perez MD 70 [place] [address] documented as of this encounter Visit Diagnoses [...] as of this encounter Care Teams Delivery Technician Relationship Specialty Start Date End Date Ilya Gusman MD [address] [place] [phone] PCP - General 05/14/17 [facility] 09/01/25 documented as of this encounter
--- OUTSIDE RECORDS SUMMARY | 2025-10-06 22:26 | XMS_ITS | Encounter Summary ---
Author Organization [facility] ystem Address [address] [place] [address] Phone Care Team Providers Care Pulmonology Physician Name Role Phone Ilya Gusman MD Primary Care Provider [phone] Encounter Details Date Type Department Care Team (Late st Contact Info) Description 06/27/2021 Orders Only [facility] - Health Information Department [address] [place] [address] Scan, No Provider Available [address] [facility] [place] [address] Social History Tobacco Use Types Packs/Day Years [...] Visit [facility] - Internal Medicine [address] [place] [phone] Ilya Gusman MD [address] [place] [phone] Christophe Dailey MD [address] [place] [phone] 01/18/2026 1:00 PM EST Office Visit [facility] [address] [place] [address] Porsha Marsh, SAND CUTTER [address] [place] [address] 02/22/2026 11:00 AM EDT Office Visit [facility] [address] [place] [address] [address] [place] [phone] Alonso Bae MD [address] [place] [address] [address] [place] [address] 07/17/2026 2:00 PM EDT Office Visit [facility] - Internal Medicine [address] [place] [phone] Ilya Gusman MD [address] [place] [phone] 07/19/2026 11:40 AM EDT Office Visit [facility] [address] [place] [address] Yesi Perez MD [address] [place] [address] documented as of this encounter Procedures Procedure [...] documented as of this encounter Care Teams Pulmonology Physician Relationship Specialty Start Date End Date Ilya Gusman MD [address] [place] [phone] PCP - General 05/14/17 [facility] 09/01/25 documented as of this encounter
--- OUTSIDE RECORDS SUMMARY | 2025-10-06 22:26 | XMS_ITS | Encounter Summary ---
Author Organization [facility] Address [address] [place] [address] Phone Care Team Providers Care Clerk Secretary Name Role Phone Ilya Gusman MD Primary Care Provider [phone] Reason for Visit * Reason Onset Date Comments Med Refill 08/08/2021 Encounter Details Date Type Department Care Team (Late st Contact Info) Description 08/08/2021 Refill [facility] - Internal Medicine [address] [place] [address] [phone] Ilya Gusman MD [address] [place] [phone] Med Refill Social History Tobacco Use [...] AM Ilya Gusman MD LNG IM LNG Ian Ramos Refill Team, Loft documented in this encounter Plan of Treatment Upcoming Encounters Date Type Department Care Team (Late st Contact Info) Description 10/10/2025 10:30 AM EST Office Visit [facility] - Internal Medicine [address] [place] [phone] Ilya Gusman MD [address] [place] [address] [phone] Christophe Dailey MD [address] [place] [address] [phone] 01/18/2026 1:00 PM EST Office Visit [facility] [address] [address] Porsha Marsh, DATABASE DESIGN ANALYST 70 [place] [address] 02/22/2026 11:00 AM EDT Office Visit [facility] [address] [place] [address] [address] [place] [address] Alonso Bae MD [address] [facility] [address] [place] [address] 07/17/2026 2:00 PM EDT Office Visit [facility] - Internal Medicine [address] [place] [phone] Ilya Gusman MD [address] [place] [phone] 07/19/2026 11:40 AM EDT Office Visit [facility] 70 [facility] 1 [place] [address] Yesi Perez MD 70 [place] [address] documented as of this encounter Visit Diagnoses [...] documented as of this encounter Care Teams Clerk Secretary Relationship Specialty Start Date End Date Ilya Gusman MD [address] [place] [phone] PCP - General 05/14/17 [facility] 09/01/25 documented as of this encounter
--- OUTSIDE RECORDS SUMMARY | 2025-10-06 22:26 | XMS_ITS | Encounter Summary ---
Author Organization [facility] ystem Address [address] [place] [address] Phone Care Team Providers Care Court Usher Name Role Phone Ilya Gusman MD Primary Care Provider [phone] Encounter Details Date Type Department Care Team (Late Contact Info) Description 09/29/2018 Scanned Document [facility] - Health Information Department [address] [place] [address] Scan, No Provider Available [address] [place] [address] [place] [address] <No scans attached> Social History Tobacco Use [...] Team ([facility] Contact Info) Description 10/10/2025 10:30 AM EST Office Visit [facility] - Internal Medicine [address] [place] [phone] Ilya Gusman MD [address] [place] [phone] Christophe Dailey MD [address] [place] [phone] 01/18/2026 1:00 PM EST Office Visit [facility] [address] [place] [address] Porsha Marsh, DENTIST ATTENDANT [address] [place] [address] 02/22/2026 11:00 AM EDT Office Visit [facility] [address] [place] [address] [address] [place] [phone] Alonso Bae MD [address] [place] [address] [address] [place] [address] 07/17/2026 2:00 PM EDT Office Visit [facility] - Internal Medicine [address] [place] [phone] Ilya Gusman MD [address] [place] [phone] 07/19/2026 11:40 AM EDT Office Visit [facility] [address] [place] [address] Yesi Perez MD [address] [place] [address] documented as of this encounter Visit Diagnoses [...] documented as of this encounter Care Teams Court Usher Relationship Specialty Start Date End Date Ilya Gusman MD [address] [place] [phone] PCP - General 05/14/17 [facility] 09/01/25 documented as of this encounter
--- OUTSIDE RECORDS SUMMARY | 2025-10-06 22:26 | XMS_ITS | Encounter Summary ---
Author Organization [facility] ystem Address [address] [place] [address] Phone Care Team Providers Care Paper Stacker Name Role Phone Ilya Gusman MD Primary Care Provider [phone] Encounter Details Date Type Department Care Team (Late Contact Info) Description 06/07/2024 Scanned Document [facility] - Health Information Department [address] [place] [phone] Scan, No Provider Available [address] [place] [address] [place] [address] <No scans attached> Social History Tobacco Use [...] 10:30 AM EST Office Visit [facility] - Internal Medicine [address] [place] [phone] Ilya Gusman MD [address] [place] [phone] Christophe Dailey MD [address] [place] [address] [phone] 01/18/2026 1:00 PM EST Office Visit [facility] [address] [place] [address] Porsha Marsh, SUPERINTENDENT BUILDING [address] [place] [address] 02/22/2026 11:00 AM EDT Office Visit [facility] [address] [place] [address] [address] [place] [phone] Alonso Bae MD [address] [place] [address] [address] [place] [address] 07/17/2026 2:00 PM EDT Office Visit [facility] - Internal Medicine [address] [place] [phone] Ilya Gusman MD [address] [place] [phone] 07/19/2026 11:40 AM EDT Office Visit [facility] [address] [place] [address] Yesi Perez MD [address] [place] [address] documented as of this encounter Visit Diagnoses Not on filedocumented in this encounter Additional Health Concerns Infection Onset Date Last Indicated Resolved Time C difficile Rule-Out 11/01/2024 11/02/2024 024 9:43 AM EST Assessment Noted Time PHQ-9 Depression Total Score: 6 04/28/20 24 1:53 PM EDT documented as of this encounter Care Teams Paper Stacker Relationship Specialty Start Date End Date Ilya Gusman MD [address] [place] [address] [phone] PCP - General 05/14/17 [facility] 09/01/25 documented as of this encounter
--- OUTSIDE RECORDS SUMMARY | 2025-10-06 22:26 | XMS_ITS | Encounter Summary ---
Author Organization [facility] ystem Address [address] [place] [address] Phone Care Team Providers Care Regional Sales Leader Name Role Phone Ilya Gusman MD Primary Care Provider [phone] Encounter Details Date Type Department Care Team (Late st Contact Info) Description 06/26/2021 Orders Only [facility] - Health Information Department [address] [place] [address] Scan, No Provider Available [address] [facility] [place] [address] Social History Tobacco Use Types Packs/Day Years [...] 10:30 AM EST Office Visit [facility] - Internal Medicine [address] [place] [phone] Ilya Gusman MD [address] [place] [phone] Christophe Dailey MD [address] [place] [phone] 01/18/2026 1:00 PM EST Office Visit [facility] [address] [place] [address] Porsha Marsh, PARKING STATION ATTENDANT [address] [place] [address] 02/22/2026 11:00 AM EDT Office Visit [facility] [address] [place] [address] [address] [place] [phone] Alonso Bae MD [address] [place] [address] [address] [place] [address] 07/17/2026 2:00 PM EDT Office Visit [facility] - Internal Medicine [address] [place] [address] [phone] Ilya Gusman MD [address] [place] [phone] 07/19/2026 11:40 AM EDT Office Visit [facility] [address] [place] [address] Yesi Perez MD [address] [place] [address] documented as of this encounter Procedures Procedure [...] documented as of this encounter Care Teams Regional Sales Leader Relationship Specialty Start Date End Date Ilya Gusman MD [address] [place] [address] [phone] PCP - General 05/14/17 [facility] 09/01/25 documented as of this encounter
--- OUTSIDE RECORDS SUMMARY | 2025-10-06 22:26 | XMS_ITS | Encounter Summary ---
Author Organization [facility] Address [address] [place] [address] Phone Care Team Providers Care Museum Attendant Name Role Phone Ilya Gusman MD Primary Care Provider [phone] Encounter Details Date Type Department Care Team (Late Contact Info) Description 01/13/2018 Scanned Document [facility] - Health Information Department [address] [place] [address] Scan, No Provider Available [address] [place] [address] [place] [id number] <No scans attached> Social History Tobacco Use [...] [facility] - Internal Medicine [address] [place] [phone] Ilya Gusman MD [address] [place] [phone] Christophe Dailey MD [address] [place] [phone] 01/18/2026 1:00 PM EST Office Visit [facility] [address] [place] [address] Porsha Marsh, RICE DRYER MECHANIC 70 [place] [address] 02/22/2026 11:00 AM EDT Office Visit [facility] [address] [place] [address] [address] [place] [phone] Alonso Bae MD [address] [place] [address] 2 [place] [address] 07/17/2026 2:00 PM EDT Office Visit [facility] - Internal Medicine [address] [place] [phone] Ilya Gusman MD [address] [place] [phone] 07/19/2026 11:40 AM EDT Office Visit [facility] [address] [place] [address] Yesi Perez MD [address] [place] [address] documented as of this encounter Visit Diagnoses [...] documented as of this encounter Care Teams Museum Attendant Relationship Specialty Start Date End Date Ilya Gusman MD [address] [place] [address] [phone] PCP - General 05/14/17 [facility] 09/01/25 documented as of this encounter
--- OUTSIDE RECORDS SUMMARY | 2025-10-06 22:26 | XMS_ITS | Encounter Summary ---
Author Organization [facility] Address [address] [place] [address] Phone Care Team Providers Care Blade Boner Name Role Phone Ilya Gusman MD Primary Care Provider [phone] Reason for Visit * Reason Onset Date Comments Med Refill 08/13/2021 Encounter Details Date Type Department Care Team (Late st Contact Info) Description 08/13/2021 Refill [facility] - Internal Medicine [address] [place] [address] [phone] Ilya Gusman MD [address] [place] [phone] Med Refill Social History Tobacco Use [...] [facility] [address] [place] [address] [phone] Ilya Gusman MD [address] [place] [address] [phone] Christophe Dailey MD [address] [place] [address] [phone] 01/18/2026 1:00 PM EST Office Visit [facility] [address] [facility] 1 [place] [address] Porsha Marsh, MARILIA 70 [place] [address] 02/22/2026 11:00 AM EDT Office Visit [facility] [address] [place] [address] [address] [place] [address] Alonso Bae MD [address] [facility] [address] [place] [address] 07/17/2026 2:00 PM EDT Office Visit [facility] - Internal Medicine 143 [place] [phone] Ilya Gusman MD [address] [place] [address] [phone] 07/19/2026 11:40 AM EDT Office Visit [facility] [address] [address] Yesi Perez MD 70 [place] [address] documented as of this encounter Visit Diagnoses [...] documented as of this encounter Care Teams Blade Boner Relationship Specialty Start Date End Date Ilya Gusman MD [address] [place] [address] [phone] PCP - General 05/14/17 [facility] 09/01/25 documented as of this encounter
--- OUTSIDE RECORDS SUMMARY | 2025-10-06 22:26 | XMS_ITS | Encounter Summary ---
Author Organization [facility] ystem Address [address] [place] [address] Phone Care Team Providers Care Licensed Life And Health Agent Name Role Phone Ilya Gusman MD Primary Care Provider [phone] Encounter Details Date Type Department Care Team ([facility] Contact Info) Description 06/11/2024 Orders Only [facility] - Health Information Department [address] [place] [phone] Scan, No Provider Available [address] [place] [address] [place]. Eleazar [place] [phone] Social History Tobacco Use Types Packs/Day Years [...] Upcoming Encounters Date Type Department Care Team ([facility] Contact Info) Description 10/10/2025 10:30 AM EST Office Visit [facility] - Internal Medicine [address] [place] [phone] Ilya Gusman MD [address] [place] [phone] Christophe Dailey MD [address] [place] [phone] 01/18/2026 1:00 PM EST Office Visit [facility] [address] [place] [address] Porsha Marsh, ANODIZE MACHINE OPERATOR [address] [place] [address] 02/22/2026 11:00 AM EDT Office Visit [facility] [address] [place] [address] [address] [place] [phone] Alonso Bae MD [address] [place] [address] [address] [place] [address] 07/17/2026 2:00 PM EDT Office Visit [facility] - Internal Medicine [address] [place] [phone] Ilya Gusman MD [address] [place] [phone] 07/19/2026 11:40 AM EDT Office Visit [facility] [address] [place] [address] Yesi Perez MD [address] [place] [address] documented as of this encounter Procedures Procedure [...] documented as of this encounter Care Teams Licensed Life And Health Agent Relationship Specialty Start Date End Date Ilya Gusman MD [address] [place] [address] [phone] PCP - General 05/14/17 [facility] 09/01/25 documented as of this encounter
--- OUTSIDE RECORDS SUMMARY | 2025-10-06 22:26 | XMS_ITS | Encounter Summary ---
Author Organization [facility] ystem Address [address] [place] [address] Phone Care Team Providers Care Modeling Analyst Name Role Phone Ilya Gusman MD Primary Care Provider [phone] Encounter Details Date Type Department Care Team ([facility] Contact Info) Description 06/08/[address] [facility] - Health Information Department [address] [place] [address] Scan, No Provider Available [address] [place] [address] [place] Eleazar [place] [phone] Social History Tobacco Use Types Packs/Day Years [...] Encounters Date Type Department Care Team ([facility] Contact Info) Description 10/10/2025 10:30 AM EST Office Visit [facility] - Internal Medicine [address] [place] [phone] Ilya Gusman MD [address] [place] [phone] Christophe Dailey MD [address] [place] [phone] 01/18/2026 1:00 PM EST Office Visit [facility] [address] [place] [address] Porsha Marsh, KNITTER MACHINE [address] [place] [address] 02/22/2026 11:00 AM EDT Office Visit [facility] [address] [place] [address] [address] [place] [phone] Alonso Bae MD [address] [place] [address] [address] [place] [address] 07/17/2026 2:00 PM EDT Office Visit [facility] - Internal Medicine [address] [place] [phone] Ilya Gusman MD [address] [place] [phone] 07/19/2026 11:40 AM EDT Office Visit [facility] [address] [place] [address] Yesi Perez MD [address] [place] [address] documented as of this encounter Procedures Procedure [...] documented as of this encounter Care Teams Modeling Analyst Relationship Specialty Start Date End Date Ilya Gusman MD [address] [place] [phone] PCP - General 05/14/17 [facility] 09/01/25 documented as of this encounter
--- OUTSIDE RECORDS SUMMARY | 2025-10-06 22:26 | XMS_ITS | Encounter Summary ---
Author Organization [facility] ystem Address [address] [place] [address] Phone Care Team Providers Care Weather Strip Mechanic Name Role Phone Ilya Gusman MD Primary Care Provider [phone] Encounter Details Date Type Department Care Team (Late st Contact Info) Description 12/14/2021 Scanned Document [facility] - Health Information Department [address] [place], [place] [phone] Scan, No Provider Available [address] [facility] [place] [address] <No scans attached> Social History Tobacco Use [...] [facility] - Internal Medicine [address] [place] [phone] Ilya Gusman MD [address] [place] [phone] Christophe Dailey MD [address] [place] [phone] 01/18/2026 1:00 PM EST Office Visit [facility] [address] [place] [address] Porsha Marsh, PRIVATE BRANCH EXCHANGE SERVICE ADVISOR [address] [place] [address] 02/22/2026 11:00 AM EDT Office Visit [facility] [address] [place] [address] [address] [place] [phone] Alonso Bae MD [address] [place] [address] [address] [place] [address] 07/17/2026 2:00 PM EDT Office Visit [facility] - Internal Medicine [address] [place] [phone] Ilya Gusman MD [address] [place] [phone] 07/19/2026 11:40 AM EDT Office Visit [facility] [address] [place] [address] Yesi Perez MD [address] [place] [address] documented as of this encounter Visit Diagnoses [...] documented as of this encounter Care Teams Weather Strip Mechanic Relationship Specialty Start Date End Date Ilya Gusman MD [address] [place] [phone] PCP - General 05/14/17 [facility] 09/01/25 documented as of this encounter
--- OUTSIDE RECORDS SUMMARY | 2025-10-06 22:26 | XMS_ITS | Encounter Summary ---
Author Organization [facility] ystem Address [address] [place] [address] Phone Care Team Providers Care Photo Finisher Name Role Phone Ilya Gusman MD Primary Care Provider [phone] Encounter Details Date Type Department Care Team (Late Contact Info) Description 02/02/2024 Scanned Document [facility] - Health Information Department [address] [place] [address] Scan, No Provider Available [address] [place] [address] [place] [address] <No scans attached> Social History Tobacco Use [...] Upcoming Encounters Date Type Department Care Team ([facility] Contact Info) Description 10/10/2025 10:30 AM EST Office Visit [facility] - Internal Medicine [address] [place] [phone] Ilya Gusman MD [address] [place] [phone] Christophe Dailey MD [address] [place] [address] [phone] 01/18/2026 1:00 PM EST Office Visit [facility] [address] [place] [address] Porsha Marsh, LIEUTENANT COLONEL [address] [place] [address] 02/22/2026 11:00 AM EDT Office Visit [facility] [address] [place] [address] [address] [place] [phone] Alonso Bae MD [address] [place] [address] [address] [place] [address] 07/17/2026 2:00 PM EDT Office Visit [facility] - Internal Medicine [address] [place] [phone] Ilya Gusman MD [address] [place] [phone] 07/19/2026 11:40 AM EDT Office Visit [facility] [address] [place] [address] Yesi Perez MD [address] [place] [address] documented as of this encounter Visit Diagnoses Not on filedocumented in this encounter Additional Health Concerns Infection Onset Date Last Indicated Resolved Time C difficile Rule-Out 11/01/2024 11/02/2024 024 9:43 AM EST Assessment Noted Time PHQ-9 Depression Total Score: 9 06/05/20 20 9:52 AM EDT documented as of this encounter Care Teams Photo Finisher Relationship Specialty Start Date End Date Ilya Gusman MD [address] [place] [address] [phone] PCP - General 05/14/17 [facility] 09/01/25 documented as of this encounter
--- OUTSIDE RECORDS SUMMARY | 2025-10-06 22:26 | XMS_ITS | Encounter Summary ---
Author Organization [facility] Address [address] [place] [address] Phone Care Team Providers Care Center Medical Specialist Name Role Phone Ilya Gusman MD Primary Care Provider [phone] Reason for Visit * Reason Onset Date Comments Med Refill 09/11/2021 Encounter Details Date Type Department Care Team (Late Contact Info) Description 09/11/2021 Refill [facility] - Internal Medicine [address] [place] [address] [phone] Christophe Dailey MD [address] [place] [phone] Med Refill Social History Tobacco Use [...] 11:15 AM Arthur Meneses MD WEY URO WEY 01/21/2022 11:20 AM Ilya Gusman MD LNG IM LNG AIR PURIFIER SERVICER reviewed on 09/12/2021 by JANY DALEY LPN and no red flags were noted documented in this encounter Plan of Treatment Upcoming Encounters Date Type Department Care Team (Late st Contact Info) Description 10/10/2025 10:30 AM EST Office Visit [facility] - Internal Medicine [address] [place] [address] [phone] Ilya Gusman MD [address] [place] [phone] Christophe Dailey MD [address] [place] [phone] 01/18/2026 1:00 PM EST Office Visit [facility] [address] [address] Porsha Marsh, HIGHWAY ENGINEERING TECHNICIAN 70 [place] [address] 02/22/2026 11:00 AM EDT Office Visit [facility] [address] [facility] [address] [place] [address] Alonso Bae MD [address] [place] [address] [place] [address] 07/17/2026 2:00 PM EDT Office Visit [facility] - Internal Medicine 143 [place] [phone] Ilya Gusman MD [address] [place] [address] [phone] 07/19/2026 11:40 AM EDT Office Visit [facility] 70 [facility] [place] [address] Yesi Perez MD 70 [place] [address] documented as of this encounter Visit Diagnoses [...] documented as of this encounter Care Teams Center Medical Specialist Relationship Specialty Start Date End Date Ilya Gusman MD [address] [place] [address] [phone] PCP - General 05/14/17 [facility] 09/01/25 documented as of this encounter
--- OUTSIDE RECORDS SUMMARY | 2025-10-06 22:26 | XMS_ITS | Encounter Summary ---
Author Organization [facility] Address [address] [place] [address] Phone Care Team Providers Care Van Driver Helper Name Role Phone Ilya Gusman MD Primary Care Provider [phone] Encounter Details Date Type Department Care Team (Late Contact Info) Description 09/16/2018 Orders Only [facility] - Internal Medicine [address] [place] [phone] Ilya Gusman MD [address] [place] [phone] Abnormal drug screen (Primary Dx) Social [...] Visit [facility] - Internal Medicine [address] [place] [phone] Ilya Gusman MD [address] [place] [phone] Christophe Dailey MD [address] [place] [phone] 01/18/2026 1:00 PM EST Office Visit [facility] [address] [place] [address] Porsha Marsh, CORPORATE MANAGER [address] [place] [address] 02/22/2026 11:00 AM EDT Office Visit [facility] [address] [place] [address] [address] [place] [phone] Alonso Bae MD [address] [place] [address] [address] [place] [address] 07/17/2026 2:00 PM EDT Office Visit [facility] - Internal Medicine [address] [place] [address] [phone] Ilya Gusman MD [address] [place] [phone] 07/19/2026 11:40 AM EDT Office Visit [facility] [address] [place] [address] Yesi Perez MD [address] [place] [address] documented as of this encounter Results * Benzodiazepines, Quant, GC/MS, Urine (SEND OUT) (09/16/2018 2:32 PM EDT) [facility] NO 09/20/20 18 10:23 [...] Performing Organization Information: Site ID: [id number] Name: [facility] Address: [address] [place] [address], [place] [address] Director: Pa Ramey us Ilya Gusman MD LAB URINE ORDERABLES Final Resu lt [facility] [address] [place] [address] documented in this encounter Visit Diagnoses Diagnosis [...] documented as of this encounter Care Teams Van Driver Helper Relationship Specialty Start Date End Date Ilya Gusman MD [address] [place] [address] [phone] PCP - General 05/14/17 [facility] 09/01/25 documented as of this encounter
--- OUTSIDE RECORDS SUMMARY | 2025-10-06 22:26 | XMS_ITS | Encounter Summary ---
Author Organization [facility] ystem Address [address] [place] [address] Phone Care Team Providers Care Investment Banking Analyst Name Role Phone Ilya Gusman MD Primary Care Provider [phone] Encounter Details Date Type Department Care Team (Late st Contact Info) Description 08/23/2021 Orders Only [facility] - Health Information Department 143 [place] [address] Scan, No Provider Available [address] [facility] [address] Social History Tobacco Use Types Packs/Day Years [...] [facility] - Internal Medicine [address] [place] [phone] Ilya Gusman MD [address] [place] [phone] Christophe Dailey MD [address] [place] [phone] 01/18/2026 1:00 PM EST Office Visit [facility] [address] [place] [address] Porsha Marsh, MANAGER PLAY [address] [place] [address] 02/22/2026 11:00 AM EDT Office Visit [facility] [address] [place] [address] [address] [place] [phone] Alonso Bae MD [address] [place] [address] [address] [place] [address] 07/17/2026 2:00 PM EDT Office Visit [facility] - Internal Medicine [address] [place] [phone] Ilya Gusman MD [address] [place] [phone] 07/19/2026 11:40 AM EDT Office Visit [facility] [address] [place] [address] Yesi Perez MD [address] [place] [address] documented as of this encounter Procedures Procedure [...] documented as of this encounter Care Teams Investment Banking Analyst Relationship Specialty Start Date End Date Ilya Gusman MD [address] [place] [phone] PCP - General 05/14/17 [facility] 09/01/25 documented as of this encounter
--- OUTSIDE RECORDS SUMMARY | 2025-10-06 22:26 | XMS_ITS | Encounter Summary ---
Author Organization [facility] ystem Address [address] [place] [address] Phone Care Team Providers Care Electrophysiology Technician Name Role Phone Ilya Gusman MD Primary Care Provider [phone] Encounter Details Date Type Department Care Team (Late st Contact Info) Description 06/01/2021 Procedure Pass [facility] - MR Imaging 55 [place] [address] Social History Tobacco Use Types [...] [facility] - Internal Medicine [address] [place] [phone] Ilya Gusman MD [address] [place] [address] [phone] Christophe Dailey MD [address] [place] [phone] 01/18/2026 1:00 PM EST Office Visit [facility] [address] [address] Porsha Marsh CNP 70 [place] [address] 02/22/2026 11:00 AM EDT Office Visit [facility] [address] [facility] [address] [place] [phone] Alonso Bae MD [address] [place] [address] [address] [place] [address] 07/17/2026 2:00 PM EDT Office Visit [facility] - Internal Medicine [address] [place] [phone] Ilya Gusman MD [address] [place] [phone] 07/19/2026 11:40 AM EDT Office Visit [facility] [address] [address] Yesi Perez MD 70 [place] [address] documented as of this encounter Visit Diagnoses [...] documented as of this encounter Care Teams Electrophysiology Technician Relationship Specialty Start Date End Date Ilya Gusman MD [address] [place] [phone] PCP - General 05/14/17 [facility] 09/01/25 documented as of this encounter
--- OUTSIDE RECORDS SUMMARY | 2025-10-06 22:26 | XMS_ITS | Encounter Summary ---
Author Organization [facility] ystem Address [address] [place] [address] Phone Care Team Providers Care Counter Stitcher Name Role Phone Ilya Gusman MD Primary Care Provider [phone] Encounter Details Date Type Department Care Team (Late st Contact Info) Description 08/01/2021 Scanned Document [facility] - Health Information Department [address] [place], [place] [phone] Scan, No Provider Available [address] [facility] [place] [address] <No scans attached> Social History Tobacco Use [...] Office Visit [facility] - Internal Medicine [address] [place] [phone] Ilya Gusman MD [address] [place] [phone] Christophe Dailey MD [address] [place] [phone] 01/18/2026 1:00 PM EST Office Visit [facility] [address] [place] [address] Porsha Marsh, DIRECTOR TARGETED MARKETING [address] [place] [address] 02/22/2026 11:00 AM EDT Office Visit [facility] [address] [place] [address] [address] [place] [phone] Alonso Bae MD [address] [place] [address] [address] [place] [address] 07/17/2026 2:00 PM EDT Office Visit [facility] - Internal Medicine [address] [place] [phone] Ilya Gusman MD [address] [place] [phone] 07/19/2026 11:40 AM EDT Office Visit [facility] [address] [place] [address] Yesi Perez MD [address] [place] [address] documented as of this encounter Visit Diagnoses [...] documented as of this encounter Care Teams Counter Stitcher Relationship Specialty Start Date End Date Ilya Gusman MD [address] [place] [phone] PCP - General 05/14/17 [facility] 09/01/25 documented as of this encounter
--- OUTSIDE RECORDS SUMMARY | 2025-10-06 22:26 | XMS_ITS | Encounter Summary ---
Author Organization [facility] Address [address] [place] [address] Phone Care Team Providers Care Casino Manager Name Role Phone Ilya Gusman MD Primary Care Provider [phone] Encounter Details Date Type Department Care Team ([facility] Contact Info) Description 08/15/[address] [facility] 2 [place] [phone] Social History Tobacco Use Types Packs/Day Years [...] Visit [facility] - Internal Medicine [address] [place] [phone] Ilya Gusman MD [address] [place] [address] [phone] Christophe Dailey MD [address] [place] [phone] 01/18/2026 1:00 PM EST Office Visit [facility] [address] [place] [address] Porsha Marsh CNP 70 [place] [address] 02/22/2026 11:00 AM EDT Office Visit [facility] [address] [place] [address] [address] [place] [phone] Alonso Bae MD [address] [place] [address] [address] [place] [address] 07/17/2026 2:00 PM EDT Office Visit [facility] - Internal Medicine [address] [place] [phone] Ilya Gusman MD [address] [place] [phone] 07/19/2026 11:40 AM EDT Office Visit [facility] [address] [place] [address] Yesi Perez MD 70 [place] [address] documented as of this encounter Visit Diagnoses [...] documented as of this encounter Care Teams Casino Manager Relationship Specialty Start Date End Date Ilya Gusman MD [address] [place] [phone] PCP - General 05/14/17 [facility] 09/01/25 documented as of this encounter
--- OUTSIDE RECORDS SUMMARY | 2025-10-06 22:26 | XMS_ITS | Encounter Summary ---
Author Organization [facility] Address [address] [place] [address] Phone Care Team Providers Care Rn Ent Name Role Phone Ilya Gusman MD Primary Care Provider [phone] Reason for Visit * Reason Onset Date Comments Med Refill 07/24/2021 Encounter Details Date Type Department Care Team (Late st Contact Info) Description 07/24/2021 Refill [facility] - Internal Medicine [address] [place] [phone] Ilya Gusman MD [address] [place] [phone] Med Refill Social History Tobacco Use [...] - 07/25/2021 11:13 AM EDT Dilaudid Pharmacy: [facility] [place] DATE OF LAST REFILL? 07/13 FREQUENCY OF [...] AM Ilya Gusman MD LNG IM LNG CLEAT BLANKER reviewed on 07/25/2021 by Ian PICKETT and no red flags were noted Ian Pierson Refill Team, Loft documented in this encounter Plan of Treatment Upcoming Encounters Date Type Department Care Team (Late st Contact Info) Description 10/10/2025 10:30 AM EST Office Visit [facility] - Internal Medicine [address] [place] [phone] Ilya Gusman MD [address] [place] [phone] Christophe Dailey MD [address] [place] [phone] 01/18/2026 1:00 PM EST Office Visit [facility] [address] [place] [phone] Porsha Marsh CNP [address] [place] [address] 02/22/2026 11:00 AM EDT Office Visit [facility] [address] [place] [phone] Alonso Bae MD [address] [place] [address] [address] [place] [address] 07/17/2026 2:00 PM EDT Office Visit [facility] - Internal Medicine [address] [place] [phone] Ilya Gusman MD [address] [place] [phone] 07/19/2026 11:40 AM EDT Office Visit [facility] [address] [address] Yesi Perez MD 70 [place] [address] documented as of this encounter Visit Diagnoses [...] as of this encounter Care Teams Rn Ent Relationship Specialty Start Date End Date Ilya Gusman MD [address] [place] [phone] PCP - General 05/14/17 [facility] 09/01/25 documented as of this encounter
--- OUTSIDE RECORDS SUMMARY | 2025-10-06 22:26 | XMS_ITS | Encounter Summary ---
Author Organization [facility] ystem Address [address] [place] [address] Phone Care Team Providers Care Pattern Puncher Name Role Phone Ilya Gusman MD Primary Care Provider [phone] Encounter Details Date Type Department Care Team (Late st Contact Info) Description 12/07/2021 Orders Only [facility] - Health Information Department [address] [place] [address] Scan, No Provider Available [address] [facility] [place] [address] Social History Tobacco Use Types Packs/Day Years [...] 10/10/2025 10:30 AM EST Office Visit [facility] - Internal Medicine [address] [place] [phone] Ilya Gusman MD [address] [place] [phone] Christophe [place]iley MD [address] [place] [phone] 01/18/2026 1:00 PM EST Office Visit [facility] [address] [place] [address] Porsha Marsh, LINUX SYSTEMS ENGINEER [address] [place] [address] 02/22/2026 11:00 AM EDT Office Visit [facility] [address] [place] [address] [address] [place] [phone] Alonso Bae MD [address] [place] [address] [address] [place] [address] 07/17/2026 2:00 PM EDT Office Visit [facility] - Internal Medicine [address] [place] [phone] Ilya Gusman MD [address] [place] [phone] 07/19/2026 11:40 AM EDT Office Visit [facility] [address] [place] [address] Yesi Perez MD [address] [place] [address] documented as of this encounter Procedures Procedure [...] as of this encounter Care Teams Pattern Puncher Relationship Specialty Start Date End Date Ilya Gusman MD [address] [place] [phone] PCP - General 05/14/17 [facility] 09/01/25 documented as of this encounter
--- OUTSIDE RECORDS SUMMARY | 2025-10-06 22:26 | XMS_ITS | Encounter Summary ---
Author Organization [facility] ystem Address [address] [place] [address] Phone Care Team Providers Care Cyber Security Administrator Name Role Phone Ilya Gusman MD Primary Care Provider [phone] Encounter Details Date Type Department Care Team (Late st Contact Info) Description 06/20/2021 Scanned Document [facility] - Health Information Department [address] [place], [place] [phone] Scan, No Provider Available [address] [facility] [place] [address] <No scans attached> Social History Tobacco Use [...] Description 10/10/2025 10:30 AM EST Office Visit [facility] - Internal Medicine [address] [place] [phone] Ilya Gusman MD [address] [place] [phone] Christophe [place]iley MD [address] [place] [phone] 01/18/2026 1:00 PM EST Office Visit [facility] [address] [place] [address] Porsha Marsh, MIMEOGRAPH OPERATOR 70 [place] [address] 02/22/2026 11:00 AM EDT Office Visit [facility] [address] [place] [address] [address] [place] [phone] Alonso Bae MD [address] [place] [address] [address] [place] [address] 07/17/2026 2:00 PM EDT Office Visit [facility] - Internal Medicine [address] [place] [phone] Ilya Gusman MD [address] [place] [phone] 07/19/2026 11:40 AM EDT Office Visit [facility] [address] [place] [address] Yesi Perez MD 70 [place] [address] documented as of this encounter Visit Diagnoses [...] as of this encounter Care Teams Cyber Security Administrator Relationship Specialty Start Date End Date Ilya Gusman MD [address] [place] [address] [phone] PCP - General 05/14/17 [facility] 09/01/25 documented as of this encounter
--- OUTSIDE RECORDS SUMMARY | 2025-10-06 22:26 | XMS_ITS | Encounter Summary ---
Author Organization [facility] ystem Address [address] [place] [address] Phone Care Team Providers Care [employer] Assistant Manager Name Role Phone Ilya Gusman MD Primary Care Provider Encounter Details Date Type Department Care Team (Late Contact Info) Description 06/08/2024 Scanned Document [facility] - Health Information Department [address] [place] [phone] Scan, No Provider Available [address] [place] [address] [place] [address] <No scans attached> Social History Tobacco Use [...] [facility] Contact Info) Description 10/10/2025 10:30 AM EST Office Visit [facility] - Internal Medicine [address] [place] [phone] Ilya Gusman MD [address] [place] [phone] Christophe [place]iley MD [address] [place] [address] [phone] 01/18/2026 1:00 PM EST Office Visit [facility] [address] [place] [address] Porsha Marsh, IMPORT COORDINATION AND PRODUCTION HEAD [address] [place] [address] 02/22/2026 11:00 AM EDT Office Visit [facility] [address] [place] [address] [address] [place] [phone] Alonso Bae MD [address] [place] [address] [address] [place] [address] 07/17/2026 2:00 PM EDT Office Visit [facility] - Internal Medicine [address] [place] [phone] Ilya Gusman MD [address] [place] [phone] 07/19/2026 11:40 AM EDT Office Visit [facility] [address] [place] [address] Yesi Perez MD [address] [place] [address] documented as of this encounter Visit Diagnoses Not on filedocumented in this encounter Additional Health Concerns Infection Onset Date Last Indicated Resolved Time C difficile Rule-Out 11/01/2024 11/02/2024 024 9:43 AM EST Assessment Noted Time PHQ-9 Depression Total Score: 6 04/28/20 24 1:53 PM EDT documented as of this encounter Care Teams [employer] Assistant Manager Relationship Specialty Start Date End Date Ilya Gusman MD [address] [place] [phone] PCP - General 05/14/17 [facility] 09/01/25 documented as of this encounter
--- OUTSIDE RECORDS SUMMARY | 2025-10-06 22:26 | XMS_ITS | Encounter Summary ---
Author Organization [facility]stem Address [address] [place] [address] Phone Care Team Providers Care Creative Producer Name Role Phone Ilya Gusman MD Primary Care Provider [phone] Encounter Details Date Type Department Care Team (Late st Contact Info) Description 06/07/2021 Telephone [facility] 5 [address] [place] [phone] Marla Renee, RN Social History [...] 10/10/2025 10:30 AM EST Office Visit [facility] - Internal Medicine [address] [place] [phone] Ilya Gusman MD [address] [place] [phone] Christophe [place]iley MD [address] [place] [phone] 01/18/2026 1:00 PM EST Office Visit [facility] [address] [place] [address] Porsha Marsh CNP [address] [place] [address] 02/22/2026 11:00 AM EDT Office Visit [facility] [address] [place] [address] [address] [place] [phone] Alonso Bae MD [address] [place] [address] [address] [place] [address] 07/17/2026 2:00 PM EDT Office Visit [facility] - Internal Medicine [address] [place] [phone] Ilya Gusman MD [address] [place] [phone] 07/19/2026 11:40 AM EDT Office Visit [facility] [address] [place] [address] Yesi Perez MD 70 [place] [address] documented as of this encounter Visit Diagnoses [...] documented as of this encounter Care Teams Creative Producer Relationship Specialty Start Date End Date Ilya Gusman MD [address] [place] [phone] PCP - General 05/14/17 [facility] 09/01/25 documented as of this encounter
--- OUTSIDE RECORDS SUMMARY | 2025-10-06 22:26 | XMS_ITS | Encounter Summary ---
Author Organization [facility]stem Address [address] [place] [address] Phone Care Team Providers Care Can Intake Worker Name Role Phone Ilya Gusman MD Primary Care Provider [phone] Encounter Details Date Type Department Care Team (Late Contact Info) Description 06/13/[address] [facility] - Health Information Department [address] [place] [phone] Scan, No Provider Available [address] [place] [address] [place] [address] <No scans attached> Social History Tobacco Use [...] Encounters Date Type Department Care Team ([facility] Contact Info) Description 10/10/2025 10:30 AM EST Office Visit [facility] - Internal Medicine [address] [place] [phone] Ilya Gusman MD [address] [place] [phone] Christophe [place]iley MD [address] [place] [phone] 01/18/2026 1:00 PM EST Office Visit [facility] [address] [place] [address] Porsha Marsh, BLACK TOP SPREADER MACHINE OPERATOR [address] [place] [address] 02/22/2026 11:00 AM EDT Office Visit [facility] [address] [place] [address] [address] [place] [phone] Alonso Bae MD [address] [place] [address] [address] [place] [address] 07/17/2026 2:00 PM EDT Office Visit [facility] - Internal Medicine [address] [place] [phone] Ilya Gusman MD [address] [place] [phone] 07/19/2026 11:40 AM EDT Office Visit [facility] [address] [place] [address] Yesi Perez MD [address] [place] [phone] documented as of this encounter Visit Diagnoses Not on filedocumented in this encounter Additional Health Concerns Infection Onset Date Last Indicated Resolved Time C difficile Rule-Out 11/01/2024 11/02/2024 024 9:43 AM EST Assessment Noted Time PHQ-9 Depression Total Score: 6 04/28/20 24 1:53 PM EDT documented as of this encounter Care Teams Can Intake Worker Relationship Specialty Start Date End Date Ilya Gusman MD [address] [place] [address] [phone] PCP - General 05/14/17 [facility] 09/01/25 documented as of this encounter
--- OUTSIDE RECORDS SUMMARY | 2025-10-06 22:26 | XMS_ITS | Encounter Summary ---
Author Organization [facility] Address [address] [place] [address] Phone Care Team Providers Care Digital Design Engineer Name Role Phone Ilya Gusman MD Primary Care Provider [phone] Reason for Visit * Reason Onset Date Comments Med Refill 08/06/2021 Encounter Details Date Type Department Care Team (Late st Contact Info) Description 08/06/2021 Refill [facility] - Internal Medicine [address] [place] [phone] Ilya Gusman MD [address] [place] [phone] Med Refill Social History Tobacco Use [...] to f/u on refill request Lynsey Hutton WATER AEROBICS INSTRUCTOR LNG/IM * Telephone Encounter - Sheron Hoover PhT - 08/06/2021 8:42 AM EDT Dilaudid 4mg Pharmacy: [facility] DATE OF LAST REFILL? 07/25/21 FREQUENCY OF [...] AM Ilya Gusman MD LNG IM LNG REAL ESTATE COORDINATOR reviewed on 08/06/2021 by Ian SORIA and no red flags were noted Ian Soria/LÓPEZ Refill TeamRenetta documented in this encounter Plan of Treatment Upcoming Encounters Date Type Department Care Team (Late st Contact Info) Description 10/10/2025 10:30 AM EST Office Visit [facility] - Internal Medicine [address] [place] [phone] Ilya Gusman MD [address] [place] [phone] Christophe [place]iley MD [address] [place] [phone] 01/18/2026 1:00 PM EST Office Visit [facility] [address] [place] [address] Porsha Marsh, SHINGLE BOLT CUTTER 70 [place] [address] 02/22/2026 11:00 AM EDT Office Visit [facility] [address] [place] [address] [address] [place] [phone] Alonso Bae MD [address] [place] [address] 2 [place] [address] 07/17/2026 2:00 PM EDT Office Visit [facility] - Internal Medicine [address] [place] [phone] Ilya Gusman MD [address] [place] [phone] 07/19/2026 11:40 AM EDT Office Visit [facility] [address] [place] [address] Yesi Perez MD [address] [place] [address] documented as of this encounter Visit Diagnoses [...] documented as of this encounter Care Teams Digital Design Engineer Relationship Specialty Start Date End Date Ilya Gusman MD [address] [place] [phone] PCP - General 05/14/17 [facility] 09/01/25 documented as of this encounter
--- OUTSIDE RECORDS SUMMARY | 2025-10-06 22:26 | XMS_ITS | Encounter Summary ---
Author Organization [facility] ystem Address [address] [place] [address] Phone Care Team Providers Care Director Of Reservations Name Role Phone Ilya Gusman MD Primary Care Provider [phone] Encounter Details Date Type Department Care Team (Late st Contact Info) Description 08/08/2021 Scanned Document [facility] - Health Information Department [address] [place], [place] [phone] Scan, No Provider Available [address] [facility] [place] [address] <No scans attached> Social History Tobacco Use [...] Description 10/10/2025 10:30 AM EST Office Visit [facility] - Internal Medicine [address] [place] [phone] Ilya Gusman MD [address] [place] [phone] Christophe [place]iley MD [address] [place] [phone] 01/18/2026 1:00 PM EST Office Visit [facility] [address] [place] [address] Porsha Marsh, DIP LUBE OPERATOR 70 [place] [address] 02/22/2026 11:00 AM EDT Office Visit [facility] [address] [place] [address] [address] [place] [phone] Alonso Bae MD [address] [place] [address] [address] [place] [address] 07/17/2026 2:00 PM EDT Office Visit [facility] - Internal Medicine [address] [place] [phone] Ilya Gusman MD [address] [place] [phone] 07/19/2026 11:40 AM EDT Office Visit [facility] [address] [place] [address] Yesi Perez MD 70 [place] [address] documented as of this encounter Visit Diagnoses [...] of this encounter Care Teams Director Of Reservations Relationship Specialty Start Date End Date Ilya Gusman MD [address] [place] [phone] PCP - General 05/14/17 [facility] 09/01/25 documented as of this encounter
--- OUTSIDE RECORDS SUMMARY | 2025-10-06 22:26 | XMS_ITS | Encounter Summary ---
Author Organization [facility] ystem Address [address] [place] [address] Phone Care Team Providers Care Hot Pond Operator Name Role Phone Ilya Gusman MD Primary Care Provider [phone] Encounter Details Date Type Department Care Team (Late st Contact Info) Description 07/25/2021 Scanned Document [facility] - Health Information Department 143 [place], [place] [phone] Scan, No Provider Available [address] [facility] [place] [address] <No scans attached> Social History Tobacco Use [...] [facility] - Internal Medicine [address] [place] [phone] Ilya Gusman MD [address] [place] [phone] Christophe [place]iley MD [address] [place] [phone] 01/18/2026 1:00 PM EST Office Visit [facility] [address] [place] [phone] Porsha Marsh, STRIPPER SOFT PLASTIC [address] [place] [address] 02/22/2026 11:00 AM EDT Office Visit [facility] [address] [place] [address] [address] [place] [phone] Alonso Bae MD [address] [place] [address] [address] [place] [address] 07/17/2026 2:00 PM EDT Office Visit [facility] - Internal Medicine [address] [place] [phone] Ilya Gusman MD [address] [place] [phone] 07/19/2026 11:40 AM EDT Office Visit [facility] [address] [place] [phone] Yesi Perez MD [address] [place] [address] documented as of this encounter Visit Diagnoses [...] documented as of this encounter Care Teams Hot Pond Operator Relationship Specialty Start Date End Date Ilya Gusman MD [address] [place] [phone] PCP - General 05/14/17 [facility] 09/01/25 documented as of this encounter
--- OUTSIDE RECORDS SUMMARY | 2025-10-06 22:26 | XMS_ITS | Encounter Summary ---
Author Organization [facility] ystem Address [address] [place] [address] Phone Care Team Providers Care Tunnel Elastic Operator Lockstitch Name Role Phone Ilya Gusman MD Primary Care Provider [phone] Encounter Details Date Type Department Care Team (Late st Contact Info) Description 12/05/2021 Orders Only [facility] - Health Information Department [address] [place] [address] Scan, No Provider Available [address] [facility] [place] [address] Social History Tobacco Use Types Packs/Day Years [...] 10/10/2025 10:30 AM EST Office Visit [facility] - Internal Medicine [address] [place] [phone] Ilya Gusman MD [address] [place] [phone] Christophe [place] MD [address] [place] [phone] 01/18/2026 1:00 PM EST Office Visit [facility] [address] [place] [address] Porsha Marsh, HEPATOLOGIST [address] [place] [address] 02/22/2026 11:00 AM EDT Office Visit [facility] [address] [place] [address] [address] [place] [phone] Alonso Bae MD [address] [place] [address] [address] [place] [address] 07/17/2026 2:00 PM EDT Office Visit [facility] - Internal Medicine [address] [place] [phone] Ilya Gusman MD [address] [place] [phone] 07/19/2026 11:40 AM EDT Office Visit [facility] [address] [place] [address] Yesi Perez MD [address] [place] [address] documented as of this encounter Procedures Procedure [...] documented as of this encounter Care Teams Tunnel Elastic Operator Lockstitch Relationship Specialty Start Date End Date Ilya Gusman MD [address] [place] [phone] PCP - General 05/14/17 [facility] 09/01/25 documented as of this encounter
--- OUTSIDE RECORDS SUMMARY | 2025-10-06 22:26 | XMS_ITS | Encounter Summary ---
Author Organization [facility] ystem Address [address] [place] [address] Phone Care Team Providers Care Aviation Operations Specialist Name Role Phone Ilya Gusman MD Primary Care Provider [phone] Encounter Details Date Type Department Care Team (Late st Contact Info) Description 07/01/2021 Scanned Document [facility] - Health Information Department [address] [place], [place] [phone] Scan, No Provider Available [address] [facility] [place] [address] <No scans attached> Social History Tobacco Use [...] Description 10/10/2025 10:30 AM EST Office Visit [facility] - Internal Medicine [address] [place] [phone] Ilya Gusman MD [address] [place] [phone] Christophe [place] MD [address] [place] [phone] 01/18/2026 1:00 PM EST Office Visit [facility] [address] [place] [address] Porsha Marsh, GUEST SERVICE AIDE 70 [place] [address] 02/22/2026 11:00 AM EDT Office Visit [facility] [address] [place] [address] [address] [place] [phone] Alonso Bae MD [address] [place] [address] [address] [place] [address] 07/17/2026 2:00 PM EDT Office Visit [facility] - Internal Medicine [address] [place] [phone] Ilya Gusman MD [address] [place] [phone] 07/19/2026 11:40 AM EDT Office Visit [facility] [address] [place] [address] Yesi Perez MD [address] [place] [address] documented as of this encounter Visit Diagnoses [...] documented as of this encounter Care Teams Aviation Operations Specialist Relationship Specialty Start Date End Date Ilya Gusman MD [address] [place] [address] [phone] PCP - General 05/14/17 [facility] 09/01/25 documented as of this encounter
--- OUTSIDE RECORDS SUMMARY | 2025-10-06 22:26 | XMS_ITS | Encounter Summary ---
Author Organization [facility] ystem Address [address] [place] [address] Phone Care Team Providers Care Jewel Hole Driller Name Role Phone Ilya Gusman MD Primary Care Provider [phone] Encounter Details Date Type Department Care Team (Late st Contact Info) Description 07/17/2021 Orders Only [facility] - Health Information Department [address] [place] [address] Scan, No Provider Available [address] [facility] [place] [address] Social History Tobacco Use Types Packs/Day Years [...] [facility] - Internal Medicine [address] [place] [phone] Ilya Gusman MD [address] [place] [phone] Christophe Dailey MD [address] [place] [phone] 01/18/2026 1:00 PM EST Office Visit [facility] [address] [place] [address] Porsha Marsh, MARILIA [address] [place] [address] 02/22/2026 11:00 AM EDT Office Visit [facility] [address] [place] [address] [address] [place] [phone] Alonso Bae MD [address] [place] [address] [address] [place] [address] 07/17/2026 2:00 PM EDT Office Visit [facility] - Internal Medicine [address] [place] [phone] Ilya Gusman MD [address] [place] [phone] 07/19/2026 11:40 AM EDT Office Visit [facility] [address] [place] [address] Yesi Perez MD [address] [place] [address] documented as of this encounter Procedures Procedure [...] documented as of this encounter Care Teams Jewel Hole Driller Relationship Specialty Start Date End Date Ilya Gusman MD [address] [place] [phone] PCP - General 05/14/17 [facility] 09/01/25 documented as of this encounter
--- OUTSIDE RECORDS SUMMARY | 2025-10-06 22:26 | XMS_ITS | Encounter Summary ---
Author Organization [facility] ystem Address [address] [place] [address] Phone Care Team Providers Care Endoscopy Technician Name Role Phone Ilya Gusman MD Primary Care Provider [phone] Encounter Details Date Type Department Care Team (Late st Contact Info) Description 11/06/2021 Scanned Document [facility] - Health Information Department [address] [place], [place] [phone] Scan, No Provider Available [address] [facility] [place] [address] <No scans attached> Social History Tobacco Use [...] [facility] - Internal Medicine [address] [place] [phone] Ilya Gusman MD [address] [place] [phone] Christophe Dailey MD [address] [place] [phone] 01/18/2026 1:00 PM EST Office Visit [facility] [address] [place] [address] Porsha Marsh, COMMODITIES BROKER [address] [place] [address] 02/22/2026 11:00 AM EDT Office Visit [facility] [address] [place] [address] [address] [place] [phone] Alonso Bae MD [address] [place] [address] [address] [place] [address] 07/17/2026 2:00 PM EDT Office Visit [facility] - Internal Medicine [address] [place] [phone] Ilya Gusman MD [address] [place] [phone] 07/19/2026 11:40 AM EDT Office Visit [facility] [address] [place] [address] Yesi Perez MD [address] [place] [address] documented as of this encounter Visit Diagnoses [...] as of this encounter Care Teams Endoscopy Technician Relationship Specialty Start Date End Date Ilya Gusman MD [address] [place] [phone] PCP - General 05/14/17 [facility] 09/01/25 documented as of this encounter
--- OUTSIDE RECORDS SUMMARY | 2025-10-06 22:26 | XMS_ITS | Encounter Summary ---
Author Organization [facility] Address [address] [place] [address] Care Team Providers Care Professor Of Engineering Name Role Phone Solis Encarnacion MD Unavailable [phone] Ilya Gusman MD Primary Care Provider [phone] Encounter Details Date Type Department Care Team (Late st Contact Info) Description 03/23/2024 Lab [facility] Orders Flaquita Jackson MD [address] [place] [phone] Social History Tobacco Use Types Packs/Day Years [...] 5 days BG 03/28/2024 12:01 PM EDT [facility] Blood VENOUS STRUCTURE / Unknown 03/23/2024 8:46 AM EDT 03/23/2024 11:47 AM EDT us Flaquita Jackson MD MICROBIOLOGY - GENERAL ORDER CLEMENT Final Result Performing Organization Address [facility]/ZIP Co de Phone Number [facility] [address] [place] [address], [place] [phone] * Culture, Blood (03/23/2024 8:36 AM EDT) Culture No growth after 5 days BG 03/28/2024 12:01 PM EDT [facility] Blood VENOUS STRUCTURE / Unknown 03/23/2024 8:36 AM EDT 03/23/2024 11:47 AM EDT us Flaquita Jackson MD MICROBIOLOGY - GENERAL ORDER CLEMENT Final Result Performing Organization Address [facility] de Phone Number [facility] [address] [place] [address], [place] [phone] documented in this encounter Visit Diagnoses Not [...] of this encounter Care Teams Professor Of Engineering Relationship Specialty Start Date End Date Ilya Gusman MD [address] [place] [address] PCP - General 02/12/24 Solis Encarnacion MD [address] [facility] [address] [place] [address] Cardiac Electrophysiology 04/24/2402/22 documented as of this encounter
--- OUTSIDE RECORDS SUMMARY | 2025-10-06 22:26 | XMS_ITS | Encounter Summary ---
Author Organization [facility] ystem Address [address] [place] [address] Phone Care Team Providers Care Nursing Resident Name Role Phone Ilya Gusman MD Primary Care Provider [phone] Encounter Details Date Type Department Care Team (Late st Contact Info) Description 06/21/2021 Scanned Document [facility] - Health Information Department [address] [place], [place] [phone] Scan, No Provider Available [address] [facility] [address] <No scans attached> Social History Tobacco Use [...] Visit [facility] - Internal Medicine [address] [place] [phone] Ilya Gusman MD [address] [place] [phone] Christophe Dailey MD [address] [place] [phone] 01/18/2026 1:00 PM EST Office Visit [facility] [address] [place] [address] Porsha Marsh, COAL GRADER [address] [place] [address] 02/22/2026 11:00 AM EDT Office Visit [facility] [address] [place] [address] [address] [place] [phone] Alonso Bae MD [address] [place] [address] [address] [place] [address] 07/17/2026 2:00 PM EDT Office Visit [facility] - Internal Medicine [address] [place] [phone] Ilya Gusman MD [address] [place] [phone] 07/19/2026 11:40 AM EDT Office Visit [facility] [address] [place] [address] Yesi Perez MD [address] [place] [address] documented as of this encounter Visit Diagnoses [...] as of this encounter Care Teams Nursing Resident Relationship Specialty Start Date End Date Ilya Gusman MD [address] [place] [phone] PCP - General 05/14/17 [facility] 09/01/25 documented as of this encounter
--- OUTSIDE RECORDS SUMMARY | 2025-10-06 22:27 | XMS_ITS | Encounter Summary ---
Author Organization [facility] ystem Address [address] [place] [address] Phone Care Team Providers Care Relay Assembler Name Role Phone Ilya Gusman MD Primary Care Provider [phone] Encounter Details Date Type Department Care Team (Late Contact Info) Description 01/07/2024 Scanned Document [facility] - Health Information Department [address] [place] [address] Scan, No Provider Available [address] [place] [address] [place] [address] <No scans attached> Social History Tobacco Use [...] Upcoming Encounters Date Type Department Care Team ([facility] Contact Info) Description 10/10/2025 10:30 AM EST Office Visit [facility] - Internal Medicine [address] [place] [phone] Ilya Gusman MD [address] [place] [phone] Christophe Dailey MD [address] [place] [phone] 01/18/2026 1:00 PM EST Office Visit [facility] [address] [place] [address] Porsha Marsh, MASTER DYER [address] [place] [address] 02/22/2026 11:00 AM EDT Office Visit [facility] [address] [place] [address] [address] [place] [phone] Alonso Bae MD [address] [place] [address] [address] [place] [address] 07/17/2026 2:00 PM EDT Office Visit [facility] - Internal Medicine [address] [place] [phone] Ilya Gusman MD [address] [place] [phone] 07/19/2026 11:40 AM EDT Office Visit [facility] [address] [place] [address] Yesi Perez MD [address] [place] [address] documented as of this encounter Visit Diagnoses Not on filedocumented in this encounter Additional Health Concerns Infection Onset Date Last Indicated Resolved Time C difficile Rule-Out 11/01/2024 11/02/2024 024 9:43 AM EST Assessment Noted Time PHQ-9 Depression Total Score: 9 06/05/20 20 9:52 AM EDT documented as of this encounter Care Teams Relay Assembler Relationship Specialty Start Date End Date Ilya Gusman MD [address] [place] [phone] PCP - General 05/14/17 [facility] 09/01/25 documented as of this encounter
--- OUTSIDE RECORDS SUMMARY | 2025-10-06 22:27 | XMS_ITS | Encounter Summary ---
Author Organization [facility] ystem Address [address] [place] [address] Phone Care Team Providers Care Strategic Planning Manager Name Role Phone Ilya Gusman MD Primary Care Provider [phone] Encounter Details Date Type Department Care Team (Late Contact Info) Description 01/13/2024 Procedure [facility] [place] [address] [place] [phone] Social History Tobacco Use Types Packs/Day Years [...] Description 10/10/2025 10:30 AM EST Office Visit [facility] - Internal Medicine [address] [place] [phone] Ilya Gusman MD [address] [place] [phone] Christophe Dailey MD [address] [place] [phone] 01/18/2026 1:00 PM EST Office Visit [facility] [address] [place] [address] Porsha Marsh, YARD DRIVER 70 [place] [address] 02/22/2026 11:00 AM EDT Office Visit [facility] [address] [place] [address] [address] [place] [phone] Alonso Bae MD [address] [place] [address] [address] [place] [address] 07/17/2026 2:00 PM EDT Office Visit [facility] - Internal Medicine [address] [place] [phone] Ilya Gusman MD [address] [place] [phone] 07/19/2026 11:40 AM EDT Office Visit [facility] [address] [place] [address] Yesi Perez MD [address] [place] [address] documented as of this encounter Visit Diagnoses Not on filedocumented in this encounter Additional Health Concerns Infection Onset Date Last Indicated Resolved Time C difficile Rule-Out 11/01/2024 11/02/2024 024 9:43 AM EST Assessment Noted Time PHQ-9 Depression Total Score: 9 06/05/20 20 9:52 AM EDT documented as of this encounter Care Teams Strategic Planning Manager Relationship Specialty Start Date End Date Ilya Gusman MD [address] [place] [phone] PCP - General 05/14/17 [facility] 09/01/25 documented as of this encounter
--- OUTSIDE RECORDS SUMMARY | 2025-10-06 22:27 | XMS_ITS | Encounter Summary ---
Author Organization [facility] Address [address] [place] [address] Phone Care Team Providers Care Web Marketing Intern Name Role Phone Ilya Gusman MD Primary Care Provider [phone] Encounter Details Date Type Department Care Team (Late st Contact Info) Description 11/30/2017 Orders Only [address] [phone] Non-Provider, Historical, RN Social History [...] Visit [facility] - Internal Medicine [address] [place] [phone] Ilya Gusman MD [address] [place] [phone] Christophe Dailey MD [address] [place] [phone] 01/18/2026 1:00 PM EST Office Visit [facility] [address] [place] [address] 1 [place] [address] Porsha Marsh, FORMING OPERATOR 70 [place] [address] 02/22/2026 11:00 AM EDT Office Visit [facility] [address] [place] [address] [address] [place] [phone] Alonso Bae MD [address] [place] [address] [address] [place] [address] 07/17/2026 2:00 PM EDT Office Visit [facility] - Internal Medicine [address] [place] [phone] Ilya Gusman MD [address] [place] [phone] 07/19/2026 11:40 AM EDT Office Visit [facility] [address] [place] [address] Yesi Perez MD [address] [place] [address] documented as of this encounter Procedures Procedure [...] as of this encounter Care Teams Web Marketing Intern Relationship Specialty Start Date End Date Ilya Gusman MD [address] [place] [phone] PCP - General 05/14/17 [facility] 09/01/25 documented as of this encounter
--- OUTSIDE RECORDS SUMMARY | 2025-10-06 22:27 | XMS_ITS | Encounter Summary ---
Author Organization [facility] ystem Address [address] [place] [address] Phone Care Team Providers Care Vigoureux Printer Name Role Phone Ilya Gusman MD Primary Care Provider [phone] Encounter Details Date Type Department Care Team (Late Contact Info) Description 02/01/2024 Scanned Document [facility] - Health Information Department [address] [place] [phone] Scan, No Provider Available [address] [place] [address] [place] [address] <No scans attached> Social History Tobacco Use [...] [facility] - Internal Medicine [address] [place] [phone] Ilya Gusman MD [address] [place] [phone] Christophe Dailey MD [address] [place] [address] [phone] 01/18/2026 1:00 PM EST Office Visit [facility] [address] [place] [address] Porsha Marsh, COIL CONNECTOR REPAIRER [address] [place] [address] 02/22/2026 11:00 AM EDT Office Visit [facility] [address] [place] [address] [address] [place] [phone] Alonso Bae MD [address] [place] [address] [address] [place] [address] 07/17/2026 2:00 PM EDT Office Visit [facility] - Internal Medicine [address] [place] [phone] Ilya Gusman MD [address] [place] [phone] 07/19/2026 11:40 AM EDT Office Visit [facility] [address] [place] [address] Yesi Perez MD [address] [place] [address] documented as of this encounter Visit Diagnoses Not on filedocumented in this encounter Additional Health Concerns Infection Onset Date Last Indicated Resolved Time C difficile Rule-Out 11/01/2024 11/02/2024 024 9:43 AM EST Assessment Noted Time PHQ-9 Depression Total Score: 9 06/05/20 20 9:52 AM EDT documented as of this encounter Care Teams Vigoureux Printer Relationship Specialty Start Date End Date Ilya Gusman MD [address] [place] [phone] PCP - General 05/14/17 [facility] 09/01/25 documented as of this encounter"
--- OUTSIDE RECORDS SUMMARY | 2025-10-06 22:27 | XMS_ITS | Clinical Summary ---
Author Organization [facility] Address [address] [place] [id number] Care Team Providers Care Manager Integration Name Role Phone Ilya Gusman MD Primary Care Provider [phone] Allergies Active Allergy Reactions Criticality Noted Date [...] (200 mg total) by mouth before bedtime. Active sennosides (SENOKOT) 8.6 mg [...] 06/03/20 25 Active naloxone (NARCAN) 4 mg/actuation Nathalie nasal spray 1 spray (4 mg total) [...] with withdrawal, unspecified 01/09/2024 Gastrointestinal hemorrhage, unspecified 02/14/2 024 Essential (primary) hypertension 01/06/2024 Tremor, unspecified [...] Acute bronchospasm 12/30/2022 Opioid use, unspecified, uncomplicated 3 Nausea with vomiting, unspecified 12/01/2022 Eosinophilia, unspecified [...] unspecified 020 Muscle spasm of back 09/15/2020 residential (current) use of anticoagulants 2019 Dorsalgia, unspecified [...] Encounters Date Type Department Care Team Description 10/05/2025 9:25 PM EST - 10/06/2025 8:01 PM EST Hospital Encounter [facility] Emergency Department [address] [place] [id number] Kg Mccollum MD Kim, Claudia, MD Slakey, John, MD Stonely, Wesley, MD Hallucination (Primary Dx); Bipolar affective disorder, remission status unspecified (CMS-HCC); PTSD (post-traumatic stress disorder); Weakness; [place] adverse reaction Discharge Disposition: [facility] 10/05/2025 Travel 09/22/2025 10:28 AM EDT - 09/23/2025 1:20 PM EDT Hospital Encounter [address] [address] Kg Mccollum MD Sen, Rohan, MD Garcia, Antonio, DO Alcoholic intoxication without complication (Primary Dx); Weakness; Depression, unspecified depression type; Alcohol withdrawal syndrome without complication (CMS-HCC); Suicidal ideation; Elevated lactic acid level; Post traumatic stress disorder (PTSD) [F43.10]; Alcohol use, unspecified with intoxication, unspecified [F10.929] Discharge Disposition: [facility] 09/22/2025 Travel 09/03/2025 5:34 AM EDT - 09/03/2025 8:52 AM EDT Emergency [facility] Emergency Department [address] [place] [phone] Syed Fox MD Hypertension, unspecified type (Primary Dx); Palpitations Discharge Disposition: Home or Self Care 09/03/2025 Travel 08/16/2025 12:40 PM EDT - 08/17/2025 3:56 PM EDT Hospital Encounter [facility] Clinical Decision Unit [address] [place] [phone] Syed Fox MD Newcomb, Mark, MD Abou Rjeily, Charbel, MD Nachiappan, MD Gilma Neal Ahmad H, MD Expressive aphasia (Primary Dx); Altered mental status, unspecified altered mental status type; Dupuytren contracture; Wound infection after surgery Discharge Disposition: Home-Health Care Sv 08/16/2025 Travel 07/23/2025 3:33 PM EDT - 07/24/2025 12:58 AM EDT Emergency [facility] Emergency Department [address] [place] [phone] Pita Moore, Tiago Taylor MD Hypertension, unspecified type (Primary Dx) Discharge Disposition: Home or Self Care 07/23/2025 Travel 07/22/2025 Results Follow-Up [facility] [address] [place] [address] [place] [phone] Verito Villareal MD Surgical Pathology Tissue Exam 07/21/2025 2:04 PM EDT Anesthesia Event [facility] Endoscopy [address] [place] [address] [place] [address] Rojas Fabian MD Novak, Lisa C, PONY CYLINDER [employer]ESS 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 07/21/2025 1:37 PM EDT - 07/21/2025 11:59 PM EDT Hospital Encounter [facility] Endoscopy [address] [place] [address] [place] [address] Verito Villareal MD Matthes, Kai, MD Novak, Lisa C, Roberta Lemus RN Husband, Giselle Abnormal CT scan, colon (Primary Dx); Proctitis Discharge Disposition: Home or Self Care 07/18/2025 Telephone [facility] [address] [place] [address] [address] [place] [address] Jany Chavez MA medication question 07/07/2025 8:38 AM EDT - 07/08/2025 2:55 PM EDT Hospital Encounter [facility] [address] [place] [address] 2nd [place] [address] Phillip Moore MD Ammous, Ahmad H, MD Abdominal pain, unspecified abdominal location (Primary Dx); Atrial fibrillation, unspecified type Discharge Disposition: Home-Health Care Svc 07/06/2025 10:01 PM EDT - 07/07/2025 3:16 AM EDT Emergency [facility] Emergency Department [address] [place] [address] Tiago Haider MD Abdominal pain, unspecified abdominal location (Primary Dx); Abnormal CT of the abdomen Discharge Disposition: Home or Self Care 07/06/2025 Travel from Last 3 Months Immunizations Immunization Administration [...] (PCV13/PREVNAR 13) 03/27/2018 Pneumococcal polysaccharide vaccine 23-valent (PPSV23/[id number]) 01/15/2019,01/15/2013 TD (TENIVAC/TDVAX) 05/17/2016 Tdap Vaccine (BOOSTRIX/ADACEL) [...] and Family Not on file 09/23/2025 Attends [employer] Services Not on file 09/23 Active Member [...] any time in the past 12 [facility], were you homeless or living in a halfway (including now)? No 10/05/2025 [facility] Utilities Answer Date Recorded In the [...] Mass Index 27.32 10/05/2025 9:33 PM EST Plan of Treatment Health Maintenance Due Date Last Done Comments SDM 1957 Depression Screening 1969 Diabetic Eye Exam 1975 Hepatitis C Screening 1975 CT Colonography 2002 FIT 2002 Multitarget Stool DNA (Cologuard) 2002 Sigmoidoscopy 2002 Zoster Vaccine (2 of 2) 12/27/2019 11/01/2019, 11/01 Medicare Initial AWV [id number] 07/25/2023 Pneumococcal Vaccine: 50+ Years (3 of 3 - PCV20 or PCV21) 01/15/2024 01/15/2019, 03/27/2018, 01/15/2013 COVID-19 Vaccine (5 - season) 2025 09/23/2023, 10/11/2021, 03/13/2021, Additional history exists Influenza Vaccine (#1) 2025 , 08/05/2023, 08/05/2023, Additional history exists FOBT 10/31/2025 10/31/2024 Urine Microalbumin 02/04/2026 02/04/2025, 12/26/2023 Hemoglobin A1c 03/23/2026 09/23/2025, 09/02/2025, 06/03/2025, Additional history exists Lipid Panel 08/17/2026 08/17/2025, 05/0 01/2025, 03/10/2025, Additional history exists Blood Pressure 10/06/2026 10/06/2025 PSA 07/18/2027 07/18/2025, 05/0 01/2025, 02/18/2025, Additional [...] Procedure Name Priority Date/Time Associated Diagnosis Comments URINALYSIS WITH URINE CULTURE REFLEX STAT 10/06/2025 9:41 AM EST DRUG SCREEN, URINE STAT 10/06/2025 9: 41 AM EST ECG 12-LEAD STAT 10/05/2025 10:28 PM EST Procedure Note - 10/05/2025 10:28 PM ESTThis note is in progress. POSSIBLE LATERAL MYOCARDIAL INFARCTION , PROBABLY OLD [30 ms Q WAVE INI/aVL/V5/V6] ---CRITICAL TEST RESULT--- XR PORTABLE CHEST 1 VW STAT 10/05/2025 10:24 PM EST CBC AND DIFFERENTIAL STAT 10/05/2025 10:19 PM EST CBC AND DIFFERENTIAL STAT 10/05/2025 10:19 PM EST TSH STAT 10/05/2025 10:19 PM EST ETHANOL, BLOOD STAT 10/05/2025 10:19 PM EST APTT STAT 10/05/2025 10:19 PM EST PROTIME-INR STAT 10/05/2025 10:19 PM EST TROPONIN (ALL) STAT 10/05/2025 10:19 PM EST TOXICOLOGY SCREEN, BLOOD STAT 10/05/2025 10:19 PM EST LITHIUM LEVEL STAT 10/05/2025 10:19 PM EST MAGNESIUM STAT 10/05/2025 10:19 PM EST COMPREHENSIVE METABOLIC PANEL STAT 10/05/2025 10:19 PM EST SARS COV2/INFLUENZA A/B AND RSV STAT 10/05/2025 10:15 PM EST POCI GLUCOSE Routine 09/23/2025 5:55 PM EDT [...] ECG 12-LEAD STAT 09/22/2025 10:17 AM EDT TROPONIN (ALL) STAT 09/03/2025 7:53 AM EDT [...] ECG 12-LEAD STAT 07/06/2025 8:41 PM EDT from Last 3 Months Results * (ABNORMAL) Drug Screen, Urine (10/06/2025 9:41 AM EST) Only the most recent of3 resultswithin the time period is included. [facility] Amphetamines Screen, Urine Negative Negative 10/06/2025 1:17 PM EST [facility] Barbiturates Screen, Urine Negative Negative 10/06/2025 1:17 PM [facility] Benzodiazepine Screen, Urine Positive(A) Negative 10/06/2025 1:17 PM [facility] Buprenorphine Screen, Urine Negative Negative 10/06/2025 1:17 PM [facility] Cannabinoids Screen, Urine Negative Negative 10/06/2025 1:17 PM [facility] Cocaine Metabolite Screen, Urine Negative Negative 10/06/2025 1:17 PM [facility] Fentanyl Screen, Urine Negative Negative 10/06/2025 1:17 PM [facility] Methadone Screen, Urine Negative Negative 10/06/2025 1:17 PM [facility] Opiates Screen, Urine Positive(A) Negative 10/06/2025 1:17 PM [facility] Oxycodone Screen, Urine Negative Negative 10/06/2025 1:17 PM [facility] Propoxyphene Screen, Urine Negative Negative 10/06/2025 1:17 PM [facility] Tricyclics Screen Positive(A) Negative 2024 1:17 PM [facility] Comment 10/06/2025 1:17 PM [facility] Comment: The cut-off concentration for [...] Mccollum MD URINE ORDERABLES Final Res ult [facility] [address] [place] [id number], [place] * (ABNORMAL) Urinalysis with Reflex to Urine Culture (10/06/2025 9:41 AM EST) Only the most recent of6 resultswithin the time period is included. Color, Urine Yellow Yellow 10/06/2025 9:59 AM [facility] Clarity, Urine Clear Clear 10/06/2025 9:59 AM [facility] pH, Urine 7.0(H) 5.0 - 6.0 10/06/2025 9:59 AM [facility] Protein, Urine Negative Negative, 1+ 10/06/2025 9:59 AM [facility] Glucose, Urine Negative Negative 10/06/2025 9:59 AM [facility] Ketone, Urine Negative Negative, Trace 10/06/2025 9:59 AM [facility] Bilirubin, Urine Negative Negative 10/06/2025 9:59 AM [facility] Urobilinogen, Urine Negative 0.2-1.0 mg/dL 10/06/2025 9:59 AM [facility] Blood, Urine Negative Negative 10/06/2025 9:59 AM [facility] Leukocyte Esterase, Urine Negative Negative 10/06/2025 9:59 AM [facility] Nitrite, Urine Negative Negative 10/06/2025 9:59 AM [facility] Specific Munith, Urine 1.013 1.005 - 1.030 10/06/2025 9:59 AM [facility] White Blood Cells, Urine 0-2 <5 cells/HPF 10/06/2025 9:59 AM [facility] Red Blood Cell, Urine None Seen <2 cells/HPF 10/06/2025 9:59 AM [facility] Bacteria Urine None Seen None Seen 10/06/2025 9:59 AM [facility] Mucous Threads Trace None Seen, Trace 10/06/2025 9:59 AM [facility] Urine MID-STREAM URINE SPECIMEN / Unknown Collection / Unknown 10/06/2025 9:41 AM EST 10/06/2025 9:45 AM EST us Kg Mccollum MD URINE ORDERABLES Final Res ult [facility] [address] [place] [address], [place] * XR Chest 1 VW Portable (10/05/2025 10:24 PM EST) Only the most recent of2 resultswithin [...] ORD ERABLES Final Result * Troponin (once) (10/05/2025 10:19 PM EST) Only the most recent of5 resultswithin the time period is included. Troponin T HS 10 <=19 ng/L 10/05/2025 10:58 PM EST [facility] Blood PERIPHERAL BLOOD SPECIMEN / Unknown Venipuncture / Unknown 10/05/2025 10:19 PM EST 10/05/2025 10:27 PM EST Kg Mccollum MD LAB BLOOD ORDERABLES Final Result [facility] [address] [place] [address], * (ABNORMAL) CBC and Differential (10/05/2025 10:19 PM EST) Only the most recent of8 resultswithin the time period is included. WBC 7.18 3.90 - 10.80 K/uL 10/05/2025 10:30 PM [facility] RBC 3.51(L) 4.42 - 5.73 M/uL 10/05/2025 10:30 PM [facility] Hemoglobin 10.9(L) 14.0 - 17.3 g/dL 10/05/2025 10:30 PM [facility] Hematocrit 32.0(L) 40.1 - 51.0 % 10/05/2025 10:30 PM [facility] MCH 31.1 25.6 - 32.2 pg 10/05/2025 10:30 PM [facility] MCHC 34.1 32.0 - 36.0 g/dL 10/05/2025 10:30 PM [facility] MCV 91 83 - 96 fL 10/05/2025 10:30 PM [facility] RDW 13.9 11.5 - 14.0 % 10/05/2025 10:30 PM [facility] Platelet Count 184 154 - 369 K/uL 10/05/2025 10:30 PM [facility] Neutrophil 70.5 % 10/05/2025 10:30 PM [facility] Lymphocyte 18.7 % 10/05/2025 10:30 PM [facility] Monocyte 7.2 % 10/05/2025 10:30 PM [facility] Eosinophil 2.4 % 10/05/2025 10:30 PM [facility] Basophil 1.1 % 10/05/2025 10:30 PM [facility] Immature Granulocyte (Rogers, Myelo, Promyelocyte) 0.1 % 10/05/2025 10:30 PM [facility] Absolute Neutrophil Count 5.06 1.68 - 7.99 K/uL 10/05/2025 10:30 PM [facility] Absolute Immature Granulocyte (Rogers, Myelo, Promyelocyte) 0.01 0.00 - 0.09 K/uL 10/05/2025 10:30 PM [facility] Absolute Lymphocyte Count 1.34 0.66 - 4.75 K/uL 10/05/2025 10:30 PM [facility] Absolute Monocyte Count 0.52 0.16 - 1.40 K/uL 10/05/2025 10:30 PM [facility] Absolute Eosinophil Count 0.17 0.00 - 0.60 K/uL 10/05/2025 10:30 PM [facility] Absolute Basophil Count 0.08 0.00 - 0.32 K/uL 10/05/2025 10:30 PM [facility] Blood PERIPHERAL BLOOD SPECIMEN / Unknown Venipuncture / Unknown 10/05/2025 10:19 PM EST 10/05/2025 10:27 PM EST us Kg Mccollum MD LAB BLOOD ORDERABLES Final Result [facility] [address] [place] [address], * (ABNORMAL) Plasma Toxicology Screen (10/05/2025 10:19 PM EST) Acetaminophen Result,Blood <5(L) 10 - 30 ug/mL 10/05/2025 11:06 PM [facility] Alcohol <10 <10 mg/dL 10/05/2025 11:06 PM [facility] Salicylate Level, Blood <1 <30 mg/dL 10/05/2025 11:06 PM [facility] Blood PERIPHERAL BLOOD SPECIMEN / Unknown Venipuncture / Unknown 10/05/2025 10:19 PM EST 10/05/2025 10:27 PM EST us Kg Mccollum MD LAB BLOOD ORDERABLES Final Result Performing Organization Address City/[facility]/ZIP Co de Phone Number [facility] [address] [place] [phone], [place] * APTT (10/05/2025 10:19 PM EST) Only the most recent of3 resultswithin the time period is included. PTT 30 23 - 36 s 10/05/2025 10:56 PM [facility] Comment: Unfractionated heparin therapeutic range for hospitalized patients: [id number] 60 to 80 seconds Blood PERIPHERAL BLOOD SPECIMEN / Unknown Venipuncture / Unknown 10/05/2025 10:19 PM EST 10/05/2025 10:27 PM EST Kg Mccollum MD LAB BLOOD ORDERABLES Final Result Performing Organization Address City/[facility]/ZIP Co de Phone Number [facility] [address] [place] [address], [place] * (ABNORMAL) PT-INR (10/05/2025 10:19 PM EST) Only the most recent of3 resultswithin the time period is included. Prothrombin Time 16.0(H) 12.1 - 14.6 s 10/05/2025 10:56 PM [facility] INR 1.2 <5.0 10/05/2025 10:56 PM [facility] Blood PERIPHERAL BLOOD SPECIMEN / Unknown Venipuncture / Unknown 10/05/2025 10:19 PM EST 10/05/2025 10:27 PM EST Kg Mccollum MD LAB BLOOD ORDERABLES Final Result [facility] [address] [place] [address], [place] * TSH (10/05/2025 10:19 PM EST) Only the most recent of3 resultswithin the time period is included. TSH 3.44 0.30 - 4.50 uIU/mL 10/05/2025 10:58 PM [facility] Blood PERIPHERAL BLOOD SPECIMEN / Unknown Venipuncture / Unknown 10/05/2025 10:19 PM EST 10/05/2025 10:27 PM EST Kg Mccollum MD LAB BLOOD ORDERABLES Final Result Performing Organization Address [facility] de Phone Number [facility] [address] [place] [address], [place] * Magnesium (10/05/2025 10:19 PM EST) Only the most recent of6 resultswithin the time period is included. Magnesium, Blood 1.8 1.6 - 2.6 mg/dL 10/05/2025 10:58 PM [facility] Blood PERIPHERAL BLOOD SPECIMEN / Unknown Venipuncture / Unknown 10/05/2025 10:19 PM EST 10/05/2025 10:27 PM EST Kg Mccollum MD LAB BLOOD ORDERABLES Final Result Performing Organization Address [facility] [address] [place] [address], [place] * Ethanol (10/05/2025 10:19 PM EST) Only the most recent of5 resultswithin the time period is included. Alcohol <10 <10 mg/dL 10/05/2025 10:58 PM [facility] Blood PERIPHERAL BLOOD SPECIMEN / Unknown Venipuncture / Unknown 10/05/2025 10:19 PM EST 10/05/2025 10:27 PM EST Kg Mccollum MD LAB BLOOD ORDERABLES Final Result Performing Organization Address [facility] Phone Number [facility] [address] [place] [phone], [place] * (ABNORMAL) [place] Level (10/05/2025 10:19 PM EST) [place] 0.2(L) 0.5 - 1.5 mmol/L 10/05/2025 10:52 PM [facility] Blood PERIPHERAL BLOOD SPECIMEN / Unknown Venipuncture / Unknown 10/05/2025 10:19 PM EST 10/05/2025 10:27 PM EST us Kg Mccollum MD LAB BLOOD ORDERABLES Final Result [facility] [address] [place] [address], * (ABNORMAL) Comprehensive Metabolic Panel (10/05/2025 10:19 PM EST) Only the most recent of8 resultswithin the time period is included. Sodium 135 135 - 146 mmol/L 10/05/2025 10:58 PM [facility] Potassium 3.5 3.4 - 5.2 mmol/L 10/05/2025 10:58 PM [facility] Comment:Samples tested in se rum may exhibit a higher potassium value than those tested on plasma. Our current range is based on plasma testing. Chloride 102 98 - 110 mmol/L 10/05/2025 10:58 PM [facility] Total CO2/Bicarbonate 21(L) 24 - 32 mmol/L 10/05/2025 10:58 PM [facility] Anion Gap 12 2 - 15 mmol/L 10/05/2025 10:58 PM [facility] BUN 21 7 - 24 mg/dL 10/05/2025 10:58 PM [facility] Creatinine, Blood 1.00 0.60 - 1.30 mg/dL 10/05/2025 10:58 PM [facility] Glucose, Blood 168(H) 50 - 100 mg/dL 10/05/2025 10:58 PM [facility] Calcium 8.5 8.5 - 10.5 mg/dL 10/05/2025 10:58 PM [facility] Total Protein 6.2 6.2 - 8.2 g/dL 10/05/2025 10:58 PM [facility] Albumin, Blood 3.7 3.4 - 5.2 g/dL 10/05/2025 10:58 PM [facility] AST (SGOT) 33 11 - 40 U/L 10/05/2025 10:58 PM [facility] ALT (SGPT) 22 7 - 40 U/L 10/05/2025 10:58 PM [facility] Alkaline Phosphatase 43 40 - 130 U/L 10/05/2025 10:58 PM [facility] Total Bilirubin 0.7 0.2 - 1.2 mg/dL 10/05/2025 10:58 PM [facility] Estimated GFR(CKD-EPI) 82 mL/min/BSA 10/05/2025 10:58 PM [facility] Blood PERIPHERAL BLOOD SPECIMEN / Unknown Venipuncture / Unknown 10/05/2025 10:19 PM EST 10/05/2025 10:27 PM EST us Kg Mccollum MD LAB BLOOD ORDERABLES Final Result Performing Organization Address [facility]/ZIP Co de Phone Number [address] [address], [place] * Covid/Flu/RSV (Rapid) (10/05/2025 10:15 PM EST) Only the most recent of2 resultswithin the time period is included. Coronavirus SARS-CoV-2 Negative Negative 10/05/2025 11:12 PM [facility] Influenza A Negative Negative 10/05/2025 11:12 PM [facility] Influenza B Negative Negative 10/05/2025 11:12 PM [facility] RSV by PCR Negative Negative 10/05/2025 11:12 PM [facility] Respiratory NASOPHARYNGEAL SWAB / Unknown Collection / Unknown 10/05/2025 10:15 PM EST 10/05/2025 10:27 PM EST [facility] - 10/05/2025 11:12 PM EST Test performed with [employer] GeneXpert SARS-CoV-2 PCR assay, which has received emergency use authorization (EUA) by the U.S. Food and Drug Administration. Negative results do not preclude SARS-CoV-2 infection and should not be used as the sole basis for treatment or other patient management decisions. us Kg Mccollum MD BODY FLUIDS AND STOOLS ORD ERABLES Final Result [facility] [address] [place] [address], [place] * POCT Glucose (09/23/2025 5:55 PM EDT) Only the most recent of5 resultswithin the time period is included. Glucose, POC 131 75 - 140 mg/dL 09/23/2025 5:56 PM EDT [facility] Comment: @Serial Qylwew=[id number] @Table And Desk Finisher [id number] Blood 09/23/2025 5:55 PM EDT 09/23/2025 5:56 PM EDT us Paulie Jimenez DO POCT ORDERABLES - DEVICE Final Result Performing Organization Address City/[facility]/ZIP Co de Phone Number [facility] [address] [place] [address], [place] * Lactic Acid with 3 Hour Reflex (09/23/2025 10:12 AM EDT) Only the most recent of3 resultswithin the time period is included. [facility] Lactic Acid, Venous, Peripheral 0.9 0.5 - 2.0 mmol/L 09/23/2025 11:04 AM EDT [facility] Blood PERIPHERAL BLOOD SPECIMEN / Unknown Venipuncture / Unknown 09/23/2025 10:12 AM EDT 09/23/2025 10:24 AM EDT us Paulie Jimenez DO LAB BLOOD ORDERABLES Final Res ult [facility] [address] [place] [address], [place] * (ABNORMAL) Basic Metabolic Panel (09/23/2025 7:46 AM EDT) Only the most recent of2 resultswithin the time period is included. Sodium 140 135 - 146 mmol/L 09/23/2025 8:35 AM EDT [facility] Potassium 3.5 3.4 - 5.2 mmol/L 09/23/2025 8:35 AM EDT [facility] Chloride 108 98 - 110 mmol/L 09/23/2025 8:35 AM [facility] Total CO2/Bicarbonat e 23(L) 24 - 32 mmol/L 09/23/2025 8:35 AM [facility] Anion Gap 10 2 - 15 mmol/L 09/23/2025 8:35 AM [facility] BUN 16 7 - 24 mg/dL 09/23/2025 8:35 AM [facility] Creatinine, Blood 0.70 0.60 - 1.30 mg/dL 09/23/2025 8:35 AM [facility] Glucose, Blood 99 50 - 100 mg/dL 09/23/2025 8:35 AM [facility] Calcium 8.6 8.5 - 10.5 mg/dL 09/23/2025 8:35 AM [facility] Estimated GFR(CKD-EPI) 100 mL/min/BSA 09/23/2025 8:35 AM [facility] Blood PERIPHERAL BLOOD SPECIMEN / Unknown Venipuncture / Unknown 09/23/2025 7:46 AM EDT 09/23/2025 8:06 AM EDT us Kameron Braswell MD LAB BLOOD ORDERABLES Final Resul t [facility] [address] [place] [id number], * Hemoglobin A1C (09/23/2025 7:45 AM EDT) Only the most recent of2 resultswithin the time period is included. Hemoglobin A1C 5.5 4.6 - 5.6 % 09/23/2025 1:21 PM T [facility] Estimated Average Glucose 111 mg/dL 09/23/2025 1:21 PM [facility] Estimated Average Glucose 112 mg/dL 09/23/2025 1:21 PM [facility] Blood PERIPHERAL BLOOD SPECIMEN / Unknown Venipuncture / Unknown 09/23/2025 7:45 AM EDT 09/23/2025 8:06 AM EDT us Kameron Braswell MD LAB BLOOD ORDERABLES Final Resul t Performing Organization Address [facility] de Phone Number [facility] [address] [place] [phone], [place] * (ABNORMAL) Lactic Acid, Reflexed (09/22/2025 6:52 PM EDT) Only the most recent of2 resultswithin the time period is included. Lactic Acid, Venous, Peripheral 3.9(H) 0.5 - 2.0 mmol/L 09/22/2025 7:25 PM EDT [facility] Blood Venipuncture / Unknown 09/22/2025 6:52 PM EDT 09/22/2025 7:04 PM EDT us Kg Mccollum MD LAB BLOOD ORDERABLES Final Result Performing Organization Address [facility] de Phone Number [facility] [address] [place] [phone], [place] * hs-Troponin T (09/22/2025 3:39 PM EDT) Troponin T HS 12 <=19 ng/L 09/22/2025 4:18 PM EDT [facility] Blood PERIPHERAL BLOOD SPECIMEN / Unknown Venipuncture / Unknown 09/22/2025 3:39 PM EDT 09/22/2025 3:52 PM EDT Kameron Braswell MD LAB BLOOD ORDERABLES Final Resul t Performing Organization Address [facility] de Phone Number [facility] [address] [place] [phone], [place] * CT Head WO IV Contrast (09/22/2025 11:15 AM EDT) Only the most recent of2 resultswithin the time period is included. Anatomical Region Laterality Modality Head Computed Tomogra phy 09/22/2025 11:1 5 AM EDT Impressions 09/22/2025 11:18 AM EDT 1. No evidence of acute intracranial pathology. 2. Similar generalized atrophy and chronic small vessel disease. 3. Mild to moderate chronic paranasal sinusitis. Signed By: Hector Figueroa on 09/22/2025 11:18 AM on [id number] Narrative 09/22/2025 11:18 AM EDT EXAM: CT [...] Hector Figueroa on 09/22/2025 11:18 AM on [id number] us Kg Mccollum MD IMG CT ORDERABLES Final Re sult * (ABNORMAL) Blood Gas, Venous (09/22/2025 10:49 AM EDT) pH, Venous 7.53(H) 7.33 - 7.43 09/22/2025 10:56 AM EDT [facility] pCO2, Venous 26(L) 38 - 50 mmHg 09/22/2025 10:56 AM EDT [facility] pO2, Venous 47 30 - 50 mmHg 09/22/2025 10:56 AM EDT [facility] HCO3, Venous 22 22 - 29 mmol/L 09/22/2025 10:56 AM EDT [facility] Total CO2, Venous 23 22 - 27 mmol/L 09/22/2025 10:56 AM [facility] O2 Saturation, Venous 82.2 60 - 85 % 09/22/2025 10:56 AM EDT [facility] Base Excess, Venous -0.6 -2.0 - 2.0 mmol/L 09/22/2025 10:56 AM EDT [facility] Blood Venipuncture / Unknown 09/22/2025 10:49 AM EDT 09/22/2025 10:53 AM EDT us Kg Mccollum MD LAB BLOOD ORDERABLES Final Result [facility] [address] [place] [address], [place] * XR Chest 2 Vw (09/22/2025 [...] DIAGNOSTIC IMAGING ORD ERABLES Final Result * Procalcitonin (09/22/2025 10:18 AM EDT) Procalcitonin 0.05 <0.15 ng/mL 09/22/2025 3:04 PM EDT [facility] Blood PERIPHERAL BLOOD SPECIMEN / Unknown Venipuncture / Unknown 09/22/2025 10:18 AM EDT 09/22/2025 10:22 AM EDT Kg Mccollum MD LAB BLOOD ORDERABLES Final Result [facility] [address] [place] [address], * NT-proBNP (09/22/2025 10:18 AM EDT) NT-ProBNP 488 <900 pg/mL 09/22/2025 10:56 AM EDT [facility] Blood PERIPHERAL BLOOD SPECIMEN / Unknown Venipuncture / Unknown 09/22/2025 10:18 AM EDT 09/22/2025 10:22 AM EDT Kg Mccollum MD LAB BLOOD ORDERABLES Final Result Performing Organization Address [facility] Phone Number [facility] [address] [place] [address], [place] * Beta-Hydroxybutyrate (09/22/2025 10:18 AM EDT) Beta-hydroxybu trate <0.20 0.05 - 6.00 mmol/L 09/22/2025 11:31 AM EDT [facility] Blood PERIPHERAL BLOOD SPECIMEN / Unknown Venipuncture / Unknown 09/22/2025 10:18 AM EDT 09/22/2025 10:22 AM EDT Kg Mccollum MD LAB BLOOD ORDERABLES Final Result Performing Organization Address [facility] Phone Number [facility] [address] [place] [address], [place] * Gold Top (09/22/2025 10:18 AM EDT) Only the most recent of5 resultswithin the time period is included. Gold Top Tube Received 09/22/2025 11:09 AM EDT [facility] Blood PERIPHERAL BLOOD SPECIMEN / Unknown Venipuncture / Unknown 09/22/2025 10:18 AM EDT 09/22/2025 10:22 AM EDT Kg Mccollum MD LAB BLOOD ORDERABLES Final Result Performing Organization Address [facility] de Phone Number [facility] [address] [place] [address], [place] * Lipase (09/22/2025 10:18 AM EDT) Only the most recent of2 resultswithin the time period is included. Lipase 18 3 - 68 U/L 09/22/2025 11:31 AM EDT [facility] Blood PERIPHERAL BLOOD SPECIMEN / Unknown Venipuncture / Unknown 09/22/2025 10:18 AM EDT 09/22/2025 10:22 AM EDT Kg Mccollum MD LAB BLOOD ORDERABLES Final Result Performing Organization Address [facility] Phone Number [facility] [address] [place] [address], [place] * (ABNORMAL) Acetaminophen Level (09/22/2025 10:18 AM EDT) Acetaminophen Result,Blood <5(L) 10 - 30 ug/mL 09/22/2025 2:46 PM EDT [facility] Blood PERIPHERAL BLOOD SPECIMEN / Unknown Venipuncture / Unknown 09/22/2025 10:18 AM EDT 09/22/2025 10:22 AM EDT Kg Mccollum MD LAB BLOOD ORDERABLES Final Result Performing Organization Address [facility] Number [facility] [address] [place] [address], [place] * Salicylate Level (09/22/2025 10:18 AM EDT) Salicylate Level, Blood <1 <30 mg/dL 09/22/2025 2:46 PM EDT [facility] Blood PERIPHERAL BLOOD SPECIMEN / Unknown Venipuncture / Unknown 09/22/2025 10:18 AM EDT 09/22/2025 10:22 AM EDT Kg Mccollum MD LAB BLOOD ORDERABLES Final Result Performing Organization Address [facility] Phone Number [facility] [address] [place] [address], [place] * ECG 12 lead (09/22/2025 10:17 AM EDT) Only the most recent of6 resultswithin the time period is included. Ventricular Heart Rate 83 BPM EKG [facility] UT Interval 177 ms EKG [facility] QRSD Interval 113 ms EKG [facility] QT Interval 412 ms EKG [facility] QTC Interval 486 ms EKG [facility] P [place] 89 degrees EKG [facility] R [place] -32 degrees EKG [facility] T Wave [place] 24 degrees EKG [facility] 09/22/2025 10:1 7 AM EDT 10/03/2025 11:04 AM EST Narrative EKG [facility] - 10/03/2025 11:04 AM EST SINUS RHYTHM LEFT AXIS DEVIATION [QRS AXIS < -30] POSSIBLE LATERAL MYOCARDIAL INFARCTION , PROBABLY OLD [30 ms Q WAVE IN I/aVL/V5/V6] ABNORMAL ECG Confirmed by Tremaine Rodrigez ([id number]) on 10/03/2025 11:04:23 AM Procedure Note Tremaine Rodrigez MD - 10/03/2025 SINUS RHYTHM LEFT AXIS DEVIATION [QRS AXIS < -30] POSSIBLE LATERAL MYOCARDIAL INFARCTION , PROBABLY OLD [30 ms Q WAVE INI/aVL/V5/V6] ABNORMAL ECG Confirmed by Tremaine Rodrigez ([id number]) on 10/03/2025 11:04:23 AM us Kg Mccollum MD ECG ORDERABLES Final Resu lt Performing Organization Address City/[facility]/ZIP Co de Phone Number EKG [facility] [address] [place] [address] * Blue Top (09/03/2025 6:21 AM EDT) Only the most recent of3 resultswithin the time period is included. Blue Top Tube Received 09/03/2025 8:02 AM EDT [facility] Blood PERIPHERAL BLOOD SPECIMEN / Unknown Venipuncture / Unknown 09/03/2025 6:21 AM EDT 09/03/2025 6:24 AM EDT us Syed Fox MD LAB BLOOD ORDERABLES Final Res ult [facility] [address] [place] [address], [place] * MRI Brain Without Contrast (08/17/2025 10:54 AM EDT) Anatomical Region Laterality Modality Head Magnetic Resonan ce 08/17/2025 11:1 5 AM EDT Impressions 08/17/2025 11:18 AM EDT 1. No acute intracranial abnormality identified. 2. Additional chronic findings as above. Signed By: Celestino Rome on 08/17/2025 11:18 AM on [id number] Narrative 08/17/2025 11:18 AM EDT MRI HEAD [...] Celestino Rome on 08/17/2025 11:18 AM on [id number] Moris Carrasco MD IMG MRI ORDERABLES Final Result * (ABNORMAL) CBC (08/17/2025 4:59 AM EDT) Only the most recent of2 resultswithin the time period is included. WBC 2.47(L) 3.90 - 10.80 K/uL 08/17/2025 5:50 AM [facility] RBC 3.33(L) 4.42 - 5.73 M/uL 08/17/2025 5:50 AM [facility] Hemoglobin 10.1(L) 14.0 - 17.3 g/dL 08/17/2025 5:50 AM [facility] Hematocrit 31.1(L) 40.1 - 51.0 % 08/17/2025 5:50 AM [facility] MCH 30.3 25.6 - 32.2 pg 08/17/2025 5:50 AM [facility] MCHC 32.5 32.0 - 36.0 g/dL 08/17/2025 5:50 AM [facility] MCV 93 83 - 96 fL 08/17/2025 5:50 AM [facility] RDW 15.7(H) 11.5 - 14.0 % 08/17/2025 5:50 AM [facility] Platelet Count 146(L) 154 - 369 K/uL 08/17/2025 5:50 AM [facility] Blood PERIPHERAL BLOOD SPECIMEN / Unknown Venipuncture / Unknown 08/17/2025 4:59 AM EDT 08/17/2025 5:44 AM EDT Moris Carrasco MD LAB BLOOD ORDERABLES Fatmata l Result Performing Organization Address City/[facility]/ZIP Co de Phone Number [facility] [address] [place] [address], [place] * Phosphorus (08/17/2025 4:59 AM EDT) [facility] Phosphorus 3.7 2.3 - 4.6 mg/dL 08/17/2025 6:15 AM EDT [facility] Blood PERIPHERAL BLOOD SPECIMEN / Unknown Venipuncture / Unknown 08/17/2025 4:59 AM EDT 08/17/2025 5:45 AM EDT us Moris Carrasco MD LAB BLOOD ORDERABLES Fatmata l Result Performing Organization Address [facility] de Phone Number [facility] [address] [place] [address], [place] * (ABNORMAL) Lipid Panel (08/17/2025 4:59 AM EDT) [facility] Cholesterol 143 125 - 200 mg/dL 08/17/2025 6:15 AM EDT [facility] Triglycerides 86 55 - 150 mg/dL 08/17/2025 6:15 AM EDT [facility] HDL Cholesterol 74(H) 40 - 65 mg/dL 08/17/2025 6:15 AM EDT [facility] LDL Cholesterol 52 <=130 mg/dL 08/17/2025 6:15 AM EDT [facility] Blood PERIPHERAL BLOOD SPECIMEN / Unknown Venipuncture / Unknown 08/17/2025 4:59 AM EDT 08/17/2025 5:45 AM EDT us Moris Carrasco MD LAB BLOOD ORDERABLES Fatmata l Result Performing Organization Address [facility] Co de Phone Number [facility] [address] [place] [address], [place] * Culture, Aerobic (Incl Gram) (08/17/2025 12:11 AM EDT) Only the most recent of2 resultswithin the time period is included. [facility] Culture Normal yue BG 08/19/2025 10:25 AM EDT [facility] Smear,Gram Stain No neutrophils seen 08/19/2025 10:25 AM EDT [facility] Smear,Gram Stain Rare Gram positive cocci in pairs 08/19/2025 10:25 AM EDT [facility] xOther HAND STRUCTURE / Unknown 08/17/2025 12:11 AM EDT 08/17/2025 12:11 AM EDT Moris Carrasco MD MICROBIOLOGY - GENERAL OR DERABLES Final Result [facility] [address] [place] [address], * CK (Creatine Kinase) (08/16/2025 6:55 PM EDT) Creatine Kinase Total (CK) 107 30 - 194 U/L 08/16/2025 7:27 PM EDT [facility] Blood PERIPHERAL BLOOD SPECIMEN / Unknown Venipuncture / Unknown 08/16/2025 6:55 PM EDT 08/16/2025 6:58 PM EDT Moris Carrasco MD LAB BLOOD ORDERABLES Fatmata l Result Performing Organization Address [facility]/ZIP Co de Phone Number [facility] [address] [place] [address], [place] * Ammonia (08/16/2025 6:55 PM EDT) Ammonia umol/L 10 10 - 42 umol/L 08/16/2025 7:27 PM EDT [facility] Blood PERIPHERAL BLOOD SPECIMEN / Unknown Venipuncture / Unknown 08/16/2025 6:55 PM EDT 08/16/2025 6:58 PM EDT Moris Carrasco MD LAB BLOOD ORDERABLES Fatmata l Result Performing Organization Address City/[facility]/ZIP Co de Phone Number [address] [address], [place] * CT Angiogram Head Neck : Arteriogram (08/16/2025 3:56 PM EDT) Anatomical Region Laterality Modality Computed Tomogra phy 08/16/2025 4:11 PM EDT Impressions 08/16/2025 4:18 PM EDT 1. No acute intracranial abnormality. If there remains clinical concern for recent infarct, consider MRI. 2. No acute large vessel occlusion, critical stenosis, or dissection. Signed By: Ilya Jane on 08/16/2025 4:18 PM on [id number] Narrative 08/16/2025 4:[address] HEAD, [...] slightly hypoplastic. The basilar artery and bilateral educational technology specialist are unremarkable. No intracranial aneurysm is detected. [...] slightly hypoplastic. The basilar artery and bilateral educational technology specialist are unremarkable. No intracranial aneurysm is detected. Venous enhancement is within normal limits for this technique. IMPRESSION: 1.No acute intracranial abnormality. If there remains clinical concern for recent infarct, consider MRI. 2.No acute large vessel occlusion, critical stenosis, or dissection. Signed By: Ilya Jane on 08/16/2025 4:18 PM on [id number] Syed Fox MD IM CT ORDERABLES Final Result * Sedimentation Rate, Automated (08/16/2025 1:35 PM EDT) Erythrocyte Sedimentation Rate (ESR) 16 1 - 17 mm/hr 08/16/2025 7:16 PM EDT [facility] Blood PERIPHERAL BLOOD SPECIMEN / Unknown Venipuncture / Unknown 08/16/2025 1:35 PM EDT 08/16/2025 1:38 PM EDT us Moris Carrasco MD LAB BLOOD ORDERABLES Fatmata l Result Performing Organization Address [facility] Co de Phone Number [facility] [address] [place] [address], [place] * Type and Screen (08/16/2025 1:32 PM EDT) ABO and Rh A NEG 08/16/2025 2:47 PM EDT [facility] Antibody Screen NEG 2:47 PM EDT [facility] TS Expiration Date 08/19/2025 23:59 08/16/2025 2:47 PM EDT [facility] Blood Venipuncture / Unknown 08/16/2025 1:32 PM EDT 08/16/2025 1:40 PM EDT us Syed Fox MD BLOOD BANK TEST ORDERABLES Fin al Result Performing Organization Address [facility] de Phone Number [facility] [address] [place] [address], [place] * hs-Troponin T, 3hr (07/23/2025 6:18 PM EDT) Troponin T HS 16 <=19 ng/L 07/23/2025 7:00 PM EDT [facility] Blood PERIPHERAL BLOOD SPECIMEN / Unknown Venipuncture / Unknown 07/23/2025 6:18 PM EDT 07/23/2025 6:28 PM EDT us Pita Moore DO LAB BLOOD ORDERABLES Final Resu lt Performing Organization Address [facility]/ZIP Co de Phone Number [facility] [address] [place] [address], [place] * Hs-Troponin (with reflex 0, 1, +/-3 hours) (07/23/2025 3:27 PM EDT) Troponin T HS 17 <=19 ng/L 07/23/2025 5:39 PM EDT [facility] Blood PERIPHERAL BLOOD SPECIMEN / Unknown Venipuncture / Unknown 07/23/2025 3:27 PM EDT 07/23/2025 3:30 PM EDT us Pita Moore DO LAB BLOOD ORDERABLES Final Resu lt [facility] [address] [place] [address], [place] * Colonoscopy (07/21/2025 2:21 PM EDT) Anatomical [...] of bowel preparation was evaluated using the Carman Bowel Preparation Scale with scores of: right [...] EXAM Verito Villareal MD 07/21/2025 1419 Scopes [id number] Trice Shaikh NP GI PROCEDURE ORDERABLES Final Result * Surgical Pathology Tissue Exam (07/21/2025 2:10 PM EDT) Case Report Surgical Pathology Report Case: [id number] Authorizing Provider: Verito Villareal MD Collected: 07/21/2025 02:10 PM Ordering Location: [facility] Received: 07/21/2025 03:13 PM Endoscopy Pathologist: Alton Weiner MD Specimens: A) - Large Intestine, Right/Ascendi ng Colon, polyp B) - Large Intestine, Left/Descendi ng Colon, polyp 07/22/2025 3:08 PM EDT [facility] Final Diagnosis A. Specimen designated ascending colon polyp : TUBULAR ADENOMA, fragments of. Diagnostic features of high-grade dysplasia are not present. The specimen includes non-adenomato us colonic mucosa. B. Specimen designated descending colon polyp : TUBULAR ADENOMA. Diagnostic features of high-grade dysplasia are not present. The specimen includes non-adenomato us colonic mucosa. 07/22/2025 3:08 PM EDT [facility] at 1508 EDT Clinical Information Diagnosis: R93.3-Abnorma l CT scan, colon K62.89-Procti tis 07/22/2025 3:08 PM EDT [facility] Gross Description A. Large Intestine, Right/Ascendi [...] in cassette B1. 07/22/2025 3:08 PM EDT [facility] Tissue ASCENDING COLON STRUCTURE / Unknown 07/21/2025 2:10 PM EDT 07/21/2025 3:13 PM EDT Tissue specimen (specimen) DESCENDING COLON STRUCTURE / Unknown 07/21/2025 2:19 PM EDT 07/21/2025 3:13 PM EDT us Verito Villareal MD PATHOLOGY/CYTOLOGY ORDERABLE S Final Result [facility] [address] [place] [address], [place] * CT Abdomen Pelvis With Contrast (07/06/2025 11:44 PM EDT) Anatomical Region Laterality Modality Abdomen, Pelvis Computed [...] BEEN ELECTRONICALLY SIGNED BY [facility] RADIOLOGIST MD Glenny MATHUR 07/07/2025 12:28 AM EDT PROCEDURE INFORMATION: Exam: [...] tissues: Small fat-containing umbilical hernia. 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 Expl anation Health Care Proxy 09/23/2024 10:18 AM Roxanna lozano Health Care Proxy 07/02/2021 7:01 AM Health Care Proxy * Full Code (Latest Code Status on File) Date Activated Date Inactivated Comments 09/22/2025 3:58 PM 10/05/2025 9:25 PM Question Answer Comments Discussed with/per: Patient [...] Agents on File Name Relationship Healthcare Agent Relationshi p Communication Roxanna Zaragoza [facility] Health Care Agent Madhavi Zaragoza Health Care Agent - Alternat e Care Teams Manager Integration Relationship Specialty Start Date End Date Ilya Gusman MD [address] [place] [address] PCP - General 02/12/24
--- OUTSIDE RECORDS SUMMARY | 2025-10-06 22:27 | XMS_ITS | Encounter Summary ---
Author Organization [facility] ystem Address [address] [place] [address] Phone Care Team Providers Care Carton Filler Name Role Phone Ilya Gusman MD Primary Care Provider [phone] Encounter Details Date Type Department Care Team (Late Contact Info) Description 03/06/2024 Scanned Document [facility] - Health Information Department [address] [place] [phone] Scan, No Provider Available [address] [place] [address] [place] [address] <No scans attached> Social History Tobacco Use [...] [facility] Contact Info) Description 10/10/2025 10:30 AM EST Office Visit [facility] - Internal Medicine [address] [place] [phone] Ilya Gusman MD [address] [place] [phone] Christophe Dailey MD [address] [place] [phone] 01/18/2026 1:00 PM EST Office Visit [facility] [address] [place] [phone] Porsha Marsh, EMERGENCY SERVICES DISPATCHER [address] [place] [phone] 02/22/2026 11:00 AM EDT Office Visit [facility] [address] [place] [address] [address] [place] [phone] Alonso Bae MD [address] [place] [address] [address] [place] [address] 07/17/2026 2:00 PM EDT Office Visit [facility] - Internal Medicine [address] [place] [phone] Ilya Gusman MD [address] [place] [phone] 07/19/2026 11:40 AM EDT Office Visit [facility] [address] [place] [phone] Yesi Perez MD [address] [place] [address] documented as of this encounter Visit Diagnoses Not on filedocumented in this encounter Additional Health Concerns Infection Onset Date Last Indicated Resolved Time C difficile Rule-Out 11/01/2024 11/02/2024 024 9:43 AM EST Assessment Noted Time PHQ-9 Depression Total Score: 9 06/05/20 20 9:52 AM EDT documented as of this encounter Care Teams Carton Filler Relationship Specialty Start Date End Date Ilya Gusman MD [address] [place] [phone] PCP - General 05/14/17 [facility] 09/01/25 documented as of this encounter
--- OUTSIDE RECORDS SUMMARY | 2025-10-06 22:27 | XMS_ITS | Encounter Summary ---
Author Organization [facility] ystem Address [address] [place] [address] Phone Care Team Providers Care Wirer Street Light Name Role Phone Ilya Gusman MD Primary Care Provider [phone] Encounter Details Date Type Department Care Team (Late Contact Info) Description 01/22/2024 Scanned Document [facility] - Health Information Department [address] [place] [phone] Scan, No Provider Available [address] [place] [address] [place] [address] <No scans attached> Social History Tobacco Use [...] Upcoming Encounters Date Type Department Care Team ([facility] Contact Info) Description 10/10/2025 10:30 AM EST Office Visit [facility] - Internal Medicine [address] [place] [phone] Ilya Gusman MD [address] [place] [phone] Christophe Dailey MD [address] [place] [phone] 01/18/2026 1:00 PM EST Office Visit [facility] [address] [place] [phone] Porsha Marsh, BONE DRIER OPERATOR [address] [place] [phone] 02/22/2026 11:00 AM EDT Office Visit [facility] [address] [place] [address] [address] [place] [phone] Alonso Bae MD [address] [place] [address] [address] [place] [address] 07/17/2026 2:00 PM EDT Office Visit [facility] - Internal Medicine [address] [place] [phone] Ilya Gusman MD [address] [place] [phone] 07/19/2026 11:40 AM EDT Office Visit [facility] [address] [place] [address] Yesi Perez MD [address] [place] [phone] documented as of this encounter Visit Diagnoses Not on filedocumented in this encounter Additional Health Concerns Infection Onset Date Last Indicated Resolved Time C difficile Rule-Out 11/01/2024 11/02/2024 024 9:43 AM EST Assessment Noted Time PHQ-9 Depression Total Score: 9 06/05/20 20 9:52 AM EDT documented as of this encounter Care Teams Wirer Street Light Relationship Specialty Start Date End Date Ilya Gusman MD [address] [place] [phone] PCP - General 05/14/17 [facility] 09/01/25 documented as of this encounter
--- OUTSIDE RECORDS SUMMARY | 2025-10-06 22:27 | XMS_ITS | Encounter Summary ---
Author Organization [facility] ystem Address [address] [place] [address] Phone Care Team Providers Care Supervising Broker Name Role Phone Ilya Gusman MD Primary Care Provider [phone] Encounter Details Date Type Department Care Team (Late Contact Info) Description 03/10/2024 Scanned Document [facility] - Health Information Department [address] [place] [phone] Scan, No Provider Available [address] [place] [address] [place] [address] <No scans attached> Social History Tobacco Use [...] Upcoming Encounters Date Type Department Care Team ([facility] Contact Info) Description 10/10/2025 10:30 AM EST Office Visit [facility] - Internal Medicine [address] [place] [phone] Ilya Gusman MD [address] [place] [phone] Christophe Dailey MD [address] [place] [address] [phone] 01/18/2026 1:00 PM EST Office Visit [facility] [address] [place] [address] Porsha Marsh, SHOEMAKING CUTTER [address] [place] [address] 02/22/2026 11:00 AM EDT Office Visit [facility] [address] [place] [address] [address] [place] [phone] Alonso Bae MD [address] [place] [address] [address] [place] [address] 07/17/2026 2:00 PM EDT Office Visit [facility] - Internal Medicine [address] [place] [phone] Ilya Gusman MD [address] [place] [phone] 07/19/2026 11:40 AM EDT Office Visit [facility] [address] [place] [address] Yesi Perez MD [address] [place] [address] documented as of this encounter Visit Diagnoses Not on filedocumented in this encounter Additional Health Concerns Infection Onset Date Last Indicated Resolved Time C difficile Rule-Out 11/01/2024 11/02/2024 024 9:43 AM EST Assessment Noted Time PHQ-9 Depression Total Score: 9 06/05/20 20 9:52 AM EDT documented as of this encounter Care Teams Supervising Broker Relationship Specialty Start Date End Date Ilya Gusman MD [address] [place] [phone] PCP - General 05/14/17 [facility] 09/01/25 documented as of this encounter
--- OUTSIDE RECORDS SUMMARY | 2025-10-06 22:27 | XMS_ITS | Encounter Summary ---
Author Organization [facility] ystem Address [address] [place] [address] Phone Care Team Providers Care Tennis Instructor Name Role Phone Ilya Gusman MD Primary Care Provider [phone] Encounter Details Date Type Department Care Team ([facility] Contact Info) Description 05/18/2024 Orders Only [facility] - Health Information Department [address] [place] [phone] Scan, No Provider Available [address] [place] [address] Dr. Eleazar [place] [phone] Social History Tobacco Use Types Packs/Day Years [...] [facility] - Internal Medicine [address] [place] [phone] Ilya Gusman MD [address] [place] [phone] Christophe Dailey MD [address] [place] [phone] 01/18/2026 1:00 PM EST Office Visit [facility] [address] [place] [address] Porsha Marsh, COMPRESSOR MECHANIC BUS [address] [place] [address] 02/22/2026 11:00 AM EDT Office Visit [facility] [address] [place] [address] [address] [place] [phone] Alonso Bae MD [address] [place] [address] [address] [place] [address] 07/17/2026 2:00 PM EDT Office Visit [facility] - Internal Medicine [address] [place] [address] [phone] Ilya Gusman MD [address] [place] [phone] 07/19/2026 11:40 AM EDT Office Visit [facility] [address] [place] [address] Yesi Perez MD [address] [place] [address] documented as of this encounter Procedures Procedure [...] documented as of this encounter Care Teams Tennis Instructor Relationship Specialty Start Date End Date Ilya Gusman MD [address] [place] [phone] PCP - General 05/14/17 [facility] 09/01/25 documented as of this encounter
--- OUTSIDE RECORDS SUMMARY | 2025-10-06 22:27 | XMS_ITS | Encounter Summary ---
Author Organization [facility] ystem Address [address] [place] [address] Phone Care Team Providers Care Needle Loom Operator Name Role Phone Ilya Gusman MD Primary Care Provider [phone] Encounter Details Date Type Department Care Team ([facility] Contact Info) Description 03/09/2024 Orders Only [facility] - Health Information Department [address] [place] [address] Scan, No Provider Available [address] [place] [address] Dr. Eleazar [place] [phone] Social History Tobacco Use Types Packs/Day Years [...] Upcoming Encounters Date Type Department Care Team ([facility] Contact Info) Description 10/10/2025 10:30 AM EST Office Visit [facility] - Internal Medicine [address] [place] [address] [phone] Ilya Gusman MD [address] [place] [phone] Christophe Dailey MD [address] [place] [phone] 01/18/2026 1:00 PM EST Office Visit [facility] [address] [place] [address] Porsha Marsh, NET MAKER [address] [place] [address] 02/22/2026 11:00 AM EDT Office Visit [facility] [address] [place] [address] [address] [place] [phone] Alonso Bae MD [address] [place] [address] [address] [place] [address] 07/17/2026 2:00 PM EDT Office Visit [facility] - Internal Medicine [address] [place] [address] [phone] Ilya Gusman MD [address] [place] [phone] 07/19/2026 11:40 AM EDT Office Visit [facility] [address] [place] [address] Yesi Perez MD [address] [place] [address] documented as of this encounter Procedures Procedure [...] documented as of this encounter Care Teams Needle Loom Operator Relationship Specialty Start Date End Date Ilya Gusman MD [address] [place] [phone] PCP - General 05/14/17 [facility] 09/01/25 documented as of this encounter
--- OUTSIDE RECORDS SUMMARY | 2025-10-06 22:27 | XMS_ITS | Encounter Summary ---
Author Organization [facility] Address [address] [place] [address] Phone Care Team Providers Care Regrinder Name Role Phone Ilya Gusman MD Primary Care Provider [phone] Reason for Referral * Consultation (1 Month) - Closed Specialty Diagnoses / Procedures Referred By Contac t Referred To Contact Cardiology Diagnoses Chronic atrial fibrillation (CMS/HCC) Cardiomyopathy, unspecified type (CMS/HCC) Primary hypertension Ilya Gusman MD [address] [place] [phone] Phone: tel: fax: Yesi Perez MD [address] [place] [address] Phone: tel: fax: Referral ID Status Reason Start Date Expiration Date V isits Requested Visits Authorized [id number] Closed Specialty Services Required 01/13/2018 01/13/2019 3 3 Encounter Details Date Type Department Care Team ([facility] Contact Info) Description 01/15/2018 Orders Only [address] [phone] Ilya Gusman MD [address] [place] [phone] Chronic atrial fibrillation (CMS/HCC) (Primary Dx); Cardiomyopathy, [...] Visit [facility] - Internal Medicine [address] [place] [phone] Ilya Gusman MD [address] [place] [phone] Christophe Dailey MD [address] [place] [phone] 01/18/2026 1:00 PM EST Office Visit [facility] [address] [address] Porsha Marsh, GRAVEL HAULER [address] [place] [address] 02/22/2026 11:00 AM EDT Office Visit [facility] [address] [place] [phone] Alonso Bae MD [address] [place] [address] [address] [place] [address] 07/17/2026 2:00 PM EDT Office Visit [facility] - Internal Medicine [address] [place] [phone] Ilya Gusman MD [address] [place] [phone] 07/19/2026 11:40 AM EDT Office Visit [facility] [address] [address] Yesi Perez MD [address] [place] [address] Scheduled Referrals Name Type Priority Associated Diagnoses Orde r Schedule Referral Cardiology-Outgoing -[facility] Outpatient Referral Routine Chronic atrial fibrillation [...] documented as of this encounter Care Teams Regrinder Relationship Specialty Start Date End Date Ilya Gusman MD [address] [place] [phone] PCP - General 05/14/17 [facility] 09/01/25 documented as of this encounter
--- OUTSIDE RECORDS SUMMARY | 2025-10-06 22:27 | XMS_ITS | Encounter Summary ---
Author Organization [facility] ystem Address [address] [place] [address] Phone Care Team Providers Care Die Equipment Operator Name Role Phone Ilya Gusman MD Primary Care Provider [phone] Encounter Details Date Type Department Care Team (Late Contact Info) Description 03/22/2024 Procedure Pass [facility] Endoscopy [address] [place] [address] Social History Tobacco Use Types [...] Upcoming Encounters Date Type Department Care Team ([facility] Contact Info) Description 10/10/2025 10:30 AM EST Office Visit [facility] - Internal Medicine [address] [place] [phone] Ilya Gusman MD [address] [place] [phone] Christophe Dailey MD [address] [place] [phone] 01/18/2026 1:00 PM EST Office Visit [facility] [address] [place] [address] Porsha Marsh, BARRATTE OPERATOR [address] [place] [address] 02/22/2026 11:00 AM EDT Office Visit [facility] [address] [place] [address] [address] [place] [phone] Alonso Bae MD [address] [place] [address] 2 [place] [address] 07/17/2026 2:00 PM EDT Office Visit [facility] - Internal Medicine [address] [place] [phone] Ilya Gusman MD [address] [place] [phone] 07/19/2026 11:40 AM EDT Office Visit [facility] [address] [place] [address] Yesi Perez MD [address] [place] [address] documented as of this encounter Visit Diagnoses Not on filedocumented in this encounter Additional Health Concerns Infection Onset Date Last Indicated Resolved Time C difficile Rule-Out 11/01/2024 11/02/2024 024 9:43 AM EST Assessment Noted Time PHQ-9 Depression Total Score: 9 06/05/20 20 9:52 AM EDT documented as of this encounter Care Teams Die Equipment Operator Relationship Specialty Start Date End Date Ilya Gusman MD [address] [place] [phone] PCP - General 05/14/17 [facility] 09/01/25 documented as of this encounter
--- OUTSIDE RECORDS SUMMARY | 2025-10-06 22:27 | XMS_ITS | Encounter Summary ---
Author Organization [facility] ystem Address [address] [place] [address] Phone Care Team Providers Care Canal Superintendent Name Role Phone Ilya Gusman MD Primary Care Provider [phone] Encounter Details Date Type Department Care Team ([facility] Contact Info) Description 05/12/2024 Orders Only [facility] - Health Information Department [address] [place] [address] Scan, No Provider Available [address] [place] [address] Dr. Eleazar [place] [phone] Social History Tobacco Use Types Packs/Day Years [...] [facility] Contact Info) Description 10/10/2025 10:30 AM EST Office Visit [facility] - Internal Medicine [address] [place] [phone] Ilya Gusman MD [address] [place] [phone] Christophe Dailey MD [address] [place] [phone] 01/18/2026 1:00 PM EST Office Visit [facility] [address] [place] [address] Porsha Marsh, TACTICAL DEBRIEFER OFFICER [address] [place] [address] 02/22/2026 11:00 AM EDT Office Visit [facility] [address] [place] [address] [address] [place] [phone] Alonso Bae MD [address] [place] [address] [address] [place] [address] 07/17/2026 2:00 PM EDT Office Visit [facility] - Internal Medicine [address] [place] [phone] Ilya Gusman MD [address] [place] [phone] 07/19/2026 11:40 AM EDT Office Visit [facility] [address] [place] [address] Yesi Perez MD [address] [place] [address] 208[address] documented as of this encounter Procedures Procedure [...] documented as of this encounter Care Teams Canal Superintendent Relationship Specialty Start Date End Date Ilya Gusman MD [address] [place] [phone] PCP - General 05/14/17 [facility] 09/01/25 documented as of this encounter
--- OUTSIDE RECORDS SUMMARY | 2025-10-06 22:27 | XMS_ITS | Encounter Summary ---
Author Organization [facility] Address [address] [place] [address] Phone Care Team Providers Care Access Manager Name Role Phone Ilya Gusman MD Primary Care Provider [phone] Encounter Details Date Type Department Care Team (Late Contact Info) Description 12/12/2017 Scanned Document [facility] - Health Information Department [address] [place] [address] Scan, No Provider Available [address] [place] [address] [place] [address] <No scans attached> Social History Tobacco Use [...] [facility] - Internal Medicine [address] [place] [phone] Ilya Gusman MD [address] [place] [phone] Christophe Dailey MD [address] [place] [phone] 01/18/2026 1:00 PM EST Office Visit [facility] [address] [place] [address] Porsha Marsh, BELT CUTTER [address] [place] [address] 02/22/2026 11:00 AM EDT Office Visit [facility] [address] [place] [address] [address] [place] [phone] Alonso Bae MD [address] [place] [address] 2 [place] [address] 07/17/2026 2:00 PM EDT Office Visit [facility] - Internal Medicine [address] [place] [phone] Ilya Gusman MD [address] [place] [phone] 07/19/2026 11:40 AM EDT Office Visit [facility] [address] [place] [address] Yesi Perez MD [address] [place] [address] documented as of this encounter Visit Diagnoses [...] documented as of this encounter Care Teams Access Manager Relationship Specialty Start Date End Date Ilya Gusman MD [address] [place] [address] [phone] PCP - General 05/14/17 [facility] 09/01/25 documented as of this encounter
--- OUTSIDE RECORDS SUMMARY | 2025-10-06 22:27 | XMS_ITS | Encounter Summary ---
Author Organization [facility] ystem Address [address] [place] [address] Phone Care Team Providers Care Materials Handler Name Role Phone Ilya Gusman MD Primary Care Provider [phone] Encounter Details Date Type Department Care Team ([facility] Contact Info) Description 02/06/2024 Orders Only [facility] - Health Information Department [address] [place] [address] Scan, No Provider Available [address] [place] [address] Dr. Eleazar [place] [phone] Social History Tobacco Use Types Packs/Day Years [...] ([facility] Contact Info) Description 10/10/2025 10:30 AM EST Office Visit [facility] - Internal Medicine [address] [place] [phone] Ilya Gusman MD [address] [place] [phone] Christophe Dailey MD [address] [place] [phone] 01/18/2026 1:00 PM EST Office Visit [facility] [address] [place] [address] Porsha Marsh, CLINICAL QUALITY ANALYST [address] [place] [address] 02/22/2026 11:00 AM EDT Office Visit [facility] [address] [place] [address] [address] [place] [phone] Alonso Bae MD [address] [place] [address] [address] [place] [address] 07/17/2026 2:00 PM EDT Office Visit [facility] - Internal Medicine [address] [place] [phone] Ilya Gusman MD [address] [place] [phone] 07/19/2026 11:40 AM EDT Office Visit [facility] [address] [place] [address] Yesi Perez MD [address] [place] [address] documented as of this encounter Procedures Procedure [...] documented as of this encounter Care Teams Materials Handler Relationship Specialty Start Date End Date Ilya Gusamn MD [address] [place] [phone] PCP - General 05/14/17 [facility] 09/01/25 documented as of this encounter
--- OUTSIDE RECORDS SUMMARY | 2025-10-06 22:27 | XMS_ITS | Encounter Summary ---
Author Organization [facility] Address [address] [place] [address] Phone Care Team Providers Care Construction Plumber Name Role Phone Ilya Gusman MD Primary Care Provider [phone] Reason for Visit * Reason Comments Med Refill Encounter Details Date Type Department Care Team (Late Contact Info) Description 11/11/2017 Refill [facility] - Internal Medicine [address] [place] [address] [phone] Ilya Gusman MD [address] [place] [phone] Med Refill Social History Tobacco Use [...] Description 10/10/2025 10:30 AM EST Office Visit [facility] - Internal Medicine [address] [place] [phone] Ilya Gusman MD [address] [place] [phone] Christophe Dailey MD [address] [place] [phone] 01/18/2026 1:00 PM EST Office Visit [facility] 70 [facility] 1 [place] [address] Porsha Marsh CNP 70 [place] [address] 02/22/2026 11:00 AM EDT Office Visit [facility] [address] [place] [address] [address] [place] [phone] Alonso Bae MD [address] [place] [address] [address] [place] [address] 07/17/2026 2:00 PM EDT Office Visit [facility] - Internal Medicine [address] [place] [address] [phone] Ilya Gusman MD [address] [place] [phone] 07/19/2026 11:40 AM EDT Office Visit [facility] [address] [address] Yesi Perez MD 70 [place] [address] documented as of this encounter Visit Diagnoses [...] as of this encounter Care Teams Construction Plumber Relationship Specialty Start Date End Date Ilya Gusman MD [address] [place] [phone] PCP - General 05/14/17 [facility] 09/01/25 documented as of this encounter
--- OUTSIDE RECORDS SUMMARY | 2025-10-06 22:27 | XMS_ITS | Encounter Summary ---
Author Organization [facility] ystem Address [address] [place] [address] Phone Care Team Providers Care K 12 School Professional Name Role Phone Ilya Gusman MD Primary Care Provider [phone] Encounter Details Date Type Department Care Team (Late Contact Info) Description 03/23/2024 Scanned Document [facility] - Health Information Department [address] [place] [address] Scan, No Provider Available [address] [place] [address] [place] [address] <No scans attached> Social History Tobacco Use [...] Upcoming Encounters Date Type Department Care Team ([facility] Contact Info) Description 10/10/2025 10:30 AM EST Office Visit [facility] - Internal Medicine [address] [place] [phone] Ilya Gusman MD [address] [place] [phone] Christophe Dailey MD [address] [place] [address] [phone] 01/18/2026 1:00 PM EST Office Visit [facility] [address] [place] [address] Porsha Marsh, SENIOR CLINICAL CONSULTANT [address] [place] [address] 02/22/2026 11:00 AM EDT Office Visit [facility] [address] [place] [address] [address] [place] [phone] Alonso Bae MD [address] [place] [address] [address] [place] [address] 07/17/2026 2:00 PM EDT Office Visit [facility] - Internal Medicine [address] [place] [phone] Ilya Gusman MD [address] [place] [phone] 07/19/2026 11:40 AM EDT Office Visit [facility] [address] [place] [address] Yesi Perez MD [address] [place] [address] documented as of this encounter Visit Diagnoses Not on filedocumented in this encounter Additional Health Concerns Infection Onset Date Last Indicated Resolved Time C difficile Rule-Out 11/01/2024 11/02/2024 024 9:43 AM EST Assessment Noted Time PHQ-9 Depression Total Score: 9 06/05/20 20 9:52 AM EDT documented as of this encounter Care Teams K 12 School Professional Relationship Specialty Start Date End Date Ilya Gusman MD [address] [place] [address] [phone] PCP - General 05/14/17 [facility] 09/01/25 documented as of this encounter
--- OUTSIDE RECORDS SUMMARY | 2025-10-06 22:27 | XMS_ITS | Encounter Summary ---
Author Organization [facility] ystem Address [address] [place] [address] Phone Care Team Providers Care Lead Project Engineer Name Role Phone Ilya Gusman MD Primary Care Provider [phone] Encounter Details Date Type Department Care Team ([facility] Contact Info) Description 02/04/2024 Orders Only [facility] - Health Information Department [address] [place] [address] Scan, No Provider Available [address] [place] [address] Dr. Eleazar [place] [phone] Social History Tobacco Use Types Packs/Day Years [...] ([facility] Contact Info) Description 10/10/2025 10:30 AM EST Office Visit [facility] - Internal Medicine [address] [place] [phone] Ilya Gusman MD [address] [place] [phone] Christophe Dailey MD [address] [place] [phone] 01/18/2026 1:00 PM EST Office Visit [facility] [address] [place] [address] Porsha Marsh, REPAIRER PUMP 70 [place], [place] [phone] 02/22/2026 11:00 AM EDT Office Visit [facility] [address] [place] [address] [address] [place] [phone] Alonso Bae MD [address] [place] [address] [address] [place] [address] 07/17/2026 2:00 PM EDT Office Visit [facility] - Internal Medicine [address] [place] [phone] Ilya Gusman MD [address] [place] [phone] 07/19/2026 11:40 AM EDT Office Visit [facility] [address] [place] [address] Yesi Perez MD [address] [place] [address] documented as of this encounter Procedures Procedure Name Priority Date/Time Associated Diagnosis Comments COVID-19 (EXTERNAL) Routine 02/01/2024 MR INO LABS Routine 02/01/2024 MR INO LABS Routine 02/01/2024 XR CHEST 1 VW Routine 02/01/2024 CT ABDOMEN PELVIS W CONTRAST Routine 02/01/2024 ECG 12-LEAD Today 02/01/2024 documented in this encounter Results * COVID-19 (External) (02/01/2024) External COVID-19 Negative Not Detected, Negative, Non-reacti ve [facility]: [facility] Nasopharyngeal (Nasopharynx) us Historical Provider LAB MICROBIOLOGY - GENERA L ORDERABLES Final Result ACC: [address] [address], [place] [phone] * MR Ino briseno (02/01/2024) us No [...] as of this encounter Care Teams Lead Project Engineer Relationship Specialty Start Date End Date Ilya Gusman MD [address] [place] [phone] PCP - General 05/14/17 [facility] 09/01/25 documented as of this encounter
--- OUTSIDE RECORDS SUMMARY | 2025-10-06 22:27 | XMS_ITS | Encounter Summary ---
Author Organization [facility] ystem Address [address] [place] [address] Phone Care Team Providers Care Traffic Court Referee Name Role Phone Ilya Gusman MD Primary Care Provider [phone] Encounter Details Date Type Department Care Team (Late Contact Info) Description 05/08/[address] [facility] - Health Information Department [address] [place] [phone] Scan, No Provider Available [address] [place] [address] [place] [address] <No scans attached> Social History Tobacco Use [...] Type Department Care Team ([facility] Contact Info) Description 10/10/2025 10:30 AM EST Office Visit [facility] - Internal Medicine [address] [place] [phone] Ilya Gusman MD [address] [place] [phone] Christophe Dailey MD [address] [place] [address] [phone] 01/18/2026 1:00 PM EST Office Visit [facility] [address] [place] [address] Porsha Marsh, SUCCESS COACH [address] [place] [address] 02/22/2026 11:00 AM EDT Office Visit [facility] [address] [place] [address] [address] [place] [phone] Alonso Bae MD [address] [place] [address] [address] [place] [address] 07/17/2026 2:00 PM EDT Office Visit [facility] - Internal Medicine [address] [place] [phone] Ilya Gusman MD [address] [place] [phone] 07/19/2026 11:40 AM EDT Office Visit [facility] [address] [place] [address] Yesi Perez MD [address] [place] [address] documented as of this encounter Visit Diagnoses Not on filedocumented in this encounter Additional Health Concerns Infection Onset Date Last Indicated Resolved Time C difficile Rule-Out 11/01/2024 11/02/2024 024 9:43 AM EST Assessment Noted Time PHQ-9 Depression Total Score: 6 04/28/20 24 1:53 PM EDT documented as of this encounter Care Teams Traffic Court Referee Relationship Specialty Start Date End Date Ilya Gusman MD [address] [place] [address] [phone] PCP - General 05/14/17 [facility] 09/01/25 documented as of this encounter
--- OUTSIDE RECORDS SUMMARY | 2025-10-06 22:27 | XMS_ITS | Encounter Summary ---
Author Organization [facility] ystem Address [address] [place] [address] Phone Care Team Providers Care Buildings And Grounds Director Name Role Phone Ilya Gusman MD Primary Care Provider [phone] Encounter Details Date Type Department Care Team (Late Contact Info) Description 05/09/2024 Scanned Document [facility] - Health Information Department [address] [place] [phone] Scan, No Provider Available [address] [place] [address] [place] [address] <No scans attached> Social History Tobacco Use [...] Encounters Date Type Department Care Team ([facility] Contact Info) Description 10/10/2025 10:30 AM EST Office Visit [facility] - Internal Medicine [address] [place] [phone] Ilya Gusman MD [address] [place] [phone] Christophe Dailey MD [address] [place] [address] [phone] 01/18/2026 1:00 PM EST Office Visit [facility] [address] [place] [address] Porsha Marsh, DRINK BOX MECHANIC [address] [place] [address] 02/22/2026 11:00 AM EDT Office Visit [facility] [address] [place] [address] [address] [place] [phone] Alonso Bae MD [address] [place] [address] [address] [place] [address] 07/17/2026 2:00 PM EDT Office Visit [facility] - Internal Medicine [address] [place] [phone] Ilya Gusman MD [address] [place] [phone] 07/19/2026 11:40 AM EDT Office Visit [facility] [address] [place] [address] Yesi Perez MD [address] [place] [address] documented as of this encounter Visit Diagnoses Not on filedocumented in this encounter Additional Health Concerns Infection Onset Date Last Indicated Resolved Time C difficile Rule-Out 11/01/2024 11/02/2024 024 9:43 AM EST Assessment Noted Time PHQ-9 Depression Total Score: 6 04/28/20 24 1:53 PM EDT documented as of this encounter Care Teams Buildings And Grounds Director Relationship Specialty Start Date End Date Ilya Gusman MD [address] [place] [address] [phone] PCP - General 05/14/17 [facility] 09/01/25 documented as of this encounter
--- OUTSIDE RECORDS SUMMARY | 2025-10-06 22:27 | XMS_ITS | Encounter Summary ---
Author Organization [facility] ystem Address [address] [place] [address] Phone Care Team Providers Care Journalism Intern Name Role Phone Ilya Gusman MD Primary Care Provider [phone] Encounter Details Date Type Department Care Team (Late Contact Info) Description 04/23/2024 Scanned Document [facility] - Health Information Department [address] [place] [address] Scan, No Provider Available [address] [place] [address] [place] [address] <No scans attached> Social History Tobacco Use [...] Upcoming Encounters Date Type Department Care Team ([facility] Contact Info) Description 10/10/2025 10:30 AM EST Office Visit [facility] - Internal Medicine [address] [place] [phone] Ilya Gusman MD [address] [place] [phone] Christophe Dailey MD [address] [place] [address] [phone] 01/18/2026 1:00 PM EST Office Visit [facility] [address] [place] [address] Porsha Marsh, SLEEVE SETTER LOCKSTITCH [address] [place] [address] 02/22/2026 11:00 AM EDT Office Visit [facility] [address] [place] [address] [address] [place] [phone] Alonso Bae MD [address] [place] [address] [address] [place] [address] 07/17/2026 2:00 PM EDT Office Visit [facility] - Internal Medicine [address] [place] [phone] Ilya Gusman MD [address] [place] [phone] 07/19/2026 11:40 AM EDT Office Visit [facility] [address] [place] [address] Yesi Perez MD [address] [place] [address] documented as of this encounter Visit Diagnoses Not on filedocumented in this encounter Additional Health Concerns Infection Onset Date Last Indicated Resolved Time C difficile Rule-Out 11/01/2024 11/02/2024 024 9:43 AM EST Assessment Noted Time PHQ-9 Depression Total Score: 9 06/05/20 20 9:52 AM EDT documented as of this encounter Care Teams Journalism Intern Relationship Specialty Start Date End Date Ilya Gusman MD [address] [place] [address] [phone] PCP - General 05/14/17 [facility] 09/01/25 documented as of this encounter
--- OUTSIDE RECORDS SUMMARY | 2025-10-06 22:27 | XMS_ITS | Encounter Summary ---
Author Organization [facility] Address [address] [place] [address] Phone Care Team Providers Care Boat Dock Operator Name Role Phone Zehra Galarza MD Primary Care Provider [phone] Reason for Visit * Reason Onset Date Comments Med Refill 05/27/2024 Encounter Details Date Type Department Care Team (Late st Contact Info) Description 05/27/2024 Telephone [facility] - Internal Medicine [address] [place] [address] [phone] Zehra Galarza MD [address] [place] [phone] Med Refill Social History Tobacco Use [...] following medications: Other - lisinopril Preferred pharmacy: [facility] - [place], [place] - [address] [facility] Medication renewals requested in this message routed separately: HYDROmorphone (DILAUDID) 4 MG tablet [Ileana De Dios] documented in this encounter Plan of Treatment Upcoming Encounters Date Type Department Care Team (Late st Contact Info) Description 10/10/2025 10:30 AM EST Office Visit [facility] - Internal Medicine [address] [place] [phone] Zehra Galarza MD [address] [place] [phone] Christophe Dailey MD [address] [place] [phone] 01/18/2026 1:00 PM EST Office Visit [facility] [address] [place] [address] Porsha Marsh, MARILIA [address] [place] [address] 02/22/2026 11:00 AM EDT Office Visit [facility] [address] [place] [address] [address] [place] [phone] Alonso Bae MD [address] [place] [address] [address] [place] [address] 07/17/2026 2:00 PM EDT Office Visit [facility] - Internal Medicine [address] [place] [phone] Zehra Galarza MD [address] [place] [phone] 07/19/2026 11:40 AM EDT Office Visit [facility] [address] [place] [address] Yesi Perez MD [address] [place] [address] documented as of this encounter Visit Diagnoses Not on filedocumented in this encounter Additional Health Concerns Infection Onset Date Last Indicated Resolved Time C difficile Rule-Out 11/01/2024 11/02/2024 024 9:43 AM EST Assessment Noted Time PHQ-9 Depression Total Score: 6 04/28/20 24 1:53 PM EDT documented as of this encounter Care Teams Boat Dock Operator Relationship Specialty Start Date End Date Zehra Galarza MD [address] [place] [address] [phone] PCP - General 05/14/17 [facility] 09/01/25 documented as of this encounter
--- OUTSIDE RECORDS SUMMARY | 2025-10-06 22:27 | XMS_ITS | Encounter Summary ---
Author Organization [facility] ystem Address [address] [place] [address] Phone Care Team Providers Care Investment Trader Name Role Phone Ilya Gusman MD Primary Care Provider [phone] Encounter Details Date Type Department Care Team ([facility] Contact Info) Description 01/08/2024 Orders Only [facility] - Health Information Department [address] [place] [address] Scan, No Provider Available [address] [place] [address] Dr. Eleazar [place] [phone] Social History Tobacco Use Types Packs/Day Years [...] ([facility] Contact Info) Description 10/10/2025 10:30 AM EST Office Visit [facility] - Internal Medicine [address] [place] [phone] Ilya Gusman MD [address] [place] [phone] Christophe Dailey MD [address] [place] [phone] 01/18/2026 1:00 PM EST Office Visit [address] [address] Porsha Marsh, PARTY PLAN SALES CONSULTANT [address] [place] [address] 02/22/2026 11:00 AM EDT Office Visit [facility] [address] [place] [address] [address] [place] [phone] Alonso Bae MD [address] [place] [address] [address] [place] [address] 07/17/2026 2:00 PM EDT Office Visit [facility] - Internal Medicine [address] [place] [phone] Ilya Gusman MD [address] [place] [phone] 07/19/2026 11:40 AM EDT Office Visit [address] [address] Yesi Perez MD [address] [place] [address] documented as of this encounter Procedures Procedure [...] as of this encounter Care Teams Investment Trader Relationship Specialty Start Date End Date Ilya Gusman MD [address] [place] [phone] PCP - General 05/14/17 [facility] 09/01/25 documented as of this encounter
--- OUTSIDE RECORDS SUMMARY | 2025-10-06 22:27 | XMS_ITS | Encounter Summary ---
Author Organization [facility] ystem Address [address] [place] [address] Phone Care Team Providers Care Web Page Developer Name Role Phone Ilya Gusman MD Primary Care Provider [phone] Encounter Details Date Type Department Care Team ([facility] Contact Info) Description 05/14/2024 Orders Only [facility] - Health Information Department [address] [place] [address] Scan, No Provider Available [address] [place] [address] Dr. Eleazar [place] [phone] Social History Tobacco Use Types Packs/Day Years [...] Team ([facility] Contact Info) Description 10/10/2025 10:30 AM EST Office Visit [facility] - Internal Medicine [address] [place] [address] [phone] Ilya Gusman MD [address] [place] [phone] Christophe Dailey MD [address] [place] [phone] 01/18/2026 1:00 PM EST Office Visit [address] [address] Porsha Marsh, AIRPORT GUIDE [address] [place] [address] 02/22/2026 11:00 AM EDT Office Visit [facility] [address] [place] [address] [address] [place] [phone] Alonso Bae MD [address] [place] [address] [address] [place] [address] 07/17/2026 2:00 PM EDT Office Visit [facility] - Internal Medicine [address] [place] [address] [phone] Ilya Gusman MD [address] [place] [phone] 07/19/2026 11:40 AM EDT Office Visit [address] [address] Yesi Perez MD [address] [place] [address] documented as of this encounter Procedures Procedure [...] as of this encounter Care Teams Web Page Developer Relationship Specialty Start Date End Date Ilya Gusman MD [address] [place] [address] [phone] PCP - General 05/14/17 [facility] 09/01/25 documented as of this encounter
--- OUTSIDE RECORDS SUMMARY | 2025-10-06 22:27 | XMS_ITS | Encounter Summary ---
Author Organization [facility] ystem Address [address] [place] [address] Phone Care Team Providers Care Bundle Tier Name Role Phone Ilya Gusman MD Primary Care Provider [phone] Encounter Details Date Type Department Care Team (Late Contact Info) Description 01/09/2024 Scanned Document [facility] - Health Information Department [address] [place] [phone] Scan, No Provider Available [address] [place] [address] [place] [address] <No scans attached> Social History Tobacco Use [...] [facility] Contact Info) Description 10/10/2025 10:30 AM EST Office Visit [facility] - Internal Medicine [address] [place] [phone] Ilya Gusman MD [address] [place] [phone] Christophe Dailey MD [address] [place] [address] [phone] 01/18/2026 1:00 PM EST Office Visit [facility] [address] [place] [address] Porsha Marsh, COMMUNITY ASSOCIATE [address] [place] [address] 02/22/2026 11:00 AM EDT Office Visit [facility] [address] [place] [address] [address] [place] [phone] Alonso Bae MD [address] [place] [address] [address] [place] [address] 07/17/2026 2:00 PM EDT Office Visit [facility] - Internal Medicine [address] [place] [phone] Ilya Gusman MD [address] [place] [phone] 07/19/2026 11:40 AM EDT Office Visit [facility] [address] [place] [address] Yesi Perez MD [address] [place] [address] documented as of this encounter Visit Diagnoses Not on filedocumented in this encounter Additional Health Concerns Infection Onset Date Last Indicated Resolved Time C difficile Rule-Out 11/01/2024 11/02/2024 024 9:43 AM EST Assessment Noted Time PHQ-9 Depression Total Score: 9 06/05/20 20 9:52 AM EDT documented as of this encounter Care Teams Bundle Tier Relationship Specialty Start Date End Date Ilya Gusman MD [address] [place] [address] [phone] PCP - General 05/14/17 [facility] 09/01/25 documented as of this encounter
--- OUTSIDE RECORDS SUMMARY | 2025-10-06 22:27 | XMS_ITS | Encounter Summary ---
Author Organization [facility] ystem Address [address] [place] [address] Phone Care Team Providers Care Cable Operator Name Role Phone Ilya Gusman MD Primary Care Provider [phone] Encounter Details Date Type Department Care Team (Late Contact Info) Description 01/30/2024 Scanned Document [facility] - Health Information Department [address] [place] [address] Scan, No Provider Available [address] [place] [address] [place] [address] <No scans attached> Social History Tobacco Use [...] Date Type Department Care Team ([facility] Contact Info) Description 10/10/2025 10:30 AM EST Office Visit [facility] - Internal Medicine [address] [place] [phone] Ilya Gusman MD [address] [place] [phone] Christophe Dailey MD [address] [place] [phone] 01/18/2026 1:00 PM EST Office Visit [facility] [address] [place] [address] Porsha Marsh, DOMESTIC CLEANER [address] [place] [address] 02/22/2026 11:00 AM EDT Office Visit [facility] [address] [place] [address] [address] [place] [phone] Alonso Bae MD [address] [place] [address] [address] [place] [address] 07/17/2026 2:00 PM EDT Office Visit [facility] - Internal Medicine [address] [place] [phone] Ilya Gusman MD [address] [place] [phone] 07/19/2026 11:40 AM EDT Office Visit [facility] [address] [place] [address] Yesi Perez MD [address] [place] [address] documented as of this encounter Visit Diagnoses Not on filedocumented in this encounter Additional Health Concerns Infection Onset Date Last Indicated Resolved Time C difficile Rule-Out 11/01/2024 11/02/2024 024 9:43 AM EST Assessment Noted Time PHQ-9 Depression Total Score: 9 06/05/20 20 9:52 AM EDT documented as of this encounter Care Teams Cable Operator Relationship Specialty Start Date End Date Ilya Gusman MD [address] [place] [address] [phone] PCP - General 05/14/17 [facility] 09/01/25 documented as of this encounter
--- OUTSIDE RECORDS SUMMARY | 2025-10-06 22:27 | XMS_ITS | Encounter Summary ---
Author Organization [facility] ystem Address [address] [place] [address] Phone Care Team Providers Care President Of The [place] Name Role Phone Ilya Gusman MD Primary Care Provider [phone] Encounter Details Date Type Department Care Team ([facility] Contact Info) Description 01/22/2024 Orders Only [facility] - Health Information Department [address] [place] [address] Scan, No Provider Available [address] [place] [address] Dr. Eleazar [place] [phone] Social History Tobacco Use Types Packs/Day Years [...] 10/10/2025 10:30 AM EST Office Visit [facility] - Internal Medicine [address] [place] [phone] Ilya Gusman MD [address] [place] [phone] Christophe Dailey MD [address] [place] [phone] 01/18/2026 1:00 PM EST Office Visit [facility] [address] [place] [address] Porsha Marsh, SCHOOL PHOTOGRAPH EDITOR [address] [place] [address] 02/22/2026 11:00 AM EDT Office Visit [facility] [address] [place] [address] [address] [place] [phone] Alonso Bae MD [address] [place] [address] [address] [place] [address] 07/17/2026 2:00 PM EDT Office Visit [facility] - Internal Medicine [address] [place] [phone] Ilya Gusman MD [address] [place] [phone] 07/19/2026 11:40 AM EDT Office Visit [facility] [address] [place] [address] Ysei Perez MD [address] [place] [address] documented as of this encounter Procedures [...] documented as of this encounter Care Teams President Of The [place] Relationship Specialty Start Date End Date Ilya Gusman MD [address] [place] [phone] PCP - General 05/14/17 [facility] 09/01/25 documented as of this encounter
--- OUTSIDE RECORDS SUMMARY | 2025-10-06 22:27 | XMS_ITS | Encounter Summary ---
Author Organization [facility] ystem Address [address] [place] [address] Phone Care Team Providers Care Process Pumper Name Role Phone Ilya Gusman MD Primary Care Provider [phone] Encounter Details Date Type Department Care Team ([facility] Contact Info) Description 03/24/2024 Orders Only [facility] - Health Information Department [address] [place] [address] Scan, No Provider Available [address] [place] [address] Dr. Eleazar [place] [phone] Social History Tobacco Use Types Packs/Day Years [...] Encounters Date Type Department Care Team ([facility] Contact Info) Description 10/10/2025 10:30 AM EST Office Visit [facility] - Internal Medicine [address] [place] [phone] Ilya Gusman MD [address] [place] [phone] Christophe Dailey MD [address] [place] [phone] 01/18/2026 1:00 PM EST Office Visit [facility] [address] [place] [address] Porsha Marsh, PROFESSOR OF BIBLICAL STUDIES [address] [place] [address] 02/22/2026 11:00 AM EDT Office Visit [facility] [address] [place] [address] [address] [place] [phone] Alonso Bae MD [address] [place] [address] [address] [place] [address] 07/17/2026 2:00 PM EDT Office Visit [facility] - Internal Medicine [address] [place] [phone] Ilya Gusman MD [address] [place] [phone] 07/19/2026 11:40 AM EDT Office Visit [address] [address] Yesi Perez MD [address] [place] [address] documented as of this encounter Procedures Procedure [...] as of this encounter Care Teams Process Pumper Relationship Specialty Start Date End Date Ilya Gusman MD [address] [place] [phone] PCP - General 05/14/17 [facility] 09/01/25 documented as of this encounter
--- OUTSIDE RECORDS SUMMARY | 2025-10-06 22:27 | XMS_ITS | Encounter Summary ---
Author Organization [facility] ystem Address [address] [place] [address] Phone Care Team Providers Care Mill Tender Washing Name Role Phone Ilya Gusman MD Primary Care Provider [phone] Encounter Details Date Type Department Care Team (Late Contact Info) Description 05/13/2024 Scanned Document [facility] - Health Information Department [address] [place] [address] [phone] Scan, No Provider Available [address] [place] [address] [place] [address] <No scans attached> Social History Tobacco Use [...] Upcoming Encounters Date Type Department Care Team ([facility] Contact Info) Description 10/10/2025 10:30 AM EST Office Visit [facility] - Internal Medicine [address] [place] [phone] Ilya Gusman MD [address] [place] [phone] Christophe Dailey MD [address] [place] [address] [phone] 01/18/2026 1:00 PM EST Office Visit [facility] [address] [place] [address] Porsha Marsh, COSMETOLOGY EDUCATOR [address] [place] [address] 328[address] 02/22/2026 11:00 AM EDT Office Visit [facility] [address] [place] [address] [address] [place] [phone] Alonso Bae MD [address] [place] [address] [address] [place] [address] 07/17/2026 2:00 PM EDT Office Visit [facility] - Internal Medicine [address] [place] [phone] Ilya Gusman MD [address] [place] [phone] 07/19/2026 11:40 AM EDT Office Visit [facility] [address] [place] [address] Yesi Perez MD [address] [place] [address] 40167 documented as of this encounter Visit Diagnoses Not on filedocumented in this encounter Additional Health Concerns Infection Onset Date Last Indicated Resolved Time C difficile Rule-Out 11/01/2024 11/02/2024 024 9:43 AM EST Assessment Noted Time PHQ-9 Depression Total Score: 6 04/28/20 24 1:53 PM EDT documented as of this encounter Care Teams Mill Tender Washing Relationship Specialty Start Date End Date Ilya Gusman MD [address] [place] [address] [phone] PCP - General 05/14/17 [facility] 09/01/25 documented as of this encounter
--- OUTSIDE RECORDS SUMMARY | 2025-10-06 22:27 | XMS_ITS | Encounter Summary ---
Author Organization [facility] ystem Address [address] [place] [address] Phone Care Team Providers Care Station Repairer Name Role Phone Ilya Gusman MD Primary Care Provider [phone] Encounter Details Date Type Department Care Team (Late Contact Info) Description 03/23/2024 Scanned Document [facility] - Health Information Department [address] [place] [address] [phone] Scan, No Provider Available [address] [place] [address] [place] [address] <No scans attached> Social History Tobacco Use [...] Upcoming Encounters Date Type Department Care Team ([facility] Contact Info) Description 10/10/2025 10:30 AM EST Office Visit [facility] - Internal Medicine [address] [place] [phone] Ilya Gusman MD [address] [place] [phone] Christophe Dailey MD [address] [place] [address] [phone] 01/18/2026 1:00 PM EST Office Visit [facility] [address] [place] [address] Porsha Marsh, NEWSPAPER COLUMNIST [address] [place] [address] 02/22/2026 11:00 AM EDT Office Visit [facility] [address] [place] [address] [address] [place] [phone] Alonso Bae MD [address] [place] [address] [address] [place] [address] 07/17/2026 2:00 PM EDT Office Visit [facility] - Internal Medicine [address] [place] [phone] Ilya Gusman MD [address] [place] [phone] 07/19/2026 11:40 AM EDT Office Visit [facility] [address] [place] [address] Yesi Perez MD [address] [place] [address]684 documented as of this encounter Visit Diagnoses Not on filedocumented in this encounter Additional Health Concerns Infection Onset Date Last Indicated Resolved Time C difficile Rule-Out 11/01/2024 11/02/2024 024 9:43 AM EST Assessment Noted Time PHQ-9 Depression Total Score: 9 06/05/20 20 9:52 AM EDT documented as of this encounter Care Teams Station Repairer Relationship Specialty Start Date End Date Ilya Gusman MD [address] [place] [address] [phone] PCP - General 05/14/17 [facility] 09/01/25 documented as of this encounter
--- OUTSIDE RECORDS SUMMARY | 2025-10-06 22:27 | XMS_ITS | Encounter Summary ---
Author Organization [facility] ystem Address [address] [place] [address] Phone Care Team Providers Care Attenuator Name Role Phone Ilya Gusman MD Primary Care Provider Encounter Details Date Type Department Care Team ([facility] Contact Info) Description 01/07/2024 Orders Only [facility] - Health Information Department [address] [place] [address] [phone] Scan, No Provider Available [address] [place] [address] Dr. Eleazar [place] [phone] Social History Tobacco Use Types Packs/Day Years [...] Team ([facility] Contact Info) Description 10/10/2025 10:30 AM EST Office Visit [facility] - Internal Medicine [address] [place] [phone] Ilya Gusman MD [address] [place] [phone] Christophe Dailey MD [address] [place] [phone] 01/18/2026 1:00 PM EST Office Visit [facility] [address] [place] [address] Porsha Marsh, SHIPPING LEAD PERSON [address] [place] [address] [phone] 02/22/2026 11:00 AM EDT Office Visit [facility] [address] [place] [address] [address] [place] [phone] Alonso Bae MD [address] [place] [address] [address] [place] [address] 07/17/2026 2:00 PM EDT Office Visit [facility] - Internal Medicine [address] [place] [phone] Ilya Gusman MD [address] [place] [phone] 07/19/2026 11:40 AM EDT Office Visit [facility] [address] [place] [phone] Yesi Perez MD [address] [place] [address] documented as of this encounter Procedures Procedure Name Priority Date/Time Associated Diagnosis Comments COVID-19 (EXTERNAL) Routine 01/06/2024 MR [facility] Routine 01/06/2024 XR CHEST 1 VW Routine 01/06/2024 CT HEAD WO CONTRAST Routine 01/06/2024 documented in this encounter Results * COVID-19 (External) (01/06/2024) External COVID-19 Negative Not Detected, Negative, Non-reacti ve [facility] Nasopharyngeal (Nasopharynx) us Historical Provider MD LAB MICROBIOLOGY - GENERA L ORDERABLES Final Result [facility] [address] [place] [address], [place] [phone] * MR Kirk briseno (01/06/2024) us No [...] documented as of this encounter Care Teams Attenuator Relationship Specialty Start Date End Date Ilya Gusman MD [address] [place] [phone] PCP - General 05/14/17 [facility] 09/01/25 documented as of this encounter
--- OUTSIDE RECORDS SUMMARY | 2025-10-06 22:27 | XMS_ITS | Encounter Summary ---
Author Organization [facility] ystem Address [address] [place] [address] Phone Care Team Providers Care Harvest Supervisor Name Role Phone Ilya Gusman MD Primary Care Provider [phone] Encounter Details Date Type Department Care Team (Late Contact Info) Description 01/06/2024 Scanned Document [facility] - Health Information Department [address] [place] [address] [phone] Scan, No Provider Available [address] [place] [address] [place] [address] <No scans attached> Social History Tobacco Use [...] Upcoming Encounters Date Type Department Care Team ([facility] Contact Info) Description 10/10/2025 10:30 AM EST Office Visit [facility] - Internal Medicine [address] [place] [phone] Ilya Gusman MD [address] [place] [phone] Christophe Dailey MD [address] [place] [address] [phone] 01/18/2026 1:00 PM EST Office Visit [facility] [address] [place] [address] Porsha Marsh, OPERATING ROOM SPECIALIST [address] [place] [address] 02/22/2026 11:00 AM EDT Office Visit [facility] [address] [place] [address] [address] [place] [phone] Alonso Bae MD [address] [place] [address] [address] [place] [address] 07/17/2026 2:00 PM EDT Office Visit [facility] - Internal Medicine [address] [place] [phone] Ilya Gusman MD [address] [place] [phone] 07/19/2026 11:40 AM EDT Office Visit [facility] [address] [place] [address]94[address] Yesi Perez MD [address] [place] [address] 524[address] documented as of this encounter Visit Diagnoses Not on filedocumented in this encounter Additional Health Concerns Infection Onset Date Last Indicated Resolved Time C difficile Rule-Out 11/01/2024 11/02/2024 024 9:43 AM EST Assessment Noted Time PHQ-9 Depression Total Score: 9 06/05/20 20 9:52 AM EDT documented as of this encounter Care Teams Harvest Supervisor Relationship Specialty Start Date End Date Ilya Gusman MD [address] [place] [address] [phone] PCP - General 05/14/17 [facility] 09/01/25 documented as of this encounter
--- OUTSIDE RECORDS SUMMARY | 2025-10-06 22:27 | XMS_ITS | Encounter Summary ---
Author Organization [facility] ystem Address [address] [place] [address] Phone Care Team Providers Care Correctional Officer Captain Name Role Phone Ilya Gusman MD Primary Care Provider [phone] Encounter Details Date Type Department Care Team (Late Contact Info) Description 05/10/2024 Scanned Document [facility] - Health Information Department [address] [place] [address] [phone] Scan, No Provider Available [address] [place] [address] [place] [address] <No scans attached> Social History Tobacco Use [...] Upcoming Encounters Date Type Department Care Team ([facility] Contact Info) Description 10/10/2025 10:30 AM EST Office Visit [facility] - Internal Medicine [address] [place] [phone] Ilya Gusman MD [address] [place] [phone] Christophe Dailey MD [address] [place] [address] [phone] 01/18/2026 1:00 PM EST Office Visit [facility] [address] [place] [phone] Porsha Marsh, HEALTH EDUCATION SPECIALIST [address] [place] [address] 02/22/2026 11:00 AM EDT Office Visit [facility] [address] [place] [address] [address] [place] [phone] Alonso Bae MD [address] [place] [address] [address] [place] [address] 07/17/2026 2:00 PM EDT Office Visit [facility] - Internal Medicine [address] [place] [phone] Ilya Gusman MD [address] [place] [phone] 07/19/2026 11:40 AM EDT Office Visit [facility] [address] [place] [address] 78[address] Yesi Perez MD [address] [place] [address] 96171 documented as of this encounter Visit Diagnoses Not on filedocumented in this encounter Additional Health Concerns Infection Onset Date Last Indicated Resolved Time C difficile Rule-Out 11/01/2024 11/02/2024 024 9:43 AM EST Assessment Noted Time PHQ-9 Depression Total Score: 6 04/28/20 24 1:53 PM EDT documented as of this encounter Care Teams Correctional Officer Captain Relationship Specialty Start Date End Date Ilya Gusman MD [address] [place] [address] [phone] PCP - General 05/14/17 [facility] 09/01/25 documented as of this encounter
--- OUTSIDE RECORDS SUMMARY | 2025-10-06 22:27 | XMS_ITS | Encounter Summary ---
Author Organization [facility] ystem Address [address] [place] [address] Phone Care Team Providers Care Metal Forger'S Assistant Name Role Phone Ilya Gusman MD Primary Care Provider [phone] Encounter Details Date Type Department Care Team (Late Contact Info) Description 01/08/2024 Scanned Document [facility] - Health Information Department [address] [place] [address] [phone] Scan, No Provider Available [address] [place] [address] [place] [address] <No scans attached> Social History Tobacco Use [...] Upcoming Encounters Date Type Department Care Team ([facility] Contact Info) Description 10/10/2025 10:30 AM EST Office Visit [facility] - Internal Medicine [address] [place] [phone] Ilya Gusman MD [address] [place] [phone] Christophe Dailey MD [address] [place] [address] [phone] 01/18/2026 1:00 PM EST Office Visit [facility] [address] [place] [address] 24[address] Porsha Marsh, DIRECTOR OF ACQUISITIONS [address] [place] [address] 6[address] 02/22/2026 11:00 AM EDT Office Visit [facility] [address] [place] [address] [address] [place] [phone] Alonso Bae MD [address] [place] [address] [address] [place] [address] 07/17/2026 2:00 PM EDT Office Visit [facility] - Internal Medicine [address] [place] [phone] Ilya Gusman MD [address] [place] [phone] 07/19/2026 11:40 AM EDT Office Visit [facility] [address] [place] [address] 48418 Yesi Perez MD [address] [place] [address] 92962 documented as of this encounter Visit Diagnoses Not on filedocumented in this encounter Additional Health Concerns Infection Onset Date Last Indicated Resolved Time C difficile Rule-Out 11/01/2024 11/02/2024 024 9:43 AM EST Assessment Noted Time PHQ-9 Depression Total Score: 9 06/05/20 20 9:52 AM EDT documented as of this encounter Care Teams Metal Forger'S Assistant Relationship Specialty Start Date End Date Ilya Gusman MD [address] [place] [address] [phone] PCP - General 05/14/17 [facility] 09/01/25 documented as of this encounter
--- OUTSIDE RECORDS SUMMARY | 2025-10-06 22:27 | XMS_ITS | Encounter Summary ---
Author Organization [facility] ystem Address [address] [place] [address] Phone Care Team Providers Care Jack Of All Trades Name Role Phone Ilya Gusman MD Primary Care Provider Encounter Details Date Type Department Care Team (Late Contact Info) Description 05/08/2024 Scanned Document [facility] - Health Information Department [address] [place] [address] 92633 Scan, No Provider Available [address] [place] [address] [place] [address] <No scans attached> Social History Tobacco Use [...] Upcoming Encounters Date Type Department Care Team ([facility] Contact Info) Description 10/10/2025 10:30 AM EST Office Visit [facility] - Internal Medicine [address] [place] [phone] Ilya Gusman MD [address] [place] [phone] Christophe Dailey MD [address] [place] [address] [phone] 01/18/2026 1:00 PM EST Office Visit [facility] [address] [place] [address] 18829 Porsha Marsh, PHOTOGRAMMETRIC COMPILATION SPECIALIST [address] [place] [address] 02/22/2026 11:00 AM EDT Office Visit [facility] [address] [place] [address] [address] [place] [phone] Alonso Bae MD [address] [place] [address] [address] [place] [address] 07/17/2026 2:00 PM EDT Office Visit [facility] - Internal Medicine [address] [place] [phone] Ilya Gusman MD [address] [place] [phone] 07/19/2026 11:40 AM EDT Office Visit [facility] [address] [place] [address] 45949 Yesi Perez MD [address] [place] [address] 81812 documented as of this encounter Visit Diagnoses Not on filedocumented in this encounter Additional Health Concerns Infection Onset Date Last Indicated Resolved Time C difficile Rule-Out 11/01/2024 11/02/2024 024 9:43 AM EST Assessment Noted Time PHQ-9 Depression Total Score: 6 04/28/20 24 1:53 PM EDT documented as of this encounter Care Teams Jack Of All Trades Relationship Specialty Start Date End Date Ilya Gusman MD [address] [place] [address] [phone] PCP - General 05/14/17 [facility] 09/01/25 documented as of this encounter
--- OUTSIDE RECORDS SUMMARY | 2025-10-06 22:28 | XMS_ITS | Encounter Summary ---
Author Organization [facility] ystem Address [address] [place] [address] Phone Care Team Providers Care Sintering Plant Supervisor Name Role Phone Ilya Gusman MD Primary Care Provider [phone] Encounter Details Date Type Department Care Team (Late Contact Info) Description 04/04/2019 Scanned Document [facility] - Health Information Department [address] [place] [address] [phone] Scan, No Provider Available [address] [place] [address] [facility] [place] [address] <No scans attached> Social History Tobacco Use [...] Description 10/10/2025 10:30 AM EST Office Visit [facility] - Internal Medicine [address] [place] [phone] Ilya Gusman MD [address] [place] [phone] Christophe Dailey MD [address] [place] [phone] 01/18/2026 1:00 PM EST Office Visit [facility] [address] [place] [address] 148[address] Porsha Marsh, FEEDER TENDER [address] [place] [address] 7[address] 02/22/2026 11:00 AM EDT Office Visit [facility] [address] [place] [address] [address] [place] [phone] Alonso Bae MD [address] [place] [address] [address] [place] [address] 07/17/2026 2:00 PM EDT Office Visit [facility] - Internal Medicine [address] [place] [phone] Ilya Gusman MD [address] [place] [phone] 07/19/2026 11:40 AM EDT Office Visit [facility] [address] [place] [address] 81642 Yesi Perez MD [address] [place] [address] 19039 documented as of this encounter Visit Diagnoses [...] documented as of this encounter Care Teams Sintering Plant Supervisor Relationship Specialty Start Date End Date Ilya Gusman MD [address] [place] [phone] PCP - General 05/14/17 [facility] 09/01/25 documented as of this encounter
--- OUTSIDE RECORDS SUMMARY | 2025-10-06 22:28 | XMS_ITS | Encounter Summary ---
Author Organization [facility] ystem Address [address] [place] [address] Phone Care Team Providers Care Admissions Clerk Name Role Phone Ilya Gusman MD Primary Care Provider [phone] Encounter Details Date Type Department Care Team ([facility] Contact Info) Description 04/07/2024 Orders Only [facility] - Health Information Department [address] [place] [address] 72289 Scan, No Provider Available [address] [place] [address] Dr. Eleazar [place] [phone] Social History Tobacco Use Types Packs/Day Years [...] Upcoming Encounters Date Type Department Care Team ([facility] Contact Info) Description 10/10/2025 10:30 AM EST Office Visit [facility] - Internal Medicine [address] [place] [phone] Ilya Gusman MD [address] [place] [phone] Christophe Dailey MD [address] [place] [phone] 01/18/2026 1:00 PM EST Office Visit [facility] [address] [place] [address] Porsha Marsh, FIELD PROFESSIONAL [address] [place] [address] 02/22/2026 11:00 AM EDT Office Visit [facility] [address] [place] [address] [address] [place] [phone] Alonso Bae MD [address] [place] [address] [address] [place] [address] 07/17/2026 2:00 PM EDT Office Visit [facility] - Internal Medicine [address] [place] [phone] Ilya Gusman MD [address] [place] [phone] 07/19/2026 11:40 AM EDT Office Visit [facility] [address] [place] [address]329 Yesi Perez MD [address] [place] [address] documented as of this encounter Procedures Procedure [...] Negative Not Detected, Negative, Non-reacti ve [facility] Nasopharyngeal (Nasopharynx) Historical Provider LAB MICROBIOLOGY - GENERA L ORDERABLES Final Result Performing Organization Address City/State/[facility] Co de Phone Number [facility] [address] [place] [address], [place] [phone] documented in this encounter Visit Diagnoses Not on filedocumented in this encounter Additional Health Concerns Infection Onset Date Last Indicated Resolved Time C difficile Rule-Out 11/01/2024 11/02/2024 024 9:43 AM EST Assessment Noted Time PHQ-9 Depression Total Score: 9 06/05/20 20 9:52 AM EDT documented as of this encounter Care Teams Admissions Clerk Relationship Specialty Start Date End Date Ilya Gusman MD [address] [place] [address] [phone] PCP - General 05/14/17 [facility] 09/01/25 documented as of this encounter
--- OUTSIDE RECORDS SUMMARY | 2025-10-06 22:28 | XMS_ITS | Encounter Summary ---
Author Organization [facility] ystem Address [address] [place] [address] Phone Care Team Providers Care Pattern Changer And Repairer Name Role Phone Ilya Gusman MD Primary Care Provider Encounter Details Date Type Department Care Team (Late Contact Info) Description 04/15/2024 Scanned Document [facility] - Health Information Department [address] [place] [address] [phone] Scan, No Provider Available [address] [place] [address] [place] [address] <No scans attached> Social History Tobacco Use [...] Upcoming Encounters Date Type Department Care Team ([facility] Contact Info) Description 10/10/2025 10:30 AM EST Office Visit [facility] - Internal Medicine [address] [place] [phone] Ilya Gusman MD [address] [place] [phone] Christophe Dailey MD [address] [place] [address] [phone] 01/18/2026 1:00 PM EST Office Visit [facility] [address] [place] [address] 32799 Porsha Marsh, TUBE DRAWER [address] [place] [address] 655[address] 02/22/2026 11:00 AM EDT Office Visit [facility] [address] [place] [address] [address] [place] [phone] Alonso Bae MD [address] [place] [address] [address] [place] [address] 07/17/2026 2:00 PM EDT Office Visit [facility] - Internal Medicine [address] [place] [phone] Ilya Gusman MD [address] [place] [phone] 07/19/2026 11:40 AM EDT Office Visit [facility] [address] [place] [address] Yesi Perez MD [address] [place] [address] 34[address] documented as of this encounter Visit Diagnoses Not on filedocumented in this encounter Additional Health Concerns Infection Onset Date Last Indicated Resolved Time C difficile Rule-Out 11/01/2024 11/02/2024 024 9:43 AM EST Assessment Noted Time PHQ-9 Depression Total Score: 9 06/05/20 20 9:52 AM EDT documented as of this encounter Care Teams Pattern Changer And Repairer Relationship Specialty Start Date End Date Ilya Gusman MD [address] [place] [address] [phone] PCP - General 05/14/17 [facility] 09/01/25 documented as of this encounter
--- OUTSIDE RECORDS SUMMARY | 2025-10-06 22:28 | XMS_ITS | Encounter Summary ---
Author Organization [facility] ystem Address [address] [place] [address] Phone Care Team Providers Care Medical Physics Teacher Name Role Phone Ilya Gusman MD Primary Care Provider [phone] Encounter Details Date Type Department Care Team ([facility] Contact Info) Description 03/25/2024 Orders Only [facility] - Health Information Department [address] [place] [address] Scan, No Provider Available [address] [place] [address] Dr. Eleazar [place] [phone] Social History Tobacco Use Types Packs/Day Years [...] Upcoming Encounters Date Type Department Care Team ([facility] Contact Info) Description 10/10/2025 10:30 AM EST Office Visit [facility] - Internal Medicine [address] [place] [phone] Ilya Gusman MD [address] [place] [phone] Christophe Dailey MD [address] [place] [phone] 01/18/2026 1:00 PM EST Office Visit [facility] [address] [place] [address] Porsha Marsh, AUTOMOBILE MECHANIC RADIATOR [address] [place] [address] 02/22/2026 11:00 AM EDT Office Visit [facility] [address] [place] [address] [address] [place] [phone] Alonso Bae MD [address] [place] [address] [address] [place] [address] 07/17/2026 2:00 PM EDT Office Visit [facility] - Internal Medicine [address] [place] [phone] Ilya Gusman MD [address] [place] [phone] 07/19/2026 11:40 AM EDT Office Visit [address] [address] Yesi Perez MD [address] [place] [address] documented as of this encounter Procedures Procedure [...] as of this encounter Care Teams Medical Physics Teacher Relationship Specialty Start Date End Date Ilya Gusman MD [address] [place] [phone] PCP - General 05/14/17 [facility] 09/01/25 documented as of this encounter
--- OUTSIDE RECORDS SUMMARY | 2025-10-06 22:28 | XMS_ITS | Encounter Summary ---
Author Organization [facility] ystem Address [address] [place] [address] Phone Care Team Providers Care Ship/Rec/Doc Control Name Role Phone Ilya Gusman MD Primary Care Provider [phone] Encounter Details Date Type Department Care Team (Late Contact Info) Description 04/13/2024 Scanned Document [facility] - Health Information Department [address] [place] [address] Scan, No Provider Available [address] [place] [address] [place] [address] <No scans attached> Social History Tobacco Use [...] ([facility] Contact Info) Description 10/10/2025 10:30 AM EST Office Visit [facility] - Internal Medicine [address] [place] [phone] Ilya Gusman MD [address] [place] [phone] Christophe Dailey MD [address] [place] [phone] 01/18/2026 1:00 PM EST Office Visit [facility] [address] [place] [address] Porsha Marsh, SENIOR WEB DESIGNER [address] [place] [address] 02/22/2026 11:00 AM EDT Office Visit [facility] [address] [place] [address] [address] [place] [phone] Alonso Bae MD [address] [place] [address] [address] [place] [address] 07/17/2026 2:00 PM EDT Office Visit [facility] - Internal Medicine [address] [place] [phone] Ilya Gusman MD [address] [place] [phone] 07/19/2026 11:40 AM EDT Office Visit [facility] [address] [place] [address] Yesi Perez MD [address] [place] [address] documented as of this encounter Visit Diagnoses Not on filedocumented in this encounter Additional Health Concerns Infection Onset Date Last Indicated Resolved Time C difficile Rule-Out 11/01/2024 11/02/2024 024 9:43 AM EST Assessment Noted Time PHQ-9 Depression Total Score: 9 06/05/20 20 9:52 AM EDT documented as of this encounter Care Teams Ship/Rec/Doc Control Relationship Specialty Start Date End Date Ilya Gusman MD [address] [place] [phone] PCP - General 05/14/17 [facility] 09/01/25 documented as of this encounter
--- OUTSIDE RECORDS SUMMARY | 2025-10-06 22:28 | XMS_ITS | Encounter Summary ---
Author Organization [facility] ystem Address [address] [place] [address] Phone Care Team Providers Care Oil Sprayer Name Role Phone Ilya Gusman MD Primary Care Provider [phone] Encounter Details Date Type Department Care Team (Late st Contact Info) Description 05/05/2025 Scanned Document [facility] - Health Information Department [address] [place], [place] [phone] Scan, No Provider Available [address] [place] [address] [place] [address] <No scans attached> Social History Tobacco Use [...] Description 10/10/2025 10:30 AM EST Office Visit [facility] - Internal Medicine [address] [place] [phone] Ilya Gusman MD [address] [place] [phone] Christophe Dailey MD [address] [place] [phone] 01/18/2026 1:00 PM EST Office Visit [facility] [address] [address] Porsha Marsh, PHYSICAL THER [address] [place] [address] 02/22/2026 11:00 AM EDT Office Visit [facility] [address] [place] [address] [address] [place] [phone] Alonso Bea MD [address] [place] [address] [address] [place] [address] 07/17/2026 2:00 PM EDT Office Visit [facility] - Internal Medicine [address] [place] [phone] Ilya Gusman MD [address] [place] [phone] 07/19/2026 11:40 AM EDT Office Visit [facility] [address] [place] [address] Yesi Perez MD 70 [place] [address] documented as of this encounter Visit Diagnoses Not on filedocumented in this encounter Additional Health Concerns Assessment Noted Time PHQ-9 Depression Total Score: 6 04/28/20 24 1:53 PM EDT documented as of this encounter Care Teams Oil Sprayer Relationship Specialty Start Date End Date Ilya Gusman MD [address] [place] [phone] PCP - General 05/14/17 [facility] 09/01/25 documented as of this encounter
--- OUTSIDE RECORDS SUMMARY | 2025-10-06 22:28 | XMS_ITS | Encounter Summary ---
Author Organization [facility] ystem Address [address] [place] [address] Phone Care Team Providers Care Technical Services Manager Name Role Phone Ilya Gusman MD Primary Care Provider [phone] Encounter Details Date Type Department Care Team (Late Contact Info) Description 03/25/2025 Procedure Pass [facility] - MR Imaging [address] [place] [address] Social History Tobacco Use Types [...] [facility] - Internal Medicine [address] [place] [phone] Ilya Gusman MD [address] [place] [phone] Christophe Dailey MD [address] [place] [phone] 01/18/2026 1:00 PM EST Office Visit [facility] [address] [place] [address] Porsha Marsh, DIRECTOR ENTERPRISE DATA ARCHITECTURE [address] [place] [address] 02/22/2026 11:00 AM EDT Office Visit [facility] [address] [place] [address] [address] [place] [phone] Alonso Bae MD [address] [place] [address] [address] [place] [address] 07/17/2026 2:00 PM EDT Office Visit [facility] - Internal Medicine [address] [place] [phone] Ilya Gusman MD [address] [place] [phone] 07/19/2026 11:40 AM EDT Office Visit [address] [address] Yesi Perez MD [address] [place] [address] documented as of this encounter Visit Diagnoses Not on filedocumented in this encounter Additional Health Concerns Assessment Noted Time PHQ-9 Depression Total Score: 6 04/28/20 24 1:53 PM EDT documented as of this encounter Care Teams Technical Services Manager Relationship Specialty Start Date End Date Ilya Gusman MD [address] [place] [phone] PCP - General 05/14/17 [facility] 09/01/25 documented as of this encounter
--- OUTSIDE RECORDS SUMMARY | 2025-10-06 22:28 | XMS_ITS | Encounter Summary ---
Author Organization [facility] ystem Address [address] [place] [address] Phone Care Team Providers Care Bonded Strand Operator Name Role Phone Ilya Gusman MD Primary Care Provider [phone] Encounter Details Date Type Department Care Team (Late Contact Info) Description 04/06/2024 Scanned Document [facility] - Health Information Department [address] [place] [address] Scan, No Provider Available [address] [place] [address] [place] [address] <No scans attached> Social History Tobacco Use [...] Upcoming Encounters Date Type Department Care Team ([facility] Contact Info) Description 10/10/2025 10:30 AM EST Office Visit [facility] - Internal Medicine [address] [place] [phone] Ilya Gusman MD [address] [place] [phone] Christophe Dailey MD [address] [place] [address] [phone] 01/18/2026 1:00 PM EST Office Visit [facility] [address] [place] [address] Porsha Marsh, THREAD REELER [address] [place] [address] 02/22/2026 11:00 AM EDT Office Visit [facility] [address] [place] [address] [address] [place] [phone] Alonso Bae MD [address] [place] [address] [address] [place] [address] 07/17/2026 2:00 PM EDT Office Visit [facility] - Internal Medicine [address] [place] [phone] Ilya Gusman MD [address] [place] [phone] 07/19/2026 11:40 AM EDT Office Visit [facility] [address] [place] [address] Yesi Perez MD [address] [place] [address] documented as of this encounter Visit Diagnoses Not on filedocumented in this encounter Additional Health Concerns Infection Onset Date Last Indicated Resolved Time C difficile Rule-Out 11/01/2024 11/02/2024 024 9:43 AM EST Assessment Noted Time PHQ-9 Depression Total Score: 9 06/05/20 20 9:52 AM EDT documented as of this encounter Care Teams Bonded Strand Operator Relationship Specialty Start Date End Date Ilya Gusman MD [address] [place] [phone] PCP - General 05/14/17 [facility] 09/01/25 documented as of this encounter
--- OUTSIDE RECORDS SUMMARY | 2025-10-06 22:28 | XMS_ITS | Encounter Summary ---
Author Organization [facility] ystem Address [address] [place] [address] Phone Care Team Providers Care Artist Agent Name Role Phone Ilya Gusman MD Primary Care Provider Encounter Details Date Type Department Care Team (Late Contact Info) Description 03/11/2025 Scanned Document [facility] - Health Information Department [address] [place] [address] Scan, No Provider Available [address] [place] [address] [place] [address] <No scans attached> Social History Tobacco Use [...] Team ([facility] Contact Info) Description 10/10/2025 10:30 AM EST Office Visit [facility] - Internal Medicine [address] [place] [phone] Ilya Gusman MD [address] [place] [phone] Christophe Dailey MD [address] [place] [phone] 01/18/2026 1:00 PM EST Office Visit [facility] [address] [place] [address] Porsha Marsh, BOSOM PRESSER [address] [place] [address] 02/22/2026 11:00 AM EDT Office Visit [facility] [address] [place] [address] [address] [place] [phone] Alonso Bae MD [address] [place] [address] [address] [place] [address] 07/17/2026 2:00 PM EDT Office Visit [facility] - Internal Medicine [address] [place] [phone] Ilya Gusman MD [address] [place] [phone] 07/19/2026 11:40 AM EDT Office Visit [facility] [address] [place] [address] Yesi Perez MD [address] [place] [address] documented as of this encounter Visit Diagnoses Not on filedocumented in this encounter Additional Health Concerns Assessment Noted Time PHQ-9 Depression Total Score: 6 04/28/20 24 1:53 PM EDT documented as of this encounter Care Teams Artist Agent Relationship Specialty Start Date End Date Ilya Gusman MD [address] [place] [phone] PCP - General 05/14/17 [facility] 09/01/25 documented as of this encounter
--- OUTSIDE RECORDS SUMMARY | 2025-10-06 22:28 | XMS_ITS | Encounter Summary ---
Author Organization [facility] ystem Address [address] [place] [address] Phone Care Team Providers Care Accountant Controller Name Role Phone Ilya Gusman MD Primary Care Provider [phone] Encounter Details Date Type Department Care Team ([facility] Contact Info) Description 06/10/[address] [facility] - Health Information Department [address] [place] [phone] Scan, No Provider Available [address] [place] [address] Dr. Bush [place] [phone] Social History Tobacco Use Types Packs/Day Years [...] Date Type Department Care Team ([facility] Contact Info) Description 10/10/2025 10:30 AM EST Office Visit [facility] - Internal Medicine [address] [place] [phone] Ilya Gusman MD [address] [place] [phone] Christophe Dailey MD [address] [place] [phone] 01/18/2026 1:00 PM EST Office Visit [facility] [address] [place] [address] Porsha Marsh, WESTERN PHILOSOPHY PROFESSOR [address] [place] [address] 02/22/2026 11:00 AM EDT Office Visit [facility] [address] [place] [address] [address] [place] [phone] Alonso Bae MD [address] [place] [address] [address] [place] [address] 07/17/2026 2:00 PM EDT Office Visit [facility] - Internal Medicine [address] [place] [phone] Ilya Gusman MD [address] [place] [phone] 07/19/2026 11:40 AM EDT Office Visit [facility] [address] [place] [address] Yesi Perez MD [address] [place] [address] documented as of this encounter Procedures Procedure [...] documented as of this encounter Care Teams Accountant Controller Relationship Specialty Start Date End Date Ilya Gusman MD [address] [place] [phone] PCP - General 05/14/17 [facility] 09/01/25 documented as of this encounter
--- OUTSIDE RECORDS SUMMARY | 2025-10-06 22:28 | XMS_ITS | Encounter Summary ---
Author Organization [facility] ystem Address [address] [place] [address] Phone Care Team Providers Care Auto Collision Repair Instructor Name Role Phone Ilya Gusman MD Primary Care Provider [phone] Encounter Details Date Type Department Care Team (Late st Contact Info) Description 04/19/2021 Scanned Document [facility] - Health Information Department [address] [place], [place] [phone] Scan, No Provider Available [address] [facility] [place] [address] <No scans attached> Social History Tobacco Use [...] Visit [facility] - Internal Medicine [address] [place] [phone] Ilya Gusman MD [address] [place] [phone] Christophe Dailey MD [address] [place] [phone] 01/18/2026 1:00 PM EST Office Visit [facility] [address] [place] [address] Porsha Marsh, LAY OUT FORMER [address] [place] [address] 02/22/2026 11:00 AM EDT Office Visit [facility] [address] [place] [address] [address] [place] [phone] Alonso Bae MD [address] [place] [address] [address] [place] [address] 07/17/2026 2:00 PM EDT Office Visit [facility] - Internal Medicine [address] [place] [phone] Ilya Gusman MD [address] [place] [phone] 07/19/2026 11:40 AM EDT Office Visit [facility] [address] [place] [address] Yesi Perez MD [address] [place] [address] documented as of this encounter Visit Diagnoses [...] documented as of this encounter Care Teams Auto Collision Repair Instructor Relationship Specialty Start Date End Date Ilya Gusman MD [address] [place] [phone] PCP - General 05/14/17 [facility] 09/01/25 documented as of this encounter
--- OUTSIDE RECORDS SUMMARY | 2025-10-06 22:28 | XMS_ITS | Encounter Summary ---
Author Organization [facility] ystem Address [address] [place] [address] Phone Care Team Providers Care Concaving Machine Operator Name Role Phone Ilya Gusman MD Primary Care Provider [phone] Encounter Details Date Type Department Care Team ([facility] Contact Info) Description 04/13/2024 Orders Only [facility] - Health Information Department [address] [place] [address] Scan, No Provider Available [address] [place] [address] Dr. Eleazar [place] [phone] Social History Tobacco Use Types Packs/Day Years [...] Encounters Date Type Department Care Team ([facility] Contact Info) Description 10/10/2025 10:30 AM EST Office Visit [facility] - Internal Medicine [address] [place] [phone] Ilya Gusman MD [address] [place] [phone] Christophe Dailey MD [address] [place] [phone] 01/18/2026 1:00 PM EST Office Visit [facility] [address] [place] [address] Porsha Marsh, TELETYPESETTER OPERATOR [address] [place] [address] 02/22/2026 11:00 AM EDT Office Visit [facility] [address] [place] [address] [address] [place] [phone] Alonso Bae MD [address] [place] [address] [address] [place] [address] 07/17/2026 2:00 PM EDT Office Visit [facility] - Internal Medicine [address] [place] [phone] Ilya Gusman MD [address] [place] [phone] 07/19/2026 11:40 AM EDT Office Visit [facility] [address] [place] [address] Yesi Perez MD [address] [place] [address] documented as of this encounter Procedures Procedure [...] documented as of this encounter Care Teams Concaving Machine Operator Relationship Specialty Start Date End Date Ilya Gusman MD [address] [place] [phone] PCP - General 05/14/17 [facility] 09/01/25 documented as of this encounter
--- OUTSIDE RECORDS SUMMARY | 2025-10-06 22:28 | XMS_ITS | Encounter Summary ---
Author Organization [facility] ystem Address [address] [place] [address] Phone Care Team Providers Care Longwall Foreman Name Role Phone Ilya Gusman MD Primary Care Provider [phone] Encounter Details Date Type Department Care Team (Late Contact Info) Description 03/09/2025 Scanned Document [facility] - Health Information Department [address] [place] [phone] Scan, No Provider Available [address] [place] [address] [place] [address] <No scans attached> Social History Tobacco Use [...] Upcoming Encounters Date Type Department Care Team ([facility] Contact Info) Description 10/10/2025 10:30 AM EST Office Visit [facility] - Internal Medicine [address] [place] [phone] Ilya Gusman MD [address] [place] [phone] Christophe Dailey MD [address] [place] [address] [phone] 01/18/2026 1:00 PM EST Office Visit [facility] [address] [place] [address] Porsha Marsh, TAPPER BALANCE WHEEL SCREW HOLE [address] [place] [address] 02/22/2026 11:00 AM EDT Office Visit [facility] [address] [place] [address] [address] [place] [phone] Alonso Bae MD [address] [place] [address] [address] [place] [address] 07/17/2026 2:00 PM EDT Office Visit [facility] - Internal Medicine [address] [place] [phone] Ilya Gusman MD [address] [place] [phone] 07/19/2026 11:40 AM EDT Office Visit [facility] [address] [place] [address] Yesi Perez MD [address] [place] [address] documented as of this encounter Visit Diagnoses Not on filedocumented in this encounter Additional Health Concerns Assessment Noted Time PHQ-9 Depression Total Score: 6 04/28/20 24 1:53 PM EDT documented as of this encounter Care Teams Longwall Foreman Relationship Specialty Start Date End Date Ilay Gusman MD [address] [place] [phone] PCP - General 05/14/17 [facility] 09/01/25 documented as of this encounter
--- OUTSIDE RECORDS SUMMARY | 2025-10-06 22:28 | XMS_ITS | Encounter Summary ---
Author Organization [facility] Address [address] [place] [address] Phone Care Team Providers Care Filter Helper Name Role Phone Ilya Gusman MD Primary Care Provider [phone] Reason for Visit * Reason Onset Date Comments Med Refill 04/26/2019 Med Refill 04/27/2019 Encounter Details Date Type Department Care Team ([facility] Contact Info) Description 04/26/2019 Telephone [facility] - Internal Medicine [address] [place] [phone] Ilya Gusman MD [address] [place] [phone] Med Refill; Med Refill Social History [...] Notes * Telephone Encounter - Brielle, Andres, VERIFICATION ENGINEER - 04/30/2019 12:00 PM EDT Pt states he will get this from . Delio Hannah LPN LNG IM triage * Telephone Encounter - Saritha Terrazas RN - 04/30/2019 10:14 AM EDT Called pt and left voicemail to call office back. Saritha Terrazas RNinsurance claims assistant * Telephone Encounter - Suly Walker LPN - 04/29/2019 8:51 AM EDT Called pt, left message for pt to call back Suly Walker LPN LNGIM * Telephone Encounter - Samuel Cross RN - 04/28/2019 6:27 PM EDT Pharm has no record of med. Pt called [facility] to find out what pharm he got med from. SAMUEL CROSS RN * Telephone Encounter - Ilya Gusman MD - 04/28/2019 6:14 PM EDT Please confirm dose with pharmacy. We have it listed as 5 mg (1/2 tab) daily. * Telephone Encounter - Tanvir Quevedo RN - 04/28/2019 9:25 AM EDT Call to patient, patient states he was out in [place] for a few months and found psych [...] AM MD SHALA Wen IM SHALA Schneider [facility] Refill Team [employer] documented in this encounter Plan of Treatment Upcoming Encounters Date Type Department Care Team (Late st Contact Info) Description 10/10/2025 10:30 AM EST Office Visit [facility] - Internal Medicine [address] [place] [phone] Ilya Gusman MD [address] [place] [phone] Christophe Dailey MD [address] [place] [phone] 01/18/2026 1:00 PM EST Office Visit [facility] [address] [place] [address] Porsha Marsh, ENVELOPE FOLD OPERATOR [address] [place] [address] 02/22/2026 11:00 AM EDT Office Visit [facility] [address] [place] [address] [address] [place] [phone] Alonso Bae MD [address] [place] [address] [address] [place] [address] 07/17/2026 2:00 PM EDT Office Visit [facility] - Internal Medicine [address] [place] [phone] Ilya Gusman MD [address] [place] [phone] 07/19/2026 11:40 AM EDT Office Visit [facility] [address] [place] [address] Yesi Perez MD [address] [place] [address] documented as of this encounter Visit Diagnoses [...] documented as of this encounter Care Teams Filter Helper Relationship Specialty Start Date End Date Ilya Gusman MD [address] [place] [phone] PCP - General 05/14/17 [facility] 09/01/25 documented as of this encounter
--- OUTSIDE RECORDS SUMMARY | 2025-10-06 22:28 | XMS_ITS | Encounter Summary ---
Author Organization [facility] ystem Address [address] [place] [address] Phone Care Team Providers Care Data Science And Iot Manager Name Role Phone Ilya Gusman MD Primary Care Provider [phone] Encounter Details Date Type Department Care Team (Late Contact Info) Description 03/26/2025 Procedure Pass [facility] - MR Imaging [address] [place] [address] Social History Tobacco Use [...] Visit [facility] - Internal Medicine [address] [place] [phone] Ilya Gusman MD [address] [place] [phone] Christophe Dailey MD [address] [place] [phone] 01/18/2026 1:00 PM EST Office Visit [facility] [address] [place] [address] Porsha Marsh, BATTERY TEST ENGINEER [address] [place] [address] 02/22/2026 11:00 AM EDT Office Visit [facility] [address] [place] [address] [address] [place] [phone] Alonso Bae MD [address] [place] [address] 2 [place] [address] 07/17/2026 2:00 PM EDT Office Visit [facility] - Internal Medicine [address] [place] [phone] Ilya Gusman MD [address] [place] [phone] 07/19/2026 11:40 AM EDT Office Visit [address] [address] Yesi Perez MD [address] [place] [address] documented as of this encounter Visit Diagnoses Not on filedocumented in this encounter Additional Health Concerns Assessment Noted Time PHQ-9 Depression Total Score: 6 04/28/20 24 1:53 PM EDT documented as of this encounter Care Teams Data Science And Iot Manager Relationship Specialty Start Date End Date Ilya Gusman MD [address] [place] [phone] PCP - General 05/14/17 [facility] 09/01/25 documented as of this encounter
--- OUTSIDE RECORDS SUMMARY | 2025-10-06 22:28 | XMS_ITS | Encounter Summary ---
Author Organization [facility] ystem Address [address] [place] [address] Phone Care Team Providers Care Perfect Bind Machine Operator Name Role Phone Ilya Gusman MD Primary Care Provider [phone] Encounter Details Date Type Department Care Team (Late Contact Info) Description 07/12/2019 Scanned Document [facility] - Health Information Department [address] [place] [address] Scan, No Provider Available [address] [place] [address] [place] [address] <No scans attached> Social History Tobacco Use [...] [facility] [address] [place] [phone] Ilya Gusman MD [address] [place] [phone] Christophe Dailey MD [address] [place] [phone] 01/18/2026 1:00 PM EST Office Visit [facility] [address] [place] [address] Porsha Marsh, GEOSCIENCE TECHNICIAN [address] [place] [address] 02/22/2026 11:00 AM EDT Office Visit [facility] [address] [place] [address] [address] [place] [phone] Alonso Bae MD [address] [place] [address] [address] [place] [address] 07/17/2026 2:00 PM EDT Office Visit [facility] - Internal Medicine [address] [place] [phone] Ilya Gusman MD [address] [place] [phone] 07/19/2026 11:40 AM EDT Office Visit [facility] [address] [place] [address] Yesi Perez MD [address] [place] [address] documented as of this encounter Visit Diagnoses [...] documented as of this encounter Care Teams Perfect Bind Machine Operator Relationship Specialty Start Date End Date Ilya Gusman MD [address] [place] [phone] PCP - General 05/14/17 [facility] 09/01/25 documented as of this encounter
--- OUTSIDE RECORDS SUMMARY | 2025-10-06 22:28 | XMS_ITS | Encounter Summary ---
Author Organization [facility] ystem Address [address] [place] [address] Phone Care Team Providers Care Patternmaker Helper Name Role Phone Ilya Gusman MD Primary Care Provider Encounter Details Date Type Department Care Team (Late st Contact Info) Description 04/07/2021 Scanned Document [facility] - Health Information Department [address] [place], [place] [phone] Scan, No Provider Available [address] [place] [address] <No scans attached> Social History Tobacco Use [...] alcohol? Answer Date of Assessment Author 0 04/10/2021 6:13 PM EDT Silvina Ratliff RN * How many standard drinks containing alcohol do you have on a typical day? Answer Date of Assessment Author 0 04/10/2021 6:13 PM EDT Silvina Ratliff RN * How often do you have six or more drinks on one occasion? Answer Date of Assessment Author 0 04/10/2021 6:13 PM EDT Silvina Ratliff RN * Audit-C Score Answer Date of Assessment Author 0 04/10/2021 6:13 PM EDT Silvina Ratliff RN documented as of this encounter Plan of Treatment Upcoming Encounters Date Type Department Care Team (Late st Contact Info) Description 10/10/2025 10:30 AM EST Office Visit [facility] - Internal Medicine [address] [place] [phone] Ilya Gusman MD [address] [place] [phone] Christopeh Dailey MD [address] [place] [phone] 01/18/2026 1:00 PM EST Office Visit [facility] [address] [address] Porsha Marsh, FACTORY ENGINEER 70 [place] [address] 02/22/2026 11:00 AM EDT Office Visit [facility] [address] [place] [address] [address] [place] [phone] Alonso Bae MD [address] [place] [address] [address] [place] [address] 07/17/2026 2:00 PM EDT Office Visit [facility] - Internal Medicine [address] [place] [phone] Ilya Gusman MD [address] [place] [phone] 07/19/2026 11:40 AM EDT Office Visit [facility] [address] [address] Yesi Perez MD 70 [place] [address] documented as of this encounter Visit Diagnoses [...] as of this encounter Care Teams Patternmaker Helper Relationship Specialty Start Date End Date Ilya Gusman MD [address] [place] [phone] PCP - General 05/14/17 [facility] 09/01/25 documented as of this encounter
--- OUTSIDE RECORDS SUMMARY | 2025-10-06 22:28 | XMS_ITS | Encounter Summary ---
Author Organization [facility] ystem Address [address] [place] [address] Phone Care Team Providers Care Senior Adults Director Name Role Phone Ilya Gusman MD Primary Care Provider [phone] Encounter Details Date Type Department Care Team (Late Contact Info) Description 08/09/2019 Procedure Pass [facility] [address] [place] [address] Social History Tobacco Use Types [...] Visit [facility] - Internal Medicine [address] [place] [phone] Ilya Gusman MD [address] [place] [phone] Christophe Dailey MD [address] [place] [phone] 01/18/2026 1:00 PM EST Office Visit [facility] [address] [place] [address] Posrha Marsh, MANAGER INVENTORY MANAGEMENT [address] [place] [address] 02/22/2026 11:00 AM EDT Office Visit [facility] [address] [place] [address] [address] [place] [phone] Alonso Bae MD [address] [place] [address] [address] [place] [address] 07/17/2026 2:00 PM EDT Office Visit [facility] - Internal Medicine [address] [place] [place] [phone] Ilya Gusman MD [address] [place] [phone] 07/19/2026 11:40 AM EDT Office Visit [facility] [address] [place] [address] Yesi Perez MD [address] [place] [address] documented as of this encounter Visit Diagnoses [...] as of this encounter Care Teams Senior Adults Director Relationship Specialty Start Date End Date Ilya Gusman MD [address] [place] [phone] PCP - General 05/14/17 [facility] 09/01/25 documented as of this encounter
--- OUTSIDE RECORDS SUMMARY | 2025-10-06 22:28 | XMS_ITS | Encounter Summary ---
Author Organization [facility] ystem Address [address] [place] [address] Phone Care Team Providers Care Buttonholer Name Role Phone Ilya Gusman MD Primary Care Provider [phone] Encounter Details Date Type Department Care Team (Late st Contact Info) Description 04/24/2021 Scanned Document [facility] - Health Information Department [address] [place], [place] [phone] Scan, No Provider Available [address] [facility] [place] [address] <No scans attached> Social History Tobacco Use [...] Office Visit [facility] - Internal Medicine [address] [place] [phone] Ilya Gusman MD [address] [place] [phone] Christophe Dailey MD [address] [place] [phone] 01/18/2026 1:00 PM EST Office Visit [facility] [address] [place] [address] Porsha Marsh, SURVEY RESEARCH MANAGER [address] [place] [address] 02/22/2026 11:00 AM EDT Office Visit [facility] [address] [place] [address] [address] [place] [phone] Alonso Bae MD [address] [place] [address] [address] [place] [address] 07/17/2026 2:00 PM EDT Office Visit [facility] - Internal Medicine [address] [place] [phone] Ilya Gusman MD [address] [place] [phone] 07/19/2026 11:40 AM EDT Office Visit [facility] [address] [place] [address] Yesi Perez MD [address] [place] [address] documented as of this encounter Visit Diagnoses [...] documented as of this encounter Care Teams Buttonholer Relationship Specialty Start Date End Date Ilya Gusman MD [address] [place] [phone] PCP - General 05/14/17 [facility] 09/01/25 documented as of this encounter
--- OUTSIDE RECORDS SUMMARY | 2025-10-06 22:28 | XMS_ITS | Encounter Summary ---
Author Organization [facility] ystem Address [address] [place] [address] Phone Care Team Providers Care Scrap Crane Operator Name Role Phone Ilya Gusman MD Primary Care Provider [phone] Encounter Details Date Type Department Care Team ([facility] Contact Info) Description 04/02/2024 Orders Only [facility] - Health Information Department [address] [place] [address] Scan, No Provider Available [address] [place] [address] [place] [phone] Social History Tobacco Use Types Packs/Day Years [...] 10:30 AM EST Office Visit [facility] - Internal Medicine [address] [place] [phone] Ilya Gusman MD [address] [place] [phone] Christophe Dailey MD [address] [place] [phone] 01/18/2026 1:00 PM EST Office Visit [facility] [address] [place] [address] Porsha Marsh, AUSTRALIAN RULES FOOTBALLER [address] [place] [address] 02/22/2026 11:00 AM EDT Office Visit [facility] [address] [place] [address] [address] [place] [phone] Alonso Bae MD [address] [place] [address] [address] [place] [address] 07/17/2026 2:00 PM EDT Office Visit [facility] - Internal Medicine [address] [place] [phone] Ilya Gusman MD [address] [place] [phone] 07/19/2026 11:40 AM EDT Office Visit [facility] [address] [place] [address] Yesi Perez MD [address] [place] [address] documented as of this encounter Procedures Procedure [...] documented as of this encounter Care Teams Scrap Crane Operator Relationship Specialty Start Date End Date Ilya Gusman MD [address] [place] [phone] PCP - General 05/14/17 [facility] 09/01/25 documented as of this encounter
--- OUTSIDE RECORDS SUMMARY | 2025-10-06 22:28 | XMS_ITS | Encounter Summary ---
Author Organization [facility]stem Address [address] [place] [address] Phone Care Team Providers Care Java Tech Lead Name Role Phone Ilya Gusman MD Primary Care Provider [phone] Encounter Details Date Type Department Care Team (Late Contact Info) Description 09/24/2019 Scanned Document [facility] - Health Information Department [address] [place] [address] Scan, No Provider Available [address] [place] [address] [place] [address] <No scans attached> Social History Tobacco Use [...] [facility] - Internal Medicine [address] [place] [phone] Ilya Gusman MD [address] [place] [phone] Christophe Dailey MD [address] [place] [phone] 01/18/2026 1:00 PM EST Office Visit [facility] [address] [place] [address] Porsha Marsh, CONDENSER CLEANER [address] [place] [address] 02/22/2026 11:00 AM EDT Office Visit [facility] [address] [place] [address] [address] [place] [phone] Alonso Bae MD [address] [place] [address] [address] [place] [address] 07/17/2026 2:00 PM EDT Office Visit [facility] - Internal Medicine [address] [place] [phone] Ilya Gusman MD [address] [place] [phone] 07/19/2026 11:40 AM EDT Office Visit [facility] [address] [place] [address] Yesi Perez MD [address] [place] [address] documented as of this encounter Visit Diagnoses [...] as of this encounter Care Teams Java Tech Lead Relationship Specialty Start Date End Date Ilya Gusman MD [address] [place] [address] [phone] PCP - General 05/14/17 [facility] 09/01/25 documented as of this encounter
--- OUTSIDE RECORDS SUMMARY | 2025-10-06 22:28 | XMS_ITS | Encounter Summary ---
Author Organization [facility] ystem Address [address] [place] [address] Phone Care Team Providers Care Director Of Business Continuity Name Role Phone Ilya Gusman MD Primary Care Provider [phone] Encounter Details Date Type Department Care Team (Late Contact Info) Description 03/26/2025 Procedure Pass [facility] - MR Imaging [address] [place] [address] Social History Tobacco Use Types [...] Visit [facility] - Internal Medicine [address] [place] [phone] Ilya Gusman MD [address] [place] [phone] Christophe Dailey MD [address] [place] [phone] 01/18/2026 1:00 PM EST Office Visit [facility] [address] [place] [address] Porsha Marsh, SUPPORT TEAM ASSOC [address] [place] [address] 02/22/2026 11:00 AM EDT Office Visit [facility] [address] [place] [address] [address] [place] [phone] Alonso Bae MD [address] [place] [address] 2 [place] [address] 07/17/2026 2:00 PM EDT Office Visit [facility] - Internal Medicine [address] [place] [phone] Ilya Gusman MD [address] [place] [phone] 07/19/2026 11:40 AM EDT Office Visit [address] [address] Yesi Perez MD [address] [place] [address] documented as of this encounter Visit Diagnoses Not on filedocumented in this encounter Additional Health Concerns Assessment Noted Time PHQ-9 Depression Total Score: 6 04/28/20 24 1:53 PM EDT documented as of this encounter Care Teams Director Of Business Continuity Relationship Specialty Start Date End Date Ilya Gusman MD [address] [place] [phone] PCP - General 05/14/17 [facility] 09/01/25 documented as of this encounter
--- OUTSIDE RECORDS SUMMARY | 2025-10-06 22:28 | XMS_ITS | Encounter Summary ---
Author Organization [facility] ystem Address [address] [place] [address] Phone Care Team Providers Care Research Asst Name Role Phone Ilya Gusman MD Primary Care Provider [phone] Encounter Details Date Type Department Care Team (Late Contact Info) Description 03/25/2024 Scanned Document [facility] - Health Information Department [address] [place] [address] Scan, No Provider Available [address] [place] [address] [place] [address] <No scans attached> Social History Tobacco Use [...] Department Care Team ([facility] Contact Info) Description 10/10/2025 10:30 AM EST Office Visit [facility] - Internal Medicine [address] [place] [phone] Ilya Gusman MD [address] [place] [phone] Christophe Dailey MD [address] [place] [address] [phone] 01/18/2026 1:00 PM EST Office Visit [facility] [address] [place] [address] Porsha Marsh, DIRECTOR OF PHILANTHROPY [address] [place] [address] 02/22/2026 11:00 AM EDT Office Visit [facility] [address] [place] [address] [address] [place] [phone] Alonso Bae MD [address] [place] [address] [address] [place] [address] 07/17/2026 2:00 PM EDT Office Visit [facility] - Internal Medicine [address] [place] [phone] Ilya Gusman MD [address] [place] [phone] 07/19/2026 11:40 AM EDT Office Visit [facility] [address] [place] [address] Yesi Perez MD [address] [place] [address] documented as of this encounter Visit Diagnoses Not on filedocumented in this encounter Additional Health Concerns Infection Onset Date Last Indicated Resolved Time C difficile Rule-Out 11/01/2024 11/02/2024 024 9:43 AM EST Assessment Noted Time PHQ-9 Depression Total Score: 9 06/05/20 20 9:52 AM EDT documented as of this encounter Care Teams Research Asst Relationship Specialty Start Date End Date Ilya Gusman MD [address] [place] [phone] PCP - General 05/14/17 [facility] 09/01/25 documented as of this encounter
--- OUTSIDE RECORDS SUMMARY | 2025-10-06 22:28 | XMS_ITS | Encounter Summary ---
Author Organization [facility] ystem Address [address] [place] [address] Phone Care Team Providers Care Equipment Validation Specialist Name Role Phone Ilya Gusman MD Primary Care Provider [phone] Encounter Details Date Type Department Care Team (Late Contact Info) Description 03/02/2019 Scanned Document [facility] - Health Information Department [address] [place] [address] Scan, No Provider Available [address] [place] [address] [place] [address] <No scans attached> Social History Tobacco Use [...] [facility] - Internal Medicine [address] [place] [phone] Ilya Gusman MD [address] [place] [phone] Christophe Dailey MD [address] [place] [phone] 01/18/2026 1:00 PM EST Office Visit [facility] [address] [place] [address] Porsha Marsh, REEL REPAIRER [address] [place] [address] 02/22/2026 11:00 AM EDT Office Visit [facility] [address] [place] [address] [address] [place] [phone] Alonso Bae MD [address] [place] [address] [address] [place] [address] 07/17/2026 2:00 PM EDT Office Visit [facility] - Internal Medicine [address] [place] [phone] Ilya Gusman MD [address] [place] [phone] 07/19/2026 11:40 AM EDT Office Visit [facility] [address] [place] [address] Yesi Perez MD [address] [place] [address] documented as of this encounter Visit Diagnoses [...] documented as of this encounter Care Teams Equipment Validation Specialist Relationship Specialty Start Date End Date Ilya Gusman MD [address] [place] [phone] PCP - General 05/14/17 [facility] 09/01/25 documented as of this encounter
--- OUTSIDE RECORDS SUMMARY | 2025-10-06 22:28 | XMS_ITS | Encounter Summary ---
Author Organization [facility] ystem Address [address] [place] [address] Phone Care Team Providers Care Public Health Policy Analyst Name Role Phone Ilya Gusman MD Primary Care Provider [phone] Encounter Details Date Type Department Care Team (Late st Contact Info) Description 04/25/2021 Orders Only [facility] - Health Information Department [address] [place] [address] Scan, No Provider Available [address] [facility] [place] [address] Social History Tobacco Use Types Packs/Day Years [...] 10:30 AM EST Office Visit [facility] - Internal Medicine [address] [place] [phone] Ilya Gusman MD [address] [place] [phone] Christophe Dailey MD [address] [place] [phone] 01/18/2026 1:00 PM EST Office Visit [facility] [address] [place] [phone] Porsha Marsh, MARILIA [address] [place] [address] 02/22/2026 11:00 AM EDT Office Visit [facility] [address] [place] [address] [address] [place] [phone] Alonso Bae MD [address] [place] [address] [address] [place] [address] 07/17/2026 2:00 PM EDT Office Visit [facility] - Internal Medicine [address] [place] [phone] Ilya Gusman MD [address] [place] [phone] 07/19/2026 11:40 AM EDT Office Visit [facility] [address] [place] [address] Yesi Perez MD [address] [place] [address] documented as of this encounter Procedures Procedure [...] as of this encounter Care Teams Public Health Policy Analyst Relationship Specialty Start Date End Date Ilya Gusman MD [address] [place] [phone] PCP - General 05/14/17 [facility] 09/01/25 documented as of this encounter
--- OUTSIDE RECORDS SUMMARY | 2025-10-06 22:28 | XMS_ITS | Encounter Summary ---
Author Organization [facility] ystem Address [address] [place] [address] Phone Care Team Providers Care Pedicab Driver Name Role Phone Ilya Gusman MD Primary Care Provider [phone] Encounter Details Date Type Department Care Team (Late Contact Info) Description 03/26/2025 Procedure Pass [facility] - MR Imaging [address] [place] [address] Social History Tobacco Use Types [...] [facility] - Internal Medicine [address] [place] [phone] Ilya Gusman MD [address] [place] [phone] Christophe Dailey MD [address] [place] [phone] 01/18/2026 1:00 PM EST Office Visit [facility] [address] [place] [phone] Porsha Marsh, WEATHER REPORTER 70 [place] [address] 02/22/2026 11:00 AM EDT Office Visit [facility] [address] [place] [address] [address] [place] [phone] Alonso Bae MD [address] [place] [address] 2 [place] [address] 07/17/2026 2:00 PM EDT Office Visit [facility] - Internal Medicine [address] [place] [phone] Ilya Gusman MD [address] [place] [phone] 07/19/2026 11:40 AM EDT Office Visit [address] [address] Yesi Perez MD [address] [place] [address] documented as of this encounter Visit Diagnoses Not on filedocumented in this encounter Additional Health Concerns Assessment Noted Time PHQ-9 Depression Total Score: 6 04/28/20 24 1:53 PM EDT documented as of this encounter Care Teams Pedicab Driver Relationship Specialty Start Date End Date Ilya Gusman MD [address] [place] [phone] PCP - General 05/14/17 [facility] 09/01/25 documented as of this encounter
--- OUTSIDE RECORDS SUMMARY | 2025-10-06 22:28 | XMS_ITS | Encounter Summary ---
Author Organization [facility] Address [address] [place] [address] Phone Care Team Providers Care Roll Setter Name Role Phone Ilya Gusman MD Primary Care Provider [phone] Reason for Visit * Reason Onset Date Comments Med Refill 05/26/2019 Encounter Details Date Type Department Care Team (Late st Contact Info) Description 05/26/2019 Refill [facility] - Internal Medicine [address] [place] [phone] Christophe Dailey MD [address] [place] [phone] Med Refill Social History Tobacco Use [...] notes below Refill Oxycodone 15mg #42 Pharmacy: [facility] DATE OF LAST REFILL? 05/12/19 FREQUENCY OF REFILLS? 14 days DATE REFILL IS DUE? 05/26/19 IS THIS AN EARLY REFILL? No CONTROLLED SUBSTANCE AGREEMENT ON FILE? Yes Last UDS: On 12/10/18. Negative for all On 03/01/19: Toxicology Screen [facility]: Negative for all DATE OF LAST OFFICE VISIT: 05/12/19 DATE OF NEXT OFFICE VISIT: Future Appointments Date Time Provider Department Center 06/01/2019 9:15 AM Maria De Jesus Leigh MD [facility] 07/16/2019 9:20 AM Ilya Gusman MD LNG IM LNG RECEPTIONIST SECRETARY reviewed on 05/26/2019 by Ian BARNETT and no red flags were noted Kristina Schneider fly raiser lockstitch Refill Team [facility] documented in this encounter Plan of Treatment Upcoming Encounters Date Type Department Care Team (Late st Contact Info) Description 10/10/2025 10:30 AM EST Office Visit [facility] - Internal Medicine [address] [place] [phone] Ilya Gusman MD [address] [place] [phone] Christophe Dailey MD [address] [place] [phone] 01/18/2026 1:00 PM EST Office Visit [facility] [address] [address] Porsha Marsh CNP 70 [place] [address] 02/22/2026 11:00 AM EDT Office Visit [facility] [address] [place] [address] [address] [place] [phone] Alonso Bae MD [address] [place] [address] [address] [place] [address] 07/17/2026 2:00 PM EDT Office Visit [facility] - Internal Medicine [address] [place] [phone] Ilya Gusman MD [address] [place] [phone] 07/19/2026 11:40 AM EDT Office Visit [facility] [address] [address] Yesi Perez MD 70 [place] [address] documented as of this encounter Visit Diagnoses [...] as of this encounter Care Teams Roll Setter Relationship Specialty Start Date End Date Ilya Gusman MD [address] [place] [phone] PCP - General 05/14/17 [facility] 09/01/25 documented as of this encounter
--- OUTSIDE RECORDS SUMMARY | 2025-10-06 22:28 | XMS_ITS | Encounter Summary ---
Author Organization [facility] ystem Address [address] [place] [address] Phone Care Team Providers Care Echo Tech Name Role Phone Ilya Gusman MD Primary Care Provider [phone] Encounter Details Date Type Department Care Team (Late st Contact Info) Description 05/09/2025 Scanned Document [facility] - Health Information Department [address] [place], [place] [phone] Scan, No Provider Available [address] [place] [address] <No scans attached> Social History Tobacco Use [...] [facility] - Internal Medicine [address] [place] [phone] Ilya Gusman MD [address] [place] [phone] Christophe Dailey MD [address] [place] [phone] 01/18/2026 1:00 PM EST Office Visit [facility] [address] [address] Porsha Marsh, SENIOR OFFICE ASSISTANT 70 [place] [address] 02/22/2026 11:00 AM EDT Office Visit [facility] [address] [place] [address] [address] [place] [phone] Alonso Bae MD [address] [place] [address] [address] [place] [address] 07/17/2026 2:00 PM EDT Office Visit [facility] - Internal Medicine [address] [place] [phone] Ilya Gusman MD [address] [place] [phone] 07/19/2026 11:40 AM EDT Office Visit [facility] [address] [place] [address] Yesi Perez MD 70 [place] [address] documented as of this encounter Visit Diagnoses Not on filedocumented in this encounter Additional Health Concerns Assessment Noted Time PHQ-9 Depression Total Score: 6 04/28/20 24 1:53 PM EDT documented as of this encounter Care Teams Echo Tech Relationship Specialty Start Date End Date Ilya Gusman MD [address] [place] [address] [phone] PCP - General 05/14/17 [facility] 09/01/25 documented as of this encounter
--- OUTSIDE RECORDS SUMMARY | 2025-10-06 22:28 | XMS_ITS | Encounter Summary ---
Author Organization [facility] ystem Address [address] [place] [address] Phone Care Team Providers Care Advanced Analytics Associate Name Role Phone Ilya Gusman MD Primary Care Provider [phone] Encounter Details Date Type Department Care Team (Late Contact Info) Description 03/11/2019 Scanned Document [facility] - Health Information Department [address] [place] [address] Scan, No Provider Available [address] [place] [address] [place] [address] <No scans attached> Social History Tobacco Use [...] Visit [facility] - Internal Medicine [address] [place] [phone] Ilya Gusman MD [address] [place] [phone] Christophe Dailey MD [address] [place] [phone] 01/18/2026 1:00 PM EST Office Visit [facility] [address] [place] [address] Porsha Marsh, DIGITAL CONTENT PRODUCER [address] [place] [address] 02/22/2026 11:00 AM EDT Office Visit [facility] [address] [place] [address] [address] [place] [phone] Alonso Bae MD [address] [place] [address] [address] [place] [address] 07/17/2026 2:00 PM EDT Office Visit [facility] - Internal Medicine [address] [place] [phone] Ilya Gusman MD [address] [place] [phone] 07/19/2026 11:40 AM EDT Office Visit [facility] [address] [place] [address] Yesi Perez MD [address] [place] [address] documented as of this encounter Visit Diagnoses [...] documented as of this encounter Care Teams Advanced Analytics Associate Relationship Specialty Start Date End Date Ilya Gusman MD [address] [place] [phone] PCP - General 05/14/17 [facility] 09/01/25 documented as of this encounter
--- OUTSIDE RECORDS SUMMARY | 2025-10-06 22:28 | XMS_ITS | Encounter Summary ---
Author Organization [facility] ystem Address [address] [place] [address] Phone Care Team Providers Care Precision Devices Inspector/Tester Name Role Phone Ilya Gusman MD Primary Care Provider [phone] Encounter Details Date Type Department Care Team (Late Contact Info) Description 04/11/2024 Scanned Document [facility] - Health Information Department [address] [place] [address] Scan, No Provider Available [address] [place] [address] [place] [address] <No scans attached> Social History Tobacco Use [...] Encounters Date Type Department Care Team ([facility] Contact Info) Description 10/10/2025 10:30 AM EST Office Visit [facility] - Internal Medicine [address] [place] [phone] Ilya Gusman MD [address] [place] [phone] Christophe Dailey MD [address] [place] [address] [phone] 01/18/2026 1:00 PM EST Office Visit [facility] [address] [place] [address] Porsha Marsh, UPWARD BOUND DIRECTOR [address] [place] [address] 02/22/2026 11:00 AM EDT Office Visit [facility] [address] [place] [address] [address] [place] [phone] Alonso Bae MD [address] [place] [address] [address] [place] [address] 07/17/2026 2:00 PM EDT Office Visit [facility] - Internal Medicine [address] [place] [phone] Ilya Gusman MD [address] [place] [phone] 07/19/2026 11:40 AM EDT Office Visit [facility] [address] [place] [address] Yesi Perez MD [address] [place] [address] documented as of this encounter Visit Diagnoses Not on filedocumented in this encounter Additional Health Concerns Infection Onset Date Last Indicated Resolved Time C difficile Rule-Out 11/01/2024 11/02/2024 024 9:43 AM EST Assessment Noted Time PHQ-9 Depression Total Score: 9 06/05/20 20 9:52 AM EDT documented as of this encounter Care Teams Precision Devices Inspector/Tester Relationship Specialty Start Date End Date Ilya Gusman MD [address] [place] [address] [phone] PCP - General 05/14/17 [facility] 09/01/25 documented as of this encounter
--- OUTSIDE RECORDS SUMMARY | 2025-10-06 22:28 | XMS_ITS | Encounter Summary ---
Author Organization [facility] ystem Address [address] [place] [address] Phone Care Team Providers Care Rehabilitation Services Director Name Role Phone Ilya Gusman MD Primary Care Provider [phone] Encounter Details Date Type Department Care Team (Late st Contact Info) Description 05/23/2021 Scanned Document [facility] - Health Information Department [address] [place], [place] [phone] Scan, No Provider Available [address] [facility] [place] [address] <No scans attached> Social History Tobacco Use [...] alcohol? Answer Date of Assessment Author 0 05/25/2021 10:35 PM EDT Kaiden Polk RN * How many standard drinks containing alcohol do you have on a typical day? Answer Date of Assessment Author 0 05/25/2021 10:35 PM EDT Kaiden Polk RN * How often do you have six or more drinks on one occasion? Answer Date of Assessment Author 0 05/25/2021 10:35 PM EDT Kaiden Polk RN * Audit-C Score Answer Date of Assessment Author 0 05/25/2021 10:35 PM EDT Kaiden Polk RN documented as of this encounter Plan of Treatment Upcoming Encounters Date Type Department Care Team (Late st Contact Info) Description 10/10/2025 10:30 AM EST Office Visit [facility] - Internal Medicine [address] [place] [phone] Ilya Gumsan MD [address] [place] [phone] Christophe Dailey MD [address] [place] [phone] 01/18/2026 1:00 PM EST Office Visit [facility] 70 [facility] 1 [place] [address] Porsha Marsh, MARILIA 70 [place] [address] 02/22/2026 11:00 AM EDT Office Visit [facility] [address] [place] [address] [address] [place] [phone] Alonso Bae MD [address] [place] [address] [address] [place] [address] 07/17/2026 2:00 PM EDT Office Visit [facility] - Internal Medicine 143 [place] [phone] Ilya Gusman MD 143 [place] [phone] 07/19/2026 11:40 AM EDT Office Visit [facility] [address] [address] Yesi Perez MD 70 [place] [address] documented as of this encounter Visit Diagnoses [...] documented as of this encounter Care Teams Rehabilitation Services Director Relationship Specialty Start Date End Date Ilya Gusman MD [address] [place] [phone] PCP - General 05/14/17 [facility] 09/01/25 documented as of this encounter
--- OUTSIDE RECORDS SUMMARY | 2025-10-06 22:28 | XMS_ITS | Encounter Summary ---
Author Organization [facility] Address [address] [place] [address] Phone Care Team Providers Care Sterile Instrument Technician Name Role Phone Ilya Gusman MD Primary Care Provider [phone] Reason for Visit * Reason Onset Date Comments Med Refill 07/06/2019 Encounter Details Date Type Department Care Team (Late st Contact Info) Description 07/06/2019 Refill [facility] - Internal Medicine [address] [place] [phone] Ilya Gusman MD [address] [place] [phone] Med Refill Social History Tobacco Use [...] on 06/10/19 is waiting for Pt to pick remover. She does not know why it is not in [facility]. Pt does not need Rx at this time. Also, Oxycodone prescription requests will now go to Dr Daiely for authorization. Thanks for clarifying for The Refill Team going forward. Kristina Schneider [facility] Refill Team [facility] * Telephone Encounter - Ilya Gusman MD - 07/07/2019 11:40 AM EDT Typically reills go to PCP (me) unless Specialist deems otherwise, as in Dr. Dailey's 05/12 OV note: - will increase the oxycodone to 15 mg tid prn - counseled on potential risks and side effects - supervisor filtration reviewed - he will update me as [...] review [facility] below. Oxycodone 15mg #42 Pharmacy: [facility] DATE OF LAST REFILL? 06/10/19.. [...] [facility] below. Med not pending Kristina Schneider paste mixer Refill Team [facility] documented in this encounter Plan of Treatment Upcoming Encounters Date Type Department Care Team (Late st Contact Info) Description 10/10/2025 10:30 AM EST Office Visit [facility] - Internal Medicine [address] [place] [phone] Ilya Gusman MD [address] [place] [phone] Christophe Dailey MD [address] [place] [phone] 01/18/2026 1:00 PM EST Office Visit [facility] 70 [facility] 1 [place] [address] Porsha Marsh, FINISHER OPERATOR 70 [place] [address] 02/22/2026 11:00 AM EDT Office Visit [facility] [address] [place] [phone] Alonso Bae MD [facility] [address] [place] [address] 07/17/2026 2:00 PM EDT Office Visit [facility] - Internal Medicine [address] [place] [phone] Ilya Gusman MD [address] [place] [phone] 07/19/2026 11:40 AM EDT Office Visit [facility] [address] [address] Yesi Perez MD 70 [place] [address] documented as of this encounter Visit Diagnoses [...] documented as of this encounter Care Teams Sterile Instrument Technician Relationship Specialty Start Date End Date Ilya Gusman MD [address] [place] [address] [phone] PCP - General 05/14/17 [facility] 09/01/25 documented as of this encounter
--- OUTSIDE RECORDS SUMMARY | 2025-10-06 22:28 | XMS_ITS | Encounter Summary ---
Author Organization [facility] Address [address] [place] [address] Phone Care Team Providers Care Motor Analyst Name Role Phone Ilya Gusman MD Primary Care Provider [phone] Reason for Visit * Reason Onset Date Comments Med Refill 09/27/2019 Encounter Details Date Type Department Care Team (Late st Contact Info) Description 09/27/2019 Refill [facility] - Internal Medicine [address] [place] [phone] Christophe Dailey MD [address] [place] [phone] Med Refill Social History Tobacco Use [...] AM Alejandro Lion MD NEV NEUROSP NEV FIRST AID ATTENDANT reviewed on 09/28/2019 by Ian SORIA and no red flags were noted Ian Soria/[place] Refill Team, Lo documented in this encounter Plan of Treatment Upcoming Encounters Date Type Department Care Team (Late st Contact Info) Description 10/10/2025 10:30 AM EST Office Visit [facility] - Internal Medicine [address] [place] [phone] Ilya Gusman MD [address] [place] [address] [phone] Christophe Dailey MD [address] [place] [phone] 01/18/2026 1:00 PM EST Office Visit [facility] [address] [address] Porsha Marsh, COIN TELLER 70 [place] [address] 02/22/2026 11:00 AM EDT Office Visit [facility] [address] [facility] [address] [place] [phone] Alonso Bae MD [address] [facility] [address] [place] [address] 07/17/2026 2:00 PM EDT Office Visit [facility] - Internal Medicine 143 [place] [phone] Ilya Gusman MD [address] [place] [phone] 07/19/2026 11:40 AM EDT Office Visit [facility] 70 [facility] 1 [place] [address] Yesi Perez MD 70 [place] [address] documented as of this encounter Visit Diagnoses [...] as of this encounter Care Teams Motor Analyst Relationship Specialty Start Date End Date Ilya Gusman MD [address] [place] [phone] PCP - General 05/14/17 [facility] 09/01/25 documented as of this encounter
--- OUTSIDE RECORDS SUMMARY | 2025-10-06 22:28 | XMS_ITS | Encounter Summary ---
Author Organization [facility] ystem Address [address] [place] [address] Phone Care Team Providers Care Master Scheduler Name Role Phone Ilya Gusman MD Primary Care Provider [phone] Encounter Details Date Type Department Care Team ([facility] Contact Info) Description 04/14/2024 Orders Only [facility] - Health Information Department [address] [place] [phone] Scan, No Provider Available [address] [place] [address] [address] [place] [phone] Social History Tobacco Use Types Packs/Day Years [...] Team ([facility] Contact Info) Description 10/10/2025 10:30 AM EST Office Visit [facility] - Internal Medicine [address] [place] [phone] Ilya Gusman MD [address] [place] [phone] Christophe Dailey MD [address] [place] [phone] 01/18/2026 1:00 PM EST Office Visit [facility] [address] [place] [address] Porsha Marsh, DANCE ARTIST [address] [place] [address] 02/22/2026 11:00 AM EDT Office Visit [facility] [address] [place] [address] [address] [place] [phone] Alonso Bae MD [address] [place] [address] [address] [place] [address] 07/17/2026 2:00 PM EDT Office Visit [facility] - Internal Medicine [address] [place] [phone] Ilya Gusman MD [address] [place] [phone] 07/19/2026 11:40 AM EDT Office Visit [facility] [address] [place] [address] Yesi Perez MD [address] [place] [address] documented as of this encounter Procedures Procedure [...] documented as of this encounter Care Teams Master Scheduler Relationship Specialty Start Date End Date Ilya Gusmna MD [address] [place] [phone] PCP - General 05/14/17 [facility] 09/01/25 documented as of this encounter
--- OUTSIDE RECORDS SUMMARY | 2025-10-06 22:28 | XMS_ITS | Encounter Summary ---
Author Organization [facility] ystem Address [address] [place] [address] Phone Care Team Providers Care Papier Mache' Molder Name Role Phone Ilya Gusman MD Primary Care Provider [phone] Encounter Details Date Type Department Care Team (Late Contact Info) Description 04/12/2024 Scanned Document [facility] - Health Information Department [address] [place] [phone] Scan, No Provider Available [address] [place] [address] [place] [address] <No scans attached> Social History Tobacco Use [...] ([facility] Contact Info) Description 10/10/2025 10:30 AM EST Office Visit [facility] - Internal Medicine [address] [place] [phone] Ilya Gusman MD [address] [place] [phone] Christophe Dailey MD [address] [place] [address] [phone] 01/18/2026 1:00 PM EST Office Visit [facility] [address] [place] [phone] Porsha Marsh, ORE FEEDER [address] [place] [address] 02/22/2026 11:00 AM EDT Office Visit [facility] [address] [place] [address] [address] [place] [phone] Alonso Bae MD [address] [place] [address] [address] [place] [address] 07/17/2026 2:00 PM EDT Office Visit [facility] - Internal Medicine [address] [place] [phone] Ilya Gusman MD [address] [place] [phone] 07/19/2026 11:40 AM EDT Office Visit [facility] [address] [place] [address] Yesi Perez MD [address] [place] [address] documented as of this encounter Visit Diagnoses Not on filedocumented in this encounter Additional Health Concerns Infection Onset Date Last Indicated Resolved Time C difficile Rule-Out 11/01/2024 11/02/2024 024 9:43 AM EST Assessment Noted Time PHQ-9 Depression Total Score: 9 06/05/20 20 9:52 AM EDT documented as of this encounter Care Teams Papier Mache' Molder Relationship Specialty Start Date End Date Ilya Gusman MD [address] [place] [phone] PCP - General 05/14/17 [facility] 09/01/25 documented as of this encounter
--- OUTSIDE RECORDS SUMMARY | 2025-10-06 22:28 | XMS_ITS | Encounter Summary ---
Author Organization [facility] ystem Address [address] [place] [address] Phone Care Team Providers Care Armature Inspector Name Role Phone Ilya Gusman MD Primary Care Provider [phone] Encounter Details Date Type Department Care Team (Late Contact Info) Description 07/07/2019 Scanned Document [facility] - Health Information Department [address] [place] [address] Scan, No Provider Available [address] [place] [address] [place] [address] <No scans attached> Social History Tobacco Use [...] 10/10/2025 10:30 AM EST Office Visit [facility] - Internal Medicine [address] [place] [phone] Ilya Gusman MD [address] [place] [phone] Christophe Dailey MD [address] [place] [phone] 01/18/2026 1:00 PM EST Office Visit [facility] [address] [place] [address] Porsha Marsh, SHOE LACER [address] [place] [address] 02/22/2026 11:00 AM EDT Office Visit [facility] [address] [place] [address] [address] [place] [phone] Alonso Bae MD [address] [place] [address] [address] [place] [address] 07/17/2026 2:00 PM EDT Office Visit [facility] - Internal Medicine [address] [place] [phone] Ilya Gusman MD [address] [place] [phone] 07/19/2026 11:40 AM EDT Office Visit [facility] [address] [place] [address] Yesi Perez MD [address] [place] [address] documented as of this encounter Visit Diagnoses [...] as of this encounter Care Teams Armature Inspector Relationship Specialty Start Date End Date Ilya Gusman MD [address] [place] [phone] PCP - General 05/14/17 [facility] 09/01/25 documented as of this encounter
--- OUTSIDE RECORDS SUMMARY | 2025-10-06 22:28 | XMS_ITS | Encounter Summary ---
Author Organization [facility] ystem Address [address] [place] [address] Phone Care Team Providers Care Salvage Engineering Technician Name Role Phone Ilya Gusman MD Primary Care Provider [phone] Encounter Details Date Type Department Care Team (Late st Contact Info) Description 04/18/2021 Scanned Document [facility] - Health Information Department [address] [place], [place] [phone] Scan, No Provider Available [address] [facility] [place] [address] <No scans attached> Social History Tobacco Use [...] 10:30 AM EST Office Visit [facility] - Internal Medicine [address] [place] [phone] Ilya Gusman MD [address] [place] [phone] Christophe Dailey MD [address] [place] [phone] 01/18/2026 1:00 PM EST Office Visit [facility] [address] [place] [address] Porsha Marsh, COUNSELING PSYCHOLOGIST [address] [place] [address] 02/22/2026 11:00 AM EDT Office Visit [facility] [address] [place] [address] [address] [place] [phone] Alonso Bae MD [address] [place] [address] [address] [place] [address] 07/17/2026 2:00 PM EDT Office Visit [facility] - Internal Medicine [address] [place] [phone] Ilya Gusman MD [address] [place] [phone] 07/19/2026 11:40 AM EDT Office Visit [facility] [address] [place] [address] Yesi Perez MD [address] [place] [address] documented as of this encounter Visit Diagnoses [...] documented as of this encounter Care Teams Salvage Engineering Technician Relationship Specialty Start Date End Date Ilya Gusman MD [address] [place] [phone] PCP - General 05/14/17 [facility] 09/01/25 documented as of this encounter
--- OUTSIDE RECORDS SUMMARY | 2025-10-06 22:28 | XMS_ITS | Encounter Summary ---
Author Organization [facility] Address [address] [place] [address] Phone Care Team Providers Care Eye Care Professional Name Role Phone Ilya Gusman MD Primary Care Provider [phone] Encounter Details Date Type Department Care Team (Late Contact Info) Description 04/15/2024 Ancillary Orders [facility] - Central Scheduling [address] [place] [phone] Yesi Perez MD [address] [place] [address] Atrial fibrillation, unspecified type (CMS/HCC) (Primary Dx) [...] 10:30 AM EST Office Visit [facility] - Internal Medicine [address] [place] [phone] Ilya Gusman MD [address] [place] [phone] Christophe Dailey MD [address] [place] [phone] 01/18/2026 1:00 PM EST Office Visit [facility] [address] [place] [address] Porsha Marsh, MARILIA [address] [place] [address] 02/22/2026 11:00 AM EDT Office Visit [facility] [address] [place] [address] [address] [place] [phone] Alonso Bae MD [address] [place] [address] [address] [place] [address] 07/17/2026 2:00 PM EDT Office Visit [facility] - Internal Medicine [address] [place] [phone] Ilya Gusman MD [address] [place] [phone] 07/19/2026 11:40 AM EDT Office Visit [facility] [address] [place] [address] Yesi Perez MD [address] [place] [address] documented as of this encounter Visit Diagnoses Diagnosis Atrial fibrillation, unspecified type (CMS/HCC)- Primary documented in this encounter Additional Health Concerns Infection Onset Date Last Indicated Resolved Time C difficile Rule-Out 11/01/2024 11/02/2024 024 9:43 AM EST Assessment Noted Time PHQ-9 Depression Total Score: 9 06/05/20 20 9:52 AM EDT documented as of this encounter Care Teams Eye Care Professional Relationship Specialty Start Date End Date Ilya Gusman MD [address] [place] [phone] PCP - General 05/14/17 [facility] 09/01/25 documented as of this encounter
--- OUTSIDE RECORDS SUMMARY | 2025-10-06 22:28 | XMS_ITS | Encounter Summary ---
Author Organization [facility] ystem Address [address] [place] [address] Phone Care Team Providers Care Teletypesetter Name Role Phone Ilya Gusman MD Primary Care Provider [phone] Encounter Details Date Type Department Care Team (Late Contact Info) Description 07/08/2019 Scanned Document [facility] - Health Information Department [address] [place] [address] Scan, No Provider Available [address] [place] [address] [facility] [place] [address] <No scans attached> Social History Tobacco Use [...] [facility] - Internal Medicine [address] [place] [phone] Ilya Gusman MD [address] [place] [phone] Christophe Dailey MD [address] [place] [phone] 01/18/2026 1:00 PM EST Office Visit [facility] [address] [place] [address] Porsha Marsh, GRATING MACHINE OPERATOR [address] [place] [address] 02/22/2026 11:00 AM EDT Office Visit [facility] [address] [place] [address] [address] [place] [phone] Alonso Bae MD [address] [place] [address] [address] [place] [address] 07/17/2026 2:00 PM EDT Office Visit [facility] - Internal Medicine [address] [place] [phone] Ilya Gusman MD [address] [place] [phone] 07/19/2026 11:40 AM EDT Office Visit [facility] [address] [place] [address] Yesi Perez MD [address] [place] [address] 370[address] documented as of this encounter Visit Diagnoses [...] documented as of this encounter Care Teams Teletypesetter Relationship Specialty Start Date End Date Ilya Gusman MD [address] [place] [phone] PCP - General 05/14/17 [facility] 09/01/25 documented as of this encounter
--- OUTSIDE RECORDS SUMMARY | 2025-10-06 22:28 | XMS_ITS | Encounter Summary ---
Author Organization [facility] ystem Address [address] [place] [address] Phone Care Team Providers Care Sort Manager Name Role Phone Ilya Gusman MD Primary Care Provider [phone] Encounter Details Date Type Department Care Team (Late st Contact Info) Description 08/04/2019 Procedure Pass [facility] - MR Imaging [address] [place] [address] Social History Tobacco Use Types [...] 3:15 AM EDT documented in this encounter Functional Status * How often do you have a drink containing alcohol? Answer Date of Assessment Author 0 08/04/2019 3:56 PM EDT Sam Baumann am, RN * How many standard drinks containing alcohol do you have on a typical day? Answer Date of Assessment Author 0 08/04/2019 3:56 PM EDT Sam Baumann am, RN * How often do you have six or more drinks on one occasion? Answer Date of Assessment Author 0 08/04/2019 3:56 PM EDT Sam Baumann am RN * Audit-C Score Answer Date of Assessment Author 0 08/04/2019 3:56 PM EDT Sam Baumann am RN documented as of this encounter Plan of Treatment Upcoming Encounters Date Type Department Care Team (Late st Contact Info) Description 10/10/2025 10:30 AM EST Office Visit [facility] - Internal Medicine [address] [place] [phone] Ilya Gusman MD [address] [place] [phone] Christophe Dailey MD [address] [place] [phone] 01/18/2026 1:00 PM EST Office Visit [facility] 70 [facility] 1 [place] [address] Porsha Marsh, MARILIA [address] [place] [address] 02/22/2026 11:00 AM EDT Office Visit [facility] [address] [place] [address] [address] [place] [phone] Alonso Bae MD [address] [place] [address] [address] [place] [address] 07/17/2026 2:00 PM EDT Office Visit [facility] - Internal Medicine [address] [place] [phone] Ilya Gusman MD [address] [place] [phone] 07/19/2026 11:40 AM EDT Office Visit [facility] [address] [address] Yesi Perez MD 70 [place] [address] documented as of this encounter Visit Diagnoses [...] documented as of this encounter Care Teams Sort Manager Relationship Specialty Start Date End Date Ilya Gusman MD [address] [place] [phone] PCP - General 05/14/17 [facility] 09/01/25 documented as of this encounter
--- OUTSIDE RECORDS SUMMARY | 2025-10-06 22:28 | XMS_ITS | Encounter Summary ---
Author Organization [facility] ystem Address [address] [place] [address] Phone Care Team Providers Care Academic Manager Name Role Phone Ilya Gusman MD Primary Care Provider [phone] Encounter Details Date Type Department Care Team (Late Contact Info) Description 04/14/2024 Scanned Document [facility] - Health Information Department [address] [place] [address] Scan, No Provider Available [address] [place] [address] [place] [address] <No scans attached> Social History Tobacco Use [...] 10/10/2025 10:30 AM EST Office Visit [facility] - Internal Medicine [address] [place] [phone] Ilya Gusman MD [address] [place] [phone] Christophe Dailey MD [address] [place] [address] [phone] 01/18/2026 1:00 PM EST Office Visit [facility] [address] [place] [address] Porsha Marsh, CEMENT FINISHER HELPER [address] [place] [address] 02/22/2026 11:00 AM EDT Office Visit [facility] [address] [place] [address] [address] [place] [phone] Alonso Bae MD [address] [place] [address] [address] [place] [address] 07/17/2026 2:00 PM EDT Office Visit [facility] - Internal Medicine [address] [place] [phone] Ilya Gusman MD [address] [place] [phone] 07/19/2026 11:40 AM EDT Office Visit [facility] [address] [place] [address] Yesi Perez MD [address] [place] [address] documented as of this encounter Visit Diagnoses Not on filedocumented in this encounter Additional Health Concerns Infection Onset Date Last Indicated Resolved Time C difficile Rule-Out 11/01/2024 11/02/2024 024 9:43 AM EST Assessment Noted Time PHQ-9 Depression Total Score: 9 06/05/20 20 9:52 AM EDT documented as of this encounter Care Teams Academic Manager Relationship Specialty Start Date End Date Ilya Gusman MD [address] [place] [phone] PCP - General 05/14/17 [facility] 09/01/25 documented as of this encounter
--- OUTSIDE RECORDS SUMMARY | 2025-10-06 22:28 | XMS_ITS | Encounter Summary ---
Author Organization [facility] Address [address] [place] [address] Phone Care Team Providers Care Fourdrinier Tender Name Role Phone Ilya Gusman MD Primary Care Provider [phone] Reason for Visit * Reason Onset Date Comments Med Refill 05/19/2025 Encounter Details Date Type Department Care Team (Late Contact Info) Description 05/19/2025 Refill [facility] - Internal Medicine [address] [place] [phone] Christophe Dailey MD [address] [place] [phone] Med Refill Social History Tobacco Use [...] as of this encounter Functional Status * 4. Little Interest or Pleasure in Doing Things Answer Date of Assessment Author 1 05/20/2025 9:49 AM EDT [email or web address] * 5. Feeling Down, Depressed, or Hopeless Answer Date of Assessment Author 1 05/20/2025 9:49 AM EDT [place] [email or web address] * 7. Feeling Tired or Having Little Energy Answer Date of Assessment Author 3 05/20/2025 9:49 AM EDT [place] [place] [email or web address] * 8. Poor Appetite or Overeating Answer Date of Assessment Author 3 05/20/2025 9:49 AM EDT [place] [place] [email or web address] * 9. Feeling Bad About Yourself - or That You are a Failure or Have Let Yourself or Your Family Down Answer Date of Assessment Author 1 05/20/2025 9:49 AM EDT [place] [place] [place] * 10. Trouble Concentrating on Things, Such as Reading the Newspaper or Watching Television Answer Date of Assessment Author 0 05/20/2025 9:49 AM EDT [place] [place] [email or web address] * 11. Moving or Speaking so Slowly That Other People Could Have Noticed, or the Opposite - Being so Fidgety or Restless That You Have Been Moving Around a lot More Than Usual Answer Date of Assessment Author 2 05/20/2025 9:49 AM EDT [place] [address] [email or web address] * 12. Thoughts That You Would be Better off , or of Hurting Yourself in Some Way Answer Date of Assessment Author 0 05/20/2025 9:49 AM EDT [place] [address] [place] documented as of this encounter Miscellaneous Notes [...] 05/19/2025 4:49 PM EDT Dilaudid 4mg Pharmacy: [facility] DATE OF LAST REFILL? 05/06/25 FREQUENCY [...] Wey 08/24/2025 11:00 AM Alonso Bae MD [facility] WEY GLOVE MACHINE OPERATOR reviewed on 05/19/2025 by Ian Muñoz and no red flags were noted Ian Muoñz Refill Team documented in this encounter Plan of Treatment Upcoming Encounters Date Type Department Care Team (Late st Contact Info) Description 10/10/2025 10:30 AM EST Office Visit [facility] - Internal Medicine [address] [place] [phone] Ilya Gusman MD [address] [place] [phone] Christophe Dailey MD [address] [place] [phone] 01/18/2026 1:00 PM EST Office Visit [facility] [address] [place] [address] Porsha Marsh, BLAST FURNACE OPERATOR [address] [place] [address] 02/22/2026 11:00 AM EDT Office Visit [facility] [address] [place] [address] [address] [place] [phone] Alonso Bae MD [address] [place] [address] [address] [place] [address] 07/17/2026 2:00 PM EDT Office Visit [facility] - Internal Medicine [address] [place] [phone] Ilya Gusman MD [address] [place] [phone] 07/19/2026 11:40 AM EDT Office Visit [facility] [address] [place] [address] Yesi Perez MD [address] [place] [address] documented as of this encounter Visit Diagnoses Diagnosis Chronic low back pain, unspecified back pain laterality, unspecified whether sciatica present- Primary Chronic pain syndrome documented in this encounter Additional Health Concerns Assessment Noted Time PHQ-9 Depression Total Score: 6 04/28/20 24 1:53 PM EDT documented as of this encounter Care Teams Fourdrinier Tender Relationship Specialty Start Date End Date Ilya Gusman MD [address] [place] [phone] PCP - General 05/14/17 [facility] 09/01/25 documented as of this encounter
--- OUTSIDE RECORDS SUMMARY | 2025-10-06 22:28 | XMS_ITS | Encounter Summary ---
Author Organization [facility] Address [address] [place] [address] Phone Care Team Providers Care Deputy Brand Inspector Name Role Phone Ilya Gusman MD Primary Care Provider [phone] Reason for Visit * Reason Onset Date Comments Med Refill 02/23/2025 Encounter Details Date Type Department Care Team (Late st Contact Info) Description 02/23/2025 Refill [facility] - Internal Medicine [address] [place] [phone] Christophe Dailey MD [address] [place] [phone] Med Refill Social History Tobacco Use [...] 02/23/2025 3:05 PM EDT Dilaudid 4mg Pharmacy: [facility] DATE OF LAST REFILL? 02/12/24 FREQUENCY OF [...] AM Alonso Bae MD WEY [facility] PAOLA CAREER REPRESENTATIVE reviewed on 02/23/2025 by Ian Muñoz and no red flags were noted Ian Muñoz Refill Team documented in this encounter Plan of Treatment Upcoming Encounters Date Type Department Care Team (Late st Contact Info) Description 10/10/2025 10:30 AM EST Office Visit [facility] - Internal Medicine [address] [place] [phone] Ilya Gusman MD [address] [place] [address] [phone] Christophe Dailey MD [address] [place] [address] [phone] 01/18/2026 1:00 PM EST Office Visit [facility] [address] [facility] 1 [place] [address] Porsha Marsh, MARILIA [address] [place] [address] 02/22/2026 11:00 AM EDT Office Visit [facility] [address] [place] [address] [address] [place] [phone] Alonso Bae MD [address] [place] [address] [address] [place] [address] 07/17/2026 2:00 PM EDT Office Visit [facility] - Internal Medicine [address] [place] [phone] Ilya Gusman MD [address] [place] [phone] 07/19/2026 11:40 AM EDT Office Visit [facility] [address] [address] Yesi Perez MD 70 [place] [address] documented as of this encounter Visit Diagnoses Not on filedocumented in this encounter Additional Health Concerns Assessment Noted Time PHQ-9 Depression Total Score: 6 04/28/20 24 1:53 PM EDT documented as of this encounter Care Teams Deputy Brand Inspector Relationship Specialty Start Date End Date Ilya Gusman MD [address] [place] [address] [phone] PCP - General 05/14/17 [facility] 09/01/25 documented as of this encounter
--- OUTSIDE RECORDS SUMMARY | 2025-10-06 22:28 | XMS_ITS | Encounter Summary ---
Author Organization [facility] ystem Address [address] [place] [address] Phone Care Team Providers Care Staff Radiologist Name Role Phone Ilya Gusman MD Primary Care Provider [phone] Encounter Details Date Type Department Care Team ([facility] Contact Info) Description 04/08/2024 Orders Only [facility] - Health Information Department [address] [place] [address] Scan, No Provider Available [address] [place] [address] [address]. [place]azar [place] [phone] Social History Tobacco Use Types Packs/Day Years [...] Date Type Department Care Team ([facility] Contact Info) Description 10/10/2025 10:30 AM EST Office Visit [facility] - Internal Medicine [address] [place] [phone] Ilya Gusman MD [address] [place] [phone] Christophe Dailey MD [address] [place] [address] [phone] 01/18/2026 1:00 PM EST Office Visit [facility] [address] [place] [address] Porsha Marsh, FOUNDATION COORDINATOR [address] [place] [address] 02/22/2026 11:00 AM EDT Office Visit [facility] [address] [place] [address] [address] [place] [phone] Alonso Bae MD [address] [place] [address] [address] [place] [address] 07/17/2026 2:00 PM EDT Office Visit [facility] - Internal Medicine [address] [place] [address] [phone] Ilya Gusman MD [address] [place] [phone] 07/19/2026 11:40 AM EDT Office Visit [facility] [address] [place] [address] Yesi Perez MD [address] [place] [address] documented as of this encounter Procedures Procedure [...] documented as of this encounter Care Teams Staff Radiologist Relationship Specialty Start Date End Date Ilya Gusman MD [address] [place] [phone] PCP - General 05/14/17 [facility] 09/01/25 documented as of this encounter
--- OUTSIDE RECORDS SUMMARY | 2025-10-06 22:29 | XMS_ITS | Encounter Summary ---
Author Organization [facility] Address [address] [place] [address] Phone Care Team Providers Care Cushion Mat Maker Name Role Phone Ilya Gusman MD Primary Care Provider [phone] Encounter Details Date Type Department Care Team (Late st Contact Info) Description 10/06/2025 Patient Outreach [facility] Management [address] [place] [phone] Deion Woods Social History Tobacco Use [...] encounter Progress Notes * Deion Woods - 10/06/2025 8:12 AM EST [facility] received notification that Pt has admitted to [facility] on 10/06/25. [facility] contacted facility and [facility] for CM dept passing along my contact information for questions, concerns and dc planning needs. Deion Woods RN Nurse Food Service Utility Worker Population Health documented in this encounter Plan of Treatment Upcoming Encounters Date Type Department Care Team (Late st Contact Info) Description 10/10/2025 10:30 AM EST Office Visit [facility] - Internal Medicine [address] [place] [phone] Ilya Gusman MD [address] [place] [phone] Christophe Dailey MD [address] [place] [phone] 01/18/2026 1:00 PM EST Office Visit [facility] [address] [place] [address] Porsha Marsh, HOT BILLET SHEAR OPERATOR [address] [place] [address] 02/22/2026 11:00 AM EDT Office Visit [facility] [address] [place] [address] [address] [place] [phone] Alonso Bae MD [address] [place] [address] [address] [place] [address] 07/17/2026 2:00 PM EDT Office Visit [facility] - Internal Medicine [address] [place] [phone] Ilya Gusman MD [address] [place] [address] [phone] 07/19/2026 11:40 AM EDT Office Visit [facility] [address] [place] [address] Yesi Perez MD 70 [place] [address] documented as of this encounter Visit Diagnoses Not on filedocumented in this encounter Additional Health Concerns Assessment Noted Time PHQ-9 Depression Total Score: 16 025 11:49 AM EDT documented as of this encounter Care Teams Cushion Mat Maker Relationship Specialty Start Date End Date Ilya Gusman MD [address] [place] [phone] PCP - General 05/14/17 [facility] 09/01/25 documented as of this encounter
--- OUTSIDE RECORDS SUMMARY | 2025-10-06 22:29 | XMS_ITS | Encounter Summary ---
Author Organization [facility] Address [address] [place] [address] Phone Care Team Providers Care Senior Sas Programmer Name Role Phone Ilya Gusman MD Primary Care Provider [phone] Encounter Details Date Type Department Care Team (Late Contact Info) Description 08/30/2019 Ancillary Orders [facility] - Internal Medicine [address] [place] [phone] Christophe Dailey MD [address] [place] [phone] Rib pain on left side Social [...] 10/10/2025 10:30 AM EST Office Visit [facility] - Internal Medicine [address] [place] [phone] Ilya Gusman MD [address] [place] [address] [phone] Christophe Dailey MD [address] [place] [phone] 01/18/2026 1:00 PM EST Office Visit [facility] [address] [place] [phone] Porsha Marsh, STRIPER SPRAY GUN 70 [place] [address] 02/22/2026 11:00 AM EDT Office Visit [facility] [address] [place] [address] [address] [place] [address] Alonso Bae MD [address] [place] [address] [address] [place] [address] 07/17/2026 2:00 PM EDT Office Visit [facility] - Internal Medicine [address] [place] [phone] Ilya Gusman MD [address] [place] [phone] 07/19/2026 11:40 AM EDT Office Visit [facility] [address] [place] [address] Yesi Perez MD 70 [place] [address] documented as of this encounter Results * [...] as of this encounter Care Teams Senior Sas Programmer Relationship Specialty Start Date End Date Ilya Gusman MD [address] [place] [phone] PCP - General 05/14/17 [facility] 09/01/25 documented as of this encounter
--- OUTSIDE RECORDS SUMMARY | 2025-10-06 22:29 | XMS_ITS | Encounter Summary ---
Author Organization [facility] Address [address] [place] [address] Phone Care Team Providers Care Welder Gas Name Role Phone Ilya Gusman MD Primary Care Provider [phone] Encounter Details Date Type Department Care Team (Late st Contact Info) Description 07/17/2022 Scanned Document [facility] - Health Information Department [address] [place], [place] [phone] Scan, No Provider Available [address] [place] [address] <No scans attached> Social History Tobacco Use [facility] [address] [place] [phone] Ilya Gusman MD [address] [place] [phone] Christophe Dailey MD [address] [place] [phone] 01/18/2026 1:00 PM EST Office Visit [facility] [address] [place] [address] Porsha Marsh, CABLE INSTALLER REPAIRER HELPER [address] [place] [address] 02/22/2026 11:00 AM EDT Office Visit [facility] [address] [place] [address] [address] [place] [phone] Alonso Bae MD [address] [place] [address] [address] [place] [address] 07/17/2026 2:00 PM EDT Office Visit [facility] - Internal Medicine [address] [place] [phone] Ilya Gusman MD [address] [place] [phone] 07/19/2026 11:40 AM EDT Office Visit [facility] [address] [place] [address] Yesi Perez MD [address] [place] [address] documented as of this encounter Visit Diagnoses [...] as of this encounter Care Teams Welder Gas Relationship Specialty Start Date End Date Ilya Gusman MD [address] [place] [phone] PCP - General 05/14/17 [facility] 09/01/25 documented as of this encounter
--- OUTSIDE RECORDS SUMMARY | 2025-10-06 22:29 | XMS_ITS | Encounter Summary ---
Author Organization [facility] Address [address] [place] [address] Phone Care Team Providers Care Metal Grader Name Role Phone Ilya Gusman MD Primary Care Provider [phone] Encounter Details Date Type Department Care Team (Late Contact Info) Description 10/20/2019 Scanned Document [facility] - Health Information Department [address] [place] [address] Scan, No Provider Available [address] [place] [address] [place] [address] <No scans attached> Social History Tobacco Use [...] [facility] [address] [place] [phone] Ilya Gusman MD [address] [place] [phone] Christophe Dailey MD [address] [place] [phone] 01/18/2026 1:00 PM EST Office Visit [facility] [address] [place] [address] Porsha Marsh, DRIVER/REFUSE COLLECTOR [address] [place] [address] 02/22/2026 11:00 AM EDT Office Visit [facility] [address] [place] [address] [address] [place] [phone] Alonso Bae MD [address] [place] [address] [address] [place] [address] 07/17/2026 2:00 PM EDT Office Visit [facility] - Internal Medicine [address] [place] [phone] Ilya Gusman MD [address] [place] [phone] 07/19/2026 11:40 AM EDT Office Visit [facility] [address] [place] [address] Yesi Perez MD [address] [place] [address] documented as of this encounter Visit Diagnoses [...] as of this encounter Care Teams Metal Grader Relationship Specialty Start Date End Date Ilya Gusman MD [address] [place] [address] [phone] PCP - General 05/14/17 [facility] 09/01/25 documented as of this encounter
--- OUTSIDE RECORDS SUMMARY | 2025-10-06 22:29 | XMS_ITS | Encounter Summary ---
Author Organization [facility] Address [address] [place] [address] Phone Care Team Providers Care Front Sight Attacher Name Role Phone Ilya Gusman MD Primary Care Provider [phone] Reason for Visit * Reason Onset Date Comments Med Refill 05/06/2022 Encounter Details Date Type Department Care Team (Late st Contact Info) Description 05/06/2022 Refill [facility] - Internal Medicine [address] [place] [address] [phone] Christophe Dailey MD [address] [place] [phone] Med Refill Social History Tobacco Use [...] why this was denied. Thanks Kristina Schneider [facility] Refill Team [employer] [facility] * Telephone Encounter - Kristina Schneider, PhT - 05/07/2022 8:12 AM EDT Refill Hydromorphone 4mg #84 BLOCK [place] LOCATION: [facility] DATE OF LAST REFILL? 04/24/22 FREQUENCY OF REFILLS? 14 days DATE REFILL IS DUE? 05/08/22 IS THIS AN EARLY REFILL? (Requests made within 72hrs of refill date are not considered early, this allows for processing time) No CONTROLLED SUBSTANCE AGREEMENT ON FILE? Yes Last UDS on 08/06/21 Last OV on 04/18/22 Future Appointments Date Time Provider Department Center 05/14/2022 11:30 AM SS [place] INJECTION CHAIR H NUC [facility] 05/14/2022 12:[address] 05/14/2022 2:45 PM SSH NM 3 SSH NUC H 10/21/2022 11:00 AM Ilya Gusman MD [facility] reviewed on 05/07/2022 by Ian BARNETT and no red flags were noted documented in this encounter Plan of Treatment Upcoming Encounters Date Type Department Care Team (Late st Contact Info) Description 10/10/2025 10:30 AM EST Office Visit [facility] - Internal Medicine [address] [place] [phone] Ilya Gusman MD [address] [place] [phone] Christophe Dailey MD [address] [place] [phone] 01/18/2026 1:00 PM EST Office Visit [facility] [address] [place] [address] Porsha Marsh, MARILIA [address] [place] [address] 02/22/2026 11:00 AM EDT Office Visit [facility] [address] [place] [address] [address] [place] [address] Alonso Bae MD [address] [place] [address] [address] [place] [address] 07/17/2026 2:00 PM EDT Office Visit [facility] - Internal Medicine [address] [place] [phone] Ilya Gusman MD [address] [place] [phone] 07/19/2026 11:40 AM EDT Office Visit [facility] [address] [place] [phone] Yesi Perez MD [address] [place] [address] documented as of this encounter Visit Diagnoses [...] as of this encounter Care Teams Front Sight Attacher Relationship Specialty Start Date End Date Ilya Gusman MD [address] [place] [phone] PCP - General 05/14/17 [facility] 09/01/25 documented as of this encounter
--- OUTSIDE RECORDS SUMMARY | 2025-10-06 22:29 | XMS_ITS | Encounter Summary ---
Author Organization [facility] Address [address] [place] [address] Phone Care Team Providers Care Tanning Wheel Filler Name Role Phone Ilya Gusman MD Primary Care Provider [phone] Reason for Visit * Reason Onset Date Comments Med Refill 12/16/2018 Encounter Details Date Type Department Care Team ([facility] Contact Info) Description 12/16/2018 Refill [facility] - Internal Medicine [address] [place] [phone] Christophe Dailey MD [address] [place] [phone] Med Refill Social History Tobacco Use [...] Visit [facility] - Internal Medicine [address] [place] [phone] Ilya Gusman MD [address] [place] [phone] Christophe Dailey MD [address] [place] [phone] 01/18/2026 1:00 PM EST Office Visit [facility] [address] [place] [address] Porsha Marsh, [address] [address] 02/22/2026 11:00 AM EDT Office Visit [facility] [address] [place] [address] [address] [place] [address] Alonso Bae MD [address] [place] [address] [address] [place] [address] 07/17/2026 2:00 PM EDT Office Visit [facility] - Internal Medicine [address] [place] [phone] Ilya Gusman MD [address] [place] [phone] 07/19/2026 11:40 AM EDT Office Visit [facility] [address] [place] [address] Yesi Perez MD [address] [place] [address] documented as of this encounter Visit Diagnoses [...] documented as of this encounter Care Teams Tanning Wheel Filler Relationship Specialty Start Date End Date Ilya Gusman MD [address] [place] [address] [phone] PCP - General 05/14/17 [facility] 09/01/25 documented as of this encounter
--- OUTSIDE RECORDS SUMMARY | 2025-10-06 22:29 | XMS_ITS | Encounter Summary ---
Author Organization [facility] Address [address] [place] [address] Phone Care Team Providers Care Ore Miner Blasting Name Role Phone Ilya Gusman MD Primary Care Provider [phone] Reason for Visit * Reason Onset Date Comments Med Refill 02/01/2019 Encounter Details Date Type Department Care Team (Late st Contact Info) Description 02/01/2019 Refill [facility] - Internal Medicine [address] [place] [phone] Ilya Gusman MD [address] [place] [phone] Med Refill Social History Tobacco Use [...] Description 10/10/2025 10:30 AM EST Office Visit [facility] - Internal Medicine [address] [place] [phone] Ilya Gusman MD [address] [place] [address] [phone] Christophe Dailey MD [address] [place] [address] [phone] 01/18/2026 1:00 PM EST Office Visit [facility] 70 [facility] 1 [place] [address] Porsha Marsh, MUTUAL FUND ACCOUNTANT 70 [place] [address] 02/22/2026 11:00 AM EDT Office Visit [facility] [address] [place] [address] [place] [phone] Alonso Bae MD [address] [facility] [address] [place] [address] 07/17/2026 2:00 PM EDT Office Visit [facility] - Internal Medicine [address] [place] [phone] Ilya Gusman MD [address] [place] [address] [phone] 07/19/2026 11:40 AM EDT Office Visit [facility] [address] [address] Yesi Perez MD 70 [place] [address] documented as of this encounter Visit Diagnoses [...] documented as of this encounter Care Teams Ore Miner Blasting Relationship Specialty Start Date End Date Ilya Gusman MD [address] [place] [phone] PCP - General 05/14/17 [facility] 09/01/25 documented as of this encounter
--- OUTSIDE RECORDS SUMMARY | 2025-10-06 22:29 | XMS_ITS | Encounter Summary ---
Author Organization [facility] Address [address] [place] [address] Phone Care Team Providers Care Engineering Assistant Name Role Phone Ilya Gusman MD Primary Care Provider [phone] Reason for Visit * Reason Onset Date Comments Med Refill 05/17/2022 Encounter Details Date Type Department Care Team (Late st Contact Info) Description 05/17/2022 Refill [facility] - Internal Medicine [address] [place] [address] [phone] Christophe Dailey MD [address] [place] [phone] Med Refill Social History Tobacco Use [...] [facility] [address] [place] [phone] Ilya Gusman MD [address] [place] [phone] Christophe Dailey MD [address] [place] [address] [phone] 01/18/2026 1:00 PM EST Office Visit [facility] 70 [facility] 1 [place] [address] Porsha Marsh, HYDRAULIC LIFT OPERATOR [address] [place] [address] 02/22/2026 11:00 AM EDT Office Visit [facility] [address] [place] [address] [address] [place] [phone] Alonso Bae MD [address] [place] [address] [address] [place] [address] 07/17/2026 2:00 PM EDT Office Visit [facility] - Internal Medicine [address] [place] [phone] Ilya Gusman MD [address] [place] [phone] 07/19/2026 11:40 AM EDT Office Visit [facility] [address] [address] Yesi Perez MD 70 [place] [address] documented as of this encounter Visit Diagnoses [...] documented as of this encounter Care Teams Engineering Assistant Relationship Specialty Start Date End Date Ilya Gusman MD [address] [place] [phone] PCP - General 05/14/17 [facility] 09/01/25 documented as of this encounter
--- OUTSIDE RECORDS SUMMARY | 2025-10-06 22:29 | XMS_ITS | Encounter Summary ---
Author Organization [facility] Address [address] [place] [address] Phone Care Team Providers Care Chemist Intern Name Role Phone Ilya Gusman MD Primary Care Provider [phone] Reason for Visit * Reason Onset Date Comments Med Refill 10/04/2019 Encounter Details Date Type Department Care Team (Late st Contact Info) Description 10/04/2019 [facility]ill [facility] - Internal Medicine [address] [place] [phone] Ilya Gusman MD [address] [place] [phone] Med Refill Social History Tobacco Use [...] AM EST Refill Oxycodone 10mg #21 Pharmacy: [facility] DATE OF LAST REFILL? 09/29/19 FREQUENCY OF [...] AM Alejandro Lion MD NEV NEUROSP NEV VOICE OVER ANNOUNCER reviewed on 10/05/2019 by Ian BARNETT and no red flags were noted Kristina Schneider [facility] Refill Team [employer] documented in this encounter Plan of Treatment Upcoming Encounters Date Type Department Care Team (Late st Contact Info) Description 10/10/2025 10:30 AM EST [facility] [address] [place] [address] [phone] Ilya Gusman MD [address] [place] [address] [phone] Christophe Dailey MD [address] [place] [address] [phone] 01/18/2026 1:00 PM EST Office Visit [facility] [address] [address] Porsha Marsh, BARREL ASSEMBLER 70 [place] [address] 02/22/2026 11:00 AM EDT Office Visit [facility] [address] [facility] [address] [place] [phone] Alonso Bae MD 780 [facility] [address] [place] [address] 07/17/2026 2:00 PM EDT [facility] Medicine [address] [place] [phone] Ilya Gusman MD [address] [place] [address] [phone] 07/19/2026 11:40 AM EDT Office Visit [facility] 70 [facility] 1 [place] [address] Yesi Perez MD 70 [place] [address] documented as of this encounter Visit Diagnoses [...] as of this encounter Care Teams Chemist Intern Relationship Specialty Start Date End Date Ilya Gusman MD [address] [place] [address] [phone] PCP - General 05/14/17 [facility] 09/01/25 documented as of this encounter
--- OUTSIDE RECORDS SUMMARY | 2025-10-06 22:29 | XMS_ITS | Encounter Summary ---
Author Organization [facility]stem Address [address] [place] [address] Phone Care Team Providers Care Tar Distributor Operator Name Role Phone Ilya Gusman MD Primary Care Provider [phone] Encounter Details Date Type Department Care Team (Late st Contact Info) Description 05/02/2022 Scanned Document [facility] - Health Information Department [address] [place], [place] [phone] Scan, No Provider Available [address] [place] [address] <No scans attached> Social History Tobacco Use [...] [facility] - Internal Medicine [address] [place] [phone] Ilya Gusman MD [address] [place] [phone] Christophe Dailey MD [address] [place] [phone] 01/18/2026 1:00 PM EST Office Visit [facility] [address] [place] [address] Porsha Marsh, FLAG SIGNALER [address] [place] [address] 02/22/2026 11:00 AM EDT Office Visit [facility] [address] [place] [address] [address] [place] [phone] Alonso Bae MD [address] [place] [address] [address] [place] [address] 07/17/2026 2:00 PM EDT Office Visit [facility] - Internal Medicine [address] [place] [phone] Ilya Gusman MD [address] [place] [phone] 07/19/2026 11:40 AM EDT Office Visit [facility] [address] [place] [address] Yesi Perez MD [address] [place] [address] documented as of this encounter Visit Diagnoses [...] as of this encounter Care Teams Tar Distributor Operator Relationship Specialty Start Date End Date Ilya Gusman MD [address] [place] [phone] PCP - General 05/14/17 [facility] 09/01/25 documented as of this encounter
--- OUTSIDE RECORDS SUMMARY | 2025-10-06 22:29 | XMS_ITS | Encounter Summary ---
Author Organization [facility] Address [address] [place] [address] Phone Care Team Providers Care Rack Cleaner Name Role Phone Ilya Gusman MD Primary Care Provider [phone] Encounter Details Date Type Department Care Team (Late st Contact Info) Description 04/11/2025 Scanned Document [facility] - Health Information Department 143 [place], [place] [phone] Scan, No Provider Available [address] [place] [address] [place] [address] <No scans attached> Social History Tobacco Use [...] [facility] - Internal Medicine [address] [place] [phone] Ilya Gusman MD [address] [place] [phone] Christophe Dailey MD [address] [place] [phone] 01/18/2026 1:00 PM EST Office Visit [facility] [address] [address] Porsha Marsh, DRILL HAND 70 [place] [address] 02/22/2026 11:00 AM EDT Office Visit [facility] [address] [place] [address] [address] [place] [phone] Alonso Bae MD [address] [place] [address] [address] [place] [address] 07/17/2026 2:00 PM EDT Office Visit [facility] - Internal Medicine [address] [place] [phone] Ilya Gusman MD [address] [place] [address] [phone] 07/19/2026 11:40 AM EDT Office Visit [facility] [address] [place] [address] Yesi Perez MD 70 [place] [address] documented as of this encounter Visit Diagnoses Not on filedocumented in this encounter Additional Health Concerns Assessment Noted Time PHQ-9 Depression Total Score: 6 04/28/20 24 1:53 PM EDT documented as of this encounter Care Teams Rack Cleaner Relationship Specialty Start Date End Date Ilya Gusman MD [address] [place] [address] [phone] PCP - General 05/14/17 [facility] 09/01/25 documented as of this encounter
--- OUTSIDE RECORDS SUMMARY | 2025-10-06 22:29 | XMS_ITS | Encounter Summary ---
[facility] Organization [facility] Address [address] [place] [address] Phone Care Team Providers Care Coach Operator Name Role Phone Ilya Gusman MD Primary Care Provider [phone] Reason for Referral * MRI/CAT/PET Scan - Closed Specialty Diagnoses / Procedures Referred By Contac t Referred To Contact Radiology Diagnoses Prostate cancer (CMS/HCC) Procedures CT chest with contrast CT chest with and without contrast Lee Nava MD [address] [place] [address] Phone: tel: fax: Referral ID Status Reason Start Date Expiration Date Visits Re quested Visits Authorized [id number] Closed 04/26/2022 10/23/2022 1 1 * MRI/CAT/PET Scan - Closed Specialty Diagnoses / Procedures Referred By Contac t Referred To Contact Radiology Diagnoses Prostate cancer ([facility]/HCC) Procedures CT abdomen pelvis with contrast Lee Nava MD [address] [place] [address] Phone: tel: fax: Referral ID Status Reason Start Date Expiration Date Visits Re quested Visits Authorized [id number] Closed 04/26/2022 10/23/2022 1 1 * MRI/CAT/PET Scan - Closed Specialty Diagnoses / Procedures Referred By Contdavid t Referred To Contact Radiology Diagnoses Prostate cancer ([facility]/HCC) Procedures Nuclear Medicine bone scan whole body Lee Nava MD [address] [place] [address] Phone: tel: fax: Referral ID Status Reason Start Date Expiration Date Visits Re quested Visits Authorized [id number] Closed 04/26/2022 07/29/2023 2 2 Encounter Details Date Type Department Care Team (Late Contact Info) Description 04/26/2022 Ancillary Orders [facility] - Central Scheduling [address] [place] [address] Lee Nava MD [address] [place] [address] Prostate cancer ([facility]/HCC) Social History Tobacco Use Types Packs/Day Years [...] [facility] - Internal Medicine [address] [place] [phone] Ilya Gusman MD [address] [place] [phone] Christophe Dailey MD [address] [place] [phone] 01/18/2026 1:00 PM EST Office Visit [facility] [address] [place] [address] Porsha Marsh, LIVESTOCK SHOWMAN [address] [place] [address] 02/22/2026 11:00 AM EDT Office Visit [facility] [address] [place] [address] [address] [place] [phone] Alonso Bae MD [address] [place] [address] [address] [place] [address] 07/17/2026 2:00 PM EDT Office Visit [facility] - Internal Medicine [address] [place] [phone] Ilya Gusman MD [address] [place] [phone] 07/19/2026 11:40 AM EDT Office Visit [facility] [address] [place] [address] Yesi Perez MD [address] [place] [address] documented as of this encounter Results * [...] the abdomen and pelvis was performed according [facility]. Direct axial images were acquired [...] documented as of this encounter Care Teams Coach Operator Relationship Specialty Start Date End Date Ilya Gusman MD [address] [place] [phone] PCP - General 05/14/17 [facility] 09/01/25 documented as of this encounter
--- OUTSIDE RECORDS SUMMARY | 2025-10-06 22:29 | XMS_ITS | Encounter Summary ---
Author Organization [facility]stem Address [address] [place] [address] Phone Care Team Providers Care Civil Structural Engineer Name Role Phone Ilya Gusman MD Primary Care Provider [phone] Encounter Details Date Type Department Care Team (Late Contact Info) Description 09/03/2019 Scanned Document [facility] - Health Information Department [address] [place] [address] Scan, No Provider Available [address] [place] [address] [place] [address] <No scans attached> Social History Tobacco Use [...] 10/10/2025 10:30 AM EST Office Visit [facility] - Internal Medicine [address] [place] [phone] Ilya Gusman MD [address] [place] [phone] Christophe Dailey MD [address] [place] [phone] 01/18/2026 1:00 PM EST Office Visit [facility] [address] [place] [address] Porsha Marsh, FACULTY CRIMINAL JUSTICE [address] [place] [address] 02/22/2026 11:00 AM EDT Office Visit [facility] [address] [place] [address] [address] [place] [phone] Alonso Bae MD [address] [place] [address] [address] [place] [address] 07/17/2026 2:00 PM EDT Office Visit [facility] - Internal Medicine [address] [place] [phone] Ilya Gusman MD [address] [place] [phone] 07/19/2026 11:40 AM EDT Office Visit [facility] [address] [place] [address] Yesi Perez MD [address] [place] [address] documented as of this encounter Visit Diagnoses [...] as of this encounter Care Teams Civil Structural Engineer Relationship Specialty Start Date End Date Ilya Gusman MD [address] [place] [phone] PCP - General 05/14/17 [facility] 09/01/25 documented as of this encounter
--- OUTSIDE RECORDS SUMMARY | 2025-10-06 22:29 | XMS_ITS | Encounter Summary ---
Author Organization [facility] ystem Address [address] [place] [address] Phone Care Team Providers Care Surveyor Helper Name Role Phone Ilya Gusman MD Primary Care Provider [phone] Encounter Details Date Type Department Care Team (Late st Contact Info) Description 05/16/2022 Scanned Document [facility] - Health Information Department [address] [place], [place] [id number] Scan, No Provider Available [address] [facility] [place] [address] <No scans attached> Social History Tobacco Use [...] [facility] - Internal Medicine [address] [place] [phone] Ilya Gusman MD [address] [place] [phone] Christophe Dailey MD [address] [place] [phone] 01/18/2026 1:00 PM EST Office Visit [facility] [address] [place] [address] Porsha Marsh, BUILDER'S LABOURER [address] [place] [address] 02/22/2026 11:00 AM EDT Office Visit [facility] [address] [place] [address] [address] [place] [phone] Alonso Bae MD [address] [place] [address] [address] [place] [address] 07/17/2026 2:00 PM EDT Office Visit [facility] - Internal Medicine [address] [place] [phone] Ilya Gusman MD [address] [place] [phone] 07/19/2026 11:40 AM EDT Office Visit [facility] [address] [place] [address] Yesi Perez MD [address] [place] [address] documented as of this encounter Visit Diagnoses [...] documented as of this encounter Care Teams Surveyor Helper Relationship Specialty Start Date End Date Ilya Gusman MD [address] [place] [phone] PCP - General 05/14/17 [facility] 09/01/25 documented as of this encounter
--- OUTSIDE RECORDS SUMMARY | 2025-10-06 22:29 | XMS_ITS | Encounter Summary ---
Author Organization [facility]stem Address [address] [place] [address] Phone Care Team Providers Care Business Services Specialist Sales Name Role Phone Ilya Gusman MD Primary Care Provider [phone] Encounter Details Date Type Department Care Team (Late st Contact Info) Description 05/02/2025 Scanned Document [facility] - Health Information Department [address] [place], [place] [phone] Scan, No Provider Available [address] [facility] [place] [address] <No scans attached> Social History Tobacco Use [...] 10:30 AM EST Office Visit [facility] - Internal Medicine [address] [place] [phone] Ilya Gusman MD [address] [place] [phone] Christophe Dailey MD [address] [place] [phone] 01/18/2026 1:00 PM EST Office Visit [facility] [address] [address] Porsha Marsh, HOSPITAL SALES REPRESENTATIVE 70 [place] [address] 02/22/2026 11:00 AM EDT Office Visit [facility] [address] [place] [address] [address] [place] [phone] Alonso Bae MD [address] [place] [address] [address] [place] [address] 07/17/2026 2:00 PM EDT Office Visit [facility] - Internal Medicine [address] [place] [phone] Ilya Gusman MD [address] [place] [phone] 07/19/2026 11:40 AM EDT Office Visit [facility] [address] [place] [address] Yesi Perez MD 70 [place] [address] documented as of this encounter Visit Diagnoses Not on filedocumented in this encounter Additional Health Concerns Assessment Noted Time PHQ-9 Depression Total Score: 6 04/28/20 24 1:53 PM EDT documented as of this encounter Care Teams Business Services Specialist Sales Relationship Specialty Start Date End Date Ilya Gusman MD [address] [place] [address] [phone] PCP - General 05/14/17 [facility] 09/01/25 documented as of this encounter
--- OUTSIDE RECORDS SUMMARY | 2025-10-06 22:29 | XMS_ITS | Encounter Summary ---
Author Organization [facility] Address [address] [place] [address] Phone Care Team Providers Care Asbestos Coverer Name Role Phone Ilya Gusman MD Primary Care Provider [phone] Reason for Visit * Reason Onset Date Comments Med Refill 12/31/2018 Encounter Details Date Type Department Care Team ([facility] Contact Info) Description 12/31/2018 Refill [facility] - Internal Medicine [address] [place] [phone] Christophe Dailey MD [address] [place] [phone] Med Refill Social History Tobacco Use [...] Description 10/10/2025 10:30 AM EST Office Visit [facility] - Internal Medicine [address] [place] [phone] Ilya Gusman MD [address] [place] [phone] Christophe Dailey MD [address] [place] [phone] 01/18/2026 1:00 PM EST Office Visit [facility] [address] [place] [address] Porsha Marsh, [address] [address] 02/22/2026 11:00 AM EDT Office Visit [facility] [address] [place] [address] [address] [place] [phone] Alonso Bae MD [address] [place] [address] [address] [place] [address] 07/17/2026 2:00 PM EDT Office Visit [facility] - Internal Medicine [address] [place] [phone] Ilya Gusman MD [address] [place] [phone] 07/19/2026 11:40 AM EDT Office Visit [facility] [address] [place] [address] Yesi Perez MD [address] [place] [address] documented as of this encounter Visit Diagnoses [...] as of this encounter Care Teams Asbestos Coverer Relationship Specialty Start Date End Date Ilya Gusman MD [address] [place] [phone] PCP - General 05/14/17 [facility] 09/01/25 documented as of this encounter
--- OUTSIDE RECORDS SUMMARY | 2025-10-06 22:29 | XMS_ITS | Encounter Summary ---
Author Organization [facility] Address [address] [place] [address] Phone Care Team Providers Care Toll Mechanic Name Role Phone Ilya Gusman MD Primary Care Provider [phone] Reason for Visit * Reason Onset Date Comments 2-memory/cognitive concerns 10/05/2025 Encounter Details Date Type Department Care Team ([facility] Contact Info) Description 10/05/2025 Telephone [facility] - Internal Medicine [address] [place] [phone] Ilya Gusman MD [address] [place] [phone] 2-memory/cognitive concerns Social History Tobacco Use Types Packs/Day Years [...] Miscellaneous Notes * Telephone Encounter - Patricia Corley LPN - 10/06/2025 11:23 AM EST Returned call to Taya at [facility]. Left message on voicemail to call back. Patricia Saravia L.P.N. [facility] Triage * Telephone Encounter - Ilya Gusman MD - 10/06/2025 10:13 AM EST That is correct. I have seen some misdiagnoses/over-diagnoses coming from people working in Neurology offices. * Telephone Encounter - Beth Donnelly RN - 10/06/2025 9:58 AM EST Nursing confirming, PCP does not agree with neurology referral at this time? Beth Donnelly RN [facility] * Telephone Encounter - Ilya Gusman MD - 10/05/2025 9:24 PM EST It is difficult to conclude decline in mental functioning is permanent in setting of acute depressive episode precipitated by severe stressor, such as recent suicide of a friend, by natural causes of another friend, and other events. * Telephone Encounter - Mere Tesfaye - 10/05/2025 3:49 PM EST What is your medical question/concern for the nurse? Taya from [facility] following up with PCP about patients status. She is concerned about decrease in cognitive memory and the patient is declining. She states she has been seeing him frequently and noticed a drastic decline in his memory/ cognitive ability. She states he may need neurology referral. She states she would have left her personal number if it was not part of patient chart. How long have the symptoms been going on? na What have you done for the symptoms? na Caller advised that I will forward the message to the triage nurses and they will return the call. They prioritize their calls based on urgency. Typically they aim to return all urgent calls the sameday. documented in this encounter Plan of Treatment Upcoming Encounters Date Type Department Care Team (Late st Contact Info) Description 10/10/2025 10:30 AM EST Office Visit [facility] - Internal Medicine [address] [place] [phone] Ilya Gusman MD [address] [place] [phone] Christophe Dailey MD [address] [place] [address] [phone] 01/18/2026 1:00 PM EST Office Visit [facility] [address] [place] [address] Porsha Marsh, LEATHER PARTS MATCHER [address] [place] [address] 02/22/2026 11:00 AM EDT Office Visit [facility] [address] [place] [address] [address] [place] [phone] Alonso Bae MD [address] [place] [address] [address] [place] [address] 07/17/2026 2:00 PM EDT Office Visit [facility] - Internal Medicine [address] [place] [phone] Ilya Gusman MD [address] [place] [phone] 07/19/2026 11:40 AM EDT Office Visit [facility] [address] [place] [address] Yesi Perez MD [address] [place] [address] documented as of this encounter Visit Diagnoses Not on filedocumented in this encounter Additional Health Concerns Assessment Noted Time PHQ-9 Depression Total Score: 16 025 11:49 AM EDT documented as of this encounter Care Teams Toll Mechanic Relationship Specialty Start Date End Date Ilya Gusman MD [address] [place] [phone] PCP - General 05/14/17 [facility] 09/01/25 documented as of this encounter
--- OUTSIDE RECORDS SUMMARY | 2025-10-06 22:29 | XMS_ITS | Encounter Summary ---
Author Organization [facility] ystem Address [address] [place] [address] Phone Care Team Providers Care Biology Professor Name Role Phone Ilya Gusman MD Primary Care Provider [phone] Encounter Details Date Type Department Care Team (Late st Contact Info) Description 05/23/2025 Scanned Document [facility] - Health Information Department [address] [place], [place] [phone] Scan, No Provider Available [address] [facility] [place] [address] <No scans attached> Social History Tobacco Use [...] Description 10/10/2025 10:30 AM EST Office Visit [facility] - Internal Medicine [address] [place] [phone] Ilya Gusman MD [address] [place] [phone] Christophe Dailey MD [address] [place] [phone] 01/18/2026 1:00 PM EST Office Visit [facility] [address] [address] Porsha Marsh CNP 70 [place] [address] 02/22/2026 11:00 AM EDT Office Visit [facility] [address] [place] [phone] Alonso Bae MD [address] [place] [address] 07/17/2026 2:00 PM EDT Office Visit [facility] - Internal Medicine [address] [place] [phone] Ilya Gusman MD [address] [place] [phone] 07/19/2026 11:40 AM EDT Office Visit [facility] [address] [address] Yesi Perez MD 70 [place] [address] documented as of this encounter Visit Diagnoses Not on filedocumented in this encounter Additional Health Concerns Assessment Noted Time PHQ-9 Depression Total Score: 14 025 9:49 AM EDT documented as of this encounter Care Teams Biology Professor Relationship Specialty Start Date End Date Ilya Gusman MD [address] [place] [phone] PCP - General 05/14/17 [facility] 09/01/25 documented as of this encounter
--- OUTSIDE RECORDS SUMMARY | 2025-10-06 22:29 | XMS_ITS ---
Author Organization [facility] Address [address] [place], [place] [phone] Care Team Providers Care Registration Representative Name Role Phone Ilya Gusman MD Primary Care Provider [phone] Care Transitions Status:Enrolled (Active) Start date:10/11/2024 Enrollment date:10/11/2024 Enrollment reason:Referred by provider Current support & services provided:[facility] Related social drivers of health:Social Connections, Alcohol Use, Tobacco Use, Financial Resource Strain, Depression, Stress, Physical Activity, Food Insecurity, Transportation Needs, Housing Stability, Health Literacy, Utilities, Depression Overview Pulled from legacy reports Continued Care and Services Coordination
--- OUTSIDE RECORDS SUMMARY | 2025-10-06 22:29 | XMS_ITS | Encounter Summary ---
Author Organization [facility] Address [address] [place] [address] Phone Care Team Providers Care Shuttle Threader Name Role Phone Ilya Gusman MD Primary Care Provider [phone] Reason for Referral * Diagnostic Imaging - Closed Specialty Diagnoses / Procedures Referred By London blankenship Referred To Contact Radiology Diagnoses Left hip pain Procedures Fluoroscopy guided intra articular steroid injection left hip Tc Story MD [address] [place], [place] [phone] Phone: tel: fax: Referral ID Status Reason Start Date Expiration Date Visits Re quested Visits Authorized [id number] Closed 01/01/2019 04/04/2020 1 1 Encounter Details Date Type Department Care Team (Late Contact Info) Description 01/01/2019 Ancillary Orders [facility] 2 [place] [phone] Tc Story MD [address] [place] [address] Left hip pain Social History Tobacco Use [...] [facility] - Internal Medicine [address] [place] [phone] Ilya Gusman MD [address] [place] [phone] Christophe Dailey MD [address] [place] [phone] 01/18/2026 1:00 PM EST Office Visit [facility] [address] [address] Porsha Marsh, COOLING PAN TENDER 70 [place] [address] 02/22/2026 11:00 AM EDT Office Visit [facility] [address] [place] [phone] Alonso Bae MD [facility] [address] [place] [address] 07/17/2026 2:00 PM EDT Office Visit [facility] - Internal Medicine [address] [place] [phone] Ilya Gusman MD [address] [place] [phone] 07/19/2026 11:40 AM EDT Office Visit [facility] [address] [address] Yesi Perez MD 70 [place] [address] documented as of this encounter Results * [...] documented as of this encounter Care Teams Shuttle Threader Relationship Specialty Start Date End Date Ilya Gusman MD [address] [place] [phone] PCP - General 05/14/17 [facility] 09/01/25 documented as of this encounter
--- OUTSIDE RECORDS SUMMARY | 2025-10-06 22:29 | XMS_ITS | Encounter Summary ---
Author Organization [facility] ystem Address [address] [place] [address] Phone Care Team Providers Care Coal Trimmer Name Role Phone Ilya Gusman MD Primary Care Provider [phone] Encounter Details Date Type Department Care Team (Late Contact Info) Description 01/19/2019 Scanned Document [facility] - Health Information Department [address] [place] [address] Scan, No Provider Available [address] [place] [address] [place] [address] <No scans attached> Social History Tobacco Use [...] [facility] [address] [place] [phone] Ilya Gusman MD [address] [place] [phone] Christophe Dailey MD [address] [place] [phone] 01/18/2026 1:00 PM EST Office Visit [facility] [address] [place] [address] Porsha Marsh, AN/SSN [address] [place] [address] 02/22/2026 11:00 AM EDT Office Visit [facility] [address] [place] [address] [address] [place] [phone] Alonso Bae MD [address] [place] [address] [address] [place] [address] 07/17/2026 2:00 PM EDT Office Visit [facility] - Internal Medicine [address] [place] [phone] Ilya Gusman MD [address] [place] [phone] 07/19/2026 11:40 AM EDT Office Visit [facility] [address] [place] [address] Yesi Perez MD [address] [place] [address] documented as of this encounter Visit Diagnoses [...] documented as of this encounter Care Teams Coal Trimmer Relationship Specialty Start Date End Date Ilya Gusman MD [address] [place] [phone] PCP - General 05/14/17 [facility] 09/01/25 documented as of this encounter
--- OUTSIDE RECORDS SUMMARY | 2025-10-06 22:29 | XMS_ITS | Encounter Summary ---
Author Organization [facility] Address [address] [place] [address] Phone Care Team Providers Care Agriculture Laboratory Technician Name Role Phone Ilya Gusman MD Primary Care Provider [phone] Reason for Referral * Ultrasound - Closed Specialty Diagnoses / Procedures Referred By London t Referred To Contact Radiology Diagnoses Prostate cancer (CMS/HCC) Procedures Urology ultrasound prostate marker placement Alonso Bae MD [address] [place] [address] [address] [place] [address] Phone: tel: fax: Referral ID Status Reason Start Date Expiration Date Visits Re quested Visits Authorized [id number] Closed 06/12/2022 09/14/2023 1 1 Encounter Details Date Type Department Care Team ([facility] Contact Info) Description 06/12/2022 Orders Only [facility] [address] [place] [phone] Anjelica Rosario [place] Prostate cancer (CMS/HCC) (Primary [...] Upcoming Encounters Date Type Department Care Team ([facility] st Contact Info) Description 10/10/2025 10:30 AM EST Office Visit [facility] - Internal Medicine [address] [place] [phone] Ilya Gusman MD [address] [place] [phone] Christophe Dailey MD [address] [place] [phone] 01/18/2026 1:00 PM EST Office Visit [facility] [address] [address] Porsha Marsh, ENGINEERING ASSOCIATE 70 [place] [address] 02/22/2026 11:00 AM EDT Office Visit [facility] [address] [place] [phone] Alonso Bae MD [address] [place] [address] [address] [place] [address] 07/17/2026 2:00 PM EDT Office Visit [facility] - Internal Medicine [address] [place] [phone] Ilya Gusman MD 143 [place] [phone] 07/19/2026 11:40 AM EDT Office Visit [facility] [address] [address] Yesi Perez MD 70 [place] [address] documented as of this encounter Results * Urology ultrasound prostate marker placement (07/15/2022 11:45 AM EDT) Anatomical Region Laterality Modality Body Ultrasound Narrative 07/15/2022 1:06 PM EDT Prostate Diesel Engine I Pipe 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 Prostatic ultrasound with successful hand pattern marker placement was well tolerated by the patient. The patient was given strict instructions to call for fever, nausea, vomiting, flank pain, difficulties urinating, urinary frequency, or other illness. He will proceed with radiation therapy treatments as planned. us Alonso Bae MD [facility] PROCED[facility] Final Result documented in this [...] Date End Date Ilya Gusman MD [address] [place] [phone] PCP - General 05/14/17 [facility] 09/01/25 documented as of this encounter
--- OUTSIDE RECORDS SUMMARY | 2025-10-06 22:29 | XMS_ITS | Encounter Summary ---
Author Organization [facility] Address [address] [place] [address] Phone Care Team Providers Care Abrasive Sawyer Name Role Phone Ilya Gusman MD Primary Care Provider [phone] Encounter Details Date Type Department Care Team (Late st Contact Info) Description 09/24/2025 Scanned Document [facility] - Health Information Department [address] [place], [place] [phone] Scan, No Provider Available [address] [place] [address] <No scans attached> Social History Tobacco Use [...] Visit [facility] - Internal Medicine [address] [place] [phone] Ilya Gusman MD [address] [place] [phone] Christophe Dailey MD [address] [place] [phone] 01/18/2026 1:00 PM EST Office Visit [facility] [address] [address] Porsha Marsh CNP 70 [place] [address] 02/22/2026 11:00 AM EDT Office Visit [facility] [address] [place] [phone] Alonso Bae MD [address] [place] [address] 07/17/2026 2:00 PM EDT Office Visit [facility] - Internal Medicine [address] [place] [phone] Ilya Gusman MD [address] [place] [phone] 07/19/2026 11:40 AM EDT Office Visit [facility] [address] [address] Yesi Perez MD 70 [place] [address] documented as of this encounter Visit Diagnoses Not on filedocumented in this encounter Additional Health Concerns Assessment Noted Time PHQ-9 Depression Total Score: 16 025 11:49 AM EDT documented as of this encounter Care Teams Abrasive Sawyer Relationship Specialty Start Date End Date Ilya Gusman MD [address] [place] [phone] PCP - General 05/14/17 [facility] 09/01/25 documented as of this encounter
--- OUTSIDE RECORDS SUMMARY | 2025-10-06 22:29 | XMS_ITS | Encounter Summary ---
[facility] Organization [facility] Address [address] [place] [address] Phone Care Team Providers Care Production Solderer Name Role Phone Ilya Gusman MD Primary Care Provider [phone] Encounter Details Date Type Department Care Team (Late Contact Info) Description 06/25/2022 Telephone [facility] [address] [place] [phone] Janae Cody RN Social History Tobacco [...] 10:30 AM EST Office Visit [facility] - Internal Medicine [address] [place] [phone] Iyla Gusman MD [address] [place] [phone] Christophe Dailey MD [address] [place] [address] [phone] 01/18/2026 1:00 PM EST Office Visit [facility] [address] [place] [address] Porsha Marsh, DIRECTOR OF AUDIOLOGY 70 [place] [address] 02/22/2026 11:00 AM EDT Office Visit [facility] [address] [place] [address] [address] [place] [address] Alonso Bae MD [address] [place] [address] [address] [place] [address] 07/17/2026 2:00 PM EDT Office Visit [facility] - Internal Medicine [address] [place] [phone] Ilya Gusman MD [address] [place] [phone] 07/19/2026 11:40 AM EDT Office Visit [facility] [address] [place] [address] Yesi Perez MD [address] [place] [phone] documented as of this encounter Visit Diagnoses [...] documented as of this encounter Care Teams Production Solderer Relationship Specialty Start Date End Date Ilya Gusman MD [address] [place] [phone] PCP - General 05/14/17 [facility] 09/01/25 documented as of this encounter
--- OUTSIDE RECORDS SUMMARY | 2025-10-06 22:29 | XMS_ITS | Encounter Summary ---
Author Organization [facility] Address [address] [place] [address] Phone Care Team Providers Care Decision Support Manager Name Role Phone Ilya Gusman MD Primary Care Provider [phone] Reason for Visit * Reason Onset Date Comments Med Refill 12/25/2018 Encounter Details Date Type Department Care Team ([facility] Contact Info) Description 12/25/2018 Refill [facility] - Internal Medicine [address] [place] [phone] Ilya Gusman MD [address] [place] [phone] Med Refill Social History Tobacco Use [...] Description 10/10/2025 10:30 AM EST Office Visit [facility] - Internal Medicine [address] [place] [phone] Ilya Gusman MD [address] [place] [phone] Christophe Dailey MD [address] [place] [phone] 01/18/2026 1:00 PM EST Office Visit [facility] [address] [place] [address] Porsha Marsh, [address] [address] 02/22/2026 11:00 AM EDT Office Visit [facility] [address] [place] [address] [address] [place] [phone] Alonso Bae MD [address] [place] [address] [address] [place] [address] 07/17/2026 2:00 PM EDT Office Visit [facility] - Internal Medicine [address] [place] [phone] Ilya Gusman MD [address] [place] [phone] 07/19/2026 11:40 AM EDT Office Visit [facility] [address] [place] [address] Yesi Perez MD [address] [place] [address] documented as of this encounter Visit Diagnoses [...] documented as of this encounter Care Teams Decision Support Manager Relationship Specialty Start Date End Date Ilya Gusman MD [address] [place] [phone] PCP - General 05/14/17 [facility] 09/01/25 documented as of this encounter
--- OUTSIDE RECORDS SUMMARY | 2025-10-06 22:29 | XMS_ITS | Encounter Summary ---
Author Organization [facility] Address [address] [place] [address] Phone Care Team Providers Care Pig Lead Melter Helper Name Role Phone Ilya Gusman MD Primary Care Provider [phone] Encounter Details Date Type Department Care Team (Late st Contact Info) Description 09/30/2025 Scanned Document [facility] - Health Information Department 143 [place], [place] [phone] Scan, No Provider Available [address] [facility] [place] [address] <No scans attached> Social History Tobacco Use [...] Visit [facility] - Internal Medicine [address] [place] [phone] Ilya Gusman MD [address] [place] [phone] Christophe Dailey MD [address] [place] [phone] 01/18/2026 1:00 PM EST Office Visit [facility] [address] [address] Porsha Marsh CNP 70 [place] [address] 02/22/2026 11:00 AM EDT Office Visit [facility] [address] [place] [phone] Alonso Bae MD [address] [place] [address] 07/17/2026 2:00 PM EDT Office Visit [facility] - Internal Medicine [address] [place] [phone] Ilya Gusman MD [address] [place] [phone] 07/19/2026 11:40 AM EDT Office Visit [facility] [address] [address] Yesi Perez MD 70 [place] [address] documented as of this encounter Visit Diagnoses Not on filedocumented in this encounter Additional Health Concerns Assessment Noted Time PHQ-9 Depression Total Score: 16 025 11:49 AM EDT documented as of this encounter Care Teams Pig Lead Melter Helper Relationship Specialty Start Date End Date Ilya Gusman MD [address] [place] [phone] PCP - General 05/14/17 [facility] 09/01/25 documented as of this encounter
--- OUTSIDE RECORDS SUMMARY | 2025-10-06 22:29 | XMS_ITS | Encounter Summary ---
[facility] Organization [facility] Address [address] [place] [address] Phone Care Team Providers Care Drapery Hand Name Role Phone Ilya Gusman MD Primary Care Provider [phone] Reason for Referral * MRI/CAT/PET Scan - Closed Specialty Diagnoses / Procedures Referred By London t Referred To Contact Radiology Procedures CT transfer of outside films Required, No Pcp/Pcp Not [address] [place] [address] Referral ID Status Reason Start Date Expiration Date Visits Re quested Visits Authorized [id number] Closed 05/10/2022 05/11/2023 1 1 * MRI/CAT/PET Scan - Closed Specialty Diagnoses / Procedures Referred By London blankenship Referred To Contact Radiology Procedures CT transfer of outside films Required, No Pcp/Pcp Not 55 [place] [address] Referral ID Status Reason Start Date Expiration Date Visits Re quested Visits Authorized [id number] Closed 05/10/2022 05/11/2023 1 1 Encounter Details Date Type Department Care Team ([facility] Contact Info) Description 05/10/2022 Ancillary Orders [facility] - X-Ray Imaging 55 [place] [phone] Required, No Pcp/Pcp Not 55 [place] [address] Social History Tobacco Use Types Packs/Day Years [...] Visit [facility] - Internal Medicine [address] [place] [phone] Ilya Gusman MD [address] [place] [phone] Christophe Dailey MD [address] [place] [phone] 01/18/2026 1:00 PM EST Office Visit [facility] 70 [facility] 1 [place] [address] Porsha Marsh, MARILIA 70 [place] [address] 02/22/2026 11:00 AM EDT Office Visit [facility] [address] [place] [phone] Alonso Bae MD 780 [facility] [address] [place] [address] 07/17/2026 2:00 PM EDT Office Visit [facility] - Internal Medicine 143 [place] [phone] Ilya Gusman MD 143 [place] [phone] 07/19/2026 11:40 AM EDT Office Visit [facility] [address] [address] Yesi Perez MD 70 [place] [address] documented as of this encounter Results * CT transfer of outside films (05/10/2022 2:02 PM EDT) Narrative [facility] - 05/10/2022 2:02 PM EDT This order contains outside images and has been auto-finalized. us No Pcp/Pcp Not Required IMG CT PROCEDURES Final Result Performing Organization Address [facility] Co de Phone Number [facility] [address] [place] [address], [place] * CT transfer of outside films (05/10/2022 2:00 PM EDT) Narrative [facility] - 05/10/2022 2:00 PM EDT This order contains outside images and has been auto-finalized. us No Pcp/Pcp Not Required IMG CT PROCEDURES Final Result Performing Organization Address [facility]/ZIP Co de Phone Number [facility] [address] [place] [address], documented in this encounter Visit Diagnoses Not [...] documented as of this encounter Care Teams Drapery Hand Relationship Specialty Start Date End Date Ilya Gusman MD [address] [place] [phone] PCP - General 05/14/17 [facility] 09/01/25 documented as of this encounter
--- OUTSIDE RECORDS SUMMARY | 2025-10-06 22:29 | XMS_ITS | Encounter Summary ---
Author Organization [facility] Address [address] [place] [address] Phone Care Team Providers Care Professor Of Economics Name Role Phone Ilya Gusman MD Primary Care Provider [phone] Reason for Visit * Reason Onset Date Comments Med Refill 01/13/2019 Encounter Details Date Type Department Care Team (Late st Contact Info) Description 01/13/2019 Refill [facility] - Internal Medicine [address] [place] [phone] Ilya Gusman MD [address] [place] [phone] Med Refill Social History Tobacco Use [...] Functional Status documented as of this encounter Miscellaneous Notes * Telephone Encounter - Suha Rendon PhT - 01/14/2019 9:47 AM EST Oxycodone 10mg ?? Pharmacy: [facility] DATE OF LAST REFILL? 01/01/19 FREQUENCY OF [...] Luz Maria Victor PA-C KIN ENC KIN BANK GUARD reviewed on 01/14/2019 by Ian HANCOCK and reviewed & no red flags were noted Ian HANCOCK documented in this encounter Plan of Treatment Upcoming Encounters Date Type Department Care Team (Late st Contact Info) Description 10/10/2025 10:30 AM EST Office Visit [facility] - Internal Medicine [address] [place] [phone] Ilya Gusman MD [address] [place] [phone] Christophe Dailey MD [address] [place] [address] [phone] 01/18/2026 1:00 PM EST Office Visit [facility] [address] [address] Porsha Marsh, NURSING TEACHER 70 [place] [address] 02/22/2026 11:00 AM EDT Office Visit [facility] 780 [facility] [address] [place] [address] Alonso Bae MD 780 [facility] [address] [place] [address] 07/17/2026 2:00 PM EDT Office Visit [facility] - Internal Medicine 143 [place] [address] Ilya Gusman MD [address] [place] [phone] 07/19/2026 11:40 AM EDT Office Visit [facility] 70 [facility] 1 [place] [address] Yesi Perez MD 70 [place] [address] documented as of this encounter Visit Diagnoses [...] of this encounter Care Teams Professor Of Economics Relationship Specialty Start Date End Date Ilya Gusman MD [address] [place] [phone] PCP - General 05/14/17 [facility] 09/01/25 documented as of this encounter
--- OUTSIDE RECORDS SUMMARY | 2025-10-06 22:29 | XMS_ITS | Encounter Summary ---
Author Organization [facility] Address 55 [place] [address] Phone Care Team Providers Care Grease And Tallow Pumper Name Role Phone Ilya Gusman MD Primary Care Provider [phone] Reason for Visit * Reason Onset Date Comments Med Refill 02/01/2019 Encounter Details Date Type Department Care Team (Late st Contact Info) Description 02/01/2019 Refill [facility] - Internal Medicine [address] [place] [phone] Ilya Gusman MD [address] [place] [phone] Med Refill Social History Tobacco Use [...] Notes * Telephone Encounter - Luz Elena Aec PhT - 02/02/2019 10:06 AM EDT [facility] DATE OF LAST REFILL? 01/15/19 FREQUENCY OF [...] AM Ilya Gusman MD LNG IM LNG AMUSEMENT PARK WORKER reviewed on 02/02/2019 by Ian BRUMFIELD and no red flags were noted Luz Elena Sosa/[place] Refill Team, Loft documented in this encounter Plan of Treatment Upcoming Encounters Date Type Department Care Team (Late st Contact Info) Description 10/10/2025 10:30 AM EST Office Visit [facility] - Internal Medicine [address] [place] [phone] Ilya Gusman MD [address] [place] [phone] Christophe Dailey MD [address] [place] [phone] 01/18/2026 1:00 PM EST Office Visit [facility] 70 [facility] 1 [place] [address] Porsha Marsh, FILM CRITIC 70 [place] [address] 02/22/2026 11:00 AM EDT Office Visit [facility] [address] [place] [address] [address] [place] [phone] Alonso Bae MD 780 [facility] [address] [place] [address] 07/17/2026 2:00 PM EDT Office Visit [facility] - Internal Medicine [address] [place] [phone] Ilya Gusman MD [address] [place] [phone] 07/19/2026 11:40 AM EDT Office Visit [facility] [address] [address] Yesi Perez MD 70 [place] [address] documented as of this encounter Visit Diagnoses [...] as of this encounter Care Teams Grease And Tallow Pumper Relationship Specialty Start Date End Date Ilya Gusman MD [address] [place] [phone] PCP - General 05/14/17 [facility] 09/01/25 documented as of this encounter
--- OUTSIDE RECORDS SUMMARY | 2025-10-06 22:29 | XMS_ITS | Encounter Summary ---
Author Organization [facility] Address 55 [place] [address] Phone Care Team Providers Care Ribbon Lap Machine Tender Name Role Phone Ilya Gusman MD Primary Care Provider Encounter Details Date Type Department Care Team ([facility] Contact Info) Description 03/19/2022 Procedure Pass [facility] 2 [place] [phone] Social History Tobacco Use Types [...] 10/10/2025 10:30 AM EST Office Visit [facility] - Internal Medicine [address] [place] [phone] Ilya Gusman MD [address] [place] [phone] Christophe Dailey MD [address] [place] [phone] 01/18/2026 1:00 PM EST Office Visit [facility] [address] [address] Porsha Marsh CNP 70 [place] [address] 02/22/2026 11:00 AM EDT Office Visit [facility] [address] [place] [address] [address] [place] [address] Alonso Bae MD [address] [place] [address] [address] [place] [address] 07/17/2026 2:00 PM EDT Office Visit [facility] - Internal Medicine [address] [place] [phone] Ilya Gusman MD [address] [place] [phone] 07/19/2026 11:40 AM EDT Office Visit [facility] [address] [address] Yesi Perez MD 70 [place] [address] documented as of this encounter Visit Diagnoses Not on filedocumented in this encounter Additional Health Concerns Infection Onset Date Last Indicated Resolved Time Covid Possible 05/24/2022 05/24/2022 05/24/2022 4 :21 PM EDT C difficile Rule-Out 10/03/2022 10/03/2022 [...] documented as of this encounter Care Teams Ribbon Lap Machine Tender Relationship Specialty Start Date End Date Ilya Gusman MD [address] [place] [address] [phone] PCP - General 05/14/17 [facility] 09/01/25 documented as of this encounter
--- OUTSIDE RECORDS SUMMARY | 2025-10-06 22:29 | XMS_ITS | Encounter Summary ---
Author Organization [facility] Address [address] [place] [address] Phone Care Team Providers Care Shower Screen Installer Name Role Phone Ilya Gusman MD Primary Care Provider [phone] Encounter Details Date Type Department Care Team (Late st Contact Info) Description 05/16/2022 Abstract [facility] [address] [place] [address] [address] [place] [phone] Alejandro Lion MD [facility] at [address] [place] [address] Social History Tobacco Use Types Packs/Day Years [...] [facility] [address] [place] [phone] Ilya Gusman MD [address] [place] [phone] Christophe Dailey MD [address] [place] [phone] 01/18/2026 1:00 PM EST Office Visit [facility] [address] [address] Porsha Marsh, CLEANER AND TRIMMER 70 [place] [address] 02/22/2026 11:00 AM EDT Office Visit [facility] [address] [place] [address] [address] [place] [phone] Alonso Bae MD [address] [place] [address] [address] [place] [address] 07/17/2026 2:00 PM EDT Office Visit [facility] - Internal Medicine [address] [place] [phone] Ilya Gusman MD [address] [place] [phone] 07/19/2026 11:40 AM EDT Office Visit [facility] [address] [place] [address] Yesi Perez MD 70 [place] [address] documented as of this encounter Visit Diagnoses [...] documented as of this encounter Care Teams Shower Screen Installer Relationship Specialty Start Date End Date Ilya Gusman MD [address] [place] [phone] PCP - General 05/14/17 [facility] 09/01/25 documented as of this encounter
--- OUTSIDE RECORDS SUMMARY | 2025-10-06 22:29 | XMS_ITS | Encounter Summary ---
Author Organization [facility] Address [address] [place] [address] Phone Care Team Providers Care Outsole Rounder Name Role Phone Ilya Gusman MD Primary Care Provider [phone] Reason for Visit * Reason Onset Date Comments Med Refill 07/01/2022 Encounter Details Date Type Department Care Team (Late st Contact Info) Description 07/01/2022 Refill [facility] - Internal Medicine [address] [place] [address] [phone] Ilya Gusman MD [address] [place] [phone] Med Refill Social History Tobacco Use [...] Visit [facility] - [facility] Medicine [address] [place] [phone] Ilya Gusman MD [address] [place] [phone] Christophe Dailey MD [address] [place] [phone] 01/18/2026 1:00 PM EST Office Visit [facility] 70 [facility] 1 [place] [address] Porsha Marsh, OPERATIONS CHIEF 70 [place] [address] 02/22/2026 11:00 AM EDT Office Visit [facility] [address] [place] [address] [address] [place] [phone] Alonso Bae MD [address] [place] [address] [address] [place] [address] 07/17/2026 2:00 PM EDT Office Visit [facility] - Internal Medicine [address] [place] [phone] Ilya Gusman MD [address] [place] [phone] 07/19/2026 11:40 AM EDT Office Visit [facility] [address] [address] Yesi Perez MD 70 [place] [address] documented as of this encounter Visit Diagnoses [...] as of this encounter Care Teams Outsole Rounder Relationship Specialty Start Date End Date Ilya Gusman MD [address] [place] [address] [phone] PCP - General 05/14/17 [facility] 09/01/25 documented as of this encounter
--- OUTSIDE RECORDS SUMMARY | 2025-10-06 22:29 | XMS_ITS | Encounter Summary ---
Author Organization [facility] ystem Address [address] [place] [address] Phone Care Team Providers Care Chamber Walker Name Role Phone Ilya Gusman MD Primary Care Provider [phone] Encounter Details Date Type Department Care Team (Late Contact Info) Description 08/28/2019 Scanned Document [facility] - Health Information Department [address] [place] [address] Scan, No Provider Available [address] [place] [address] [place] [address] <No scans attached> Social History Tobacco Use [...] Description 10/10/2025 10:30 AM EST Office Visit [facility] - Internal Medicine [address] [place] [phone] Ilya Gusman MD [address] [place] [phone] Christophe Dailey MD [address] [place] [phone] 01/18/2026 1:00 PM EST Office Visit [facility] [address] [place] [address] Porsha Marsh, SOUND EFFECTS TECHNICIAN [address] [place] [address] 02/22/2026 11:00 AM EDT Office Visit [facility] [address] [place] [address] [address] [place] [address] Alonso Bae MD [address] [place] [address] [address] [place] [address] 07/17/2026 2:00 PM EDT Office Visit [facility] - Internal Medicine [address] [place] [phone] Ilya Gusman MD [address] [place] [phone] 07/19/2026 11:40 AM EDT Office Visit [facility] [address] [place] [address] Yesi Perez MD [address] [place] [address] documented as of this encounter Visit Diagnoses [...] documented as of this encounter Care Teams Chamber Walker Relationship Specialty Start Date End Date Ilya Gusman MD [address] [place] [address] [phone] PCP - General 05/14/17 [facility] 09/01/25 documented as of this encounter
--- OUTSIDE RECORDS SUMMARY | 2025-10-06 22:29 | XMS_ITS | Encounter Summary ---
Author Organization [facility] ystem Address [address] [place] [address] Phone Care Team Providers Care Yarn Sorter Name Role Phone Ilya Gusman MD Primary Care Provider [phone] Encounter Details Date Type Department Care Team (Late st Contact Info) Description 04/07/2025 Scanned Document [facility] - Health Information Department [address] [place], [place] [phone] Scan, No Provider Available [address] [facility] [place] [address] <No scans attached> Social History Tobacco Use [...] Visit [facility] - Internal Medicine [address] [place] [phone] Ilya Gusman MD [address] [place] [phone] Christophe Dailey MD [address] [place] [phone] 01/18/2026 1:00 PM EST Office Visit [facility] [address] [address] Porsha Marsh, STRATEGIC PROCUREMENT MANAGER 70 [place] [address] 02/22/2026 11:00 AM EDT Office Visit [facility] [address] [place] [address] [address] [place] [address] Alonso Bae MD [address] [place] [address] [address] [place] [address] 07/17/2026 2:00 PM EDT Office Visit [facility] - Internal Medicine [address] [place] [phone] Ilya Gusman MD [address] [place] [address] [phone] 07/19/2026 11:40 AM EDT Office Visit [facility] [address] [place] [address] Yesi Perez MD 70 [place] [address] documented as of this encounter Visit Diagnoses Not on filedocumented in this encounter Additional Health Concerns Assessment Noted Time PHQ-9 Depression Total Score: 6 04/28/20 24 1:53 PM EDT documented as of this encounter Care Teams Yarn Sorter Relationship Specialty Start Date End Date Ilya Gusman MD [address] [place] [address] [phone] PCP - General 05/14/17 [facility] 09/01/25 documented as of this encounter
--- OUTSIDE RECORDS SUMMARY | 2025-10-06 22:29 | XMS_ITS | Encounter Summary ---
Author Organization [facility] Address [address] [place] [address] Phone Care Team Providers Care Traveling Auditor Name Role Phone Ilya Gusman MD Primary Care Provider [phone] Reason for Visit * Reason Onset Date Comments Med Refill 12/25/2018 Encounter Details Date Type Department Care Team (Late st Contact Info) Description 12/25/2018 Refill [facility] - Internal Medicine [address] [place] [address] [phone] Christophe Dailey MD [address] [place] [phone] Med Refill Social History Tobacco Use [...] day supply. Please advise, thank you! Pharmacy: [facility] DATE OF LAST REFILL? 12/17/18 [...] Luz Maria Victor PA-C KIN ENC KIN ENVIRONMENTAL CONSULTANT reviewed on 12/28/2018 by ROBERTA GAUTHIER Rylee and no red flags were noted Roberta Gauthier [facility] Refill Team [employer] documented in this encounter Plan of Treatment Upcoming Encounters Date Type Department Care Team (Late st Contact Info) Description 10/10/2025 10:30 AM EST Office Visit [facility] - Internal Medicine [address] [place] [address] [phone] Ilya Gusman MD [address] [place] [phone] Christophe Dailey MD [address] [place] [phone] 01/18/2026 1:00 PM EST Office Visit [facility] 70 [facility] 1 [place] [address] Porsha Marsh, TINSMITH HELPER 70 [place] [address] 02/22/2026 11:00 AM EDT Office Visit [facility] [address] [place] [address] [address] [place] [phone] Alonso Bae MD [address] [place] [address] [address] [place] [address] 07/17/2026 2:00 PM EDT Office Visit [facility] - Internal Medicine [address] [place] [phone] Ilya Gusman MD [address] [place] [phone] 07/19/2026 11:40 AM EDT Office Visit [facility] [address] [place] [address] Yesi Perez MD [address] [place] [address] documented as of this encounter Visit Diagnoses [...] as of this encounter Care Teams Traveling Auditor Relationship Specialty Start Date End Date Ilya Gusman MD [address] [place] [phone] PCP - General 05/14/17 [facility] 09/01/25 documented as of this encounter
--- OUTSIDE RECORDS SUMMARY | 2025-10-06 22:29 | XMS_ITS | Encounter Summary ---
Author Organization [facility] Address [address] [place] [address] Phone Care Team Providers Care Stitching Machine Feeder Or Offbearer Name Role Phone Ilya Gusman MD Primary Care Provider [phone] Encounter Details Date Type Department Care Team (Late Contact Info) Description 11/25/2018 Orders Only [facility] - Internal Medicine [address] [place] [phone] Diana Blas [place] Social History Tobacco Use [...] [facility] [address] [place] [phone] Ilya Gusman MD [address] [place] [phone] Christophe Dailey MD [address] [place] [phone] 01/18/2026 1:00 PM EST Office Visit [facility] [address] [place] [address] Porsha Marsh, MOLD PULLER 70 [place] [address] 02/22/2026 11:00 AM EDT Office Visit [facility] [address] [place] [address] [address] [place] [phone] Alonso Bae MD [address] [place] [address] 2 [place] [address] 07/17/2026 2:00 PM EDT Office Visit [facility] - Internal Medicine [address] [place] [phone] Ilya Gusman MD [address] [place] [phone] 07/19/2026 11:40 AM EDT Office Visit [facility] [address] [place] [address] Yesi Perez MD [address] [place] [address] documented as of this encounter Visit Diagnoses [...] documented as of this encounter Care Teams Stitching Machine Feeder Or Offbearer Relationship Specialty Start Date End Date Ilya Gusman MD [address] [place] [address] [phone] PCP - General 05/14/17 [facility] 09/01/25 documented as of this encounter
--- OUTSIDE RECORDS SUMMARY | 2025-10-06 22:29 | XMS_ITS | Encounter Summary ---
Author Organization [facility] Address [address] [place] [address] Phone Care Team Providers Care Health Nurse Name Role Phone Ilya Gusman MD Primary Care Provider [phone] Reason for Visit * Reason Onset Date Comments Med Refill 10/06/2025 Encounter Details Date Type Department Care Team (Late st Contact Info) Description 10/06/2025 Refill [facility] - Internal Medicine [address] [place] [phone] Ilya Gusman MD [address] [place] [phone] Med Refill Social History Tobacco Use [...] Roberta Ardon MA documented in this encounter Miscellaneous Notes * Telephone Encounter - Lulu Gan PhT - 10/06/2025 12:12 PM EST Pt calling requesting refill: Dilaudid 8 mg #84 Pharmacy: [facility] DATE OF LAST REFILL? 09/09/25 FREQUENCY OF REFILLS? 28 days DATE REFILL IS DUE? *10/07/25* IS THIS AN EARLY REFILL? No Last Urine Drug Screen date: 08/06/2021 Last Opioid Treatment Agreement date: 09/25/2018 DATE OF LAST OFFICE VISIT: 10/05/25 W/PCP DATE OF NEXT OFFICE VISIT: Future Appointments Date Time Provider Department Center 10/10/2025 10:30 AM Christophe Dailey MD [facility] IM [facility] 01/18/2026 1:00 PM Porsha Marsh CNP [facility] SS Card [facility] 02/22/2026 11:00 AM Alonso Bae MD [facility] URO [facility] 07/17/2026 2:00 PM Ilya Gusman MD [facility] 07/19/2026 11:40 AM Yesi Perez MD [facility] SS Card [facility] VACUUM DRIER OPERATOR reviewed on 10/06/2025 by Ian BALDWIN and no red flags were noted documented in this encounter Plan of Treatment Upcoming Encounters Date Type Department Care Team (Late st Contact Info) Description 10/10/2025 10:30 AM EST Office Visit [facility] - Internal Medicine [address] [place] [phone] Ilya Gusman MD [address] [place] [address] [phone] Christophe Dailey MD [address] [place] [address] [phone] 01/18/2026 1:00 PM EST Office Visit [facility] 70 [facility] 1 [place] [address] Porsha Marsh, MARILIA 70 [place] [address] 02/22/2026 11:00 AM EDT Office Visit [facility] [address] [place] [address] [address] [place] [phone] Alonso Bae MD [address] [place] [address] [address] [place] [address] 07/17/2026 2:00 PM EDT Office Visit [facility] - Internal Medicine 143 [place] [phone] Ilya Gusman MD [address] [place] [phone] 07/19/2026 11:40 AM EDT Office Visit [facility] [address] [address] Yesi Perez MD 70 [place] [address] documented as of this encounter Visit Diagnoses Diagnosis Chronic low back pain, unspecified back pain laterality, unspecified whether sciatica present Chronic pain syndrome documented in this encounter Additional Health Concerns Assessment Noted Time PHQ-9 Depression Total Score: 16 025 11:49 AM EDT documented as of this encounter Care Teams Health Nurse Relationship Specialty Start Date End Date Ilya Gusman MD [address] [place] [phone] PCP - General 05/14/17 [facility] 09/01/25 documented as of this encounter
--- OUTSIDE RECORDS SUMMARY | 2025-10-06 22:29 | XMS_ITS | Encounter Summary ---
Author Organization [facility] ystem Address [address] [place] [address] Phone Care Team Providers Care Retail District Manager Name Role Phone Ilya Gusman MD Primary Care Provider [phone] Encounter Details Date Type Department Care Team (Late Contact Info) Description 06/24/2022 Scanned Document [facility] - Health Information Department 143 [place], [place] [phone] Scan, No Provider Available [address] [place] [address] [place] [address] <No scans attached> Social History Tobacco Use [...] [facility] - Internal Medicine [address] [place] [phone] Ilya Gusman MD [address] [place] [phone] Christophe Dailey MD [address] [place] [phone] 01/18/2026 1:00 PM EST Office Visit [facility] [address] [place] [address] Porsha Marsh, MARILIA [address] [place] [address] 02/22/2026 11:00 AM EDT Office Visit [facility] [address] [place] [address] [address] [place] [address] Alonso Bae MD [address] [place] [address] [address] [place] [address] 07/17/2026 2:00 PM EDT Office Visit [facility] - Internal Medicine [address] [place] [phone] Ilya Gusman MD [address] [place] [phone] 07/19/2026 11:40 AM EDT Office Visit [facility] [address] [place] [address] Yesi Perez MD [address] [place] [address] documented as of this encounter Visit Diagnoses [...] as of this encounter Care Teams Retail District Manager Relationship Specialty Start Date End Date Ilya Gusman MD [address] [place] [phone] PCP - General 05/14/17 [facility] 09/01/25 documented as of this encounter
--- OUTSIDE RECORDS SUMMARY | 2025-10-06 22:29 | XMS_ITS | Encounter Summary ---
Author Organization [facility] ystem Address [address] [place] [address] Phone Care Team Providers Care Planisher Name Role Phone Ilya Gusman MD Primary Care Provider [phone] Encounter Details Date Type Department Care Team (Late st Contact Info) Description 04/08/2025 Scanned Document [facility] - Health Information Department 143 [place], [place] [phone] Scan, No Provider Available [address] [facility] [place] [address] <No scans attached> Social History Tobacco Use [...] [facility] - Internal Medicine [address] [place] [phone] Ilya Gusman MD [address] [place] [phone] Christophe Dailey MD [address] [place] [phone] 01/18/2026 1:00 PM EST Office Visit [facility] [address] [address] Porsha Marsh, PIANO MECHANIC 70 [place] [address] 02/22/2026 11:00 AM EDT Office Visit [facility] [address] [place] [address] [address] [place] [address] Alonso Bae MD [address] [place] [address] [address] [place] [address] 07/17/2026 2:00 PM EDT Office Visit [facility] - Internal Medicine [address] [place] [phone] Ilya Gusman MD [address] [place] [phone] 07/19/2026 11:40 AM EDT Office Visit [facility] [address] [place] [address] Yesi Perez MD 70 [place] [address] documented as of this encounter Visit Diagnoses Not on filedocumented in this encounter Additional Health Concerns Assessment Noted Time PHQ-9 Depression Total Score: 6 04/28/20 24 1:53 PM EDT documented as of this encounter Care Teams Planisher Relationship Specialty Start Date End Date Ilya Gusman MD [address] [place] [address] [phone] PCP - General 05/14/17 [facility] 09/01/25 documented as of this encounter
--- OUTSIDE RECORDS SUMMARY | 2025-10-06 22:29 | XMS_ITS | Encounter Summary ---
Author Organization [facility] Address [address] [place] [address] Phone Care Team Providers Care Linker Up Name Role Phone Ilya Gusman MD Primary Care Provider [phone] Encounter Details Date Type Department Care Team (Late Contact Info) Description 11/28/2018 Orders Only [facility] - Urgent Care [address] [place] [phone] Miracle Verma [place] Fever, unspecified fever [...] Visit [facility] - Internal Medicine [address] [place] [phone] Ilya Gusman MD [address] [place] [phone] Christophe Dailey MD [address] [place] [phone] 01/18/2026 1:00 PM EST Office Visit [facility] [address] [place] [address] Porsha Marsh, WEBSITE/BLOG EDITOR [address] [place] [address] 02/22/2026 11:00 AM EDT Office Visit [facility] [address] [place] [address] [address] [place] [phone] Alonso Bae MD [address] [place] [address] [address] [place] [address] 07/17/2026 2:00 PM EDT Office Visit [facility] - Internal Medicine [address] [place] [phone] Ilya Gusman MD [address] [place] [phone] 07/19/2026 11:40 AM EDT Office Visit [facility] [address] [place] [address] Yesi Perez MD [address] [place] [address] Scheduled Orders Name Type Priority Associated Diagnoses [...] documented as of this encounter Care Teams Linker Up Relationship Specialty Start Date End Date Ilya Gusman MD [address] [place] [phone] PCP - General 05/14/17 [facility] 09/01/25 documented as of this encounter
--- OUTSIDE RECORDS SUMMARY | 2025-10-06 22:30 | XMS_ITS | Encounter Summary ---
Author Organization [facility] ystem Address [address] [place] [address] Phone Care Team Providers Care Supervisor Inventory Merchandising Name Role Phone Ilya Gusman MD Primary Care Provider [phone] Encounter Details Date Type Department Care Team (Late Contact Info) Description 01/05/2022 Scanned Document [facility] - Health Information Department 143 [place], [place] [phone] Scan, No Provider Available [address] [place] [address] [place] [address] <No scans attached> Social History Tobacco Use [...] [facility] - Internal Medicine [address] [place] [phone] Ilya Gusman MD [address] [place] [phone] Christophe Dailey MD [address] [place] [phone] 01/18/2026 1:00 PM EST Office Visit [facility] [address] [place] [address] Porsha Marsh, MARILIA [address] [place] [address] 02/22/2026 11:00 AM EDT Office Visit [facility] [address] [place] [address] [address] [place] [address] Alonso Bae MD [address] [place] [address] [address] [place] [address] 07/17/2026 2:00 PM EDT Office Visit [facility] - Internal Medicine [address] [place] [phone] Ilya Gusman MD [address] [place] [phone] 07/19/2026 11:40 AM EDT Office Visit [facility] [address] [place] [address] Yesi Perez MD [address] [place] [address] documented as of this encounter Visit Diagnoses [...] as of this encounter Care Teams Supervisor Inventory Merchandising Relationship Specialty Start Date End Date Ilya Gusman MD [address] [place] [phone] PCP - General 05/14/17 [facility] 09/01/25 documented as of this encounter
--- OUTSIDE RECORDS SUMMARY | 2025-10-06 22:30 | XMS_ITS | Encounter Summary ---
Author Organization [facility] ystem Address [address] [place] [address] Phone Care Team Providers Care Power Shovel Mechanic Name Role Phone Ilya Gusman MD Primary Care Provider [phone] Encounter Details Date Type Department Care Team (Late Contact Info) Description 01/09/2022 Orders Only [facility] - Health Information Department 143 [place] [address] Scan, No Provider Available [address] [place] [address] Social History Tobacco Use Types Packs/Day Years [...] [facility] [address] [place] [phone] Ilya Gusman MD [address] [place] [phone] Christophe Dailey MD [address] [place] [phone] 01/18/2026 1:00 PM EST Office Visit [facility] [address] [place] [address] Porsha Marsh, MARILIA [address] [place] [address] 02/22/2026 11:00 AM EDT Office Visit [facility] [address] [place] [address] [address] [place] [phone] Alonso Bae MD [address] [place] [address] [address] [place] [address] 07/17/2026 2:00 PM EDT Office Visit [facility] - Internal Medicine [address] [place] [phone] Ilya Gusman MD [address] [place] [phone] 07/19/2026 11:40 AM EDT Office Visit [facility] [address] [place] [address] Yesi Perez MD [address] [place] [address] documented as of this encounter Procedures [...] Negative Not Detected, Negative, Non-reacti ve [facility]: [facility] Nasopharyngeal (Nasopharynx) Historical Provider MD LAB MICROBIOLOGY - GENERA L ORDERABLES Final Result ACC: [address] [address], [place] [phone] * X-ray chest 1 view (01/05/2022) Anatomical [...] documented as of this encounter Care Teams Power Shovel Mechanic Relationship Specialty Start Date End Date Ilya Gusman MD [address] [place] [phone] PCP - General 05/14/17 [facility] 09/01/25 documented as of this encounter
--- OUTSIDE RECORDS SUMMARY | 2025-10-06 22:30 | XMS_ITS | Encounter Summary ---
Author Organization [facility] Address [address] [place] [address] Phone Care Team Providers Care Hot Knife Foxing Cutter Name Role Phone Ilya Gusman MD Primary Care Provider [phone] Reason for Visit * Reason Comments Med Refill Encounter Details Date Type Department Care Team (Late Contact Info) Description 01/28/2025 Refill [facility] - Internal Medicine [address] [place] [address] [phone] Ilya Gusman MD [address] [place] [phone] Med Refill Social History Tobacco Use [...] Visit [facility] [address] [place] [phone] Ilya Gusman MD [address] [place] [phone] Christophe Dailey MD [address] [place] [address] [phone] 01/18/2026 1:00 PM EST Office Visit [facility] [address] [place] [address] Porsha Marsh, AIRPLANE DISPATCHER 70 [place] [address] 02/22/2026 11:00 AM EDT Office Visit [facility] [address] [place] [address] [address] [place] [phone] Alonso Bae MD [address] [place] [address] [address] [place] [address] 07/17/2026 2:00 PM EDT Office Visit [facility] - Internal Medicine [address] [place] [phone] Ilya Gusman MD [address] [place] [phone] 07/19/2026 11:40 AM EDT Office Visit [facility] [address] [address] Yesi Perez MD 70 [place] [address] documented as of this encounter Visit Diagnoses Not on filedocumented in this encounter Additional Health Concerns Assessment Noted Time PHQ-9 Depression Total Score: 6 04/28/20 24 1:53 PM EDT documented as of this encounter Care Teams Hot Knife Foxing Cutter Relationship Specialty Start Date End Date Ilya Gusman MD [address] [place] [address] [phone] PCP - General 05/14/17 [facility] 09/01/25 documented as of this encounter
--- OUTSIDE RECORDS SUMMARY | 2025-10-06 22:30 | XMS_ITS | Encounter Summary ---
Author Organization [facility] Address [address] [place] [address] Phone Care Team Providers Care Dance Teacher Name Role Phone Ilya Gusman MD Primary Care Provider [phone] Reason for Visit * Reason Onset Date Comments Med Refill 11/08/2018 Med Refill 11/10/2018 Encounter Details Date Type Department Care Team ([facility] Contact Info) Description 11/08/2018 Refill [facility] - Internal Medicine [address] [place] [phone] Ilya Gusman MD [address] [place] [phone] Med Refill; Med Refill Social History [...] [facility] - Internal Medicine [address] [place] [phone] Ilya Gusman MD [address] [place] [phone] Christophe Dailey MD [address] [place] [phone] 01/18/2026 1:00 PM EST Office Visit [facility] [address] [address] Porsha Marsh CNP 70 [place] [address] 02/22/2026 11:00 AM EDT Office Visit [facility] [address] [place] [address] [address] [place] [phone] Alonso Bae MD [address] [place] [address] [address] [place] [address] 07/17/2026 2:00 PM EDT Office Visit [facility] - Internal Medicine [address] [place] [phone] Ilya Gusman MD [address] [place] [phone] 07/19/2026 11:40 AM EDT Office Visit [facility] [address] [address] Yesi Perez MD 70 [place] [address] documented as of this encounter Visit Diagnoses [...] documented as of this encounter Care Teams Dance Teacher Relationship Specialty Start Date End Date Ilya Gusman MD [address] [place] [phone] PCP - General 05/14/17 [facility] 09/01/25 documented as of this encounter
--- OUTSIDE RECORDS SUMMARY | 2025-10-06 22:30 | XMS_ITS | Encounter Summary ---
Author Organization [facility] Address [address] [place] [address] Phone Care Team Providers Care Quality Analyst/Technical Writer Name Role Phone Ilya Gusman MD Primary Care Provider [phone] Reason for Visit * Reason Onset Date Comments Med Refill 01/28/2022 Encounter Details Date Type Department Care Team (Late st Contact Info) Description 01/28/2022 Refill [facility] - Internal Medicine [address] [place] [address] [phone] Ilya Gusman MD [address] [place] [phone] Med Refill Social History Tobacco Use [...] [facility] - Internal Medicine [address] [place] [phone] Ilya Gusman MD [address] [place] [phone] Christophe Dailey MD [address] [place] [phone] 01/18/2026 1:00 PM EST Office Visit [facility] 70 [facility] [address] [place] [address] Porsha Marsh, CERTIFIED SCRUM MASTER 70 [place] [address] 02/22/2026 11:00 AM EDT Office Visit [facility] [address] [place] [phone] Alonso Bae MD [facility] Main [employer] [address] [place] [address] 07/17/2026 2:00 PM EDT Office Visit [facility] - Internal Medicine [address] [place] [phone] Ilya Gusman MD [address] [place] [phone] 07/19/2026 11:40 AM EDT Office Visit [facility] [address] [address] Yesi Perez MD 70 [place] [address] documented as of this encounter Visit Diagnoses [...] documented as of this encounter Care Teams Quality Analyst/Technical Writer Relationship Specialty Start Date End Date Ilya Gusman MD [address] [place] [address] [phone] PCP - General 05/14/17 [facility] 09/01/25 documented as of this encounter
--- OUTSIDE RECORDS SUMMARY | 2025-10-06 22:30 | XMS_ITS | Encounter Summary ---
Author Organization [facility] Address [address] [place] [address] Phone Care Team Providers Care Lead Ramp Agent Name Role Phone Ilya Gusman MD Primary Care Provider [phone] Reason for Visit * Reason Comments Med Refill Encounter Details Date Type Department Care Team (Late Contact Info) Description 01/19/2025 Refill [facility] - Internal Medicine [address] [place] [phone] Ilya Gusman MD [address] [place] [phone] Med Refill Social History Tobacco Use [...] [facility] - Internal Medicine [address] [place] [phone] Ilya Gusman MD [address] [place] [phone] Christophe Dailey MD [address] [place] [phone] 01/18/2026 1:00 PM EST Office Visit [facility] [address] [place] [address] Porsha Marsh, ELECTRICAL INSTALLATION INSPECTOR [address] [place] [address] 02/22/2026 11:00 AM EDT Office Visit [facility] [address] [place] [address] [address] [place] [address] Alonso Bae MD [address] [place] [address] [address] [place] [address] 07/17/2026 2:00 PM EDT Office Visit [facility] - Internal Medicine [address] [place] [address] [phone] Ilya Gusman MD [address] [place] [phone] 07/19/2026 11:40 AM EDT Office Visit [facility] [address] [place] [address] Yesi Perez MD [address] [place] [address] documented as of this encounter Visit Diagnoses Not on filedocumented in this encounter Additional Health Concerns Assessment Noted Time PHQ-9 Depression Total Score: 6 04/28/20 24 1:53 PM EDT documented as of this encounter Care Teams Lead Ramp Agent Relationship Specialty Start Date End Date Ilya Gusman MD [address] [place] [phone] PCP - General 05/14/17 [facility] 09/01/25 documented as of this encounter
--- OUTSIDE RECORDS SUMMARY | 2025-10-06 22:30 | XMS_ITS | Encounter Summary ---
Author Organization [facility] Address [address] [place] [address] Phone Care Team Providers Care Plant Operations Coordinator Name Role Phone Ilya Gusman MD Primary Care Provider [phone] Reason for Visit * Reason Onset Date Comments Med Refill 01/01/2022 Med Refill 01/03/2022 Encounter Details Date Type Department Care Team (Late st Contact Info) Description 01/01/2022 Refill [facility] - Internal Medicine [address] [place] [phone] Christophe Dailey MD [address] [place] [phone] Med Refill; Med Refill Social History [...] this med was refused. Thanks Kristina Schneider [facility] Refill Team [employer] * Telephone Encounter - Kristina Schneider PhT - 01/02/2022 8:45 AM EST Refill Hydromorphone 4mg #84 DEVELOPMENT ENG LOCATION: [facility] DATE OF LAST REFILL? 12/19/21 FREQUENCY OF [...] AM Ilya Gusman MD LNG IM LNG AUTO MACHINIST reviewed on 01/02/2022 by Ian BARNETT and no red flags were noted documented in this encounter Plan of Treatment Upcoming Encounters Date Type Department Care Team (Late st Contact Info) Description 10/10/2025 10:30 AM EST Office Visit [facility] - Internal Medicine [address] [place] [address] [phone] Ilya Gusman MD [address] [place] [phone] Christophe Dailey MD [address] [place] [phone] 01/18/2026 1:00 PM EST Office Visit [facility] [address] [place] [address] Porsha Marsh, MASON APPRENTICE 70 [place] [address] 02/22/2026 11:00 AM EDT Office Visit [facility] [address] [place] [address] [address] [place] [phone] Alonso Bae MD [address] [place] [address] 2 [place] [address] 07/17/2026 2:00 PM EDT Office Visit [facility] - Internal Medicine [address] [place] [phone] Ilya Gusman MD [address] [place] [phone] 07/19/2026 11:40 AM EDT Office Visit [facility] [address] [place] [address] Yesi Perez MD 70 [place] [address] documented as of this encounter Visit Diagnoses [...] documented as of this encounter Care Teams Plant Operations Coordinator Relationship Specialty Start Date End Date Ilya Gusman MD [address] [place] [address] [phone] PCP - General 05/14/17 [facility] 09/01/25 documented as of this encounter
--- OUTSIDE RECORDS SUMMARY | 2025-10-06 22:30 | XMS_ITS | Encounter Summary ---
Author Organization [facility] Address [address] [place] [address] Phone Care Team Providers Care Forming Machine Upkeep Mechanic Name Role Phone Ilya Gusman MD Primary Care Provider [phone] Encounter Details Date Type Department Care Team (Late st Contact Info) Description 10/04/2025 Orders Only [facility] - Health Information Department [address] [place], [place] [phone] Scan, No Provider Available [address] [facility] [place] [address] Social History Tobacco Use Types Packs/Day Years [...] Description 10/10/2025 10:30 AM EST Office Visit [facility] - Internal Medicine [address] [place] [phone] Ilya Gusman MD [address] [place] [phone] Christophe Dailey MD [address] [place] [address] [phone] 01/18/2026 1:00 PM EST Office Visit [facility] [address] [facility] 1 [place] [address] Porsha Marsh CNP 70 [place] [address] 02/22/2026 11:00 AM EDT Office Visit [facility] [address] [place] [address] ST[address] [place] [phone] Alonso Bae MD [facility] Main [place] [address] [place] [address] 07/17/2026 2:00 PM EDT Office Visit [facility] - Internal Medicine [address] [place] [phone] Ilya Gusman MD [address] [place] [address] [phone] 07/19/2026 11:40 AM EDT Office Visit [facility] [address] [address] Yesi Perez MD 70 [place] [address] documented as of this encounter Procedures Procedure Name Priority Date/Time Associated Diagnosis Comments ECG 12-LEAD Today 09/26/2025 9:28 AM EST XR CHEST 2 VW Routine 09/25/2025 10:13 AM EST documented in this encounter Results * ECG (09/26/2025 9:28 AM EST) us No Provider Available Scan ECG ORDERABLES Final Result * X-ray chest 2 views (09/25/2025 10:13 AM EST) Anatomical Region Laterality Modality Body Radiographic Carmelina ging us No Provider Available Scan IMG XR PROCEDURES Fin al Result documented in this encounter Visit Diagnoses Not on filedocumented in this encounter Additional Health Concerns Assessment Noted Time PHQ-9 Depression Total Score: 16 025 11:49 AM EDT documented as of this encounter Care Teams Forming Machine Upkeep Mechanic Relationship Specialty Start Date End Date Ilya Gusman MD [address] [place] [address] [phone] PCP - General 05/14/17 [facility] 09/01/25 documented as of this encounter
--- OUTSIDE RECORDS SUMMARY | 2025-10-06 22:30 | XMS_ITS | Encounter Summary ---
Author Organization [facility] Address [address] [place] [address] Phone Care Team Providers Care Fixture Relamper Name Role Phone Ilya Gusman MD Primary Care Provider [phone] Encounter Details Date Type Department Care Team (Late Contact Info) Description 11/10/2018 Procedure Pass [facility] - Day Surgery 2 [place] [address] Social History Tobacco Use Types [...] Team ([facility] Contact Info) Description 10/10/2025 10:30 AM EST Office Visit [facility] - Internal Medicine [address] [place] [phone] Ilya Gusman MD [address] [place] [phone] Christophe Dailey MD [address] [place] [phone] 01/18/2026 1:00 PM EST Office Visit [facility] [address] [place] [address] Porsha Marsh, GRANITE SANDBLASTER APPRENTICE 70 [place] [address] 02/22/2026 11:00 AM EDT Office Visit [facility] [address] [place] [address] [address] [place] [phone] Alonso Bae MD [address] [place] [address] [address] [place] [address] 07/17/2026 2:00 PM EDT Office Visit [facility] - Internal Medicine [address] [place] [phone] Ilya Gusman MD [address] [place] [address] [phone] 07/19/2026 11:40 AM EDT Office Visit [facility] [address] [place] [address] Yesi Perez MD [address] [place] [address] documented as of this encounter Visit Diagnoses [...] documented as of this encounter Care Teams Fixture Relamper Relationship Specialty Start Date End Date Ilya Gusman MD [address] [place] [address] [phone] PCP - General 05/14/17 [facility] 09/01/25 documented as of this encounter
--- OUTSIDE RECORDS SUMMARY | 2025-10-06 22:30 | XMS_ITS | Encounter Summary ---
Author Organization [facility] Address [address] [place] [address] Phone Care Team Providers Care Mining Engineer Name Role Phone Ilya Gusman MD Primary Care Provider [phone] Encounter Details Date Type Department Care Team (Late st Contact Info) Description 01/24/2022 Orders Only [facility] [address] [place] [phone] Alonso Bae MD [address] [place] [address] Elevated PSA Social History Tobacco Use Types [...] EST Office Visit [facility] [place] - Internal Medicine [address] [place] [phone] Ilya Gusman MD [address] [place] [phone] Christophe Dailey MD [address] [place] [phone] 01/18/2026 1:00 PM EST Office Visit [facility] [address] [place] [address] Porsha Marsh, MORTGAGE PROFESSIONAL 70 [place] [address] 02/22/2026 11:00 AM EDT Office Visit [facility] [address] [place] [address] [address] [place] [phone] Alonso Bae MD [address] [place] [address] [address] [place] [address] 07/17/2026 2:00 PM EDT Office Visit [facility] - Internal Medicine [address] [place] [phone] Ilya Gusman MD [address] [place] [phone] 07/19/2026 11:40 AM EDT Office Visit [facility] [address] [place] [address] Yesi Perez MD 70 [place] [address] documented as of this encounter Procedures Procedure Name Priority Date/Time Associated Diagnosis Comments MRI PROSTATE W WO CONTRAST Routine 01/24/2022 4:07 PM EST Elevated PSA documented in this encounter Results * MRI prostate with and without contrast - [facility] - External (01/24/2022 4:07 PM EST) Anatomical Region Laterality Modality Body Magnetic Resonan ce Alonso Bae MD [facility] MRI PROCEDURES Final Result documented in this [...] as of this encounter Care Teams Mining Engineer Relationship Specialty Start Date End Date Ilya Gusman MD [address] [place] [phone] PCP - General 05/14/17 [facility] 09/01/25 documented as of this encounter
--- OUTSIDE RECORDS SUMMARY | 2025-10-06 22:30 | XMS_ITS | Encounter Summary ---
Author Organization [facility] Address [address] [place] [address] Phone Care Team Providers Care Heel Sewer Name Role Phone Ilya Gusman MD Primary Care Provider [phone] Encounter Details Date Type Department Care Team ([facility] Contact Info) Description 08/27/2024 Orders Only [facility] - Health Information Department [address] [place] [address] Scan, No Provider Available [address] [place] [address] [address]. [place]azar [place] [phone] Social History Tobacco Use Types Packs/Day Years [...] Visit [facility] - Internal Medicine [address] [place] [phone] Ilya Gusman MD [address] [place] [phone] Christophe Dailey MD [address] [place] [address] [phone] 01/18/2026 1:00 PM EST Office Visit [facility] [address] [place] [address] Porsha Marsh, MANNEQUIN DECORATOR [address] [place] [address] 02/22/2026 11:00 AM EDT Office Visit [facility] [address] [place] [address] [address] [place] [phone] Alonso Bae MD [address] [place] [address] [address] [place] [address] 07/17/2026 2:00 PM EDT Office Visit [facility] - Internal Medicine [address] [place] [phone] Ilya Gusman MD [address] [place] [address] [phone] 07/19/2026 11:40 AM EDT Office Visit [facility] [address] [place] [address] Yesi Perez MD [address] [place] [address] documented as of this encounter Procedures Procedure [...] documented as of this encounter Care Teams Heel Sewer Relationship Specialty Start Date End Date Ilya Gusman MD [address] [place] [place] [address] [phone] PCP - General 05/14/17 [facility] 09/01/25 documented as of this encounter
--- OUTSIDE RECORDS SUMMARY | 2025-10-06 22:30 | XMS_ITS | Encounter Summary ---
Author Organization [facility] Address [address] [place] [address] Phone Care Team Providers Care Nurse Sexual Assault Name Role Phone Ilya Gusman MD Primary Care Provider [phone] Encounter Details Date Type Department Care Team (Late Contact Info) Description 02/10/2025 Scanned Document [facility] - Health Information Department [address] [place] [address] Scan, No Provider Available [address] [place] [address] [place] [address] <No scans attached> Social History Tobacco Use [...] [facility] [place] Contact Info) Description 10/10/2025 10:30 AM EST Office Visit [facility] - Internal Medicine [address] [place] [phone] Ilya Gusman MD [address] [place] [phone] Christophe Dailey MD [address] [place] [address] [phone] 01/18/2026 1:00 PM EST Office Visit [facility] [address] [place] [address] Porsha Marsh, DRY PLASTERER [address] [place] [address] 02/22/2026 11:00 AM EDT Office Visit [facility] [address] [place] [address] [address] [place] [phone] Alonso Bae MD [address] [place] [address] [address] [place] [address] 07/17/2026 2:00 PM EDT Office Visit [facility] - Internal Medicine [address] [place] [phone] Ilya Gusman MD [address] [place] [phone] 07/19/2026 11:40 AM EDT Office Visit [facility] [address] [place] [address] Yesi Perez MD [address] [place] [address] documented as of this encounter Visit Diagnoses Not on filedocumented in this encounter Additional Health Concerns Assessment Noted Time PHQ-9 Depression Total Score: 6 04/28/20 24 1:53 PM EDT documented as of this encounter Care Teams Nurse Sexual Assault Relationship Specialty Start Date End Date Ilya Gusman MD [address] [place] [phone] PCP - General 05/14/17 [facility] 09/01/25 documented as of this encounter
--- OUTSIDE RECORDS SUMMARY | 2025-10-06 22:30 | XMS_ITS | Encounter Summary ---
Author Organization [facility] Address [address] [place] [address] Phone Care Team Providers Care Production Service Manager Name Role Phone Ilya Gusman MD Primary Care Provider [phone] Encounter Details Date Type Department Care Team (Late Contact Info) Description 12/17/2024 Scanned Document [facility] - Health Information Department [address] [place] [phone] Scan, No Provider Available [address] [place] [address] [place] [address] <No scans attached> Social History Tobacco Use [...] Upcoming Encounters Date Type Department Care Team ([facility] Contact Info) Description 10/10/2025 10:30 AM EST Office Visit [facility] - Internal Medicine [address] [place] [phone] Ilya Gusman MD [address] [place] [phone] Christophe Dailey MD [address] [place] [address] [phone] 01/18/2026 1:00 PM EST Office Visit [facility] [address] [place] [address] Porsha Marsh, OYSTER PICKER [address] [place] [address] 02/22/2026 11:00 AM EDT Office Visit [facility] [address] [place] [address] [address] [place] [phone] Alonso Bae MD [address] [place] [address] [address] [place] [address] 07/17/2026 2:00 PM EDT Office Visit [facility] - Internal Medicine [address] [place] [phone] Ilya Gusman MD [address] [place] [phone] 07/19/2026 11:40 AM EDT Office Visit [facility] [address] [place] [address] Yesi Perez MD [address] [place] [address] documented as of this encounter Visit Diagnoses Not on filedocumented in this encounter Additional Health Concerns Assessment Noted Time PHQ-9 Depression Total Score: 6 04/28/20 24 1:53 PM EDT documented as of this encounter Care Teams Production Service Manager Relationship Specialty Start Date End Date Ilya Gusman MD [address] [place] [phone] PCP - General 05/14/17 [facility] 09/01/25 documented as of this encounter
--- OUTSIDE RECORDS SUMMARY | 2025-10-06 22:30 | XMS_ITS | Encounter Summary ---
Author Organization [facility] ystem Address [address] [place] [address] Phone Care Team Providers Care Injection Maintenance Technician Name Role Phone Ilya Gusman MD Primary Care Provider [phone] Encounter Details Date Type Department Care Team (Late st Contact Info) Description 02/11/2022 Orders Only [facility] [address] [place] [address] [address] [place] [address] Trisha Naidu MA Social History [...] Visit [facility] - Internal Medicine [address] [place] [phone] Ilya Gusman MD [address] [place] [phone] Christophe Dailey MD [address] [place] [phone] 01/18/2026 1:00 PM EST Office Visit [facility] [address] [address] Porsha Marsh, MARILIA 70 [place] [address] 02/22/2026 11:00 AM EDT Office Visit [facility] [address] [place] [address] [address] [place] [address] Alonso Bae MD [address] [place] [address] [address] [place] [address] 07/17/2026 2:00 PM EDT Office Visit [facility] - Internal Medicine [address] [place] [phone] Ilya Gusman MD [address] [place] [address] [phone] 07/19/2026 11:40 AM EDT Office Visit [facility] [address] [address] Yesi Perez MD 70 [place] [address] documented as of this encounter Visit Diagnoses [...] documented as of this encounter Care Teams Injection Maintenance Technician Relationship Specialty Start Date End Date Ilya Gusman MD [address] [place] [address] [phone] PCP - General 05/14/17 [facility] 09/01/25 documented as of this encounter
--- OUTSIDE RECORDS SUMMARY | 2025-10-06 22:30 | XMS_ITS | Encounter Summary ---
Author Organization [facility] ystem Address 55 [place] [address] Phone Care Team Providers Care Highway Worker Name Role Phone Ilya Gusman MD Primary Care Provider [phone] Encounter Details Date Type Department Care Team (Late st Contact Info) Description 09/22/2025 Scanned Document [facility] - Health Information Department [address] [place], [place] [phone] Scan, No Provider Available [address] [facility] [place] [address] <No scans attached> Social History Tobacco Use [...] Office Visit [facility] - Internal Medicine [address] [place] [phone] Ilya Gusman MD [address] [place] [phone] Christophe Dailey MD [address] [place] [phone] 01/18/2026 1:00 PM EST Office Visit [facility] [address] [address] Porsha Marsh CNP 70 [place] [address] 02/22/2026 11:00 AM EDT Office Visit [facility] [address] [place] [phone] Alonso Bae MD [address] [place] [address] 07/17/2026 2:00 PM EDT Office Visit [facility] - Internal Medicine [address] [place] [phone] Ilya Gusman MD [address] [place] [phone] 07/19/2026 11:40 AM EDT Office Visit [facility] [address] [address] Yesi Perez MD 70 [place] [address] documented as of this encounter Visit Diagnoses Not on filedocumented in this encounter Additional Health Concerns Assessment Noted Time PHQ-9 Depression Total Score: 16 025 11:49 AM EDT documented as of this encounter Care Teams Highway Worker Relationship Specialty Start Date End Date Ilay Gusman MD [address] [place] [phone] PCP - General 05/14/17 [facility] 09/01/25 documented as of this encounter
--- OUTSIDE RECORDS SUMMARY | 2025-10-06 22:30 | XMS_ITS | Encounter Summary ---
Author Organization [facility] ystem Address [address] [place] [address] Phone Care Team Providers Care Talent Acquisition Director Name Role Phone Ilya Gusman MD Primary Care Provider [phone] Encounter Details Date Type Department Care Team (Late Contact Info) Description 09/25/[address] [facility] - Health Information Department [address] [place] [address] Scan, No Provider Available [address] [place] [address] [place] [address] <No scans attached> Social History Tobacco Use [...] [facility] [address] [place] [phone] Ilya Gusman MD [address] [place] [phone] Christophe Dailey MD [address] [place] [address] [phone] 01/18/2026 1:00 PM EST Office Visit [facility] [address] [place] [address] Porsha Marsh, PACKAGER HAND [address] [place] [address] 02/22/2026 11:00 AM EDT Office Visit [facility] [address] [place] [address] [address] [place] [phone] Alonso Bae MD [address] [place] [address] [address] [place] [address] 07/17/2026 2:00 PM EDT Office Visit [facility] - Internal Medicine [address] [place] [phone] Ilya Gusman MD [address] [place] [phone] 07/19/2026 11:40 AM EDT Office Visit [facility] [address] [place] [address] Yesi Perez MD [address] [place] [address] documented as of this encounter Visit Diagnoses [...] Date End Date Ilya Gusman MD [address] [place] [address] [phone] PCP - General 05/14/17 [facility] 09/01/25 documented as of this encounter
--- OUTSIDE RECORDS SUMMARY | 2025-10-06 22:30 | XMS_ITS | Encounter Summary ---
Author Organization [facility] ystem Address [address] [place] [address] Phone Care Team Providers Care Labor Standards Director Name Role Phone Ilya Gusman MD Primary Care Provider [phone] Encounter Details Date Type Department Care Team (Late Contact Info) Description 10/19/2024 Scanned Document [facility] - Health Information Department [address] [place] [address] Scan, No Provider Available [address] [place] [address] [place] [address] <No scans attached> Social History Tobacco Use [...] Care Team ([facility] Contact Info) Description 10/10/2025 10:30 AM EST Office Visit [facility] - Internal Medicine [address] [place] [phone] Ilya Gusman MD [address] [place] [phone] Christophe Dailey MD [address] [place] [address] [phone] 01/18/2026 1:00 PM EST Office Visit [facility] [address] [place] [address] Porsha Marsh, GEL COATER [address] [place] [address] 02/22/2026 11:00 AM EDT Office Visit [facility] [address] [place] [address] [address] [place] [phone] Alonso Bae MD [address] [place] [address] [address] [place] [address] 07/17/2026 2:00 PM EDT Office Visit [facility] - Internal Medicine [address] [place] [phone] Ilya Gusman MD [address] [place] [phone] 07/19/2026 11:40 AM EDT Office Visit [facility] [address] [place] [address] Yesi Perez MD [address] [place] [address] documented as of this encounter Visit Diagnoses Not on filedocumented in this encounter Additional Health Concerns Infection Onset Date Last Indicated Resolved Time C difficile Rule-Out 11/01/2024 11/02/2024 024 9:43 AM EST Assessment Noted Time PHQ-9 Depression Total Score: 6 04/28/20 24 1:53 PM EDT documented as of this encounter Care Teams Labor Standards Director Relationship Specialty Start Date End Date Ilya Gusman MD [address] [place] [phone] PCP - General 05/14/17 [facility] 09/01/25 documented as of this encounter
--- OUTSIDE RECORDS SUMMARY | 2025-10-06 22:30 | XMS_ITS | Encounter Summary ---
Author Organization [facility] ystem Address [address] [place] [address] Phone Care Team Providers Care Dirt Bike Mechanic Name Role Phone Ilya Gusman MD Primary Care Provider [phone] Encounter Details Date Type Department Care Team (Late Contact Info) Description 08/16/2024 Procedure Pass [facility] Endoscopy [address] [place] [address] Social History Tobacco Use Types [...] Team ([facility] Contact Info) Description 10/10/2025 10:30 AM EST Office Visit [facility] - Internal Medicine [address] [place] [phone] Ilya Gusman MD [address] [place] [phone] Christophe Dailey MD [address] [place] [phone] 01/18/2026 1:00 PM EST Office Visit [facility] [address] [place] [address] Porsha Marsh, MONKEY KEEPER 70 [place] [address] 02/22/2026 11:00 AM EDT Office Visit [facility] [address] [place] [address] [address] [place] [phone] Alonso Bae MD [address] [place] [address] 2 [place] [address] 07/17/2026 2:00 PM EDT Office Visit [facility] - Internal Medicine [address] [place] [phone] Ilya Gusman MD [address] [place] [phone] 07/19/2026 11:40 AM EDT Office Visit [facility] [address] [place] [address] Yesi Perez MD [address] [place] [address] documented as of this encounter Visit Diagnoses Not on filedocumented in this encounter Additional Health Concerns Infection Onset Date Last Indicated Resolved Time C difficile Rule-Out 11/01/2024 11/02/2024 024 9:43 AM EST Assessment Noted Time PHQ-9 Depression Total Score: 6 04/28/20 24 1:53 PM EDT documented as of this encounter Care Teams Dirt Bike Mechanic Relationship Specialty Start Date End Date Ilya Gusman MD [address] [place] [phone] PCP - General 05/14/17 [facility] 09/01/25 documented as of this encounter
--- OUTSIDE RECORDS SUMMARY | 2025-10-06 22:30 | XMS_ITS | Encounter Summary ---
Author Organization [facility] ystem Address [address] [place] [address] Phone Care Team Providers Care Field Representative Name Role Phone Ilya Gusman MD Primary Care Provider [phone] Encounter Details Date Type Department Care Team (Late Contact Info) Description 08/12/2024 Scanned Document [facility] - Health Information Department [address] [place] [address] Scan, No Provider Available [address] [place] [address] [place] [address] <No scans attached> Social History Tobacco Use [...] Care Team ([facility] Contact Info) Description 10/10/2025 10:30 AM EST Office Visit [facility] - Internal Medicine [address] [place] [phone] Ilya Gusman MD [address] [place] [phone] Christophe Dailey MD [address] [place] [address] [phone] 01/18/2026 1:00 PM EST Office Visit [facility] [address] [place] [address] Porsha Marsh, SENIOR MANUFACTURING TEST ENGINEER [address] [place] [address] 02/22/2026 11:00 AM EDT Office Visit [facility] [address] [place] [address] [address] [place] [phone] Alonso Bae MD [address] [place] [address] [address] [place] [address] 07/17/2026 2:00 PM EDT Office Visit [facility] - Internal Medicine [address] [place] [phone] Ilya Gusman MD [address] [place] [phone] 07/19/2026 11:40 AM EDT Office Visit [facility] [address] [place] [address] Yesi Perez MD [address] [place] [address] documented as of this encounter Visit Diagnoses Not on filedocumented in this encounter Additional Health Concerns Infection Onset Date Last Indicated Resolved Time C difficile Rule-Out 11/01/2024 11/02/2024 024 9:43 AM EST Assessment Noted Time PHQ-9 Depression Total Score: 6 04/28/20 24 1:53 PM EDT documented as of this encounter Care Teams Field Representative Relationship Specialty Start Date End Date Ilya Gusman MD [address] [place] [address] [phone] PCP - General 05/14/17 [facility] 09/01/25 documented as of this encounter
--- OUTSIDE RECORDS SUMMARY | 2025-10-06 22:30 | XMS_ITS | Encounter Summary ---
Author Organization [facility] ystem Address [address] [place] [address] Phone Care Team Providers Care Executive Vice President And Chief Financial Officer Name Role Phone Ilya Gusman MD Primary Care Provider [phone] Encounter Details Date Type Department Care Team (Late Contact Info) Description 11/03/2024 Procedure Pass [facility] Endoscopy [address] [place] [address] Social History Tobacco Use Types [...] Date Type Department Care Team ([facility] Contact Info) Description 10/10/2025 10:30 AM EST Office Visit [facility] - Internal Medicine [address] [place] [phone] Ilya Gusman MD [address] [place] [phone] Christophe Dailey MD [address] [place] [phone] 01/18/2026 1:00 PM EST Office Visit [facility] [address] [place] [address] Porsha Marsh, MEDICAL ASSISTANT 70 [place] [address] 02/22/2026 11:00 AM EDT Office Visit [facility] [address] [place] [address] [address] [place] [phone] Alonso Bae MD [address] [place] [address] 2 [place] [address] 07/17/2026 2:00 PM EDT Office Visit [facility] - Internal Medicine [address] [place] [phone] Ilya Gusman MD [address] [place] [phone] 07/19/2026 11:40 AM EDT Office Visit [facility] [address] [place] [address] Yesi Perez MD [address] [place] [address] documented as of this encounter Visit Diagnoses Not on filedocumented in this encounter Additional Health Concerns Assessment Noted Time PHQ-9 Depression Total Score: 6 04/28/20 24 1:53 PM EDT documented as of this encounter Care Teams Executive Vice President And Chief Financial Officer Relationship Specialty Start Date End Date Ilya Gusman MD [address] [place] [phone] PCP - General 05/14/17 [facility] 09/01/25 documented as of this encounter
--- OUTSIDE RECORDS SUMMARY | 2025-10-06 22:30 | XMS_ITS | Encounter Summary ---
Author Organization [facility] Address [address] [place] [address] Phone Care Team Providers Care Belt Brander Name Role Phone Ilya Gusman MD Primary Care Provider [phone] Reason for Visit * Reason Comments Med Refill Encounter Details Date Type Department Care Team (Late Contact Info) Description 11/15/2024 Refill [facility] - Internal Medicine [address] [place] [phone] Ilya Gusman MD [address] [place] [phone] Med Refill Social History Tobacco Use [...] [facility] [address] [place] [phone] Ilya Gusman MD [address] [place] [phone] Christophe Dailey MD [address] [place] [phone] 01/18/2026 1:00 PM EST Office Visit [facility] [address] [place] [address] Porsha Marsh, TELEPHONE WORKER [address] [place] [address] 02/22/2026 11:00 AM EDT Office Visit [facility] [address] [place] [address] [address] [place] [phone] Alonso Bae MD [address] [place] [address] [address] [place] [address] 07/17/2026 2:00 PM EDT Office Visit [facility] - Internal Medicine [address] [place] [phone] Ilya Gusman MD [address] [place] [phone] 07/19/2026 11:40 AM EDT Office Visit [facility] [address] [place] [address] Yesi Perez MD [address] [place] [address] documented as of this encounter Visit Diagnoses Not on filedocumented in this encounter Additional Health Concerns Assessment Noted Time PHQ-9 Depression Total Score: 6 04/28/20 24 1:53 PM EDT documented as of this encounter Care Teams Belt Brander Relationship Specialty Start Date End Date Ilya Gusman MD [address] [place] [phone] PCP - General 05/14/17 [facility] 09/01/25 documented as of this encounter
--- OUTSIDE RECORDS SUMMARY | 2025-10-06 22:30 | XMS_ITS | Encounter Summary ---
Author Organization [facility] ystem Address [address] [place] [address] Phone Care Team Providers Care Mirror Polisher Name Role Phone Ilya Gusman MD Primary Care Provider [phone] Encounter Details Date Type Department Care Team (Late Contact Info) Description 11/03/2024 Scanned Document [facility] - Health Information Department [address] [place] [phone] Scan, No Provider Available [address] [place] [address] [place] [address] <No scans attached> Social History Tobacco Use [...] [facility] [address] [place] [phone] Ilya Gusman MD [address] [place] [phone] Christophe Dailey MD [address] [place] [address] [phone] 01/18/2026 1:00 PM EST Office Visit [facility] [address] [place] [address] Porsha Marsh, ADVERTISING TRAFFIC MANAGER [address] [place] [address] 02/22/2026 11:00 AM EDT Office Visit [facility] [address] [place] [address] [address] [place] [phone] Alonso Bae MD [address] [place] [address] [address] [place] [address] 07/17/2026 2:00 PM EDT Office Visit [facility] - Internal Medicine [address] [place] [phone] Ilya Gusman MD [address] [place] [phone] 07/19/2026 11:40 AM EDT Office Visit [facility] [address] [place] [address] Yesi Perez MD [address] [place] [address] documented as of this encounter Visit Diagnoses Not on filedocumented in this encounter Additional Health Concerns Assessment Noted Time PHQ-9 Depression Total Score: 6 04/28/20 24 1:53 PM EDT documented as of this encounter Care Teams Mirror Polisher Relationship Specialty Start Date End Date Ilya Gusman MD [address] [place] [phone] PCP - General 05/14/17 [facility] 09/01/25 documented as of this encounter
--- OUTSIDE RECORDS SUMMARY | 2025-10-06 22:30 | XMS_ITS | Encounter Summary ---
Author Organization [facility] ystem Address [address] [place] [address] Phone Care Team Providers Care Shoulder Pad Molder Name Role Phone Ilya Gusman MD Primary Care Provider [phone] Encounter Details Date Type Department Care Team ([facility] Contact Info) Description 08/16/2024 Orders Only [facility] - Health Information Department [address] [place] [address] Scan, No Provider Available [address] [place] [address] [address]azar [place] [phone] Social History Tobacco Use Types Packs/Day Years [...] 10:30 AM EST Office Visit [facility] - Internal Medicine [address] [place] [phone] Ilya Gusman MD [address] [place] [phone] Christophe Dailey MD [address] [place] [phone] 01/18/2026 1:00 PM EST Office Visit [facility] [address] [place] [address] Porsha Marsh, PAPER AND PRINTS RESTORER [address] [place] [address] 02/22/2026 11:00 AM EDT Office Visit [facility] [address] [place] [address] [address] [place] [phone] Alonso Bae MD [address] [place] [address] [address] [place] [address] 07/17/2026 2:00 PM EDT Office Visit [facility] - Internal Medicine [address] [place] [phone] Ilya Gusman MD [address] [place] [phone] 07/19/2026 11:40 AM EDT Office Visit [facility] [address] [place] [address] Yesi Perez MD [address] [place] [address] documented as of this encounter Procedures Procedure [...] documented as of this encounter Care Teams Shoulder Pad Molder Relationship Specialty Start Date End Date Ilya Gusman MD [address] [place] [phone] PCP - General 05/14/17 [facility] 09/01/25 documented as of this encounter
--- OUTSIDE RECORDS SUMMARY | 2025-10-06 22:30 | XMS_ITS | Encounter Summary ---
Author Organization [facility] ystem Address [address] [place] [address] Phone Care Team Providers Care Varnish Thinner Name Role Phone Ilya Gusman MD Primary Care Provider [phone] Encounter Details Date Type Department Care Team (Late Contact Info) Description 08/24/2024 Scanned Document [facility] - Health Information Department [address] [place] [address] Scan, No Provider Available [address] [place] [address] [place] [address] <No scans attached> Social History Tobacco Use [...] Upcoming Encounters Date Type Department Care Team ([facility] Contact Info) Description 10/10/2025 10:30 AM EST Office Visit [facility] - Internal Medicine [address] [place] [phone] Ilya Gusman MD [address] [place] [phone] Christophe Dailey MD [address] [place] [phone] 01/18/2026 1:00 PM EST Office Visit [facility] [address] [place] [address] Porsha Marsh, ONLINE JOURNALIST [address] [place] [address] 02/22/2026 11:00 AM EDT Office Visit [facility] [address] [place] [address] [address] [place] [phone] Alonso Bae MD [address] [place] [address] [address] [place] [address] 07/17/2026 2:00 PM EDT Office Visit [facility] - Internal Medicine [address] [place] [phone] Ilya Gusman MD [address] [place] [phone] 07/19/2026 11:40 AM EDT Office Visit [facility] [address] [place] [address] Yesi Perez MD [address] [place] [address] documented as of this encounter Visit Diagnoses Not on filedocumented in this encounter Additional Health Concerns Infection Onset Date Last Indicated Resolved Time C difficile Rule-Out 11/01/2024 11/02/2024 024 9:43 AM EST Assessment Noted Time PHQ-9 Depression Total Score: 6 04/28/20 24 1:53 PM EDT documented as of this encounter Care Teams Varnish Thinner Relationship Specialty Start Date End Date Ilya Gusman MD [address] [place] [address] [phone] PCP - General 05/14/17 [facility] 09/01/25 documented as of this encounter
--- OUTSIDE RECORDS SUMMARY | 2025-10-06 22:30 | XMS_ITS | Encounter Summary ---
Author Organization [facility] ystem Address [address] [place] [address] Phone Care Team Providers Care Coach Name Role Phone Ilya Gusman MD Primary Care Provider [phone] Encounter Details Date Type Department Care Team (Late Contact Info) Description 09/22/2024 Scanned Document [facility] - Health Information Department [address] [place] [phone] Scan, No Provider Available [address] [place] [address] [place] [address] <No scans attached> Social History Tobacco Use [...] Upcoming Encounters Date Type Department Care Team ([facility] Contact Info) Description 10/10/2025 10:30 AM EST Office Visit [facility] - Internal Medicine [address] [place] [phone] Ilya Gusman MD [address] [place] [phone] Christophe Dailey MD [address] [place] [address] [phone] 01/18/2026 1:00 PM EST Office Visit [facility] [address] [place] [address] Porsha Marsh, WATER TREATMENT PLANT SUPERVISOR [address] [place] [address] 02/22/2026 11:00 AM EDT Office Visit [facility] [address] [place] [address] [address] [place] [phone] Alonso Bae MD [address] [place] [address] [address] [place] [address] 07/17/2026 2:00 PM EDT Office Visit [facility] - Internal Medicine [address] [place] [phone] Ilya Gusman MD [address] [place] [phone] 07/19/2026 11:40 AM EDT Office Visit [facility] [address] [place] [address] Yesi Perez MD [address] [place] [address] documented as of this encounter Visit Diagnoses Not on filedocumented in this encounter Additional Health Concerns Infection Onset Date Last Indicated Resolved Time C difficile Rule-Out 11/01/2024 11/02/2024 024 9:43 AM EST Assessment Noted Time PHQ-9 Depression Total Score: 6 04/28/20 24 1:53 PM EDT documented as of this encounter Care Teams Coach Relationship Specialty Start Date End Date Ilya Gusman MD [address] [place] [phone] PCP - General 05/14/17 [facility] 09/01/25 documented as of this encounter
--- OUTSIDE RECORDS SUMMARY | 2025-10-06 22:30 | XMS_ITS | Encounter Summary ---
Author Organization [facility] Address [address] [place] [address] Phone Care Team Providers Care Certified Court/Medical Interpreter Name Role Phone Ilya Gusman MD Primary Care Provider [phone] Reason for Visit * Reason Onset Date Comments Med Refill 01/11/2025 Encounter Details Date Type Department Care Team (Late st Contact Info) Description 01/11/2025 Refill [facility] - Internal Medicine [address] [place] [address] [phone] Christophe Gil MD [address] [place] [phone] Med Refill Social History Tobacco Use [...] Wey 02/22/2025 9:45 AM Alonso Bae MD WEJose Daniel URO WEY 07/14/2025 2:00 PM Yesi Perez MD WEY CARDIO SS Card Wejose daniel DIRECTOR CHILD ABUSE THERAPY reviewed on 01/12/2025 by Ian PICKETT and no red flags were noted Ian Pierson REFILL SPECIALIST documented in this encounter Plan of Treatment Upcoming Encounters Date Type Department Care Team (Late st Contact Info) Description 10/10/2025 10:30 AM EST Office Visit [facility] - Internal Medicine [address] [place] [phone] Ilya Gusman MD [address] [place] [address] [phone] Christophe Gil MD [address] [place] [address] [phone] 01/18/2026 1:00 PM EST Office Visit [facility] [address] [facility] 1 [place] [address] Maximo GraceMarieJany, DATA SUPPORT SPECIALIST [address] [place] [address] 02/22/2026 11:00 AM EDT Office Visit [facility] [address] [place] [address] Alonso Bae MD [address] [facility] [address] [place] [address] 07/17/2026 2:00 PM EDT Office Visit [facility] - Internal Medicine [address] [place] [phone] Ilya Gusman MD [address] [place] [address] [phone] 07/19/2026 11:40 AM EDT Office Visit [facility] [address] [place] [address] Yesi Perez MD [address] [place] [address] documented as of this encounter Visit Diagnoses Not on filedocumented in this encounter Additional Health Concerns Assessment Noted Time PHQ-9 Depression Total Score: 6 04/28/20 24 1:53 PM EDT documented as of this encounter Care Teams Certified Court/Medical Interpreter Relationship Specialty Start Date End Date Ilya Gusman MD [address] [place] [address] [phone] PCP - General 05/14/17 [facility] 09/01/25 documented as of this encounter
--- OUTSIDE RECORDS SUMMARY | 2025-10-06 22:30 | XMS_ITS | Encounter Summary ---
Author Organization [facility] ystem Address [address] [place] [address] Phone Care Team Providers Care Science Job Titles Name Role Phone Ilya Gusman MD Primary Care Provider [phone] Encounter Details Date Type Department Care Team (Late Contact Info) Description 11/21/2024 Scanned Document [facility] - Health Information Department [address] [place] [address] Scan, No Provider Available [address] [place] [address] [place] [address] <No scans attached> Social History Tobacco Use [...] Upcoming Encounters Date Type Department Care Team ([facility] Contact Info) Description 10/10/2025 10:30 AM EST Office Visit [facility] - Internal Medicine [address] [place] [phone] Ilya Gusman MD [address] [place] [phone] Christophe Dailey MD [address] [place] [address] [phone] 01/18/2026 1:00 PM EST Office Visit [facility] [address] [place] [address] Porsha Marsh, HEALTH PRACTICE MANAGER [address] [place] [address] 02/22/2026 11:00 AM EDT Office Visit [facility] [address] [place] [address] [address] [place] [phone] Alonso Bae MD [address] [place] [address] [address] [place] [address] 07/17/2026 2:00 PM EDT Office Visit [facility] - Internal Medicine [address] [place] [phone] Ilya Gusman MD [address] [place] [phone] 07/19/2026 11:40 AM EDT Office Visit [facility] [address] [place] [address] Yesi Perez MD [address] [place] [address] documented as of this encounter Visit Diagnoses Not on filedocumented in this encounter Additional Health Concerns Assessment Noted Time PHQ-9 Depression Total Score: 6 04/28/20 24 1:53 PM EDT documented as of this encounter Care Teams Science Job Titles Relationship Specialty Start Date End Date Ilya Gusman MD [address] [place] [phone] PCP - General 05/14/17 [facility] 09/01/25 documented as of this encounter
--- OUTSIDE RECORDS SUMMARY | 2025-10-06 22:30 | XMS_ITS | Encounter Summary ---
Author Organization [facility] Address [address] [place] [address] Phone Care Team Providers Care Research Spec Name Role Phone Ilya Gusman MD Primary Care Provider [phone] Reason for Visit * Reason Comments Med Refill Encounter Details Date Type Department Care Team (Late Contact Info) Description 02/15/2025 Refill [facility] - Internal Medicine [address] [place] [phone] Christophe Dailey MD [address] [place] [phone] Med Refill Social History Tobacco Use [...] 10:30 AM EST Office Visit [facility] - Internal Medicine [address] [place] [phone] Ilya Gusman MD [address] [place] [phone] Christophe Dailey MD [address] [place] [phone] 01/18/2026 1:00 PM EST Office Visit [facility] [address] [place] [address] Porsha Marsh, BLENDER/BRAZE APPLICATOR 70 [place] [address] 02/22/2026 11:00 AM EDT Office Visit [facility] [address] [place] [address] [address] [place] [phone] Alonso Bae MD [address] [place] [address] [address] [place] [address] 07/17/2026 2:00 PM EDT Office Visit [facility] - Internal Medicine [address] [place] [phone] Ilya Gusman MD [address] [place] [phone] 07/19/2026 11:40 AM EDT Office Visit [facility] [address] [place] [address] Yesi Perez MD [address] [place] [address] documented as of this encounter Visit Diagnoses Not on filedocumented in this encounter Additional Health Concerns Assessment Noted Time PHQ-9 Depression Total Score: 6 04/28/20 24 1:53 PM EDT documented as of this encounter Care Teams Research Spec Relationship Specialty Start Date End Date Ilya Gusman MD [address] [place] [phone] PCP - General 05/14/17 [facility] 09/01/25 documented as of this encounter
--- OUTSIDE RECORDS SUMMARY | 2025-10-06 22:30 | XMS_ITS | Encounter Summary ---
Author Organization [facility] ystem Address [address] [place] [address] Phone Care Team Providers Care Import Specialist Name Role Phone Ilya Gusman MD Primary Care Provider [phone] Encounter Details Date Type Department Care Team (Late Contact Info) Description 12/21/2024 Scanned Document [facility] - Health Information Department [address] [place] [address] Scan, No Provider Available [address] [place] [address] [place] [address] <No scans attached> Social History Tobacco Use [...] Care Team ([facility] Contact Info) Description 10/10/2025 10:30 AM EST Office Visit [facility] - Internal Medicine [address] [place] [phone] Ilya Gusman MD [address] [place] [phone] Christophe Dailey MD [address] [place] [address] [phone] 01/18/2026 1:00 PM EST Office Visit [facility] [address] [place] [address] Porsha Marsh, CONTACT REPRESENTATIVE [address] [place] [address] 02/22/2026 11:00 AM EDT Office Visit [facility] [address] [place] [address] [address] [place] [phone] Alonso Bae MD [address] [place] [address] [address] [place] [address] 07/17/2026 2:00 PM EDT Office Visit [facility] - Internal Medicine [address] [place] [phone] Ilya Gusman MD [address] [place] [phone] 07/19/2026 11:40 AM EDT Office Visit [facility] [address] [place] [address] Yesi Perez MD [address] [place] [phone] documented as of this encounter Visit Diagnoses Not on filedocumented in this encounter Additional Health Concerns Assessment Noted Time PHQ-9 Depression Total Score: 6 04/28/20 24 1:53 PM EDT documented as of this encounter Care Teams Import Specialist Relationship Specialty Start Date End Date Ilya Gusman MD [address] [place] [phone] PCP - General 05/14/17 [facility] 09/01/25 documented as of this encounter
--- OUTSIDE RECORDS SUMMARY | 2025-10-06 22:30 | XMS_ITS | Encounter Summary ---
Author Organization [facility] ystem Address [address] [place] [address] Phone Care Team Providers Care Double Cutter Name Role Phone Ilya Gusman MD Primary Care Provider [phone] Encounter Details Date Type Department Care Team (Late Contact Info) Description 01/06/2022 Scanned Document [facility] - Health Information Department [address] [place], [place] [phone] Scan, No Provider Available [address] [place] [address] [place] [address] <No scans attached> Social History Tobacco Use [...] [facility] - Internal Medicine [address] [place] [phone] Ilya Gusman MD [address] [place] [phone] Christophe Dailey MD [address] [place] [phone] 01/18/2026 1:00 PM EST Office Visit [facility] [address] [place] [phone] Porsha Marsh, MARILIA [address] [place] [address] 02/22/2026 11:00 AM EDT Office Visit [facility] [address] [place] [address] [address] [place] [phone] Alonso Bae MD [address] [place] [address] [address] [place] [address] 07/17/2026 2:00 PM EDT Office Visit [facility] - Internal Medicine [address] [place] [phone] Ilya Gusman MD [address] [place] [phone] 07/19/2026 11:40 AM EDT Office Visit [facility] [address] [place] [address] Yesi Perez MD [address] [place] [address] 19[address] documented as of this encounter Visit Diagnoses [...] as of this encounter Care Teams Double Cutter Relationship Specialty Start Date End Date Ilya Gusman MD [address] [place] [phone] PCP - General 05/14/17 [facility] 09/01/25 documented as of this encounter
--- OUTSIDE RECORDS SUMMARY | 2025-10-06 22:30 | XMS_ITS | Encounter Summary ---
Author Organization [facility] ystem Address [address] [place] [address] Phone Care Team Providers Care Risk Control Field Representative Name Role Phone Ilya Gusman MD Primary Care Provider [phone] Encounter Details Date Type Department Care Team (Late Contact Info) Description 11/19/2024 Scanned Document [facility] - Health Information Department [address] [place] [address] Scan, No Provider Available [address] [place] [address] [place] [address] <No scans attached> Social History Tobacco Use [...] Visit [facility] - Internal Medicine [address] [place] [phone] Ilya Gusman MD [address] [place] [phone] Christophe Dailey MD [address] [place] [address] [phone] 01/18/2026 1:00 PM EST Office Visit [facility] [address] [place] [address] Porsha Marsh, WEED COOKING OPERATOR [address] [place] [address] 02/22/2026 11:00 AM EDT Office Visit [facility] [address] [place] [address] [address] [place] [phone] Alonso Bae MD [address] [place] [address] [address] [place] [address] 07/17/2026 2:00 PM EDT Office Visit [facility] - Internal Medicine [address] [place] [phone] Ilya Gusman MD [address] [place] [phone] 07/19/2026 11:40 AM EDT Office Visit [facility] [address] [place] [address] Yesi Perez MD [address] [place] [address] [phone] documented as of this encounter Visit Diagnoses Not on filedocumented in this encounter Additional Health Concerns Assessment Noted Time PHQ-9 Depression Total Score: 6 04/28/20 24 1:53 PM EDT documented as of this encounter Care Teams Risk Control Field Representative Relationship Specialty Start Date End Date Ilya Gusman MD [address] [place] [phone] PCP - General 05/14/17 [facility] 09/01/25 documented as of this encounter
--- OUTSIDE RECORDS SUMMARY | 2025-10-06 22:30 | XMS_ITS | Encounter Summary ---
Author Organization [facility] ystem Address [address] [place] [address] Phone Care Team Providers Care Assistant Professor In Family Studies Name Role Phone Ilya Gusman MD Primary Care Provider [phone] Encounter Details Date Type Department Care Team (Late Contact Info) Description 11/13/2018 Scanned Document [facility] - Health Information Department [address] [place] [address] Scan, No Provider Available [address] [place] [address] [place] [address] <No scans attached> Social History Tobacco Use [...] Team ([facility] Contact Info) Description 10/10/2025 10:30 AM EST Office Visit [facility] - Internal Medicine [address] [place] [phone] Ilya Gusman MD [address] [place] [phone] Christophe Dailey MD [address] [place] [phone] 01/18/2026 1:00 PM EST Office Visit [facility] [address] [place] [address] Porsha Marsh, SENIOR BRANCH MANAGER [address] [place] [address] 02/22/2026 11:00 AM EDT Office Visit [facility] [address] [place] [address] [address] [place] [phone] Alonso Bae MD [address] [place] [address] [address] [place] [address] 07/17/2026 2:00 PM EDT Office Visit [facility] - Internal Medicine [address] [place] [phone] Ilya Gusman MD [address] [place] [phone] 07/19/2026 11:40 AM EDT Office Visit [facility] [address] [place] [address] Yesi Perez MD [address] [place] [address] 218[address] documented as of this encounter Visit Diagnoses [...] as of this encounter Care Teams Assistant Professor In Family Studies Relationship Specialty Start Date End Date Ilya Gusman MD [address] [place] [phone] PCP - General 05/14/17 [facility] 09/01/25 documented as of this encounter
--- OUTSIDE RECORDS SUMMARY | 2025-10-06 22:30 | XMS_ITS | Encounter Summary ---
Author Organization [facility] ystem Address [address] [place] [address] Phone Care Team Providers Care Mechanical Press Operator Name Role Phone Ilya Gusman MD Primary Care Provider [phone] Encounter Details Date Type Department Care Team (Late st Contact Info) Description 02/14/2022 Scanned Document [facility] - Health Information Department [address] [place], [place] [phone] Scan, No Provider Available [address] [facility] [place] [address] <No scans attached> Social History Tobacco Use [...] 10:30 AM EST Office Visit [facility] - Internal Medicine [address] [place] [phone] Ilya Gusman MD [address] [place] [phone] Christophe Dailey MD [address] [place] [phone] 01/18/2026 1:00 PM EST Office Visit [facility] [address] [place] [address] Porsha Marsh, CARDIOLOGY NURSE PRACTITIONER [address] [place] [address] 02/22/2026 11:00 AM EDT Office Visit [facility] [address] [place] [address] [address] [place] [phone] Alonso Bae MD [address] [place] [address] [address] [place] [address] 07/17/2026 2:00 PM EDT Office Visit [facility] - Internal Medicine [address] [place] [phone] Ilya Gusman MD [address] [place] [phone] 07/19/2026 11:40 AM EDT Office Visit [facility] [address] [place] [address] Yesi Perez MD [address] [place] [address] 14144 documented as of this encounter Visit Diagnoses [...] documented as of this encounter Care Teams Mechanical Press Operator Relationship Specialty Start Date End Date Ilya Gusman MD [address] [place] [phone] PCP - General 05/14/17 [facility] 09/01/25 documented as of this encounter
--- OUTSIDE RECORDS SUMMARY | 2025-10-06 22:30 | XMS_ITS | Encounter Summary ---
Author Organization [facility] Address [address] [place] [address] Phone Care Team Providers Care Furnace Process Supervisor Name Role Phone Ilya Gusman MD Primary Care Provider [phone] Reason for Visit * Reason Comments Med Refill Encounter Details Date Type Department Care Team (Late Contact Info) Description 01/27/2025 Refill [facility] - Internal Medicine [address] [place] [address] [phone] Christophe Dailey MD [address] [place] [phone] Med Refill Social History Tobacco Use [...] Visit [facility] - Internal Medicine [address] [place] [phone] Ilya Gusman MD [address] [place] [phone] Christophe Dailey MD [address] [place] [phone] 01/18/2026 1:00 PM EST Office Visit [facility] [address] [place] [address] Porsha Marsh, MARILIA [address] [place] [address] 02/22/2026 11:00 AM EDT Office Visit [facility] [address] [place] [address] [address] [place] [phone] Alonso Bae MD [address] [place] [address] [address] [place] [address] 07/17/2026 2:00 PM EDT Office Visit [facility] - Internal Medicine [address] [place] [address] [phone] Ilya Gusman MD [address] [place] [phone] 07/19/2026 11:40 AM EDT Office Visit [facility] [address] [place] [address] Yesi Perez MD [address] [place] [address] documented as of this encounter Visit Diagnoses Not on filedocumented in this encounter Additional Health Concerns Assessment Noted Time PHQ-9 Depression Total Score: 6 04/28/20 24 1:53 PM EDT documented as of this encounter Care Teams Furnace Process Supervisor Relationship Specialty Start Date End Date Ilya Gusman MD [address] [place] [phone] PCP - General 05/14/17 [facility] 09/01/25 documented as of this encounter
--- OUTSIDE RECORDS SUMMARY | 2025-10-06 22:30 | XMS_ITS | Encounter Summary ---
Author Organization [facility] ystem Address [address] [place] [address] Phone Care Team Providers Care Utility Pipe Layer Name Role Phone Ilya Gusman MD Primary Care Provider [phone] Encounter Details Date Type Department Care Team (Late st Contact Info) Description 03/04/2022 Scanned Document [facility] - Health Information Department [address] [place], [place] [phone] Scan, No Provider Available [address] [facility] [place] [address] <No scans attached> Social History Tobacco Use [...] [facility] - [facility] Medicine [address] [place] [phone] Ilya Gusman MD [address] [place] [phone] Christophe Dailey MD [address] [place] [phone] 01/18/2026 1:00 PM EST Office Visit [facility] [address] [place] [address] Porsha Marsh, X RAY TECHNOLOGIST [address] [place] [address] 02/22/2026 11:00 AM EDT Office Visit [facility] [address] [place] [address] [address] [place] [phone] Alonso Bae MD [address] [place] [address] [address] [place] [address] 07/17/2026 2:00 PM EDT Office Visit [facility] - Internal Medicine [address] [place] [phone] Ilya Gusman MD [address] [place] [phone] 07/19/2026 11:40 AM EDT Office Visit [facility] [address] [place] [address] Yesi Perez MD [address] [place] [address] documented as of this encounter Visit Diagnoses [...] documented as of this encounter Care Teams Utility Pipe Layer Relationship Specialty Start Date End Date Ilya Gusman MD [address] [place] [phone] PCP - General 05/14/17 [facility] 09/01/25 documented as of this encounter
--- OUTSIDE RECORDS SUMMARY | 2025-10-06 22:30 | XMS_ITS | Encounter Summary ---
Author Organization [facility] ystem Address [address] [place] [address] Phone Care Team Providers Care Stitch Wheeler Name Role Phone Ilya Gusman MD Primary Care Provider [phone] Encounter Details Date Type Department Care Team (Late Contact Info) Description 10/16/2024 Scanned Document [facility] - Health Information Department [address] [place] [phone] Scan, No Provider Available [address] [place] [address] [place] [address] <No scans attached> Social History Tobacco Use [...] Team ([facility] Contact Info) Description 10/10/2025 10:30 AM EST Office Visit [facility] - Internal Medicine [address] [place] [phone] Ilya Gusman MD [address] [place] [phone] Christophe Dailey MD [address] [place] [address] [phone] 01/18/2026 1:00 PM EST Office Visit [facility] [address] [place] [address] Porsha Marsh, TIMBER SUPERVISOR [address] [place] [address] 02/22/2026 11:00 AM EDT Office Visit [facility] [address] [place] [address] [address] [place] [phone] Alonso Bae MD [address] [place] [address] [address] [place] [address] 07/17/2026 2:00 PM EDT Office Visit [facility] - Internal Medicine [address] [place] [phone] Ilya Gusman MD [address] [place] [phone] 07/19/2026 11:40 AM EDT Office Visit [facility] [address] [place] [address] Yesi Perez MD [address] [place] [address] documented as of this encounter Visit Diagnoses Not on filedocumented in this encounter Additional Health Concerns Infection Onset Date Last Indicated Resolved Time C difficile Rule-Out 11/01/2024 11/02/2024 024 9:43 AM EST Assessment Noted Time PHQ-9 Depression Total Score: 6 04/28/20 24 1:53 PM EDT documented as of this encounter Care Teams Stitch Wheeler Relationship Specialty Start Date End Date Ilya Gusman MD [address] [place] [address] [phone] PCP - General 05/14/17 [facility] 09/01/25 documented as of this encounter
--- OUTSIDE RECORDS SUMMARY | 2025-10-06 22:30 | XMS_ITS | Encounter Summary ---
Author Organization [facility] Address [address] [place] [address] Phone Care Team Providers Care Production Line Technician Name Role Phone Ilya Gusman MD Primary Care Provider [phone] Reason for Visit * Reason Onset Date Comments Med Refill 10/05/2024 Encounter Details Date Type Department Care Team (Late Contact Info) Description 10/05/2024 Refill [facility] - Internal Medicine [address] [place] [address] [phone] Sondra Chandra MD [address] [place] [phone] Med Refill Social History Tobacco Use [...] LNG 12/08/2024 1:00 PM Yesi Perez MD [facility] 02/22/2025 9:45 AM Alonso Bae MD [facility] [place] Pat BSN, steam blocker Medicine [facility] * Telephone Encounter - Sondra Chandra MD [...] LNG 12/08/2024 1:00 PM Yesi Perez MD [facility] 02/22/2025 9:45 AM Alonso Bae MD [facility] WE[facility] FOOTWEAR SALES LEADER reviewed on 10/05/2024 by Ian BARNETT and no red flags were noted documented in this encounter Plan of Treatment Upcoming Encounters Date Type Department Care Team (Late st Contact Info) Description 10/10/2025 10:30 AM EST Office Visit [facility] - Internal Medicine [address] [place] [phone] Ilya Gusman MD [address] [place] [address] [phone] Sondra Chandra MD [address] [place] [phone] 01/18/2026 1:00 PM EST Office Visit [facility] [address] [address] Porsha Marsh, DRYING OVEN ATTENDANT [address] [place] [address] 02/22/2026 11:00 AM EDT Office Visit [facility] [address] [place] [address] [address] [place] [phone] Alonso Bae MD [address] [place] [address] [address] [place] [address] 07/17/2026 2:00 PM EDT Office Visit [facility] - Internal Medicine [address] [place] [phone] Ilya Gusman MD [address] [place] [phone] 07/19/2026 11:40 AM EDT Office Visit [facility] [address] [address] Yesi Perez MD 70 [place] [address] documented as of this encounter Visit Diagnoses Not on filedocumented in this encounter Additional Health Concerns Infection Onset Date Last Indicated Resolved Time C difficile Rule-Out 11/01/2024 11/02/2024 024 9:43 AM EST Assessment Noted Time PHQ-9 Depression Total Score: 6 04/28/20 24 1:53 PM EDT documented as of this encounter Care Teams Production Line Technician Relationship Specialty Start Date End Date Ilya Gusman MD [address] [place] [phone] PCP - General 05/14/17 [facility] 09/01/25 documented as of this encounter
--- OUTSIDE RECORDS SUMMARY | 2025-10-06 22:30 | XMS_ITS | Encounter Summary ---
Author Organization [facility] ystem Address [address] [place] [address] Phone Care Team Providers Care Senior Naval Parachutist Name Role Phone Ilya Gusman MD Primary Care Provider [phone] Encounter Details Date Type Department Care Team (Late st Contact Info) Description 01/18/2022 Scanned Document [facility] - Health Information Department [address] [place], [place] [phone] Scan, No Provider Available [address] [place] [address] <No scans attached> Social History Tobacco Use [...] [facility] - Internal Medicine [address] [place] [phone] Ilya Gusman MD [address] [place] [phone] Christophe Dailey MD [address] [place] [phone] 01/18/2026 1:00 PM EST Office Visit [facility] [address] [place] [address] Porsha Marsh, TELEPHONE DIAPHRAGM ASSEMBLER [address] [place] [address] 02/22/2026 11:00 AM EDT Office Visit [facility] [address] [place] [address] [address] [place] [phone] Alonso Bae MD [address] [place] [address] [address] [place] [address] 07/17/2026 2:00 PM EDT Office Visit [facility] - Internal Medicine [address] [place] [phone] Ilya Gusman MD [address] [place] [phone] 07/19/2026 11:40 AM EDT Office Visit [facility] [address] [place] [phone] Yesi Perez MD [address] [place] [address] documented as of this encounter Visit Diagnoses [...] as of this encounter Care Teams Senior Naval Parachutist Relationship Specialty Start Date End Date Ilya Gusman MD [address] [place] [phone] PCP - General 05/14/17 [facility] 09/01/25 documented as of this encounter
--- OUTSIDE RECORDS SUMMARY | 2025-10-06 22:30 | XMS_ITS | Encounter Summary ---
Author [facility] Address [address] [place] [address] Phone Care Team Providers Care Basketball Scout Name Role Phone Ilay Gusman MD Primary Care Provider [phone] Reason for Visit * Reason Comments Med Refill Encounter Details Date Type Department Care Team (Late Contact Info) Description 01/27/2025 Refill [facility] - Internal Medicine [address] [place] [address] [phone] Ilya Gusman MD [address] [place] [phone] Med Refill Social History Tobacco Use [...] IM LNG 02/08/2025 2:00 PM Valentine Swartz, SHEET ROLLER OPERATOR [facility] 02/09/2025 10:00 [...] Visit [facility] - Internal Medicine [address] [place] [phone] Ilya Gusman MD [address] [place] [phone] Christophe Dailey MD [address] [place] [phone] 01/18/2026 1:00 PM EST Office Visit [facility] [address] [place] [phone] Porsha Marsh CNP [address] [place] [address] 02/22/2026 11:00 AM EDT Office Visit [facility] [address] [place] [address] [address] [place] [phone] Alonso Bae MD [address] [place] [address] [address] [place] [address] 07/17/2026 2:00 PM EDT Office Visit [facility] - Internal Medicine [address] [place] [phone] Ilya Gusman MD [address] [place] [phone] 07/19/2026 11:40 AM EDT Office Visit [facility] [address] [place] [address] Yesi Perez MD [address] [place] [address] documented as of this encounter Visit Diagnoses Not on filedocumented in this encounter Additional Health Concerns Assessment Noted Time PHQ-9 Depression Total Score: 6 04/28/20 24 1:53 PM EDT documented as of this encounter Care Teams Basketball Scout Relationship Specialty Start Date End Date Ilya Gusman MD [address] [place] [address] [phone] PCP - General 05/14/17 [facility] 09/01/25 documented as of this encounter
--- OUTSIDE RECORDS SUMMARY | 2025-10-06 22:30 | XMS_ITS | Encounter Summary ---
Author Organization [facility] ystem Address [address] [place] [address] Phone Care Team Providers Care Personal Banking Assistant Name Role Phone Ilya Gusman MD Primary Care Provider [phone] Encounter Details Date Type Department Care Team (Late Contact Info) Description 12/19/2024 Scanned Document [facility] - Health Information Department [address] [place] [phone] Scan, No Provider Available [address] [place] [address] [place] [address] <No scans attached> Social History Tobacco Use [...] Team ([facility] Contact Info) Description 10/10/2025 10:30 AM EST Office Visit [facility] - Internal Medicine [address] [place] [phone] Ilya Gusman MD [address] [place] [phone] Christophe Dailey MD [address] [place] [address] [phone] 01/18/2026 1:00 PM EST Office Visit [facility] [address] [place] [address] Porsha Marsh, POULTRY FEED SUPERVISOR [address] [place] [address] 02/22/2026 11:00 AM EDT Office Visit [facility] [address] [place] [address] [address] [place] [phone] Alonso Bae MD [address] [place] [address] [address] [place] [address] 07/17/2026 2:00 PM EDT Office Visit [facility] - Internal Medicine [address] [place] [phone] Ilya Gusman MD [address] [place] [phone] 07/19/2026 11:40 AM EDT Office Visit [facility] [address] [place] [address] Yesi Perez MD [address] [place] [address] documented as of this encounter Visit Diagnoses Not on filedocumented in this encounter Additional Health Concerns Assessment Noted Time PHQ-9 Depression Total Score: 6 04/28/20 24 1:53 PM EDT documented as of this encounter Care Teams Personal Banking Assistant Relationship Specialty Start Date End Date Ilya Gusman MD [address] [place] [phone] PCP - General 05/14/17 [facility] 09/01/25 documented as of this encounter
--- OUTSIDE RECORDS SUMMARY | 2025-10-06 22:30 | XMS_ITS | Encounter Summary ---
[facility] Address [address] [place] [address] Phone Care Team Providers Care Wool Hat Forming Machine Tender Name Role Phone Ilya Gusman MD Primary Care Provider [phone] Reason for Visit * Reason Comments Med Refill Encounter Details Date Type Department Care Team (Late Contact Info) Description 11/04/2024 Refill [facility] - Internal Medicine [address] [place] [address] [phone] Ilya Gusman MD [address] [place] [phone] Med Refill Social History Tobacco Use [...] [facility] - Internal Medicine [address] [place] [phone] Ilya Gusman MD [address] [place] [phone] Christophe Dailey MD [address] [place] [address] [phone] 01/18/2026 1:00 PM EST Office Visit [facility] [address] [place] [phone] Porsha Marsh, STOCK SPECULATOR [address] [place] [address] 02/22/2026 11:00 AM EDT Office Visit [facility] [address] [place] [address] [address] [place] [phone] Alonso Bae MD [address] [place] [address] [address] [place] [address] 07/17/2026 2:00 PM EDT Office Visit [facility] - Internal Medicine [address] [place] [phone] Ilya Gusman MD [address] [place] [phone] 07/19/2026 11:40 AM EDT Office Visit [facility] [address] [place] [address] Yesi Perez MD [address] [place] [address] documented as of this encounter Visit Diagnoses Not on filedocumented in this encounter Additional Health Concerns Assessment Noted Time PHQ-9 Depression Total Score: 6 04/28/20 24 1:53 PM EDT documented as of this encounter Care Teams Wool Hat Forming Machine Tender Relationship Specialty Start Date End Date Ilya Gusman MD [address] [place] [phone] PCP - General 05/14/17 [facility] 09/01/25 documented as of this encounter
--- OUTSIDE RECORDS SUMMARY | 2025-10-06 22:30 | XMS_ITS | Encounter Summary ---
Author Organization [facility] ystem Address [address] [place] [address] Phone Care Team Providers Care Composition Teacher Name Role Phone Ilya Gusman MD Primary Care Provider [phone] Encounter Details Date Type Department Care Team (Late Contact Info) Description 01/10/2022 Scanned Document [facility] - Health Information Department [address] [place], [place] [phone] Scan, No Provider Available [address] [place] [address] [place] [address] <No scans attached> Social History Tobacco Use [...] [facility] - Internal Medicine [address] [place] [phone] Ilya Gusman MD [address] [place] [phone] Christophe Dailey MD [address] [place] [phone] 01/18/2026 1:00 PM EST Office Visit [facility] [address] [place] [address] Porsha Marsh, MARILIA [address] [place] [address] 02/22/2026 11:00 AM EDT Office Visit [facility] [address] [place] [address] [address] [place] [phone] Alonso Bae MD [address] [place] [address] [address] [place] [address] 07/17/2026 2:00 PM EDT Office Visit [facility] - Internal Medicine [address] [place] [phone] Ilya Gusman MD [address] [place] [phone] 07/19/2026 11:40 AM EDT Office Visit [facility] [address] [place] [address] Yesi Perez MD [address] [place] [address] documented as of this encounter Visit Diagnoses [...] as of this encounter Care Teams Composition Teacher Relationship Specialty Start Date End Date Ilya Gusman MD [address] [place] [phone] PCP - General 05/14/17 [facility] 09/01/25 documented as of this encounter
[2025-10-06 23:55] VITALS: BP 172/92; PULSE 87; RESP 20; TEMP 36; O2SAT 96; BMI 27.3
--- NOTE | 2025-10-07 | ECG_ITS ---
Test Reason : Avoid placing V1-V2 leads too high on chest Blood Pressure : */* mmHG Vent. Rate : 80 BPM Atrial Rate : 80 BPM P-R Int : 182 ms QRS Dur : 108 ms QT Int : 420 ms P-R-T Axes : 64 -33 3 degrees QTcB Int : 484 ms Sinus rhythm with Premature atrial complexes Left axis deviation Abnormal ECG When compared with ECG of 07-Oct-2025 18:00, Criteria for Septal infarct are no longer Present Referred By: Sania Bach Electronically Signed By: IRENE LAUGHLIN MD
--- NOTE | 2025-10-07 | ECG_ITS ---
Test Reason : critical ekg Blood Pressure : */* mmHG Vent. Rate : 68 BPM Atrial Rate : 68 BPM P-R Int : 156 ms QRS Dur : 102 ms QT Int : 444 ms P-R-T Axes : 64 -38 2 degrees QTcB Int : 472 ms Normal sinus rhythm Left axis deviation Septal infarct , age undetermined Abnormal ECG When compared with ECG of 26-Sep-2025 14:52, Septal infarct is now Present T wave amplitude has increased in Anterolateral leads Referred By: Mily Mcdonnell Electronically Signed By: IRENE LAUGHLIN MD
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
[2025-10-07 08:00] VITALS: BP 147/72; PULSE 64; RESP 18; TEMP 36.2; O2SAT 98
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
[2025-10-07 08:24] LABS: Alanine Aminotransferase 29 U/L (0-40); Albumin Level 4.4 g/dL (3.5-5.0); Alkaline Phosphatase 59 U/L (39-117); Anion Gap 14 (12-20); Aspartate Amino Transferase 41 U/L (5-37); Blood Urea Nitrogen 14 mg/dL (9-16); Calcium 9.2 mg/dL (8.4-10.2); Carbon Dioxide 23 mmol/L (22-29); Chloride 107 mmol/L (96-108); Cholesterol 151 mg/dL (<200); Creatinine Clr Calc Pharmacy 74.4; Estimated Glomerular Filt Rate > 60; HDL Cholesterol 68 mg/dL (>40); Potassium 4.6 mmol/L (3.3-5.1); Sodium 139 mmol/L (135-145); Total Protein 7.1 g/dL (6.5-8.0); Triglycerides 109 mg/dL (<150)
[2025-10-07] MEDS: Ferrous Sulfate 324 MG TABLET.DR PO (09:07)
[2025-10-07 09:21] VITALS: BP 141/78; PULSE 79
[2025-10-07] MEDS: dilTIAZem HCL CD 240 MG CAP.ER.DEG PO (09:21)
[2025-10-07 09:22] VITALS: BP 141/78
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
[2025-10-07 19:53] VITALS: BP 170/95; PULSE 80; RESP 16; TEMP 36.3; O2SAT 97
--- NOTE | 2025-10-07 20:47 | PM.EVENT ---
Event Note Date of Service: 10/07/25 Event Note: ECG (Oct 07 - 6:00 pm) - result per ECG machine septal infarct, age undetermined - likely technical error due to misplacement of leads V1-V2. If no cardiopulmonary symptoms, no further interventions or cardiology consult indicated. Time Spent With Patient Time: Total time managing care of this patient today ____ minutes.
[2025-10-08 08:29] VITALS: BP 114/57; PULSE 77; O2SAT 97
[2025-10-08] MEDS: Ferrous Sulfate 324 MG TABLET.DR PO (08:48)
[2025-10-08] MEDS: dilTIAZem HCL CD 240 MG CAP.ER.DEG PO (08:48)
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
[2025-10-08 19:40] VITALS: BP 117/70; PULSE 67; RESP 16; TEMP 35.8; O2SAT 97
[2025-10-08 21:30] LABS: MANUAL DIFF FLAG NO
[2025-10-08 21:31] LABS: Hematocrit 31.7 % (42.0-52.0); Hemoglobin 11.1 g/dl (14.0-18.0); Imm Gran Abs Auto 0.01 X10*3/uL (0.00-0.03); Imm Gran Pct Auto 0.2 % (0.0-0.4); Lymphocytes Absolute Auto 1.1 X10*3/uL (1.2-4.9); Mean Corpuscular HGB Conc 35.0 g/dl (31.0-36.0); Mean Corpuscular Hemoglobin 31.3 pg (27.0-33.0); Mean Corpuscular Volume 89.3 fL (80.0-98.0); NRBC Abs Auto 0.000 X10*3/uL (0.0-0.012); NRBC Pct Auto 0.0 /100WBC (0.0-0.2); Platelet Count 178 X10*3/uL (160-400); Red Blood Count 3.55 X10*6/uL (4.60-5.80); White Blood Count 4.7 X10*3/uL (4.8-10.8)
[2025-10-09 07:59] VITALS: BP 126/72; PULSE 72; RESP 16; TEMP 36.8; O2SAT 96
[2025-10-09] MEDS: Ferrous Sulfate 324 MG TABLET.DR PO (08:09)
[2025-10-09] MEDS: dilTIAZem HCL CD 240 MG CAP.ER.DEG PO (08:09)
[2025-10-09] MEDS: Milk of Magnesia 30 ML ORAL.SUSP PO (08:18)
[2025-10-09 19:29] VITALS: BP 124/77; PULSE 73; TEMP 36.1; O2SAT 97
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
[2025-10-10] MEDS: Ferrous Sulfate 324 MG TABLET.DR PO (09:14)
[2025-10-10 09:15] VITALS: BP 154/76; BP 154/86; PULSE 67; RESP 16; TEMP 36.7; O2SAT 98
[2025-10-10 09:16] VITALS: BP 154/76; PULSE 67
[2025-10-10] MEDS: dilTIAZem HCL CD 240 MG CAP.ER.DEG PO (09:16)
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
[2025-10-10 19:46] VITALS: BP 127/62; PULSE 67; TEMP 35.3; O2SAT 97
[2025-10-11 06:00] VITALS: BMI 28.9
[2025-10-11 08:00] VITALS: BP 147/72; PULSE 73; RESP 18; TEMP 36; O2SAT 98
[2025-10-11] MEDS: Ferrous Sulfate 324 MG TABLET.DR PO (08:17)
[2025-10-11] MEDS: dilTIAZem HCL CD 240 MG CAP.ER.DEG PO (08:17)
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
[2025-10-11 20:00] VITALS: BP 131/66; PULSE 67; RESP 16; TEMP 35.4; O2SAT 97
[2025-10-12 06:00] VITALS: BMI 28.5
[2025-10-12] MEDS: Ferrous Sulfate 324 MG TABLET.DR PO (08:16)
[2025-10-12] MEDS: dilTIAZem HCL CD 240 MG CAP.ER.DEG PO (08:16)
[2025-10-12 08:40] VITALS: BP 144/70; PULSE 69; RESP 16; TEMP 36.4; O2SAT 96
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
[2025-10-12 20:18] VITALS: BP 154/80; PULSE 73; RESP 16; TEMP 36.6; O2SAT 96
[2025-10-13 07:57] VITALS: BP 126/72; PULSE 64; RESP 18; TEMP 36.1; O2SAT 98
[2025-10-13] MEDS: dilTIAZem HCL CD 240 MG CAP.ER.DEG PO (08:46)
[2025-10-13] MEDS: Ferrous Sulfate 324 MG TABLET.DR PO (08:46)
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
[2025-10-13 20:00] VITALS: BP 138/74; PULSE 68; RESP 16; TEMP 36.9; O2SAT 98
[2025-10-14] MEDS: Milk of Magnesia 30 ML ORAL.SUSP PO (00:05)
[2025-10-14 08:39] VITALS: BP 133/71; PULSE 62; RESP 16; TEMP 36.5; O2SAT 96
[2025-10-14] MEDS: dilTIAZem HCL CD 240 MG CAP.ER.DEG PO (08:41)
[2025-10-14] MEDS: Ferrous Sulfate 324 MG TABLET.DR PO (08:42)
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
[2025-10-14 20:00] VITALS: BP 110/58; PULSE 71; RESP 15; TEMP 36.6; O2SAT 94
[2025-10-15 09:07] VITALS: BP 105/64; PULSE 70; RESP 20; TEMP 36.4; O2SAT 96
[2025-10-15] MEDS: dilTIAZem HCL CD 240 MG CAP.ER.DEG PO (09:11)
[2025-10-15] MEDS: Ferrous Sulfate 324 MG TABLET.DR PO (09:11)
[2025-10-15 09:39] VITALS: BMI 29.3
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
[2025-10-16 06:00] VITALS: BMI 29.6
[2025-10-16 08:00] VITALS: BP 117/57; PULSE 73; RESP 16; TEMP 37.1; O2SAT 94
[2025-10-16] MEDS: dilTIAZem HCL CD 240 MG CAP.ER.DEG PO (08:27)
[2025-10-16] MEDS: Ferrous Sulfate 324 MG TABLET.DR PO (08:28)
[2025-10-16 13:26] VITALS: BP 114/65
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
[2025-10-16 19:20] VITALS: BP 106/70
[2025-10-16 20:00] VITALS: BP 106/65; PULSE 96; RESP 15; TEMP 36.8; O2SAT 71
[2025-10-17 08:15] VITALS: BP 94/59; PULSE 63; TEMP 36.6; O2SAT 96
[2025-10-17] MEDS: dilTIAZem HCL CD 240 MG CAP.ER.DEG PO (09:02)
[2025-10-17] MEDS: Ferrous Sulfate 324 MG TABLET.DR PO (09:02)
[2025-10-17 09:09] VITALS: BP 111/59
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
[2025-10-17 20:11] VITALS: BP 109/59; PULSE 71; RESP 18; TEMP 36.9; O2SAT 97
[2025-10-18 01:06] VITALS: BP 100/64
[2025-10-18 08:16] VITALS: BP 90/51; PULSE 62; TEMP 36.4; O2SAT 97
[2025-10-18] MEDS: Ferrous Sulfate 324 MG TABLET.DR PO (09:01)
[2025-10-18 09:12] VITALS: BP 89/54; PULSE 61
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
[2025-10-18 11:47] VITALS: BP 121/81; PULSE 66
[2025-10-18] MEDS: dilTIAZem HCL CD 240 MG CAP.ER.DEG PO (11:55)
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
== END 2025-10-18 12:40 | disposition home or self-care (01) | DRG 885 ==
PROVIDERS: Admitting Provider Psychiatry & Neurology Psychiatry; PCP Internal Medicine; Visit Provider Clinical Nurse Specialist Psychiatric/Mental Health, Adult
DX: F33.9 Major depressive disorder, recurrent, unspecified (principal); I50.32 Chronic diastolic (congestive) heart failure; I11.0 Hypertensive heart disease with heart failure; E11.9 Type 2 diabetes mellitus without complications; I25.10 Atherosclerotic heart disease of native coronary artery without angina pectoris; F43.10 Post-traumatic stress disorder, unspecified; I48.0 Paroxysmal atrial fibrillation; D50.9 Iron deficiency anemia, unspecified; I25.5 Ischemic cardiomyopathy; E78.5 Hyperlipidemia, unspecified; G89.21 Chronic pain due to trauma; V89.2XXS Person injured in unspecified motor-vehicle accident, traffic, sequela; Z65.3 Problems related to other legal circumstances; Z79.01 Long term (current) use of anticoagulants; Z79.899 Other long term (current) drug therapy
CPT/HCPCS: 36415; 80053; 80061; 83036; 84443; 85025; 93005

== ENCOUNTER 2025-10-06 22:11 | Outpatient (BNV) | payer MEDICARE, MEDICAID, SELFPAY | END 2025-10-07 18:00 | PROVIDERS: Admitting Provider Psychiatry & Neurology Psychiatry; PCP Internal Medicine; Visit Provider Internal Medicine Cardiovascular Disease | DX: I49.1 Atrial premature depolarization (principal) | CPT/HCPCS: 93010 ==

== ENCOUNTER → 2025-10-06 22:11 | Outpatient (BNV) | payer MEDICARE, MEDICAID, SELFPAY | PROVIDERS: Admitting Provider Psychiatry & Neurology Psychiatry; PCP Internal Medicine; Visit Provider Psychiatry & Neurology Psychiatry | DX: F33.2 Major depressive disorder, recurrent severe without psychotic features (principal); F43.11 Post-traumatic stress disorder, acute; G89.29 Other chronic pain; I10 Essential (primary) hypertension; I50.32 Chronic diastolic (congestive) heart failure; I48.0 Paroxysmal atrial fibrillation | CPT/HCPCS: 90792; 99231; 99232 ==

== ENCOUNTER → 2025-10-06 22:11 | Outpatient (BNV) | payer MEDICARE, MEDICAID, SELFPAY | PROVIDERS: Admitting Provider Psychiatry & Neurology Psychiatry; PCP Internal Medicine; Visit Provider Nurse Practitioner Family | DX: I10 Essential (primary) hypertension (principal); I50.32 Chronic diastolic (congestive) heart failure; I48.0 Paroxysmal atrial fibrillation | CPT/HCPCS: 99221; 99499 ==